=== PATIENT | female | born 1950 | race Caucasian/White ===

== ENCOUNTER 2017-12-22 10:56 | Outpatient (CLI) | payer BC, MEDICARE ==
[~2017-12-22] VITALS: Ht 157.5 cm; Wt 95.3 kg
[2017-12-22 11:20] VITALS: BP 141/70
[2017-12-22] MEDS ORDERED: vitamin a PO (12:04)
[2017-12-22] MEDS ORDERED: DULO60CA58 PO (12:04)
[2017-12-22] MEDS ORDERED: OMEP20TA7 PO (12:04)
[2017-12-22] MEDS ORDERED: VITA1TAB17 PO (12:04)
[2017-12-22] MEDS ORDERED: LORA10TA76 PO (12:04)
[2017-12-22] MEDS ORDERED: ASCO10006 PO (12:04)
[2017-12-22] MEDS ORDERED: CALC-697 PO (12:04)
[2017-12-22] MEDS ORDERED: ASPI-586 PO (12:04)
[2017-12-22] MEDS ORDERED: ANAS1TAB7 PO (12:04)
[2017-12-22] MEDS ORDERED: VITA400C58 PO (12:04)
[2018-01-19] MEDS ORDERED: ACHD5005 PO (09:42)
[2018-01-19] MEDS ORDERED: CEPH500C PO (09:42)
== END 2017-12-22 11:30 | disposition home or self-care (01) ==
LOC: PREOP 10:56
PROVIDERS: ATTEND Podiatrist Foot & Ankle Surgery
DX: Z01.818 Encounter for other preprocedural examination (principal); Z11.2 Encounter for screening for other bacterial diseases; M20.21 Hallux rigidus, right foot
CPT/HCPCS: 87081

== ENCOUNTER 2018-01-19 06:25 | Day surgery (SDC) | payer BC, MEDICARE ==
[~2018-01-19] VITALS: Ht 157.5 cm; Wt 95.3 kg
[~2018-01-19 06:25] MED LIST: ANAS1TAB7 PO; ASCO10006 PO; ASPI-586 PO; CALC-697 PO; DULO60CA58 PO; LORA10TA76 PO; OMEP20TA7 PO; VITA1TAB17 PO; VITA400C58 PO; vitamin a PO
[2018-01-19 06:30] VITALS: BP 144/78
[2018-01-19] MEDS ORDERED: ceFAZolin INJECTION 1,000 MG in NS (IVPB) 50 ML IV ONE (06:30)
--- OUTSIDE RECORDS SUMMARY | 2018-01-19 06:38 | XMS REPORT ---
Author Author [email or web address] Medical Staff Organization [facility] Address [address], [place] [address] Phone [phone] Summary purpose TRANSITION OF CARE AUTO GENERATION Chief Complaint and Reason for Visit No authorized Reason for Visit (Admitting Diagnosis) is available for this visit. Problem list No authorized problems tracked for continuity of care are available for this visit. Encounters No authorized problems tracked for encounter diagnoses are available for this visit. 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 CT ABDOMEN AND PELVIS WITH [id number] HOURS Axial scans were reconstructed at 5 mm intervals following administration of oral and intravenous contrast. 100 mL Isovue-300 was utilized for intravenous enhancement. Comparison is made with the prior study of 10/10/2015. The liver, spleen, pancreas, and adrenal glands are normal. The gallbladder and bile ducts are unremarkable. There are small benign cortical and parapelvic renal cysts bilaterally. There are no solid renal masses. There is no mass or adenopathy in the abdomen or pelvis. The abdominal aorta shows minimal atherosclerosis. There is no free air or ascites. There are changes of prior hysterectomy. The bladder is normal. IMPRESSION: Benign renal cysts. No evidence of metastatic disease in the abdomen or pelvis. MD KARIME Mcintosh/nh01/02/2016 10:05:00 / 01/02/2016 10:12:31 cc:Dr. 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 CT ABDOMEN AND PELVIS WITH [id number] HOURS Axial scans were reconstructed at 5 mm intervals following administration of oral and intravenous contrast. 100 mL Isovue-300 was utilized for intravenous enhancement. Comparison is made with the prior study of 10/10/2015. The liver, spleen, pancreas, and adrenal glands are normal. The gallbladder and bile ducts are unremarkable. There are small benign cortical and parapelvic renal cysts bilaterally. There are no solid renal masses. There is no mass or adenopathy in the abdomen or pelvis. The abdominal aorta shows minimal atherosclerosis. There is no free air or ascites. There are changes of prior hysterectomy. The bladder is normal. IMPRESSION: Benign renal cysts. No evidence of metastatic disease in the abdomen or pelvis. Aaron Ryan MD MWRuben/vt01/02/2016 10:05:00 / 01/02/2016 10:12:31 cc:Dr. Aaron Lopez at [facility] HEATHER Taver[place] This document has been electronically Signed by: AARON RYAN MD On: Jan 02 2016 11:39A Result Amended on 2016-01-02 at 11:39:11. Previous status was [place]. History of procedures No procedures recorded for this patient visit. Functional status No functional or cognitive status observations are available for this visit. Vital signs No authorized vital signs are available for this visit. Social history No Social History or smoking status observations were recorded for this visit. ( Unknown if ever smoked.) Treatment Plan No treatment plan text is available for this visit. Hospital discharge instructions No discharge instruction text is available for this visit.
--- OUTSIDE RECORDS SUMMARY | 2018-01-19 06:38 | XMS REPORT ---
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 CT ABDOMEN AND PELVIS WITH [id number] HOURS Axial scans were reconstructed at 5 [...] / 01/02/2016 10:12:31 cc:Dr. 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 CT ABDOMEN AND PELVIS WITH [id number] HOURS Axial scans were reconstructed at 5 [...] / 01/02/2016 10:12:31 cc:Dr. Aaron Lopez at [facility] [place] This document has been electronically Signed by: AARON RYAN MD On: Jan 02 2016 11:39A Result Amended on 2016-01-02 at 11:39:11. Previous status was [place]. History of procedures No procedures recorded for [...]
--- OUTSIDE RECORDS SUMMARY | 2018-01-19 06:38 | XMS REPORT ---
Author Author [facility] [employer] [facility] Medical Staff Organization [facility] Address [address], [place] [address] Phone [phone] Care Team Providers Care Photograph Enlarger Name Role Phone FERMÍN THOMSON MD PP [phone] Summary purpose TRANSITION OF CARE AUTO GENERATION [...] visit Relevant diagnostic tests and/or laboratory data No authorized results are available for this patient visit History of procedures No procedures recorded for this patient visit. Functional status Functional Status Finding Observation Time Hearing Prob Loc none : Vision Problems yes :00 Vision Correct Dev glasses :00 Ambulation Asst Dev none :00 Bathing Assistance none :00 Eating Assistance none :00 Dressing Assistance none :00 Toileting Assistance minimal :00 Transfer Assistance minimal :00 Decline Slf Care/Mob no :00 Phys Cond Stable yes :00 Oxygen no :05 Nursing Note Pt amb off unit in good condition, denies any needs. 04-23-2015 13:10 Cognitive Status Finding Observation Time Oriented To Date 5 Yes :[address] 5 Yes :00 Name 3 Objects 3 Yes :00 Name Object in Rm 2 Yes :00 Recall 3 Objects 3 Yes : Repeats a Phrase 1 Yes : Follows Verbal Direc 3 Yes : Follows Written Dire 1 Yes : Write a Sentance 1 Yes : Draw an Object 1 Yes : Mini Mental Total 25 points : Learning Ability comprehends well : Neurological no :10 Psychological no :10 Physical no :10 Hearing no : Home Theatre Technician Needed no : Sign Language no : Emotional no :10 Vision yes :10 Laguage no :10 Financial no :10 Vital signs Type Value Date Respiration Rate 20breaths per minute : Pulse 90beats per minute : Oxygen Saturation 97% :05 BP Systolic 152mmHg :05 BP Diastolic 70mmHg :05 Temperature 99.5F :05 Height 62inches :18 Weight 196LB :18 Social history No Social History or smoking status observations were recorded for this visit. ( Unknown if ever smoked.) Treatment Plan No treatment plan text is available for this visit. Hospital discharge instructions Valuables yes Valuable Type billfold/purse PNE Vac March 2015 Flu Vac March 2015 Tetanus Vac 2013
--- OUTSIDE RECORDS SUMMARY | 2018-01-19 06:38 | XMS REPORT ---
Author Author [facility] Medical Staff Organization [facility] Address [address], [place] [address] Phone [phone] Summary purpose TRANSITION OF CARE AUTO GENERATION [...] Relevant diagnostic tests and/or laboratory data RESULTS Chemistry [id number]:24:00 Result Normal Range Units Sodium 138 134-145 mEq/l Potassium 4.3 3.5-5.1 mEq/l Chloride 104 98-107 mEq/l CO2 26.7 22-28 mEq/l Glucose 94 70-105 mg/dl BUN H 23 7-18 mg/dl Creatinine 0.78 0.6-1.0 mg/dl Calcium 9.0 8.4-10.2 mg/dl Osmolality L 279.1 280-300 mOsm/L Anion GAP L 7.3 8-16 BUN/Creatinine Ratio H 29.5 10-20 Estimated GFR 74 >=60 mL/min/1.7 Reference Lab ([facility]) [id number]:00 Result Normal Range Units CA 125 8 <35 U/mL This test was performed using the [place] Chemiluminescent method. Values obtained from different assay methods cannot be used interchangeably. CA 125 levels, regardless of value, should not be interpreted as absolute evidence of the presence or absence of disease. TEST PERFORMED AT: [facility] [address] [place] [address] RANGEL RIVERA DO,MPH Radiology Results [id number]:53:00 CT ABD/PEL W CONTRAST PACs Image DATE OF EXAM: 2015 [id number] ABD/PELV W CONTRAST : RADIOLOGY REPORT DATE OF SERVICE: 10/10/15 HISTORY: Followup breast carcinoma and fallopian tube carcinoma CT ABDOMEN AND PELVIS WITH [id number] HOURS Axial scans were obtained at 5 mm intervals following administration of oral and intravenous contrast. 100 mL Isovue-300 was utilized for intravenous enhancement. The liver and spleen are normal. The pancreas and adrenal glands are normal. There are benign cortical renal cysts bilaterally and benign parapelvic cysts in the left kidney. There are no solid renal masses. The abdominal and pelvic bowel loops are normal. There is no abdominal or pelvic mass or lymphadenopathy. There has been prior hysterectomy. The bladder is normal. IMPRESSION: Benign renal cysts. No evidence of metastatic disease or other significant abdominal or pelvic abnormality. MD KARIME Mcintosh/nv10/10/2015 14:54:00 / 10/10/2015 15:01:42 cc:Dr. Aaron Toledo This document has been electronically Signed by: On: DATE OF EXAM: 2015 [id number] ABD/PELV W CONTRAST : RADIOLOGY REPORT DATE OF SERVICE: 10/10/15 HISTORY: Followup breast carcinoma and fallopian tube carcinoma CT ABDOMEN AND PELVIS WITH [id number] HOURS Axial scans were obtained at 5 mm intervals following administration of oral and intravenous contrast. 100 mL Isovue-300 was utilized for intravenous enhancement. The liver and spleen are normal. The pancreas and adrenal glands are normal. There are benign cortical renal cysts bilaterally and benign parapelvic cysts in the left kidney. There are no solid renal masses. The abdominal and pelvic bowel loops are normal. There is no abdominal or pelvic mass or lymphadenopathy. There has been prior hysterectomy. The bladder is normal. IMPRESSION: Benign renal cysts. No evidence of metastatic disease or other significant abdominal or pelvic abnormality. MD KARIME Mcintosh/khris10/10/2015 14:54:00 / 10/10/2015 15:01:42 cc:Dr. Aaron Toledo This document has been electronically Signed by: AARON BRADLEY MD On: :53P Result Amended on 2015-10-10 at 15:53:38. Previous status was [place]. History of procedures Procedure Code Code Type Description Date Performed Performing Physician 21847 CPT-4 IMMUNOASSAY, TUMOR, CA 125 10-10-2015 AARON TOLEDO 69504 CPT-4 METABOLIC PANEL TOTAL CA 10-10-2015 AARON TOLEDO 72669 CPT-4 CT ABDOMEN&PELVIS W/CONTRAST 10-10-2015 AARON TOLEDO 60083 CPT-4 ROUTINE VENIPUNCTURE 10-10-2015 AARON TOLEDO Functional status No functional or cognitive status [...]
--- OUTSIDE RECORDS SUMMARY | 2018-01-19 06:38 | XMS REPORT ---
Author Author [facility] [employer] [facility] Medical Staff Organization [facility] Address [address], [place] [address] Phone [phone] Care Team Providers Care Tester Electronic Scale Name Role Phone FERMÍN THOMSON MD PP [phone] Summary purpose TRANSITION OF CARE AUTO GENERATION [...] :10 Physical no :10 Hearing no : Strand Galvanizer Needed no : Sign Language no : [...]
--- OUTSIDE RECORDS SUMMARY | 2018-01-19 06:38 | XMS REPORT ---
Author Author [facility] Medical Staff Organization [facility] Address [address], [place] [address] Phone [phone] Summary purpose TRANSITION OF CARE AUTO GENERATION [...] tests and/or laboratory data RESULTS Radiology Results [id number]:55:00 CT ABD/PEL W CONTRAST PACs Image DATE OF EXAM: 2015 [id number] ABD/PELV W CONTRAST : RADIOLOGY REPORT DATE OF SERVICE: 07/14/15 HISTORY: Patient is followup breast cancer of the right breast and cancer of the right fallopian tube with diagnosis in 2014. Patient received chemotherapy and radiation. CT ABDOMEN AND PELVIS WITH [id number] HOURS Images were obtained from diaphragms to below symphysis pubis. The liver shows moderate fatty infiltration diffusely. No focal lesion is seen in the liver. The gallbladder fails to show any calcified stones or wall thickening. There is no biliary ductal dilatation. The spleen is normal. The lung bases are clear. The stomach and pancreas are normal. Adrenal glands are normal. No aneurysm of aorta is seen. Both kidneys fail to show any calculi or hydronephrosis. There are several small cysts in each kidney as well as fairly prominent parapelvic cyst on the left and minimal parapelvic cyst on the right. The ureters are normal. Bowel is normal. The appendix has been removed. There has been hysterectomy and oophorectomy. No mesenteric mass or ascites are seen. No adenopathy is identified in the abdomen or pelvis. IMPRESSION: Negative study with no evidence of metastatic disease. There is fatty infiltration of the liver diffusely, but without focal lesion and parapelvic cysts involving kidneys. DO CARLOS Beltran/nm 07/14/2015 09:17: / 07/14/2015 09:27:34 cc:Dr. Aaron Gomez This document has been electronically Signed by: On: DATE OF EXAM: 2015 [id number] ABD/PELV W CONTRAST : RADIOLOGY REPORT DATE OF SERVICE: 07/14/15 HISTORY: Patient is followup breast cancer of the right breast and cancer of the right fallopian tube with diagnosis in 2014. Patient received chemotherapy and radiation. CT ABDOMEN AND PELVIS WITH [id number] HOURS Images were obtained from diaphragms to below symphysis pubis. The liver shows moderate fatty infiltration diffusely. No focal lesion is seen in the liver. The gallbladder fails to show any calcified stones or wall thickening. There is no biliary ductal dilatation. The spleen is normal. The lung bases are clear. The stomach and pancreas are normal. Adrenal glands are normal. No aneurysm of aorta is seen. Both kidneys fail to show any calculi or hydronephrosis. There are several small cysts in each kidney as well as fairly prominent parapelvic cyst on the left and minimal parapelvic cyst on the right. The ureters are normal. Bowel is normal. The appendix has been removed. There has been hysterectomy and oophorectomy. No mesenteric mass or ascites are seen. No adenopathy is identified in the abdomen or pelvis. IMPRESSION: Negative study with no evidence of metastatic disease. There is fatty infiltration of the liver diffusely, but without focal lesion and parapelvic cysts involving kidneys. DO CARLOS Beltran/khris 07/14/2015 09:17: / 07/14/2015 09:27:34 cc:Dr. Aaron Gomez This document has been electronically Signed by: BONNY COOLEY DO On: 20152:55P Result Amended on 2015-07-14 at 14:55:13. Previous status was [place]. History of procedures No procedures recorded for [...]
--- OUTSIDE RECORDS SUMMARY | 2018-01-19 06:38 | XMS REPORT ---
Author Author [facility] Medical Staff Organization [facility] Address [address], [place] [address] Phone [phone] Summary purpose TRANSITION OF CARE AUTO GENERATION [...] diagnostic tests and/or laboratory data RESULTS Chemistry [id number]:24:00 Result Normal Range Units Sodium 138 134-145 mEq/l Potassium 4.3 3.5-5.1 mEq/l Chloride 104 98-107 mEq/l CO2 26.7 22-28 mEq/l Glucose 94 70-105 mg/dl BUN H 23 7-18 mg/dl Creatinine 0.78 0.6-1.0 mg/dl Calcium 9.0 8.4-10.2 mg/dl Osmolality L 279.1 280-300 mOsm/L Anion GAP L 7.3 8-16 BUN/Creatinine Ratio H 29.5 10-20 Estimated GFR 74 >=60 mL/min/1.7 Radiology Results [id number]:00 CT ABD/PEL W CONTRAST PACs Image DATE OF EXAM: 2015 [id number] ABD/PELV W CONTRAST : RADIOLOGY REPORT DATE OF SERVICE: 10/10/15 HISTORY: Followup breast carcinoma and fallopian tube carcinoma CT ABDOMEN AND PELVIS WITH [id number] HOURS Axial scans were obtained at 5 [...] significant abdominal or pelvic abnormality. MD KARIME Mcintosh/va10/10/2015 14:54:00 10/10/2015 15:01:42 cc:Dr. Aaron Gomez This document has been electronically Signed by: On: DATE OF EXAM: 2015 [id number] ABD/PELV W CONTRAST : RADIOLOGY REPORT DATE OF SERVICE: 10/10/15 HISTORY: Followup breast carcinoma and fallopian tube carcinoma CT ABDOMEN AND PELVIS WITH [id number] HOURS Axial scans were obtained at 5 [...] significant abdominal or pelvic abnormality. MD KARIME Mcintosh/va10/10/2015 14:54:00 / 10/10/2015 15:01:42 cc:Dr. Aaron Gomez This document has been electronically Signed by: AARON BRADLEY MD On: 20153:53P Result Amended on 2015-10-10 at 15:53:38. Previous status was [place]. History of procedures No procedures recorded for [...]
--- OUTSIDE RECORDS SUMMARY | 2018-01-19 06:38 | XMS REPORT ---
Author Author [facility] Medical Staff Organization [facility] Address [address], [place] [address] Phone [phone] Summary purpose TRANSITION OF CARE AUTO GENERATION [...] tests and/or laboratory data RESULTS Radiology Results [id number]:55:00 CT ABD/PEL W CONTRAST PACs Image DATE OF EXAM: 2015 [id number] ABD/PELV W CONTRAST : RADIOLOGY REPORT DATE OF SERVICE: 07/14/15 HISTORY: Patient is followup breast cancer of the right breast and cancer of the right fallopian tube with diagnosis in 2014. Patient received chemotherapy and radiation. CT ABDOMEN AND PELVIS WITH [id number] HOURS Images were obtained from diaphragms to [...] focal lesion and parapelvic cysts involving kidneys. Bonny Cooley DO /ak 07/14/2015 09:17: / 07/14/2015 09:27:34 cc:Dr. Aaron Toledo This document has been electronically Signed by: On: DATE OF EXAM: 2015 [id number] ABD/PELV W CONTRAST : RADIOLOGY REPORT DATE OF SERVICE: 07/14/15 HISTORY: Patient is followup breast cancer of the right breast and cancer of the right fallopian tube with diagnosis in 2014. Patient received chemotherapy and radiation. CT ABDOMEN AND PELVIS WITH [id number] HOURS Images were obtained from diaphragms to [...] focal lesion and parapelvic cysts involving kidneys. Bonny Cooley DO /ak 07/14/2015 09:17: / 07/14/2015 09:27:34 cc:Dr. Aaron Toledo This document has been electronically Signed by: BONNY COOLEY DO On: 20152:55P Result Amended on 2015-07-14 at 14:55:13. Previous status was [place]. History of procedures Procedure Code Code Type Description Date Performed Performing Physician 78709 CPT-4 CT ABDOMEN&PELVIS W/CONTRAST 07-14-2015 AARON TOLEDO Q9967 CPT-4 LOCM 300-399MG/ML IODINE,1ML 07-14-2015 AARON TOLEDO Functional status No functional or [...]
--- OUTSIDE RECORDS SUMMARY | 2018-01-19 06:39 | XMS REPORT | Clinical Summary ---
Author Author Admin, Ez Organization [facility] Address Unknown Phone Unavailable Allergies, Adverse Reactions, Alerts Allergy Name Reaction Description Start Date Severity Status Provider SULFA facial swelling Critical Active Jocelyne Naff CAUSTIC PREPARER Conditions or Problems Problem Name Problem Code Onset Date Status Entry Date Provider Comment Standard Description Annotate G E R D 530.81 Active Jocelyne Naff CAUSTIC PREPARER Esophageal reflux FH COLON CANCER V16.0 Active Jocelyne Naff CAUSTIC PREPARER Family history of malignant neoplasm of gastrointestinal tract ESOPHAGEAL STRICTURE 530.3 Resolved Marta Viramontes APRN Stricture and stenosis of esophagus CAROTID ARTERY STENOSIS, RIGHT 433.10 Active Rikki Stearns PA Occlusion and stenosis of carotid artery, without mention of cerebral infarction HEALTH SCREENING V70.0 Active Rose Darnell LPN Routine general medical examination at a health care facility Benign positional vertigo 386.11 Resolved Marta Viramontes APRN Benign paroxysmal positional vertigo Breast microcalcification 793.81 Ruled out Jennifer Chun MD PhD Mammographic microcalcification Abnormal Mammogram 793.80 Resolved Jennifer Chun MD PhD Abnormal mammogram, unspecified Routine gynecological examination V72.31 Resolved Marta Viramontes APRN Routine gynecological examination Postmenopausal status V49.81 Active Chante REYES Asymptomatic postmenopausal status (age-related) (natural) Breast cancer 174.9 Resolved Marta Viramontes APRN Malignant neoplasm of breast (female), unspecified Vitamin D deficiency 268.9 Active Jennifer Chun MD PhD Unspecified vitamin D deficiency Soft tissue infection 528.9 Resolved Rikki Harms PA Other and unspecified diseases of the oral soft tissues Abscess, skin 682.9 Resolved Rikki Harms PA Cellulitis and abscess of unspecified sites Cellulitis, 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.9 Resolved Rikki Harms PA Cellulitis and abscess of unspecified sites Rash 782.1 Resolved Rikki Harms PA Rash and other nonspecific skin eruption Adenocarcinoma, fallopian tube, 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 Kailee Rachel RMA Malignant neoplasm of fallopian tube Adenocarcinoma, right breast 174.9 Active Alfreda Anthony SHEARING MACHINE TENDER Malignant neoplasm of breast (female), unspecified Female breast cancer, right upper-outer quadrant 174.4 Resolved Marta Yokum SUGARCANE RESEARCH TECHNICIAN Malignant neoplasm of upper-outer quadrant of female breast Upper respiratory infection, acute 465.9 Resolved Rikki Harms PA Acute upper respiratory infections of unspecified site Chemotherapy V58.11 Resolved Rikki Harms PA Encounter for antineoplastic chemotherapy Cough, chronic 786.2 Resolved Rikki Harms PA Cough Ingrown toenail, left 703.0 Resolved Marta Yokum SUGARCANE RESEARCH TECHNICIAN Ingrowing nail cellulitis, finger, right 681.00 Resolved Marta Yokum SUGARCANE RESEARCH TECHNICIAN Cellulitis and abscess of finger, unspecified Cough 786.2 Resolved Marta Yokum SUGARCANE RESEARCH TECHNICIAN Cough Bronchitis, acute 466.0 Resolved Marta Yokum SUGARCANE RESEARCH TECHNICIAN Acute bronchitis Preoperative examination V72.84 Active Marta Yokum SUGARCANE RESEARCH TECHNICIAN Preoperative examination, unspecified Body Mass Index 39.0-39.9 Adult Active Marta Yokum SUGARCANE RESEARCH TECHNICIAN Body Mass Index 39.0-39.9, adult Encounter for general adult medical examination without abnormal findings V70.0 Active Marta Viramontes APRN Routine general medical examination at a health care facility Obesity, BMI 35-39.9, adult 278.00 Active Marta Viramontes APRN Obesity, unspecified Asthma, intermittent, mild 493.90 Active Marta Viramontes SUGARCANE RESEARCH TECHNICIAN Asthma, unspecified ESOPHAGEAL STRICTURE ICD-530.3 Inactive Marta Viramontes SUGARCANE RESEARCH TECHNICIAN Benign positional vertigo ICD-386.11 Inactive Marta Viramontes SUGARCANE RESEARCH TECHNICIAN Abnormal Mammogram ICD-793.80 Inactive Jennifer Chun MD PhD Routine gynecological examination ICD-V72.31 Inactive Marta Viramontes SUGARCANE RESEARCH TECHNICIAN Breast cancer ICD-174.9 Inactive Marta Viramontes SUGARCANE RESEARCH TECHNICIAN Breast microcalcification ICD-793.81 Inactive Jennifer Chun MD PhD Cellulitis, 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 Rikki Harms PA Rash ICD-782.1 Inactive Rikki Harms PA Female breast cancer, right upper-outer quadrant ICD-174.4 01/05 Inactive Marta Maganaum SUGARCANE RESEARCH TECHNICIAN Upper respiratory infection, acute ICD-465.9 Inactive Rikki Harms PA Chemotherapy ICD-V58.11 Inactive Rikki Harms PA Cough, chronic ICD-786.2 Inactive Rikki Harms PA Soft tissue infection ICD-528.9 Inactive Rikki Harms PA cellulitis, finger, right ICD-681.00 Inactive Marta Viramontes CORONA Cough ICD-786.2 Inactive Marta Viramontes CORONA Bronchitis, acute ICD-466.0 Inactive Marta Viramontes CORONA Abscess, skin ICD-682.9 Inactive Rikki GRANADOS Ingrown toenail, left ICD-703.0 Inactive Marta Viramontes CORONA Medication List Medication Instructions Start Date Stop Date Generic Name NDC Status Provider Patient Instruction DULOXETINE HCL 60 MG ORAL CAPSULE DELAYED RELEASE PARTICLES 1 pill daily, for depression DULOXETINE HCL 91573185370 Active Marta Viramontes APRN Active VITAMIN E 400 UNIT ORAL CAPSULE 2 twice a day VITAMIN E 68589338373 Active Marta Viramontes APRN Active NIACIN ER 500 MG ORAL TABLET EXTENDED RELEASE Take one daily NIACIN 56838302258 Active Marta Viramontes APRN Active BIOTIN 1000 MCG ORAL TABLET Take one daily BIOTIN 89732189533 No Longer Active Marta Viramontes APRN Active B COMPLEX 50 ORAL TABLET EXTENDED RELEASE Take one by mouth daily B COMPLEX VITAMINS 55819147739 Active Marta Viramontes APRN Active TUSSIONEX PENNKINETIC ER 10-8 MG/5ML ORAL SUSPENSION EXTENDED RELEASE 5ml po q12hr PRN Cough HYDROCOD POLST-CHLORPHEN POLST 46567774194 No Longer Active Marta Viramontes APRN Active PROAIR HFA 108 (90 BASE) MCG/ACT INHALATION AEROSOL SOLUTION 2 puffs four times a day as needed ALBUTEROL SULFATE 79142892921 No Longer Active Marta Viramontes APRN Active DOXYCYCLINE HYCLATE 100 MG ORAL CAPSULE 1 cap by mouth twice daily DOXYCYCLINE HYCLATE 24370426762 No Longer Active Marta Yokum SUGARCANE RESEARCH TECHNICIAN Active PROAIR HFA 108 (90 BASE) MCG/ACT INHALATION AEROSOL SOLUTION 2 puffs four times a day as needed ALBUTEROL SULFATE 84438191727 Active Marta Yokum SUGARCANE RESEARCH TECHNICIAN Active AUGMENTIN 875-125 MG ORAL TABLET Take one tablet twice a day with food 04/25 AMOXICILLIN-POT CLAVULANATE 24956608801 No Longer Active Marta Yokum SUGARCANE RESEARCH TECHNICIAN Active TESSALON PERLES 100 MG ORAL CAPSULE 1 to 2 tablets by mouth 3 times daily as needed for cough BENZONATATE 28651127275 No Longer Active Marta Yokum SUGARCANE RESEARCH TECHNICIAN Active AUGMENTIN 875-125 MG ORAL TABLET 1 po BID x 10 days AMOXICILLIN-POT CLAVULANATE 18007172928 No Longer Active Marta Yokum SUGARCANE RESEARCH TECHNICIAN Active MEDROL 4 MG ORAL TABLET THERAPY PACK 6 tabs on day 1, 5 tabs on day 2, 4 tabs on day 3, 3 tabs on day 4, 2 tabs on day 5, 1 tab on day 6 METHYLPREDNISOLONE 37359020784 No Longer Active Marta Yokum SUGARCANE RESEARCH TECHNICIAN Active KEFLEX 500 MG ORAL CAPSULE 1 po qid CEPHALEXIN 92364801989 No Longer Active Marta Yokum SUGARCANE RESEARCH TECHNICIAN Active TUSSIONEX PENNKINETIC ER 10-8 MG/5ML ORAL SUSPENSION EXTENDED RELEASE 5ml po q12hr PRN Cough HYDROCOD POLST-CHLORPHEN POLST 47635999009 No Longer Active Marta Yokum SUGARCANE RESEARCH TECHNICIAN Active VITAMIN D3 67036 UNIT ORAL CAPSULE 1 qWeek x 4 months for vitamin D deficiency CHOLECALCIFEROL 25480250522 Active Marta Yokum SUGARCANE RESEARCH TECHNICIAN Active CEPHALEXIN 500 MG ORAL CAPSULE Take one four times a day CEPHALEXIN 19060136422 No Longer Active Marta Yokum SUGARCANE RESEARCH TECHNICIAN Active VITAMIN C 500 MG ORAL CAPSULE Take one daily ASCORBIC ACID 89903265141 Active Rikki Harms PA Active BENZONATATE 200 MG ORAL CAPSULE One capsule tid. BENZONATATE 44788044119 No Longer Active Rikki Harms PA Active FLONASE ALLERGY RELIEF 50 MCG/ACT NASAL SUSPENSION spray twice in each nostril one time daily FLUTICASONE PROPIONATE 35884662107 No Longer Active Rikki Harms PA Active TUSSIONEX PENNKINETIC ER 10-8 MG/5ML ORAL SUSPENSION EXTENDED RELEASE 5ml po q12hr PRN Cough HYDROCOD POLST-CHLORPHEN POLST 25772351402 No Longer Active Rikki Harms PA Active ALBUTEROL SULFATE (2.5 MG/3ML) 0.083% INHALATION NEBULIZATION SOLUTION one vial per nebulizer every 4-6 hours as needed ALBUTEROL SULFATE 73636733132 No Longer Active Rikki Harms PA Active MEDROL 4 MG ORAL TABLET THERAPY PACK 6 tabs on day 1, 5 tabs on day 2, 4 tabs on day 3, 3 tabs on day 4, 2 tabs on day 5, 1 tab on day 6 METHYLPREDNISOLONE 92268816587 No Longer Active Rikki Harms PA Active LEVAQUIN 750 MG ORAL TABLET 1 po qd x 7 days LEVOFLOXACIN 87811302099 No Longer Active Rikki Harms PA Active LEVAQUIN 500 MG ORAL TABLET Take one tablet daily LEVOFLOXACIN 25804920133 No Longer Active Rikki Harms PA Active LEVAQUIN 500 MG ORAL TABLET 1 tablet by mouth daily LEVOFLOXACIN 02084492240 No Longer Active Marta Viramontes SUGARCANE RESEARCH TECHNICIAN Active CHERATUSSIN AC 100-10 MG/5ML ORAL SYRUP 1 tsp by mouth every 4 hours as needed for cough GUAIFENESIN-CODEINE 19766056040 No Longer Active Rikki Harms PA Active MUPIROCIN 2 % EXTERNAL OINTMENT Use in each nostril in am and pm MUPIROCIN 15498921865 No Longer Active Rikki Harms PA Active DOXYCYCLINE HYCLATE 100 MG ORAL CAPSULE Take one bid DOXYCYCLINE HYCLATE 04260513046 No Longer Active Rikki Harms PA Active CLARITIN 10 MG ORAL TABLET 1prn LORATADINE 87072927861 No Longer Active Jocelyne Naff CAUSTIC PREPARER Active ASPIRIN 81 MG ORAL TABLET 1qd ASPIRIN 89953564759 No Longer Active Jocelyne Naff CAUSTIC PREPARER Active DOXYCYCLINE HYCLATE 100 MG ORAL CAPSULE 1 cap by mouth twice daily DOXYCYCLINE HYCLATE 57983419835 No Longer Active Rikki Harms PA Active VITAMIN D3 91853 UNIT ORAL CAPSULE 1 pill by mouth weekly, for vitamin D deficiency CHOLECALCIFEROL 00611151151 No Longer Active Jennifer Chun MD PhD Active ANASTROZOLE 1 MG ORAL TABLET Take one by mouth daily ANASTROZOLE 80776814522 Active Jennifer Chun MD PhD Active ZITHROMAX 250 MG ORAL TABLET 2 po today, then 1 po q days 2-5 AZITHROMYCIN 13246755156 No Longer Active Rikki Harms PA Active MECLIZINE HCL 25 MG ORAL TABLET 1 prn MECLIZINE HCL 64921186382 No Longer Active Solomon Alamo MD Active CHERATUSSIN AC SYRUP prn as directed GUAIFENESIN- CODEINE SYRP 13725846957 No Longer Active Rikki Harms PA Active MULTIVITAMINS TABS 1qd MULTIPLE VITAMIN 64740191235 No Longer Active Rikki Harms PA Active OMEPRAZOLE 20 MG ORAL CAPSULE DELAYED RELEASE 1 PO Q D OMEPRAZOLE 74213296272 Active AMY Snow Active ZITHROMAX Z-CAROLYN 250 MG ORAL TABLET 2x1day,7y0spks AZITHROMYCIN 53549448813 No Longer Active Jocelyne Naff CAUSTIC PREPARER Active CHERATUSSIN AC SYRUP prn as directed CHERATUSSIN AC SYRUP GUAIFENESIN-CODEINE SYRP Inactive ALBUTEROL SULFATE (2.5 MG/3ML) 0.083% INHALATION NEBULIZATION SOLUTION one vial per nebulizer every 4-6 hours as needed ALBUTEROL SULFATE (2.5 MG/3ML) 0.083% INHALATION NEBULIZATION SOLUTION 118211 ALBUTEROL SULFATE Inactive CHERATUSSIN AC 100-10 MG/5ML ORAL SYRUP 1 tsp by mouth every 4 hours as needed for cough CHERATUSSIN AC 100-10 MG/5ML ORAL SYRUP 828451 GUAIFENESIN-CODEINE Inactive CLARITIN 10 MG ORAL TABLET 1prn CLARITIN 10 MG ORAL TABLET 105902 LORATADINE Inactive DOXYCYCLINE HYCLATE 100 MG ORAL CAPSULE Take one bid DOXYCYCLINE HYCLATE 100 MG ORAL CAPSULE 5727582 DOXYCYCLINE HYCLATE Inactive DOXYCYCLINE HYCLATE 100 MG ORAL CAPSULE 1 cap by mouth twice daily DOXYCYCLINE HYCLATE 100 MG ORAL CAPSULE 8171541 DOXYCYCLINE HYCLATE Inactive DOXYCYCLINE HYCLATE 100 MG ORAL CAPSULE 1 cap by mouth twice daily DOXYCYCLINE HYCLATE 100 MG ORAL CAPSULE 6748958 DOXYCYCLINE HYCLATE Inactive KEFLEX 500 MG ORAL CAPSULE 1 po qid KEFLEX 500 MG ORAL CAPSULE 629292 CEPHALEXIN Inactive MULTIVITAMINS TABS 1qd MULTIVITAMINS TABS MULTIPLE VITAMIN Inactive ASPIRIN 81 MG ORAL TABLET 1qd ASPIRIN 81 MG ORAL TABLET ASPIRIN Inactive CEPHALEXIN 500 MG ORAL CAPSULE Take one four times a day CEPHALEXIN 500 MG ORAL CAPSULE 368306 CEPHALEXIN Inactive MUPIROCIN 2 % EXTERNAL OINTMENT Use in each nostril in am and pm MUPIROCIN 2 % EXTERNAL OINTMENT 555560 MUPIROCIN Inactive TESSALON PERLES 100 MG ORAL CAPSULE 1 to 2 tablets by mouth 3 times daily as needed for cough TESSALON PERLES 100 MG ORAL CAPSULE 535704 BENZONATATE Inactive MECLIZINE HCL 25 MG ORAL TABLET 1 prn MECLIZINE HCL 25 MG ORAL TABLET 839555 MECLIZINE HCL Inactive AUGMENTIN 875-125 MG ORAL TABLET 1 po BID x 10 days AUGMENTIN 875-125 MG ORAL TABLET 723848 AMOXICILLIN-POT CLAVULANATE Inactive AUGMENTIN 875-125 MG ORAL TABLET Take one tablet twice a day with food 04/25 AUGMENTIN 875-125 MG ORAL TABLET 423279 AMOXICILLIN-POT CLAVULANATE Inactive LEVAQUIN 500 MG ORAL TABLET 1 tablet by mouth daily LEVAQUIN 500 MG ORAL TABLET 478390 LEVOFLOXACIN Inactive LEVAQUIN 500 MG ORAL TABLET Take one tablet daily LEVAQUIN 500 MG ORAL TABLET 264745 LEVOFLOXACIN Inactive ZITHROMAX 250 MG ORAL TABLET 2 po today, then 1 po q days 2-5 ZITHROMAX 250 MG ORAL TABLET 652472 AZITHROMYCIN Inactive BENZONATATE 200 MG ORAL CAPSULE One capsule tid. BENZONATATE 200 MG ORAL CAPSULE 554576 BENZONATATE Inactive LEVAQUIN 750 MG ORAL TABLET 1 po qd x 7 days LEVAQUIN 750 MG ORAL TABLET 938547 LEVOFLOXACIN Inactive ZITHROMAX Z-CAROLYN 250 MG ORAL TABLET 2x1day,6h3syln ZITHROMAX Z-CAROLYN 250 MG ORAL TABLET 073189 AZITHROMYCIN Inactive BIOTIN 1000 MCG ORAL TABLET Take one daily BIOTIN 1000 MCG ORAL TABLET 945587 BIOTIN Inactive PROAIR HFA 108 (90 BASE) MCG/ACT INHALATION AEROSOL SOLUTION 2 puffs four times a day as needed PROAIR HFA 108 (90 BASE) MCG/ACT INHALATION AEROSOL SOLUTION ALBUTEROL SULFATE Inactive VITAMIN D3 43355 UNIT ORAL CAPSULE 1 pill by mouth weekly, for vitamin D deficiency VITAMIN D3 47664 UNIT ORAL CAPSULE CHOLECALCIFEROL Inactive FLONASE ALLERGY RELIEF 50 MCG/ACT NASAL SUSPENSION spray twice in each nostril one time daily FLONASE ALLERGY RELIEF 50 MCG/ ACT NASAL SUSPENSION 0986016 FLUTICASONE PROPIONATE Inactive MEDROL 4 MG ORAL TABLET THERAPY PACK 6 tabs on day 1, 5 tabs on day 2, 4 tabs on day 3, 3 tabs on day 4, 2 tabs on day 5, 1 tab on day 6 MEDROL 4 MG ORAL TABLET THERAPY PACK 056016 METHYLPREDNISOLONE Inactive MEDROL 4 MG ORAL TABLET THERAPY PACK 6 tabs on day 1, 5 tabs on day 2, 4 tabs on day 3, 3 tabs on day 4, 2 tabs on day 5, 1 tab on day 6 MEDROL 4 MG ORAL TABLET THERAPY PACK 406666 METHYLPREDNISOLONE Inactive TUSSIONEX PENNKINETIC ER 10-8 MG/5ML ORAL SUSPENSION EXTENDED RELEASE 5ml po q12hr PRN Cough TUSSIONEX PENNKINETIC ER 10-8 MG/5ML ORAL SUSPENSION EXTENDED RELEASE HYDROCOD POLST-CHLORPHEN POLST Inactive TUSSIONEX PENNKINETIC ER 10-8 MG/5ML ORAL SUSPENSION EXTENDED RELEASE 5ml po q12hr PRN Cough TUSSIONEX PENNKINETIC ER 10-8 MG/5ML ORAL SUSPENSION EXTENDED RELEASE HYDROCOD POLST-CHLORPHEN POLST Inactive TUSSIONEX PENNKINETIC ER 10-8 MG/5ML ORAL SUSPENSION EXTENDED RELEASE 5ml po q12hr PRN Cough TUSSIONEX PENNKINETIC ER 10-8 MG/5ML ORAL SUSPENSION EXTENDED RELEASE HYDROCOD POLST-CHLORPHEN POLST Inactive Vital Signs Date Name Value Unit Range Description blood pressure, diastolic, repeated by physician 65 BP rivera blood pressure, diastolic 65 mm[Hg] BP rivera blood pressure, systolic, repeated by physician 140 BP sys blood pressure, systolic 140 mm[Hg] BP sys height E&M 61.5 [in_us] Bdy height pulse rate E&M 86 /min Heart rate temperature E&M 98.9 [degF] Body temperature weight E&M 211 [lb_av] Weight Measured blood pressure, diastolic 61 mm[Hg] BP rivera blood pressure, systolic 122 mm[Hg] BP sys height E&M 62 [in_us] Bdy height pulse rate E&M 83 /min Heart rate temperature E&M 99.0 [degF] Body temperature weight E&M 202 [lb_av] Weight Measured Diagnostic Results Date Name Value Unit Range Description Lab Report: CBC - Hematology leukocyte count, blood 6.5 10^3/MM^3 10*3/mm3 4.6-10.2 erythrocyte (RBC) count 4.17 10^6/MM^3 10*6/mm3 3.80-5.80 hemoglobin, blood 12.7 g/dL 12.0-16.0 hematocrit, blood 39.0 % 37.0-47.0 mean corpuscular volume, RBC 93 fL 80-97 mean corpuscular hemoglobin, RBC 30.3 pg 27.0-31.2 mean corpuscular hemoglobin concentration, RBC 32.5 G/DL % 31.8- 35.4 red blood cell distribution width 13.8 % 11.6-14.8 platelet count 277 10^3/MM^3 10*3/mm3 142-424 Lab Report: Comp. Metabolic Panel, Lipid Panel, Thyroid Stimulating Horm ... - Chemistry sodium, serum 145 mmol/L 468-446 0096/07/23 carbon dioxide, venous blood 31.2 mmol/L 21.0-32.0 potassium, serum 4.2 mmol/L 3.5-5.2 chloride, serum 108 mmol/L 98-107 blood glucose 105 mg/dL 65-95 urea nitrogen, blood 16 mg/dL 7-18 creatinine, serum 0.77 mg/dL 0.60-1.30 alanine aminotransferase (SGPT), serum 30 U/L 12-78 aspartate aminotransferase (SGOT), serum 21 U/L 15-37 calcium, serum 8.9 mg/dL 8.5-10.1 bilirubin, serum, total 0.30 mg/dL 0.00-1.00 cholesterol, serum 181 mg/dL 187-216 7649/07/23 triglyceride, serum, fasting 108 mg/dL 30-200 HDL cholesterol, serum 63 mg/dL 32-60 LDL cholesterol, serum 96 mg/dL 0-130 TSH 2.23 m[iU]/mL 0.36-3.74 Encounters Code Encounter Date Provider Facility CPT-61832 Level 3 Est. Patient 22:53:06 TRANSPORTATION PLANNER Marta Ana M [facility] CPT-46028 Level 3 Est. Patient 16:07:34 CDT [facility] CPT-71184 Level 3 Est. Patient 15:39:01 [facility] CPT-47816 Level 4 Est. Patient 17:31:07 CDT Marta Ana M [facility] CPT-28502 Level 3 Est. Patient 05:11:40 CDT Rikki GRANADOS [facility] CPT-63007 Level 2 Est. Patient 14:30:43 TRANSPORTATION PLANNER Marta Viramontes [facility] CPT-61682 Level 4 Est. Patient 09:14:36 TRANSPORTATION PLANNER Rikki GRANADOS [facility] CPT-51363 Level 2 Est. Patient 09:07:32 CDT Marta Viramontes [facility] CPT-78330 Level 4 Est. Patient 11:55:00 CDT Rikki GRANADOS [facility] CPT-45900 Level 3 Est. Patient 13:25:16 CDT Jennifer Chun MD PhD [facility] CPT-26331 Level 3 Est. Patient 17:31:22 CDT Solomon Alamo MD [facility] CPT-58142 Level 3 Est. Patient 08:02:14 CDT Solomon Alamo MD [facility] CPT-21473 Level 3 Est. Patient 17:23:53 CDT Rikki Stearns [facility] CPT-25926 Level 3 Est. Patient 11:22:41 CDT Darryn Hearn [facility] Procedures Code Procedure Name Date Entry Date Standard Description CPT-PV Prev. Care Visit 17:50:16 CDT CPT-00566 TSH - LAB USE ONLY 12:16:46 CDT CPT-09774 Lipid - LAB USE ONLY 12:16:46 CDT CPT-14994 CMP - LAB USE ONLY 12:16:46 CDT CPT-89078 CBC - LAB USE ONLY 12:16:46 CDT CPT-55370 Venipuncture Draw Fee 12:16:46 CDT CPT-83460 Venipuncture Draw Fee 16:09:39 CDT CPT-41795 Venipuncture Draw Fee 12:43:48 TRANSPORTATION PLANNER CPT-18938 BMP - LAB USE ONLY 10:32:33 TRANSPORTATION PLANNER CPT-02303 Venipuncture Draw Fee 10:32:33 TRANSPORTATION PLANNER CPT-52245 Magnesium - LAB USE ONLY 09:54:30 CDT CPT-18147 TSH - LAB USE ONLY 09:54:30 CDT CPT-49212 Lipid - LAB USE ONLY 09:54:30 CDT CPT-35414 Venipuncture Draw Fee 09:54:29 CDT CPT-64319 Venipuncture Draw Fee 18:27:04 CDT CPT-62521 Chest 2V Frontal and Lat 10:57:00 TRANSPORTATION PLANNER CPT-87584 Venipuncture Draw Fee 10:56:59 TRANSPORTATION PLANNER CPT-11251 Venipuncture Draw Fee 09:22:28 TRANSPORTATION PLANNER CPT-76908 Chest 2V Frontal and Lat 09:22:27 TRANSPORTATION PLANNER CPT-I/D I/D Abscess 09:43:13 CDT CPT-22319 Venipuncture Draw Fee 08:16:46 TRANSPORTATION PLANNER CPT-36534 Venipuncture Draw Fee 08:18:55 TRANSPORTATION PLANNER CPT-16265 Venipuncture Draw Fee 08:31:18 TRANSPORTATION PLANNER CPT-49765 Venipuncture Draw Fee 11:42:52 TRANSPORTATION PLANNER CPT-15027 Venipuncture Draw Fee 13:26:37 TRANSPORTATION PLANNER CPT-32796 Venipuncture Draw Fee 09:23:38 TRANSPORTATION PLANNER CPT-000 Give Appropriate Tetanus Booster 10:23:50 CDT CPT-84823 Bone Density 08:28:45 CDT CPT-21438 Bone Density 11:35:15 CDT CPT-PV Prev. Care Visit 12:19:00 CDT CPT-79023 Venipuncture Draw Fee 15:02:58 CDT
--- OUTSIDE RECORDS SUMMARY | 2018-01-19 06:40 | XMS REPORT | Clinical Summary ---
Author Author Admin, [facility] Organization [facility] [place] Address Unknown Phone Unavailable Allergies, Adverse Reactions, Alerts Allergy Name Reaction Description Start Date Severity Status Provider SULFA facial swelling Critical Active Jocelyne Naff GARMENT STEAMER Conditions or Problems Problem Name Problem Code Onset Date Status Entry Date Provider Comment Standard Description Annotate G E R D 530.81 Active Jocelyne Naff GARMENT STEAMER Esophageal reflux FH COLON CANCER V16.0 Active Jocelyne Naff GARMENT STEAMER Family history of malignant neoplasm of gastrointestinal [...] Adenocarcinoma, right breast 174.9 Active Alfreda Anthony DIGITIZER OPERATOR Malignant neoplasm of breast (female), unspecified Female breast cancer, right upper-outer quadrant 174.4 Resolved Marta Yokum APPLICATION SYSTEMS ENGINEER Malignant neoplasm of upper-outer quadrant of female breast Upper respiratory infection, acute 465.9 Resolved Rikki Harms PA Acute upper respiratory infections of unspecified site Chemotherapy V58.11 Resolved Rikki Harms PA Encounter for antineoplastic chemotherapy Cough, chronic 786.2 Resolved Rikki Harms PA Cough Ingrown toenail, left 703.0 Resolved Marta Yokum APPLICATION SYSTEMS ENGINEER Ingrowing nail cellulitis, finger, right 681.00 Resolved Marta Yokum APPLICATION SYSTEMS ENGINEER Cellulitis and abscess of finger, unspecified Cough 786.2 Resolved Marta Yokum APPLICATION SYSTEMS ENGINEER Cough Bronchitis, acute 466.0 Resolved Marta Yokum APPLICATION SYSTEMS ENGINEER Acute bronchitis Preoperative examination V72.84 Active Marta Yokum APPLICATION SYSTEMS ENGINEER Preoperative examination, unspecified Body Mass Index 39.0-39.9 Adult Active Marta Yokum APPLICATION SYSTEMS ENGINEER Body Mass Index 39.0-39.9, adult Encounter for general adult medical examination without abnormal findings V70.0 Active aMrta Viramontes APRN Routine general medical examination at a health care facility Obesity, BMI 35-39.9, adult 278.00 Active Marta Viramontes APRN Obesity, unspecified Asthma, intermittent, mild 493.90 Active Marta Viramontes APRN Asthma, unspecified ESOPHAGEAL STRICTURE ICD-530.3 Inactive Marta Viramontes APPLICATION SYSTEMS ENGINEER Benign positional vertigo ICD-386.11 Inactive Marta Viramontes APPLICATION SYSTEMS ENGINEER Breast microcalcification ICD-793.81 Inactive Jennifer Chun MD PhD Abnormal Mammogram ICD-793.80 Inactive Jennifer Chun MD PhD Routine gynecological examination ICD-V72.31 Inactive Marta Viramontes APPLICATION SYSTEMS ENGINEER Breast cancer ICD-174.9 Inactive Marta Viramontes APPLICATION SYSTEMS ENGINEER Soft tissue infection ICD-528.9 Inactive Rikki Stearns PA Abscess, skin ICD-682.9 Inactive Rikki Stearns PA Cellulitis, 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 Rikki Stearns PA Rash ICD-782.1 Inactive Rikki Stearns PA Female breast cancer, right upper-outer quadrant ICD-174.4 01/05 Inactive Marta Viramontes APPLICATION SYSTEMS ENGINEER Upper respiratory infection, acute ICD-465.9 Inactive Rikki Stearns PA Chemotherapy ICD-V58.11 Inactive Rikki GRANADOS Cough, chronic ICD-786.2 Inactive Rikki GRANADOS Ingrown toenail, left ICD-703.0 Inactive Marta Viramontes CORONA cellulitis, finger, right ICD-681.00 Inactive Marta Viramontes CORONA Cough ICD-786.2 Inactive Marta Viramontes CORONA Bronchitis, acute ICD-466.0 Inactive Marta Viramontes CORONA Medication List Medication Instructions Start Date Stop Date Generic Name NDC Status Provider Patient Instruction DULOXETINE HCL 60 MG ORAL CAPSULE DELAYED RELEASE PARTICLES 1 pill daily, for depression DULOXETINE HCL 36885552371 Active Marta Viramontes APRN Active VITAMIN E 400 UNIT ORAL CAPSULE 2 twice a day VITAMIN E 46935427173 Active Marta Viramontes APRN Active NIACIN ER 500 MG ORAL TABLET EXTENDED RELEASE Take one daily NIACIN 11442256241 Active Marta Viramontes APRN Active BIOTIN 1000 MCG ORAL TABLET Take one daily BIOTIN 26459271438 No Longer Active Marta Viramontes APRN Active B COMPLEX 50 ORAL TABLET EXTENDED RELEASE Take one by mouth daily B COMPLEX VITAMINS 26274694890 Active Marta Viramontes APRN Active TUSSIONEX PENNKINETIC ER 10-8 MG/5ML ORAL SUSPENSION EXTENDED RELEASE 5ml po q12hr PRN Cough HYDROCOD POLST-CHLORPHEN POLST 32642052392 No Longer Active Marta Viramontes APRN Active PROAIR HFA 108 (90 BASE) MCG/ACT INHALATION AEROSOL SOLUTION 2 puffs four times a day as needed ALBUTEROL SULFATE 02510861836 No Longer Active Marta Viramontes APRN Active DOXYCYCLINE HYCLATE 100 MG ORAL CAPSULE 1 cap by mouth twice daily DOXYCYCLINE HYCLATE 59339309887 No Longer Active Marta Yokum APPLICATION SYSTEMS ENGINEER Active PROAIR HFA 108 (90 BASE) MCG/ACT INHALATION AEROSOL SOLUTION 2 puffs four times a day as needed ALBUTEROL SULFATE 82385247096 Active Marta Yokum APPLICATION SYSTEMS ENGINEER Active AUGMENTIN 875-125 MG ORAL TABLET Take one tablet twice a day with food 04/25 AMOXICILLIN-POT CLAVULANATE 66815693387 No Longer Active Marta Yokum APPLICATION SYSTEMS ENGINEER Active TESSALON PERLES 100 MG ORAL CAPSULE 1 to 2 tablets by mouth 3 times daily as needed for cough BENZONATATE 20510611068 No Longer Active Marta Yokum APPLICATION SYSTEMS ENGINEER Active AUGMENTIN 875-125 MG ORAL TABLET 1 po BID x 10 days AMOXICILLIN-POT CLAVULANATE 65712789053 No Longer Active Marta Yokum APPLICATION SYSTEMS ENGINEER Active MEDROL 4 MG ORAL TABLET THERAPY PACK 6 tabs on day 1, 5 tabs on day 2, 4 tabs on day 3, 3 tabs on day 4, 2 tabs on day 5, 1 tab on day 6 METHYLPREDNISOLONE 35509583957 No Longer Active Marta Yokum APPLICATION SYSTEMS ENGINEER Active KEFLEX 500 MG ORAL CAPSULE 1 po qid CEPHALEXIN 38037420088 No Longer Active Marta Yokum APPLICATION SYSTEMS ENGINEER Active TUSSIONEX PENNKINETIC ER 10-8 MG/5ML ORAL SUSPENSION EXTENDED RELEASE 5ml po q12hr PRN Cough HYDROCOD POLST-CHLORPHEN POLST 18112618969 No Longer Active Marta Yokum APPLICATION SYSTEMS ENGINEER Active VITAMIN D3 30185 UNIT ORAL CAPSULE 1 qWeek x 4 months for vitamin D deficiency CHOLECALCIFEROL 61599888370 Active Marta Yokum APPLICATION SYSTEMS ENGINEER Active CEPHALEXIN 500 MG ORAL CAPSULE Take one four times a day CEPHALEXIN 92680620580 No Longer Active Marta Yokum APPLICATION SYSTEMS ENGINEER Active VITAMIN C 500 MG ORAL CAPSULE Take one daily ASCORBIC ACID 49382161044 Active Rikki Harms PA Active BENZONATATE 200 MG ORAL CAPSULE One capsule tid. BENZONATATE 71270402476 No Longer Active Rikki Harms PA Active FLONASE ALLERGY RELIEF 50 MCG/ACT NASAL SUSPENSION spray twice in each nostril one time daily FLUTICASONE PROPIONATE 78305317009 No Longer Active Rikki Harms PA Active TUSSIONEX PENNKINETIC ER 10-8 MG/5ML ORAL SUSPENSION EXTENDED RELEASE 5ml po q12hr PRN Cough HYDROCOD POLST-CHLORPHEN POLST 24637915575 No Longer Active Rikki Harms PA Active ALBUTEROL SULFATE (2.5 MG/3ML) 0.083% INHALATION NEBULIZATION SOLUTION one vial per nebulizer every 4-6 hours as needed ALBUTEROL SULFATE 69555329009 No Longer Active Rikki Harms PA Active MEDROL 4 MG ORAL TABLET THERAPY PACK 6 tabs on day 1, 5 tabs on day 2, 4 tabs on day 3, 3 tabs on day 4, 2 tabs on day 5, 1 tab on day 6 METHYLPREDNISOLONE 75546492374 No Longer Active Rikki Harms PA Active LEVAQUIN 750 MG ORAL TABLET 1 po qd x 7 days LEVOFLOXACIN 64551004054 No Longer Active Rikki Harms PA Active LEVAQUIN 500 MG ORAL TABLET Take one tablet daily LEVOFLOXACIN 46925566223 No Longer Active Rikki Harms PA Active LEVAQUIN 500 MG ORAL TABLET 1 tablet by mouth daily LEVOFLOXACIN 69478119214 No Longer Active Marta Ana M APPLICATION SYSTEMS ENGINEER Active CHERATUSSIN AC 100-10 MG/5ML ORAL SYRUP 1 tsp by mouth every 4 hours as needed for cough GUAIFENESIN-CODEINE 51832750077 No Longer Active Rikki Harms PA Active MUPIROCIN 2 % EXTERNAL OINTMENT Use in each nostril in am and pm MUPIROCIN 65356911275 No Longer Active Rikki Harms PA Active DOXYCYCLINE HYCLATE 100 MG ORAL CAPSULE Take one bid DOXYCYCLINE HYCLATE 93817735299 No Longer Active Rikki Harms PA Active CLARITIN 10 MG ORAL TABLET 1prn LORATADINE 48547105384 No Longer Active Jocelyne Naff GARMENT STEAMER Active ASPIRIN 81 MG ORAL TABLET 1qd ASPIRIN 60706520787 No Longer Active Jocelyne Naff GARMENT STEAMER Active DOXYCYCLINE HYCLATE 100 MG ORAL CAPSULE 1 cap by mouth twice daily DOXYCYCLINE HYCLATE 30915325274 No Longer Active Rikki Harms PA Active VITAMIN D3 81818 UNIT ORAL CAPSULE 1 pill by mouth weekly, for vitamin D deficiency CHOLECALCIFEROL 27719148443 No Longer Active Jennifer Chun MD PhD Active ANASTROZOLE 1 MG ORAL TABLET Take one by mouth daily ANASTROZOLE 93556612259 Active Jennifer Chun MD PhD Active ZITHROMAX 250 MG ORAL TABLET 2 po today, then 1 po q days 2-5 AZITHROMYCIN 33505922826 No Longer Active Rikki Harms PA Active MECLIZINE HCL 25 MG ORAL TABLET 1 prn MECLIZINE HCL 66820161258 No Longer Active Solomon Alamo MD Active CHERATUSSIN AC SYRUP prn as directed GUAIFENESIN- CODEINE SYRP 17301868429 No Longer Active Rikki Harms PA Active MULTIVITAMINS TABS 1qd MULTIPLE VITAMIN 76922374595 No Longer Active Rikki Harms PA Active OMEPRAZOLE 20 MG ORAL CAPSULE DELAYED RELEASE 1 PO Q D OMEPRAZOLE 11410166292 Active AMY Snow Active ZITHROMAX Z-CAROLYN 250 MG ORAL TABLET 2x1day,1b8pdmn AZITHROMYCIN 03485469976 No Longer Active Jocelyne Naff GARMENT STEAMER Active MULTIVITAMINS TABS 1qd MULTIVITAMINS TABS MULTIPLE VITAMIN Inactive CHERATUSSIN AC SYRUP prn as directed CHERATUSSIN AC SYRUP GUAIFENESIN-CODEINE SYRP Inactive MECLIZINE HCL 25 MG ORAL TABLET 1 prn MECLIZINE HCL 25 MG ORAL TABLET 935438 MECLIZINE HCL Inactive ASPIRIN 81 MG ORAL TABLET 1qd ASPIRIN 81 MG ORAL TABLET ASPIRIN Inactive CLARITIN 10 MG ORAL TABLET 1prn CLARITIN 10 MG ORAL TABLET 821096 LORATADINE Inactive DOXYCYCLINE HYCLATE 100 MG ORAL CAPSULE Take one bid DOXYCYCLINE HYCLATE 100 MG ORAL CAPSULE 8028497 DOXYCYCLINE HYCLATE Inactive MUPIROCIN 2 % EXTERNAL OINTMENT Use in each nostril in am and pm MUPIROCIN 2 % EXTERNAL OINTMENT 655153 MUPIROCIN Inactive CHERATUSSIN AC 100-10 MG/5ML ORAL SYRUP 1 tsp by mouth every 4 hours as needed for cough CHERATUSSIN AC 100-10 MG/5ML ORAL SYRUP 668345 GUAIFENESIN-CODEINE Inactive LEVAQUIN 500 MG ORAL TABLET 1 tablet by mouth daily LEVAQUIN 500 MG ORAL TABLET 437816 LEVOFLOXACIN Inactive LEVAQUIN 500 MG ORAL TABLET Take one tablet daily LEVAQUIN 500 MG ORAL TABLET 409082 LEVOFLOXACIN Inactive LEVAQUIN 750 MG ORAL TABLET 1 po qd x 7 days LEVAQUIN 750 MG ORAL TABLET 993928 LEVOFLOXACIN Inactive ALBUTEROL SULFATE (2.5 MG/3ML) 0.083% INHALATION NEBULIZATION SOLUTION one vial per nebulizer every 4-6 hours as needed ALBUTEROL SULFATE (2.5 MG/3ML) 0.083% INHALATION NEBULIZATION SOLUTION 004881 ALBUTEROL SULFATE Inactive TUSSIONEX PENNKINETIC ER 10-8 MG/5ML ORAL SUSPENSION EXTENDED RELEASE 5ml po q12hr PRN Cough TUSSIONEX PENNKINETIC ER 10-8 MG/5ML ORAL SUSPENSION EXTENDED RELEASE HYDROCOD POLST-CHLORPHEN POLST Inactive FLONASE ALLERGY RELIEF 50 MCG/ACT NASAL SUSPENSION spray twice in each nostril one time daily FLONASE ALLERGY RELIEF 50 MCG/ ACT NASAL SUSPENSION 8495574 FLUTICASONE PROPIONATE Inactive BENZONATATE 200 MG ORAL CAPSULE One capsule tid. BENZONATATE 200 MG ORAL CAPSULE 880978 BENZONATATE Inactive CEPHALEXIN 500 MG ORAL CAPSULE Take one four times a day CEPHALEXIN 500 MG ORAL CAPSULE 087845 CEPHALEXIN Inactive TUSSIONEX PENNKINETIC ER 10-8 MG/5ML ORAL SUSPENSION EXTENDED RELEASE 5ml po q12hr PRN Cough TUSSIONEX PENNKINETIC ER 10-8 MG/5ML ORAL SUSPENSION EXTENDED RELEASE HYDROCOD POLST-CHLORPHEN POLST Inactive TESSALON PERLES 100 MG ORAL CAPSULE 1 to 2 tablets by mouth 3 times daily as needed for cough TESSALON PERLES 100 MG ORAL CAPSULE 040330 BENZONATATE Inactive PROAIR HFA 108 (90 BASE) MCG/ACT INHALATION AEROSOL SOLUTION 2 puffs four times a day as needed PROAIR HFA 108 (90 BASE) MCG/ACT INHALATION AEROSOL SOLUTION ALBUTEROL SULFATE Inactive TUSSIONEX PENNKINETIC ER 10-8 MG/5ML ORAL SUSPENSION EXTENDED RELEASE 5ml po q12hr PRN Cough TUSSIONEX PENNKINETIC ER 10-8 MG/5ML ORAL SUSPENSION EXTENDED RELEASE HYDROCOD POLST-CHLORPHEN POLST Inactive BIOTIN 1000 MCG ORAL TABLET Take one daily BIOTIN 1000 MCG ORAL TABLET 787746 BIOTIN Inactive ZITHROMAX Z-CAROLYN 250 MG ORAL TABLET 2x1day,[id number] ZITHROMAX Z-CAROLYN 250 MG ORAL TABLET 391218 AZITHROMYCIN Inactive ZITHROMAX 250 MG ORAL TABLET 2 po today, then 1 po q days 2-5 ZITHROMAX 250 MG ORAL TABLET 887879 AZITHROMYCIN Inactive VITAMIN D3 37194 UNIT ORAL CAPSULE 1 pill by mouth weekly, for vitamin D deficiency VITAMIN D3 40462 UNIT ORAL CAPSULE CHOLECALCIFEROL Inactive DOXYCYCLINE HYCLATE 100 MG ORAL CAPSULE 1 cap by mouth twice daily DOXYCYCLINE HYCLATE 100 MG ORAL CAPSULE 1094054 DOXYCYCLINE HYCLATE Inactive MEDROL 4 MG ORAL TABLET THERAPY PACK 6 tabs on day 1, 5 tabs on day 2, 4 tabs on day 3, 3 tabs on day 4, 2 tabs on day 5, 1 tab on day 6 MEDROL 4 MG ORAL TABLET THERAPY PACK 127946 METHYLPREDNISOLONE Inactive KEFLEX 500 MG ORAL CAPSULE 1 po qid KEFLEX 500 MG ORAL CAPSULE 159345 CEPHALEXIN Inactive MEDROL 4 MG ORAL TABLET THERAPY PACK 6 tabs on day 1, 5 tabs on day 2, 4 tabs on day 3, 3 tabs on day 4, 2 tabs on day 5, 1 tab on day 6 MEDROL 4 MG ORAL TABLET THERAPY PACK 231886 METHYLPREDNISOLONE Inactive AUGMENTIN 875-125 MG ORAL TABLET 1 po BID x 10 days AUGMENTIN 875-125 MG ORAL TABLET 153208 AMOXICILLIN-POT CLAVULANATE Inactive AUGMENTIN 875-125 MG ORAL TABLET Take one tablet twice a day with food 04/25 AUGMENTIN 875-125 MG ORAL TABLET 714320 AMOXICILLIN-POT CLAVULANATE Inactive DOXYCYCLINE HYCLATE 100 MG ORAL CAPSULE 1 cap by mouth twice daily DOXYCYCLINE HYCLATE 100 MG ORAL CAPSULE 8803756 DOXYCYCLINE HYCLATE Inactive Vital Signs Date Name Value Unit [...] ... - Chemistry sodium, serum 145 mmol/L 360-393 7239/07/23 carbon dioxide, venous blood 31.2 mmol/L 21.0-32.0 potassium, serum 4.2 mmol/L 3.5-5.2 chloride, serum 108 mmol/L 98-107 blood glucose 105 mg/dL 65-95 urea nitrogen, blood 16 mg/dL 7-18 creatinine, serum 0.77 mg/dL 0.60-1.30 alanine aminotransferase (SGPT), serum 30 U/L 12-78 aspartate aminotransferase (SGOT), serum 21 U/L 15-37 calcium, serum 8.9 mg/dL 8.5-10.1 bilirubin, serum, total 0.30 mg/dL 0.00-1.00 cholesterol, serum 181 mg/dL 997-495 6761/07/23 triglyceride, serum, fasting 108 mg/dL 30-200 HDL cholesterol, serum 63 mg/dL 32-60 LDL cholesterol, serum 96 mg/dL 0-130 TSH 2.23 m[iU]/mL 0.36-3.74 Encounters Code Encounter Date Provider Facility CPT-21947 Level 3 Est. Patient 22:53:06 ENERGY CONSULTANT Marta Yoelizabeth [facility] CPT-63321 Level 3 Est. Patient 16:07:[address] [facility] [place] CPT-86064 Level 3 Est. Patient 15:39:01 [facility] [place] 4 Est. Patient 17:31:07 CDT Marta Viramontes [facility] CPT-95328 Level 3 Est. Patient 05:11:40 CDT Rikki Stearns [facility] CPT-80065 Level 2 Est. Patient 14:30:43 ENERGY CONSULTANT Marta Viramontes [facility] CPT-62887 Level 4 Est. Patient 09:14:36 ENERGY CONSULTANT Rikki GRANADOS [facility] CPT-65677 Level 2 Est. Patient 09:07:32 CDT Marta Viramontes [facility] CPT-57835 Level 4 Est. Patient 11:55:00 CDT Rikki GRANADOS [facility] CPT-87754 Level 3 Est. Patient 13:25:16 CDT Jennifer Chun MD [facility] CPT-19892 Level 3 Est. Patient 17:31:22 CDT Solomon Alamo MD [facility] CPT-93368 Level 3 Est. Patient 08:02:14 CDT Solomon Alamo MD [facility] CPT-67762 Level 3 Est. Patient 17:23:53 CDT Rikki Stearns [facility] CPT-73503 Level 3 Est. Patient 11:22:41 CDT Darryn Hearn [facility] Procedures Code Procedure Name Date Entry Date Standard Description CPT-PV Prev. Care Visit 17:50:16 CDT CPT-01192 TSH - LAB USE ONLY 12:16:46 CDT CPT-59478 Lipid - LAB USE ONLY 12:16:46 CDT CPT-79231 CMP - LAB USE ONLY 12:16:46 CDT CPT-86829 CBC - LAB USE ONLY 12:16:46 CDT CPT-86097 Venipuncture Draw Fee 12:16:46 CDT CPT-27240 Venipuncture Draw Fee 16:09:39 CDT CPT-93334 Venipuncture Draw Fee 12:43:48 ENERGY CONSULTANT CPT-92619 BMP - LAB USE ONLY 10:32:33 ENERGY CONSULTANT CPT-01059 Venipuncture Draw Fee 10:32:33 ENERGY CONSULTANT CPT-74763 Magnesium - LAB USE ONLY 09:54:30 CDT CPT-66340 TSH - LAB USE ONLY 09:54:30 CDT CPT-03948 Lipid - LAB USE ONLY 09:54:30 CDT CPT-46863 Venipuncture Draw Fee 09:54:29 CDT CPT-11067 Venipuncture Draw Fee 18:27:04 CDT CPT-83818 Chest 2V Frontal and Lat 10:57:00 ENERGY CONSULTANT CPT-45233 Venipuncture Draw Fee 10:56:59 ENERGY CONSULTANT CPT-62442 Venipuncture Draw Fee 09:22:28 ENERGY CONSULTANT CPT-02400 Chest 2V Frontal and Lat 09:22:27 ENERGY CONSULTANT CPT-I/D I/D Abscess 09:43:13 CDT CPT-24576 Venipuncture Draw Fee 08:16:46 ENERGY CONSULTANT CPT-35512 Venipuncture Draw Fee 08:18:55 ENERGY CONSULTANT CPT-50385 Venipuncture Draw Fee 08:31:18 ENERGY CONSULTANT CPT-55397 Venipuncture Draw Fee 11:42:52 ENERGY CONSULTANT CPT-74834 Venipuncture Draw Fee 13:26:37 ENERGY CONSULTANT CPT-19483 Venipuncture Draw Fee 09:23:38 ENERGY CONSULTANT CPT-000 Give Appropriate Tetanus Booster 10:23:50 CDT CPT-03105 Bone Density 08:28:45 CDT CPT-20013 Bone Density 11:35:15 CDT CPT-PV Prev. Care Visit 12:19:00 CDT CPT-35115 Venipuncture Draw Fee 15:02:58 CDT
--- OUTSIDE RECORDS SUMMARY | 2018-01-19 06:40 | XMS REPORT | Clinical Summary ---
Author Author Admin, [facility] Organization [facility] Address Unknown Phone Unavailable Allergies, Adverse Reactions, Alerts Allergy Name Reaction Description Start Date Severity Status Provider SULFA facial swelling Critical Active Jocelyne Naff PER DIEM Conditions or Problems Problem Name Problem Code Onset Date Status Entry Date Provider Comment Standard Description Annotate G E R D 530.81 Active Jocelyne Naff PER DIEM Esophageal reflux FH COLON CANCER V16.0 Active Jocelyne Naff PER DIEM Family history of malignant neoplasm of gastrointestinal [...] Adenocarcinoma, right breast 174.9 Active Alfreda Anthony TABLET COATER Malignant neoplasm of breast (female), unspecified Female breast cancer, right upper-outer quadrant 174.4 Resolved Marta Yokum REGISTERED NURSE [employer] Malignant neoplasm of upper-outer quadrant of female breast Upper respiratory infection, acute 465.9 Resolved Rikki Harms PA Acute upper respiratory infections of unspecified site Chemotherapy V58.11 Resolved Rikki Harms PA Encounter for antineoplastic chemotherapy Cough, chronic 786.2 Resolved Rikki Harms PA Cough Ingrown toenail, left 703.0 Resolved Marta Yokum REGISTERED NURSE [employer] Ingrowing nail cellulitis, finger, right 681.00 Resolved Marta Yokum REGISTERED NURSE [employer] Cellulitis and abscess of finger, unspecified Cough 786.2 Resolved Marta Yokum REGISTERED NURSE [employer] Cough Bronchitis, acute 466.0 Resolved Marta Yokum REGISTERED NURSE [employer] Acute bronchitis Preoperative examination V72.84 Active Marta Yokum REGISTERED NURSE [employer] Preoperative examination, unspecified Body Mass Index 39.0-39.9 Adult Active Marta Yokum REGISTERED NURSE [employer] Body Mass Index 39.0-39.9, adult Encounter for general adult medical examination without abnormal findings V70.0 Active Marta Viramontes APRN Routine general medical examination at a health care facility Obesity, BMI 35-39.9, adult 278.00 Active Marta Viramontes APRN Obesity, unspecified Asthma, intermittent, mild 493.90 Active Marta Viramontes APRN Asthma, unspecified ESOPHAGEAL STRICTURE ICD-530.3 Inactive Marta Viramontes REGISTERED NURSE [employer] Benign positional vertigo ICD-386.11 Inactive Marta Viramontes REGISTERED NURSE [employer] Breast microcalcification ICD-793.81 Inactive Jennifer Chun MD PhD Abnormal Mammogram ICD-793.80 Inactive Jennifer Chun MD PhD Routine gynecological examination ICD-V72.31 Inactive Marta Viramontes REGISTERED NURSE [employer] Breast cancer ICD-174.9 Inactive Marta Viramontes REGISTERED NURSE [employer] Soft tissue infection ICD-528.9 Inactive Rikki Stearns PA Abscess, skin ICD-682.9 Inactive Rikki Stearns PA Cellulitis, 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 Rikki Stearns PA Rash ICD-782.1 Inactive Rikki Stearns PA Female breast cancer, right upper-outer quadrant ICD-174.4 01/05 Inactive Marta Viramontes REGISTERED NURSE [employer] Upper respiratory infection, acute ICD-465.9 Inactive Rikki [...] 1 pill daily, for depression DULOXETINE HCL 00586983337 Active Marta Viramontes APRN Active VITAMIN E 400 UNIT ORAL CAPSULE 2 twice a day VITAMIN E 73380709180 Active Marta Viramontes APRN Active NIACIN ER 500 MG ORAL TABLET EXTENDED RELEASE Take one daily NIACIN 41720648672 Active Marta Viramontes APRN Active BIOTIN 1000 MCG ORAL TABLET Take one daily BIOTIN 79150819775 No Longer Active Marta Viramontes APRN Active B COMPLEX 50 ORAL TABLET EXTENDED RELEASE Take one by mouth daily B COMPLEX VITAMINS 86078326526 Active Marta Viramontes APRN Active TUSSIONEX PENNKINETIC ER 10-8 MG/5ML ORAL SUSPENSION EXTENDED RELEASE 5ml po q12hr PRN Cough HYDROCOD POLST-CHLORPHEN POLST 96274476222 No Longer Active Marta Vriamontes APRN Active PROAIR HFA 108 (90 BASE) MCG/ACT INHALATION AEROSOL SOLUTION 2 puffs four times a day as needed ALBUTEROL SULFATE 67920455015 No Longer Active Marta Viramontes APRN Active DOXYCYCLINE HYCLATE 100 MG ORAL CAPSULE 1 cap by mouth twice daily DOXYCYCLINE HYCLATE 44211886191 No Longer Active Marta Yokum REGISTERED NURSE [employer] Active PROAIR HFA 108 (90 BASE) MCG/ACT INHALATION AEROSOL SOLUTION 2 puffs four times a day as needed ALBUTEROL SULFATE 51723965179 Active Marta Yokum REGISTERED NURSE [employer] Active AUGMENTIN 875-125 MG ORAL TABLET Take one tablet twice a day with food 04/25 AMOXICILLIN-POT CLAVULANATE 59749185341 No Longer Active Marta Yokum REGISTERED NURSE [employer] Active TESSALON PERLES 100 MG ORAL CAPSULE 1 to 2 tablets by mouth 3 times daily as needed for cough BENZONATATE 57877932302 No Longer Active Marta Yokum REGISTERED NURSE [employer] Active AUGMENTIN 875-125 MG ORAL TABLET 1 po BID x 10 days AMOXICILLIN-POT CLAVULANATE 05649911981 No Longer Active Marta Yokum REGISTERED NURSE [employer] Active MEDROL 4 MG ORAL TABLET THERAPY PACK 6 tabs on day 1, 5 tabs on day 2, 4 tabs on day 3, 3 tabs on day 4, 2 tabs on day 5, 1 tab on day 6 METHYLPREDNISOLONE 38582584699 No Longer Active Marta Yokum REGISTERED NURSE [employer] Active KEFLEX 500 MG ORAL CAPSULE 1 po qid CEPHALEXIN 96075243200 No Longer Active Marta Yokum REGISTERED NURSE [employer] Active TUSSIONEX PENNKINETIC ER 10-8 MG/5ML ORAL SUSPENSION EXTENDED RELEASE 5ml po q12hr PRN Cough HYDROCOD POLST-CHLORPHEN POLST 35251077159 No Longer Active Marta Yokum REGISTERED NURSE [employer] Active VITAMIN D3 14620 UNIT ORAL CAPSULE 1 qWeek x 4 months for vitamin D deficiency CHOLECALCIFEROL 58656043652 Active Marta Yokum REGISTERED NURSE [employer] Active CEPHALEXIN 500 MG ORAL CAPSULE Take one four times a day CEPHALEXIN 21671304493 No Longer Active Marta Yokum REGISTERED NURSE [employer] Active VITAMIN C 500 MG ORAL CAPSULE Take one daily ASCORBIC ACID 13268102601 Active Rikki Harms PA Active BENZONATATE 200 MG ORAL CAPSULE One capsule tid. BENZONATATE 37573197549 No Longer Active Rikki Harms PA Active FLONASE ALLERGY RELIEF 50 MCG/ACT NASAL SUSPENSION spray twice in each nostril one time daily FLUTICASONE PROPIONATE 86672518523 No Longer Active Rikki Harms PA Active TUSSIONEX PENNKINETIC ER 10-8 MG/5ML ORAL SUSPENSION EXTENDED RELEASE 5ml po q12hr PRN Cough HYDROCOD POLST-CHLORPHEN POLST 80485337127 No Longer Active Rikki Harms PA Active ALBUTEROL SULFATE (2.5 MG/3ML) 0.083% INHALATION NEBULIZATION SOLUTION one vial per nebulizer every 4-6 hours as needed ALBUTEROL SULFATE 06263728192 No Longer Active Rikki Harms PA Active MEDROL 4 MG ORAL TABLET THERAPY PACK 6 tabs on day 1, 5 tabs on day 2, 4 tabs on day 3, 3 tabs on day 4, 2 tabs on day 5, 1 tab on day 6 METHYLPREDNISOLONE 72257356976 No Longer Active Rikki Harms PA Active LEVAQUIN 750 MG ORAL TABLET 1 po qd x 7 days LEVOFLOXACIN 37613775422 No Longer Active Rikki Harms PA Active LEVAQUIN 500 MG ORAL TABLET Take one tablet daily LEVOFLOXACIN 23311542236 No Longer Active Rikki Harms PA Active LEVAQUIN 500 MG ORAL TABLET 1 tablet by mouth daily LEVOFLOXACIN 49999095697 No Longer Active Marta Ana M REGISTERED NURSE [employer] Active CHERATUSSIN AC 100-10 MG/5ML ORAL SYRUP 1 tsp by mouth every 4 hours as needed for cough GUAIFENESIN-CODEINE 72768560833 No Longer Active Rikki Harms PA Active MUPIROCIN 2 % EXTERNAL OINTMENT Use in each nostril in am and pm MUPIROCIN 19478661188 No Longer Active Rikki Harms PA Active DOXYCYCLINE HYCLATE 100 MG ORAL CAPSULE Take one bid DOXYCYCLINE HYCLATE 09536777609 No Longer Active Rikki Harms PA Active CLARITIN 10 MG ORAL TABLET 1prn LORATADINE 26808848002 No Longer Active Jocelyne Naff PER DIEM Active ASPIRIN 81 MG ORAL TABLET 1qd ASPIRIN 79763761187 No Longer Active Jocelyne Naff PER DIEM Active DOXYCYCLINE HYCLATE 100 MG ORAL CAPSULE 1 cap by mouth twice daily DOXYCYCLINE HYCLATE 55013235726 No Longer Active Rikki Harms PA Active VITAMIN D3 82327 UNIT ORAL CAPSULE 1 pill by mouth weekly, for vitamin D deficiency CHOLECALCIFEROL 84052007399 No Longer Active Jennifer Chun MD PhD Active ANASTROZOLE 1 MG ORAL TABLET Take one by mouth daily ANASTROZOLE 58148637545 Active Jennifer Chun MD PhD Active ZITHROMAX 250 MG ORAL TABLET 2 po today, then 1 po q days 2-5 AZITHROMYCIN 37744553974 No Longer Active Rikki Harms PA Active MECLIZINE HCL 25 MG ORAL TABLET 1 prn MECLIZINE HCL 39242886099 No Longer Active Solomon Alamo MD Active CHERATUSSIN AC SYRUP prn as directed GUAIFENESIN- CODEINE SYRP 47941558101 No Longer Active Rikki Harms PA Active MULTIVITAMINS TABS 1qd MULTIPLE VITAMIN 18943221055 No Longer Active Rikki Harms PA Active OMEPRAZOLE 20 MG ORAL CAPSULE DELAYED RELEASE 1 PO Q D OMEPRAZOLE 19446321201 Active AMY Snow Active ZITHROMAX Z-CAROLYN 250 MG ORAL TABLET 2x1day,[id number] AZITHROMYCIN 73121604779 No Longer Active Jocelyne Naff PER DIEM Active MULTIVITAMINS TABS 1qd MULTIVITAMINS TABS MULTIPLE VITAMIN Inactive CHERATUSSIN AC SYRUP prn as directed CHERATUSSIN AC SYRUP GUAIFENESIN-CODEINE SYRP Inactive MECLIZINE HCL 25 MG ORAL TABLET 1 prn MECLIZINE HCL 25 MG ORAL TABLET 976523 MECLIZINE HCL Inactive ASPIRIN 81 MG ORAL TABLET 1qd ASPIRIN 81 MG ORAL TABLET ASPIRIN Inactive CLARITIN 10 MG ORAL TABLET 1prn CLARITIN 10 MG ORAL TABLET 144156 LORATADINE Inactive DOXYCYCLINE HYCLATE 100 MG ORAL CAPSULE Take one bid DOXYCYCLINE HYCLATE 100 MG ORAL CAPSULE 8957901 DOXYCYCLINE HYCLATE Inactive MUPIROCIN 2 % EXTERNAL OINTMENT Use in each nostril in am and pm MUPIROCIN 2 % EXTERNAL OINTMENT 920075 MUPIROCIN Inactive CHERATUSSIN AC 100-10 MG/5ML ORAL SYRUP 1 tsp by mouth every 4 hours as needed for cough CHERATUSSIN AC 100-10 MG/5ML ORAL SYRUP 470394 GUAIFENESIN-CODEINE Inactive LEVAQUIN 500 MG ORAL TABLET 1 tablet by mouth daily LEVAQUIN 500 MG ORAL TABLET 745919 LEVOFLOXACIN Inactive LEVAQUIN 500 MG ORAL TABLET Take one tablet daily LEVAQUIN 500 MG ORAL TABLET 501331 LEVOFLOXACIN Inactive LEVAQUIN 750 MG ORAL TABLET 1 po qd x 7 days LEVAQUIN 750 MG ORAL TABLET 081315 LEVOFLOXACIN Inactive ALBUTEROL SULFATE (2.5 MG/3ML) 0.083% INHALATION NEBULIZATION SOLUTION one vial per nebulizer every 4-6 hours as needed ALBUTEROL SULFATE (2.5 MG/3ML) 0.083% INHALATION NEBULIZATION SOLUTION 076727 ALBUTEROL SULFATE Inactive TUSSIONEX PENNKINETIC ER 10-8 MG/5ML ORAL SUSPENSION EXTENDED RELEASE 5ml po q12hr PRN Cough TUSSIONEX PENNKINETIC ER 10-8 MG/5ML ORAL SUSPENSION EXTENDED RELEASE HYDROCOD POLST-CHLORPHEN POLST Inactive FLONASE ALLERGY RELIEF 50 MCG/ACT NASAL SUSPENSION spray twice in each nostril one time daily FLONASE ALLERGY RELIEF 50 MCG/ ACT NASAL SUSPENSION 7788304 FLUTICASONE PROPIONATE Inactive BENZONATATE 200 MG ORAL CAPSULE One capsule tid. BENZONATATE 200 MG ORAL CAPSULE 010097 BENZONATATE Inactive CEPHALEXIN 500 MG ORAL CAPSULE Take one four times a day CEPHALEXIN 500 MG ORAL CAPSULE 115259 CEPHALEXIN Inactive TUSSIONEX PENNKINETIC ER 10-8 MG/5ML ORAL SUSPENSION EXTENDED RELEASE 5ml po q12hr PRN Cough TUSSIONEX PENNKINETIC ER 10-8 MG/5ML ORAL SUSPENSION EXTENDED RELEASE HYDROCOD POLST-CHLORPHEN POLST Inactive TESSALON PERLES 100 MG ORAL CAPSULE 1 to 2 tablets by mouth 3 times daily as needed for cough TESSALON PERLES 100 MG ORAL CAPSULE 082654 BENZONATATE Inactive PROAIR HFA 108 (90 BASE) [...] one daily BIOTIN 1000 MCG ORAL TABLET 685116 BIOTIN Inactive ZITHROMAX Z-CAROLYN 250 MG ORAL TABLET 2x1day,[id number] ZITHROMAX Z-CAROLYN 250 MG ORAL TABLET 023534 AZITHROMYCIN Inactive ZITHROMAX 250 MG ORAL TABLET 2 po today, then 1 po q days 2-5 ZITHROMAX 250 MG ORAL TABLET 193961 AZITHROMYCIN Inactive VITAMIN D3 21297 UNIT ORAL CAPSULE 1 pill by mouth weekly, for vitamin D deficiency VITAMIN D3 54129 UNIT ORAL CAPSULE CHOLECALCIFEROL Inactive DOXYCYCLINE HYCLATE 100 MG ORAL CAPSULE 1 cap by mouth twice daily DOXYCYCLINE HYCLATE 100 MG ORAL CAPSULE 1678328 DOXYCYCLINE HYCLATE Inactive MEDROL 4 MG ORAL TABLET THERAPY PACK 6 tabs on day 1, 5 tabs on day 2, 4 tabs on day 3, 3 tabs on day 4, 2 tabs on day 5, 1 tab on day 6 MEDROL 4 MG ORAL TABLET THERAPY PACK 393529 METHYLPREDNISOLONE Inactive KEFLEX 500 MG ORAL CAPSULE 1 po qid KEFLEX 500 MG ORAL CAPSULE 708381 CEPHALEXIN Inactive MEDROL 4 MG ORAL TABLET THERAPY PACK 6 tabs on day 1, 5 tabs on day 2, 4 tabs on day 3, 3 tabs on day 4, 2 tabs on day 5, 1 tab on day 6 MEDROL 4 MG ORAL TABLET THERAPY PACK 443751 METHYLPREDNISOLONE Inactive AUGMENTIN 875-125 MG ORAL TABLET 1 po BID x 10 days AUGMENTIN 875-125 MG ORAL TABLET 723257 AMOXICILLIN-POT CLAVULANATE Inactive AUGMENTIN 875-125 MG ORAL TABLET Take one tablet twice a day with food 04/25 AUGMENTIN 875-125 MG ORAL TABLET 769017 AMOXICILLIN-POT CLAVULANATE Inactive DOXYCYCLINE HYCLATE 100 MG ORAL CAPSULE 1 cap by mouth twice daily DOXYCYCLINE HYCLATE 100 MG ORAL CAPSULE 3111525 DOXYCYCLINE HYCLATE Inactive Vital Signs Date Name [...] ... - Chemistry sodium, serum 145 mmol/L 299-201 3050/07/23 carbon dioxide, venous blood 31.2 mmol/L 21.0-32.0 potassium, serum 4.2 mmol/L 3.5-5.2 chloride, serum 108 mmol/L 98-107 blood glucose 105 mg/dL 65-95 urea nitrogen, blood 16 mg/dL 7-18 creatinine, serum 0.77 mg/dL 0.60-1.30 alanine aminotransferase (SGPT), serum 30 U/L 12-78 aspartate aminotransferase (SGOT), serum 21 U/L 15-37 calcium, serum 8.9 mg/dL 8.5-10.1 bilirubin, serum, total 0.30 mg/dL 0.00-1.00 cholesterol, serum 181 mg/dL 427-174 2286/07/23 triglyceride, serum, fasting 108 mg/dL 30-200 HDL cholesterol, serum 63 mg/dL 32-60 LDL cholesterol, serum 96 mg/dL 0-130 TSH 2.23 m[iU]/mL 0.36-3.74 Encounters Code Encounter Date Provider Facility CPT-84877 Level 3 Est. Patient 22:53:06 PURCHASING/RECEIVING Marta Yoelizabeth [facility] CPT-39197 Level 3 Est. Patient 16:07:34 CDT [facility] CPT-15840 Level 3 Est. Patient 15:39:01 [facility] Patient 17:31:07 CDT Marta Viramontes [facility] CPT-49027 Level 3 Est. Patient 05:11:40 CDT Rikki Stearns [facility] CPT-05635 Level 2 Est. Patient 14:30:43 PURCHASING/RECEIVING Marta Viramontes [facility] CPT-40871 Level 4 Est. Patient 09:14:36 PURCHASING/RECEIVING Rikki GRANADOS [facility] CPT-70459 Level 2 Est. Patient 09:07:32 CDT Marta Viramontes [facility] CPT-95147 Level 4 Est. Patient 11:55:00 CDT Rikki GRANADOS [facility] CPT-55903 Level 3 Est. Patient 13:25:16 CDT Jennifer Chun MD [facility] CPT-22301 Level 3 Est. Patient 17:31:22 CDT Solomon Alamo MD [facility] CPT-00405 Level 3 Est. Patient 08:02:14 CDT Solomon Alamo MD [facility] CPT-61411 Level 3 Est. Patient 17:23:[address] [facility] CPT-00479 Level 3 Est. Patient 11:22:[address] [facility] Procedures Code Procedure Name Date Entry Date Standard Description CPT-PV Prev. Care Visit 17:50:16 CDT CPT-63556 TSH - LAB USE ONLY 12:16:46 CDT CPT-02568 Lipid - LAB USE ONLY 12:16:46 CDT CPT-61497 CMP - LAB USE ONLY 12:16:46 CDT CPT-90919 CBC - LAB USE ONLY 12:16:46 CDT CPT-51548 Venipuncture Draw Fee 12:16:46 CDT CPT-31318 Venipuncture Draw Fee 16:09:39 CDT CPT-56021 Venipuncture Draw Fee 12:43:48 PURCHASING/RECEIVING CPT-92040 BMP - LAB USE ONLY 10:32:33 PURCHASING/RECEIVING CPT-68758 Venipuncture Draw Fee 10:32:33 PURCHASING/RECEIVING CPT-97758 Magnesium - LAB USE ONLY 09:54:30 CDT CPT-29254 TSH - LAB USE ONLY 09:54:30 CDT CPT-64094 Lipid - LAB USE ONLY 09:54:30 CDT CPT-76573 Venipuncture Draw Fee 09:54:29 CDT CPT-53325 Venipuncture Draw Fee 18:27:04 CDT CPT-74344 Chest 2V Frontal and Lat 10:57:00 PURCHASING/RECEIVING CPT-93289 Venipuncture Draw Fee 10:56:59 PURCHASING/RECEIVING CPT-61053 Venipuncture Draw Fee 09:22:28 PURCHASING/RECEIVING CPT-18030 Chest 2V Frontal and Lat 09:22:27 PURCHASING/RECEIVING CPT-I/D I/D Abscess 09:43:13 CDT CPT-28064 Venipuncture Draw Fee 08:16:46 PURCHASING/RECEIVING CPT-17332 Venipuncture Draw Fee 08:18:55 PURCHASING/RECEIVING CPT-84389 Venipuncture Draw Fee 08:31:18 PURCHASING/RECEIVING CPT-36657 Venipuncture Draw Fee 11:42:52 PURCHASING/RECEIVING CPT-90825 Venipuncture Draw Fee 13:26:37 PURCHASING/RECEIVING CPT-22247 Venipuncture Draw Fee 09:23:38 PURCHASING/RECEIVING CPT-000 Give Appropriate Tetanus Booster 10:23:50 CDT CPT-12421 Bone Density 08:28:45 CDT CPT-99023 Bone Density 11:35:15 CDT CPT-PV Prev. Care Visit 12:19:00 CDT CPT-04246 Venipuncture Draw Fee 15:02:58 CDT
--- OUTSIDE RECORDS SUMMARY | 2018-01-19 06:41 | XMS REPORT | Clinical Summary ---
Author Author Admin, E Organization [facility] Address Unknown Phone Unavailable Allergies, Adverse Reactions, Alerts Allergy Name Reaction Description Start Date Severity Status Provider SULFA facial swelling Critical Active Jocelyne Naff PHYSICAL THERAPIST TECHNICIAN Conditions or Problems Problem Name Problem Code Onset Date Status Entry Date Provider Comment Standard Description Annotate G E R D 530.81 Active Jocelyne Naff PHYSICAL THERAPIST TECHNICIAN Esophageal reflux FH COLON CANCER V16.0 Active Jocelyne Naff PHYSICAL THERAPIST TECHNICIAN Family history of malignant neoplasm of gastrointestinal [...] Adenocarcinoma, right breast 174.9 Active Alfreda Anthony SHIRT PRESSER Malignant neoplasm of breast (female), unspecified Female breast cancer, right upper-outer quadrant 174.4 Resolved Marta Yokum [employer]OCK AND WATCH HANDS DIPPER Malignant neoplasm of upper-outer quadrant of female breast Upper respiratory infection, acute 465.9 Resolved Rikki Harms PA Acute upper respiratory infections of unspecified site Chemotherapy V58.11 Resolved Rikki Harms PA Encounter for antineoplastic chemotherapy Cough, chronic 786.2 Resolved Rikki Harms PA Cough Ingrown toenail, left 703.0 Resolved Marta Yokum [employer] AND WATCH HANDS DIPPER Ingrowing nail cellulitis, finger, right 681.00 Resolved Marta Yokum [employer] AND WATCH HANDS DIPPER Cellulitis and abscess of finger, unspecified Cough 786.2 Resolved Marta Yokum [employer] AND WATCH HANDS DIPPER Cough Bronchitis, acute 466.0 Resolved Marta Yokum [employer] AND WATCH HANDS DIPPER Acute bronchitis Preoperative examination V72.84 Active Marta Yokum [employer] AND WATCH HANDS DIPPER Preoperative examination, unspecified Body Mass Index 39.0-39.9 Adult Active Marta Yokum [employer] W[employer] HANDS DIPPER Body Mass Index 39.0-39.9, adult Encounter for general adult medical examination without abnormal findings V70.0 Active Marta Viramontes APRN Routine general medical examination at a health care facility Obesity, BMI 35-39.9, adult 278.00 Active Marta Viramontes APRN Obesity, unspecified Asthma, intermittent, mild 493.90 Active Marta Viramontes APRN Asthma, unspecified ESOPHAGEAL STRICTURE ICD-530.3 Inactive Marta Viramontes [employer] WATCH HANDS DIPPER Benign positional vertigo ICD-386.11 Inactive Marta Viramontes [employer] WATCH HANDS DIPPER Breast microcalcification ICD-793.81 Inactive Jennifer Chun MD PhD Abnormal Mammogram ICD-793.80 Inactive Jennifer Chun MD PhD Routine gynecological examination ICD-V72.31 Inactive Marta Viramontes [employer] WATCH HANDS DIPPER Breast cancer ICD-174.9 Inactive Marta Viramontes [employer] WATCH HANDS DIPPER Soft tissue infection ICD-528.9 Inactive Rikki Stearns PA Abscess, skin ICD-682.9 Inactive Rikki Stearns PA Cellulitis, 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 Rikki Stearns PA Rash ICD-782.1 Inactive Rikki Stearns PA Female breast cancer, right upper-outer quadrant ICD-174.4 01/05 Inactive Marta Viramontes [employer] AND WATCH HANDS DIPPER Upper respiratory infection, acute ICD-465.9 Inactive Rikki [...] 1 pill daily, for depression DULOXETINE HCL 89298591208 Active Marta Viramontes APRN Active VITAMIN E 400 UNIT ORAL CAPSULE 2 twice a day VITAMIN E 38886157109 Active Marta Viramontes APRN Active NIACIN ER 500 MG ORAL TABLET EXTENDED RELEASE Take one daily NIACIN 68033102286 Active Marta Viramontes APRN Active BIOTIN 1000 MCG ORAL TABLET Take one daily BIOTIN 65830388887 No Longer Active Marta Viramontes APRN Active B COMPLEX 50 ORAL TABLET EXTENDED RELEASE Take one by mouth daily B COMPLEX VITAMINS 16607422797 Active Marta Viramontes APRN Active TUSSIONEX PENNKINETIC ER 10-8 MG/5ML ORAL SUSPENSION EXTENDED RELEASE 5ml po q12hr PRN Cough HYDROCOD POLST-CHLORPHEN POLST 63559273082 No Longer Active Marta Viramontes APRN Active PROAIR HFA 108 (90 BASE) MCG/ACT INHALATION AEROSOL SOLUTION 2 puffs four times a day as needed ALBUTEROL SULFATE 80547138222 No Longer Active Marta Viramontes APRN Active DOXYCYCLINE HYCLATE 100 MG ORAL CAPSULE 1 cap by mouth twice daily DOXYCYCLINE HYCLATE 18013308882 No Longer Active Marta Yokum [employer] WATCH HANDS DIPPER Active PROAIR HFA 108 (90 BASE) MCG/ACT INHALATION AEROSOL SOLUTION 2 puffs four times a day as needed ALBUTEROL SULFATE 84145865435 Active Marta Yokum [employer] AND WATCH HANDS DIPPER Active AUGMENTIN 875-125 MG ORAL TABLET Take one tablet twice a day with food 04/25 AMOXICILLIN-POT CLAVULANATE 49106534384 No Longer Active Marta Yokum [employer] WATCH HANDS DIPPER Active TESSALON PERLES 100 MG ORAL CAPSULE 1 to 2 tablets by mouth 3 times daily as needed for cough BENZONATATE 51714190009 No Longer Active Marta Yokum [employer] AND WATCH HANDS DIPPER Active AUGMENTIN 875-125 MG ORAL TABLET 1 po BID x 10 days AMOXICILLIN-POT CLAVULANATE 70826354576 No Longer Active Marta Yokum [employer] WATCH HANDS DIPPER Active MEDROL 4 MG ORAL TABLET THERAPY PACK 6 tabs on day 1, 5 tabs on day 2, 4 tabs on day 3, 3 tabs on day 4, 2 tabs on day 5, 1 tab on day 6 METHYLPREDNISOLONE 25520473515 No Longer Active Marta Yokum [employer] AND WATCH HANDS DIPPER Active KEFLEX 500 MG ORAL CAPSULE 1 po qid CEPHALEXIN 61370824682 No Longer Active Marta Yokum [employer] AND WATCH HANDS DIPPER Active TUSSIONEX PENNKINETIC ER 10-8 MG/5ML ORAL SUSPENSION EXTENDED RELEASE 5ml po q12hr PRN Cough HYDROCOD POLST-CHLORPHEN POLST 11789370014 No Longer Active Marta Yokum [employer] AND WATCH HANDS DIPPER Active VITAMIN D3 49967 UNIT ORAL CAPSULE 1 qWeek x 4 months for vitamin D deficiency CHOLECALCIFEROL 24253113780 Active Marta Yokum [employer] AND WATCH HANDS DIPPER Active CEPHALEXIN 500 MG ORAL CAPSULE Take one four times a day CEPHALEXIN 55303818915 No Longer Active Marta Yokum CL[employer] AND WATCH HANDS DIPPER Active VITAMIN C 500 MG ORAL CAPSULE Take one daily ASCORBIC ACID 71036656539 Active Rikki Harms PA Active BENZONATATE 200 MG ORAL CAPSULE One capsule tid. BENZONATATE 24140318162 No Longer Active Rikki Harms PA Active FLONASE ALLERGY RELIEF 50 MCG/ACT NASAL SUSPENSION spray twice in each nostril one time daily FLUTICASONE PROPIONATE 88223283501 No Longer Active Rikki Harms PA Active TUSSIONEX PENNKINETIC ER 10-8 MG/5ML ORAL SUSPENSION EXTENDED RELEASE 5ml po q12hr PRN Cough HYDROCOD POLST-CHLORPHEN POLST 40895961457 No Longer Active Rikki Harms PA Active ALBUTEROL SULFATE (2.5 MG/3ML) 0.083% INHALATION NEBULIZATION SOLUTION one vial per nebulizer every 4-6 hours as needed ALBUTEROL SULFATE 01099310152 No Longer Active Rikki Harms PA Active MEDROL 4 MG ORAL TABLET THERAPY PACK 6 tabs on day 1, 5 tabs on day 2, 4 tabs on day 3, 3 tabs on day 4, 2 tabs on day 5, 1 tab on day 6 METHYLPREDNISOLONE 46147265831 No Longer Active Rikki Harms PA Active LEVAQUIN 750 MG ORAL TABLET 1 po qd x 7 days LEVOFLOXACIN 20302031523 No Longer Active Rikki Harms PA Active LEVAQUIN 500 MG ORAL TABLET Take one tablet daily LEVOFLOXACIN 80017599321 No Longer Active Rikki Harms PA Active LEVAQUIN 500 MG ORAL TABLET 1 tablet by mouth daily LEVOFLOXACIN 63164534447 No Longer Active Marta Ana M [employer] AND WATCH HANDS DIPPER Active CHERATUSSIN AC 100-10 MG/5ML ORAL SYRUP 1 tsp by mouth every 4 hours as needed for cough GUAIFENESIN-CODEINE 53497463461 No Longer Active Rikki Harms PA Active MUPIROCIN 2 % EXTERNAL OINTMENT Use in each nostril in am and pm MUPIROCIN 10688607568 No Longer Active Rikki Harms PA Active DOXYCYCLINE HYCLATE 100 MG ORAL CAPSULE Take one bid DOXYCYCLINE HYCLATE 09017195113 No Longer Active Rikki Harms PA Active CLARITIN 10 MG ORAL TABLET 1prn LORATADINE 12347950360 No Longer Active Jocelyne Naff PHYSICAL THERAPIST TECHNICIAN Active ASPIRIN 81 MG ORAL TABLET 1qd ASPIRIN 28023618752 No Longer Active Jocelyne Naff PHYSICAL THERAPIST TECHNICIAN Active DOXYCYCLINE HYCLATE 100 MG ORAL CAPSULE 1 cap by mouth twice daily DOXYCYCLINE HYCLATE 84106200243 No Longer Active Rkiki Harms PA Active VITAMIN D3 01560 UNIT ORAL CAPSULE 1 pill by mouth weekly, for vitamin D deficiency CHOLECALCIFEROL 51328703196 No Longer Active Jennifer Chun MD PhD Active ANASTROZOLE 1 MG ORAL TABLET Take one by mouth daily ANASTROZOLE 07656404952 Active Jennifer Chun MD PhD Active ZITHROMAX 250 MG ORAL TABLET 2 po today, then 1 po q days 2-5 AZITHROMYCIN 47614815914 No Longer Active Rikki Harms PA Active MECLIZINE HCL 25 MG ORAL TABLET 1 prn MECLIZINE HCL 86951638333 No Longer Active Solomon Alamo MD Active CHERATUSSIN AC SYRUP prn as directed GUAIFENESIN- CODEINE SYRP 96789071060 No Longer Active Rikki Harms PA Active MULTIVITAMINS TABS 1qd MULTIPLE VITAMIN 41699179424 No Longer Active Rikki Harms PA Active OMEPRAZOLE 20 MG ORAL CAPSULE DELAYED RELEASE 1 PO Q D OMEPRAZOLE 89181086418 Active AMY Snow Active ZITHROMAX Z-CAROLYN 250 MG ORAL TABLET 2x1day,[id number] AZITHROMYCIN 91624576871 No Longer Active Jocelyne Naff PHYSICAL THERAPIST TECHNICIAN Active MULTIVITAMINS TABS 1qd MULTIVITAMINS TABS MULTIPLE VITAMIN Inactive CHERATUSSIN AC SYRUP prn as directed CHERATUSSIN AC SYRUP GUAIFENESIN-CODEINE SYRP Inactive MECLIZINE HCL 25 MG ORAL TABLET 1 prn MECLIZINE HCL 25 MG ORAL TABLET 159163 MECLIZINE HCL Inactive ASPIRIN 81 MG ORAL TABLET 1qd ASPIRIN 81 MG ORAL TABLET ASPIRIN Inactive CLARITIN 10 MG ORAL TABLET 1prn CLARITIN 10 MG ORAL TABLET 311157 LORATADINE Inactive DOXYCYCLINE HYCLATE 100 MG ORAL CAPSULE Take one bid DOXYCYCLINE HYCLATE 100 MG ORAL CAPSULE 5147729 DOXYCYCLINE HYCLATE Inactive MUPIROCIN 2 % EXTERNAL OINTMENT Use in each nostril in am and pm MUPIROCIN 2 % EXTERNAL OINTMENT 201465 MUPIROCIN Inactive CHERATUSSIN AC 100-10 MG/5ML ORAL SYRUP 1 tsp by mouth every 4 hours as needed for cough CHERATUSSIN AC 100-10 MG/5ML ORAL SYRUP 126871 GUAIFENESIN-CODEINE Inactive LEVAQUIN 500 MG ORAL TABLET 1 tablet by mouth daily LEVAQUIN 500 MG ORAL TABLET 329409 LEVOFLOXACIN Inactive LEVAQUIN 500 MG ORAL TABLET Take one tablet daily LEVAQUIN 500 MG ORAL TABLET 498311 LEVOFLOXACIN Inactive LEVAQUIN 750 MG ORAL TABLET 1 po qd x 7 days LEVAQUIN 750 MG ORAL TABLET 047496 LEVOFLOXACIN Inactive ALBUTEROL SULFATE (2.5 MG/3ML) 0.083% INHALATION NEBULIZATION SOLUTION one vial per nebulizer every 4-6 hours as needed ALBUTEROL SULFATE (2.5 MG/3ML) 0.083% INHALATION NEBULIZATION SOLUTION 858289 ALBUTEROL SULFATE Inactive TUSSIONEX PENNKINETIC ER 10-8 MG/5ML ORAL SUSPENSION EXTENDED RELEASE 5ml po q12hr PRN Cough TUSSIONEX PENNKINETIC ER 10-8 MG/5ML ORAL SUSPENSION EXTENDED RELEASE HYDROCOD POLST-CHLORPHEN POLST Inactive FLONASE ALLERGY RELIEF 50 MCG/ACT NASAL SUSPENSION spray twice in each nostril one time daily FLONASE ALLERGY RELIEF 50 MCG/ ACT NASAL SUSPENSION 8550158 FLUTICASONE PROPIONATE Inactive BENZONATATE 200 MG ORAL CAPSULE One capsule tid. BENZONATATE 200 MG ORAL CAPSULE 390798 BENZONATATE Inactive CEPHALEXIN 500 MG ORAL CAPSULE Take one four times a day CEPHALEXIN 500 MG ORAL CAPSULE 813467 CEPHALEXIN Inactive TUSSIONEX PENNKINETIC ER 10-8 MG/5ML ORAL SUSPENSION EXTENDED RELEASE 5ml po q12hr PRN Cough TUSSIONEX PENNKINETIC ER 10-8 MG/5ML ORAL SUSPENSION EXTENDED RELEASE HYDROCOD POLST-CHLORPHEN POLST Inactive TESSALON PERLES 100 MG ORAL CAPSULE 1 to 2 tablets by mouth 3 times daily as needed for cough TESSALON PERLES 100 MG ORAL CAPSULE 118885 BENZONATATE Inactive PROAIR HFA 108 (90 BASE) [...] one daily BIOTIN 1000 MCG ORAL TABLET 698126 BIOTIN Inactive ZITHROMAX Z-CAROLYN 250 MG ORAL TABLET 2x1day,[id number] ZITHROMAX Z-CAROLYN 250 MG ORAL TABLET 979792 AZITHROMYCIN Inactive ZITHROMAX 250 MG ORAL TABLET 2 po today, then 1 po q days 2-5 ZITHROMAX 250 MG ORAL TABLET 636063 AZITHROMYCIN Inactive VITAMIN D3 61659 UNIT ORAL CAPSULE 1 pill by mouth weekly, for vitamin D deficiency VITAMIN D3 24066 UNIT ORAL CAPSULE CHOLECALCIFEROL Inactive DOXYCYCLINE HYCLATE 100 MG ORAL CAPSULE 1 cap by mouth twice daily DOXYCYCLINE HYCLATE 100 MG ORAL CAPSULE 2600361 DOXYCYCLINE HYCLATE Inactive MEDROL 4 MG ORAL TABLET THERAPY PACK 6 tabs on day 1, 5 tabs on day 2, 4 tabs on day 3, 3 tabs on day 4, 2 tabs on day 5, 1 tab on day 6 MEDROL 4 MG ORAL TABLET THERAPY PACK 620452 METHYLPREDNISOLONE Inactive KEFLEX 500 MG ORAL CAPSULE 1 po qid KEFLEX 500 MG ORAL CAPSULE 093833 CEPHALEXIN Inactive MEDROL 4 MG ORAL TABLET THERAPY PACK 6 tabs on day 1, 5 tabs on day 2, 4 tabs on day 3, 3 tabs on day 4, 2 tabs on day 5, 1 tab on day 6 MEDROL 4 MG ORAL TABLET THERAPY PACK 595744 METHYLPREDNISOLONE Inactive AUGMENTIN 875-125 MG ORAL TABLET 1 po BID x 10 days AUGMENTIN 875-125 MG ORAL TABLET 899868 AMOXICILLIN-POT CLAVULANATE Inactive AUGMENTIN 875-125 MG ORAL TABLET Take one tablet twice a day with food 04/25 AUGMENTIN 875-125 MG ORAL TABLET 194910 AMOXICILLIN-POT CLAVULANATE Inactive DOXYCYCLINE HYCLATE 100 MG ORAL CAPSULE 1 cap by mouth twice daily DOXYCYCLINE HYCLATE 100 MG ORAL CAPSULE 0797621 DOXYCYCLINE HYCLATE Inactive Vital Signs Date Name [...] ... - Chemistry sodium, serum 145 mmol/L 477-362 5718/07/23 carbon dioxide, venous blood 31.2 mmol/L 21.0-32.0 potassium, serum 4.2 mmol/L 3.5-5.2 chloride, serum 108 mmol/L 98-107 blood glucose 105 mg/dL 65-95 urea nitrogen, blood 16 mg/dL 7-18 creatinine, serum 0.77 mg/dL 0.60-1.30 alanine aminotransferase (SGPT), serum 30 U/L 12-78 aspartate aminotransferase (SGOT), serum 21 U/L 15-37 calcium, serum 8.9 mg/dL 8.5-10.1 bilirubin, serum, total 0.30 mg/dL 0.00-1.00 cholesterol, serum 181 mg/dL 982-197 5806/07/23 triglyceride, serum, fasting 108 mg/dL 30-200 HDL cholesterol, serum 63 mg/dL 32-60 LDL cholesterol, serum 96 mg/dL 0-130 TSH 2.23 m[iU]/mL 0.36-3.74 Encounters Code Encounter Date Provider Facility CPT-15765 Level 3 Est. Patient 22:53:06 COLDFUSION Marta Yoelizabeth [facility] CPT-98086 Level 3 Est. Patient 16:07:[address] [facility] CPT-94050 Level 3 Est. Patient 15:39:01 [facility] Patient 17:31:07 CDT Marta Viramontes [facility] CPT-49396 Level 3 Est. Patient 05:11:[address] [facility] CPT-43642 Level 2 Est. Patient 14:30:43 COLDFUSION Marta Viramontes [facility] CPT-33215 Level 4 Est. Patient 09:14:[address] [facility] CPT-65599 Level 2 Est. Patient 09:07:32 CDT Marta Viramontes [facility] CPT-43368 Level 4 Est. Patient 11:55:[address] [facility] CPT-17036 Level 3 Est. Patient 13:25:16 CDT Jennifer Chun MD [facility] CPT-19836 Level 3 Est. Patient 17:31:22 CDT Soolmon Alamo MD [facility] CPT-26041 Level 3 Est. Patient 08:02:14 CDT Solomon Alamo MD [facility] CPT-00390 Level 3 Est. Patient 17:23:53 CDT Rikki Stearns [facility] CPT-26268 Level 3 Est. Patient 11:22:41 CDT Darryn Hearn [facility] Procedures Code Procedure Name Date Entry Date Standard Description CPT-PV Prev. Care Visit 17:50:16 CDT CPT-58451 TSH - LAB USE ONLY 12:16:46 CDT CPT-03750 Lipid - LAB USE ONLY 12:16:46 CDT CPT-53744 CMP - LAB USE ONLY 12:16:46 CDT CPT-91971 CBC - LAB USE ONLY 12:16:46 CDT CPT-38796 Venipuncture Draw Fee 12:16:46 CDT CPT-27143 Venipuncture Draw Fee 16:09:39 CDT CPT-43634 Venipuncture Draw Fee 12:43:48 COLDFUSION CPT-81458 BMP - LAB USE ONLY 10:32:33 COLDFUSION CPT-23109 Venipuncture Draw Fee 10:32:33 COLDFUSION CPT-28151 Magnesium - LAB USE ONLY 09:54:30 CDT CPT-76299 TSH - LAB USE ONLY 09:54:30 CDT CPT-64003 Lipid - LAB USE ONLY 09:54:30 CDT CPT-62907 Venipuncture Draw Fee 09:54:29 CDT CPT-86960 Venipuncture Draw Fee 18:27:04 CDT CPT-90678 Chest 2V Frontal and Lat 10:57:00 COLDFUSION CPT-84566 Venipuncture Draw Fee 10:56:59 COLDFUSION CPT-82182 Venipuncture Draw Fee 09:22:28 COLDFUSION CPT-55224 Chest 2V Frontal and Lat 09:22:27 COLDFUSION CPT-I/D I/D Abscess 09:43:13 CDT CPT-92045 Venipuncture Draw Fee 08:16:46 COLDFUSION CPT-66929 Venipuncture Draw Fee 08:18:55 COLDFUSION CPT-41720 Venipuncture Draw Fee 08:31:18 COLDFUSION CPT-73525 Venipuncture Draw Fee 11:42:52 COLDFUSION CPT-73292 Venipuncture Draw Fee 13:26:37 COLDFUSION CPT-59715 Venipuncture Draw Fee 09:23:38 COLDFUSION CPT-000 Give Appropriate Tetanus Booster 10:23:50 CDT CPT-40119 Bone Density 08:28:45 CDT CPT-68352 Bone Density 11:35:15 CDT CPT-PV Prev. Care Visit 12:19:00 CDT CPT-82755 Venipuncture Draw Fee 15:02:58 CDT
--- OUTSIDE RECORDS SUMMARY | 2018-01-19 06:42 | XMS REPORT | Clinical Summary ---
Author Author Admin, QUITA Organization [facility] Address Unknown Phone Unavailable Allergies, Adverse Reactions, Alerts Allergy Name Reaction Description Start Date Severity Status Provider SULFA facial swelling Critical Active Jocelyne Naff DERMATOLOGIST AND DERMATOPATHOLOGIST Conditions or Problems Problem Name Problem Code Onset Date Status Entry Date Provider Comment Standard Description Annotate G E R D 530.81 Active Jocelyne Naff DERMATOLOGIST AND DERMATOPATHOLOGIST Esophageal reflux FH COLON CANCER V16.0 Active Jocelyne Naff DERMATOLOGIST AND DERMATOPATHOLOGIST Family history of malignant neoplasm of gastrointestinal tract ESOPHAGEAL STRICTURE 530.3 Active Darryn Hearn PA Stricture and stenosis of esophagus CAROTID ARTERY STENOSIS, RIGHT 433.10 Active Rikki Stearns PA Occlusion and stenosis of carotid artery, without mention of cerebral infarction HEALTH SCREENING V70.0 Active Rose Darnell LPN Routine general medical examination at a health care facility Benign positional vertigo 386.11 Active Rikki GRANADOS Benign paroxysmal positional vertigo Breast microcalcification 793.81 Ruled out Jennifer Chun MD PhD Mammographic microcalcification Abnormal Mammogram 793.80 Resolved Jennifer Chun MD PhD Abnormal mammogram, unspecified Routine gynecological examination V72.31 Active Jennifer Chun MD PhD Routine gynecological examination Postmenopausal status V49.81 Active Chante REYES Asymptomatic postmenopausal status (age-related) (natural) Breast cancer 174.9 Resolved Marta Viramontes [employer]LECT[employer]ICAL DESIGNER Malignant neoplasm of breast (female), unspecified Vitamin [...] Adenocarcinoma, right breast 174.9 Active Alfreda Anthony DRY STARCH SUPERVISOR Malignant neoplasm of breast (female), unspecified Female breast cancer, right upper-outer quadrant 174.4 Active Kailee Rachel RMA Malignant neoplasm of upper-outer quadrant of female breast Upper respiratory infection, acute 465.9 Resolved Rikki Harms PA Acute upper respiratory infections of unspecified site Chemotherapy V58.11 Resolved Rikki Harms PA Encounter for antineoplastic chemotherapy Cough, chronic 786.2 Resolved Rikki Harms PA Cough Ingrown toenail, left 703.0 Resolved Marta Yokum [employer] ELECT[employer]ICAL DESIGNER Ingrowing nail cellulitis, finger, right 681.00 Resolved Marta Yokum [employer] ELECTRICAL DESIGNER Cellulitis and abscess of finger, unspecified Cough 786.2 Resolved Marta Yokum [employer] ELECTRICAL DESIGNER Cough Bronchitis, acute 466.0 Active Marta Yokum [employer] ELECTRICAL DESIGNER Acute bronchitis Breast microcalcification ICD-793.81 Inactive Jennifer Chun MD PhD Abnormal Mammogram ICD-793.80 Inactive Jennifer Chun MD PhD Breast cancer ICD-174.9 Inactive Marta Viramontes [employer] E[employer]ICAL DESIGNER Soft tissue infection ICD-528.9 Inactive Rikki Stearns PA Abscess, skin ICD-682.9 Inactive Rikki Harms PA Cellulitis, 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 Rikki Harms PA Rash ICD-782.1 Inactive Rikki Harms PA Upper respiratory infection, acute ICD-465.9 Inactive Rikki Harms PA Chemotherapy ICD-V58.11 Inactive Rikki Stearns PA Cough, chronic ICD-786.2 Inactive Rikki Stearns PA Ingrown toenail, left ICD-703.0 Inactive Marta Viramontes [employer] E[employer]ICAL DESIGNER cellulitis, finger, right ICD-681.00 Inactive Marta Maganaum [employer] ELECTRICAL DESIGNER Cough ICD-786.2 Inactive Marta Maganaum [employer] ELECTRICAL DESIGNER Medication List Medication Instructions Start Date Stop Date Generic Name NDC Status Provider Patient Instruction DULOXETINE HCL 60 MG ORAL CAPSULE DELAYED RELEASE PARTICLES 1 pill daily, for depression DULOXETINE HCL 87741179873 Active Marta Viramontes APRN Active VITAMIN E 400 UNIT ORAL CAPSULE 2 twice a day VITAMIN E 76365818025 Active Marta Viramontes APRN Active NIACIN ER 500 MG ORAL TABLET EXTENDED RELEASE Take one daily NIACIN 50855455840 Active Marta Viramontes [employer] ELECTRICAL DESIGNER Active BIOTIN 1000 MCG ORAL TABLET Take one daily BIOTIN 12177113455 No Longer Active Marta Viramontes APRN Active B COMPLEX 50 ORAL TABLET EXTENDED RELEASE Take one by mouth daily B COMPLEX VITAMINS 83821893978 Active Marta Yokum [employer] ELECTRICAL DESIGNER Active TUSSIONEX PENNKINETIC ER 10-8 MG/5ML ORAL SUSPENSION EXTENDED RELEASE 5ml po q12hr PRN Cough HYDROCOD POLST-CHLORPHEN POLST 51436646196 No Longer Active Marta Yokum [employer] E[employer]ICAL DESIGNER Active PROAIR HFA 108 (90 BASE) MCG/ACT INHALATION AEROSOL SOLUTION 2 puffs four times a day as needed ALBUTEROL SULFATE 30629317747 No Longer Active Amrta Yokum [employer] ELECTRICAL DESIGNER Active DOXYCYCLINE HYCLATE 100 MG ORAL CAPSULE 1 cap by mouth twice daily DOXYCYCLINE HYCLATE 61425690884 No Longer Active Marta Yokum [employer] ELECTRICAL DESIGNER Active PROAIR HFA 108 (90 BASE) MCG/ACT INHALATION AEROSOL SOLUTION 2 puffs four times a day as needed ALBUTEROL SULFATE 47121424550 Active Marta Yokum [employer] ELECTRICAL DESIGNER Active AUGMENTIN 875-125 MG ORAL TABLET Take one tablet twice a day with food 04/25 AMOXICILLIN-POT CLAVULANATE 91367612409 No Longer Active Marta Yokum [employer] ELECTRICAL DESIGNER Active TESSALON PERLES 100 MG ORAL CAPSULE 1 to 2 tablets by mouth 3 times daily as needed for cough BENZONATATE 46144235939 No Longer Active Marta Yokum [employer] ELECTRICAL DESIGNER Active AUGMENTIN 875-125 MG ORAL TABLET 1 po BID x 10 days AMOXICILLIN-POT CLAVULANATE 65185225915 No Longer Active Marta Yokum [employer] ELECTRICAL DESIGNER Active MEDROL 4 MG ORAL TABLET THERAPY PACK 6 tabs on day 1, 5 tabs on day 2, 4 tabs on day 3, 3 tabs on day 4, 2 tabs on day 5, 1 tab on day 6 METHYLPREDNISOLONE 08670231032 No Longer Active Marta Yokum [employer] ELECTRICAL DESIGNER Active KEFLEX 500 MG ORAL CAPSULE 1 po qid CEPHALEXIN 77662943574 No Longer Active Marta Yokum [employer] ELECTRICAL DESIGNER Active TUSSIONEX PENNKINETIC ER 10-8 MG/5ML ORAL SUSPENSION EXTENDED RELEASE 5ml po q12hr PRN Cough HYDROCOD POLST-CHLORPHEN POLST 90382485495 No Longer Active Marta Viramontes APRN Active VITAMIN D3 75192 UNIT ORAL CAPSULE 1 qWeek x 4 months for vitamin D deficiency CHOLECALCIFEROL 31701501557 Active Marta Viramontes APRN Active CEPHALEXIN 500 MG ORAL CAPSULE Take one four times a day CEPHALEXIN 08263819937 No Longer Active Marta Viramontes APRN Active VITAMIN C 500 MG ORAL CAPSULE Take one daily ASCORBIC ACID 19296493444 Active Rikki Harms PA Active BENZONATATE 200 MG ORAL CAPSULE One capsule tid. BENZONATATE 49550776655 No Longer Active Rikki Harms PA Active FLONASE ALLERGY RELIEF 50 MCG/ACT NASAL SUSPENSION spray twice in each nostril one time daily FLUTICASONE PROPIONATE 02140306995 No Longer Active Rikki Harms PA Active TUSSIONEX PENNKINETIC ER 10-8 MG/5ML ORAL SUSPENSION EXTENDED RELEASE 5ml po q12hr PRN Cough HYDROCOD POLST-CHLORPHEN POLST 79808824561 No Longer Active Rikki Harms PA Active ALBUTEROL SULFATE (2.5 MG/3ML) 0.083% INHALATION NEBULIZATION SOLUTION one vial per nebulizer every 4-6 hours as needed ALBUTEROL SULFATE 95218987559 No Longer Active Rikki Harms PA Active MEDROL 4 MG ORAL TABLET THERAPY PACK 6 tabs on day 1, 5 tabs on day 2, 4 tabs on day 3, 3 tabs on day 4, 2 tabs on day 5, 1 tab on day 6 METHYLPREDNISOLONE 11972170297 No Longer Active Rikki Harms PA Active LEVAQUIN 750 MG ORAL TABLET 1 po qd x 7 days LEVOFLOXACIN 71768568101 No Longer Active Rikki Harms PA Active LEVAQUIN 500 MG ORAL TABLET Take one tablet daily LEVOFLOXACIN 64952840801 No Longer Active Rikki Harms PA Active LEVAQUIN 500 MG ORAL TABLET 1 tablet by mouth daily LEVOFLOXACIN 99341401908 No Longer Active Marta Viramontes [employer] ELECTRICAL DESIGNER Active CHERATUSSIN AC 100-10 MG/5ML ORAL SYRUP 1 tsp by mouth every 4 hours as needed for cough GUAIFENESIN-CODEINE 75882283042 No Longer Active Rikki Harms PA Active MUPIROCIN 2 % EXTERNAL OINTMENT Use in each nostril in am and pm MUPIROCIN 36398448081 No Longer Active Rikki Harms PA Active DOXYCYCLINE HYCLATE 100 MG ORAL CAPSULE Take one bid DOXYCYCLINE HYCLATE 66438387334 No Longer Active Rikki Harms PA Active CLARITIN 10 MG ORAL TABLET 1prn LORATADINE 18585825328 No Longer Active Jocelyne Naff DERMATOLOGIST AND DERMATOPATHOLOGIST Active ASPIRIN 81 MG ORAL TABLET 1qd ASPIRIN 21876011151 No Longer Active Jocelyne Naff DERMATOLOGIST AND DERMATOPATHOLOGIST Active DOXYCYCLINE HYCLATE 100 MG ORAL CAPSULE 1 cap by mouth twice daily DOXYCYCLINE HYCLATE 79724722628 No Longer Active Rikki Harms PA Active VITAMIN D3 35321 UNIT ORAL CAPSULE 1 pill by mouth weekly, for vitamin D deficiency CHOLECALCIFEROL 39705251480 No Longer Active Jennifer Chun MD PhD Active ANASTROZOLE 1 MG ORAL TABLET Take one by mouth daily ANASTROZOLE 95688816538 Active Jennifer Chun MD PhD Active ZITHROMAX 250 MG ORAL TABLET 2 po today, then 1 po q days 2-5 AZITHROMYCIN 07353230931 No Longer Active Rikki Harms PA Active MECLIZINE HCL 25 MG ORAL TABLET 1 prn MECLIZINE HCL 85613388195 No Longer Active Solomon Alamo MD Active CHERATUSSIN AC SYRUP prn as directed GUAIFENESIN- CODEINE SYRP 17997323695 No Longer Active Rikki Harms PA Active MULTIVITAMINS TABS 1qd MULTIPLE VITAMIN 88743039979 No Longer Active Rikki Harms PA Active OMEPRAZOLE 20 MG ORAL CAPSULE DELAYED RELEASE 1 PO Q D OMEPRAZOLE 11080509266 Active Odette AMY Amezquita Active ZITHROMAX Z-CAROLYN 250 MG ORAL TABLET 2x1day,0d4gntn AZITHROMYCIN 30063662596 No Longer Active Jocelyne Lovell DERMATOLOGIST AND DERMATOPATHOLOGIST Active MULTIVITAMINS TABS 1qd MULTIVITAMINS TABS MULTIPLE VITAMIN Inactive CHERATUSSIN AC SYRUP prn as directed CHERATUSSIN AC SYRUP GUAIFENESIN-CODEINE SYRP Inactive MECLIZINE HCL 25 MG ORAL TABLET 1 prn MECLIZINE HCL 25 MG ORAL TABLET 104434 MECLIZINE HCL Inactive ASPIRIN 81 MG ORAL TABLET 1qd ASPIRIN 81 MG ORAL TABLET ASPIRIN Inactive CLARITIN 10 MG ORAL TABLET 1prn CLARITIN 10 MG ORAL TABLET 248990 LORATADINE Inactive DOXYCYCLINE HYCLATE 100 MG ORAL CAPSULE Take one bid DOXYCYCLINE HYCLATE 100 MG ORAL CAPSULE 9537969 DOXYCYCLINE HYCLATE Inactive MUPIROCIN 2 % EXTERNAL OINTMENT Use in each nostril in am and pm MUPIROCIN 2 % EXTERNAL OINTMENT 824999 MUPIROCIN Inactive CHERATUSSIN AC 100-10 MG/5ML ORAL SYRUP 1 tsp by mouth every 4 hours as needed for cough CHERATUSSIN AC 100-10 MG/5ML ORAL SYRUP 166875 GUAIFENESIN-CODEINE Inactive LEVAQUIN 500 MG ORAL TABLET 1 tablet by mouth daily LEVAQUIN 500 MG ORAL TABLET 550266 LEVOFLOXACIN Inactive LEVAQUIN 500 MG ORAL TABLET Take one tablet daily LEVAQUIN 500 MG ORAL TABLET 176112 LEVOFLOXACIN Inactive LEVAQUIN 750 MG ORAL TABLET 1 po qd x 7 days LEVAQUIN 750 MG ORAL TABLET 817233 LEVOFLOXACIN Inactive ALBUTEROL SULFATE (2.5 MG/3ML) 0.083% INHALATION NEBULIZATION SOLUTION one vial per nebulizer every 4-6 hours as needed ALBUTEROL SULFATE (2.5 MG/3ML) 0.083% INHALATION NEBULIZATION SOLUTION 532403 ALBUTEROL SULFATE Inactive TUSSIONEX PENNKINETIC ER 10-8 MG/5ML ORAL SUSPENSION EXTENDED RELEASE 5ml po q12hr PRN Cough TUSSIONEX PENNKINETIC ER 10-8 MG/5ML ORAL SUSPENSION EXTENDED RELEASE HYDROCOD POLST-CHLORPHEN POLST Inactive FLONASE ALLERGY RELIEF 50 MCG/ACT NASAL SUSPENSION spray twice in each nostril one time daily FLONASE ALLERGY RELIEF 50 MCG/ ACT NASAL SUSPENSION 9342238 FLUTICASONE PROPIONATE Inactive BENZONATATE 200 MG ORAL CAPSULE One capsule tid. BENZONATATE 200 MG ORAL CAPSULE 847968 BENZONATATE Inactive CEPHALEXIN 500 MG ORAL CAPSULE Take one four times a day CEPHALEXIN 500 MG ORAL CAPSULE 976211 CEPHALEXIN Inactive TUSSIONEX PENNKINETIC ER 10-8 MG/5ML ORAL SUSPENSION EXTENDED RELEASE 5ml po q12hr PRN Cough TUSSIONEX PENNKINETIC ER 10-8 MG/5ML ORAL SUSPENSION EXTENDED RELEASE HYDROCOD POLST-CHLORPHEN POLST Inactive TESSALON PERLES 100 MG ORAL CAPSULE 1 to 2 tablets by mouth 3 times daily as needed for cough TESSALON PERLES 100 MG ORAL CAPSULE 720214 BENZONATATE Inactive PROAIR HFA 108 (90 BASE) [...] one daily BIOTIN 1000 MCG ORAL TABLET 933485 BIOTIN Inactive ZITHROMAX Z-CAROLYN 250 MG ORAL TABLET 2x1day,1f5vffq ZITHROMAX Z-CAROLYN 250 MG ORAL TABLET 884777 AZITHROMYCIN Inactive ZITHROMAX 250 MG ORAL TABLET 2 po today, then 1 po q days 2-5 ZITHROMAX 250 MG ORAL TABLET 129619 AZITHROMYCIN Inactive VITAMIN D3 96472 UNIT ORAL CAPSULE 1 pill by mouth weekly, for vitamin D deficiency VITAMIN D3 26002 UNIT ORAL CAPSULE CHOLECALCIFEROL Inactive DOXYCYCLINE HYCLATE 100 MG ORAL CAPSULE 1 cap by mouth twice daily DOXYCYCLINE HYCLATE 100 MG ORAL CAPSULE 9354414 DOXYCYCLINE HYCLATE Inactive MEDROL 4 MG ORAL TABLET THERAPY PACK 6 tabs on day 1, 5 tabs on day 2, 4 tabs on day 3, 3 tabs on day 4, 2 tabs on day 5, 1 tab on day 6 MEDROL 4 MG ORAL TABLET THERAPY PACK 801527 METHYLPREDNISOLONE Inactive KEFLEX 500 MG ORAL CAPSULE 1 po qid KEFLEX 500 MG ORAL CAPSULE 164600 CEPHALEXIN Inactive MEDROL 4 MG ORAL TABLET THERAPY PACK 6 tabs on day 1, 5 tabs on day 2, 4 tabs on day 3, 3 tabs on day 4, 2 tabs on day 5, 1 tab on day 6 MEDROL 4 MG ORAL TABLET THERAPY PACK 871183 METHYLPREDNISOLONE Inactive AUGMENTIN 875-125 MG ORAL TABLET 1 po BID x 10 days AUGMENTIN 875-125 MG ORAL TABLET 558070 AMOXICILLIN-POT CLAVULANATE Inactive AUGMENTIN 875-125 MG ORAL TABLET Take one tablet twice a day with food 04/25 AUGMENTIN 875-125 MG ORAL TABLET 023177 AMOXICILLIN-POT CLAVULANATE Inactive DOXYCYCLINE HYCLATE 100 MG ORAL CAPSULE 1 cap by mouth twice daily DOXYCYCLINE HYCLATE 100 MG ORAL CAPSULE 6738282 DOXYCYCLINE HYCLATE Inactive Vital Signs Date Name Value Unit Range Description blood pressure, diastolic 61 mm[Hg] BP rivera blood pressure, systolic 122 mm[Hg] BP sys height E&M 62 [in_us] Bdy height pulse rate E&M 83 /min Heart rate temperature E&M 99.0 [degF] Body temperature weight E&M 202 [lb_av] Weight Measured Diagnostic Results Date Name Value Unit Range Description Lab Report: Comp. Metabolic Panel, Lipid Panel, Thyroid Stimulating Horm ... - Chemistry sodium, serum 145 mmol/L 214-413 9554/07/23 carbon dioxide, venous blood 31.2 mmol/L 21.0-32.0 potassium, serum 4.2 mmol/L 3.5-5.2 chloride, serum 108 mmol/L 98-107 blood glucose 105 mg/dL 65-95 urea nitrogen, blood 16 mg/dL 7-18 creatinine, serum 0.77 mg/dL 0.60-1.30 alanine aminotransferase (SGPT), serum 30 U/L 12-78 aspartate aminotransferase (SGOT), serum 21 U/L 15-37 calcium, serum 8.9 mg/dL 8.5-10.1 bilirubin, serum, total 0.30 mg/dL 0.00-1.00 cholesterol, serum 181 mg/dL 017-585 3506/07/23 triglyceride, serum, fasting 108 mg/dL 30-200 HDL cholesterol, serum 63 mg/dL 32-60 LDL cholesterol, serum 96 mg/dL 0-130 TSH 2.23 m[iU]/mL 0.36-3.74 Encounters Code Encounter Date Provider Facility CPT-75321 Level 3 Est. 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 Patient 16:07:34 CDT [facility] CPT-59630 Level 3 Est. Patient 15:39:01 CDT [facility] CPT-54972 Level 4 Est. Patient 17:31:07 CDT Marta Chinoblas [facility] CPT-54067 Level 3 Est. Patient 05:11:40 CDT Rikki Stearns [facility] CPT-77709 Level 2 Est. Patient 14:30:43 SUPERVISOR [employer] Marta Caalluisblas [facility] CPT-38374 Level 4 Est. Patient 09:14:36 SUPERVISOR [employer] Rikki Daryn GRANADOS [facility] CPT-32770 Level 2 Est. Patient 09:07:32 CDT Marta Viramontes [facility] CPT-28660 Level 4 Est. Patient 11:55:00 CDT Rikki Stearns [facility] CPT-72391 Level 3 Est. Patient 13:25:16 CDT Jennifer Chun MD PhD [facility] CPT-50778 Level 3 Est. Patient 17:31:22 CDT Solomon Alamo MD [facility] CPT-83779 Level 3 Est. Patient 08:02:14 CDT Solomon Alamo MD [facility] CPT-88287 Level 3 Est. Patient 17:23:53 CDT Rikki Stearns [facility] CPT-09912 Level 3 Est. Patient 11:22:41 CDT Darryn Hearn [facility] Procedures Code Procedure Name Date Entry Date Standard Description CPT-51395 TSH - LAB USE ONLY 12:16:46 CDT CPT-72451 Lipid - LAB USE ONLY 12:16:46 CDT CPT-08734 CMP - LAB USE ONLY 12:16:46 CDT CPT-17228 CBC - LAB USE ONLY 12:16:46 CDT CPT-51021 Venipuncture Draw Fee 12:16:46 CDT CPT-96827 Venipuncture Draw Fee 16:09:39 CDT CPT-39204 Venipuncture Draw Fee 12:43:48 [employer] CPT-69650 BMP - LAB USE ONLY 10:32:33 [employer] CPT-22178 Venipuncture Draw Fee 10:32:33 [employer] CPT-56298 Magnesium - LAB USE ONLY 09:54:30 CDT CPT-34507 TSH - LAB USE ONLY 09:54:30 CDT CPT-17689 Lipid - LAB USE ONLY 09:54:30 CDT CPT-31989 Venipuncture Draw Fee 09:54:29 CDT CPT-35755 Venipuncture Draw Fee 18:27:04 CDT CPT-91725 Chest 2V Frontal and Lat 10:57:00 [employer] CPT-36092 Venipuncture Draw Fee 10:56:59 [employer] CPT-19027 Venipuncture Draw Fee 09:22:28 [employer] CPT-72364 Chest 2V Frontal and Lat 09:22:27 [employer] CPT-I/D I/D Abscess 09:43:13 CDT CPT-76306 Venipuncture Draw Fee 08:16:46 [employer] CPT-00636 Venipuncture Draw Fee 08:18:55 [employer] CPT-95379 Venipuncture Draw Fee 08:31:18 [employer] CPT-64976 Venipuncture Draw Fee 11:42:52 [employer] CPT-77520 Venipuncture Draw Fee 13:26:37 [employer] CPT-72834 Venipuncture Draw Fee 09:23:38 [employer] CPT-000 Give Appropriate Tetanus Booster 10:23:50 CDT CPT-62480 Bone Density 08:28:45 CDT CPT-35807 Bone Density 11:35:15 CDT CPT-PV Prev. Care Visit 12:19:00 CDT CPT-03134 Venipuncture Draw Fee 15:02:58 CDT
--- OUTSIDE RECORDS SUMMARY | 2018-01-19 06:42 | XMS REPORT | Clinical Summary ---
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 Family history of malignant neoplasm of gastrointestinal [...] (natural) Breast cancer 174.9 Resolved Marta Viramontes SALES AGENT PROTECTIVE SERVICE Malignant neoplasm of breast (female), unspecified Vitamin [...] Adenocarcinoma, right breast 174.9 Active Alfreda Anthony ARMORED SERVICE TECHNICIAN Malignant neoplasm of breast (female), unspecified Female [...] Ingrown toenail, left 703.0 Resolved Marta Yokum SALES AGENT PROTECTIVE SERVICE Ingrowing nail cellulitis, finger, right 681.00 Resolved Marta Yokum SALES AGENT PROTECTIVE SERVICE Cellulitis and abscess of finger, unspecified Cough 786.2 Resolved Marta Yokum SALES AGENT PROTECTIVE SERVICE Cough Bronchitis, acute 466.0 Active Marta Yokum SALES AGENT PROTECTIVE SERVICE Acute bronchitis Breast microcalcification ICD-793.81 Inactive Jennifer Chun MD PhD Abnormal Mammogram ICD-793.80 Inactive Jennifer Chun MD PhD Breast cancer ICD-174.9 Inactive Marta Viramontes SALES AGENT PROTECTIVE SERVICE Soft tissue infection ICD-528.9 Inactive Rikki Stearns PA Abscess, skin ICD-682.9 Inactive Rikki Stearns PA Cellulitis, 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 Rikki Harms PA Rash ICD-782.1 Inactive Rikki Stearns PA Upper respiratory infection, acute ICD-465.9 Inactive Rikki Stearns PA Chemotherapy ICD-V58.11 Inactive Rikki Stearns PA Cough, chronic ICD-786.2 Inactive Rikki Stearns PA Ingrown toenail, left ICD-703.0 Inactive Marta Viramontes SALES AGENT PROTECTIVE SERVICE cellulitis, finger, right ICD-681.00 Inactive Marta Maganaum SALES AGENT PROTECTIVE SERVICE Cough ICD-786.2 Inactive Marta Viramontes SALES AGENT PROTECTIVE SERVICE Medication List Medication Instructions Start Date Stop Date Generic Name NDC Status Provider Patient Instruction DULOXETINE HCL 60 MG ORAL CAPSULE DELAYED RELEASE PARTICLES 1 pill daily, for depression DULOXETINE HCL 49918187065 Active Marta Viramontes APRN Active VITAMIN E 400 UNIT ORAL CAPSULE 2 twice a day VITAMIN E 04897989386 Active Marta Viramontes APRN Active NIACIN ER 500 MG ORAL TABLET EXTENDED RELEASE Take one daily NIACIN 64586377747 Active Marta Viramontes SALES AGENT PROTECTIVE SERVICE Active BIOTIN 1000 MCG ORAL TABLET Take one daily BIOTIN 72322571419 No Longer Active Marta Viramontes APRN Active B COMPLEX 50 ORAL TABLET EXTENDED RELEASE Take one by mouth daily B COMPLEX VITAMINS 87502159827 Active Marta Yokum SALES AGENT PROTECTIVE SERVICE Active TUSSIONEX PENNKINETIC ER 10-8 MG/5ML ORAL SUSPENSION EXTENDED RELEASE 5ml po q12hr PRN Cough HYDROCOD POLST-CHLORPHEN POLST 69247094193 No Longer Active Marta Yokum SALES AGENT PROTECTIVE SERVICE Active PROAIR HFA 108 (90 BASE) MCG/ACT INHALATION AEROSOL SOLUTION 2 puffs four times a day as needed ALBUTEROL SULFATE 16970332813 No Longer Active Marta Yokum SALES AGENT PROTECTIVE SERVICE Active DOXYCYCLINE HYCLATE 100 MG ORAL CAPSULE 1 cap by mouth twice daily DOXYCYCLINE HYCLATE 98823066167 No Longer Active Marta Yokum SALES AGENT PROTECTIVE SERVICE Active PROAIR HFA 108 (90 BASE) MCG/ACT INHALATION AEROSOL SOLUTION 2 puffs four times a day as needed ALBUTEROL SULFATE 30846413822 Active Marta Yokum SALES AGENT PROTECTIVE SERVICE Active AUGMENTIN 875-125 MG ORAL TABLET Take one tablet twice a day with food 04/25 AMOXICILLIN-POT CLAVULANATE 28590247566 No Longer Active Marta Yokum SALES AGENT PROTECTIVE SERVICE Active TESSALON PERLES 100 MG ORAL CAPSULE 1 to 2 tablets by mouth 3 times daily as needed for cough BENZONATATE 05606476595 No Longer Active Marta Yokum SALES AGENT PROTECTIVE SERVICE Active AUGMENTIN 875-125 MG ORAL TABLET 1 po BID x 10 days AMOXICILLIN-POT CLAVULANATE 03869216624 No Longer Active Marta Yokum SALES AGENT PROTECTIVE SERVICE Active MEDROL 4 MG ORAL TABLET THERAPY PACK 6 tabs on day 1, 5 tabs on day 2, 4 tabs on day 3, 3 tabs on day 4, 2 tabs on day 5, 1 tab on day 6 METHYLPREDNISOLONE 27739781825 No Longer Active Marta Yokum SALES AGENT PROTECTIVE SERVICE Active KEFLEX 500 MG ORAL CAPSULE 1 po qid CEPHALEXIN 93705678740 No Longer Active Marta Yokum SALES AGENT PROTECTIVE SERVICE Active TUSSIONEX PENNKINETIC ER 10-8 MG/5ML ORAL SUSPENSION EXTENDED RELEASE 5ml po q12hr PRN Cough HYDROCOD POLST-CHLORPHEN POLST 15377646357 No Longer Active Marta Viramontes APRN Active VITAMIN D3 36815 UNIT ORAL CAPSULE 1 qWeek x 4 months for vitamin D deficiency CHOLECALCIFEROL 27945361325 Active Marta Viramontes APRN Active CEPHALEXIN 500 MG ORAL CAPSULE Take one four times a day CEPHALEXIN 77683747565 No Longer Active Marta Viramontes APRN Active VITAMIN C 500 MG ORAL CAPSULE Take one daily ASCORBIC ACID 15569916617 Active Rikki Harms PA Active BENZONATATE 200 MG ORAL CAPSULE One capsule tid. BENZONATATE 80286672648 No Longer Active Rikki Harms PA Active FLONASE ALLERGY RELIEF 50 MCG/ACT NASAL SUSPENSION spray twice in each nostril one time daily FLUTICASONE PROPIONATE 57890199965 No Longer Active Rikki Harms PA Active TUSSIONEX PENNKINETIC ER 10-8 MG/5ML ORAL SUSPENSION EXTENDED RELEASE 5ml po q12hr PRN Cough HYDROCOD POLST-CHLORPHEN POLST 01825129667 No Longer Active Rikki Harms PA Active ALBUTEROL SULFATE (2.5 MG/3ML) 0.083% INHALATION NEBULIZATION SOLUTION one vial per nebulizer every 4-6 hours as needed ALBUTEROL SULFATE 58139175372 No Longer Active Rikki Harms PA Active MEDROL 4 MG ORAL TABLET THERAPY PACK 6 tabs on day 1, 5 tabs on day 2, 4 tabs on day 3, 3 tabs on day 4, 2 tabs on day 5, 1 tab on day 6 METHYLPREDNISOLONE 46510947721 No Longer Active Rikki Harms PA Active LEVAQUIN 750 MG ORAL TABLET 1 po qd x 7 days LEVOFLOXACIN 28252564876 No Longer Active Rikki Harms PA Active LEVAQUIN 500 MG ORAL TABLET Take one tablet daily LEVOFLOXACIN 45715347963 No Longer Active Rikki Harms PA Active LEVAQUIN 500 MG ORAL TABLET 1 tablet by mouth daily LEVOFLOXACIN 59575904905 No Longer Active Marta Viramontes SALES AGENT PROTECTIVE SERVICE Active CHERATUSSIN AC 100-10 MG/5ML ORAL SYRUP 1 tsp by mouth every 4 hours as needed for cough GUAIFENESIN-CODEINE 87777872730 No Longer Active Rikki Harms PA Active MUPIROCIN 2 % EXTERNAL OINTMENT Use in each nostril in am and pm MUPIROCIN 50112416764 No Longer Active Rikki Harms PA Active DOXYCYCLINE HYCLATE 100 MG ORAL CAPSULE Take one bid DOXYCYCLINE HYCLATE 07123948226 No Longer Active Rikki Harms PA Active CLARITIN 10 MG ORAL TABLET 1prn LORATADINE 91966639638 No Longer Active Jocelyne Naff LIVESTOCK BRANDS INSPECTOR Active ASPIRIN 81 MG ORAL TABLET 1qd ASPIRIN 77269686530 No Longer Active Jocelyne Naff LIVESTOCK BRANDS INSPECTOR Active DOXYCYCLINE HYCLATE 100 MG ORAL CAPSULE 1 cap by mouth twice daily DOXYCYCLINE HYCLATE 18148879644 No Longer Active Rikki Harms PA Active VITAMIN D3 10652 UNIT ORAL CAPSULE 1 pill by mouth weekly, for vitamin D deficiency CHOLECALCIFEROL 73252797334 No Longer Active Jennifer Chun MD PhD Active ANASTROZOLE 1 MG ORAL TABLET Take one by mouth daily ANASTROZOLE 58545685185 Active Jennifer Chun MD PhD Active ZITHROMAX 250 MG ORAL TABLET 2 po today, then 1 po q days 2-5 AZITHROMYCIN 48969074438 No Longer Active Rikki Harms PA Active MECLIZINE HCL 25 MG ORAL TABLET 1 prn MECLIZINE HCL 31261263323 No Longer Active Solomon Alamo MD Active CHERATUSSIN AC SYRUP prn as directed GUAIFENESIN- CODEINE SYRP 29266189086 No Longer Active Rikki Harms PA Active MULTIVITAMINS TABS 1qd MULTIPLE VITAMIN 49521877475 No Longer Active Rikki Harms PA Active OMEPRAZOLE 20 MG ORAL CAPSULE DELAYED RELEASE 1 PO Q D OMEPRAZOLE 58664503438 Active Odette AMY Amezquita Active ZITHROMAX Z-CAROLYN 250 MG ORAL TABLET 2x1day,7b3ygse AZITHROMYCIN 94833015027 No Longer Active Jocelyne Lovell LIVESTOCK BRANDS INSPECTOR Active MULTIVITAMINS TABS 1qd MULTIVITAMINS TABS MULTIPLE VITAMIN Inactive CHERATUSSIN AC SYRUP prn as directed CHERATUSSIN AC SYRUP GUAIFENESIN-CODEINE SYRP Inactive MECLIZINE HCL 25 MG ORAL TABLET 1 prn MECLIZINE HCL 25 MG ORAL TABLET 605733 MECLIZINE HCL Inactive ASPIRIN 81 MG ORAL TABLET 1qd ASPIRIN 81 MG ORAL TABLET ASPIRIN Inactive CLARITIN 10 MG ORAL TABLET 1prn CLARITIN 10 MG ORAL TABLET 144874 LORATADINE Inactive DOXYCYCLINE HYCLATE 100 MG ORAL CAPSULE Take one bid DOXYCYCLINE HYCLATE 100 MG ORAL CAPSULE 6704434 DOXYCYCLINE HYCLATE Inactive MUPIROCIN 2 % EXTERNAL OINTMENT Use in each nostril in am and pm MUPIROCIN 2 % EXTERNAL OINTMENT 981065 MUPIROCIN Inactive CHERATUSSIN AC 100-10 MG/5ML ORAL SYRUP 1 tsp by mouth every 4 hours as needed for cough CHERATUSSIN AC 100-10 MG/5ML ORAL SYRUP 578504 GUAIFENESIN-CODEINE Inactive LEVAQUIN 500 MG ORAL TABLET 1 tablet by mouth daily LEVAQUIN 500 MG ORAL TABLET 769712 LEVOFLOXACIN Inactive LEVAQUIN 500 MG ORAL TABLET Take one tablet daily LEVAQUIN 500 MG ORAL TABLET 821344 LEVOFLOXACIN Inactive LEVAQUIN 750 MG ORAL TABLET 1 po qd x 7 days LEVAQUIN 750 MG ORAL TABLET 512152 LEVOFLOXACIN Inactive ALBUTEROL SULFATE (2.5 MG/3ML) 0.083% INHALATION NEBULIZATION SOLUTION one vial per nebulizer every 4-6 hours as needed ALBUTEROL SULFATE (2.5 MG/3ML) 0.083% INHALATION NEBULIZATION SOLUTION 571258 ALBUTEROL SULFATE Inactive TUSSIONEX PENNKINETIC ER 10-8 MG/5ML ORAL SUSPENSION EXTENDED RELEASE 5ml po q12hr PRN Cough TUSSIONEX PENNKINETIC ER 10-8 MG/5ML ORAL SUSPENSION EXTENDED RELEASE HYDROCOD POLST-CHLORPHEN POLST Inactive FLONASE ALLERGY RELIEF 50 MCG/ACT NASAL SUSPENSION spray twice in each nostril one time daily FLONASE ALLERGY RELIEF 50 MCG/ ACT NASAL SUSPENSION 8015596 FLUTICASONE PROPIONATE Inactive BENZONATATE 200 MG ORAL CAPSULE One capsule tid. BENZONATATE 200 MG ORAL CAPSULE 940870 BENZONATATE Inactive CEPHALEXIN 500 MG ORAL CAPSULE Take one four times a day CEPHALEXIN 500 MG ORAL CAPSULE 339284 CEPHALEXIN Inactive TUSSIONEX PENNKINETIC ER 10-8 MG/5ML ORAL SUSPENSION EXTENDED RELEASE 5ml po q12hr PRN Cough TUSSIONEX PENNKINETIC ER 10-8 MG/5ML ORAL SUSPENSION EXTENDED RELEASE HYDROCOD POLST-CHLORPHEN POLST Inactive TESSALON PERLES 100 MG ORAL CAPSULE 1 to 2 tablets by mouth 3 times daily as needed for cough TESSALON PERLES 100 MG ORAL CAPSULE 099875 BENZONATATE Inactive PROAIR HFA 108 (90 BASE) [...] one daily BIOTIN 1000 MCG ORAL TABLET 888215 BIOTIN Inactive ZITHROMAX Z-CAROLYN 250 MG ORAL TABLET 2x1day,0w8egoz ZITHROMAX Z-CAROLYN 250 MG ORAL TABLET 611175 AZITHROMYCIN Inactive ZITHROMAX 250 MG ORAL TABLET 2 po today, then 1 po q days 2-5 ZITHROMAX 250 MG ORAL TABLET 482655 AZITHROMYCIN Inactive VITAMIN D3 89333 UNIT ORAL CAPSULE 1 pill by mouth weekly, for vitamin D deficiency VITAMIN D3 85866 UNIT ORAL CAPSULE CHOLECALCIFEROL Inactive DOXYCYCLINE HYCLATE 100 MG ORAL CAPSULE 1 cap by mouth twice daily DOXYCYCLINE HYCLATE 100 MG ORAL CAPSULE 8806506 DOXYCYCLINE HYCLATE Inactive MEDROL 4 MG ORAL TABLET THERAPY PACK 6 tabs on day 1, 5 tabs on day 2, 4 tabs on day 3, 3 tabs on day 4, 2 tabs on day 5, 1 tab on day 6 MEDROL 4 MG ORAL TABLET THERAPY PACK 845797 METHYLPREDNISOLONE Inactive KEFLEX 500 MG ORAL CAPSULE 1 po qid KEFLEX 500 MG ORAL CAPSULE 711344 CEPHALEXIN Inactive MEDROL 4 MG ORAL TABLET THERAPY PACK 6 tabs on day 1, 5 tabs on day 2, 4 tabs on day 3, 3 tabs on day 4, 2 tabs on day 5, 1 tab on day 6 MEDROL 4 MG ORAL TABLET THERAPY PACK 359771 METHYLPREDNISOLONE Inactive AUGMENTIN 875-125 MG ORAL TABLET 1 po BID x 10 days AUGMENTIN 875-125 MG ORAL TABLET 592240 AMOXICILLIN-POT CLAVULANATE Inactive AUGMENTIN 875-125 MG ORAL TABLET Take one tablet twice a day with food 04/25 AUGMENTIN 875-125 MG ORAL TABLET 069141 AMOXICILLIN-POT CLAVULANATE Inactive DOXYCYCLINE HYCLATE 100 MG ORAL CAPSULE 1 cap by mouth twice daily DOXYCYCLINE HYCLATE 100 MG ORAL CAPSULE 8374616 DOXYCYCLINE HYCLATE Inactive Vital Signs Date Name [...] ... - Chemistry sodium, serum 145 mmol/L 498-969 3283/07/23 carbon dioxide, venous blood 31.2 mmol/L 21.0-32.0 potassium, serum 4.2 mmol/L 3.5-5.2 chloride, serum 108 mmol/L 98-107 blood glucose 105 mg/dL 65-95 urea nitrogen, blood 16 mg/dL 7-18 creatinine, serum 0.77 mg/dL 0.60-1.30 alanine aminotransferase (SGPT), serum 30 U/L 12-78 aspartate aminotransferase (SGOT), serum 21 U/L 15-37 calcium, serum 8.9 mg/dL 8.5-10.1 bilirubin, serum, total 0.30 mg/dL 0.00-1.00 cholesterol, serum 181 mg/dL 582-794 0496/07/23 triglyceride, serum, fasting 108 mg/dL 30-200 HDL cholesterol, serum 63 mg/dL 32-60 LDL cholesterol, serum 96 mg/dL 0-130 TSH 2.23 m[iU]/mL 0.36-3.74 Encounters Code Encounter Date Provider Facility CPT-27079 Level 3 Est. Patient 22:53:06 OCCUPATIONAL THERAPIST HOME BASED [facility] Level 3 Est. Patient 16:07:34 CDT [facility] CPT-35560 Level 3 Est. Patient 15:39:01 CDT [facility] CPT-71979 Level 4 Est. Patient 17:31:07 CDT Marta Viramontes [facility] [place] CPT-49085 Level 3 Est. Patient 05:11:40 CDT Rikki GRANADOS [facility] CPT-70169 Level 2 Est. Patient 14:30:43 OCCUPATIONAL THERAPIST HOME BASED [facility] Level 4 Est. Patient 09:14:36 OCCUPATIONAL THERAPIST HOME BASED Rikki GRANADOS [facility] CPT-28384 Level 2 Est. Patient 09:07:[address] [facility] Level 4 Est. Patient 11:55:00 CDT Rikki GRANADOS [facility] CPT-47464 Level 3 Est. Patient 13:25:16 CDT Jennifer Chun MD PhD [facility] CPT-42828 Level 3 Est. Patient 17:31:22 CDT Solomon Alamo MD [facility] CPT-10190 Level 3 Est. Patient 08:02:14 CDT Solomon Alamo MD [facility] CPT-79443 Level 3 Est. Patient 17:23:53 CDT Rikki Stearns [facility] CPT-94927 Level 3 Est. Patient 11:22:41 CDT Darryn Hearn [facility] Procedures Code Procedure Name Date Entry Date Standard Description CPT-83079 TSH - LAB USE ONLY 12:16:46 CDT CPT-39564 Lipid - LAB USE ONLY 12:16:46 CDT CPT-05479 CMP - LAB USE ONLY 12:16:46 CDT CPT-39046 CBC - LAB USE ONLY 12:16:46 CDT CPT-27355 Venipuncture Draw Fee 12:16:46 CDT CPT-41534 Venipuncture Draw Fee 16:09:39 CDT CPT-91183 Venipuncture Draw Fee 12:43:48 OCCUPATIONAL THERAPIST HOME BASED CPT-80971 BMP - LAB USE ONLY 10:32:33 OCCUPATIONAL THERAPIST HOME BASED CPT-55814 Venipuncture Draw Fee 10:32:33 OCCUPATIONAL THERAPIST HOME BASED CPT-61831 Magnesium - LAB USE ONLY 09:54:30 CDT CPT-37997 TSH - LAB USE ONLY 09:54:30 CDT CPT-20361 Lipid - LAB USE ONLY 09:54:30 CDT CPT-69419 Venipuncture Draw Fee 09:54:29 CDT CPT-40882 Venipuncture Draw Fee 18:27:04 CDT CPT-74742 Chest 2V Frontal and Lat 10:57:00 OCCUPATIONAL THERAPIST HOME BASED CPT-82537 Venipuncture Draw Fee 10:56:59 OCCUPATIONAL THERAPIST HOME BASED CPT-09463 Venipuncture Draw Fee 09:22:28 OCCUPATIONAL THERAPIST HOME BASED CPT-55815 Chest 2V Frontal and Lat 09:22:27 OCCUPATIONAL THERAPIST HOME BASED CPT-I/D I/D Abscess 09:43:13 CDT CPT-33663 Venipuncture Draw Fee 08:16:46 OCCUPATIONAL THERAPIST HOME BASED CPT-80724 Venipuncture Draw Fee 08:18:55 OCCUPATIONAL THERAPIST HOME BASED CPT-86015 Venipuncture Draw Fee 08:31:18 OCCUPATIONAL THERAPIST HOME BASED CPT-56150 Venipuncture Draw Fee 11:42:52 OCCUPATIONAL THERAPIST HOME BASED CPT-56829 Venipuncture Draw Fee 13:26:37 OCCUPATIONAL THERAPIST HOME BASED CPT-24844 Venipuncture Draw Fee 09:23:38 OCCUPATIONAL THERAPIST HOME BASED CPT-000 Give Appropriate Tetanus Booster 10:23:50 CDT CPT-96749 Bone Density 08:28:45 CDT CPT-65254 Bone Density 11:35:15 CDT CPT-PV Prev. Care Visit 12:19:00 CDT CPT-63537 Venipuncture Draw Fee 15:02:58 CDT
--- OUTSIDE RECORDS SUMMARY | 2018-01-19 06:43 | XMS REPORT | Clinical Summary ---
Author Author Admin, QUITA Organization [facility] MD [place] Address Unknown Phone Unavailable Allergies, Adverse Reactions, Alerts Allergy Name Reaction Description Start Date Severity Status Provider SULFA facial swelling Critical Active Jocelyne Naff STATISTICAL MACHINE MECHANIC Conditions or Problems Problem Name Problem Code Onset Date Status Entry Date Provider Comment Standard Description Annotate G E R D 530.81 Active Jocelyne Naff STATISTICAL MACHINE MECHANIC Esophageal reflux FH COLON CANCER V16.0 Active Jocelyne Naff STATISTICAL MACHINE MECHANIC Family history of malignant neoplasm of gastrointestinal [...] (natural) Breast cancer 174.9 Resolved Marta Viramontes LUMBER PILER Malignant neoplasm of breast (female), unspecified Vitamin [...] Adenocarcinoma, right breast 174.9 Active Alfreda Anthony COAT FITTER Malignant neoplasm of breast (female), unspecified Female [...] Ingrown toenail, left 703.0 Resolved Marta Yokum LUMBER PILER Ingrowing nail cellulitis, finger, right 681.00 Resolved Marta Yokum LUMBER PILER Cellulitis and abscess of finger, unspecified Cough 786.2 Resolved Marta Yokum LUMBER PILER Cough Bronchitis, acute 466.0 Active Marta Yokum LUMBER PILER Acute bronchitis Breast microcalcification ICD-793.81 Inactive Jennifer Chun MD PhD Abnormal Mammogram ICD-793.80 Inactive Jennifer Chun MD PhD Breast cancer ICD-174.9 Inactive Marta Viramontes LUMBER PILER Soft tissue infection ICD-528.9 Inactive Rikki Stearns PA Abscess, skin ICD-682.9 Inactive Rikki Harms PA Cellulitis, 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 Rikki Harms PA Rash ICD-782.1 Inactive Rikki Harms PA Upper respiratory infection, acute ICD-465.9 Inactive Rikki Harms PA Chemotherapy ICD-V58.11 Inactive Rikki Stearns PA Cough, chronic ICD-786.2 Inactive Rikki Stearns PA Ingrown toenail, left ICD-703.0 Inactive Marta Viramontes LUMBER PILER cellulitis, finger, right ICD-681.00 Inactive Marta Maganaum LUMBER PILER Cough ICD-786.2 Inactive Marta Maganaum LUMBER PILER Medication List Medication Instructions Start Date Stop Date Generic Name NDC Status Provider Patient Instruction DULOXETINE HCL 60 MG ORAL CAPSULE DELAYED RELEASE PARTICLES 1 pill daily, for depression DULOXETINE HCL 57431071765 Active Marta Viramonets APRN Active VITAMIN E 400 UNIT ORAL CAPSULE 2 twice a day VITAMIN E 09237682597 Active Marta Viramontes APRN Active NIACIN ER 500 MG ORAL TABLET EXTENDED RELEASE Take one daily NIACIN 37837542208 Active Marta Viramontes LUMBER PILER Active BIOTIN 1000 MCG ORAL TABLET Take one daily BIOTIN 71379270245 No Longer Active Marta Viramontes APRN Active B COMPLEX 50 ORAL TABLET EXTENDED RELEASE Take one by mouth daily B COMPLEX VITAMINS 52236799774 Active Marta Yokum LUMBER PILER Active TUSSIONEX PENNKINETIC ER 10-8 MG/5ML ORAL SUSPENSION EXTENDED RELEASE 5ml po q12hr PRN Cough HYDROCOD POLST-CHLORPHEN POLST 69189562186 No Longer Active Marta Yokum LUMBER PILER Active PROAIR HFA 108 (90 BASE) MCG/ACT INHALATION AEROSOL SOLUTION 2 puffs four times a day as needed ALBUTEROL SULFATE 47485814945 No Longer Active Marta Yokum LUMBER PILER Active DOXYCYCLINE HYCLATE 100 MG ORAL CAPSULE 1 cap by mouth twice daily DOXYCYCLINE HYCLATE 14799678586 No Longer Active Marta Yokum LUMBER PILER Active PROAIR HFA 108 (90 BASE) MCG/ACT INHALATION AEROSOL SOLUTION 2 puffs four times a day as needed ALBUTEROL SULFATE 59922370648 Active Marta Yokum LUMBER PILER Active AUGMENTIN 875-125 MG ORAL TABLET Take one tablet twice a day with food 04/25 AMOXICILLIN-POT CLAVULANATE 34763188439 No Longer Active Marta Yokum LUMBER PILER Active TESSALON PERLES 100 MG ORAL CAPSULE 1 to 2 tablets by mouth 3 times daily as needed for cough BENZONATATE 25503850559 No Longer Active Marta Yokum LUMBER PILER Active AUGMENTIN 875-125 MG ORAL TABLET 1 po BID x 10 days AMOXICILLIN-POT CLAVULANATE 62160281727 No Longer Active Marta Yokum LUMBER PILER Active MEDROL 4 MG ORAL TABLET THERAPY PACK 6 tabs on day 1, 5 tabs on day 2, 4 tabs on day 3, 3 tabs on day 4, 2 tabs on day 5, 1 tab on day 6 METHYLPREDNISOLONE 97027117095 No Longer Active Marta Yokum LUMBER PILER Active KEFLEX 500 MG ORAL CAPSULE 1 po qid CEPHALEXIN 89787724559 No Longer Active Marta Yokum LUMBER PILER Active TUSSIONEX PENNKINETIC ER 10-8 MG/5ML ORAL SUSPENSION EXTENDED RELEASE 5ml po q12hr PRN Cough HYDROCOD POLST-CHLORPHEN POLST 07620076876 No Longer Active Marta Viramontes APRN Active VITAMIN D3 13176 UNIT ORAL CAPSULE 1 qWeek x 4 months for vitamin D deficiency CHOLECALCIFEROL 28922106251 Active Marta Viramontes APRN Active CEPHALEXIN 500 MG ORAL CAPSULE Take one four times a day CEPHALEXIN 81355320568 No Longer Active Marta Viramontes APRN Active VITAMIN C 500 MG ORAL CAPSULE Take one daily ASCORBIC ACID 83806257459 Active Rikki Harms PA Active BENZONATATE 200 MG ORAL CAPSULE One capsule tid. BENZONATATE 72219234820 No Longer Active Rikki Harms PA Active FLONASE ALLERGY RELIEF 50 MCG/ACT NASAL SUSPENSION spray twice in each nostril one time daily FLUTICASONE PROPIONATE 99595040213 No Longer Active Rikki Harms PA Active TUSSIONEX PENNKINETIC ER 10-8 MG/5ML ORAL SUSPENSION EXTENDED RELEASE 5ml po q12hr PRN Cough HYDROCOD POLST-CHLORPHEN POLST 83705688247 No Longer Active Rikki Harms PA Active ALBUTEROL SULFATE (2.5 MG/3ML) 0.083% INHALATION NEBULIZATION SOLUTION one vial per nebulizer every 4-6 hours as needed ALBUTEROL SULFATE 04107356579 No Longer Active Rikki Harms PA Active MEDROL 4 MG ORAL TABLET THERAPY PACK 6 tabs on day 1, 5 tabs on day 2, 4 tabs on day 3, 3 tabs on day 4, 2 tabs on day 5, 1 tab on day 6 METHYLPREDNISOLONE 60550711089 No Longer Active Rikki Harms PA Active LEVAQUIN 750 MG ORAL TABLET 1 po qd x 7 days LEVOFLOXACIN 76817811842 No Longer Active Rikki Harms PA Active LEVAQUIN 500 MG ORAL TABLET Take one tablet daily LEVOFLOXACIN 55885410038 No Longer Active Rikki Harms PA Active LEVAQUIN 500 MG ORAL TABLET 1 tablet by mouth daily LEVOFLOXACIN 63051682523 No Longer Active Marta Viramontes LUMBER PILER Active CHERATUSSIN AC 100-10 MG/5ML ORAL SYRUP 1 tsp by mouth every 4 hours as needed for cough GUAIFENESIN-CODEINE 32222177760 No Longer Active Rikki Harms PA Active MUPIROCIN 2 % EXTERNAL OINTMENT Use in each nostril in am and pm MUPIROCIN 95102605290 No Longer Active Rikki Harms PA Active DOXYCYCLINE HYCLATE 100 MG ORAL CAPSULE Take one bid DOXYCYCLINE HYCLATE 26804459429 No Longer Active Rikki Harms PA Active CLARITIN 10 MG ORAL TABLET 1prn LORATADINE 40136456038 No Longer Active Jocelyne Naff STATISTICAL MACHINE MECHANIC Active ASPIRIN 81 MG ORAL TABLET 1qd ASPIRIN 36388233180 No Longer Active Jocelyne Naff STATISTICAL MACHINE MECHANIC Active DOXYCYCLINE HYCLATE 100 MG ORAL CAPSULE 1 cap by mouth twice daily DOXYCYCLINE HYCLATE 30275040038 No Longer Active Rikki Harms PA Active VITAMIN D3 74607 UNIT ORAL CAPSULE 1 pill by mouth weekly, for vitamin D deficiency CHOLECALCIFEROL 87476986429 No Longer Active Jennifer Chun MD PhD Active ANASTROZOLE 1 MG ORAL TABLET Take one by mouth daily ANASTROZOLE 36359412397 Active Jennifer Chun MD PhD Active ZITHROMAX 250 MG ORAL TABLET 2 po today, then 1 po q days 2-5 AZITHROMYCIN 08874398318 No Longer Active Rikki Harms PA Active MECLIZINE HCL 25 MG ORAL TABLET 1 prn MECLIZINE HCL 37807642604 No Longer Active Solomon Alamo MD Active CHERATUSSIN AC SYRUP prn as directed GUAIFENESIN- CODEINE SYRP 47441028054 No Longer Active Rikki Harms PA Active MULTIVITAMINS TABS 1qd MULTIPLE VITAMIN 54192467501 No Longer Active Rikki Harms PA Active OMEPRAZOLE 20 MG ORAL CAPSULE DELAYED RELEASE 1 PO Q D OMEPRAZOLE 67551914844 Active Odette AMY Amezquita Active ZITHROMAX Z-CAROLYN 250 MG ORAL TABLET 2x1day,8h0mzpe AZITHROMYCIN 28004401126 No Longer Active Jocelyne Lovell STATISTICAL MACHINE MECHANIC Active MULTIVITAMINS TABS 1qd MULTIVITAMINS TABS MULTIPLE VITAMIN Inactive CHERATUSSIN AC SYRUP prn as directed CHERATUSSIN AC SYRUP GUAIFENESIN-CODEINE SYRP Inactive MECLIZINE HCL 25 MG ORAL TABLET 1 prn MECLIZINE HCL 25 MG ORAL TABLET 614091 MECLIZINE HCL Inactive ASPIRIN 81 MG ORAL TABLET 1qd ASPIRIN 81 MG ORAL TABLET ASPIRIN Inactive CLARITIN 10 MG ORAL TABLET 1prn CLARITIN 10 MG ORAL TABLET 029536 LORATADINE Inactive DOXYCYCLINE HYCLATE 100 MG ORAL CAPSULE Take one bid DOXYCYCLINE HYCLATE 100 MG ORAL CAPSULE 0523596 DOXYCYCLINE HYCLATE Inactive MUPIROCIN 2 % EXTERNAL OINTMENT Use in each nostril in am and pm MUPIROCIN 2 % EXTERNAL OINTMENT 765671 MUPIROCIN Inactive CHERATUSSIN AC 100-10 MG/5ML ORAL SYRUP 1 tsp by mouth every 4 hours as needed for cough CHERATUSSIN AC 100-10 MG/5ML ORAL SYRUP 161917 GUAIFENESIN-CODEINE Inactive LEVAQUIN 500 MG ORAL TABLET 1 tablet by mouth daily LEVAQUIN 500 MG ORAL TABLET 972284 LEVOFLOXACIN Inactive LEVAQUIN 500 MG ORAL TABLET Take one tablet daily LEVAQUIN 500 MG ORAL TABLET 112820 LEVOFLOXACIN Inactive LEVAQUIN 750 MG ORAL TABLET 1 po qd x 7 days LEVAQUIN 750 MG ORAL TABLET 675088 LEVOFLOXACIN Inactive ALBUTEROL SULFATE (2.5 MG/3ML) 0.083% INHALATION NEBULIZATION SOLUTION one vial per nebulizer every 4-6 hours as needed ALBUTEROL SULFATE (2.5 MG/3ML) 0.083% INHALATION NEBULIZATION SOLUTION 998957 ALBUTEROL SULFATE Inactive TUSSIONEX PENNKINETIC ER 10-8 MG/5ML ORAL SUSPENSION EXTENDED RELEASE 5ml po q12hr PRN Cough TUSSIONEX PENNKINETIC ER 10-8 MG/5ML ORAL SUSPENSION EXTENDED RELEASE HYDROCOD POLST-CHLORPHEN POLST Inactive FLONASE ALLERGY RELIEF 50 MCG/ACT NASAL SUSPENSION spray twice in each nostril one time daily FLONASE ALLERGY RELIEF 50 MCG/ ACT NASAL SUSPENSION 4885683 FLUTICASONE PROPIONATE Inactive BENZONATATE 200 MG ORAL CAPSULE One capsule tid. BENZONATATE 200 MG ORAL CAPSULE 445800 BENZONATATE Inactive CEPHALEXIN 500 MG ORAL CAPSULE Take one four times a day CEPHALEXIN 500 MG ORAL CAPSULE 472306 CEPHALEXIN Inactive TUSSIONEX PENNKINETIC ER 10-8 MG/5ML ORAL SUSPENSION EXTENDED RELEASE 5ml po q12hr PRN Cough TUSSIONEX PENNKINETIC ER 10-8 MG/5ML ORAL SUSPENSION EXTENDED RELEASE HYDROCOD POLST-CHLORPHEN POLST Inactive TESSALON PERLES 100 MG ORAL CAPSULE 1 to 2 tablets by mouth 3 times daily as needed for cough TESSALON PERLES 100 MG ORAL CAPSULE 865705 BENZONATATE Inactive PROAIR HFA 108 (90 BASE) [...] one daily BIOTIN 1000 MCG ORAL TABLET 297450 BIOTIN Inactive ZITHROMAX Z-CAROLYN 250 MG ORAL TABLET 2x1day,[id number] ZITHROMAX Z-CAROLYN 250 MG ORAL TABLET 982135 AZITHROMYCIN Inactive ZITHROMAX 250 MG ORAL TABLET 2 po today, then 1 po q days 2-5 ZITHROMAX 250 MG ORAL TABLET 300120 AZITHROMYCIN Inactive VITAMIN D3 98444 UNIT ORAL CAPSULE 1 pill by mouth weekly, for vitamin D deficiency VITAMIN D3 08889 UNIT ORAL CAPSULE CHOLECALCIFEROL Inactive DOXYCYCLINE HYCLATE 100 MG ORAL CAPSULE 1 cap by mouth twice daily DOXYCYCLINE HYCLATE 100 MG ORAL CAPSULE 6656179 DOXYCYCLINE HYCLATE Inactive MEDROL 4 MG ORAL TABLET THERAPY PACK 6 tabs on day 1, 5 tabs on day 2, 4 tabs on day 3, 3 tabs on day 4, 2 tabs on day 5, 1 tab on day 6 MEDROL 4 MG ORAL TABLET THERAPY PACK 504151 METHYLPREDNISOLONE Inactive KEFLEX 500 MG ORAL CAPSULE 1 po qid KEFLEX 500 MG ORAL CAPSULE 438174 CEPHALEXIN Inactive MEDROL 4 MG ORAL TABLET THERAPY PACK 6 tabs on day 1, 5 tabs on day 2, 4 tabs on day 3, 3 tabs on day 4, 2 tabs on day 5, 1 tab on day 6 MEDROL 4 MG ORAL TABLET THERAPY PACK 026622 METHYLPREDNISOLONE Inactive AUGMENTIN 875-125 MG ORAL TABLET 1 po BID x 10 days AUGMENTIN 875-125 MG ORAL TABLET 438377 AMOXICILLIN-POT CLAVULANATE Inactive AUGMENTIN 875-125 MG ORAL TABLET Take one tablet twice a day with food 04/25 AUGMENTIN 875-125 MG ORAL TABLET 152034 AMOXICILLIN-POT CLAVULANATE Inactive DOXYCYCLINE HYCLATE 100 MG ORAL CAPSULE 1 cap by mouth twice daily DOXYCYCLINE HYCLATE 100 MG ORAL CAPSULE 7755337 DOXYCYCLINE HYCLATE Inactive Vital Signs Date Name [...] ... - Chemistry sodium, serum 145 mmol/L 468-624 8063/07/23 carbon dioxide, venous blood 31.2 mmol/L 21.0-32.0 potassium, serum 4.2 mmol/L 3.5-5.2 chloride, serum 108 mmol/L 98-107 blood glucose 105 mg/dL 65-95 urea nitrogen, blood 16 mg/dL 7-18 creatinine, serum 0.77 mg/dL 0.60-1.30 alanine aminotransferase (SGPT), serum 30 U/L 12-78 aspartate aminotransferase (SGOT), serum 21 U/L 15-37 calcium, serum 8.9 mg/dL 8.5-10.1 bilirubin, serum, total 0.30 mg/dL 0.00-1.00 cholesterol, serum 181 mg/dL 615-912 9189/07/23 triglyceride, serum, fasting 108 mg/dL 30-200 HDL cholesterol, serum 63 mg/dL 32-60 LDL cholesterol, serum 96 mg/dL 0-130 TSH 2.23 m[iU]/mL 0.36-3.74 Encounters Code Encounter Date Provider Facility CPT-65727 Level 3 Est. Patient 22:53:06 DIRECTOR OF CORPORATE RESPONSIBILITY [facility] [place] CPT-56062 Level 3 Est. Patient 16:07:[address] [facility] [place] CPT-47623 Level 3 Est. Patient 15:39:[address] [facility] [place] CPT-34143 Level 4 Est. Patient 17:31:07 CDT Marta Chinoblas [facility] CPT-56943 Level 3 Est. Patient 05:11:40 CDT Rikki Stearns [facility] CPT-59309 Level 2 Est. Patient 14:30:43 DIRECTOR OF CORPORATE RESPONSIBILITY Marta Caalluisblas [facility] CPT-51273 Level 4 Est. Patient 09:14:36 DIRECTOR OF CORPORATE RESPONSIBILITY Rikki Daryn GRANADOS [facility] CPT-48216 Level 2 Est. Patient 09:07:32 CDT Marta Viramontes [facility] CPT-15772 Level 4 Est. Patient 11:55:00 CDT Rikki Stearns [facility] [place] CPT-28126 Level 3 Est. Patient 13:25:16 CDT Jennifer Chun MD PhD [facility] CPT-56197 Level 3 Est. Patient 17:31:22 CDT Solomon Alamo MD [facility] CPT-79781 Level 3 Est. Patient 08:02:14 CDT Solomon Alamo MD [facility] CPT-29101 Level 3 Est. Patient 17:23:53 CDT Rikki Stearns [facility] [place] CPT-38239 Level 3 Est. Patient 11:22:41 CDT Darryn Hearn [facility] [place] Procedures Code Procedure Name Date Entry Date Standard Description CPT-24653 TSH - LAB USE ONLY 12:16:46 CDT CPT-00883 Lipid - LAB USE ONLY 12:16:46 CDT CPT-08588 CMP - LAB USE ONLY 12:16:46 CDT CPT-06836 CBC - LAB USE ONLY 12:16:46 CDT CPT-22174 Venipuncture Draw Fee 12:16:46 CDT CPT-63119 Venipuncture Draw Fee 16:09:39 CDT CPT-98206 Venipuncture Draw Fee 12:43:48 DIRECTOR OF CORPORATE RESPONSIBILITY CPT-80677 BMP - LAB USE ONLY 10:32:33 DIRECTOR OF CORPORATE RESPONSIBILITY CPT-15550 Venipuncture Draw Fee 10:32:33 DIRECTOR OF CORPORATE RESPONSIBILITY CPT-44910 Magnesium - LAB USE ONLY 09:54:30 CDT CPT-38746 TSH - LAB USE ONLY 09:54:30 CDT CPT-65809 Lipid - LAB USE ONLY 09:54:30 CDT CPT-46830 Venipuncture Draw Fee 09:54:29 CDT CPT-55691 Venipuncture Draw Fee 18:27:04 CDT CPT-35715 Chest 2V Frontal and Lat 10:57:00 DIRECTOR OF CORPORATE RESPONSIBILITY CPT-42973 Venipuncture Draw Fee 10:56:59 DIRECTOR OF CORPORATE RESPONSIBILITY CPT-43044 Venipuncture Draw Fee 09:22:28 DIRECTOR OF CORPORATE RESPONSIBILITY CPT-05389 Chest 2V Frontal and Lat 09:22:27 DIRECTOR OF CORPORATE RESPONSIBILITY CPT-I/D I/D Abscess 09:43:13 CDT CPT-85992 Venipuncture Draw Fee 08:16:46 DIRECTOR OF CORPORATE RESPONSIBILITY CPT-21746 Venipuncture Draw Fee 08:18:55 DIRECTOR OF CORPORATE RESPONSIBILITY CPT-57809 Venipuncture Draw Fee 08:31:18 DIRECTOR OF CORPORATE RESPONSIBILITY CPT-44577 Venipuncture Draw Fee 11:42:52 DIRECTOR OF CORPORATE RESPONSIBILITY CPT-49756 Venipuncture Draw Fee 13:26:37 DIRECTOR OF CORPORATE RESPONSIBILITY CPT-66435 Venipuncture Draw Fee 09:23:38 DIRECTOR OF CORPORATE RESPONSIBILITY CPT-000 Give Appropriate Tetanus Booster 10:23:50 CDT CPT-89083 Bone Density 08:28:45 CDT CPT-82201 Bone Density 11:35:15 CDT CPT-PV Prev. Care Visit 12:19:00 CDT CPT-51467 Venipuncture Draw Fee 15:02:58 CDT
--- OUTSIDE RECORDS SUMMARY | 2018-01-19 06:44 | XMS REPORT | Clinical Summary ---
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 Family history of malignant neoplasm of [...] (natural) Breast cancer 174.9 Resolved Marta Viramontes UPPER TIER Malignant neoplasm of breast (female), unspecified Vitamin [...] Adenocarcinoma, right breast 174.9 Active Alfreda Anthony SECRETARY Malignant neoplasm of breast (female), unspecified Female [...] Ingrown toenail, left 703.0 Resolved Marta Yokum UPPER TIER Ingrowing nail cellulitis, finger, right 681.00 Resolved Marta Yokum UPPER TIER Cellulitis and abscess of finger, unspecified Cough 786.2 Resolved Marta Yokum UPPER TIER Cough Bronchitis, acute 466.0 Active Marta Yokum UPPER TIER Acute bronchitis Breast microcalcification ICD-793.81 Inactive Jennifer Chun MD PhD Abnormal Mammogram ICD-793.80 Inactive Jennifer Chun MD PhD Breast cancer ICD-174.9 Inactive Marta Viramontes UPPER TIER Soft tissue infection ICD-528.9 Inactive Rikki Stearns PA Abscess, skin ICD-682.9 Inactive Rikki Harms PA Cellulitis, 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 Rikki Harms PA Rash ICD-782.1 Inactive Rikki Harms PA Upper respiratory infection, acute ICD-465.9 Inactive Rikki Harms PA Chemotherapy ICD-V58.11 Inactive Rikki Stearns PA Cough, chronic ICD-786.2 Inactive Rikki Stearns PA Ingrown toenail, left ICD-703.0 Inactive Marta Viramontes UPPER TIER cellulitis, finger, right ICD-681.00 Inactive Marta Maganaum UPPER TIER Cough ICD-786.2 Inactive Marta Maganaum UPPER TIER Medication List Medication Instructions Start Date Stop Date Generic Name NDC Status Provider Patient Instruction DULOXETINE HCL 60 MG ORAL CAPSULE DELAYED RELEASE PARTICLES 1 pill daily, for depression DULOXETINE HCL 97468164402 Active Marta Viramontes APRN Active VITAMIN E 400 UNIT ORAL CAPSULE 2 twice a day VITAMIN E 62128219730 Active Marta Viramontes APRN Active NIACIN ER 500 MG ORAL TABLET EXTENDED RELEASE Take one daily NIACIN 98160423346 Active Marta Viramontes UPPER TIER Active BIOTIN 1000 MCG ORAL TABLET Take one daily BIOTIN 98794759983 No Longer Active Marta Viramontes APRN Active B COMPLEX 50 ORAL TABLET EXTENDED RELEASE Take one by mouth daily B COMPLEX VITAMINS 55905869549 Active Marta Yokum UPPER TIER Active TUSSIONEX PENNKINETIC ER 10-8 MG/5ML ORAL SUSPENSION EXTENDED RELEASE 5ml po q12hr PRN Cough HYDROCOD POLST-CHLORPHEN POLST 05594641109 No Longer Active Marta Yokum UPPER TIER Active PROAIR HFA 108 (90 BASE) MCG/ACT INHALATION AEROSOL SOLUTION 2 puffs four times a day as needed ALBUTEROL SULFATE 98904345933 No Longer Active Marta Yokum UPPER TIER Active DOXYCYCLINE HYCLATE 100 MG ORAL CAPSULE 1 cap by mouth twice daily DOXYCYCLINE HYCLATE 05697346286 No Longer Active Marta Yokum UPPER TIER Active PROAIR HFA 108 (90 BASE) MCG/ACT INHALATION AEROSOL SOLUTION 2 puffs four times a day as needed ALBUTEROL SULFATE 71733306668 Active Marta Yokum UPPER TIER Active AUGMENTIN 875-125 MG ORAL TABLET Take one tablet twice a day with food 04/25 AMOXICILLIN-POT CLAVULANATE 43698640524 No Longer Active Marta Yokum UPPER TIER Active TESSALON PERLES 100 MG ORAL CAPSULE 1 to 2 tablets by mouth 3 times daily as needed for cough BENZONATATE 76712430149 No Longer Active Marta Yokum UPPER TIER Active AUGMENTIN 875-125 MG ORAL TABLET 1 po BID x 10 days AMOXICILLIN-POT CLAVULANATE 28933842545 No Longer Active Marta Yokum UPPER TIER Active MEDROL 4 MG ORAL TABLET THERAPY PACK 6 tabs on day 1, 5 tabs on day 2, 4 tabs on day 3, 3 tabs on day 4, 2 tabs on day 5, 1 tab on day 6 METHYLPREDNISOLONE 84869504595 No Longer Active Marta Yokum UPPER TIER Active KEFLEX 500 MG ORAL CAPSULE 1 po qid CEPHALEXIN 10502220148 No Longer Active Marta Yokum UPPER TIER Active TUSSIONEX PENNKINETIC ER 10-8 MG/5ML ORAL SUSPENSION EXTENDED RELEASE 5ml po q12hr PRN Cough HYDROCOD POLST-CHLORPHEN POLST 01784452091 No Longer Active Marta Viramontes APRN Active VITAMIN D3 35159 UNIT ORAL CAPSULE 1 qWeek x 4 months for vitamin D deficiency CHOLECALCIFEROL 72003455813 Active Marta Viramontes APRN Active CEPHALEXIN 500 MG ORAL CAPSULE Take one four times a day CEPHALEXIN 85985991120 No Longer Active Marta Viramontes APRN Active VITAMIN C 500 MG ORAL CAPSULE Take one daily ASCORBIC ACID 23251761260 Active Rikki Harms PA Active BENZONATATE 200 MG ORAL CAPSULE One capsule tid. BENZONATATE 82262351729 No Longer Active Rikki Harms PA Active FLONASE ALLERGY RELIEF 50 MCG/ACT NASAL SUSPENSION spray twice in each nostril one time daily FLUTICASONE PROPIONATE 87082161373 No Longer Active Rikki Harms PA Active TUSSIONEX PENNKINETIC ER 10-8 MG/5ML ORAL SUSPENSION EXTENDED RELEASE 5ml po q12hr PRN Cough HYDROCOD POLST-CHLORPHEN POLST 75442367466 No Longer Active Rikki Harms PA Active ALBUTEROL SULFATE (2.5 MG/3ML) 0.083% INHALATION NEBULIZATION SOLUTION one vial per nebulizer every 4-6 hours as needed ALBUTEROL SULFATE 94642040430 No Longer Active Rikki Harms PA Active MEDROL 4 MG ORAL TABLET THERAPY PACK 6 tabs on day 1, 5 tabs on day 2, 4 tabs on day 3, 3 tabs on day 4, 2 tabs on day 5, 1 tab on day 6 METHYLPREDNISOLONE 06253774231 No Longer Active Rikki Harms PA Active LEVAQUIN 750 MG ORAL TABLET 1 po qd x 7 days LEVOFLOXACIN 42514847550 No Longer Active Rikki Harms PA Active LEVAQUIN 500 MG ORAL TABLET Take one tablet daily LEVOFLOXACIN 08913944298 No Longer Active Rikki Harms PA Active LEVAQUIN 500 MG ORAL TABLET 1 tablet by mouth daily LEVOFLOXACIN 55009933706 No Longer Active Marta Viramontes UPPER TIER Active CHERATUSSIN AC 100-10 MG/5ML ORAL SYRUP 1 tsp by mouth every 4 hours as needed for cough GUAIFENESIN-CODEINE 74755617943 No Longer Active Rikki Harms PA Active MUPIROCIN 2 % EXTERNAL OINTMENT Use in each nostril in am and pm MUPIROCIN 08260742963 No Longer Active Rikki Harms PA Active DOXYCYCLINE HYCLATE 100 MG ORAL CAPSULE Take one bid DOXYCYCLINE HYCLATE 95193746679 No Longer Active Rikki Harms PA Active CLARITIN 10 MG ORAL TABLET 1prn LORATADINE 91986540995 No Longer Active 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 Active ASPIRIN 81 MG ORAL TABLET 1qd ASPIRIN 71169361378 No Longer Active 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 Active DOXYCYCLINE HYCLATE 100 MG ORAL CAPSULE 1 cap by mouth twice daily DOXYCYCLINE HYCLATE 05053341884 No Longer Active Rikki Harms PA Active VITAMIN D3 90986 UNIT ORAL CAPSULE 1 pill by mouth weekly, for vitamin D deficiency CHOLECALCIFEROL 88810639601 No Longer Active Jennifer Chun MD PhD Active ANASTROZOLE 1 MG ORAL TABLET Take one by mouth daily ANASTROZOLE 20921445992 Active Jennifer Chun MD PhD Active ZITHROMAX 250 MG ORAL TABLET 2 po today, then 1 po q days 2-5 AZITHROMYCIN 43915031306 No Longer Active Rikki Harms PA Active MECLIZINE HCL 25 MG ORAL TABLET 1 prn MECLIZINE HCL 31191252611 No Longer Active Solomon Alamo MD Active CHERATUSSIN AC SYRUP prn as directed GUAIFENESIN- CODEINE SYRP 18463302616 No Longer Active Rikki Harms PA Active MULTIVITAMINS TABS 1qd MULTIPLE VITAMIN 92188416027 No Longer Active Rikki Harms PA Active OMEPRAZOLE 20 MG ORAL CAPSULE DELAYED RELEASE 1 PO Q D OMEPRAZOLE 58273904016 Active Odette AMY Amezquita Active ZITHROMAX Z-CAROLYN 250 MG ORAL TABLET 2x1day,1v3urwl AZITHROMYCIN 81292262134 No Longer Active Jocelyne Lovell SNUFF CONTAINER INSPECTOR Active MULTIVITAMINS TABS 1qd MULTIVITAMINS TABS MULTIPLE VITAMIN Inactive CHERATUSSIN AC SYRUP prn as directed CHERATUSSIN AC SYRUP GUAIFENESIN-CODEINE SYRP Inactive MECLIZINE HCL 25 MG ORAL TABLET 1 prn MECLIZINE HCL 25 MG ORAL TABLET 151018 MECLIZINE HCL Inactive ASPIRIN 81 MG ORAL TABLET 1qd ASPIRIN 81 MG ORAL TABLET ASPIRIN Inactive CLARITIN 10 MG ORAL TABLET 1prn CLARITIN 10 MG ORAL TABLET 815496 LORATADINE Inactive DOXYCYCLINE HYCLATE 100 MG ORAL CAPSULE Take one bid DOXYCYCLINE HYCLATE 100 MG ORAL CAPSULE 5618902 DOXYCYCLINE HYCLATE Inactive MUPIROCIN 2 % EXTERNAL OINTMENT Use in each nostril in am and pm MUPIROCIN 2 % EXTERNAL OINTMENT 350469 MUPIROCIN Inactive CHERATUSSIN AC 100-10 MG/5ML ORAL SYRUP 1 tsp by mouth every 4 hours as needed for cough CHERATUSSIN AC 100-10 MG/5ML ORAL SYRUP 620933 GUAIFENESIN-CODEINE Inactive LEVAQUIN 500 MG ORAL TABLET 1 tablet by mouth daily LEVAQUIN 500 MG ORAL TABLET 670194 LEVOFLOXACIN Inactive LEVAQUIN 500 MG ORAL TABLET Take one tablet daily LEVAQUIN 500 MG ORAL TABLET 237476 LEVOFLOXACIN Inactive LEVAQUIN 750 MG ORAL TABLET 1 po qd x 7 days LEVAQUIN 750 MG ORAL TABLET 281546 LEVOFLOXACIN Inactive ALBUTEROL SULFATE (2.5 MG/3ML) 0.083% INHALATION NEBULIZATION SOLUTION one vial per nebulizer every 4-6 hours as needed ALBUTEROL SULFATE (2.5 MG/3ML) 0.083% INHALATION NEBULIZATION SOLUTION 727079 ALBUTEROL SULFATE Inactive TUSSIONEX PENNKINETIC ER 10-8 MG/5ML ORAL SUSPENSION EXTENDED RELEASE 5ml po q12hr PRN Cough TUSSIONEX PENNKINETIC ER 10-8 MG/5ML ORAL SUSPENSION EXTENDED RELEASE HYDROCOD POLST-CHLORPHEN POLST Inactive FLONASE ALLERGY RELIEF 50 MCG/ACT NASAL SUSPENSION spray twice in each nostril one time daily FLONASE ALLERGY RELIEF 50 MCG/ ACT NASAL SUSPENSION 7754949 FLUTICASONE PROPIONATE Inactive BENZONATATE 200 MG ORAL CAPSULE One capsule tid. BENZONATATE 200 MG ORAL CAPSULE 460900 BENZONATATE Inactive CEPHALEXIN 500 MG ORAL CAPSULE Take one four times a day CEPHALEXIN 500 MG ORAL CAPSULE 721548 CEPHALEXIN Inactive TUSSIONEX PENNKINETIC ER 10-8 MG/5ML ORAL SUSPENSION EXTENDED RELEASE 5ml po q12hr PRN Cough TUSSIONEX PENNKINETIC ER 10-8 MG/5ML ORAL SUSPENSION EXTENDED RELEASE HYDROCOD POLST-CHLORPHEN POLST Inactive TESSALON PERLES 100 MG ORAL CAPSULE 1 to 2 tablets by mouth 3 times daily as needed for cough TESSALON PERLES 100 MG ORAL CAPSULE 780996 BENZONATATE Inactive PROAIR HFA 108 (90 BASE) [...] one daily BIOTIN 1000 MCG ORAL TABLET 014481 BIOTIN Inactive ZITHROMAX Z-CAROLYN 250 MG ORAL TABLET 2x1day,1z4ghwp ZITHROMAX Z-CAROLYN 250 MG ORAL TABLET 548353 AZITHROMYCIN Inactive ZITHROMAX 250 MG ORAL TABLET 2 po today, then 1 po q days 2-5 ZITHROMAX 250 MG ORAL TABLET 873222 AZITHROMYCIN Inactive VITAMIN D3 33127 UNIT ORAL CAPSULE 1 pill by mouth weekly, for vitamin D deficiency VITAMIN D3 09858 UNIT ORAL CAPSULE CHOLECALCIFEROL Inactive DOXYCYCLINE HYCLATE 100 MG ORAL CAPSULE 1 cap by mouth twice daily DOXYCYCLINE HYCLATE 100 MG ORAL CAPSULE 4925205 DOXYCYCLINE HYCLATE Inactive MEDROL 4 MG ORAL TABLET THERAPY PACK 6 tabs on day 1, 5 tabs on day 2, 4 tabs on day 3, 3 tabs on day 4, 2 tabs on day 5, 1 tab on day 6 MEDROL 4 MG ORAL TABLET THERAPY PACK 966298 METHYLPREDNISOLONE Inactive KEFLEX 500 MG ORAL CAPSULE 1 po qid KEFLEX 500 MG ORAL CAPSULE 306959 CEPHALEXIN Inactive MEDROL 4 MG ORAL TABLET THERAPY PACK 6 tabs on day 1, 5 tabs on day 2, 4 tabs on day 3, 3 tabs on day 4, 2 tabs on day 5, 1 tab on day 6 MEDROL 4 MG ORAL TABLET THERAPY PACK 706288 METHYLPREDNISOLONE Inactive AUGMENTIN 875-125 MG ORAL TABLET 1 po BID x 10 days AUGMENTIN 875-125 MG ORAL TABLET 189479 AMOXICILLIN-POT CLAVULANATE Inactive AUGMENTIN 875-125 MG ORAL TABLET Take one tablet twice a day with food 04/25 AUGMENTIN 875-125 MG ORAL TABLET 393231 AMOXICILLIN-POT CLAVULANATE Inactive DOXYCYCLINE HYCLATE 100 MG ORAL CAPSULE 1 cap by mouth twice daily DOXYCYCLINE HYCLATE 100 MG ORAL CAPSULE 0876060 DOXYCYCLINE HYCLATE Inactive Vital Signs Date Name Value Unit Range Description blood pressure, diastolic 61 mm[Hg] BP rivera blood pressure, systolic 122 mm[Hg] BP sys height E&M 62 [in_us] Bdy height pulse rate E&M 83 /min Heart rate temperature E&M 99.0 [degF] Body temperature weight E&M 202 [lb_av] Weight Measured Encounters Code Encounter Date Provider Facility CPT-97348 Level 3 Est. Patient 22:53:06 HULL DRAFTER Marta Viramontes [facility]-96187 Level 3 Est. Patient 16:07:34 CDT Marta Viramontes [facility] CPT-94057 Level 3 Est. Patient 15:39:01 [facility] Est[facility] Patient 17:31:07 CD[facility] Patient 05:11:40 CDT Rikki GRANADOS [facility]-93460 Level 2 Est. Patient 14:30:43 HULL DRAFTER Marta Tenluisblas Formerly named [facility] CPT-48362 Level 4 Est. Patient 09:14:36 HULL DRAFTER Rikki GRANADOS [facility] CPT-70138 Level 2 Est. Patient 09:07:32 CDT Marta Yoluisblas Formerly named [facility] CPT-00064 Level 4 Est. Patient 11:55:00 CDT Rikki GRANADOS [facility] CPT-17638 Level 3 Est. Patient 13:25:16 CDT Jennifer Chun MD PhD [facility] CPT-40208 Level 3 Est. Patient 17:31:22 CDT Solomon Alamo MD [facility] CPT-11145 Level 3 Est. Patient 08:02:14 CDT Solomon Alamo MD [facility]-28708 Level 3 Est. Patient 17:23:53 CDT Rikki Stearns [facility] CPT-31981 Level 3 Est. Patient 11:22:41 CDT Darryn Owusu Dhiraj [facility] Procedures Code Procedure Name Date Entry Date Standard Description CPT-17808 TSH - LAB USE ONLY 12:16:46 CDT CPT-71791 Lipid - LAB USE ONLY 12:16:46 CDT CPT-83323 CMP - LAB USE ONLY 12:16:46 CDT CPT-77104 CBC - LAB USE ONLY 12:16:46 CDT CPT-93031 Venipuncture Draw Fee 12:16:46 CDT CPT-03250 Venipuncture Draw Fee 16:09:39 CDT CPT-62749 Venipuncture Draw Fee 12:43:48 HULL DRAFTER CPT-56026 BMP - LAB USE ONLY 10:32:33 HULL DRAFTER CPT-97635 Venipuncture Draw Fee 10:32:33 HULL DRAFTER CPT-79316 Magnesium - LAB USE ONLY 09:54:30 CDT CPT-79018 TSH - LAB USE ONLY 09:54:30 CDT CPT-76043 Lipid - LAB USE ONLY 09:54:30 CDT CPT-58130 Venipuncture Draw Fee 09:54:29 CDT CPT-88058 Venipuncture Draw Fee 18:27:04 CDT CPT-33944 Chest 2V Frontal and Lat 10:57:00 HULL DRAFTER CPT-61424 Venipuncture Draw Fee 10:56:59 HULL DRAFTER CPT-17967 Venipuncture Draw Fee 09:22:28 HULL DRAFTER CPT-45962 Chest 2V Frontal and Lat 09:22:27 HULL DRAFTER CPT-I/D I/D Abscess 09:43:13 CDT CPT-65126 Venipuncture Draw Fee 08:16:46 HULL DRAFTER CPT-70705 Venipuncture Draw Fee 08:18:55 HULL DRAFTER CPT-03999 Venipuncture Draw Fee 08:31:18 HULL DRAFTER CPT-03985 Venipuncture Draw Fee 11:42:52 HULL DRAFTER CPT-23198 Venipuncture Draw Fee 13:26:37 HULL DRAFTER CPT-35779 Venipuncture Draw Fee 09:23:38 HULL DRAFTER CPT-000 Give Appropriate Tetanus Booster 10:23:50 CDT CPT-44121 Bone Density 08:28:45 CDT CPT-24116 Bone Density 11:35:15 CDT CPT-PV Prev. Care Visit 12:19:00 CDT CPT-39614 Venipuncture Draw Fee 15:02:58 CDT
--- OUTSIDE RECORDS SUMMARY | 2018-01-19 06:44 | XMS REPORT | Clinical Summary ---
Author Author Admin, QUITA Organization [facility] [employer] Address Unknown Phone Unavailable Allergies, Adverse Reactions, Alerts Allergy Name Reaction Description Start Date Severity Status Provider SULFA facial swelling Critical Active Jocelyne Naff TICK INSPECTOR Conditions or Problems Problem Name Problem Code Onset Date Status Entry Date Provider Comment Standard Description Annotate G E R D 530.81 Active Jocelyne Naff TICK INSPECTOR Esophageal reflux FH COLON CANCER V16.0 Active Jocelyne Naff TICK INSPECTOR Family history of malignant neoplasm of [...] (natural) Breast cancer 174.9 Resolved Marta Viramontes E LEARNING DEVELOPER Malignant neoplasm of breast (female), unspecified Vitamin [...] Adenocarcinoma, right breast 174.9 Active Alfreda Anthony POLLUTION CONTROL CHEMIST Malignant neoplasm of breast (female), unspecified Female [...] Ingrown toenail, left 703.0 Resolved Marta Yokum E LEARNING DEVELOPER Ingrowing nail cellulitis, finger, right 681.00 Resolved Marta Yokum E LEARNING DEVELOPER Cellulitis and abscess of finger, unspecified Cough 786.2 Resolved Marta Yokum E LEARNING DEVELOPER Cough Bronchitis, acute 466.0 Active Marta Yokum E LEARNING DEVELOPER Acute bronchitis Breast microcalcification ICD-793.81 Inactive Jennifer Chun MD PhD Abnormal Mammogram ICD-793.80 Inactive Jennifer Chun MD PhD Breast cancer ICD-174.9 Inactive Marta Viramontes E LEARNING DEVELOPER Soft tissue infection ICD-528.9 Inactive Rikki Stearns PA Abscess, skin ICD-682.9 Inactive Rikki Harms PA Cellulitis, 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 Rikki Harms PA Rash ICD-782.1 Inactive Rikki Harms PA Upper respiratory infection, acute ICD-465.9 Inactive Rikki Harms PA Chemotherapy ICD-V58.11 Inactive Rikki Stearns PA Cough, chronic ICD-786.2 Inactive Rikki Stearns PA Ingrown toenail, left ICD-703.0 Inactive Marta Viramontes E LEARNING DEVELOPER cellulitis, finger, right ICD-681.00 Inactive Marta Maganaum E LEARNING DEVELOPER Cough ICD-786.2 Inactive Marta Maganaum E LEARNING DEVELOPER Medication List Medication Instructions Start Date Stop Date Generic Name NDC Status Provider Patient Instruction DULOXETINE HCL 60 MG ORAL CAPSULE DELAYED RELEASE PARTICLES 1 pill daily, for depression DULOXETINE HCL 14507438717 Active Marta Viramontes APRN Active VITAMIN E 400 UNIT ORAL CAPSULE 2 twice a day VITAMIN E 65883190237 Active Marta Viramontes APRN Active NIACIN ER 500 MG ORAL TABLET EXTENDED RELEASE Take one daily NIACIN 27598742817 Active Marta Viramontes E LEARNING DEVELOPER Active BIOTIN 1000 MCG ORAL TABLET Take one daily BIOTIN 37546305562 No Longer Active Marta Viramontes APRN Active B COMPLEX 50 ORAL TABLET EXTENDED RELEASE Take one by mouth daily B COMPLEX VITAMINS 25429285484 Active Marta Yokum E LEARNING DEVELOPER Active TUSSIONEX PENNKINETIC ER 10-8 MG/5ML ORAL SUSPENSION EXTENDED RELEASE 5ml po q12hr PRN Cough HYDROCOD POLST-CHLORPHEN POLST 99842079746 No Longer Active Marta Yokum E LEARNING DEVELOPER Active PROAIR HFA 108 (90 BASE) MCG/ACT INHALATION AEROSOL SOLUTION 2 puffs four times a day as needed ALBUTEROL SULFATE 86029075970 No Longer Active Marta Yokum E LEARNING DEVELOPER Active DOXYCYCLINE HYCLATE 100 MG ORAL CAPSULE 1 cap by mouth twice daily DOXYCYCLINE HYCLATE 26420937599 No Longer Active Marta Yokum E LEARNING DEVELOPER Active PROAIR HFA 108 (90 BASE) MCG/ACT INHALATION AEROSOL SOLUTION 2 puffs four times a day as needed ALBUTEROL SULFATE 30458061277 Active Marta Yokum E LEARNING DEVELOPER Active AUGMENTIN 875-125 MG ORAL TABLET Take one tablet twice a day with food 04/25 AMOXICILLIN-POT CLAVULANATE 36394565936 No Longer Active Marta Yokum E LEARNING DEVELOPER Active TESSALON PERLES 100 MG ORAL CAPSULE 1 to 2 tablets by mouth 3 times daily as needed for cough BENZONATATE 31785074865 No Longer Active Marta Yokum E LEARNING DEVELOPER Active AUGMENTIN 875-125 MG ORAL TABLET 1 po BID x 10 days AMOXICILLIN-POT CLAVULANATE 51817075141 No Longer Active Marta Yokum E LEARNING DEVELOPER Active MEDROL 4 MG ORAL TABLET THERAPY PACK 6 tabs on day 1, 5 tabs on day 2, 4 tabs on day 3, 3 tabs on day 4, 2 tabs on day 5, 1 tab on day 6 METHYLPREDNISOLONE 84210252374 No Longer Active Marta Yokum E LEARNING DEVELOPER Active KEFLEX 500 MG ORAL CAPSULE 1 po qid CEPHALEXIN 59007807576 No Longer Active Marta Yokum E LEARNING DEVELOPER Active TUSSIONEX PENNKINETIC ER 10-8 MG/5ML ORAL SUSPENSION EXTENDED RELEASE 5ml po q12hr PRN Cough HYDROCOD POLST-CHLORPHEN POLST 85038112299 No Longer Active Marta Viramontes APRN Active VITAMIN D3 00979 UNIT ORAL CAPSULE 1 qWeek x 4 months for vitamin D deficiency CHOLECALCIFEROL 77962382877 Active Marta Viramontes APRN Active CEPHALEXIN 500 MG ORAL CAPSULE Take one four times a day CEPHALEXIN 75856707171 No Longer Active Marta Viramontes APRN Active VITAMIN C 500 MG ORAL CAPSULE Take one daily ASCORBIC ACID 52321166199 Active Rikki Harms PA Active BENZONATATE 200 MG ORAL CAPSULE One capsule tid. BENZONATATE 95440374347 No Longer Active Rikki Harms PA Active FLONASE ALLERGY RELIEF 50 MCG/ACT NASAL SUSPENSION spray twice in each nostril one time daily FLUTICASONE PROPIONATE 83134392613 No Longer Active Rikki Harms PA Active TUSSIONEX PENNKINETIC ER 10-8 MG/5ML ORAL SUSPENSION EXTENDED RELEASE 5ml po q12hr PRN Cough HYDROCOD POLST-CHLORPHEN POLST 05288092569 No Longer Active Rikki Harms PA Active ALBUTEROL SULFATE (2.5 MG/3ML) 0.083% INHALATION NEBULIZATION SOLUTION one vial per nebulizer every 4-6 hours as needed ALBUTEROL SULFATE 46212963869 No Longer Active Rikki Harms PA Active MEDROL 4 MG ORAL TABLET THERAPY PACK 6 tabs on day 1, 5 tabs on day 2, 4 tabs on day 3, 3 tabs on day 4, 2 tabs on day 5, 1 tab on day 6 METHYLPREDNISOLONE 44258436974 No Longer Active Rikki Harms PA Active LEVAQUIN 750 MG ORAL TABLET 1 po qd x 7 days LEVOFLOXACIN 47932467263 No Longer Active Rikki Harms PA Active LEVAQUIN 500 MG ORAL TABLET Take one tablet daily LEVOFLOXACIN 55323289428 No Longer Active Rikki Harms PA Active LEVAQUIN 500 MG ORAL TABLET 1 tablet by mouth daily LEVOFLOXACIN 30541009336 No Longer Active Marta Viramontes E LEARNING DEVELOPER Active CHERATUSSIN AC 100-10 MG/5ML ORAL SYRUP 1 tsp by mouth every 4 hours as needed for cough GUAIFENESIN-CODEINE 41902805683 No Longer Active Rikki Harms PA Active MUPIROCIN 2 % EXTERNAL OINTMENT Use in each nostril in am and pm MUPIROCIN 15901675814 No Longer Active Rikki Harms PA Active DOXYCYCLINE HYCLATE 100 MG ORAL CAPSULE Take one bid DOXYCYCLINE HYCLATE 65609314438 No Longer Active Rikki Harms PA Active CLARITIN 10 MG ORAL TABLET 1prn LORATADINE 20281312561 No Longer Active Jocelyne Naff TICK INSPECTOR Active ASPIRIN 81 MG ORAL TABLET 1qd ASPIRIN 12498658044 No Longer Active Jocelyne Naff TICK INSPECTOR Active DOXYCYCLINE HYCLATE 100 MG ORAL CAPSULE 1 cap by mouth twice daily DOXYCYCLINE HYCLATE 72195381580 No Longer Active Rikki Harms PA Active VITAMIN D3 09451 UNIT ORAL CAPSULE 1 pill by mouth weekly, for vitamin D deficiency CHOLECALCIFEROL 09887710452 No Longer Active Jennifer Chun MD PhD Active ANASTROZOLE 1 MG ORAL TABLET Take one by mouth daily ANASTROZOLE 16056996117 Active Jennifer Chun MD PhD Active ZITHROMAX 250 MG ORAL TABLET 2 po today, then 1 po q days 2-5 AZITHROMYCIN 03262762435 No Longer Active Rikki Harms PA Active MECLIZINE HCL 25 MG ORAL TABLET 1 prn MECLIZINE HCL 84119189202 No Longer Active Solomon Alamo MD Active CHERATUSSIN AC SYRUP prn as directed GUAIFENESIN- CODEINE SYRP 63616792751 No Longer Active Rikki Harms PA Active MULTIVITAMINS TABS 1qd MULTIPLE VITAMIN 99135838383 No Longer Active Rikki Harms PA Active OMEPRAZOLE 20 MG ORAL CAPSULE DELAYED RELEASE 1 PO Q D OMEPRAZOLE 69926835441 Active Odette AMY Amezquita Active ZITHROMAX Z-CAROLYN 250 MG ORAL TABLET 2x1day,[id number] AZITHROMYCIN 09889229989 No Longer Active Jocelyne Lovell TICK INSPECTOR Active MULTIVITAMINS TABS 1qd MULTIVITAMINS TABS MULTIPLE VITAMIN Inactive CHERATUSSIN AC SYRUP prn as directed CHERATUSSIN AC SYRUP GUAIFENESIN-CODEINE SYRP Inactive MECLIZINE HCL 25 MG ORAL TABLET 1 prn MECLIZINE HCL 25 MG ORAL TABLET 195045 MECLIZINE HCL Inactive ASPIRIN 81 MG ORAL TABLET 1qd ASPIRIN 81 MG ORAL TABLET ASPIRIN Inactive CLARITIN 10 MG ORAL TABLET 1prn CLARITIN 10 MG ORAL TABLET 939203 LORATADINE Inactive DOXYCYCLINE HYCLATE 100 MG ORAL CAPSULE Take one bid DOXYCYCLINE HYCLATE 100 MG ORAL CAPSULE 4246695 DOXYCYCLINE HYCLATE Inactive MUPIROCIN 2 % EXTERNAL OINTMENT Use in each nostril in am and pm MUPIROCIN 2 % EXTERNAL OINTMENT 339177 MUPIROCIN Inactive CHERATUSSIN AC 100-10 MG/5ML ORAL SYRUP 1 tsp by mouth every 4 hours as needed for cough CHERATUSSIN AC 100-10 MG/5ML ORAL SYRUP 937834 GUAIFENESIN-CODEINE Inactive LEVAQUIN 500 MG ORAL TABLET 1 tablet by mouth daily LEVAQUIN 500 MG ORAL TABLET 715735 LEVOFLOXACIN Inactive LEVAQUIN 500 MG ORAL TABLET Take one tablet daily LEVAQUIN 500 MG ORAL TABLET 648360 LEVOFLOXACIN Inactive LEVAQUIN 750 MG ORAL TABLET 1 po qd x 7 days LEVAQUIN 750 MG ORAL TABLET 130614 LEVOFLOXACIN Inactive ALBUTEROL SULFATE (2.5 MG/3ML) 0.083% INHALATION NEBULIZATION SOLUTION one vial per nebulizer every 4-6 hours as needed ALBUTEROL SULFATE (2.5 MG/3ML) 0.083% INHALATION NEBULIZATION SOLUTION 492069 ALBUTEROL SULFATE Inactive TUSSIONEX PENNKINETIC ER 10-8 MG/5ML ORAL SUSPENSION EXTENDED RELEASE 5ml po q12hr PRN Cough TUSSIONEX PENNKINETIC ER 10-8 MG/5ML ORAL SUSPENSION EXTENDED RELEASE HYDROCOD POLST-CHLORPHEN POLST Inactive FLONASE ALLERGY RELIEF 50 MCG/ACT NASAL SUSPENSION spray twice in each nostril one time daily FLONASE ALLERGY RELIEF 50 MCG/ ACT NASAL SUSPENSION 9502446 FLUTICASONE PROPIONATE Inactive BENZONATATE 200 MG ORAL CAPSULE One capsule tid. BENZONATATE 200 MG ORAL CAPSULE 420706 BENZONATATE Inactive CEPHALEXIN 500 MG ORAL CAPSULE Take one four times a day CEPHALEXIN 500 MG ORAL CAPSULE 277946 CEPHALEXIN Inactive TUSSIONEX PENNKINETIC ER 10-8 MG/5ML ORAL SUSPENSION EXTENDED RELEASE 5ml po q12hr PRN Cough TUSSIONEX PENNKINETIC ER 10-8 MG/5ML ORAL SUSPENSION EXTENDED RELEASE HYDROCOD POLST-CHLORPHEN POLST Inactive TESSALON PERLES 100 MG ORAL CAPSULE 1 to 2 tablets by mouth 3 times daily as needed for cough TESSALON PERLES 100 MG ORAL CAPSULE 884389 BENZONATATE Inactive PROAIR HFA 108 (90 BASE) [...] one daily BIOTIN 1000 MCG ORAL TABLET 465408 BIOTIN Inactive ZITHROMAX Z-CAROLYN 250 MG ORAL TABLET 2x1day,[id number] ZITHROMAX Z-CAROLYN 250 MG ORAL TABLET 435400 AZITHROMYCIN Inactive ZITHROMAX 250 MG ORAL TABLET 2 po today, then 1 po q days 2-5 ZITHROMAX 250 MG ORAL TABLET 748255 AZITHROMYCIN Inactive VITAMIN D3 26976 UNIT ORAL CAPSULE 1 pill by mouth weekly, for vitamin D deficiency VITAMIN D3 43033 UNIT ORAL CAPSULE CHOLECALCIFEROL Inactive DOXYCYCLINE HYCLATE 100 MG ORAL CAPSULE 1 cap by mouth twice daily DOXYCYCLINE HYCLATE 100 MG ORAL CAPSULE 5037582 DOXYCYCLINE HYCLATE Inactive MEDROL 4 MG ORAL TABLET THERAPY PACK 6 tabs on day 1, 5 tabs on day 2, 4 tabs on day 3, 3 tabs on day 4, 2 tabs on day 5, 1 tab on day 6 MEDROL 4 MG ORAL TABLET THERAPY PACK 296493 METHYLPREDNISOLONE Inactive KEFLEX 500 MG ORAL CAPSULE 1 po qid KEFLEX 500 MG ORAL CAPSULE 186095 CEPHALEXIN Inactive MEDROL 4 MG ORAL TABLET THERAPY PACK 6 tabs on day 1, 5 tabs on day 2, 4 tabs on day 3, 3 tabs on day 4, 2 tabs on day 5, 1 tab on day 6 MEDROL 4 MG ORAL TABLET THERAPY PACK 035217 METHYLPREDNISOLONE Inactive AUGMENTIN 875-125 MG ORAL TABLET 1 po BID x 10 days AUGMENTIN 875-125 MG ORAL TABLET 160688 AMOXICILLIN-POT CLAVULANATE Inactive AUGMENTIN 875-125 MG ORAL TABLET Take one tablet twice a day with food 04/25 AUGMENTIN 875-125 MG ORAL TABLET 914228 AMOXICILLIN-POT CLAVULANATE Inactive DOXYCYCLINE HYCLATE 100 MG ORAL CAPSULE 1 cap by mouth twice daily DOXYCYCLINE HYCLATE 100 MG ORAL CAPSULE 4667712 DOXYCYCLINE HYCLATE Inactive Vital Signs Date Name Value Unit Range Description blood pressure, diastolic 61 mm[Hg] BP rivera blood pressure, systolic 122 mm[Hg] BP sys height E&M 62 [in_us] Bdy height pulse rate E&M 83 /min Heart rate temperature E&M 99.0 [degF] Body temperature weight E&M 202 [lb_av] Weight Measured Encounters Code Encounter Date Provider Facility CPT-54594 Level 3 Est. Patient 22:53:06 INFORMATION SPECIALIST Marta Viramontes [facility]-10092 Level 3 Est. Patient 16:07:34 CDT Marta Viramontes [facility] CPT-53200 Level 3 Est. Patient 15:39:01 [facility] [place] Level 4 Est. Patient 17:31:07 CD[facility] Est. Patient 05:11:40 CDT Rikki GRANADOS [facility]-29396 Level 2 Est. Patient 14:30:43 INFORMATION SPECIALIST Marta Tenluisblas [facility] CPT-56761 Level 4 Est. Patient 09:14:36 INFORMATION SPECIALIST Rikki GRANADOS [facility] CPT-78559 Level 2 Est. Patient 09:07:32 CDT Marta Yoluisblas [facility] CPT-96623 Level 4 Est. Patient 11:55:00 CDT Rikki GRANADOS [facility] CPT-60716 Level 3 Est. Patient 13:25:16 CDT Jennifer Chun MD PhD [facility] CPT-54333 Level 3 Est. Patient 17:31:22 CDT Solomon Alamo MD [facility] CPT-74260 Level 3 Est. Patient 08:02:14 CDT Solomon Alamo MD [facility]-20573 Level 3 Est. Patient 17:23:53 CDT Rikki Stearns [facility] CPT-74056 Level 3 Est. Patient 11:22:41 CDT Darryn Owusu Dhiraj [facility] Procedures Code Procedure Name Date Entry Date Standard Description CPT-06572 TSH - LAB USE ONLY 12:16:46 CDT CPT-82234 Lipid - LAB USE ONLY 12:16:46 CDT CPT-84578 CMP - LAB USE ONLY 12:16:46 CDT CPT-42946 CBC - LAB USE ONLY 12:16:46 CDT CPT-31489 Venipuncture Draw Fee 12:16:46 CDT CPT-64284 Venipuncture Draw Fee 16:09:39 CDT CPT-32414 Venipuncture Draw Fee 12:43:48 INFORMATION SPECIALIST CPT-75085 BMP - LAB USE ONLY 10:32:33 INFORMATION SPECIALIST CPT-70020 Venipuncture Draw Fee 10:32:33 INFORMATION SPECIALIST CPT-97631 Magnesium - LAB USE ONLY 09:54:30 CDT CPT-08191 TSH - LAB USE ONLY 09:54:30 CDT CPT-22485 Lipid - LAB USE ONLY 09:54:30 CDT CPT-01733 Venipuncture Draw Fee 09:54:29 CDT CPT-22585 Venipuncture Draw Fee 18:27:04 CDT CPT-35300 Chest 2V Frontal and Lat 10:57:00 INFORMATION SPECIALIST CPT-14093 Venipuncture Draw Fee 10:56:59 INFORMATION SPECIALIST CPT-64537 Venipuncture Draw Fee 09:22:28 INFORMATION SPECIALIST CPT-56010 Chest 2V Frontal and Lat 09:22:27 INFORMATION SPECIALIST CPT-I/D I/D Abscess 09:43:13 CDT CPT-55642 Venipuncture Draw Fee 08:16:46 INFORMATION SPECIALIST CPT-35623 Venipuncture Draw Fee 08:18:55 INFORMATION SPECIALIST CPT-60472 Venipuncture Draw Fee 08:31:18 INFORMATION SPECIALIST CPT-66226 Venipuncture Draw Fee 11:42:52 INFORMATION SPECIALIST CPT-07693 Venipuncture Draw Fee 13:26:37 INFORMATION SPECIALIST CPT-07088 Venipuncture Draw Fee 09:23:38 INFORMATION SPECIALIST CPT-000 Give Appropriate Tetanus Booster 10:23:50 CDT CPT-77396 Bone Density 08:28:45 CDT CPT-21480 Bone Density 11:35:15 CDT CPT-PV Prev. Care Visit 12:19:00 CDT CPT-23786 Venipuncture Draw Fee 15:02:58 CDT
--- OUTSIDE RECORDS SUMMARY | 2018-01-19 06:45 | XMS REPORT | Clinical Summary ---
Author Author Admin, QUITA Organization [facility] [employer] Address Unknown Phone Unavailable Allergies, Adverse Reactions, Alerts Allergy Name Reaction Description Start Date Severity Status Provider SULFA facial swelling Critical Active Jocelyne Naff WINDER TENDER Conditions or Problems Problem Name Problem Code Onset Date Status Entry Date Provider Comment Standard Description Annotate G E R D 530.81 Active Jocelyne Naff WINDER TENDER Esophageal reflux FH COLON CANCER V16.0 Active Jocelyne Naff WINDER TENDER Family history of malignant neoplasm of gastrointestinal [...] (natural) Breast cancer 174.9 Resolved Marta Viramontes TOOL LATHE OPERATOR Malignant neoplasm of breast (female), unspecified Vitamin [...] Adenocarcinoma, right breast 174.9 Active Alfreda Anthony RMA Malignant neoplasm of breast (female), unspecified Female [...] Ingrown toenail, left 703.0 Resolved Marta Yokum TOOL LATHE OPERATOR Ingrowing nail cellulitis, finger, right 681.00 Resolved Marta Yokum TOOL LATHE OPERATOR Cellulitis and abscess of finger, unspecified Cough 786.2 Resolved Marta Yokum TOOL LATHE OPERATOR Cough Bronchitis, acute 466.0 Active Marta Yokum TOOL LATHE OPERATOR Acute bronchitis Breast microcalcification ICD-793.81 Inactive Jennifer Chun MD PhD Abnormal Mammogram ICD-793.80 Inactive Jennifer Chun MD PhD Breast cancer ICD-174.9 Inactive Marta Yokum TOOL LATHE OPERATOR Soft tissue infection ICD-528.9 Inactive Rikki Harms PA Abscess, skin ICD-682.9 Inactive Rikki Harms PA Cellulitis, 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 Rikki Harms PA Rash ICD-782.1 Inactive Rikki Harms PA Upper respiratory infection, acute ICD-465.9 Inactive Rikki Harms PA Chemotherapy ICD-V58.11 Inactive Rikki Harms PA Cough, chronic ICD-786.2 Inactive Rikki Harms PA Ingrown toenail, left ICD-703.0 Inactive Marta Yokum TOOL LATHE OPERATOR cellulitis, finger, right ICD-681.00 Inactive Marta Yokum TOOL LATHE OPERATOR Cough ICD-786.2 Inactive Marta Yokum TOOL LATHE OPERATOR Medication List Medication Instructions Start Date Stop Date Generic Name NDC Status Provider Patient Instruction PROAIR HFA 108 (90 BASE) MCG/ACT INHALATION AEROSOL SOLUTION 2 puffs four times a day as needed ALBUTEROL SULFATE 87513265805 No Longer Active Marta Yokum TOOL LATHE OPERATOR Active DOXYCYCLINE HYCLATE 100 MG ORAL CAPSULE 1 cap by mouth twice daily DOXYCYCLINE HYCLATE 52688353454 No Longer Active Marta Yokum TOOL LATHE OPERATOR Active PROAIR HFA 108 (90 BASE) MCG/ACT INHALATION AEROSOL SOLUTION 2 puffs four times a day as needed ALBUTEROL SULFATE 05433953102 Active Marta Yokum TOOL LATHE OPERATOR Active AUGMENTIN 875-125 MG ORAL TABLET Take one tablet twice a day with food 04/25 AMOXICILLIN-POT CLAVULANATE 11120356266 No Longer Active Marta Yokum TOOL LATHE OPERATOR Active TESSALON PERLES 100 MG ORAL CAPSULE 1 to 2 tablets by mouth 3 times daily as needed for cough BENZONATATE 93753760022 No Longer Active Marta Yokum TOOL LATHE OPERATOR Active AUGMENTIN 875-125 MG ORAL TABLET 1 po BID x 10 days AMOXICILLIN-POT CLAVULANATE 53069319831 No Longer Active Marta Yokum TOOL LATHE OPERATOR Active MEDROL 4 MG ORAL TABLET THERAPY PACK 6 tabs on day 1, 5 tabs on day 2, 4 tabs on day 3, 3 tabs on day 4, 2 tabs on day 5, 1 tab on day 6 METHYLPREDNISOLONE 45582218273 No Longer Active Marta Yokum TOOL LATHE OPERATOR Active TUSSIONEX PENNKINETIC ER 10-8 MG/5ML ORAL SUSPENSION EXTENDED RELEASE 5ml po q12hr PRN Cough HYDROCOD POLST-CHLORPHEN POLST 48973860998 Active Marta Yokum TOOL LATHE OPERATOR Active KEFLEX 500 MG ORAL CAPSULE 1 po qid CEPHALEXIN 97157867356 No Longer Active Marta Yokum TOOL LATHE OPERATOR Active B COMPLEX 50 ORAL TABLET EXTENDED RELEASE B COMPLEX VITAMINS 66717094438 Active Marta Yokum TOOL LATHE OPERATOR Active TUSSIONEX PENNKINETIC ER 10-8 MG/5ML ORAL SUSPENSION EXTENDED RELEASE 5ml po q12hr PRN Cough HYDROCOD POLST-CHLORPHEN POLST 21921217068 No Longer Active Marta Yokum TOOL LATHE OPERATOR Active VITAMIN D3 57081 UNIT ORAL CAPSULE 1 qWeek x 4 months for vitamin D deficiency CHOLECALCIFEROL 84999839730 Active Marta Yokum TOOL LATHE OPERATOR Active CEPHALEXIN 500 MG ORAL CAPSULE Take one four times a day CEPHALEXIN 47483615341 No Longer Active Marta Yokum TOOL LATHE OPERATOR Active BIOTIN 1000 MCG ORAL TABLET Take one daily BIOTIN 50737133615 Active Rikki Harms PA Active VITAMIN C 500 MG ORAL CAPSULE Take one daily ASCORBIC ACID 15453676166 Active Rikki Harms PA Active BENZONATATE 200 MG ORAL CAPSULE One capsule tid. BENZONATATE 93481882183 No Longer Active Rikki Harms PA Active FLONASE ALLERGY RELIEF 50 MCG/ACT NASAL SUSPENSION spray twice in each nostril one time daily FLUTICASONE PROPIONATE 64981520701 No Longer Active Rikki Harms PA Active TUSSIONEX PENNKINETIC ER 10-8 MG/5ML ORAL SUSPENSION EXTENDED RELEASE 5ml po q12hr PRN Cough HYDROCOD POLST-CHLORPHEN POLST 31499885447 No Longer Active Rikki Harms PA Active NIACIN ER 500 MG ORAL TABLET EXTENDED RELEASE Take one twice daily NIACIN 59592729022 Active Rikki Harms PA Active ALBUTEROL SULFATE (2.5 MG/3ML) 0.083% INHALATION NEBULIZATION SOLUTION one vial per nebulizer every 4-6 hours as needed ALBUTEROL SULFATE 77631811865 No Longer Active Rikki Harms PA Active MEDROL 4 MG ORAL TABLET THERAPY PACK 6 tabs on day 1, 5 tabs on day 2, 4 tabs on day 3, 3 tabs on day 4, 2 tabs on day 5, 1 tab on day 6 METHYLPREDNISOLONE 17639747653 No Longer Active Rikki Harms PA Active LEVAQUIN 750 MG ORAL TABLET 1 po qd x 7 days LEVOFLOXACIN 23784227552 No Longer Active Rikki Harms PA Active LEVAQUIN 500 MG ORAL TABLET Take one tablet daily LEVOFLOXACIN 32573446169 No Longer Active Rikki Harms PA Active LEVAQUIN 500 MG ORAL TABLET 1 tablet by mouth daily LEVOFLOXACIN 61025776159 No Longer Active Marta Viramontes APRN Active CHERATUSSIN AC 100-10 MG/5ML ORAL SYRUP 1 tsp by mouth every 4 hours as needed for cough GUAIFENESIN-CODEINE 09311152846 No Longer Active Rikki Harms PA Active MUPIROCIN 2 % EXTERNAL OINTMENT Use in each nostril in am and pm MUPIROCIN 74968411666 No Longer Active Rikki Harms PA Active DOXYCYCLINE HYCLATE 100 MG ORAL CAPSULE Take one bid DOXYCYCLINE HYCLATE 44937145029 No Longer Active Rikki Harms PA Active CLARITIN 10 MG ORAL TABLET 1prn LORATADINE 42339836586 No Longer Active Jocelyne Naff WINDER TENDER Active ASPIRIN 81 MG ORAL TABLET 1qd ASPIRIN 47991092346 No Longer Active Jocelyne Naff WINDER TENDER Active DOXYCYCLINE HYCLATE 100 MG ORAL CAPSULE 1 cap by mouth twice daily DOXYCYCLINE HYCLATE 52592294616 No Longer Active Rikki Harms PA Active VITAMIN D3 82893 UNIT ORAL CAPSULE 1 pill by mouth weekly, for vitamin D deficiency CHOLECALCIFEROL 85607907632 No Longer Active Jennifer Chun MD PhD Active ANASTROZOLE 1 MG ORAL TABLET Take one by mouth daily ANASTROZOLE 72174540154 Active Jennifer Chun MD PhD Active ZITHROMAX 250 MG ORAL TABLET 2 po today, then 1 po q days 2-5 AZITHROMYCIN 54317303775 No Longer Active Rikki Harms PA Active MECLIZINE HCL 25 MG ORAL TABLET 1 prn MECLIZINE HCL 12956572798 No Longer Active Solomon Alamo MD Active CHERATUSSIN AC SYRUP prn as directed GUAIFENESIN- CODEINE SYRP 53921931738 No Longer Active Rikki Harms PA Active MULTIVITAMINS TABS 1qd MULTIPLE VITAMIN 33445021258 No Longer Active Rikki Harms PA Active OMEPRAZOLE 20 MG ORAL CAPSULE DELAYED RELEASE 1 PO Q D OMEPRAZOLE 45342996310 Active AMY Snow Active ZITHROMAX Z-CAROLYN 250 MG ORAL TABLET 2x1day,0e0oqza AZITHROMYCIN 47072661226 No Longer Active Jocelyne Naff WINDER TENDER Active MULTIVITAMINS TABS 1qd MULTIVITAMINS TABS MULTIPLE VITAMIN Inactive CHERATUSSIN AC SYRUP prn as directed CHERATUSSIN AC SYRUP GUAIFENESIN-CODEINE SYRP Inactive MECLIZINE HCL 25 MG ORAL TABLET 1 prn MECLIZINE HCL 25 MG ORAL TABLET 444906 MECLIZINE HCL Inactive ASPIRIN 81 MG ORAL TABLET 1qd ASPIRIN 81 MG ORAL TABLET 100660 ASPIRIN Inactive CLARITIN 10 MG ORAL TABLET 1prn CLARITIN 10 MG ORAL TABLET 939731 LORATADINE Inactive DOXYCYCLINE HYCLATE 100 MG ORAL CAPSULE Take one bid DOXYCYCLINE HYCLATE 100 MG ORAL CAPSULE 3253746 DOXYCYCLINE HYCLATE Inactive MUPIROCIN 2 % EXTERNAL OINTMENT Use in each nostril in am and pm MUPIROCIN 2 % EXTERNAL OINTMENT 920167 MUPIROCIN Inactive CHERATUSSIN AC 100-10 MG/5ML ORAL SYRUP 1 tsp by mouth every 4 hours as needed for cough CHERATUSSIN AC 100-10 MG/5ML ORAL SYRUP 766922 GUAIFENESIN-CODEINE Inactive LEVAQUIN 500 MG ORAL TABLET 1 tablet by mouth daily LEVAQUIN 500 MG ORAL TABLET 444342 LEVOFLOXACIN Inactive LEVAQUIN 500 MG ORAL TABLET Take one tablet daily LEVAQUIN 500 MG ORAL TABLET 145319 LEVOFLOXACIN Inactive LEVAQUIN 750 MG ORAL TABLET 1 po qd x 7 days LEVAQUIN 750 MG ORAL TABLET 284477 LEVOFLOXACIN Inactive ALBUTEROL SULFATE (2.5 MG/3ML) 0.083% INHALATION NEBULIZATION SOLUTION one vial per nebulizer every 4-6 hours as needed ALBUTEROL SULFATE (2.5 MG/3ML) 0.083% INHALATION NEBULIZATION SOLUTION 500365 ALBUTEROL SULFATE Inactive TUSSIONEX PENNKINETIC ER 10-8 MG/5ML ORAL SUSPENSION EXTENDED RELEASE 5ml po q12hr PRN Cough TUSSIONEX PENNKINETIC ER 10-8 MG/5ML ORAL SUSPENSION EXTENDED RELEASE HYDROCOD POLST-CHLORPHEN POLST Inactive FLONASE ALLERGY RELIEF 50 MCG/ACT NASAL SUSPENSION spray twice in each nostril one time daily FLONASE ALLERGY RELIEF 50 MCG/ ACT NASAL SUSPENSION 6957822 FLUTICASONE PROPIONATE Inactive BENZONATATE 200 MG ORAL CAPSULE One capsule tid. BENZONATATE 200 MG ORAL CAPSULE 474098 BENZONATATE Inactive CEPHALEXIN 500 MG ORAL CAPSULE Take one four times a day CEPHALEXIN 500 MG ORAL CAPSULE 613237 CEPHALEXIN Inactive TUSSIONEX PENNKINETIC ER 10-8 MG/5ML ORAL SUSPENSION EXTENDED RELEASE 5ml po q12hr PRN Cough TUSSIONEX PENNKINETIC ER 10-8 MG/5ML ORAL SUSPENSION EXTENDED RELEASE HYDROCOD POLST-CHLORPHEN POLST Inactive TESSALON PERLES 100 MG ORAL CAPSULE 1 to 2 tablets by mouth 3 times daily as needed for cough TESSALON PERLES 100 MG ORAL CAPSULE 884728 BENZONATATE Inactive PROAIR HFA 108 (90 BASE) MCG/ACT INHALATION AEROSOL SOLUTION 2 puffs four times a day as needed PROAIR HFA 108 (90 BASE) MCG/ACT INHALATION AEROSOL SOLUTION ALBUTEROL SULFATE Inactive ZITHROMAX Z-CAROLYN 250 MG ORAL TABLET 2x1day,[id number] ZITHROMAX Z-CAROLYN 250 MG ORAL TABLET 006081 AZITHROMYCIN Inactive ZITHROMAX 250 MG ORAL TABLET 2 po today, then 1 po q days 2-5 ZITHROMAX 250 MG ORAL TABLET 313246 AZITHROMYCIN Inactive VITAMIN D3 36672 UNIT ORAL CAPSULE 1 pill by mouth weekly, for vitamin D deficiency VITAMIN D3 12520 UNIT ORAL CAPSULE CHOLECALCIFEROL Inactive DOXYCYCLINE HYCLATE 100 MG ORAL CAPSULE 1 cap by mouth twice daily DOXYCYCLINE HYCLATE 100 MG ORAL CAPSULE 3315795 DOXYCYCLINE HYCLATE Inactive MEDROL 4 MG ORAL TABLET THERAPY PACK 6 tabs on day 1, 5 tabs on day 2, 4 tabs on day 3, 3 tabs on day 4, 2 tabs on day 5, 1 tab on day 6 MEDROL 4 MG ORAL TABLET THERAPY PACK 081683 METHYLPREDNISOLONE Inactive KEFLEX 500 MG ORAL CAPSULE 1 po qid KEFLEX 500 MG ORAL CAPSULE 984645 CEPHALEXIN Inactive MEDROL 4 MG ORAL TABLET THERAPY PACK 6 tabs on day 1, 5 tabs on day 2, 4 tabs on day 3, 3 tabs on day 4, 2 tabs on day 5, 1 tab on day 6 MEDROL 4 MG ORAL TABLET THERAPY PACK 475081 METHYLPREDNISOLONE Inactive AUGMENTIN 875-125 MG ORAL TABLET 1 po BID x 10 days AUGMENTIN 875-125 MG ORAL TABLET 811723 AMOXICILLIN-POT CLAVULANATE Inactive AUGMENTIN 875-125 MG ORAL TABLET Take one tablet twice a day with food 04/25 AUGMENTIN 875-125 MG ORAL TABLET 081866 AMOXICILLIN-POT CLAVULANATE Inactive DOXYCYCLINE HYCLATE 100 MG ORAL CAPSULE 1 cap by mouth twice daily DOXYCYCLINE HYCLATE 100 MG ORAL CAPSULE 1035497 DOXYCYCLINE HYCLATE Inactive Vital Signs Date Name Value Unit Range Description blood pressure, diastolic 61 mm[Hg] BP rivera blood pressure, systolic 122 mm[Hg] BP sys height E&M 62 [in_us] Bdy height pulse rate E&M 83 /min Heart rate temperature E&M 99.0 [degF] Body temperature weight E&M 202 [lb_av] Weight Measured blood pressure, diastolic 58 mm[Hg] BP rivera blood pressure, systolic 147 mm[Hg] BP sys height E&M 62 [in_us] Bdy height pulse rate E&M 85 /min Heart rate temperature E&M 99.5 [degF] Body temperature weight E&M 205.5 [lb_av] Weight Measured blood pressure, diastolic 60 mm[Hg] BP rivera blood pressure, systolic 140 mm[Hg] BP sys pulse rate E&M 77 /min Heart rate temperature E&M 98.3 [degF] Body temperature weight E&M 203.5 [lb_av] Weight Measured Encounters Code Encounter Date Provider Facility CPT-49560 Level 3 Est. Patient 22:53:06 COMPOSITION MOLDER Marta Viramontes [facility]-94451 Level 3 Est. Patient 16:07:34 CDT Marta Ana M [facility] CPT-12526 Level 3 Est. Patient 15:39:01 [facility] Patient 17:31:07 CDT [facility] Level 3 Est. Patient 05:11:40 CDT Rikki GRANADOS [facility]-39125 Level 2 Est. Patient 14:30:43 COMPOSITION MOLDER Martacarlos Viramontes [facility] CPT-33466 Level 4 Est. Patient 09:14:36 COMPOSITION MOLDER Rikki GRANADOS [facility] CPT-38404 Level 2 Est. Patient 09:07:32 CDT Marta Caalluisblas [facility] CPT-12715 Level 4 Est. Patient 11:55:00 CDT Rikki GRANADOS [facility] CPT-01974 Level 3 Est. Patient 13:25:16 CDT Jennifer Chun MD PhD [facility] CPT-96409 Level 3 Est. Patient 17:31:22 CDT Solomon Alamo MD [facility] CPT-72007 Level 3 Est. Patient 08:02:14 CDT Solomon Alamo MD [facility]-93180 Level 3 Est. Patient 17:23:53 CDT Rikki Stearns [facility] CPT-67582 Level 3 Est. Patient 11:22:41 CDT Darryn Hearn [facility] Procedures Code Procedure Name Date Entry Date Standard Description CPT-41685 Venipuncture Draw Fee 16:09:39 CDT CPT-37935 Venipuncture Draw Fee 12:43:48 COMPOSITION MOLDER CPT-34899 BMP - LAB USE ONLY 10:32:33 COMPOSITION MOLDER CPT-99813 Venipuncture Draw Fee 10:32:33 COMPOSITION MOLDER CPT-93059 Magnesium - LAB USE ONLY 09:54:30 CDT CPT-07212 TSH - LAB USE ONLY 09:54:30 CDT CPT-73452 Lipid - LAB USE ONLY 09:54:30 CDT CPT-76776 Venipuncture Draw Fee 09:54:29 CDT CPT-29313 Venipuncture Draw Fee 18:27:04 CDT CPT-66817 Chest 2V Frontal and Lat 10:57:00 COMPOSITION MOLDER CPT-61520 Venipuncture Draw Fee 10:56:59 COMPOSITION MOLDER CPT-64706 Venipuncture Draw Fee 09:22:28 COMPOSITION MOLDER CPT-53340 Chest 2V Frontal and Lat 09:22:27 COMPOSITION MOLDER CPT-I/D I/D Abscess 09:43:13 CDT CPT-19093 Venipuncture Draw Fee 08:16:46 COMPOSITION MOLDER CPT-13695 Venipuncture Draw Fee 08:18:55 COMPOSITION MOLDER CPT-51551 Venipuncture Draw Fee 08:31:18 COMPOSITION MOLDER CPT-79064 Venipuncture Draw Fee 11:42:52 COMPOSITION MOLDER CPT-60937 Venipuncture Draw Fee 13:26:37 COMPOSITION MOLDER CPT-56474 Venipuncture Draw Fee 09:23:38 COMPOSITION MOLDER CPT-000 Give Appropriate Tetanus Booster 10:23:50 CDT CPT-38814 Bone Density 08:28:45 CDT CPT-58568 Bone Density 11:35:15 CDT CPT-PV Prev. Care Visit 12:19:00 CDT CPT-08705 Venipuncture Draw Fee 15:02:58 CDT
--- OUTSIDE RECORDS SUMMARY | 2018-01-19 06:46 | XMS REPORT | Clinical Summary ---
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 Family history of malignant neoplasm of gastrointestinal [...] gynecological examination Postmenopausal status V49.81 Active Chante SUTHERLANDA Asymptomatic postmenopausal status (age-related) (natural) Breast cancer 174.9 Active Kailee Rachel RMA Malignant neoplasm of breast (female), unspecified Vitamin [...] antineoplastic chemotherapy Cough, chronic 786.2 Resolved Rikki Stearns PA Cough Ingrown toenail, left 703.0 Resolved Marta Viramontes APRN Ingrowing nail Breast microcalcification ICD-793.81 Inactive Jennifer Chun MD PhD Abnormal Mammogram ICD-793.80 Inactive Jennifer Chun MD PhD Soft tissue infection ICD-528.9 Inactive Rikki Harms PA Abscess, skin ICD-682.9 Inactive Rikki Harms PA Cellulitis, 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 Rikki Harms PA Rash ICD-782.1 Inactive Rikki GRANADOS Upper respiratory infection, acute ICD-465.9 Inactive Rikki GRANADOS Chemotherapy ICD-V58.11 Inactive Rikki GRANADOS Cough, chronic ICD-786.2 Inactive Rikki GRANADOS Ingrown toenail, left ICD-703.0 Inactive Marta Viramontes APRN Medication List Medication Instructions Start Date Stop Date Generic Name NDC Status Provider Patient Instruction VITAMIN D3 93155 UNIT CAPS 1 qWeek x 4 months for vitamin D deficiency 04/09 CHOLECALCIFEROL 28258742765 Active Marta Viramontes APRN Active CEPHALEXIN 500 MG ORAL CAPS Take one four times a day CEPHALEXIN 56163612809 No Longer Active Marta Viramontes APRN Active BIOTIN 1000 MCG ORAL TABS Take one daily BIOTIN 42757456618 Active Rikki GRANADOS Active VITAMIN C 500 MG ORAL CAPS Take one daily ASCORBIC ACID 05737736683 Active Rikki Daryn PA Active BENZONATATE 200 MG ORAL CAPS One capsule tid. BENZONATATE 35496695809 No Longer Active Rikki Harms PA Active FLONASE ALLERGY RELIEF 50 MCG/ACT NASAL SUSP spray twice in each nostril one time daily FLUTICASONE PROPIONATE 97881390986 No Longer Active Rikki Harms PA Active TUSSIONEX PENNKINETIC ER 10-8 MG/5ML LQCR 5ml po q12hr PRN Cough HYDROCOD POLST-CHLORPHEN POLST 91938618088 No Longer Active Rikki Harms PA Active NIACIN ER 500 MG ORAL CR-TABS Take one twice daily NIACIN 36092413850 Active Rikki Daryn PA Active ALBUTEROL SULFATE 0.083 % NEBU SOLN one vial per nebulizer every 4-6 hours as needed ALBUTEROL SULFATE 61945168556 No Longer Active Rikki Harms PA Active MEDROL (CAROLYN) 4 MG TABS 6 tabs on day 1, 5 tabs on day 2, 4 tabs on day 3, 3 tabs on day 4, 2 tabs on day 5, 1 tab on day 6 METHYLPREDNISOLONE 34486612341 No Longer Active Rikki Harms PA Active LEVAQUIN 750 MG TABS 1 po qd x 7 days LEVOFLOXACIN 69950319393 No Longer Active Rikki Harms PA Active LEVAQUIN 500 MG ORAL TABS Take one tablet daily LEVOFLOXACIN 17573496675 No Longer Active Rikki Harms PA Active PROAIR HFA 108 (90 BASE) MCG/ACT AERS 2 puffs four times a day as needed 2014 ALBUTEROL SULFATE 44485769969 Active Marta Yokum [employer]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 LEVAQUIN 500 MG TAB 1 tablet by mouth daily LEVOFLOXACIN 81753146998 No Longer Active Marta Yokum [employer]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 CHERATUSSIN AC 100-10 MG/5ML SYRP 1 tsp by mouth every 4 hours as needed for cough GUAIFENESIN-CODEINE 19684547708 No Longer Active Rikki Harms PA Active MUPIROCIN 2 % EXT OINT Use in each nostril in am and pm MUPIROCIN 73786156971 No Longer Active Rikki Harms PA Active DOXYCYCLINE HYCLATE 100 MG ORAL CAPS Take one bid DOXYCYCLINE HYCLATE 63227753898 No Longer Active Rikki Harms PA Active CLARITIN 10 MG TABS 1prn LORATADINE 50404332272 No Longer Active 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 ASPIRIN 81 MG TABS 1qd ASPIRIN 77945663415 No Longer Active 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 DOXYCYCLINE HYCLATE 100 MG CAP 1 cap by mouth twice daily DOXYCYCLINE HYCLATE 37968221188 No Longer Active Rikki Harms PA Active VITAMIN D3 19716 UNIT CAPS 1 pill by mouth weekly, for vitamin D deficiency CHOLECALCIFEROL 49906655549 No Longer Active Jennifer Chun MD PhD Active ANASTROZOLE 1 MG ORAL TABS Take one by mouth daily ANASTROZOLE 10923163236 Active Jennifer Chun MD PhD Active ZITHROMAX 250 MG TAB 2 po today, then 1 po q days 2-5 AZITHROMYCIN 19956725511 No Longer Active Rikki Harms PA Active MECLIZINE HCL 25 MG TABS 1 prn MECLIZINE HCL 67669273262 No Longer Active Solomon Alamo MD Active CHERATUSSIN AC SYRP prn as directed GUAIFENESIN- CODEINE SYRP 05426556674 No Longer Active Rikki Harms PA Active MULTIVITAMINS TABS 1qd MULTIPLE VITAMIN 15024428036 No Longer Active Rikki Harms PA Active OMEPRAZOLE 20 MG CPDR 1 PO Q D OMEPRAZOLE 53117229828 Active Rikki Harms PA Active ZITHROMAX Z-CAROLYN 250 MG TABS 2x1day,4w2kgyl AZITHROMYCIN 50330286765 No Longer Active 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 MULTIVITAMINS TABS 1qd MULTIVITAMINS TABS MULTIPLE VITAMIN Inactive CHERATUSSIN AC SYRP prn as directed CHERATUSSIN AC SYRP GUAIFENESIN-CODEINE SYRP Inactive MECLIZINE HCL 25 MG TABS 1 prn MECLIZINE HCL 25 MG TABS 884008 MECLIZINE HCL Inactive ASPIRIN 81 MG TABS 1qd ASPIRIN 81 MG TABS ASPIRIN Inactive CLARITIN 10 MG TABS 1prn CLARITIN 10 MG TABS 976339 LORATADINE Inactive DOXYCYCLINE HYCLATE 100 MG ORAL CAPS Take one bid DOXYCYCLINE HYCLATE 100 MG ORAL CAPS 3914467 DOXYCYCLINE HYCLATE Inactive MUPIROCIN 2 % EXT OINT Use in each nostril in am and pm MUPIROCIN 2 % EXT OINT 982666 MUPIROCIN Inactive CHERATUSSIN AC 100-10 MG/5ML SYRP 1 tsp by mouth every 4 hours as needed for cough CHERATUSSIN AC 100-10 MG/5ML SYRP 082055 GUAIFENESIN-CODEINE Inactive LEVAQUIN 500 MG TAB 1 tablet by mouth daily LEVAQUIN 500 MG TAB 789964 LEVOFLOXACIN Inactive LEVAQUIN 500 MG ORAL TABS Take one tablet daily LEVAQUIN 500 MG ORAL TABS 175631 LEVOFLOXACIN Inactive LEVAQUIN 750 MG TABS 1 po qd x 7 days LEVAQUIN 750 MG TABS 306058 LEVOFLOXACIN Inactive ALBUTEROL SULFATE 0.083 % NEBU SOLN one vial per nebulizer every 4-6 hours as needed ALBUTEROL SULFATE 0.083 % NEBU SOLN 878309 ALBUTEROL SULFATE Inactive TUSSIONEX PENNKINETIC ER 10-8 MG/5ML LQCR 5ml po q12hr PRN Cough TUSSIONEX PENNKINETIC ER 10-8 MG/5ML LQCR HYDROCOD POLST- CHLORPHEN POLST Inactive FLONASE ALLERGY RELIEF 50 MCG/ACT NASAL SUSP spray twice in each nostril one time daily FLONASE ALLERGY RELIEF 50 MCG/ACT NASAL SUSP 1869895 FLUTICASONE PROPIONATE Inactive BENZONATATE 200 MG ORAL CAPS One capsule tid. BENZONATATE 200 MG ORAL CAPS 108994 BENZONATATE Inactive CEPHALEXIN 500 MG ORAL CAPS Take one four times a day CEPHALEXIN 500 MG ORAL CAPS 702907 CEPHALEXIN Inactive ZITHROMAX Z-CAROLYN 250 MG TABS 2x1day,0v6qodm ZITHROMAX Z-CAROLYN 250 MG TABS 3889457 AZITHROMYCIN Inactive ZITHROMAX 250 MG TAB 2 po today, then 1 po q days 2-5 ZITHROMAX 250 MG TAB 2989990 AZITHROMYCIN Inactive VITAMIN D3 72760 UNIT CAPS 1 pill by mouth weekly, for vitamin D deficiency VITAMIN D3 61012 UNIT CAPS CHOLECALCIFEROL Inactive DOXYCYCLINE HYCLATE 100 MG CAP 1 cap by mouth twice daily DOXYCYCLINE HYCLATE 100 MG CAP 9610118 DOXYCYCLINE HYCLATE Inactive MEDROL (CAROLYN) 4 MG TABS 6 tabs on day 1, 5 tabs on day 2, 4 tabs on day 3, 3 tabs on day 4, 2 tabs on day 5, 1 tab on day 6 MEDROL ( CAROLYN) 4 MG TABS 602826 METHYLPREDNISOLONE Inactive Vital Signs Date Name Value Unit Range Description blood pressure, diastolic - 8462-4 55 mm[Hg] BP rivera blood pressure, systolic - 8480-6 121 mm[Hg] BP sys pulse rate E&M - 8867-4 76 /min Heart rate temperature E&M 98.6 [degF] Body temperature weight E&M - 3141-9 202.5 [lb_av] Weight Measured blood pressure, diastolic - 8462-4 80 mm[Hg] BP rivera blood pressure, systolic - 8480-6 144 mm[Hg] BP sys pulse rate E&M - 8867-4 88 /min Heart rate temperature E&M 98.1 [degF] Body temperature weight E&M - 3141-9 199.5 [lb_av] Weight Measured blood pressure, diastolic - 8462-4 68 mm[Hg] BP rivera blood pressure, systolic - 8480-6 118 mm[Hg] BP sys height E&M - 8302-2 62 [in_us] Bdy height pulse rate E&M - 8867-4 76 /min Heart rate temperature E&M 99.4 [degF] Body temperature weight E&M - 3141-9 196 [lb_av] Weight Measured blood pressure, diastolic - 8462-4 70 mm[Hg] BP rivera blood pressure, systolic - 8480-6 118 mm[Hg] BP sys pulse rate E&M - 8867-4 80 /min Heart rate temperature E&M 98.6 [degF] Body temperature weight E&M - 3141-9 195 [lb_av] Weight Measured blood pressure, diastolic - 8462-4 70 mm[Hg] BP rivera blood pressure, systolic - 8480-6 120 mm[Hg] BP sys pulse rate E&M - 8867-4 80 /min Heart rate temperature E&M 99 [degF] Body temperature weight E&M - 3141-9 193 [lb_av] Weight Measured Diagnostic Results Date Name Value Unit Range Description Lab Report: Basic Metabolic Panel - Chemistry sodium, serum 142 mmol/L 734-765 6506/07/25 potassium, serum 4.0 mmol/L 3.5-5.2 chloride, serum 107 mmol/L 98-107 carbon dioxide, venous blood 31.6 mmol/L 21.0-32.0 blood glucose 108 mg/dL 65-110 calcium, serum 9.2 mg/dL 8.5-10.1 urea nitrogen, blood 20 mg/dL 7-18 creatinine, serum 0.92 mg/dL 0.55-1.30 sodium, serum 141 mmol/L 934-263 1501/11/11 potassium, serum 4.2 mmol/L 3.5-5.2 chloride, serum 106 mmol/L 98-107 carbon dioxide, venous blood 29.1 mmol/L 21.0-32.0 blood glucose 95 mg/dL 65-110 calcium, serum 8.6 mg/dL 8.5-10.1 urea nitrogen, blood 23 mg/dL 7-18 creatinine, serum 0.83 mg/dL 0.55-1.30 Lab Report: CBC W/DIFF - Hematology leukocyte count, blood 5.1 10^3/MM^3 10*3/mm3 4.6-10.2 neutrophils as percent of blood leukocytes 54.8 % 42.2-75.2 monocytes as percent of blood leukocytes 5.4 % 1.7-9.3 lymphocytes as percent of blood leukocytes 32.8 % 20.5-51.1 erythrocyte (RBC) count 3.76 10^6/MM^3 10*6/mm3 4.04-5.48 hemoglobin, blood 12.4 g/dL 12.0-16.0 hematocrit, blood 36.4 % 36.0-46.0 mean corpuscular volume, RBC 97 fL 80-97 mean corpuscular hemoglobin, RBC 32.9 pg 27.0-31.2 mean corpuscular hemoglobin concentration, RBC 33.9 G/DL % 31.8- 35.4 red blood cell distribution width 12.5 % 11.6-14.8 platelet count 269 10^3/MM^3 10*3/mm3 564-719 2581/11/25 leukocyte count, blood 2.1 10^3/MM^3 10*3/mm3 4.6-10.2 neutrophils as percent of blood leukocytes 20.0 % 42.2-75.2 monocytes as percent of blood leukocytes 20.9 % 1.7-9.3 lymphocytes as percent of blood leukocytes 42.9 % 20.5-51.1 erythrocyte (RBC) count 4.11 10^6/MM^3 10*6/mm3 4.04-5.48 hemoglobin, blood 12.6 g/dL 12.0-16.0 hematocrit, blood 37.1 % 36.0-46.0 mean corpuscular volume, RBC 90 fL 80-97 mean corpuscular hemoglobin, RBC 30.8 pg 27.0-31.2 mean corpuscular hemoglobin concentration, RBC 34.1 G/DL % 31.8- 35.4 red blood cell distribution width 14.6 % 11.6-14.8 platelet count 139 10^3/MM^3 10*3/mm3 994-420 6895/12/02 leukocyte count, blood 6.7 10^3/MM^3 10*3/mm3 4.6-10.2 neutrophils as percent of blood leukocytes 52.8 % 42.2-75.2 monocytes as percent of blood leukocytes 11.8 % 1.7-9.3 lymphocytes as percent of blood leukocytes 31.0 % 20.5-51.1 erythrocyte (RBC) count 3.84 10^6/MM^3 10*6/mm3 4.04-5.48 hemoglobin, blood 11.7 g/dL 12.0-16.0 hematocrit, blood 35.1 % 36.0-46.0 mean corpuscular volume, RBC 92 fL 80-97 mean corpuscular hemoglobin, RBC 30.5 pg 27.0-31.2 mean corpuscular hemoglobin concentration, RBC 33.2 G/DL % 31.8- 35.4 red blood cell distribution width 15.4 % 11.6-14.8 platelet count 258 10^3/MM^3 10*3/mm3 753-116 7727/12/09 leukocyte count, blood 5.3 10^3/MM^3 10*3/mm3 4.6-10.2 neutrophils as percent of blood leukocytes 67.9 % 42.2-75.2 monocytes as percent of blood leukocytes 10.2 % 1.7-9.3 lymphocytes as percent of blood leukocytes 19.4 % 20.5-51.1 erythrocyte (RBC) count 3.79 10^6/MM^3 10*6/mm3 4.04-5.48 hemoglobin, blood 11.9 g/dL 12.0-16.0 hematocrit, blood 35.3 % 36.0-46.0 mean corpuscular volume, RBC 93 fL 80-97 mean corpuscular hemoglobin, RBC 31.3 pg 27.0-31.2 mean corpuscular hemoglobin concentration, RBC 33.7 G/DL % 31.8- 35.4 red blood cell distribution width 15.6 % 11.6-14.8 platelet count 240 10^3/MM^3 10*3/mm3 063-452 6090/12/16 leukocyte count, blood 3.2 10^3/MM^3 10*3/mm3 4.6-10.2 neutrophils as percent of blood leukocytes 34.6 % 42.2-75.2 monocytes as percent of blood leukocytes 33.5 % 1.7-9.3 lymphocytes as percent of blood leukocytes 25.6 % 20.5-51.1 erythrocyte (RBC) count 3.65 10^6/MM^3 10*6/mm3 4.04-5.48 hemoglobin, blood 11.4 g/dL 12.0-16.0 hematocrit, blood 33.8 % 36.0-46.0 mean corpuscular volume, RBC 93 fL 80-97 mean corpuscular hemoglobin, RBC 31.2 pg 27.0-31.2 mean corpuscular hemoglobin concentration, RBC 33.7 G/DL % 31.8- 35.4 red blood cell distribution width 15.3 % 11.6-14.8 platelet count 158 10^3/MM^3 10*3/mm3 271-284 4592/12/18 leukocyte count, blood 8.8 10^3/MM^3 10*3/mm3 4.6-10.2 neutrophils as percent of blood leukocytes 37.0 % 42.2-75.2 monocytes as percent of blood leukocytes 32.3 % 1.7-9.3 lymphocytes as percent of blood leukocytes 21.3 % 20.5-51.1 erythrocyte (RBC) count 3.76 10^6/MM^3 10*6/mm3 4.04-5.48 hemoglobin, blood 11.6 g/dL 12.0-16.0 hematocrit, blood 35.0 % 36.0-46.0 mean corpuscular volume, RBC 93 fL 80-97 mean corpuscular hemoglobin, RBC 30.9 pg 27.0-31.2 mean corpuscular hemoglobin concentration, RBC 33.3 G/DL % 31.8- 35.4 red blood cell distribution width 15.9 % 11.6-14.8 platelet count 207 10^3/MM^3 10*3/mm3 251-091 0587/12/23 leukocyte count, blood 6.2 10^3/MM^3 10*3/mm3 4.6-10.2 neutrophils as percent of blood leukocytes 61.4 % 42.2-75.2 monocytes as percent of blood leukocytes 12.0 % 1.7-9.3 lymphocytes as percent of blood leukocytes 22.8 % 20.5-51.1 erythrocyte (RBC) count 3.37 10^6/MM^3 10*6/mm3 4.04-5.48 hemoglobin, blood 10.7 g/dL 12.0-16.0 hematocrit, blood 31.3 % 36.0-46.0 mean corpuscular volume, RBC 93 fL 80-97 mean corpuscular hemoglobin, RBC 31.7 pg 27.0-31.2 mean corpuscular hemoglobin concentration, RBC 34.1 G/DL % 31.8- 35.4 red blood cell distribution width 16.0 % 11.6-14.8 platelet count 183 10^3/MM^3 10*3/mm3 171-400 8157/12/30 leukocyte count, blood 5.2 10^3/MM^3 10*3/mm3 4.6-10.2 neutrophils as percent of blood leukocytes 70.2 % 42.2-75.2 monocytes as percent of blood leukocytes 9.2 % 1.7-9.3 lymphocytes as percent of blood leukocytes 15.8 % 20.5-51.1 erythrocyte (RBC) count 3.57 10^6/MM^3 10*6/mm3 4.04-5.48 hemoglobin, blood 11.4 g/dL 12.0-16.0 hematocrit, blood 33.6 % 36.0-46.0 mean corpuscular volume, RBC 94 fL 80-97 mean corpuscular hemoglobin, RBC 31.8 pg 27.0-31.2 mean corpuscular hemoglobin concentration, RBC 33.8 G/DL % 31.8- 35.4 red blood cell distribution width 16.8 % 11.6-14.8 platelet count 200 10^3/MM^3 10*3/mm3 142-424 Lab Report: CBC W/DIFF, Comp. Metabolic Panel - Chemistry sodium, serum 142 mmol/L 952-689 3653/02/04 carbon dioxide, venous blood 24.9 mmol/L 21.0-32.0 potassium, serum 4.1 mmol/L 3.5-5.2 chloride, serum 106 mmol/L 98-107 blood glucose 103 mg/dL 65-110 urea nitrogen, blood 25 mg/dL 7-18 creatinine, serum 0.83 mg/dL 0.55-1.30 alanine aminotransferase (SGPT), serum 38 U/L 12-78 aspartate aminotransferase (SGOT), serum 26 U/L 15-37 calcium, serum 8.7 mg/dL 8.5-10.1 bilirubin, serum, total 0.30 mg/dL 0.00-1.00 sodium, serum 140 mmol/L 681-829 6120/01/06 carbon dioxide, venous blood 27.2 mmol/L 21.0-32.0 potassium, serum 4.1 mmol/L 3.5-5.2 chloride, serum 105 mmol/L 98-107 blood glucose 70 mg/dL 65-110 urea nitrogen, blood 25 mg/dL 7-18 creatinine, serum 0.90 mg/dL 0.55-1.30 alanine aminotransferase (SGPT), serum 28 U/L 12-78 aspartate aminotransferase (SGOT), serum 20 U/L 15-37 calcium, serum 8.9 mg/dL 8.5-10.1 bilirubin, serum, total 0.40 mg/dL 0.00-1.00 sodium, serum 140 mmol/L 076-498 9409/01/13 carbon dioxide, venous blood 26.4 mmol/L 21.0-32.0 potassium, serum 4.2 mmol/L 3.5-5.2 chloride, serum 104 mmol/L 98-107 blood glucose 101 mg/dL 65-110 urea nitrogen, blood 18 mg/dL 7-18 creatinine, serum 0.80 mg/dL 0.55-1.30 alanine aminotransferase (SGPT), serum 28 U/L -78 aspartate aminotransferase (SGOT), serum 24 U/L 15-37 calcium, serum 8.7 mg/dL 8.5-10.1 bilirubin, serum, total 0.50 mg/dL 0.00-1.00 Lab Report: CBC W/DIFF, Comp. Metabolic Panel - Hematology leukocyte count, blood 4.2 10^3/MM^3 10*3/mm3 4.6-10.2 neutrophils as percent of blood leukocytes 58.7 % 42.2-75.2 monocytes as percent of blood leukocytes 6.8 % 1.7-9.3 lymphocytes as percent of blood leukocytes 28.5 % 20.5-51.1 erythrocyte (RBC) count 3.86 10^6/MM^3 10*6/mm3 4.04-5.48 hemoglobin, blood 12.7 g/dL 12.0-16.0 hematocrit, blood 37.4 % 36.0-46.0 mean corpuscular volume, RBC 97 fL 80-97 mean corpuscular hemoglobin, RBC 32.8 pg 27.0-31.2 mean corpuscular hemoglobin concentration, RBC 33.9 G/DL % 31.8- 35.4 red blood cell distribution width 15.9 % 11.6-14.8 platelet count 271 10^3/MM^3 10*3/mm3 412-082 6073/01/13 leukocyte count, blood 5.2 10^3/MM^3 10*3/mm3 4.6-10.2 neutrophils as percent of blood leukocytes 61.2 % 42.2-75.2 monocytes as percent of blood leukocytes 7.1 % 1.7-9.3 lymphocytes as percent of blood leukocytes 22.9 % 20.5-51.1 erythrocyte (RBC) count 3.79 10^6/MM^3 10*6/mm3 4.04-5.48 hemoglobin, blood 12.3 g/dL 12.0-16.0 hematocrit, blood 36.2 % 36.0-46.0 mean corpuscular volume, RBC 96 fL 80-97 mean corpuscular hemoglobin, RBC 32.4 pg 27.0-31.2 mean corpuscular hemoglobin concentration, RBC 33.9 G/DL % 31.8- 35.4 red blood cell distribution width 20.5 % 11.6-14.8 platelet count 289 10^3/MM^3 10*3/mm3 085-100 1347/01/06 leukocyte count, blood 4.1 10^3/MM^3 10*3/mm3 4.6-10.2 neutrophils as percent of blood leukocytes 55.0 % 42.2-75.2 monocytes as percent of blood leukocytes 9.3 % 1.7-9.3 lymphocytes as percent of blood leukocytes 28.4 % 20.5-51.1 erythrocyte (RBC) count 3.59 10^6/MM^3 10*6/mm3 4.04-5.48 hemoglobin, blood 11.7 g/dL 12.0-16.0 hematocrit, blood 34.3 % 36.0-46.0 mean corpuscular volume, RBC 96 fL 80-97 mean corpuscular hemoglobin, RBC 32.6 pg 27.0-31.2 mean corpuscular hemoglobin concentration, RBC 34.1 G/DL % 31.8- 35.4 red blood cell distribution width 17.9 % 11.6-14.8 platelet count 297 10^3/MM^3 10*3/mm3 142-424 Lab Report: Comp. Metabolic Panel - Chemistry sodium, serum 139 mmol/L 645-361 0999/11/25 carbon dioxide, venous blood 27.9 mmol/L 21.0-32.0 potassium, serum 4.7 mmol/L 3.5-5.2 chloride, serum 105 mmol/L 98-107 blood glucose 94 mg/dL 65-110 urea nitrogen, blood 21 mg/dL 7-18 creatinine, serum 0.79 mg/dL 0.55-1.30 alanine aminotransferase (SGPT), serum 40 U/L 12-78 aspartate aminotransferase (SGOT), serum 22 U/L 15-37 calcium, serum 8.5 mg/dL 8.5-10.1 bilirubin, serum, total 0.80 mg/dL 0.00-1.00 sodium, serum 139 mmol/L 978-921 4957/12/30 carbon dioxide, venous blood 28.2 mmol/L 21.0-32.0 potassium, serum 3.9 mmol/L 3.5-5.2 chloride, serum 105 mmol/L 98-107 blood glucose 91 mg/dL 65-110 urea nitrogen, blood 17 mg/dL 7-18 creatinine, serum 0.81 mg/dL 0.55-1.30 alanine aminotransferase (SGPT), serum 29 U/L aspartate aminotransferase (SGOT), serum 22 U/L 15-37 calcium, serum 8.8 mg/dL 8.5-10.1 bilirubin, serum, total 0.50 mg/dL 0.00-1.00 sodium, serum 143 mmol/L 381-210 0150/12/23 carbon dioxide, venous blood 24.6 mmol/L 21.0-32.0 potassium, serum 4.1 mmol/L 3.5-5.2 chloride, serum 107 mmol/L 98-107 blood glucose 98 mg/dL 65-110 urea nitrogen, blood 22 mg/dL 7-18 creatinine, serum 0.77 mg/dL 0.55-1.30 alanine aminotransferase (SGPT), serum 28 U/L aspartate aminotransferase (SGOT), serum 20 U/L 15-37 calcium, serum 8.6 mg/dL 8.5-10.1 bilirubin, serum, total 0.30 mg/dL 0.00-1.00 sodium, serum 142 mmol/L 201-367 5833/12/09 carbon dioxide, venous blood 28.5 mmol/L 21.0-32.0 potassium, serum 5.0 mmol/L 3.5-5.2 chloride, serum 109 mmol/L 98-107 blood glucose 91 mg/dL 65-110 urea nitrogen, blood 27 mg/dL 7-18 creatinine, serum 0.88 mg/dL 0.55-1.30 alanine aminotransferase (SGPT), serum 31 U/L aspartate aminotransferase (SGOT), serum 18 U/L 15-37 calcium, serum 8.9 mg/dL 8.5-10.1 bilirubin, serum, total 0.40 mg/dL 0.00-1.00 sodium, serum 140 mmol/L 294-279 0018/12/16 carbon dioxide, venous blood 25.4 mmol/L 21.0-32.0 potassium, serum 4.1 mmol/L 3.5-5.2 chloride, serum 104 mmol/L 98-107 blood glucose 110 mg/dL 65-110 urea nitrogen, blood 24 mg/dL 7-18 creatinine, serum 0.87 mg/dL 0.55-1.30 alanine aminotransferase (SGPT), serum 35 U/L aspartate aminotransferase (SGOT), serum 21 U/L 15-37 calcium, serum 8.4 mg/dL 8.5-10.1 bilirubin, serum, total 0.50 mg/dL 0.00-1.00 sodium, serum 141 mmol/L 788-674 6698/12/02 carbon dioxide, venous blood 25.9 mmol/L 21.0-32.0 potassium, serum 4.7 mmol/L 3.5-5.2 chloride, serum 106 mmol/L 98-107 blood glucose 78 mg/dL 65-110 urea nitrogen, blood 24 mg/dL 7-18 creatinine, serum 0.75 mg/dL 0.55-1.30 alanine aminotransferase (SGPT), serum 31 U/L aspartate aminotransferase (SGOT), serum 20 U/L 15-37 calcium, serum 8.7 mg/dL 8.5-10.1 bilirubin, serum, total 0.30 mg/dL 0.00-1.00 Lab Report: Lipid Panel, Thyroid Stimulating Hormone (L) - Chemistry cholesterol, serum 177 mg/dL 196-293 2879/10/31 triglyceride, serum, fasting 64 mg/dL 30-200 HDL cholesterol, serum 77 mg/dL 32-96 LDL cholesterol, serum 87 mg/dL 0-130 TSH 2.13 m[iU]/mL 0.36-3.74 Lab Report: VITAMIN D, 25-HYDROXY/17524 - Chemistry vitamin D 25-hydroxy, serum 25 ng/mL 30-100 Encounters Code Encounter Date Provider Facility CPT-85083 Level 4 Est. Patient 17:31:07 CDT Marta Viramontes [facility] CPT-79789 Level 3 Est. Patient 05:11:40 CDT Rikki GRANADOS [facility] CPT-00140 Level 2 Est. Patient 14:30:43 QI SPECIALIST Marta Viramontes [facility] CPT-92337 Level 4 Est. Patient 09:14:36 QI SPECIALIST Rikki GRANADOS [facility] CPT-29515 Level 2 Est. Patient 09:07:32 CDT Marta Viramontes [facility] CPT-38156 Level 4 Est. Patient 11:55:00 CDT Rikki GRANADOS [facility] CPT-03786 Level 3 Est. Patient 13:25:16 CDT Jennifer Chun MD PhD [facility] CPT-50986 Level 3 Est. Patient 17:31:22 CDT Solomon Alamo MD [facility] CPT-94269 Level 3 Est. Patient 08:02:14 CDT Solomon Alamo MD [facility] CPT-41453 Level 3 Est. Patient 17:23:53 CDT Rikki Harms [facility] CPT-44218 Level 3 Est. Patient 11:22:41 CDT Darryn Hearn [facility] Procedures Code Procedure Name Date Entry Date Standard Description CPT-45963 BMP - LAB USE ONLY 10:32:33 QI SPECIALIST CPT-71850 Venipuncture Draw Fee 10:32:33 QI SPECIALIST CPT-28873 Magnesium - LAB USE ONLY 09:54:30 CDT CPT-61325 TSH - LAB USE ONLY 09:54:30 CDT CPT-04796 Lipid - LAB USE ONLY 09:54:30 CDT CPT-49280 Venipuncture Draw Fee 09:54:29 CDT CPT-26817 Venipuncture Draw Fee 18:27:04 CDT CPT-68986 Chest 2V Frontal and Lat 10:57:00 QI SPECIALIST CPT-09723 Venipuncture Draw Fee 10:56:59 QI SPECIALIST CPT-37525 Venipuncture Draw Fee 09:22:28 QI SPECIALIST CPT-64974 Chest 2V Frontal and Lat 09:22:27 QI SPECIALIST CPT-I/D I/D Abscess 09:43:13 CDT CPT-10097 Venipuncture Draw Fee 08:16:46 QI SPECIALIST CPT-87149 Venipuncture Draw Fee 08:18:55 QI SPECIALIST CPT-66948 Venipuncture Draw Fee 08:31:18 QI SPECIALIST CPT-84443 Venipuncture Draw Fee 11:42:52 QI SPECIALIST CPT-33152 Venipuncture Draw Fee 13:26:37 QI SPECIALIST CPT-08591 Venipuncture Draw Fee 09:23:38 QI SPECIALIST CPT-000 Give Appropriate Tetanus Booster 10:23:50 CDT CPT-02377 Bone Density 08:28:45 CDT CPT-41408 Bone Density 11:35:15 CDT CPT-PV Prev. Care Visit 12:19:00 CDT CPT-05915 Venipuncture Draw Fee 15:02:58 CDT
--- OUTSIDE RECORDS SUMMARY | 2018-01-19 06:46 | XMS REPORT | Clinical Summary ---
Author Author Admin, E Organization [facility] Address Unknown Phone Unavailable Allergies, Adverse Reactions, Alerts Allergy Name Reaction Description Start Date Severity Status Provider SULFA facial swelling Critical Active Jocelyne Naff [employer] Conditions or Problems Problem Name Problem Code Onset Date Status Entry Date Provider Comment Standard Description Annotate G E R D 530.81 Active Jocelyne Naff [employer]CH[employer]IC [employer]IATOR Esophageal reflux FH COLON CANCER V16.0 Active Jocelyne Naff [employer]BI[employer] MECH[employer]IC RADIATOR Family history of malignant neoplasm of gastrointestinal [...] gynecological examination Postmenopausal status V49.81 Active Chante Black RMA Asymptomatic postmenopausal status (age-related) (natural) Breast cancer 174.9 Active Kailee Rachel RMA Malignant neoplasm of breast (female), unspecified Vitamin D deficiency 268.9 Active Jennifer Chun MD PhD Unspecified vitamin D deficiency Soft tissue infection 528.9 Resolved Rikki Stearns PA Other and unspecified diseases of the [...] Upper respiratory infection, acute 465.9 Resolved Rikki Stearns PA Acute upper respiratory infections of unspecified site Chemotherapy V58.11 Resolved Rikki Stearns PA Encounter for antineoplastic chemotherapy Cough, chronic 786.2 Resolved Rikki Stearns PA Cough Ingrown toenail, left 703.0 Resolved Marta Yokum [employer] Ingrowing nail cellulitis, finger, right 681.00 Active Marta Yokum [employer] Cellulitis and abscess of finger, unspecified Cough 786.2 Active Marta Yokum [employer] Cough Breast microcalcification ICD-793.81 Inactive Jennifer Chun MD PhD Abnormal Mammogram ICD-793.80 Inactive Jennifer Chun MD PhD Soft tissue infection ICD-528.9 Inactive Rikki Stearns PA Abscess, skin ICD-682.9 Inactive Rikki Stearns DARWIN Cellulitis, 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 Rikki Stearns PA Rash ICD-782.1 Inactive Rikki Daryn GRANADOS Upper respiratory infection, acute ICD-465.9 Inactive Rikki Daryn GRANADOS Chemotherapy ICD-V58.11 Inactive Rikik Daryn GRANADOS Cough, chronic ICD-786.2 Inactive Rikki Daryn GRANADOS Ingrown toenail, left ICD-703.0 Inactive Martacarlos Maganaum [employer] Medication List Medication Instructions Start Date Stop Date Generic Name NDC Status Provider Patient Instruction AUGMENTIN 875-125 MG ORAL TABLET 1 po BID x 10 days AMOXICILLIN-POT CLAVULANATE 64332108241 No Longer Active Marta Yokum [employer] Active MEDROL 4 MG ORAL TABLET THERAPY PACK 6 tabs on day 1, 5 tabs on day 2, 4 tabs on day 3, 3 tabs on day 4, 2 tabs on day 5, 1 tab on day 6 METHYLPREDNISOLONE 12704495775 No Longer Active Marta Yokum [employer] Active TESSALON PERLES 100 MG ORAL CAPSULE 1 to 2 tablets by mouth 3 times daily as needed for cough BENZONATATE 82877575424 Active Marta Yokum [employer] Active TUSSIONEX PENNKINETIC ER 10-8 MG/5ML ORAL SUSPENSION EXTENDED RELEASE 5ml po q12hr PRN Cough HYDROCOD POLST-CHLORPHEN POLST 48502956895 Active Marta Yokum [employer] Active KEFLEX 500 MG ORAL CAPSULE 1 po qid CEPHALEXIN 94976718734 No Longer Active Marta Yokum [employer]PER[employer] Active B COMPLEX 50 ORAL TABLET EXTENDED RELEASE B COMPLEX VITAMINS 36885152699 Active Marta Viramontes APRN Active TUSSIONEX PENNKINETIC ER 10-8 MG/5ML ORAL SUSPENSION EXTENDED RELEASE 5ml po q12hr PRN Cough HYDROCOD POLST-CHLORPHEN POLST 21941488620 No Longer Active Marta Viramontes APRN Active VITAMIN D3 31995 UNIT ORAL CAPSULE 1 qWeek x 4 months for vitamin D deficiency CHOLECALCIFEROL 19004629720 Active Marta Viramontes [employer] Active CEPHALEXIN 500 MG ORAL CAPSULE Take one four times a day CEPHALEXIN 23099995717 No Longer Active Marta Viramontes APRN Active BIOTIN 1000 MCG ORAL TABLET Take one daily BIOTIN 22449952788 Active Rikki Harms PA Active VITAMIN C 500 MG ORAL CAPSULE Take one daily ASCORBIC ACID 93209787594 Active Rikki Harms PA Active BENZONATATE 200 MG ORAL CAPSULE One capsule tid. BENZONATATE 17213313009 No Longer Active Rikki Harms PA Active FLONASE ALLERGY RELIEF 50 MCG/ACT NASAL SUSPENSION spray twice in each nostril one time daily FLUTICASONE PROPIONATE 90721056279 No Longer Active Rikki Harms PA Active TUSSIONEX PENNKINETIC ER 10-8 MG/5ML ORAL SUSPENSION EXTENDED RELEASE 5ml po q12hr PRN Cough HYDROCOD POLST-CHLORPHEN POLST 88363787840 No Longer Active Rikki Harms PA Active NIACIN ER 500 MG ORAL TABLET EXTENDED RELEASE Take one twice daily NIACIN 13597724513 Active Rikki Harms PA Active ALBUTEROL SULFATE (2.5 MG/3ML) 0.083% INHALATION NEBULIZATION SOLUTION one vial per nebulizer every 4-6 hours as needed ALBUTEROL SULFATE 94286128405 No Longer Active Rikki Harms PA Active MEDROL 4 MG ORAL TABLET THERAPY PACK 6 tabs on day 1, 5 tabs on day 2, 4 tabs on day 3, 3 tabs on day 4, 2 tabs on day 5, 1 tab on day 6 METHYLPREDNISOLONE 06645991236 No Longer Active Rikki Harms PA Active LEVAQUIN 750 MG ORAL TABLET 1 po qd x 7 days LEVOFLOXACIN 86802890009 No Longer Active Rikki Harms PA Active LEVAQUIN 500 MG ORAL TABLET Take one tablet daily LEVOFLOXACIN 70335562836 No Longer Active Rikki Harms PA Active PROAIR HFA 108 (90 Base) MCG/ACT INHALATION AEROSOL SOLUTION 2 puffs four times a day as needed ALBUTEROL SULFATE 23728998241 Active Marta Yokum [employer] Active LEVAQUIN 500 MG ORAL TABLET 1 tablet by mouth daily LEVOFLOXACIN 09967403681 No Longer Active Marta Yokum [employer] Active CHERATUSSIN AC 100-10 MG/5ML ORAL SYRUP 1 tsp by mouth every 4 hours as needed for cough GUAIFENESIN-CODEINE 08318201646 No Longer Active Rikki Harms PA Active MUPIROCIN 2 % EXTERNAL OINTMENT Use in each nostril in am and pm MUPIROCIN 81922913031 No Longer Active Rikki Harms PA Active DOXYCYCLINE HYCLATE 100 MG ORAL CAPSULE Take one bid DOXYCYCLINE HYCLATE 73481276082 No Longer Active Rikki Harms PA Active CLARITIN 10 MG ORAL TABLET 1prn LORATADINE 71916806115 No Longer Active Jocelyne Naff [employer]OMOBILE MECHANIC RADIATOR Active ASPIRIN 81 MG ORAL TABLET 1qd ASPIRIN 97549402491 No Longer Active Jocelyne Naff AUTOMOBILE MECHANIC RADIATOR Active DOXYCYCLINE HYCLATE 100 MG ORAL CAPSULE 1 cap by mouth twice daily DOXYCYCLINE HYCLATE 63771127184 No Longer Active Rikki Harms PA Active VITAMIN D3 62388 UNIT ORAL CAPSULE 1 pill by mouth weekly, for vitamin D deficiency CHOLECALCIFEROL 24953224561 No Longer Active Jennifer Chun MD PhD Active ANASTROZOLE 1 MG ORAL TABLET Take one by mouth daily ANASTROZOLE 67004467440 Active Jennifer Chun MD PhD Active ZITHROMAX 250 MG ORAL TABLET 2 po today, then 1 po q days 2-5 AZITHROMYCIN 60318851077 No Longer Active Rikki Harms PA Active MECLIZINE HCL 25 MG ORAL TABLET 1 prn MECLIZINE HCL 58672179295 No Longer Active Solomon Alamo MD Active CHERATUSSIN AC SYRUP prn as directed GUAIFENESIN- CODEINE SYRP 63204658610 No Longer Active Rikki Harms PA Active MULTIVITAMINS TABS 1qd MULTIPLE VITAMIN 68804778889 No Longer Active Rikki Harms PA Active OMEPRAZOLE 20 MG ORAL CAPSULE DELAYED RELEASE 1 PO Q D OMEPRAZOLE 47890828984 Active Jocelyne Naff [employer]BI[employer] MECH[employer]IC RADIATOR Active ZITHROMAX Z-CAROLYN 250 MG ORAL TABLET 2x1day,8q2acpa AZITHROMYCIN 00799192739 No Longer Active Jocelyne Naff AUTOMOBILE MECHANIC RADIATOR Active MULTIVITAMINS TABS 1qd MULTIVITAMINS TABS MULTIPLE VITAMIN Inactive CHERATUSSIN AC SYRUP prn as directed CHERATUSSIN AC SYRUP GUAIFENESIN-CODEINE SYRP Inactive MECLIZINE HCL 25 MG ORAL TABLET 1 prn MECLIZINE HCL 25 MG ORAL TABLET 730028 MECLIZINE HCL Inactive ASPIRIN 81 MG ORAL TABLET 1qd ASPIRIN 81 MG ORAL TABLET 840391 ASPIRIN Inactive CLARITIN 10 MG ORAL TABLET 1prn CLARITIN 10 MG ORAL TABLET 912441 LORATADINE Inactive DOXYCYCLINE HYCLATE 100 MG ORAL CAPSULE Take one bid DOXYCYCLINE HYCLATE 100 MG ORAL CAPSULE 3775603 DOXYCYCLINE HYCLATE Inactive MUPIROCIN 2 % EXTERNAL OINTMENT Use in each nostril in am and pm MUPIROCIN 2 % EXTERNAL OINTMENT 274244 MUPIROCIN Inactive CHERATUSSIN AC 100-10 MG/5ML ORAL SYRUP 1 tsp by mouth every 4 hours as needed for cough CHERATUSSIN AC 100-10 MG/5ML ORAL SYRUP 066046 GUAIFENESIN-CODEINE Inactive LEVAQUIN 500 MG ORAL TABLET 1 tablet by mouth daily LEVAQUIN 500 MG ORAL TABLET 321312 LEVOFLOXACIN Inactive LEVAQUIN 500 MG ORAL TABLET Take one tablet daily LEVAQUIN 500 MG ORAL TABLET 624785 LEVOFLOXACIN Inactive LEVAQUIN 750 MG ORAL TABLET 1 po qd x 7 days LEVAQUIN 750 MG ORAL TABLET 359759 LEVOFLOXACIN Inactive ALBUTEROL SULFATE (2.5 MG/3ML) 0.083% INHALATION NEBULIZATION SOLUTION one vial per nebulizer every 4-6 hours as needed ALBUTEROL SULFATE (2.5 MG/3ML) 0.083% INHALATION NEBULIZATION SOLUTION 381853 ALBUTEROL SULFATE Inactive TUSSIONEX PENNKINETIC ER 10-8 MG/5ML ORAL SUSPENSION EXTENDED RELEASE 5ml po q12hr PRN Cough TUSSIONEX PENNKINETIC ER 10-8 MG/5ML ORAL SUSPENSION EXTENDED RELEASE HYDROCOD POLST-CHLORPHEN POLST Inactive FLONASE ALLERGY RELIEF 50 MCG/ACT NASAL SUSPENSION spray twice in each nostril one time daily FLONASE ALLERGY RELIEF 50 MCG/ ACT NASAL SUSPENSION 0956093 FLUTICASONE PROPIONATE Inactive BENZONATATE 200 MG ORAL CAPSULE One capsule tid. BENZONATATE 200 MG ORAL CAPSULE 900537 BENZONATATE Inactive CEPHALEXIN 500 MG ORAL CAPSULE Take one four times a day CEPHALEXIN 500 MG ORAL CAPSULE 547638 CEPHALEXIN Inactive TUSSIONEX PENNKINETIC ER 10-8 MG/5ML ORAL SUSPENSION EXTENDED RELEASE 5ml po q12hr PRN Cough TUSSIONEX PENNKINETIC ER 10-8 MG/5ML ORAL SUSPENSION EXTENDED RELEASE HYDROCOD POLST-CHLORPHEN POLST Inactive ZITHROMAX Z-CAROLYN 250 MG ORAL TABLET 2x1day,1a0knny ZITHROMAX Z-CAROLYN 250 MG ORAL TABLET 389545 AZITHROMYCIN Inactive ZITHROMAX 250 MG ORAL TABLET 2 po today, then 1 po q days 2-5 ZITHROMAX 250 MG ORAL TABLET 453818 AZITHROMYCIN Inactive VITAMIN D3 23885 UNIT ORAL CAPSULE 1 pill by mouth weekly, for vitamin D deficiency VITAMIN D3 67728 UNIT ORAL CAPSULE CHOLECALCIFEROL Inactive DOXYCYCLINE HYCLATE 100 MG ORAL CAPSULE 1 cap by mouth twice daily DOXYCYCLINE HYCLATE 100 MG ORAL CAPSULE 1801674 DOXYCYCLINE HYCLATE Inactive MEDROL 4 MG ORAL TABLET THERAPY PACK 6 tabs on day 1, 5 tabs on day 2, 4 tabs on day 3, 3 tabs on day 4, 2 tabs on day 5, 1 tab on day 6 MEDROL 4 MG ORAL TABLET THERAPY PACK 414393 METHYLPREDNISOLONE Inactive KEFLEX 500 MG ORAL CAPSULE 1 po qid KEFLEX 500 MG ORAL CAPSULE 353666 CEPHALEXIN Inactive MEDROL 4 MG ORAL TABLET THERAPY PACK 6 tabs on day 1, 5 tabs on day 2, 4 tabs on day 3, 3 tabs on day 4, 2 tabs on day 5, 1 tab on day 6 MEDROL 4 MG ORAL TABLET THERAPY PACK 452479 METHYLPREDNISOLONE Inactive AUGMENTIN 875-125 MG ORAL TABLET 1 po BID x 10 days AUGMENTIN 875-125 MG ORAL TABLET 113891 AMOXICILLIN-POT CLAVULANATE Inactive Vital Signs Date Name Value Unit Range Description blood pressure, diastolic 58 mm[Hg] BP rivera [...] Measured Encounters Code Encounter Date Provider Facility CPT-19661 Level 3 Est. Patient 16:07:34 CDT Marta Viramontes [facility] CPT-55928 Level 3 Est. Patient 15:39:01 CDT Marta Viramontes [facility] [place] CPT-28103 Level 4 Est. Patient 17:31:07 CDT Marta Viramontes [facility] CPT-02197 Level 3 Est. Patient 05:11:40 CDT Rikki GRANADOS [facility] CPT-46076 Level 2 Est. Patient 14:30:43 [employer] Marta Ana M [facility] CPT-67421 Level 4 Est. Patient 09:14:36 [employer] Rikki GRANADOS [facility] CPT-99202 Level 2 Est. Patient 09:07:32 CDT Marta Viramontes [facility] CPT-07504 Level 4 Est. Patient 11:55:00 CDT Rikki GRANADOS [facility] CPT-97871 Level 3 Est. Patient 13:25:16 CDT Jennifer Chun MD PhD [facility] CPT-18022 Level 3 Est. Patient 17:31:22 CDT Solomon Alamo MD [facility] CPT-12996 Level 3 Est. Patient 08:02:14 CDT Solomon Alamo MD [facility] CPT-87217 Level 3 Est. Patient 17:23:53 CDT Rikki GRANADOS [facility] CPT-06013 Level 3 Est. Patient 11:22:41 CDT Darryn Hearn [facility] Procedures Code Procedure Name Date Entry Date Standard Description CPT-12013 Venipuncture Draw Fee 16:09:39 CDT CPT-80680 Venipuncture Draw Fee 12:43:48 [employer] CPT-08262 BMP - LAB USE ONLY 10:32:33 [employer]CH[employer] CPT-47960 Venipuncture Draw Fee 10:32:33 [employer] CPT-67556 Magnesium - LAB USE ONLY 09:54:30 CDT CPT-07127 TSH - LAB USE ONLY 09:54:30 CDT CPT-45728 Lipid - LAB USE ONLY 09:54:30 CDT CPT-37378 Venipuncture Draw Fee 09:54:29 CDT CPT-46262 Venipuncture Draw Fee 18:27:04 CDT CPT-46052 Chest 2V Frontal and Lat 10:57:00 [employer] CPT-34998 Venipuncture Draw Fee 10:56:59 [employer]CH[employer] CPT-40308 Venipuncture Draw Fee 09:22:28 [employer]CH[employer] CPT-21892 Chest 2V Frontal and Lat 09:22:27 [employer] CPT-I/D I/D Abscess 09:43:13 CDT CPT-64521 Venipuncture Draw Fee 08:16:46 [employer] CPT-51989 Venipuncture Draw Fee 08:18:55 [employer] CPT-34601 Venipuncture Draw Fee 08:31:18 [employer] CPT-96399 Venipuncture Draw Fee 11:42:52 [employer] CPT-07514 Venipuncture Draw Fee 13:26:37 [employer]CH[employer] CPT-86843 Venipuncture Draw Fee 09:23:38 [employer] CPT-000 Give Appropriate Tetanus Booster 10:23:50 CDT CPT-49741 Bone Density 08:28:45 CDT CPT-25864 Bone Density 11:35:15 CDT CPT-PV Prev. Care Visit 12:19:00 CDT CPT-89054 Venipuncture Draw Fee 15:02:58 CDT
--- OUTSIDE RECORDS SUMMARY | 2018-01-19 06:47 | XMS REPORT | Clinical Summary ---
Author Author Admin, [facility] Organization [facility] Address Unknown Phone Unavailable Allergies, Adverse Reactions, Alerts Allergy Name Reaction Description Start Date Severity Status Provider SULFA facial swelling Critical Active Jocelyne Naff SENIOR QA ANALYST Conditions or Problems Problem Name Problem Code Onset Date Status Entry Date Provider Comment Standard Description Annotate G E R D 530.81 Active Jocelyne Naff SENIOR QA ANALYST Esophageal reflux FH COLON CANCER V16.0 Active Jocelyne Naff SENIOR QA ANALYST Family history of malignant neoplasm of gastrointestinal [...] Generic Name NDC Status Provider Patient Instruction CEPHALEXIN 500 MG ORAL CAPS Take one four times a day CEPHALEXIN 23307250722 No Longer Active Marta Viramontes APRN Active BIOTIN 1000 MCG ORAL TABS Take one daily BIOTIN 24886014694 Active Rikki Daryn PA Active VITAMIN C 500 MG ORAL CAPS Take one daily ASCORBIC ACID 39122689147 Active Rikki Daryn PA Active BENZONATATE 200 MG ORAL CAPS One capsule tid. BENZONATATE 26614005838 No Longer Active Rikki Harms PA Active FLONASE ALLERGY RELIEF 50 MCG/ACT NASAL SUSP spray twice in each nostril one time daily FLUTICASONE PROPIONATE 47618254302 No Longer Active Rikki Harms PA Active TUSSIONEX PENNKINETIC ER 10-8 MG/5ML LQCR 5ml po q12hr PRN Cough HYDROCOD POLST-CHLORPHEN POLST 68370685635 No Longer Active Rikki Harms PA Active NIACIN ER 500 MG ORAL CR-TABS Take one twice daily NIACIN 22710299891 Active Rikki Harms PA Active ALBUTEROL SULFATE 0.083 % NEBU SOLN one vial per nebulizer every 4-6 hours as needed ALBUTEROL SULFATE 99761385900 No Longer Active Rikki Harms DARWIN Active MEDROL (CAROLYN) 4 MG TABS 6 tabs on day 1, 5 tabs on day 2, 4 tabs on day 3, 3 tabs on day 4, 2 tabs on day 5, 1 tab on day 6 METHYLPREDNISOLONE 87393200266 No Longer Active Rikki Harms PA Active LEVAQUIN 750 MG TABS 1 po qd x 7 days LEVOFLOXACIN 79039358830 No Longer Active Rikki Harms PA Active LEVAQUIN 500 MG ORAL TABS Take one tablet daily LEVOFLOXACIN 79521945059 No Longer Active Rikki Harms PA Active PROAIR HFA 108 (90 BASE) MCG/ACT AERS 2 puffs four times a day as needed 2014 ALBUTEROL SULFATE 19364753901 Active Marta Yokum TERMINAL CARMAN Active LEVAQUIN 500 MG TAB 1 tablet by mouth daily LEVOFLOXACIN 25569457628 No Longer Active Marta Yokum TERMINAL CARMAN Active CHERATUSSIN AC 100-10 MG/5ML SYRP 1 tsp by mouth every 4 hours as needed for cough GUAIFENESIN-CODEINE 60562544613 No Longer Active Rikki Harms PA Active MUPIROCIN 2 % EXT OINT Use in each nostril in am and pm MUPIROCIN 27821725877 No Longer Active Rikki Harms PA Active DOXYCYCLINE HYCLATE 100 MG ORAL CAPS Take one bid DOXYCYCLINE HYCLATE 25965024878 No Longer Active Rikki Harms PA Active CLARITIN 10 MG TABS 1prn LORATADINE 36963416833 No Longer Active Jocelyne Naff SENIOR QA ANALYST Active ASPIRIN 81 MG TABS 1qd ASPIRIN 53872487412 No Longer Active Jocelyne Naff SENIOR QA ANALYST Active DOXYCYCLINE HYCLATE 100 MG CAP 1 cap by mouth twice daily DOXYCYCLINE HYCLATE 76334939173 No Longer Active Rikki Harms PA Active VITAMIN D3 94824 UNIT CAPS 1 pill by mouth weekly, for vitamin D deficiency CHOLECALCIFEROL 12382858338 No Longer Active Jennifer Chun MD PhD Active ANASTROZOLE 1 MG ORAL TABS Take one by mouth daily ANASTROZOLE 89922564249 Active Jennifer Chun MD PhD Active ZITHROMAX 250 MG TAB 2 po today, then 1 po q days 2-5 AZITHROMYCIN 88840683996 No Longer Active Rikki Harms PA Active MECLIZINE HCL 25 MG TABS 1 prn MECLIZINE HCL 03989433483 No Longer Active Solomon Alamo MD Active CHERATUSSIN AC SYRP prn as directed GUAIFENESIN- CODEINE SYRP 92703987852 No Longer Active Rikki Harms PA Active MULTIVITAMINS TABS 1qd MULTIPLE VITAMIN 93859808325 No Longer Active Rikki Harms PA Active OMEPRAZOLE 20 MG CPDR 1 PO Q D OMEPRAZOLE 03350254061 Active Rikki Harms PA Active ZITHROMAX Z-CAROLYN 250 MG TABS 2x1day,9d0hmdx AZITHROMYCIN 56376124784 No Longer Active Jocelyne Lovell SENIOR QA ANALYST Active MULTIVITAMINS TABS 1qd MULTIVITAMINS TABS MULTIPLE VITAMIN Inactive CHERATUSSIN AC SYRP prn as directed CHERATUSSIN AC SYRP GUAIFENESIN-CODEINE SYRP Inactive MECLIZINE HCL 25 MG TABS 1 prn MECLIZINE HCL 25 MG TABS 335364 MECLIZINE HCL Inactive ASPIRIN 81 MG TABS 1qd ASPIRIN 81 MG TABS ASPIRIN Inactive CLARITIN 10 MG TABS 1prn CLARITIN 10 MG TABS 157504 LORATADINE Inactive DOXYCYCLINE HYCLATE 100 MG ORAL CAPS Take one bid DOXYCYCLINE HYCLATE 100 MG ORAL CAPS 3215741 DOXYCYCLINE HYCLATE Inactive MUPIROCIN 2 % EXT OINT Use in each nostril in am and pm MUPIROCIN 2 % EXT OINT 475301 MUPIROCIN Inactive CHERATUSSIN AC 100-10 MG/5ML SYRP 1 tsp by mouth every 4 hours as needed for cough CHERATUSSIN AC 100-10 MG/5ML SYRP 169623 GUAIFENESIN-CODEINE Inactive LEVAQUIN 500 MG TAB 1 tablet by mouth daily LEVAQUIN 500 MG TAB 586236 LEVOFLOXACIN Inactive LEVAQUIN 500 MG ORAL TABS Take one tablet daily LEVAQUIN 500 MG ORAL TABS 513330 LEVOFLOXACIN Inactive LEVAQUIN 750 MG TABS 1 po qd x 7 days LEVAQUIN 750 MG TABS 696255 LEVOFLOXACIN Inactive ALBUTEROL SULFATE 0.083 % NEBU SOLN one vial per nebulizer every 4-6 hours as needed ALBUTEROL SULFATE 0.083 % NEBU SOLN 050791 ALBUTEROL SULFATE Inactive TUSSIONEX PENNKINETIC ER 10-8 MG/5ML LQCR 5ml po q12hr PRN Cough TUSSIONEX PENNKINETIC ER 10-8 MG/5ML LQCR HYDROCOD POLST- CHLORPHEN POLST Inactive FLONASE ALLERGY RELIEF 50 MCG/ACT NASAL SUSP spray twice in each nostril one time daily FLONASE ALLERGY RELIEF 50 MCG/ACT NASAL SUSP 9728325 FLUTICASONE PROPIONATE Inactive BENZONATATE 200 MG ORAL CAPS One capsule tid. BENZONATATE 200 MG ORAL CAPS 605426 BENZONATATE Inactive CEPHALEXIN 500 MG ORAL CAPS Take one four times a day CEPHALEXIN 500 MG ORAL CAPS 964956 CEPHALEXIN Inactive ZITHROMAX Z-CAROLYN 250 MG TABS 2x1day,2u2ijyc ZITHROMAX Z-CAROLYN 250 MG TABS 9470652 AZITHROMYCIN Inactive ZITHROMAX 250 MG TAB 2 po today, then 1 po q days 2-5 ZITHROMAX 250 MG TAB 9772638 AZITHROMYCIN Inactive VITAMIN D3 46059 UNIT CAPS 1 pill by mouth weekly, for vitamin D deficiency VITAMIN D3 93432 UNIT CAPS CHOLECALCIFEROL Inactive DOXYCYCLINE HYCLATE 100 MG CAP 1 cap by mouth twice daily DOXYCYCLINE HYCLATE 100 MG CAP 3271768 DOXYCYCLINE HYCLATE Inactive MEDROL (CAROLYN) 4 MG TABS 6 tabs on day 1, 5 tabs on day 2, 4 tabs on day 3, 3 tabs on day 4, 2 tabs on day 5, 1 tab on day 6 MEDROL ( CAROLYN) 4 MG TABS 752375 METHYLPREDNISOLONE Inactive Vital Signs Date Name Value Unit Range Description blood pressure, diastolic - 8462-4 80 mm[Hg] [...] Panel - Chemistry sodium, serum 142 mmol/L 794-332 0000/07/25 potassium, serum 4.0 mmol/L 3.5-5.2 chloride, serum 107 mmol/L 98-107 carbon dioxide, venous blood 31.6 mmol/L 21.0-32.0 blood glucose 108 mg/dL 65-110 calcium, serum 9.2 mg/dL 8.5-10.1 urea nitrogen, blood 20 mg/dL 7-18 creatinine, serum 0.92 mg/dL 0.55-1.30 Lab Report: CBC W/DIFF - [...] % 11.6-14.8 platelet count 269 10^3/MM^3 10*3/mm3 918-262 0628/12/16 leukocyte count, blood 3.2 10^3/MM^3 10*3/mm3 4.6-10.2 [...] % 11.6-14.8 platelet count 158 10^3/MM^3 10*3/mm3 694-805 4323/12/18 leukocyte count, blood 8.8 10^3/MM^3 10*3/mm3 4.6-10.2 [...] % 11.6-14.8 platelet count 207 10^3/MM^3 10*3/mm3 281-960 1955/12/23 leukocyte count, blood 6.2 10^3/MM^3 10*3/mm3 4.6-10.2 [...] % 11.6-14.8 platelet count 183 10^3/MM^3 10*3/mm3 698-552 3042/12/30 leukocyte count, blood 5.2 10^3/MM^3 10*3/mm3 4.6-10.2 [...] % 11.6-14.8 platelet count 200 10^3/MM^3 10*3/mm3 664-922 4276/11/11 leukocyte count, blood 2.0 10^3/MM^3 10*3/mm3 4.6-10.2 neutrophils as percent of blood leukocytes 21.1 % 42.2-75.2 monocytes as percent of blood leukocytes 14.8 % 1.7-9.3 lymphocytes as percent of blood leukocytes 50.0 % 20.5-51.1 erythrocyte (RBC) count 3.87 10^6/MM^3 10*6/mm3 4.04-5.48 hemoglobin, blood 11.7 g/dL 12.0-16.0 hematocrit, blood 34.9 % 36.0-46.0 mean corpuscular volume, RBC 90 fL 80-97 mean corpuscular hemoglobin, RBC 30.4 pg 27.0-31.2 mean corpuscular hemoglobin concentration, RBC 33.6 G/DL % 31.8- 35.4 red blood cell distribution width 13.9 % 11.6-14.8 platelet count 203 10^3/MM^3 10*3/mm3 827-330 6073/11/18 leukocyte count, blood 8.5 10^3/MM^3 10*3/mm3 4.6-10.2 neutrophils as percent of blood leukocytes 62.1 % 42.2-75.2 monocytes as percent of blood leukocytes 10.4 % 1.7-9.3 lymphocytes as percent of blood leukocytes 20.8 % 20.5-51.1 erythrocyte (RBC) count 4.41 10^6/MM^3 10*6/mm3 4.04-5.48 hemoglobin, blood 13.4 g/dL 12.0-16.0 hematocrit, blood 40.0 % 36.0-46.0 mean corpuscular volume, RBC 91 fL 80-97 mean corpuscular hemoglobin, RBC 30.4 pg 27.0-31.2 mean corpuscular hemoglobin concentration, RBC 33.5 G/DL % 31.8- 35.4 red blood cell distribution width 14.9 % 11.6-14.8 platelet count 143 10^3/MM^3 10*3/mm3 716-230 2394/11/25 leukocyte count, blood 2.1 10^3/MM^3 10*3/mm3 4.6-10.2 [...] % 11.6-14.8 platelet count 139 10^3/MM^3 10*3/mm3 568-800 1482/12/02 leukocyte count, blood 6.7 10^3/MM^3 10*3/mm3 4.6-10.2 [...] % 11.6-14.8 platelet count 258 10^3/MM^3 10*3/mm3 711-354 6745/12/09 leukocyte count, blood 5.3 10^3/MM^3 10*3/mm3 4.6-10.2 [...] % 11.6-14.8 platelet count 240 10^3/MM^3 10*3/mm3 142-424 Lab Report: CBC W/DIFF, Comp. Metabolic Panel - Chemistry sodium, serum 138 mmol/L 500-928 5365/11/04 carbon dioxide, venous blood 27.7 mmol/L 21.0-32.0 potassium, serum 4.9 mmol/L 3.5-5.2 chloride, serum 104 mmol/L 98-107 blood glucose 92 mg/dL 65-110 urea nitrogen, blood 24 mg/dL 7-18 creatinine, serum 0.95 mg/dL 0.55-1.30 alanine aminotransferase (SGPT), serum 34 U/L -78 aspartate aminotransferase (SGOT), serum 23 U/L 15-37 calcium, serum 8.9 mg/dL 8.5-10.1 bilirubin, serum, total 0.70 mg/dL 0.00-1.00 sodium, serum 140 mmol/L 623-347 7671/01/06 carbon dioxide, venous blood 27.2 mmol/L 21.0-32.0 potassium, serum 4.1 mmol/L 3.5-5.2 chloride, serum 105 mmol/L 98-107 blood glucose 70 mg/dL 65-110 urea nitrogen, blood 25 mg/dL 7-18 creatinine, serum 0.90 mg/dL 0.55-1.30 alanine aminotransferase (SGPT), serum 28 U/L -78 aspartate aminotransferase (SGOT), serum 20 U/L 15-37 calcium, serum 8.9 mg/dL 8.5-10.1 bilirubin, serum, total 0.40 mg/dL 0.00-1.00 sodium, serum 140 mmol/L 254-014 0636/01/13 carbon dioxide, venous blood 26.4 mmol/L 21.0-32.0 potassium, serum 4.2 mmol/L 3.5-5.2 chloride, serum 104 mmol/L 98-107 blood glucose 101 mg/dL 65-110 urea nitrogen, blood 18 mg/dL 7-18 creatinine, serum 0.80 mg/dL 0.55-1.30 alanine aminotransferase (SGPT), serum 28 U/L -78 aspartate aminotransferase (SGOT), serum 24 U/L 15-37 calcium, serum 8.7 mg/dL 8.5-10.1 bilirubin, serum, total 0.50 mg/dL 0.00-1.00 sodium, serum 142 mmol/L 405-490 3638/02/04 carbon dioxide, venous blood 24.9 mmol/L 21.0-32.0 potassium, serum 4.1 mmol/L 3.5-5.2 chloride, serum 106 mmol/L 98-107 blood glucose 103 mg/dL 65-110 urea nitrogen, blood 25 mg/dL 7-18 creatinine, serum 0.83 mg/dL 0.55-1.30 alanine aminotransferase (SGPT), serum 38 U/L -78 aspartate aminotransferase (SGOT), serum 26 U/L 15-37 calcium, serum 8.7 mg/dL 8.5-10.1 bilirubin, serum, total 0.30 mg/dL 0.00-1.00 Lab Report: CBC W/DIFF, Comp. Metabolic Panel - Hematology leukocyte count, blood 4.1 10^3/MM^3 10*3/mm3 4.6-10.2 [...] % 11.6-14.8 platelet count 297 10^3/MM^3 10*3/mm3 887-663 9663/02/04 leukocyte count, blood 4.2 10^3/MM^3 10*3/mm3 4.6-10.2 [...] % 11.6-14.8 platelet count 271 10^3/MM^3 10*3/mm3 129-604 9492/01/13 leukocyte count, blood 5.2 10^3/MM^3 10*3/mm3 4.6-10.2 [...] % 11.6-14.8 platelet count 289 10^3/MM^3 10*3/mm3 455-806 7243/11/04 leukocyte count, blood 3.8 10^3/MM^3 10*3/mm3 4.6-10.2 neutrophils as percent of blood leukocytes 71.6 % 42.2-75.2 monocytes as percent of blood leukocytes 0.8 % 1.7-9.3 lymphocytes as percent of blood leukocytes 21.3 % 20.5-51.1 erythrocyte (RBC) count 4.61 10^6/MM^3 10*6/mm3 4.04-5.48 hemoglobin, blood 13.8 g/dL 12.0-16.0 hematocrit, blood 41.4 % 36.0-46.0 mean corpuscular volume, RBC 90 fL 80-97 mean corpuscular hemoglobin, RBC 30.0 pg 27.0-31.2 mean corpuscular hemoglobin concentration, RBC 33.4 G/DL % 31.8- 35.4 red blood cell distribution width 14.4 % 11.6-14.8 platelet count 216 10^3/MM^3 10*3/mm3 142-424 Lab Report: Comp. Metabolic Panel - Chemistry sodium, serum 141 mmol/L 783-367 3691/11/11 carbon dioxide, venous blood 26.8 mmol/L 21.0-32.0 potassium, serum 4.2 mmol/L 3.5-5.2 chloride, serum 106 mmol/L 98-107 blood glucose 95 mg/dL 65-110 urea nitrogen, blood 18 mg/dL 7-18 creatinine, serum 0.70 mg/dL 0.55-1.30 alanine aminotransferase (SGPT), serum 33 U/L -78 aspartate aminotransferase (SGOT), serum 22 U/L 15-37 calcium, serum 8.5 mg/dL 8.5-10.1 bilirubin, serum, total 0.30 mg/dL 0.00-1.00 sodium, serum 141 mmol/L 426-962 2928/11/18 carbon dioxide, venous blood 26.2 mmol/L 21.0-32.0 potassium, serum 4.4 mmol/L 3.5-5.2 chloride, serum 106 mmol/L 98-107 blood glucose 102 mg/dL 65-110 urea nitrogen, blood 24 mg/dL 7-18 creatinine, serum 0.77 mg/dL 0.55-1.30 alanine aminotransferase (SGPT), serum 30 U/L -78 aspartate aminotransferase (SGOT), serum 15 U/L 15-37 calcium, serum 8.3 mg/dL 8.5-10.1 bilirubin, serum, total 0.30 mg/dL 0.00-1.00 sodium, serum 139 mmol/L 239-348 6648/11/25 carbon dioxide, venous blood 27.9 mmol/L 21.0-32.0 potassium, serum 4.7 mmol/L 3.5-5.2 chloride, serum 105 mmol/L 98-107 blood glucose 94 mg/dL 65-110 urea nitrogen, blood 21 mg/dL 7-18 creatinine, serum 0.79 mg/dL 0.55-1.30 alanine aminotransferase (SGPT), serum 40 U/L -78 aspartate aminotransferase (SGOT), serum 22 U/L 15-37 calcium, serum 8.5 mg/dL 8.5-10.1 bilirubin, serum, total 0.80 mg/dL 0.00-1.00 sodium, serum 142 mmol/L 210-759 3758/12/09 carbon dioxide, venous blood 28.5 mmol/L 21.0-32.0 potassium, serum 5.0 mmol/L 3.5-5.2 chloride, serum 109 mmol/L 98-107 blood glucose 91 mg/dL 65-110 urea nitrogen, blood 27 mg/dL 7-18 creatinine, serum 0.88 mg/dL 0.55-1.30 alanine aminotransferase (SGPT), serum 31 U/L 78 aspartate aminotransferase (SGOT), serum 18 U/L 15-37 calcium, serum 8.9 mg/dL 8.5-10.1 bilirubin, serum, total 0.40 mg/dL 0.00-1.00 sodium, serum 140 mmol/L 324-640 8029/12/16 carbon dioxide, venous blood 25.4 mmol/L 21.0-32.0 potassium, serum 4.1 mmol/L 3.5-5.2 chloride, serum 104 mmol/L 98-107 blood glucose 110 mg/dL 65-110 urea nitrogen, blood 24 mg/dL 7-18 creatinine, serum 0.87 mg/dL 0.55-1.30 alanine aminotransferase (SGPT), serum 35 U/L aspartate aminotransferase (SGOT), serum 21 U/L 15-37 calcium, serum 8.4 mg/dL 8.5-10.1 bilirubin, serum, total 0.50 mg/dL 0.00-1.00 sodium, serum 141 mmol/L 973-843 6497/12/02 carbon dioxide, venous blood 25.9 mmol/L 21.0-32.0 potassium, serum 4.7 mmol/L 3.5-5.2 chloride, serum 106 mmol/L 98-107 blood glucose 78 mg/dL 65-110 urea nitrogen, blood 24 mg/dL 7-18 creatinine, serum 0.75 mg/dL 0.55-1.30 alanine aminotransferase (SGPT), serum 31 U/L aspartate aminotransferase (SGOT), serum 20 U/L - calcium, serum 8.7 mg/dL 8.5-10.1 bilirubin, serum, total 0.30 mg/dL 0.00-1.00 sodium, serum 139 mmol/L 689-268 0836/12/30 carbon dioxide, venous blood 28.2 mmol/L 21.0-32.0 potassium, serum 3.9 mmol/L 3.5-5.2 chloride, serum 105 mmol/L 98-107 blood glucose 91 mg/dL 65-110 urea nitrogen, blood 17 mg/dL 7-18 creatinine, serum 0.81 mg/dL 0.55-1.30 alanine aminotransferase (SGPT), serum 29 U/L aspartate aminotransferase (SGOT), serum 22 U/L - calcium, serum 8.8 mg/dL 8.5-10.1 bilirubin, serum, total 0.50 mg/dL 0.00-1.00 sodium, serum 143 mmol/L 740-009 8988/12/23 carbon dioxide, venous blood 24.6 mmol/L 21.0-32.0 [...] (L) - Chemistry cholesterol, serum 177 mg/dL 741-215 4671/10/31 triglyceride, serum, fasting 64 mg/dL 30-200 HDL cholesterol, serum 77 mg/dL 32-96 LDL cholesterol, serum 87 mg/dL 0-130 TSH 2.13 m[iU]/mL 0.36-3.74 Encounters Code Encounter Date Provider Facility CPT-84728 Level 4 Est. Patient 17:31:07 CDT Marta Viramontes [facility] CPT-36138 Level 3 Est. Patient 05:11:40 CDT Rikki GRANADOS [facility] [place][note 2] CPT-74732 Level 2 Est. Patient 14:30:43 DIRECT CARE SUPERVISOR Marta Viramontes [facility] CPT-70334 Level 4 Est. Patient 09:14:36 DIRECT CARE SUPERVISOR Rikki GRANADOS [facility] CPT-00069 Level 2 Est. Patient 09:07:32 CDT Marta Viramontes [facility] CPT-83857 Level 4 Est. Patient 11:55:00 CDT Rikki GRANADOS [facility] CPT-38483 Level 3 Est. Patient 13:25:16 CDT Jennifer Chun MD PhD [facility] CPT-38954 Level 3 Est. Patient 17:31:22 CDT Solomon Alamo MD [facility] CPT-47731 Level 3 Est. Patient 08:02:14 CDT Solomon Alamo MD [facility] CPT-31761 Level 3 Est. Patient 17:23:53 CDT Rikki Stearns PA [facility] CPT-65945 Level 3 Est. Patient 11:22:41 CDT Darryn Hearn Formerly named [facility] Procedures Code Procedure Name Date Entry Date Standard Description CPT-38694 Magnesium - LAB USE ONLY 09:54:30 CDT CPT-50792 TSH - LAB USE ONLY 09:54:30 CDT CPT-70459 Lipid - LAB USE ONLY 09:54:30 CDT CPT-49532 Venipuncture Draw Fee 09:54:29 CDT CPT-80273 Venipuncture Draw Fee 18:27:04 CDT CPT-89800 Chest 2V Frontal and Lat 10:57:00 DIRECT CARE SUPERVISOR CPT-33037 Venipuncture Draw Fee 10:56:59 DIRECT CARE SUPERVISOR CPT-79505 Venipuncture Draw Fee 09:22:28 DIRECT CARE SUPERVISOR CPT-92516 Chest 2V Frontal and Lat 09:22:27 DIRECT CARE SUPERVISOR CPT-I/D I/D Abscess 09:43:13 CDT CPT-66919 Venipuncture Draw Fee 08:16:46 DIRECT CARE SUPERVISOR CPT-99483 Venipuncture Draw Fee 08:18:55 DIRECT CARE SUPERVISOR CPT-43657 Venipuncture Draw Fee 08:31:18 DIRECT CARE SUPERVISOR CPT-77183 Venipuncture Draw Fee 11:42:52 DIRECT CARE SUPERVISOR CPT-36641 Venipuncture Draw Fee 13:26:37 DIRECT CARE SUPERVISOR CPT-95167 Venipuncture Draw Fee 09:23:38 DIRECT CARE SUPERVISOR CPT-000 Give Appropriate Tetanus Booster 10:23:50 CDT CPT-03693 Bone Density 08:28:45 CDT CPT-74511 Bone Density 11:35:15 CDT CPT-PV Prev. Care Visit 12:19:00 CDT CPT-89151 Venipuncture Draw Fee 15:02:58 CDT
--- OUTSIDE RECORDS SUMMARY | 2018-01-19 06:48 | XMS REPORT | Clinical Summary ---
Author Author Admin, E Organization [facility] [place] Address Unknown Phone Unavailable Allergies, Adverse Reactions, Alerts Allergy Name Reaction Description Start Date Severity Status Provider SULFA facial swelling Critical Active Jocelyne Naff CONFERENCE SPECIALIST Conditions or Problems Problem Name Problem Code Onset Date Status Entry Date Provider Comment Standard Description Annotate G E R D 530.81 Active Jocelyne Naff CONFERENCE SPECIALIST Esophageal reflux FH COLON CANCER V16.0 Active Jocelyne Naff CONFERENCE SPECIALIST Family history of malignant neoplasm of gastrointestinal [...] for antineoplastic chemotherapy Cough, chronic 786.2 Resolved Rikik Stearns PA Cough Ingrown toenail, left 703.0 Resolved Marta Yokum BOTTLE AND GLASS INSPECTOR Ingrowing nail cellulitis, finger, right 681.00 Active Marta Yokum BOTTLE AND GLASS INSPECTOR Cellulitis and abscess of finger, unspecified Cough 786.2 Active Marta Yokum BOTTLE AND GLASS INSPECTOR Cough Breast microcalcification ICD-793.81 Inactive Jennifer Chun MD PhD Abnormal Mammogram ICD-793.80 Inactive Jennifer Chun MD PhD Soft tissue infection ICD-528.9 Inactive Rikki Stearns PA Abscess, skin ICD-682.9 Inactive Rikki Stearns PA Cellulitis, 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 Rikki Stearns PA Rash ICD-782.1 Inactive Rikki Stearns DARWIN Upper respiratory infection, acute ICD-465.9 Inactive Rikki Stearns PA Chemotherapy ICD-V58.11 Inactive Rikki Stearns DARWIN Cough, chronic ICD-786.2 Inactive Rikki Stearns DARWIN Ingrown toenail, left ICD-703.0 Inactive Matra Yokum BOTTLE AND GLASS INSPECTOR Medication List Medication Instructions Start Date Stop Date Generic Name NDC Status Provider Patient Instruction MEDROL (CAROLYN) 4 MG TABS 6 tabs on day 1, 5 tabs on day 2, 4 tabs on day 3, 3 tabs on day 4, 2 tabs on day 5, 1 tab on day 6 METHYLPREDNISOLONE 02735697667 Active Marta Yokum BOTTLE AND GLASS INSPECTOR Active TESSALON PERLES 100 MG CAP 1 to 2 tablets by mouth 3 times daily as needed for cough BENZONATATE 63690310610 Active Marta Yokum BOTTLE AND GLASS INSPECTOR Active TUSSIONEX PENNKINETIC ER 10-8 MG/5ML LQCR 5ml po q12hr PRN Cough HYDROCOD POLST-CHLORPHEN POLST 71482195141 Active Marta Yokum BOTTLE AND GLASS INSPECTOR Active KEFLEX 500 MG CAP 1 po qid CEPHALEXIN 25580020530 No Longer Active Marta Yokum BOTTLE AND GLASS INSPECTOR Active B COMPLEX 50 ORAL CR-TABS B COMPLEX VITAMINS 67885628301 Active Marta Yokum BOTTLE AND GLASS INSPECTOR Active TUSSIONEX PENNKINETIC ER 10-8 MG/5ML LQCR 5ml po q12hr PRN Cough HYDROCOD POLST-CHLORPHEN POLST 32933397581 No Longer Active Marta Viramontes APRN Active VITAMIN D3 90673 UNIT CAPS 1 qWeek x 4 months for vitamin D deficiency 04/09 CHOLECALCIFEROL 53212461067 Active Marta Viramontes APRN Active CEPHALEXIN 500 MG ORAL CAPS Take one four times a day CEPHALEXIN 08305605314 No Longer Active Marta Viramontes APRN Active BIOTIN 1000 MCG ORAL TABS Take one daily BIOTIN 32415670278 Active Rikki Harms PA Active VITAMIN C 500 MG ORAL CAPS Take one daily ASCORBIC ACID 30659238684 Active Rikki Harms PA Active BENZONATATE 200 MG ORAL CAPS One capsule tid. BENZONATATE 73756295898 No Longer Active Rikki Harms PA Active FLONASE ALLERGY RELIEF 50 MCG/ACT NASAL SUSP spray twice in each nostril one time daily FLUTICASONE PROPIONATE 75772353136 No Longer Active Rikki Harms PA Active TUSSIONEX PENNKINETIC ER 10-8 MG/5ML LQCR 5ml po q12hr PRN Cough HYDROCOD POLST-CHLORPHEN POLST 06623018828 No Longer Active Rikki Harms PA Active NIACIN ER 500 MG ORAL CR-TABS Take one twice daily NIACIN 45047465297 Active Rikki Harms PA Active ALBUTEROL SULFATE 0.083 % NEBU SOLN one vial per nebulizer every 4-6 hours as needed ALBUTEROL SULFATE 88947513296 No Longer Active Rikki Harms PA Active MEDROL (CAROLYN) 4 MG TABS 6 tabs on day 1, 5 tabs on day 2, 4 tabs on day 3, 3 tabs on day 4, 2 tabs on day 5, 1 tab on day 6 METHYLPREDNISOLONE 60163816826 No Longer Active Rikki Harms PA Active LEVAQUIN 750 MG TABS 1 po qd x 7 days LEVOFLOXACIN 59424014628 No Longer Active Rikki Harms PA Active LEVAQUIN 500 MG ORAL TABS Take one tablet daily LEVOFLOXACIN 63850913506 No Longer Active Rikki Harms PA Active PROAIR HFA 108 (90 BASE) MCG/ACT AERS 2 puffs four times a day as needed 2014 ALBUTEROL SULFATE 50687041053 Active Marta Yokum BOTTLE AND GLASS INSPECTOR Active LEVAQUIN 500 MG TAB 1 tablet by mouth daily LEVOFLOXACIN 48157515858 No Longer Active Marta Yokum BOTTLE AND GLASS INSPECTOR Active CHERATUSSIN AC 100-10 MG/5ML SYRP 1 tsp by mouth every 4 hours as needed for cough GUAIFENESIN-CODEINE 45105551497 No Longer Active Rikki Harms PA Active MUPIROCIN 2 % EXT OINT Use in each nostril in am and pm MUPIROCIN 80542493709 No Longer Active Rikki Harms PA Active DOXYCYCLINE HYCLATE 100 MG ORAL CAPS Take one bid DOXYCYCLINE HYCLATE 69948347177 No Longer Active Rikki Harms PA Active CLARITIN 10 MG TABS 1prn LORATADINE 97093976730 No Longer Active Jocelyne Naff CONFERENCE SPECIALIST Active ASPIRIN 81 MG TABS 1qd ASPIRIN 16096305737 No Longer Active Jocelyne Naff CONFERENCE SPECIALIST Active DOXYCYCLINE HYCLATE 100 MG CAP 1 cap by mouth twice daily DOXYCYCLINE HYCLATE 73978276245 No Longer Active Rikki Harms PA Active VITAMIN D3 16354 UNIT CAPS 1 pill by mouth weekly, for vitamin D deficiency CHOLECALCIFEROL 46351238384 No Longer Active Jennifer Chun MD PhD Active ANASTROZOLE 1 MG ORAL TABS Take one by mouth daily ANASTROZOLE 11983829257 Active Jennifer Chun MD PhD Active ZITHROMAX 250 MG TAB 2 po today, then 1 po q days 2-5 AZITHROMYCIN 00391574357 No Longer Active Rikki Harms PA Active MECLIZINE HCL 25 MG TABS 1 prn MECLIZINE HCL 49318972816 No Longer Active Solomon Alamo MD Active CHERATUSSIN AC SYRP prn as directed GUAIFENESIN- CODEINE SYRP 46373320030 No Longer Active Rikki Harms PA Active MULTIVITAMINS TABS 1qd MULTIPLE VITAMIN 97366582943 No Longer Active Rikki Harms PA Active OMEPRAZOLE 20 MG CPDR 1 PO Q D OMEPRAZOLE 72613676030 Active Jocelyne Naff CONFERENCE SPECIALIST Active ZITHROMAX Z-CAROLYN 250 MG TABS 2x1day,3a6hyye AZITHROMYCIN 67836581744 No Longer Active Jocelyne Naff CONFERENCE SPECIALIST Active MULTIVITAMINS TABS 1qd MULTIVITAMINS TABS MULTIPLE VITAMIN Inactive CHERATUSSIN AC SYRP prn as directed CHERATUSSIN AC SYRP GUAIFENESIN-CODEINE SYRP Inactive MECLIZINE HCL 25 MG TABS 1 prn MECLIZINE HCL 25 MG TABS 183960 MECLIZINE HCL Inactive ASPIRIN 81 MG TABS 1qd ASPIRIN 81 MG TABS ASPIRIN Inactive CLARITIN 10 MG TABS 1prn CLARITIN 10 MG TABS 248563 LORATADINE Inactive DOXYCYCLINE HYCLATE 100 MG ORAL CAPS Take one bid DOXYCYCLINE HYCLATE 100 MG ORAL CAPS 8012524 DOXYCYCLINE HYCLATE Inactive MUPIROCIN 2 % EXT OINT Use in each nostril in am and pm MUPIROCIN 2 % EXT OINT 942339 MUPIROCIN Inactive CHERATUSSIN AC 100-10 MG/5ML SYRP 1 tsp by mouth every 4 hours as needed for cough CHERATUSSIN AC 100-10 MG/5ML SYRP 367690 GUAIFENESIN-CODEINE Inactive LEVAQUIN 500 MG TAB 1 tablet by mouth daily LEVAQUIN 500 MG TAB 529808 LEVOFLOXACIN Inactive LEVAQUIN 500 MG ORAL TABS Take one tablet daily LEVAQUIN 500 MG ORAL TABS 19980111 LEVOFLOXACIN Inactive LEVAQUIN 750 MG TABS 1 po qd x 7 days LEVAQUIN 750 MG TABS 571340 LEVOFLOXACIN Inactive ALBUTEROL SULFATE 0.083 % NEBU SOLN one vial per nebulizer every 4-6 hours as needed ALBUTEROL SULFATE 0.083 % NEBU SOLN 921523 ALBUTEROL SULFATE Inactive TUSSIONEX PENNKINETIC ER 10-8 MG/5ML LQCR 5ml po q12hr PRN Cough TUSSIONEX PENNKINETIC ER 10-8 MG/5ML LQCR HYDROCOD POLST- CHLORPHEN POLST Inactive FLONASE ALLERGY RELIEF 50 MCG/ACT NASAL SUSP spray twice in each nostril one time daily FLONASE ALLERGY RELIEF 50 MCG/ACT NASAL SUSP 5289794 FLUTICASONE PROPIONATE Inactive BENZONATATE 200 MG ORAL CAPS One capsule tid. BENZONATATE 200 MG ORAL CAPS 445556 BENZONATATE Inactive CEPHALEXIN 500 MG ORAL CAPS Take one four times a day CEPHALEXIN 500 MG ORAL CAPS 961177 CEPHALEXIN Inactive TUSSIONEX PENNKINETIC ER 10-8 MG/5ML LQCR 5ml po q12hr PRN Cough TUSSIONEX PENNKINETIC ER 10-8 MG/5ML LQCR HYDROCOD POLST- CHLORPHEN POLST Inactive ZITHROMAX Z-CAROLYN 250 MG TABS 2x1day,9j6rhie ZITHROMAX Z-CAROLYN 250 MG TABS 1686347 AZITHROMYCIN Inactive ZITHROMAX 250 MG TAB 2 po today, then 1 po q days 2-5 ZITHROMAX 250 MG TAB 0978946 AZITHROMYCIN Inactive VITAMIN D3 52069 UNIT CAPS 1 pill by mouth weekly, for vitamin D deficiency VITAMIN D3 92389 UNIT CAPS CHOLECALCIFEROL Inactive DOXYCYCLINE HYCLATE 100 MG CAP 1 cap by mouth twice daily DOXYCYCLINE HYCLATE 100 MG CAP 3103574 DOXYCYCLINE HYCLATE Inactive MEDROL (CAROLYN) 4 MG TABS 6 tabs on day 1, 5 tabs on day 2, 4 tabs on day 3, 3 tabs on day 4, 2 tabs on day 5, 1 tab on day 6 MEDROL ( CAROLYN) 4 MG TABS 121357 METHYLPREDNISOLONE Inactive KEFLEX 500 MG CAP 1 po qid KEFLEX 500 MG CAP 936984 CEPHALEXIN Inactive Vital Signs Date Name Value Unit Range Description blood pressure, diastolic - 8462-4 58 mm[Hg] BP rivera blood pressure, systolic - 8480-6 147 mm[Hg] BP sys height E&M - 8302-2 62 [in_us] Bdy height pulse rate E&M - 8867-4 85 /min Heart rate temperature E&M 99.5 [degF] Body temperature weight E&M - 3141-9 205.5 [lb_av] Weight Measured blood pressure, diastolic - 8462-4 60 mm[Hg] BP rivera blood pressure, systolic - 8480-6 140 mm[Hg] BP sys pulse rate E&M - 8867-4 77 /min Heart rate temperature E&M 98.3 [degF] Body temperature weight E&M - 3141-9 203.5 [lb_av] Weight Measured blood pressure, diastolic - 8462-4 55 mm[Hg] [...] E&M - 3141-9 199.5 [lb_av] Weight Measured Diagnostic Results Date Name Value Unit Range Description Lab Report: Basic Metabolic Panel - Chemistry sodium, serum 142 mmol/L 887-650 0295/07/25 potassium, serum 4.0 mmol/L 3.5-5.2 chloride, serum 107 mmol/L 98-107 carbon dioxide, venous blood 31.6 mmol/L 21.0-32.0 blood glucose 108 mg/dL 65-110 calcium, serum 9.2 mg/dL 8.5-10.1 urea nitrogen, blood 20 mg/dL 7-18 creatinine, serum 0.92 mg/dL 0.55-1.30 sodium, serum 141 mmol/L 925-109 9747/11/11 potassium, serum 4.2 mmol/L 3.5-5.2 chloride, serum 106 mmol/L 98-107 carbon dioxide, venous blood 29.1 mmol/L 21.0-32.0 blood glucose 95 mg/dL 65-110 calcium, serum 8.6 mg/dL 8.5-10.1 urea nitrogen, blood 23 mg/dL 7-18 creatinine, serum 0.83 mg/dL 0.55-1.30 Lab Report: Lipid Panel, Thyroid Stimulating Hormone (L) - Chemistry cholesterol, serum 177 mg/dL 207-069 8975/10/31 triglyceride, serum, fasting 64 mg/dL 30-200 HDL cholesterol, serum 77 mg/dL 32-96 LDL cholesterol, serum 87 mg/dL 0-130 TSH 2.13 m[iU]/mL 0.36-3.74 Lab Report: VITAMIN D, 25-HYDROXY/41116 - Chemistry vitamin D 25-hydroxy, serum 25 ng/mL 30-100 Encounters Code Encounter Date Provider Facility CPT-78769 Level 3 Est. Patient 16:07:34 CDT Marta Viramontes [facility] CPT-37891 Level 3 Est. Patient 15:39:01 CDT Marta Viramontes [facility] CPT-45255 Level 4 Est. Patient 17:31:07 CDT Marta Viramontes [facility] CPT-71090 Level 3 Est. Patient 05:11:40 CDT Rikki GRANADOS [facility] CPT-35127 Level 2 Est. Patient 14:30:43 ADJUNCT TEACHER Marta Viramontes [facility] CPT-90038 Level 4 Est. Patient 09:14:36 ADJUNCT TEACHER Rikki GRANADOS [facility] CPT-64573 Level 2 Est. Patient 09:07:32 CDT Marta Viramontes [facility] CPT-42381 Level 4 Est. Patient 11:55:00 CDT Rikki GRANADOS [facility] CPT-77879 Level 3 Est. Patient 13:25:16 CDT Jennifer Chun MD [facility] CPT-06262 Level 3 Est. Patient 17:31:22 CDT Solomon Alamo MD [facility] CPT-05605 Level 3 Est. Patient 08:02:14 CDT Solomon Alamo MD [facility] CPT-58888 Level 3 Est. Patient 17:23:53 CDT Rikki GRANADOS [facility] CPT-80571 Level 3 Est. Patient 11:22:41 CDT Darryn Hearn [facility] Procedures Code Procedure Name Date Entry Date Standard Description CPT-34706 Venipuncture Draw Fee 12:43:48 ADJUNCT TEACHER CPT-61219 BMP - LAB USE ONLY 10:32:33 ADJUNCT TEACHER CPT-28634 Venipuncture Draw Fee 10:32:33 ADJUNCT TEACHER CPT-97162 Magnesium - LAB USE ONLY 09:54:30 CDT CPT-68895 TSH - LAB USE ONLY 09:54:30 CDT CPT-92189 Lipid - LAB USE ONLY 09:54:30 CDT CPT-58677 Venipuncture Draw Fee 09:54:29 CDT CPT-41183 Venipuncture Draw Fee 18:27:04 CDT CPT-89378 Chest 2V Frontal and Lat 10:57:00 ADJUNCT TEACHER CPT-81448 Venipuncture Draw Fee 10:56:59 ADJUNCT TEACHER CPT-04220 Venipuncture Draw Fee 09:22:28 ADJUNCT TEACHER CPT-57669 Chest 2V Frontal and Lat 09:22:27 ADJUNCT TEACHER CPT-I/D I/D Abscess 09:43:13 CDT CPT-49278 Venipuncture Draw Fee 08:16:46 ADJUNCT TEACHER CPT-93787 Venipuncture Draw Fee 08:18:55 ADJUNCT TEACHER CPT-63038 Venipuncture Draw Fee 08:31:18 ADJUNCT TEACHER CPT-93317 Venipuncture Draw Fee 11:42:52 ADJUNCT TEACHER CPT-40944 Venipuncture Draw Fee 13:26:37 ADJUNCT TEACHER CPT-16596 Venipuncture Draw Fee 09:23:38 ADJUNCT TEACHER CPT-000 Give Appropriate Tetanus Booster 10:23:50 CDT CPT-07684 Bone Density 08:28:45 CDT CPT-00447 Bone Density 11:35:15 CDT CPT-PV Prev. Care Visit 12:19:00 CDT CPT-49919 Venipuncture Draw Fee 15:02:58 CDT
--- OUTSIDE RECORDS SUMMARY | 2018-01-19 06:48 | XMS REPORT | Clinical Summary ---
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] vitamin D deficiency Soft tissue infection 528.9 Active Rikki Stearns PA Other and unspecified diseases of the oral soft tissues Abscess, skin 682.9 Active Darryn GRANADOS Cellulitis and abscess of unspecified sites Cellulitis, 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 Rikki Stearns PA Cellulitis and abscess of unspecified sites Rash 782.1 Active Marta Ana M JETER Rash and other nonspecific skin eruption Breast microcalcification ICD-793.81 Inactive Jennifer Chun MD PhD Abnormal Mammogram ICD-793.80 Inactive Jennifer Chun MD PhD Medication List Medication Instructions Start Date Stop Date Generic Name NDC Status Provider Patient Instruction MUPIROCIN 2 % EXT OINT Use in each nostril in am and pm MUPIROCIN 23110566114 Active Jocelyne Naff COMPUTER METHODS ANALYST Active CLARITIN 10 MG TABS 1prn LORATADINE 05667996193 No Longer Active Jocelyne Naff COMPUTER METHODS ANALYST Active ASPIRIN 81 MG TABS 1qd ASPIRIN 93006474694 No Longer Active Jocelyne Naff COMPUTER METHODS ANALYST Active DOXYCYCLINE HYCLATE 100 MG ORAL CAPS Take one bid DOXYCYCLINE HYCLATE 75863214484 Active Jocelyne Naff COMPUTER METHODS ANALYST Active DOXYCYCLINE HYCLATE 100 MG CAP 1 cap by mouth twice daily DOXYCYCLINE HYCLATE 06796716618 No Longer Active Rikki GRANADOS Active VITAMIN D3 41733 UNIT CAPS 1 pill by mouth weekly, for vitamin D deficiency CHOLECALCIFEROL 68643268732 Active Jennifer Chun MD PhD Active ANASTROZOLE 1 MG ORAL TABS Take one by mouth daily ANASTROZOLE 83442779750 Active Jennifer Chun MD PhD Active ZITHROMAX 250 MG TAB 2 po today, then 1 po q days 2-5 AZITHROMYCIN 64369661298 No Longer Active Rikki Harms PA Active MECLIZINE HCL 25 MG TABS 1 prn MECLIZINE HCL 23803114811 No Longer Active Solomon Alamo MD Active CHERATUSSIN AC SYRP prn as directed GUAIFENESIN- CODEINE SYRP 44808923239 No Longer Active Rikki Harms PA Active MULTIVITAMINS TABS 1qd MULTIPLE VITAMIN 85397346485 No Longer Active Rikki Harms PA Active OMEPRAZOLE 20 MG CPDR 1 PO Q D OMEPRAZOLE 76251609752 Active Rikki Harms PA Active ZITHROMAX Z-CAROLYN 250 MG TABS 2x1day,2t5fiun AZITHROMYCIN 84008016621 No Longer Active Jocelyne Lovell COMPUTER METHODS ANALYST Active MULTIVITAMINS TABS 1qd MULTIVITAMINS TABS MULTIPLE VITAMIN Inactive CHERATUSSIN AC SYRP prn as directed CHERATUSSIN AC SYRP GUAIFENESIN-CODEINE SYRP Inactive MECLIZINE HCL 25 MG TABS 1 prn MECLIZINE HCL 25 MG TABS 330381 MECLIZINE HCL Inactive ASPIRIN 81 MG TABS 1qd ASPIRIN 81 MG TABS 148113 ASPIRIN Inactive CLARITIN 10 MG TABS 1prn CLARITIN 10 MG TABS 449545 LORATADINE Inactive ZITHROMAX Z-CAROLYN 250 MG TABS 2x1day,8a3olik ZITHROMAX Z-CAROLYN 250 MG TABS 3999728 AZITHROMYCIN Inactive ZITHROMAX 250 MG TAB 2 po today, then 1 po q days 2-5 ZITHROMAX 250 MG TAB 4588534 AZITHROMYCIN Inactive DOXYCYCLINE HYCLATE 100 MG CAP 1 cap by mouth twice daily DOXYCYCLINE HYCLATE 100 MG CAP 9069987 DOXYCYCLINE HYCLATE Inactive Vital Signs Date Name Value Unit Range Description blood pressure, diastolic - 8462-4 80 mm[Hg] BP rivera blood pressure, systolic - 8480-6 134 mm[Hg] BP sys pulse rate E&M - 8867-4 76 /min Heart rate temperature E&M 98.9 [degF] Body temperature weight E&M - 3141-9 196 [lb_av] Weight Measured blood pressure, diastolic - 8462-4 74 mm[Hg] BP rivera blood pressure, systolic - 8480-6 134 mm[Hg] BP sys pulse rate E&M - 8867-4 84 /min Heart rate temperature E&M 98.7 [degF] Body temperature weight E&M - 3141-9 198 [lb_av] Weight Measured blood pressure, diastolic - 8462-4 72 mm[Hg] BP rivera blood pressure, systolic - 8480-6 137 mm[Hg] BP sys pulse rate E&M - 8867-4 84 /min Heart rate temperature E&M 99.8 [degF] Body temperature weight E&M - 3141-9 199 [lb_av] Weight Measured blood pressure, diastolic - 8462-4 82 mm[Hg] BP rivera blood pressure, systolic - 8480-6 132 mm[Hg] BP sys pulse rate E&M - 8867-4 100 /min Heart rate temperature E&M 98.4 [degF] Body temperature weight E&M - 3141-9 198 [lb_av] Weight Measured blood pressure, diastolic - 8462-4 70 mm[Hg] BP rivera blood pressure, systolic - 8480-6 134 mm[Hg] BP sys pulse rate E&M - 8867-4 80 /min Heart rate temperature E&M 99.6 [degF] Body temperature weight E&M - 3141-9 203.3 [lb_av] Weight Measured blood pressure, diastolic - 8462-4 78 mm[Hg] BP rivera blood pressure, systolic - 8480-6 143 mm[Hg] BP sys pulse rate E&M - 8867-4 84 /min Heart rate temperature E&M 98.1 [degF] Body temperature weight E&M - 3141-9 200.6 [lb_av] Weight Measured blood pressure, diastolic - 8462-4 74 mm[Hg] BP rivera blood pressure, systolic - 8480-6 147 mm[Hg] BP sys pulse rate E&M - 8867-4 73 /min Heart rate temperature E&M 98.6 [degF] Body temperature weight E&M - 3141-9 200 [lb_av] Weight Measured blood pressure, diastolic - 8462-4 82 mm[Hg] BP rivera blood pressure, systolic - 8480-6 134 mm[Hg] BP sys height E&M - 8302-2 61.5 [in_us] Bdy height pulse rate E&M - 8867-4 75 /min Heart rate temperature E&M 99.5 [degF] Body temperature weight E&M - 3141-9 202.50 [lb_av] Weight Measured Diagnostic Results Date Name Value Unit Range Description Lab Report: CBC W/DIFF - Hematology leukocyte count, blood 1.3 10^3/MM^3 10*3/mm3 4.6-10.2 neutrophils as percent of blood leukocytes 1.4 % 42.2-75.2 monocytes as percent of blood leukocytes 25.7 % 1.7-9.3 lymphocytes as percent of blood leukocytes 65.9 % 20.5-51.1 erythrocyte (RBC) count 4.93 10^6/MM^3 10*6/mm3 4.04-5.48 hemoglobin, blood 14.8 g/dL 12.0-16.0 hematocrit, blood 44.3 % 36.0-46.0 mean corpuscular volume, RBC 90 fL 80-97 mean corpuscular hemoglobin, RBC 30.1 pg 27.0-31.2 mean corpuscular hemoglobin concentration, RBC 33.5 G/DL % 31.8- 35.4 red blood cell distribution width 14.5 % 11.6-14.8 platelet count 131 10^3/MM^3 10*3/mm3 730-692 7270/12/12 leukocyte count, blood 28.6 10^3/MM^3 10*3/mm3 4.6-10.2 neutrophils as percent of blood leukocytes 19.0 % 42.2-75.2 monocytes as percent of blood leukocytes 54.1 % 1.7-9.3 lymphocytes as percent of blood leukocytes 20.4 % 20.5-51.1 erythrocyte (RBC) count 5.08 10^6/MM^3 10*6/mm3 4.04-5.48 hemoglobin, blood 15.2 g/dL 12.0-16.0 hematocrit, blood 45.9 % 36.0-46.0 mean corpuscular volume, RBC 90 fL 80-97 mean corpuscular hemoglobin, RBC 29.9 pg 27.0-31.2 mean corpuscular hemoglobin concentration, RBC 33.2 G/DL % 31.8- 35.4 red blood cell distribution width 14.2 % 11.6-14.8 platelet count 237 10^3/MM^3 10*3/mm3 290-714 1647/12/23 hemoglobin, blood 13.2 g/dL 12.0-16.0 hematocrit, blood 39.0 % 36.0-46.0 mean corpuscular volume, RBC 90 fL 80-97 mean corpuscular hemoglobin, RBC 30.5 pg 27.0-31.2 mean corpuscular hemoglobin concentration, RBC 33.9 G/DL % 31.8- 35.4 red blood cell distribution width 14.4 % 11.6-14.8 platelet count 360 10^3/MM^3 10*3/mm3 813-272 1972/12/31 leukocyte count, blood 5.3 10^3/MM^3 10*3/mm3 4.6-10.2 neutrophils as percent of blood leukocytes 8.8 % 42.2-75.2 monocytes as percent of blood leukocytes 43.6 % 1.7-9.3 lymphocytes as percent of blood leukocytes 37.1 % 20.5-51.1 erythrocyte (RBC) count 4.37 10^6/MM^3 10*6/mm3 4.04-5.48 hemoglobin, blood 13.0 g/dL 12.0-16.0 hematocrit, blood 39.4 % 36.0-46.0 mean corpuscular volume, RBC 90 fL 80-97 mean corpuscular hemoglobin, RBC 29.8 pg 27.0-31.2 mean corpuscular hemoglobin concentration, RBC 33.0 G/DL % 31.8- 35.4 red blood cell distribution width 14.9 % 11.6-14.8 platelet count 222 10^3/MM^3 10*3/mm3 953-155 3970/01/07 leukocyte count, blood 11.7 10^3/MM^3 10*3/mm3 4.6-10.2 neutrophils as percent of blood leukocytes 67.9 % 42.2-75.2 monocytes as percent of blood leukocytes 8.8 % 1.7-9.3 lymphocytes as percent of blood leukocytes 21.3 % 20.5-51.1 erythrocyte (RBC) count 4.56 10^6/MM^3 10*6/mm3 4.04-5.48 hemoglobin, blood 13.6 g/dL 12.0-16.0 hematocrit, blood 41.2 % 36.0-46.0 mean corpuscular volume, RBC 90 fL 80-97 mean corpuscular hemoglobin, RBC 29.7 pg 27.0-31.2 mean corpuscular hemoglobin concentration, RBC 32.9 G/DL % 31.8- 35.4 red blood cell distribution width 15.5 % 11.6-14.8 platelet count 191 10^3/MM^3 10*3/mm3 063-293 0519/01/20 leukocyte count, blood 9.8 10^3/MM^3 10*3/mm3 4.6-10.2 neutrophils as percent of blood leukocytes 78.4 % 42.2-75.2 monocytes as percent of blood leukocytes 7.4 % 1.7-9.3 lymphocytes as percent of blood leukocytes 10.0 % 20.5-51.1 erythrocyte (RBC) count 4.32 10^6/MM^3 10*6/mm3 4.04-5.48 hemoglobin, blood 13.0 g/dL 12.0-16.0 hematocrit, blood 39.0 % 36.0-46.0 mean corpuscular volume, RBC 90 fL 80-97 mean corpuscular hemoglobin, RBC 30.0 pg 27.0-31.2 mean corpuscular hemoglobin concentration, RBC 33.3 G/DL % 31.8- 35.4 red blood cell distribution width 15.9 % 11.6-14.8 platelet count 195 10^3/MM^3 10*3/mm3 932-108 6537/01/28 leukocyte count, blood 11.9 10^3/MM^3 10*3/mm3 4.6-10.2 neutrophils as percent of blood leukocytes 53.5 % 42.2-75.2 monocytes as percent of blood leukocytes 22.4 % 1.7-9.3 lymphocytes as percent of blood leukocytes 21.9 % 20.5-51.1 erythrocyte (RBC) count 3.99 10^6/MM^3 10*6/mm3 4.04-5.48 hemoglobin, blood 12.4 g/dL 12.0-16.0 hematocrit, blood 37.0 % 36.0-46.0 mean corpuscular volume, RBC 93 fL 80-97 mean corpuscular hemoglobin, RBC 31.1 pg 27.0-31.2 mean corpuscular hemoglobin concentration, RBC 33.5 G/DL % 31.8- 35.4 red blood cell distribution width 16.4 % 11.6-14.8 platelet count 278 10^3/MM^3 10*3/mm3 963-699 7570/02/04 leukocyte count, blood 8.5 10^3/MM^3 10*3/mm3 4.6-10.2 neutrophils as percent of blood leukocytes 66.7 % 42.2-75.2 monocytes as percent of blood leukocytes 8.2 % 1.7-9.3 lymphocytes as percent of blood leukocytes 23.3 % 20.5-51.1 erythrocyte (RBC) count 3.97 10^6/MM^3 10*6/mm3 4.04-5.48 hemoglobin, blood 12.2 g/dL 12.0-16.0 hematocrit, blood 36.8 % 36.0-46.0 mean corpuscular volume, RBC 93 fL 80-97 mean corpuscular hemoglobin, RBC 30.8 pg 27.0-31.2 mean corpuscular hemoglobin concentration, RBC 33.3 G/DL % 31.8- 35.4 red blood cell distribution width 17.3 % 11.6-14.8 platelet count 326 10^3/MM^3 10*3/mm3 592-701 0148/02/10 leukocyte count, blood 2.3 10^3/MM^3 10*3/mm3 4.6-10.2 neutrophils as percent of blood leukocytes 63.7 % 42.2-75.2 monocytes as percent of blood leukocytes 1.8 % 1.7-9.3 lymphocytes as percent of blood leukocytes 31.7 % 20.5-51.1 erythrocyte (RBC) count 3.83 10^6/MM^3 10*6/mm3 4.04-5.48 hemoglobin, blood 11.9 g/dL 12.0-16.0 hematocrit, blood 35.3 % 36.0-46.0 mean corpuscular volume, RBC 92 fL 80-97 mean corpuscular hemoglobin, RBC 31.1 pg 27.0-31.2 mean corpuscular hemoglobin concentration, RBC 33.8 G/DL % 31.8- 35.4 red blood cell distribution width 18.0 % 11.6-14.8 platelet count 240 10^3/MM^3 10*3/mm3 366-829 0784/02/17 leukocyte count, blood 3.4 10^3/MM^3 10*3/mm3 4.6-10.2 neutrophils as percent of blood leukocytes 20.2 % 42.2-75.2 monocytes as percent of blood leukocytes 31.9 % 1.7-9.3 lymphocytes as percent of blood leukocytes 46.9 % 20.5-51.1 erythrocyte (RBC) count 3.86 10^6/MM^3 10*6/mm3 4.04-5.48 hemoglobin, blood 11.6 g/dL 12.0-16.0 hematocrit, blood 35.2 % 36.0-46.0 mean corpuscular volume, RBC 91 fL 80-97 mean corpuscular hemoglobin, RBC 30.0 pg 27.0-31.2 mean corpuscular hemoglobin concentration, RBC 32.9 G/DL % 31.8- 35.4 red blood cell distribution width 18.8 % 11.6-14.8 platelet count 308 10^3/MM^3 10*3/mm3 396-671 1903/02/25 leukocyte count, blood 6.6 10^3/MM^3 10*3/mm3 4.6-10.2 neutrophils as percent of blood leukocytes 61.9 % 42.2-75.2 monocytes as percent of blood leukocytes 8.9 % 1.7-9.3 lymphocytes as percent of blood leukocytes 27.4 % 20.5-51.1 erythrocyte (RBC) count 4.02 10^6/MM^3 10*6/mm3 4.04-5.48 hemoglobin, blood 12.2 g/dL 12.0-16.0 hematocrit, blood 36.9 % 36.0-46.0 mean corpuscular volume, RBC 92 fL 80-97 mean corpuscular hemoglobin, RBC 30.5 pg 27.0-31.2 mean corpuscular hemoglobin concentration, RBC 33.2 G/DL % 31.8- 35.4 red blood cell distribution width 19.2 % 11.6-14.8 platelet count 433 10^3/MM^3 10*3/mm3 766-449 5096/12/23 erythrocyte (RBC) count 4.35 10^6/MM^3 10*6/mm3 4.04-5.48 lymphocytes as percent of blood leukocytes 30.4 % 20.5-51.1 monocytes as percent of blood leukocytes 8.6 % 1.7-9.3 neutrophils as percent of blood leukocytes 57.3 % 42.2-75.2 leukocyte count, blood 6.9 10^3/MM^3 10*3/mm3 4.6-10.2 Lab Report: CBC W/DIFF, Comp. Metabolic Panel - Chemistry sodium, serum 144 mmol/L 147-024 5950/12/16 potassium, serum 4.5 mmol/L 3.5-5.2 chloride, serum 107 mmol/L 98-107 carbon dioxide, venous blood 31.4 mmol/L 21.0-32.0 blood glucose 104 mg/dL 65-110 urea nitrogen, blood 17 mg/dL 7-18 creatinine, serum 1.10 mg/dL 0.60-1.30 alanine aminotransferase (SGPT), serum 25 U/L 12-78 aspartate aminotransferase (SGOT), serum 24 U/L 15-37 calcium, serum 8.4 mg/dL 8.5-10.1 bilirubin, serum, total 0.20 mg/dL 0.00-1.00 sodium, serum 141 mmol/L 463-286 8591/01/14 potassium, serum 4.9 mmol/L 3.5-5.2 chloride, serum 107 mmol/L 98-107 carbon dioxide, venous blood 28.9 mmol/L 21.0-32.0 blood glucose 100 mg/dL 65-110 urea nitrogen, blood 19 mg/dL 7-18 creatinine, serum 0.90 mg/dL 0.60-1.30 alanine aminotransferase (SGPT), serum 28 U/L 12-78 aspartate aminotransferase (SGOT), serum 24 U/L 15-37 calcium, serum 8.2 mg/dL 8.5-10.1 bilirubin, serum, total 0.40 mg/dL 0.00-1.00 Lab Report: CBC W/DIFF, Comp. Metabolic Panel - Hematology monocytes as percent of blood leukocytes 6.3 % 1.7-9.3 lymphocytes as percent of blood leukocytes 25.5 % 20.5-51.1 erythrocyte (RBC) count 4.29 10^6/MM^3 10*6/mm3 4.04-5.48 hemoglobin, blood 12.7 g/dL 12.0-16.0 hematocrit, blood 38.9 % 36.0-46.0 mean corpuscular volume, RBC 91 fL 80-97 mean corpuscular hemoglobin, RBC 29.6 pg 27.0-31.2 mean corpuscular hemoglobin concentration, RBC 32.7 G/DL % 31.8- 35.4 red blood cell distribution width 15.6 % 11.6-14.8 platelet count 376 10^3/MM^3 10*3/mm3 546-297 4060/01/14 leukocyte count, blood 6.7 10^3/MM^3 10*3/mm3 4.6-10.2 neutrophils as percent of blood leukocytes 66.4 % 42.2-75.2 leukocyte count, blood 19.5 10^3/MM^3 10*3/mm3 4.6-10.2 neutrophils as percent of blood leukocytes 56.5 % 42.2-75.2 monocytes as percent of blood leukocytes 17.0 % 1.7-9.3 lymphocytes as percent of blood leukocytes 23.8 % 20.5-51.1 erythrocyte (RBC) count 4.74 10^6/MM^3 10*6/mm3 4.04-5.48 hemoglobin, blood 14.0 g/dL 12.0-16.0 hematocrit, blood 42.8 % 36.0-46.0 mean corpuscular volume, RBC 90 fL 80-97 mean corpuscular hemoglobin, RBC 29.6 pg 27.0-31.2 mean corpuscular hemoglobin concentration, RBC 32.8 G/DL % 31.8- 35.4 red blood cell distribution width 14.4 % 11.6-14.8 platelet count 239 10^3/MM^3 10*3/mm3 142-424 Lab Report: CBC, Comp. Metabolic Panel, Lipid Panel - Chemistry sodium, serum 140 mmol/L 998-586 6132/07/13 potassium, serum 4.5 mmol/L 3.5-5.2 chloride, serum 106 mmol/L 98-107 carbon dioxide, venous blood 27.7 mmol/L 21.0-32.0 blood glucose 105 mg/dL 65-110 urea nitrogen, blood 14 mg/dL 7-18 creatinine, serum 0.90 mg/dL 0.60-1.30 alanine aminotransferase (SGPT), serum 29 U/L 12-78 aspartate aminotransferase (SGOT), serum 22 U/L 15-37 calcium, serum 9.4 mg/dL 8.5-10.1 bilirubin, serum, total 0.70 mg/dL 0.00-1.00 cholesterol, serum 160 mg/dL 905-187 9306/07/13 triglyceride, serum, fasting 63 mg/dL 30-200 HDL cholesterol, serum 68 mg/dL 32-96 LDL cholesterol, serum 79 mg/dL 0-130 Lab Report: CBC, Comp. Metabolic Panel, Lipid Panel - Hematology leukocyte count, blood 5.0 10^3/MM^3 10*3/mm3 4.6-10.2 erythrocyte (RBC) count 4.79 10^6/MM^3 10*6/mm3 4.04-5.48 hemoglobin, blood 13.9 g/dL 12.0-16.0 hematocrit, blood 42.2 % 36.0-46.0 mean corpuscular volume, RBC 88 fL 80-97 mean corpuscular hemoglobin, RBC 29.1 pg 27.0-31.2 mean corpuscular hemoglobin concentration, RBC 33.0 G/DL % 31.8- 35.4 red blood cell distribution width 15.7 % 11.6-14.8 platelet count 263 10^3/MM^3 10*3/mm3 142-424 Lab Report: Comp. Metabolic Panel - Chemistry sodium, serum 141 mmol/L 911-730 6606/02/10 potassium, serum 5.2 mmol/L 3.5-5.2 chloride, serum 106 mmol/L 98-107 carbon dioxide, venous blood 27.8 mmol/L 21.0-32.0 blood glucose 111 mg/dL 65-110 urea nitrogen, blood 18 mg/dL 7-18 creatinine, serum 0.90 mg/dL 0.60-1.30 alanine aminotransferase (SGPT), serum 29 U/L 12-78 aspartate aminotransferase (SGOT), serum 21 U/L 15-37 calcium, serum 8.3 mg/dL 8.5-10.1 bilirubin, serum, total 0.40 mg/dL 0.00-1.00 Lab Report: VITAMIN D, 25-HYDROXY/67214 - Chemistry vitamin D 25-hydroxy, serum 24 ng/mL 30-100 Encounters Code Encounter Date Provider Facility CPT-01990 Level 2 Est. Patient 09:07:32 CDT Marta Viramontes APRN Formerly named [facility] CPT-20593 Level 4 Est. Patient 11:55:00 CDT Rikki GRANADOS Formerly named [facility] CPT-69400 Level 3 Est. Patient 13:25:16 CDT Jennifer Chun MD PhD [facility] CPT-28294 Level 3 Est. Patient 17:31:22 CDT Solomon Alamo MD [facility] CPT-00519 Level 3 Est. Patient 08:02:14 CDT Solomon Alamo MD [facility] CPT-40080 Level 3 Est. Patient 17:23:53 CDT Rikki GRANADOS Formerly named [facility] CPT-83113 Level 3 Est. Patient 11:22:41 CDT Darryn GRANADOS Formerly named [facility] Procedures Code Procedure Name Date Entry Date Standard Description CPT-I/D I/D Abscess 09:43:13 CDT CPT-82919 Venipuncture Draw Fee 08:16:46 [employer] CPT-88212 Venipuncture Draw Fee 08:18:55 [employer] CPT-18091 Venipuncture Draw Fee 08:31:18 [employer] CPT-50729 Venipuncture Draw Fee 11:42:52 [employer] CPT-20606 Venipuncture Draw Fee 13:26:37 [employer] CPT-12315 Venipuncture Draw Fee 09:23:38 [employer] CPT-000 Give Appropriate Tetanus Booster 10:23:50 CDT CPT-73453 Bone Density 08:28:45 CDT CPT-56155 Bone Density 11:35:15 CDT CPT-PV Prev. Care Visit 12:19:00 CDT CPT-24160 Venipuncture Draw Fee 15:02:58 CDT
--- OUTSIDE RECORDS SUMMARY | 2018-01-19 06:49 | XMS REPORT | Clinical Summary ---
Author Author Admin, E Organization [facility] [employer] Address Unknown Phone Unavailable Allergies, Adverse Reactions, Alerts Allergy Name Reaction Description Start Date Severity Status Provider SULFA facial swelling Critical Active Jocelyne Naff FISH EGG PACKER Conditions or Problems Problem Name Problem Code Onset Date Status Entry Date Provider Comment Standard Description Annotate G E R D 530.81 Active Jocelyne Naff FISH EGG PACKER Esophageal reflux FH COLON CANCER V16.0 Active Jocelyne Naff FISH EGG PACKER Family history of malignant neoplasm of gastrointestinal [...] Ingrown toenail, left 703.0 Resolved Marta Yokum COMPUTATIONAL PHYSICIST Ingrowing nail cellulitis, finger, right 681.00 Active Marta Yokum COMPUTATIONAL PHYSICIST Cellulitis and abscess of finger, unspecified Cough 786.2 Active Marta Yokum COMPUTATIONAL PHYSICIST Cough Breast microcalcification ICD-793.81 Inactive Jennifer Chun MD PhD Abnormal Mammogram ICD-793.80 Inactive Jennifer Chun MD PhD Soft tissue infection ICD-528.9 Inactive Rikki Stearns PA Abscess, skin ICD-682.9 Inactive Rikki Stearns DARWIN Cellulitis, 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 Rikki Stearns DARWIN Rash ICD-782.1 Inactive Rikki Stearns DARWIN Upper respiratory infection, acute ICD-465.9 Inactive Rikki Stearns DARWIN Chemotherapy ICD-V58.11 Inactive Rikki Stearns DARWIN Cough, chronic ICD-786.2 Inactive Rikki tSearns DARWIN Ingrown toenail, left ICD-703.0 Inactive Martacarlos Maganaum COMPUTATIONAL PHYSICIST Medication List Medication Instructions Start Date Stop Date Generic Name NDC Status Provider Patient Instruction AUGMENTIN 875-125 MG TAB 1 po BID x 10 days AMOXICILLIN-POT CLAVULANATE 61765102165 No Longer Active Marta Yokum COMPUTATIONAL PHYSICIST Active MEDROL (CAROLYN) 4 MG TABS 6 tabs on day 1, 5 tabs on day 2, 4 tabs on day 3, 3 tabs on day 4, 2 tabs on day 5, 1 tab on day 6 METHYLPREDNISOLONE 97859016195 No Longer Active Marta Yokum COMPUTATIONAL PHYSICIST Active TESSALON PERLES 100 MG CAP 1 to 2 tablets by mouth 3 times daily as needed for cough BENZONATATE 23181790613 Active Marta Yokum COMPUTATIONAL PHYSICIST Active TUSSIONEX PENNKINETIC ER 10-8 MG/5ML LQCR 5ml po q12hr PRN Cough HYDROCOD POLST-CHLORPHEN POLST 05616055570 Active Marta Yokum COMPUTATIONAL PHYSICIST Active KEFLEX 500 MG CAP 1 po qid CEPHALEXIN 02686301364 No Longer Active Marta Yokum COMPUTATIONAL PHYSICIST Active B COMPLEX 50 ORAL CR-TABS B COMPLEX VITAMINS 34630483422 Active Marta Viramontes COMPUTATIONAL PHYSICIST Active TUSSIONEX PENNKINETIC ER 10-8 MG/5ML LQCR 5ml po q12hr PRN Cough HYDROCOD POLST-CHLORPHEN POLST 06883094850 No Longer Active Marta Viramontes APRN Active VITAMIN D3 35148 UNIT CAPS 1 qWeek x 4 months for vitamin D deficiency 04/09 CHOLECALCIFEROL 35631088631 Active Marta Maganaum COMPUTATIONAL PHYSICIST Active CEPHALEXIN 500 MG ORAL CAPS Take one four times a day CEPHALEXIN 94379474966 No Longer Active Marta Viramontes COMPUTATIONAL PHYSICIST Active BIOTIN 1000 MCG ORAL TABS Take one daily BIOTIN 85669842950 Active Rikki Harms PA Active VITAMIN C 500 MG ORAL CAPS Take one daily ASCORBIC ACID 09640512072 Active Rikki Harms PA Active BENZONATATE 200 MG ORAL CAPS One capsule tid. BENZONATATE 67113904180 No Longer Active Rikki Harms PA Active FLONASE ALLERGY RELIEF 50 MCG/ACT NASAL SUSP spray twice in each nostril one time daily FLUTICASONE PROPIONATE 81629608167 No Longer Active Rikki Harms PA Active TUSSIONEX PENNKINETIC ER 10-8 MG/5ML LQCR 5ml po q12hr PRN Cough HYDROCOD POLST-CHLORPHEN POLST 12625187541 No Longer Active Rikki Harms PA Active NIACIN ER 500 MG ORAL CR-TABS Take one twice daily NIACIN 55212908019 Active Rikki Harms PA Active ALBUTEROL SULFATE 0.083 % NEBU SOLN one vial per nebulizer every 4-6 hours as needed ALBUTEROL SULFATE 42310614841 No Longer Active Rikki Harms PA Active MEDROL (CAROLYN) 4 MG TABS 6 tabs on day 1, 5 tabs on day 2, 4 tabs on day 3, 3 tabs on day 4, 2 tabs on day 5, 1 tab on day 6 METHYLPREDNISOLONE 12063746406 No Longer Active Rikki Harms PA Active LEVAQUIN 750 MG TABS 1 po qd x 7 days LEVOFLOXACIN 98842853815 No Longer Active Rikki Harms PA Active LEVAQUIN 500 MG ORAL TABS Take one tablet daily LEVOFLOXACIN 29115853917 No Longer Active Rikki Harms PA Active PROAIR HFA 108 (90 BASE) MCG/ACT AERS 2 puffs four times a day as needed 2014 ALBUTEROL SULFATE 25128356418 Active Marta Yokum COMPUTATIONAL PHYSICIST Active LEVAQUIN 500 MG TAB 1 tablet by mouth daily LEVOFLOXACIN 22694770854 No Longer Active Marta Yokum COMPUTATIONAL PHYSICIST Active CHERATUSSIN AC 100-10 MG/5ML SYRP 1 tsp by mouth every 4 hours as needed for cough GUAIFENESIN-CODEINE 88671437993 No Longer Active Rikki Harms PA Active MUPIROCIN 2 % EXT OINT Use in each nostril in am and pm MUPIROCIN 79354336260 No Longer Active Rikki Harms PA Active DOXYCYCLINE HYCLATE 100 MG ORAL CAPS Take one bid DOXYCYCLINE HYCLATE 73406117859 No Longer Active Rikki Harms PA Active CLARITIN 10 MG TABS 1prn LORATADINE 11806749790 No Longer Active Jocelyne Naff FISH EGG PACKER Active ASPIRIN 81 MG TABS 1qd ASPIRIN 80327974038 No Longer Active Jocelyne Naff FISH EGG PACKER Active DOXYCYCLINE HYCLATE 100 MG CAP 1 cap by mouth twice daily DOXYCYCLINE HYCLATE 67357269530 No Longer Active Rikki Harms PA Active VITAMIN D3 83151 UNIT CAPS 1 pill by mouth weekly, for vitamin D deficiency CHOLECALCIFEROL 59096972782 No Longer Active Jennifer Chun MD PhD Active ANASTROZOLE 1 MG ORAL TABS Take one by mouth daily ANASTROZOLE 81734439068 Active Jennifer Chun MD PhD Active ZITHROMAX 250 MG TAB 2 po today, then 1 po q days 2-5 AZITHROMYCIN 65795263520 No Longer Active Rikki Harms PA Active MECLIZINE HCL 25 MG TABS 1 prn MECLIZINE HCL 05884852009 No Longer Active Solomon Alamo MD Active CHERATUSSIN AC SYRP prn as directed GUAIFENESIN- CODEINE SYRP 02292487039 No Longer Active Rikki Harms PA Active MULTIVITAMINS TABS 1qd MULTIPLE VITAMIN 33801585267 No Longer Active Rikki Harms PA Active OMEPRAZOLE 20 MG CPDR 1 PO Q D OMEPRAZOLE 67576009471 Active Jocelyne Naff FISH EGG PACKER Active ZITHROMAX Z-CAROLYN 250 MG TABS 2x1day,1x6lxcg AZITHROMYCIN 08886729693 No Longer Active Jocelyne Naff FISH EGG PACKER Active MULTIVITAMINS TABS 1qd MULTIVITAMINS TABS MULTIPLE VITAMIN Inactive CHERATUSSIN AC SYRP prn as directed CHERATUSSIN AC SYRP GUAIFENESIN-CODEINE SYRP Inactive MECLIZINE HCL 25 MG TABS 1 prn MECLIZINE HCL 25 MG TABS 415709 MECLIZINE HCL Inactive ASPIRIN 81 MG TABS 1qd ASPIRIN 81 MG TABS ASPIRIN Inactive CLARITIN 10 MG TABS 1prn CLARITIN 10 MG TABS 974624 LORATADINE Inactive DOXYCYCLINE HYCLATE 100 MG ORAL CAPS Take one bid DOXYCYCLINE HYCLATE 100 MG ORAL CAPS 2483065 DOXYCYCLINE HYCLATE Inactive MUPIROCIN 2 % EXT OINT Use in each nostril in am and pm MUPIROCIN 2 % EXT OINT 974833 MUPIROCIN Inactive CHERATUSSIN AC 100-10 MG/5ML SYRP 1 tsp by mouth every 4 hours as needed for cough CHERATUSSIN AC 100-10 MG/5ML SYRP 843339 GUAIFENESIN-CODEINE Inactive LEVAQUIN 500 MG TAB 1 tablet by mouth daily LEVAQUIN 500 MG TAB 974234 LEVOFLOXACIN Inactive LEVAQUIN 500 MG ORAL TABS Take one tablet daily LEVAQUIN 500 MG ORAL TABS 372806 LEVOFLOXACIN Inactive LEVAQUIN 750 MG TABS 1 po qd x 7 days LEVAQUIN 750 MG TABS 111228 LEVOFLOXACIN Inactive ALBUTEROL SULFATE 0.083 % NEBU SOLN one vial per nebulizer every 4-6 hours as needed ALBUTEROL SULFATE 0.083 % NEBU SOLN 930224 ALBUTEROL SULFATE Inactive TUSSIONEX PENNKINETIC ER 10-8 MG/5ML LQCR 5ml po q12hr PRN Cough TUSSIONEX PENNKINETIC ER 10-8 MG/5ML LQCR HYDROCOD POLST- CHLORPHEN POLST Inactive FLONASE ALLERGY RELIEF 50 MCG/ACT NASAL SUSP spray twice in each nostril one time daily FLONASE ALLERGY RELIEF 50 MCG/ACT NASAL SUSP 8406852 FLUTICASONE PROPIONATE Inactive BENZONATATE 200 MG ORAL CAPS One capsule tid. BENZONATATE 200 MG ORAL CAPS 029453 BENZONATATE Inactive CEPHALEXIN 500 MG ORAL CAPS Take one four times a day CEPHALEXIN 500 MG ORAL CAPS 112539 CEPHALEXIN Inactive TUSSIONEX PENNKINETIC ER 10-8 MG/5ML LQCR 5ml po q12hr PRN Cough TUSSIONEX PENNKINETIC ER 10-8 MG/5ML LQCR HYDROCOD POLST- CHLORPHEN POLST Inactive ZITHROMAX Z-CAROLYN 250 MG TABS 2x1day,4r4rhkp ZITHROMAX Z-CAROLYN 250 MG TABS 3282365 AZITHROMYCIN Inactive ZITHROMAX 250 MG TAB 2 po today, then 1 po q days 2-5 ZITHROMAX 250 MG TAB 5857504 AZITHROMYCIN Inactive VITAMIN D3 95669 UNIT CAPS 1 pill by mouth weekly, for vitamin D deficiency VITAMIN D3 77654 UNIT CAPS CHOLECALCIFEROL Inactive DOXYCYCLINE HYCLATE 100 MG CAP 1 cap by mouth twice daily DOXYCYCLINE HYCLATE 100 MG CAP 3051741 DOXYCYCLINE HYCLATE Inactive MEDROL (CAROLYN) 4 MG TABS 6 tabs on day 1, 5 tabs on day 2, 4 tabs on day 3, 3 tabs on day 4, 2 tabs on day 5, 1 tab on day 6 MEDROL ( CAROLYN) 4 MG TABS 282939 METHYLPREDNISOLONE Inactive KEFLEX 500 MG CAP 1 po qid KEFLEX 500 MG CAP 612310 CEPHALEXIN Inactive MEDROL (CAROLYN) 4 MG TABS 6 tabs on day 1, 5 tabs on day 2, 4 tabs on day 3, 3 tabs on day 4, 2 tabs on day 5, 1 tab on day 6 MEDROL ( CAROLYN) 4 MG TABS 595963 METHYLPREDNISOLONE Inactive AUGMENTIN 875-125 MG TAB 1 po BID x 10 days AUGMENTIN 875-125 MG TAB 974542 AMOXICILLIN-POT CLAVULANATE Inactive Vital Signs Date Name [...] E&M - 3141-9 202.5 [lb_av] Weight Measured Diagnostic Results Date Name Value Unit Range Description Lab Report: Basic Metabolic Panel - Chemistry sodium, serum 142 mmol/L 633-728 2843/07/25 potassium, serum 4.0 mmol/L 3.5-5.2 chloride, serum 107 mmol/L 98-107 carbon dioxide, venous blood 31.6 mmol/L 21.0-32.0 blood glucose 108 mg/dL 65-110 calcium, serum 9.2 mg/dL 8.5-10.1 urea nitrogen, blood 20 mg/dL 7-18 creatinine, serum 0.92 mg/dL 0.55-1.30 sodium, serum 141 mmol/L 163-659 8452/11/11 potassium, serum 4.2 mmol/L 3.5-5.2 chloride, serum 106 mmol/L 98-107 carbon dioxide, venous blood 29.1 mmol/L 21.0-32.0 blood glucose 95 mg/dL 65-110 calcium, serum 8.6 mg/dL 8.5-10.1 urea nitrogen, blood 23 mg/dL 7-18 creatinine, serum 0.83 mg/dL 0.55-1.30 Lab Report: Lipid Panel, Thyroid Stimulating Hormone (L) - Chemistry cholesterol, serum 177 mg/dL 101-334 2892/10/31 triglyceride, serum, fasting 64 mg/dL 30-200 HDL cholesterol, serum 77 mg/dL 32-96 LDL cholesterol, serum 87 mg/dL 0-130 TSH 2.13 m[iU]/mL 0.36-3.74 Lab Report: VITAMIN D, 25-HYDROXY/37901 - Chemistry vitamin D 25-hydroxy, serum 25 ng/mL 30-100 Encounters Code Encounter Date Provider Facility CPT-82090 Level 3 Est. Patient 16:07:34 CDT Marta Viramontes [facility] CPT-22185 Level 3 Est. Patient 15:39:01 CDT Marta Viramontes [facility] CPT-20465 Level 4 Est. Patient 17:31:07 CDT Marta Viramontes [facility] CPT-76867 Level 3 Est. Patient 05:11:40 CDT Rikki GRANADOS [facility]-13631 Level 2 Est. Patient 14:30:43 BEE RANCHER Marta Viramontes [facility] CPT-55427 Level 4 Est. Patient 09:14:36 BEE RANCHER Rikki GRANADOS [facility] CPT-93855 Level 2 Est. Patient 09:07:32 CDT Marta Viramontes [facility] CPT-27744 Level 4 Est. Patient 11:55:00 CDT Rikki Stearns [facility] CPT-45064 Level 3 Est. Patient 13:25:16 CDT Jennifer Chun MD PhD [facility] CPT-24876 Level 3 Est. Patient 17:31:22 CDT Solomon Alamo MD [facility] CPT-02008 Level 3 Est. Patient 08:02:14 CDT Solomon Alamo MD [facility] CPT-63678 Level 3 Est. Patient 17:23:53 CDT Rikki GRANADOS [facility] CPT-99666 Level 3 Est. Patient 11:22:41 CDT Darryn Hearn PA [facility] Procedures Code Procedure Name Date Entry Date Standard Description CPT-36675 Venipuncture Draw Fee 12:43:48 BEE RANCHER CPT-51729 BMP - LAB USE ONLY 10:32:33 BEE RANCHER CPT-67014 Venipuncture Draw Fee 10:32:33 BEE RANCHER CPT-64479 Magnesium - LAB USE ONLY 09:54:30 CDT CPT-37257 TSH - LAB USE ONLY 09:54:30 CDT CPT-14420 Lipid - LAB USE ONLY 09:54:30 CDT CPT-59115 Venipuncture Draw Fee 09:54:29 CDT CPT-68489 Venipuncture Draw Fee 18:27:04 CDT CPT-68741 Chest 2V Frontal and Lat 10:57:00 BEE RANCHER CPT-93866 Venipuncture Draw Fee 10:56:59 BEE RANCHER CPT-64008 Venipuncture Draw Fee 09:22:28 BEE RANCHER CPT-49409 Chest 2V Frontal and Lat 09:22:27 BEE RANCHER CPT-I/D I/D Abscess 09:43:13 CDT CPT-13707 Venipuncture Draw Fee 08:16:46 BEE RANCHER CPT-89901 Venipuncture Draw Fee 08:18:55 BEE RANCHER CPT-78789 Venipuncture Draw Fee 08:31:18 BEE RANCHER CPT-03225 Venipuncture Draw Fee 11:42:52 BEE RANCHER CPT-04568 Venipuncture Draw Fee 13:26:37 BEE RANCHER CPT-23064 Venipuncture Draw Fee 09:23:38 BEE RANCHER CPT-000 Give Appropriate Tetanus Booster 10:23:50 CDT CPT-75735 Bone Density 08:28:45 CDT CPT-15562 Bone Density 11:35:15 CDT CPT-PV Prev. Care Visit 12:19:00 CDT CPT-23659 Venipuncture Draw Fee 15:02:58 CDT
--- OUTSIDE RECORDS SUMMARY | 2018-01-19 06:50 | XMS REPORT | Clinical Summary ---
Author Author Admin, E Organization [facility] Address Unknown Phone Unavailable Allergies, Adverse Reactions, Alerts Allergy Name Reaction Description Start Date Severity Status Provider SULFA facial swelling Critical Active Jocelyne Naff CLOSING MANAGER Conditions or Problems Problem Name Problem Code Onset Date Status Entry Date Provider Comment Standard Description Annotate G E R D 530.81 Active Jocelyne Naff CLOSING MANAGER Esophageal reflux FH COLON CANCER V16.0 Active Jocelyne Naff CLOSING MANAGER Family history of malignant neoplasm of gastrointestinal [...] deficiency Soft tissue infection 528.9 Active Rikki GRANADOS Other and unspecified diseases of the oral soft tissues Abscess, skin 682.9 Active Darryn GRANADOS Cellulitis and abscess of unspecified sites Cellulitis, 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 Rikki GRANADOS Cellulitis and abscess of unspecified sites Rash 782.1 Active Marta Viramontes APRN Rash and other nonspecific skin eruption Adenocarcinoma, fallopian tube, 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 Kailee Rachel RMA Malignant neoplasm of fallopian tube Adenocarcinoma, right breast 174.9 Active Alfreda Anthony RMA Malignant neoplasm of breast (female), unspecified Female breast cancer, right upper-outer quadrant 174.4 Active Kailee Rachel RMA Malignant neoplasm of upper-outer quadrant of female breast Upper respiratory infection, acute 465.9 Active Rikki GRANADOS Acute upper respiratory infections of unspecified site Chemotherapy V58.11 Active Rikki GRANADOS Encounter for antineoplastic chemotherapy Abnormal Mammogram ICD-793.80 Inactive Jennifer Chun MD PhD Breast microcalcification ICD-793.81 Inactive Jennifer Chun MD PhD Medication List Medication Instructions Start Date Stop Date Generic Name NDC Status Provider Patient Instruction PROAIR HFA 108 (90 BASE) MCG/ACT AERS 2 puffs four times a day as needed 2014 ALBUTEROL SULFATE 90001522275 Active Marta Yokum TECHNICAL SALES CONSULTANT Active TUSSIONEX PENNKINETIC ER 10-8 MG/5ML LQCR 5ml po q12hr PRN Cough HYDROCOD POLST-CHLORPHEN POLST 47227917277 Active Marta Yokum TECHNICAL SALES CONSULTANT Active LEVAQUIN 750 MG TABS 1 po qd x 7 days LEVOFLOXACIN 94242348213 Active Marta Viramontes TECHNICAL SALES CONSULTANT Active FLONASE ALLERGY RELIEF 50 MCG/ACT NASAL SUSP spray twice in each nostril one time daily FLUTICASONE PROPIONATE 28686896027 Active Marta Chinoum TECHNICAL SALES CONSULTANT Active LEVAQUIN 500 MG TAB 1 tablet by mouth daily LEVOFLOXACIN 10610383160 No Longer Active Marta Tenkum TECHNICAL SALES CONSULTANT Active BENZONATATE 200 MG ORAL CAPS One capsule tid. BENZONATATE 17690453470 Active Marta Tenkum TECHNICAL SALES CONSULTANT Active CHERATUSSIN AC 100-10 MG/5ML SYRP 1 tsp by mouth every 4 hours as needed for cough GUAIFENESIN-CODEINE 16036395543 No Longer Active Rikki Harms PA Active MUPIROCIN 2 % EXT OINT Use in each nostril in am and pm MUPIROCIN 74820730327 No Longer Active Rikki Harms PA Active DOXYCYCLINE HYCLATE 100 MG ORAL CAPS Take one bid DOXYCYCLINE HYCLATE 66396292748 No Longer Active Rikki Harms PA Active CLARITIN 10 MG TABS 1prn LORATADINE 70646956239 No Longer Active Jocelyne Naff CLOSING MANAGER Active ASPIRIN 81 MG TABS 1qd ASPIRIN 26167150876 No Longer Active Jocelyne Naff CLOSING MANAGER Active DOXYCYCLINE HYCLATE 100 MG CAP 1 cap by mouth twice daily DOXYCYCLINE HYCLATE 30436605249 No Longer Active Rikki Harms PA Active VITAMIN D3 36572 UNIT CAPS 1 pill by mouth weekly, for vitamin D deficiency CHOLECALCIFEROL 11581466135 No Longer Active Jennifer Chun MD PhD Active ANASTROZOLE 1 MG ORAL TABS Take one by mouth daily ANASTROZOLE 25583790880 Active Jennifer Chun MD PhD Active ZITHROMAX 250 MG TAB 2 po today, then 1 po q days 2-5 AZITHROMYCIN 37858135278 No Longer Active Rikki Harms PA Active MECLIZINE HCL 25 MG TABS 1 prn MECLIZINE HCL 47568641175 No Longer Active Solomon Alamo MD Active CHERATUSSIN AC SYRP prn as directed GUAIFENESIN- CODEINE SYRP 23401574203 No Longer Active Rikki Harms PA Active MULTIVITAMINS TABS 1qd MULTIPLE VITAMIN 68461254737 No Longer Active Rikki Harms PA Active OMEPRAZOLE 20 MG CPDR 1 PO Q D OMEPRAZOLE 29287013830 Active Marta Yokum TECHNICAL SALES CONSULTANT Active ZITHROMAX Z-CAROLYN 250 MG TABS 2x1day,2u0khsv AZITHROMYCIN 41991570621 No Longer Active Jocelyne Lovell CLOSING MANAGER Active MULTIVITAMINS TABS 1qd MULTIVITAMINS TABS MULTIPLE VITAMIN Inactive CHERATUSSIN AC SYRP prn as directed CHERATUSSIN AC SYRP GUAIFENESIN-CODEINE SYRP Inactive MECLIZINE HCL 25 MG TABS 1 prn MECLIZINE HCL 25 MG TABS 178915 MECLIZINE HCL Inactive ASPIRIN 81 MG TABS 1qd ASPIRIN 81 MG TABS 309307 ASPIRIN Inactive CLARITIN 10 MG TABS 1prn CLARITIN 10 MG TABS 500874 LORATADINE Inactive DOXYCYCLINE HYCLATE 100 MG ORAL CAPS Take one bid DOXYCYCLINE HYCLATE 100 MG ORAL CAPS 7571063 DOXYCYCLINE HYCLATE Inactive MUPIROCIN 2 % EXT OINT Use in each nostril in am and pm MUPIROCIN 2 % EXT OINT 286877 MUPIROCIN Inactive CHERATUSSIN AC 100-10 MG/5ML SYRP 1 tsp by mouth every 4 hours as needed for cough CHERATUSSIN AC 100-10 MG/5ML SYRP 200986 GUAIFENESIN-CODEINE Inactive LEVAQUIN 500 MG TAB 1 tablet by mouth daily LEVAQUIN 500 MG TAB 562120 LEVOFLOXACIN Inactive ZITHROMAX Z-CAROLYN 250 MG TABS 2x1day,3h9bjvw ZITHROMAX Z-CAROLYN 250 MG TABS 5955380 AZITHROMYCIN Inactive ZITHROMAX 250 MG TAB 2 po today, then 1 po q days 2-5 ZITHROMAX 250 MG TAB 1192373 AZITHROMYCIN Inactive VITAMIN D3 35189 UNIT CAPS 1 pill by mouth weekly, for vitamin D deficiency VITAMIN D3 56594 UNIT CAPS CHOLECALCIFEROL Inactive DOXYCYCLINE HYCLATE 100 MG CAP 1 cap by mouth twice daily DOXYCYCLINE HYCLATE 100 MG CAP 4211889 DOXYCYCLINE HYCLATE Inactive Vital Signs Date Name Value Unit Range Description blood pressure, diastolic - 8462-4 70 mm[Hg] BP rivera blood pressure, systolic - 8480-6 120 mm[Hg] BP sys pulse rate E&M - 8867-4 80 /min Heart rate temperature E&M 99 [degF] Body temperature weight E&M - 3141-9 193 [lb_av] Weight Measured blood pressure, diastolic - [...] E&M - 3141-9 203.3 [lb_av] Weight Measured Diagnostic Results Date Name Value Unit Range Description Lab Report: CBC W/DIFF - Hematology leukocyte count, blood 5.3 10^3/MM^3 10*3/mm3 4.6-10.2 [...] % 11.6-14.8 platelet count 222 10^3/MM^3 10*3/mm3 500-170 4471/01/07 leukocyte count, blood 11.7 10^3/MM^3 10*3/mm3 4.6-10.2 [...] % 11.6-14.8 platelet count 191 10^3/MM^3 10*3/mm3 787-748 2662/01/20 leukocyte count, blood 9.8 10^3/MM^3 10*3/mm3 4.6-10.2 [...] % 11.6-14.8 platelet count 195 10^3/MM^3 10*3/mm3 464-488 4276/01/28 leukocyte count, blood 11.9 10^3/MM^3 10*3/mm3 4.6-10.2 [...] % 11.6-14.8 platelet count 278 10^3/MM^3 10*3/mm3 810-355 3535/02/04 leukocyte count, blood 8.5 10^3/MM^3 10*3/mm3 4.6-10.2 [...] % 11.6-14.8 platelet count 326 10^3/MM^3 10*3/mm3 248-779 1027/02/10 leukocyte count, blood 2.3 10^3/MM^3 10*3/mm3 4.6-10.2 [...] % 11.6-14.8 platelet count 240 10^3/MM^3 10*3/mm3 236-597 7839/02/17 leukocyte count, blood 3.4 10^3/MM^3 10*3/mm3 4.6-10.2 [...] % 11.6-14.8 platelet count 308 10^3/MM^3 10*3/mm3 984-029 0469/02/25 leukocyte count, blood 6.6 10^3/MM^3 10*3/mm3 4.6-10.2 [...] % 11.6-14.8 platelet count 433 10^3/MM^3 10*3/mm3 285-974 9175/11/18 leukocyte count, blood 8.5 10^3/MM^3 10*3/mm3 4.6-10.2 [...] % 11.6-14.8 platelet count 143 10^3/MM^3 10*3/mm3 115-848 4580/11/25 leukocyte count, blood 2.1 10^3/MM^3 10*3/mm3 4.6-10.2 [...] % 11.6-14.8 platelet count 139 10^3/MM^3 10*3/mm3 223-727 7001/12/02 leukocyte count, blood 6.7 10^3/MM^3 10*3/mm3 4.6-10.2 [...] % 11.6-14.8 platelet count 258 10^3/MM^3 10*3/mm3 235-600 5729/12/09 leukocyte count, blood 5.3 10^3/MM^3 10*3/mm3 4.6-10.2 [...] % 11.6-14.8 platelet count 240 10^3/MM^3 10*3/mm3 335-092 1443/12/16 leukocyte count, blood 3.2 10^3/MM^3 10*3/mm3 4.6-10.2 [...] % 11.6-14.8 platelet count 158 10^3/MM^3 10*3/mm3 124-119 2352/12/18 leukocyte count, blood 8.8 10^3/MM^3 10*3/mm3 4.6-10.2 [...] % 11.6-14.8 platelet count 207 10^3/MM^3 10*3/mm3 523-355 7251/12/23 leukocyte count, blood 6.2 10^3/MM^3 10*3/mm3 4.6-10.2 [...] % 11.6-14.8 platelet count 183 10^3/MM^3 10*3/mm3 374-317 6442/11/11 leukocyte count, blood 2.0 10^3/MM^3 10*3/mm3 4.6-10.2 [...] % 11.6-14.8 platelet count 203 10^3/MM^3 10*3/mm3 665-302 1069/12/30 leukocyte count, blood 5.2 10^3/MM^3 10*3/mm3 4.6-10.2 [...] Panel - Chemistry sodium, serum 138 mmol/L 995-903 8445/11/04 carbon dioxide, venous blood 27.7 mmol/L 21.0-32.0 potassium, serum 4.9 mmol/L 3.5-5.2 chloride, serum 104 mmol/L 98-107 blood glucose 92 mg/dL 65-110 urea nitrogen, blood 24 mg/dL 7-18 creatinine, serum 0.95 mg/dL 0.55-1.30 alanine aminotransferase (SGPT), serum 34 U/L -78 aspartate aminotransferase (SGOT), serum 23 U/L 15-37 calcium, serum 8.9 mg/dL 8.5-10.1 bilirubin, serum, total 0.70 mg/dL 0.00-1.00 sodium, serum 141 mmol/L 749-045 8529/01/14 potassium, serum 4.9 mmol/L 3.5-5.2 chloride, serum 107 mmol/L 98-107 carbon dioxide, venous blood 28.9 mmol/L 21.0-32.0 blood glucose 100 mg/dL 65-110 urea nitrogen, blood 19 mg/dL 7-18 creatinine, serum 0.90 mg/dL 0.60-1.30 alanine aminotransferase (SGPT), serum 28 U/L -78 aspartate aminotransferase (SGOT), serum 24 U/L 15-37 calcium, serum 8.2 mg/dL 8.5-10.1 bilirubin, serum, total 0.40 mg/dL 0.00-1.00 Lab Report: CBC W/DIFF, Comp. Metabolic Panel - Hematology leukocyte count, blood 3.8 10^3/MM^3 10*3/mm3 4.6-10.2 [...] % 11.6-14.8 platelet count 216 10^3/MM^3 10*3/mm3 569-738 3431/01/14 leukocyte count, blood 6.7 10^3/MM^3 10*3/mm3 4.6-10.2 neutrophils as percent of blood leukocytes 66.4 % 42.2-75.2 monocytes as percent of blood leukocytes 6.3 [...] % 11.6-14.8 platelet count 376 10^3/MM^3 10*3/mm3 142-424 Lab Report: CBC, Comp. Metabolic Panel, Lipid Panel - Chemistry sodium, serum 140 mmol/L 209-914 7453/07/13 potassium, serum 4.5 mmol/L 3.5-5.2 chloride, serum 106 mmol/L 98-107 carbon dioxide, venous blood 27.7 mmol/L 21.0-32.0 blood glucose 105 mg/dL 65-110 urea nitrogen, blood 14 mg/dL 7-18 creatinine, serum 0.90 mg/dL 0.60-1.30 alanine aminotransferase (SGPT), serum 29 U/L 12-78 aspartate aminotransferase (SGOT), serum 22 U/L 15-37 calcium, serum 9.4 mg/dL 8.5-10.1 bilirubin, serum, total 0.70 mg/dL 0.00-1.00 cholesterol, serum 160 mg/dL 105-179 1405/07/13 triglyceride, serum, fasting 63 mg/dL 30-200 HDL [...] Panel - Chemistry sodium, serum 141 mmol/L 874-059 3859/02/10 potassium, serum 5.2 mmol/L 3.5-5.2 chloride, serum 106 mmol/L 98-107 carbon dioxide, venous blood 27.8 mmol/L 21.0-32.0 blood glucose 111 mg/dL 65-110 urea nitrogen, blood 18 mg/dL 7-18 creatinine, serum 0.90 mg/dL 0.60-1.30 alanine aminotransferase (SGPT), serum 29 U/L -78 aspartate aminotransferase (SGOT), serum 21 U/L 15-37 calcium, serum 8.3 mg/dL 8.5-10.1 bilirubin, serum, total 0.40 mg/dL 0.00-1.00 sodium, serum 143 mmol/L 971-406 4199/12/23 carbon dioxide, venous blood 24.6 mmol/L 21.0-32.0 potassium, serum 4.1 mmol/L 3.5-5.2 chloride, serum 107 mmol/L 98-107 blood glucose 98 mg/dL 65-110 urea nitrogen, blood 22 mg/dL 7-18 creatinine, serum 0.77 mg/dL 0.55-1.30 alanine aminotransferase (SGPT), serum 28 U/L aspartate aminotransferase (SGOT), serum 20 U/L 15-37 calcium, serum 8.6 mg/dL 8.5-10.1 bilirubin, serum, total 0.30 mg/dL 0.00-1.00 sodium, serum 142 mmol/L 291-311 2390/12/09 carbon dioxide, venous blood 28.5 mmol/L 21.0-32.0 potassium, serum 5.0 mmol/L 3.5-5.2 chloride, serum 109 mmol/L 98-107 blood glucose 91 mg/dL 65-110 urea nitrogen, blood 27 mg/dL 7-18 creatinine, serum 0.88 mg/dL 0.55-1.30 alanine aminotransferase (SGPT), serum 31 U/L aspartate aminotransferase (SGOT), serum 18 U/L - calcium, serum 8.9 mg/dL 8.5-10.1 bilirubin, serum, total 0.40 mg/dL 0.00-1.00 sodium, serum 140 mmol/L 682-639 5920/12/16 carbon dioxide, venous blood 25.4 mmol/L 21.0-32.0 potassium, serum 4.1 mmol/L 3.5-5.2 chloride, serum 104 mmol/L 98-107 blood glucose 110 mg/dL 65-110 urea nitrogen, blood 24 mg/dL 7-18 creatinine, serum 0.87 mg/dL 0.55-1.30 alanine aminotransferase (SGPT), serum 35 U/L aspartate aminotransferase (SGOT), serum 21 U/L -37 calcium, serum 8.4 mg/dL 8.5-10.1 bilirubin, serum, total 0.50 mg/dL 0.00-1.00 sodium, serum 141 mmol/L 251-495 5694/12/02 carbon dioxide, venous blood 25.9 mmol/L 21.0-32.0 potassium, serum 4.7 mmol/L 3.5-5.2 chloride, serum 106 mmol/L 98-107 blood glucose 78 mg/dL 65-110 urea nitrogen, blood 24 mg/dL 7-18 creatinine, serum 0.75 mg/dL 0.55-1.30 alanine aminotransferase (SGPT), serum 31 U/L -78 aspartate aminotransferase (SGOT), serum 20 U/L 15-37 calcium, serum 8.7 mg/dL 8.5-10.1 bilirubin, serum, total 0.30 mg/dL 0.00-1.00 sodium, serum 141 mmol/L 497-074 7797/11/18 carbon dioxide, venous blood 26.2 mmol/L 21.0-32.0 potassium, serum 4.4 mmol/L 3.5-5.2 chloride, serum 106 mmol/L 98-107 blood glucose 102 mg/dL 65-110 urea nitrogen, blood 24 mg/dL 7-18 creatinine, serum 0.77 mg/dL 0.55-1.30 alanine aminotransferase (SGPT), serum 30 U/L aspartate aminotransferase (SGOT), serum 15 U/L 15-37 calcium, serum 8.3 mg/dL 8.5-10.1 bilirubin, serum, total 0.30 mg/dL 0.00-1.00 sodium, serum 139 mmol/L 923-146 0724/11/25 carbon dioxide, venous blood 27.9 mmol/L 21.0-32.0 potassium, serum 4.7 mmol/L 3.5-5.2 chloride, serum 105 mmol/L 98-107 blood glucose 94 mg/dL 65-110 urea nitrogen, blood 21 mg/dL 7-18 creatinine, serum 0.79 mg/dL 0.55-1.30 alanine aminotransferase (SGPT), serum 40 U/L aspartate aminotransferase (SGOT), serum 22 U/L 15-37 calcium, serum 8.5 mg/dL 8.5-10.1 bilirubin, serum, total 0.80 mg/dL 0.00-1.00 sodium, serum 139 mmol/L 545-355 0043/12/30 carbon dioxide, venous blood 28.2 mmol/L 21.0-32.0 potassium, serum 3.9 mmol/L 3.5-5.2 chloride, serum 105 mmol/L 98-107 blood glucose 91 mg/dL 65-110 urea nitrogen, blood 17 mg/dL - creatinine, serum 0.81 mg/dL 0.55-1.30 alanine aminotransferase (SGPT), serum 29 U/L aspartate aminotransferase (SGOT), serum 22 U/L 15-37 calcium, serum 8.8 mg/dL 8.5-10.1 bilirubin, serum, total 0.50 mg/dL 0.00-1.00 sodium, serum 141 mmol/L 137-210 6412/11/11 carbon dioxide, venous blood 26.8 mmol/L 21.0-32.0 potassium, serum 4.2 mmol/L 3.5-5.2 chloride, serum 106 mmol/L 98-107 blood glucose 95 mg/dL 65-110 urea nitrogen, blood 18 mg/dL - creatinine, serum 0.70 mg/dL 0.55-1.30 alanine aminotransferase (SGPT), serum 33 U/L aspartate aminotransferase (SGOT), serum 22 U/L 15-37 calcium, serum 8.5 mg/dL 8.5-10.1 bilirubin, serum, total 0.30 mg/dL 0.00-1.00 Lab Report: VITAMIN D, 25-HYDROXY/63263 - Chemistry vitamin D 25-hydroxy, serum 24 ng/mL 30-100 Encounters Code Encounter Date Provider Facility CPT-04309 Level 2 Est. Patient 14:30:43 RECREATIONAL SPORTS DIRECTOR Marta Viramontes [facility] CPT-48383 Level 4 Est. Patient 09:14:36 RECREATIONAL SPORTS DIRECTOR Rikki GRANADOS [facility] CPT-72089 Level 2 Est. Patient 09:07:32 CDT Marta Viramontes [facility] CPT-29029 Level 4 Est. Patient 11:55:00 CDT Rikki GRANADOS [facility] CPT-37392 Level 3 Est. Patient 13:25:16 CDT Jennifer Chun MD PhD [facility] CPT-58703 Level 3 Est. Patient 17:31:22 CDT Solomon Alamo MD [facility] CPT-84081 Level 3 Est. Patient 08:02:14 CDT Solomon Alamo MD [facility] CPT-19710 Level 3 Est. Patient 17:23:53 CDT Rikki Steanrs [facility] CPT-02939 Level 3 Est. Patient 11:22:41 CDT Darryn Hearn [facility] Procedures Code Procedure Name Date Entry Date Standard Description CPT-66662 Venipuncture Draw Fee 09:22:28 RECREATIONAL SPORTS DIRECTOR CPT-12941 Chest 2V Frontal and Lat 09:22:27 RECREATIONAL SPORTS DIRECTOR CPT-I/D I/D Abscess 09:43:13 CDT CPT-62174 Venipuncture Draw Fee 08:16:46 RECREATIONAL SPORTS DIRECTOR CPT-62731 Venipuncture Draw Fee 08:18:55 RECREATIONAL SPORTS DIRECTOR CPT-15545 Venipuncture Draw Fee 08:31:18 RECREATIONAL SPORTS DIRECTOR CPT-19147 Venipuncture Draw Fee 11:42:52 RECREATIONAL SPORTS DIRECTOR CPT-33658 Venipuncture Draw Fee 13:26:37 RECREATIONAL SPORTS DIRECTOR CPT-73524 Venipuncture Draw Fee 09:23:38 RECREATIONAL SPORTS DIRECTOR CPT-000 Give Appropriate Tetanus Booster 10:23:50 CDT CPT-04305 Bone Density 08:28:45 CDT CPT-39501 Bone Density 11:35:15 CDT CPT-PV Prev. Care Visit 12:19:00 CDT CPT-53240 Venipuncture Draw Fee 15:02:58 CDT
--- OUTSIDE RECORDS SUMMARY | 2018-01-19 06:50 | XMS REPORT | Clinical Summary ---
Author Author Admin, E Organization [facility] Address Unknown Phone Unavailable Allergies, Adverse Reactions, Alerts Allergy Name Reaction Description Start Date Severity Status Provider SULFA facial swelling Critical Active Jocelyne Naff [employer] Conditions or Problems Problem Name Problem Code Onset Date Status Entry Date Provider Comment Standard Description Annotate G E R D 530.81 Active Jocelyne Naff [employer] Esophageal reflux FH COLON CANCER V16.0 Active Jocelyne Naff [employer]CH Family history of malignant neoplasm of gastrointestinal tract ESOPHAGEAL STRICTURE 530.3 Active Darryn Hearn PA Stricture and stenosis of esophagus CAROTID ARTERY STENOSIS, RIGHT 433.10 Active Rikki Stearns PA Occlusion and stenosis of carotid artery, without mention of cerebral infarction HEALTH SCREENING V70.0 Active Rose Darnell [employer] Routine general medical examination at a health [...] each nostril in am and pm MUPIROCIN 70321615466 Active Jocelyne Naff [employer]CH Active CLARITIN 10 MG TABS 1prn LORATADINE 86718920543 No Longer Active Jocelyne Naff [employer]CH Active ASPIRIN 81 MG TABS 1qd ASPIRIN 70107051593 No Longer Active Jocelyne Naff [employer]OL[employer]CH Active DOXYCYCLINE HYCLATE 100 MG ORAL CAPS Take one bid DOXYCYCLINE HYCLATE 52792535240 Active Jocelyne Naff [employer]UNCH Active DOXYCYCLINE HYCLATE 100 MG CAP 1 cap by mouth twice daily DOXYCYCLINE HYCLATE 30312252561 No Longer Active Rikki GRANADOS Active VITAMIN D3 33524 UNIT CAPS 1 pill by mouth weekly, for vitamin D deficiency CHOLECALCIFEROL 43203403432 Active Jennifer Chun MD PhD Active ANASTROZOLE 1 MG ORAL TABS Take one by mouth daily ANASTROZOLE 06103381692 Active Jennifer Chun MD PhD Active ZITHROMAX 250 MG TAB 2 po today, then 1 po q days 2-5 AZITHROMYCIN 42441843278 No Longer Active Rikki Harms PA Active MECLIZINE HCL 25 MG TABS 1 prn MECLIZINE HCL 54826114709 No Longer Active Solomon Alamo MD Active CHERATUSSIN AC SYRP prn as directed GUAIFENESIN- CODEINE SYRP 02727067512 No Longer Active Rikki Harms PA Active MULTIVITAMINS TABS 1qd MULTIPLE VITAMIN 56881091297 No Longer Active Rikki Harms PA Active OMEPRAZOLE 20 MG CPDR 1 PO Q D OMEPRAZOLE 84171780570 Active Rikki Harms PA Active ZITHROMAX Z-CAROLYN 250 MG TABS 2x1day,8q2dtut AZITHROMYCIN 31122957423 No Longer Active Jocelyne Lovell [employer]CH Active MULTIVITAMINS TABS 1qd MULTIVITAMINS TABS MULTIPLE VITAMIN Inactive CHERATUSSIN AC SYRP prn as directed CHERATUSSIN AC SYRP GUAIFENESIN-CODEINE SYRP Inactive MECLIZINE HCL 25 MG TABS 1 prn MECLIZINE HCL 25 MG TABS 680534 MECLIZINE HCL Inactive ASPIRIN 81 MG TABS 1qd ASPIRIN 81 MG TABS 794639 ASPIRIN Inactive CLARITIN 10 MG TABS 1prn CLARITIN 10 MG TABS 865845 LORATADINE Inactive ZITHROMAX Z-CAROLYN 250 MG TABS 2x1day,2k3ftgf ZITHROMAX Z-CAROLYN 250 MG TABS 9929436 AZITHROMYCIN Inactive ZITHROMAX 250 MG TAB 2 po today, then 1 po q days 2-5 ZITHROMAX 250 MG TAB 1894186 AZITHROMYCIN Inactive DOXYCYCLINE HYCLATE 100 MG CAP 1 cap by mouth twice daily DOXYCYCLINE HYCLATE 100 MG CAP 5388067 DOXYCYCLINE HYCLATE Inactive Vital Signs Date Name [...] % 11.6-14.8 platelet count 131 10^3/MM^3 10*3/mm3 148-212 1250/12/12 leukocyte count, blood 28.6 10^3/MM^3 10*3/mm3 4.6-10.2 [...] % 11.6-14.8 platelet count 237 10^3/MM^3 10*3/mm3 205-194 8592/12/23 leukocyte count, blood 6.9 10^3/MM^3 10*3/mm3 4.6-10.2 neutrophils as percent of blood leukocytes 57.3 % 42.2-75.2 monocytes as percent of blood leukocytes 8.6 % 1.7-9.3 lymphocytes as percent of blood leukocytes 30.4 % 20.5-51.1 erythrocyte (RBC) count 4.35 10^6/MM^3 10*6/mm3 4.04-5.48 hemoglobin, blood 13.2 g/dL 12.0-16.0 hematocrit, blood 39.0 % 36.0-46.0 mean corpuscular volume, RBC 90 fL 80-97 mean corpuscular hemoglobin, RBC 30.5 pg 27.0-31.2 mean corpuscular hemoglobin concentration, RBC 33.9 G/DL % 31.8- 35.4 red blood cell distribution width 14.4 % 11.6-14.8 platelet count 360 10^3/MM^3 10*3/mm3 537-419 4320/12/31 leukocyte count, blood 5.3 10^3/MM^3 10*3/mm3 4.6-10.2 [...] % 11.6-14.8 platelet count 222 10^3/MM^3 10*3/mm3 113-731 5454/01/07 leukocyte count, blood 11.7 10^3/MM^3 10*3/mm3 4.6-10.2 [...] % 11.6-14.8 platelet count 191 10^3/MM^3 10*3/mm3 748-944 0718/01/20 leukocyte count, blood 9.8 10^3/MM^3 10*3/mm3 4.6-10.2 [...] % 11.6-14.8 platelet count 195 10^3/MM^3 10*3/mm3 048-628 6704/01/28 leukocyte count, blood 11.9 10^3/MM^3 10*3/mm3 4.6-10.2 [...] % 11.6-14.8 platelet count 278 10^3/MM^3 10*3/mm3 689-178 4085/02/04 leukocyte count, blood 8.5 10^3/MM^3 10*3/mm3 4.6-10.2 [...] % 11.6-14.8 platelet count 326 10^3/MM^3 10*3/mm3 447-176 8152/02/10 leukocyte count, blood 2.3 10^3/MM^3 10*3/mm3 4.6-10.2 [...] % 11.6-14.8 platelet count 240 10^3/MM^3 10*3/mm3 299-136 2287/02/17 leukocyte count, blood 3.4 10^3/MM^3 10*3/mm3 4.6-10.2 [...] % 11.6-14.8 platelet count 308 10^3/MM^3 10*3/mm3 424-310 2523/02/25 leukocyte count, blood 6.6 10^3/MM^3 10*3/mm3 4.6-10.2 [...] % 11.6-14.8 platelet count 433 10^3/MM^3 10*3/mm3 142-424 Lab Report: CBC W/DIFF, Comp. Metabolic Panel - Chemistry sodium, serum 144 mmol/L 023-482 8094/12/16 potassium, serum 4.5 mmol/L 3.5-5.2 chloride, serum 107 mmol/L 98-107 carbon dioxide, venous blood 31.4 mmol/L 21.0-32.0 blood glucose 104 mg/dL 65-110 urea nitrogen, blood 17 mg/dL 7-18 creatinine, serum 1.10 mg/dL 0.60-1.30 alanine aminotransferase (SGPT), serum 25 U/L 12-78 aspartate aminotransferase (SGOT), serum 24 U/L 15-37 calcium, serum 8.4 mg/dL 8.5-10.1 bilirubin, serum, total 0.20 mg/dL 0.00-1.00 sodium, serum 141 mmol/L 388-916 6791/01/14 potassium, serum 4.9 mmol/L 3.5-5.2 chloride, serum [...] Metabolic Panel - Hematology leukocyte count, blood 6.7 10^3/MM^3 10*3/mm3 4.6-10.2 [...] % 11.6-14.8 platelet count 376 10^3/MM^3 10*3/mm3 517-663 1098/12/16 leukocyte count, blood 19.5 10^3/MM^3 10*3/mm3 4.6-10.2 [...] Panel - Chemistry sodium, serum 140 mmol/L 197-472 8985/07/13 potassium, serum 4.5 mmol/L 3.5-5.2 chloride, serum 106 mmol/L 98-107 carbon dioxide, venous blood 27.7 mmol/L 21.0-32.0 blood glucose 105 mg/dL 65-110 urea nitrogen, blood 14 mg/dL 7-18 creatinine, serum 0.90 mg/dL 0.60-1.30 alanine aminotransferase (SGPT), serum 29 U/L 12-78 aspartate aminotransferase (SGOT), serum 22 U/L 15-37 calcium, serum 9.4 mg/dL 8.5-10.1 bilirubin, serum, total 0.70 mg/dL 0.00-1.00 cholesterol, serum 160 mg/dL 191-923 6197/07/13 triglyceride, serum, fasting 63 mg/dL 30-200 HDL [...] Panel - Chemistry sodium, serum 141 mmol/L 182-737 8165/02/10 potassium, serum 5.2 mmol/L 3.5-5.2 chloride, serum 106 mmol/L 98-107 carbon dioxide, venous blood 27.8 mmol/L 21.0-32.0 blood glucose 111 mg/dL 65-110 urea nitrogen, blood 18 mg/dL 7-18 creatinine, serum 0.90 mg/dL 0.60-1.30 alanine aminotransferase (SGPT), serum 29 U/L 12-78 aspartate aminotransferase (SGOT), serum 21 U/L 15-37 calcium, serum 8.3 mg/dL 8.5-10.1 bilirubin, serum, total 0.40 mg/dL 0.00-1.00 Lab Report: VITAMIN D, 25-HYDROXY/68757 - Chemistry vitamin D 25-hydroxy, serum 24 ng/mL 30-100 Encounters Code Encounter Date Provider Facility CPT-46511 Level 2 Est. Patient 09:07:32 CDT Marta Viramontes APRN [facility] CPT-24631 Level 4 Est. Patient 11:55:00 CDT Rikki GRANADOS [facility] CPT-25273 Level 3 Est. Patient 13:25:16 CDT Jennifer Chun MD PhD [facility] CPT-51169 Level 3 Est. Patient 17:31:22 CDT Solomon Alamo MD [facility] CPT-16427 Level 3 Est. Patient 08:02:14 CDT Solomon Alamo MD [facility] CPT-23330 Level 3 Est. Patient 17:23:53 CDT Rikki GRANADOS [facility] CPT-84759 Level 3 Est. 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 Care Visit 12:19:00 CDT CPT-68301 Venipuncture Draw Fee 15:02:58 CDT
--- OUTSIDE RECORDS SUMMARY | 2018-01-19 06:51 | XMS REPORT | Clinical Summary ---
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 Family history of malignant neoplasm of gastrointestinal [...] Ingrown toenail, left 703.0 Resolved Marta Yokum [employer] STATION AGENT Ingrowing nail cellulitis, finger, right 681.00 Active Marta Yokum [employer] STATION AGENT Cellulitis and abscess of finger, unspecified Cough 786.2 Active Marta Yokum [employer]LINE STATION AGENT Cough Breast microcalcification ICD-793.81 Inactive Jennifer Chun [...] Stearns DARWIN Ingrown toenail, left ICD-703.0 Inactive Martacarlos Maganaum [employer]LINE STATION AGENT Medication List Medication Instructions Start Date Stop Date Generic Name NDC Status Provider Patient Instruction AUGMENTIN 875-125 MG TAB 1 po BID x 10 days AMOXICILLIN-POT CLAVULANATE 98037413131 Active Marta Yokum [employer]LINE STATION AGENT Active MEDROL (CAROLYN) 4 MG TABS 6 tabs on day 1, 5 tabs on day 2, 4 tabs on day 3, 3 tabs on day 4, 2 tabs on day 5, 1 tab on day 6 METHYLPREDNISOLONE 22427034644 No Longer Active Marta Yokum [employer]LINE STATION AGENT Active TESSALON PERLES 100 MG CAP 1 to 2 tablets by mouth 3 times daily as needed for cough BENZONATATE 31235726338 Active Marta Yokum AIRLINE STATION AGENT Active TUSSIONEX PENNKINETIC ER 10-8 MG/5ML LQCR 5ml po q12hr PRN Cough HYDROCOD POLST-CHLORPHEN POLST 72512311576 Active Marta Yokum AIRLINE STATION AGENT Active KEFLEX 500 MG CAP 1 po qid CEPHALEXIN 98491846503 No Longer Active Marta Yokum AIRLINE STATION AGENT Active B COMPLEX 50 ORAL CR-TABS B COMPLEX VITAMINS 80497560012 Active aMrta Viramontes APRN Active TUSSIONEX PENNKINETIC ER 10-8 MG/5ML LQCR 5ml po q12hr PRN Cough HYDROCOD POLST-CHLORPHEN POLST 49388434052 No Longer Active Marta Viramontes APRN Active VITAMIN D3 97366 UNIT CAPS 1 qWeek x 4 months for vitamin D deficiency 04/09 CHOLECALCIFEROL 70867198330 Active Marta Viramontes [employer]ATION AGENT Active CEPHALEXIN 500 MG ORAL CAPS Take one four times a day CEPHALEXIN 90562340651 No Longer Active Marta Viramontes [employer]LINE STATION AGENT Active BIOTIN 1000 MCG ORAL TABS Take one daily BIOTIN 60839737072 Active Rikki Harms PA Active VITAMIN C 500 MG ORAL CAPS Take one daily ASCORBIC ACID 08647591128 Active Rikki Harms PA Active BENZONATATE 200 MG ORAL CAPS One capsule tid. BENZONATATE 86579600290 No Longer Active Rikki Harms PA Active FLONASE ALLERGY RELIEF 50 MCG/ACT NASAL SUSP spray twice in each nostril one time daily FLUTICASONE PROPIONATE 09023307734 No Longer Active Rikki Harms PA Active TUSSIONEX PENNKINETIC ER 10-8 MG/5ML LQCR 5ml po q12hr PRN Cough HYDROCOD POLST-CHLORPHEN POLST 08781532213 No Longer Active Rikki Harms PA Active NIACIN ER 500 MG ORAL CR-TABS Take one twice daily NIACIN 54076881566 Active Rikki Harms PA Active ALBUTEROL SULFATE 0.083 % NEBU SOLN one vial per nebulizer every 4-6 hours as needed ALBUTEROL SULFATE 09169760171 No Longer Active Rikki Harms PA Active MEDROL (CAROLYN) 4 MG TABS 6 tabs on day 1, 5 tabs on day 2, 4 tabs on day 3, 3 tabs on day 4, 2 tabs on day 5, 1 tab on day 6 METHYLPREDNISOLONE 03972627452 No Longer Active Rikki Harms PA Active LEVAQUIN 750 MG TABS 1 po qd x 7 days LEVOFLOXACIN 31349830168 No Longer Active Rikki Harms PA Active LEVAQUIN 500 MG ORAL TABS Take one tablet daily LEVOFLOXACIN 66240665815 No Longer Active Rikki Harms PA Active PROAIR HFA 108 (90 BASE) MCG/ACT AERS 2 puffs four times a day as needed 2014 ALBUTEROL SULFATE 11949522919 Active Marta Yokum [employer]ATION AGENT Active LEVAQUIN 500 MG TAB 1 tablet by mouth daily LEVOFLOXACIN 47092147154 No Longer Active Marta Yokum [employer]LINE STATION AGENT Active CHERATUSSIN AC 100-10 MG/5ML SYRP 1 tsp by mouth every 4 hours as needed for cough GUAIFENESIN-CODEINE 51457935843 No Longer Active Rikki Harms PA Active MUPIROCIN 2 % EXT OINT Use in each nostril in am and pm MUPIROCIN 21251117363 No Longer Active Rikki Harms PA Active DOXYCYCLINE HYCLATE 100 MG ORAL CAPS Take one bid DOXYCYCLINE HYCLATE 00470313304 No Longer Active Rikki Harms PA Active CLARITIN 10 MG TABS 1prn LORATADINE 24682151560 No Longer Active 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 Naff [employer]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 ASPIRIN 81 MG TABS 1qd ASPIRIN 99129853342 No Longer Active Jocelyne Naff [employer]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 DOXYCYCLINE HYCLATE 100 MG CAP 1 cap by mouth twice daily DOXYCYCLINE HYCLATE 02750118951 No Longer Active Rikki Harms PA Active VITAMIN D3 73942 UNIT CAPS 1 pill by mouth weekly, for vitamin D deficiency CHOLECALCIFEROL 54767171128 No Longer Active Jennifer Chun MD PhD Active ANASTROZOLE 1 MG ORAL TABS Take one by mouth daily ANASTROZOLE 55236934991 Active Jennifer Chun MD PhD Active ZITHROMAX 250 MG TAB 2 po today, then 1 po q days 2-5 AZITHROMYCIN 23953440702 No Longer Active Rikki Harms PA Active MECLIZINE HCL 25 MG TABS 1 prn MECLIZINE HCL 26073775980 No Longer Active Solomon Alamo MD Active CHERATUSSIN AC SYRP prn as directed GUAIFENESIN- CODEINE SYRP 12143128708 No Longer Active Rikki Harms PA Active MULTIVITAMINS TABS 1qd MULTIPLE VITAMIN 11660252529 No Longer Active Rikki Harms PA Active OMEPRAZOLE 20 MG CPDR 1 PO Q D OMEPRAZOLE 06498069948 Active Jocelyne Naff [employer]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 ZITHROMAX Z-CAROLYN 250 MG TABS 2x1day,3c3hpuy AZITHROMYCIN 62570806949 No Longer Active Jocelyne Naff [employer]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 MULTIVITAMINS TABS 1qd MULTIVITAMINS TABS MULTIPLE VITAMIN Inactive CHERATUSSIN AC SYRP prn as directed CHERATUSSIN AC SYRP GUAIFENESIN-CODEINE SYRP Inactive MECLIZINE HCL 25 MG TABS 1 prn MECLIZINE HCL 25 MG TABS 723221 MECLIZINE HCL Inactive ASPIRIN 81 MG TABS 1qd ASPIRIN 81 MG TABS ASPIRIN Inactive CLARITIN 10 MG TABS 1prn CLARITIN 10 MG TABS 187327 LORATADINE Inactive DOXYCYCLINE HYCLATE 100 MG ORAL CAPS Take one bid DOXYCYCLINE HYCLATE 100 MG ORAL CAPS 5592461 DOXYCYCLINE HYCLATE Inactive MUPIROCIN 2 % EXT OINT Use in each nostril in am and pm MUPIROCIN 2 % EXT OINT 964038 MUPIROCIN Inactive CHERATUSSIN AC 100-10 MG/5ML SYRP 1 tsp by mouth every 4 hours as needed for cough CHERATUSSIN AC 100-10 MG/5ML SYRP 283162 GUAIFENESIN-CODEINE Inactive LEVAQUIN 500 MG TAB 1 tablet by mouth daily LEVAQUIN 500 MG TAB 477094 LEVOFLOXACIN Inactive LEVAQUIN 500 MG ORAL TABS Take one tablet daily LEVAQUIN 500 MG ORAL TABS 210235 LEVOFLOXACIN Inactive LEVAQUIN 750 MG TABS 1 po qd x 7 days LEVAQUIN 750 MG TABS 027137 LEVOFLOXACIN Inactive ALBUTEROL SULFATE 0.083 % NEBU SOLN one vial per nebulizer every 4-6 hours as needed ALBUTEROL SULFATE 0.083 % NEBU SOLN 439433 ALBUTEROL SULFATE Inactive TUSSIONEX PENNKINETIC ER 10-8 MG/5ML LQCR 5ml po q12hr PRN Cough TUSSIONEX PENNKINETIC ER 10-8 MG/5ML LQCR HYDROCOD POLST- CHLORPHEN POLST Inactive FLONASE ALLERGY RELIEF 50 MCG/ACT NASAL SUSP spray twice in each nostril one time daily FLONASE ALLERGY RELIEF 50 MCG/ACT NASAL SUSP 2177823 FLUTICASONE PROPIONATE Inactive BENZONATATE 200 MG ORAL CAPS One capsule tid. BENZONATATE 200 MG ORAL CAPS 330603 BENZONATATE Inactive CEPHALEXIN 500 MG ORAL CAPS Take one four times a day CEPHALEXIN 500 MG ORAL CAPS 930239 CEPHALEXIN Inactive TUSSIONEX PENNKINETIC ER 10-8 MG/5ML LQCR 5ml po q12hr PRN Cough TUSSIONEX PENNKINETIC ER 10-8 MG/5ML LQCR HYDROCOD POLST- CHLORPHEN POLST Inactive ZITHROMAX Z-CAROLYN 250 MG TABS 2x1day,7v2ldll ZITHROMAX Z-CAROLYN 250 MG TABS 7993375 AZITHROMYCIN Inactive ZITHROMAX 250 MG TAB 2 po today, then 1 po q days 2-5 ZITHROMAX 250 MG TAB 9714934 AZITHROMYCIN Inactive VITAMIN D3 81010 UNIT CAPS 1 pill by mouth weekly, for vitamin D deficiency VITAMIN D3 35525 UNIT CAPS CHOLECALCIFEROL Inactive DOXYCYCLINE HYCLATE 100 MG CAP 1 cap by mouth twice daily DOXYCYCLINE HYCLATE 100 MG CAP 9198692 DOXYCYCLINE HYCLATE Inactive MEDROL (CAROLYN) 4 MG TABS 6 tabs on day 1, 5 tabs on day 2, 4 tabs on day 3, 3 tabs on day 4, 2 tabs on day 5, 1 tab on day 6 MEDROL ( CAROLYN) 4 MG TABS 613845 METHYLPREDNISOLONE Inactive KEFLEX 500 MG CAP 1 po qid KEFLEX 500 MG CAP 769395 CEPHALEXIN Inactive MEDROL (CAROLYN) 4 MG TABS 6 tabs on day 1, 5 tabs on day 2, 4 tabs on day 3, 3 tabs on day 4, 2 tabs on day 5, 1 tab on day 6 MEDROL ( CAROLYN) 4 MG TABS 096825 METHYLPREDNISOLONE Inactive Vital Signs Date Name Value [...] Panel - Chemistry sodium, serum 142 mmol/L 186-730 4388/07/25 potassium, serum 4.0 mmol/L 3.5-5.2 chloride, serum 107 mmol/L 98-107 carbon dioxide, venous blood 31.6 mmol/L 21.0-32.0 blood glucose 108 mg/dL 65-110 calcium, serum 9.2 mg/dL 8.5-10.1 urea nitrogen, blood 20 mg/dL 7-18 creatinine, serum 0.92 mg/dL 0.55-1.30 sodium, serum 141 mmol/L 194-098 3201/11/11 potassium, serum 4.2 mmol/L 3.5-5.2 chloride, serum 106 mmol/L 98-107 carbon dioxide, venous blood 29.1 mmol/L 21.0-32.0 blood glucose 95 mg/dL 65-110 calcium, serum 8.6 mg/dL 8.5-10.1 urea nitrogen, blood 23 mg/dL 7-18 creatinine, serum 0.83 mg/dL 0.55-1.30 Lab Report: Lipid Panel, Thyroid Stimulating Hormone (L) - Chemistry cholesterol, serum 177 mg/dL 001-683 2482/10/31 triglyceride, serum, fasting 64 mg/dL 30-200 HDL cholesterol, serum 77 mg/dL 32-96 LDL cholesterol, serum 87 mg/dL 0-130 TSH 2.13 m[iU]/mL 0.36-3.74 Lab Report: VITAMIN D, 25-HYDROXY/63211 - Chemistry vitamin D 25-hydroxy, serum 25 ng/mL 30-100 Encounters Code Encounter Date Provider Facility CPT-18608 Level 3 Est. Patient 16:07:34 CDT Marta Viramontes [facility] CPT-39588 Level 3 Est. Patient 15:39:01 CDT Marta Viramontes [facility] CPT-60666 Level 4 Est. Patient 17:31:07 CDT Marta Viramontes [facility] CPT-00231 Level 3 Est. Patient 05:11:40 CDT Rikki GRANADOS [facility] CPT-39728 Level 2 Est. 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 Patient 09:07:32 CDT Marta Viramontes [facility] CPT-94832 Level 4 Est. Patient 11:55:00 CDT Rikki GRANADOS [facility] CPT-96175 Level 3 Est. Patient 13:25:16 CDT Jennifer Chun MD [facility] CPT-12709 Level 3 Est. Patient 17:31:22 CDT Solomon Alamo MD [facility] CPT-92797 Level 3 Est. Patient 08:02:14 CDT Solomon Alamo MD [facility] CPT-08482 Level 3 Est. Patient 17:23:53 CDT Rikki GRANADOS [facility] CPT-30977 Level 3 Est. 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 CPT-61550 BMP - LAB USE ONLY 10:32:33 METAL SHEET ROLLER OPERATOR CPT-62298 Venipuncture Draw Fee 10:32:33 METAL SHEET ROLLER OPERATOR CPT-72281 Magnesium - LAB USE ONLY 09:54:30 CDT CPT-42326 TSH - LAB USE ONLY 09:54:30 CDT CPT-17964 Lipid - LAB USE ONLY 09:54:30 CDT CPT-84393 Venipuncture Draw Fee 09:54:29 CDT CPT-88499 Venipuncture Draw Fee 18:27:04 CDT CPT-07395 Chest 2V Frontal and Lat 10:57:00 [employer]AL SHEET ROLLER OPERATOR CPT-01989 Venipuncture Draw Fee 10:56:59 METAL SHEET ROLLER OPERATOR CPT-20464 Venipuncture Draw Fee 09:22:28 METAL SHEET ROLLER OPERATOR CPT-88971 Chest 2V Frontal and Lat 09:22:27 METAL SHEET ROLLER OPERATOR CPT-I/D I/D Abscess 09:43:13 CDT CPT-00930 Venipuncture Draw Fee 08:16:46 METAL SHEET ROLLER OPERATOR CPT-29605 Venipuncture Draw Fee 08:18:55 METAL SHEET ROLLER OPERATOR CPT-23462 Venipuncture Draw Fee 08:31:18 METAL SHEET ROLLER OPERATOR CPT-60135 Venipuncture Draw Fee 11:42:52 METAL SHEET ROLLER OPERATOR CPT-49478 Venipuncture Draw Fee 13:26:37 METAL SHEET ROLLER OPERATOR CPT-09430 Venipuncture Draw Fee 09:23:38 METAL SHEET ROLLER OPERATOR CPT-000 Give Appropriate Tetanus Booster 10:23:50 CDT CPT-08891 Bone Density 08:28:45 CDT CPT-82091 Bone Density 11:35:15 CDT CPT-PV Prev. Care Visit 12:19:00 CDT CPT-06570 Venipuncture Draw Fee 15:02:58 CDT
--- OUTSIDE RECORDS SUMMARY | 2018-01-19 06:51 | XMS REPORT | Clinical Summary ---
Author Author Admin, E Organization [facility] Address Unknown Phone Unavailable Allergies, Adverse Reactions, Alerts Allergy Name Reaction Description Start Date Severity Status Provider SULFA facial swelling Critical Active Jocelyne Naff ENHANCED ENVIRONMENTAL OPERATOR Conditions or Problems Problem Name Problem Code Onset Date Status Entry Date Provider Comment Standard Description Annotate G E R D 530.81 Active Jocelyne Naff ENHANCED ENVIRONMENTAL OPERATOR Esophageal reflux FH COLON CANCER V16.0 Active Jocelyne Naff ENHANCED ENVIRONMENTAL OPERATOR Family history of malignant neoplasm of [...] Active Rikki GRANADOS Encounter for antineoplastic chemotherapy Breast microcalcification ICD-793.81 Inactive Jennifer Chun MD PhD Abnormal Mammogram ICD-793.80 Inactive Jennifer Chun MD PhD Medication List Medication Instructions Start Date Stop Date Generic Name NDC Status Provider Patient Instruction PROAIR HFA 108 (90 BASE) MCG/ACT AERS 2 puffs four times a day as needed 2014 ALBUTEROL SULFATE 36051472988 Active Marta Viramontes APRN Active TUSSIONEX PENNKINETIC ER 10-8 MG/5ML LQCR 5ml po q12hr PRN Cough HYDROCOD POLST-CHLORPHEN POLST 89644211485 Active Rikki GRANADOS Active LEVAQUIN 750 MG TABS 1 po qd x 7 days LEVOFLOXACIN 06559472289 Active Marta Viramontes TIN ROOFER Active FLONASE ALLERGY RELIEF 50 MCG/ACT NASAL SUSP spray twice in each nostril one time daily FLUTICASONE PROPIONATE 09122268651 Active Marta Maganaum TIN ROOFER Active LEVAQUIN 500 MG TAB 1 tablet by mouth daily LEVOFLOXACIN 77490793645 No Longer Active Marta Caalkum TIN ROOFER Active BENZONATATE 200 MG ORAL CAPS One capsule tid. BENZONATATE 98919262924 Active Martacarlos Maganaum TIN ROOFER Active CHERATUSSIN AC 100-10 MG/5ML SYRP 1 tsp by mouth every 4 hours as needed for cough GUAIFENESIN-CODEINE 22366780739 No Longer Active Rikki Harms PA Active MUPIROCIN 2 % EXT OINT Use in each nostril in am and pm MUPIROCIN 41122893807 No Longer Active Rikki Harms PA Active DOXYCYCLINE HYCLATE 100 MG ORAL CAPS Take one bid DOXYCYCLINE HYCLATE 24005719158 No Longer Active Rikki Harms PA Active CLARITIN 10 MG TABS 1prn LORATADINE 56920585882 No Longer Active Jocelyne Naff ENHANCED ENVIRONMENTAL OPERATOR Active ASPIRIN 81 MG TABS 1qd ASPIRIN 03850751820 No Longer Active Jocelyne Naff ENHANCED ENVIRONMENTAL OPERATOR Active DOXYCYCLINE HYCLATE 100 MG CAP 1 cap by mouth twice daily DOXYCYCLINE HYCLATE 48175905245 No Longer Active Rikki Harms PA Active VITAMIN D3 20105 UNIT CAPS 1 pill by mouth weekly, for vitamin D deficiency CHOLECALCIFEROL 35716916019 No Longer Active Jennifer Chun MD PhD Active ANASTROZOLE 1 MG ORAL TABS Take one by mouth daily ANASTROZOLE 79091907869 Active Jennifer Chun MD PhD Active ZITHROMAX 250 MG TAB 2 po today, then 1 po q days 2-5 AZITHROMYCIN 25219786875 No Longer Active Rikki Harms PA Active MECLIZINE HCL 25 MG TABS 1 prn MECLIZINE HCL 17386857988 No Longer Active Solomon Alamo MD Active CHERATUSSIN AC SYRP prn as directed GUAIFENESIN- CODEINE SYRP 14060454933 No Longer Active Rikki Harms PA Active MULTIVITAMINS TABS 1qd MULTIPLE VITAMIN 37624158503 No Longer Active Rikki Harms PA Active OMEPRAZOLE 20 MG CPDR 1 PO Q D OMEPRAZOLE 71155961390 Active Rikki Harms PA Active ZITHROMAX Z-CAROLYN 250 MG TABS 2x1day,5w5whqo AZITHROMYCIN 50425564450 No Longer Active Jocelynederic Lovell ENHANCED ENVIRONMENTAL OPERATOR Active MULTIVITAMINS TABS 1qd MULTIVITAMINS TABS MULTIPLE VITAMIN Inactive CHERATUSSIN AC SYRP prn as directed CHERATUSSIN AC SYRP GUAIFENESIN-CODEINE SYRP Inactive MECLIZINE HCL 25 MG TABS 1 prn MECLIZINE HCL 25 MG TABS 040747 MECLIZINE HCL Inactive ASPIRIN 81 MG TABS 1qd ASPIRIN 81 MG TABS 708110 ASPIRIN Inactive CLARITIN 10 MG TABS 1prn CLARITIN 10 MG TABS 569049 LORATADINE Inactive DOXYCYCLINE HYCLATE 100 MG ORAL CAPS Take one bid DOXYCYCLINE HYCLATE 100 MG ORAL CAPS 2777316 DOXYCYCLINE HYCLATE Inactive MUPIROCIN 2 % EXT OINT Use in each nostril in am and pm MUPIROCIN 2 % EXT OINT 680279 MUPIROCIN Inactive CHERATUSSIN AC 100-10 MG/5ML SYRP 1 tsp by mouth every 4 hours as needed for cough CHERATUSSIN AC 100-10 MG/5ML SYRP 024935 GUAIFENESIN-CODEINE Inactive LEVAQUIN 500 MG TAB 1 tablet by mouth daily LEVAQUIN 500 MG TAB 225753 LEVOFLOXACIN Inactive ZITHROMAX Z-CAROLYN 250 MG TABS 2x1day,4n7dqll ZITHROMAX Z-CAROLYN 250 MG TABS 9541299 AZITHROMYCIN Inactive ZITHROMAX 250 MG TAB 2 po today, then 1 po q days 2-5 ZITHROMAX 250 MG TAB 9916481 AZITHROMYCIN Inactive VITAMIN D3 86578 UNIT CAPS 1 pill by mouth weekly, for vitamin D deficiency VITAMIN D3 70736 UNIT CAPS CHOLECALCIFEROL Inactive DOXYCYCLINE HYCLATE 100 MG CAP 1 cap by mouth twice daily DOXYCYCLINE HYCLATE 100 MG CAP 3751995 DOXYCYCLINE HYCLATE Inactive Vital Signs Date Name [...] CBC W/DIFF - Hematology leukocyte count, blood 8.5 10^3/MM^3 10*3/mm3 4.6-10.2 [...] % 11.6-14.8 platelet count 326 10^3/MM^3 10*3/mm3 430-107 6288/02/10 leukocyte count, blood 2.3 10^3/MM^3 10*3/mm3 4.6-10.2 [...] % 11.6-14.8 platelet count 240 10^3/MM^3 10*3/mm3 659-636 0071/02/17 leukocyte count, blood 3.4 10^3/MM^3 10*3/mm3 4.6-10.2 [...] % 11.6-14.8 platelet count 308 10^3/MM^3 10*3/mm3 421-100 6898/02/25 leukocyte count, blood 6.6 10^3/MM^3 10*3/mm3 4.6-10.2 [...] % 11.6-14.8 platelet count 433 10^3/MM^3 10*3/mm3 133-048 5500/11/18 leukocyte count, blood 8.5 10^3/MM^3 10*3/mm3 4.6-10.2 [...] % 11.6-14.8 platelet count 143 10^3/MM^3 10*3/mm3 695-785 2958/11/25 leukocyte count, blood 2.1 10^3/MM^3 10*3/mm3 4.6-10.2 [...] % 11.6-14.8 platelet count 139 10^3/MM^3 10*3/mm3 787-252 3770/12/02 leukocyte count, blood 6.7 10^3/MM^3 10*3/mm3 4.6-10.2 [...] % 11.6-14.8 platelet count 258 10^3/MM^3 10*3/mm3 888-432 4676/12/09 leukocyte count, blood 5.3 10^3/MM^3 10*3/mm3 4.6-10.2 [...] % 11.6-14.8 platelet count 240 10^3/MM^3 10*3/mm3 537-327 7876/12/16 leukocyte count, blood 3.2 10^3/MM^3 10*3/mm3 4.6-10.2 [...] % 11.6-14.8 platelet count 158 10^3/MM^3 10*3/mm3 860-887 2250/12/18 leukocyte count, blood 8.8 10^3/MM^3 10*3/mm3 4.6-10.2 [...] % 11.6-14.8 platelet count 207 10^3/MM^3 10*3/mm3 839-596 6951/12/23 leukocyte count, blood 6.2 10^3/MM^3 10*3/mm3 4.6-10.2 [...] % 11.6-14.8 platelet count 183 10^3/MM^3 10*3/mm3 745-743 3032/11/11 leukocyte count, blood 2.0 10^3/MM^3 10*3/mm3 4.6-10.2 [...] % 11.6-14.8 platelet count 203 10^3/MM^3 10*3/mm3 302-080 9586/12/30 leukocyte count, blood 5.2 10^3/MM^3 10*3/mm3 4.6-10.2 [...] Panel - Chemistry sodium, serum 138 mmol/L 562-020 2793/11/04 carbon dioxide, venous blood 27.7 mmol/L 21.0-32.0 potassium, serum 4.9 mmol/L 3.5-5.2 chloride, serum 104 mmol/L 98-107 blood glucose 92 mg/dL 65-110 urea nitrogen, blood 24 mg/dL 7-18 creatinine, serum 0.95 mg/dL 0.55-1.30 alanine aminotransferase (SGPT), serum 34 U/L - aspartate aminotransferase (SGOT), serum 23 U/L 15-37 calcium, serum 8.9 mg/dL 8.5-10.1 bilirubin, serum, total 0.70 mg/dL 0.00-1.00 sodium, serum 140 mmol/L 640-563 8295/01/06 carbon dioxide, venous blood 27.2 mmol/L 21.0-32.0 potassium, serum 4.1 mmol/L 3.5-5.2 chloride, serum 105 mmol/L 98-107 blood glucose 70 mg/dL 65-110 urea nitrogen, blood 25 mg/dL 7-18 creatinine, serum 0.90 mg/dL 0.55-1.30 alanine aminotransferase (SGPT), serum 28 U/L -78 aspartate aminotransferase (SGOT), serum 20 U/L 15-37 calcium, serum 8.9 mg/dL 8.5-10.1 bilirubin, serum, total 0.40 mg/dL 0.00-1.00 sodium, serum 140 mmol/L 731-314 2465/01/13 carbon dioxide, venous blood 26.4 mmol/L 21.0-32.0 [...] % 11.6-14.8 platelet count 297 10^3/MM^3 10*3/mm3 179-839 1609/01/13 leukocyte count, blood 5.2 10^3/MM^3 10*3/mm3 4.6-10.2 [...] % 11.6-14.8 platelet count 289 10^3/MM^3 10*3/mm3 933-329 4499/11/04 leukocyte count, blood 3.8 10^3/MM^3 10*3/mm3 4.6-10.2 [...] count 216 10^3/MM^3 10*3/mm3 142-424 Lab Report: CBC, Comp. Metabolic Panel, Lipid Panel - Chemistry sodium, serum 140 mmol/L 379-610 9163/07/13 potassium, serum 4.5 mmol/L 3.5-5.2 chloride, serum 106 mmol/L 98-107 carbon dioxide, venous blood 27.7 mmol/L 21.0-32.0 blood glucose 105 mg/dL 65-110 urea nitrogen, blood 14 mg/dL 7-18 creatinine, serum 0.90 mg/dL 0.60-1.30 alanine aminotransferase (SGPT), serum 29 U/L 12-78 aspartate aminotransferase (SGOT), serum 22 U/L 15-37 calcium, serum 9.4 mg/dL 8.5-10.1 bilirubin, serum, total 0.70 mg/dL 0.00-1.00 cholesterol, serum 160 mg/dL 564-117 9079/07/13 triglyceride, serum, fasting 63 mg/dL 30-200 HDL [...] Panel - Chemistry sodium, serum 141 mmol/L 440-731 1890/02/10 potassium, serum 5.2 mmol/L 3.5-5.2 chloride, serum 106 mmol/L 98-107 carbon dioxide, venous blood 27.8 mmol/L 21.0-32.0 blood glucose 111 mg/dL 65-110 urea nitrogen, blood 18 mg/dL 7-18 creatinine, serum 0.90 mg/dL 0.60-1.30 alanine aminotransferase (SGPT), serum 29 U/L - aspartate aminotransferase (SGOT), serum 21 U/L 15-37 calcium, serum 8.3 mg/dL 8.5-10.1 bilirubin, serum, total 0.40 mg/dL 0.00-1.00 sodium, serum 141 mmol/L 611-341 6003/11/18 carbon dioxide, venous blood 26.2 mmol/L 21.0-32.0 potassium, serum 4.4 mmol/L 3.5-5.2 chloride, serum 106 mmol/L 98-107 blood glucose 102 mg/dL 65-110 urea nitrogen, blood 24 mg/dL 7-18 creatinine, serum 0.77 mg/dL 0.55-1.30 alanine aminotransferase (SGPT), serum 30 U/L -78 aspartate aminotransferase (SGOT), serum 15 U/L 15-37 calcium, serum 8.3 mg/dL 8.5-10.1 bilirubin, serum, total 0.30 mg/dL 0.00-1.00 sodium, serum 139 mmol/L 766-966 3026/11/25 carbon dioxide, venous blood 27.9 mmol/L 21.0-32.0 potassium, serum 4.7 mmol/L 3.5-5.2 chloride, serum 105 mmol/L 98-107 blood glucose 94 mg/dL 65-110 urea nitrogen, blood 21 mg/dL 7-18 creatinine, serum 0.79 mg/dL 0.55-1.30 alanine aminotransferase (SGPT), serum 40 U/L - aspartate aminotransferase (SGOT), serum 22 U/L 15-37 calcium, serum 8.5 mg/dL 8.5-10.1 bilirubin, serum, total 0.80 mg/dL 0.00-1.00 sodium, serum 139 mmol/L 132-166 9779/12/30 carbon dioxide, venous blood 28.2 mmol/L 21.0-32.0 potassium, serum 3.9 mmol/L 3.5-5.2 chloride, serum 105 mmol/L 98-107 blood glucose 91 mg/dL 65-110 urea nitrogen, blood 17 mg/dL 7-18 creatinine, serum 0.81 mg/dL 0.55-1.30 alanine aminotransferase (SGPT), serum 29 U/L aspartate aminotransferase (SGOT), serum 22 U/L 15-37 calcium, serum 8.8 mg/dL 8.5-10.1 bilirubin, serum, total 0.50 mg/dL 0.00-1.00 sodium, serum 141 mmol/L 300-588 7320/11/11 carbon dioxide, venous blood 26.8 mmol/L 21.0-32.0 potassium, serum 4.2 mmol/L 3.5-5.2 chloride, serum 106 mmol/L 98-107 blood glucose 95 mg/dL 65-110 urea nitrogen, blood 18 mg/dL 7-18 creatinine, serum 0.70 mg/dL 0.55-1.30 alanine aminotransferase (SGPT), serum 33 U/L aspartate aminotransferase (SGOT), serum 22 U/L 15-37 calcium, serum 8.5 mg/dL 8.5-10.1 bilirubin, serum, total 0.30 mg/dL 0.00-1.00 sodium, serum 143 mmol/L 369-758 5828/12/23 carbon dioxide, venous blood 24.6 mmol/L 21.0-32.0 potassium, serum 4.1 mmol/L 3.5-5.2 chloride, serum 107 mmol/L 98-107 blood glucose 98 mg/dL 65-110 urea nitrogen, blood 22 mg/dL 7-18 creatinine, serum 0.77 mg/dL 0.55-1.30 alanine aminotransferase (SGPT), serum 28 U/L aspartate aminotransferase (SGOT), serum 20 U/L 15-37 calcium, serum 8.6 mg/dL 8.5-10.1 bilirubin, serum, total 0.30 mg/dL 0.00-1.00 sodium, serum 142 mmol/L 020-423 9310/12/09 carbon dioxide, venous blood 28.5 mmol/L 21.0-32.0 potassium, serum 5.0 mmol/L 3.5-5.2 chloride, serum 109 mmol/L 98-107 blood glucose 91 mg/dL 65-110 urea nitrogen, blood 27 mg/dL 7-18 creatinine, serum 0.88 mg/dL 0.55-1.30 alanine aminotransferase (SGPT), serum 31 U/L aspartate aminotransferase (SGOT), serum 18 U/L 15-37 calcium, serum 8.9 mg/dL 8.5-10.1 bilirubin, serum, total 0.40 mg/dL 0.00-1.00 sodium, serum 140 mmol/L 415-946 6540/12/16 carbon dioxide, venous blood 25.4 mmol/L 21.0-32.0 potassium, serum 4.1 mmol/L 3.5-5.2 chloride, serum 104 mmol/L 98-107 blood glucose 110 mg/dL 65-110 urea nitrogen, blood 24 mg/dL 7-18 creatinine, serum 0.87 mg/dL 0.55-1.30 alanine aminotransferase (SGPT), serum 35 U/L aspartate aminotransferase (SGOT), serum 21 U/L - calcium, serum 8.4 mg/dL 8.5-10.1 bilirubin, serum, total 0.50 mg/dL 0.00-1.00 sodium, serum 141 mmol/L 364-655 6111/12/02 carbon dioxide, venous blood 25.9 mmol/L 21.0-32.0 potassium, serum 4.7 mmol/L 3.5-5.2 chloride, serum 106 mmol/L 98-107 blood glucose 78 mg/dL 65-110 urea nitrogen, blood 24 mg/dL 7-18 creatinine, serum 0.75 mg/dL 0.55-1.30 alanine aminotransferase (SGPT), serum 31 U/L aspartate aminotransferase (SGOT), serum 20 U/L - calcium, serum 8.7 mg/dL 8.5-10.1 bilirubin, serum, total 0.30 mg/dL 0.00-1.00 Lab Report: VITAMIN D, 25-HYDROXY/06884 - Chemistry vitamin D 25-hydroxy, serum 24 ng/mL 30-100 Encounters Code Encounter Date Provider Facility CPT-65460 Level 2 Est. Patient 14:30:43 NURSING ADMINISTRATOR Marta Viramontes [facility] CPT-34651 Level 4 Est. Patient 09:14:36 NURSING ADMINISTRATOR Rikki GRANADOS [facility] CPT-66647 Level 2 Est. Patient 09:07:32 CDT Marta Viramontes [facility] CPT-48682 Level 4 Est. Patient 11:55:00 CDT Rikki GRANADOS [facility] CPT-03922 Level 3 Est. Patient 13:25:16 CDT Jennifer Chun MD [facility] CPT-39914 Level 3 Est. Patient 17:31:22 CDT Solomon Alamo MD [facility] CPT-39953 Level 3 Est. Patient 08:02:14 CDT Solomon Alamo MD [facility] CPT-65491 Level 3 Est. Patient 17:23:53 CDT Rikki GRANADOS [facility] CPT-84774 Level 3 Est. Patient 11:22:41 CDT Darryn Hearn [facility] Procedures Code Procedure Name Date Entry Date Standard Description CPT-31716 Venipuncture Draw Fee 09:22:28 NURSING ADMINISTRATOR CPT-52343 Chest 2V Frontal and Lat 09:22:27 NURSING ADMINISTRATOR CPT-I/D I/D Abscess 09:43:13 CDT CPT-55412 Venipuncture Draw Fee 08:16:46 NURSING ADMINISTRATOR CPT-84491 Venipuncture Draw Fee 08:18:55 NURSING ADMINISTRATOR CPT-73165 Venipuncture Draw Fee 08:31:18 NURSING ADMINISTRATOR CPT-70307 Venipuncture Draw Fee 11:42:52 NURSING ADMINISTRATOR CPT-27547 Venipuncture Draw Fee 13:26:37 NURSING ADMINISTRATOR CPT-22909 Venipuncture Draw Fee 09:23:38 NURSING ADMINISTRATOR CPT-000 Give Appropriate Tetanus Booster 10:23:50 CDT CPT-97780 Bone Density 08:28:45 CDT CPT-38143 Bone Density 11:35:15 CDT CPT-PV Prev. Care Visit 12:19:00 CDT CPT-32839 Venipuncture Draw Fee 15:02:58 CDT
--- OUTSIDE RECORDS SUMMARY | 2018-01-19 06:52 | XMS REPORT | Clinical Summary ---
Author Author Admin, E Organization [facility] [place] Address Unknown Phone Unavailable Allergies, Adverse Reactions, Alerts Allergy Name Reaction Description Start Date Severity Status Provider SULFA facial swelling Critical Active Jocelyne Naff SEWAGE DISPOSAL WORKER Conditions or Problems Problem Name Problem Code Onset Date Status Entry Date Provider Comment Standard Description Annotate G E R D 530.81 Active Jocelyne Naff SEWAGE DISPOSAL WORKER Esophageal reflux FH COLON CANCER V16.0 Active Jocelyne Naff SEWAGE DISPOSAL WORKER Family history of malignant neoplasm of gastrointestinal [...] positional vertigo Breast microcalcification 793.81 Ruled out Jennfier Chun MD PhD Mammographic microcalcification Abnormal Mammogram [...] for antineoplastic chemotherapy Breast microcalcification ICD-793.81 Inactive Jnenifer Chun MD PhD Abnormal Mammogram ICD-793.80 Inactive Jennifer Chun MD PhD Medication List Medication Instructions Start Date Stop Date Generic Name NDC Status Provider Patient Instruction PROAIR HFA 108 (90 BASE) MCG/ACT AERS 2 puffs four times a day as needed 2014 ALBUTEROL SULFATE 17064298572 Active Marta Yokum MID LEVEL PROJECT MANAGER Active TUSSIONEX PENNKINETIC ER 10-8 MG/5ML LQCR 5ml po q12hr PRN Cough HYDROCOD POLST-CHLORPHEN POLST 69644600598 Active Marta Yokum MID LEVEL PROJECT MANAGER Active LEVAQUIN 750 MG TABS 1 po qd x 7 days LEVOFLOXACIN 18346293864 Active Marta Viramontes MID LEVEL PROJECT MANAGER Active FLONASE ALLERGY RELIEF 50 MCG/ACT NASAL SUSP spray twice in each nostril one time daily FLUTICASONE PROPIONATE 48218123902 Active Marta Chinoum MID LEVEL PROJECT MANAGER Active LEVAQUIN 500 MG TAB 1 tablet by mouth daily LEVOFLOXACIN 55569932123 No Longer Active Marta Tenkum MID LEVEL PROJECT MANAGER Active BENZONATATE 200 MG ORAL CAPS One capsule tid. BENZONATATE 62808488028 Active Marta Tenkum MID LEVEL PROJECT MANAGER Active CHERATUSSIN AC 100-10 MG/5ML SYRP 1 tsp by mouth every 4 hours as needed for cough GUAIFENESIN-CODEINE 18291736422 No Longer Active Irkki Harms PA Active MUPIROCIN 2 % EXT OINT Use in each nostril in am and pm MUPIROCIN 25243295511 No Longer Active Rikki Harms PA Active DOXYCYCLINE HYCLATE 100 MG ORAL CAPS Take one bid DOXYCYCLINE HYCLATE 62001569247 No Longer Active Rikki Harms PA Active CLARITIN 10 MG TABS 1prn LORATADINE 78112428753 No Longer Active Jocelyne Naff SEWAGE DISPOSAL WORKER Active ASPIRIN 81 MG TABS 1qd ASPIRIN 71924014728 No Longer Active Jocelyne Naff SEWAGE DISPOSAL WORKER Active DOXYCYCLINE HYCLATE 100 MG CAP 1 cap by mouth twice daily DOXYCYCLINE HYCLATE 08549533844 No Longer Active Rikki Harms PA Active VITAMIN D3 00321 UNIT CAPS 1 pill by mouth weekly, for vitamin D deficiency CHOLECALCIFEROL 38702013006 No Longer Active Jennifer Chun MD PhD Active ANASTROZOLE 1 MG ORAL TABS Take one by mouth daily ANASTROZOLE 49078948724 Active Jennifer Chun MD PhD Active ZITHROMAX 250 MG TAB 2 po today, then 1 po q days 2-5 AZITHROMYCIN 72502666546 No Longer Active Rikki Harms PA Active MECLIZINE HCL 25 MG TABS 1 prn MECLIZINE HCL 46637445092 No Longer Active Solomon Alamo MD Active CHERATUSSIN AC SYRP prn as directed GUAIFENESIN- CODEINE SYRP 09383962994 No Longer Active Rikki Harms PA Active MULTIVITAMINS TABS 1qd MULTIPLE VITAMIN 41069884034 No Longer Active Rikki Harms PA Active OMEPRAZOLE 20 MG CPDR 1 PO Q D OMEPRAZOLE 54203789706 Active Marta Yokum MID LEVEL PROJECT MANAGER Active ZITHROMAX Z-CAROLYN 250 MG TABS 2x1day,8z4svsb AZITHROMYCIN 90899997371 No Longer Active Jocelyne Lovell SEWAGE DISPOSAL WORKER Active MULTIVITAMINS TABS 1qd MULTIVITAMINS TABS MULTIPLE VITAMIN Inactive CHERATUSSIN AC SYRP prn as directed CHERATUSSIN AC SYRP GUAIFENESIN-CODEINE SYRP Inactive MECLIZINE HCL 25 MG TABS 1 prn MECLIZINE HCL 25 MG TABS 968558 MECLIZINE HCL Inactive ASPIRIN 81 MG TABS 1qd ASPIRIN 81 MG TABS 655130 ASPIRIN Inactive CLARITIN 10 MG TABS 1prn CLARITIN 10 MG TABS 937798 LORATADINE Inactive DOXYCYCLINE HYCLATE 100 MG ORAL CAPS Take one bid DOXYCYCLINE HYCLATE 100 MG ORAL CAPS 1380418 DOXYCYCLINE HYCLATE Inactive MUPIROCIN 2 % EXT OINT Use in each nostril in am and pm MUPIROCIN 2 % EXT OINT 855651 MUPIROCIN Inactive CHERATUSSIN AC 100-10 MG/5ML SYRP 1 tsp by mouth every 4 hours as needed for cough CHERATUSSIN AC 100-10 MG/5ML SYRP 813906 GUAIFENESIN-CODEINE Inactive LEVAQUIN 500 MG TAB 1 tablet by mouth daily LEVAQUIN 500 MG TAB 889399 LEVOFLOXACIN Inactive ZITHROMAX Z-CAROLYN 250 MG TABS 2x1day,2j2nksp ZITHROMAX Z-CAROLYN 250 MG TABS 4826437 AZITHROMYCIN Inactive ZITHROMAX 250 MG TAB 2 po today, then 1 po q days 2-5 ZITHROMAX 250 MG TAB 4668000 AZITHROMYCIN Inactive VITAMIN D3 95678 UNIT CAPS 1 pill by mouth weekly, for vitamin D deficiency VITAMIN D3 44951 UNIT CAPS CHOLECALCIFEROL Inactive DOXYCYCLINE HYCLATE 100 MG CAP 1 cap by mouth twice daily DOXYCYCLINE HYCLATE 100 MG CAP 5747855 DOXYCYCLINE HYCLATE Inactive Vital Signs Date Name [...] % 11.6-14.8 platelet count 222 10^3/MM^3 10*3/mm3 386-544 6714/01/07 leukocyte count, blood 11.7 10^3/MM^3 10*3/mm3 4.6-10.2 [...] % 11.6-14.8 platelet count 191 10^3/MM^3 10*3/mm3 493-647 8340/01/20 leukocyte count, blood 9.8 10^3/MM^3 10*3/mm3 4.6-10.2 [...] % 11.6-14.8 platelet count 195 10^3/MM^3 10*3/mm3 426-376 3514/01/28 leukocyte count, blood 11.9 10^3/MM^3 10*3/mm3 4.6-10.2 [...] % 11.6-14.8 platelet count 278 10^3/MM^3 10*3/mm3 674-595 2091/02/04 leukocyte count, blood 8.5 10^3/MM^3 10*3/mm3 4.6-10.2 [...] % 11.6-14.8 platelet count 326 10^3/MM^3 10*3/mm3 533-637 2855/02/10 leukocyte count, blood 2.3 10^3/MM^3 10*3/mm3 4.6-10.2 [...] % 11.6-14.8 platelet count 240 10^3/MM^3 10*3/mm3 544-097 2790/02/17 leukocyte count, blood 3.4 10^3/MM^3 10*3/mm3 4.6-10.2 [...] % 11.6-14.8 platelet count 308 10^3/MM^3 10*3/mm3 523-072 7458/02/25 leukocyte count, blood 6.6 10^3/MM^3 10*3/mm3 4.6-10.2 [...] % 11.6-14.8 platelet count 433 10^3/MM^3 10*3/mm3 331-561 8908/11/18 leukocyte count, blood 8.5 10^3/MM^3 10*3/mm3 4.6-10.2 [...] % 11.6-14.8 platelet count 143 10^3/MM^3 10*3/mm3 425-099 9205/11/25 leukocyte count, blood 2.1 10^3/MM^3 10*3/mm3 4.6-10.2 [...] % 11.6-14.8 platelet count 139 10^3/MM^3 10*3/mm3 173-846 7927/12/02 leukocyte count, blood 6.7 10^3/MM^3 10*3/mm3 4.6-10.2 [...] % 11.6-14.8 platelet count 258 10^3/MM^3 10*3/mm3 050-027 7941/12/09 leukocyte count, blood 5.3 10^3/MM^3 10*3/mm3 4.6-10.2 [...] % 11.6-14.8 platelet count 240 10^3/MM^3 10*3/mm3 661-933 8141/12/16 leukocyte count, blood 3.2 10^3/MM^3 10*3/mm3 4.6-10.2 [...] % 11.6-14.8 platelet count 158 10^3/MM^3 10*3/mm3 616-533 6159/12/18 leukocyte count, blood 8.8 10^3/MM^3 10*3/mm3 4.6-10.2 [...] % 11.6-14.8 platelet count 207 10^3/MM^3 10*3/mm3 877-558 9566/12/23 leukocyte count, blood 6.2 10^3/MM^3 10*3/mm3 4.6-10.2 [...] % 11.6-14.8 platelet count 183 10^3/MM^3 10*3/mm3 000-090 3163/11/11 leukocyte count, blood 2.0 10^3/MM^3 10*3/mm3 4.6-10.2 [...] % 11.6-14.8 platelet count 203 10^3/MM^3 10*3/mm3 383-581 0539/12/30 leukocyte count, blood 5.2 10^3/MM^3 10*3/mm3 4.6-10.2 [...] Panel - Chemistry sodium, serum 138 mmol/L 507-739 1575/11/04 carbon dioxide, venous blood 27.7 mmol/L 21.0-32.0 potassium, serum 4.9 mmol/L 3.5-5.2 chloride, serum 104 mmol/L 98-107 blood glucose 92 mg/dL 65-110 urea nitrogen, blood 24 mg/dL 7-18 creatinine, serum 0.95 mg/dL 0.55-1.30 alanine aminotransferase (SGPT), serum 34 U/L 12-78 aspartate aminotransferase (SGOT), serum 23 U/L 15-37 calcium, serum 8.9 mg/dL 8.5-10.1 bilirubin, serum, total 0.70 mg/dL 0.00-1.00 sodium, serum 141 mmol/L 315-176 7254/01/14 potassium, serum 4.9 mmol/L 3.5-5.2 chloride, serum [...] % 11.6-14.8 platelet count 216 10^3/MM^3 10*3/mm3 697-204 3967/01/14 leukocyte count, blood 6.7 10^3/MM^3 10*3/mm3 4.6-10.2 [...] Panel - Chemistry sodium, serum 140 mmol/L 379-973 3041/07/13 potassium, serum 4.5 mmol/L 3.5-5.2 chloride, serum 106 mmol/L 98-107 carbon dioxide, venous blood 27.7 mmol/L 21.0-32.0 blood glucose 105 mg/dL 65-110 urea nitrogen, blood 14 mg/dL 7-18 creatinine, serum 0.90 mg/dL 0.60-1.30 alanine aminotransferase (SGPT), serum 29 U/L 12-78 aspartate aminotransferase (SGOT), serum 22 U/L 15-37 calcium, serum 9.4 mg/dL 8.5-10.1 bilirubin, serum, total 0.70 mg/dL 0.00-1.00 cholesterol, serum 160 mg/dL 561-599 2170/07/13 triglyceride, serum, fasting 63 mg/dL 30-200 HDL [...] Panel - Chemistry sodium, serum 141 mmol/L 524-938 0989/02/10 potassium, serum 5.2 mmol/L 3.5-5.2 chloride, serum 106 mmol/L 98-107 carbon dioxide, venous blood 27.8 mmol/L 21.0-32.0 blood glucose 111 mg/dL 65-110 urea nitrogen, blood 18 mg/dL 7-18 creatinine, serum 0.90 mg/dL 0.60-1.30 alanine aminotransferase (SGPT), serum 29 U/L 12-78 aspartate aminotransferase (SGOT), serum 21 U/L 15-37 calcium, serum 8.3 mg/dL 8.5-10.1 bilirubin, serum, total 0.40 mg/dL 0.00-1.00 sodium, serum 143 mmol/L 791-249 9925/12/23 carbon dioxide, venous blood 24.6 mmol/L 21.0-32.0 potassium, serum 4.1 mmol/L 3.5-5.2 chloride, serum 107 mmol/L 98-107 blood glucose 98 mg/dL 65-110 urea nitrogen, blood 22 mg/dL 7-18 creatinine, serum 0.77 mg/dL 0.55-1.30 alanine aminotransferase (SGPT), serum 28 U/L aspartate aminotransferase (SGOT), serum 20 U/L 15-37 calcium, serum 8.6 mg/dL 8.5-10.1 bilirubin, serum, total 0.30 mg/dL 0.00-1.00 sodium, serum 142 mmol/L 672-928 8043/12/09 carbon dioxide, venous blood 28.5 mmol/L 21.0-32.0 potassium, serum 5.0 mmol/L 3.5-5.2 chloride, serum 109 mmol/L 98-107 blood glucose 91 mg/dL 65-110 urea nitrogen, blood 27 mg/dL 7-18 creatinine, serum 0.88 mg/dL 0.55-1.30 alanine aminotransferase (SGPT), serum 31 U/L aspartate aminotransferase (SGOT), serum 18 U/L 15-37 calcium, serum 8.9 mg/dL 8.5-10.1 bilirubin, serum, total 0.40 mg/dL 0.00-1.00 sodium, serum 140 mmol/L 727-058 0400/12/16 carbon dioxide, venous blood 25.4 mmol/L 21.0-32.0 potassium, serum 4.1 mmol/L 3.5-5.2 chloride, serum 104 mmol/L 98-107 blood glucose 110 mg/dL 65-110 urea nitrogen, blood 24 mg/dL 7-18 creatinine, serum 0.87 mg/dL 0.55-1.30 alanine aminotransferase (SGPT), serum 35 U/L aspartate aminotransferase (SGOT), serum 21 U/L 15-37 calcium, serum 8.4 mg/dL 8.5-10.1 bilirubin, serum, total 0.50 mg/dL 0.00-1.00 sodium, serum 141 mmol/L 664-321 7020/12/02 carbon dioxide, venous blood 25.9 mmol/L 21.0-32.0 potassium, serum 4.7 mmol/L 3.5-5.2 chloride, serum 106 mmol/L 98-107 blood glucose 78 mg/dL 65-110 urea nitrogen, blood 24 mg/dL 7-18 creatinine, serum 0.75 mg/dL 0.55-1.30 alanine aminotransferase (SGPT), serum 31 U/L aspartate aminotransferase (SGOT), serum 20 U/L -37 calcium, serum 8.7 mg/dL 8.5-10.1 bilirubin, serum, total 0.30 mg/dL 0.00-1.00 sodium, serum 141 mmol/L 377-257 7263/11/18 carbon dioxide, venous blood 26.2 mmol/L 21.0-32.0 potassium, serum 4.4 mmol/L 3.5-5.2 chloride, serum 106 mmol/L 98-107 blood glucose 102 mg/dL 65-110 urea nitrogen, blood 24 mg/dL 7-18 creatinine, serum 0.77 mg/dL 0.55-1.30 alanine aminotransferase (SGPT), serum 30 U/L aspartate aminotransferase (SGOT), serum 15 U/L - calcium, serum 8.3 mg/dL 8.5-10.1 bilirubin, serum, total 0.30 mg/dL 0.00-1.00 sodium, serum 139 mmol/L 656-740 9211/11/25 carbon dioxide, venous blood 27.9 mmol/L 21.0-32.0 potassium, serum 4.7 mmol/L 3.5-5.2 chloride, serum 105 mmol/L 98-107 blood glucose 94 mg/dL 65-110 urea nitrogen, blood 21 mg/dL 7-18 creatinine, serum 0.79 mg/dL 0.55-1.30 alanine aminotransferase (SGPT), serum 40 U/L -78 aspartate aminotransferase (SGOT), serum 22 U/L 15-37 calcium, serum 8.5 mg/dL 8.5-10.1 bilirubin, serum, total 0.80 mg/dL 0.00-1.00 sodium, serum 139 mmol/L 153-663 6402/12/30 carbon dioxide, venous blood 28.2 mmol/L 21.0-32.0 potassium, serum 3.9 mmol/L 3.5-5.2 chloride, serum 105 mmol/L 98-107 blood glucose 91 mg/dL 65-110 urea nitrogen, blood 17 mg/dL 7-18 creatinine, serum 0.81 mg/dL 0.55-1.30 alanine aminotransferase (SGPT), serum 29 U/L 78 aspartate aminotransferase (SGOT), serum 22 U/L 15-37 calcium, serum 8.8 mg/dL 8.5-10.1 bilirubin, serum, total 0.50 mg/dL 0.00-1.00 sodium, serum 141 mmol/L 809-999 5846/11/11 carbon dioxide, venous blood 26.8 mmol/L 21.0-32.0 potassium, serum 4.2 mmol/L 3.5-5.2 chloride, serum 106 mmol/L 98-107 blood glucose 95 mg/dL 65-110 urea nitrogen, blood 18 mg/dL 7-18 creatinine, serum 0.70 mg/dL 0.55-1.30 alanine aminotransferase (SGPT), serum 33 U/L 12-78 aspartate aminotransferase (SGOT), serum 22 U/L 15-37 calcium, serum 8.5 mg/dL 8.5-10.1 bilirubin, serum, total 0.30 mg/dL 0.00-1.00 Lab Report: VITAMIN D, 25-HYDROXY/39312 - Chemistry vitamin D 25-hydroxy, serum 24 ng/mL 30-100 Encounters Code Encounter Date Provider Facility CPT-39328 Level 2 Est. Patient 14:30:43 SENIOR MEDICAL WRITER Marta Viramontes [facility] CPT-03656 Level 4 Est. Patient 09:14:36 SENIOR MEDICAL WRITER Rikki GRANADOS [facility] [place] CPT-87833 Level 2 Est. Patient 09:07:32 CDT Marta Viramontes [facility] CPT-98345 Level 4 Est. Patient 11:55:00 CDT Rikki GRANADOS [facility] [place] CPT-59447 Level 3 Est. Patient 13:25:16 CDT Jennifer Chun MD PhD [facility] CPT-10487 Level 3 Est. Patient 17:31:22 CDT Solomon Alamo MD [facility] CPT-22653 Level 3 Est. Patient 08:02:14 CDT Solomon Alamo MD [facility] CPT-32291 Level 3 Est. Patient 17:23:53 CDT Rikki GRANADOS [facility] [place] CPT-87341 Level 3 Est. Patient 11:22:41 CDT Darryn Hearn [facility] Procedures Code Procedure Name Date Entry Date Standard Description CPT-21147 Venipuncture Draw Fee 09:22:28 SENIOR MEDICAL WRITER CPT-96601 Chest 2V Frontal and Lat 09:22:27 SENIOR MEDICAL WRITER CPT-I/D I/D Abscess 09:43:13 CDT CPT-40507 Venipuncture Draw Fee 08:16:46 SENIOR MEDICAL WRITER CPT-75423 Venipuncture Draw Fee 08:18:55 SENIOR MEDICAL WRITER CPT-12664 Venipuncture Draw Fee 08:31:18 SENIOR MEDICAL WRITER CPT-00298 Venipuncture Draw Fee 11:42:52 SENIOR MEDICAL WRITER CPT-13140 Venipuncture Draw Fee 13:26:37 SENIOR MEDICAL WRITER CPT-76708 Venipuncture Draw Fee 09:23:38 SENIOR MEDICAL WRITER CPT-000 Give Appropriate Tetanus Booster 10:23:50 CDT CPT-78633 Bone Density 08:28:45 CDT CPT-54226 Bone Density 11:35:15 CDT CPT-PV Prev. Care Visit 12:19:00 CDT CPT-59609 Venipuncture Draw Fee 15:02:58 CDT
[2018-01-19] MEDS ORDERED: LACTATED RINGERS 1,000 ML IV PRN (06:53)
--- OUTSIDE RECORDS SUMMARY | 2018-01-19 06:53 | XMS REPORT | Clinical Summary ---
Author Author Admin, E Organization [facility] Address Unknown Phone Unavailable Allergies, Adverse Reactions, Alerts Allergy Name Reaction Description Start Date Severity Status Provider SULFA facial swelling Critical Active Jocelyne Naff BOOK MENDER Conditions or Problems Problem Name Problem Code Onset Date Status Entry Date Provider Comment Standard Description Annotate G E R D 530.81 Active Jocelyne Naff BOOK MENDER Esophageal reflux FH COLON CANCER V16.0 Active Jocelyne Naff BOOK MENDER Family history of malignant neoplasm of gastrointestinal [...] GRANADOS Cellulitis and abscess of unspecified sites Breast microcalcification ICD-793.81 Inactive Jennifer Chun MD PhD Abnormal Mammogram ICD-793.80 Inactive Jennifre Chun MD PhD Medication List Medication Instructions Start Date Stop Date Generic Name NDC Status Provider Patient Instruction DOXYCYCLINE HYCLATE 100 MG CAP 1 cap by mouth twice daily DOXYCYCLINE HYCLATE 08042042625 Active Rikki GRANADOS Active VITAMIN D3 09086 UNIT CAPS 1 pill by mouth weekly, for vitamin D deficiency CHOLECALCIFEROL 74683156745 Active Jennifer Chun MD PhD Active ANASTROZOLE 1 MG ORAL TABS Take one by mouth daily ANASTROZOLE 89673278688 Active Jennifer Chun MD PhD Active ZITHROMAX 250 MG TAB 2 po today, then 1 po q days 2-5 AZITHROMYCIN 75839244994 No Longer Active Rikki Daryn GRANADOS Active MECLIZINE HCL 25 MG TABS 1 prn MECLIZINE HCL 71412412579 No Longer Active Solomon Alamo MD Active CHERATUSSIN AC SYRP prn as directed GUAIFENESIN- CODEINE SYRP 94210791655 No Longer Active Rikki Daryn PA Active MULTIVITAMINS TABS 1qd MULTIPLE VITAMIN 99150511314 No Longer Active Rikki Daryn PA Active CLARITIN 10 MG TABS 1prn LORATADINE 70346978228 Active Jocelyne Naff BOOK MENDER Active ASPIRIN 81 MG TABS 1qd ASPIRIN 30504211755 Active Jocelyne Naff BOOK MENDER Active OMEPRAZOLE 20 MG CPDR 1 PO Q D OMEPRAZOLE 26312037763 Active Rikki Daryn PA Active ZITHROMAX Z-CAROLYN 250 MG TABS 2x1day,7v1bizi AZITHROMYCIN 25435903609 No Longer Active Jocelyne Lovell BOOK MENDER Active MULTIVITAMINS TABS 1qd MULTIVITAMINS TABS MULTIPLE VITAMIN Inactive CHERATUSSIN AC SYRP prn as directed CHERATUSSIN AC SYRP GUAIFENESIN-CODEINE SYRP Inactive MECLIZINE HCL 25 MG TABS 1 prn MECLIZINE HCL 25 MG TABS 762322 MECLIZINE HCL Inactive ZITHROMAX Z-CAROLYN 250 MG TABS 2x1day,3g1sojr ZITHROMAX Z-CAROLYN 250 MG TABS 4417574 AZITHROMYCIN Inactive ZITHROMAX 250 MG TAB 2 po today, then 1 po q days 2-5 ZITHROMAX 250 MG TAB 6148358 AZITHROMYCIN Inactive Vital Signs Date Name Value Unit Range Description blood pressure, diastolic - 8462-4 82 mm[Hg] [...] % 11.6-14.8 platelet count 131 10^3/MM^3 10*3/mm3 567-746 1871/12/12 leukocyte count, blood 28.6 10^3/MM^3 10*3/mm3 4.6-10.2 [...] % 11.6-14.8 platelet count 237 10^3/MM^3 10*3/mm3 757-073 8923/12/23 leukocyte count, blood 6.9 10^3/MM^3 10*3/mm3 4.6-10.2 [...] % 11.6-14.8 platelet count 360 10^3/MM^3 10*3/mm3 385-799 7341/12/31 leukocyte count, blood 5.3 10^3/MM^3 10*3/mm3 4.6-10.2 [...] % 11.6-14.8 platelet count 222 10^3/MM^3 10*3/mm3 446-666 8711/01/07 leukocyte count, blood 11.7 10^3/MM^3 10*3/mm3 4.6-10.2 [...] % 11.6-14.8 platelet count 191 10^3/MM^3 10*3/mm3 835-313 5483/01/20 leukocyte count, blood 9.8 10^3/MM^3 10*3/mm3 4.6-10.2 [...] % 11.6-14.8 platelet count 195 10^3/MM^3 10*3/mm3 168-481 5570/01/28 leukocyte count, blood 11.9 10^3/MM^3 10*3/mm3 4.6-10.2 [...] % 11.6-14.8 platelet count 278 10^3/MM^3 10*3/mm3 462-330 7806/02/04 leukocyte count, blood 8.5 10^3/MM^3 10*3/mm3 4.6-10.2 [...] % 11.6-14.8 platelet count 326 10^3/MM^3 10*3/mm3 096-371 6236/02/10 leukocyte count, blood 2.3 10^3/MM^3 10*3/mm3 4.6-10.2 [...] % 11.6-14.8 platelet count 240 10^3/MM^3 10*3/mm3 580-941 0205/02/17 leukocyte count, blood 3.4 10^3/MM^3 10*3/mm3 4.6-10.2 [...] % 11.6-14.8 platelet count 308 10^3/MM^3 10*3/mm3 599-942 9648/02/25 leukocyte count, blood 6.6 10^3/MM^3 10*3/mm3 4.6-10.2 [...] Panel - Chemistry sodium, serum 144 mmol/L 811-592 3303/12/16 potassium, serum 4.5 mmol/L 3.5-5.2 chloride, serum 107 mmol/L 98-107 carbon dioxide, venous blood 31.4 mmol/L 21.0-32.0 blood glucose 104 mg/dL 65-110 urea nitrogen, blood 17 mg/dL 7-18 creatinine, serum 1.10 mg/dL 0.60-1.30 alanine aminotransferase (SGPT), serum 25 U/L 12-78 aspartate aminotransferase (SGOT), serum 24 U/L 15-37 calcium, serum 8.4 mg/dL 8.5-10.1 bilirubin, serum, total 0.20 mg/dL 0.00-1.00 sodium, serum 141 mmol/L 272-309 2296/01/14 potassium, serum 4.9 mmol/L 3.5-5.2 chloride, serum [...] % 11.6-14.8 platelet count 376 10^3/MM^3 10*3/mm3 555-430 9235/12/16 leukocyte count, blood 19.5 10^3/MM^3 10*3/mm3 4.6-10.2 [...] Panel - Chemistry sodium, serum 140 mmol/L 448-562 9877/07/13 potassium, serum 4.5 mmol/L 3.5-5.2 chloride, serum 106 mmol/L 98-107 carbon dioxide, venous blood 27.7 mmol/L 21.0-32.0 blood glucose 105 mg/dL 65-110 urea nitrogen, blood 14 mg/dL 7-18 creatinine, serum 0.90 mg/dL 0.60-1.30 alanine aminotransferase (SGPT), serum 29 U/L 12-78 aspartate aminotransferase (SGOT), serum 22 U/L 15-37 calcium, serum 9.4 mg/dL 8.5-10.1 bilirubin, serum, total 0.70 mg/dL 0.00-1.00 cholesterol, serum 160 mg/dL 036-807 6251/07/13 triglyceride, serum, fasting 63 mg/dL 30-200 HDL [...] Panel - Chemistry sodium, serum 141 mmol/L 653-711 7758/02/10 potassium, serum 5.2 mmol/L 3.5-5.2 chloride, serum 106 mmol/L 98-107 carbon dioxide, venous blood 27.8 mmol/L 21.0-32.0 blood glucose 111 mg/dL 65-110 urea nitrogen, blood 18 mg/dL 7-18 creatinine, serum 0.90 mg/dL 0.60-1.30 alanine aminotransferase (SGPT), serum 29 U/L 12-78 aspartate aminotransferase (SGOT), serum 21 U/L 15-37 calcium, serum 8.3 mg/dL 8.5-10.1 bilirubin, serum, total 0.40 mg/dL 0.00-1.00 Lab Report: VITAMIN D, 25-HYDROXY/31919 - Chemistry vitamin D 25-hydroxy, serum 24 ng/mL 30-100 Encounters Code Encounter Date Provider Facility CPT-56694 Level 3 Est. Patient 13:25:16 CDT Jennifer Chun MD PhD [facility] CPT-37819 Level 3 Est. Patient 17:31:22 CDT Solomon Alamo MD [facility] CPT-21031 Level 3 Est. Patient 08:02:14 CDT Solomon Alamo MD [facility] CPT-82442 Level 3 Est. Patient 17:23:53 CDT Rikki Stearns [facility] CPT-93205 Level 3 Est. Patient 11:22:41 CDT Darryn Hearn [facility] Procedures Code Procedure Name Date Entry Date Standard Description CPT-I/D I/D Abscess 09:43:13 CDT CPT-40366 Venipuncture Draw Fee 08:16:46 EMR TRAINER CPT-14701 Venipuncture Draw Fee 08:18:55 EMR TRAINER CPT-44771 Venipuncture Draw Fee 08:31:18 EMR TRAINER CPT-99717 Venipuncture Draw Fee 11:42:52 EMR TRAINER CPT-48183 Venipuncture Draw Fee 13:26:37 EMR TRAINER CPT-75700 Venipuncture Draw Fee 09:23:38 EMR TRAINER CPT-000 Give Appropriate Tetanus Booster 10:23:50 CDT CPT-15921 Bone Density 08:28:45 CDT CPT-66082 Bone Density 11:35:15 CDT CPT-PV Prev. Care Visit 12:19:00 CDT CPT-37600 Venipuncture Draw Fee 15:02:58 CDT
--- OUTSIDE RECORDS SUMMARY | 2018-01-19 06:53 | XMS REPORT | Clinical Summary ---
Author Author Admin, E Organization [facility] [email or web address] Address Unknown Phone Unavailable Allergies, Adverse Reactions, Alerts Allergy Name Reaction Description Start Date Severity Status Provider SULFA facial swelling Critical Active Jocelyne Naff TAPE RECORDER MECHANIC Conditions or Problems Problem Name Problem Code Onset Date Status Entry Date Provider Comment Standard Description Annotate G E R D 530.81 Active Jocelyne Naff TAPE RECORDER MECHANIC Esophageal reflux FH COLON CANCER V16.0 Active Jocelyne Naff TAPE RECORDER MECHANIC Family history of malignant neoplasm of [...] Ingrown toenail, left 703.0 Resolved Marta Yokum DIRECTOR TELEHEALTH Ingrowing nail cellulitis, finger, right 681.00 Active Marta Yokum DIRECTOR TELEHEALTH Cellulitis and abscess of finger, unspecified Cough 786.2 Active Marta Yokum DIRECTOR TELEHEALTH Cough Breast microcalcification ICD-793.81 Inactive Jennifer Chun [...] DARWIN Ingrown toenail, left ICD-703.0 Inactive Martacarlos Viramontes [place] Medication List Medication Instructions Start Date Stop Date Generic Name NDC Status Provider Patient Instruction AUGMENTIN 875-125 MG TAB 1 po BID x 10 days AMOXICILLIN-POT CLAVULANATE 28265181918 Active Marta Yokum DIRECTOR TELEHEALTH Active MEDROL (CAROLYN) 4 MG TABS 6 tabs on day 1, 5 tabs on day 2, 4 tabs on day 3, 3 tabs on day 4, 2 tabs on day 5, 1 tab on day 6 METHYLPREDNISOLONE 44389493513 No Longer Active Marta Yokum DIRECTOR TELEHEALTH Active TESSALON PERLES 100 MG CAP 1 to 2 tablets by mouth 3 times daily as needed for cough BENZONATATE 45544264724 Active Marta Yokum DIRECTOR TELEHEALTH Active TUSSIONEX PENNKINETIC ER 10-8 MG/5ML LQCR 5ml po q12hr PRN Cough HYDROCOD POLST-CHLORPHEN POLST 53728951831 Active Marta Yokum DIRECTOR TELEHEALTH Active KEFLEX 500 MG CAP 1 po qid CEPHALEXIN 27531120058 No Longer Active Marta Yokum DIRECTOR TELEHEALTH Active B COMPLEX 50 ORAL CR-TABS B COMPLEX VITAMINS 51917118796 Active Marta Viramontes APRN Active TUSSIONEX PENNKINETIC ER 10-8 MG/5ML LQCR 5ml po q12hr PRN Cough HYDROCOD POLST-CHLORPHEN POLST 45042684301 No Longer Active Marta Viramontes APRN Active VITAMIN D3 24513 UNIT CAPS 1 qWeek x 4 months for vitamin D deficiency 04/09 CHOLECALCIFEROL 34836167523 Active Marta Viramontes DIRECTOR TELEHEALTH Active CEPHALEXIN 500 MG ORAL CAPS Take one four times a day CEPHALEXIN 98897912405 No Longer Active Marta Viramontes DIRECTOR TELEHEALTH Active BIOTIN 1000 MCG ORAL TABS Take one daily BIOTIN 17617266154 Active Rikki Harms PA Active VITAMIN C 500 MG ORAL CAPS Take one daily ASCORBIC ACID 03427665129 Active Rikki Harms PA Active BENZONATATE 200 MG ORAL CAPS One capsule tid. BENZONATATE 89777512147 No Longer Active Irkki Harms PA Active FLONASE ALLERGY RELIEF 50 MCG/ACT NASAL SUSP spray twice in each nostril one time daily FLUTICASONE PROPIONATE 49189999960 No Longer Active Rikki Harms PA Active TUSSIONEX PENNKINETIC ER 10-8 MG/5ML LQCR 5ml po q12hr PRN Cough HYDROCOD POLST-CHLORPHEN POLST 50396141579 No Longer Active Rikki Harms PA Active NIACIN ER 500 MG ORAL CR-TABS Take one twice daily NIACIN 27968926226 Active Rikki Harms PA Active ALBUTEROL SULFATE 0.083 % NEBU SOLBarbra one vial per nebulizer every 4-6 hours as needed ALBUTEROL SULFATE 05614880645 No Longer Active Rikki Harms PA Active MEDROL (CAROLYN) 4 MG TABS 6 tabs on day 1, 5 tabs on day 2, 4 tabs on day 3, 3 tabs on day 4, 2 tabs on day 5, 1 tab on day 6 METHYLPREDNISOLONE 77336660875 No Longer Active Rikki Harms PA Active LEVAQUIN 750 MG TABS 1 po qd x 7 days LEVOFLOXACIN 60299949139 No Longer Active Rikki Harms PA Active LEVAQUIN 500 MG ORAL TABS Take one tablet daily LEVOFLOXACIN 51140028565 No Longer Active Rikki Harms PA Active PROAIR HFA 108 (90 BASE) MCG/ACT AERS 2 puffs four times a day as needed 2014 ALBUTEROL SULFATE 18280825306 Active Marta Yokum DIRECTOR TELEHEALTH Active LEVAQUIN 500 MG TAB 1 tablet by mouth daily LEVOFLOXACIN 43390860043 No Longer Active Marta Yokum DIRECTOR TELEHEALTH Active CHERATUSSIN AC 100-10 MG/5ML SYRP 1 tsp by mouth every 4 hours as needed for cough GUAIFENESIN-CODEINE 17455844007 No Longer Active Rikki Harms PA Active MUPIROCIN 2 % EXT OINT Use in each nostril in am and pm MUPIROCIN 26074789784 No Longer Active Rikki Harms PA Active DOXYCYCLINE HYCLATE 100 MG ORAL CAPS Take one bid DOXYCYCLINE HYCLATE 96600895816 No Longer Active Rikki Harms PA Active CLARITIN 10 MG TABS 1prn LORATADINE 80881793886 No Longer Active Jocelyne Naff TAPE RECORDER MECHANIC Active ASPIRIN 81 MG TABS 1qd ASPIRIN 97339317603 No Longer Active Jocelyne Naff TAPE RECORDER MECHANIC Active DOXYCYCLINE HYCLATE 100 MG CAP 1 cap by mouth twice daily DOXYCYCLINE HYCLATE 04500777015 No Longer Active Rikki Harms PA Active VITAMIN D3 38474 UNIT CAPS 1 pill by mouth weekly, for vitamin D deficiency CHOLECALCIFEROL 10697763138 No Longer Active Jennifer Chun MD PhD Active ANASTROZOLE 1 MG ORAL TABS Take one by mouth daily ANASTROZOLE 72553327266 Active Jennifer Chun MD PhD Active ZITHROMAX 250 MG TAB 2 po today, then 1 po q days 2-5 AZITHROMYCIN 09262568677 No Longer Active Rikki Harms PA Active MECLIZINE HCL 25 MG TABS 1 prn MECLIZINE HCL 62479984478 No Longer Active Solomon Alamo MD Active CHERATUSSIN AC SYRP prn as directed GUAIFENESIN- CODEINE SYRP 62122295687 No Longer Active Rikki Harms PA Active MULTIVITAMINS TABS 1qd MULTIPLE VITAMIN 84350289489 No Longer Active Rikki Harms PA Active OMEPRAZOLE 20 MG CPDR 1 PO Q D OMEPRAZOLE 92309326634 Active Jocelyne Naff TAPE RECORDER MECHANIC Active ZITHROMAX Z-CAROLYN 250 MG TABS 2x1day,4h4nnnh AZITHROMYCIN 19338311956 No Longer Active Jocelyne Naff TAPE RECORDER MECHANIC Active MULTIVITAMINS TABS 1qd MULTIVITAMINS TABS MULTIPLE VITAMIN Inactive CHERATUSSIN AC SYRP prn as directed CHERATUSSIN AC SYRP GUAIFENESIN-CODEINE SYRP Inactive MECLIZINE HCL 25 MG TABS 1 prn MECLIZINE HCL 25 MG TABS 184763 MECLIZINE HCL Inactive ASPIRIN 81 MG TABS 1qd ASPIRIN 81 MG TABS ASPIRIN Inactive CLARITIN 10 MG TABS 1prn CLARITIN 10 MG TABS 320263 LORATADINE Inactive DOXYCYCLINE HYCLATE 100 MG ORAL CAPS Take one bid DOXYCYCLINE HYCLATE 100 MG ORAL CAPS 4868062 DOXYCYCLINE HYCLATE Inactive MUPIROCIN 2 % EXT OINT Use in each nostril in am and pm MUPIROCIN 2 % EXT OINT 127653 MUPIROCIN Inactive CHERATUSSIN AC 100-10 MG/5ML SYRP 1 tsp by mouth every 4 hours as needed for cough CHERATUSSIN AC 100-10 MG/5ML SYRP 875502 GUAIFENESIN-CODEINE Inactive LEVAQUIN 500 MG TAB 1 tablet by mouth daily LEVAQUIN 500 MG TAB 248550 LEVOFLOXACIN Inactive LEVAQUIN 500 MG ORAL TABS Take one tablet daily LEVAQUIN 500 MG ORAL TABS 036017 LEVOFLOXACIN Inactive LEVAQUIN 750 MG TABS 1 po qd x 7 days LEVAQUIN 750 MG TABS 713050 LEVOFLOXACIN Inactive ALBUTEROL SULFATE 0.083 % NEBU SOLN one vial per nebulizer every 4-6 hours as needed ALBUTEROL SULFATE 0.083 % NEBU SOLN 468842 ALBUTEROL SULFATE Inactive TUSSIONEX PENNKINETIC ER 10-8 MG/5ML LQCR 5ml po q12hr PRN Cough TUSSIONEX PENNKINETIC ER 10-8 MG/5ML LQCR HYDROCOD POLST- CHLORPHEN POLST Inactive FLONASE ALLERGY RELIEF 50 MCG/ACT NASAL SUSP spray twice in each nostril one time daily FLONASE ALLERGY RELIEF 50 MCG/ACT NASAL SUSP 8223985 FLUTICASONE PROPIONATE Inactive BENZONATATE 200 MG ORAL CAPS One capsule tid. BENZONATATE 200 MG ORAL CAPS 352589 BENZONATATE Inactive CEPHALEXIN 500 MG ORAL CAPS Take one four times a day CEPHALEXIN 500 MG ORAL CAPS 940352 CEPHALEXIN Inactive TUSSIONEX PENNKINETIC ER 10-8 MG/5ML LQCR 5ml po q12hr PRN Cough TUSSIONEX PENNKINETIC ER 10-8 MG/5ML LQCR HYDROCOD POLST- CHLORPHEN POLST Inactive ZITHROMAX Z-CAROLYN 250 MG TABS 2x1day,0s9fnap ZITHROMAX Z-CAROLYN 250 MG TABS 5738120 AZITHROMYCIN Inactive ZITHROMAX 250 MG TAB 2 po today, then 1 po q days 2-5 ZITHROMAX 250 MG TAB 7141893 AZITHROMYCIN Inactive VITAMIN D3 82571 UNIT CAPS 1 pill by mouth weekly, for vitamin D deficiency VITAMIN D3 41788 UNIT CAPS CHOLECALCIFEROL Inactive DOXYCYCLINE HYCLATE 100 MG CAP 1 cap by mouth twice daily DOXYCYCLINE HYCLATE 100 MG CAP 9246921 DOXYCYCLINE HYCLATE Inactive MEDROL (CAROLYN) 4 MG TABS 6 tabs on day 1, 5 tabs on day 2, 4 tabs on day 3, 3 tabs on day 4, 2 tabs on day 5, 1 tab on day 6 MEDROL ( CAROLYN) 4 MG TABS 629156 METHYLPREDNISOLONE Inactive KEFLEX 500 MG CAP 1 po qid KEFLEX 500 MG CAP 742936 CEPHALEXIN Inactive MEDROL (CAROLYN) 4 MG TABS 6 tabs on day 1, 5 tabs on day 2, 4 tabs on day 3, 3 tabs on day 4, 2 tabs on day 5, 1 tab on day 6 MEDROL ( CAROLYN) 4 MG TABS 181778 METHYLPREDNISOLONE Inactive Vital Signs Date Name Value [...] Panel - Chemistry sodium, serum 142 mmol/L 474-560 1883/07/25 potassium, serum 4.0 mmol/L 3.5-5.2 chloride, serum 107 mmol/L 98-107 carbon dioxide, venous blood 31.6 mmol/L 21.0-32.0 blood glucose 108 mg/dL 65-110 calcium, serum 9.2 mg/dL 8.5-10.1 urea nitrogen, blood 20 mg/dL 7-18 creatinine, serum 0.92 mg/dL 0.55-1.30 sodium, serum 141 mmol/L 916-687 5112/11/11 potassium, serum 4.2 mmol/L 3.5-5.2 chloride, serum 106 mmol/L 98-107 carbon dioxide, venous blood 29.1 mmol/L 21.0-32.0 blood glucose 95 mg/dL 65-110 calcium, serum 8.6 mg/dL 8.5-10.1 urea nitrogen, blood 23 mg/dL 7-18 creatinine, serum 0.83 mg/dL 0.55-1.30 Lab Report: Lipid Panel, Thyroid Stimulating Hormone (L) - Chemistry cholesterol, serum 177 mg/dL 105-807 2712/10/31 triglyceride, serum, fasting 64 mg/dL 30-200 HDL cholesterol, serum 77 mg/dL 32-96 LDL cholesterol, serum 87 mg/dL 0-130 TSH 2.13 m[iU]/mL 0.36-3.74 Lab Report: VITAMIN D, 25-HYDROXY/62691 - Chemistry vitamin D 25-hydroxy, serum 25 ng/mL 30-100 Encounters Code Encounter Date Provider Facility CPT-44103 Level 3 Est. Patient 16:07:34 CDT Marta Viramontes [facility] CPT-51112 Level 3 Est. Patient 15:39:01 CDT Marta Viramontes [facility] CPT-29068 Level 4 Est. Patient 17:31:07 CDT Marta Viramontes [facility] CPT-88321 Level 3 Est. Patient 05:11:40 CDT Rikki GRANADOS [facility] CPT-85237 Level 2 Est. Patient 14:30:43 ENROLLMENT SERVICES VICE PRESIDENT Marta Ana M [facility] CPT-75866 Level 4 Est. Patient 09:14:36 ENROLLMENT SERVICES VICE PRESIDENT Rikki GRANADOS [facility] CPT-02227 Level 2 Est. Patient 09:07:32 CDT Marta Viramontes [facility] CPT-96715 Level 4 Est. Patient 11:55:00 CDT Rikki GRANADOS [facility] CPT-50941 Level 3 Est. Patient 13:25:16 CDT Jennifer Chun MD [facility] CPT-26597 Level 3 Est. Patient 17:31:22 CDT Solomon Alamo MD [facility] CPT-91795 Level 3 Est. Patient 08:02:14 CDT Solomon Alamo MD [facility] CPT-30256 Level 3 Est. Patient 17:23:53 CDT Rikki GRANADOS [facility] CPT-89401 Level 3 Est. Patient 11:22:41 CDT Darryn Hearn [facility] Procedures Code Procedure Name Date Entry Date Standard Description CPT-00242 Venipuncture Draw Fee 12:43:48 ENROLLMENT SERVICES VICE PRESIDENT CPT-90994 BMP - LAB USE ONLY 10:32:33 ENROLLMENT SERVICES VICE PRESIDENT CPT-89932 Venipuncture Draw Fee 10:32:33 ENROLLMENT SERVICES VICE PRESIDENT CPT-90033 Magnesium - LAB USE ONLY 09:54:30 CDT CPT-54069 TSH - LAB USE ONLY 09:54:30 CDT CPT-52974 Lipid - LAB USE ONLY 09:54:30 CDT CPT-15252 Venipuncture Draw Fee 09:54:29 CDT CPT-06604 Venipuncture Draw Fee 18:27:04 CDT CPT-40261 Chest 2V Frontal and Lat 10:57:00 ENROLLMENT SERVICES VICE PRESIDENT CPT-50789 Venipuncture Draw Fee 10:56:59 ENROLLMENT SERVICES VICE PRESIDENT CPT-01201 Venipuncture Draw Fee 09:22:28 ENROLLMENT SERVICES VICE PRESIDENT CPT-85090 Chest 2V Frontal and Lat 09:22:27 ENROLLMENT SERVICES VICE PRESIDENT CPT-I/D I/D Abscess 09:43:13 CDT CPT-91441 Venipuncture Draw Fee 08:16:46 ENROLLMENT SERVICES VICE PRESIDENT CPT-00280 Venipuncture Draw Fee 08:18:55 ENROLLMENT SERVICES VICE PRESIDENT CPT-37000 Venipuncture Draw Fee 08:31:18 ENROLLMENT SERVICES VICE PRESIDENT CPT-76054 Venipuncture Draw Fee 11:42:52 ENROLLMENT SERVICES VICE PRESIDENT CPT-71269 Venipuncture Draw Fee 13:26:37 ENROLLMENT SERVICES VICE PRESIDENT CPT-50828 Venipuncture Draw Fee 09:23:38 ENROLLMENT SERVICES VICE PRESIDENT CPT-000 Give Appropriate Tetanus Booster 10:23:50 CDT CPT-27378 Bone Density 08:28:45 CDT CPT-56783 Bone Density 11:35:15 CDT CPT-PV Prev. Care Visit 12:19:00 CDT CPT-13742 Venipuncture Draw Fee 15:02:58 CDT
--- OUTSIDE RECORDS SUMMARY | 2018-01-19 06:54 | XMS REPORT | Clinical Summary ---
Author Author Admin, E Organization [facility] Address Unknown Phone Unavailable Allergies, Adverse Reactions, Alerts Allergy Name Reaction Description Start Date Severity Status Provider SULFA facial swelling Critical Active Jocelyne Naff SEARCH ENGINEER Conditions or Problems Problem Name Problem Code Onset Date Status Entry Date Provider Comment Standard Description Annotate G E R D 530.81 Active Jocelyne Naff SEARCH ENGINEER Esophageal reflux FH COLON CANCER V16.0 Active Jocelyne Naff SEARCH ENGINEER Family history of malignant neoplasm of gastrointestinal tract ESOPHAGEAL STRICTURE 530.3 Active Darryn Hearn PA Stricture and stenosis of esophagus CAROTID ARTERY STENOSIS, RIGHT 433.10 Active Rikki Stearns PA Occlusion and stenosis of carotid artery, without mention of cerebral infarction HEALTH SCREENING V70.0 Active Rose Darnell SEARCH ENGINEER Routine general medical examination at a health [...] each nostril in am and pm MUPIROCIN 21283899273 Active Jocelyne Naff SEARCH ENGINEER Active CLARITIN 10 MG TABS 1prn LORATADINE 22633822197 No Longer Active Jocelyne Naff SEARCH ENGINEER Active ASPIRIN 81 MG TABS 1qd ASPIRIN 63742144288 No Longer Active Jocelyne Naff SEARCH ENGINEER Active DOXYCYCLINE HYCLATE 100 MG ORAL CAPS Take one bid DOXYCYCLINE HYCLATE 12328653756 Active Jocelyne Naff SEARCH ENGINEER Active DOXYCYCLINE HYCLATE 100 MG CAP 1 cap by mouth twice daily DOXYCYCLINE HYCLATE 04133533164 No Longer Active Rikki GRANADOS Active VITAMIN D3 14931 UNIT CAPS 1 pill by mouth weekly, for vitamin D deficiency CHOLECALCIFEROL 75336250924 Active Jennifer Chun MD PhD Active ANASTROZOLE 1 MG ORAL TABS Take one by mouth daily ANASTROZOLE 21533624796 Active Jennifer Chun MD PhD Active ZITHROMAX 250 MG TAB 2 po today, then 1 po q days 2-5 AZITHROMYCIN 16501759732 No Longer Active Rikki Harms PA Active MECLIZINE HCL 25 MG TABS 1 prn MECLIZINE HCL 69944412899 No Longer Active Solomon Alamo MD Active CHERATUSSIN AC SYRP prn as directed GUAIFENESIN- CODEINE SYRP 40642962036 No Longer Active Rikki Harms PA Active MULTIVITAMINS TABS 1qd MULTIPLE VITAMIN 22022335610 No Longer Active Rikki Harms PA Active OMEPRAZOLE 20 MG CPDR 1 PO Q D OMEPRAZOLE 75536802063 Active Rikki Harms PA Active ZITHROMAX Z-CAROLYN 250 MG TABS 2x1day,4l3bons AZITHROMYCIN 33695804377 No Longer Active Jocelyne Lovell SEARCH ENGINEER Active MULTIVITAMINS TABS 1qd MULTIVITAMINS TABS MULTIPLE VITAMIN Inactive CHERATUSSIN AC SYRP prn as directed CHERATUSSIN AC SYRP GUAIFENESIN-CODEINE SYRP Inactive MECLIZINE HCL 25 MG TABS 1 prn MECLIZINE HCL 25 MG TABS 479599 MECLIZINE HCL Inactive ASPIRIN 81 MG TABS 1qd ASPIRIN 81 MG TABS 907187 ASPIRIN Inactive CLARITIN 10 MG TABS 1prn CLARITIN 10 MG TABS 698467 LORATADINE Inactive ZITHROMAX Z-CAROLYN 250 MG TABS 2x1day,1w1kuql ZITHROMAX Z-CAROLYN 250 MG TABS 1605887 AZITHROMYCIN Inactive ZITHROMAX 250 MG TAB 2 po today, then 1 po q days 2-5 ZITHROMAX 250 MG TAB 7824352 AZITHROMYCIN Inactive DOXYCYCLINE HYCLATE 100 MG CAP 1 cap by mouth twice daily DOXYCYCLINE HYCLATE 100 MG CAP 7643378 DOXYCYCLINE HYCLATE Inactive Vital Signs Date Name [...] % 11.6-14.8 platelet count 131 10^3/MM^3 10*3/mm3 986-223 7473/12/12 leukocyte count, blood 28.6 10^3/MM^3 10*3/mm3 4.6-10.2 [...] % 11.6-14.8 platelet count 237 10^3/MM^3 10*3/mm3 667-809 5585/12/23 leukocyte count, blood 6.9 10^3/MM^3 10*3/mm3 4.6-10.2 [...] % 11.6-14.8 platelet count 360 10^3/MM^3 10*3/mm3 656-107 3806/12/31 leukocyte count, blood 5.3 10^3/MM^3 10*3/mm3 4.6-10.2 [...] % 11.6-14.8 platelet count 222 10^3/MM^3 10*3/mm3 220-030 7865/01/07 leukocyte count, blood 11.7 10^3/MM^3 10*3/mm3 4.6-10.2 [...] % 11.6-14.8 platelet count 191 10^3/MM^3 10*3/mm3 502-229 6964/01/20 leukocyte count, blood 9.8 10^3/MM^3 10*3/mm3 4.6-10.2 [...] % 11.6-14.8 platelet count 195 10^3/MM^3 10*3/mm3 888-020 2284/01/28 leukocyte count, blood 11.9 10^3/MM^3 10*3/mm3 4.6-10.2 [...] % 11.6-14.8 platelet count 278 10^3/MM^3 10*3/mm3 968-871 0491/02/04 leukocyte count, blood 8.5 10^3/MM^3 10*3/mm3 4.6-10.2 [...] % 11.6-14.8 platelet count 326 10^3/MM^3 10*3/mm3 274-126 7397/02/10 leukocyte count, blood 2.3 10^3/MM^3 10*3/mm3 4.6-10.2 [...] % 11.6-14.8 platelet count 240 10^3/MM^3 10*3/mm3 049-772 4269/02/17 leukocyte count, blood 3.4 10^3/MM^3 10*3/mm3 4.6-10.2 [...] % 11.6-14.8 platelet count 308 10^3/MM^3 10*3/mm3 499-407 7060/02/25 leukocyte count, blood 6.6 10^3/MM^3 10*3/mm3 4.6-10.2 [...] Panel - Chemistry sodium, serum 144 mmol/L 673-971 8594/12/16 potassium, serum 4.5 mmol/L 3.5-5.2 chloride, serum 107 mmol/L 98-107 carbon dioxide, venous blood 31.4 mmol/L 21.0-32.0 blood glucose 104 mg/dL 65-110 urea nitrogen, blood 17 mg/dL 7-18 creatinine, serum 1.10 mg/dL 0.60-1.30 alanine aminotransferase (SGPT), serum 25 U/L 12-78 aspartate aminotransferase (SGOT), serum 24 U/L 15-37 calcium, serum 8.4 mg/dL 8.5-10.1 bilirubin, serum, total 0.20 mg/dL 0.00-1.00 sodium, serum 141 mmol/L 954-604 7738/01/14 potassium, serum 4.9 mmol/L 3.5-5.2 chloride, serum [...] % 11.6-14.8 platelet count 376 10^3/MM^3 10*3/mm3 740-648 1660/12/16 leukocyte count, blood 19.5 10^3/MM^3 10*3/mm3 4.6-10.2 [...] Panel - Chemistry sodium, serum 140 mmol/L 672-839 6179/07/13 potassium, serum 4.5 mmol/L 3.5-5.2 chloride, serum 106 mmol/L 98-107 carbon dioxide, venous blood 27.7 mmol/L 21.0-32.0 blood glucose 105 mg/dL 65-110 urea nitrogen, blood 14 mg/dL 7-18 creatinine, serum 0.90 mg/dL 0.60-1.30 alanine aminotransferase (SGPT), serum 29 U/L 12-78 aspartate aminotransferase (SGOT), serum 22 U/L 15-37 calcium, serum 9.4 mg/dL 8.5-10.1 bilirubin, serum, total 0.70 mg/dL 0.00-1.00 cholesterol, serum 160 mg/dL 457-308 4723/07/13 triglyceride, serum, fasting 63 mg/dL 30-200 HDL [...] Panel - Chemistry sodium, serum 141 mmol/L 595-526 6014/02/10 potassium, serum 5.2 mmol/L 3.5-5.2 chloride, serum 106 mmol/L 98-107 carbon dioxide, venous blood 27.8 mmol/L 21.0-32.0 blood glucose 111 mg/dL 65-110 urea nitrogen, blood 18 mg/dL 7-18 creatinine, serum 0.90 mg/dL 0.60-1.30 alanine aminotransferase (SGPT), serum 29 U/L 12-78 aspartate aminotransferase (SGOT), serum 21 U/L 15-37 calcium, serum 8.3 mg/dL 8.5-10.1 bilirubin, serum, total 0.40 mg/dL 0.00-1.00 Lab Report: VITAMIN D, 25-HYDROXY/15614 - Chemistry vitamin D 25-hydroxy, serum 24 ng/mL 30-100 Encounters Code Encounter Date Provider Facility CPT-14539 Level 2 Est. Patient 09:07:32 CDT Marta Viramontes APRN [facility] CPT-87138 Level 4 Est. Patient 11:55:00 CDT Rikki GRANADOS [facility] CPT-05025 Level 3 Est. Patient 13:25:16 CDT Jennifer Chun MD PhD [facility] CPT-78207 Level 3 Est. Patient 17:31:22 CDT Solomon Alamo MD [facility] CPT-79286 Level 3 Est. Patient 08:02:14 CDT Solomon Alamo MD [facility] CPT-62264 Level 3 Est. Patient 17:23:53 CDT Rikki GRANADOS [facility] CPT-06743 Level 3 Est. Patient 11:22:41 CDT Darryn GRANADOS [facility] Procedures Code Procedure Name Date Entry Date Standard Description CPT-I/D I/D Abscess 09:43:13 CDT CPT-10758 Venipuncture Draw Fee 08:16:46 DIRECT SALES CONSULTANT CPT-34475 Venipuncture Draw Fee 08:18:55 DIRECT SALES CONSULTANT CPT-13796 Venipuncture Draw Fee 08:31:18 DIRECT SALES CONSULTANT CPT-52550 Venipuncture Draw Fee 11:42:52 DIRECT SALES CONSULTANT CPT-92872 Venipuncture Draw Fee 13:26:37 DIRECT SALES CONSULTANT CPT-20822 Venipuncture Draw Fee 09:23:38 DIRECT SALES CONSULTANT CPT-000 Give Appropriate Tetanus Booster 10:23:50 CDT CPT-15654 Bone Density 08:28:45 CDT CPT-42546 Bone Density 11:35:15 CDT CPT-PV Prev. Care Visit 12:19:00 CDT CPT-87176 Venipuncture Draw Fee 15:02:58 CDT
--- OUTSIDE RECORDS SUMMARY | 2018-01-19 06:55 | XMS REPORT | Clinical Summary ---
Author Author Admin, E Organization [facility] Address Unknown Phone Unavailable Allergies, Adverse Reactions, Alerts Allergy Name Reaction Description Start Date Severity Status Provider SULFA facial swelling Critical Active Jocelyne Naff SALES INTERN Conditions or Problems Problem Name Problem Code Onset Date Status Entry Date Provider Comment Standard Description Annotate G E R D 530.81 Active Jocelyne Naff SALES INTERN Esophageal reflux FH COLON CANCER V16.0 Active Jocelyne Naff SALES INTERN Family history of malignant neoplasm of gastrointestinal [...] Generic Name NDC Status Provider Patient Instruction TUSSIONEX PENNKINETIC ER 10-8 MG/5ML LQCR 5ml po q12hr PRN Cough HYDROCOD POLST-CHLORPHEN POLST 03546965477 Active Marta Viramontes APRN Active VITAMIN D3 15268 UNIT CAPS 1 qWeek x 4 months for vitamin D deficiency 04/09 CHOLECALCIFEROL 25573806735 Active Marta Viramontes APRN Active CEPHALEXIN 500 MG ORAL CAPS Take one four times a day CEPHALEXIN 82009395544 No Longer Active Marta Viramontes APRN Active BIOTIN 1000 MCG ORAL TABS Take one daily BIOTIN 44388084509 Active Rikki Harms PA Active VITAMIN C 500 MG ORAL CAPS Take one daily ASCORBIC ACID 07900688933 Active Rikki Harms PA Active BENZONATATE 200 MG ORAL CAPS One capsule tid. BENZONATATE 00087348053 No Longer Active Rikki Harms PA Active FLONASE ALLERGY RELIEF 50 MCG/ACT NASAL SUSP spray twice in each nostril one time daily FLUTICASONE PROPIONATE 03414779322 No Longer Active Rikki Harms PA Active TUSSIONEX PENNKINETIC ER 10-8 MG/5ML LQCR 5ml po q12hr PRN Cough HYDROCOD POLST-CHLORPHEN POLST 90810666905 No Longer Active Rikki Harms PA Active NIACIN ER 500 MG ORAL CR-TABS Take one twice daily NIACIN 47532463910 Active Rikki Harms PA Active ALBUTEROL SULFATE 0.083 % NEBU SOLN one vial per nebulizer every 4-6 hours as needed ALBUTEROL SULFATE 49691376899 No Longer Active Rikki Harms PA Active MEDROL (CAROLYN) 4 MG TABS 6 tabs on day 1, 5 tabs on day 2, 4 tabs on day 3, 3 tabs on day 4, 2 tabs on day 5, 1 tab on day 6 METHYLPREDNISOLONE 38293806798 No Longer Active Rikki Harms PA Active LEVAQUIN 750 MG TABS 1 po qd x 7 days LEVOFLOXACIN 12532450955 No Longer Active Rikki Harms PA Active LEVAQUIN 500 MG ORAL TABS Take one tablet daily LEVOFLOXACIN 54908967921 No Longer Active Rikki Harms PA Active PROAIR HFA 108 (90 BASE) MCG/ACT AERS 2 puffs four times a day as needed 2014 ALBUTEROL SULFATE 39026155435 Active Marta Yokum COMPUGRAPH OPERATOR Active LEVAQUIN 500 MG TAB 1 tablet by mouth daily LEVOFLOXACIN 84393538073 No Longer Active Marta Yokum COMPUGRAPH OPERATOR Active CHERATUSSIN AC 100-10 MG/5ML SYRP 1 tsp by mouth every 4 hours as needed for cough GUAIFENESIN-CODEINE 88494107925 No Longer Active Rikki Harms PA Active MUPIROCIN 2 % EXT OINT Use in each nostril in am and pm MUPIROCIN 09845852127 No Longer Active Rikki Harms PA Active DOXYCYCLINE HYCLATE 100 MG ORAL CAPS Take one bid DOXYCYCLINE HYCLATE 38341812919 No Longer Active Rikki Harms PA Active CLARITIN 10 MG TABS 1prn LORATADINE 44160595449 No Longer Active Jocelyne Naff SALES INTERN Active ASPIRIN 81 MG TABS 1qd ASPIRIN 60583854697 No Longer Active Jocelyne Naff SALES INTERN Active DOXYCYCLINE HYCLATE 100 MG CAP 1 cap by mouth twice daily DOXYCYCLINE HYCLATE 59231077425 No Longer Active Rikki Harms PA Active VITAMIN D3 77634 UNIT CAPS 1 pill by mouth weekly, for vitamin D deficiency CHOLECALCIFEROL 56936733791 No Longer Active Jennifer Chun MD PhD Active ANASTROZOLE 1 MG ORAL TABS Take one by mouth daily ANASTROZOLE 07062706258 Active Jennifer Chun MD PhD Active ZITHROMAX 250 MG TAB 2 po today, then 1 po q days 2-5 AZITHROMYCIN 88372080215 No Longer Active Rikki Harms PA Active MECLIZINE HCL 25 MG TABS 1 prn MECLIZINE HCL 61668133750 No Longer Active Solomon Alamo MD Active CHERATUSSIN AC SYRP prn as directed GUAIFENESIN- CODEINE SYRP 61024126969 No Longer Active Rikki Harms PA Active MULTIVITAMINS TABS 1qd MULTIPLE VITAMIN 96252822486 No Longer Active Rikki Harms PA Active OMEPRAZOLE 20 MG CPDR 1 PO Q D OMEPRAZOLE 32993895496 Active Marta Viramontes COMPUGRAPH OPERATOR Active ZITHROMAX Z-CAROLYN 250 MG TABS 2x1day,4m9kxnh AZITHROMYCIN 37380695210 No Longer Active Jocelyne Lovell SALES INTERN Active MULTIVITAMINS TABS 1qd MULTIVITAMINS TABS MULTIPLE VITAMIN Inactive CHERATUSSIN AC SYRP prn as directed CHERATUSSIN AC SYRP GUAIFENESIN-CODEINE SYRP Inactive MECLIZINE HCL 25 MG TABS 1 prn MECLIZINE HCL 25 MG TABS 295927 MECLIZINE HCL Inactive ASPIRIN 81 MG TABS 1qd ASPIRIN 81 MG TABS ASPIRIN Inactive CLARITIN 10 MG TABS 1prn CLARITIN 10 MG TABS 695243 LORATADINE Inactive DOXYCYCLINE HYCLATE 100 MG ORAL CAPS Take one bid DOXYCYCLINE HYCLATE 100 MG ORAL CAPS 4105967 DOXYCYCLINE HYCLATE Inactive MUPIROCIN 2 % EXT OINT Use in each nostril in am and pm MUPIROCIN 2 % EXT OINT 555359 MUPIROCIN Inactive CHERATUSSIN AC 100-10 MG/5ML SYRP 1 tsp by mouth every 4 hours as needed for cough CHERATUSSIN AC 100-10 MG/5ML SYRP 541452 GUAIFENESIN-CODEINE Inactive LEVAQUIN 500 MG TAB 1 tablet by mouth daily LEVAQUIN 500 MG TAB 528958 LEVOFLOXACIN Inactive LEVAQUIN 500 MG ORAL TABS Take one tablet daily LEVAQUIN 500 MG ORAL TABS 19980111 LEVOFLOXACIN Inactive LEVAQUIN 750 MG TABS 1 po qd x 7 days LEVAQUIN 750 MG TABS 124282 LEVOFLOXACIN Inactive ALBUTEROL SULFATE 0.083 % NEBU SOLN one vial per nebulizer every 4-6 hours as needed ALBUTEROL SULFATE 0.083 % NEBU SOLN 234493 ALBUTEROL SULFATE Inactive TUSSIONEX PENNKINETIC ER 10-8 MG/5ML LQCR 5ml po q12hr PRN Cough TUSSIONEX PENNKINETIC ER 10-8 MG/5ML LQCR HYDROCOD POLST- CHLORPHEN POLST Inactive FLONASE ALLERGY RELIEF 50 MCG/ACT NASAL SUSP spray twice in each nostril one time daily FLONASE ALLERGY RELIEF 50 MCG/ACT NASAL SUSP 6865762 FLUTICASONE PROPIONATE Inactive BENZONATATE 200 MG ORAL CAPS One capsule tid. BENZONATATE 200 MG ORAL CAPS 428428 BENZONATATE Inactive CEPHALEXIN 500 MG ORAL CAPS Take one four times a day CEPHALEXIN 500 MG ORAL CAPS 305473 CEPHALEXIN Inactive ZITHROMAX Z-CAROLYN 250 MG TABS 2x1day,4h9ulsc ZITHROMAX Z-CAROLYN 250 MG TABS 9176060 AZITHROMYCIN Inactive ZITHROMAX 250 MG TAB 2 po today, then 1 po q days 2-5 ZITHROMAX 250 MG TAB 1954932 AZITHROMYCIN Inactive VITAMIN D3 26019 UNIT CAPS 1 pill by mouth weekly, for vitamin D deficiency VITAMIN D3 42021 UNIT CAPS CHOLECALCIFEROL Inactive DOXYCYCLINE HYCLATE 100 MG CAP 1 cap by mouth twice daily DOXYCYCLINE HYCLATE 100 MG CAP 3514836 DOXYCYCLINE HYCLATE Inactive MEDROL (CAROLYN) 4 MG TABS 6 tabs on day 1, 5 tabs on day 2, 4 tabs on day 3, 3 tabs on day 4, 2 tabs on day 5, 1 tab on day 6 MEDROL ( CAROLYN) 4 MG TABS 429447 METHYLPREDNISOLONE Inactive Vital Signs Date Name Value [...] E&M - 3141-9 196 [lb_av] Weight Measured Diagnostic Results Date Name Value Unit Range Description Lab Report: Basic Metabolic Panel - Chemistry sodium, serum 142 mmol/L 771-547 4069/07/25 potassium, serum 4.0 mmol/L 3.5-5.2 chloride, serum 107 mmol/L 98-107 carbon dioxide, venous blood 31.6 mmol/L 21.0-32.0 blood glucose 108 mg/dL 65-110 calcium, serum 9.2 mg/dL 8.5-10.1 urea nitrogen, blood 20 mg/dL 7-18 creatinine, serum 0.92 mg/dL 0.55-1.30 sodium, serum 141 mmol/L 554-814 5197/11/11 urea nitrogen, blood 23 mg/dL 7-18 creatinine, serum 0.83 mg/dL 0.55-1.30 potassium, serum 4.2 mmol/L 3.5-5.2 chloride, serum 106 mmol/L 98-107 carbon dioxide, venous blood 29.1 mmol/L 21.0-32.0 blood glucose 95 mg/dL 65-110 calcium, serum 8.6 mg/dL 8.5-10.1 Lab Report: CBC W/DIFF - Hematology hemoglobin, blood 12.4 g/dL 12.0-16.0 hematocrit, blood 36.4 % 36.0-46.0 mean corpuscular volume, RBC 97 fL 80-97 mean corpuscular hemoglobin, RBC 32.9 pg 27.0-31.2 mean corpuscular hemoglobin concentration, RBC 33.9 G/DL % 31.8- 35.4 red blood cell distribution width 12.5 % 11.6-14.8 platelet count 269 10^3/MM^3 10*3/mm3 317-695 1747/03/02 erythrocyte (RBC) count 3.76 10^6/MM^3 10*6/mm3 4.04-5.48 lymphocytes as percent of blood leukocytes 32.8 % 20.5-51.1 monocytes as percent of blood leukocytes 5.4 % 1.7-9.3 neutrophils as percent of blood leukocytes 54.8 % 42.2-75.2 leukocyte count, blood 5.1 10^3/MM^3 10*3/mm3 4.6-10.2 Lab Report: Lipid Panel, Thyroid Stimulating Hormone (L) - Chemistry cholesterol, serum 177 mg/dL 886-702 0395/10/31 triglyceride, serum, fasting 64 mg/dL 30-200 HDL cholesterol, serum 77 mg/dL 32-96 LDL cholesterol, serum 87 mg/dL 0-130 TSH 2.13 m[iU]/mL 0.36-3.74 Lab Report: VITAMIN D, 25-HYDROXY/37845 - Chemistry vitamin D 25-hydroxy, serum 25 ng/mL 30-100 Encounters Code Encounter Date Provider Facility CPT-54910 Level 4 Est. Patient 17:31:07 CDT [address] [facility] CPT-70749 Level 3 Est. Patient 05:11:40 CDT Rikki GRANADOS [facility] CPT-97676 Level 2 Est. Patient 14:30:43 DETECTIVE BUREAU CHIEF [facility] Level 4 Est. Patient 09:14:36 DETECTIVE BUREAU CHIEF Rikki GRANADOS [facility] CPT-58980 Level 2 Est. Patient 09:07:32 CDT Marta Viramontes [facility] CPT-15427 Level 4 Est. Patient 11:55:00 CDT Rikki GRANADOS [facility] CPT-33929 Level 3 Est. Patient 13:25:16 CDT Jennifer Chun MD PhD [facility] CPT-14731 Level 3 Est. Patient 17:31:22 CDT Solomon Alamo MD [facility] CPT-92135 Level 3 Est. Patient 08:02:14 CDT Solomon Alamo MD [facility] CPT-89277 Level 3 Est. Patient 17:23:53 CDT Rikki Stearns [facility] CPT-68307 Level 3 Est. Patient 11:22:41 CDT Darryn Hearn [facility] Procedures Code Procedure Name Date Entry Date Standard Description CPT-18819 Venipuncture Draw Fee 12:43:48 DETECTIVE BUREAU CHIEF CPT-07596 BMP - LAB USE ONLY 10:32:33 DETECTIVE BUREAU CHIEF CPT-02147 Venipuncture Draw Fee 10:32:33 DETECTIVE BUREAU CHIEF CPT-76214 Magnesium - LAB USE ONLY 09:54:30 CDT CPT-02299 TSH - LAB USE ONLY 09:54:30 CDT CPT-76291 Lipid - LAB USE ONLY 09:54:30 CDT CPT-03939 Venipuncture Draw Fee 09:54:29 CDT CPT-64468 Venipuncture Draw Fee 18:27:04 CDT CPT-54425 Chest 2V Frontal and Lat 10:57:00 DETECTIVE BUREAU CHIEF CPT-55705 Venipuncture Draw Fee 10:56:59 DETECTIVE BUREAU CHIEF CPT-65697 Venipuncture Draw Fee 09:22:28 DETECTIVE BUREAU CHIEF CPT-50495 Chest 2V Frontal and Lat 09:22:27 DETECTIVE BUREAU CHIEF CPT-I/D I/D Abscess 09:43:13 CDT CPT-96647 Venipuncture Draw Fee 08:16:46 DETECTIVE BUREAU CHIEF CPT-74024 Venipuncture Draw Fee 08:18:55 DETECTIVE BUREAU CHIEF CPT-80707 Venipuncture Draw Fee 08:31:18 DETECTIVE BUREAU CHIEF CPT-57533 Venipuncture Draw Fee 11:42:52 DETECTIVE BUREAU CHIEF CPT-41658 Venipuncture Draw Fee 13:26:37 DETECTIVE BUREAU CHIEF CPT-31459 Venipuncture Draw Fee 09:23:38 DETECTIVE BUREAU CHIEF CPT-000 Give Appropriate Tetanus Booster 10:23:50 CDT CPT-43962 Bone Density 08:28:45 CDT CPT-99775 Bone Density 11:35:15 CDT CPT-PV Prev. Care Visit 12:19:00 CDT CPT-06584 Venipuncture Draw Fee 15:02:58 CDT
--- OUTSIDE RECORDS SUMMARY | 2018-01-19 06:55 | XMS REPORT | Clinical Summary ---
Author Author Admin, E Organization [facility] Address Unknown Phone Unavailable Allergies, Adverse Reactions, Alerts Allergy Name Reaction Description Start Date Severity Status Provider SULFA facial swelling Critical Active Jocelyne Naff [employer]AR[employer] MECHANIC Conditions or Problems Problem Name Problem Code Onset Date Status Entry Date Provider Comment Standard Description Annotate G E R D 530.81 Active Jocelyne Naff [employer]IGARETTE MACHINES MECHANIC Esophageal reflux FH COLON CANCER V16.0 Active Jocelyne Naff CIGARETTE MACHINES MECHANIC Family history of malignant neoplasm of [...] Ingrown toenail, left 703.0 Resolved Marta Yokum COMMISSIONS SPECIALIST Ingrowing nail cellulitis, finger, right 681.00 Active Marta Yokum COMMISSIONS SPECIALIST Cellulitis and abscess of finger, unspecified Cough 786.2 Active Marta Yokum COMMISSIONS SPECIALIST Cough Breast microcalcification ICD-793.81 Inactive Jennifer Chun [...] po BID x 10 days AMOXICILLIN-POT CLAVULANATE 66164366625 Active Marta Yokum COMMISSIONS SPECIALIST Active MEDROL (CAROLYN) 4 MG TABS 6 tabs on day 1, 5 tabs on day 2, 4 tabs on day 3, 3 tabs on day 4, 2 tabs on day 5, 1 tab on day 6 METHYLPREDNISOLONE 03834754584 No Longer Active Marta Yokum COMMISSIONS SPECIALIST Active TESSALON PERLES 100 MG CAP 1 to 2 tablets by mouth 3 times daily as needed for cough BENZONATATE 31456102167 Active Marta Yokum COMMISSIONS SPECIALIST Active TUSSIONEX PENNKINETIC ER 10-8 MG/5ML LQCR 5ml po q12hr PRN Cough HYDROCOD POLST-CHLORPHEN POLST 61168746445 Active Marta Yokum COMMISSIONS SPECIALIST Active KEFLEX 500 MG CAP 1 po qid CEPHALEXIN 91318561477 No Longer Active Marta Yokum COMMISSIONS SPECIALIST Active B COMPLEX 50 ORAL CR-TABS B COMPLEX VITAMINS 84561530743 Active Marta Viramontes APRN Active TUSSIONEX PENNKINETIC ER 10-8 MG/5ML LQCR 5ml po q12hr PRN Cough HYDROCOD POLST-CHLORPHEN POLST 26959014332 No Longer Active Marta Viramontes APRN Active VITAMIN D3 93964 UNIT CAPS 1 qWeek x 4 months for vitamin D deficiency 04/09 CHOLECALCIFEROL 67430858144 Active Marta Viramontes COMMISSIONS SPECIALIST Active CEPHALEXIN 500 MG ORAL CAPS Take one four times a day CEPHALEXIN 42320314616 No Longer Active Marta Viramontes COMMISSIONS SPECIALIST Active BIOTIN 1000 MCG ORAL TABS Take one daily BIOTIN 93515811531 Active Rikki Harms PA Active VITAMIN C 500 MG ORAL CAPS Take one daily ASCORBIC ACID 61222954275 Active Rikki Harms PA Active BENZONATATE 200 MG ORAL CAPS One capsule tid. BENZONATATE 51998834767 No Longer Active Rikki Harms PA Active FLONASE ALLERGY RELIEF 50 MCG/ACT NASAL SUSP spray twice in each nostril one time daily FLUTICASONE PROPIONATE 13074708814 No Longer Active Rikki Harms PA Active TUSSIONEX PENNKINETIC ER 10-8 MG/5ML LQCR 5ml po q12hr PRN Cough HYDROCOD POLST-CHLORPHEN POLST 66643771919 No Longer Active Rikki Harms PA Active NIACIN ER 500 MG ORAL CR-TABS Take one twice daily NIACIN 17698109219 Active Rikki Harms PA Active ALBUTEROL SULFATE 0.083 % NEBU SOLBarbra one vial per nebulizer every 4-6 hours as needed ALBUTEROL SULFATE 67509841082 No Longer Active Rikki Harms PA Active MEDROL (CAROLYN) 4 MG TABS 6 tabs on day 1, 5 tabs on day 2, 4 tabs on day 3, 3 tabs on day 4, 2 tabs on day 5, 1 tab on day 6 METHYLPREDNISOLONE 95137833635 No Longer Active Rikki Harms PA Active LEVAQUIN 750 MG TABS 1 po qd x 7 days LEVOFLOXACIN 35257888203 No Longer Active Rikki Harms PA Active LEVAQUIN 500 MG ORAL TABS Take one tablet daily LEVOFLOXACIN 12230190268 No Longer Active Rikki Harms PA Active PROAIR HFA 108 (90 BASE) MCG/ACT AERS 2 puffs four times a day as needed 2014 ALBUTEROL SULFATE 42356769916 Active Marta Yokum COMMISSIONS SPECIALIST Active LEVAQUIN 500 MG TAB 1 tablet by mouth daily LEVOFLOXACIN 07312266311 No Longer Active Marta Yokum COMMISSIONS SPECIALIST Active CHERATUSSIN AC 100-10 MG/5ML SYRP 1 tsp by mouth every 4 hours as needed for cough GUAIFENESIN-CODEINE 12019143725 No Longer Active Rikki Harms PA Active MUPIROCIN 2 % EXT OINT Use in each nostril in am and pm MUPIROCIN 92696405690 No Longer Active Rikki Harms PA Active DOXYCYCLINE HYCLATE 100 MG ORAL CAPS Take one bid DOXYCYCLINE HYCLATE 19426552590 No Longer Active Rikki Harms PA Active CLARITIN 10 MG TABS 1prn LORATADINE 41593583500 No Longer Active Jocelyne Naff CIGARETTE MACHINES MECHANIC Active ASPIRIN 81 MG TABS 1qd ASPIRIN 64079313989 No Longer Active Jocelyne Naff CIGARETTE MACHINES MECHANIC Active DOXYCYCLINE HYCLATE 100 MG CAP 1 cap by mouth twice daily DOXYCYCLINE HYCLATE 06022171419 No Longer Active Rikki Harms PA Active VITAMIN D3 32669 UNIT CAPS 1 pill by mouth weekly, for vitamin D deficiency CHOLECALCIFEROL 78727280906 No Longer Active Jennifer Chun MD PhD Active ANASTROZOLE 1 MG ORAL TABS Take one by mouth daily ANASTROZOLE 35635088094 Active Jennifer Chun MD PhD Active ZITHROMAX 250 MG TAB 2 po today, then 1 po q days 2-5 AZITHROMYCIN 15166897375 No Longer Active Rikki Harms PA Active MECLIZINE HCL 25 MG TABS 1 prn MECLIZINE HCL 24532800160 No Longer Active Solomon Alamo MD Active CHERATUSSIN AC SYRP prn as directed GUAIFENESIN- CODEINE SYRP 38982116962 No Longer Active Rikki Harms PA Active MULTIVITAMINS TABS 1qd MULTIPLE VITAMIN 91893860694 No Longer Active Rikki Harms PA Active OMEPRAZOLE 20 MG CPDR 1 PO Q D OMEPRAZOLE 28523850465 Active Jocelyne Naff CIGARETTE MACHINES MECHANIC Active ZITHROMAX Z-CAROLYN 250 MG TABS 2x1day,2i8ctmq AZITHROMYCIN 22611061519 No Longer Active Jocelyne Naff CIGARETTE MACHINES MECHANIC Active MULTIVITAMINS TABS 1qd MULTIVITAMINS TABS MULTIPLE VITAMIN Inactive CHERATUSSIN AC SYRP prn as directed CHERATUSSIN AC SYRP GUAIFENESIN-CODEINE SYRP Inactive MECLIZINE HCL 25 MG TABS 1 prn MECLIZINE HCL 25 MG TABS 858038 MECLIZINE HCL Inactive ASPIRIN 81 MG TABS 1qd ASPIRIN 81 MG TABS ASPIRIN Inactive CLARITIN 10 MG TABS 1prn CLARITIN 10 MG TABS 651119 LORATADINE Inactive DOXYCYCLINE HYCLATE 100 MG ORAL CAPS Take one bid DOXYCYCLINE HYCLATE 100 MG ORAL CAPS 7851685 DOXYCYCLINE HYCLATE Inactive MUPIROCIN 2 % EXT OINT Use in each nostril in am and pm MUPIROCIN 2 % EXT OINT 304554 MUPIROCIN Inactive CHERATUSSIN AC 100-10 MG/5ML SYRP 1 tsp by mouth every 4 hours as needed for cough CHERATUSSIN AC 100-10 MG/5ML SYRP 742650 GUAIFENESIN-CODEINE Inactive LEVAQUIN 500 MG TAB 1 tablet by mouth daily LEVAQUIN 500 MG TAB 564102 LEVOFLOXACIN Inactive LEVAQUIN 500 MG ORAL TABS Take one tablet daily LEVAQUIN 500 MG ORAL TABS 897098 LEVOFLOXACIN Inactive LEVAQUIN 750 MG TABS 1 po qd x 7 days LEVAQUIN 750 MG TABS 501704 LEVOFLOXACIN Inactive ALBUTEROL SULFATE 0.083 % NEBU SOLN one vial per nebulizer every 4-6 hours as needed ALBUTEROL SULFATE 0.083 % NEBU SOLN 389178 ALBUTEROL SULFATE Inactive TUSSIONEX PENNKINETIC ER 10-8 MG/5ML LQCR 5ml po q12hr PRN Cough TUSSIONEX PENNKINETIC ER 10-8 MG/5ML LQCR HYDROCOD POLST- CHLORPHEN POLST Inactive FLONASE ALLERGY RELIEF 50 MCG/ACT NASAL SUSP spray twice in each nostril one time daily FLONASE ALLERGY RELIEF 50 MCG/ACT NASAL SUSP 2370861 FLUTICASONE PROPIONATE Inactive BENZONATATE 200 MG ORAL CAPS One capsule tid. BENZONATATE 200 MG ORAL CAPS 809233 BENZONATATE Inactive CEPHALEXIN 500 MG ORAL CAPS Take one four times a day CEPHALEXIN 500 MG ORAL CAPS 243852 CEPHALEXIN Inactive TUSSIONEX PENNKINETIC ER 10-8 MG/5ML LQCR 5ml po q12hr PRN Cough TUSSIONEX PENNKINETIC ER 10-8 MG/5ML LQCR HYDROCOD POLST- CHLORPHEN POLST Inactive ZITHROMAX Z-CAROLYN 250 MG TABS 2x1day,0x2adqq ZITHROMAX Z-CAROLYN 250 MG TABS 7686123 AZITHROMYCIN Inactive ZITHROMAX 250 MG TAB 2 po today, then 1 po q days 2-5 ZITHROMAX 250 MG TAB 1449537 AZITHROMYCIN Inactive VITAMIN D3 06801 UNIT CAPS 1 pill by mouth weekly, for vitamin D deficiency VITAMIN D3 16817 UNIT CAPS CHOLECALCIFEROL Inactive DOXYCYCLINE HYCLATE 100 MG CAP 1 cap by mouth twice daily DOXYCYCLINE HYCLATE 100 MG CAP 5974077 DOXYCYCLINE HYCLATE Inactive MEDROL (CAROLYN) 4 MG TABS 6 tabs on day 1, 5 tabs on day 2, 4 tabs on day 3, 3 tabs on day 4, 2 tabs on day 5, 1 tab on day 6 MEDROL ( CAROLYN) 4 MG TABS 418230 METHYLPREDNISOLONE Inactive KEFLEX 500 MG CAP 1 po qid KEFLEX 500 MG CAP 518213 CEPHALEXIN Inactive MEDROL (CAROLYN) 4 MG TABS 6 tabs on day 1, 5 tabs on day 2, 4 tabs on day 3, 3 tabs on day 4, 2 tabs on day 5, 1 tab on day 6 MEDROL ( CAROLYN) 4 MG TABS 955655 METHYLPREDNISOLONE Inactive Vital Signs Date Name Value [...] Panel - Chemistry sodium, serum 142 mmol/L 673-694 6910/07/25 potassium, serum 4.0 mmol/L 3.5-5.2 chloride, serum 107 mmol/L 98-107 carbon dioxide, venous blood 31.6 mmol/L 21.0-32.0 blood glucose 108 mg/dL 65-110 calcium, serum 9.2 mg/dL 8.5-10.1 urea nitrogen, blood 20 mg/dL 7-18 creatinine, serum 0.92 mg/dL 0.55-1.30 sodium, serum 141 mmol/L 993-804 0047/11/11 potassium, serum 4.2 mmol/L 3.5-5.2 chloride, serum 106 mmol/L 98-107 carbon dioxide, venous blood 29.1 mmol/L 21.0-32.0 blood glucose 95 mg/dL 65-110 calcium, serum 8.6 mg/dL 8.5-10.1 urea nitrogen, blood 23 mg/dL 7-18 creatinine, serum 0.83 mg/dL 0.55-1.30 Lab Report: Lipid Panel, Thyroid Stimulating Hormone (L) - Chemistry cholesterol, serum 177 mg/dL 130-605 6669/10/31 triglyceride, serum, fasting 64 mg/dL 30-200 HDL cholesterol, serum 77 mg/dL 32-96 LDL cholesterol, serum 87 mg/dL 0-130 TSH 2.13 m[iU]/mL 0.36-3.74 Lab Report: VITAMIN D, 25-HYDROXY/34434 - Chemistry vitamin D 25-hydroxy, serum 25 ng/mL 30-100 Encounters Code Encounter Date Provider Facility CPT-39458 Level 3 Est. Patient 16:07:34 CDT Marta Viramontes [facility] CPT-47323 Level 3 Est. Patient 15:39:01 CDT Marta Viramontes [facility] CPT-09003 Level 4 Est. Patient 17:31:07 CDT Marta Viramontes [facility] CPT-51930 Level 3 Est. Patient 05:11:40 CDT Rikki GRANADOS [facility] CPT-56791 Level 2 Est. Patient 14:30:43 [employer] 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 Marta Ana M [facility] CPT-83221 Level 4 Est. Patient 09:14:36 [employer] 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 Rikki GRANADOS [facility] CPT-79704 Level 2 Est. Patient 09:07:32 CDT Marta Viramontes [facility] CPT-07251 Level 4 Est. Patient 11:55:00 CDT Rikki GRANADOS [facility] CPT-46762 Level 3 Est. Patient 13:25:16 CDT Jennifer Chun MD [facility] CPT-70682 Level 3 Est. Patient 17:31:22 CDT Solomon Alamo MD [facility] CPT-75973 Level 3 Est. Patient 08:02:14 CDT Solomon Alamo MD [facility] CPT-87769 Level 3 Est. Patient 17:23:53 CDT Rikki GRANADOS [facility] CPT-17799 Level 3 Est. Patient 11:22:41 CDT Darryn Hearn [facility] Procedures Code Procedure Name Date Entry Date Standard Description CPT-98266 Venipuncture Draw Fee 12:43:48 [employer] 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 CPT-16920 BMP - LAB USE ONLY 10:32:33 [employer] 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 CPT-74088 Venipuncture Draw Fee 10:32:33 [employer] 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 CPT-32854 Magnesium - LAB USE ONLY 09:54:30 CDT CPT-49410 TSH - LAB USE ONLY 09:54:30 CDT CPT-93720 Lipid - LAB USE ONLY 09:54:30 CDT CPT-66737 Venipuncture Draw Fee 09:54:29 CDT CPT-60606 Venipuncture Draw Fee 18:27:04 CDT CPT-97112 Chest 2V Frontal and Lat 10:57:00 [employer] 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 CPT-93643 Venipuncture Draw Fee 10:56:59 [employer] 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 CPT-99229 Venipuncture Draw Fee 09:22:28 [employer] 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 CPT-71505 Chest 2V Frontal and Lat 09:22:27 [employer] 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 CPT-I/D I/D Abscess 09:43:13 CDT CPT-16610 Venipuncture Draw Fee 08:16:46 [employer] 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 CPT-99761 Venipuncture Draw Fee 08:18:55 [employer] 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 CPT-68005 Venipuncture Draw Fee 08:31:18 [employer] 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 CPT-86352 Venipuncture Draw Fee 11:42:52 [employer] 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 CPT-40462 Venipuncture Draw Fee 13:26:37 [employer] 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 CPT-51630 Venipuncture Draw Fee 09:23:38 [employer] 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 CPT-000 Give Appropriate Tetanus Booster 10:23:50 CDT CPT-91178 Bone Density 08:28:45 CDT CPT-43538 Bone Density 11:35:15 CDT CPT-PV Prev. Care Visit 12:19:00 CDT CPT-36534 Venipuncture Draw Fee 15:02:58 CDT
--- OUTSIDE RECORDS SUMMARY | 2018-01-19 06:55 | XMS REPORT | Clinical Summary ---
Author Author Admin, E Organization [facility] Address Unknown Phone Unavailable Allergies, Adverse Reactions, Alerts Allergy Name Reaction Description Start Date Severity Status Provider SULFA facial swelling Critical Active Jocelyne Quindomenica TELECINE OPERATOR Conditions or Problems Problem Name Problem Code Onset Date Status Entry Date Provider Comment Standard Description Annotate G E R D 530.81 Active Jocelyne Naff TELECINE OPERATOR Esophageal reflux FH COLON CANCER V16.0 Active Jocelyne Naff TELECINE OPERATOR Family history of malignant neoplasm of [...] Benign paroxysmal positional vertigo Breast microcalcification 793.81 Active Jennifer Chun MD PhD Mammographic microcalcification Abnormal Mammogram 793.80 Active Solomon Alamo MD Abnormal mammogram, unspecified Routine gynecological examination V72.31 Active Jennifer Chun MD PhD Routine gynecological examination Postmenopausal status V49.81 Active Chante Black RMA Asymptomatic postmenopausal status (age-related) (natural) Breast cancer 174.9 Active Kailee Rachel RMA Malignant neoplasm of breast (female), unspecified Medication List Medication Instructions Start Date Stop Date Generic Name NDC Status Provider Patient Instruction ZITHROMAX 250 MG TAB 2 po today, then 1 po q days 2-5 AZITHROMYCIN 30093364905 No Longer Active Rikki Harms PA Active MECLIZINE HCL 25 MG TABS 1 prn MECLIZINE HCL 49299988509 No Longer Active Solomon Alamo MD Active CHERATUSSIN AC SYRP prn as directed GUAIFENESIN- CODEINE SYRP 20879405946 No Longer Active Rikki Harms PA Active MULTIVITAMINS TABS 1qd MULTIPLE VITAMIN 22444173533 No Longer Active Rikki Harms PA Active CLARITIN 10 MG TABS 1prn LORATADINE 58331358343 Active Jocelyne Naff TELECINE OPERATOR Active ASPIRIN 81 MG TABS 1qd ASPIRIN 55291718247 Active Jocelyne Naff TELECINE OPERATOR Active OMEPRAZOLE 20 MG CPDR 1 PO Q D OMEPRAZOLE 59366842430 Active Rikki Harms PA Active ZITHROMAX Z-CAROLYN 250 MG TABS 2x1day,3o9zmct AZITHROMYCIN 91260359567 No Longer Active Jocelyne Naff TELECINE OPERATOR Active MULTIVITAMINS TABS 1qd MULTIVITAMINS TABS MULTIPLE VITAMIN Inactive CHERATUSSIN AC SYRP prn as directed CHERATUSSIN AC SYRP GUAIFENESIN-CODEINE SYRP Inactive MECLIZINE HCL 25 MG TABS 1 prn MECLIZINE HCL 25 MG TABS 840299 MECLIZINE HCL Inactive ZITHROMAX Z-CAROLYN 250 MG TABS 2x1day,5p6meix ZITHROMAX Z-CAROLYN 250 MG TABS 4027271 AZITHROMYCIN Inactive ZITHROMAX 250 MG TAB 2 po today, then 1 po q days 2-5 ZITHROMAX 250 MG TAB 3873118 AZITHROMYCIN Inactive Vital Signs Date Name Value Unit Range Description blood pressure, diastolic - 8462-4 78 mm[Hg] [...] E&M - 3141-9 202.50 [lb_av] Weight Measured blood pressure, diastolic - 8462-4 72 mm[Hg] BP rivera blood pressure, systolic - 8480-6 122 mm[Hg] BP sys pulse rate E&M - 8867-4 80 /min Heart rate temperature E&M 99.1 [degF] Body temperature weight E&M - 3141-9 200 [lb_av] Weight Measured Diagnostic Results Date Name Value Unit Range Description Lab Report: CBC W/DIFF - Hematology leukocyte count, blood 6.9 10^3/MM^3 10*3/mm3 4.6-10.2 [...] % 11.6-14.8 platelet count 360 10^3/MM^3 10*3/mm3 192-936 4998/12/31 leukocyte count, blood 5.3 10^3/MM^3 10*3/mm3 4.6-10.2 [...] % 11.6-14.8 platelet count 222 10^3/MM^3 10*3/mm3 633-887 9584/01/07 leukocyte count, blood 11.7 10^3/MM^3 10*3/mm3 4.6-10.2 [...] % 11.6-14.8 platelet count 191 10^3/MM^3 10*3/mm3 838-286 6788/12/10 hemoglobin, blood 14.8 g/dL 12.0-16.0 hematocrit, blood 44.3 % 36.0-46.0 mean corpuscular volume, RBC 90 fL 80-97 mean corpuscular hemoglobin, RBC 30.1 pg 27.0-31.2 mean corpuscular hemoglobin concentration, RBC 33.5 G/DL % 31.8- 35.4 red blood cell distribution width 14.5 % 11.6-14.8 platelet count 131 10^3/MM^3 10*3/mm3 493-388 6878/12/12 leukocyte count, blood 28.6 10^3/MM^3 10*3/mm3 4.6-10.2 [...] % 11.6-14.8 platelet count 237 10^3/MM^3 10*3/mm3 785-369 1679/12/10 erythrocyte (RBC) count 4.93 10^6/MM^3 10*6/mm3 4.04-5.48 lymphocytes as percent of blood leukocytes 65.9 % 20.5-51.1 monocytes as percent of blood leukocytes 25.7 % 1.7-9.3 neutrophils as percent of blood leukocytes 1.4 % 42.2-75.2 leukocyte count, blood 1.3 10^3/MM^3 10*3/mm3 4.6-10.2 leukocyte count, blood 9.8 10^3/MM^3 10*3/mm3 4.6-10.2 [...] % 11.6-14.8 platelet count 195 10^3/MM^3 10*3/mm3 752-803 3446/01/28 leukocyte count, blood 11.9 10^3/MM^3 10*3/mm3 4.6-10.2 [...] % 11.6-14.8 platelet count 278 10^3/MM^3 10*3/mm3 498-395 8010/02/04 leukocyte count, blood 8.5 10^3/MM^3 10*3/mm3 4.6-10.2 [...] % 11.6-14.8 platelet count 326 10^3/MM^3 10*3/mm3 093-833 4249/02/10 leukocyte count, blood 2.3 10^3/MM^3 10*3/mm3 4.6-10.2 [...] % 11.6-14.8 platelet count 240 10^3/MM^3 10*3/mm3 406-041 3594/02/17 hemoglobin, blood 11.6 g/dL 12.0-16.0 hematocrit, blood 35.2 % 36.0-46.0 mean corpuscular volume, RBC 91 fL 80-97 mean corpuscular hemoglobin, RBC 30.0 pg 27.0-31.2 mean corpuscular hemoglobin concentration, RBC 32.9 G/DL % 31.8- 35.4 red blood cell distribution width 18.8 % 11.6-14.8 platelet count 308 10^3/MM^3 10*3/mm3 809-776 0558/02/25 leukocyte count, blood 6.6 10^3/MM^3 10*3/mm3 4.6-10.2 erythrocyte (RBC) count 3.86 10^6/MM^3 10*6/mm3 4.04-5.48 lymphocytes as percent of blood leukocytes 46.9 % 20.5-51.1 monocytes as percent of blood leukocytes 31.9 % 1.7-9.3 neutrophils as percent of blood leukocytes 20.2 % 42.2-75.2 leukocyte count, blood 3.4 10^3/MM^3 10*3/mm3 4.6-10.2 [...] Panel - Chemistry sodium, serum 144 mmol/L 561-487 0098/12/16 potassium, serum 4.5 mmol/L 3.5-5.2 chloride, serum 107 mmol/L 98-107 carbon dioxide, venous blood 31.4 mmol/L 21.0-32.0 blood glucose 104 mg/dL 65-110 urea nitrogen, blood 17 mg/dL 7-18 creatinine, serum 1.10 mg/dL 0.60-1.30 alanine aminotransferase (SGPT), serum 25 U/L 78 aspartate aminotransferase (SGOT), serum 24 U/L 15-37 calcium, serum 8.4 mg/dL 8.5-10.1 bilirubin, serum, total 0.20 mg/dL 0.00-1.00 sodium, serum 141 mmol/L 561-606 7041/01/14 potassium, serum 4.9 mmol/L 3.5-5.2 chloride, serum 107 mmol/L 98-107 carbon dioxide, venous blood 28.9 mmol/L 21.0-32.0 blood glucose 100 mg/dL 65-110 urea nitrogen, blood 19 mg/dL 7-18 creatinine, serum 0.90 mg/dL 0.60-1.30 alanine aminotransferase (SGPT), serum 28 U/L 78 aspartate aminotransferase (SGOT), serum 24 U/L 15-37 calcium, serum 8.2 mg/dL 8.5-10.1 bilirubin, serum, total 0.40 mg/dL 0.00-1.00 Lab Report: CBC W/DIFF, Comp. Metabolic Panel - Hematology leukocyte count, blood 19.5 10^3/MM^3 10*3/mm3 4.6-10.2 [...] % 11.6-14.8 platelet count 239 10^3/MM^3 10*3/mm3 280-596 2232/01/14 leukocyte count, blood 6.7 10^3/MM^3 10*3/mm3 4.6-10.2 [...] count 376 10^3/MM^3 10*3/mm3 142-424 Lab Report: Comp. Metabolic Panel - Chemistry sodium, serum 141 mmol/L 147-260 2284/02/10 potassium, serum 5.2 mmol/L 3.5-5.2 chloride, serum 106 mmol/L 98-107 carbon dioxide, venous blood 27.8 mmol/L 21.0-32.0 blood glucose 111 mg/dL 65-110 urea nitrogen, blood 18 mg/dL 7-18 creatinine, serum 0.90 mg/dL 0.60-1.30 alanine aminotransferase (SGPT), serum 29 U/L 12-78 aspartate aminotransferase (SGOT), serum 21 U/L 15-37 calcium, serum 8.3 mg/dL 8.5-10.1 bilirubin, serum, total 0.40 mg/dL 0.00-1.00 Encounters Code Encounter Date Provider Facility CPT-57957 Level 3 Est. Patient 17:31:22 CDT Solomon Alamo MD [facility] CPT-30836 Level 3 Est. Patient 08:02:14 CDT Solomon Alamo MD [facility] CPT-19351 Level 3 Est. Patient 17:23:53 CDT Rikki Stearns [facility] CPT-60092 Level 3 Est. Patient 11:22:41 CDT Darryn Hearn [facility] Procedures Code Procedure Name Date Entry Date Standard Description CPT-36745 Venipuncture Draw Fee 08:16:46 ASSOCIATE TEAM PHYSICIAN CPT-77568 Venipuncture Draw Fee 08:18:55 ASSOCIATE TEAM PHYSICIAN CPT-27335 Venipuncture Draw Fee 08:31:18 ASSOCIATE TEAM PHYSICIAN CPT-44160 Venipuncture Draw Fee 11:42:52 ASSOCIATE TEAM PHYSICIAN CPT-51633 Venipuncture Draw Fee 13:26:37 ASSOCIATE TEAM PHYSICIAN CPT-75355 Venipuncture Draw Fee 09:23:38 ASSOCIATE TEAM PHYSICIAN CPT-000 Give Appropriate Tetanus Booster 10:23:50 CDT CPT-86864 Bone Density 08:28:45 CDT CPT-09522 Bone Density 11:35:15 CDT CPT-PV Prev. Care Visit 12:19:00 CDT CPT-88959 Venipuncture Draw Fee 15:02:58 CDT
--- OUTSIDE RECORDS SUMMARY | 2018-01-19 06:56 | XMS REPORT | Clinical Summary ---
Author Author Admin, E Organization [facility] Address Unknown Phone Unavailable Allergies, Adverse Reactions, Alerts Allergy Name Reaction Description Start Date Severity Status Provider SULFA facial swelling Critical Active Jocelyne Naff TILTROTOR CREW CHIEF Conditions or Problems Problem Name Problem Code Onset Date Status Entry Date Provider Comment Standard Description Annotate G E R D 530.81 Active Jocelyne Naff TILTROTOR CREW CHIEF Esophageal reflux FH COLON CANCER V16.0 Active Jocelyne Naff TILTROTOR CREW CHIEF Family history of malignant neoplasm of gastrointestinal [...] Adenocarcinoma, fallopian tube, 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 Kailee SUTHERLANDA Malignant neoplasm of fallopian tube Adenocarcinoma, right [...] Generic Name NDC Status Provider Patient Instruction LEVAQUIN 500 MG ORAL TABS Take one tablet daily LEVOFLOXACIN 98443098207 Active Rikki GRANADOS Active PROAIR HFA 108 (90 BASE) MCG/ACT AERS 2 puffs four times a day as needed 2014 ALBUTEROL SULFATE 72379279872 Active Marta Viramontes PEDIATRIC MEDICAL ASSISTANT Active TUSSIONEX PENNKINETIC ER 10-8 MG/5ML LQCR 5ml po q12hr PRN Cough HYDROCOD POLST-CHLORPHEN POLST 61905690608 Active Rikki Harms PA Active LEVAQUIN 750 MG TABS 1 po qd x 7 days LEVOFLOXACIN 45175012988 Active Marta Viramontes PEDIATRIC MEDICAL ASSISTANT Active FLONASE ALLERGY RELIEF 50 MCG/ACT NASAL SUSP spray twice in each nostril one time daily FLUTICASONE PROPIONATE 52636285801 Active Marta Maganaum PEDIATRIC MEDICAL ASSISTANT Active LEVAQUIN 500 MG TAB 1 tablet by mouth daily LEVOFLOXACIN 86195503832 No Longer Active Marta Viramontes PEDIATRIC MEDICAL ASSISTANT Active BENZONATATE 200 MG ORAL CAPS One capsule tid. BENZONATATE 57000775735 Active Marta Viramontes PEDIATRIC MEDICAL ASSISTANT Active CHERATUSSIN AC 100-10 MG/5ML SYRP 1 tsp by mouth every 4 hours as needed for cough GUAIFENESIN-CODEINE 99589906722 No Longer Active Rikki Harms PA Active MUPIROCIN 2 % EXT OINT Use in each nostril in am and pm MUPIROCIN 76045275024 No Longer Active Rikki Harms PA Active DOXYCYCLINE HYCLATE 100 MG ORAL CAPS Take one bid DOXYCYCLINE HYCLATE 23044503479 No Longer Active Rikki Harms PA Active CLARITIN 10 MG TABS 1prn LORATADINE 84403548426 No Longer Active Jocelyne Naff TILTROTOR CREW CHIEF Active ASPIRIN 81 MG TABS 1qd ASPIRIN 28687714749 No Longer Active Jocelyne Naff TILTROTOR CREW CHIEF Active DOXYCYCLINE HYCLATE 100 MG CAP 1 cap by mouth twice daily DOXYCYCLINE HYCLATE 16145575955 No Longer Active Rikki Harms PA Active VITAMIN D3 58829 UNIT CAPS 1 pill by mouth weekly, for vitamin D deficiency CHOLECALCIFEROL 59030708834 No Longer Active Jennifer Chun MD PhD Active ANASTROZOLE 1 MG ORAL TABS Take one by mouth daily ANASTROZOLE 86018418607 Active Jennifer Chun MD PhD Active ZITHROMAX 250 MG TAB 2 po today, then 1 po q days 2-5 AZITHROMYCIN 54220738037 No Longer Active Rikki Harms PA Active MECLIZINE HCL 25 MG TABS 1 prn MECLIZINE HCL 40387035397 No Longer Active Solomon Alamo MD Active CHERATUSSIN AC SYRP prn as directed GUAIFENESIN- CODEINE SYRP 12338961528 No Longer Active Rikki Harms PA Active MULTIVITAMINS TABS 1qd MULTIPLE VITAMIN 66039628683 No Longer Active Rikki Harms PA Active OMEPRAZOLE 20 MG CPDR 1 PO Q D OMEPRAZOLE 29490217334 Active Rikki Harms PA Active ZITHROMAX Z-CAROLYN 250 MG TABS 2x1day,5v7tizw AZITHROMYCIN 68471232915 No Longer Active Jocelynederic Tsaif TILTROTOR CREW CHIEF Active MULTIVITAMINS TABS 1qd MULTIVITAMINS TABS MULTIPLE VITAMIN Inactive CHERATUSSIN AC SYRP prn as directed CHERATUSSIN AC SYRP GUAIFENESIN-CODEINE SYRP Inactive MECLIZINE HCL 25 MG TABS 1 prn MECLIZINE HCL 25 MG TABS 591868 MECLIZINE HCL Inactive ASPIRIN 81 MG TABS 1qd ASPIRIN 81 MG TABS 374671 ASPIRIN Inactive CLARITIN 10 MG TABS 1prn CLARITIN 10 MG TABS 500904 LORATADINE Inactive DOXYCYCLINE HYCLATE 100 MG ORAL CAPS Take one bid DOXYCYCLINE HYCLATE 100 MG ORAL CAPS 2423687 DOXYCYCLINE HYCLATE Inactive MUPIROCIN 2 % EXT OINT Use in each nostril in am and pm MUPIROCIN 2 % EXT OINT 750225 MUPIROCIN Inactive CHERATUSSIN AC 100-10 MG/5ML SYRP 1 tsp by mouth every 4 hours as needed for cough CHERATUSSIN AC 100-10 MG/5ML SYRP 691842 GUAIFENESIN-CODEINE Inactive LEVAQUIN 500 MG TAB 1 tablet by mouth daily LEVAQUIN 500 MG TAB 437053 LEVOFLOXACIN Inactive ZITHROMAX Z-CAROLYN 250 MG TABS 2x1day,4l3ditl ZITHROMAX Z-CAROLYN 250 MG TABS 0887172 AZITHROMYCIN Inactive ZITHROMAX 250 MG TAB 2 po today, then 1 po q days 2-5 ZITHROMAX 250 MG TAB 9236477 AZITHROMYCIN Inactive VITAMIN D3 66810 UNIT CAPS 1 pill by mouth weekly, for vitamin D deficiency VITAMIN D3 59283 UNIT CAPS CHOLECALCIFEROL Inactive DOXYCYCLINE HYCLATE 100 MG CAP 1 cap by mouth twice daily DOXYCYCLINE HYCLATE 100 MG CAP 6437771 DOXYCYCLINE HYCLATE Inactive Vital Signs Date Name [...] % 11.6-14.8 platelet count 326 10^3/MM^3 10*3/mm3 035-158 6248/02/10 leukocyte count, blood 2.3 10^3/MM^3 10*3/mm3 4.6-10.2 [...] % 11.6-14.8 platelet count 240 10^3/MM^3 10*3/mm3 421-104 0228/02/17 leukocyte count, blood 3.4 10^3/MM^3 10*3/mm3 4.6-10.2 [...] % 11.6-14.8 platelet count 308 10^3/MM^3 10*3/mm3 996-560 6133/02/25 leukocyte count, blood 6.6 10^3/MM^3 10*3/mm3 4.6-10.2 [...] % 11.6-14.8 platelet count 433 10^3/MM^3 10*3/mm3 543-174 7850/11/18 leukocyte count, blood 8.5 10^3/MM^3 10*3/mm3 4.6-10.2 [...] % 11.6-14.8 platelet count 143 10^3/MM^3 10*3/mm3 975-237 4481/11/25 leukocyte count, blood 2.1 10^3/MM^3 10*3/mm3 4.6-10.2 [...] % 11.6-14.8 platelet count 139 10^3/MM^3 10*3/mm3 542-326 9175/12/02 leukocyte count, blood 6.7 10^3/MM^3 10*3/mm3 4.6-10.2 [...] % 11.6-14.8 platelet count 258 10^3/MM^3 10*3/mm3 924-963 1577/12/09 leukocyte count, blood 5.3 10^3/MM^3 10*3/mm3 4.6-10.2 [...] % 11.6-14.8 platelet count 240 10^3/MM^3 10*3/mm3 353-201 4137/12/16 leukocyte count, blood 3.2 10^3/MM^3 10*3/mm3 4.6-10.2 [...] % 11.6-14.8 platelet count 158 10^3/MM^3 10*3/mm3 756-821 6292/12/18 leukocyte count, blood 8.8 10^3/MM^3 10*3/mm3 4.6-10.2 [...] % 11.6-14.8 platelet count 207 10^3/MM^3 10*3/mm3 885-520 0111/12/23 leukocyte count, blood 6.2 10^3/MM^3 10*3/mm3 4.6-10.2 [...] % 11.6-14.8 platelet count 183 10^3/MM^3 10*3/mm3 387-712 1739/11/11 leukocyte count, blood 2.0 10^3/MM^3 10*3/mm3 4.6-10.2 [...] % 11.6-14.8 platelet count 203 10^3/MM^3 10*3/mm3 566-954 5579/12/30 leukocyte count, blood 5.2 10^3/MM^3 10*3/mm3 4.6-10.2 [...] Panel - Chemistry sodium, serum 138 mmol/L 355-971 9500/11/04 carbon dioxide, venous blood 27.7 mmol/L 21.0-32.0 potassium, serum 4.9 mmol/L 3.5-5.2 chloride, serum 104 mmol/L 98-107 blood glucose 92 mg/dL 65-110 urea nitrogen, blood 24 mg/dL 7-18 creatinine, serum 0.95 mg/dL 0.55-1.30 alanine aminotransferase (SGPT), serum 34 U/L aspartate aminotransferase (SGOT), serum 23 U/L 15-37 calcium, serum 8.9 mg/dL 8.5-10.1 bilirubin, serum, total 0.70 mg/dL 0.00-1.00 sodium, serum 140 mmol/L 853-990 5986/01/06 carbon dioxide, venous blood 27.2 mmol/L 21.0-32.0 potassium, serum 4.1 mmol/L 3.5-5.2 chloride, serum 105 mmol/L 98-107 blood glucose 70 mg/dL 65-110 urea nitrogen, blood 25 mg/dL 7-18 creatinine, serum 0.90 mg/dL 0.55-1.30 alanine aminotransferase (SGPT), serum 28 U/L -78 aspartate aminotransferase (SGOT), serum 20 U/L 15-37 calcium, serum 8.9 mg/dL 8.5-10.1 bilirubin, serum, total 0.40 mg/dL 0.00-1.00 sodium, serum 140 mmol/L 705-632 3533/01/13 carbon dioxide, venous blood 26.4 mmol/L 21.0-32.0 [...] % 11.6-14.8 platelet count 297 10^3/MM^3 10*3/mm3 726-776 1258/01/13 leukocyte count, blood 5.2 10^3/MM^3 10*3/mm3 4.6-10.2 [...] % 11.6-14.8 platelet count 289 10^3/MM^3 10*3/mm3 298-526 2939/11/04 leukocyte count, blood 3.8 10^3/MM^3 10*3/mm3 4.6-10.2 [...] Panel - Chemistry sodium, serum 140 mmol/L 584-896 9829/07/13 potassium, serum 4.5 mmol/L 3.5-5.2 chloride, serum 106 mmol/L 98-107 carbon dioxide, venous blood 27.7 mmol/L 21.0-32.0 blood glucose 105 mg/dL 65-110 urea nitrogen, blood 14 mg/dL 7-18 creatinine, serum 0.90 mg/dL 0.60-1.30 alanine aminotransferase (SGPT), serum 29 U/L 12-78 aspartate aminotransferase (SGOT), serum 22 U/L 15-37 calcium, serum 9.4 mg/dL 8.5-10.1 bilirubin, serum, total 0.70 mg/dL 0.00-1.00 cholesterol, serum 160 mg/dL 002-547 2009/07/13 triglyceride, serum, fasting 63 mg/dL 30-200 HDL [...] Panel - Chemistry sodium, serum 141 mmol/L 077-233 7019/02/10 potassium, serum 5.2 mmol/L 3.5-5.2 chloride, serum 106 mmol/L 98-107 carbon dioxide, venous blood 27.8 mmol/L 21.0-32.0 blood glucose 111 mg/dL 65-110 urea nitrogen, blood 18 mg/dL 7-18 creatinine, serum 0.90 mg/dL 0.60-1.30 alanine aminotransferase (SGPT), serum 29 U/L 12-78 aspartate aminotransferase (SGOT), serum 21 U/L 15-37 calcium, serum 8.3 mg/dL 8.5-10.1 bilirubin, serum, total 0.40 mg/dL 0.00-1.00 sodium, serum 141 mmol/L 617-336 7309/11/18 carbon dioxide, venous blood 26.2 mmol/L 21.0-32.0 potassium, serum 4.4 mmol/L 3.5-5.2 chloride, serum 106 mmol/L 98-107 blood glucose 102 mg/dL 65-110 urea nitrogen, blood 24 mg/dL 7-18 creatinine, serum 0.77 mg/dL 0.55-1.30 alanine aminotransferase (SGPT), serum 30 U/L 12-78 aspartate aminotransferase (SGOT), serum 15 U/L 15-37 calcium, serum 8.3 mg/dL 8.5-10.1 bilirubin, serum, total 0.30 mg/dL 0.00-1.00 sodium, serum 139 mmol/L 326-826 7917/11/25 carbon dioxide, venous blood 27.9 mmol/L 21.0-32.0 potassium, serum 4.7 mmol/L 3.5-5.2 chloride, serum 105 mmol/L 98-107 blood glucose 94 mg/dL 65-110 urea nitrogen, blood 21 mg/dL 7-18 creatinine, serum 0.79 mg/dL 0.55-1.30 alanine aminotransferase (SGPT), serum 40 U/L aspartate aminotransferase (SGOT), serum 22 U/L - calcium, serum 8.5 mg/dL 8.5-10.1 bilirubin, serum, total 0.80 mg/dL 0.00-1.00 sodium, serum 139 mmol/L 066-484 1268/12/30 carbon dioxide, venous blood 28.2 mmol/L 21.0-32.0 potassium, serum 3.9 mmol/L 3.5-5.2 chloride, serum 105 mmol/L 98-107 blood glucose 91 mg/dL 65-110 urea nitrogen, blood 17 mg/dL 7- creatinine, serum 0.81 mg/dL 0.55-1.30 alanine aminotransferase (SGPT), serum 29 U/L aspartate aminotransferase (SGOT), serum 22 U/L - calcium, serum 8.8 mg/dL 8.5-10.1 bilirubin, serum, total 0.50 mg/dL 0.00-1.00 sodium, serum 141 mmol/L 959-562 8644/11/11 carbon dioxide, venous blood 26.8 mmol/L 21.0-32.0 potassium, serum 4.2 mmol/L 3.5-5.2 chloride, serum 106 mmol/L 98-107 blood glucose 95 mg/dL 65-110 urea nitrogen, blood 18 mg/dL 7-18 creatinine, serum 0.70 mg/dL 0.55-1.30 alanine aminotransferase (SGPT), serum 33 U/L -78 aspartate aminotransferase (SGOT), serum 22 U/L 15-37 calcium, serum 8.5 mg/dL 8.5-10.1 bilirubin, serum, total 0.30 mg/dL 0.00-1.00 sodium, serum 143 mmol/L 458-665 6980/12/23 carbon dioxide, venous blood 24.6 mmol/L 21.0-32.0 potassium, serum 4.1 mmol/L 3.5-5.2 chloride, serum 107 mmol/L 98-107 blood glucose 98 mg/dL 65-110 urea nitrogen, blood 22 mg/dL 7-18 creatinine, serum 0.77 mg/dL 0.55-1.30 alanine aminotransferase (SGPT), serum 28 U/L aspartate aminotransferase (SGOT), serum 20 U/L 15-37 calcium, serum 8.6 mg/dL 8.5-10.1 bilirubin, serum, total 0.30 mg/dL 0.00-1.00 sodium, serum 142 mmol/L 587-803 9247/12/09 carbon dioxide, venous blood 28.5 mmol/L 21.0-32.0 potassium, serum 5.0 mmol/L 3.5-5.2 chloride, serum 109 mmol/L 98-107 blood glucose 91 mg/dL 65-110 urea nitrogen, blood 27 mg/dL 7-18 creatinine, serum 0.88 mg/dL 0.55-1.30 alanine aminotransferase (SGPT), serum 31 U/L aspartate aminotransferase (SGOT), serum 18 U/L 15-37 calcium, serum 8.9 mg/dL 8.5-10.1 bilirubin, serum, total 0.40 mg/dL 0.00-1.00 sodium, serum 140 mmol/L 267-365 4306/12/16 carbon dioxide, venous blood 25.4 mmol/L 21.0-32.0 potassium, serum 4.1 mmol/L 3.5-5.2 chloride, serum 104 mmol/L 98-107 blood glucose 110 mg/dL 65-110 urea nitrogen, blood 24 mg/dL 7-18 creatinine, serum 0.87 mg/dL 0.55-1.30 alanine aminotransferase (SGPT), serum 35 U/L aspartate aminotransferase (SGOT), serum 21 U/L - calcium, serum 8.4 mg/dL 8.5-10.1 bilirubin, serum, total 0.50 mg/dL 0.00-1.00 sodium, serum 141 mmol/L 085-180 6746/12/02 carbon dioxide, venous blood 25.9 mmol/L 21.0-32.0 potassium, serum 4.7 mmol/L 3.5-5.2 chloride, serum 106 mmol/L 98-107 blood glucose 78 mg/dL 65-110 urea nitrogen, blood 24 mg/dL 7-18 creatinine, serum 0.75 mg/dL 0.55-1.30 alanine aminotransferase (SGPT), serum 31 U/L aspartate aminotransferase (SGOT), serum 20 U/L 15-37 calcium, serum 8.7 mg/dL 8.5-10.1 bilirubin, serum, total 0.30 mg/dL 0.00-1.00 Lab Report: VITAMIN D, 25-HYDROXY/71119 - Chemistry vitamin D 25-hydroxy, serum 24 ng/mL 30-100 Encounters Code Encounter Date Provider Facility CPT-57669 Level 2 Est. Patient 14:30:43 PARAMEDIC Marta Viramontes [facility] CPT-28128 Level 4 Est. Patient 09:14:36 PARAMEDIC Rikki GRANADOS [facility] CPT-58796 Level 2 Est. Patient 09:07:32 CDT Marta Viramontes [facility] CPT-12633 Level 4 Est. Patient 11:55:00 CDT Rikki GRANADOS [facility] CPT-79100 Level 3 Est. Patient 13:25:16 CDT Jennifer Chun MD PhD [facility] CPT-53579 Level 3 Est. Patient 17:31:22 CDT Solomon Alamo MD [facility] CPT-02339 Level 3 Est. Patient 08:02:14 CDT Solomon Alamo MD [facility] CPT-09632 Level 3 Est. Patient 17:23:53 CDT Rikki GRANADOS [facility] CPT-04690 Level 3 Est. Patient 11:22:41 CDT Darryn Hearn [facility] Procedures Code Procedure Name Date Entry Date Standard Description CPT-19867 Venipuncture Draw Fee 09:22:28 PARAMEDIC CPT-76699 Chest 2V Frontal and Lat 09:22:27 PARAMEDIC CPT-I/D I/D Abscess 09:43:13 CDT CPT-76317 Venipuncture Draw Fee 08:16:46 PARAMEDIC CPT-23979 Venipuncture Draw Fee 08:18:55 PARAMEDIC CPT-31473 Venipuncture Draw Fee 08:31:18 PARAMEDIC CPT-28989 Venipuncture Draw Fee 11:42:52 PARAMEDIC CPT-26036 Venipuncture Draw Fee 13:26:37 PARAMEDIC CPT-11963 Venipuncture Draw Fee 09:23:38 PARAMEDIC CPT-000 Give Appropriate Tetanus Booster 10:23:50 CDT CPT-09962 Bone Density 08:28:45 CDT CPT-70836 Bone Density 11:35:15 CDT CPT-PV Prev. Care Visit 12:19:00 CDT CPT-05181 Venipuncture Draw Fee 15:02:58 CDT
--- OUTSIDE RECORDS SUMMARY | 2018-01-19 06:57 | XMS REPORT | Clinical Summary ---
Author Author Admin, E Organization [facility] Address Unknown Phone Unavailable Allergies, Adverse Reactions, Alerts Allergy Name Reaction Description Start Date Severity Status Provider SULFA facial swelling Critical Active Jocelyne Naff FAMILY HEALTH NURSE PRACTITIONER Conditions or Problems Problem Name Problem Code Onset Date Status Entry Date Provider Comment Standard Description Annotate G E R D 530.81 Active Jocelyne Naff FAMILY HEALTH NURSE PRACTITIONER Esophageal reflux FH COLON CANCER V16.0 Active Jocelyne Naff FAMILY HEALTH NURSE PRACTITIONER Family history of malignant neoplasm of gastrointestinal [...] Routine gynecological examination Postmenopausal status V49.81 Active Cahnte Black RMA Asymptomatic postmenopausal status (age-related) (natural) Breast cancer 174.9 Active Kailee Rachel RMA Malignant neoplasm of breast (female), unspecified Vitamin D deficiency 268.9 Active Jennifer Chun MD PhD Unspecified vitamin D deficiency Soft tissue infection 528.9 Active Rikki GRANADOS Other and unspecified diseases of the oral soft tissues Abscess, skin 682.9 Active Darryn Hearn PA Cellulitis and abscess of unspecified sites Cellulitis, 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 Rikki Stearns PA Cellulitis and abscess of unspecified sites Breast microcalcification ICD-793.81 Inactive Jennifer Chun MD PhD Abnormal Mammogram ICD-793.80 Inactive Jennifer Chun MD PhD Medication List Medication Instructions Start Date Stop Date Generic Name NDC Status Provider Patient Instruction CLARITIN 10 MG TABS 1prn LORATADINE 37613225575 No Longer Active Jocelyne Naff FAMILY HEALTH NURSE PRACTITIONER Active ASPIRIN 81 MG TABS 1qd ASPIRIN 53652963663 No Longer Active Jocelyne Naff FAMILY HEALTH NURSE PRACTITIONER Active DOXYCYCLINE HYCLATE 100 MG ORAL CAPS Take one bid DOXYCYCLINE HYCLATE 36177913066 Active Jocelyne Naff FAMILY HEALTH NURSE PRACTITIONER Active DOXYCYCLINE HYCLATE 100 MG CAP 1 cap by mouth twice daily DOXYCYCLINE HYCLATE 74406167342 No Longer Active Rikki GRANADOS Active VITAMIN D3 15668 UNIT CAPS 1 pill by mouth weekly, for vitamin D deficiency CHOLECALCIFEROL 43579811873 Active Jennifer Chun MD PhD Active ANASTROZOLE 1 MG ORAL TABS Take one by mouth daily ANASTROZOLE 18158329884 Active Jennifer Chun MD PhD Active ZITHROMAX 250 MG TAB 2 po today, then 1 po q days 2-5 AZITHROMYCIN 66760497521 No Longer Active Rikki GRANADOS Active MECLIZINE HCL 25 MG TABS 1 prn MECLIZINE HCL 83795593645 No Longer Active Solomon Alamo MD Active CHERATUSSIN AC SYRP prn as directed GUAIFENESIN- CODEINE SYRP 02531103718 No Longer Active Rikki Harms PA Active MULTIVITAMINS TABS 1qd MULTIPLE VITAMIN 17377398669 No Longer Active Rikki Harms PA Active OMEPRAZOLE 20 MG CPDR 1 PO Q D OMEPRAZOLE 59243232006 Active Rikki Harms PA Active ZITHROMAX Z-CAROLYN 250 MG TABS 2x1day,5z4nypb AZITHROMYCIN 64401624472 No Longer Active Jocelyne Liliya FAMILY HEALTH NURSE PRACTITIONER Active MULTIVITAMINS TABS 1qd MULTIVITAMINS TABS MULTIPLE VITAMIN Inactive CHERATUSSIN AC SYRP prn as directed CHERATUSSIN AC SYRP GUAIFENESIN-CODEINE SYRP Inactive MECLIZINE HCL 25 MG TABS 1 prn MECLIZINE HCL 25 MG TABS 808213 MECLIZINE HCL Inactive ASPIRIN 81 MG TABS 1qd ASPIRIN 81 MG TABS 358673 ASPIRIN Inactive CLARITIN 10 MG TABS 1prn CLARITIN 10 MG TABS 439154 LORATADINE Inactive ZITHROMAX Z-CAROLYN 250 MG TABS 2x1day,3o9fvsc ZITHROMAX Z-CAROLYN 250 MG TABS 4742339 AZITHROMYCIN Inactive ZITHROMAX 250 MG TAB 2 po today, then 1 po q days 2-5 ZITHROMAX 250 MG TAB 4434405 AZITHROMYCIN Inactive DOXYCYCLINE HYCLATE 100 MG CAP 1 cap by mouth twice daily DOXYCYCLINE HYCLATE 100 MG CAP 9421200 DOXYCYCLINE HYCLATE Inactive Vital Signs Date Name Value Unit Range Description blood pressure, diastolic - 8462-4 74 mm[Hg] [...] % 11.6-14.8 platelet count 131 10^3/MM^3 10*3/mm3 976-695 8692/12/12 leukocyte count, blood 28.6 10^3/MM^3 10*3/mm3 4.6-10.2 [...] % 11.6-14.8 platelet count 237 10^3/MM^3 10*3/mm3 539-743 9711/12/23 leukocyte count, blood 6.9 10^3/MM^3 10*3/mm3 4.6-10.2 [...] % 11.6-14.8 platelet count 360 10^3/MM^3 10*3/mm3 787-990 2569/12/31 leukocyte count, blood 5.3 10^3/MM^3 10*3/mm3 4.6-10.2 [...] % 11.6-14.8 platelet count 222 10^3/MM^3 10*3/mm3 908-798 9840/01/07 leukocyte count, blood 11.7 10^3/MM^3 10*3/mm3 4.6-10.2 [...] % 11.6-14.8 platelet count 191 10^3/MM^3 10*3/mm3 661-157 1882/01/20 leukocyte count, blood 9.8 10^3/MM^3 10*3/mm3 4.6-10.2 [...] % 11.6-14.8 platelet count 195 10^3/MM^3 10*3/mm3 152-482 3225/01/28 leukocyte count, blood 11.9 10^3/MM^3 10*3/mm3 4.6-10.2 [...] % 11.6-14.8 platelet count 278 10^3/MM^3 10*3/mm3 949-780 6663/02/04 leukocyte count, blood 8.5 10^3/MM^3 10*3/mm3 4.6-10.2 [...] % 11.6-14.8 platelet count 326 10^3/MM^3 10*3/mm3 672-250 5588/02/10 leukocyte count, blood 2.3 10^3/MM^3 10*3/mm3 4.6-10.2 [...] % 11.6-14.8 platelet count 240 10^3/MM^3 10*3/mm3 657-778 1648/02/17 leukocyte count, blood 3.4 10^3/MM^3 10*3/mm3 4.6-10.2 [...] % 11.6-14.8 platelet count 308 10^3/MM^3 10*3/mm3 912-601 9262/02/25 leukocyte count, blood 6.6 10^3/MM^3 10*3/mm3 4.6-10.2 [...] Panel - Chemistry sodium, serum 144 mmol/L 794-929 3559/12/16 potassium, serum 4.5 mmol/L 3.5-5.2 chloride, serum 107 mmol/L 98-107 carbon dioxide, venous blood 31.4 mmol/L 21.0-32.0 blood glucose 104 mg/dL 65-110 urea nitrogen, blood 17 mg/dL 7-18 creatinine, serum 1.10 mg/dL 0.60-1.30 alanine aminotransferase (SGPT), serum 25 U/L 12-78 aspartate aminotransferase (SGOT), serum 24 U/L 15-37 calcium, serum 8.4 mg/dL 8.5-10.1 bilirubin, serum, total 0.20 mg/dL 0.00-1.00 sodium, serum 141 mmol/L 901-085 1656/01/14 potassium, serum 4.9 mmol/L 3.5-5.2 chloride, serum [...] % 11.6-14.8 platelet count 376 10^3/MM^3 10*3/mm3 318-363 4834/12/16 leukocyte count, blood 19.5 10^3/MM^3 10*3/mm3 4.6-10.2 [...] Panel - Chemistry sodium, serum 140 mmol/L 072-903 1499/07/13 potassium, serum 4.5 mmol/L 3.5-5.2 chloride, serum 106 mmol/L 98-107 carbon dioxide, venous blood 27.7 mmol/L 21.0-32.0 blood glucose 105 mg/dL 65-110 urea nitrogen, blood 14 mg/dL 7-18 creatinine, serum 0.90 mg/dL 0.60-1.30 alanine aminotransferase (SGPT), serum 29 U/L 12-78 aspartate aminotransferase (SGOT), serum 22 U/L 15-37 calcium, serum 9.4 mg/dL 8.5-10.1 bilirubin, serum, total 0.70 mg/dL 0.00-1.00 cholesterol, serum 160 mg/dL 732-972 1996/07/13 triglyceride, serum, fasting 63 mg/dL 30-200 HDL [...] Panel - Chemistry sodium, serum 141 mmol/L 583-341 8268/02/10 potassium, serum 5.2 mmol/L 3.5-5.2 chloride, serum 106 mmol/L 98-107 carbon dioxide, venous blood 27.8 mmol/L 21.0-32.0 blood glucose 111 mg/dL 65-110 urea nitrogen, blood 18 mg/dL 7-18 creatinine, serum 0.90 mg/dL 0.60-1.30 alanine aminotransferase (SGPT), serum 29 U/L 12-78 aspartate aminotransferase (SGOT), serum 21 U/L 15-37 calcium, serum 8.3 mg/dL 8.5-10.1 bilirubin, serum, total 0.40 mg/dL 0.00-1.00 Lab Report: VITAMIN D, 25-HYDROXY/21453 - Chemistry vitamin D 25-hydroxy, serum 24 ng/mL 30-100 Encounters Code Encounter Date Provider Facility CPT-94992 Level 4 Est. Patient 11:55:00 CDT Rikki Stearns [facility] [place] CPT-03063 Level 3 Est. Patient 13:25:16 CDT Jennifer Chun MD [facility] CPT-91389 Level 3 Est. Patient 17:31:22 CDT Solomon Alamo MD [facility] CPT-16444 Level 3 Est. Patient 08:02:14 CDT Solomon Alamo MD [facility] CPT-50995 Level 3 Est. Patient 17:23:53 CDT Rikki Stearns [facility] [place] CPT-61166 Level 3 Est. Patient 11:22:41 CDT Darryn Hearn [facility] [place] Procedures Code Procedure Name Date Entry Date Standard Description CPT-I/D I/D Abscess 09:43:13 CDT CPT-28743 Venipuncture Draw Fee 08:16:46 HEAD CASHIER CPT-98147 Venipuncture Draw Fee 08:18:55 HEAD CASHIER CPT-80448 Venipuncture Draw Fee 08:31:18 HEAD CASHIER CPT-11887 Venipuncture Draw Fee 11:42:52 HEAD CASHIER CPT-79882 Venipuncture Draw Fee 13:26:37 HEAD CASHIER CPT-93539 Venipuncture Draw Fee 09:23:38 HEAD CASHIER CPT-000 Give Appropriate Tetanus Booster 10:23:50 CDT CPT-90613 Bone Density 08:28:45 CDT CPT-51613 Bone Density 11:35:15 CDT CPT-PV Prev. Care Visit 12:19:00 CDT CPT-82627 Venipuncture Draw Fee 15:02:58 CDT
--- OUTSIDE RECORDS SUMMARY | 2018-01-19 06:58 | XMS REPORT | Clinical Summary ---
Author Author Admin, E Organization [facility] Address Unknown Phone Unavailable Allergies, Adverse Reactions, Alerts Allergy Name Reaction Description Start Date Severity Status Provider SULFA facial swelling Critical Active Jocelyne Naff REGULATORY ANALYST Conditions or Problems Problem Name Problem Code Onset Date Status Entry Date Provider Comment Standard Description Annotate G E R D 530.81 Active Jocelyne Naff REGULATORY ANALYST Esophageal reflux FH COLON CANCER V16.0 Active Jocelyne Naff REGULATORY ANALYST Family history of malignant neoplasm of [...] (age-related) (natural) Breast cancer 174.9 Active Kailee aRchel RMA Malignant neoplasm of breast (female), unspecified [...] unspecified sites Rash 782.1 Active Marta Viramontes DIRECTOR OF HOUSING AND ENERGY SERVICES Rash and other nonspecific skin eruption Adenocarcinoma, [...] Active Rikki GRANADOS Encounter for antineoplastic chemotherapy Cough, chronic 786.2 Active Rikki GRANADOS Cough Breast microcalcification ICD-793.81 Inactive Jennifer Chun [...] 5, 1 tab on day 6 METHYLPREDNISOLONE 75342543276 No Longer Active Rikki GRAANDOS Active ALBUTEROL SULFATE 0.083 % NEBU SOLN one vial per nebulizer every 4-6 hours as needed ALBUTEROL SULFATE 57361329691 Active Rikki Harms PA Active LEVAQUIN 750 MG TABS 1 po qd x 7 days LEVOFLOXACIN 98382961854 No Longer Active Rikki Harms PA Active LEVAQUIN 500 MG ORAL TABS Take one tablet daily LEVOFLOXACIN 63685161841 No Longer Active Rikki Harms PA Active PROAIR HFA 108 (90 BASE) MCG/ACT AERS 2 puffs four times a day as needed 2014 ALBUTEROL SULFATE 34837504162 Active Marta Yokum DIRECTOR OF HOUSING AND ENERGY SERVICES Active TUSSIONEX PENNKINETIC ER 10-8 MG/5ML LQCR 5ml po q12hr PRN Cough HYDROCOD POLST-CHLORPHEN POLST 43697532778 Active Rikki Harms PA Active FLONASE ALLERGY RELIEF 50 MCG/ACT NASAL SUSP spray twice in each nostril one time daily FLUTICASONE PROPIONATE 44414342160 Active Marta Yokum DIRECTOR OF HOUSING AND ENERGY SERVICES Active LEVAQUIN 500 MG TAB 1 tablet by mouth daily LEVOFLOXACIN 53865369128 No Longer Active Marta Yokum DIRECTOR OF HOUSING AND ENERGY SERVICES Active BENZONATATE 200 MG ORAL CAPS One capsule tid. BENZONATATE 98045184632 Active Marta Yokum DIRECTOR OF HOUSING AND ENERGY SERVICES Active CHERATUSSIN AC 100-10 MG/5ML SYRP 1 tsp by mouth every 4 hours as needed for cough GUAIFENESIN-CODEINE 04361604185 No Longer Active Rikki Harms PA Active MUPIROCIN 2 % EXT OINT Use in each nostril in am and pm MUPIROCIN 11368312650 No Longer Active Rikki Harms PA Active DOXYCYCLINE HYCLATE 100 MG ORAL CAPS Take one bid DOXYCYCLINE HYCLATE 34568863272 No Longer Active Rikki Harms PA Active CLARITIN 10 MG TABS 1prn LORATADINE 72368158412 No Longer Active Jocelyne Naff REGULATORY ANALYST Active ASPIRIN 81 MG TABS 1qd ASPIRIN 12411784340 No Longer Active Jocelyne Naff REGULATORY ANALYST Active DOXYCYCLINE HYCLATE 100 MG CAP 1 cap by mouth twice daily DOXYCYCLINE HYCLATE 04071851385 No Longer Active Rikki Harms PA Active VITAMIN D3 69444 UNIT CAPS 1 pill by mouth weekly, for vitamin D deficiency CHOLECALCIFEROL 40126156819 No Longer Active Jennifer Chun MD PhD Active ANASTROZOLE 1 MG ORAL TABS Take one by mouth daily ANASTROZOLE 18109318673 Active Jennifer Chun MD PhD Active ZITHROMAX 250 MG TAB 2 po today, then 1 po q days 2-5 AZITHROMYCIN 02944602777 No Longer Active Rikki Harms PA Active MECLIZINE HCL 25 MG TABS 1 prn MECLIZINE HCL 22563170538 No Longer Active Solomon Alamo MD Active CHERATUSSIN AC SYRP prn as directed GUAIFENESIN- CODEINE SYRP 92531537795 No Longer Active Rikki Harms PA Active MULTIVITAMINS TABS 1qd MULTIPLE VITAMIN 81573846790 No Longer Active Rikki Harms PA Active OMEPRAZOLE 20 MG CPDR 1 PO Q D OMEPRAZOLE 58897317038 Active Rikki Harms PA Active ZITHROMAX Z-CAROLYN 250 MG TABS 2x1day,6w2jckm AZITHROMYCIN 66623107658 No Longer Active Jocelyne Naff REGULATORY ANALYST Active MULTIVITAMINS TABS 1qd MULTIVITAMINS TABS MULTIPLE VITAMIN Inactive CHERATUSSIN AC SYRP prn as directed CHERATUSSIN AC SYRP GUAIFENESIN-CODEINE SYRP Inactive MECLIZINE HCL 25 MG TABS 1 prn MECLIZINE HCL 25 MG TABS 473138 MECLIZINE HCL Inactive ASPIRIN 81 MG TABS 1qd ASPIRIN 81 MG TABS 975001 ASPIRIN Inactive CLARITIN 10 MG TABS 1prn CLARITIN 10 MG TABS 320382 LORATADINE Inactive DOXYCYCLINE HYCLATE 100 MG ORAL CAPS Take one bid DOXYCYCLINE HYCLATE 100 MG ORAL CAPS 7403989 DOXYCYCLINE HYCLATE Inactive MUPIROCIN 2 % EXT OINT Use in each nostril in am and pm MUPIROCIN 2 % EXT OINT 393843 MUPIROCIN Inactive CHERATUSSIN AC 100-10 MG/5ML SYRP 1 tsp by mouth every 4 hours as needed for cough CHERATUSSIN AC 100-10 MG/5ML SYRP 397640 GUAIFENESIN-CODEINE Inactive LEVAQUIN 500 MG TAB 1 tablet by mouth daily LEVAQUIN 500 MG TAB 680660 LEVOFLOXACIN Inactive LEVAQUIN 500 MG ORAL TABS Take one tablet daily LEVAQUIN 500 MG ORAL TABS 987794 LEVOFLOXACIN Inactive LEVAQUIN 750 MG TABS 1 po qd x 7 days LEVAQUIN 750 MG TABS 913094 LEVOFLOXACIN Inactive ZITHROMAX Z-CAROLYN 250 MG TABS 2x1day,9x7lovz ZITHROMAX Z-CAORLYN 250 MG TABS 9784200 AZITHROMYCIN Inactive ZITHROMAX 250 MG TAB 2 po today, then 1 po q days 2-5 ZITHROMAX 250 MG TAB 9182526 AZITHROMYCIN Inactive VITAMIN D3 84055 UNIT CAPS 1 pill by mouth weekly, for vitamin D deficiency VITAMIN D3 83344 UNIT CAPS CHOLECALCIFEROL Inactive DOXYCYCLINE HYCLATE 100 MG CAP 1 cap by mouth twice daily DOXYCYCLINE HYCLATE 100 MG CAP 5006077 DOXYCYCLINE HYCLATE Inactive MEDROL (CAROLYN) 4 MG TABS 6 tabs on day 1, 5 tabs on day 2, 4 tabs on day 3, 3 tabs on day 4, 2 tabs on day 5, 1 tab on day 6 MEDROL ( CAROLYN) 4 MG TABS METHYLPREDNISOLONE Inactive Vital Signs Date Name Value Unit Range Description blood pressure, diastolic - 8462-4 68 mm[Hg] [...] % 11.6-14.8 platelet count 143 10^3/MM^3 10*3/mm3 252-185 1368/11/25 leukocyte count, blood 2.1 10^3/MM^3 10*3/mm3 4.6-10.2 [...] % 11.6-14.8 platelet count 139 10^3/MM^3 10*3/mm3 650-263 3680/12/02 leukocyte count, blood 6.7 10^3/MM^3 10*3/mm3 4.6-10.2 [...] % 11.6-14.8 platelet count 258 10^3/MM^3 10*3/mm3 995-274 8131/12/09 leukocyte count, blood 5.3 10^3/MM^3 10*3/mm3 4.6-10.2 [...] % 11.6-14.8 platelet count 240 10^3/MM^3 10*3/mm3 475-861 1157/12/16 leukocyte count, blood 3.2 10^3/MM^3 10*3/mm3 4.6-10.2 [...] % 11.6-14.8 platelet count 158 10^3/MM^3 10*3/mm3 768-524 2476/12/18 leukocyte count, blood 8.8 10^3/MM^3 10*3/mm3 4.6-10.2 [...] % 11.6-14.8 platelet count 207 10^3/MM^3 10*3/mm3 401-667 0723/12/23 leukocyte count, blood 6.2 10^3/MM^3 10*3/mm3 4.6-10.2 [...] % 11.6-14.8 platelet count 183 10^3/MM^3 10*3/mm3 865-092 4078/11/11 leukocyte count, blood 2.0 10^3/MM^3 10*3/mm3 4.6-10.2 [...] % 11.6-14.8 platelet count 203 10^3/MM^3 10*3/mm3 848-436 9105/12/30 leukocyte count, blood 5.2 10^3/MM^3 10*3/mm3 4.6-10.2 [...] % 11.6-14.8 platelet count 200 10^3/MM^3 10*3/mm3 864-235 7060/03/02 leukocyte count, blood 5.1 10^3/MM^3 10*3/mm3 4.6-10.2 [...] % 11.6-14.8 platelet count 269 10^3/MM^3 10*3/mm3 142-424 Lab Report: CBC W/DIFF, Comp. Metabolic Panel - Chemistry sodium, serum 142 mmol/L 982-944 2734/02/04 carbon dioxide, venous blood 24.9 mmol/L 21.0-32.0 potassium, serum 4.1 mmol/L 3.5-5.2 chloride, serum 106 mmol/L 98-107 blood glucose 103 mg/dL 65-110 urea nitrogen, blood 25 mg/dL 7-18 creatinine, serum 0.83 mg/dL 0.55-1.30 alanine aminotransferase (SGPT), serum 38 U/L 12-78 aspartate aminotransferase (SGOT), serum 26 U/L 15-37 calcium, serum 8.7 mg/dL 8.5-10.1 bilirubin, serum, total 0.30 mg/dL 0.00-1.00 sodium, serum 140 mmol/L 668-495 5142/01/13 carbon dioxide, venous blood 26.4 mmol/L 21.0-32.0 potassium, serum 4.2 mmol/L 3.5-5.2 chloride, serum 104 mmol/L 98-107 blood glucose 101 mg/dL 65-110 urea nitrogen, blood 18 mg/dL 7-18 creatinine, serum 0.80 mg/dL 0.55-1.30 alanine aminotransferase (SGPT), serum 28 U/L aspartate aminotransferase (SGOT), serum 24 U/L 15-37 calcium, serum 8.7 mg/dL 8.5-10.1 bilirubin, serum, total 0.50 mg/dL 0.00-1.00 sodium, serum 138 mmol/L 166-328 6566/11/04 carbon dioxide, venous blood 27.7 mmol/L 21.0-32.0 potassium, serum 4.9 mmol/L 3.5-5.2 chloride, serum 104 mmol/L 98-107 blood glucose 92 mg/dL 65-110 urea nitrogen, blood 24 mg/dL 7-18 creatinine, serum 0.95 mg/dL 0.55-1.30 alanine aminotransferase (SGPT), serum 34 U/L aspartate aminotransferase (SGOT), serum 23 U/L - calcium, serum 8.9 mg/dL 8.5-10.1 bilirubin, serum, total 0.70 mg/dL 0.00-1.00 sodium, serum 140 mmol/L 396-446 8512/01/06 carbon dioxide, venous blood 27.2 mmol/L 21.0-32.0 [...] Metabolic Panel - Hematology leukocyte count, blood 5.2 10^3/MM^3 10*3/mm3 4.6-10.2 [...] % 11.6-14.8 platelet count 289 10^3/MM^3 10*3/mm3 493-594 4218/01/06 leukocyte count, blood 4.1 10^3/MM^3 10*3/mm3 4.6-10.2 [...] % 11.6-14.8 platelet count 297 10^3/MM^3 10*3/mm3 436-165 6494/02/04 leukocyte count, blood 4.2 10^3/MM^3 10*3/mm3 4.6-10.2 [...] % 11.6-14.8 platelet count 271 10^3/MM^3 10*3/mm3 789-304 9542/11/04 leukocyte count, blood 3.8 10^3/MM^3 10*3/mm3 4.6-10.2 [...] Panel - Chemistry sodium, serum 140 mmol/L 401-532 1730/07/13 potassium, serum 4.5 mmol/L 3.5-5.2 chloride, serum 106 mmol/L 98-107 carbon dioxide, venous blood 27.7 mmol/L 21.0-32.0 blood glucose 105 mg/dL 65-110 urea nitrogen, blood 14 mg/dL 7-18 creatinine, serum 0.90 mg/dL 0.60-1.30 alanine aminotransferase (SGPT), serum 29 U/L 12-78 aspartate aminotransferase (SGOT), serum 22 U/L 15-37 calcium, serum 9.4 mg/dL 8.5-10.1 bilirubin, serum, total 0.70 mg/dL 0.00-1.00 cholesterol, serum 160 mg/dL 957-000 0597/07/13 triglyceride, serum, fasting 63 mg/dL 30-200 HDL [...] Panel - Chemistry sodium, serum 141 mmol/L 934-904 8943/11/18 carbon dioxide, venous blood 26.2 mmol/L 21.0-32.0 potassium, serum 4.4 mmol/L 3.5-5.2 chloride, serum 106 mmol/L 98-107 blood glucose 102 mg/dL 65-110 urea nitrogen, blood 24 mg/dL 7-18 creatinine, serum 0.77 mg/dL 0.55-1.30 alanine aminotransferase (SGPT), serum 30 U/L 12-78 aspartate aminotransferase (SGOT), serum 15 U/L 15-37 calcium, serum 8.3 mg/dL 8.5-10.1 bilirubin, serum, total 0.30 mg/dL 0.00-1.00 sodium, serum 139 mmol/L 386-336 8679/11/25 carbon dioxide, venous blood 27.9 mmol/L 21.0-32.0 potassium, serum 4.7 mmol/L 3.5-5.2 chloride, serum 105 mmol/L 98-107 blood glucose 94 mg/dL 65-110 urea nitrogen, blood 21 mg/dL 7-18 creatinine, serum 0.79 mg/dL 0.55-1.30 alanine aminotransferase (SGPT), serum 40 U/L aspartate aminotransferase (SGOT), serum 22 U/L 15-37 calcium, serum 8.5 mg/dL 8.5-10.1 bilirubin, serum, total 0.80 mg/dL 0.00-1.00 sodium, serum 142 mmol/L 487-085 4665/12/09 carbon dioxide, venous blood 28.5 mmol/L 21.0-32.0 potassium, serum 5.0 mmol/L 3.5-5.2 chloride, serum 109 mmol/L 98-107 blood glucose 91 mg/dL 65-110 urea nitrogen, blood 27 mg/dL - creatinine, serum 0.88 mg/dL 0.55-1.30 alanine aminotransferase (SGPT), serum 31 U/L aspartate aminotransferase (SGOT), serum 18 U/L 15-37 calcium, serum 8.9 mg/dL 8.5-10.1 bilirubin, serum, total 0.40 mg/dL 0.00-1.00 sodium, serum 140 mmol/L 327-865 4214/12/16 carbon dioxide, venous blood 25.4 mmol/L 21.0-32.0 potassium, serum 4.1 mmol/L 3.5-5.2 chloride, serum 104 mmol/L 98-107 blood glucose 110 mg/dL 65-110 urea nitrogen, blood 24 mg/dL 7- creatinine, serum 0.87 mg/dL 0.55-1.30 alanine aminotransferase (SGPT), serum 35 U/L aspartate aminotransferase (SGOT), serum 21 U/L 15-37 calcium, serum 8.4 mg/dL 8.5-10.1 bilirubin, serum, total 0.50 mg/dL 0.00-1.00 sodium, serum 141 mmol/L 029-458 6082/12/02 carbon dioxide, venous blood 25.9 mmol/L 21.0-32.0 potassium, serum 4.7 mmol/L 3.5-5.2 chloride, serum 106 mmol/L 98-107 blood glucose 78 mg/dL 65-110 urea nitrogen, blood 24 mg/dL 7-18 creatinine, serum 0.75 mg/dL 0.55-1.30 alanine aminotransferase (SGPT), serum 31 U/L aspartate aminotransferase (SGOT), serum 20 U/L -37 calcium, serum 8.7 mg/dL 8.5-10.1 bilirubin, serum, total 0.30 mg/dL 0.00-1.00 sodium, serum 139 mmol/L 318-012 1237/12/30 carbon dioxide, venous blood 28.2 mmol/L 21.0-32.0 potassium, serum 3.9 mmol/L 3.5-5.2 chloride, serum 105 mmol/L 98-107 blood glucose 91 mg/dL 65-110 urea nitrogen, blood 17 mg/dL 7-18 creatinine, serum 0.81 mg/dL 0.55-1.30 alanine aminotransferase (SGPT), serum 29 U/L aspartate aminotransferase (SGOT), serum 22 U/L 15-37 calcium, serum 8.8 mg/dL 8.5-10.1 bilirubin, serum, total 0.50 mg/dL 0.00-1.00 sodium, serum 141 mmol/L 419-135 1396/11/11 carbon dioxide, venous blood 26.8 mmol/L 21.0-32.0 potassium, serum 4.2 mmol/L 3.5-5.2 chloride, serum 106 mmol/L 98-107 blood glucose 95 mg/dL 65-110 urea nitrogen, blood 18 mg/dL 7-18 creatinine, serum 0.70 mg/dL 0.55-1.30 alanine aminotransferase (SGPT), serum 33 U/L 12-78 aspartate aminotransferase (SGOT), serum 22 U/L 15-37 calcium, serum 8.5 mg/dL 8.5-10.1 bilirubin, serum, total 0.30 mg/dL 0.00-1.00 sodium, serum 143 mmol/L 692-470 0191/12/23 carbon dioxide, venous blood 24.6 mmol/L 21.0-32.0 potassium, serum 4.1 mmol/L 3.5-5.2 chloride, serum 107 mmol/L 98-107 blood glucose 98 mg/dL 65-110 urea nitrogen, blood 22 mg/dL 7-18 creatinine, serum 0.77 mg/dL 0.55-1.30 alanine aminotransferase (SGPT), serum 28 U/L -78 aspartate aminotransferase (SGOT), serum 20 U/L 15-37 calcium, serum 8.6 mg/dL 8.5-10.1 bilirubin, serum, total 0.30 mg/dL 0.00-1.00 Lab Report: VITAMIN D, 25-HYDROXY/85123 - Chemistry vitamin D 25-hydroxy, serum 24 ng/mL 30-100 Encounters Code Encounter Date Provider Facility CPT-46004 Level 2 Est. Patient 14:30:43 PATCH WORKER Marta Viramontes [facility] CPT-29871 Level 4 Est. Patient 09:14:36 PATCH WORKER Rikki GRANADOS [facility] CPT-48965 Level 2 Est. Patient 09:07:32 CDT Marta Viramontes DIRECTOR OF HOUSING AND ENERGY SERVICES [facility] CPT-25498 Level 4 Est. Patient 11:55:00 CDT Rikki GRANADOS [facility] CPT-15256 Level 3 Est. Patient 13:25:16 CDT Jennifer Chun MD PhD [facility] CPT-39434 Level 3 Est. Patient 17:31:22 CDT Solomon Alamo MD [facility] CPT-36494 Level 3 Est. Patient 08:02:14 CDT Solomon Alamo MD [facility] CPT-66334 Level 3 Est. Patient 17:23:53 CDT Rikki GRANADOS [facility] CPT-64129 Level 3 Est. Patient 11:22:[address] [facility] [place] Procedures Code Procedure Name Date Entry Date Standard Description CPT-26969 Chest 2V Frontal and Lat 10:57:00 PATCH WORKER CPT-61413 Venipuncture Draw Fee 10:56:59 PATCH WORKER CPT-47807 Venipuncture Draw Fee 09:22:28 PATCH WORKER CPT-53555 Chest 2V Frontal and Lat 09:22:27 PATCH WORKER CPT-I/D I/D Abscess 09:43:13 CDT CPT-34076 Venipuncture Draw Fee 08:16:46 PATCH WORKER CPT-33376 Venipuncture Draw Fee 08:18:55 PATCH WORKER CPT-34034 Venipuncture Draw Fee 08:31:18 PATCH WORKER CPT-30486 Venipuncture Draw Fee 11:42:52 PATCH WORKER CPT-15886 Venipuncture Draw Fee 13:26:37 PATCH WORKER CPT-48779 Venipuncture Draw Fee 09:23:38 PATCH WORKER CPT-000 Give Appropriate Tetanus Booster 10:23:50 CDT CPT-80654 Bone Density 08:28:45 CDT CPT-85648 Bone Density 11:35:15 CDT CPT-PV Prev. Care Visit 12:19:00 CDT CPT-81689 Venipuncture Draw Fee 15:02:58 CDT
--- OUTSIDE RECORDS SUMMARY | 2018-01-19 06:58 | XMS REPORT | Clinical Summary ---
Author Author Admin, E Organization [facility] Address Unknown Phone Unavailable Allergies, Adverse Reactions, Alerts Allergy Name Reaction Description Start Date Severity Status Provider SULFA facial swelling Critical Active Jocelyne Liliya INTERNATIONAL TRAVEL CONSULTANT Conditions or Problems Problem Name Problem Code Onset Date Status Entry Date Provider Comment Standard Description Annotate G E R D 530.81 Active Jocelyne Naff INTERNATIONAL TRAVEL CONSULTANT Esophageal reflux FH COLON CANCER V16.0 Active Jocelyne Naff INTERNATIONAL TRAVEL CONSULTANT Family history of malignant neoplasm of gastrointestinal [...] RMA Malignant neoplasm of breast (female), unspecified Breast microcalcification ICD-793.81 Inactive Jennifer Chun MD PhD Abnormal Mammogram ICD-793.80 Inactive Jennifer Chun MD PhD Medication List Medication Instructions Start Date Stop Date Generic Name NDC Status Provider Patient Instruction ANASTROZOLE 1 MG ORAL TABS Take one by mouth daily ANASTROZOLE 16891890679 Active Jennifer Chun MD PhD Active ZITHROMAX 250 MG TAB 2 po today, then 1 po q days 2-5 AZITHROMYCIN 98431058721 No Longer Active Rikki Harms PA Active MECLIZINE HCL 25 MG TABS 1 prn MECLIZINE HCL 33865230382 No Longer Active Solomon Alamo MD Active CHERATUSSIN AC SYRP prn as directed GUAIFENESIN- CODEINE SYRP 98739082728 No Longer Active Rikki Harms PA Active MULTIVITAMINS TABS 1qd MULTIPLE VITAMIN 00753270804 No Longer Active Rikki Harms PA Active CLARITIN 10 MG TABS 1prn LORATADINE 72583844312 Active Jocelyne Naff INTERNATIONAL TRAVEL CONSULTANT Active ASPIRIN 81 MG TABS 1qd ASPIRIN 17449328667 Active Jocelyne Naff INTERNATIONAL TRAVEL CONSULTANT Active OMEPRAZOLE 20 MG CPDR 1 PO Q D OMEPRAZOLE 44589415533 Active Rikki Harms PA Active ZITHROMAX Z-CAROLYN 250 MG TABS 2x1day,0m1exlg AZITHROMYCIN 15979178865 No Longer Active Jocelyne Naff INTERNATIONAL TRAVEL CONSULTANT Active MULTIVITAMINS TABS 1qd MULTIVITAMINS TABS MULTIPLE VITAMIN Inactive CHERATUSSIN AC SYRP prn as directed CHERATUSSIN AC SYRP GUAIFENESIN-CODEINE SYRP Inactive MECLIZINE HCL 25 MG TABS 1 prn MECLIZINE HCL 25 MG TABS 685940 MECLIZINE HCL Inactive ZITHROMAX Z-CAROLYN 250 MG TABS 2x1day,5f4jyno ZITHROMAX Z-CAROLYN 250 MG TABS 7875280 AZITHROMYCIN Inactive ZITHROMAX 250 MG TAB 2 po today, then 1 po q days 2-5 ZITHROMAX 250 MG TAB 2311168 AZITHROMYCIN Inactive Vital Signs Date Name Value [...] % 11.6-14.8 platelet count 131 10^3/MM^3 10*3/mm3 730-374 0943/12/12 leukocyte count, blood 28.6 10^3/MM^3 10*3/mm3 4.6-10.2 [...] % 11.6-14.8 platelet count 237 10^3/MM^3 10*3/mm3 588-618 1899/12/23 leukocyte count, blood 6.9 10^3/MM^3 10*3/mm3 4.6-10.2 [...] % 11.6-14.8 platelet count 360 10^3/MM^3 10*3/mm3 328-707 0502/12/31 leukocyte count, blood 5.3 10^3/MM^3 10*3/mm3 4.6-10.2 [...] % 11.6-14.8 platelet count 222 10^3/MM^3 10*3/mm3 193-347 9922/01/07 leukocyte count, blood 11.7 10^3/MM^3 10*3/mm3 4.6-10.2 [...] % 11.6-14.8 platelet count 191 10^3/MM^3 10*3/mm3 652-517 0248/01/20 leukocyte count, blood 9.8 10^3/MM^3 10*3/mm3 4.6-10.2 [...] % 11.6-14.8 platelet count 195 10^3/MM^3 10*3/mm3 073-548 6431/01/28 leukocyte count, blood 11.9 10^3/MM^3 10*3/mm3 4.6-10.2 [...] % 11.6-14.8 platelet count 278 10^3/MM^3 10*3/mm3 552-116 8233/02/04 leukocyte count, blood 8.5 10^3/MM^3 10*3/mm3 4.6-10.2 [...] % 11.6-14.8 platelet count 326 10^3/MM^3 10*3/mm3 069-874 9036/02/10 leukocyte count, blood 2.3 10^3/MM^3 10*3/mm3 4.6-10.2 [...] % 11.6-14.8 platelet count 240 10^3/MM^3 10*3/mm3 247-530 5979/02/17 leukocyte count, blood 3.4 10^3/MM^3 10*3/mm3 4.6-10.2 [...] % 11.6-14.8 platelet count 308 10^3/MM^3 10*3/mm3 079-305 2119/02/25 leukocyte count, blood 6.6 10^3/MM^3 10*3/mm3 4.6-10.2 [...] Panel - Chemistry sodium, serum 144 mmol/L 278-080 8868/12/16 potassium, serum 4.5 mmol/L 3.5-5.2 chloride, serum 107 mmol/L 98-107 carbon dioxide, venous blood 31.4 mmol/L 21.0-32.0 blood glucose 104 mg/dL 65-110 urea nitrogen, blood 17 mg/dL 7-18 creatinine, serum 1.10 mg/dL 0.60-1.30 alanine aminotransferase (SGPT), serum 25 U/L -78 aspartate aminotransferase (SGOT), serum 24 U/L 15-37 calcium, serum 8.4 mg/dL 8.5-10.1 bilirubin, serum, total 0.20 mg/dL 0.00-1.00 sodium, serum 141 mmol/L 405-352 9082/01/14 potassium, serum 4.9 mmol/L 3.5-5.2 chloride, serum [...] % 11.6-14.8 platelet count 376 10^3/MM^3 10*3/mm3 610-222 1882/12/16 leukocyte count, blood 19.5 10^3/MM^3 10*3/mm3 4.6-10.2 [...] Panel - Chemistry sodium, serum 140 mmol/L 013-043 7147/07/13 potassium, serum 4.5 mmol/L 3.5-5.2 chloride, serum 106 mmol/L 98-107 carbon dioxide, venous blood 27.7 mmol/L 21.0-32.0 blood glucose 105 mg/dL 65-110 urea nitrogen, blood 14 mg/dL 7-18 creatinine, serum 0.90 mg/dL 0.60-1.30 alanine aminotransferase (SGPT), serum 29 U/L 12-78 aspartate aminotransferase (SGOT), serum 22 U/L 15-37 calcium, serum 9.4 mg/dL 8.5-10.1 bilirubin, serum, total 0.70 mg/dL 0.00-1.00 cholesterol, serum 160 mg/dL 212-392 4295/07/13 triglyceride, serum, fasting 63 mg/dL 30-200 HDL [...] Panel - Chemistry sodium, serum 141 mmol/L 789-495 7541/02/10 potassium, serum 5.2 mmol/L 3.5-5.2 chloride, serum [...] 0.00-1.00 Encounters Code Encounter Date Provider Facility CPT-50947 Level 3 Est. Patient 13:25:16 CDT Jennifer Chun MD PhD [facility] CPT-66044 Level 3 Est. Patient 17:31:22 CDT Solomon Alamo MD [facility] CPT-85960 Level 3 Est. Patient 08:02:14 CDT Solomon Alamo MD [facility] CPT-31976 Level 3 Est. Patient 17:23:53 CDT Rikki GRANADOS [facility] CPT-90922 Level 3 Est. Patient 11:22:41 CDT Darryn GRANADOS [facility] Procedures Code Procedure Name Date Entry Date Standard Description CPT-80085 Venipuncture Draw Fee 08:16:46 BAR SUPERVISOR CPT-43320 Venipuncture Draw Fee 08:18:55 BAR SUPERVISOR CPT-76186 Venipuncture Draw Fee 08:31:18 BAR SUPERVISOR CPT-22555 Venipuncture Draw Fee 11:42:52 BAR SUPERVISOR CPT-39417 Venipuncture Draw Fee 13:26:37 BAR SUPERVISOR CPT-87604 Venipuncture Draw Fee 09:23:38 BAR SUPERVISOR CPT-000 Give Appropriate Tetanus Booster 10:23:50 CDT CPT-39320 Bone Density 08:28:45 CDT CPT-87347 Bone Density 11:35:15 CDT CPT-PV Prev. Care Visit 12:19:00 CDT CPT-56350 Venipuncture Draw Fee 15:02:58 CDT
--- OUTSIDE RECORDS SUMMARY | 2018-01-19 06:59 | XMS REPORT | Clinical Summary ---
Author Author Admin, E Organization [facility] Address Unknown Phone Unavailable Allergies, Adverse Reactions, Alerts Allergy Name Reaction Description Start Date Severity Status Provider SULFA facial swelling Critical Active Jocelyne Naff HISTOTECHNOLOGIST Conditions or Problems Problem Name Problem Code Onset Date Status Entry Date Provider Comment Standard Description Annotate G E R D 530.81 Active Jocelyne Naff HISTOTECHNOLOGIST Esophageal reflux FH COLON CANCER V16.0 Active Jocelyne Naff HISTOTECHNOLOGIST Family history of malignant neoplasm of gastrointestinal [...] Harms PA Cough Ingrown toenail, left 703.0 Active Rikki Harms PA Ingrowing nail Breast microcalcification ICD-793.81 Inactive Jennifer [...] Cough, chronic ICD-786.2 Inactive Rikki Harms PA Medication List Medication Instructions Start Date Stop Date Generic Name NDC Status Provider Patient Instruction BIOTIN 1000 MCG ORAL TABS Take one daily BIOTIN 32152284952 Active Rikki Harms PA Active VITAMIN C 500 MG ORAL CAPS Take one daily ASCORBIC ACID 13017732081 Active Rikki Harms PA Active BENZONATATE 200 MG ORAL CAPS One capsule tid. BENZONATATE 55484027089 No Longer Active Rikki Harms PA Active FLONASE ALLERGY RELIEF 50 MCG/ACT NASAL SUSP spray twice in each nostril one time daily FLUTICASONE PROPIONATE 55802814455 No Longer Active Rikki Harms PA Active TUSSIONEX PENNKINETIC ER 10-8 MG/5ML LQCR 5ml po q12hr PRN Cough HYDROCOD POLST-CHLORPHEN POLST 51516853048 No Longer Active Rikki Harms PA Active NIACIN ER 500 MG ORAL CR-TABS Take one twice daily NIACIN 16562143705 Active Rikki Harms PA Active ALBUTEROL SULFATE 0.083 % JOSEE SOLBarbra one vial per nebulizer every 4-6 hours as needed ALBUTEROL SULFATE 94317626770 No Longer Active Rikki Harms PA Active CEPHALEXIN 500 MG ORAL CAPS Take one four times a day CEPHALEXIN 20945942641 Active Rikki Harms PA Active MEDROL (CAROLYN) 4 MG TABS 6 tabs on day 1, 5 tabs on day 2, 4 tabs on day 3, 3 tabs on day 4, 2 tabs on day 5, 1 tab on day 6 METHYLPREDNISOLONE 70304555185 No Longer Active Rikki Harms PA Active LEVAQUIN 750 MG TABS 1 po qd x 7 days LEVOFLOXACIN 84292629981 No Longer Active Rikki Harms PA Active LEVAQUIN 500 MG ORAL TABS Take one tablet daily LEVOFLOXACIN 37112864196 No Longer Active Rikki Harms PA Active PROAIR HFA 108 (90 BASE) MCG/ACT AERS 2 puffs four times a day as needed 2014 ALBUTEROL SULFATE 88323153317 Active Marta Yokum TRAVEL SALES CONSULTANT Active LEVAQUIN 500 MG TAB 1 tablet by mouth daily LEVOFLOXACIN 00471144331 No Longer Active Marta Yokum TRAVEL SALES CONSULTANT Active CHERATUSSIN AC 100-10 MG/5ML SYRP 1 tsp by mouth every 4 hours as needed for cough GUAIFENESIN-CODEINE 52819065393 No Longer Active Rikki Harms PA Active MUPIROCIN 2 % EXT OINT Use in each nostril in am and pm MUPIROCIN 63138308406 No Longer Active Rikki Harms PA Active DOXYCYCLINE HYCLATE 100 MG ORAL CAPS Take one bid DOXYCYCLINE HYCLATE 97452526097 No Longer Active Rikki Harms PA Active CLARITIN 10 MG TABS 1prn LORATADINE 71094299095 No Longer Active Jocelyne Naff HISTOTECHNOLOGIST Active ASPIRIN 81 MG TABS 1qd ASPIRIN 03041571053 No Longer Active Jocelyne Naff HISTOTECHNOLOGIST Active DOXYCYCLINE HYCLATE 100 MG CAP 1 cap by mouth twice daily DOXYCYCLINE HYCLATE 57074054612 No Longer Active Rikki Harms PA Active VITAMIN D3 13658 UNIT CAPS 1 pill by mouth weekly, for vitamin D deficiency CHOLECALCIFEROL 21822033541 No Longer Active Jennifer Chun MD PhD Active ANASTROZOLE 1 MG ORAL TABS Take one by mouth daily ANASTROZOLE 99551805063 Active Jennifer Chun MD PhD Active ZITHROMAX 250 MG TAB 2 po today, then 1 po q days 2-5 AZITHROMYCIN 30054466220 No Longer Active Rikki Harms PA Active MECLIZINE HCL 25 MG TABS 1 prn MECLIZINE HCL 93394332881 No Longer Active Solomon Alamo MD Active CHERATUSSIN AC SYRP prn as directed GUAIFENESIN- CODEINE SYRP 25685113305 No Longer Active Rikki Harms PA Active MULTIVITAMINS TABS 1qd MULTIPLE VITAMIN 95565869195 No Longer Active Rikki Harms PA Active OMEPRAZOLE 20 MG CPDR 1 PO Q D OMEPRAZOLE 86930587502 Active Rikki Harms PA Active ZITHROMAX Z-CAROLYN 250 MG TABS 2x1day,9u3zeym AZITHROMYCIN 14939886084 No Longer Active Jocelyne Lovell HISTOTECHNOLOGIST Active MULTIVITAMINS TABS 1qd MULTIVITAMINS TABS MULTIPLE VITAMIN Inactive CHERATUSSIN AC SYRP prn as directed CHERATUSSIN AC SYRP GUAIFENESIN-CODEINE SYRP Inactive MECLIZINE HCL 25 MG TABS 1 prn MECLIZINE HCL 25 MG TABS 091800 MECLIZINE HCL Inactive ASPIRIN 81 MG TABS 1qd ASPIRIN 81 MG TABS 841828 ASPIRIN Inactive CLARITIN 10 MG TABS 1prn CLARITIN 10 MG TABS 439350 LORATADINE Inactive DOXYCYCLINE HYCLATE 100 MG ORAL CAPS Take one bid DOXYCYCLINE HYCLATE 100 MG ORAL CAPS 3822070 DOXYCYCLINE HYCLATE Inactive MUPIROCIN 2 % EXT OINT Use in each nostril in am and pm MUPIROCIN 2 % EXT OINT 296505 MUPIROCIN Inactive CHERATUSSIN AC 100-10 MG/5ML SYRP 1 tsp by mouth every 4 hours as needed for cough CHERATUSSIN AC 100-10 MG/5ML SYRP 702890 GUAIFENESIN-CODEINE Inactive LEVAQUIN 500 MG TAB 1 tablet by mouth daily LEVAQUIN 500 MG TAB 933953 LEVOFLOXACIN Inactive LEVAQUIN 500 MG ORAL TABS Take one tablet daily LEVAQUIN 500 MG ORAL TABS 615933 LEVOFLOXACIN Inactive LEVAQUIN 750 MG TABS 1 po qd x 7 days LEVAQUIN 750 MG TABS 256507 LEVOFLOXACIN Inactive ALBUTEROL SULFATE 0.083 % NEBU SOLN one vial per nebulizer every 4-6 hours as needed ALBUTEROL SULFATE 0.083 % NEBU SOLN 236837 ALBUTEROL SULFATE Inactive TUSSIONEX PENNKINETIC ER 10-8 MG/5ML LQCR 5ml po q12hr PRN Cough TUSSIONEX PENNKINETIC ER 10-8 MG/5ML LQCR HYDROCOD POLST- CHLORPHEN POLST Inactive FLONASE ALLERGY RELIEF 50 MCG/ACT NASAL SUSP spray twice in each nostril one time daily FLONASE ALLERGY RELIEF 50 MCG/ACT NASAL SUSP 437197 FLUTICASONE PROPIONATE Inactive BENZONATATE 200 MG ORAL CAPS One capsule tid. BENZONATATE 200 MG ORAL CAPS 174010 BENZONATATE Inactive ZITHROMAX Z-CAROLYN 250 MG TABS 2x1day,8w0mefn ZITHROMAX Z-CAROLYN 250 MG TABS 6695912 AZITHROMYCIN Inactive ZITHROMAX 250 MG TAB 2 po today, then 1 po q days 2-5 ZITHROMAX 250 MG TAB 8165864 AZITHROMYCIN Inactive VITAMIN D3 16420 UNIT CAPS 1 pill by mouth weekly, for vitamin D deficiency VITAMIN D3 05301 UNIT CAPS CHOLECALCIFEROL Inactive DOXYCYCLINE HYCLATE 100 MG CAP 1 cap by mouth twice daily DOXYCYCLINE HYCLATE 100 MG CAP 9843486 DOXYCYCLINE HYCLATE Inactive MEDROL (CAROLYN) 4 MG TABS 6 tabs on day 1, 5 tabs on day 2, 4 tabs on day 3, 3 tabs on day 4, 2 tabs on day 5, 1 tab on day 6 MEDROL ( CAROLYN) 4 MG TABS 096707 METHYLPREDNISOLONE Inactive Vital Signs Date Name Value [...] % 11.6-14.8 platelet count 143 10^3/MM^3 10*3/mm3 706-183 8700/11/25 leukocyte count, blood 2.1 10^3/MM^3 10*3/mm3 4.6-10.2 [...] % 11.6-14.8 platelet count 139 10^3/MM^3 10*3/mm3 198-899 3742/12/02 leukocyte count, blood 6.7 10^3/MM^3 10*3/mm3 4.6-10.2 [...] % 11.6-14.8 platelet count 258 10^3/MM^3 10*3/mm3 729-358 3278/12/09 leukocyte count, blood 5.3 10^3/MM^3 10*3/mm3 4.6-10.2 [...] % 11.6-14.8 platelet count 240 10^3/MM^3 10*3/mm3 614-444 9297/12/16 leukocyte count, blood 3.2 10^3/MM^3 10*3/mm3 4.6-10.2 [...] % 11.6-14.8 platelet count 158 10^3/MM^3 10*3/mm3 087-147 4598/12/18 leukocyte count, blood 8.8 10^3/MM^3 10*3/mm3 4.6-10.2 [...] % 11.6-14.8 platelet count 207 10^3/MM^3 10*3/mm3 725-131 5361/12/23 leukocyte count, blood 6.2 10^3/MM^3 10*3/mm3 4.6-10.2 [...] % 11.6-14.8 platelet count 183 10^3/MM^3 10*3/mm3 671-899 3844/11/11 leukocyte count, blood 2.0 10^3/MM^3 10*3/mm3 4.6-10.2 [...] % 11.6-14.8 platelet count 203 10^3/MM^3 10*3/mm3 385-137 6512/12/30 leukocyte count, blood 5.2 10^3/MM^3 10*3/mm3 4.6-10.2 [...] % 11.6-14.8 platelet count 200 10^3/MM^3 10*3/mm3 572-422 3738/03/02 leukocyte count, blood 5.1 10^3/MM^3 10*3/mm3 4.6-10.2 [...] Panel - Chemistry sodium, serum 142 mmol/L 759-554 2711/02/04 carbon dioxide, venous blood 24.9 mmol/L 21.0-32.0 potassium, serum 4.1 mmol/L 3.5-5.2 chloride, serum 106 mmol/L 98-107 blood glucose 103 mg/dL 65-110 urea nitrogen, blood 25 mg/dL 7-18 creatinine, serum 0.83 mg/dL 0.55-1.30 alanine aminotransferase (SGPT), serum 38 U/L 12-78 aspartate aminotransferase (SGOT), serum 26 U/L 15-37 calcium, serum 8.7 mg/dL 8.5-10.1 bilirubin, serum, total 0.30 mg/dL 0.00-1.00 sodium, serum 140 mmol/L 492-569 2159/01/13 carbon dioxide, venous blood 26.4 mmol/L 21.0-32.0 potassium, serum 4.2 mmol/L 3.5-5.2 chloride, serum 104 mmol/L 98-107 blood glucose 101 mg/dL 65-110 urea nitrogen, blood 18 mg/dL 7-18 creatinine, serum 0.80 mg/dL 0.55-1.30 alanine aminotransferase (SGPT), serum 28 U/L -78 aspartate aminotransferase (SGOT), serum 24 U/L 15-37 calcium, serum 8.7 mg/dL 8.5-10.1 bilirubin, serum, total 0.50 mg/dL 0.00-1.00 sodium, serum 138 mmol/L 775-772 7518/11/04 carbon dioxide, venous blood 27.7 mmol/L 21.0-32.0 potassium, serum 4.9 mmol/L 3.5-5.2 chloride, serum 104 mmol/L 98-107 blood glucose 92 mg/dL 65-110 urea nitrogen, blood 24 mg/dL 7-18 creatinine, serum 0.95 mg/dL 0.55-1.30 alanine aminotransferase (SGPT), serum 34 U/L -78 aspartate aminotransferase (SGOT), serum 23 U/L 15-37 calcium, serum 8.9 mg/dL 8.5-10.1 bilirubin, serum, total 0.70 mg/dL 0.00-1.00 sodium, serum 140 mmol/L 488-642 4343/01/06 carbon dioxide, venous blood 27.2 mmol/L 21.0-32.0 [...] % 11.6-14.8 platelet count 289 10^3/MM^3 10*3/mm3 536-206 0947/01/06 leukocyte count, blood 4.1 10^3/MM^3 10*3/mm3 4.6-10.2 [...] % 11.6-14.8 platelet count 297 10^3/MM^3 10*3/mm3 920-078 9786/02/04 leukocyte count, blood 4.2 10^3/MM^3 10*3/mm3 4.6-10.2 [...] % 11.6-14.8 platelet count 271 10^3/MM^3 10*3/mm3 700-920 7044/11/04 leukocyte count, blood 3.8 10^3/MM^3 10*3/mm3 4.6-10.2 [...] Panel - Chemistry sodium, serum 140 mmol/L 104-350 2898/07/13 potassium, serum 4.5 mmol/L 3.5-5.2 chloride, serum 106 mmol/L 98-107 carbon dioxide, venous blood 27.7 mmol/L 21.0-32.0 blood glucose 105 mg/dL 65-110 urea nitrogen, blood 14 mg/dL 7-18 creatinine, serum 0.90 mg/dL 0.60-1.30 alanine aminotransferase (SGPT), serum 29 U/L 12-78 aspartate aminotransferase (SGOT), serum 22 U/L 15-37 calcium, serum 9.4 mg/dL 8.5-10.1 bilirubin, serum, total 0.70 mg/dL 0.00-1.00 cholesterol, serum 160 mg/dL 968-165 6610/07/13 triglyceride, serum, fasting 63 mg/dL 30-200 HDL [...] Panel - Chemistry sodium, serum 141 mmol/L 003-188 5570/11/18 carbon dioxide, venous blood 26.2 mmol/L 21.0-32.0 potassium, serum 4.4 mmol/L 3.5-5.2 chloride, serum 106 mmol/L 98-107 blood glucose 102 mg/dL 65-110 urea nitrogen, blood 24 mg/dL 7-18 creatinine, serum 0.77 mg/dL 0.55-1.30 alanine aminotransferase (SGPT), serum 30 U/L 12-78 aspartate aminotransferase (SGOT), serum 15 U/L 15-37 calcium, serum 8.3 mg/dL 8.5-10.1 bilirubin, serum, total 0.30 mg/dL 0.00-1.00 sodium, serum 139 mmol/L 601-737 5086/11/25 carbon dioxide, venous blood 27.9 mmol/L 21.0-32.0 potassium, serum 4.7 mmol/L 3.5-5.2 chloride, serum 105 mmol/L 98-107 blood glucose 94 mg/dL 65-110 urea nitrogen, blood 21 mg/dL 7-18 creatinine, serum 0.79 mg/dL 0.55-1.30 alanine aminotransferase (SGPT), serum 40 U/L aspartate aminotransferase (SGOT), serum 22 U/L - calcium, serum 8.5 mg/dL 8.5-10.1 bilirubin, serum, total 0.80 mg/dL 0.00-1.00 sodium, serum 142 mmol/L 098-624 2342/12/09 carbon dioxide, venous blood 28.5 mmol/L 21.0-32.0 potassium, serum 5.0 mmol/L 3.5-5.2 chloride, serum 109 mmol/L 98-107 blood glucose 91 mg/dL 65-110 urea nitrogen, blood 27 mg/dL 7- creatinine, serum 0.88 mg/dL 0.55-1.30 alanine aminotransferase (SGPT), serum 31 U/L aspartate aminotransferase (SGOT), serum 18 U/L - calcium, serum 8.9 mg/dL 8.5-10.1 bilirubin, serum, total 0.40 mg/dL 0.00-1.00 sodium, serum 140 mmol/L 828-894 3358/12/16 carbon dioxide, venous blood 25.4 mmol/L 21.0-32.0 potassium, serum 4.1 mmol/L 3.5-5.2 chloride, serum 104 mmol/L 98-107 blood glucose 110 mg/dL 65-110 urea nitrogen, blood 24 mg/dL 7-18 creatinine, serum 0.87 mg/dL 0.55-1.30 alanine aminotransferase (SGPT), serum 35 U/L -78 aspartate aminotransferase (SGOT), serum 21 U/L 15-37 calcium, serum 8.4 mg/dL 8.5-10.1 bilirubin, serum, total 0.50 mg/dL 0.00-1.00 sodium, serum 141 mmol/L 601-000 1926/12/02 carbon dioxide, venous blood 25.9 mmol/L 21.0-32.0 potassium, serum 4.7 mmol/L 3.5-5.2 chloride, serum 106 mmol/L 98-107 blood glucose 78 mg/dL 65-110 urea nitrogen, blood 24 mg/dL 7-18 creatinine, serum 0.75 mg/dL 0.55-1.30 alanine aminotransferase (SGPT), serum 31 U/L 78 aspartate aminotransferase (SGOT), serum 20 U/L 15-37 calcium, serum 8.7 mg/dL 8.5-10.1 bilirubin, serum, total 0.30 mg/dL 0.00-1.00 sodium, serum 139 mmol/L 592-435 5170/12/30 carbon dioxide, venous blood 28.2 mmol/L 21.0-32.0 potassium, serum 3.9 mmol/L 3.5-5.2 chloride, serum 105 mmol/L 98-107 blood glucose 91 mg/dL 65-110 urea nitrogen, blood 17 mg/dL 7-18 creatinine, serum 0.81 mg/dL 0.55-1.30 alanine aminotransferase (SGPT), serum 29 U/L aspartate aminotransferase (SGOT), serum 22 U/L 15-37 calcium, serum 8.8 mg/dL 8.5-10.1 bilirubin, serum, total 0.50 mg/dL 0.00-1.00 sodium, serum 141 mmol/L 294-740 4261/11/11 carbon dioxide, venous blood 26.8 mmol/L 21.0-32.0 potassium, serum 4.2 mmol/L 3.5-5.2 chloride, serum 106 mmol/L 98-107 blood glucose 95 mg/dL 65-110 urea nitrogen, blood 18 mg/dL 7-18 creatinine, serum 0.70 mg/dL 0.55-1.30 alanine aminotransferase (SGPT), serum 33 U/L aspartate aminotransferase (SGOT), serum 22 U/L - calcium, serum 8.5 mg/dL 8.5-10.1 bilirubin, serum, total 0.30 mg/dL 0.00-1.00 sodium, serum 143 mmol/L 817-682 0070/12/23 carbon dioxide, venous blood 24.6 mmol/L 21.0-32.0 potassium, serum 4.1 mmol/L 3.5-5.2 chloride, serum 107 mmol/L 98-107 blood glucose 98 mg/dL 65-110 urea nitrogen, blood 22 mg/dL 7-18 creatinine, serum 0.77 mg/dL 0.55-1.30 alanine aminotransferase (SGPT), serum 28 U/L aspartate aminotransferase (SGOT), serum 20 U/L 15- calcium, serum 8.6 mg/dL 8.5-10.1 bilirubin, serum, total 0.30 mg/dL 0.00-1.00 Lab Report: VITAMIN D, 25-HYDROXY/27895 - Chemistry vitamin D 25-hydroxy, serum 24 ng/mL 30-100 Encounters Code Encounter Date Provider Facility CPT-11162 Level 3 Est. Patient 05:11:40 CDT Rikki GRANADOS [facility] CPT-02395 Level 2 Est. Patient 14:30:43 WHITE KID BUFFER Marta Viramontes [facility] CPT-71835 Level 4 Est. Patient 09:14:36 WHITE KID BUFFER Rikki GRANADOS [facility] CPT-65168 Level 2 Est. Patient 09:07:32 CDT Marta Viramontes [facility] CPT-72172 Level 4 Est. Patient 11:55:00 CDT Rikki Stearns [facility] CPT-48948 Level 3 Est. Patient 13:25:16 CDT Jennifer Chun MD PhD [facility] CPT-96294 Level 3 Est. Patient 17:31:22 CDT Solomon Alamo MD [facility] CPT-33296 Level 3 Est. Patient 08:02:14 CDT Solomon Alamo MD [facility] CPT-48811 Level 3 Est. Patient 17:23:53 CDT Rikki Stearns [facility] CPT-61145 Level 3 Est. Patient 11:22:41 CDT Darryn Hearn [facility] Procedures Code Procedure Name Date Entry Date Standard Description CPT-41406 Chest 2V Frontal and Lat 10:57:00 WHITE KID BUFFER CPT-50182 Venipuncture Draw Fee 10:56:59 WHITE KID BUFFER CPT-35751 Venipuncture Draw Fee 09:22:28 WHITE KID BUFFER CPT-76018 Chest 2V Frontal and Lat 09:22:27 WHITE KID BUFFER CPT-I/D I/D Abscess 09:43:13 CDT CPT-25735 Venipuncture Draw Fee 08:16:46 WHITE KID BUFFER CPT-03849 Venipuncture Draw Fee 08:18:55 WHITE KID BUFFER CPT-61193 Venipuncture Draw Fee 08:31:18 WHITE KID BUFFER CPT-91293 Venipuncture Draw Fee 11:42:52 WHITE KID BUFFER CPT-13427 Venipuncture Draw Fee 13:26:37 WHITE KID BUFFER CPT-01538 Venipuncture Draw Fee 09:23:38 WHITE KID BUFFER CPT-000 Give Appropriate Tetanus Booster 10:23:50 CDT CPT-64977 Bone Density 08:28:45 CDT CPT-15576 Bone Density 11:35:15 CDT CPT-PV Prev. Care Visit 12:19:00 CDT CPT-93796 Venipuncture Draw Fee 15:02:58 CDT
[2018-01-19] MEDS ORDERED: FAMOTIDINE 20MG/2ML IV (PEPCID) IVP ONE (07:00)
--- OUTSIDE RECORDS SUMMARY | 2018-01-19 07:00 | XMS REPORT | Clinical Summary ---
Author Author Admin, E Organization [facility] Address Unknown Phone Unavailable Allergies, Adverse Reactions, Alerts Allergy Name Reaction Description Start Date Severity Status Provider SULFA facial swelling Critical Active Jocelyne Naff SKEIN MERCERIZING 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 Conditions or Problems Problem Name Problem Code Onset Date Status Entry Date Provider Comment Standard Description Annotate G E R D 530.81 Active Jocelyne Naff SKEIN MERCERIZING 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 Esophageal reflux FH COLON CANCER V16.0 Active Jocelyne Naff SKEIN MERCERIZING 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 Family history of malignant neoplasm of gastrointestinal tract ESOPHAGEAL STRICTURE 530.3 Active Darryn Hearn PA Stricture and stenosis of esophagus CAROTID ARTERY STENOSIS, RIGHT 433.10 Active Rikki Stearns PA Occlusion and stenosis of carotid artery, without mention of cerebral infarction HEALTH SCREENING V70.0 Active Rose Darnell SKEIN MERCERIZING 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 Routine general medical examination at a health [...] each nostril in am and pm MUPIROCIN 13778642896 Active Jocelyne Naff SKEIN MERCERIZING 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 Active CLARITIN 10 MG TABS 1prn LORATADINE 53594021009 No Longer Active Jocelyne Naff SKEIN MERCERIZING 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 Active ASPIRIN 81 MG TABS 1qd ASPIRIN 33591543906 No Longer Active Jocelyne Naff SKEIN MERCERIZING 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 Active DOXYCYCLINE HYCLATE 100 MG ORAL CAPS Take one bid DOXYCYCLINE HYCLATE 13976764763 Active Jocelyne Naff SKEIN MERCERIZING 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 Active DOXYCYCLINE HYCLATE 100 MG CAP 1 cap by mouth twice daily DOXYCYCLINE HYCLATE 26119753234 No Longer Active Rikki GRANADOS Active VITAMIN D3 18003 UNIT CAPS 1 pill by mouth weekly, for vitamin D deficiency CHOLECALCIFEROL 95493882180 Active Jennifer Chun MD PhD Active ANASTROZOLE 1 MG ORAL TABS Take one by mouth daily ANASTROZOLE 26851743112 Active Jennifer Chun MD PhD Active ZITHROMAX 250 MG TAB 2 po today, then 1 po q days 2-5 AZITHROMYCIN 02154815958 No Longer Active Rikki Harms PA Active MECLIZINE HCL 25 MG TABS 1 prn MECLIZINE HCL 84609303858 No Longer Active Solomon Alamo MD Active CHERATUSSIN AC SYRP prn as directed GUAIFENESIN- CODEINE SYRP 02925920870 No Longer Active Rikki Harms PA Active MULTIVITAMINS TABS 1qd MULTIPLE VITAMIN 09784912941 No Longer Active Rikki Harms PA Active OMEPRAZOLE 20 MG CPDR 1 PO Q D OMEPRAZOLE 84647006040 Active Rikki Harms PA Active ZITHROMAX Z-CAROLYN 250 MG TABS 2x1day,8m5pzej AZITHROMYCIN 95327160965 No Longer Active Jocelyne Lovell SKEIN MERCERIZING 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 Active MULTIVITAMINS TABS 1qd MULTIVITAMINS TABS MULTIPLE VITAMIN Inactive CHERATUSSIN AC SYRP prn as directed CHERATUSSIN AC SYRP GUAIFENESIN-CODEINE SYRP Inactive MECLIZINE HCL 25 MG TABS 1 prn MECLIZINE HCL 25 MG TABS 018850 MECLIZINE HCL Inactive ASPIRIN 81 MG TABS 1qd ASPIRIN 81 MG TABS 617337 ASPIRIN Inactive CLARITIN 10 MG TABS 1prn CLARITIN 10 MG TABS 585100 LORATADINE Inactive ZITHROMAX Z-CAROLYN 250 MG TABS 2x1day,1y7swze ZITHROMAX Z-CAROLYN 250 MG TABS 9535601 AZITHROMYCIN Inactive ZITHROMAX 250 MG TAB 2 po today, then 1 po q days 2-5 ZITHROMAX 250 MG TAB 4980521 AZITHROMYCIN Inactive DOXYCYCLINE HYCLATE 100 MG CAP 1 cap by mouth twice daily DOXYCYCLINE HYCLATE 100 MG CAP 0151033 DOXYCYCLINE HYCLATE Inactive Vital Signs Date Name [...] % 11.6-14.8 platelet count 131 10^3/MM^3 10*3/mm3 101-742 1971/12/12 leukocyte count, blood 28.6 10^3/MM^3 10*3/mm3 4.6-10.2 [...] % 11.6-14.8 platelet count 237 10^3/MM^3 10*3/mm3 242-890 3003/12/23 leukocyte count, blood 6.9 10^3/MM^3 10*3/mm3 4.6-10.2 [...] % 11.6-14.8 platelet count 360 10^3/MM^3 10*3/mm3 097-608 2485/12/31 leukocyte count, blood 5.3 10^3/MM^3 10*3/mm3 4.6-10.2 [...] % 11.6-14.8 platelet count 222 10^3/MM^3 10*3/mm3 593-215 4864/01/07 leukocyte count, blood 11.7 10^3/MM^3 10*3/mm3 4.6-10.2 [...] % 11.6-14.8 platelet count 191 10^3/MM^3 10*3/mm3 695-528 1969/01/20 leukocyte count, blood 9.8 10^3/MM^3 10*3/mm3 4.6-10.2 [...] % 11.6-14.8 platelet count 195 10^3/MM^3 10*3/mm3 687-058 6037/01/28 leukocyte count, blood 11.9 10^3/MM^3 10*3/mm3 4.6-10.2 [...] % 11.6-14.8 platelet count 278 10^3/MM^3 10*3/mm3 781-496 9706/02/04 leukocyte count, blood 8.5 10^3/MM^3 10*3/mm3 4.6-10.2 [...] % 11.6-14.8 platelet count 326 10^3/MM^3 10*3/mm3 765-342 8113/02/10 leukocyte count, blood 2.3 10^3/MM^3 10*3/mm3 4.6-10.2 [...] % 11.6-14.8 platelet count 240 10^3/MM^3 10*3/mm3 745-145 9972/02/17 leukocyte count, blood 3.4 10^3/MM^3 10*3/mm3 4.6-10.2 [...] % 11.6-14.8 platelet count 308 10^3/MM^3 10*3/mm3 281-850 9811/02/25 leukocyte count, blood 6.6 10^3/MM^3 10*3/mm3 4.6-10.2 [...] Panel - Chemistry sodium, serum 144 mmol/L 389-318 3140/12/16 potassium, serum 4.5 mmol/L 3.5-5.2 chloride, serum 107 mmol/L 98-107 carbon dioxide, venous blood 31.4 mmol/L 21.0-32.0 blood glucose 104 mg/dL 65-110 urea nitrogen, blood 17 mg/dL 7-18 creatinine, serum 1.10 mg/dL 0.60-1.30 alanine aminotransferase (SGPT), serum 25 U/L 12-78 aspartate aminotransferase (SGOT), serum 24 U/L 15-37 calcium, serum 8.4 mg/dL 8.5-10.1 bilirubin, serum, total 0.20 mg/dL 0.00-1.00 sodium, serum 141 mmol/L 246-444 2250/01/14 potassium, serum 4.9 mmol/L 3.5-5.2 chloride, serum [...] % 11.6-14.8 platelet count 376 10^3/MM^3 10*3/mm3 253-405 8712/12/16 leukocyte count, blood 19.5 10^3/MM^3 10*3/mm3 4.6-10.2 [...] Panel - Chemistry sodium, serum 140 mmol/L 018-442 5037/07/13 potassium, serum 4.5 mmol/L 3.5-5.2 chloride, serum 106 mmol/L 98-107 carbon dioxide, venous blood 27.7 mmol/L 21.0-32.0 blood glucose 105 mg/dL 65-110 urea nitrogen, blood 14 mg/dL 7-18 creatinine, serum 0.90 mg/dL 0.60-1.30 alanine aminotransferase (SGPT), serum 29 U/L 12-78 aspartate aminotransferase (SGOT), serum 22 U/L 15-37 calcium, serum 9.4 mg/dL 8.5-10.1 bilirubin, serum, total 0.70 mg/dL 0.00-1.00 cholesterol, serum 160 mg/dL 394-300 3758/07/13 triglyceride, serum, fasting 63 mg/dL 30-200 HDL [...] Panel - Chemistry sodium, serum 141 mmol/L 143-308 1572/02/10 potassium, serum 5.2 mmol/L 3.5-5.2 chloride, serum 106 mmol/L 98-107 carbon dioxide, venous blood 27.8 mmol/L 21.0-32.0 blood glucose 111 mg/dL 65-110 urea nitrogen, blood 18 mg/dL 7-18 creatinine, serum 0.90 mg/dL 0.60-1.30 alanine aminotransferase (SGPT), serum 29 U/L 12-78 aspartate aminotransferase (SGOT), serum 21 U/L 15-37 calcium, serum 8.3 mg/dL 8.5-10.1 bilirubin, serum, total 0.40 mg/dL 0.00-1.00 Lab Report: VITAMIN D, 25-HYDROXY/12811 - Chemistry vitamin D 25-hydroxy, serum 24 ng/mL 30-100 Encounters Code Encounter Date Provider Facility CPT-78107 Level 2 Est. Patient 09:07:32 CDT Marta Ana M JETER [facility] CPT-42986 Level 4 Est. Patient 11:55:00 CDT Rikki GRANADOS [facility] CPT-66779 Level 3 Est. Patient 13:25:16 CDT Jennifer Chun MD PhD [facility] CPT-35916 Level 3 Est. Patient 17:31:22 CDT Solomon Alamo MD [facility] CPT-21401 Level 3 Est. Patient 08:02:14 CDT Solomon Alamo MD [facility] CPT-01427 Level 3 Est. Patient 17:23:53 CDT Rikki GRANADOS [facility] CPT-18540 Level 3 Est. Patient 11:22:41 CDT Darryn Hearn [facility] Procedures Code Procedure Name Date Entry Date Standard Description CPT-I/D I/D Abscess 09:43:13 CDT CPT-34538 Venipuncture Draw Fee 08:16:46 MANAGER BUSINESS CONTINUITY CPT-52261 Venipuncture Draw Fee 08:18:55 MANAGER BUSINESS CONTINUITY CPT-71831 Venipuncture Draw Fee 08:31:18 MANAGER BUSINESS CONTINUITY CPT-56401 Venipuncture Draw Fee 11:42:52 MANAGER BUSINESS CONTINUITY CPT-89636 Venipuncture Draw Fee 13:26:37 MANAGER BUSINESS CONTINUITY CPT-11422 Venipuncture Draw Fee 09:23:38 MANAGER BUSINESS CONTINUITY CPT-000 Give Appropriate Tetanus Booster 10:23:50 CDT CPT-87431 Bone Density 08:28:45 CDT CPT-05144 Bone Density 11:35:15 CDT CPT-PV Prev. Care Visit 12:19:00 CDT CPT-31678 Venipuncture Draw Fee 15:02:58 CDT
--- OUTSIDE RECORDS SUMMARY | 2018-01-19 07:00 | XMS REPORT | Clinical Summary ---
Author Author Admin, E Organization [facility] Address Unknown Phone Unavailable Allergies, Adverse Reactions, Alerts Allergy Name Reaction Description Start Date Severity Status Provider SULFA facial swelling Critical Active Jocelyne Naff JUNIOR COPYWRITER Conditions or Problems Problem Name Problem Code Onset Date Status Entry Date Provider Comment Standard Description Annotate G E R D 530.81 Active Jocelyne Naff JUNIOR COPYWRITER Esophageal reflux FH COLON CANCER V16.0 Active Jocelyne Naff JUNIOR COPYWRITER Family history of malignant neoplasm of gastrointestinal [...] cap by mouth twice daily DOXYCYCLINE HYCLATE 58623474334 Active Rikki GRANADOS Active VITAMIN D3 25641 UNIT CAPS 1 pill by mouth weekly, for vitamin D deficiency CHOLECALCIFEROL 33978201659 Active Jennifer Chun MD PhD Active ANASTROZOLE 1 MG ORAL TABS Take one by mouth daily ANASTROZOLE 52366078312 Active Jennifer Chun MD PhD Active ZITHROMAX 250 MG TAB 2 po today, then 1 po q days 2-5 AZITHROMYCIN 47466330880 No Longer Active Rikki Daryn GRANADOS Active MECLIZINE HCL 25 MG TABS 1 prn MECLIZINE HCL 13439643670 No Longer Active Solomon Alamo MD Active CHERATUSSIN AC SYRP prn as directed GUAIFENESIN- CODEINE SYRP 21297876949 No Longer Active Rikki Daryn PA Active MULTIVITAMINS TABS 1qd MULTIPLE VITAMIN 93593693896 No Longer Active Rikki Daryn PA Active CLARITIN 10 MG TABS 1prn LORATADINE 54889328548 Active Jocelyne Naff JUNIOR COPYWRITER Active ASPIRIN 81 MG TABS 1qd ASPIRIN 18095955651 Active Jocelyne Naff JUNIOR COPYWRITER Active OMEPRAZOLE 20 MG CPDR 1 PO Q D OMEPRAZOLE 60894777738 Active Rikki Daryn PA Active ZITHROMAX Z-CAROLYN 250 MG TABS 2x1day,3a7nzoo AZITHROMYCIN 64166252925 No Longer Active Jocelyne Lovell JUNIOR COPYWRITER Active MULTIVITAMINS TABS 1qd MULTIVITAMINS TABS MULTIPLE VITAMIN Inactive CHERATUSSIN AC SYRP prn as directed CHERATUSSIN AC SYRP GUAIFENESIN-CODEINE SYRP Inactive MECLIZINE HCL 25 MG TABS 1 prn MECLIZINE HCL 25 MG TABS 710114 MECLIZINE HCL Inactive ZITHROMAX Z-CAROLYN 250 MG TABS 2x1day,8t8xvzj ZITHROMAX Z-CAROLYN 250 MG TABS 2435792 AZITHROMYCIN Inactive ZITHROMAX 250 MG TAB 2 po today, then 1 po q days 2-5 ZITHROMAX 250 MG TAB 3307948 AZITHROMYCIN Inactive Vital Signs Date Name Value [...] % 11.6-14.8 platelet count 131 10^3/MM^3 10*3/mm3 975-961 4728/12/12 leukocyte count, blood 28.6 10^3/MM^3 10*3/mm3 4.6-10.2 [...] % 11.6-14.8 platelet count 237 10^3/MM^3 10*3/mm3 412-042 2459/12/23 leukocyte count, blood 6.9 10^3/MM^3 10*3/mm3 4.6-10.2 [...] % 11.6-14.8 platelet count 360 10^3/MM^3 10*3/mm3 999-137 5892/12/31 leukocyte count, blood 5.3 10^3/MM^3 10*3/mm3 4.6-10.2 [...] % 11.6-14.8 platelet count 222 10^3/MM^3 10*3/mm3 755-250 8995/01/07 leukocyte count, blood 11.7 10^3/MM^3 10*3/mm3 4.6-10.2 [...] % 11.6-14.8 platelet count 191 10^3/MM^3 10*3/mm3 258-726 5330/01/20 leukocyte count, blood 9.8 10^3/MM^3 10*3/mm3 4.6-10.2 [...] % 11.6-14.8 platelet count 195 10^3/MM^3 10*3/mm3 590-547 2182/01/28 leukocyte count, blood 11.9 10^3/MM^3 10*3/mm3 4.6-10.2 [...] % 11.6-14.8 platelet count 278 10^3/MM^3 10*3/mm3 337-753 9459/02/04 leukocyte count, blood 8.5 10^3/MM^3 10*3/mm3 4.6-10.2 [...] % 11.6-14.8 platelet count 326 10^3/MM^3 10*3/mm3 469-998 9880/02/10 leukocyte count, blood 2.3 10^3/MM^3 10*3/mm3 4.6-10.2 [...] % 11.6-14.8 platelet count 240 10^3/MM^3 10*3/mm3 094-545 1477/02/17 leukocyte count, blood 3.4 10^3/MM^3 10*3/mm3 4.6-10.2 [...] % 11.6-14.8 platelet count 308 10^3/MM^3 10*3/mm3 023-957 0841/02/25 leukocyte count, blood 6.6 10^3/MM^3 10*3/mm3 4.6-10.2 [...] Panel - Chemistry sodium, serum 144 mmol/L 213-671 2715/12/16 potassium, serum 4.5 mmol/L 3.5-5.2 chloride, serum 107 mmol/L 98-107 carbon dioxide, venous blood 31.4 mmol/L 21.0-32.0 blood glucose 104 mg/dL 65-110 urea nitrogen, blood 17 mg/dL 7-18 creatinine, serum 1.10 mg/dL 0.60-1.30 alanine aminotransferase (SGPT), serum 25 U/L 12-78 aspartate aminotransferase (SGOT), serum 24 U/L 15-37 calcium, serum 8.4 mg/dL 8.5-10.1 bilirubin, serum, total 0.20 mg/dL 0.00-1.00 sodium, serum 141 mmol/L 990-712 4328/01/14 potassium, serum 4.9 mmol/L 3.5-5.2 chloride, serum [...] % 11.6-14.8 platelet count 376 10^3/MM^3 10*3/mm3 835-722 9929/12/16 leukocyte count, blood 19.5 10^3/MM^3 10*3/mm3 4.6-10.2 [...] Panel - Chemistry sodium, serum 140 mmol/L 202-234 9239/07/13 potassium, serum 4.5 mmol/L 3.5-5.2 chloride, serum 106 mmol/L 98-107 carbon dioxide, venous blood 27.7 mmol/L 21.0-32.0 blood glucose 105 mg/dL 65-110 urea nitrogen, blood 14 mg/dL 7-18 creatinine, serum 0.90 mg/dL 0.60-1.30 alanine aminotransferase (SGPT), serum 29 U/L 12-78 aspartate aminotransferase (SGOT), serum 22 U/L 15-37 calcium, serum 9.4 mg/dL 8.5-10.1 bilirubin, serum, total 0.70 mg/dL 0.00-1.00 cholesterol, serum 160 mg/dL 936-412 3815/07/13 triglyceride, serum, fasting 63 mg/dL 30-200 HDL [...] Panel - Chemistry sodium, serum 141 mmol/L 661-271 4756/02/10 potassium, serum 5.2 mmol/L 3.5-5.2 chloride, serum 106 mmol/L 98-107 carbon dioxide, venous blood 27.8 mmol/L 21.0-32.0 blood glucose 111 mg/dL 65-110 urea nitrogen, blood 18 mg/dL 7-18 creatinine, serum 0.90 mg/dL 0.60-1.30 alanine aminotransferase (SGPT), serum 29 U/L 12-78 aspartate aminotransferase (SGOT), serum 21 U/L 15-37 calcium, serum 8.3 mg/dL 8.5-10.1 bilirubin, serum, total 0.40 mg/dL 0.00-1.00 Lab Report: VITAMIN D, 25-HYDROXY/47255 - Chemistry vitamin D 25-hydroxy, serum 24 ng/mL 30-100 Encounters Code Encounter Date Provider Facility CPT-48038 Level 3 Est. Patient 13:25:16 CDT Jennifer Chun MD PhD [facility] CPT-74750 Level 3 Est. Patient 17:31:22 CDT Solomon Alamo MD [facility] CPT-12091 Level 3 Est. Patient 08:02:14 CDT Solomon lAamo MD [facility] CPT-09173 Level 3 Est. Patient 17:23:53 CDT Rikki Stearns [facility] CPT-66565 Level 3 Est. Patient 11:22:41 CDT Darryn Hearn [facility] Procedures Code Procedure Name Date Entry Date Standard Description CPT-I/D I/D Abscess 09:43:13 CDT CPT-93166 Venipuncture Draw Fee 08:16:46 WAREHOUSE RECEIVING CLERK CPT-24848 Venipuncture Draw Fee 08:18:55 WAREHOUSE RECEIVING CLERK CPT-74669 Venipuncture Draw Fee 08:31:18 WAREHOUSE RECEIVING CLERK CPT-65336 Venipuncture Draw Fee 11:42:52 WAREHOUSE RECEIVING CLERK CPT-86484 Venipuncture Draw Fee 13:26:37 WAREHOUSE RECEIVING CLERK CPT-41478 Venipuncture Draw Fee 09:23:38 WAREHOUSE RECEIVING CLERK CPT-000 Give Appropriate Tetanus Booster 10:23:50 CDT CPT-86404 Bone Density 08:28:45 CDT CPT-30920 Bone Density 11:35:15 CDT CPT-PV Prev. Care Visit 12:19:00 CDT CPT-48127 Venipuncture Draw Fee 15:02:58 CDT
--- OUTSIDE RECORDS SUMMARY | 2018-01-19 07:01 | XMS REPORT | Clinical Summary ---
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 Family history of malignant neoplasm [...] (natural) Breast cancer 174.9 Resolved Marta Viramontes DIRECTOR OF MARKETING ANALYTICS Malignant neoplasm of breast (female), unspecified Vitamin [...] toenail, left 703.0 Resolved Marta Yokum DIRECTOR OF MARKETING ANALYTICS Ingrowing nail cellulitis, finger, right 681.00 Resolved Marta Yokum DIRECTOR OF MARKETING ANALYTICS Cellulitis and abscess of finger, unspecified Cough 786.2 Resolved Marta Yokum DIRECTOR OF MARKETING ANALYTICS Cough Bronchitis, acute 466.0 Active Marta Yokum DIRECTOR OF MARKETING ANALYTICS Acute bronchitis Breast microcalcification ICD-793.81 Inactive Jennifer Chun MD PhD Abnormal Mammogram ICD-793.80 Inactive Jennifer Chun MD PhD Breast cancer ICD-174.9 Inactive Marta Yokum DIRECTOR OF MARKETING ANALYTICS Abscess, skin ICD-682.9 Inactive Rikki Daryn PA Cellulitis, 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 Rikki Stearns PA Rash ICD-782.1 Inactive Rikki Stearns PA Upper respiratory infection, acute ICD-465.9 Inactive Rikki Stearns PA Chemotherapy ICD-V58.11 Inactive Rikki Daryn PA Cough, chronic ICD-786.2 Inactive Rikki Daryn PA Ingrown toenail, left ICD-703.0 Inactive Marta Yokum DIRECTOR OF MARKETING ANALYTICS cellulitis, finger, right ICD-681.00 Inactive Marta Yokum DIRECTOR OF MARKETING ANALYTICS Cough ICD-786.2 Inactive Marta Yokum DIRECTOR OF MARKETING ANALYTICS Soft tissue infection ICD-528.9 Inactive Rikki Daryn PA Medication List Medication Instructions Start Date Stop Date Generic Name NDC Status Provider Patient Instruction PROAIR HFA 108 (90 BASE) MCG/ACT INHALATION AEROSOL SOLUTION 2 puffs four times a day as needed ALBUTEROL SULFATE 10212764548 No Longer Active Marta Yokum DIRECTOR OF MARKETING ANALYTICS Active DOXYCYCLINE HYCLATE 100 MG ORAL CAPSULE 1 cap by mouth twice daily DOXYCYCLINE HYCLATE 40722189266 No Longer Active Marta Yokum DIRECTOR OF MARKETING ANALYTICS Active PROAIR HFA 108 (90 BASE) MCG/ACT INHALATION AEROSOL SOLUTION 2 puffs four times a day as needed ALBUTEROL SULFATE 89703951762 Active Marta Yokum DIRECTOR OF MARKETING ANALYTICS Active AUGMENTIN 875-125 MG ORAL TABLET Take one tablet twice a day with food 04/25 AMOXICILLIN-POT CLAVULANATE 38944514328 No Longer Active Marta Yokum DIRECTOR OF MARKETING ANALYTICS Active TESSALON PERLES 100 MG ORAL CAPSULE 1 to 2 tablets by mouth 3 times daily as needed for cough BENZONATATE 11225699412 No Longer Active Marta Yokum DIRECTOR OF MARKETING ANALYTICS Active AUGMENTIN 875-125 MG ORAL TABLET 1 po BID x 10 days AMOXICILLIN-POT CLAVULANATE 10956981420 No Longer Active Marta Yokum DIRECTOR OF MARKETING ANALYTICS Active MEDROL 4 MG ORAL TABLET THERAPY PACK 6 tabs on day 1, 5 tabs on day 2, 4 tabs on day 3, 3 tabs on day 4, 2 tabs on day 5, 1 tab on day 6 METHYLPREDNISOLONE 04820075604 No Longer Active Marta Yokum DIRECTOR OF MARKETING ANALYTICS Active TUSSIONEX PENNKINETIC ER 10-8 MG/5ML ORAL SUSPENSION EXTENDED RELEASE 5ml po q12hr PRN Cough HYDROCOD POLST-CHLORPHEN POLST 58777256926 Active Marta Yokum DIRECTOR OF MARKETING ANALYTICS Active KEFLEX 500 MG ORAL CAPSULE 1 po qid CEPHALEXIN 69491679559 No Longer Active Marta Yokum DIRECTOR OF MARKETING ANALYTICS Active B COMPLEX 50 ORAL TABLET EXTENDED RELEASE B COMPLEX VITAMINS 68970390592 Active Marta Yokum DIRECTOR OF MARKETING ANALYTICS Active TUSSIONEX PENNKINETIC ER 10-8 MG/5ML ORAL SUSPENSION EXTENDED RELEASE 5ml po q12hr PRN Cough HYDROCOD POLST-CHLORPHEN POLST 42011693909 No Longer Active Marta Yokum DIRECTOR OF MARKETING ANALYTICS Active VITAMIN D3 46119 UNIT ORAL CAPSULE 1 qWeek x 4 months for vitamin D deficiency CHOLECALCIFEROL 64479269244 Active Marta Yokum DIRECTOR OF MARKETING ANALYTICS Active CEPHALEXIN 500 MG ORAL CAPSULE Take one four times a day CEPHALEXIN 00669950205 No Longer Active Marta Yokum DIRECTOR OF MARKETING ANALYTICS Active BIOTIN 1000 MCG ORAL TABLET Take one daily BIOTIN 93410933603 Active Rikki Harms PA Active VITAMIN C 500 MG ORAL CAPSULE Take one daily ASCORBIC ACID 78289043913 Active Rikki Harms PA Active BENZONATATE 200 MG ORAL CAPSULE One capsule tid. BENZONATATE 95342767165 No Longer Active Rikki Harms PA Active FLONASE ALLERGY RELIEF 50 MCG/ACT NASAL SUSPENSION spray twice in each nostril one time daily FLUTICASONE PROPIONATE 36212857198 No Longer Active Rikki Harms PA Active TUSSIONEX PENNKINETIC ER 10-8 MG/5ML ORAL SUSPENSION EXTENDED RELEASE 5ml po q12hr PRN Cough HYDROCOD POLST-CHLORPHEN POLST 31127897955 No Longer Active Rikki Harms PA Active NIACIN ER 500 MG ORAL TABLET EXTENDED RELEASE Take one twice daily NIACIN 38515452656 Active Rikki Harms PA Active ALBUTEROL SULFATE (2.5 MG/3ML) 0.083% INHALATION NEBULIZATION SOLUTION one vial per nebulizer every 4-6 hours as needed ALBUTEROL SULFATE 09028715849 No Longer Active Rikki Harms PA Active MEDROL 4 MG ORAL TABLET THERAPY PACK 6 tabs on day 1, 5 tabs on day 2, 4 tabs on day 3, 3 tabs on day 4, 2 tabs on day 5, 1 tab on day 6 METHYLPREDNISOLONE 22360875757 No Longer Active Rikki Harms PA Active LEVAQUIN 750 MG ORAL TABLET 1 po qd x 7 days LEVOFLOXACIN 74583679805 No Longer Active Rikki Harms PA Active LEVAQUIN 500 MG ORAL TABLET Take one tablet daily LEVOFLOXACIN 90377626426 No Longer Active Rikki Harms PA Active LEVAQUIN 500 MG ORAL TABLET 1 tablet by mouth daily LEVOFLOXACIN 94019882804 No Longer Active Marta Viramontes APRN Active CHERATUSSIN AC 100-10 MG/5ML ORAL SYRUP 1 tsp by mouth every 4 hours as needed for cough GUAIFENESIN-CODEINE 55236186848 No Longer Active Rikki Harms PA Active MUPIROCIN 2 % EXTERNAL OINTMENT Use in each nostril in am and pm MUPIROCIN 07416487238 No Longer Active Rikki Harms PA Active DOXYCYCLINE HYCLATE 100 MG ORAL CAPSULE Take one bid DOXYCYCLINE HYCLATE 10649632508 No Longer Active Rikki Harms PA Active CLARITIN 10 MG ORAL TABLET 1prn LORATADINE 75212509243 No Longer Active 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 Active ASPIRIN 81 MG ORAL TABLET 1qd ASPIRIN 64902379607 No Longer Active 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 Active DOXYCYCLINE HYCLATE 100 MG ORAL CAPSULE 1 cap by mouth twice daily DOXYCYCLINE HYCLATE 76068041423 No Longer Active Rikki Harms PA Active VITAMIN D3 30294 UNIT ORAL CAPSULE 1 pill by mouth weekly, for vitamin D deficiency CHOLECALCIFEROL 12462214508 No Longer Active Jennifer Chun MD PhD Active ANASTROZOLE 1 MG ORAL TABLET Take one by mouth daily ANASTROZOLE 74190265614 Active Jennifer Chun MD PhD Active ZITHROMAX 250 MG ORAL TABLET 2 po today, then 1 po q days 2-5 AZITHROMYCIN 27876683708 No Longer Active Rikki Harms PA Active MECLIZINE HCL 25 MG ORAL TABLET 1 prn MECLIZINE HCL 54772406302 No Longer Active Solomon Alamo MD Active CHERATUSSIN AC SYRUP prn as directed GUAIFENESIN- CODEINE SYRP 92199950305 No Longer Active Rikki Harms PA Active MULTIVITAMINS TABS 1qd MULTIPLE VITAMIN 16302083269 No Longer Active Rikki Harms PA Active OMEPRAZOLE 20 MG ORAL CAPSULE DELAYED RELEASE 1 PO Q D OMEPRAZOLE 01005772381 Active 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 Active ZITHROMAX Z-CAROLYN 250 MG ORAL TABLET 2x1day,[id number] AZITHROMYCIN 39805325707 No Longer Active 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 Active MULTIVITAMINS TABS 1qd MULTIVITAMINS TABS MULTIPLE VITAMIN Inactive CHERATUSSIN AC SYRUP prn as directed CHERATUSSIN AC SYRUP GUAIFENESIN-CODEINE SYRP Inactive MECLIZINE HCL 25 MG ORAL TABLET 1 prn MECLIZINE HCL 25 MG ORAL TABLET 682855 MECLIZINE HCL Inactive ASPIRIN 81 MG ORAL TABLET 1qd ASPIRIN 81 MG ORAL TABLET 114138 ASPIRIN Inactive CLARITIN 10 MG ORAL TABLET 1prn CLARITIN 10 MG ORAL TABLET 573663 LORATADINE Inactive DOXYCYCLINE HYCLATE 100 MG ORAL CAPSULE Take one bid DOXYCYCLINE HYCLATE 100 MG ORAL CAPSULE 6069373 DOXYCYCLINE HYCLATE Inactive MUPIROCIN 2 % EXTERNAL OINTMENT Use in each nostril in am and pm MUPIROCIN 2 % EXTERNAL OINTMENT 686996 MUPIROCIN Inactive CHERATUSSIN AC 100-10 MG/5ML ORAL SYRUP 1 tsp by mouth every 4 hours as needed for cough CHERATUSSIN AC 100-10 MG/5ML ORAL SYRUP 867781 GUAIFENESIN-CODEINE Inactive LEVAQUIN 500 MG ORAL TABLET 1 tablet by mouth daily LEVAQUIN 500 MG ORAL TABLET 300878 LEVOFLOXACIN Inactive LEVAQUIN 500 MG ORAL TABLET Take one tablet daily LEVAQUIN 500 MG ORAL TABLET 478128 LEVOFLOXACIN Inactive LEVAQUIN 750 MG ORAL TABLET 1 po qd x 7 days LEVAQUIN 750 MG ORAL TABLET 938929 LEVOFLOXACIN Inactive ALBUTEROL SULFATE (2.5 MG/3ML) 0.083% INHALATION NEBULIZATION SOLUTION one vial per nebulizer every 4-6 hours as needed ALBUTEROL SULFATE (2.5 MG/3ML) 0.083% INHALATION NEBULIZATION SOLUTION 202892 ALBUTEROL SULFATE Inactive TUSSIONEX PENNKINETIC ER 10-8 MG/5ML ORAL SUSPENSION EXTENDED RELEASE 5ml po q12hr PRN Cough TUSSIONEX PENNKINETIC ER 10-8 MG/5ML ORAL SUSPENSION EXTENDED RELEASE HYDROCOD POLST-CHLORPHEN POLST Inactive FLONASE ALLERGY RELIEF 50 MCG/ACT NASAL SUSPENSION spray twice in each nostril one time daily FLONASE ALLERGY RELIEF 50 MCG/ ACT NASAL SUSPENSION 0741030 FLUTICASONE PROPIONATE Inactive BENZONATATE 200 MG ORAL CAPSULE One capsule tid. BENZONATATE 200 MG ORAL CAPSULE 247538 BENZONATATE Inactive CEPHALEXIN 500 MG ORAL CAPSULE Take one four times a day CEPHALEXIN 500 MG ORAL CAPSULE 084593 CEPHALEXIN Inactive TUSSIONEX PENNKINETIC ER 10-8 MG/5ML ORAL SUSPENSION EXTENDED RELEASE 5ml po q12hr PRN Cough TUSSIONEX PENNKINETIC ER 10-8 MG/5ML ORAL SUSPENSION EXTENDED RELEASE HYDROCOD POLST-CHLORPHEN POLST Inactive TESSALON PERLES 100 MG ORAL CAPSULE 1 to 2 tablets by mouth 3 times daily as needed for cough TESSALON PERLES 100 MG ORAL CAPSULE 581961 BENZONATATE Inactive PROAIR HFA 108 (90 BASE) MCG/ACT INHALATION AEROSOL SOLUTION 2 puffs four times a day as needed PROAIR HFA 108 (90 BASE) MCG/ACT INHALATION AEROSOL SOLUTION ALBUTEROL SULFATE Inactive ZITHROMAX Z-CAROLYN 250 MG ORAL TABLET 2x1day,[id number] ZITHROMAX Z-CAROLYN 250 MG ORAL TABLET 443419 AZITHROMYCIN Inactive ZITHROMAX 250 MG ORAL TABLET 2 po today, then 1 po q days 2-5 ZITHROMAX 250 MG ORAL TABLET 215325 AZITHROMYCIN Inactive VITAMIN D3 08909 UNIT ORAL CAPSULE 1 pill by mouth weekly, for vitamin D deficiency VITAMIN D3 66688 UNIT ORAL CAPSULE CHOLECALCIFEROL Inactive DOXYCYCLINE HYCLATE 100 MG ORAL CAPSULE 1 cap by mouth twice daily DOXYCYCLINE HYCLATE 100 MG ORAL CAPSULE 6020642 DOXYCYCLINE HYCLATE Inactive MEDROL 4 MG ORAL TABLET THERAPY PACK 6 tabs on day 1, 5 tabs on day 2, 4 tabs on day 3, 3 tabs on day 4, 2 tabs on day 5, 1 tab on day 6 MEDROL 4 MG ORAL TABLET THERAPY PACK 045266 METHYLPREDNISOLONE Inactive KEFLEX 500 MG ORAL CAPSULE 1 po qid KEFLEX 500 MG ORAL CAPSULE 200277 CEPHALEXIN Inactive MEDROL 4 MG ORAL TABLET THERAPY PACK 6 tabs on day 1, 5 tabs on day 2, 4 tabs on day 3, 3 tabs on day 4, 2 tabs on day 5, 1 tab on day 6 MEDROL 4 MG ORAL TABLET THERAPY PACK 065091 METHYLPREDNISOLONE Inactive AUGMENTIN 875-125 MG ORAL TABLET 1 po BID x 10 days AUGMENTIN 875-125 MG ORAL TABLET 907077 AMOXICILLIN-POT CLAVULANATE Inactive AUGMENTIN 875-125 MG ORAL TABLET Take one tablet twice a day with food 04/25 AUGMENTIN 875-125 MG ORAL TABLET 059226 AMOXICILLIN-POT CLAVULANATE Inactive DOXYCYCLINE HYCLATE 100 MG ORAL CAPSULE 1 cap by mouth twice daily DOXYCYCLINE HYCLATE 100 MG ORAL CAPSULE 5476247 DOXYCYCLINE HYCLATE Inactive Vital Signs Date Name [...] Measured Encounters Code Encounter Date Provider Facility CPT-17605 Level 3 Est. Patient 22:53:06 DREDGE MASTER Marta Viramontes [facility]-28659 Level 3 Est. Patient 16:07:34 CDT Marta [address] [facility] CPT-09042 Level 3 Est. Patient 15:39:01 [facility] Patient 17:31:07 CDT [facility] Patient 05:11:40 CDT Rikki GRANADOS [facility]-56277 Level 2 Est. Patient 14:30:43 DREDGE MASTER Martacarlos Viramontes [facility] CPT-03796 Level 4 Est. Patient 09:14:36 DREDGE MASTER Rikki GRANADOS [facility] CPT-51580 Level 2 Est. Patient 09:07:32 CDT Marta Caalluisblas [facility] CPT-97788 Level 4 Est. Patient 11:55:00 CDT Rikki GRANADOS [facility] CPT-33481 Level 3 Est. Patient 13:25:16 CDT Jennifer Chun MD PhD [facility] CPT-59261 Level 3 Est. Patient 17:31:22 CDT Solomon Alamo MD [facility] CPT-97883 Level 3 Est. Patient 08:02:14 CDT Solomon Alamo MD [facility]-12917 Level 3 Est. Patient 17:23:53 CDT Rikki Stearns [facility] CPT-24547 Level 3 Est. Patient 11:22:41 CDT Darryn Hearn [facility] Procedures Code Procedure Name Date Entry Date Standard Description CPT-21499 Venipuncture Draw Fee 16:09:39 CDT CPT-58944 Venipuncture Draw Fee 12:43:48 DREDGE MASTER CPT-52085 BMP - LAB USE ONLY 10:32:33 DREDGE MASTER CPT-86135 Venipuncture Draw Fee 10:32:33 DREDGE MASTER CPT-75615 Magnesium - LAB USE ONLY 09:54:30 CDT CPT-51359 TSH - LAB USE ONLY 09:54:30 CDT CPT-96326 Lipid - LAB USE ONLY 09:54:30 CDT CPT-71135 Venipuncture Draw Fee 09:54:29 CDT CPT-39401 Venipuncture Draw Fee 18:27:04 CDT CPT-53556 Chest 2V Frontal and Lat 10:57:00 DREDGE MASTER CPT-21967 Venipuncture Draw Fee 10:56:59 DREDGE MASTER CPT-51105 Venipuncture Draw Fee 09:22:28 DREDGE MASTER CPT-35796 Chest 2V Frontal and Lat 09:22:27 DREDGE MASTER CPT-I/D I/D Abscess 09:43:13 CDT CPT-47602 Venipuncture Draw Fee 08:16:46 DREDGE MASTER CPT-99066 Venipuncture Draw Fee 08:18:55 DREDGE MASTER CPT-79312 Venipuncture Draw Fee 08:31:18 DREDGE MASTER CPT-88905 Venipuncture Draw Fee 11:42:52 DREDGE MASTER CPT-29461 Venipuncture Draw Fee 13:26:37 DREDGE MASTER CPT-90852 Venipuncture Draw Fee 09:23:38 DREDGE MASTER CPT-000 Give Appropriate Tetanus Booster 10:23:50 CDT CPT-03345 Bone Density 08:28:45 CDT CPT-64278 Bone Density 11:35:15 CDT CPT-PV Prev. Care Visit 12:19:00 CDT CPT-19312 Venipuncture Draw Fee 15:02:58 CDT
--- OUTSIDE RECORDS SUMMARY | 2018-01-19 07:02 | XMS REPORT | Clinical Summary ---
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 Active Jocelyne Naff SENIOR HARDWARE ENGINEER Family history of malignant neoplasm of gastrointestinal tract ESOPHAGEAL STRICTURE 530.3 Active Darryn Hearn PA Stricture and stenosis of esophagus CAROTID ARTERY STENOSIS, RIGHT 433.10 Active Rikki Stearns PA Occlusion and stenosis of carotid artery, without mention of cerebral infarction HEALTH SCREENING V70.0 Active Rose Darnell SENIOR HARDWARE ENGINEER Routine general medical examination at a [...] unspecified sites Rash 782.1 Active Marta Viramontes PRODUCT SAFETY COORDINATOR Rash and other nonspecific skin eruption Adenocarcinoma, [...] 5, 1 tab on day 6 METHYLPREDNISOLONE 98247163395 No Longer Active Rikki GRANADOS Active ALBUTEROL SULFATE 0.083 % NEBU SOLN one vial per nebulizer every 4-6 hours as needed ALBUTEROL SULFATE 97354712509 Active Rikki Harms PA Active LEVAQUIN 750 MG TABS 1 po qd x 7 days LEVOFLOXACIN 83393486276 No Longer Active Rikki Harms PA Active LEVAQUIN 500 MG ORAL TABS Take one tablet daily LEVOFLOXACIN 26511708165 No Longer Active Rikki Harms PA Active PROAIR HFA 108 (90 BASE) MCG/ACT AERS 2 puffs four times a day as needed 2014 ALBUTEROL SULFATE 54819522037 Active Marta Yokum PRODUCT SAFETY COORDINATOR Active TUSSIONEX PENNKINETIC ER 10-8 MG/5ML LQCR 5ml po q12hr PRN Cough HYDROCOD POLST-CHLORPHEN POLST 93802498902 Active Rikki Harms PA Active FLONASE ALLERGY RELIEF 50 MCG/ACT NASAL SUSP spray twice in each nostril one time daily FLUTICASONE PROPIONATE 63063360799 Active Marta Yokum PRODUCT SAFETY COORDINATOR Active LEVAQUIN 500 MG TAB 1 tablet by mouth daily LEVOFLOXACIN 11549684207 No Longer Active Marta Yokum PRODUCT SAFETY COORDINATOR Active BENZONATATE 200 MG ORAL CAPS One capsule tid. BENZONATATE 16036798108 Active Marta Yokum PRODUCT SAFETY COORDINATOR Active CHERATUSSIN AC 100-10 MG/5ML SYRP 1 tsp by mouth every 4 hours as needed for cough GUAIFENESIN-CODEINE 73417473566 No Longer Active Rikki Harms PA Active MUPIROCIN 2 % EXT OINT Use in each nostril in am and pm MUPIROCIN 88265437165 No Longer Active Rikki Harms PA Active DOXYCYCLINE HYCLATE 100 MG ORAL CAPS Take one bid DOXYCYCLINE HYCLATE 91754303193 No Longer Active Rikki Harms PA Active CLARITIN 10 MG TABS 1prn LORATADINE 36276946880 No Longer Active Jocelyne Naff SENIOR HARDWARE ENGINEER Active ASPIRIN 81 MG TABS 1qd ASPIRIN 79974839502 No Longer Active Jocelyne Naff SENIOR HARDWARE ENGINEER Active DOXYCYCLINE HYCLATE 100 MG CAP 1 cap by mouth twice daily DOXYCYCLINE HYCLATE 67475325260 No Longer Active Rikki Harms PA Active VITAMIN D3 73802 UNIT CAPS 1 pill by mouth weekly, for vitamin D deficiency CHOLECALCIFEROL 00122496352 No Longer Active Jennifer Chun MD PhD Active ANASTROZOLE 1 MG ORAL TABS Take one by mouth daily ANASTROZOLE 93367051438 Active Jennifer Chun MD PhD Active ZITHROMAX 250 MG TAB 2 po today, then 1 po q days 2-5 AZITHROMYCIN 38272000981 No Longer Active Rikki Harms PA Active MECLIZINE HCL 25 MG TABS 1 prn MECLIZINE HCL 91955290200 No Longer Active Solomon Alamo MD Active CHERATUSSIN AC SYRP prn as directed GUAIFENESIN- CODEINE SYRP 25135182300 No Longer Active Rikki Harms PA Active MULTIVITAMINS TABS 1qd MULTIPLE VITAMIN 73983169727 No Longer Active Rikki Harms PA Active OMEPRAZOLE 20 MG CPDR 1 PO Q D OMEPRAZOLE 17608263799 Active Rikki Harms PA Active ZITHROMAX Z-CAROLYN 250 MG TABS 2x1day,8b2cchp AZITHROMYCIN 99282567289 No Longer Active Jocelyne Naff SENIOR HARDWARE ENGINEER Active MULTIVITAMINS TABS 1qd MULTIVITAMINS TABS MULTIPLE VITAMIN Inactive CHERATUSSIN AC SYRP prn as directed CHERATUSSIN AC SYRP GUAIFENESIN-CODEINE SYRP Inactive MECLIZINE HCL 25 MG TABS 1 prn MECLIZINE HCL 25 MG TABS 135561 MECLIZINE HCL Inactive ASPIRIN 81 MG TABS 1qd ASPIRIN 81 MG TABS 312916 ASPIRIN Inactive CLARITIN 10 MG TABS 1prn CLARITIN 10 MG TABS 980759 LORATADINE Inactive DOXYCYCLINE HYCLATE 100 MG ORAL CAPS Take one bid DOXYCYCLINE HYCLATE 100 MG ORAL CAPS 5621845 DOXYCYCLINE HYCLATE Inactive MUPIROCIN 2 % EXT OINT Use in each nostril in am and pm MUPIROCIN 2 % EXT OINT 718510 MUPIROCIN Inactive CHERATUSSIN AC 100-10 MG/5ML SYRP 1 tsp by mouth every 4 hours as needed for cough CHERATUSSIN AC 100-10 MG/5ML SYRP 191585 GUAIFENESIN-CODEINE Inactive LEVAQUIN 500 MG TAB 1 tablet by mouth daily LEVAQUIN 500 MG TAB 656040 LEVOFLOXACIN Inactive LEVAQUIN 500 MG ORAL TABS Take one tablet daily LEVAQUIN 500 MG ORAL TABS 272408 LEVOFLOXACIN Inactive LEVAQUIN 750 MG TABS 1 po qd x 7 days LEVAQUIN 750 MG TABS 830313 LEVOFLOXACIN Inactive ZITHROMAX Z-CAROLYN 250 MG TABS 2x1day,3b1anrr ZITHROMAX Z-CAROLYN 250 MG TABS 2510034 AZITHROMYCIN Inactive ZITHROMAX 250 MG TAB 2 po today, then 1 po q days 2-5 ZITHROMAX 250 MG TAB 1695506 AZITHROMYCIN Inactive VITAMIN D3 06898 UNIT CAPS 1 pill by mouth weekly, for vitamin D deficiency VITAMIN D3 17602 UNIT CAPS CHOLECALCIFEROL Inactive DOXYCYCLINE HYCLATE 100 MG CAP 1 cap by mouth twice daily DOXYCYCLINE HYCLATE 100 MG CAP 4699681 DOXYCYCLINE HYCLATE Inactive MEDROL (CAROLYN) 4 MG [...] % 11.6-14.8 platelet count 143 10^3/MM^3 10*3/mm3 171-018 9552/11/25 leukocyte count, blood 2.1 10^3/MM^3 10*3/mm3 4.6-10.2 [...] % 11.6-14.8 platelet count 139 10^3/MM^3 10*3/mm3 277-962 4968/12/02 leukocyte count, blood 6.7 10^3/MM^3 10*3/mm3 4.6-10.2 [...] % 11.6-14.8 platelet count 258 10^3/MM^3 10*3/mm3 472-633 9018/12/09 leukocyte count, blood 5.3 10^3/MM^3 10*3/mm3 4.6-10.2 [...] % 11.6-14.8 platelet count 240 10^3/MM^3 10*3/mm3 339-496 0248/12/16 leukocyte count, blood 3.2 10^3/MM^3 10*3/mm3 4.6-10.2 [...] % 11.6-14.8 platelet count 158 10^3/MM^3 10*3/mm3 438-284 9905/12/18 leukocyte count, blood 8.8 10^3/MM^3 10*3/mm3 4.6-10.2 [...] % 11.6-14.8 platelet count 207 10^3/MM^3 10*3/mm3 209-737 1988/12/23 leukocyte count, blood 6.2 10^3/MM^3 10*3/mm3 4.6-10.2 [...] % 11.6-14.8 platelet count 183 10^3/MM^3 10*3/mm3 073-648 0096/11/11 leukocyte count, blood 2.0 10^3/MM^3 10*3/mm3 4.6-10.2 [...] % 11.6-14.8 platelet count 203 10^3/MM^3 10*3/mm3 413-796 4206/12/30 leukocyte count, blood 5.2 10^3/MM^3 10*3/mm3 4.6-10.2 [...] % 11.6-14.8 platelet count 200 10^3/MM^3 10*3/mm3 625-563 5708/03/02 leukocyte count, blood 5.1 10^3/MM^3 10*3/mm3 4.6-10.2 [...] Panel - Chemistry sodium, serum 142 mmol/L 364-332 0924/02/04 carbon dioxide, venous blood 24.9 mmol/L 21.0-32.0 potassium, serum 4.1 mmol/L 3.5-5.2 chloride, serum 106 mmol/L 98-107 blood glucose 103 mg/dL 65-110 urea nitrogen, blood 25 mg/dL 7-18 creatinine, serum 0.83 mg/dL 0.55-1.30 alanine aminotransferase (SGPT), serum 38 U/L 12-78 aspartate aminotransferase (SGOT), serum 26 U/L 15-37 calcium, serum 8.7 mg/dL 8.5-10.1 bilirubin, serum, total 0.30 mg/dL 0.00-1.00 sodium, serum 140 mmol/L 675-617 6426/01/13 carbon dioxide, venous blood 26.4 mmol/L 21.0-32.0 potassium, serum 4.2 mmol/L 3.5-5.2 chloride, serum 104 mmol/L 98-107 blood glucose 101 mg/dL 65-110 urea nitrogen, blood 18 mg/dL 7-18 creatinine, serum 0.80 mg/dL 0.55-1.30 alanine aminotransferase (SGPT), serum 28 U/L aspartate aminotransferase (SGOT), serum 24 U/L 15-37 calcium, serum 8.7 mg/dL 8.5-10.1 bilirubin, serum, total 0.50 mg/dL 0.00-1.00 sodium, serum 138 mmol/L 766-411 7996/11/04 carbon dioxide, venous blood 27.7 mmol/L 21.0-32.0 potassium, serum 4.9 mmol/L 3.5-5.2 chloride, serum 104 mmol/L 98-107 blood glucose 92 mg/dL 65-110 urea nitrogen, blood 24 mg/dL 7-18 creatinine, serum 0.95 mg/dL 0.55-1.30 alanine aminotransferase (SGPT), serum 34 U/L aspartate aminotransferase (SGOT), serum 23 U/L - calcium, serum 8.9 mg/dL 8.5-10.1 bilirubin, serum, total 0.70 mg/dL 0.00-1.00 sodium, serum 140 mmol/L 967-151 3495/01/06 carbon dioxide, venous blood 27.2 mmol/L 21.0-32.0 [...] % 11.6-14.8 platelet count 289 10^3/MM^3 10*3/mm3 996-518 6226/01/06 leukocyte count, blood 4.1 10^3/MM^3 10*3/mm3 4.6-10.2 [...] % 11.6-14.8 platelet count 297 10^3/MM^3 10*3/mm3 350-312 9375/02/04 leukocyte count, blood 4.2 10^3/MM^3 10*3/mm3 4.6-10.2 [...] % 11.6-14.8 platelet count 271 10^3/MM^3 10*3/mm3 856-292 9455/11/04 leukocyte count, blood 3.8 10^3/MM^3 10*3/mm3 4.6-10.2 [...] Panel - Chemistry sodium, serum 140 mmol/L 819-177 3470/07/13 potassium, serum 4.5 mmol/L 3.5-5.2 chloride, serum 106 mmol/L 98-107 carbon dioxide, venous blood 27.7 mmol/L 21.0-32.0 blood glucose 105 mg/dL 65-110 urea nitrogen, blood 14 mg/dL 7-18 creatinine, serum 0.90 mg/dL 0.60-1.30 alanine aminotransferase (SGPT), serum 29 U/L 12-78 aspartate aminotransferase (SGOT), serum 22 U/L 15-37 calcium, serum 9.4 mg/dL 8.5-10.1 bilirubin, serum, total 0.70 mg/dL 0.00-1.00 cholesterol, serum 160 mg/dL 296-364 1585/07/13 triglyceride, serum, fasting 63 mg/dL 30-200 HDL [...] Panel - Chemistry sodium, serum 141 mmol/L 341-549 3011/11/18 carbon dioxide, venous blood 26.2 mmol/L 21.0-32.0 potassium, serum 4.4 mmol/L 3.5-5.2 chloride, serum 106 mmol/L 98-107 blood glucose 102 mg/dL 65-110 urea nitrogen, blood 24 mg/dL 7-18 creatinine, serum 0.77 mg/dL 0.55-1.30 alanine aminotransferase (SGPT), serum 30 U/L 12-78 aspartate aminotransferase (SGOT), serum 15 U/L 15-37 calcium, serum 8.3 mg/dL 8.5-10.1 bilirubin, serum, total 0.30 mg/dL 0.00-1.00 sodium, serum 139 mmol/L 534-711 9091/11/25 carbon dioxide, venous blood 27.9 mmol/L 21.0-32.0 potassium, serum 4.7 mmol/L 3.5-5.2 chloride, serum 105 mmol/L 98-107 blood glucose 94 mg/dL 65-110 urea nitrogen, blood 21 mg/dL 7-18 creatinine, serum 0.79 mg/dL 0.55-1.30 alanine aminotransferase (SGPT), serum 40 U/L aspartate aminotransferase (SGOT), serum 22 U/L 15-37 calcium, serum 8.5 mg/dL 8.5-10.1 bilirubin, serum, total 0.80 mg/dL 0.00-1.00 sodium, serum 142 mmol/L 177-694 9894/12/09 carbon dioxide, venous blood 28.5 mmol/L 21.0-32.0 potassium, serum 5.0 mmol/L 3.5-5.2 chloride, serum 109 mmol/L 98-107 blood glucose 91 mg/dL 65-110 urea nitrogen, blood 27 mg/dL - creatinine, serum 0.88 mg/dL 0.55-1.30 alanine aminotransferase (SGPT), serum 31 U/L aspartate aminotransferase (SGOT), serum 18 U/L 15-37 calcium, serum 8.9 mg/dL 8.5-10.1 bilirubin, serum, total 0.40 mg/dL 0.00-1.00 sodium, serum 140 mmol/L 848-069 8026/12/16 carbon dioxide, venous blood 25.4 mmol/L 21.0-32.0 potassium, serum 4.1 mmol/L 3.5-5.2 chloride, serum 104 mmol/L 98-107 blood glucose 110 mg/dL 65-110 urea nitrogen, blood 24 mg/dL - creatinine, serum 0.87 mg/dL 0.55-1.30 alanine aminotransferase (SGPT), serum 35 U/L aspartate aminotransferase (SGOT), serum 21 U/L 15-37 calcium, serum 8.4 mg/dL 8.5-10.1 bilirubin, serum, total 0.50 mg/dL 0.00-1.00 sodium, serum 141 mmol/L 948-176 6065/12/02 carbon dioxide, venous blood 25.9 mmol/L 21.0-32.0 potassium, serum 4.7 mmol/L 3.5-5.2 chloride, serum 106 mmol/L 98-107 blood glucose 78 mg/dL 65-110 urea nitrogen, blood 24 mg/dL 7-18 creatinine, serum 0.75 mg/dL 0.55-1.30 alanine aminotransferase (SGPT), serum 31 U/L aspartate aminotransferase (SGOT), serum 20 U/L - calcium, serum 8.7 mg/dL 8.5-10.1 bilirubin, serum, total 0.30 mg/dL 0.00-1.00 sodium, serum 139 mmol/L 845-216 9965/12/30 carbon dioxide, venous blood 28.2 mmol/L 21.0-32.0 potassium, serum 3.9 mmol/L 3.5-5.2 chloride, serum 105 mmol/L 98-107 blood glucose 91 mg/dL 65-110 urea nitrogen, blood 17 mg/dL 7-18 creatinine, serum 0.81 mg/dL 0.55-1.30 alanine aminotransferase (SGPT), serum 29 U/L aspartate aminotransferase (SGOT), serum 22 U/L 15-37 calcium, serum 8.8 mg/dL 8.5-10.1 bilirubin, serum, total 0.50 mg/dL 0.00-1.00 sodium, serum 141 mmol/L 044-828 4732/11/11 carbon dioxide, venous blood 26.8 mmol/L 21.0-32.0 potassium, serum 4.2 mmol/L 3.5-5.2 chloride, serum 106 mmol/L 98-107 blood glucose 95 mg/dL 65-110 urea nitrogen, blood 18 mg/dL 7-18 creatinine, serum 0.70 mg/dL 0.55-1.30 alanine aminotransferase (SGPT), serum 33 U/L -78 aspartate aminotransferase (SGOT), serum 22 U/L 15-37 calcium, serum 8.5 mg/dL 8.5-10.1 bilirubin, serum, total 0.30 mg/dL 0.00-1.00 sodium, serum 143 mmol/L 732-145 3445/12/23 carbon dioxide, venous blood 24.6 mmol/L 21.0-32.0 potassium, serum 4.1 mmol/L 3.5-5.2 chloride, serum 107 mmol/L 98-107 blood glucose 98 mg/dL 65-110 urea nitrogen, blood 22 mg/dL 7-18 creatinine, serum 0.77 mg/dL 0.55-1.30 alanine aminotransferase (SGPT), serum 28 U/L -78 aspartate aminotransferase (SGOT), serum 20 U/L 15-37 calcium, serum 8.6 mg/dL 8.5-10.1 bilirubin, serum, total 0.30 mg/dL 0.00-1.00 Lab Report: VITAMIN D, 25-HYDROXY/44915 - Chemistry vitamin D 25-hydroxy, serum 24 ng/mL 30-100 Encounters Code Encounter Date Provider Facility CPT-79676 Level 2 Est. Patient 14:30:43 TRANSIT VEHICLE INSPECTOR Marta Viramontes [facility] CPT-18084 Level 4 Est. Patient 09:14:36 TRANSIT VEHICLE INSPECTOR Rikki GRANADOS [facility] CPT-48168 Level 2 Est. Patient 09:07:32 CDT Marta Viramontes PRODUCT SAFETY COORDINATOR [facility] CPT-94356 Level 4 Est. Patient 11:55:00 CDT Rikki GRANADOS [facility] CPT-86004 Level 3 Est. Patient 13:25:16 CDT Jennifer Chun MD PhD [facility] CPT-75892 Level 3 Est. Patient 17:31:22 CDT Solomon Alamo MD [facility] CPT-26152 Level 3 Est. Patient 08:02:14 CDT Solomon Alamo MD [facility] CPT-08200 Level 3 Est. Patient 17:23:53 CDT Rikki GRANADOS [facility] CPT-36139 Level 3 Est. Patient 11:22:41 CDT Darryn Hearn [facility] Procedures Code Procedure Name Date Entry Date Standard Description CPT-52159 Chest 2V Frontal and Lat 10:57:00 TRANSIT VEHICLE INSPECTOR CPT-50395 Venipuncture Draw Fee 10:56:59 TRANSIT VEHICLE INSPECTOR CPT-77211 Venipuncture Draw Fee 09:22:28 TRANSIT VEHICLE INSPECTOR CPT-96421 Chest 2V Frontal and Lat 09:22:27 TRANSIT VEHICLE INSPECTOR CPT-I/D I/D Abscess 09:43:13 CDT CPT-12394 Venipuncture Draw Fee 08:16:46 TRANSIT VEHICLE INSPECTOR CPT-00191 Venipuncture Draw Fee 08:18:55 TRANSIT VEHICLE INSPECTOR CPT-49520 Venipuncture Draw Fee 08:31:18 TRANSIT VEHICLE INSPECTOR CPT-04603 Venipuncture Draw Fee 11:42:52 TRANSIT VEHICLE INSPECTOR CPT-45772 Venipuncture Draw Fee 13:26:37 TRANSIT VEHICLE INSPECTOR CPT-63938 Venipuncture Draw Fee 09:23:38 TRANSIT VEHICLE INSPECTOR CPT-000 Give Appropriate Tetanus Booster 10:23:50 CDT CPT-71591 Bone Density 08:28:45 CDT CPT-92699 Bone Density 11:35:15 CDT CPT-PV Prev. Care Visit 12:19:00 CDT CPT-78416 Venipuncture Draw Fee 15:02:58 CDT
--- OUTSIDE RECORDS SUMMARY | 2018-01-19 07:03 | XMS REPORT | Clinical Summary ---
Author Author Admin, E Organization [facility] Address Unknown Phone Unavailable Allergies, Adverse Reactions, Alerts Allergy Name Reaction Description Start Date Severity Status Provider SULFA facial swelling Critical Active Jocelyne Naff [employer] Conditions or Problems Problem Name Problem Code Onset Date Status Entry Date Provider Comment Standard Description Annotate G E R D 530.81 Active Jocelyne Naff [employer] Esophageal reflux FH COLON CANCER V16.0 Active Jocelyne Naff [employer]ER Family history of malignant neoplasm of gastrointestinal [...] fallopian tube Adenocarcinoma, right breast 174.9 Active Aflreda Anthony RMA Malignant neoplasm of breast (female), [...] a day as needed 2014 ALBUTEROL SULFATE 62893315358 Active Marta Viramontes APRN Active TUSSIONEX PENNKINETIC ER 10-8 MG/5ML LQCR 5ml po q12hr PRN Cough HYDROCOD POLST-CHLORPHEN POLST 86759954315 Active Rikki GRANADOS Active LEVAQUIN 750 MG TABS 1 po qd x 7 days LEVOFLOXACIN 16332247742 Active Marta Viramontes [employer] Active FLONASE ALLERGY RELIEF 50 MCG/ACT NASAL SUSP spray twice in each nostril one time daily FLUTICASONE PROPIONATE 47804678030 Active Marta Maganaum [employer] Active LEVAQUIN 500 MG TAB 1 tablet by mouth daily LEVOFLOXACIN 67029433303 No Longer Active Marta Caalkum [employer] SE[employer]ER Active BENZONATATE 200 MG ORAL CAPS One capsule tid. BENZONATATE 93965198820 Active Martacarlos Maganaum [employer] Active CHERATUSSIN AC 100-10 MG/5ML SYRP 1 tsp by mouth every 4 hours as needed for cough GUAIFENESIN-CODEINE 91480362544 No Longer Active Rikki Harms PA Active MUPIROCIN 2 % EXT OINT Use in each nostril in am and pm MUPIROCIN 77886431365 No Longer Active Rikki Harms PA Active DOXYCYCLINE HYCLATE 100 MG ORAL CAPS Take one bid DOXYCYCLINE HYCLATE 48304666626 No Longer Active Rikki Harms PA Active CLARITIN 10 MG TABS 1prn LORATADINE 79424058835 No Longer Active Jocelyne Naff [employer]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 ASPIRIN 81 MG TABS 1qd ASPIRIN 64878377361 No Longer Active Jocelyne Naff [employer]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 DOXYCYCLINE HYCLATE 100 MG CAP 1 cap by mouth twice daily DOXYCYCLINE HYCLATE 01016685259 No Longer Active Rikki Harms PA Active VITAMIN D3 77018 UNIT CAPS 1 pill by mouth weekly, for vitamin D deficiency CHOLECALCIFEROL 21633480138 No Longer Active Jennifer Chun MD PhD Active ANASTROZOLE 1 MG ORAL TABS Take one by mouth daily ANASTROZOLE 69191930711 Active Jennifer Chun MD PhD Active ZITHROMAX 250 MG TAB 2 po today, then 1 po q days 2-5 AZITHROMYCIN 14729765420 No Longer Active Rikki Harms PA Active MECLIZINE HCL 25 MG TABS 1 prn MECLIZINE HCL 35436328523 No Longer Active Solomon Alamo MD Active CHERATUSSIN AC SYRP prn as directed GUAIFENESIN- CODEINE SYRP 16696914695 No Longer Active Rikki Harms PA Active MULTIVITAMINS TABS 1qd MULTIPLE VITAMIN 08090900584 No Longer Active Rikki Harms PA Active OMEPRAZOLE 20 MG CPDR 1 PO Q D OMEPRAZOLE 50543179484 Active Marta Yokum [employer]ER Active ZITHROMAX Z-CAROLYN 250 MG TABS 2x1day,8f9wrmb AZITHROMYCIN 97719007956 No Longer Active Jocelyne Liliya [employer]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 MULTIVITAMINS TABS 1qd MULTIVITAMINS TABS MULTIPLE VITAMIN Inactive CHERATUSSIN AC SYRP prn as directed CHERATUSSIN AC SYRP GUAIFENESIN-CODEINE SYRP Inactive MECLIZINE HCL 25 MG TABS 1 prn MECLIZINE HCL 25 MG TABS 723257 MECLIZINE HCL Inactive ASPIRIN 81 MG TABS 1qd ASPIRIN 81 MG TABS 608520 ASPIRIN Inactive CLARITIN 10 MG TABS 1prn CLARITIN 10 MG TABS 395051 LORATADINE Inactive DOXYCYCLINE HYCLATE 100 MG ORAL CAPS Take one bid DOXYCYCLINE HYCLATE 100 MG ORAL CAPS 1802729 DOXYCYCLINE HYCLATE Inactive MUPIROCIN 2 % EXT OINT Use in each nostril in am and pm MUPIROCIN 2 % EXT OINT 032612 MUPIROCIN Inactive CHERATUSSIN AC 100-10 MG/5ML SYRP 1 tsp by mouth every 4 hours as needed for cough CHERATUSSIN AC 100-10 MG/5ML SYRP 073156 GUAIFENESIN-CODEINE Inactive LEVAQUIN 500 MG TAB 1 tablet by mouth daily LEVAQUIN 500 MG TAB 231892 LEVOFLOXACIN Inactive ZITHROMAX Z-CAROLYN 250 MG TABS 2x1day,9q6aybw ZITHROMAX Z-CAROLYN 250 MG TABS 7904769 AZITHROMYCIN Inactive ZITHROMAX 250 MG TAB 2 po today, then 1 po q days 2-5 ZITHROMAX 250 MG TAB 4391333 AZITHROMYCIN Inactive VITAMIN D3 65848 UNIT CAPS 1 pill by mouth weekly, for vitamin D deficiency VITAMIN D3 37706 UNIT CAPS CHOLECALCIFEROL Inactive DOXYCYCLINE HYCLATE 100 MG CAP 1 cap by mouth twice daily DOXYCYCLINE HYCLATE 100 MG CAP 8836109 DOXYCYCLINE HYCLATE Inactive Vital Signs Date Name [...] CBC W/DIFF - Hematology leukocyte count, blood 9.8 10^3/MM^3 10*3/mm3 4.6-10.2 [...] % 11.6-14.8 platelet count 195 10^3/MM^3 10*3/mm3 025-407 9605/01/28 leukocyte count, blood 11.9 10^3/MM^3 10*3/mm3 4.6-10.2 [...] % 11.6-14.8 platelet count 278 10^3/MM^3 10*3/mm3 491-273 6070/02/04 leukocyte count, blood 8.5 10^3/MM^3 10*3/mm3 4.6-10.2 [...] % 11.6-14.8 platelet count 326 10^3/MM^3 10*3/mm3 099-051 2461/02/10 leukocyte count, blood 2.3 10^3/MM^3 10*3/mm3 4.6-10.2 [...] % 11.6-14.8 platelet count 240 10^3/MM^3 10*3/mm3 533-585 9160/02/17 leukocyte count, blood 3.4 10^3/MM^3 10*3/mm3 4.6-10.2 [...] % 11.6-14.8 platelet count 308 10^3/MM^3 10*3/mm3 703-041 9323/02/25 leukocyte count, blood 6.6 10^3/MM^3 10*3/mm3 4.6-10.2 [...] % 11.6-14.8 platelet count 433 10^3/MM^3 10*3/mm3 663-740 8539/11/11 leukocyte count, blood 2.0 10^3/MM^3 10*3/mm3 4.6-10.2 [...] % 11.6-14.8 platelet count 203 10^3/MM^3 10*3/mm3 177-919 3108/11/18 leukocyte count, blood 8.5 10^3/MM^3 10*3/mm3 4.6-10.2 [...] % 11.6-14.8 platelet count 143 10^3/MM^3 10*3/mm3 717-700 3476/11/25 leukocyte count, blood 2.1 10^3/MM^3 10*3/mm3 4.6-10.2 [...] % 11.6-14.8 platelet count 139 10^3/MM^3 10*3/mm3 385-861 9925/12/02 leukocyte count, blood 6.7 10^3/MM^3 10*3/mm3 4.6-10.2 [...] % 11.6-14.8 platelet count 258 10^3/MM^3 10*3/mm3 919-645 8236/12/09 leukocyte count, blood 5.3 10^3/MM^3 10*3/mm3 4.6-10.2 [...] % 11.6-14.8 platelet count 240 10^3/MM^3 10*3/mm3 788-949 8608/12/16 leukocyte count, blood 3.2 10^3/MM^3 10*3/mm3 4.6-10.2 [...] % 11.6-14.8 platelet count 158 10^3/MM^3 10*3/mm3 272-102 8174/12/18 leukocyte count, blood 8.8 10^3/MM^3 10*3/mm3 4.6-10.2 [...] % 11.6-14.8 platelet count 207 10^3/MM^3 10*3/mm3 061-888 3741/12/23 leukocyte count, blood 6.2 10^3/MM^3 10*3/mm3 4.6-10.2 [...] % 11.6-14.8 platelet count 183 10^3/MM^3 10*3/mm3 819-142 0802/12/30 leukocyte count, blood 5.2 10^3/MM^3 10*3/mm3 4.6-10.2 [...] Comp. Metabolic Panel - Chemistry sodium, serum 140 mmol/L 346-164 7775/01/06 carbon dioxide, venous blood 27.2 mmol/L 21.0-32.0 potassium, serum 4.1 mmol/L 3.5-5.2 chloride, serum 105 mmol/L 98-107 blood glucose 70 mg/dL 65-110 urea nitrogen, blood 25 mg/dL 7-18 creatinine, serum 0.90 mg/dL 0.55-1.30 alanine aminotransferase (SGPT), serum 28 U/L -78 aspartate aminotransferase (SGOT), serum 20 U/L 15-37 calcium, serum 8.9 mg/dL 8.5-10.1 bilirubin, serum, total 0.40 mg/dL 0.00-1.00 sodium, serum 140 mmol/L 843-640 3830/01/13 carbon dioxide, venous blood 26.4 mmol/L 21.0-32.0 potassium, serum 4.2 mmol/L 3.5-5.2 chloride, serum 104 mmol/L 98-107 blood glucose 101 mg/dL 65-110 urea nitrogen, blood 18 mg/dL 7-18 creatinine, serum 0.80 mg/dL 0.55-1.30 alanine aminotransferase (SGPT), serum 28 U/L - aspartate aminotransferase (SGOT), serum 24 U/L 15-37 calcium, serum 8.7 mg/dL 8.5-10.1 bilirubin, serum, total 0.50 mg/dL 0.00-1.00 sodium, serum 138 mmol/L 090-488 3478/11/04 carbon dioxide, venous blood 27.7 mmol/L 21.0-32.0 potassium, serum 4.9 mmol/L 3.5-5.2 chloride, serum 104 mmol/L 98-107 blood glucose 92 mg/dL 65-110 urea nitrogen, blood 24 mg/dL 7-18 creatinine, serum 0.95 mg/dL 0.55-1.30 alanine aminotransferase (SGPT), serum 34 U/L aspartate aminotransferase (SGOT), serum 23 U/L - calcium, serum 8.9 mg/dL 8.5-10.1 bilirubin, serum, total 0.70 mg/dL 0.00-1.00 sodium, serum 141 mmol/L 382-181 6881/01/14 potassium, serum 4.9 mmol/L 3.5-5.2 chloride, serum 107 mmol/L 98-107 carbon dioxide, venous blood 28.9 mmol/L 21.0-32.0 blood glucose 100 mg/dL 65-110 urea nitrogen, blood 19 mg/dL 7-18 creatinine, serum 0.90 mg/dL 0.60-1.30 alanine aminotransferase (SGPT), serum 28 U/L aspartate aminotransferase (SGOT), serum 24 U/L - calcium, serum 8.2 mg/dL 8.5-10.1 bilirubin, serum, [...] % 11.6-14.8 platelet count 376 10^3/MM^3 10*3/mm3 225-961 3677/11/04 leukocyte count, blood 3.8 10^3/MM^3 10*3/mm3 4.6-10.2 [...] % 11.6-14.8 platelet count 216 10^3/MM^3 10*3/mm3 824-588 2435/01/06 leukocyte count, blood 4.1 10^3/MM^3 10*3/mm3 4.6-10.2 [...] % 11.6-14.8 platelet count 297 10^3/MM^3 10*3/mm3 368-178 1733/01/13 leukocyte count, blood 5.2 10^3/MM^3 10*3/mm3 4.6-10.2 [...] % 11.6-14.8 platelet count 289 10^3/MM^3 10*3/mm3 142-424 Lab Report: CBC, Comp. Metabolic Panel, Lipid Panel - Chemistry sodium, serum 140 mmol/L 265-837 9654/07/13 potassium, serum 4.5 mmol/L 3.5-5.2 chloride, serum 106 mmol/L 98-107 carbon dioxide, venous blood 27.7 mmol/L 21.0-32.0 blood glucose 105 mg/dL 65-110 urea nitrogen, blood 14 mg/dL 7-18 creatinine, serum 0.90 mg/dL 0.60-1.30 alanine aminotransferase (SGPT), serum 29 U/L 12-78 aspartate aminotransferase (SGOT), serum 22 U/L 15-37 calcium, serum 9.4 mg/dL 8.5-10.1 bilirubin, serum, total 0.70 mg/dL 0.00-1.00 cholesterol, serum 160 mg/dL 713-104 1571/07/13 triglyceride, serum, fasting 63 mg/dL 30-200 HDL [...] Panel - Chemistry sodium, serum 141 mmol/L 732-101 0856/02/10 potassium, serum 5.2 mmol/L 3.5-5.2 chloride, serum 106 mmol/L 98-107 carbon dioxide, venous blood 27.8 mmol/L 21.0-32.0 blood glucose 111 mg/dL 65-110 urea nitrogen, blood 18 mg/dL 7-18 creatinine, serum 0.90 mg/dL 0.60-1.30 alanine aminotransferase (SGPT), serum 29 U/L 12-78 aspartate aminotransferase (SGOT), serum 21 U/L 15-37 calcium, serum 8.3 mg/dL 8.5-10.1 bilirubin, serum, total 0.40 mg/dL 0.00-1.00 sodium, serum 141 mmol/L 834-989 5774/11/11 carbon dioxide, venous blood 26.8 mmol/L 21.0-32.0 potassium, serum 4.2 mmol/L 3.5-5.2 chloride, serum 106 mmol/L 98-107 blood glucose 95 mg/dL 65-110 urea nitrogen, blood 18 mg/dL 7-18 creatinine, serum 0.70 mg/dL 0.55-1.30 alanine aminotransferase (SGPT), serum 33 U/L aspartate aminotransferase (SGOT), serum 22 U/L 15-37 calcium, serum 8.5 mg/dL 8.5-10.1 bilirubin, serum, total 0.30 mg/dL 0.00-1.00 sodium, serum 143 mmol/L 048-894 4438/12/23 carbon dioxide, venous blood 24.6 mmol/L 21.0-32.0 potassium, serum 4.1 mmol/L 3.5-5.2 chloride, serum 107 mmol/L 98-107 blood glucose 98 mg/dL 65-110 urea nitrogen, blood 22 mg/dL 7-18 creatinine, serum 0.77 mg/dL 0.55-1.30 alanine aminotransferase (SGPT), serum 28 U/L aspartate aminotransferase (SGOT), serum 20 U/L - calcium, serum 8.6 mg/dL 8.5-10.1 bilirubin, serum, total 0.30 mg/dL 0.00-1.00 sodium, serum 142 mmol/L 025-773 3888/12/09 carbon dioxide, venous blood 28.5 mmol/L 21.0-32.0 potassium, serum 5.0 mmol/L 3.5-5.2 chloride, serum 109 mmol/L 98-107 blood glucose 91 mg/dL 65-110 urea nitrogen, blood 27 mg/dL 7-18 creatinine, serum 0.88 mg/dL 0.55-1.30 alanine aminotransferase (SGPT), serum 31 U/L aspartate aminotransferase (SGOT), serum 18 U/L -37 calcium, serum 8.9 mg/dL 8.5-10.1 bilirubin, serum, total 0.40 mg/dL 0.00-1.00 sodium, serum 140 mmol/L 649-525 0896/12/16 carbon dioxide, venous blood 25.4 mmol/L 21.0-32.0 potassium, serum 4.1 mmol/L 3.5-5.2 chloride, serum 104 mmol/L 98-107 blood glucose 110 mg/dL 65-110 urea nitrogen, blood 24 mg/dL 7-18 creatinine, serum 0.87 mg/dL 0.55-1.30 alanine aminotransferase (SGPT), serum 35 U/L aspartate aminotransferase (SGOT), serum 21 U/L 15-37 calcium, serum 8.4 mg/dL 8.5-10.1 bilirubin, serum, total 0.50 mg/dL 0.00-1.00 sodium, serum 141 mmol/L 525-729 2230/12/02 carbon dioxide, venous blood 25.9 mmol/L 21.0-32.0 potassium, serum 4.7 mmol/L 3.5-5.2 chloride, serum 106 mmol/L 98-107 blood glucose 78 mg/dL 65-110 urea nitrogen, blood 24 mg/dL 7-18 creatinine, serum 0.75 mg/dL 0.55-1.30 alanine aminotransferase (SGPT), serum 31 U/L aspartate aminotransferase (SGOT), serum 20 U/L 15-37 calcium, serum 8.7 mg/dL 8.5-10.1 bilirubin, serum, total 0.30 mg/dL 0.00-1.00 sodium, serum 141 mmol/L 035-009 0669/11/18 carbon dioxide, venous blood 26.2 mmol/L 21.0-32.0 potassium, serum 4.4 mmol/L 3.5-5.2 chloride, serum 106 mmol/L 98-107 blood glucose 102 mg/dL 65-110 urea nitrogen, blood 24 mg/dL 7-18 creatinine, serum 0.77 mg/dL 0.55-1.30 alanine aminotransferase (SGPT), serum 30 U/L - aspartate aminotransferase (SGOT), serum 15 U/L 15-37 calcium, serum 8.3 mg/dL 8.5-10.1 bilirubin, serum, total 0.30 mg/dL 0.00-1.00 sodium, serum 139 mmol/L 826-050 9316/11/25 carbon dioxide, venous blood 27.9 mmol/L 21.0-32.0 potassium, serum 4.7 mmol/L 3.5-5.2 chloride, serum 105 mmol/L 98-107 blood glucose 94 mg/dL 65-110 urea nitrogen, blood 21 mg/dL 7-18 creatinine, serum 0.79 mg/dL 0.55-1.30 alanine aminotransferase (SGPT), serum 40 U/L aspartate aminotransferase (SGOT), serum 22 U/L 15-37 calcium, serum 8.5 mg/dL 8.5-10.1 bilirubin, serum, total 0.80 mg/dL 0.00-1.00 sodium, serum 139 mmol/L 650-371 2391/12/30 carbon dioxide, venous blood 28.2 mmol/L 21.0-32.0 potassium, serum 3.9 mmol/L 3.5-5.2 chloride, serum 105 mmol/L 98-107 blood glucose 91 mg/dL 65-110 urea nitrogen, blood 17 mg/dL 7-18 creatinine, serum 0.81 mg/dL 0.55-1.30 alanine aminotransferase (SGPT), serum 29 U/L - aspartate aminotransferase (SGOT), serum 22 U/L 15-37 calcium, serum 8.8 mg/dL 8.5-10.1 bilirubin, serum, total 0.50 mg/dL 0.00-1.00 Lab Report: VITAMIN D, 25-HYDROXY/91076 - Chemistry vitamin D 25-hydroxy, serum 24 ng/mL 30-100 Encounters Code Encounter Date Provider Facility CPT-15342 Level 2 Est. Patient 14:30:43 SILK BLOCKER Marta Viramontes [facility] CPT-47044 Level 4 Est. Patient 09:14:36 SILK BLOCKER Rikki GRANADOS [facility] CPT-41878 Level 2 Est. Patient 09:07:32 CDT Marta Viramontes [facility] CPT-46740 Level 4 Est. Patient 11:55:00 CDT Rikki GRANADOS [facility] CPT-84890 Level 3 Est. Patient 13:25:16 CDT Jennifer Chun MD PhD [facility] CPT-94100 Level 3 Est. Patient 17:31:22 CDT Solomon Alamo MD [facility] CPT-85503 Level 3 Est. Patient 08:02:14 CDT Solomon Alamo MD [facility] CPT-57663 Level 3 Est. Patient 17:23:53 CDT Rikki GRANADOS [facility] CPT-61305 Level 3 Est. Patient 11:22:41 CDT Darryn Hearn [facility] Procedures Code Procedure Name Date Entry Date Standard Description CPT-70520 Venipuncture Draw Fee 09:22:28 SILK BLOCKER CPT-37155 Chest 2V Frontal and Lat 09:22:27 SILK BLOCKER CPT-I/D I/D Abscess 09:43:13 CDT CPT-30627 Venipuncture Draw Fee 08:16:46 SILK BLOCKER CPT-99355 Venipuncture Draw Fee 08:18:55 SILK BLOCKER CPT-21187 Venipuncture Draw Fee 08:31:18 SILK BLOCKER CPT-09707 Venipuncture Draw Fee 11:42:52 SILK BLOCKER CPT-03108 Venipuncture Draw Fee 13:26:37 SILK BLOCKER CPT-33391 Venipuncture Draw Fee 09:23:38 SILK BLOCKER CPT-000 Give Appropriate Tetanus Booster 10:23:50 CDT CPT-36011 Bone Density 08:28:45 CDT CPT-32043 Bone Density 11:35:15 CDT CPT-PV Prev. Care Visit 12:19:00 CDT CPT-35141 Venipuncture Draw Fee 15:02:58 CDT
--- OUTSIDE RECORDS SUMMARY | 2018-01-19 07:03 | XMS REPORT | Clinical Summary ---
Author Author Admin, E Organization [facility] Address Unknown Phone Unavailable Allergies, Adverse Reactions, Alerts Allergy Name Reaction Description Start Date Severity Status Provider SULFA facial swelling Critical Active Jocelyne Naff NANNY BABYSITTER Conditions or Problems Problem Name Problem Code Onset Date Status Entry Date Provider Comment Standard Description Annotate G E R D 530.81 Active Jocelyne Naff NANNY BABYSITTER Esophageal reflux FH COLON CANCER V16.0 Active Jocelyne Naff NANNY BABYSITTER Family history of malignant neoplasm of gastrointestinal [...] (natural) Breast cancer 174.9 Resolved Marta Viramontes [employer]ACHINE Malignant neoplasm of breast (female), unspecified Vitamin [...] Ingrown toenail, left 703.0 Resolved Marta Yokum [employer]AY[employer]ACHINE Ingrowing nail cellulitis, finger, right 681.00 Resolved Marta Yokum [employer]INE Cellulitis and abscess of finger, unspecified Cough 786.2 Resolved Marta Yokum [employer]AY[employer] MACHINE Cough Bronchitis, acute 466.0 Active Marta Yokum [employer]ACHINE Acute bronchitis Breast microcalcification ICD-793.81 Inactive Jennifer Chun MD PhD Abnormal Mammogram ICD-793.80 Inactive Jennifer Chun MD PhD Breast cancer ICD-174.9 Inactive Marta Yokum [employer]INE Soft tissue infection ICD-528.9 Inactive Rikki Daryn PA Abscess, skin ICD-682.9 Inactive Rikki Harms PA Cellulitis, 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 Rikki Harms PA Rash ICD-782.1 Inactive Rikki Harms PA Upper respiratory infection, acute ICD-465.9 Inactive Rikki Harms PA Chemotherapy ICD-V58.11 Inactive Rikki Daryn PA Cough, chronic ICD-786.2 Inactive Rikki Daryn PA Ingrown toenail, left ICD-703.0 Inactive Marta Yokum [employer]INE cellulitis, finger, right ICD-681.00 Inactive Marta Yokum [employer]AYER MACHINE Cough ICD-786.2 Inactive Marta Yokum [employer]ACHINE Medication List Medication Instructions Start Date Stop Date Generic Name NDC Status Provider Patient Instruction PROAIR HFA 108 (90 BASE) MCG/ACT INHALATION AEROSOL SOLUTION 2 puffs four times a day as needed ALBUTEROL SULFATE 84652122972 No Longer Active Marta Yokum [employer]AYER MACHINE Active DOXYCYCLINE HYCLATE 100 MG ORAL CAPSULE 1 cap by mouth twice daily DOXYCYCLINE HYCLATE 21863521795 No Longer Active Marta Yokum [employer]AYER MACHINE Active PROAIR HFA 108 (90 BASE) MCG/ACT INHALATION AEROSOL SOLUTION 2 puffs four times a day as needed ALBUTEROL SULFATE 07366879728 Active Marta Yokum SPRAYER MACHINE Active AUGMENTIN 875-125 MG ORAL TABLET Take one tablet twice a day with food 04/25 AMOXICILLIN-POT CLAVULANATE 99558143552 No Longer Active Marta Yokum [employer]AYER MACHINE Active TESSALON PERLES 100 MG ORAL CAPSULE 1 to 2 tablets by mouth 3 times daily as needed for cough BENZONATATE 85291080680 No Longer Active Marta Yokum SPRAYER MACHINE Active AUGMENTIN 875-125 MG ORAL TABLET 1 po BID x 10 days AMOXICILLIN-POT CLAVULANATE 96349710170 No Longer Active Marta Yokum SPRAYER MACHINE Active MEDROL 4 MG ORAL TABLET THERAPY PACK 6 tabs on day 1, 5 tabs on day 2, 4 tabs on day 3, 3 tabs on day 4, 2 tabs on day 5, 1 tab on day 6 METHYLPREDNISOLONE 81512916199 No Longer Active Marta Yokum SPRAYER MACHINE Active TUSSIONEX PENNKINETIC ER 10-8 MG/5ML ORAL SUSPENSION EXTENDED RELEASE 5ml po q12hr PRN Cough HYDROCOD POLST-CHLORPHEN POLST 21583312917 Active Marta Yokum SPRAYER MACHINE Active KEFLEX 500 MG ORAL CAPSULE 1 po qid CEPHALEXIN 85060603106 No Longer Active Marta Yokum SPRAYER MACHINE Active B COMPLEX 50 ORAL TABLET EXTENDED RELEASE B COMPLEX VITAMINS 29189224313 Active Marta Yokum SPRAYER MACHINE Active TUSSIONEX PENNKINETIC ER 10-8 MG/5ML ORAL SUSPENSION EXTENDED RELEASE 5ml po q12hr PRN Cough HYDROCOD POLST-CHLORPHEN POLST 32842813776 No Longer Active Marta Yokum SPRAYER MACHINE Active VITAMIN D3 49874 UNIT ORAL CAPSULE 1 qWeek x 4 months for vitamin D deficiency CHOLECALCIFEROL 78274136052 Active Marta Yokum SPRAYER MACHINE Active CEPHALEXIN 500 MG ORAL CAPSULE Take one four times a day CEPHALEXIN 46769952216 No Longer Active Marta Yokum SPRAYER MACHINE Active BIOTIN 1000 MCG ORAL TABLET Take one daily BIOTIN 69856578582 Active Rikki Harms PA Active VITAMIN C 500 MG ORAL CAPSULE Take one daily ASCORBIC ACID 15436709781 Active Rikki Harms PA Active BENZONATATE 200 MG ORAL CAPSULE One capsule tid. BENZONATATE 13233141611 No Longer Active Rikki Harms PA Active FLONASE ALLERGY RELIEF 50 MCG/ACT NASAL SUSPENSION spray twice in each nostril one time daily FLUTICASONE PROPIONATE 28153504705 No Longer Active Rikki Harms PA Active TUSSIONEX PENNKINETIC ER 10-8 MG/5ML ORAL SUSPENSION EXTENDED RELEASE 5ml po q12hr PRN Cough HYDROCOD POLST-CHLORPHEN POLST 42827275040 No Longer Active Rikki Harms PA Active NIACIN ER 500 MG ORAL TABLET EXTENDED RELEASE Take one twice daily NIACIN 64074748998 Active Rikki Harms PA Active ALBUTEROL SULFATE (2.5 MG/3ML) 0.083% INHALATION NEBULIZATION SOLUTION one vial per nebulizer every 4-6 hours as needed ALBUTEROL SULFATE 72376245372 No Longer Active Rikki Harms PA Active MEDROL 4 MG ORAL TABLET THERAPY PACK 6 tabs on day 1, 5 tabs on day 2, 4 tabs on day 3, 3 tabs on day 4, 2 tabs on day 5, 1 tab on day 6 METHYLPREDNISOLONE 15533650801 No Longer Active Rikki Harms PA Active LEVAQUIN 750 MG ORAL TABLET 1 po qd x 7 days LEVOFLOXACIN 53359366327 No Longer Active Rikki Harms PA Active LEVAQUIN 500 MG ORAL TABLET Take one tablet daily LEVOFLOXACIN 72125043408 No Longer Active Rikki Harms PA Active LEVAQUIN 500 MG ORAL TABLET 1 tablet by mouth daily LEVOFLOXACIN 93641567325 No Longer Active Marta Viramontes APRN Active CHERATUSSIN AC 100-10 MG/5ML ORAL SYRUP 1 tsp by mouth every 4 hours as needed for cough GUAIFENESIN-CODEINE 87134601652 No Longer Active Rikki Harms PA Active MUPIROCIN 2 % EXTERNAL OINTMENT Use in each nostril in am and pm MUPIROCIN 68765353836 No Longer Active Rikki Harms PA Active DOXYCYCLINE HYCLATE 100 MG ORAL CAPSULE Take one bid DOXYCYCLINE HYCLATE 33155031333 No Longer Active Rikki Harms PA Active CLARITIN 10 MG ORAL TABLET 1prn LORATADINE 55341280600 No Longer Active Jocelyne Naff NANNY BABYSITTER Active ASPIRIN 81 MG ORAL TABLET 1qd ASPIRIN 98695899720 No Longer Active Jocelyne Naff NANNY BABYSITTER Active DOXYCYCLINE HYCLATE 100 MG ORAL CAPSULE 1 cap by mouth twice daily DOXYCYCLINE HYCLATE 13466645812 No Longer Active Rikki Harms PA Active VITAMIN D3 25167 UNIT ORAL CAPSULE 1 pill by mouth weekly, for vitamin D deficiency CHOLECALCIFEROL 40966747683 No Longer Active Jennifer Chun MD PhD Active ANASTROZOLE 1 MG ORAL TABLET Take one by mouth daily ANASTROZOLE 25856483187 Active Jennifer Chun MD PhD Active ZITHROMAX 250 MG ORAL TABLET 2 po today, then 1 po q days 2-5 AZITHROMYCIN 15228633801 No Longer Active Rikki Harms PA Active MECLIZINE HCL 25 MG ORAL TABLET 1 prn MECLIZINE HCL 40527906209 No Longer Active Solomon Alamo MD Active CHERATUSSIN AC SYRUP prn as directed GUAIFENESIN- CODEINE SYRP 55486158662 No Longer Active Rikki Harms PA Active MULTIVITAMINS TABS 1qd MULTIPLE VITAMIN 22393490867 No Longer Active Rikki Harms PA Active OMEPRAZOLE 20 MG ORAL CAPSULE DELAYED RELEASE 1 PO Q D OMEPRAZOLE 05541559080 Active AMY Snow Active ZITHROMAX Z-CAROLYN 250 MG ORAL TABLET 2x1day,[id number] AZITHROMYCIN 40372995859 No Longer Active Jocelyne Naff NANNY BABYSITTER Active MULTIVITAMINS TABS 1qd MULTIVITAMINS TABS MULTIPLE VITAMIN Inactive CHERATUSSIN AC SYRUP prn as directed CHERATUSSIN AC SYRUP GUAIFENESIN-CODEINE SYRP Inactive MECLIZINE HCL 25 MG ORAL TABLET 1 prn MECLIZINE HCL 25 MG ORAL TABLET 629012 MECLIZINE HCL Inactive ASPIRIN 81 MG ORAL TABLET 1qd ASPIRIN 81 MG ORAL TABLET 932673 ASPIRIN Inactive CLARITIN 10 MG ORAL TABLET 1prn CLARITIN 10 MG ORAL TABLET 361626 LORATADINE Inactive DOXYCYCLINE HYCLATE 100 MG ORAL CAPSULE Take one bid DOXYCYCLINE HYCLATE 100 MG ORAL CAPSULE 8069254 DOXYCYCLINE HYCLATE Inactive MUPIROCIN 2 % EXTERNAL OINTMENT Use in each nostril in am and pm MUPIROCIN 2 % EXTERNAL OINTMENT 870621 MUPIROCIN Inactive CHERATUSSIN AC 100-10 MG/5ML ORAL SYRUP 1 tsp by mouth every 4 hours as needed for cough CHERATUSSIN AC 100-10 MG/5ML ORAL SYRUP 886308 GUAIFENESIN-CODEINE Inactive LEVAQUIN 500 MG ORAL TABLET 1 tablet by mouth daily LEVAQUIN 500 MG ORAL TABLET 986619 LEVOFLOXACIN Inactive LEVAQUIN 500 MG ORAL TABLET Take one tablet daily LEVAQUIN 500 MG ORAL TABLET 995881 LEVOFLOXACIN Inactive LEVAQUIN 750 MG ORAL TABLET 1 po qd x 7 days LEVAQUIN 750 MG ORAL TABLET 372281 LEVOFLOXACIN Inactive ALBUTEROL SULFATE (2.5 MG/3ML) 0.083% INHALATION NEBULIZATION SOLUTION one vial per nebulizer every 4-6 hours as needed ALBUTEROL SULFATE (2.5 MG/3ML) 0.083% INHALATION NEBULIZATION SOLUTION 239596 ALBUTEROL SULFATE Inactive TUSSIONEX PENNKINETIC ER 10-8 MG/5ML ORAL SUSPENSION EXTENDED RELEASE 5ml po q12hr PRN Cough TUSSIONEX PENNKINETIC ER 10-8 MG/5ML ORAL SUSPENSION EXTENDED RELEASE HYDROCOD POLST-CHLORPHEN POLST Inactive FLONASE ALLERGY RELIEF 50 MCG/ACT NASAL SUSPENSION spray twice in each nostril one time daily FLONASE ALLERGY RELIEF 50 MCG/ ACT NASAL SUSPENSION 1633838 FLUTICASONE PROPIONATE Inactive BENZONATATE 200 MG ORAL CAPSULE One capsule tid. BENZONATATE 200 MG ORAL CAPSULE 850412 BENZONATATE Inactive CEPHALEXIN 500 MG ORAL CAPSULE Take one four times a day CEPHALEXIN 500 MG ORAL CAPSULE 470099 CEPHALEXIN Inactive TUSSIONEX PENNKINETIC ER 10-8 MG/5ML ORAL SUSPENSION EXTENDED RELEASE 5ml po q12hr PRN Cough TUSSIONEX PENNKINETIC ER 10-8 MG/5ML ORAL SUSPENSION EXTENDED RELEASE HYDROCOD POLST-CHLORPHEN POLST Inactive TESSALON PERLES 100 MG ORAL CAPSULE 1 to 2 tablets by mouth 3 times daily as needed for cough TESSALON PERLES 100 MG ORAL CAPSULE 485209 BENZONATATE Inactive PROAIR HFA 108 (90 BASE) MCG/ACT INHALATION AEROSOL SOLUTION 2 puffs four times a day as needed PROAIR HFA 108 (90 BASE) MCG/ACT INHALATION AEROSOL SOLUTION ALBUTEROL SULFATE Inactive ZITHROMAX Z-CAROLYN 250 MG ORAL TABLET 2x1day,7x0jdzn ZITHROMAX Z-CAROLYN 250 MG ORAL TABLET 641163 AZITHROMYCIN Inactive ZITHROMAX 250 MG ORAL TABLET 2 po today, then 1 po q days 2-5 ZITHROMAX 250 MG ORAL TABLET 507797 AZITHROMYCIN Inactive VITAMIN D3 27437 UNIT ORAL CAPSULE 1 pill by mouth weekly, for vitamin D deficiency VITAMIN D3 62492 UNIT ORAL CAPSULE CHOLECALCIFEROL Inactive DOXYCYCLINE HYCLATE 100 MG ORAL CAPSULE 1 cap by mouth twice daily DOXYCYCLINE HYCLATE 100 MG ORAL CAPSULE 7586363 DOXYCYCLINE HYCLATE Inactive MEDROL 4 MG ORAL TABLET THERAPY PACK 6 tabs on day 1, 5 tabs on day 2, 4 tabs on day 3, 3 tabs on day 4, 2 tabs on day 5, 1 tab on day 6 MEDROL 4 MG ORAL TABLET THERAPY PACK 896073 METHYLPREDNISOLONE Inactive KEFLEX 500 MG ORAL CAPSULE 1 po qid KEFLEX 500 MG ORAL CAPSULE 288487 CEPHALEXIN Inactive MEDROL 4 MG ORAL TABLET THERAPY PACK 6 tabs on day 1, 5 tabs on day 2, 4 tabs on day 3, 3 tabs on day 4, 2 tabs on day 5, 1 tab on day 6 MEDROL 4 MG ORAL TABLET THERAPY PACK 900708 METHYLPREDNISOLONE Inactive AUGMENTIN 875-125 MG ORAL TABLET 1 po BID x 10 days AUGMENTIN 875-125 MG ORAL TABLET 998401 AMOXICILLIN-POT CLAVULANATE Inactive AUGMENTIN 875-125 MG ORAL TABLET Take one tablet twice a day with food 04/25 AUGMENTIN 875-125 MG ORAL TABLET 639759 AMOXICILLIN-POT CLAVULANATE Inactive DOXYCYCLINE HYCLATE 100 MG ORAL CAPSULE 1 cap by mouth twice daily DOXYCYCLINE HYCLATE 100 MG ORAL CAPSULE 8672789 DOXYCYCLINE HYCLATE Inactive Vital Signs Date Name [...] Measured Encounters Code Encounter Date Provider Facility CPT-05524 Level 3 Est. Patient 22:53:06 SUPERVISOR GRAPHITE Marta Viramontes [facility]-36640 Level 3 Est. Patient 16:07:34 CDT Marta [facility] CPT-75145 Level 3 Est. Patient 15:39:01 CD[facility] Level 4 Est. Patient 17:31:07 CDT Marta Viramontes [facility]-26814 Level 3 Est. Patient 05:11:40 CDT Rikki GRANADOS [facility]-39287 Level 2 Est. Patient 14:30:43 SUPERVISOR GRAPHITE Marta Viramontes [facility] CPT-37326 Level 4 Est. Patient 09:14:36 SUPERVISOR GRAPHITE Rikki GRANADOS [facility] CPT-89601 Level 2 Est. Patient 09:07:32 CDT Marta Caalluisblas [facility] CPT-11096 Level 4 Est. Patient 11:55:00 CDT Rikki GRANADOS [facility] CPT-96693 Level 3 Est. Patient 13:25:16 CDT Jennifer Chun MD PhD [facility]-24193 Level 3 Est. Patient 17:31:22 CDT Solomon Alamo MD [facility]-42350 Level 3 Est. Patient 08:02:14 CDT Solomon Alamo MD [facility]-15565 Level 3 Est. Patient 17:23:53 CDT Rikki Stearns [facility] CPT-88487 Level 3 Est. Patient 11:22:41 CDT Darryn Hearn [facility] Procedures Code Procedure Name Date Entry Date Standard Description CPT-11962 Venipuncture Draw Fee 16:09:39 CDT CPT-87207 Venipuncture Draw Fee 12:43:48 SUPERVISOR GRAPHITE CPT-28427 BMP - LAB USE ONLY 10:32:33 SUPERVISOR GRAPHITE CPT-17643 Venipuncture Draw Fee 10:32:33 SUPERVISOR GRAPHITE CPT-12866 Magnesium - LAB USE ONLY 09:54:30 CDT CPT-81649 TSH - LAB USE ONLY 09:54:30 CDT CPT-64437 Lipid - LAB USE ONLY 09:54:30 CDT CPT-98589 Venipuncture Draw Fee 09:54:29 CDT CPT-02986 Venipuncture Draw Fee 18:27:04 CDT CPT-18376 Chest 2V Frontal and Lat 10:57:00 SUPERVISOR GRAPHITE CPT-81520 Venipuncture Draw Fee 10:56:59 SUPERVISOR GRAPHITE CPT-00759 Venipuncture Draw Fee 09:22:28 SUPERVISOR GRAPHITE CPT-80106 Chest 2V Frontal and Lat 09:22:27 SUPERVISOR GRAPHITE CPT-I/D I/D Abscess 09:43:13 CDT CPT-78155 Venipuncture Draw Fee 08:16:46 SUPERVISOR GRAPHITE CPT-94751 Venipuncture Draw Fee 08:18:55 SUPERVISOR GRAPHITE CPT-28631 Venipuncture Draw Fee 08:31:18 SUPERVISOR GRAPHITE CPT-95815 Venipuncture Draw Fee 11:42:52 SUPERVISOR GRAPHITE CPT-62665 Venipuncture Draw Fee 13:26:37 SUPERVISOR GRAPHITE CPT-38827 Venipuncture Draw Fee 09:23:38 SUPERVISOR GRAPHITE CPT-000 Give Appropriate Tetanus Booster 10:23:50 CDT CPT-27295 Bone Density 08:28:45 CDT CPT-98724 Bone Density 11:35:15 CDT CPT-PV Prev. Care Visit 12:19:00 CDT CPT-75055 Venipuncture Draw Fee 15:02:58 CDT
--- OUTSIDE RECORDS SUMMARY | 2018-01-19 07:04 | XMS REPORT | Clinical Summary ---
Author Author Admin, E Organization [facility] Address Unknown Phone Unavailable Allergies, Adverse Reactions, Alerts Allergy Name Reaction Description Start Date Severity Status Provider SULFA facial swelling Critical Active Jocelyne Naff EXTENSION SERVICE SPECIALIST Conditions or Problems Problem Name Problem Code Onset Date Status Entry Date Provider Comment Standard Description Annotate G E R D 530.81 Active Jocelyne Naff EXTENSION SERVICE SPECIALIST Esophageal reflux FH COLON CANCER V16.0 Active Jocelyne Naff EXTENSION SERVICE SPECIALIST Family history of malignant neoplasm of [...] Ingrown toenail, left 703.0 Resolved Marta Yokum [employer] Ingrowing nail cellulitis, finger, right 681.00 Active Marta Yokum [employer] COUNSEL[employer] Cellulitis and abscess of finger, unspecified Cough 786.2 Active Marta Yokum [employer] COUNSEL[employer] Cough Breast microcalcification ICD-793.81 Inactive Jennifer Chun [...] Stearns DARWIN Ingrown toenail, left ICD-703.0 Inactive Marta Yokum [employer]SEL[employer] Medication List Medication Instructions Start Date Stop Date Generic Name NDC Status Provider Patient Instruction AUGMENTIN 875-125 MG TAB 1 po BID x 10 days AMOXICILLIN-POT CLAVULANATE 82070062091 No Longer Active Marta Yokum [employer] Active MEDROL (CAROLYN) 4 MG TABS 6 tabs on day 1, 5 tabs on day 2, 4 tabs on day 3, 3 tabs on day 4, 2 tabs on day 5, 1 tab on day 6 METHYLPREDNISOLONE 69925876032 No Longer Active Marta Yokum [employer] COUNSELOR Active TESSALON PERLES 100 MG CAP 1 to 2 tablets by mouth 3 times daily as needed for cough BENZONATATE 48503004968 Active Marta Yokum [employer] TRAV[employer] COUNSELOR Active TUSSIONEX PENNKINETIC ER 10-8 MG/5ML LQCR 5ml po q12hr PRN Cough HYDROCOD POLST-CHLORPHEN POLST 43282267174 Active Marta Yokum [employer] TRAV[employer] COUNSELOR Active KEFLEX 500 MG CAP 1 po qid CEPHALEXIN 02101215208 No Longer Active Marta Yokum [employer] TRAVEL COUNSELOR Active B COMPLEX 50 ORAL CR-TABS B COMPLEX VITAMINS 86976855852 Active Marta Viramontes [employer] TRAVEL COUNSELOR Active TUSSIONEX PENNKINETIC ER 10-8 MG/5ML LQCR 5ml po q12hr PRN Cough HYDROCOD POLST-CHLORPHEN POLST 47768500253 No Longer Active Marta Viramontes [employer] TRAV[employer] COUNSELOR Active VITAMIN D3 14284 UNIT CAPS 1 qWeek x 4 months for vitamin D deficiency 04/09 CHOLECALCIFEROL 62390494483 Active Marta Yoluisum [employer] TRAV[employer] COUNSELOR Active CEPHALEXIN 500 MG ORAL CAPS Take one four times a day CEPHALEXIN 93435019831 No Longer Active Marta Yoluisum [employer] TRAVEL COUNSELOR Active BIOTIN 1000 MCG ORAL TABS Take one daily BIOTIN 99340114477 Active Rikki Harms PA Active VITAMIN C 500 MG ORAL CAPS Take one daily ASCORBIC ACID 57967404593 Active Rikki Harms PA Active BENZONATATE 200 MG ORAL CAPS One capsule tid. BENZONATATE 05520559966 No Longer Active Rikki Harms PA Active FLONASE ALLERGY RELIEF 50 MCG/ACT NASAL SUSP spray twice in each nostril one time daily FLUTICASONE PROPIONATE 88189597327 No Longer Active Rikki Harms PA Active TUSSIONEX PENNKINETIC ER 10-8 MG/5ML LQCR 5ml po q12hr PRN Cough HYDROCOD POLST-CHLORPHEN POLST 28656300024 No Longer Active Rikki Harms PA Active NIACIN ER 500 MG ORAL CR-TABS Take one twice daily NIACIN 74486984921 Active Rikki Harms PA Active ALBUTEROL SULFATE 0.083 % NEBU SOLN one vial per nebulizer every 4-6 hours as needed ALBUTEROL SULFATE 87638768282 No Longer Active Rikki Harms PA Active MEDROL (CAROLYN) 4 MG TABS 6 tabs on day 1, 5 tabs on day 2, 4 tabs on day 3, 3 tabs on day 4, 2 tabs on day 5, 1 tab on day 6 METHYLPREDNISOLONE 33895892366 No Longer Active Rikki Harms PA Active LEVAQUIN 750 MG TABS 1 po qd x 7 days LEVOFLOXACIN 17567487916 No Longer Active Rikki Harms PA Active LEVAQUIN 500 MG ORAL TABS Take one tablet daily LEVOFLOXACIN 11830133839 No Longer Active Rikki Harms PA Active PROAIR HFA 108 (90 BASE) MCG/ACT AERS 2 puffs four times a day as needed 2014 ALBUTEROL SULFATE 90332494395 Active Marta Yokum [employer] COUNSELOR Active LEVAQUIN 500 MG TAB 1 tablet by mouth daily LEVOFLOXACIN 30698095128 No Longer Active Marta Yokum [employer] COUNSELOR Active CHERATUSSIN AC 100-10 MG/5ML SYRP 1 tsp by mouth every 4 hours as needed for cough GUAIFENESIN-CODEINE 28941654449 No Longer Active Rikki Harms PA Active MUPIROCIN 2 % EXT OINT Use in each nostril in am and pm MUPIROCIN 78050139561 No Longer Active Rikki Harms PA Active DOXYCYCLINE HYCLATE 100 MG ORAL CAPS Take one bid DOXYCYCLINE HYCLATE 36665573427 No Longer Active Rikki Harms PA Active CLARITIN 10 MG TABS 1prn LORATADINE 47923532737 No Longer Active Jocelyne Naff EXTENSION SERVICE SPECIALIST Active ASPIRIN 81 MG TABS 1qd ASPIRIN 85419413859 No Longer Active Jocelyne Naff EXTENSION SERVICE SPECIALIST Active DOXYCYCLINE HYCLATE 100 MG CAP 1 cap by mouth twice daily DOXYCYCLINE HYCLATE 73810906278 No Longer Active Rikki Harms PA Active VITAMIN D3 22693 UNIT CAPS 1 pill by mouth weekly, for vitamin D deficiency CHOLECALCIFEROL 08331675415 No Longer Active Jennifer Chun MD PhD Active ANASTROZOLE 1 MG ORAL TABS Take one by mouth daily ANASTROZOLE 87361307335 Active Jennifer Chun MD PhD Active ZITHROMAX 250 MG TAB 2 po today, then 1 po q days 2-5 AZITHROMYCIN 44842751590 No Longer Active Rikki Harms PA Active MECLIZINE HCL 25 MG TABS 1 prn MECLIZINE HCL 19591209634 No Longer Active Solomon Alamo MD Active CHERATUSSIN AC SYRP prn as directed GUAIFENESIN- CODEINE SYRP 49320059351 No Longer Active Rikki Harms PA Active MULTIVITAMINS TABS 1qd MULTIPLE VITAMIN 48895046999 No Longer Active Rikki Harms PA Active OMEPRAZOLE 20 MG CPDR 1 PO Q D OMEPRAZOLE 84727004120 Active Jocelyne Naff EXTENSION SERVICE SPECIALIST Active ZITHROMAX Z-CAROLYN 250 MG TABS 2x1day,1a8zemt AZITHROMYCIN 38400823217 No Longer Active Jocelyne Naff EXTENSION SERVICE SPECIALIST Active MULTIVITAMINS TABS 1qd MULTIVITAMINS TABS MULTIPLE VITAMIN Inactive CHERATUSSIN AC SYRP prn as directed CHERATUSSIN AC SYRP GUAIFENESIN-CODEINE SYRP Inactive MECLIZINE HCL 25 MG TABS 1 prn MECLIZINE HCL 25 MG TABS 867754 MECLIZINE HCL Inactive ASPIRIN 81 MG TABS 1qd ASPIRIN 81 MG TABS ASPIRIN Inactive CLARITIN 10 MG TABS 1prn CLARITIN 10 MG TABS 859881 LORATADINE Inactive DOXYCYCLINE HYCLATE 100 MG ORAL CAPS Take one bid DOXYCYCLINE HYCLATE 100 MG ORAL CAPS 4943819 DOXYCYCLINE HYCLATE Inactive MUPIROCIN 2 % EXT OINT Use in each nostril in am and pm MUPIROCIN 2 % EXT OINT 506850 MUPIROCIN Inactive CHERATUSSIN AC 100-10 MG/5ML SYRP 1 tsp by mouth every 4 hours as needed for cough CHERATUSSIN AC 100-10 MG/5ML SYRP 739010 GUAIFENESIN-CODEINE Inactive LEVAQUIN 500 MG TAB 1 tablet by mouth daily LEVAQUIN 500 MG TAB 333507 LEVOFLOXACIN Inactive LEVAQUIN 500 MG ORAL TABS Take one tablet daily LEVAQUIN 500 MG ORAL TABS 665606 LEVOFLOXACIN Inactive LEVAQUIN 750 MG TABS 1 po qd x 7 days LEVAQUIN 750 MG TABS 484236 LEVOFLOXACIN Inactive ALBUTEROL SULFATE 0.083 % NEBU SOLN one vial per nebulizer every 4-6 hours as needed ALBUTEROL SULFATE 0.083 % NEBU SOLN 790642 ALBUTEROL SULFATE Inactive TUSSIONEX PENNKINETIC ER 10-8 MG/5ML LQCR 5ml po q12hr PRN Cough TUSSIONEX PENNKINETIC ER 10-8 MG/5ML LQCR HYDROCOD POLST- CHLORPHEN POLST Inactive FLONASE ALLERGY RELIEF 50 MCG/ACT NASAL SUSP spray twice in each nostril one time daily FLONASE ALLERGY RELIEF 50 MCG/ACT NASAL SUSP 7784186 FLUTICASONE PROPIONATE Inactive BENZONATATE 200 MG ORAL CAPS One capsule tid. BENZONATATE 200 MG ORAL CAPS 260734 BENZONATATE Inactive CEPHALEXIN 500 MG ORAL CAPS Take one four times a day CEPHALEXIN 500 MG ORAL CAPS 236266 CEPHALEXIN Inactive TUSSIONEX PENNKINETIC ER 10-8 MG/5ML LQCR 5ml po q12hr PRN Cough TUSSIONEX PENNKINETIC ER 10-8 MG/5ML LQCR HYDROCOD POLST- CHLORPHEN POLST Inactive ZITHROMAX Z-CAROLYN 250 MG TABS 2x1day,3n2leli ZITHROMAX Z-CAROLYN 250 MG TABS 4022860 AZITHROMYCIN Inactive ZITHROMAX 250 MG TAB 2 po today, then 1 po q days 2-5 ZITHROMAX 250 MG TAB 4920175 AZITHROMYCIN Inactive VITAMIN D3 52661 UNIT CAPS 1 pill by mouth weekly, for vitamin D deficiency VITAMIN D3 27488 UNIT CAPS CHOLECALCIFEROL Inactive DOXYCYCLINE HYCLATE 100 MG CAP 1 cap by mouth twice daily DOXYCYCLINE HYCLATE 100 MG CAP 9096767 DOXYCYCLINE HYCLATE Inactive MEDROL (CAROLYN) 4 MG TABS 6 tabs on day 1, 5 tabs on day 2, 4 tabs on day 3, 3 tabs on day 4, 2 tabs on day 5, 1 tab on day 6 MEDROL ( CAROLYN) 4 MG TABS 911336 METHYLPREDNISOLONE Inactive KEFLEX 500 MG CAP 1 po qid KEFLEX 500 MG CAP 974452 CEPHALEXIN Inactive MEDROL (CAROLYN) 4 MG TABS 6 tabs on day 1, 5 tabs on day 2, 4 tabs on day 3, 3 tabs on day 4, 2 tabs on day 5, 1 tab on day 6 MEDROL ( CAROLYN) 4 MG TABS 528325 METHYLPREDNISOLONE Inactive AUGMENTIN 875-125 MG TAB 1 po BID x 10 days AUGMENTIN 875-125 MG TAB 882235 AMOXICILLIN-POT CLAVULANATE Inactive Vital Signs Date Name [...] temperature weight E&M 203.5 [lb_av] Weight Measured blood pressure, diastolic 55 mm[Hg] BP rivera blood pressure, systolic 121 mm[Hg] BP sys pulse rate E&M 76 /min Heart rate temperature E&M 98.6 [degF] Body temperature weight E&M 202.5 [lb_av] Weight Measured Diagnostic Results Date Name Value Unit Range Description Lab Report: Basic Metabolic Panel - Chemistry sodium, serum 142 mmol/L 460-168 7243/07/25 potassium, serum 4.0 mmol/L 3.5-5.2 chloride, serum 107 mmol/L 98-107 carbon dioxide, venous blood 31.6 mmol/L 21.0-32.0 blood glucose 108 mg/dL 65-110 calcium, serum 9.2 mg/dL 8.5-10.1 urea nitrogen, blood 20 mg/dL 7-18 creatinine, serum 0.92 mg/dL 0.55-1.30 sodium, serum 141 mmol/L 078-285 5438/11/11 potassium, serum 4.2 mmol/L 3.5-5.2 chloride, serum 106 mmol/L 98-107 carbon dioxide, venous blood 29.1 mmol/L 21.0-32.0 blood glucose 95 mg/dL 65-110 calcium, serum 8.6 mg/dL 8.5-10.1 urea nitrogen, blood 23 mg/dL 7-18 creatinine, serum 0.83 mg/dL 0.55-1.30 Lab Report: Lipid Panel, Thyroid Stimulating Hormone (L) - Chemistry cholesterol, serum 177 mg/dL 047-605 0507/10/31 triglyceride, serum, fasting 64 mg/dL 30-200 HDL cholesterol, serum 77 mg/dL 32-96 LDL cholesterol, serum 87 mg/dL 0-130 TSH 2.13 m[iU]/mL 0.36-3.74 Lab Report: VITAMIN D, 25-HYDROXY/49600 - Chemistry vitamin D 25-hydroxy, serum 25 ng/mL 30-100 Encounters Code Encounter Date Provider Facility CPT-72601 Level 3 Est. Patient 16:07:34 CDT Marta Viramontes [facility] CPT-76087 Level 3 Est. Patient 15:39:01 CDT Marta Viramontes [facility] CPT-48732 Level 4 Est. Patient 17:31:07 CDT Marta Viramontes [facility] CPT-23359 Level 3 Est. Patient 05:11:40 CDT Rikki GRANADOS [facility] CPT-83012 Level 2 Est. Patient 14:30:43 OVEN LABORER Marta Viramontes [facility] CPT-60691 Level 4 Est. Patient 09:14:36 OVEN LABORER Rikki GRANADOS [facility] [place] CPT-54731 Level 2 Est. Patient 09:07:32 CDT Marta Viramontes [facility] CPT-21459 Level 4 Est. Patient 11:55:00 CDT Rikki GRANADOS [facility] [place] CPT-73135 Level 3 Est. Patient 13:25:16 CDT Jennifer Chun MD [facility] CPT-78383 Level 3 Est. Patient 17:31:22 CDT Solomon Alamo MD [facility] CPT-56262 Level 3 Est. Patient 08:02:14 CDT Solomon Alamo MD [facility] CPT-20785 Level 3 Est. Patient 17:23:53 CDT Rikki GRANADOS [facility] [place] CPT-41247 Level 3 Est. Patient 11:22:41 CDT Darryn Hearn [facility] Procedures Code Procedure Name Date Entry Date Standard Description CPT-86881 Venipuncture Draw Fee 16:09:39 CDT CPT-99029 Venipuncture Draw Fee 12:43:48 OVEN LABORER CPT-31910 BMP - LAB USE ONLY 10:32:33 OVEN LABORER CPT-36939 Venipuncture Draw Fee 10:32:33 OVEN LABORER CPT-84224 Magnesium - LAB USE ONLY 09:54:30 CDT CPT-06502 TSH - LAB USE ONLY 09:54:30 CDT CPT-93958 Lipid - LAB USE ONLY 09:54:30 CDT CPT-97667 Venipuncture Draw Fee 09:54:29 CDT CPT-70135 Venipuncture Draw Fee 18:27:04 CDT CPT-44550 Chest 2V Frontal and Lat 10:57:00 OVEN LABORER CPT-48982 Venipuncture Draw Fee 10:56:59 OVEN LABORER CPT-77835 Venipuncture Draw Fee 09:22:28 OVEN LABORER CPT-09322 Chest 2V Frontal and Lat 09:22:27 OVEN LABORER CPT-I/D I/D Abscess 09:43:13 CDT CPT-17771 Venipuncture Draw Fee 08:16:46 OVEN LABORER CPT-45983 Venipuncture Draw Fee 08:18:55 OVEN LABORER CPT-23214 Venipuncture Draw Fee 08:31:18 OVEN LABORER CPT-88541 Venipuncture Draw Fee 11:42:52 OVEN LABORER CPT-09964 Venipuncture Draw Fee 13:26:37 OVEN LABORER CPT-06839 Venipuncture Draw Fee 09:23:38 OVEN LABORER CPT-000 Give Appropriate Tetanus Booster 10:23:50 CDT CPT-56860 Bone Density 08:28:45 CDT CPT-87433 Bone Density 11:35:15 CDT CPT-PV Prev. Care Visit 12:19:00 CDT CPT-99006 Venipuncture Draw Fee 15:02:58 CDT
--- OUTSIDE RECORDS SUMMARY | 2018-01-19 07:05 | XMS REPORT | Clinical Summary ---
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 BENZONATATE 12548475022 No Longer Active Rikki Harms PA Active FLONASE ALLERGY RELIEF 50 MCG/ACT NASAL SUSP spray twice in each nostril one time daily FLUTICASONE PROPIONATE 63096832559 No Longer Active Rikki Harms PA Active TUSSIONEX PENNKINETIC ER 10-8 MG/5ML LQCR 5ml po q12hr PRN Cough HYDROCOD POLST-CHLORPHEN POLST 79623322074 No Longer Active Rikki Harms PA Active NIACIN ER 500 MG ORAL CR-TABS Take one twice daily NIACIN 20213875919 Active Rikki Harms PA Active ALBUTEROL SULFATE 0.083 % JOSEE SOLBarbra one vial per nebulizer every 4-6 hours as needed ALBUTEROL SULFATE 03820697470 No Longer Active Rikki Harms PA Active CEPHALEXIN 500 MG ORAL CAPS Take one four times a day CEPHALEXIN 59754510872 Active Rikki Harms PA Active MEDROL (CAROLYN) 4 MG TABS 6 tabs on day 1, 5 tabs on day 2, 4 tabs on day 3, 3 tabs on day 4, 2 tabs on day 5, 1 tab on day 6 METHYLPREDNISOLONE 84265260133 No Longer Active Rikki Harms PA Active LEVAQUIN 750 MG TABS 1 po qd x 7 days LEVOFLOXACIN 72665541767 No Longer Active Rikki Harms PA Active LEVAQUIN 500 MG ORAL TABS Take one tablet daily LEVOFLOXACIN 84439097205 No Longer Active Rikki Harms PA Active PROAIR HFA 108 (90 BASE) MCG/ACT AERS 2 puffs four times a day as needed 2014 ALBUTEROL SULFATE 17876157005 Active Marta Yokum BEREAVEMENT COORDINATOR Active LEVAQUIN 500 MG TAB 1 tablet by mouth daily LEVOFLOXACIN 72097095707 No Longer Active Marta Yokum BEREAVEMENT COORDINATOR Active CHERATUSSIN AC 100-10 MG/5ML SYRP 1 tsp by mouth every 4 hours as needed for cough GUAIFENESIN-CODEINE 25003283106 No Longer Active Rikki Harms PA Active MUPIROCIN 2 % EXT OINT Use in each nostril in am and pm MUPIROCIN 38530365508 No Longer Active Rikki Harms PA Active DOXYCYCLINE HYCLATE 100 MG ORAL CAPS Take one bid DOXYCYCLINE HYCLATE 46270671363 No Longer Active Rikki Harms PA Active CLARITIN 10 MG TABS 1prn LORATADINE 79956218624 No Longer Active Jocelyne Naff ASPHALT PAVER OPERATOR Active ASPIRIN 81 MG TABS 1qd ASPIRIN 00230495977 No Longer Active Jocelyne Naff ASPHALT PAVER OPERATOR Active DOXYCYCLINE HYCLATE 100 MG CAP 1 cap by mouth twice daily DOXYCYCLINE HYCLATE 46931265206 No Longer Active Rikki Harms PA Active VITAMIN D3 47607 UNIT CAPS 1 pill by mouth weekly, for vitamin D deficiency CHOLECALCIFEROL 21025779047 No Longer Active Jennifer Chun MD PhD Active ANASTROZOLE 1 MG ORAL TABS Take one by mouth daily ANASTROZOLE 61995360299 Active Jennifer Chun MD PhD Active ZITHROMAX 250 MG TAB 2 po today, then 1 po q days 2-5 AZITHROMYCIN 19302728929 No Longer Active Rikki Harms PA Active MECLIZINE HCL 25 MG TABS 1 prn MECLIZINE HCL 15630772303 No Longer Active Solomon Alamo MD Active CHERATUSSIN AC SYRP prn as directed GUAIFENESIN- CODEINE SYRP 79865889500 No Longer Active Rikki Harms PA Active MULTIVITAMINS TABS 1qd MULTIPLE VITAMIN 17377453427 No Longer Active Rikki Harms PA Active OMEPRAZOLE 20 MG CPDR 1 PO Q D OMEPRAZOLE 99335643870 Active Rikki Harms PA Active ZITHROMAX Z-CAROLYN 250 MG TABS 2x1day,7w3ahmf AZITHROMYCIN 61649569535 No Longer Active Jocelyne Lovell ASPHALT PAVER OPERATOR Active MULTIVITAMINS TABS 1qd MULTIVITAMINS TABS MULTIPLE VITAMIN Inactive CHERATUSSIN AC SYRP prn as directed CHERATUSSIN AC SYRP GUAIFENESIN-CODEINE SYRP Inactive MECLIZINE HCL 25 MG TABS 1 prn MECLIZINE HCL 25 MG TABS 876111 MECLIZINE HCL Inactive ASPIRIN 81 MG TABS 1qd ASPIRIN 81 MG TABS ASPIRIN Inactive CLARITIN 10 MG TABS 1prn CLARITIN 10 MG TABS 115006 LORATADINE Inactive DOXYCYCLINE HYCLATE 100 MG ORAL CAPS Take one bid DOXYCYCLINE HYCLATE 100 MG ORAL CAPS 3633325 DOXYCYCLINE HYCLATE Inactive MUPIROCIN 2 % EXT OINT Use in each nostril in am and pm MUPIROCIN 2 % EXT OINT 731157 MUPIROCIN Inactive CHERATUSSIN AC 100-10 MG/5ML SYRP 1 tsp by mouth every 4 hours as needed for cough CHERATUSSIN AC 100-10 MG/5ML SYRP 842260 GUAIFENESIN-CODEINE Inactive LEVAQUIN 500 MG TAB 1 tablet by mouth daily LEVAQUIN 500 MG TAB 812739 LEVOFLOXACIN Inactive LEVAQUIN 500 MG ORAL TABS Take one tablet daily LEVAQUIN 500 MG ORAL TABS 727234 LEVOFLOXACIN Inactive LEVAQUIN 750 MG TABS 1 po qd x 7 days LEVAQUIN 750 MG TABS 575784 LEVOFLOXACIN Inactive ALBUTEROL SULFATE 0.083 % NEBU SOLN one vial per nebulizer every 4-6 hours as needed ALBUTEROL SULFATE 0.083 % NEBU SOLN 310659 ALBUTEROL SULFATE Inactive TUSSIONEX PENNKINETIC ER 10-8 MG/5ML LQCR 5ml po q12hr PRN Cough TUSSIONEX PENNKINETIC ER 10-8 MG/5ML LQCR HYDROCOD POLST- CHLORPHEN POLST Inactive FLONASE ALLERGY RELIEF 50 MCG/ACT NASAL SUSP spray twice in each nostril one time daily FLONASE ALLERGY RELIEF 50 MCG/ACT NASAL SUSP 003157 FLUTICASONE PROPIONATE Inactive BENZONATATE 200 MG ORAL CAPS One capsule tid. BENZONATATE 200 MG ORAL CAPS 552360 BENZONATATE Inactive ZITHROMAX Z-CAROLYN 250 MG TABS 2x1day,9l9btuz ZITHROMAX Z-CAROLYN 250 MG TABS 0881606 AZITHROMYCIN Inactive ZITHROMAX 250 MG TAB 2 po today, then 1 po q days 2-5 ZITHROMAX 250 MG TAB 5801228 AZITHROMYCIN Inactive VITAMIN D3 51131 UNIT CAPS 1 pill by mouth weekly, for vitamin D deficiency VITAMIN D3 29342 UNIT CAPS CHOLECALCIFEROL Inactive DOXYCYCLINE HYCLATE 100 MG CAP 1 cap by mouth twice daily DOXYCYCLINE HYCLATE 100 MG CAP 3809037 DOXYCYCLINE HYCLATE Inactive MEDROL (CAROLYN) 4 MG TABS 6 tabs on day 1, 5 tabs on day 2, 4 tabs on day 3, 3 tabs on day 4, 2 tabs on day 5, 1 tab on day 6 MEDROL ( CAROLYN) 4 MG TABS 146449 METHYLPREDNISOLONE Inactive Vital Signs Date Name Value [...] Panel - Chemistry sodium, serum 142 mmol/L 171-911 4249/07/25 potassium, serum 4.0 mmol/L 3.5-5.2 chloride, serum [...] % 11.6-14.8 platelet count 269 10^3/MM^3 10*3/mm3 617-924 8505/12/16 leukocyte count, blood 3.2 10^3/MM^3 10*3/mm3 4.6-10.2 [...] % 11.6-14.8 platelet count 158 10^3/MM^3 10*3/mm3 331-087 0809/12/18 leukocyte count, blood 8.8 10^3/MM^3 10*3/mm3 4.6-10.2 [...] % 11.6-14.8 platelet count 207 10^3/MM^3 10*3/mm3 443-466 5970/12/23 leukocyte count, blood 6.2 10^3/MM^3 10*3/mm3 4.6-10.2 [...] % 11.6-14.8 platelet count 183 10^3/MM^3 10*3/mm3 811-572 6589/12/30 leukocyte count, blood 5.2 10^3/MM^3 10*3/mm3 4.6-10.2 [...] % 11.6-14.8 platelet count 200 10^3/MM^3 10*3/mm3 348-032 7275/11/11 leukocyte count, blood 2.0 10^3/MM^3 10*3/mm3 4.6-10.2 [...] % 11.6-14.8 platelet count 203 10^3/MM^3 10*3/mm3 937-559 4499/11/18 leukocyte count, blood 8.5 10^3/MM^3 10*3/mm3 4.6-10.2 [...] % 11.6-14.8 platelet count 143 10^3/MM^3 10*3/mm3 078-922 4690/11/25 leukocyte count, blood 2.1 10^3/MM^3 10*3/mm3 4.6-10.2 [...] % 11.6-14.8 platelet count 139 10^3/MM^3 10*3/mm3 676-025 5249/12/02 leukocyte count, blood 6.7 10^3/MM^3 10*3/mm3 4.6-10.2 [...] % 11.6-14.8 platelet count 258 10^3/MM^3 10*3/mm3 395-838 5162/12/09 leukocyte count, blood 5.3 10^3/MM^3 10*3/mm3 4.6-10.2 [...] Panel - Chemistry sodium, serum 138 mmol/L 928-594 3242/11/04 carbon dioxide, venous blood 27.7 mmol/L 21.0-32.0 potassium, serum 4.9 mmol/L 3.5-5.2 chloride, serum 104 mmol/L 98-107 blood glucose 92 mg/dL 65-110 urea nitrogen, blood 24 mg/dL 7-18 creatinine, serum 0.95 mg/dL 0.55-1.30 alanine aminotransferase (SGPT), serum 34 U/L 12-78 aspartate aminotransferase (SGOT), serum 23 U/L 15-37 calcium, serum 8.9 mg/dL 8.5-10.1 bilirubin, serum, total 0.70 mg/dL 0.00-1.00 sodium, serum 140 mmol/L 419-171 5603/01/06 carbon dioxide, venous blood 27.2 mmol/L 21.0-32.0 potassium, serum 4.1 mmol/L 3.5-5.2 chloride, serum 105 mmol/L 98-107 blood glucose 70 mg/dL 65-110 urea nitrogen, blood 25 mg/dL 7-18 creatinine, serum 0.90 mg/dL 0.55-1.30 alanine aminotransferase (SGPT), serum 28 U/L -78 aspartate aminotransferase (SGOT), serum 20 U/L 15-37 calcium, serum 8.9 mg/dL 8.5-10.1 bilirubin, serum, total 0.40 mg/dL 0.00-1.00 sodium, serum 140 mmol/L 228-747 8068/01/13 carbon dioxide, venous blood 26.4 mmol/L 21.0-32.0 potassium, serum 4.2 mmol/L 3.5-5.2 chloride, serum 104 mmol/L 98-107 blood glucose 101 mg/dL 65-110 urea nitrogen, blood 18 mg/dL 7-18 creatinine, serum 0.80 mg/dL 0.55-1.30 alanine aminotransferase (SGPT), serum 28 U/L 12-78 aspartate aminotransferase (SGOT), serum 24 U/L 15-37 calcium, serum 8.7 mg/dL 8.5-10.1 bilirubin, serum, total 0.50 mg/dL 0.00-1.00 sodium, serum 142 mmol/L 073-446 3912/02/04 carbon dioxide, venous blood 24.9 mmol/L 21.0-32.0 [...] % 11.6-14.8 platelet count 297 10^3/MM^3 10*3/mm3 807-500 5575/02/04 leukocyte count, blood 4.2 10^3/MM^3 10*3/mm3 4.6-10.2 [...] % 11.6-14.8 platelet count 271 10^3/MM^3 10*3/mm3 598-098 6733/01/13 leukocyte count, blood 5.2 10^3/MM^3 10*3/mm3 4.6-10.2 [...] % 11.6-14.8 platelet count 289 10^3/MM^3 10*3/mm3 252-370 5947/11/04 leukocyte count, blood 3.8 10^3/MM^3 10*3/mm3 4.6-10.2 [...] Panel - Chemistry sodium, serum 141 mmol/L 853-110 3012/11/11 carbon dioxide, venous blood 26.8 mmol/L 21.0-32.0 potassium, serum 4.2 mmol/L 3.5-5.2 chloride, serum 106 mmol/L 98-107 blood glucose 95 mg/dL 65-110 urea nitrogen, blood 18 mg/dL 7-18 creatinine, serum 0.70 mg/dL 0.55-1.30 alanine aminotransferase (SGPT), serum 33 U/L 12-78 aspartate aminotransferase (SGOT), serum 22 U/L 15-37 calcium, serum 8.5 mg/dL 8.5-10.1 bilirubin, serum, total 0.30 mg/dL 0.00-1.00 sodium, serum 141 mmol/L 531-312 9039/11/18 carbon dioxide, venous blood 26.2 mmol/L 21.0-32.0 potassium, serum 4.4 mmol/L 3.5-5.2 chloride, serum 106 mmol/L 98-107 blood glucose 102 mg/dL 65-110 urea nitrogen, blood 24 mg/dL 7-18 creatinine, serum 0.77 mg/dL 0.55-1.30 alanine aminotransferase (SGPT), serum 30 U/L 12-78 aspartate aminotransferase (SGOT), serum 15 U/L 15-37 calcium, serum 8.3 mg/dL 8.5-10.1 bilirubin, serum, total 0.30 mg/dL 0.00-1.00 sodium, serum 139 mmol/L 545-089 4233/11/25 carbon dioxide, venous blood 27.9 mmol/L 21.0-32.0 potassium, serum 4.7 mmol/L 3.5-5.2 chloride, serum 105 mmol/L 98-107 blood glucose 94 mg/dL 65-110 urea nitrogen, blood 21 mg/dL 7-18 creatinine, serum 0.79 mg/dL 0.55-1.30 alanine aminotransferase (SGPT), serum 40 U/L 12-78 aspartate aminotransferase (SGOT), serum 22 U/L 15-37 calcium, serum 8.5 mg/dL 8.5-10.1 bilirubin, serum, total 0.80 mg/dL 0.00-1.00 sodium, serum 142 mmol/L 702-280 6675/12/09 carbon dioxide, venous blood 28.5 mmol/L 21.0-32.0 potassium, serum 5.0 mmol/L 3.5-5.2 chloride, serum 109 mmol/L 98-107 blood glucose 91 mg/dL 65-110 urea nitrogen, blood 27 mg/dL 7-18 creatinine, serum 0.88 mg/dL 0.55-1.30 alanine aminotransferase (SGPT), serum 31 U/L aspartate aminotransferase (SGOT), serum 18 U/L - calcium, serum 8.9 mg/dL 8.5-10.1 bilirubin, serum, total 0.40 mg/dL 0.00-1.00 sodium, serum 140 mmol/L 103-059 9845/12/16 carbon dioxide, venous blood 25.4 mmol/L 21.0-32.0 potassium, serum 4.1 mmol/L 3.5-5.2 chloride, serum 104 mmol/L 98-107 blood glucose 110 mg/dL 65-110 urea nitrogen, blood 24 mg/dL 7-18 creatinine, serum 0.87 mg/dL 0.55-1.30 alanine aminotransferase (SGPT), serum 35 U/L aspartate aminotransferase (SGOT), serum 21 U/L 15-37 calcium, serum 8.4 mg/dL 8.5-10.1 bilirubin, serum, total 0.50 mg/dL 0.00-1.00 sodium, serum 141 mmol/L 423-368 9408/12/02 carbon dioxide, venous blood 25.9 mmol/L 21.0-32.0 potassium, serum 4.7 mmol/L 3.5-5.2 chloride, serum 106 mmol/L 98-107 blood glucose 78 mg/dL 65-110 urea nitrogen, blood 24 mg/dL 7-18 creatinine, serum 0.75 mg/dL 0.55-1.30 alanine aminotransferase (SGPT), serum 31 U/L aspartate aminotransferase (SGOT), serum 20 U/L 15-37 calcium, serum 8.7 mg/dL 8.5-10.1 bilirubin, serum, total 0.30 mg/dL 0.00-1.00 sodium, serum 139 mmol/L 067-540 3025/12/30 carbon dioxide, venous blood 28.2 mmol/L 21.0-32.0 potassium, serum 3.9 mmol/L 3.5-5.2 chloride, serum 105 mmol/L 98-107 blood glucose 91 mg/dL 65-110 urea nitrogen, blood 17 mg/dL 7-18 creatinine, serum 0.81 mg/dL 0.55-1.30 alanine aminotransferase (SGPT), serum 29 U/L aspartate aminotransferase (SGOT), serum 22 U/L 15-37 calcium, serum 8.8 mg/dL 8.5-10.1 bilirubin, serum, total 0.50 mg/dL 0.00-1.00 sodium, serum 143 mmol/L 289-207 6084/12/23 carbon dioxide, venous blood 24.6 mmol/L 21.0-32.0 potassium, serum 4.1 mmol/L 3.5-5.2 chloride, serum 107 mmol/L 98-107 blood glucose 98 mg/dL 65-110 urea nitrogen, blood 22 mg/dL 7-18 creatinine, serum 0.77 mg/dL 0.55-1.30 alanine aminotransferase (SGPT), serum 28 U/L 12-78 aspartate aminotransferase (SGOT), serum 20 U/L 15-37 calcium, serum 8.6 mg/dL 8.5-10.1 bilirubin, serum, total 0.30 mg/dL 0.00-1.00 Encounters Code Encounter Date Provider Facility CPT-00642 Level 3 Est. Patient 05:11:40 CDT iRkki GRANADOS [facility] CPT-44468 Level 2 Est. Patient 14:30:43 LOOM OVERHAULER Marta Viramontes [facility] CPT-49538 Level 4 Est. Patient 09:14:36 LOOM OVERHAULER Rikki GRANADOS [facility] CPT-93638 Level 2 Est. Patient 09:07:32 CDT Marta Viramontes [facility] CPT-36476 Level 4 Est. Patient 11:55:00 CDT Rikki GRANADOS [facility] CPT-07336 Level 3 Est. Patient 13:25:16 CDT Jennifer Chun MD, PhD [facility] CPT-47266 Level 3 Est. Patient 17:31:22 CDT Solomon Alamo MD [facility] CPT-19218 Level 3 Est. Patient 08:02:14 CDT Solomon Alamo MD [facility] CPT-58369 Level 3 Est. Patient 17:23:53 CDT Rikki GRANADOS [facility] CPT-46868 Level 3 Est. Patient 11:22:41 CDT Darryn Hearn [facility] Procedures Code Procedure Name Date Entry Date Standard Description CPT-85237 Venipuncture Draw Fee 18:27:04 CDT CPT-17684 Chest 2V Frontal and Lat 10:57:00 LOOM OVERHAULER CPT-76433 Venipuncture Draw Fee 10:56:59 LOOM OVERHAULER CPT-98117 Venipuncture Draw Fee 09:22:28 LOOM OVERHAULER CPT-63401 Chest 2V Frontal and Lat 09:22:27 LOOM OVERHAULER CPT-I/D I/D Abscess 09:43:13 CDT CPT-95012 Venipuncture Draw Fee 08:16:46 LOOM OVERHAULER CPT-29129 Venipuncture Draw Fee 08:18:55 LOOM OVERHAULER CPT-40366 Venipuncture Draw Fee 08:31:18 LOOM OVERHAULER CPT-51057 Venipuncture Draw Fee 11:42:52 LOOM OVERHAULER CPT-73611 Venipuncture Draw Fee 13:26:37 LOOM OVERHAULER CPT-60563 Venipuncture Draw Fee 09:23:38 LOOM OVERHAULER CPT-000 Give Appropriate Tetanus Booster 10:23:50 CDT CPT-43311 Bone Density 08:28:45 CDT CPT-25820 Bone Density 11:35:15 CDT CPT-PV Prev. Care Visit 12:19:00 CDT CPT-12023 Venipuncture Draw Fee 15:02:58 CDT
--- OUTSIDE RECORDS SUMMARY | 2018-01-19 07:05 | XMS REPORT | Clinical Summary ---
Author Author Admin, E Organization [facility] Address Unknown Phone Unavailable Allergies, Adverse Reactions, Alerts Allergy Name Reaction Description Start Date Severity Status Provider SULFA facial swelling Critical Active Jocelyne Naff FRAME BUILDER Conditions or Problems Problem Name Problem Code Onset Date Status Entry Date Provider Comment Standard Description Annotate G E R D 530.81 Active Jocelyne Naff FRAME BUILDER Esophageal reflux FH COLON CANCER V16.0 Active Jocelyne Naff FRAME BUILDER Family history of malignant neoplasm of gastrointestinal [...] unspecified sites Rash 782.1 Active Marta Viramontes MACHINE WHITENER Rash and other nonspecific skin eruption Adenocarcinoma, [...] 5, 1 tab on day 6 METHYLPREDNISOLONE 93826584526 No Longer Active Rikki GRANADOS Active ALBUTEROL SULFATE 0.083 % NEBU SOLN one vial per nebulizer every 4-6 hours as needed ALBUTEROL SULFATE 97609010404 Active Rikki Harms PA Active LEVAQUIN 750 MG TABS 1 po qd x 7 days LEVOFLOXACIN 98141063458 No Longer Active Rikki Harms PA Active LEVAQUIN 500 MG ORAL TABS Take one tablet daily LEVOFLOXACIN 32693174177 No Longer Active Rikki Harms PA Active PROAIR HFA 108 (90 BASE) MCG/ACT AERS 2 puffs four times a day as needed 2014 ALBUTEROL SULFATE 05503315832 Active Marta Yokum MACHINE WHITENER Active TUSSIONEX PENNKINETIC ER 10-8 MG/5ML LQCR 5ml po q12hr PRN Cough HYDROCOD POLST-CHLORPHEN POLST 38066941373 Active Rikki Harms PA Active FLONASE ALLERGY RELIEF 50 MCG/ACT NASAL SUSP spray twice in each nostril one time daily FLUTICASONE PROPIONATE 98282906182 Active Marta Yokum MACHINE WHITENER Active LEVAQUIN 500 MG TAB 1 tablet by mouth daily LEVOFLOXACIN 27896914633 No Longer Active Marta Yokum MACHINE WHITENER Active BENZONATATE 200 MG ORAL CAPS One capsule tid. BENZONATATE 10233313489 Active Marta Yokum MACHINE WHITENER Active CHERATUSSIN AC 100-10 MG/5ML SYRP 1 tsp by mouth every 4 hours as needed for cough GUAIFENESIN-CODEINE 68793185461 No Longer Active Rikki Harms PA Active MUPIROCIN 2 % EXT OINT Use in each nostril in am and pm MUPIROCIN 55770858996 No Longer Active Rikki Harms PA Active DOXYCYCLINE HYCLATE 100 MG ORAL CAPS Take one bid DOXYCYCLINE HYCLATE 53285020872 No Longer Active Rikki Harms PA Active CLARITIN 10 MG TABS 1prn LORATADINE 83508000121 No Longer Active Jocelyne Naff FRAME BUILDER Active ASPIRIN 81 MG TABS 1qd ASPIRIN 90765881487 No Longer Active Jocelyne Naff FRAME BUILDER Active DOXYCYCLINE HYCLATE 100 MG CAP 1 cap by mouth twice daily DOXYCYCLINE HYCLATE 82880160346 No Longer Active Rikki Harms PA Active VITAMIN D3 89556 UNIT CAPS 1 pill by mouth weekly, for vitamin D deficiency CHOLECALCIFEROL 77326926000 No Longer Active Jennifer Chun MD PhD Active ANASTROZOLE 1 MG ORAL TABS Take one by mouth daily ANASTROZOLE 46484549056 Active Jennifer Chun MD PhD Active ZITHROMAX 250 MG TAB 2 po today, then 1 po q days 2-5 AZITHROMYCIN 16695095793 No Longer Active Rikki Harms PA Active MECLIZINE HCL 25 MG TABS 1 prn MECLIZINE HCL 30644342795 No Longer Active Solomon Alamo MD Active CHERATUSSIN AC SYRP prn as directed GUAIFENESIN- CODEINE SYRP 81970901267 No Longer Active Rikki Harms PA Active MULTIVITAMINS TABS 1qd MULTIPLE VITAMIN 96352657508 No Longer Active Rikki Harms PA Active OMEPRAZOLE 20 MG CPDR 1 PO Q D OMEPRAZOLE 59008257111 Active Rikki Harms PA Active ZITHROMAX Z-CAROLYN 250 MG TABS 2x1day,6h9okev AZITHROMYCIN 07503240029 No Longer Active Jocelyne Naff FRAME BUILDER Active MULTIVITAMINS TABS 1qd MULTIVITAMINS TABS MULTIPLE VITAMIN Inactive CHERATUSSIN AC SYRP prn as directed CHERATUSSIN AC SYRP GUAIFENESIN-CODEINE SYRP Inactive MECLIZINE HCL 25 MG TABS 1 prn MECLIZINE HCL 25 MG TABS 406141 MECLIZINE HCL Inactive ASPIRIN 81 MG TABS 1qd ASPIRIN 81 MG TABS 736358 ASPIRIN Inactive CLARITIN 10 MG TABS 1prn CLARITIN 10 MG TABS 213610 LORATADINE Inactive DOXYCYCLINE HYCLATE 100 MG ORAL CAPS Take one bid DOXYCYCLINE HYCLATE 100 MG ORAL CAPS 5894047 DOXYCYCLINE HYCLATE Inactive MUPIROCIN 2 % EXT OINT Use in each nostril in am and pm MUPIROCIN 2 % EXT OINT 967079 MUPIROCIN Inactive CHERATUSSIN AC 100-10 MG/5ML SYRP 1 tsp by mouth every 4 hours as needed for cough CHERATUSSIN AC 100-10 MG/5ML SYRP 196366 GUAIFENESIN-CODEINE Inactive LEVAQUIN 500 MG TAB 1 tablet by mouth daily LEVAQUIN 500 MG TAB 073763 LEVOFLOXACIN Inactive LEVAQUIN 500 MG ORAL TABS Take one tablet daily LEVAQUIN 500 MG ORAL TABS 271773 LEVOFLOXACIN Inactive LEVAQUIN 750 MG TABS 1 po qd x 7 days LEVAQUIN 750 MG TABS 950830 LEVOFLOXACIN Inactive ZITHROMAX Z-CAROLYN 250 MG TABS 2x1day,7c1ljsf ZITHROMAX Z-CAROLYN 250 MG TABS 5515559 AZITHROMYCIN Inactive ZITHROMAX 250 MG TAB 2 po today, then 1 po q days 2-5 ZITHROMAX 250 MG TAB 8311568 AZITHROMYCIN Inactive VITAMIN D3 22898 UNIT CAPS 1 pill by mouth weekly, for vitamin D deficiency VITAMIN D3 01165 UNIT CAPS CHOLECALCIFEROL Inactive DOXYCYCLINE HYCLATE 100 MG CAP 1 cap by mouth twice daily DOXYCYCLINE HYCLATE 100 MG CAP 1696087 DOXYCYCLINE HYCLATE Inactive MEDROL (CAROLYN) 4 MG [...] % 11.6-14.8 platelet count 143 10^3/MM^3 10*3/mm3 636-341 1211/11/25 leukocyte count, blood 2.1 10^3/MM^3 10*3/mm3 4.6-10.2 [...] % 11.6-14.8 platelet count 139 10^3/MM^3 10*3/mm3 085-594 4629/12/02 leukocyte count, blood 6.7 10^3/MM^3 10*3/mm3 4.6-10.2 [...] % 11.6-14.8 platelet count 258 10^3/MM^3 10*3/mm3 426-948 0825/12/09 leukocyte count, blood 5.3 10^3/MM^3 10*3/mm3 4.6-10.2 [...] % 11.6-14.8 platelet count 240 10^3/MM^3 10*3/mm3 375-348 3793/12/16 leukocyte count, blood 3.2 10^3/MM^3 10*3/mm3 4.6-10.2 [...] % 11.6-14.8 platelet count 158 10^3/MM^3 10*3/mm3 236-352 1196/12/18 leukocyte count, blood 8.8 10^3/MM^3 10*3/mm3 4.6-10.2 [...] % 11.6-14.8 platelet count 207 10^3/MM^3 10*3/mm3 069-781 1243/12/23 leukocyte count, blood 6.2 10^3/MM^3 10*3/mm3 4.6-10.2 [...] % 11.6-14.8 platelet count 183 10^3/MM^3 10*3/mm3 822-371 6698/11/11 leukocyte count, blood 2.0 10^3/MM^3 10*3/mm3 4.6-10.2 [...] % 11.6-14.8 platelet count 203 10^3/MM^3 10*3/mm3 860-688 4196/12/30 leukocyte count, blood 5.2 10^3/MM^3 10*3/mm3 4.6-10.2 [...] % 11.6-14.8 platelet count 200 10^3/MM^3 10*3/mm3 582-979 4660/03/02 leukocyte count, blood 5.1 10^3/MM^3 10*3/mm3 4.6-10.2 [...] Panel - Chemistry sodium, serum 142 mmol/L 798-521 3494/02/04 carbon dioxide, venous blood 24.9 mmol/L 21.0-32.0 potassium, serum 4.1 mmol/L 3.5-5.2 chloride, serum 106 mmol/L 98-107 blood glucose 103 mg/dL 65-110 urea nitrogen, blood 25 mg/dL 7-18 creatinine, serum 0.83 mg/dL 0.55-1.30 alanine aminotransferase (SGPT), serum 38 U/L 12-78 aspartate aminotransferase (SGOT), serum 26 U/L 15-37 calcium, serum 8.7 mg/dL 8.5-10.1 bilirubin, serum, total 0.30 mg/dL 0.00-1.00 sodium, serum 140 mmol/L 374-946 4850/01/13 carbon dioxide, venous blood 26.4 mmol/L 21.0-32.0 potassium, serum 4.2 mmol/L 3.5-5.2 chloride, serum 104 mmol/L 98-107 blood glucose 101 mg/dL 65-110 urea nitrogen, blood 18 mg/dL 7-18 creatinine, serum 0.80 mg/dL 0.55-1.30 alanine aminotransferase (SGPT), serum 28 U/L aspartate aminotransferase (SGOT), serum 24 U/L 15-37 calcium, serum 8.7 mg/dL 8.5-10.1 bilirubin, serum, total 0.50 mg/dL 0.00-1.00 sodium, serum 138 mmol/L 680-095 9037/11/04 carbon dioxide, venous blood 27.7 mmol/L 21.0-32.0 potassium, serum 4.9 mmol/L 3.5-5.2 chloride, serum 104 mmol/L 98-107 blood glucose 92 mg/dL 65-110 urea nitrogen, blood 24 mg/dL 7-18 creatinine, serum 0.95 mg/dL 0.55-1.30 alanine aminotransferase (SGPT), serum 34 U/L aspartate aminotransferase (SGOT), serum 23 U/L - calcium, serum 8.9 mg/dL 8.5-10.1 bilirubin, serum, total 0.70 mg/dL 0.00-1.00 sodium, serum 140 mmol/L 563-976 6900/01/06 carbon dioxide, venous blood 27.2 mmol/L 21.0-32.0 [...] % 11.6-14.8 platelet count 289 10^3/MM^3 10*3/mm3 232-938 1525/01/06 leukocyte count, blood 4.1 10^3/MM^3 10*3/mm3 4.6-10.2 [...] % 11.6-14.8 platelet count 297 10^3/MM^3 10*3/mm3 224-815 6029/02/04 leukocyte count, blood 4.2 10^3/MM^3 10*3/mm3 4.6-10.2 [...] % 11.6-14.8 platelet count 271 10^3/MM^3 10*3/mm3 919-579 1313/11/04 leukocyte count, blood 3.8 10^3/MM^3 10*3/mm3 4.6-10.2 [...] Panel - Chemistry sodium, serum 140 mmol/L 972-887 9261/07/13 potassium, serum 4.5 mmol/L 3.5-5.2 chloride, serum 106 mmol/L 98-107 carbon dioxide, venous blood 27.7 mmol/L 21.0-32.0 blood glucose 105 mg/dL 65-110 urea nitrogen, blood 14 mg/dL 7-18 creatinine, serum 0.90 mg/dL 0.60-1.30 alanine aminotransferase (SGPT), serum 29 U/L 12-78 aspartate aminotransferase (SGOT), serum 22 U/L 15-37 calcium, serum 9.4 mg/dL 8.5-10.1 bilirubin, serum, total 0.70 mg/dL 0.00-1.00 cholesterol, serum 160 mg/dL 408-230 6223/07/13 triglyceride, serum, fasting 63 mg/dL 30-200 HDL [...] Panel - Chemistry sodium, serum 141 mmol/L 943-908 0785/11/18 carbon dioxide, venous blood 26.2 mmol/L 21.0-32.0 potassium, serum 4.4 mmol/L 3.5-5.2 chloride, serum 106 mmol/L 98-107 blood glucose 102 mg/dL 65-110 urea nitrogen, blood 24 mg/dL 7-18 creatinine, serum 0.77 mg/dL 0.55-1.30 alanine aminotransferase (SGPT), serum 30 U/L 12-78 aspartate aminotransferase (SGOT), serum 15 U/L 15-37 calcium, serum 8.3 mg/dL 8.5-10.1 bilirubin, serum, total 0.30 mg/dL 0.00-1.00 sodium, serum 139 mmol/L 838-473 6122/11/25 carbon dioxide, venous blood 27.9 mmol/L 21.0-32.0 potassium, serum 4.7 mmol/L 3.5-5.2 chloride, serum 105 mmol/L 98-107 blood glucose 94 mg/dL 65-110 urea nitrogen, blood 21 mg/dL 7-18 creatinine, serum 0.79 mg/dL 0.55-1.30 alanine aminotransferase (SGPT), serum 40 U/L aspartate aminotransferase (SGOT), serum 22 U/L 15-37 calcium, serum 8.5 mg/dL 8.5-10.1 bilirubin, serum, total 0.80 mg/dL 0.00-1.00 sodium, serum 142 mmol/L 812-685 9353/12/09 carbon dioxide, venous blood 28.5 mmol/L 21.0-32.0 potassium, serum 5.0 mmol/L 3.5-5.2 chloride, serum 109 mmol/L 98-107 blood glucose 91 mg/dL 65-110 urea nitrogen, blood 27 mg/dL - creatinine, serum 0.88 mg/dL 0.55-1.30 alanine aminotransferase (SGPT), serum 31 U/L aspartate aminotransferase (SGOT), serum 18 U/L 15-37 calcium, serum 8.9 mg/dL 8.5-10.1 bilirubin, serum, total 0.40 mg/dL 0.00-1.00 sodium, serum 140 mmol/L 966-189 5121/12/16 carbon dioxide, venous blood 25.4 mmol/L 21.0-32.0 potassium, serum 4.1 mmol/L 3.5-5.2 chloride, serum 104 mmol/L 98-107 blood glucose 110 mg/dL 65-110 urea nitrogen, blood 24 mg/dL 7- creatinine, serum 0.87 mg/dL 0.55-1.30 alanine aminotransferase (SGPT), serum 35 U/L aspartate aminotransferase (SGOT), serum 21 U/L 15-37 calcium, serum 8.4 mg/dL 8.5-10.1 bilirubin, serum, total 0.50 mg/dL 0.00-1.00 sodium, serum 141 mmol/L 124-379 0874/12/02 carbon dioxide, venous blood 25.9 mmol/L 21.0-32.0 potassium, serum 4.7 mmol/L 3.5-5.2 chloride, serum 106 mmol/L 98-107 blood glucose 78 mg/dL 65-110 urea nitrogen, blood 24 mg/dL 7-18 creatinine, serum 0.75 mg/dL 0.55-1.30 alanine aminotransferase (SGPT), serum 31 U/L aspartate aminotransferase (SGOT), serum 20 U/L -37 calcium, serum 8.7 mg/dL 8.5-10.1 bilirubin, serum, total 0.30 mg/dL 0.00-1.00 sodium, serum 139 mmol/L 639-061 3930/12/30 carbon dioxide, venous blood 28.2 mmol/L 21.0-32.0 potassium, serum 3.9 mmol/L 3.5-5.2 chloride, serum 105 mmol/L 98-107 blood glucose 91 mg/dL 65-110 urea nitrogen, blood 17 mg/dL 7-18 creatinine, serum 0.81 mg/dL 0.55-1.30 alanine aminotransferase (SGPT), serum 29 U/L aspartate aminotransferase (SGOT), serum 22 U/L 15-37 calcium, serum 8.8 mg/dL 8.5-10.1 bilirubin, serum, total 0.50 mg/dL 0.00-1.00 sodium, serum 141 mmol/L 900-054 4303/11/11 carbon dioxide, venous blood 26.8 mmol/L 21.0-32.0 potassium, serum 4.2 mmol/L 3.5-5.2 chloride, serum 106 mmol/L 98-107 blood glucose 95 mg/dL 65-110 urea nitrogen, blood 18 mg/dL 7-18 creatinine, serum 0.70 mg/dL 0.55-1.30 alanine aminotransferase (SGPT), serum 33 U/L 12-78 aspartate aminotransferase (SGOT), serum 22 U/L 15-37 calcium, serum 8.5 mg/dL 8.5-10.1 bilirubin, serum, total 0.30 mg/dL 0.00-1.00 sodium, serum 143 mmol/L 444-709 7197/12/23 carbon dioxide, venous blood 24.6 mmol/L 21.0-32.0 potassium, serum 4.1 mmol/L 3.5-5.2 chloride, serum 107 mmol/L 98-107 blood glucose 98 mg/dL 65-110 urea nitrogen, blood 22 mg/dL 7-18 creatinine, serum 0.77 mg/dL 0.55-1.30 alanine aminotransferase (SGPT), serum 28 U/L -78 aspartate aminotransferase (SGOT), serum 20 U/L 15-37 calcium, serum 8.6 mg/dL 8.5-10.1 bilirubin, serum, total 0.30 mg/dL 0.00-1.00 Lab Report: VITAMIN D, 25-HYDROXY/98464 - Chemistry vitamin D 25-hydroxy, serum 24 ng/mL 30-100 Encounters Code Encounter Date Provider Facility CPT-97965 Level 2 Est. Patient 14:30:43 FLOOR LAYER HELPER Marta Viramontes [facility] CPT-06103 Level 4 Est. Patient 09:14:36 FLOOR LAYER HELPER Rikki GRANADOS [facility] CPT-47064 Level 2 Est. Patient 09:07:32 CDT Marta Viramontes MACHINE WHITENER [facility] CPT-33452 Level 4 Est. Patient 11:55:00 CDT Rikki GRANADOS [facility] CPT-09907 Level 3 Est. Patient 13:25:16 CDT Jennifer Chun MD PhD [facility] CPT-38369 Level 3 Est. Patient 17:31:22 CDT Solomon Alamo MD [facility] CPT-62215 Level 3 Est. Patient 08:02:14 CDT Solomon Alamo MD [facility] CPT-83448 Level 3 Est. Patient 17:23:53 CDT Rikki GRANADOS [facility] CPT-23127 Level 3 Est. Patient 11:22:41 CDT Darryn Hearn [facility] [place][note 2] Procedures Code Procedure Name Date Entry Date Standard Description CPT-25033 Chest 2V Frontal and Lat 10:57:00 FLOOR LAYER HELPER CPT-24632 Venipuncture Draw Fee 10:56:59 FLOOR LAYER HELPER CPT-49561 Venipuncture Draw Fee 09:22:28 FLOOR LAYER HELPER CPT-12194 Chest 2V Frontal and Lat 09:22:27 FLOOR LAYER HELPER CPT-I/D I/D Abscess 09:43:13 CDT CPT-34964 Venipuncture Draw Fee 08:16:46 FLOOR LAYER HELPER CPT-58535 Venipuncture Draw Fee 08:18:55 FLOOR LAYER HELPER CPT-26642 Venipuncture Draw Fee 08:31:18 FLOOR LAYER HELPER CPT-87770 Venipuncture Draw Fee 11:42:52 FLOOR LAYER HELPER CPT-21685 Venipuncture Draw Fee 13:26:37 FLOOR LAYER HELPER CPT-22837 Venipuncture Draw Fee 09:23:38 FLOOR LAYER HELPER CPT-000 Give Appropriate Tetanus Booster 10:23:50 CDT CPT-86748 Bone Density 08:28:45 CDT CPT-70096 Bone Density 11:35:15 CDT CPT-PV Prev. Care Visit 12:19:00 CDT CPT-42031 Venipuncture Draw Fee 15:02:58 CDT
[2018-01-19] MEDS ORDERED: proPOfol 200 MG/20 ML (DIPRIVAN) VIAL IV ONE (07:06)
[2018-01-19] MEDS ORDERED: LIDOCAINE PF 2% 5 ML (XYLOCAINE) VIAL ONE (07:06)
[2018-01-19] MEDS ORDERED: ONDANSETRON 4 MG/2 ML (SDV) Z0FRAN ONE (07:06)
[2018-01-19] MEDS ORDERED: SEVOFLURANE (ULTANE) 15 ML INHAL SOLN ONE ×5 (07:06→09:27)
[2018-01-19] MEDS ORDERED: DEXAMETHASONE 10 MG/ML (DECADRON) 1 ML VIAL ONE ×2 (07:06→09:25)
--- OUTSIDE RECORDS SUMMARY | 2018-01-19 07:06 | XMS REPORT | Clinical Summary ---
Author Author Admin, E Organization [facility] Address Unknown Phone Unavailable Allergies, Adverse Reactions, Alerts Allergy Name Reaction Description Start Date Severity Status Provider SULFA facial swelling Critical Active Jocelyne Naff LAMBSKIN TRIMMER Conditions or Problems Problem Name Problem Code Onset Date Status Entry Date Provider Comment Standard Description Annotate G E R D 530.81 Active Jocelyne Naff LAMBSKIN TRIMMER Esophageal reflux FH COLON CANCER V16.0 Active Jocelyne Naff LAMBSKIN TRIMMER Family history of malignant neoplasm of gastrointestinal [...] unspecified sites Rash 782.1 Active Marta Viramontes ANIMAL NUTRITIONIST Rash and other nonspecific skin eruption Adenocarcinoma, [...] 5, 1 tab on day 6 METHYLPREDNISOLONE 16561251383 No Longer Active Rikki GRANADOS Active ALBUTEROL SULFATE 0.083 % NEBU SOLN one vial per nebulizer every 4-6 hours as needed ALBUTEROL SULFATE 03586582193 Active Rikki Harms PA Active LEVAQUIN 750 MG TABS 1 po qd x 7 days LEVOFLOXACIN 43337377092 No Longer Active Rikki Harms PA Active LEVAQUIN 500 MG ORAL TABS Take one tablet daily LEVOFLOXACIN 86871485568 No Longer Active Rikki Harms PA Active PROAIR HFA 108 (90 BASE) MCG/ACT AERS 2 puffs four times a day as needed 2014 ALBUTEROL SULFATE 09106462863 Active Marta Yokum ANIMAL NUTRITIONIST Active TUSSIONEX PENNKINETIC ER 10-8 MG/5ML LQCR 5ml po q12hr PRN Cough HYDROCOD POLST-CHLORPHEN POLST 18735680427 Active Rikki Harms PA Active FLONASE ALLERGY RELIEF 50 MCG/ACT NASAL SUSP spray twice in each nostril one time daily FLUTICASONE PROPIONATE 28198412438 Active Marta Yokum ANIMAL NUTRITIONIST Active LEVAQUIN 500 MG TAB 1 tablet by mouth daily LEVOFLOXACIN 55131417010 No Longer Active Marta Yokum ANIMAL NUTRITIONIST Active BENZONATATE 200 MG ORAL CAPS One capsule tid. BENZONATATE 02678451797 Active Marta Yokum ANIMAL NUTRITIONIST Active CHERATUSSIN AC 100-10 MG/5ML SYRP 1 tsp by mouth every 4 hours as needed for cough GUAIFENESIN-CODEINE 87119142582 No Longer Active Rikki Harms PA Active MUPIROCIN 2 % EXT OINT Use in each nostril in am and pm MUPIROCIN 51332168877 No Longer Active Rikki Harms PA Active DOXYCYCLINE HYCLATE 100 MG ORAL CAPS Take one bid DOXYCYCLINE HYCLATE 22581298901 No Longer Active Rikki Harms PA Active CLARITIN 10 MG TABS 1prn LORATADINE 56243879649 No Longer Active Jocelyne Naff LAMBSKIN TRIMMER Active ASPIRIN 81 MG TABS 1qd ASPIRIN 43845379306 No Longer Active Jocelyne Naff LAMBSKIN TRIMMER Active DOXYCYCLINE HYCLATE 100 MG CAP 1 cap by mouth twice daily DOXYCYCLINE HYCLATE 56369625616 No Longer Active Rikki Harms PA Active VITAMIN D3 88423 UNIT CAPS 1 pill by mouth weekly, for vitamin D deficiency CHOLECALCIFEROL 40375572422 No Longer Active Jennifer Chun MD PhD Active ANASTROZOLE 1 MG ORAL TABS Take one by mouth daily ANASTROZOLE 38278557368 Active Jennifer Chun MD PhD Active ZITHROMAX 250 MG TAB 2 po today, then 1 po q days 2-5 AZITHROMYCIN 99255700133 No Longer Active Rikki Harms PA Active MECLIZINE HCL 25 MG TABS 1 prn MECLIZINE HCL 89166100474 No Longer Active Solomon Alamo MD Active CHERATUSSIN AC SYRP prn as directed GUAIFENESIN- CODEINE SYRP 09823342898 No Longer Active Rikki Harms PA Active MULTIVITAMINS TABS 1qd MULTIPLE VITAMIN 46996037090 No Longer Active Rikki Harms PA Active OMEPRAZOLE 20 MG CPDR 1 PO Q D OMEPRAZOLE 00673482153 Active Rikki Harms PA Active ZITHROMAX Z-CAROLYN 250 MG TABS 2x1day,9n1jlpy AZITHROMYCIN 39284049407 No Longer Active Jocelyne Naff LAMBSKIN TRIMMER Active MULTIVITAMINS TABS 1qd MULTIVITAMINS TABS MULTIPLE VITAMIN Inactive CHERATUSSIN AC SYRP prn as directed CHERATUSSIN AC SYRP GUAIFENESIN-CODEINE SYRP Inactive MECLIZINE HCL 25 MG TABS 1 prn MECLIZINE HCL 25 MG TABS 010954 MECLIZINE HCL Inactive ASPIRIN 81 MG TABS 1qd ASPIRIN 81 MG TABS 207613 ASPIRIN Inactive CLARITIN 10 MG TABS 1prn CLARITIN 10 MG TABS 243714 LORATADINE Inactive DOXYCYCLINE HYCLATE 100 MG ORAL CAPS Take one bid DOXYCYCLINE HYCLATE 100 MG ORAL CAPS 1069235 DOXYCYCLINE HYCLATE Inactive MUPIROCIN 2 % EXT OINT Use in each nostril in am and pm MUPIROCIN 2 % EXT OINT 278696 MUPIROCIN Inactive CHERATUSSIN AC 100-10 MG/5ML SYRP 1 tsp by mouth every 4 hours as needed for cough CHERATUSSIN AC 100-10 MG/5ML SYRP 397806 GUAIFENESIN-CODEINE Inactive LEVAQUIN 500 MG TAB 1 tablet by mouth daily LEVAQUIN 500 MG TAB 133593 LEVOFLOXACIN Inactive LEVAQUIN 500 MG ORAL TABS Take one tablet daily LEVAQUIN 500 MG ORAL TABS 182783 LEVOFLOXACIN Inactive LEVAQUIN 750 MG TABS 1 po qd x 7 days LEVAQUIN 750 MG TABS 142337 LEVOFLOXACIN Inactive ZITHROMAX Z-CAROLYN 250 MG TABS 2x1day,2f6qjbh ZITHROMAX Z-CAROLYN 250 MG TABS 2851025 AZITHROMYCIN Inactive ZITHROMAX 250 MG TAB 2 po today, then 1 po q days 2-5 ZITHROMAX 250 MG TAB 4012921 AZITHROMYCIN Inactive VITAMIN D3 22275 UNIT CAPS 1 pill by mouth weekly, for vitamin D deficiency VITAMIN D3 91473 UNIT CAPS CHOLECALCIFEROL Inactive DOXYCYCLINE HYCLATE 100 MG CAP 1 cap by mouth twice daily DOXYCYCLINE HYCLATE 100 MG CAP 4865409 DOXYCYCLINE HYCLATE Inactive MEDROL (CAROLYN) 4 MG [...] % 11.6-14.8 platelet count 143 10^3/MM^3 10*3/mm3 460-374 5573/11/25 leukocyte count, blood 2.1 10^3/MM^3 10*3/mm3 4.6-10.2 [...] % 11.6-14.8 platelet count 139 10^3/MM^3 10*3/mm3 795-750 9557/12/02 leukocyte count, blood 6.7 10^3/MM^3 10*3/mm3 4.6-10.2 [...] % 11.6-14.8 platelet count 258 10^3/MM^3 10*3/mm3 842-203 3694/12/09 leukocyte count, blood 5.3 10^3/MM^3 10*3/mm3 4.6-10.2 [...] % 11.6-14.8 platelet count 240 10^3/MM^3 10*3/mm3 602-411 0296/12/16 leukocyte count, blood 3.2 10^3/MM^3 10*3/mm3 4.6-10.2 [...] % 11.6-14.8 platelet count 158 10^3/MM^3 10*3/mm3 438-643 1606/12/18 leukocyte count, blood 8.8 10^3/MM^3 10*3/mm3 4.6-10.2 [...] % 11.6-14.8 platelet count 207 10^3/MM^3 10*3/mm3 100-090 6777/12/23 leukocyte count, blood 6.2 10^3/MM^3 10*3/mm3 4.6-10.2 [...] % 11.6-14.8 platelet count 183 10^3/MM^3 10*3/mm3 642-721 8084/11/11 leukocyte count, blood 2.0 10^3/MM^3 10*3/mm3 4.6-10.2 [...] % 11.6-14.8 platelet count 203 10^3/MM^3 10*3/mm3 342-104 6208/12/30 leukocyte count, blood 5.2 10^3/MM^3 10*3/mm3 4.6-10.2 [...] % 11.6-14.8 platelet count 200 10^3/MM^3 10*3/mm3 700-012 3226/03/02 leukocyte count, blood 5.1 10^3/MM^3 10*3/mm3 4.6-10.2 [...] Panel - Chemistry sodium, serum 142 mmol/L 932-660 0257/02/04 carbon dioxide, venous blood 24.9 mmol/L 21.0-32.0 potassium, serum 4.1 mmol/L 3.5-5.2 chloride, serum 106 mmol/L 98-107 blood glucose 103 mg/dL 65-110 urea nitrogen, blood 25 mg/dL 7-18 creatinine, serum 0.83 mg/dL 0.55-1.30 alanine aminotransferase (SGPT), serum 38 U/L 12-78 aspartate aminotransferase (SGOT), serum 26 U/L 15-37 calcium, serum 8.7 mg/dL 8.5-10.1 bilirubin, serum, total 0.30 mg/dL 0.00-1.00 sodium, serum 140 mmol/L 115-931 8060/01/13 carbon dioxide, venous blood 26.4 mmol/L 21.0-32.0 potassium, serum 4.2 mmol/L 3.5-5.2 chloride, serum 104 mmol/L 98-107 blood glucose 101 mg/dL 65-110 urea nitrogen, blood 18 mg/dL 7-18 creatinine, serum 0.80 mg/dL 0.55-1.30 alanine aminotransferase (SGPT), serum 28 U/L aspartate aminotransferase (SGOT), serum 24 U/L 15-37 calcium, serum 8.7 mg/dL 8.5-10.1 bilirubin, serum, total 0.50 mg/dL 0.00-1.00 sodium, serum 138 mmol/L 856-383 4391/11/04 carbon dioxide, venous blood 27.7 mmol/L 21.0-32.0 potassium, serum 4.9 mmol/L 3.5-5.2 chloride, serum 104 mmol/L 98-107 blood glucose 92 mg/dL 65-110 urea nitrogen, blood 24 mg/dL 7-18 creatinine, serum 0.95 mg/dL 0.55-1.30 alanine aminotransferase (SGPT), serum 34 U/L aspartate aminotransferase (SGOT), serum 23 U/L - calcium, serum 8.9 mg/dL 8.5-10.1 bilirubin, serum, total 0.70 mg/dL 0.00-1.00 sodium, serum 140 mmol/L 083-165 7409/01/06 carbon dioxide, venous blood 27.2 mmol/L 21.0-32.0 [...] % 11.6-14.8 platelet count 289 10^3/MM^3 10*3/mm3 876-978 6010/01/06 leukocyte count, blood 4.1 10^3/MM^3 10*3/mm3 4.6-10.2 [...] % 11.6-14.8 platelet count 297 10^3/MM^3 10*3/mm3 444-961 6769/02/04 leukocyte count, blood 4.2 10^3/MM^3 10*3/mm3 4.6-10.2 [...] % 11.6-14.8 platelet count 271 10^3/MM^3 10*3/mm3 560-385 5209/11/04 leukocyte count, blood 3.8 10^3/MM^3 10*3/mm3 4.6-10.2 [...] Panel - Chemistry sodium, serum 140 mmol/L 516-690 3802/07/13 potassium, serum 4.5 mmol/L 3.5-5.2 chloride, serum 106 mmol/L 98-107 carbon dioxide, venous blood 27.7 mmol/L 21.0-32.0 blood glucose 105 mg/dL 65-110 urea nitrogen, blood 14 mg/dL 7-18 creatinine, serum 0.90 mg/dL 0.60-1.30 alanine aminotransferase (SGPT), serum 29 U/L 12-78 aspartate aminotransferase (SGOT), serum 22 U/L 15-37 calcium, serum 9.4 mg/dL 8.5-10.1 bilirubin, serum, total 0.70 mg/dL 0.00-1.00 cholesterol, serum 160 mg/dL 222-268 4563/07/13 triglyceride, serum, fasting 63 mg/dL 30-200 HDL [...] Panel - Chemistry sodium, serum 141 mmol/L 177-412 0116/11/18 carbon dioxide, venous blood 26.2 mmol/L 21.0-32.0 potassium, serum 4.4 mmol/L 3.5-5.2 chloride, serum 106 mmol/L 98-107 blood glucose 102 mg/dL 65-110 urea nitrogen, blood 24 mg/dL 7-18 creatinine, serum 0.77 mg/dL 0.55-1.30 alanine aminotransferase (SGPT), serum 30 U/L 12-78 aspartate aminotransferase (SGOT), serum 15 U/L 15-37 calcium, serum 8.3 mg/dL 8.5-10.1 bilirubin, serum, total 0.30 mg/dL 0.00-1.00 sodium, serum 139 mmol/L 934-184 5406/11/25 carbon dioxide, venous blood 27.9 mmol/L 21.0-32.0 potassium, serum 4.7 mmol/L 3.5-5.2 chloride, serum 105 mmol/L 98-107 blood glucose 94 mg/dL 65-110 urea nitrogen, blood 21 mg/dL 7-18 creatinine, serum 0.79 mg/dL 0.55-1.30 alanine aminotransferase (SGPT), serum 40 U/L aspartate aminotransferase (SGOT), serum 22 U/L 15-37 calcium, serum 8.5 mg/dL 8.5-10.1 bilirubin, serum, total 0.80 mg/dL 0.00-1.00 sodium, serum 142 mmol/L 997-142 5925/12/09 carbon dioxide, venous blood 28.5 mmol/L 21.0-32.0 potassium, serum 5.0 mmol/L 3.5-5.2 chloride, serum 109 mmol/L 98-107 blood glucose 91 mg/dL 65-110 urea nitrogen, blood 27 mg/dL - creatinine, serum 0.88 mg/dL 0.55-1.30 alanine aminotransferase (SGPT), serum 31 U/L aspartate aminotransferase (SGOT), serum 18 U/L 15-37 calcium, serum 8.9 mg/dL 8.5-10.1 bilirubin, serum, total 0.40 mg/dL 0.00-1.00 sodium, serum 140 mmol/L 390-235 4094/12/16 carbon dioxide, venous blood 25.4 mmol/L 21.0-32.0 potassium, serum 4.1 mmol/L 3.5-5.2 chloride, serum 104 mmol/L 98-107 blood glucose 110 mg/dL 65-110 urea nitrogen, blood 24 mg/dL 7- creatinine, serum 0.87 mg/dL 0.55-1.30 alanine aminotransferase (SGPT), serum 35 U/L aspartate aminotransferase (SGOT), serum 21 U/L 15-37 calcium, serum 8.4 mg/dL 8.5-10.1 bilirubin, serum, total 0.50 mg/dL 0.00-1.00 sodium, serum 141 mmol/L 731-949 9532/12/02 carbon dioxide, venous blood 25.9 mmol/L 21.0-32.0 potassium, serum 4.7 mmol/L 3.5-5.2 chloride, serum 106 mmol/L 98-107 blood glucose 78 mg/dL 65-110 urea nitrogen, blood 24 mg/dL 7-18 creatinine, serum 0.75 mg/dL 0.55-1.30 alanine aminotransferase (SGPT), serum 31 U/L aspartate aminotransferase (SGOT), serum 20 U/L -37 calcium, serum 8.7 mg/dL 8.5-10.1 bilirubin, serum, total 0.30 mg/dL 0.00-1.00 sodium, serum 139 mmol/L 995-717 3166/12/30 carbon dioxide, venous blood 28.2 mmol/L 21.0-32.0 potassium, serum 3.9 mmol/L 3.5-5.2 chloride, serum 105 mmol/L 98-107 blood glucose 91 mg/dL 65-110 urea nitrogen, blood 17 mg/dL 7-18 creatinine, serum 0.81 mg/dL 0.55-1.30 alanine aminotransferase (SGPT), serum 29 U/L aspartate aminotransferase (SGOT), serum 22 U/L 15-37 calcium, serum 8.8 mg/dL 8.5-10.1 bilirubin, serum, total 0.50 mg/dL 0.00-1.00 sodium, serum 141 mmol/L 668-935 7449/11/11 carbon dioxide, venous blood 26.8 mmol/L 21.0-32.0 potassium, serum 4.2 mmol/L 3.5-5.2 chloride, serum 106 mmol/L 98-107 blood glucose 95 mg/dL 65-110 urea nitrogen, blood 18 mg/dL 7-18 creatinine, serum 0.70 mg/dL 0.55-1.30 alanine aminotransferase (SGPT), serum 33 U/L 12-78 aspartate aminotransferase (SGOT), serum 22 U/L 15-37 calcium, serum 8.5 mg/dL 8.5-10.1 bilirubin, serum, total 0.30 mg/dL 0.00-1.00 sodium, serum 143 mmol/L 618-206 1871/12/23 carbon dioxide, venous blood 24.6 mmol/L 21.0-32.0 potassium, serum 4.1 mmol/L 3.5-5.2 chloride, serum 107 mmol/L 98-107 blood glucose 98 mg/dL 65-110 urea nitrogen, blood 22 mg/dL 7-18 creatinine, serum 0.77 mg/dL 0.55-1.30 alanine aminotransferase (SGPT), serum 28 U/L -78 aspartate aminotransferase (SGOT), serum 20 U/L 15-37 calcium, serum 8.6 mg/dL 8.5-10.1 bilirubin, serum, total 0.30 mg/dL 0.00-1.00 Lab Report: VITAMIN D, 25-HYDROXY/96809 - Chemistry vitamin D 25-hydroxy, serum 24 ng/mL 30-100 Encounters Code Encounter Date Provider Facility CPT-13235 Level 2 Est. Patient 14:30:43 SKIVER OPERATOR Marta Viramontes [facility] CPT-38870 Level 4 Est. Patient 09:14:36 SKIVER OPERATOR Rikki GRANADOS [facility] CPT-10865 Level 2 Est. Patient 09:07:32 CDT Marta Viramontes ANIMAL NUTRITIONIST [facility] CPT-53107 Level 4 Est. Patient 11:55:00 CDT Rikki GRANADOS [facility] CPT-82771 Level 3 Est. Patient 13:25:16 CDT Jennifer Chun MD PhD [facility] CPT-40057 Level 3 Est. Patient 17:31:22 CDT Solomon Alamo MD [facility] CPT-88573 Level 3 Est. Patient 08:02:14 CDT Solomon Alamo MD [facility] CPT-78973 Level 3 Est. Patient 17:23:53 CDT Rikki GRANADOS [facility] CPT-56670 Level 3 Est. Patient 11:22:41 CDT Darryn Hearn [facility] Procedures Code Procedure Name Date Entry Date Standard Description CPT-83080 Chest 2V Frontal and Lat 10:57:00 SKIVER OPERATOR CPT-96017 Venipuncture Draw Fee 10:56:59 SKIVER OPERATOR CPT-04087 Venipuncture Draw Fee 09:22:28 SKIVER OPERATOR CPT-07655 Chest 2V Frontal and Lat 09:22:27 SKIVER OPERATOR CPT-I/D I/D Abscess 09:43:13 CDT CPT-38023 Venipuncture Draw Fee 08:16:46 SKIVER OPERATOR CPT-21293 Venipuncture Draw Fee 08:18:55 SKIVER OPERATOR CPT-80761 Venipuncture Draw Fee 08:31:18 SKIVER OPERATOR CPT-12322 Venipuncture Draw Fee 11:42:52 SKIVER OPERATOR CPT-97929 Venipuncture Draw Fee 13:26:37 SKIVER OPERATOR CPT-51223 Venipuncture Draw Fee 09:23:38 SKIVER OPERATOR CPT-000 Give Appropriate Tetanus Booster 10:23:50 CDT CPT-25947 Bone Density 08:28:45 CDT CPT-94604 Bone Density 11:35:15 CDT CPT-PV Prev. Care Visit 12:19:00 CDT CPT-65174 Venipuncture Draw Fee 15:02:58 CDT
[2018-01-19] MEDS ORDERED: fentaNYL INJECTION 100 MCG/2 ML AMP ONE (07:07)
--- OUTSIDE RECORDS SUMMARY | 2018-01-19 07:07 | XMS REPORT | Clinical Summary ---
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0 Active Rose Darnell [employer] Routine general medical examination at a health [...] a day as needed 2014 ALBUTEROL SULFATE 80150625217 Active Marta Yokum TRIM SETTER HELPER Active TUSSIONEX PENNKINETIC ER 10-8 MG/5ML LQCR 5ml po q12hr PRN Cough HYDROCOD POLST-CHLORPHEN POLST 04301993077 Active Marta Yokum TRIM SETTER HELPER Active LEVAQUIN 750 MG TABS 1 po qd x 7 days LEVOFLOXACIN 26239589226 Active Marta Viramontes TRIM SETTER HELPER Active FLONASE ALLERGY RELIEF 50 MCG/ACT NASAL SUSP spray twice in each nostril one time daily FLUTICASONE PROPIONATE 02523037517 Active Marta Maganaum TRIM SETTER HELPER Active LEVAQUIN 500 MG TAB 1 tablet by mouth daily LEVOFLOXACIN 15956761011 No Longer Active Marta Maganaum TRIM SETTER HELPER Active BENZONATATE 200 MG ORAL CAPS One capsule tid. BENZONATATE 98968883620 Active Marta Maganaum TRIM SETTER HELPER Active CHERATUSSIN AC 100-10 MG/5ML SYRP 1 tsp by mouth every 4 hours as needed for cough GUAIFENESIN-CODEINE 79177404548 No Longer Active Rikki Harms PA Active MUPIROCIN 2 % EXT OINT Use in each nostril in am and pm MUPIROCIN 65063185084 No Longer Active Rikki Harms PA Active DOXYCYCLINE HYCLATE 100 MG ORAL CAPS Take one bid DOXYCYCLINE HYCLATE 97210586879 No Longer Active Rikki Harms PA Active CLARITIN 10 MG TABS 1prn LORATADINE 32759784917 No Longer Active Jocelyne Naff [employer]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 ASPIRIN 81 MG TABS 1qd ASPIRIN 62396883929 No Longer Active Jocelyne Naff [employer]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 DOXYCYCLINE HYCLATE 100 MG CAP 1 cap by mouth twice daily DOXYCYCLINE HYCLATE 91080099711 No Longer Active Rikki Harms PA Active VITAMIN D3 63704 UNIT CAPS 1 pill by mouth weekly, for vitamin D deficiency CHOLECALCIFEROL 41883529806 No Longer Active Jennifer Chun MD PhD Active ANASTROZOLE 1 MG ORAL TABS Take one by mouth daily ANASTROZOLE 38834317329 Active Jennifer Chun MD PhD Active ZITHROMAX 250 MG TAB 2 po today, then 1 po q days 2-5 AZITHROMYCIN 86532164751 No Longer Active Rikki Harms PA Active MECLIZINE HCL 25 MG TABS 1 prn MECLIZINE HCL 35167851595 No Longer Active Solomon Alamo MD Active CHERATUSSIN AC SYRP prn as directed GUAIFENESIN- CODEINE SYRP 05252332194 No Longer Active Rikki Harms PA Active MULTIVITAMINS TABS 1qd MULTIPLE VITAMIN 18746207458 No Longer Active Rikki Harms PA Active OMEPRAZOLE 20 MG CPDR 1 PO Q D OMEPRAZOLE 49654565631 Active Rikki Harms PA Active ZITHROMAX Z-CAROLYN 250 MG TABS 2x1day,5h0mzdt AZITHROMYCIN 02608725110 No Longer Active Jocelyne Lovell [employer]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 MULTIVITAMINS TABS 1qd MULTIVITAMINS TABS MULTIPLE VITAMIN Inactive CHERATUSSIN AC SYRP prn as directed CHERATUSSIN AC SYRP GUAIFENESIN-CODEINE SYRP Inactive MECLIZINE HCL 25 MG TABS 1 prn MECLIZINE HCL 25 MG TABS 736442 MECLIZINE HCL Inactive ASPIRIN 81 MG TABS 1qd ASPIRIN 81 MG TABS 459795 ASPIRIN Inactive CLARITIN 10 MG TABS 1prn CLARITIN 10 MG TABS 485560 LORATADINE Inactive DOXYCYCLINE HYCLATE 100 MG ORAL CAPS Take one bid DOXYCYCLINE HYCLATE 100 MG ORAL CAPS 7726697 DOXYCYCLINE HYCLATE Inactive MUPIROCIN 2 % EXT OINT Use in each nostril in am and pm MUPIROCIN 2 % EXT OINT 679556 MUPIROCIN Inactive CHERATUSSIN AC 100-10 MG/5ML SYRP 1 tsp by mouth every 4 hours as needed for cough CHERATUSSIN AC 100-10 MG/5ML SYRP 915113 GUAIFENESIN-CODEINE Inactive LEVAQUIN 500 MG TAB 1 tablet by mouth daily LEVAQUIN 500 MG TAB 806608 LEVOFLOXACIN Inactive ZITHROMAX Z-CAROLYN 250 MG TABS 2x1day,9i6yggm ZITHROMAX Z-CAROLYN 250 MG TABS 2410551 AZITHROMYCIN Inactive ZITHROMAX 250 MG TAB 2 po today, then 1 po q days 2-5 ZITHROMAX 250 MG TAB 0530321 AZITHROMYCIN Inactive VITAMIN D3 90299 UNIT CAPS 1 pill by mouth weekly, for vitamin D deficiency VITAMIN D3 02302 UNIT CAPS CHOLECALCIFEROL Inactive DOXYCYCLINE HYCLATE 100 MG CAP 1 cap by mouth twice daily DOXYCYCLINE HYCLATE 100 MG CAP 5821780 DOXYCYCLINE HYCLATE Inactive Vital Signs Date Name [...] Description Lab Report: CBC W/DIFF - Hematology hemoglobin, blood 13.0 g/dL 12.0-16.0 hematocrit, blood 39.4 % 36.0-46.0 mean corpuscular volume, RBC 90 fL 80-97 mean corpuscular hemoglobin, RBC 29.8 pg 27.0-31.2 mean corpuscular hemoglobin concentration, RBC 33.0 G/DL % 31.8- 35.4 red blood cell distribution width 14.9 % 11.6-14.8 platelet count 222 10^3/MM^3 10*3/mm3 740-718 1172/12/31 erythrocyte (RBC) count 4.37 10^6/MM^3 10*6/mm3 4.04-5.48 lymphocytes as percent of blood leukocytes 37.1 % 20.5-51.1 monocytes as percent of blood leukocytes 43.6 % 1.7-9.3 neutrophils as percent of blood leukocytes 8.8 % 42.2-75.2 leukocyte count, blood 5.3 10^3/MM^3 10*3/mm3 4.6-10.2 leukocyte count, blood 11.7 10^3/MM^3 10*3/mm3 4.6-10.2 hematocrit, blood 41.2 % 36.0-46.0 mean corpuscular volume, RBC 90 fL 80-97 mean corpuscular hemoglobin, RBC 29.7 pg 27.0-31.2 mean corpuscular hemoglobin concentration, RBC 32.9 G/DL % 31.8- 35.4 red blood cell distribution width 15.5 % 11.6-14.8 platelet count 191 10^3/MM^3 10*3/mm3 034-580 9670/01/07 neutrophils as percent of blood leukocytes 67.9 % 42.2-75.2 monocytes as percent of blood leukocytes 8.8 % 1.7-9.3 lymphocytes as percent of blood leukocytes 21.3 % 20.5-51.1 erythrocyte (RBC) count 4.56 10^6/MM^3 10*6/mm3 4.04-5.48 hemoglobin, blood 13.6 g/dL 12.0-16.0 leukocyte count, blood 9.8 10^3/MM^3 10*3/mm3 4.6-10.2 hematocrit, blood 39.0 % 36.0-46.0 mean corpuscular volume, RBC 90 fL 80-97 mean corpuscular hemoglobin, RBC 30.0 pg 27.0-31.2 mean corpuscular hemoglobin concentration, RBC 33.3 G/DL % 31.8- 35.4 red blood cell distribution width 15.9 % 11.6-14.8 platelet count 195 10^3/MM^3 10*3/mm3 653-531 0311/01/20 neutrophils as percent of blood leukocytes 78.4 % 42.2-75.2 monocytes as percent of blood leukocytes 7.4 % 1.7-9.3 lymphocytes as percent of blood leukocytes 10.0 % 20.5-51.1 erythrocyte (RBC) count 4.32 10^6/MM^3 10*6/mm3 4.04-5.48 hemoglobin, blood 13.0 g/dL 12.0-16.0 leukocyte count, blood 11.9 10^3/MM^3 10*3/mm3 4.6-10.2 hematocrit, blood 37.0 % 36.0-46.0 mean corpuscular volume, RBC 93 fL 80-97 mean corpuscular hemoglobin, RBC 31.1 pg 27.0-31.2 mean corpuscular hemoglobin concentration, RBC 33.5 G/DL % 31.8- 35.4 red blood cell distribution width 16.4 % 11.6-14.8 platelet count 278 10^3/MM^3 10*3/mm3 882-409 1542/02/04 leukocyte count, blood 8.5 10^3/MM^3 10*3/mm3 4.6-10.2 [...] % 11.6-14.8 platelet count 326 10^3/MM^3 10*3/mm3 072-245 6317/01/28 neutrophils as percent of blood leukocytes 53.5 % 42.2-75.2 monocytes as percent of blood leukocytes 22.4 % 1.7-9.3 lymphocytes as percent of blood leukocytes 21.9 % 20.5-51.1 erythrocyte (RBC) count 3.99 10^6/MM^3 10*6/mm3 4.04-5.48 hemoglobin, blood 12.4 g/dL 12.0-16.0 leukocyte count, blood 2.3 10^3/MM^3 10*3/mm3 4.6-10.2 hematocrit, blood 35.3 % 36.0-46.0 mean corpuscular volume, RBC 92 fL 80-97 mean corpuscular hemoglobin, RBC 31.1 pg 27.0-31.2 mean corpuscular hemoglobin concentration, RBC 33.8 G/DL % 31.8- 35.4 red blood cell distribution width 18.0 % 11.6-14.8 platelet count 240 10^3/MM^3 10*3/mm3 633-100 5898/02/10 neutrophils as percent of blood leukocytes 63.7 % 42.2-75.2 monocytes as percent of blood leukocytes 1.8 % 1.7-9.3 lymphocytes as percent of blood leukocytes 31.7 % 20.5-51.1 erythrocyte (RBC) count 3.83 10^6/MM^3 10*6/mm3 4.04-5.48 hemoglobin, blood 11.9 g/dL 12.0-16.0 leukocyte count, blood 3.4 10^3/MM^3 10*3/mm3 4.6-10.2 [...] % 11.6-14.8 platelet count 308 10^3/MM^3 10*3/mm3 009-979 0878/02/25 leukocyte count, blood 6.6 10^3/MM^3 10*3/mm3 4.6-10.2 [...] % 11.6-14.8 platelet count 433 10^3/MM^3 10*3/mm3 268-021 5442/11/18 leukocyte count, blood 8.5 10^3/MM^3 10*3/mm3 4.6-10.2 [...] % 11.6-14.8 platelet count 143 10^3/MM^3 10*3/mm3 066-747 2883/11/25 leukocyte count, blood 2.1 10^3/MM^3 10*3/mm3 4.6-10.2 [...] % 11.6-14.8 platelet count 139 10^3/MM^3 10*3/mm3 232-399 0807/12/02 leukocyte count, blood 6.7 10^3/MM^3 10*3/mm3 4.6-10.2 [...] % 11.6-14.8 platelet count 258 10^3/MM^3 10*3/mm3 630-403 3987/12/09 leukocyte count, blood 5.3 10^3/MM^3 10*3/mm3 4.6-10.2 [...] % 11.6-14.8 platelet count 240 10^3/MM^3 10*3/mm3 238-933 6097/12/16 leukocyte count, blood 3.2 10^3/MM^3 10*3/mm3 4.6-10.2 [...] % 11.6-14.8 platelet count 158 10^3/MM^3 10*3/mm3 841-103 7876/12/18 leukocyte count, blood 8.8 10^3/MM^3 10*3/mm3 4.6-10.2 [...] % 11.6-14.8 platelet count 207 10^3/MM^3 10*3/mm3 375-741 9702/12/23 leukocyte count, blood 6.2 10^3/MM^3 10*3/mm3 4.6-10.2 [...] % 11.6-14.8 platelet count 183 10^3/MM^3 10*3/mm3 374-420 9065/11/11 leukocyte count, blood 2.0 10^3/MM^3 10*3/mm3 4.6-10.2 [...] % 11.6-14.8 platelet count 203 10^3/MM^3 10*3/mm3 142-424 Lab Report: CBC W/DIFF, Comp. Metabolic Panel - Chemistry sodium, serum 138 mmol/L 144-850 9227/11/04 carbon dioxide, venous blood 27.7 mmol/L 21.0-32.0 potassium, serum 4.9 mmol/L 3.5-5.2 chloride, serum 104 mmol/L 98-107 blood glucose 92 mg/dL 65-110 urea nitrogen, blood 24 mg/dL 7-18 creatinine, serum 0.95 mg/dL 0.55-1.30 alanine aminotransferase (SGPT), serum 34 U/L 12-78 aspartate aminotransferase (SGOT), serum 23 U/L 15-37 calcium, serum 8.9 mg/dL 8.5-10.1 bilirubin, serum, total 0.70 mg/dL 0.00-1.00 sodium, serum 141 mmol/L 174-998 1771/01/14 potassium, serum 4.9 mmol/L 3.5-5.2 chloride, serum [...] CBC W/DIFF, Comp. Metabolic Panel - Hematology neutrophils as percent of blood leukocytes 66.4 % 42.2-75.2 monocytes as percent of blood leukocytes 6.3 % 1.7-9.3 lymphocytes as percent of blood leukocytes 25.5 % 20.5-51.1 erythrocyte (RBC) count 4.29 10^6/MM^3 10*6/mm3 4.04-5.48 hemoglobin, blood 12.7 g/dL 12.0-16.0 leukocyte count, blood 6.7 10^3/MM^3 10*3/mm3 4.6-10.2 hematocrit, blood 38.9 % 36.0-46.0 mean corpuscular volume, RBC 91 fL 80-97 mean corpuscular hemoglobin, RBC 29.6 pg 27.0-31.2 mean corpuscular hemoglobin concentration, RBC 32.7 G/DL % 31.8- 35.4 red blood cell distribution width 15.6 % 11.6-14.8 platelet count 376 10^3/MM^3 10*3/mm3 854-015 9881/11/04 leukocyte count, blood 3.8 10^3/MM^3 10*3/mm3 4.6-10.2 [...] Panel - Chemistry sodium, serum 140 mmol/L 938-215 1135/07/13 potassium, serum 4.5 mmol/L 3.5-5.2 chloride, serum 106 mmol/L 98-107 carbon dioxide, venous blood 27.7 mmol/L 21.0-32.0 blood glucose 105 mg/dL 65-110 urea nitrogen, blood 14 mg/dL 7-18 creatinine, serum 0.90 mg/dL 0.60-1.30 alanine aminotransferase (SGPT), serum 29 U/L 12-78 aspartate aminotransferase (SGOT), serum 22 U/L 15-37 calcium, serum 9.4 mg/dL 8.5-10.1 bilirubin, serum, total 0.70 mg/dL 0.00-1.00 cholesterol, serum 160 mg/dL 499-749 6431/07/13 triglyceride, serum, fasting 63 mg/dL 30-200 HDL [...] Panel - Chemistry sodium, serum 141 mmol/L 673-932 7962/11/11 carbon dioxide, venous blood 26.8 mmol/L 21.0-32.0 potassium, serum 4.2 mmol/L 3.5-5.2 chloride, serum 106 mmol/L 98-107 blood glucose 95 mg/dL 65-110 urea nitrogen, blood 18 mg/dL 7-18 creatinine, serum 0.70 mg/dL 0.55-1.30 alanine aminotransferase (SGPT), serum 33 U/L 12-78 aspartate aminotransferase (SGOT), serum 22 U/L 15-37 calcium, serum 8.5 mg/dL 8.5-10.1 bilirubin, serum, total 0.30 mg/dL 0.00-1.00 potassium, serum 5.2 mmol/L 3.5-5.2 chloride, serum 106 mmol/L 98-107 carbon dioxide, venous blood 27.8 mmol/L 21.0-32.0 blood glucose 111 mg/dL 65-110 urea nitrogen, blood 18 mg/dL 7-18 sodium, serum 141 mmol/L 668-498 6052/02/10 creatinine, serum 0.90 mg/dL 0.60-1.30 alanine aminotransferase (SGPT), serum 29 U/L aspartate aminotransferase (SGOT), serum 21 U/L - calcium, serum 8.3 mg/dL 8.5-10.1 bilirubin, serum, total 0.40 mg/dL 0.00-1.00 sodium, serum 143 mmol/L 161-913 9514/12/23 carbon dioxide, venous blood 24.6 mmol/L 21.0-32.0 potassium, serum 4.1 mmol/L 3.5-5.2 chloride, serum 107 mmol/L 98-107 blood glucose 98 mg/dL 65-110 urea nitrogen, blood 22 mg/dL 7-18 creatinine, serum 0.77 mg/dL 0.55-1.30 alanine aminotransferase (SGPT), serum 28 U/L aspartate aminotransferase (SGOT), serum 20 U/L - calcium, serum 8.6 mg/dL 8.5-10.1 bilirubin, serum, total 0.30 mg/dL 0.00-1.00 sodium, serum 142 mmol/L 885-708 3780/12/09 carbon dioxide, venous blood 28.5 mmol/L 21.0-32.0 potassium, serum 5.0 mmol/L 3.5-5.2 chloride, serum 109 mmol/L 98-107 blood glucose 91 mg/dL 65-110 urea nitrogen, blood 27 mg/dL 7-18 creatinine, serum 0.88 mg/dL 0.55-1.30 alanine aminotransferase (SGPT), serum 31 U/L -78 aspartate aminotransferase (SGOT), serum 18 U/L 15-37 calcium, serum 8.9 mg/dL 8.5-10.1 bilirubin, serum, total 0.40 mg/dL 0.00-1.00 sodium, serum 140 mmol/L 485-522 0426/12/16 carbon dioxide, venous blood 25.4 mmol/L 21.0-32.0 potassium, serum 4.1 mmol/L 3.5-5.2 chloride, serum 104 mmol/L 98-107 blood glucose 110 mg/dL 65-110 urea nitrogen, blood 24 mg/dL 7-18 creatinine, serum 0.87 mg/dL 0.55-1.30 alanine aminotransferase (SGPT), serum 35 U/L 78 aspartate aminotransferase (SGOT), serum 21 U/L 15-37 calcium, serum 8.4 mg/dL 8.5-10.1 bilirubin, serum, total 0.50 mg/dL 0.00-1.00 sodium, serum 141 mmol/L 714-854 8209/12/02 carbon dioxide, venous blood 25.9 mmol/L 21.0-32.0 potassium, serum 4.7 mmol/L 3.5-5.2 chloride, serum 106 mmol/L 98-107 blood glucose 78 mg/dL 65-110 urea nitrogen, blood 24 mg/dL 7-18 creatinine, serum 0.75 mg/dL 0.55-1.30 alanine aminotransferase (SGPT), serum 31 U/L aspartate aminotransferase (SGOT), serum 20 U/L 15-37 calcium, serum 8.7 mg/dL 8.5-10.1 bilirubin, serum, total 0.30 mg/dL 0.00-1.00 sodium, serum 141 mmol/L 372-952 9656/11/18 carbon dioxide, venous blood 26.2 mmol/L 21.0-32.0 potassium, serum 4.4 mmol/L 3.5-5.2 chloride, serum 106 mmol/L 98-107 blood glucose 102 mg/dL 65-110 urea nitrogen, blood 24 mg/dL - creatinine, serum 0.77 mg/dL 0.55-1.30 alanine aminotransferase (SGPT), serum 30 U/L aspartate aminotransferase (SGOT), serum 15 U/L 15- calcium, serum 8.3 mg/dL 8.5-10.1 bilirubin, serum, total 0.30 mg/dL 0.00-1.00 sodium, serum 139 mmol/L 847-488 7915/11/25 carbon dioxide, venous blood 27.9 mmol/L 21.0-32.0 potassium, serum 4.7 mmol/L 3.5-5.2 chloride, serum 105 mmol/L 98-107 blood glucose 94 mg/dL 65-110 urea nitrogen, blood 21 mg/dL - creatinine, serum 0.79 mg/dL 0.55-1.30 alanine aminotransferase (SGPT), serum 40 U/L aspartate aminotransferase (SGOT), serum 22 U/L 15- calcium, serum 8.5 mg/dL 8.5-10.1 bilirubin, serum, total 0.80 mg/dL 0.00-1.00 Lab Report: VITAMIN D, 25-HYDROXY/75841 - Chemistry vitamin D 25-hydroxy, serum 24 ng/mL 30-100 Encounters Code Encounter Date Provider Facility CPT-65871 Level 2 Est. 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 Patient 09:14:36 DANCING MASTER Rikki GRANADOS [facility] CPT-52929 Level 2 Est. Patient 09:07:32 CDT Marta Viramontes [facility] CPT-43421 Level 4 Est. Patient 11:55:00 CDT Rikki Stearns [facility] CPT-32511 Level 3 Est. Patient 13:25:16 CDT Jennifer Chun MD PhD [facility] CPT-11266 Level 3 Est. Patient 17:31:22 CDT Solomon Alamo MD [facility] CPT-29891 Level 3 Est. Patient 08:02:14 CDT Solomon Alamo MD [facility] CPT-68919 Level 3 Est. Patient 17:23:53 CDT Rikki Stearns [facility] CPT-11158 Level 3 Est. Patient 11:22:41 CDT Darryn Hearn [facility] Procedures Code Procedure Name Date Entry Date Standard Description CPT-75563 Venipuncture Draw Fee 09:22:28 DANCING MASTER CPT-81735 Chest 2V Frontal and Lat 09:22:27 DANCING MASTER CPT-I/D I/D Abscess 09:43:13 CDT CPT-92638 Venipuncture Draw Fee 08:16:46 DANCING MASTER CPT-21964 Venipuncture Draw Fee 08:18:55 DANCING MASTER CPT-49946 Venipuncture Draw Fee 08:31:18 DANCING MASTER CPT-32559 Venipuncture Draw Fee 11:42:52 DANCING MASTER CPT-31686 Venipuncture Draw Fee 13:26:37 DANCING MASTER CPT-23447 Venipuncture Draw Fee 09:23:38 DANCING MASTER CPT-000 Give Appropriate Tetanus Booster 10:23:50 CDT CPT-78847 Bone Density 08:28:45 CDT CPT-19583 Bone Density 11:35:15 CDT CPT-PV Prev. Care Visit 12:19:00 CDT CPT-53967 Venipuncture Draw Fee 15:02:58 CDT
[2018-01-19] MEDS ORDERED: MIDAZOLAM 2 MG/2 ML (VERSED) VIAL ONE (07:08)
--- OUTSIDE RECORDS SUMMARY | 2018-01-19 07:08 | XMS REPORT | Clinical Summary ---
Author Author Admin, E Organization [facility] Address Unknown Phone Unavailable Allergies, Adverse Reactions, Alerts Allergy Name Reaction Description Start Date Severity Status Provider SULFA facial swelling Critical Active Jocelyne Naff PRICING MANAGER Conditions or Problems Problem Name Problem Code Onset Date Status Entry Date Provider Comment Standard Description Annotate G E R D 530.81 Active Jocelyne Naff PRICING MANAGER Esophageal reflux FH COLON CANCER V16.0 Active Jocelyne Naff PRICING MANAGER Family history of malignant neoplasm of gastrointestinal tract ESOPHAGEAL STRICTURE 530.3 Active Darryn Hearn PA Stricture and stenosis of esophagus CAROTID ARTERY STENOSIS, RIGHT 433.10 Active Rikki Stearns PA Occlusion and stenosis of carotid artery, without mention of cerebral infarction HEALTH SCREENING V70.0 Active Rose Darnell PRICING MANAGER Routine general medical examination at a health [...] a day as needed 2014 ALBUTEROL SULFATE 32892665917 Active Marta Yokum CUSTOMER CARE MANAGER Active TUSSIONEX PENNKINETIC ER 10-8 MG/5ML LQCR 5ml po q12hr PRN Cough HYDROCOD POLST-CHLORPHEN POLST 61783849788 Active Marta Yokum CUSTOMER CARE MANAGER Active LEVAQUIN 750 MG TABS 1 po qd x 7 days LEVOFLOXACIN 99622808988 Active Marta Viramontes CUSTOMER CARE MANAGER Active FLONASE ALLERGY RELIEF 50 MCG/ACT NASAL SUSP spray twice in each nostril one time daily FLUTICASONE PROPIONATE 40921368785 Active Marta Maganaum CUSTOMER CARE MANAGER Active LEVAQUIN 500 MG TAB 1 tablet by mouth daily LEVOFLOXACIN 72085602116 No Longer Active Marta Maganaum CUSTOMER CARE MANAGER Active BENZONATATE 200 MG ORAL CAPS One capsule tid. BENZONATATE 27061909892 Active Marta Maganaum CUSTOMER CARE MANAGER Active CHERATUSSIN AC 100-10 MG/5ML SYRP 1 tsp by mouth every 4 hours as needed for cough GUAIFENESIN-CODEINE 59246840214 No Longer Active Rikki Harms PA Active MUPIROCIN 2 % EXT OINT Use in each nostril in am and pm MUPIROCIN 47746272849 No Longer Active Rikki Harms PA Active DOXYCYCLINE HYCLATE 100 MG ORAL CAPS Take one bid DOXYCYCLINE HYCLATE 52390433104 No Longer Active Rikki Harms PA Active CLARITIN 10 MG TABS 1prn LORATADINE 93024790939 No Longer Active Jocelyne Naff PRICING MANAGER Active ASPIRIN 81 MG TABS 1qd ASPIRIN 75329765162 No Longer Active Jocelyne Naff PRICING MANAGER Active DOXYCYCLINE HYCLATE 100 MG CAP 1 cap by mouth twice daily DOXYCYCLINE HYCLATE 52354386745 No Longer Active Rikki Harms PA Active VITAMIN D3 90965 UNIT CAPS 1 pill by mouth weekly, for vitamin D deficiency CHOLECALCIFEROL 09911827578 No Longer Active Jennifer Chun MD PhD Active ANASTROZOLE 1 MG ORAL TABS Take one by mouth daily ANASTROZOLE 04218183471 Active Jennifer Chun MD PhD Active ZITHROMAX 250 MG TAB 2 po today, then 1 po q days 2-5 AZITHROMYCIN 86428770319 No Longer Active Rikki Harms PA Active MECLIZINE HCL 25 MG TABS 1 prn MECLIZINE HCL 75384691357 No Longer Active Solomon Alamo MD Active CHERATUSSIN AC SYRP prn as directed GUAIFENESIN- CODEINE SYRP 70341103536 No Longer Active Rikki Harms PA Active MULTIVITAMINS TABS 1qd MULTIPLE VITAMIN 49943523045 No Longer Active Rikki Harms PA Active OMEPRAZOLE 20 MG CPDR 1 PO Q D OMEPRAZOLE 84513302108 Active Marta Yokum CUSTOMER CARE MANAGER Active ZITHROMAX Z-CAROLYN 250 MG TABS 2x1day,5m2ndiv AZITHROMYCIN 39313491743 No Longer Active Jocelyne Lovell PRICING MANAGER Active MULTIVITAMINS TABS 1qd MULTIVITAMINS TABS MULTIPLE VITAMIN Inactive CHERATUSSIN AC SYRP prn as directed CHERATUSSIN AC SYRP GUAIFENESIN-CODEINE SYRP Inactive MECLIZINE HCL 25 MG TABS 1 prn MECLIZINE HCL 25 MG TABS 553420 MECLIZINE HCL Inactive ASPIRIN 81 MG TABS 1qd ASPIRIN 81 MG TABS 110472 ASPIRIN Inactive CLARITIN 10 MG TABS 1prn CLARITIN 10 MG TABS 160939 LORATADINE Inactive DOXYCYCLINE HYCLATE 100 MG ORAL CAPS Take one bid DOXYCYCLINE HYCLATE 100 MG ORAL CAPS 9086676 DOXYCYCLINE HYCLATE Inactive MUPIROCIN 2 % EXT OINT Use in each nostril in am and pm MUPIROCIN 2 % EXT OINT 346173 MUPIROCIN Inactive CHERATUSSIN AC 100-10 MG/5ML SYRP 1 tsp by mouth every 4 hours as needed for cough CHERATUSSIN AC 100-10 MG/5ML SYRP 836535 GUAIFENESIN-CODEINE Inactive LEVAQUIN 500 MG TAB 1 tablet by mouth daily LEVAQUIN 500 MG TAB 157425 LEVOFLOXACIN Inactive ZITHROMAX Z-CAROLYN 250 MG TABS 2x1day,3i1jzzh ZITHROMAX Z-CAROLYN 250 MG TABS 3487421 AZITHROMYCIN Inactive ZITHROMAX 250 MG TAB 2 po today, then 1 po q days 2-5 ZITHROMAX 250 MG TAB 1113899 AZITHROMYCIN Inactive VITAMIN D3 23624 UNIT CAPS 1 pill by mouth weekly, for vitamin D deficiency VITAMIN D3 51162 UNIT CAPS CHOLECALCIFEROL Inactive DOXYCYCLINE HYCLATE 100 MG CAP 1 cap by mouth twice daily DOXYCYCLINE HYCLATE 100 MG CAP 0824672 DOXYCYCLINE HYCLATE Inactive Vital Signs Date Name [...] % 11.6-14.8 platelet count 222 10^3/MM^3 10*3/mm3 368-708 7199/01/07 leukocyte count, blood 11.7 10^3/MM^3 10*3/mm3 4.6-10.2 [...] % 11.6-14.8 platelet count 191 10^3/MM^3 10*3/mm3 639-436 3695/01/20 leukocyte count, blood 9.8 10^3/MM^3 10*3/mm3 4.6-10.2 [...] % 11.6-14.8 platelet count 195 10^3/MM^3 10*3/mm3 770-866 7691/01/28 leukocyte count, blood 11.9 10^3/MM^3 10*3/mm3 4.6-10.2 [...] % 11.6-14.8 platelet count 278 10^3/MM^3 10*3/mm3 905-800 5452/02/04 leukocyte count, blood 8.5 10^3/MM^3 10*3/mm3 4.6-10.2 [...] % 11.6-14.8 platelet count 326 10^3/MM^3 10*3/mm3 828-808 3553/02/10 leukocyte count, blood 2.3 10^3/MM^3 10*3/mm3 4.6-10.2 [...] % 11.6-14.8 platelet count 240 10^3/MM^3 10*3/mm3 780-079 9256/02/17 leukocyte count, blood 3.4 10^3/MM^3 10*3/mm3 4.6-10.2 [...] % 11.6-14.8 platelet count 308 10^3/MM^3 10*3/mm3 613-781 8992/02/25 leukocyte count, blood 6.6 10^3/MM^3 10*3/mm3 4.6-10.2 [...] % 11.6-14.8 platelet count 433 10^3/MM^3 10*3/mm3 582-702 3130/11/18 leukocyte count, blood 8.5 10^3/MM^3 10*3/mm3 4.6-10.2 [...] % 11.6-14.8 platelet count 143 10^3/MM^3 10*3/mm3 186-635 6846/11/25 leukocyte count, blood 2.1 10^3/MM^3 10*3/mm3 4.6-10.2 [...] % 11.6-14.8 platelet count 139 10^3/MM^3 10*3/mm3 314-482 9416/12/02 leukocyte count, blood 6.7 10^3/MM^3 10*3/mm3 4.6-10.2 [...] % 11.6-14.8 platelet count 258 10^3/MM^3 10*3/mm3 731-896 2166/12/09 leukocyte count, blood 5.3 10^3/MM^3 10*3/mm3 4.6-10.2 [...] % 11.6-14.8 platelet count 240 10^3/MM^3 10*3/mm3 552-836 9014/12/16 leukocyte count, blood 3.2 10^3/MM^3 10*3/mm3 4.6-10.2 [...] % 11.6-14.8 platelet count 158 10^3/MM^3 10*3/mm3 121-163 9058/12/18 leukocyte count, blood 8.8 10^3/MM^3 10*3/mm3 4.6-10.2 [...] % 11.6-14.8 platelet count 207 10^3/MM^3 10*3/mm3 774-001 8398/12/23 leukocyte count, blood 6.2 10^3/MM^3 10*3/mm3 4.6-10.2 [...] % 11.6-14.8 platelet count 183 10^3/MM^3 10*3/mm3 839-674 9089/11/11 leukocyte count, blood 2.0 10^3/MM^3 10*3/mm3 4.6-10.2 [...] % 11.6-14.8 platelet count 203 10^3/MM^3 10*3/mm3 005-795 4613/12/30 leukocyte count, blood 5.2 10^3/MM^3 10*3/mm3 4.6-10.2 [...] Panel - Chemistry sodium, serum 138 mmol/L 633-433 0532/11/04 carbon dioxide, venous blood 27.7 mmol/L 21.0-32.0 potassium, serum 4.9 mmol/L 3.5-5.2 chloride, serum 104 mmol/L 98-107 blood glucose 92 mg/dL 65-110 urea nitrogen, blood 24 mg/dL 7-18 creatinine, serum 0.95 mg/dL 0.55-1.30 alanine aminotransferase (SGPT), serum 34 U/L 12-78 aspartate aminotransferase (SGOT), serum 23 U/L 15-37 calcium, serum 8.9 mg/dL 8.5-10.1 bilirubin, serum, total 0.70 mg/dL 0.00-1.00 sodium, serum 141 mmol/L 223-161 8577/01/14 potassium, serum 4.9 mmol/L 3.5-5.2 chloride, serum [...] % 11.6-14.8 platelet count 216 10^3/MM^3 10*3/mm3 398-523 9316/01/14 leukocyte count, blood 6.7 10^3/MM^3 10*3/mm3 4.6-10.2 [...] Panel - Chemistry sodium, serum 140 mmol/L 881-302 4943/07/13 potassium, serum 4.5 mmol/L 3.5-5.2 chloride, serum 106 mmol/L 98-107 carbon dioxide, venous blood 27.7 mmol/L 21.0-32.0 blood glucose 105 mg/dL 65-110 urea nitrogen, blood 14 mg/dL 7-18 creatinine, serum 0.90 mg/dL 0.60-1.30 alanine aminotransferase (SGPT), serum 29 U/L 12-78 aspartate aminotransferase (SGOT), serum 22 U/L 15-37 calcium, serum 9.4 mg/dL 8.5-10.1 bilirubin, serum, total 0.70 mg/dL 0.00-1.00 cholesterol, serum 160 mg/dL 449-123 3408/07/13 triglyceride, serum, fasting 63 mg/dL 30-200 HDL [...] Panel - Chemistry sodium, serum 141 mmol/L 625-980 1310/02/10 potassium, serum 5.2 mmol/L 3.5-5.2 chloride, serum 106 mmol/L 98-107 carbon dioxide, venous blood 27.8 mmol/L 21.0-32.0 blood glucose 111 mg/dL 65-110 urea nitrogen, blood 18 mg/dL 7-18 creatinine, serum 0.90 mg/dL 0.60-1.30 alanine aminotransferase (SGPT), serum 29 U/L 12-78 aspartate aminotransferase (SGOT), serum 21 U/L 15-37 calcium, serum 8.3 mg/dL 8.5-10.1 bilirubin, serum, total 0.40 mg/dL 0.00-1.00 sodium, serum 143 mmol/L 000-217 6161/12/23 carbon dioxide, venous blood 24.6 mmol/L 21.0-32.0 potassium, serum 4.1 mmol/L 3.5-5.2 chloride, serum 107 mmol/L 98-107 blood glucose 98 mg/dL 65-110 urea nitrogen, blood 22 mg/dL 7-18 creatinine, serum 0.77 mg/dL 0.55-1.30 alanine aminotransferase (SGPT), serum 28 U/L 78 aspartate aminotransferase (SGOT), serum 20 U/L 15-37 calcium, serum 8.6 mg/dL 8.5-10.1 bilirubin, serum, total 0.30 mg/dL 0.00-1.00 sodium, serum 142 mmol/L 520-310 6848/12/09 carbon dioxide, venous blood 28.5 mmol/L 21.0-32.0 potassium, serum 5.0 mmol/L 3.5-5.2 chloride, serum 109 mmol/L 98-107 blood glucose 91 mg/dL 65-110 urea nitrogen, blood 27 mg/dL 7-18 creatinine, serum 0.88 mg/dL 0.55-1.30 alanine aminotransferase (SGPT), serum 31 U/L 78 aspartate aminotransferase (SGOT), serum 18 U/L 15-37 calcium, serum 8.9 mg/dL 8.5-10.1 bilirubin, serum, total 0.40 mg/dL 0.00-1.00 sodium, serum 140 mmol/L 409-489 0169/12/16 carbon dioxide, venous blood 25.4 mmol/L 21.0-32.0 potassium, serum 4.1 mmol/L 3.5-5.2 chloride, serum 104 mmol/L 98-107 blood glucose 110 mg/dL 65-110 urea nitrogen, blood 24 mg/dL 7-18 creatinine, serum 0.87 mg/dL 0.55-1.30 alanine aminotransferase (SGPT), serum 35 U/L aspartate aminotransferase (SGOT), serum 21 U/L 15-37 calcium, serum 8.4 mg/dL 8.5-10.1 bilirubin, serum, total 0.50 mg/dL 0.00-1.00 sodium, serum 141 mmol/L 002-450 8719/12/02 carbon dioxide, venous blood 25.9 mmol/L 21.0-32.0 potassium, serum 4.7 mmol/L 3.5-5.2 chloride, serum 106 mmol/L 98-107 blood glucose 78 mg/dL 65-110 urea nitrogen, blood 24 mg/dL 7- creatinine, serum 0.75 mg/dL 0.55-1.30 alanine aminotransferase (SGPT), serum 31 U/L aspartate aminotransferase (SGOT), serum 20 U/L 15-37 calcium, serum 8.7 mg/dL 8.5-10.1 bilirubin, serum, total 0.30 mg/dL 0.00-1.00 sodium, serum 141 mmol/L 545-855 0365/11/18 carbon dioxide, venous blood 26.2 mmol/L 21.0-32.0 potassium, serum 4.4 mmol/L 3.5-5.2 chloride, serum 106 mmol/L 98-107 blood glucose 102 mg/dL 65-110 urea nitrogen, blood 24 mg/dL 7-18 creatinine, serum 0.77 mg/dL 0.55-1.30 alanine aminotransferase (SGPT), serum 30 U/L aspartate aminotransferase (SGOT), serum 15 U/L - calcium, serum 8.3 mg/dL 8.5-10.1 bilirubin, serum, total 0.30 mg/dL 0.00-1.00 sodium, serum 139 mmol/L 350-469 7414/11/25 carbon dioxide, venous blood 27.9 mmol/L 21.0-32.0 potassium, serum 4.7 mmol/L 3.5-5.2 chloride, serum 105 mmol/L 98-107 blood glucose 94 mg/dL 65-110 urea nitrogen, blood 21 mg/dL 7-18 creatinine, serum 0.79 mg/dL 0.55-1.30 alanine aminotransferase (SGPT), serum 40 U/L -78 aspartate aminotransferase (SGOT), serum 22 U/L 15-37 calcium, serum 8.5 mg/dL 8.5-10.1 bilirubin, serum, total 0.80 mg/dL 0.00-1.00 sodium, serum 139 mmol/L 183-479 4092/12/30 carbon dioxide, venous blood 28.2 mmol/L 21.0-32.0 potassium, serum 3.9 mmol/L 3.5-5.2 chloride, serum 105 mmol/L 98-107 blood glucose 91 mg/dL 65-110 urea nitrogen, blood 17 mg/dL 7-18 creatinine, serum 0.81 mg/dL 0.55-1.30 alanine aminotransferase (SGPT), serum 29 U/L 78 aspartate aminotransferase (SGOT), serum 22 U/L 15-37 calcium, serum 8.8 mg/dL 8.5-10.1 bilirubin, serum, total 0.50 mg/dL 0.00-1.00 sodium, serum 141 mmol/L 159-728 2544/11/11 carbon dioxide, venous blood 26.8 mmol/L 21.0-32.0 potassium, serum 4.2 mmol/L 3.5-5.2 chloride, serum 106 mmol/L 98-107 blood glucose 95 mg/dL 65-110 urea nitrogen, blood 18 mg/dL 7-18 creatinine, serum 0.70 mg/dL 0.55-1.30 alanine aminotransferase (SGPT), serum 33 U/L 12-78 aspartate aminotransferase (SGOT), serum 22 U/L 15-37 calcium, serum 8.5 mg/dL 8.5-10.1 bilirubin, serum, total 0.30 mg/dL 0.00-1.00 Lab Report: VITAMIN D, 25-HYDROXY/31008 - Chemistry vitamin D 25-hydroxy, serum 24 ng/mL 30-100 Encounters Code Encounter Date Provider Facility CPT-12751 Level 2 Est. Patient 14:30:43 CORPORATE REAL ESTATE MANAGER [facility] Level 4 Est. Patient 09:14:36 CORPORATE REAL ESTATE MANAGER Rikki GRANADOS [facility] CPT-55107 Level 2 Est. Patient 09:07:32 CDT Marta Viramontes [facility] CPT-82935 Level 4 Est. Patient 11:55:00 CDT Rikki GRANADOS [facility] CPT-30466 Level 3 Est. Patient 13:25:16 CDT Jennifer Chun MD PhD [facility] CPT-72371 Level 3 Est. Patient 17:31:22 CDT Solomon Alamo MD [facility] CPT-33510 Level 3 Est. Patient 08:02:14 CDT Solomon Alamo MD [facility] CPT-58788 Level 3 Est. Patient 17:23:53 CDT Rikki GRANADOS [facility] CPT-31316 Level 3 Est. Patient 11:22:41 CDT Darryn Hearn [facility] Procedures Code Procedure Name Date Entry Date Standard Description CPT-75671 Venipuncture Draw Fee 09:22:28 CORPORATE REAL ESTATE MANAGER CPT-95512 Chest 2V Frontal and Lat 09:22:27 CORPORATE REAL ESTATE MANAGER CPT-I/D I/D Abscess 09:43:13 CDT CPT-02131 Venipuncture Draw Fee 08:16:46 CORPORATE REAL ESTATE MANAGER CPT-09633 Venipuncture Draw Fee 08:18:55 CORPORATE REAL ESTATE MANAGER CPT-68696 Venipuncture Draw Fee 08:31:18 CORPORATE REAL ESTATE MANAGER CPT-53562 Venipuncture Draw Fee 11:42:52 CORPORATE REAL ESTATE MANAGER CPT-57957 Venipuncture Draw Fee 13:26:37 CORPORATE REAL ESTATE MANAGER CPT-59525 Venipuncture Draw Fee 09:23:38 CORPORATE REAL ESTATE MANAGER CPT-000 Give Appropriate Tetanus Booster 10:23:50 CDT CPT-06012 Bone Density 08:28:45 CDT CPT-89105 Bone Density 11:35:15 CDT CPT-PV Prev. Care Visit 12:19:00 CDT CPT-22095 Venipuncture Draw Fee 15:02:58 CDT
--- OUTSIDE RECORDS SUMMARY | 2018-01-19 07:09 | XMS REPORT | Clinical Summary ---
Author Author Admin, E Organization [facility] Address Unknown Phone Unavailable Allergies, Adverse Reactions, Alerts Allergy Name Reaction Description Start Date Severity Status Provider SULFA facial swelling Critical Active Jocelyne Naff [employer]ISTANT Conditions or Problems Problem Name Problem Code Onset Date Status Entry Date Provider Comment Standard Description Annotate G E R D 530.81 Active Jocelyne Naff [employer]GAL ASSISTANT Esophageal reflux FH COLON CANCER V16.0 Active Jocelyne Naff [employer] LEGAL ASSISTANT Family history of malignant neoplasm of gastrointestinal [...] Ingrown toenail, left 703.0 Resolved Marta Yokum [employer] LPN Ingrowing nail cellulitis, finger, right 681.00 Active Marta Yokum [employer] LPN Cellulitis and abscess of finger, unspecified Cough 786.2 Active Marta Yokum [employer] LPN Cough Breast microcalcification ICD-793.81 Inactive Jennifer Chun [...] Ingrown toenail, left ICD-703.0 Inactive Marta Yokum [employer] LPN Medication List Medication Instructions Start Date Stop Date Generic Name NDC Status Provider Patient Instruction MEDROL (CAROLYN) 4 MG TABS 6 tabs on day 1, 5 tabs on day 2, 4 tabs on day 3, 3 tabs on day 4, 2 tabs on day 5, 1 tab on day 6 METHYLPREDNISOLONE 48721166212 Active Marta Yokum [employer] LPN Active TESSALON PERLES 100 MG CAP 1 to 2 tablets by mouth 3 times daily as needed for cough BENZONATATE 67600090041 Active Marta Yokum [employer] LPN Active TUSSIONEX PENNKINETIC ER 10-8 MG/5ML LQCR 5ml po q12hr PRN Cough HYDROCOD POLST-CHLORPHEN POLST 67679411376 Active Marta Yokum [employer] CONNE[employer] LPN Active KEFLEX 500 MG CAP 1 po qid CEPHALEXIN 78461525383 No Longer Active Marta Yokum [employer] CONNE[employer] LPN Active B COMPLEX 50 ORAL CR-TABS B COMPLEX VITAMINS 91346646571 Active Marta Yokum [employer] CONNE[employer] LPN Active TUSSIONEX PENNKINETIC ER 10-8 MG/5ML LQCR 5ml po q12hr PRN Cough HYDROCOD POLST-CHLORPHEN POLST 45258582919 No Longer Active Marta Viramontes APRN Active VITAMIN D3 63605 UNIT CAPS 1 qWeek x 4 months for vitamin D deficiency 04/09 CHOLECALCIFEROL 83572753018 Active Marta Viramontes APRN Active CEPHALEXIN 500 MG ORAL CAPS Take one four times a day CEPHALEXIN 85556708832 No Longer Active Marta Viramontes APRN Active BIOTIN 1000 MCG ORAL TABS Take one daily BIOTIN 89003136766 Active Rikki Harms PA Active VITAMIN C 500 MG ORAL CAPS Take one daily ASCORBIC ACID 63583785170 Active Rikki Harms PA Active BENZONATATE 200 MG ORAL CAPS One capsule tid. BENZONATATE 24410778079 No Longer Active Rikki Harms PA Active FLONASE ALLERGY RELIEF 50 MCG/ACT NASAL SUSP spray twice in each nostril one time daily FLUTICASONE PROPIONATE 68917620472 No Longer Active Rikki Harms PA Active TUSSIONEX PENNKINETIC ER 10-8 MG/5ML LQCR 5ml po q12hr PRN Cough HYDROCOD POLST-CHLORPHEN POLST 75167922336 No Longer Active Rikki Harms PA Active NIACIN ER 500 MG ORAL CR-TABS Take one twice daily NIACIN 45174127416 Active Rikki Harms PA Active ALBUTEROL SULFATE 0.083 % NEBU SOLN one vial per nebulizer every 4-6 hours as needed ALBUTEROL SULFATE 87953947027 No Longer Active Rikki Harms PA Active MEDROL (CAROLYN) 4 MG TABS 6 tabs on day 1, 5 tabs on day 2, 4 tabs on day 3, 3 tabs on day 4, 2 tabs on day 5, 1 tab on day 6 METHYLPREDNISOLONE 59183392979 No Longer Active Rikki Harms PA Active LEVAQUIN 750 MG TABS 1 po qd x 7 days LEVOFLOXACIN 00890559529 No Longer Active Rikki Harms PA Active LEVAQUIN 500 MG ORAL TABS Take one tablet daily LEVOFLOXACIN 28482969529 No Longer Active Rikki Harms PA Active PROAIR HFA 108 (90 BASE) MCG/ACT AERS 2 puffs four times a day as needed 2014 ALBUTEROL SULFATE 20615308724 Active Marta Yokum [employer] LPN Active LEVAQUIN 500 MG TAB 1 tablet by mouth daily LEVOFLOXACIN 33427766233 No Longer Active Marta Yokum [employer] LPN Active CHERATUSSIN AC 100-10 MG/5ML SYRP 1 tsp by mouth every 4 hours as needed for cough GUAIFENESIN-CODEINE 35861234784 No Longer Active Rikki Harms PA Active MUPIROCIN 2 % EXT OINT Use in each nostril in am and pm MUPIROCIN 28977392136 No Longer Active Rikki Harms PA Active DOXYCYCLINE HYCLATE 100 MG ORAL CAPS Take one bid DOXYCYCLINE HYCLATE 92896358595 No Longer Active Rikki Harms PA Active CLARITIN 10 MG TABS 1prn LORATADINE 18332207529 No Longer Active Jocelyne Naff [employer]ANKRUPTCY LEGAL ASSISTANT Active ASPIRIN 81 MG TABS 1qd ASPIRIN 16780744851 No Longer Active Jocelyne Naff [employer]ANK[employer] LEGAL ASSISTANT Active DOXYCYCLINE HYCLATE 100 MG CAP 1 cap by mouth twice daily DOXYCYCLINE HYCLATE 65578826377 No Longer Active Rikki Harms PA Active VITAMIN D3 90387 UNIT CAPS 1 pill by mouth weekly, for vitamin D deficiency CHOLECALCIFEROL 16861915664 No Longer Active Jennifer Chun MD PhD Active ANASTROZOLE 1 MG ORAL TABS Take one by mouth daily ANASTROZOLE 06863084126 Active Jennifer Chun MD PhD Active ZITHROMAX 250 MG TAB 2 po today, then 1 po q days 2-5 AZITHROMYCIN 59571337107 No Longer Active Rikki Harms PA Active MECLIZINE HCL 25 MG TABS 1 prn MECLIZINE HCL 46580560161 No Longer Active Solomon Alamo MD Active CHERATUSSIN AC SYRP prn as directed GUAIFENESIN- CODEINE SYRP 36057281533 No Longer Active Rikki Harms PA Active MULTIVITAMINS TABS 1qd MULTIPLE VITAMIN 25191326982 No Longer Active Rikki Harms PA Active OMEPRAZOLE 20 MG CPDR 1 PO Q D OMEPRAZOLE 61019894118 Active Jocelyne Naff [employer] LEGAL ASSISTANT Active ZITHROMAX Z-CAROLYN 250 MG TABS 2x1day,6a6cait AZITHROMYCIN 33938254295 No Longer Active Jocelyne Naff BANK[employer]CY LEGAL ASSISTANT Active MULTIVITAMINS TABS 1qd MULTIVITAMINS TABS MULTIPLE VITAMIN Inactive CHERATUSSIN AC SYRP prn as directed CHERATUSSIN AC SYRP GUAIFENESIN-CODEINE SYRP Inactive MECLIZINE HCL 25 MG TABS 1 prn MECLIZINE HCL 25 MG TABS 384974 MECLIZINE HCL Inactive ASPIRIN 81 MG TABS 1qd ASPIRIN 81 MG TABS ASPIRIN Inactive CLARITIN 10 MG TABS 1prn CLARITIN 10 MG TABS 657589 LORATADINE Inactive DOXYCYCLINE HYCLATE 100 MG ORAL CAPS Take one bid DOXYCYCLINE HYCLATE 100 MG ORAL CAPS 9458542 DOXYCYCLINE HYCLATE Inactive MUPIROCIN 2 % EXT OINT Use in each nostril in am and pm MUPIROCIN 2 % EXT OINT 158142 MUPIROCIN Inactive CHERATUSSIN AC 100-10 MG/5ML SYRP 1 tsp by mouth every 4 hours as needed for cough CHERATUSSIN AC 100-10 MG/5ML SYRP 692972 GUAIFENESIN-CODEINE Inactive LEVAQUIN 500 MG TAB 1 tablet by mouth daily LEVAQUIN 500 MG TAB 620838 LEVOFLOXACIN Inactive LEVAQUIN 500 MG ORAL TABS Take one tablet daily LEVAQUIN 500 MG ORAL TABS 19980111 LEVOFLOXACIN Inactive LEVAQUIN 750 MG TABS 1 po qd x 7 days LEVAQUIN 750 MG TABS 759730 LEVOFLOXACIN Inactive ALBUTEROL SULFATE 0.083 % NEBU SOLN one vial per nebulizer every 4-6 hours as needed ALBUTEROL SULFATE 0.083 % NEBU SOLN 636082 ALBUTEROL SULFATE Inactive TUSSIONEX PENNKINETIC ER 10-8 MG/5ML LQCR 5ml po q12hr PRN Cough TUSSIONEX PENNKINETIC ER 10-8 MG/5ML LQCR HYDROCOD POLST- CHLORPHEN POLST Inactive FLONASE ALLERGY RELIEF 50 MCG/ACT NASAL SUSP spray twice in each nostril one time daily FLONASE ALLERGY RELIEF 50 MCG/ACT NASAL SUSP 1425332 FLUTICASONE PROPIONATE Inactive BENZONATATE 200 MG ORAL CAPS One capsule tid. BENZONATATE 200 MG ORAL CAPS 625098 BENZONATATE Inactive CEPHALEXIN 500 MG ORAL CAPS Take one four times a day CEPHALEXIN 500 MG ORAL CAPS 245836 CEPHALEXIN Inactive TUSSIONEX PENNKINETIC ER 10-8 MG/5ML LQCR 5ml po q12hr PRN Cough TUSSIONEX PENNKINETIC ER 10-8 MG/5ML LQCR HYDROCOD POLST- CHLORPHEN POLST Inactive ZITHROMAX Z-CAROLYN 250 MG TABS 2x1day,[id number] ZITHROMAX Z-CAROLYN 250 MG TABS 2513194 AZITHROMYCIN Inactive ZITHROMAX 250 MG TAB 2 po today, then 1 po q days 2-5 ZITHROMAX 250 MG TAB 5268719 AZITHROMYCIN Inactive VITAMIN D3 52628 UNIT CAPS 1 pill by mouth weekly, for vitamin D deficiency VITAMIN D3 85090 UNIT CAPS CHOLECALCIFEROL Inactive DOXYCYCLINE HYCLATE 100 MG CAP 1 cap by mouth twice daily DOXYCYCLINE HYCLATE 100 MG CAP 9627974 DOXYCYCLINE HYCLATE Inactive MEDROL (CAROLYN) 4 MG TABS 6 tabs on day 1, 5 tabs on day 2, 4 tabs on day 3, 3 tabs on day 4, 2 tabs on day 5, 1 tab on day 6 MEDROL ( CAROLYN) 4 MG TABS 098275 METHYLPREDNISOLONE Inactive KEFLEX 500 MG CAP 1 po qid KEFLEX 500 MG CAP 389471 CEPHALEXIN Inactive Vital Signs Date Name Value [...] Panel - Chemistry sodium, serum 142 mmol/L 931-481 5785/07/25 potassium, serum 4.0 mmol/L 3.5-5.2 chloride, serum 107 mmol/L 98-107 carbon dioxide, venous blood 31.6 mmol/L 21.0-32.0 blood glucose 108 mg/dL 65-110 calcium, serum 9.2 mg/dL 8.5-10.1 urea nitrogen, blood 20 mg/dL 7-18 creatinine, serum 0.92 mg/dL 0.55-1.30 sodium, serum 141 mmol/L 263-649 2385/11/11 potassium, serum 4.2 mmol/L 3.5-5.2 chloride, serum 106 mmol/L 98-107 carbon dioxide, venous blood 29.1 mmol/L 21.0-32.0 blood glucose 95 mg/dL 65-110 calcium, serum 8.6 mg/dL 8.5-10.1 urea nitrogen, blood 23 mg/dL 7-18 creatinine, serum 0.83 mg/dL 0.55-1.30 Lab Report: Lipid Panel, Thyroid Stimulating Hormone (L) - Chemistry cholesterol, serum 177 mg/dL 289-012 6450/10/31 triglyceride, serum, fasting 64 mg/dL 30-200 HDL cholesterol, serum 77 mg/dL 32-96 LDL cholesterol, serum 87 mg/dL 0-130 TSH 2.13 m[iU]/mL 0.36-3.74 Lab Report: VITAMIN D, 25-HYDROXY/59977 - Chemistry vitamin D 25-hydroxy, serum 25 ng/mL 30-100 Encounters Code Encounter Date Provider Facility CPT-85763 Level 3 Est. Patient 16:07:34 CDT Marta Viramontes [facility] CPT-46092 Level 3 Est. Patient 15:39:01 CDT Marta Viramontes [facility] CPT-24591 Level 4 Est. Patient 17:31:07 CDT Marta Viramontes [facility] CPT-67254 Level 3 Est. Patient 05:11:40 CDT Rikki GRANADOS [facility] CPT-15276 Level 2 Est. Patient 14:30:43 [employer] Marta Viramontes [facility] CPT-84212 Level 4 Est. Patient 09:14:36 [employer] Rikki GRANADOS [facility] CPT-99277 Level 2 Est. Patient 09:07:32 CDT Marta Viramontes [facility] CPT-64700 Level 4 Est. Patient 11:55:00 CDT Rikki GRANADOS [facility] CPT-69636 Level 3 Est. Patient 13:25:16 CDT Jennifer Chun MD [facility] CPT-48995 Level 3 Est. Patient 17:31:22 CDT Solomon Alamo MD [facility] CPT-10239 Level 3 Est. Patient 08:02:14 CDT Solomon Alamo MD [facility] CPT-91164 Level 3 Est. Patient 17:23:53 CDT Rikki GRANADOS [facility] CPT-47143 Level 3 Est. Patient 11:22:41 CDT Darryn Hearn [facility] Procedures Code Procedure Name Date Entry Date Standard Description CPT-38288 Venipuncture Draw Fee 12:43:48 [employer] CPT-90025 BMP - LAB USE ONLY 10:32:33 [employer] CPT-25028 Venipuncture Draw Fee 10:32:33 [employer] CPT-54135 Magnesium - LAB USE ONLY 09:54:30 CDT CPT-91464 TSH - LAB USE ONLY 09:54:30 CDT CPT-47599 Lipid - LAB USE ONLY 09:54:30 CDT CPT-26806 Venipuncture Draw Fee 09:54:29 CDT CPT-42543 Venipuncture Draw Fee 18:27:04 CDT CPT-66305 Chest 2V Frontal and Lat 10:57:00 [employer] CPT-35153 Venipuncture Draw Fee 10:56:59 [employer] CPT-77311 Venipuncture Draw Fee 09:22:28 [employer] CPT-97174 Chest 2V Frontal and Lat 09:22:27 [employer] CPT-I/D I/D Abscess 09:43:13 CDT CPT-12477 Venipuncture Draw Fee 08:16:46 [employer] CPT-20199 Venipuncture Draw Fee 08:18:55 [employer] CPT-65902 Venipuncture Draw Fee 08:31:18 [employer] CPT-47529 Venipuncture Draw Fee 11:42:52 [employer] CPT-66670 Venipuncture Draw Fee 13:26:37 [employer] CPT-95972 Venipuncture Draw Fee 09:23:38 [employer] CPT-000 Give Appropriate Tetanus Booster 10:23:50 CDT CPT-16900 Bone Density 08:28:45 CDT CPT-84137 Bone Density 11:35:15 CDT CPT-PV Prev. Care Visit 12:19:00 CDT CPT-03509 Venipuncture Draw Fee 15:02:58 CDT
--- OUTSIDE RECORDS SUMMARY | 2018-01-19 07:09 | XMS REPORT | Clinical Summary ---
Author Author Admin, E Organization [facility] Address Unknown Phone Unavailable Allergies, Adverse Reactions, Alerts Allergy Name Reaction Description Start Date Severity Status Provider SULFA facial swelling Critical Active Jocelyne Naff [employer]ASS [employer]ANDER [employer]T Conditions or Problems Problem Name Problem Code Onset Date Status Entry Date Provider Comment Standard Description Annotate G E R D 530.81 Active Jocelyne Naff [employer] Esophageal reflux FH COLON CANCER V16.0 Active Jocelyne Naff [employer] Family history of malignant neoplasm of gastrointestinal [...] (natural) Breast cancer 174.9 Resolved Marta Viramontes TRANSIT CLERK Malignant neoplasm of breast (female), unspecified Vitamin [...] Ingrown toenail, left 703.0 Resolved Marta Yokum TRANSIT CLERK Ingrowing nail cellulitis, finger, right 681.00 Resolved Marta Yokum TRANSIT CLERK Cellulitis and abscess of finger, unspecified Cough 786.2 Resolved Marta Yokum TRANSIT CLERK Cough Bronchitis, acute 466.0 Active Marta Yokum TRANSIT CLERK Acute bronchitis Breast microcalcification ICD-793.81 Inactive Jennifer Chun MD PhD Abnormal Mammogram ICD-793.80 Inactive Jennifer Chun MD PhD Breast cancer ICD-174.9 Inactive Marta Yokum TRANSIT CLERK Soft tissue infection ICD-528.9 Inactive Rikki Daryn PA Abscess, skin ICD-682.9 Inactive Rikki Harms PA Cellulitis, 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 Rikki Harms PA Rash ICD-782.1 Inactive Rikki Harms PA Upper respiratory infection, acute ICD-465.9 Inactive Rikki Harms PA Chemotherapy ICD-V58.11 Inactive Rikki Daryn PA Cough, chronic ICD-786.2 Inactive Rikki Daryn PA Ingrown toenail, left ICD-703.0 Inactive Marta Yokum TRANSIT CLERK cellulitis, finger, right ICD-681.00 Inactive Marta Yokum TRANSIT CLERK Cough ICD-786.2 Inactive Marta Yokum TRANSIT CLERK Medication List Medication Instructions Start Date Stop Date Generic Name NDC Status Provider Patient Instruction PROAIR HFA 108 (90 BASE) MCG/ACT INHALATION AEROSOL SOLUTION 2 puffs four times a day as needed ALBUTEROL SULFATE 47179689917 No Longer Active Marta Yokum TRANSIT CLERK Active DOXYCYCLINE HYCLATE 100 MG ORAL CAPSULE 1 cap by mouth twice daily DOXYCYCLINE HYCLATE 88847559898 No Longer Active Marta Yokum TRANSIT CLERK Active PROAIR HFA 108 (90 BASE) MCG/ACT INHALATION AEROSOL SOLUTION 2 puffs four times a day as needed ALBUTEROL SULFATE 87610154265 Active Marta Yokum TRANSIT CLERK Active AUGMENTIN 875-125 MG ORAL TABLET Take one tablet twice a day with food 04/25 AMOXICILLIN-POT CLAVULANATE 57417820009 No Longer Active Marta Yokum TRANSIT CLERK Active TESSALON PERLES 100 MG ORAL CAPSULE 1 to 2 tablets by mouth 3 times daily as needed for cough BENZONATATE 81895227832 No Longer Active Marta Yokum TRANSIT CLERK Active AUGMENTIN 875-125 MG ORAL TABLET 1 po BID x 10 days AMOXICILLIN-POT CLAVULANATE 69707477268 No Longer Active Marta Yokum TRANSIT CLERK Active MEDROL 4 MG ORAL TABLET THERAPY PACK 6 tabs on day 1, 5 tabs on day 2, 4 tabs on day 3, 3 tabs on day 4, 2 tabs on day 5, 1 tab on day 6 METHYLPREDNISOLONE 55021205577 No Longer Active Marta Yokum TRANSIT CLERK Active TUSSIONEX PENNKINETIC ER 10-8 MG/5ML ORAL SUSPENSION EXTENDED RELEASE 5ml po q12hr PRN Cough HYDROCOD POLST-CHLORPHEN POLST 20373033704 Active Marta Yokum TRANSIT CLERK Active KEFLEX 500 MG ORAL CAPSULE 1 po qid CEPHALEXIN 21604572685 No Longer Active Marta Yokum TRANSIT CLERK Active B COMPLEX 50 ORAL TABLET EXTENDED RELEASE B COMPLEX VITAMINS 14093537967 Active Marta Yokum TRANSIT CLERK Active TUSSIONEX PENNKINETIC ER 10-8 MG/5ML ORAL SUSPENSION EXTENDED RELEASE 5ml po q12hr PRN Cough HYDROCOD POLST-CHLORPHEN POLST 37258076765 No Longer Active Marta Yokum TRANSIT CLERK Active VITAMIN D3 86452 UNIT ORAL CAPSULE 1 qWeek x 4 months for vitamin D deficiency CHOLECALCIFEROL 40271962622 Active Marta Yokum TRANSIT CLERK Active CEPHALEXIN 500 MG ORAL CAPSULE Take one four times a day CEPHALEXIN 98588203835 No Longer Active Marta Yokum TRANSIT CLERK Active BIOTIN 1000 MCG ORAL TABLET Take one daily BIOTIN 11286369168 Active Rikki Harms PA Active VITAMIN C 500 MG ORAL CAPSULE Take one daily ASCORBIC ACID 79720528106 Active Rikki Harms PA Active BENZONATATE 200 MG ORAL CAPSULE One capsule tid. BENZONATATE 31443963325 No Longer Active Rikki Harms PA Active FLONASE ALLERGY RELIEF 50 MCG/ACT NASAL SUSPENSION spray twice in each nostril one time daily FLUTICASONE PROPIONATE 93881076216 No Longer Active Rikki Harms PA Active TUSSIONEX PENNKINETIC ER 10-8 MG/5ML ORAL SUSPENSION EXTENDED RELEASE 5ml po q12hr PRN Cough HYDROCOD POLST-CHLORPHEN POLST 88693025002 No Longer Active Rikki Harms PA Active NIACIN ER 500 MG ORAL TABLET EXTENDED RELEASE Take one twice daily NIACIN 59216350734 Active Rikki Harms PA Active ALBUTEROL SULFATE (2.5 MG/3ML) 0.083% INHALATION NEBULIZATION SOLUTION one vial per nebulizer every 4-6 hours as needed ALBUTEROL SULFATE 94028542996 No Longer Active Rikki Harms PA Active MEDROL 4 MG ORAL TABLET THERAPY PACK 6 tabs on day 1, 5 tabs on day 2, 4 tabs on day 3, 3 tabs on day 4, 2 tabs on day 5, 1 tab on day 6 METHYLPREDNISOLONE 55176134231 No Longer Active Rikki Harms PA Active LEVAQUIN 750 MG ORAL TABLET 1 po qd x 7 days LEVOFLOXACIN 06502044452 No Longer Active Rikki Harms PA Active LEVAQUIN 500 MG ORAL TABLET Take one tablet daily LEVOFLOXACIN 00380105132 No Longer Active Rikki Harms PA Active LEVAQUIN 500 MG ORAL TABLET 1 tablet by mouth daily LEVOFLOXACIN 56128796719 No Longer Active Marta Viramontes APRN Active CHERATUSSIN AC 100-10 MG/5ML ORAL SYRUP 1 tsp by mouth every 4 hours as needed for cough GUAIFENESIN-CODEINE 86100873902 No Longer Active Rikki Harms PA Active MUPIROCIN 2 % EXTERNAL OINTMENT Use in each nostril in am and pm MUPIROCIN 00259901863 No Longer Active Rikki Harms PA Active DOXYCYCLINE HYCLATE 100 MG ORAL CAPSULE Take one bid DOXYCYCLINE HYCLATE 46582118476 No Longer Active Rikki Harms PA Active CLARITIN 10 MG ORAL TABLET 1prn LORATADINE 02636166276 No Longer Active Jocelyne Naff GLASS SANDER BELT Active ASPIRIN 81 MG ORAL TABLET 1qd ASPIRIN 58586996625 No Longer Active Jocelyne Naff GLASS SANDER BELT Active DOXYCYCLINE HYCLATE 100 MG ORAL CAPSULE 1 cap by mouth twice daily DOXYCYCLINE HYCLATE 94714294650 No Longer Active Rikki Harms PA Active VITAMIN D3 08977 UNIT ORAL CAPSULE 1 pill by mouth weekly, for vitamin D deficiency CHOLECALCIFEROL 25563176336 No Longer Active Jennifer Chun MD PhD Active ANASTROZOLE 1 MG ORAL TABLET Take one by mouth daily ANASTROZOLE 48292422173 Active Jennifer Chun MD PhD Active ZITHROMAX 250 MG ORAL TABLET 2 po today, then 1 po q days 2-5 AZITHROMYCIN 69967867349 No Longer Active Rikki Harms PA Active MECLIZINE HCL 25 MG ORAL TABLET 1 prn MECLIZINE HCL 34831125256 No Longer Active Solomon Alamo MD Active CHERATUSSIN AC SYRUP prn as directed GUAIFENESIN- CODEINE SYRP 17771372076 No Longer Active Rikki Harms PA Active MULTIVITAMINS TABS 1qd MULTIPLE VITAMIN 51542860748 No Longer Active Rikki Harms PA Active OMEPRAZOLE 20 MG ORAL CAPSULE DELAYED RELEASE 1 PO Q D OMEPRAZOLE 13439531036 Active Jocelyne Naff GLASS SANDER BELT Active ZITHROMAX Z-CAROLYN 250 MG ORAL TABLET 2x1day,[id number] AZITHROMYCIN 41693176342 No Longer Active Jocelyne Naff GLASS SANDER BELT Active MULTIVITAMINS TABS 1qd MULTIVITAMINS TABS MULTIPLE VITAMIN Inactive CHERATUSSIN AC SYRUP prn as directed CHERATUSSIN AC SYRUP GUAIFENESIN-CODEINE SYRP Inactive MECLIZINE HCL 25 MG ORAL TABLET 1 prn MECLIZINE HCL 25 MG ORAL TABLET 939558 MECLIZINE HCL Inactive ASPIRIN 81 MG ORAL TABLET 1qd ASPIRIN 81 MG ORAL TABLET 380179 ASPIRIN Inactive CLARITIN 10 MG ORAL TABLET 1prn CLARITIN 10 MG ORAL TABLET 458574 LORATADINE Inactive DOXYCYCLINE HYCLATE 100 MG ORAL CAPSULE Take one bid DOXYCYCLINE HYCLATE 100 MG ORAL CAPSULE 3726713 DOXYCYCLINE HYCLATE Inactive MUPIROCIN 2 % EXTERNAL OINTMENT Use in each nostril in am and pm MUPIROCIN 2 % EXTERNAL OINTMENT 182588 MUPIROCIN Inactive CHERATUSSIN AC 100-10 MG/5ML ORAL SYRUP 1 tsp by mouth every 4 hours as needed for cough CHERATUSSIN AC 100-10 MG/5ML ORAL SYRUP 396632 GUAIFENESIN-CODEINE Inactive LEVAQUIN 500 MG ORAL TABLET 1 tablet by mouth daily LEVAQUIN 500 MG ORAL TABLET 942370 LEVOFLOXACIN Inactive LEVAQUIN 500 MG ORAL TABLET Take one tablet daily LEVAQUIN 500 MG ORAL TABLET 617830 LEVOFLOXACIN Inactive LEVAQUIN 750 MG ORAL TABLET 1 po qd x 7 days LEVAQUIN 750 MG ORAL TABLET 172367 LEVOFLOXACIN Inactive ALBUTEROL SULFATE (2.5 MG/3ML) 0.083% INHALATION NEBULIZATION SOLUTION one vial per nebulizer every 4-6 hours as needed ALBUTEROL SULFATE (2.5 MG/3ML) 0.083% INHALATION NEBULIZATION SOLUTION 483672 ALBUTEROL SULFATE Inactive TUSSIONEX PENNKINETIC ER 10-8 MG/5ML ORAL SUSPENSION EXTENDED RELEASE 5ml po q12hr PRN Cough TUSSIONEX PENNKINETIC ER 10-8 MG/5ML ORAL SUSPENSION EXTENDED RELEASE HYDROCOD POLST-CHLORPHEN POLST Inactive FLONASE ALLERGY RELIEF 50 MCG/ACT NASAL SUSPENSION spray twice in each nostril one time daily FLONASE ALLERGY RELIEF 50 MCG/ ACT NASAL SUSPENSION 3269633 FLUTICASONE PROPIONATE Inactive BENZONATATE 200 MG ORAL CAPSULE One capsule tid. BENZONATATE 200 MG ORAL CAPSULE 864195 BENZONATATE Inactive CEPHALEXIN 500 MG ORAL CAPSULE Take one four times a day CEPHALEXIN 500 MG ORAL CAPSULE 289073 CEPHALEXIN Inactive TUSSIONEX PENNKINETIC ER 10-8 MG/5ML ORAL SUSPENSION EXTENDED RELEASE 5ml po q12hr PRN Cough TUSSIONEX PENNKINETIC ER 10-8 MG/5ML ORAL SUSPENSION EXTENDED RELEASE HYDROCOD POLST-CHLORPHEN POLST Inactive TESSALON PERLES 100 MG ORAL CAPSULE 1 to 2 tablets by mouth 3 times daily as needed for cough TESSALON PERLES 100 MG ORAL CAPSULE 799295 BENZONATATE Inactive PROAIR HFA 108 (90 BASE) MCG/ACT INHALATION AEROSOL SOLUTION 2 puffs four times a day as needed PROAIR HFA 108 (90 BASE) MCG/ACT INHALATION AEROSOL SOLUTION ALBUTEROL SULFATE Inactive ZITHROMAX Z-CAROLYN 250 MG ORAL TABLET 2x1day,3c8tbaf ZITHROMAX Z-CAROLYN 250 MG ORAL TABLET 827859 AZITHROMYCIN Inactive ZITHROMAX 250 MG ORAL TABLET 2 po today, then 1 po q days 2-5 ZITHROMAX 250 MG ORAL TABLET 158782 AZITHROMYCIN Inactive VITAMIN D3 72062 UNIT ORAL CAPSULE 1 pill by mouth weekly, for vitamin D deficiency VITAMIN D3 77812 UNIT ORAL CAPSULE CHOLECALCIFEROL Inactive DOXYCYCLINE HYCLATE 100 MG ORAL CAPSULE 1 cap by mouth twice daily DOXYCYCLINE HYCLATE 100 MG ORAL CAPSULE 2954537 DOXYCYCLINE HYCLATE Inactive MEDROL 4 MG ORAL TABLET THERAPY PACK 6 tabs on day 1, 5 tabs on day 2, 4 tabs on day 3, 3 tabs on day 4, 2 tabs on day 5, 1 tab on day 6 MEDROL 4 MG ORAL TABLET THERAPY PACK 587969 METHYLPREDNISOLONE Inactive KEFLEX 500 MG ORAL CAPSULE 1 po qid KEFLEX 500 MG ORAL CAPSULE 892777 CEPHALEXIN Inactive MEDROL 4 MG ORAL TABLET THERAPY PACK 6 tabs on day 1, 5 tabs on day 2, 4 tabs on day 3, 3 tabs on day 4, 2 tabs on day 5, 1 tab on day 6 MEDROL 4 MG ORAL TABLET THERAPY PACK 847396 METHYLPREDNISOLONE Inactive AUGMENTIN 875-125 MG ORAL TABLET 1 po BID x 10 days AUGMENTIN 875-125 MG ORAL TABLET 724216 AMOXICILLIN-POT CLAVULANATE Inactive AUGMENTIN 875-125 MG ORAL TABLET Take one tablet twice a day with food 04/25 AUGMENTIN 875-125 MG ORAL TABLET 672780 AMOXICILLIN-POT CLAVULANATE Inactive DOXYCYCLINE HYCLATE 100 MG ORAL CAPSULE 1 cap by mouth twice daily DOXYCYCLINE HYCLATE 100 MG ORAL CAPSULE 9858892 DOXYCYCLINE HYCLATE Inactive Vital Signs Date Name [...] Measured Encounters Code Encounter Date Provider Facility CPT-66214 Level 3 Est. Patient 22:53:06 INFORMATION TECHNOLOGY SECURITY ANALYST Marta Viramontes [facility]-66812 Level 3 Est. Patient 16:07:34 CDT Marta Ana M [facility] CPT-75064 Level 3 Est. Patient 15:39:01 [facility] Est[facility] Patient 17:31:07 CDT Marta Viramontes [facility]-99719 Level 3 Est. Patient 05:11:40 CDT Rikki GRANADOS [facility]-07342 Level 2 Est. Patient 14:30:43 INFORMATION TECHNOLOGY SECURITY ANALYST Marta Viramontes [facility] CPT-60829 Level 4 Est. Patient 09:14:36 INFORMATION TECHNOLOGY SECURITY ANALYST Rikki GRANADOS [facility] CPT-36253 Level 2 Est. Patient 09:07:32 CDT Marta Caalluisblas [facility] CPT-75436 Level 4 Est. Patient 11:55:00 CDT Rikki GRANADOS [facility] CPT-38332 Level 3 Est. Patient 13:25:16 CDT Jennifer Chun MD PhD [facility]-11415 Level 3 Est. Patient 17:31:22 CDT Solomon Alamo MD [facility]-48858 Level 3 Est. Patient 08:02:14 CDT Solomon Alamo MD [facility]-54765 Level 3 Est. Patient 17:23:53 CDT Rikki Stearns [facility] CPT-08363 Level 3 Est. Patient 11:22:41 CDT Darryn Hearn [facility] Procedures Code Procedure Name Date Entry Date Standard Description CPT-12662 Venipuncture Draw Fee 16:09:39 CDT CPT-38933 Venipuncture Draw Fee 12:43:48 INFORMATION TECHNOLOGY SECURITY ANALYST CPT-82010 BMP - LAB USE ONLY 10:32:33 INFORMATION TECHNOLOGY SECURITY ANALYST CPT-18520 Venipuncture Draw Fee 10:32:33 INFORMATION TECHNOLOGY SECURITY ANALYST CPT-59575 Magnesium - LAB USE ONLY 09:54:30 CDT CPT-45356 TSH - LAB USE ONLY 09:54:30 CDT CPT-37716 Lipid - LAB USE ONLY 09:54:30 CDT CPT-26698 Venipuncture Draw Fee 09:54:29 CDT CPT-88701 Venipuncture Draw Fee 18:27:04 CDT CPT-42556 Chest 2V Frontal and Lat 10:57:00 INFORMATION TECHNOLOGY SECURITY ANALYST CPT-71211 Venipuncture Draw Fee 10:56:59 INFORMATION TECHNOLOGY SECURITY ANALYST CPT-30572 Venipuncture Draw Fee 09:22:28 INFORMATION TECHNOLOGY SECURITY ANALYST CPT-44696 Chest 2V Frontal and Lat 09:22:27 INFORMATION TECHNOLOGY SECURITY ANALYST CPT-I/D I/D Abscess 09:43:13 CDT CPT-42556 Venipuncture Draw Fee 08:16:46 INFORMATION TECHNOLOGY SECURITY ANALYST CPT-75072 Venipuncture Draw Fee 08:18:55 INFORMATION TECHNOLOGY SECURITY ANALYST CPT-99862 Venipuncture Draw Fee 08:31:18 INFORMATION TECHNOLOGY SECURITY ANALYST CPT-47235 Venipuncture Draw Fee 11:42:52 INFORMATION TECHNOLOGY SECURITY ANALYST CPT-86026 Venipuncture Draw Fee 13:26:37 INFORMATION TECHNOLOGY SECURITY ANALYST CPT-39791 Venipuncture Draw Fee 09:23:38 INFORMATION TECHNOLOGY SECURITY ANALYST CPT-000 Give Appropriate Tetanus Booster 10:23:50 CDT CPT-01378 Bone Density 08:28:45 CDT CPT-17627 Bone Density 11:35:15 CDT CPT-PV Prev. Care Visit 12:19:00 CDT CPT-68914 Venipuncture Draw Fee 15:02:58 CDT
--- OUTSIDE RECORDS SUMMARY | 2018-01-19 07:10 | XMS REPORT | Clinical Summary ---
Author Author Admin, QUITA Organization [facility] [employer] Address Unknown Phone Unavailable Allergies, Adverse Reactions, Alerts Allergy Name Reaction Description Start Date Severity Status Provider SULFA facial swelling Critical Active Jocelyne Naff AUXILIARY EQUIPMENT TENDER Conditions or Problems Problem Name Problem Code Onset Date Status Entry Date Provider Comment Standard Description Annotate G E R D 530.81 Active Jocelyne Naff AUXILIARY EQUIPMENT TENDER Esophageal reflux FH COLON CANCER V16.0 Active Jocelyne Naff AUXILIARY EQUIPMENT TENDER Family history of malignant neoplasm of [...] (natural) Breast cancer 174.9 Resolved Marta Viramontes LOG CHAIN WORKER Malignant neoplasm of breast (female), unspecified Vitamin [...] Ingrown toenail, left 703.0 Resolved Marta Yokum LOG CHAIN WORKER Ingrowing nail cellulitis, finger, right 681.00 Resolved Marta Yokum LOG CHAIN WORKER Cellulitis and abscess of finger, unspecified Cough 786.2 Resolved Marta Yokum LOG CHAIN WORKER Cough Bronchitis, acute 466.0 Active Marta Yokum LOG CHAIN WORKER Acute bronchitis Breast microcalcification ICD-793.81 Inactive Jennifer Chun MD PhD Abnormal Mammogram ICD-793.80 Inactive Jennifer Chun MD PhD Breast cancer ICD-174.9 Inactive Marta Yokum LOG CH[employer] WORKER Soft tissue infection ICD-528.9 Inactive Rikki Harms PA Abscess, skin ICD-682.9 Inactive Rikki Harms PA Cellulitis, 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 Rikki Harms PA Rash ICD-782.1 Inactive Rikki Harms PA Upper respiratory infection, acute ICD-465.9 Inactive Rikki Harms PA Chemotherapy ICD-V58.11 Inactive Rikki Harms PA Cough, chronic ICD-786.2 Inactive Rikki Harms PA Ingrown toenail, left ICD-703.0 Inactive Marta Yokum LOG CHAIN WORKER cellulitis, finger, right ICD-681.00 Inactive Marta Yokum LOG CHAIN WORKER Cough ICD-786.2 Inactive Marta Yokum LOG CHAIN WORKER Medication List Medication Instructions Start Date Stop Date Generic Name NDC Status Provider Patient Instruction PROAIR HFA 108 (90 BASE) MCG/ACT INHALATION AEROSOL SOLUTION 2 puffs four times a day as needed ALBUTEROL SULFATE 17719584500 No Longer Active Marta Yokum LOG CHAIN WORKER Active DOXYCYCLINE HYCLATE 100 MG ORAL CAPSULE 1 cap by mouth twice daily DOXYCYCLINE HYCLATE 63764830984 No Longer Active Marta Yokum LOG CHAIN WORKER Active PROAIR HFA 108 (90 BASE) MCG/ACT INHALATION AEROSOL SOLUTION 2 puffs four times a day as needed ALBUTEROL SULFATE 00056442718 Active Marta Yokum LOG CHAIN WORKER Active AUGMENTIN 875-125 MG ORAL TABLET Take one tablet twice a day with food 04/25 AMOXICILLIN-POT CLAVULANATE 03646942027 No Longer Active Marta Yokum LOG CHAIN WORKER Active TESSALON PERLES 100 MG ORAL CAPSULE 1 to 2 tablets by mouth 3 times daily as needed for cough BENZONATATE 81714892480 No Longer Active Marta Yokum LOG CHAIN WORKER Active AUGMENTIN 875-125 MG ORAL TABLET 1 po BID x 10 days AMOXICILLIN-POT CLAVULANATE 07314191062 No Longer Active Marta Yokum LOG CHAIN WORKER Active MEDROL 4 MG ORAL TABLET THERAPY PACK 6 tabs on day 1, 5 tabs on day 2, 4 tabs on day 3, 3 tabs on day 4, 2 tabs on day 5, 1 tab on day 6 METHYLPREDNISOLONE 39681554907 No Longer Active Marta Yokum LOG CHAIN WORKER Active TUSSIONEX PENNKINETIC ER 10-8 MG/5ML ORAL SUSPENSION EXTENDED RELEASE 5ml po q12hr PRN Cough HYDROCOD POLST-CHLORPHEN POLST 80396598191 Active Marta Yokum LOG CHAIN WORKER Active KEFLEX 500 MG ORAL CAPSULE 1 po qid CEPHALEXIN 97531498223 No Longer Active Marta Yokum LOG CHAIN WORKER Active B COMPLEX 50 ORAL TABLET EXTENDED RELEASE B COMPLEX VITAMINS 77144534841 Active Marta Yokum LOG CHAIN WORKER Active TUSSIONEX PENNKINETIC ER 10-8 MG/5ML ORAL SUSPENSION EXTENDED RELEASE 5ml po q12hr PRN Cough HYDROCOD POLST-CHLORPHEN POLST 30815625941 No Longer Active Marta Yokum LOG CHAIN WORKER Active VITAMIN D3 00793 UNIT ORAL CAPSULE 1 qWeek x 4 months for vitamin D deficiency CHOLECALCIFEROL 27265158319 Active Marta Yokum LOG CHAIN WORKER Active CEPHALEXIN 500 MG ORAL CAPSULE Take one four times a day CEPHALEXIN 48288415182 No Longer Active Marta Yokum LOG CHAIN WORKER Active BIOTIN 1000 MCG ORAL TABLET Take one daily BIOTIN 35361923305 Active Rikki Harms PA Active VITAMIN C 500 MG ORAL CAPSULE Take one daily ASCORBIC ACID 54441315875 Active Rikki Harms PA Active BENZONATATE 200 MG ORAL CAPSULE One capsule tid. BENZONATATE 56145752482 No Longer Active Rikki Harms PA Active FLONASE ALLERGY RELIEF 50 MCG/ACT NASAL SUSPENSION spray twice in each nostril one time daily FLUTICASONE PROPIONATE 68145288186 No Longer Active Rikki Harms PA Active TUSSIONEX PENNKINETIC ER 10-8 MG/5ML ORAL SUSPENSION EXTENDED RELEASE 5ml po q12hr PRN Cough HYDROCOD POLST-CHLORPHEN POLST 79774060351 No Longer Active Rikki Harms PA Active NIACIN ER 500 MG ORAL TABLET EXTENDED RELEASE Take one twice daily NIACIN 25001405171 Active Rikki Harms PA Active ALBUTEROL SULFATE (2.5 MG/3ML) 0.083% INHALATION NEBULIZATION SOLUTION one vial per nebulizer every 4-6 hours as needed ALBUTEROL SULFATE 83715114712 No Longer Active Rikki Harms PA Active MEDROL 4 MG ORAL TABLET THERAPY PACK 6 tabs on day 1, 5 tabs on day 2, 4 tabs on day 3, 3 tabs on day 4, 2 tabs on day 5, 1 tab on day 6 METHYLPREDNISOLONE 84999743247 No Longer Active Rikki Harms PA Active LEVAQUIN 750 MG ORAL TABLET 1 po qd x 7 days LEVOFLOXACIN 02411183118 No Longer Active Rikki Harms PA Active LEVAQUIN 500 MG ORAL TABLET Take one tablet daily LEVOFLOXACIN 38794666613 No Longer Active Rikki Harms PA Active LEVAQUIN 500 MG ORAL TABLET 1 tablet by mouth daily LEVOFLOXACIN 23588912027 No Longer Active Marta Viramontes APRN Active CHERATUSSIN AC 100-10 MG/5ML ORAL SYRUP 1 tsp by mouth every 4 hours as needed for cough GUAIFENESIN-CODEINE 56863468265 No Longer Active Rikki Harms PA Active MUPIROCIN 2 % EXTERNAL OINTMENT Use in each nostril in am and pm MUPIROCIN 87226536874 No Longer Active Rikki Harms PA Active DOXYCYCLINE HYCLATE 100 MG ORAL CAPSULE Take one bid DOXYCYCLINE HYCLATE 84104108343 No Longer Active Rikki Harms PA Active CLARITIN 10 MG ORAL TABLET 1prn LORATADINE 59508492293 No Longer Active Jocelyne Naff AUXILIARY EQUIPMENT TENDER Active ASPIRIN 81 MG ORAL TABLET 1qd ASPIRIN 14081964700 No Longer Active Jocelyne Naff AUXILIARY EQUIPMENT TENDER Active DOXYCYCLINE HYCLATE 100 MG ORAL CAPSULE 1 cap by mouth twice daily DOXYCYCLINE HYCLATE 78526311130 No Longer Active Rikki Harms PA Active VITAMIN D3 47675 UNIT ORAL CAPSULE 1 pill by mouth weekly, for vitamin D deficiency CHOLECALCIFEROL 49552389717 No Longer Active Jennifer Chun MD PhD Active ANASTROZOLE 1 MG ORAL TABLET Take one by mouth daily ANASTROZOLE 46975065452 Active Jennifer Chun MD PhD Active ZITHROMAX 250 MG ORAL TABLET 2 po today, then 1 po q days 2-5 AZITHROMYCIN 52647179637 No Longer Active Rikki Harms PA Active MECLIZINE HCL 25 MG ORAL TABLET 1 prn MECLIZINE HCL 20483470089 No Longer Active Solomon Aalmo MD Active CHERATUSSIN AC SYRUP prn as directed GUAIFENESIN- CODEINE SYRP 89236070839 No Longer Active Rikki Harms PA Active MULTIVITAMINS TABS 1qd MULTIPLE VITAMIN 45839924245 No Longer Active Rikki Harms PA Active OMEPRAZOLE 20 MG ORAL CAPSULE DELAYED RELEASE 1 PO Q D OMEPRAZOLE 56147247588 Active Jocelyne Naff AUXILIARY EQUIPMENT TENDER Active ZITHROMAX Z-CAROLYN 250 MG ORAL TABLET 2x1day,5w2razs AZITHROMYCIN 73851998604 No Longer Active Jocelyne Naff AUXILIARY EQUIPMENT TENDER Active MULTIVITAMINS TABS 1qd MULTIVITAMINS TABS MULTIPLE VITAMIN Inactive CHERATUSSIN AC SYRUP prn as directed CHERATUSSIN AC SYRUP GUAIFENESIN-CODEINE SYRP Inactive MECLIZINE HCL 25 MG ORAL TABLET 1 prn MECLIZINE HCL 25 MG ORAL TABLET 406709 MECLIZINE HCL Inactive ASPIRIN 81 MG ORAL TABLET 1qd ASPIRIN 81 MG ORAL TABLET 201398 ASPIRIN Inactive CLARITIN 10 MG ORAL TABLET 1prn CLARITIN 10 MG ORAL TABLET 895648 LORATADINE Inactive DOXYCYCLINE HYCLATE 100 MG ORAL CAPSULE Take one bid DOXYCYCLINE HYCLATE 100 MG ORAL CAPSULE 1101132 DOXYCYCLINE HYCLATE Inactive MUPIROCIN 2 % EXTERNAL OINTMENT Use in each nostril in am and pm MUPIROCIN 2 % EXTERNAL OINTMENT 628081 MUPIROCIN Inactive CHERATUSSIN AC 100-10 MG/5ML ORAL SYRUP 1 tsp by mouth every 4 hours as needed for cough CHERATUSSIN AC 100-10 MG/5ML ORAL SYRUP 286118 GUAIFENESIN-CODEINE Inactive LEVAQUIN 500 MG ORAL TABLET 1 tablet by mouth daily LEVAQUIN 500 MG ORAL TABLET 640063 LEVOFLOXACIN Inactive LEVAQUIN 500 MG ORAL TABLET Take one tablet daily LEVAQUIN 500 MG ORAL TABLET 529890 LEVOFLOXACIN Inactive LEVAQUIN 750 MG ORAL TABLET 1 po qd x 7 days LEVAQUIN 750 MG ORAL TABLET 478446 LEVOFLOXACIN Inactive ALBUTEROL SULFATE (2.5 MG/3ML) 0.083% INHALATION NEBULIZATION SOLUTION one vial per nebulizer every 4-6 hours as needed ALBUTEROL SULFATE (2.5 MG/3ML) 0.083% INHALATION NEBULIZATION SOLUTION 748160 ALBUTEROL SULFATE Inactive TUSSIONEX PENNKINETIC ER 10-8 MG/5ML ORAL SUSPENSION EXTENDED RELEASE 5ml po q12hr PRN Cough TUSSIONEX PENNKINETIC ER 10-8 MG/5ML ORAL SUSPENSION EXTENDED RELEASE HYDROCOD POLST-CHLORPHEN POLST Inactive FLONASE ALLERGY RELIEF 50 MCG/ACT NASAL SUSPENSION spray twice in each nostril one time daily FLONASE ALLERGY RELIEF 50 MCG/ ACT NASAL SUSPENSION 4830953 FLUTICASONE PROPIONATE Inactive BENZONATATE 200 MG ORAL CAPSULE One capsule tid. BENZONATATE 200 MG ORAL CAPSULE 132064 BENZONATATE Inactive CEPHALEXIN 500 MG ORAL CAPSULE Take one four times a day CEPHALEXIN 500 MG ORAL CAPSULE 029087 CEPHALEXIN Inactive TUSSIONEX PENNKINETIC ER 10-8 MG/5ML ORAL SUSPENSION EXTENDED RELEASE 5ml po q12hr PRN Cough TUSSIONEX PENNKINETIC ER 10-8 MG/5ML ORAL SUSPENSION EXTENDED RELEASE HYDROCOD POLST-CHLORPHEN POLST Inactive TESSALON PERLES 100 MG ORAL CAPSULE 1 to 2 tablets by mouth 3 times daily as needed for cough TESSALON PERLES 100 MG ORAL CAPSULE 587431 BENZONATATE Inactive PROAIR HFA 108 (90 BASE) MCG/ACT INHALATION AEROSOL SOLUTION 2 puffs four times a day as needed PROAIR HFA 108 (90 BASE) MCG/ACT INHALATION AEROSOL SOLUTION ALBUTEROL SULFATE Inactive ZITHROMAX Z-CAROLYN 250 MG ORAL TABLET 2x1day,1i3fvbo ZITHROMAX Z-CAROLYN 250 MG ORAL TABLET 616189 AZITHROMYCIN Inactive ZITHROMAX 250 MG ORAL TABLET 2 po today, then 1 po q days 2-5 ZITHROMAX 250 MG ORAL TABLET 814195 AZITHROMYCIN Inactive VITAMIN D3 76118 UNIT ORAL CAPSULE 1 pill by mouth weekly, for vitamin D deficiency VITAMIN D3 31828 UNIT ORAL CAPSULE CHOLECALCIFEROL Inactive DOXYCYCLINE HYCLATE 100 MG ORAL CAPSULE 1 cap by mouth twice daily DOXYCYCLINE HYCLATE 100 MG ORAL CAPSULE 2381592 DOXYCYCLINE HYCLATE Inactive MEDROL 4 MG ORAL TABLET THERAPY PACK 6 tabs on day 1, 5 tabs on day 2, 4 tabs on day 3, 3 tabs on day 4, 2 tabs on day 5, 1 tab on day 6 MEDROL 4 MG ORAL TABLET THERAPY PACK 846907 METHYLPREDNISOLONE Inactive KEFLEX 500 MG ORAL CAPSULE 1 po qid KEFLEX 500 MG ORAL CAPSULE 175878 CEPHALEXIN Inactive MEDROL 4 MG ORAL TABLET THERAPY PACK 6 tabs on day 1, 5 tabs on day 2, 4 tabs on day 3, 3 tabs on day 4, 2 tabs on day 5, 1 tab on day 6 MEDROL 4 MG ORAL TABLET THERAPY PACK 562661 METHYLPREDNISOLONE Inactive AUGMENTIN 875-125 MG ORAL TABLET 1 po BID x 10 days AUGMENTIN 875-125 MG ORAL TABLET 862304 AMOXICILLIN-POT CLAVULANATE Inactive AUGMENTIN 875-125 MG ORAL TABLET Take one tablet twice a day with food 04/25 AUGMENTIN 875-125 MG ORAL TABLET 779259 AMOXICILLIN-POT CLAVULANATE Inactive DOXYCYCLINE HYCLATE 100 MG ORAL CAPSULE 1 cap by mouth twice daily DOXYCYCLINE HYCLATE 100 MG ORAL CAPSULE 6981542 DOXYCYCLINE HYCLATE Inactive Vital Signs Date Name [...] Measured Encounters Code Encounter Date Provider Facility CPT-78715 Level 3 Est. Patient 22:53:06 AMUSEMENT PARK ENTERTAINER Matra Viramontes [facility]-35161 Level 3 Est. Patient 16:07:34 CDT Marta Ana M [facility] CPT-10647 Level 3 Est. Patient 15:39:01 [facility] Est[facility] Patient 17:31:[address] [facility] Patient 05:11:40 CDT Rikki GRANADOS [facility]-03546 Level 2 Est. Patient 14:30:43 AMUSEMENT PARK ENTERTAINER Martacarlos Viramontes [facility] CPT-07979 Level 4 Est. Patient 09:14:36 AMUSEMENT PARK ENTERTAINER Rikki GRANADOS [facility] CPT-01412 Level 2 Est. Patient 09:07:32 CDT Marta Caalluisblas [facility] CPT-84500 Level 4 Est. Patient 11:55:00 CDT Rikki GRANADOS [facility] CPT-99803 Level 3 Est. Patient 13:25:16 CDT Jennifer Chun MD PhD [facility] CPT-18811 Level 3 Est. Patient 17:31:22 CDT Solomon Alamo MD [facility] CPT-92764 Level 3 Est. Patient 08:02:14 CDT Solomon Alamo MD [facility]-61552 Level 3 Est. Patient 17:23:53 CDT Rikki Stearns [facility] CPT-73122 Level 3 Est. Patient 11:22:41 CDT Darryn Hearn [facility] Procedures Code Procedure Name Date Entry Date Standard Description CPT-34376 Venipuncture Draw Fee 16:09:39 CDT CPT-03101 Venipuncture Draw Fee 12:43:48 [employer]MENT [employer]ARK ENTERTAIN[employer] CPT-15808 BMP - LAB USE ONLY 10:32:33 [employer]USEMENT PARK ENTERTAINER CPT-49465 Venipuncture Draw Fee 10:32:33 AMUSEMENT PARK ENTERTAINER CPT-67211 Magnesium - LAB USE ONLY 09:54:30 CDT CPT-77324 TSH - LAB USE ONLY 09:54:30 CDT CPT-06536 Lipid - LAB USE ONLY 09:54:30 CDT CPT-20166 Venipuncture Draw Fee 09:54:29 CDT CPT-04289 Venipuncture Draw Fee 18:27:04 CDT CPT-24467 Chest 2V Frontal and Lat 10:57:00 [employer]USEMENT PARK ENTERTAINER CPT-89008 Venipuncture Draw Fee 10:56:59 AMUSEMENT PARK ENTERTAINER CPT-06062 Venipuncture Draw Fee 09:22:28 AMUSEMENT PARK ENTERTAINER CPT-15634 Chest 2V Frontal and Lat 09:22:27 AMUSEMENT PARK ENTERTAINER CPT-I/D I/D Abscess 09:43:13 CDT CPT-95055 Venipuncture Draw Fee 08:16:46 AMUSEMENT PARK ENTERTAINER CPT-58924 Venipuncture Draw Fee 08:18:55 AMUSEMENT PARK ENTERTAINER CPT-01742 Venipuncture Draw Fee 08:31:18 AMUSEMENT PARK ENTERTAINER CPT-87049 Venipuncture Draw Fee 11:42:52 [employer]USEMENT PARK ENTERTAINER CPT-57907 Venipuncture Draw Fee 13:26:37 AMUSEMENT PARK ENTERTAINER CPT-85579 Venipuncture Draw Fee 09:23:38 AMUSEMENT PARK ENTERTAINER CPT-000 Give Appropriate Tetanus Booster 10:23:50 CDT CPT-77893 Bone Density 08:28:45 CDT CPT-68492 Bone Density 11:35:15 CDT CPT-PV Prev. Care Visit 12:19:00 CDT CPT-26520 Venipuncture Draw Fee 15:02:58 CDT
--- OUTSIDE RECORDS SUMMARY | 2018-01-19 07:10 | XMS REPORT | Clinical Summary ---
Author Author Admin, E Organization [facility] Address Unknown Phone Unavailable Allergies, Adverse Reactions, Alerts Allergy Name Reaction Description Start Date Severity Status Provider SULFA facial swelling Critical Active Jocelyne Naff [employer] Conditions or Problems Problem Name Problem Code Onset Date Status Entry Date Provider Comment Standard Description Annotate G E R D 530.81 Active Jocelyne Naff [employer] Esophageal reflux FH COLON CANCER V16.0 Active Jocelyne Naff [employer] Family history of malignant neoplasm of gastrointestinal [...] GRANADOS Cellulitis and abscess of unspecified sites Abnormal Mammogram ICD-793.80 Inactive Jennifer Chun MD PhD Breast microcalcification ICD-793.81 Inactive Jennifer Chnu MD PhD Medication List Medication Instructions Start Date Stop Date Generic Name NDC Status Provider Patient Instruction DOXYCYCLINE HYCLATE 100 MG CAP 1 cap by mouth twice daily DOXYCYCLINE HYCLATE 64224271475 Active Rikki GRANADOS Active VITAMIN D3 25733 UNIT CAPS 1 pill by mouth weekly, for vitamin D deficiency CHOLECALCIFEROL 29625626434 Active Jennifer Chun MD PhD Active ANASTROZOLE 1 MG ORAL TABS Take one by mouth daily ANASTROZOLE 24283701500 Active Jennifer Chun MD PhD Active ZITHROMAX 250 MG TAB 2 po today, then 1 po q days 2-5 AZITHROMYCIN 42294332540 No Longer Active Rikki Daryn GRANADOS Active MECLIZINE HCL 25 MG TABS 1 prn MECLIZINE HCL 53190504207 No Longer Active Solomon Alamo MD Active CHERATUSSIN AC SYRP prn as directed GUAIFENESIN- CODEINE SYRP 56953312031 No Longer Active Rikki Daryn PA Active MULTIVITAMINS TABS 1qd MULTIPLE VITAMIN 39994072273 No Longer Active Rikki Daryn PA Active CLARITIN 10 MG TABS 1prn LORATADINE 57159176319 Active Jocelyne Naff [employer]OMOBILE LOCATOR Active ASPIRIN 81 MG TABS 1qd ASPIRIN 91346566774 Active Jocelyne Naff [employer]OMOBILE LOCATOR Active OMEPRAZOLE 20 MG CPDR 1 PO Q D OMEPRAZOLE 85177221702 Active Rikki Daryn PA Active ZITHROMAX Z-CAROLYN 250 MG TABS 2x1day,[id number] AZITHROMYCIN 91720566483 No Longer Active Jocelyne Lovell [employer]OMOBILE LOCATOR Active MULTIVITAMINS TABS 1qd MULTIVITAMINS TABS MULTIPLE VITAMIN Inactive CHERATUSSIN AC SYRP prn as directed CHERATUSSIN AC SYRP GUAIFENESIN-CODEINE SYRP Inactive MECLIZINE HCL 25 MG TABS 1 prn MECLIZINE HCL 25 MG TABS 323593 MECLIZINE HCL Inactive ZITHROMAX Z-CAROLYN 250 MG TABS 2x1day,[id number] ZITHROMAX Z-CAROLYN 250 MG TABS 3586436 AZITHROMYCIN Inactive ZITHROMAX 250 MG TAB 2 po today, then 1 po q days 2-5 ZITHROMAX 250 MG TAB [id number] AZITHROMYCIN Inactive Vital Signs Date Name Value [...] Description Lab Report: CBC W/DIFF - Hematology red blood cell distribution width 14.5 % 11.6-14.8 platelet count 131 10^3/MM^3 10*3/mm3 157-506 0612/12/10 erythrocyte (RBC) count 4.93 10^6/MM^3 10*6/mm3 4.04-5.48 lymphocytes as percent of blood leukocytes 65.9 % 20.5-51.1 monocytes as percent of blood leukocytes 25.7 % 1.7-9.3 neutrophils as percent of blood leukocytes 1.4 % 42.2-75.2 leukocyte count, blood 1.3 10^3/MM^3 10*3/mm3 4.6-10.2 mean corpuscular hemoglobin concentration, RBC 33.5 G/DL % 31.8- 35.4 mean corpuscular hemoglobin, RBC 30.1 pg 27.0-31.2 mean corpuscular volume, RBC 90 fL 80-97 hematocrit, blood 44.3 % 36.0-46.0 hemoglobin, blood 14.8 g/dL 12.0-16.0 leukocyte count, blood 28.6 10^3/MM^3 10*3/mm3 4.6-10.2 platelet count 237 10^3/MM^3 10*3/mm3 362-301 2668/12/12 neutrophils as percent of blood leukocytes 19.0 [...] blood cell distribution width 14.2 % 11.6-14.8 leukocyte count, blood 6.9 10^3/MM^3 10*3/mm3 4.6-10.2 platelet count 360 10^3/MM^3 10*3/mm3 303-185 2961/12/23 neutrophils as percent of blood leukocytes 57.3 [...] blood cell distribution width 14.4 % 11.6-14.8 leukocyte count, blood 5.3 10^3/MM^3 10*3/mm3 4.6-10.2 platelet count 222 10^3/MM^3 10*3/mm3 278-865 4537/12/31 neutrophils as percent of blood leukocytes 8.8 [...] blood cell distribution width 14.9 % 11.6-14.8 leukocyte count, blood 11.7 10^3/MM^3 10*3/mm3 4.6-10.2 platelet count 191 10^3/MM^3 10*3/mm3 672-433 3808/01/07 neutrophils as percent of blood leukocytes 67.9 [...] blood cell distribution width 15.5 % 11.6-14.8 leukocyte count, blood 9.8 10^3/MM^3 10*3/mm3 4.6-10.2 hematocrit, blood 39.0 % 36.0-46.0 mean corpuscular volume, RBC 90 fL 80-97 mean corpuscular hemoglobin, RBC 30.0 pg 27.0-31.2 mean corpuscular hemoglobin concentration, RBC 33.3 G/DL % 31.8- 35.4 red blood cell distribution width 15.9 % 11.6-14.8 platelet count 195 10^3/MM^3 10*3/mm3 996-038 7545/01/20 neutrophils as percent of blood leukocytes 78.4 % 42.2-75.2 monocytes as percent of blood leukocytes 7.4 % 1.7-9.3 lymphocytes as percent of blood leukocytes 10.0 % 20.5-51.1 erythrocyte (RBC) count 4.32 10^6/MM^3 10*6/mm3 4.04-5.48 hemoglobin, blood 13.0 g/dL 12.0-16.0 leukocyte count, blood 11.9 10^3/MM^3 10*3/mm3 4.6-10.2 platelet count 278 10^3/MM^3 10*3/mm3 413-192 0484/01/28 neutrophils as percent of blood leukocytes 53.5 [...] blood cell distribution width 16.4 % 11.6-14.8 leukocyte count, blood 8.5 10^3/MM^3 10*3/mm3 4.6-10.2 platelet count 326 10^3/MM^3 10*3/mm3 962-719 5304/02/04 neutrophils as percent of blood leukocytes 66.7 [...] blood cell distribution width 17.3 % 11.6-14.8 leukocyte count, blood 2.3 10^3/MM^3 10*3/mm3 4.6-10.2 platelet count 240 10^3/MM^3 10*3/mm3 885-916 5893/02/10 neutrophils as percent of blood leukocytes 63.7 [...] blood cell distribution width 18.0 % 11.6-14.8 leukocyte count, blood 3.4 10^3/MM^3 10*3/mm3 4.6-10.2 platelet count 308 10^3/MM^3 10*3/mm3 080-067 3965/02/17 neutrophils as percent of blood leukocytes 20.2 [...] blood cell distribution width 18.8 % 11.6-14.8 leukocyte count, blood 6.6 10^3/MM^3 10*3/mm3 4.6-10.2 platelet count 433 10^3/MM^3 10*3/mm3 532-436 1801/02/25 hematocrit, blood 36.9 % 36.0-46.0 mean corpuscular volume, RBC 92 fL 80-97 mean corpuscular hemoglobin, RBC 30.5 pg 27.0-31.2 mean corpuscular hemoglobin concentration, RBC 33.2 G/DL % 31.8- 35.4 red blood cell distribution width 19.2 % 11.6-14.8 neutrophils as percent of blood leukocytes 61.9 % 42.2-75.2 monocytes as percent of blood leukocytes 8.9 % 1.7-9.3 lymphocytes as percent of blood leukocytes 27.4 % 20.5-51.1 erythrocyte (RBC) count 4.02 10^6/MM^3 10*6/mm3 4.04-5.48 hemoglobin, blood 12.2 g/dL 12.0-16.0 Lab Report: CBC W/DIFF, Comp. Metabolic Panel - Chemistry sodium, serum 141 mmol/L 904-074 9841/01/14 potassium, serum 4.9 mmol/L 3.5-5.2 chloride, serum 107 mmol/L 98-107 carbon dioxide, venous blood 28.9 mmol/L 21.0-32.0 blood glucose 100 mg/dL 65-110 urea nitrogen, blood 19 mg/dL 7-18 creatinine, serum 0.90 mg/dL 0.60-1.30 alanine aminotransferase (SGPT), serum 28 U/L 12-78 aspartate aminotransferase (SGOT), serum 24 U/L 15-37 calcium, serum 8.2 mg/dL 8.5-10.1 bilirubin, serum, total 0.40 mg/dL 0.00-1.00 sodium, serum 144 mmol/L 663-401 3206/12/16 potassium, serum 4.5 mmol/L 3.5-5.2 chloride, serum 107 mmol/L 98-107 carbon dioxide, venous blood 31.4 mmol/L 21.0-32.0 blood glucose 104 mg/dL 65-110 urea nitrogen, blood 17 mg/dL 7-18 creatinine, serum 1.10 mg/dL 0.60-1.30 alanine aminotransferase (SGPT), serum 25 U/L 12-78 aspartate aminotransferase (SGOT), serum 24 U/L 15-37 calcium, serum 8.4 mg/dL 8.5-10.1 bilirubin, serum, total 0.20 mg/dL 0.00-1.00 Lab Report: CBC W/DIFF, Comp. Metabolic Panel - Hematology neutrophils as percent of blood leukocytes 56.5 [...] blood cell distribution width 14.4 % 11.6-14.8 leukocyte count, blood 19.5 10^3/MM^3 10*3/mm3 4.6-10.2 platelet count 239 10^3/MM^3 10*3/mm3 180-955 5575/01/14 leukocyte count, blood 6.7 10^3/MM^3 10*3/mm3 4.6-10.2 platelet count 376 10^3/MM^3 10*3/mm3 460-526 0675/01/14 neutrophils as percent of blood leukocytes 66.4 [...] blood cell distribution width 15.6 % 11.6-14.8 Lab Report: CBC, Comp. Metabolic Panel, Lipid Panel - Chemistry sodium, serum 140 mmol/L 703-993 5476/07/13 potassium, serum 4.5 mmol/L 3.5-5.2 chloride, serum 106 mmol/L 98-107 carbon dioxide, venous blood 27.7 mmol/L 21.0-32.0 blood glucose 105 mg/dL 65-110 urea nitrogen, blood 14 mg/dL 7-18 creatinine, serum 0.90 mg/dL 0.60-1.30 alanine aminotransferase (SGPT), serum 29 U/L 12-78 aspartate aminotransferase (SGOT), serum 22 U/L 15-37 calcium, serum 9.4 mg/dL 8.5-10.1 bilirubin, serum, total 0.70 mg/dL 0.00-1.00 cholesterol, serum 160 mg/dL 921-384 4669/07/13 triglyceride, serum, fasting 63 mg/dL 30-200 HDL cholesterol, serum 68 mg/dL 32-96 LDL cholesterol, serum 79 mg/dL 0-130 Lab Report: CBC, Comp. Metabolic Panel, Lipid Panel - Hematology erythrocyte (RBC) count 4.79 10^6/MM^3 10*6/mm3 4.04-5.48 leukocyte count, blood 5.0 10^3/MM^3 10*3/mm3 4.6-10.2 mean corpuscular hemoglobin concentration, RBC 33.0 G/DL % 31.8- 35.4 red blood cell distribution width 15.7 % 11.6-14.8 platelet count 263 10^3/MM^3 10*3/mm3 937-751 3888/07/13 hemoglobin, blood 13.9 g/dL 12.0-16.0 hematocrit, blood 42.2 % 36.0-46.0 mean corpuscular volume, RBC 88 fL 80-97 mean corpuscular hemoglobin, RBC 29.1 pg 27.0-31.2 Lab Report: Comp. Metabolic Panel - Chemistry sodium, serum 141 mmol/L 470-014 2079/02/10 potassium, serum 5.2 mmol/L 3.5-5.2 chloride, serum 106 mmol/L 98-107 carbon dioxide, venous blood 27.8 mmol/L 21.0-32.0 blood glucose 111 mg/dL 65-110 urea nitrogen, blood 18 mg/dL 7-18 creatinine, serum 0.90 mg/dL 0.60-1.30 alanine aminotransferase (SGPT), serum 29 U/L 12-78 aspartate aminotransferase (SGOT), serum 21 U/L 15-37 calcium, serum 8.3 mg/dL 8.5-10.1 bilirubin, serum, total 0.40 mg/dL 0.00-1.00 Lab Report: VITAMIN D, 25-HYDROXY/85526 - Chemistry vitamin D 25-hydroxy, serum 24 ng/mL 30-100 Encounters Code Encounter Date Provider Facility CPT-39912 Level 3 Est. Patient 13:25:16 CDT Jennifer Chun MD PhD [facility] CPT-35234 Level 3 Est. Patient 17:31:22 CDT Solomon Alamo MD [facility] CPT-60764 Level 3 Est. Patient 08:02:14 CDT Solomon Alamo MD [facility] CPT-86889 Level 3 Est. Patient 17:23:53 CDT Rikki Stearns [facility] CPT-66089 Level 3 Est. Patient 11:22:41 CDT aDrryn Hearn [facility] Procedures Code Procedure Name Date Entry Date Standard Description CPT-I/D I/D Abscess 09:43:13 CDT CPT-08691 Venipuncture Draw Fee 08:16:46 [employer] CPT-11812 Venipuncture Draw Fee 08:18:55 [employer]CR[employer]E ENGINE[employer] CPT-20499 Venipuncture Draw Fee 08:31:18 [employer]CR[employer]E ENGINE[employer] CPT-93669 Venipuncture Draw Fee 11:42:52 [employer]CR[employer]E ENGINE[employer] CPT-91855 Venipuncture Draw Fee 13:26:37 [employer]CRETE ENGINEER CPT-94766 Venipuncture Draw Fee 09:23:38 [employer]CRETE ENGINE[employer] CPT-000 Give Appropriate Tetanus Booster 10:23:50 CDT CPT-54632 Bone Density 08:28:45 CDT CPT-78377 Bone Density 11:35:15 CDT CPT-PV Prev. Care Visit 12:19:00 CDT CPT-57148 Venipuncture Draw Fee 15:02:58 CDT
--- OUTSIDE RECORDS SUMMARY | 2018-01-19 07:11 | XMS REPORT | Clinical Summary ---
Author Author Admin, E Organization [facility] Address Unknown Phone Unavailable Allergies, Adverse Reactions, Alerts Allergy Name Reaction Description Start Date Severity Status Provider SULFA facial swelling Critical Active Jocelyne Naff BLOOD SPLATTER ANALYST Conditions or Problems Problem Name Problem Code Onset Date Status Entry Date Provider Comment Standard Description Annotate G E R D 530.81 Active Jocelyne Naff BLOOD SPLATTER ANALYST Esophageal reflux FH COLON CANCER V16.0 Active Jocelyne Naff BLOOD SPLATTER ANALYST Family history of malignant neoplasm of gastrointestinal tract ESOPHAGEAL STRICTURE 530.3 Active Darryn Hearn PA Stricture and stenosis of esophagus CAROTID ARTERY STENOSIS, RIGHT 433.10 Active Rikki Stearns PA Occlusion and stenosis of carotid artery, without mention of cerebral infarction HEALTH SCREENING V70.0 Active Rose Darnell BLOOD SPLATTER ANALYST Routine general medical examination at a [...] unspecified sites Rash 782.1 Active Marta Viramontes [employer]ESALES SUPERVISOR Rash and other nonspecific skin eruption Adenocarcinoma, [...] 5, 1 tab on day 6 METHYLPREDNISOLONE 98889605303 No Longer Active Rikki GRANADOS Active ALBUTEROL SULFATE 0.083 % NEBU SOLN one vial per nebulizer every 4-6 hours as needed ALBUTEROL SULFATE 36839496175 Active Rikki Harms PA Active LEVAQUIN 750 MG TABS 1 po qd x 7 days LEVOFLOXACIN 43032891481 No Longer Active Rikki Harms PA Active LEVAQUIN 500 MG ORAL TABS Take one tablet daily LEVOFLOXACIN 83419635916 No Longer Active Rikki Harms PA Active PROAIR HFA 108 (90 BASE) MCG/ACT AERS 2 puffs four times a day as needed 2014 ALBUTEROL SULFATE 36358871160 Active Marta Yokum TELESALES SUPERVISOR Active TUSSIONEX PENNKINETIC ER 10-8 MG/5ML LQCR 5ml po q12hr PRN Cough HYDROCOD POLST-CHLORPHEN POLST 74150093163 Active Rikki Harms PA Active FLONASE ALLERGY RELIEF 50 MCG/ACT NASAL SUSP spray twice in each nostril one time daily FLUTICASONE PROPIONATE 19648875180 Active Marta Yokum TELESALES SUPERVISOR Active LEVAQUIN 500 MG TAB 1 tablet by mouth daily LEVOFLOXACIN 16318875897 No Longer Active Marta Yokum TELESALES SUPERVISOR Active BENZONATATE 200 MG ORAL CAPS One capsule tid. BENZONATATE 78635480463 Active Marta Yokum TELESALES SUPERVISOR Active CHERATUSSIN AC 100-10 MG/5ML SYRP 1 tsp by mouth every 4 hours as needed for cough GUAIFENESIN-CODEINE 58581375819 No Longer Active Rikki Harms PA Active MUPIROCIN 2 % EXT OINT Use in each nostril in am and pm MUPIROCIN 54042869197 No Longer Active Rikki Harms PA Active DOXYCYCLINE HYCLATE 100 MG ORAL CAPS Take one bid DOXYCYCLINE HYCLATE 37363672907 No Longer Active Rikki Harms PA Active CLARITIN 10 MG TABS 1prn LORATADINE 76591629187 No Longer Active Jocelyne Naff BLOOD SPLATTER ANALYST Active ASPIRIN 81 MG TABS 1qd ASPIRIN 75176962017 No Longer Active Jocelyne Naff BLOOD SPLATTER ANALYST Active DOXYCYCLINE HYCLATE 100 MG CAP 1 cap by mouth twice daily DOXYCYCLINE HYCLATE 74543091725 No Longer Active Rikki Harms PA Active VITAMIN D3 94853 UNIT CAPS 1 pill by mouth weekly, for vitamin D deficiency CHOLECALCIFEROL 33828412246 No Longer Active Jennifer Chun MD PhD Active ANASTROZOLE 1 MG ORAL TABS Take one by mouth daily ANASTROZOLE 71367040012 Active Jennifer Chun MD PhD Active ZITHROMAX 250 MG TAB 2 po today, then 1 po q days 2-5 AZITHROMYCIN 46996825179 No Longer Active Rikki Harms PA Active MECLIZINE HCL 25 MG TABS 1 prn MECLIZINE HCL 89037529171 No Longer Active Solomon Alamo MD Active CHERATUSSIN AC SYRP prn as directed GUAIFENESIN- CODEINE SYRP 04721943624 No Longer Active Rikki Harms PA Active MULTIVITAMINS TABS 1qd MULTIPLE VITAMIN 71444032932 No Longer Active Rikki Harms PA Active OMEPRAZOLE 20 MG CPDR 1 PO Q D OMEPRAZOLE 39077761453 Active Rikki Harms PA Active ZITHROMAX Z-CAROLYN 250 MG TABS 2x1day,[id number] AZITHROMYCIN 87273635153 No Longer Active Jocelyne Naff BLOOD SPLATTER ANALYST Active MULTIVITAMINS TABS 1qd MULTIVITAMINS TABS MULTIPLE VITAMIN Inactive CHERATUSSIN AC SYRP prn as directed CHERATUSSIN AC SYRP GUAIFENESIN-CODEINE SYRP Inactive MECLIZINE HCL 25 MG TABS 1 prn MECLIZINE HCL 25 MG TABS 522774 MECLIZINE HCL Inactive ASPIRIN 81 MG TABS 1qd ASPIRIN 81 MG TABS 068135 ASPIRIN Inactive CLARITIN 10 MG TABS 1prn CLARITIN 10 MG TABS 930044 LORATADINE Inactive DOXYCYCLINE HYCLATE 100 MG ORAL CAPS Take one bid DOXYCYCLINE HYCLATE 100 MG ORAL CAPS 6616659 DOXYCYCLINE HYCLATE Inactive MUPIROCIN 2 % EXT OINT Use in each nostril in am and pm MUPIROCIN 2 % EXT OINT 210259 MUPIROCIN Inactive CHERATUSSIN AC 100-10 MG/5ML SYRP 1 tsp by mouth every 4 hours as needed for cough CHERATUSSIN AC 100-10 MG/5ML SYRP 581569 GUAIFENESIN-CODEINE Inactive LEVAQUIN 500 MG TAB 1 tablet by mouth daily LEVAQUIN 500 MG TAB 562680 LEVOFLOXACIN Inactive LEVAQUIN 500 MG ORAL TABS Take one tablet daily LEVAQUIN 500 MG ORAL TABS 444439 LEVOFLOXACIN Inactive LEVAQUIN 750 MG TABS 1 po qd x 7 days LEVAQUIN 750 MG TABS 039961 LEVOFLOXACIN Inactive ZITHROMAX Z-CAROLYN 250 MG TABS 2x1day,8k1ffoc ZITHROMAX Z-CAROLYN 250 MG TABS 0658211 AZITHROMYCIN Inactive ZITHROMAX 250 MG TAB 2 po today, then 1 po q days 2-5 ZITHROMAX 250 MG TAB 5648575 AZITHROMYCIN Inactive VITAMIN D3 90940 UNIT CAPS 1 pill by mouth weekly, for vitamin D deficiency VITAMIN D3 16141 UNIT CAPS CHOLECALCIFEROL Inactive DOXYCYCLINE HYCLATE 100 MG CAP 1 cap by mouth twice daily DOXYCYCLINE HYCLATE 100 MG CAP 8336920 DOXYCYCLINE HYCLATE Inactive MEDROL (CAROLYN) 4 MG [...] % 11.6-14.8 platelet count 143 10^3/MM^3 10*3/mm3 990-254 8396/11/25 leukocyte count, blood 2.1 10^3/MM^3 10*3/mm3 4.6-10.2 [...] % 11.6-14.8 platelet count 139 10^3/MM^3 10*3/mm3 084-469 5606/12/02 leukocyte count, blood 6.7 10^3/MM^3 10*3/mm3 4.6-10.2 [...] % 11.6-14.8 platelet count 258 10^3/MM^3 10*3/mm3 132-723 2236/12/09 leukocyte count, blood 5.3 10^3/MM^3 10*3/mm3 4.6-10.2 [...] % 11.6-14.8 platelet count 240 10^3/MM^3 10*3/mm3 905-720 3999/12/16 leukocyte count, blood 3.2 10^3/MM^3 10*3/mm3 4.6-10.2 [...] % 11.6-14.8 platelet count 158 10^3/MM^3 10*3/mm3 073-782 6892/12/18 leukocyte count, blood 8.8 10^3/MM^3 10*3/mm3 4.6-10.2 [...] % 11.6-14.8 platelet count 207 10^3/MM^3 10*3/mm3 149-619 4971/12/23 leukocyte count, blood 6.2 10^3/MM^3 10*3/mm3 4.6-10.2 [...] % 11.6-14.8 platelet count 183 10^3/MM^3 10*3/mm3 254-657 8535/11/11 leukocyte count, blood 2.0 10^3/MM^3 10*3/mm3 4.6-10.2 [...] % 11.6-14.8 platelet count 203 10^3/MM^3 10*3/mm3 224-527 1757/12/30 leukocyte count, blood 5.2 10^3/MM^3 10*3/mm3 4.6-10.2 [...] % 11.6-14.8 platelet count 200 10^3/MM^3 10*3/mm3 438-533 0372/03/02 leukocyte count, blood 5.1 10^3/MM^3 10*3/mm3 4.6-10.2 [...] Panel - Chemistry sodium, serum 142 mmol/L 377-082 1052/02/04 carbon dioxide, venous blood 24.9 mmol/L 21.0-32.0 potassium, serum 4.1 mmol/L 3.5-5.2 chloride, serum 106 mmol/L 98-107 blood glucose 103 mg/dL 65-110 urea nitrogen, blood 25 mg/dL 7-18 creatinine, serum 0.83 mg/dL 0.55-1.30 alanine aminotransferase (SGPT), serum 38 U/L 12-78 aspartate aminotransferase (SGOT), serum 26 U/L 15-37 calcium, serum 8.7 mg/dL 8.5-10.1 bilirubin, serum, total 0.30 mg/dL 0.00-1.00 sodium, serum 140 mmol/L 199-431 3471/01/13 carbon dioxide, venous blood 26.4 mmol/L 21.0-32.0 potassium, serum 4.2 mmol/L 3.5-5.2 chloride, serum 104 mmol/L 98-107 blood glucose 101 mg/dL 65-110 urea nitrogen, blood 18 mg/dL 7-18 creatinine, serum 0.80 mg/dL 0.55-1.30 alanine aminotransferase (SGPT), serum 28 U/L aspartate aminotransferase (SGOT), serum 24 U/L 15-37 calcium, serum 8.7 mg/dL 8.5-10.1 bilirubin, serum, total 0.50 mg/dL 0.00-1.00 sodium, serum 138 mmol/L 774-834 3141/11/04 carbon dioxide, venous blood 27.7 mmol/L 21.0-32.0 potassium, serum 4.9 mmol/L 3.5-5.2 chloride, serum 104 mmol/L 98-107 blood glucose 92 mg/dL 65-110 urea nitrogen, blood 24 mg/dL 7-18 creatinine, serum 0.95 mg/dL 0.55-1.30 alanine aminotransferase (SGPT), serum 34 U/L aspartate aminotransferase (SGOT), serum 23 U/L - calcium, serum 8.9 mg/dL 8.5-10.1 bilirubin, serum, total 0.70 mg/dL 0.00-1.00 sodium, serum 140 mmol/L 555-740 4066/01/06 carbon dioxide, venous blood 27.2 mmol/L 21.0-32.0 [...] % 11.6-14.8 platelet count 289 10^3/MM^3 10*3/mm3 892-633 9181/01/06 leukocyte count, blood 4.1 10^3/MM^3 10*3/mm3 4.6-10.2 [...] % 11.6-14.8 platelet count 297 10^3/MM^3 10*3/mm3 558-689 0012/02/04 leukocyte count, blood 4.2 10^3/MM^3 10*3/mm3 4.6-10.2 [...] % 11.6-14.8 platelet count 271 10^3/MM^3 10*3/mm3 223-358 1468/11/04 leukocyte count, blood 3.8 10^3/MM^3 10*3/mm3 4.6-10.2 [...] Panel - Chemistry sodium, serum 140 mmol/L 383-840 7871/07/13 potassium, serum 4.5 mmol/L 3.5-5.2 chloride, serum 106 mmol/L 98-107 carbon dioxide, venous blood 27.7 mmol/L 21.0-32.0 blood glucose 105 mg/dL 65-110 urea nitrogen, blood 14 mg/dL 7-18 creatinine, serum 0.90 mg/dL 0.60-1.30 alanine aminotransferase (SGPT), serum 29 U/L 12-78 aspartate aminotransferase (SGOT), serum 22 U/L 15-37 calcium, serum 9.4 mg/dL 8.5-10.1 bilirubin, serum, total 0.70 mg/dL 0.00-1.00 cholesterol, serum 160 mg/dL 815-060 7059/07/13 triglyceride, serum, fasting 63 mg/dL 30-200 HDL [...] Panel - Chemistry sodium, serum 141 mmol/L 826-237 5541/11/18 carbon dioxide, venous blood 26.2 mmol/L 21.0-32.0 potassium, serum 4.4 mmol/L 3.5-5.2 chloride, serum 106 mmol/L 98-107 blood glucose 102 mg/dL 65-110 urea nitrogen, blood 24 mg/dL 7-18 creatinine, serum 0.77 mg/dL 0.55-1.30 alanine aminotransferase (SGPT), serum 30 U/L 12-78 aspartate aminotransferase (SGOT), serum 15 U/L 15-37 calcium, serum 8.3 mg/dL 8.5-10.1 bilirubin, serum, total 0.30 mg/dL 0.00-1.00 sodium, serum 139 mmol/L 612-471 1523/11/25 carbon dioxide, venous blood 27.9 mmol/L 21.0-32.0 potassium, serum 4.7 mmol/L 3.5-5.2 chloride, serum 105 mmol/L 98-107 blood glucose 94 mg/dL 65-110 urea nitrogen, blood 21 mg/dL 7-18 creatinine, serum 0.79 mg/dL 0.55-1.30 alanine aminotransferase (SGPT), serum 40 U/L aspartate aminotransferase (SGOT), serum 22 U/L 15-37 calcium, serum 8.5 mg/dL 8.5-10.1 bilirubin, serum, total 0.80 mg/dL 0.00-1.00 sodium, serum 142 mmol/L 631-941 1830/12/09 carbon dioxide, venous blood 28.5 mmol/L 21.0-32.0 potassium, serum 5.0 mmol/L 3.5-5.2 chloride, serum 109 mmol/L 98-107 blood glucose 91 mg/dL 65-110 urea nitrogen, blood 27 mg/dL - creatinine, serum 0.88 mg/dL 0.55-1.30 alanine aminotransferase (SGPT), serum 31 U/L aspartate aminotransferase (SGOT), serum 18 U/L 15-37 calcium, serum 8.9 mg/dL 8.5-10.1 bilirubin, serum, total 0.40 mg/dL 0.00-1.00 sodium, serum 140 mmol/L 295-288 7722/12/16 carbon dioxide, venous blood 25.4 mmol/L 21.0-32.0 potassium, serum 4.1 mmol/L 3.5-5.2 chloride, serum 104 mmol/L 98-107 blood glucose 110 mg/dL 65-110 urea nitrogen, blood 24 mg/dL - creatinine, serum 0.87 mg/dL 0.55-1.30 alanine aminotransferase (SGPT), serum 35 U/L aspartate aminotransferase (SGOT), serum 21 U/L 15-37 calcium, serum 8.4 mg/dL 8.5-10.1 bilirubin, serum, total 0.50 mg/dL 0.00-1.00 sodium, serum 141 mmol/L 810-205 6829/12/02 carbon dioxide, venous blood 25.9 mmol/L 21.0-32.0 potassium, serum 4.7 mmol/L 3.5-5.2 chloride, serum 106 mmol/L 98-107 blood glucose 78 mg/dL 65-110 urea nitrogen, blood 24 mg/dL 7-18 creatinine, serum 0.75 mg/dL 0.55-1.30 alanine aminotransferase (SGPT), serum 31 U/L aspartate aminotransferase (SGOT), serum 20 U/L - calcium, serum 8.7 mg/dL 8.5-10.1 bilirubin, serum, total 0.30 mg/dL 0.00-1.00 sodium, serum 139 mmol/L 513-959 9117/12/30 carbon dioxide, venous blood 28.2 mmol/L 21.0-32.0 potassium, serum 3.9 mmol/L 3.5-5.2 chloride, serum 105 mmol/L 98-107 blood glucose 91 mg/dL 65-110 urea nitrogen, blood 17 mg/dL 7-18 creatinine, serum 0.81 mg/dL 0.55-1.30 alanine aminotransferase (SGPT), serum 29 U/L aspartate aminotransferase (SGOT), serum 22 U/L 15-37 calcium, serum 8.8 mg/dL 8.5-10.1 bilirubin, serum, total 0.50 mg/dL 0.00-1.00 sodium, serum 141 mmol/L 764-063 7496/11/11 carbon dioxide, venous blood 26.8 mmol/L 21.0-32.0 potassium, serum 4.2 mmol/L 3.5-5.2 chloride, serum 106 mmol/L 98-107 blood glucose 95 mg/dL 65-110 urea nitrogen, blood 18 mg/dL 7-18 creatinine, serum 0.70 mg/dL 0.55-1.30 alanine aminotransferase (SGPT), serum 33 U/L -78 aspartate aminotransferase (SGOT), serum 22 U/L 15-37 calcium, serum 8.5 mg/dL 8.5-10.1 bilirubin, serum, total 0.30 mg/dL 0.00-1.00 sodium, serum 143 mmol/L 809-188 9873/12/23 carbon dioxide, venous blood 24.6 mmol/L 21.0-32.0 potassium, serum 4.1 mmol/L 3.5-5.2 chloride, serum 107 mmol/L 98-107 blood glucose 98 mg/dL 65-110 urea nitrogen, blood 22 mg/dL 7-18 creatinine, serum 0.77 mg/dL 0.55-1.30 alanine aminotransferase (SGPT), serum 28 U/L -78 aspartate aminotransferase (SGOT), serum 20 U/L 15-37 calcium, serum 8.6 mg/dL 8.5-10.1 bilirubin, serum, total 0.30 mg/dL 0.00-1.00 Lab Report: VITAMIN D, 25-HYDROXY/54978 - Chemistry vitamin D 25-hydroxy, serum 24 ng/mL 30-100 Encounters Code Encounter Date Provider Facility CPT-83505 Level 2 Est. Patient 14:30:43 [employer] Marta Viramontes [facility] CPT-07881 Level 4 Est. Patient 09:14:36 [employer] Rikki GRANADOS [facility] CPT-29986 Level 2 Est. Patient 09:07:32 CDT Marta Viramontes TELESALES SUPERVISOR [facility] CPT-47122 Level 4 Est. Patient 11:55:00 CDT Rikki GRANADOS [facility] CPT-77085 Level 3 Est. Patient 13:25:16 CDT Jennifer Chun MD PhD [facility] CPT-53284 Level 3 Est. Patient 17:31:22 CDT Solomon Alamo MD [facility] CPT-11725 Level 3 Est. Patient 08:02:14 CDT Solomon Alamo MD [facility] CPT-07326 Level 3 Est. Patient 17:23:53 CDT Rikki GRANADOS [facility] CPT-70448 Level 3 Est. Patient 11:22:41 CDT Darryn Hearn [facility] Procedures Code Procedure Name Date Entry Date Standard Description CPT-53606 Chest 2V Frontal and Lat 10:57:00 [employer] CPT-41071 Venipuncture Draw Fee 10:56:59 [employer] CPT-93548 Venipuncture Draw Fee 09:22:28 [employer] CPT-73801 Chest 2V Frontal and Lat 09:22:27 [employer] CPT-I/D I/D Abscess 09:43:13 CDT CPT-41090 Venipuncture Draw Fee 08:16:46 [employer] CPT-75743 Venipuncture Draw Fee 08:18:55 [employer] CPT-48280 Venipuncture Draw Fee 08:31:18 [employer] CPT-73775 Venipuncture Draw Fee 11:42:52 [employer] CPT-19716 Venipuncture Draw Fee 13:26:37 [employer] CPT-08720 Venipuncture Draw Fee 09:23:38 [employer] CPT-000 Give Appropriate Tetanus Booster 10:23:50 CDT CPT-16964 Bone Density 08:28:45 CDT CPT-18505 Bone Density 11:35:15 CDT CPT-PV Prev. Care Visit 12:19:00 CDT CPT-12505 Venipuncture Draw Fee 15:02:58 CDT
--- OUTSIDE RECORDS SUMMARY | 2018-01-19 07:12 | XMS REPORT | Clinical Summary ---
Author Author Admin, E Organization [facility] Address Unknown Phone Unavailable Allergies, Adverse Reactions, Alerts Allergy Name Reaction Description Start Date Severity Status Provider SULFA facial swelling Critical Active Jocelyne Naff TANK SETTER HELPER Conditions or Problems Problem Name Problem Code Onset Date Status Entry Date Provider Comment Standard Description Annotate G E R D 530.81 Active Jocelyne Naff TANK SETTER HELPER Esophageal reflux FH COLON CANCER V16.0 Active Jocelyne Naff TANK SETTER HELPER Family history of malignant neoplasm of gastrointestinal [...] Ingrown toenail, left 703.0 Resolved Marta Yokum DENTAL SCHEDULING COORDINATOR Ingrowing nail cellulitis, finger, right 681.00 Active Marta Yokum DENTAL SCHEDULING COORDINATOR Cellulitis and abscess of finger, unspecified Breast microcalcification ICD-793.81 Inactive Jennifer Chun MD PhD Abnormal Mammogram ICD-793.80 Inactive Jennifer Chun MD PhD Soft tissue infection ICD-528.9 Inactive Rikki Stearns PA Abscess, skin ICD-682.9 Inactive Rikki Stearns PA Cellulitis, 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 Rikki Daryn PA Rash ICD-782.1 Inactive Rikki Daryn PA Upper respiratory infection, acute ICD-465.9 Inactive Rikki Daryn GRANADOS Chemotherapy ICD-V58.11 Inactive Rikki Daryn GRANADOS Cough, chronic ICD-786.2 Inactive Rikki Daryn GRANADOS Ingrown toenail, left ICD-703.0 Inactive Marta Viramontes [place] Medication List Medication Instructions Start Date Stop Date Generic Name NDC Status Provider Patient Instruction KEFLEX 500 MG CAP 1 po qid CEPHALEXIN 52399690894 No Longer Active Marta Viramontes APRN Active B COMPLEX 50 ORAL CR-TABS B COMPLEX VITAMINS 89132107294 Active Marta Viramontes APRN Active TUSSIONEX PENNKINETIC ER 10-8 MG/5ML LQCR 5ml po q12hr PRN Cough HYDROCOD POLST-CHLORPHEN POLST 26113451860 No Longer Active Marta Viramontes APRN Active VITAMIN D3 48371 UNIT CAPS 1 qWeek x 4 months for vitamin D deficiency 04/09 CHOLECALCIFEROL 59289267482 Active Marta Viramontes DENTAL SCHEDULING COORDINATOR Active CEPHALEXIN 500 MG ORAL CAPS Take one four times a day CEPHALEXIN 91697715154 No Longer Active Martacarlos Viramontes DENTAL SCHEDULING COORDINATOR Active BIOTIN 1000 MCG ORAL TABS Take one daily BIOTIN 88540498859 Active Rikki GRANADOS Active VITAMIN C 500 MG ORAL CAPS Take one daily ASCORBIC ACID 80473624972 Active Rikki GRANADOS Active BENZONATATE 200 MG ORAL CAPS One capsule tid. BENZONATATE 20104655987 No Longer Active Rikki GRANADOS Active FLONASE ALLERGY RELIEF 50 MCG/ACT NASAL SUSP spray twice in each nostril one time daily FLUTICASONE PROPIONATE 77821698993 No Longer Active Rikki Harms PA Active TUSSIONEX PENNKINETIC ER 10-8 MG/5ML LQCR 5ml po q12hr PRN Cough HYDROCOD POLST-CHLORPHEN POLST 92273401060 No Longer Active Rikki Harms PA Active NIACIN ER 500 MG ORAL CR-TABS Take one twice daily NIACIN 90254848055 Active Rikki Harms PA Active ALBUTEROL SULFATE 0.083 % NEBU SOLN one vial per nebulizer every 4-6 hours as needed ALBUTEROL SULFATE 52994029694 No Longer Active Rikki Harms PA Active MEDROL (CAROLYN) 4 MG TABS 6 tabs on day 1, 5 tabs on day 2, 4 tabs on day 3, 3 tabs on day 4, 2 tabs on day 5, 1 tab on day 6 METHYLPREDNISOLONE 98903794514 No Longer Active Rikki Harms PA Active LEVAQUIN 750 MG TABS 1 po qd x 7 days LEVOFLOXACIN 30438728393 No Longer Active Rikki Harms PA Active LEVAQUIN 500 MG ORAL TABS Take one tablet daily LEVOFLOXACIN 14818653335 No Longer Active Rikki Harms PA Active PROAIR HFA 108 (90 BASE) MCG/ACT AERS 2 puffs four times a day as needed 2014 ALBUTEROL SULFATE 49474022690 Active Marta Yokum DENTAL SCHEDULING COORDINATOR Active LEVAQUIN 500 MG TAB 1 tablet by mouth daily LEVOFLOXACIN 04096395025 No Longer Active Marta Yokum DENTAL SCHEDULING COORDINATOR Active CHERATUSSIN AC 100-10 MG/5ML SYRP 1 tsp by mouth every 4 hours as needed for cough GUAIFENESIN-CODEINE 23185953579 No Longer Active Rikki Harms PA Active MUPIROCIN 2 % EXT OINT Use in each nostril in am and pm MUPIROCIN 75503584398 No Longer Active Rikki Harms PA Active DOXYCYCLINE HYCLATE 100 MG ORAL CAPS Take one bid DOXYCYCLINE HYCLATE 02202949093 No Longer Active Rikki Harms PA Active CLARITIN 10 MG TABS 1prn LORATADINE 58228340306 No Longer Active Jocelyne Naff TANK SETTER HELPER Active ASPIRIN 81 MG TABS 1qd ASPIRIN 20370199256 No Longer Active Jocelyne Naff TANK SETTER HELPER Active DOXYCYCLINE HYCLATE 100 MG CAP 1 cap by mouth twice daily DOXYCYCLINE HYCLATE 94193476682 No Longer Active Rikki Harms PA Active VITAMIN D3 18149 UNIT CAPS 1 pill by mouth weekly, for vitamin D deficiency CHOLECALCIFEROL 53485667623 No Longer Active Jennifer Chun MD PhD Active ANASTROZOLE 1 MG ORAL TABS Take one by mouth daily ANASTROZOLE 47161407603 Active Jennifer Chun MD PhD Active ZITHROMAX 250 MG TAB 2 po today, then 1 po q days 2-5 AZITHROMYCIN 73073303774 No Longer Active Rikki Harms PA Active MECLIZINE HCL 25 MG TABS 1 prn MECLIZINE HCL 06058205332 No Longer Active Solomon Alamo MD Active CHERATUSSIN AC SYRP prn as directed GUAIFENESIN- CODEINE SYRP 40193813144 No Longer Active Rikki Harms PA Active MULTIVITAMINS TABS 1qd MULTIPLE VITAMIN 52769731804 No Longer Active Rikki Harms PA Active OMEPRAZOLE 20 MG CPDR 1 PO Q D OMEPRAZOLE 03197222747 Active Jocelyne Naff TANK SETTER HELPER Active ZITHROMAX Z-CAROLYN 250 MG TABS 2x1day,7a5lzve AZITHROMYCIN 26501584402 No Longer Active Jocelyne Naff TANK SETTER HELPER Active MULTIVITAMINS TABS 1qd MULTIVITAMINS TABS MULTIPLE VITAMIN Inactive CHERATUSSIN AC SYRP prn as directed CHERATUSSIN AC SYRP GUAIFENESIN-CODEINE SYRP Inactive MECLIZINE HCL 25 MG TABS 1 prn MECLIZINE HCL 25 MG TABS 163189 MECLIZINE HCL Inactive ASPIRIN 81 MG TABS 1qd ASPIRIN 81 MG TABS ASPIRIN Inactive CLARITIN 10 MG TABS 1prn CLARITIN 10 MG TABS 817569 LORATADINE Inactive DOXYCYCLINE HYCLATE 100 MG ORAL CAPS Take one bid DOXYCYCLINE HYCLATE 100 MG ORAL CAPS 2924157 DOXYCYCLINE HYCLATE Inactive MUPIROCIN 2 % EXT OINT Use in each nostril in am and pm MUPIROCIN 2 % EXT OINT 338876 MUPIROCIN Inactive CHERATUSSIN AC 100-10 MG/5ML SYRP 1 tsp by mouth every 4 hours as needed for cough CHERATUSSIN AC 100-10 MG/5ML SYRP 673583 GUAIFENESIN-CODEINE Inactive LEVAQUIN 500 MG TAB 1 tablet by mouth daily LEVAQUIN 500 MG TAB 674866 LEVOFLOXACIN Inactive LEVAQUIN 500 MG ORAL TABS Take one tablet daily LEVAQUIN 500 MG ORAL TABS 912578 LEVOFLOXACIN Inactive LEVAQUIN 750 MG TABS 1 po qd x 7 days LEVAQUIN 750 MG TABS 227430 LEVOFLOXACIN Inactive ALBUTEROL SULFATE 0.083 % NEBU SOLN one vial per nebulizer every 4-6 hours as needed ALBUTEROL SULFATE 0.083 % NEBU SOLN 698323 ALBUTEROL SULFATE Inactive TUSSIONEX PENNKINETIC ER 10-8 MG/5ML LQCR 5ml po q12hr PRN Cough TUSSIONEX PENNKINETIC ER 10-8 MG/5ML LQCR HYDROCOD POLST- CHLORPHEN POLST Inactive FLONASE ALLERGY RELIEF 50 MCG/ACT NASAL SUSP spray twice in each nostril one time daily FLONASE ALLERGY RELIEF 50 MCG/ACT NASAL SUSP 9640083 FLUTICASONE PROPIONATE Inactive BENZONATATE 200 MG ORAL CAPS One capsule tid. BENZONATATE 200 MG ORAL CAPS 773012 BENZONATATE Inactive CEPHALEXIN 500 MG ORAL CAPS Take one four times a day CEPHALEXIN 500 MG ORAL CAPS 569311 CEPHALEXIN Inactive TUSSIONEX PENNKINETIC ER 10-8 MG/5ML LQCR 5ml po q12hr PRN Cough TUSSIONEX PENNKINETIC ER 10-8 MG/5ML LQCR HYDROCOD POLST- CHLORPHEN POLST Inactive ZITHROMAX Z-CAROLYN 250 MG TABS 2x1day,2z1prym ZITHROMAX Z-CAROLYN 250 MG TABS 7351862 AZITHROMYCIN Inactive ZITHROMAX 250 MG TAB 2 po today, then 1 po q days 2-5 ZITHROMAX 250 MG TAB 3256407 AZITHROMYCIN Inactive VITAMIN D3 89001 UNIT CAPS 1 pill by mouth weekly, for vitamin D deficiency VITAMIN D3 38322 UNIT CAPS CHOLECALCIFEROL Inactive DOXYCYCLINE HYCLATE 100 MG CAP 1 cap by mouth twice daily DOXYCYCLINE HYCLATE 100 MG CAP 5129255 DOXYCYCLINE HYCLATE Inactive MEDROL (CAROLYN) 4 MG TABS 6 tabs on day 1, 5 tabs on day 2, 4 tabs on day 3, 3 tabs on day 4, 2 tabs on day 5, 1 tab on day 6 MEDROL ( CAROLYN) 4 MG TABS 365536 METHYLPREDNISOLONE Inactive KEFLEX 500 MG CAP 1 po qid KEFLEX 500 MG CAP 182930 CEPHALEXIN Inactive Vital Signs Date Name Value Unit Range Description blood pressure, diastolic - 8462-4 60 mm[Hg] [...] Panel - Chemistry sodium, serum 142 mmol/L 420-789 1620/07/25 potassium, serum 4.0 mmol/L 3.5-5.2 chloride, serum 107 mmol/L 98-107 carbon dioxide, venous blood 31.6 mmol/L 21.0-32.0 blood glucose 108 mg/dL 65-110 calcium, serum 9.2 mg/dL 8.5-10.1 urea nitrogen, blood 20 mg/dL 7-18 creatinine, serum 0.92 mg/dL 0.55-1.30 sodium, serum 141 mmol/L 992-751 6648/11/11 potassium, serum 4.2 mmol/L 3.5-5.2 chloride, serum 106 mmol/L 98-107 carbon dioxide, venous blood 29.1 mmol/L 21.0-32.0 blood glucose 95 mg/dL 65-110 calcium, serum 8.6 mg/dL 8.5-10.1 urea nitrogen, blood 23 mg/dL 7-18 creatinine, serum 0.83 mg/dL 0.55-1.30 Lab Report: Lipid Panel, Thyroid Stimulating Hormone (L) - Chemistry cholesterol, serum 177 mg/dL 554-243 5446/10/31 triglyceride, serum, fasting 64 mg/dL 30-200 HDL cholesterol, serum 77 mg/dL 32-96 LDL cholesterol, serum 87 mg/dL 0-130 TSH 2.13 m[iU]/mL 0.36-3.74 Lab Report: VITAMIN D, 25-HYDROXY/49384 - Chemistry vitamin D 25-hydroxy, serum 25 ng/mL 30-100 Encounters Code Encounter Date Provider Facility CPT-34138 Level 3 Est. Patient 15:39:01 CDT Marta Viramontes [facility] CPT-66810 Level 4 Est. Patient 17:31:07 CDT Marta Viramontes [facility] CPT-05761 Level 3 Est. Patient 05:11:40 CDT Rikki GRANADOS [facility] CPT-01981 Level 2 Est. Patient 14:30:43 DIRECTOR FIELD SERVICES Marta Viramontes [facility] CPT-78707 Level 4 Est. Patient 09:14:36 DIRECTOR FIELD SERVICES Rikki GRANADOS [facility] CPT-20480 Level 2 Est. Patient 09:07:32 CDT Marta Viramontes [facility] CPT-44434 Level 4 Est. Patient 11:55:00 CDT Rikki GRANADOS [facility] CPT-15027 Level 3 Est. Patient 13:25:16 CDT Jennifer Chun MD PhD [facility] CPT-08142 Level 3 Est. Patient 17:31:22 CDT Solomon Alamo MD [facility] CPT-59117 Level 3 Est. Patient 08:02:14 CDT Solomon Alamo MD [facility] CPT-53344 Level 3 Est. Patient 17:23:53 CDT Rikki Stearns [facility] CPT-43544 Level 3 Est. Patient 11:22:41 CDT Darryn Hearn [facility] Procedures Code Procedure Name Date Entry Date Standard Description CPT-22473 Venipuncture Draw Fee 12:43:48 DIRECTOR FIELD SERVICES CPT-40519 BMP - LAB USE ONLY 10:32:33 DIRECTOR FIELD SERVICES CPT-40520 Venipuncture Draw Fee 10:32:33 DIRECTOR FIELD SERVICES CPT-89516 Magnesium - LAB USE ONLY 09:54:30 CDT CPT-81673 TSH - LAB USE ONLY 09:54:30 CDT CPT-66100 Lipid - LAB USE ONLY 09:54:30 CDT CPT-65113 Venipuncture Draw Fee 09:54:29 CDT CPT-03431 Venipuncture Draw Fee 18:27:04 CDT CPT-42041 Chest 2V Frontal and Lat 10:57:00 DIRECTOR FIELD SERVICES CPT-73067 Venipuncture Draw Fee 10:56:59 DIRECTOR FIELD SERVICES CPT-00761 Venipuncture Draw Fee 09:22:28 DIRECTOR FIELD SERVICES CPT-22005 Chest 2V Frontal and Lat 09:22:27 DIRECTOR FIELD SERVICES CPT-I/D I/D Abscess 09:43:13 CDT CPT-96373 Venipuncture Draw Fee 08:16:46 DIRECTOR FIELD SERVICES CPT-55113 Venipuncture Draw Fee 08:18:55 DIRECTOR FIELD SERVICES CPT-27304 Venipuncture Draw Fee 08:31:18 DIRECTOR FIELD SERVICES CPT-99133 Venipuncture Draw Fee 11:42:52 DIRECTOR FIELD SERVICES CPT-87826 Venipuncture Draw Fee 13:26:37 DIRECTOR FIELD SERVICES CPT-67389 Venipuncture Draw Fee 09:23:38 DIRECTOR FIELD SERVICES CPT-000 Give Appropriate Tetanus Booster 10:23:50 CDT CPT-45111 Bone Density 08:28:45 CDT CPT-31120 Bone Density 11:35:15 CDT CPT-PV Prev. Care Visit 12:19:00 CDT CPT-78007 Venipuncture Draw Fee 15:02:58 CDT
--- OUTSIDE RECORDS SUMMARY | 2018-01-19 07:12 | XMS REPORT | Clinical Summary ---
Author Author Admin, E Organization [facility] Address Unknown Phone Unavailable Allergies, Adverse Reactions, Alerts Allergy Name Reaction Description Start Date Severity Status Provider SULFA facial swelling Critical Active Jocelyne Naff GENERAL EDUCATION INSTRUCTOR Conditions or Problems Problem Name Problem Code Onset Date Status Entry Date Provider Comment Standard Description Annotate G E R D 530.81 Active Jocelyne Naff GENERAL EDUCATION INSTRUCTOR Esophageal reflux FH COLON CANCER V16.0 Active Jocelyne Naff GENERAL EDUCATION INSTRUCTOR Family history of malignant neoplasm of gastrointestinal [...] po q12hr PRN Cough HYDROCOD POLST-CHLORPHEN POLST 90196029278 Active Marta Viramontes APRN Active VITAMIN D3 55501 UNIT CAPS 1 qWeek x 4 months for vitamin D deficiency 04/09 CHOLECALCIFEROL 47980761559 Active Marta Viramontes APRN Active CEPHALEXIN 500 MG ORAL CAPS Take one four times a day CEPHALEXIN 81751931057 No Longer Active Marta Viramontes APRN Active BIOTIN 1000 MCG ORAL TABS Take one daily BIOTIN 39281234650 Active Rikki Harms PA Active VITAMIN C 500 MG ORAL CAPS Take one daily ASCORBIC ACID 83624530171 Active Rikki Harms PA Active BENZONATATE 200 MG ORAL CAPS One capsule tid. BENZONATATE 32043252164 No Longer Active Rikki Harms PA Active FLONASE ALLERGY RELIEF 50 MCG/ACT NASAL SUSP spray twice in each nostril one time daily FLUTICASONE PROPIONATE 77056131303 No Longer Active Rikki Harms PA Active TUSSIONEX PENNKINETIC ER 10-8 MG/5ML LQCR 5ml po q12hr PRN Cough HYDROCOD POLST-CHLORPHEN POLST 52504372264 No Longer Active Rikki Harms PA Active NIACIN ER 500 MG ORAL CR-TABS Take one twice daily NIACIN 49914836230 Active Rikki Harms PA Active ALBUTEROL SULFATE 0.083 % NEBU SOLN one vial per nebulizer every 4-6 hours as needed ALBUTEROL SULFATE 25391707772 No Longer Active Rikki Harms PA Active MEDROL (CAROLYN) 4 MG TABS 6 tabs on day 1, 5 tabs on day 2, 4 tabs on day 3, 3 tabs on day 4, 2 tabs on day 5, 1 tab on day 6 METHYLPREDNISOLONE 73905976607 No Longer Active Rikki Harms PA Active LEVAQUIN 750 MG TABS 1 po qd x 7 days LEVOFLOXACIN 93659352189 No Longer Active Rikki Harms PA Active LEVAQUIN 500 MG ORAL TABS Take one tablet daily LEVOFLOXACIN 63414071081 No Longer Active Rikki Harms PA Active PROAIR HFA 108 (90 BASE) MCG/ACT AERS 2 puffs four times a day as needed 2014 ALBUTEROL SULFATE 33648153428 Active Marta Yokum BAIL BONDING AGENT Active LEVAQUIN 500 MG TAB 1 tablet by mouth daily LEVOFLOXACIN 62883350312 No Longer Active Marta Yokum BAIL BONDING AGENT Active CHERATUSSIN AC 100-10 MG/5ML SYRP 1 tsp by mouth every 4 hours as needed for cough GUAIFENESIN-CODEINE 32062512366 No Longer Active Rikki Harms PA Active MUPIROCIN 2 % EXT OINT Use in each nostril in am and pm MUPIROCIN 20691376702 No Longer Active Rikki Harms PA Active DOXYCYCLINE HYCLATE 100 MG ORAL CAPS Take one bid DOXYCYCLINE HYCLATE 41083513565 No Longer Active Rikki Harms PA Active CLARITIN 10 MG TABS 1prn LORATADINE 68761951844 No Longer Active Jocelyne Naff GENERAL EDUCATION INSTRUCTOR Active ASPIRIN 81 MG TABS 1qd ASPIRIN 42414995610 No Longer Active Jocelyne Naff GENERAL EDUCATION INSTRUCTOR Active DOXYCYCLINE HYCLATE 100 MG CAP 1 cap by mouth twice daily DOXYCYCLINE HYCLATE 15684964853 No Longer Active Rikki Harms PA Active VITAMIN D3 20606 UNIT CAPS 1 pill by mouth weekly, for vitamin D deficiency CHOLECALCIFEROL 71331584206 No Longer Active Jennifer Chun MD PhD Active ANASTROZOLE 1 MG ORAL TABS Take one by mouth daily ANASTROZOLE 45358195887 Active Jennifer Chun MD PhD Active ZITHROMAX 250 MG TAB 2 po today, then 1 po q days 2-5 AZITHROMYCIN 82248698520 No Longer Active Rikki Harms PA Active MECLIZINE HCL 25 MG TABS 1 prn MECLIZINE HCL 47299210999 No Longer Active Solomon Alamo MD Active CHERATUSSIN AC SYRP prn as directed GUAIFENESIN- CODEINE SYRP 65968598831 No Longer Active Rikki Harms PA Active MULTIVITAMINS TABS 1qd MULTIPLE VITAMIN 08989089370 No Longer Active Rikki Harms PA Active OMEPRAZOLE 20 MG CPDR 1 PO Q D OMEPRAZOLE 32505790600 Active Marta Maganaum BAIL BONDING AGENT Active ZITHROMAX Z-CAROLYN 250 MG TABS 2x1day,4j8uhej AZITHROMYCIN 69900315019 No Longer Active Jocelyne Lovell GENERAL EDUCATION INSTRUCTOR Active MULTIVITAMINS TABS 1qd MULTIVITAMINS TABS MULTIPLE VITAMIN Inactive CHERATUSSIN AC SYRP prn as directed CHERATUSSIN AC SYRP GUAIFENESIN-CODEINE SYRP Inactive MECLIZINE HCL 25 MG TABS 1 prn MECLIZINE HCL 25 MG TABS 267132 MECLIZINE HCL Inactive ASPIRIN 81 MG TABS 1qd ASPIRIN 81 MG TABS ASPIRIN Inactive CLARITIN 10 MG TABS 1prn CLARITIN 10 MG TABS 330567 LORATADINE Inactive DOXYCYCLINE HYCLATE 100 MG ORAL CAPS Take one bid DOXYCYCLINE HYCLATE 100 MG ORAL CAPS 0451710 DOXYCYCLINE HYCLATE Inactive MUPIROCIN 2 % EXT OINT Use in each nostril in am and pm MUPIROCIN 2 % EXT OINT 207834 MUPIROCIN Inactive CHERATUSSIN AC 100-10 MG/5ML SYRP 1 tsp by mouth every 4 hours as needed for cough CHERATUSSIN AC 100-10 MG/5ML SYRP 425561 GUAIFENESIN-CODEINE Inactive LEVAQUIN 500 MG TAB 1 tablet by mouth daily LEVAQUIN 500 MG TAB 071821 LEVOFLOXACIN Inactive LEVAQUIN 500 MG ORAL TABS Take one tablet daily LEVAQUIN 500 MG ORAL TABS 345316 LEVOFLOXACIN Inactive LEVAQUIN 750 MG TABS 1 po qd x 7 days LEVAQUIN 750 MG TABS 923933 LEVOFLOXACIN Inactive ALBUTEROL SULFATE 0.083 % NEBU SOLN one vial per nebulizer every 4-6 hours as needed ALBUTEROL SULFATE 0.083 % NEBU SOLN 104951 ALBUTEROL SULFATE Inactive TUSSIONEX PENNKINETIC ER 10-8 MG/5ML LQCR 5ml po q12hr PRN Cough TUSSIONEX PENNKINETIC ER 10-8 MG/5ML LQCR HYDROCOD POLST- CHLORPHEN POLST Inactive FLONASE ALLERGY RELIEF 50 MCG/ACT NASAL SUSP spray twice in each nostril one time daily FLONASE ALLERGY RELIEF 50 MCG/ACT NASAL SUSP 4028489 FLUTICASONE PROPIONATE Inactive BENZONATATE 200 MG ORAL CAPS One capsule tid. BENZONATATE 200 MG ORAL CAPS 975003 BENZONATATE Inactive CEPHALEXIN 500 MG ORAL CAPS Take one four times a day CEPHALEXIN 500 MG ORAL CAPS 458076 CEPHALEXIN Inactive ZITHROMAX Z-CAROLYN 250 MG TABS 2x1day,3f7wmcz ZITHROMAX Z-CAROLYN 250 MG TABS 0027299 AZITHROMYCIN Inactive ZITHROMAX 250 MG TAB 2 po today, then 1 po q days 2-5 ZITHROMAX 250 MG TAB 8333715 AZITHROMYCIN Inactive VITAMIN D3 20977 UNIT CAPS 1 pill by mouth weekly, for vitamin D deficiency VITAMIN D3 62673 UNIT CAPS CHOLECALCIFEROL Inactive DOXYCYCLINE HYCLATE 100 MG CAP 1 cap by mouth twice daily DOXYCYCLINE HYCLATE 100 MG CAP 5870486 DOXYCYCLINE HYCLATE Inactive MEDROL (CAROLYN) 4 MG TABS 6 tabs on day 1, 5 tabs on day 2, 4 tabs on day 3, 3 tabs on day 4, 2 tabs on day 5, 1 tab on day 6 MEDROL ( CAROLYN) 4 MG TABS 216040 METHYLPREDNISOLONE Inactive Vital Signs Date Name Value [...] Lab Report: Basic Metabolic Panel - Chemistry calcium, serum 9.2 mg/dL 8.5-10.1 urea nitrogen, blood 20 mg/dL 7-18 creatinine, serum 0.92 mg/dL 0.55-1.30 blood glucose 108 mg/dL 65-110 carbon dioxide, venous blood 31.6 mmol/L 21.0-32.0 chloride, serum 107 mmol/L 98-107 potassium, serum 4.0 mmol/L 3.5-5.2 sodium, serum 142 mmol/L 788-079 6643/11/11 sodium, serum 141 mmol/L 760-639 0762/11/11 urea nitrogen, blood 23 mg/dL 7-18 creatinine, serum 0.83 mg/dL 0.55-1.30 potassium, serum 4.2 mmol/L 3.5-5.2 chloride, serum 106 mmol/L 98-107 carbon dioxide, venous blood 29.1 mmol/L 21.0-32.0 blood glucose 95 mg/dL 65-110 calcium, serum 8.6 mg/dL 8.5-10.1 Lab Report: Lipid Panel, Thyroid Stimulating Hormone (L) - Chemistry cholesterol, serum 177 mg/dL 476-249 7820/10/31 triglyceride, serum, fasting 64 mg/dL 30-200 HDL cholesterol, serum 77 mg/dL 32-96 LDL cholesterol, serum 87 mg/dL 0-130 TSH 2.13 m[iU]/mL 0.36-3.74 Lab Report: VITAMIN D, 25-HYDROXY/00347 - Chemistry vitamin D 25-hydroxy, serum 25 ng/mL 30-100 Encounters Code Encounter Date Provider Facility CPT-35247 Level 4 Est. Patient 17:31:07 CDT Marta Viramontes [facility] CPT-02437 Level 3 Est. Patient 05:11:40 CDT Rikki GRANADOS [facility] CPT-31276 Level 2 Est. Patient 14:30:43 LEAN SIX SIGMA BLACK BELT Marta Viramontes [facility] CPT-76361 Level 4 Est. Patient 09:14:36 LEAN SIX SIGMA BLACK BELT Rikki GRANADOS [facility] CPT-78304 Level 2 Est. Patient 09:07:32 CDT Marta Viramontes [place] [facility] [place] CPT-95158 Level 4 Est. Patient 11:55:00 CDT Rikki GRANADOS [facility] [place] CPT-26303 Level 3 Est. Patient 13:25:16 CDT Jennifer Chun MD PhD [facility] CPT-96528 Level 3 Est. Patient 17:31:22 CDT Solomon Alamo MD [facility] CPT-38271 Level 3 Est. Patient 08:02:14 CDT Solomon Alamo MD [facility] CPT-91866 Level 3 Est. Patient 17:23:53 CDT Rikki GRANADOS [facility] [place] CPT-64930 Level 3 Est. Patient 11:22:41 CDT Darryn Hearn [facility] Procedures Code Procedure Name Date Entry Date Standard Description CPT-00487 Venipuncture Draw Fee 12:43:48 LEAN SIX SIGMA BLACK BELT CPT-58270 BMP - LAB USE ONLY 10:32:33 LEAN SIX SIGMA BLACK BELT CPT-95823 Venipuncture Draw Fee 10:32:33 LEAN SIX SIGMA BLACK BELT CPT-47593 Magnesium - LAB USE ONLY 09:54:30 CDT CPT-70638 TSH - LAB USE ONLY 09:54:30 CDT CPT-52842 Lipid - LAB USE ONLY 09:54:30 CDT CPT-71566 Venipuncture Draw Fee 09:54:29 CDT CPT-42239 Venipuncture Draw Fee 18:27:04 CDT CPT-40236 Chest 2V Frontal and Lat 10:57:00 LEAN SIX SIGMA BLACK BELT CPT-85432 Venipuncture Draw Fee 10:56:59 LEAN SIX SIGMA BLACK BELT CPT-24686 Venipuncture Draw Fee 09:22:28 LEAN SIX SIGMA BLACK BELT CPT-47483 Chest 2V Frontal and Lat 09:22:27 LEAN SIX SIGMA BLACK BELT CPT-I/D I/D Abscess 09:43:13 CDT CPT-21356 Venipuncture Draw Fee 08:16:46 LEAN SIX SIGMA BLACK BELT CPT-64184 Venipuncture Draw Fee 08:18:55 LEAN SIX SIGMA BLACK BELT CPT-59574 Venipuncture Draw Fee 08:31:18 LEAN SIX SIGMA BLACK BELT CPT-03719 Venipuncture Draw Fee 11:42:52 LEAN SIX SIGMA BLACK BELT CPT-97457 Venipuncture Draw Fee 13:26:37 LEAN SIX SIGMA BLACK BELT CPT-72144 Venipuncture Draw Fee 09:23:38 LEAN SIX SIGMA BLACK BELT CPT-000 Give Appropriate Tetanus Booster 10:23:50 CDT CPT-18770 Bone Density 08:28:45 CDT CPT-74448 Bone Density 11:35:15 CDT CPT-PV Prev. Care Visit 12:19:00 CDT CPT-62668 Venipuncture Draw Fee 15:02:58 CDT
--- OUTSIDE RECORDS SUMMARY | 2018-01-19 07:13 | XMS REPORT | Clinical Summary ---
Author Author Admin, E Organization [facility] Address Unknown Phone Unavailable Allergies, Adverse Reactions, Alerts Allergy Name Reaction Description Start Date Severity Status Provider SULFA facial swelling Critical Active Jocelyne Naff PARADICHLOROBENZENE 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 Conditions or Problems Problem Name Problem Code Onset Date Status Entry Date Provider Comment Standard Description Annotate G E R D 530.81 Active Jocelyne Naff PARADICHLOROBENZENE 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 Esophageal reflux FH COLON CANCER V16.0 Active Jocelyne Naff PARADICHLOROBENZENE 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 Family history of malignant neoplasm of gastrointestinal tract ESOPHAGEAL STRICTURE 530.3 Active Darryn Hearn PA Stricture and stenosis of esophagus CAROTID ARTERY STENOSIS, RIGHT 433.10 Active Rikki Stearns PA Occlusion and stenosis of carotid artery, without mention of cerebral infarction HEALTH SCREENING V70.0 Active Rose Darnell PARADICHLOROBENZENE 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 Routine general medical examination at [...] Chun MD PhD Abnormal Mammogram ICD-793.80 Inactive Jenniefr Chun MD PhD Medication List Medication Instructions Start Date Stop Date Generic Name NDC Status Provider Patient Instruction MUPIROCIN 2 % EXT OINT Use in each nostril in am and pm MUPIROCIN 84817029913 Active Jocelyne Naff PARADICHLOROBENZENE 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 Active CLARITIN 10 MG TABS 1prn LORATADINE 82482142146 No Longer Active Jocelyne Naff PARADICHLOROBENZENE 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 Active ASPIRIN 81 MG TABS 1qd ASPIRIN 72424845383 No Longer Active Jocelyne Naff PARADICHLOROBENZENE 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 Active DOXYCYCLINE HYCLATE 100 MG ORAL CAPS Take one bid DOXYCYCLINE HYCLATE 56811459592 Active Jocelyne Naff PARADICHLOROBENZENE 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 Active DOXYCYCLINE HYCLATE 100 MG CAP 1 cap by mouth twice daily DOXYCYCLINE HYCLATE 92121007383 No Longer Active Rikki GRANADOS Active VITAMIN D3 69112 UNIT CAPS 1 pill by mouth weekly, for vitamin D deficiency CHOLECALCIFEROL 88453064424 Active Jennifer Chun MD PhD Active ANASTROZOLE 1 MG ORAL TABS Take one by mouth daily ANASTROZOLE 24300943397 Active Jennifer Chun MD PhD Active ZITHROMAX 250 MG TAB 2 po today, then 1 po q days 2-5 AZITHROMYCIN 62801762261 No Longer Active Rikki Harms PA Active MECLIZINE HCL 25 MG TABS 1 prn MECLIZINE HCL 34142445255 No Longer Active Solomon Alamo MD Active CHERATUSSIN AC SYRP prn as directed GUAIFENESIN- CODEINE SYRP 14904666605 No Longer Active Rikki Harms PA Active MULTIVITAMINS TABS 1qd MULTIPLE VITAMIN 96016861548 No Longer Active Rikki Harms PA Active OMEPRAZOLE 20 MG CPDR 1 PO Q D OMEPRAZOLE 81011914213 Active Rikki Harms PA Active ZITHROMAX Z-CAROLYN 250 MG TABS 2x1day,2t3lnzb AZITHROMYCIN 47678372607 No Longer Active Jocelyne Lovell PARADICHLOROBENZENE 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 Active MULTIVITAMINS TABS 1qd MULTIVITAMINS TABS MULTIPLE VITAMIN Inactive CHERATUSSIN AC SYRP prn as directed CHERATUSSIN AC SYRP GUAIFENESIN-CODEINE SYRP Inactive MECLIZINE HCL 25 MG TABS 1 prn MECLIZINE HCL 25 MG TABS 912934 MECLIZINE HCL Inactive ASPIRIN 81 MG TABS 1qd ASPIRIN 81 MG TABS 554506 ASPIRIN Inactive CLARITIN 10 MG TABS 1prn CLARITIN 10 MG TABS 624229 LORATADINE Inactive ZITHROMAX Z-CAROLYN 250 MG TABS 2x1day,3d1rkpn ZITHROMAX Z-CAROLYN 250 MG TABS 0422062 AZITHROMYCIN Inactive ZITHROMAX 250 MG TAB 2 po today, then 1 po q days 2-5 ZITHROMAX 250 MG TAB 5434163 AZITHROMYCIN Inactive DOXYCYCLINE HYCLATE 100 MG CAP 1 cap by mouth twice daily DOXYCYCLINE HYCLATE 100 MG CAP 8764753 DOXYCYCLINE HYCLATE Inactive Vital Signs Date Name [...] % 11.6-14.8 platelet count 131 10^3/MM^3 10*3/mm3 683-236 9698/12/12 leukocyte count, blood 28.6 10^3/MM^3 10*3/mm3 4.6-10.2 [...] % 11.6-14.8 platelet count 237 10^3/MM^3 10*3/mm3 418-758 9336/12/23 leukocyte count, blood 6.9 10^3/MM^3 10*3/mm3 4.6-10.2 [...] % 11.6-14.8 platelet count 360 10^3/MM^3 10*3/mm3 401-628 6804/12/31 leukocyte count, blood 5.3 10^3/MM^3 10*3/mm3 4.6-10.2 [...] % 11.6-14.8 platelet count 222 10^3/MM^3 10*3/mm3 021-462 2743/01/07 leukocyte count, blood 11.7 10^3/MM^3 10*3/mm3 4.6-10.2 [...] % 11.6-14.8 platelet count 191 10^3/MM^3 10*3/mm3 722-858 0793/01/20 leukocyte count, blood 9.8 10^3/MM^3 10*3/mm3 4.6-10.2 [...] % 11.6-14.8 platelet count 195 10^3/MM^3 10*3/mm3 363-076 0275/01/28 leukocyte count, blood 11.9 10^3/MM^3 10*3/mm3 4.6-10.2 [...] % 11.6-14.8 platelet count 278 10^3/MM^3 10*3/mm3 308-686 6248/02/04 leukocyte count, blood 8.5 10^3/MM^3 10*3/mm3 4.6-10.2 [...] % 11.6-14.8 platelet count 326 10^3/MM^3 10*3/mm3 547-545 7498/02/10 leukocyte count, blood 2.3 10^3/MM^3 10*3/mm3 4.6-10.2 [...] % 11.6-14.8 platelet count 240 10^3/MM^3 10*3/mm3 565-052 2544/02/17 leukocyte count, blood 3.4 10^3/MM^3 10*3/mm3 4.6-10.2 [...] % 11.6-14.8 platelet count 308 10^3/MM^3 10*3/mm3 570-470 9384/02/25 leukocyte count, blood 6.6 10^3/MM^3 10*3/mm3 4.6-10.2 [...] Panel - Chemistry sodium, serum 144 mmol/L 990-356 2567/12/16 potassium, serum 4.5 mmol/L 3.5-5.2 chloride, serum 107 mmol/L 98-107 carbon dioxide, venous blood 31.4 mmol/L 21.0-32.0 blood glucose 104 mg/dL 65-110 urea nitrogen, blood 17 mg/dL 7-18 creatinine, serum 1.10 mg/dL 0.60-1.30 alanine aminotransferase (SGPT), serum 25 U/L 12-78 aspartate aminotransferase (SGOT), serum 24 U/L 15-37 calcium, serum 8.4 mg/dL 8.5-10.1 bilirubin, serum, total 0.20 mg/dL 0.00-1.00 sodium, serum 141 mmol/L 437-982 8287/01/14 potassium, serum 4.9 mmol/L 3.5-5.2 chloride, serum [...] % 11.6-14.8 platelet count 376 10^3/MM^3 10*3/mm3 376-645 7811/12/16 leukocyte count, blood 19.5 10^3/MM^3 10*3/mm3 4.6-10.2 [...] Panel - Chemistry sodium, serum 140 mmol/L 611-684 0923/07/13 potassium, serum 4.5 mmol/L 3.5-5.2 chloride, serum 106 mmol/L 98-107 carbon dioxide, venous blood 27.7 mmol/L 21.0-32.0 blood glucose 105 mg/dL 65-110 urea nitrogen, blood 14 mg/dL 7-18 creatinine, serum 0.90 mg/dL 0.60-1.30 alanine aminotransferase (SGPT), serum 29 U/L 12-78 aspartate aminotransferase (SGOT), serum 22 U/L 15-37 calcium, serum 9.4 mg/dL 8.5-10.1 bilirubin, serum, total 0.70 mg/dL 0.00-1.00 cholesterol, serum 160 mg/dL 219-845 6001/07/13 triglyceride, serum, fasting 63 mg/dL 30-200 HDL [...] Panel - Chemistry sodium, serum 141 mmol/L 165-250 7265/02/10 potassium, serum 5.2 mmol/L 3.5-5.2 chloride, serum 106 mmol/L 98-107 carbon dioxide, venous blood 27.8 mmol/L 21.0-32.0 blood glucose 111 mg/dL 65-110 urea nitrogen, blood 18 mg/dL 7-18 creatinine, serum 0.90 mg/dL 0.60-1.30 alanine aminotransferase (SGPT), serum 29 U/L 12-78 aspartate aminotransferase (SGOT), serum 21 U/L 15-37 calcium, serum 8.3 mg/dL 8.5-10.1 bilirubin, serum, total 0.40 mg/dL 0.00-1.00 Lab Report: VITAMIN D, 25-HYDROXY/[id number] - Chemistry vitamin D 25-hydroxy, serum 24 ng/mL 30-100 Encounters Code Encounter Date Provider Facility CPT-22665 Level 2 Est. Patient 09:07:32 CDT Marta Viramontes APRN [facility] CPT-25969 Level 4 Est. Patient 11:55:00 CDT Rikki GRANADOS [facility] CPT-04439 Level 3 Est. Patient 13:25:16 CDT Jennifer Chun MD PhD [facility] CPT-42568 Level 3 Est. Patient 17:31:22 CDT [facility] CPT-52870 Level 3 Est. Patient 08:02:14 CDT [facility] CPT-14272 Level 3 Est. Patient 17:23:53 CDT Rikki GRANADOS [facility] CPT-52272 Level 3 Est. Patient 11:22:41 CDT Darryn GRANADOS [facility] Procedures Code Procedure Name Date Entry Date Standard Description CPT-I/D I/D Abscess 09:43:13 CDT CPT-37396 Venipuncture Draw Fee 08:16:46 NEEDLEWORKER CPT-90529 Venipuncture Draw Fee 08:18:55 NEEDLEWORKER CPT-92518 Venipuncture Draw Fee 08:31:18 NEEDLEWORKER CPT-50683 Venipuncture Draw Fee 11:42:52 NEEDLEWORKER CPT-92624 Venipuncture Draw Fee 13:26:37 NEEDLEWORKER CPT-12635 Venipuncture Draw Fee 09:23:38 NEEDLEWORKER CPT-000 Give Appropriate Tetanus Booster 10:23:50 CDT CPT-90663 Bone Density 08:28:45 CDT CPT-68659 Bone Density 11:35:15 CDT CPT-PV Prev. Care Visit 12:19:00 CDT CPT-46459 Venipuncture Draw Fee 15:02:58 CDT
--- OUTSIDE RECORDS SUMMARY | 2018-01-19 07:13 | XMS REPORT | Clinical Summary ---
Author Author Admin, QUITA Organization [facility] Address Unknown Phone Unavailable Allergies, Adverse Reactions, Alerts Allergy Name Reaction Description Start Date Severity Status Provider SULFA facial swelling Critical Active Jocelyne Naff MARKETING OPERATIONS ASSISTANT Conditions or Problems Problem Name Problem Code Onset Date Status Entry Date Provider Comment Standard Description Annotate G E R D 530.81 Active Jocelyne Naff MARKETING OPERATIONS ASSISTANT Esophageal reflux FH COLON CANCER V16.0 Active Jocelyne Naff MARKETING OPERATIONS ASSISTANT Family history of malignant neoplasm of [...] (natural) Breast cancer 174.9 Resolved Marta Viramontes HEALTHCARE SALES REPRESENTATIVE Malignant neoplasm of breast (female), unspecified Vitamin [...] Ingrown toenail, left 703.0 Resolved Marta Yokum HEALTHCARE SALES REPRESENTATIVE Ingrowing nail cellulitis, finger, right 681.00 Resolved Marta Yokum HEALTHCARE SALES REPRESENTATIVE Cellulitis and abscess of finger, unspecified Cough 786.2 Resolved Marta Yokum HEALTHCARE SALES REPRESENTATIVE Cough Bronchitis, acute 466.0 Active Marta Yokum HEALTHCARE SALES REPRESENTATIVE Acute bronchitis Breast microcalcification ICD-793.81 Inactive Jennifer Chun MD PhD Abnormal Mammogram ICD-793.80 Inactive Jennifer Chun MD PhD Breast cancer ICD-174.9 Inactive Marta Yokum HEALTHCARE SALES REPRESENTATIVE Soft tissue infection ICD-528.9 Inactive Rikki Harms PA Abscess, skin ICD-682.9 Inactive Rikki Harms PA Cellulitis, 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 Rikki Harms PA Rash ICD-782.1 Inactive Rikki Harms PA Upper respiratory infection, acute ICD-465.9 Inactive Rikki Harms PA Chemotherapy ICD-V58.11 Inactive Rikki Harms PA Cough, chronic ICD-786.2 Inactive Rikki Harms PA Ingrown toenail, left ICD-703.0 Inactive Marta Yokum HEALTHCARE SALES REPRESENTATIVE cellulitis, finger, right ICD-681.00 Inactive Marta Yokum HEALTHCARE SALES REPRESENTATIVE Cough ICD-786.2 Inactive Marta Yokum HEALTHCARE SALES REPRESENTATIVE Medication List Medication Instructions Start Date Stop Date Generic Name NDC Status Provider Patient Instruction PROAIR HFA 108 (90 BASE) MCG/ACT INHALATION AEROSOL SOLUTION 2 puffs four times a day as needed ALBUTEROL SULFATE 02870050886 No Longer Active Marta Yokum HEALTHCARE SALES REPRESENTATIVE Active DOXYCYCLINE HYCLATE 100 MG ORAL CAPSULE 1 cap by mouth twice daily DOXYCYCLINE HYCLATE 26540439476 No Longer Active Marta Yokum HEALTHCARE SALES REPRESENTATIVE Active PROAIR HFA 108 (90 BASE) MCG/ACT INHALATION AEROSOL SOLUTION 2 puffs four times a day as needed ALBUTEROL SULFATE 38447833181 Active Marta Yokum HEALTHCARE SALES REPRESENTATIVE Active AUGMENTIN 875-125 MG ORAL TABLET Take one tablet twice a day with food 04/25 AMOXICILLIN-POT CLAVULANATE 57801346413 No Longer Active Marta Yokum HEALTHCARE SALES REPRESENTATIVE Active TESSALON PERLES 100 MG ORAL CAPSULE 1 to 2 tablets by mouth 3 times daily as needed for cough BENZONATATE 34445628007 No Longer Active Marta Yokum HEALTHCARE SALES REPRESENTATIVE Active AUGMENTIN 875-125 MG ORAL TABLET 1 po BID x 10 days AMOXICILLIN-POT CLAVULANATE 92451515597 No Longer Active Marta Yokum HEALTHCARE SALES REPRESENTATIVE Active MEDROL 4 MG ORAL TABLET THERAPY PACK 6 tabs on day 1, 5 tabs on day 2, 4 tabs on day 3, 3 tabs on day 4, 2 tabs on day 5, 1 tab on day 6 METHYLPREDNISOLONE 30791003854 No Longer Active Marta Yokum HEALTHCARE SALES REPRESENTATIVE Active TUSSIONEX PENNKINETIC ER 10-8 MG/5ML ORAL SUSPENSION EXTENDED RELEASE 5ml po q12hr PRN Cough HYDROCOD POLST-CHLORPHEN POLST 96067061371 Active Marta Yokum HEALTHCARE SALES REPRESENTATIVE Active KEFLEX 500 MG ORAL CAPSULE 1 po qid CEPHALEXIN 07736733178 No Longer Active Marta Yokum HEALTHCARE SALES REPRESENTATIVE Active B COMPLEX 50 ORAL TABLET EXTENDED RELEASE B COMPLEX VITAMINS 84803257837 Active Marta Yokum HEALTHCARE SALES REPRESENTATIVE Active TUSSIONEX PENNKINETIC ER 10-8 MG/5ML ORAL SUSPENSION EXTENDED RELEASE 5ml po q12hr PRN Cough HYDROCOD POLST-CHLORPHEN POLST 01243887574 No Longer Active Marta Yokum HEALTHCARE SALES REPRESENTATIVE Active VITAMIN D3 95576 UNIT ORAL CAPSULE 1 qWeek x 4 months for vitamin D deficiency CHOLECALCIFEROL 27183572778 Active Marta Yokum HEALTHCARE SALES REPRESENTATIVE Active CEPHALEXIN 500 MG ORAL CAPSULE Take one four times a day CEPHALEXIN 39509410612 No Longer Active Marta Yokum HEALTHCARE SALES REPRESENTATIVE Active BIOTIN 1000 MCG ORAL TABLET Take one daily BIOTIN 90047086651 Active Rikki Harms PA Active VITAMIN C 500 MG ORAL CAPSULE Take one daily ASCORBIC ACID 94782191137 Active Rikki Harms PA Active BENZONATATE 200 MG ORAL CAPSULE One capsule tid. BENZONATATE 97326961348 No Longer Active Rikki Harms PA Active FLONASE ALLERGY RELIEF 50 MCG/ACT NASAL SUSPENSION spray twice in each nostril one time daily FLUTICASONE PROPIONATE 82037641609 No Longer Active Rikki Harms PA Active TUSSIONEX PENNKINETIC ER 10-8 MG/5ML ORAL SUSPENSION EXTENDED RELEASE 5ml po q12hr PRN Cough HYDROCOD POLST-CHLORPHEN POLST 13028850767 No Longer Active Rikki Harms PA Active NIACIN ER 500 MG ORAL TABLET EXTENDED RELEASE Take one twice daily NIACIN 53895676660 Active Rikki Harms PA Active ALBUTEROL SULFATE (2.5 MG/3ML) 0.083% INHALATION NEBULIZATION SOLUTION one vial per nebulizer every 4-6 hours as needed ALBUTEROL SULFATE 91004199458 No Longer Active Rikki Harms PA Active MEDROL 4 MG ORAL TABLET THERAPY PACK 6 tabs on day 1, 5 tabs on day 2, 4 tabs on day 3, 3 tabs on day 4, 2 tabs on day 5, 1 tab on day 6 METHYLPREDNISOLONE 63667593890 No Longer Active Rikki Harms PA Active LEVAQUIN 750 MG ORAL TABLET 1 po qd x 7 days LEVOFLOXACIN 00994548380 No Longer Active Rikki Harms PA Active LEVAQUIN 500 MG ORAL TABLET Take one tablet daily LEVOFLOXACIN 81228917584 No Longer Active Rikki Harms PA Active LEVAQUIN 500 MG ORAL TABLET 1 tablet by mouth daily LEVOFLOXACIN 48453933018 No Longer Active Marta Viramontes APRN Active CHERATUSSIN AC 100-10 MG/5ML ORAL SYRUP 1 tsp by mouth every 4 hours as needed for cough GUAIFENESIN-CODEINE 32400513093 No Longer Active Rikki Harms PA Active MUPIROCIN 2 % EXTERNAL OINTMENT Use in each nostril in am and pm MUPIROCIN 49972588204 No Longer Active Rikki Harms PA Active DOXYCYCLINE HYCLATE 100 MG ORAL CAPSULE Take one bid DOXYCYCLINE HYCLATE 76463447485 No Longer Active Rikki Harms PA Active CLARITIN 10 MG ORAL TABLET 1prn LORATADINE 23880352804 No Longer Active Jocelyne Naff MARKETING OPERATIONS ASSISTANT Active ASPIRIN 81 MG ORAL TABLET 1qd ASPIRIN 40280392381 No Longer Active Jocelyne Naff MARKETING OPERATIONS ASSISTANT Active DOXYCYCLINE HYCLATE 100 MG ORAL CAPSULE 1 cap by mouth twice daily DOXYCYCLINE HYCLATE 57573307153 No Longer Active Rikki Harms PA Active VITAMIN D3 76226 UNIT ORAL CAPSULE 1 pill by mouth weekly, for vitamin D deficiency CHOLECALCIFEROL 25435049124 No Longer Active Jennifer Chun MD PhD Active ANASTROZOLE 1 MG ORAL TABLET Take one by mouth daily ANASTROZOLE 49175720460 Active Jennifer Chun MD PhD Active ZITHROMAX 250 MG ORAL TABLET 2 po today, then 1 po q days 2-5 AZITHROMYCIN 31444117193 No Longer Active Rikki Harms PA Active MECLIZINE HCL 25 MG ORAL TABLET 1 prn MECLIZINE HCL 87550478386 No Longer Active Solomon Alamo MD Active CHERATUSSIN AC SYRUP prn as directed GUAIFENESIN- CODEINE SYRP 73610279632 No Longer Active Rikki Harms PA Active MULTIVITAMINS TABS 1qd MULTIPLE VITAMIN 04709339890 No Longer Active Rikki Harms PA Active OMEPRAZOLE 20 MG ORAL CAPSULE DELAYED RELEASE 1 PO Q D OMEPRAZOLE 37557818595 Active Jocelyne Naff MARKETING OPERATIONS ASSISTANT Active ZITHROMAX Z-CAROLYN 250 MG ORAL TABLET 2x1day,2r2vugb AZITHROMYCIN 54372103757 No Longer Active Jocelyne Naff MARKETING OPERATIONS ASSISTANT Active MULTIVITAMINS TABS 1qd MULTIVITAMINS TABS MULTIPLE VITAMIN Inactive CHERATUSSIN AC SYRUP prn as directed CHERATUSSIN AC SYRUP GUAIFENESIN-CODEINE SYRP Inactive MECLIZINE HCL 25 MG ORAL TABLET 1 prn MECLIZINE HCL 25 MG ORAL TABLET 839043 MECLIZINE HCL Inactive ASPIRIN 81 MG ORAL TABLET 1qd ASPIRIN 81 MG ORAL TABLET 667348 ASPIRIN Inactive CLARITIN 10 MG ORAL TABLET 1prn CLARITIN 10 MG ORAL TABLET 267702 LORATADINE Inactive DOXYCYCLINE HYCLATE 100 MG ORAL CAPSULE Take one bid DOXYCYCLINE HYCLATE 100 MG ORAL CAPSULE 9844532 DOXYCYCLINE HYCLATE Inactive MUPIROCIN 2 % EXTERNAL OINTMENT Use in each nostril in am and pm MUPIROCIN 2 % EXTERNAL OINTMENT 902965 MUPIROCIN Inactive CHERATUSSIN AC 100-10 MG/5ML ORAL SYRUP 1 tsp by mouth every 4 hours as needed for cough CHERATUSSIN AC 100-10 MG/5ML ORAL SYRUP 877691 GUAIFENESIN-CODEINE Inactive LEVAQUIN 500 MG ORAL TABLET 1 tablet by mouth daily LEVAQUIN 500 MG ORAL TABLET 628219 LEVOFLOXACIN Inactive LEVAQUIN 500 MG ORAL TABLET Take one tablet daily LEVAQUIN 500 MG ORAL TABLET 005263 LEVOFLOXACIN Inactive LEVAQUIN 750 MG ORAL TABLET 1 po qd x 7 days LEVAQUIN 750 MG ORAL TABLET 994013 LEVOFLOXACIN Inactive ALBUTEROL SULFATE (2.5 MG/3ML) 0.083% INHALATION NEBULIZATION SOLUTION one vial per nebulizer every 4-6 hours as needed ALBUTEROL SULFATE (2.5 MG/3ML) 0.083% INHALATION NEBULIZATION SOLUTION 073255 ALBUTEROL SULFATE Inactive TUSSIONEX PENNKINETIC ER 10-8 MG/5ML ORAL SUSPENSION EXTENDED RELEASE 5ml po q12hr PRN Cough TUSSIONEX PENNKINETIC ER 10-8 MG/5ML ORAL SUSPENSION EXTENDED RELEASE HYDROCOD POLST-CHLORPHEN POLST Inactive FLONASE ALLERGY RELIEF 50 MCG/ACT NASAL SUSPENSION spray twice in each nostril one time daily FLONASE ALLERGY RELIEF 50 MCG/ ACT NASAL SUSPENSION 6532708 FLUTICASONE PROPIONATE Inactive BENZONATATE 200 MG ORAL CAPSULE One capsule tid. BENZONATATE 200 MG ORAL CAPSULE 662158 BENZONATATE Inactive CEPHALEXIN 500 MG ORAL CAPSULE Take one four times a day CEPHALEXIN 500 MG ORAL CAPSULE 815483 CEPHALEXIN Inactive TUSSIONEX PENNKINETIC ER 10-8 MG/5ML ORAL SUSPENSION EXTENDED RELEASE 5ml po q12hr PRN Cough TUSSIONEX PENNKINETIC ER 10-8 MG/5ML ORAL SUSPENSION EXTENDED RELEASE HYDROCOD POLST-CHLORPHEN POLST Inactive TESSALON PERLES 100 MG ORAL CAPSULE 1 to 2 tablets by mouth 3 times daily as needed for cough TESSALON PERLES 100 MG ORAL CAPSULE 612583 BENZONATATE Inactive PROAIR HFA 108 (90 BASE) MCG/ACT INHALATION AEROSOL SOLUTION 2 puffs four times a day as needed PROAIR HFA 108 (90 BASE) MCG/ACT INHALATION AEROSOL SOLUTION ALBUTEROL SULFATE Inactive ZITHROMAX Z-CAROLYN 250 MG ORAL TABLET 2x1day,2c8sfjd ZITHROMAX Z-CAROLYN 250 MG ORAL TABLET 691356 AZITHROMYCIN Inactive ZITHROMAX 250 MG ORAL TABLET 2 po today, then 1 po q days 2-5 ZITHROMAX 250 MG ORAL TABLET 636861 AZITHROMYCIN Inactive VITAMIN D3 33093 UNIT ORAL CAPSULE 1 pill by mouth weekly, for vitamin D deficiency VITAMIN D3 50200 UNIT ORAL CAPSULE CHOLECALCIFEROL Inactive DOXYCYCLINE HYCLATE 100 MG ORAL CAPSULE 1 cap by mouth twice daily DOXYCYCLINE HYCLATE 100 MG ORAL CAPSULE 1612351 DOXYCYCLINE HYCLATE Inactive MEDROL 4 MG ORAL TABLET THERAPY PACK 6 tabs on day 1, 5 tabs on day 2, 4 tabs on day 3, 3 tabs on day 4, 2 tabs on day 5, 1 tab on day 6 MEDROL 4 MG ORAL TABLET THERAPY PACK 688300 METHYLPREDNISOLONE Inactive KEFLEX 500 MG ORAL CAPSULE 1 po qid KEFLEX 500 MG ORAL CAPSULE 457598 CEPHALEXIN Inactive MEDROL 4 MG ORAL TABLET THERAPY PACK 6 tabs on day 1, 5 tabs on day 2, 4 tabs on day 3, 3 tabs on day 4, 2 tabs on day 5, 1 tab on day 6 MEDROL 4 MG ORAL TABLET THERAPY PACK 125314 METHYLPREDNISOLONE Inactive AUGMENTIN 875-125 MG ORAL TABLET 1 po BID x 10 days AUGMENTIN 875-125 MG ORAL TABLET 926821 AMOXICILLIN-POT CLAVULANATE Inactive AUGMENTIN 875-125 MG ORAL TABLET Take one tablet twice a day with food 04/25 AUGMENTIN 875-125 MG ORAL TABLET 171773 AMOXICILLIN-POT CLAVULANATE Inactive DOXYCYCLINE HYCLATE 100 MG ORAL CAPSULE 1 cap by mouth twice daily DOXYCYCLINE HYCLATE 100 MG ORAL CAPSULE 2364582 DOXYCYCLINE HYCLATE Inactive Vital Signs Date Name [...] Measured Encounters Code Encounter Date Provider Facility CPT-44972 Level 3 Est. Patient 22:53:06 COGNOS DEVELOPER Marta Viramnotes [facility]-17123 Level 3 Est. Patient 16:07:34 CDT Marta Ana M [facility] CPT-98246 Level 3 Est. Patient 15:39:01 [facility] Patient 17:31:07 CDT [facility] Patient 05:11:40 CDT Rikki GRANADOS [facility]-22071 Level 2 Est. Patient 14:30:43 COGNOS DEVELOPER Martacarlos Viramontes [facility] CPT-18290 Level 4 Est. Patient 09:14:36 COGNOS DEVELOPER Rikki GRANADOS [facility] CPT-54052 Level 2 Est. Patient 09:07:32 CDT Marta Caalluisblas [facility] CPT-55828 Level 4 Est. Patient 11:55:00 CDT Rikki GRANADOS [facility] CPT-41150 Level 3 Est. Patient 13:25:16 CDT Jennifer Chun MD PhD [facility] CPT-96750 Level 3 Est. Patient 17:31:22 CDT Solomon Alamo MD [facility] CPT-59524 Level 3 Est. Patient 08:02:14 CDT Solomon Alamo MD [facility]-41790 Level 3 Est. Patient 17:23:53 CDT Rikki Stearns [facility] CPT-48422 Level 3 Est. Patient 11:22:41 CDT Darryn Hearn [facility] Procedures Code Procedure Name Date Entry Date Standard Description CPT-24966 Venipuncture Draw Fee 16:09:39 CDT CPT-02908 Venipuncture Draw Fee 12:43:48 COG[employer] DEVELOPER CPT-73558 BMP - LAB USE ONLY 10:32:33 [employer]GNOS DEVELOPER CPT-77571 Venipuncture Draw Fee 10:32:33 COGNOS DEVELOPER CPT-22190 Magnesium - LAB USE ONLY 09:54:30 CDT CPT-15107 TSH - LAB USE ONLY 09:54:30 CDT CPT-36884 Lipid - LAB USE ONLY 09:54:30 CDT CPT-41800 Venipuncture Draw Fee 09:54:29 CDT CPT-77431 Venipuncture Draw Fee 18:27:04 CDT CPT-80600 Chest 2V Frontal and Lat 10:57:00 COGNOS DEVELOPER CPT-44606 Venipuncture Draw Fee 10:56:59 COGNOS DEVELOPER CPT-25929 Venipuncture Draw Fee 09:22:28 COGNOS DEVELOPER CPT-57862 Chest 2V Frontal and Lat 09:22:27 COGNOS DEVELOPER CPT-I/D I/D Abscess 09:43:13 CDT CPT-54432 Venipuncture Draw Fee 08:16:46 COGNOS DEVELOPER CPT-50951 Venipuncture Draw Fee 08:18:55 COGNOS DEVELOPER CPT-45929 Venipuncture Draw Fee 08:31:18 COGNOS DEVELOPER CPT-94535 Venipuncture Draw Fee 11:42:52 COGNOS DEVELOPER CPT-91789 Venipuncture Draw Fee 13:26:37 COGNOS DEVELOPER CPT-22522 Venipuncture Draw Fee 09:23:38 COGNOS DEVELOPER CPT-000 Give Appropriate Tetanus Booster 10:23:50 CDT CPT-48457 Bone Density 08:28:45 CDT CPT-00168 Bone Density 11:35:15 CDT CPT-PV Prev. Care Visit 12:19:00 CDT CPT-13642 Venipuncture Draw Fee 15:02:58 CDT
--- OUTSIDE RECORDS SUMMARY | 2018-01-19 07:14 | XMS REPORT | Clinical Summary ---
Author Author Admin, E Organization [facility] [place] Address Unknown Phone Unavailable Allergies, Adverse Reactions, Alerts Allergy Name Reaction Description Start Date Severity Status Provider SULFA facial swelling Critical Active Jocelyne Naff RETURN TO VENDOR Conditions or Problems Problem Name Problem Code Onset Date Status Entry Date Provider Comment Standard Description Annotate G E R D 530.81 Active Jocelyne Naff RETURN TO VENDOR Esophageal reflux FH COLON CANCER V16.0 Active Jocelyne Naff RETURN TO VENDOR Family history of malignant neoplasm of gastrointestinal [...] Ingrown toenail, left 703.0 Resolved Marta Yokum [employer] Ingrowing nail cellulitis, finger, right 681.00 Active Marta Yokum [employer] MANAGER Cellulitis and abscess of finger, unspecified Cough 786.2 Active Marta Yokum [employer] K[employer] MANAGER Cough Breast microcalcification ICD-793.81 Inactive Jennifer Chun [...] Ingrown toenail, left ICD-703.0 Inactive Marta Yokum [employer] K[employer] MANAGER Medication List Medication Instructions Start Date Stop Date Generic Name NDC Status Provider Patient Instruction AUGMENTIN 875-125 MG TAB 1 po BID x 10 days AMOXICILLIN-POT CLAVULANATE 31618176893 No Longer Active Marta Yokum [employer] MANAGER Active MEDROL (CAROLYN) 4 MG TABS 6 tabs on day 1, 5 tabs on day 2, 4 tabs on day 3, 3 tabs on day 4, 2 tabs on day 5, 1 tab on day 6 METHYLPREDNISOLONE 35735658965 No Longer Active Marta Yokum [employer] KITCHEN MANAGER Active TESSALON PERLES 100 MG CAP 1 to 2 tablets by mouth 3 times daily as needed for cough BENZONATATE 64689855746 Active Marta Yokum [employer] KITCHEN MANAGER Active TUSSIONEX PENNKINETIC ER 10-8 MG/5ML LQCR 5ml po q12hr PRN Cough HYDROCOD POLST-CHLORPHEN POLST 46478175731 Active Marta Yokum FLIGHT KITCHEN MANAGER Active KEFLEX 500 MG CAP 1 po qid CEPHALEXIN 96754604944 No Longer Active Marta Yokum FLIGHT KITCHEN MANAGER Active B COMPLEX 50 ORAL CR-TABS B COMPLEX VITAMINS 52790492221 Active Mrata Viramontes FLIGHT KITCHEN MANAGER Active TUSSIONEX PENNKINETIC ER 10-8 MG/5ML LQCR 5ml po q12hr PRN Cough HYDROCOD POLST-CHLORPHEN POLST 69833699764 No Longer Active Marta Viramontes FL[employer] KITCHEN MANAGER Active VITAMIN D3 03251 UNIT CAPS 1 qWeek x 4 months for vitamin D deficiency 04/09 CHOLECALCIFEROL 65709974181 Active Marta Yoluisum [employer] KITCHEN MANAGER Active CEPHALEXIN 500 MG ORAL CAPS Take one four times a day CEPHALEXIN 37493643467 No Longer Active Marta Yoluisum FLIGHT KITCHEN MANAGER Active BIOTIN 1000 MCG ORAL TABS Take one daily BIOTIN 85153743366 Active Rikki Harms PA Active VITAMIN C 500 MG ORAL CAPS Take one daily ASCORBIC ACID 25482818474 Active Rikki Harms PA Active BENZONATATE 200 MG ORAL CAPS One capsule tid. BENZONATATE 69314818869 No Longer Active Rikki Harms PA Active FLONASE ALLERGY RELIEF 50 MCG/ACT NASAL SUSP spray twice in each nostril one time daily FLUTICASONE PROPIONATE 56078915896 No Longer Active Rikki Harms PA Active TUSSIONEX PENNKINETIC ER 10-8 MG/5ML LQCR 5ml po q12hr PRN Cough HYDROCOD POLST-CHLORPHEN POLST 65506157324 No Longer Active Rikki Harms PA Active NIACIN ER 500 MG ORAL CR-TABS Take one twice daily NIACIN 05137329256 Active Rikki Harms PA Active ALBUTEROL SULFATE 0.083 % NEBU SOLN one vial per nebulizer every 4-6 hours as needed ALBUTEROL SULFATE 76777341665 No Longer Active Rikki Harms PA Active MEDROL (CAROLYN) 4 MG TABS 6 tabs on day 1, 5 tabs on day 2, 4 tabs on day 3, 3 tabs on day 4, 2 tabs on day 5, 1 tab on day 6 METHYLPREDNISOLONE 47193058082 No Longer Active Rikki Harms PA Active LEVAQUIN 750 MG TABS 1 po qd x 7 days LEVOFLOXACIN 70429829989 No Longer Active Rikki Harms PA Active LEVAQUIN 500 MG ORAL TABS Take one tablet daily LEVOFLOXACIN 17302464294 No Longer Active Rikki Harms PA Active PROAIR HFA 108 (90 BASE) MCG/ACT AERS 2 puffs four times a day as needed 2014 ALBUTEROL SULFATE 31226932832 Active Marta Yokum [employer] KITCHEN MANAGER Active LEVAQUIN 500 MG TAB 1 tablet by mouth daily LEVOFLOXACIN 10593497338 No Longer Active Marta Yokum [employer] KITCHEN MANAGER Active CHERATUSSIN AC 100-10 MG/5ML SYRP 1 tsp by mouth every 4 hours as needed for cough GUAIFENESIN-CODEINE 29121232798 No Longer Active Rikki Harms PA Active MUPIROCIN 2 % EXT OINT Use in each nostril in am and pm MUPIROCIN 61458074118 No Longer Active Rikki Harms PA Active DOXYCYCLINE HYCLATE 100 MG ORAL CAPS Take one bid DOXYCYCLINE HYCLATE 80987700679 No Longer Active Rikki Harms PA Active CLARITIN 10 MG TABS 1prn LORATADINE 57296559189 No Longer Active Jocelyne Naff RETURN TO VENDOR Active ASPIRIN 81 MG TABS 1qd ASPIRIN 34464794354 No Longer Active Jocelyne Naff RETURN TO VENDOR Active DOXYCYCLINE HYCLATE 100 MG CAP 1 cap by mouth twice daily DOXYCYCLINE HYCLATE 23439346529 No Longer Active Rikki Harms PA Active VITAMIN D3 29722 UNIT CAPS 1 pill by mouth weekly, for vitamin D deficiency CHOLECALCIFEROL 47308507939 No Longer Active Jennifer Chun MD PhD Active ANASTROZOLE 1 MG ORAL TABS Take one by mouth daily ANASTROZOLE 71955624464 Active Jennifer Chun MD PhD Active ZITHROMAX 250 MG TAB 2 po today, then 1 po q days 2-5 AZITHROMYCIN 67875405285 No Longer Active Rikki Harms PA Active MECLIZINE HCL 25 MG TABS 1 prn MECLIZINE HCL 98395696634 No Longer Active Solomon Alamo MD Active CHERATUSSIN AC SYRP prn as directed GUAIFENESIN- CODEINE SYRP 15161373109 No Longer Active Rikki Harms PA Active MULTIVITAMINS TABS 1qd MULTIPLE VITAMIN 07879599633 No Longer Active Rikki Harms PA Active OMEPRAZOLE 20 MG CPDR 1 PO Q D OMEPRAZOLE 35012905788 Active Jocelyne Naff RETURN TO VENDOR Active ZITHROMAX Z-CAROLYN 250 MG TABS 2x1day,1v4squt AZITHROMYCIN 04656711640 No Longer Active Jocelyne Naff RETURN TO VENDOR Active MULTIVITAMINS TABS 1qd MULTIVITAMINS TABS MULTIPLE VITAMIN Inactive CHERATUSSIN AC SYRP prn as directed CHERATUSSIN AC SYRP GUAIFENESIN-CODEINE SYRP Inactive MECLIZINE HCL 25 MG TABS 1 prn MECLIZINE HCL 25 MG TABS 541469 MECLIZINE HCL Inactive ASPIRIN 81 MG TABS 1qd ASPIRIN 81 MG TABS ASPIRIN Inactive CLARITIN 10 MG TABS 1prn CLARITIN 10 MG TABS 025491 LORATADINE Inactive DOXYCYCLINE HYCLATE 100 MG ORAL CAPS Take one bid DOXYCYCLINE HYCLATE 100 MG ORAL CAPS 5384663 DOXYCYCLINE HYCLATE Inactive MUPIROCIN 2 % EXT OINT Use in each nostril in am and pm MUPIROCIN 2 % EXT OINT 008340 MUPIROCIN Inactive CHERATUSSIN AC 100-10 MG/5ML SYRP 1 tsp by mouth every 4 hours as needed for cough CHERATUSSIN AC 100-10 MG/5ML SYRP 520785 GUAIFENESIN-CODEINE Inactive LEVAQUIN 500 MG TAB 1 tablet by mouth daily LEVAQUIN 500 MG TAB 817073 LEVOFLOXACIN Inactive LEVAQUIN 500 MG ORAL TABS Take one tablet daily LEVAQUIN 500 MG ORAL TABS 599703 LEVOFLOXACIN Inactive LEVAQUIN 750 MG TABS 1 po qd x 7 days LEVAQUIN 750 MG TABS 011963 LEVOFLOXACIN Inactive ALBUTEROL SULFATE 0.083 % NEBU SOLN one vial per nebulizer every 4-6 hours as needed ALBUTEROL SULFATE 0.083 % NEBU SOLN 293535 ALBUTEROL SULFATE Inactive TUSSIONEX PENNKINETIC ER 10-8 MG/5ML LQCR 5ml po q12hr PRN Cough TUSSIONEX PENNKINETIC ER 10-8 MG/5ML LQCR HYDROCOD POLST- CHLORPHEN POLST Inactive FLONASE ALLERGY RELIEF 50 MCG/ACT NASAL SUSP spray twice in each nostril one time daily FLONASE ALLERGY RELIEF 50 MCG/ACT NASAL SUSP 8385398 FLUTICASONE PROPIONATE Inactive BENZONATATE 200 MG ORAL CAPS One capsule tid. BENZONATATE 200 MG ORAL CAPS 808830 BENZONATATE Inactive CEPHALEXIN 500 MG ORAL CAPS Take one four times a day CEPHALEXIN 500 MG ORAL CAPS 665851 CEPHALEXIN Inactive TUSSIONEX PENNKINETIC ER 10-8 MG/5ML LQCR 5ml po q12hr PRN Cough TUSSIONEX PENNKINETIC ER 10-8 MG/5ML LQCR HYDROCOD POLST- CHLORPHEN POLST Inactive ZITHROMAX Z-CAROLYN 250 MG TABS 2x1day,6d5gvbz ZITHROMAX Z-CAROLYN 250 MG TABS 2707267 AZITHROMYCIN Inactive ZITHROMAX 250 MG TAB 2 po today, then 1 po q days 2-5 ZITHROMAX 250 MG TAB 0288421 AZITHROMYCIN Inactive VITAMIN D3 00978 UNIT CAPS 1 pill by mouth weekly, for vitamin D deficiency VITAMIN D3 70081 UNIT CAPS CHOLECALCIFEROL Inactive DOXYCYCLINE HYCLATE 100 MG CAP 1 cap by mouth twice daily DOXYCYCLINE HYCLATE 100 MG CAP 7333530 DOXYCYCLINE HYCLATE Inactive MEDROL (CAROLYN) 4 MG TABS 6 tabs on day 1, 5 tabs on day 2, 4 tabs on day 3, 3 tabs on day 4, 2 tabs on day 5, 1 tab on day 6 MEDROL ( CAROLYN) 4 MG TABS 464323 METHYLPREDNISOLONE Inactive KEFLEX 500 MG CAP 1 po qid KEFLEX 500 MG CAP 355090 CEPHALEXIN Inactive MEDROL (CAROLYN) 4 MG TABS 6 tabs on day 1, 5 tabs on day 2, 4 tabs on day 3, 3 tabs on day 4, 2 tabs on day 5, 1 tab on day 6 MEDROL ( CAROLYN) 4 MG TABS 610753 METHYLPREDNISOLONE Inactive AUGMENTIN 875-125 MG TAB 1 po BID x 10 days AUGMENTIN 875-125 MG TAB 612988 AMOXICILLIN-POT CLAVULANATE Inactive Vital Signs Date Name [...] Panel - Chemistry sodium, serum 142 mmol/L 379-950 7625/07/25 potassium, serum 4.0 mmol/L 3.5-5.2 chloride, serum 107 mmol/L 98-107 carbon dioxide, venous blood 31.6 mmol/L 21.0-32.0 blood glucose 108 mg/dL 65-110 calcium, serum 9.2 mg/dL 8.5-10.1 urea nitrogen, blood 20 mg/dL 7-18 creatinine, serum 0.92 mg/dL 0.55-1.30 sodium, serum 141 mmol/L 588-055 9846/11/11 potassium, serum 4.2 mmol/L 3.5-5.2 chloride, serum 106 mmol/L 98-107 carbon dioxide, venous blood 29.1 mmol/L 21.0-32.0 blood glucose 95 mg/dL 65-110 calcium, serum 8.6 mg/dL 8.5-10.1 urea nitrogen, blood 23 mg/dL 7-18 creatinine, serum 0.83 mg/dL 0.55-1.30 Lab Report: Lipid Panel, Thyroid Stimulating Hormone (L) - Chemistry cholesterol, serum 177 mg/dL 928-855 2479/10/31 triglyceride, serum, fasting 64 mg/dL 30-200 HDL cholesterol, serum 77 mg/dL 32-96 LDL cholesterol, serum 87 mg/dL 0-130 TSH 2.13 m[iU]/mL 0.36-3.74 Lab Report: VITAMIN D, 25-HYDROXY/45591 - Chemistry vitamin D 25-hydroxy, serum 25 ng/mL 30-100 Encounters Code Encounter Date Provider Facility CPT-16456 Level 3 Est. Patient 16:07:34 CDT Marta Viramontes [facility] CPT-03161 Level 3 Est. Patient 15:39:01 CDT Marta Viramontes [facility] CPT-25921 Level 4 Est. Patient 17:31:07 CDT Marta Caalelizabeth [facility] CPT-53350 Level 3 Est. Patient 05:11:40 CDT Rikki GRANADOS [facility]-24189 Level 2 Est. Patient 14:30:43 GARDEN CONSULTANT Marta Viramontes [facility] CPT-71260 Level 4 Est. Patient 09:14:36 GARDEN CONSULTANT Rikki GRANADOS [facility] CPT-01375 Level 2 Est. Patient 09:07:32 CDT Marta Viramontes [facility] CPT-53493 Level 4 Est. Patient 11:55:00 CDT Rikki Stearns [facility] CPT-21658 Level 3 Est. Patient 13:25:16 CDT Jennifer Chun MD PhD [facility] CPT-06093 Level 3 Est. Patient 17:31:22 CDT Solomon Alamo MD [facility] CPT-57620 Level 3 Est. Patient 08:02:14 CDT Solomon Alamo MD [facility] CPT-10009 Level 3 Est. Patient 17:23:53 CDT Rikki GRANADOS [facility] CPT-51435 Level 3 Est. Patient 11:22:41 CDT Darryn Hearn PA [facility] Procedures Code Procedure Name Date Entry Date Standard Description CPT-92488 Venipuncture Draw Fee 16:09:39 CDT CPT-69322 Venipuncture Draw Fee 12:43:48 GARDEN CONSULTANT CPT-94294 BMP - LAB USE ONLY 10:32:33 GARDEN CONSULTANT CPT-06453 Venipuncture Draw Fee 10:32:33 GARDEN CONSULTANT CPT-14012 Magnesium - LAB USE ONLY 09:54:30 CDT CPT-27813 TSH - LAB USE ONLY 09:54:30 CDT CPT-04645 Lipid - LAB USE ONLY 09:54:30 CDT CPT-03434 Venipuncture Draw Fee 09:54:29 CDT CPT-88628 Venipuncture Draw Fee 18:27:04 CDT CPT-10910 Chest 2V Frontal and Lat 10:57:00 GARDEN CONSULTANT CPT-32845 Venipuncture Draw Fee 10:56:59 GARDEN CONSULTANT CPT-37718 Venipuncture Draw Fee 09:22:28 GARDEN CONSULTANT CPT-80143 Chest 2V Frontal and Lat 09:22:27 GARDEN CONSULTANT CPT-I/D I/D Abscess 09:43:13 CDT CPT-47246 Venipuncture Draw Fee 08:16:46 GARDEN CONSULTANT CPT-34820 Venipuncture Draw Fee 08:18:55 GARDEN CONSULTANT CPT-44968 Venipuncture Draw Fee 08:31:18 GARDEN CONSULTANT CPT-35585 Venipuncture Draw Fee 11:42:52 GARDEN CONSULTANT CPT-73059 Venipuncture Draw Fee 13:26:37 GARDEN CONSULTANT CPT-53129 Venipuncture Draw Fee 09:23:38 GARDEN CONSULTANT CPT-000 Give Appropriate Tetanus Booster 10:23:50 CDT CPT-60511 Bone Density 08:28:45 CDT CPT-25039 Bone Density 11:35:15 CDT CPT-PV Prev. Care Visit 12:19:00 CDT CPT-66571 Venipuncture Draw Fee 15:02:58 CDT
--- OUTSIDE RECORDS SUMMARY | 2018-01-19 07:15 | XMS REPORT | Clinical Summary ---
Author Author Admin, E Organization [facility] Address Unknown Phone Unavailable Allergies, Adverse Reactions, Alerts Allergy Name Reaction Description Start Date Severity Status Provider SULFA facial swelling Critical Active Jocelyne Naff ASSOCIATE FACULTY Conditions or Problems Problem Name Problem Code Onset Date Status Entry Date Provider Comment Standard Description Annotate G E R D 530.81 Active Jocelyne Naff ASSOCIATE FACULTY Esophageal reflux FH COLON CANCER V16.0 Active Jocelyne Naff ASSOCIATE FACULTY Family history of malignant neoplasm of gastrointestinal [...] soft tissues Abscess, skin 682.9 Active Darryn RGANADOS Cellulitis and abscess of unspecified sites Cellulitis, [...] a day as needed 2014 ALBUTEROL SULFATE 53340311799 Active Marta Yokum TODDLER GUIDE Active TUSSIONEX PENNKINETIC ER 10-8 MG/5ML LQCR 5ml po q12hr PRN Cough HYDROCOD POLST-CHLORPHEN POLST 48284026882 Active Marta Yokum TODDLER GUIDE Active LEVAQUIN 750 MG TABS 1 po qd x 7 days LEVOFLOXACIN 72355365687 Active Marta Viramontes TODDLER GUIDE Active FLONASE ALLERGY RELIEF 50 MCG/ACT NASAL SUSP spray twice in each nostril one time daily FLUTICASONE PROPIONATE 75679436606 Active Marta Chinoum TODDLER GUIDE Active LEVAQUIN 500 MG TAB 1 tablet by mouth daily LEVOFLOXACIN 72652862999 No Longer Active Marta Tenkum TODDLER GUIDE Active BENZONATATE 200 MG ORAL CAPS One capsule tid. BENZONATATE 41988362676 Active Marta Tenkum TODDLER GUIDE Active CHERATUSSIN AC 100-10 MG/5ML SYRP 1 tsp by mouth every 4 hours as needed for cough GUAIFENESIN-CODEINE 73793965508 No Longer Active Rikki Harms PA Active MUPIROCIN 2 % EXT OINT Use in each nostril in am and pm MUPIROCIN 01244377756 No Longer Active Rikki Harms PA Active DOXYCYCLINE HYCLATE 100 MG ORAL CAPS Take one bid DOXYCYCLINE HYCLATE 19739635488 No Longer Active Rikki Harms PA Active CLARITIN 10 MG TABS 1prn LORATADINE 72980379545 No Longer Active Jocelyne Naff ASSOCIATE FACULTY Active ASPIRIN 81 MG TABS 1qd ASPIRIN 94228919819 No Longer Active Jocelyne Naff ASSOCIATE FACULTY Active DOXYCYCLINE HYCLATE 100 MG CAP 1 cap by mouth twice daily DOXYCYCLINE HYCLATE 06070457601 No Longer Active Rikki Harms PA Active VITAMIN D3 29260 UNIT CAPS 1 pill by mouth weekly, for vitamin D deficiency CHOLECALCIFEROL 71818038257 No Longer Active Jennifer Chun MD PhD Active ANASTROZOLE 1 MG ORAL TABS Take one by mouth daily ANASTROZOLE 93557732804 Active Jennifer Chun MD PhD Active ZITHROMAX 250 MG TAB 2 po today, then 1 po q days 2-5 AZITHROMYCIN 04829453962 No Longer Active Rikki Harms PA Active MECLIZINE HCL 25 MG TABS 1 prn MECLIZINE HCL 47802907021 No Longer Active Solomon Alamo MD Active CHERATUSSIN AC SYRP prn as directed GUAIFENESIN- CODEINE SYRP 13521604450 No Longer Active Rikki Harms PA Active MULTIVITAMINS TABS 1qd MULTIPLE VITAMIN 86491766743 No Longer Active Rikki Harms PA Active OMEPRAZOLE 20 MG CPDR 1 PO Q D OMEPRAZOLE 77123528355 Active Marta Yokum TODDLER GUIDE Active ZITHROMAX Z-CAROLYN 250 MG TABS 2x1day,9d4dcgs AZITHROMYCIN 81384047191 No Longer Active Jocelyne Lovell ASSOCIATE FACULTY Active MULTIVITAMINS TABS 1qd MULTIVITAMINS TABS MULTIPLE VITAMIN Inactive CHERATUSSIN AC SYRP prn as directed CHERATUSSIN AC SYRP GUAIFENESIN-CODEINE SYRP Inactive MECLIZINE HCL 25 MG TABS 1 prn MECLIZINE HCL 25 MG TABS 029331 MECLIZINE HCL Inactive ASPIRIN 81 MG TABS 1qd ASPIRIN 81 MG TABS 183258 ASPIRIN Inactive CLARITIN 10 MG TABS 1prn CLARITIN 10 MG TABS 059484 LORATADINE Inactive DOXYCYCLINE HYCLATE 100 MG ORAL CAPS Take one bid DOXYCYCLINE HYCLATE 100 MG ORAL CAPS 7477879 DOXYCYCLINE HYCLATE Inactive MUPIROCIN 2 % EXT OINT Use in each nostril in am and pm MUPIROCIN 2 % EXT OINT 351757 MUPIROCIN Inactive CHERATUSSIN AC 100-10 MG/5ML SYRP 1 tsp by mouth every 4 hours as needed for cough CHERATUSSIN AC 100-10 MG/5ML SYRP 839439 GUAIFENESIN-CODEINE Inactive LEVAQUIN 500 MG TAB 1 tablet by mouth daily LEVAQUIN 500 MG TAB 814260 LEVOFLOXACIN Inactive ZITHROMAX Z-CAROLYN 250 MG TABS 2x1day,5p6nlyu ZITHROMAX Z-CAROLYN 250 MG TABS 3286434 AZITHROMYCIN Inactive ZITHROMAX 250 MG TAB 2 po today, then 1 po q days 2-5 ZITHROMAX 250 MG TAB 8243940 AZITHROMYCIN Inactive VITAMIN D3 32072 UNIT CAPS 1 pill by mouth weekly, for vitamin D deficiency VITAMIN D3 28959 UNIT CAPS CHOLECALCIFEROL Inactive DOXYCYCLINE HYCLATE 100 MG CAP 1 cap by mouth twice daily DOXYCYCLINE HYCLATE 100 MG CAP 7468522 DOXYCYCLINE HYCLATE Inactive Vital Signs Date Name [...] Report: CBC W/DIFF - Hematology hemoglobin, blood 13.6 g/dL 12.0-16.0 hematocrit, blood 41.2 % 36.0-46.0 mean corpuscular volume, RBC 90 fL 80-97 mean corpuscular hemoglobin, RBC 29.7 pg 27.0-31.2 mean corpuscular hemoglobin concentration, RBC 32.9 G/DL % 31.8- 35.4 red blood cell distribution width 15.5 % 11.6-14.8 platelet count 191 10^3/MM^3 10*3/mm3 900-298 2582/01/07 erythrocyte (RBC) count 4.56 10^6/MM^3 10*6/mm3 4.04-5.48 lymphocytes as percent of blood leukocytes 21.3 % 20.5-51.1 monocytes as percent of blood leukocytes 8.8 % 1.7-9.3 neutrophils as percent of blood leukocytes 67.9 % 42.2-75.2 leukocyte count, blood 11.7 10^3/MM^3 10*3/mm3 4.6-10.2 leukocyte count, blood 9.8 [...] % 11.6-14.8 platelet count 195 10^3/MM^3 10*3/mm3 693-879 6572/01/28 leukocyte count, blood 11.9 10^3/MM^3 10*3/mm3 4.6-10.2 hematocrit, blood 37.0 % 36.0-46.0 mean corpuscular volume, RBC 93 fL 80-97 mean corpuscular hemoglobin, RBC 31.1 pg 27.0-31.2 mean corpuscular hemoglobin concentration, RBC 33.5 G/DL % 31.8- 35.4 red blood cell distribution width 16.4 % 11.6-14.8 platelet count 278 10^3/MM^3 10*3/mm3 954-426 1249/02/04 leukocyte count, blood 8.5 10^3/MM^3 10*3/mm3 4.6-10.2 [...] % 11.6-14.8 platelet count 326 10^3/MM^3 10*3/mm3 561-251 9804/01/28 neutrophils as percent of blood leukocytes 53.5 [...] % 11.6-14.8 platelet count 240 10^3/MM^3 10*3/mm3 080-047 6654/02/10 neutrophils as percent of blood leukocytes 63.7 % 42.2-75.2 monocytes as percent of blood leukocytes 1.8 % 1.7-9.3 lymphocytes as percent of blood leukocytes 31.7 % 20.5-51.1 erythrocyte (RBC) count 3.83 10^6/MM^3 10*6/mm3 4.04-5.48 hemoglobin, blood 11.9 g/dL 12.0-16.0 leukocyte count, blood 3.4 10^3/MM^3 10*3/mm3 4.6-10.2 hematocrit, blood 35.2 % 36.0-46.0 mean corpuscular volume, RBC 91 fL 80-97 mean corpuscular hemoglobin, RBC 30.0 pg 27.0-31.2 mean corpuscular hemoglobin concentration, RBC 32.9 G/DL % 31.8- 35.4 red blood cell distribution width 18.8 % 11.6-14.8 platelet count 308 10^3/MM^3 10*3/mm3 614-538 9170/02/17 neutrophils as percent of blood leukocytes 20.2 % 42.2-75.2 monocytes as percent of blood leukocytes 31.9 % 1.7-9.3 lymphocytes as percent of blood leukocytes 46.9 % 20.5-51.1 erythrocyte (RBC) count 3.86 10^6/MM^3 10*6/mm3 4.04-5.48 hemoglobin, blood 11.6 g/dL 12.0-16.0 leukocyte count, blood 6.6 10^3/MM^3 10*3/mm3 4.6-10.2 hematocrit, blood 36.9 % 36.0-46.0 mean corpuscular volume, RBC 92 fL 80-97 mean corpuscular hemoglobin, RBC 30.5 pg 27.0-31.2 mean corpuscular hemoglobin concentration, RBC 33.2 G/DL % 31.8- 35.4 red blood cell distribution width 19.2 % 11.6-14.8 platelet count 433 10^3/MM^3 10*3/mm3 053-156 3404/02/25 neutrophils as percent of blood leukocytes 61.9 % 42.2-75.2 monocytes as percent of blood leukocytes 8.9 % 1.7-9.3 lymphocytes as percent of blood leukocytes 27.4 % 20.5-51.1 erythrocyte (RBC) count 4.02 10^6/MM^3 10*6/mm3 4.04-5.48 hemoglobin, blood 12.2 g/dL 12.0-16.0 leukocyte count, blood 2.0 10^3/MM^3 10*3/mm3 4.6-10.2 hematocrit, blood 34.9 % 36.0-46.0 mean corpuscular volume, RBC 90 fL 80-97 mean corpuscular hemoglobin, RBC 30.4 pg 27.0-31.2 mean corpuscular hemoglobin concentration, RBC 33.6 G/DL % 31.8- 35.4 red blood cell distribution width 13.9 % 11.6-14.8 platelet count 203 10^3/MM^3 10*3/mm3 010-416 1324/11/11 neutrophils as percent of blood leukocytes 21.1 % 42.2-75.2 monocytes as percent of blood leukocytes 14.8 % 1.7-9.3 lymphocytes as percent of blood leukocytes 50.0 % 20.5-51.1 erythrocyte (RBC) count 3.87 10^6/MM^3 10*6/mm3 4.04-5.48 hemoglobin, blood 11.7 g/dL 12.0-16.0 leukocyte count, blood 8.5 10^3/MM^3 10*3/mm3 4.6-10.2 hematocrit, blood 40.0 % 36.0-46.0 mean corpuscular volume, RBC 91 fL 80-97 mean corpuscular hemoglobin, RBC 30.4 pg 27.0-31.2 mean corpuscular hemoglobin concentration, RBC 33.5 G/DL % 31.8- 35.4 red blood cell distribution width 14.9 % 11.6-14.8 platelet count 143 10^3/MM^3 10*3/mm3 354-156 6626/11/18 neutrophils as percent of blood leukocytes 62.1 % 42.2-75.2 monocytes as percent of blood leukocytes 10.4 % 1.7-9.3 lymphocytes as percent of blood leukocytes 20.8 % 20.5-51.1 erythrocyte (RBC) count 4.41 10^6/MM^3 10*6/mm3 4.04-5.48 hemoglobin, blood 13.4 g/dL 12.0-16.0 leukocyte count, blood 2.1 10^3/MM^3 10*3/mm3 4.6-10.2 [...] % 11.6-14.8 platelet count 139 10^3/MM^3 10*3/mm3 925-117 9075/12/02 leukocyte count, blood 6.7 10^3/MM^3 10*3/mm3 4.6-10.2 hematocrit, blood 35.1 % 36.0-46.0 mean corpuscular volume, RBC 92 fL 80-97 mean corpuscular hemoglobin, RBC 30.5 pg 27.0-31.2 mean corpuscular hemoglobin concentration, RBC 33.2 G/DL % 31.8- 35.4 red blood cell distribution width 15.4 % 11.6-14.8 platelet count 258 10^3/MM^3 10*3/mm3 128-104 3068/12/02 neutrophils as percent of blood leukocytes 52.8 % 42.2-75.2 monocytes as percent of blood leukocytes 11.8 % 1.7-9.3 lymphocytes as percent of blood leukocytes 31.0 % 20.5-51.1 erythrocyte (RBC) count 3.84 10^6/MM^3 10*6/mm3 4.04-5.48 hemoglobin, blood 11.7 g/dL 12.0-16.0 leukocyte count, blood 5.3 10^3/MM^3 10*3/mm3 4.6-10.2 hematocrit, blood 35.3 % 36.0-46.0 mean corpuscular volume, RBC 93 fL 80-97 mean corpuscular hemoglobin, RBC 31.3 pg 27.0-31.2 mean corpuscular hemoglobin concentration, RBC 33.7 G/DL % 31.8- 35.4 red blood cell distribution width 15.6 % 11.6-14.8 platelet count 240 10^3/MM^3 10*3/mm3 274-426 7240/12/09 neutrophils as percent of blood leukocytes 67.9 % 42.2-75.2 monocytes as percent of blood leukocytes 10.2 % 1.7-9.3 lymphocytes as percent of blood leukocytes 19.4 % 20.5-51.1 erythrocyte (RBC) count 3.79 10^6/MM^3 10*6/mm3 4.04-5.48 hemoglobin, blood 11.9 g/dL 12.0-16.0 leukocyte count, blood 3.2 10^3/MM^3 10*3/mm3 4.6-10.2 [...] % 11.6-14.8 platelet count 158 10^3/MM^3 10*3/mm3 028-272 5602/12/18 leukocyte count, blood 8.8 10^3/MM^3 10*3/mm3 4.6-10.2 [...] % 11.6-14.8 platelet count 207 10^3/MM^3 10*3/mm3 561-850 5436/12/23 leukocyte count, blood 6.2 10^3/MM^3 10*3/mm3 4.6-10.2 [...] % 11.6-14.8 platelet count 183 10^3/MM^3 10*3/mm3 872-346 5767/12/30 leukocyte count, blood 5.2 10^3/MM^3 10*3/mm3 4.6-10.2 [...] Panel - Chemistry sodium, serum 141 mmol/L 475-440 5113/01/14 potassium, serum 4.9 mmol/L 3.5-5.2 chloride, serum 107 mmol/L 98-107 carbon dioxide, venous blood 28.9 mmol/L 21.0-32.0 blood glucose 100 mg/dL 65-110 urea nitrogen, blood 19 mg/dL 7-18 creatinine, serum 0.90 mg/dL 0.60-1.30 alanine aminotransferase (SGPT), serum 28 U/L 12-78 aspartate aminotransferase (SGOT), serum 24 U/L 15-37 calcium, serum 8.2 mg/dL 8.5-10.1 bilirubin, serum, total 0.40 mg/dL 0.00-1.00 sodium, serum 138 mmol/L 201-117 8113/11/04 carbon dioxide, venous blood 27.7 mmol/L 21.0-32.0 potassium, serum 4.9 mmol/L 3.5-5.2 chloride, serum 104 mmol/L 98-107 blood glucose 92 mg/dL 65-110 urea nitrogen, blood 24 mg/dL 7-18 creatinine, serum 0.95 mg/dL 0.55-1.30 alanine aminotransferase (SGPT), serum 34 U/L 12-78 aspartate aminotransferase (SGOT), serum 23 U/L 15-37 calcium, serum 8.9 mg/dL 8.5-10.1 bilirubin, serum, total 0.70 mg/dL 0.00-1.00 Lab Report: CBC W/DIFF, Comp. Metabolic Panel - Hematology leukocyte count, blood 3.8 10^3/MM^3 10*3/mm3 4.6-10.2 neutrophils as percent of blood leukocytes 71.6 % 42.2-75.2 monocytes as percent of blood leukocytes 0.8 % 1.7-9.3 lymphocytes as percent of blood leukocytes 21.3 % 20.5-51.1 erythrocyte (RBC) count 4.61 10^6/MM^3 10*6/mm3 4.04-5.48 neutrophils as percent of blood leukocytes 66.4 [...] % 11.6-14.8 platelet count 376 10^3/MM^3 10*3/mm3 044-851 2213/11/04 hemoglobin, blood 13.8 g/dL 12.0-16.0 hematocrit, blood 41.4 % 36.0-46.0 mean corpuscular volume, RBC 90 fL 80-97 mean corpuscular hemoglobin, RBC 30.0 pg 27.0-31.2 mean corpuscular hemoglobin concentration, RBC 33.4 G/DL % 31.8- 35.4 red blood cell distribution width 14.4 % 11.6-14.8 platelet count 216 10^3/MM^3 10*3/mm3 142-424 Lab Report: CBC, Comp. Metabolic Panel, Lipid Panel - Chemistry sodium, serum 140 mmol/L 567-882 2082/07/13 potassium, serum 4.5 mmol/L 3.5-5.2 chloride, serum 106 mmol/L 98-107 carbon dioxide, venous blood 27.7 mmol/L 21.0-32.0 blood glucose 105 mg/dL 65-110 urea nitrogen, blood 14 mg/dL 7-18 creatinine, serum 0.90 mg/dL 0.60-1.30 alanine aminotransferase (SGPT), serum 29 U/L 12-78 aspartate aminotransferase (SGOT), serum 22 U/L 15-37 calcium, serum 9.4 mg/dL 8.5-10.1 bilirubin, serum, total 0.70 mg/dL 0.00-1.00 cholesterol, serum 160 mg/dL 520-140 8126/07/13 triglyceride, serum, fasting 63 mg/dL 30-200 HDL cholesterol, serum 68 mg/dL 32-96 LDL cholesterol, serum 79 mg/dL 0-130 Lab Report: CBC, Comp. Metabolic Panel, Lipid Panel - Hematology erythrocyte (RBC) count 4.79 10^6/MM^3 10*6/mm3 4.04-5.48 hemoglobin, blood 13.9 g/dL 12.0-16.0 hematocrit, blood 42.2 % 36.0-46.0 mean corpuscular volume, RBC 88 fL 80-97 mean corpuscular hemoglobin, RBC 29.1 pg 27.0-31.2 leukocyte count, blood 5.0 10^3/MM^3 10*3/mm3 4.6-10.2 mean corpuscular hemoglobin concentration, RBC 33.0 G/DL % 31.8- 35.4 red blood cell distribution width 15.7 % 11.6-14.8 platelet count 263 10^3/MM^3 10*3/mm3 142-424 Lab Report: Comp. Metabolic Panel - Chemistry sodium, serum 141 mmol/L 008-896 1257/11/11 carbon dioxide, venous blood 26.8 mmol/L 21.0-32.0 potassium, serum 4.2 mmol/L 3.5-5.2 chloride, serum 106 mmol/L 98-107 blood glucose 95 mg/dL 65-110 urea nitrogen, blood 18 mg/dL 7-18 creatinine, serum 0.70 mg/dL 0.55-1.30 alanine aminotransferase (SGPT), serum 33 U/L 12-78 aspartate aminotransferase (SGOT), serum 22 U/L 15-37 calcium, serum 8.5 mg/dL 8.5-10.1 bilirubin, serum, total 0.30 mg/dL 0.00-1.00 sodium, serum 141 mmol/L 684-871 6260/02/10 creatinine, serum 0.90 mg/dL 0.60-1.30 alanine aminotransferase (SGPT), serum 29 U/L 12-78 aspartate aminotransferase (SGOT), serum 21 U/L 15-37 calcium, serum 8.3 mg/dL 8.5-10.1 bilirubin, serum, total 0.40 mg/dL 0.00-1.00 potassium, serum 5.2 mmol/L 3.5-5.2 chloride, serum 106 mmol/L 98-107 carbon dioxide, venous blood 27.8 mmol/L 21.0-32.0 blood glucose 111 mg/dL 65-110 urea nitrogen, blood 18 mg/dL 7-18 sodium, serum 143 mmol/L 631-695 8651/12/23 carbon dioxide, venous blood 24.6 mmol/L 21.0-32.0 potassium, serum 4.1 mmol/L 3.5-5.2 chloride, serum 107 mmol/L 98-107 blood glucose 98 mg/dL 65-110 urea nitrogen, blood 22 mg/dL 7-18 creatinine, serum 0.77 mg/dL 0.55-1.30 alanine aminotransferase (SGPT), serum 28 U/L aspartate aminotransferase (SGOT), serum 20 U/L 15-37 calcium, serum 8.6 mg/dL 8.5-10.1 bilirubin, serum, total 0.30 mg/dL 0.00-1.00 sodium, serum 142 mmol/L 684-343 2127/12/09 carbon dioxide, venous blood 28.5 mmol/L 21.0-32.0 potassium, serum 5.0 mmol/L 3.5-5.2 chloride, serum 109 mmol/L 98-107 blood glucose 91 mg/dL 65-110 urea nitrogen, blood 27 mg/dL 7-18 creatinine, serum 0.88 mg/dL 0.55-1.30 alanine aminotransferase (SGPT), serum 31 U/L aspartate aminotransferase (SGOT), serum 18 U/L -37 calcium, serum 8.9 mg/dL 8.5-10.1 bilirubin, serum, total 0.40 mg/dL 0.00-1.00 sodium, serum 140 mmol/L 968-321 1961/12/16 carbon dioxide, venous blood 25.4 mmol/L 21.0-32.0 potassium, serum 4.1 mmol/L 3.5-5.2 chloride, serum 104 mmol/L 98-107 blood glucose 110 mg/dL 65-110 urea nitrogen, blood 24 mg/dL 7-18 creatinine, serum 0.87 mg/dL 0.55-1.30 alanine aminotransferase (SGPT), serum 35 U/L aspartate aminotransferase (SGOT), serum 21 U/L 15-37 calcium, serum 8.4 mg/dL 8.5-10.1 bilirubin, serum, total 0.50 mg/dL 0.00-1.00 sodium, serum 141 mmol/L 031-124 5419/12/02 creatinine, serum 0.75 mg/dL 0.55-1.30 alanine aminotransferase (SGPT), serum 31 U/L aspartate aminotransferase (SGOT), serum 20 U/L - calcium, serum 8.7 mg/dL 8.5-10.1 bilirubin, serum, total 0.30 mg/dL 0.00-1.00 carbon dioxide, venous blood 25.9 mmol/L 21.0-32.0 potassium, serum 4.7 mmol/L 3.5-5.2 chloride, serum 106 mmol/L 98-107 blood glucose 78 mg/dL 65-110 urea nitrogen, blood 24 mg/dL - sodium, serum 141 mmol/L 827-050 8433/11/18 creatinine, serum 0.77 mg/dL 0.55-1.30 alanine aminotransferase (SGPT), serum 30 U/L aspartate aminotransferase (SGOT), serum 15 U/L calcium, serum 8.3 mg/dL 8.5-10.1 bilirubin, serum, total 0.30 mg/dL 0.00-1.00 carbon dioxide, venous blood 26.2 mmol/L 21.0-32.0 potassium, serum 4.4 mmol/L 3.5-5.2 chloride, serum 106 mmol/L 98-107 blood glucose 102 mg/dL 65-110 urea nitrogen, blood 24 mg/dL - sodium, serum 139 mmol/L 076-324 8093/11/25 creatinine, serum 0.79 mg/dL 0.55-1.30 alanine aminotransferase (SGPT), serum 40 U/L aspartate aminotransferase (SGOT), serum 22 U/L calcium, serum 8.5 mg/dL 8.5-10.1 bilirubin, serum, total 0.80 mg/dL 0.00-1.00 carbon dioxide, venous blood 27.9 mmol/L 21.0-32.0 potassium, serum 4.7 mmol/L 3.5-5.2 chloride, serum 105 mmol/L 98-107 blood glucose 94 mg/dL 65-110 urea nitrogen, blood 21 mg/dL 7-18 sodium, serum 139 mmol/L 490-475 1902/12/30 carbon dioxide, venous blood 28.2 mmol/L 21.0-32.0 potassium, serum 3.9 mmol/L 3.5-5.2 chloride, serum 105 mmol/L 98-107 blood glucose 91 mg/dL 65-110 urea nitrogen, blood 17 mg/dL 7-18 creatinine, serum 0.81 mg/dL 0.55-1.30 alanine aminotransferase (SGPT), serum 29 U/L 12-78 aspartate aminotransferase (SGOT), serum 22 U/L 15-37 calcium, serum 8.8 mg/dL 8.5-10.1 bilirubin, serum, total 0.50 mg/dL 0.00-1.00 Lab Report: VITAMIN D, 25-HYDROXY/47526 - Chemistry vitamin D 25-hydroxy, serum 24 ng/mL 30-100 Encounters Code Encounter Date Provider Facility CPT-58455 Level 2 Est. Patient 14:30:43 REAL ESTATE ADMINISTRATIVE ASSISTANT Marta Viramontes [facility] CPT-18433 Level 4 Est. Patient 09:14:36 REAL ESTATE ADMINISTRATIVE ASSISTANT Rikki GRANADOS [facility] CPT-13674 Level 2 Est. Patient 09:07:32 CDT Marta Viramontes [facility] CPT-83820 Level 4 Est. Patient 11:55:00 CDT Rikki GRANADOS [facility] CPT-14456 Level 3 Est. Patient 13:25:16 CDT Jennifer Chun MD PhD [facility] CPT-26570 Level 3 Est. Patient 17:31:22 CDT Solomon Alamo MD [facility] CPT-16803 Level 3 Est. Patient 08:02:14 CDT Solomon Alamo MD [facility] CPT-46497 Level 3 Est. Patient 17:23:53 CDT Rikki Stearns PA [facility] CPT-54902 Level 3 Est. Patient 11:22:41 CDT Darryn Hearn [facility] Procedures Code Procedure Name Date Entry Date Standard Description CPT-17291 Venipuncture Draw Fee 09:22:28 REAL ESTATE ADMINISTRATIVE ASSISTANT CPT-01538 Chest 2V Frontal and Lat 09:22:27 REAL ESTATE ADMINISTRATIVE ASSISTANT CPT-I/D I/D Abscess 09:43:13 CDT CPT-20766 Venipuncture Draw Fee 08:16:46 REAL ESTATE ADMINISTRATIVE ASSISTANT CPT-80663 Venipuncture Draw Fee 08:18:55 REAL ESTATE ADMINISTRATIVE ASSISTANT CPT-69590 Venipuncture Draw Fee 08:31:18 REAL ESTATE ADMINISTRATIVE ASSISTANT CPT-54436 Venipuncture Draw Fee 11:42:52 REAL ESTATE ADMINISTRATIVE ASSISTANT CPT-10016 Venipuncture Draw Fee 13:26:37 REAL ESTATE ADMINISTRATIVE ASSISTANT CPT-39917 Venipuncture Draw Fee 09:23:38 REAL ESTATE ADMINISTRATIVE ASSISTANT CPT-000 Give Appropriate Tetanus Booster 10:23:50 CDT CPT-67058 Bone Density 08:28:45 CDT CPT-91493 Bone Density 11:35:15 CDT CPT-PV Prev. Care Visit 12:19:00 CDT CPT-40832 Venipuncture Draw Fee 15:02:58 CDT
--- OUTSIDE RECORDS SUMMARY | 2018-01-19 07:16 | XMS REPORT | Clinical Summary ---
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 Jocelyne Naff INSPECTOR BICYCLE Esophageal reflux FH COLON CANCER V16.0 Active Jocelyne Naff INSPECTOR BICYCLE Family history of malignant neoplasm of gastrointestinal [...] Rikki Harms PA Rash ICD-782.1 Inactive Rikki Daryn GRANADOS Upper respiratory infection, acute ICD-465.9 Inactive Rikki Daryn PA Chemotherapy ICD-V58.11 Inactive Rikki Daryn GRANADOS Cough, chronic ICD-786.2 Inactive Rikki Daryn GRANADOS Ingrown toenail, left ICD-703.0 Inactive Marta Viramontes APRN Medication List Medication Instructions Start Date Stop Date Generic Name NDC Status Provider Patient Instruction VITAMIN D3 19156 UNIT CAPS 1 qWeek x 4 months for vitamin D deficiency 04/09 CHOLECALCIFEROL 19726484244 Active Marta Viramontes APRN Active CEPHALEXIN 500 MG ORAL CAPS Take one four times a day CEPHALEXIN 98279004392 No Longer Active Marta Viramontes APRN Active BIOTIN 1000 MCG ORAL TABS Take one daily BIOTIN 25750837163 Active Rikki Daryn GRANADOS Active VITAMIN C 500 MG ORAL CAPS Take one daily ASCORBIC ACID 10428793076 Active Rikki Harms PA Active BENZONATATE 200 MG ORAL CAPS One capsule tid. BENZONATATE 14005950299 No Longer Active Rikki Harms PA Active FLONASE ALLERGY RELIEF 50 MCG/ACT NASAL SUSP spray twice in each nostril one time daily FLUTICASONE PROPIONATE 30045552514 No Longer Active Rikki Harms PA Active TUSSIONEX PENNKINETIC ER 10-8 MG/5ML LQCR 5ml po q12hr PRN Cough HYDROCOD POLST-CHLORPHEN POLST 05273296535 No Longer Active Rikki Harms PA Active NIACIN ER 500 MG ORAL CR-TABS Take one twice daily NIACIN 95584264042 Active Rikki Harms PA Active ALBUTEROL SULFATE 0.083 % NEBU SOLN one vial per nebulizer every 4-6 hours as needed ALBUTEROL SULFATE 42201590171 No Longer Active Rikki Harms PA Active MEDROL (CAROLYN) 4 MG TABS 6 tabs on day 1, 5 tabs on day 2, 4 tabs on day 3, 3 tabs on day 4, 2 tabs on day 5, 1 tab on day 6 METHYLPREDNISOLONE 46904381762 No Longer Active Rikki Harms PA Active LEVAQUIN 750 MG TABS 1 po qd x 7 days LEVOFLOXACIN 50824899393 No Longer Active Rikki Harms PA Active LEVAQUIN 500 MG ORAL TABS Take one tablet daily LEVOFLOXACIN 51999436291 No Longer Active Rikki Harms PA Active PROAIR HFA 108 (90 BASE) MCG/ACT AERS 2 puffs four times a day as needed 2014 ALBUTEROL SULFATE 21570216759 Active Marta Yokum PACKAGING SALES CONSULTANT Active LEVAQUIN 500 MG TAB 1 tablet by mouth daily LEVOFLOXACIN 88398442498 No Longer Active Marta Yokum P[employer]AGING SALES CONSULTANT Active CHERATUSSIN AC 100-10 MG/5ML SYRP 1 tsp by mouth every 4 hours as needed for cough GUAIFENESIN-CODEINE 09507060095 No Longer Active Rikki Harms PA Active MUPIROCIN 2 % EXT OINT Use in each nostril in am and pm MUPIROCIN 94839195394 No Longer Active Rikki Harms PA Active DOXYCYCLINE HYCLATE 100 MG ORAL CAPS Take one bid DOXYCYCLINE HYCLATE 04519734503 No Longer Active Rikki Harms PA Active CLARITIN 10 MG TABS 1prn LORATADINE 54037160763 No Longer Active Jocelyne Naff INSPECTOR BICYCLE Active ASPIRIN 81 MG TABS 1qd ASPIRIN 02226746539 No Longer Active Jocelyne Naff INSPECTOR BICYCLE Active DOXYCYCLINE HYCLATE 100 MG CAP 1 cap by mouth twice daily DOXYCYCLINE HYCLATE 68759496350 No Longer Active Rikki Harms PA Active VITAMIN D3 99872 UNIT CAPS 1 pill by mouth weekly, for vitamin D deficiency CHOLECALCIFEROL 37529610109 No Longer Active Jennifer Chun MD PhD Active ANASTROZOLE 1 MG ORAL TABS Take one by mouth daily ANASTROZOLE 35605464368 Active Jennifer Chun MD PhD Active ZITHROMAX 250 MG TAB 2 po today, then 1 po q days 2-5 AZITHROMYCIN 64786477317 No Longer Active Rikki Harms PA Active MECLIZINE HCL 25 MG TABS 1 prn MECLIZINE HCL 08669831878 No Longer Active Solomon Alamo MD Active CHERATUSSIN AC SYRP prn as directed GUAIFENESIN- CODEINE SYRP 35608748164 No Longer Active Rikki Harms PA Active MULTIVITAMINS TABS 1qd MULTIPLE VITAMIN 99954350847 No Longer Active Rikki Harms PA Active OMEPRAZOLE 20 MG CPDR 1 PO Q D OMEPRAZOLE 06329376579 Active Rikki Harms PA Active ZITHROMAX Z-CAROLYN 250 MG TABS 2x1day,6n8wtca AZITHROMYCIN 38401309041 No Longer Active Jocelyne Lovell INSPECTOR BICYCLE Active MULTIVITAMINS TABS 1qd MULTIVITAMINS TABS MULTIPLE VITAMIN Inactive CHERATUSSIN AC SYRP prn as directed CHERATUSSIN AC SYRP GUAIFENESIN-CODEINE SYRP Inactive MECLIZINE HCL 25 MG TABS 1 prn MECLIZINE HCL 25 MG TABS 768468 MECLIZINE HCL Inactive ASPIRIN 81 MG TABS 1qd ASPIRIN 81 MG TABS ASPIRIN Inactive CLARITIN 10 MG TABS 1prn CLARITIN 10 MG TABS 376905 LORATADINE Inactive DOXYCYCLINE HYCLATE 100 MG ORAL CAPS Take one bid DOXYCYCLINE HYCLATE 100 MG ORAL CAPS 2655397 DOXYCYCLINE HYCLATE Inactive MUPIROCIN 2 % EXT OINT Use in each nostril in am and pm MUPIROCIN 2 % EXT OINT 701146 MUPIROCIN Inactive CHERATUSSIN AC 100-10 MG/5ML SYRP 1 tsp by mouth every 4 hours as needed for cough CHERATUSSIN AC 100-10 MG/5ML SYRP 566369 GUAIFENESIN-CODEINE Inactive LEVAQUIN 500 MG TAB 1 tablet by mouth daily LEVAQUIN 500 MG TAB 067939 LEVOFLOXACIN Inactive LEVAQUIN 500 MG ORAL TABS Take one tablet daily LEVAQUIN 500 MG ORAL TABS 772609 LEVOFLOXACIN Inactive LEVAQUIN 750 MG TABS 1 po qd x 7 days LEVAQUIN 750 MG TABS 453752 LEVOFLOXACIN Inactive ALBUTEROL SULFATE 0.083 % NEBU SOLN one vial per nebulizer every 4-6 hours as needed ALBUTEROL SULFATE 0.083 % NEBU SOLN 529625 ALBUTEROL SULFATE Inactive TUSSIONEX PENNKINETIC ER 10-8 MG/5ML LQCR 5ml po q12hr PRN Cough TUSSIONEX PENNKINETIC ER 10-8 MG/5ML LQCR HYDROCOD POLST- CHLORPHEN POLST Inactive FLONASE ALLERGY RELIEF 50 MCG/ACT NASAL SUSP spray twice in each nostril one time daily FLONASE ALLERGY RELIEF 50 MCG/ACT NASAL SUSP 7488280 FLUTICASONE PROPIONATE Inactive BENZONATATE 200 MG ORAL CAPS One capsule tid. BENZONATATE 200 MG ORAL CAPS 683573 BENZONATATE Inactive CEPHALEXIN 500 MG ORAL CAPS Take one four times a day CEPHALEXIN 500 MG ORAL CAPS 277576 CEPHALEXIN Inactive ZITHROMAX Z-CAROLYN 250 MG TABS 2x1day,3o2bllp ZITHROMAX Z-CAROLYN 250 MG TABS 7073396 AZITHROMYCIN Inactive ZITHROMAX 250 MG TAB 2 po today, then 1 po q days 2-5 ZITHROMAX 250 MG TAB 7432539 AZITHROMYCIN Inactive VITAMIN D3 71176 UNIT CAPS 1 pill by mouth weekly, for vitamin D deficiency VITAMIN D3 99896 UNIT CAPS CHOLECALCIFEROL Inactive DOXYCYCLINE HYCLATE 100 MG CAP 1 cap by mouth twice daily DOXYCYCLINE HYCLATE 100 MG CAP 2301491 DOXYCYCLINE HYCLATE Inactive MEDROL (CAROLYN) 4 MG TABS 6 tabs on day 1, 5 tabs on day 2, 4 tabs on day 3, 3 tabs on day 4, 2 tabs on day 5, 1 tab on day 6 MEDROL ( CAROLYN) 4 MG TABS 847237 METHYLPREDNISOLONE Inactive Vital Signs Date Name Value [...] Panel - Chemistry sodium, serum 142 mmol/L 000-978 7076/07/25 potassium, serum 4.0 mmol/L 3.5-5.2 chloride, serum [...] % 11.6-14.8 platelet count 269 10^3/MM^3 10*3/mm3 343-055 5438/11/25 leukocyte count, blood 2.1 10^3/MM^3 10*3/mm3 4.6-10.2 [...] % 11.6-14.8 platelet count 139 10^3/MM^3 10*3/mm3 268-222 6558/12/02 leukocyte count, blood 6.7 10^3/MM^3 10*3/mm3 4.6-10.2 [...] % 11.6-14.8 platelet count 258 10^3/MM^3 10*3/mm3 697-398 3719/12/09 leukocyte count, blood 5.3 10^3/MM^3 10*3/mm3 4.6-10.2 [...] % 11.6-14.8 platelet count 240 10^3/MM^3 10*3/mm3 357-711 8666/12/16 leukocyte count, blood 3.2 10^3/MM^3 10*3/mm3 4.6-10.2 [...] % 11.6-14.8 platelet count 158 10^3/MM^3 10*3/mm3 171-660 4977/12/18 leukocyte count, blood 8.8 10^3/MM^3 10*3/mm3 4.6-10.2 [...] % 11.6-14.8 platelet count 207 10^3/MM^3 10*3/mm3 440-744 7433/12/23 leukocyte count, blood 6.2 10^3/MM^3 10*3/mm3 4.6-10.2 [...] % 11.6-14.8 platelet count 183 10^3/MM^3 10*3/mm3 787-666 9626/11/18 leukocyte count, blood 8.5 10^3/MM^3 10*3/mm3 4.6-10.2 [...] % 11.6-14.8 platelet count 143 10^3/MM^3 10*3/mm3 811-954 2688/12/30 leukocyte count, blood 5.2 10^3/MM^3 10*3/mm3 4.6-10.2 [...] Panel - Chemistry sodium, serum 142 mmol/L 562-272 3320/02/04 carbon dioxide, venous blood 24.9 mmol/L 21.0-32.0 potassium, serum 4.1 mmol/L 3.5-5.2 chloride, serum 106 mmol/L 98-107 blood glucose 103 mg/dL 65-110 urea nitrogen, blood 25 mg/dL 7-18 creatinine, serum 0.83 mg/dL 0.55-1.30 alanine aminotransferase (SGPT), serum 38 U/L 12-78 aspartate aminotransferase (SGOT), serum 26 U/L 15-37 calcium, serum 8.7 mg/dL 8.5-10.1 bilirubin, serum, total 0.30 mg/dL 0.00-1.00 sodium, serum 140 mmol/L 407-660 1835/01/06 carbon dioxide, venous blood 27.2 mmol/L 21.0-32.0 potassium, serum 4.1 mmol/L 3.5-5.2 chloride, serum 105 mmol/L 98-107 blood glucose 70 mg/dL 65-110 urea nitrogen, blood 25 mg/dL 7-18 creatinine, serum 0.90 mg/dL 0.55-1.30 alanine aminotransferase (SGPT), serum 28 U/L 12-78 aspartate aminotransferase (SGOT), serum 20 U/L 15-37 calcium, serum 8.9 mg/dL 8.5-10.1 bilirubin, serum, total 0.40 mg/dL 0.00-1.00 sodium, serum 140 mmol/L 290-922 7743/01/13 carbon dioxide, venous blood 26.4 mmol/L 21.0-32.0 [...] % 11.6-14.8 platelet count 271 10^3/MM^3 10*3/mm3 756-626 5096/01/13 leukocyte count, blood 5.2 10^3/MM^3 10*3/mm3 4.6-10.2 [...] % 11.6-14.8 platelet count 289 10^3/MM^3 10*3/mm3 754-579 7966/01/06 leukocyte count, blood 4.1 10^3/MM^3 10*3/mm3 4.6-10.2 [...] Panel - Chemistry sodium, serum 139 mmol/L 159-964 7233/12/30 carbon dioxide, venous blood 28.2 mmol/L 21.0-32.0 potassium, serum 3.9 mmol/L 3.5-5.2 chloride, serum 105 mmol/L 98-107 blood glucose 91 mg/dL 65-110 urea nitrogen, blood 17 mg/dL 7-18 creatinine, serum 0.81 mg/dL 0.55-1.30 alanine aminotransferase (SGPT), serum 29 U/L 12-78 aspartate aminotransferase (SGOT), serum 22 U/L 15-37 calcium, serum 8.8 mg/dL 8.5-10.1 bilirubin, serum, total 0.50 mg/dL 0.00-1.00 sodium, serum 141 mmol/L 406-689 3477/11/18 carbon dioxide, venous blood 26.2 mmol/L 21.0-32.0 potassium, serum 4.4 mmol/L 3.5-5.2 chloride, serum 106 mmol/L 98-107 blood glucose 102 mg/dL 65-110 urea nitrogen, blood 24 mg/dL 7-18 creatinine, serum 0.77 mg/dL 0.55-1.30 alanine aminotransferase (SGPT), serum 30 U/L aspartate aminotransferase (SGOT), serum 15 U/L 15-37 calcium, serum 8.3 mg/dL 8.5-10.1 bilirubin, serum, total 0.30 mg/dL 0.00-1.00 urea nitrogen, blood 21 mg/dL 7- creatinine, serum 0.79 mg/dL 0.55-1.30 alanine aminotransferase (SGPT), serum 40 U/L aspartate aminotransferase (SGOT), serum 22 U/L 15-37 calcium, serum 8.5 mg/dL 8.5-10.1 bilirubin, serum, total 0.80 mg/dL 0.00-1.00 sodium, serum 143 mmol/L 015-571 4336/12/23 carbon dioxide, venous blood 24.6 mmol/L 21.0-32.0 potassium, serum 4.1 mmol/L 3.5-5.2 chloride, serum 107 mmol/L 98-107 blood glucose 98 mg/dL 65-110 urea nitrogen, blood 22 mg/dL 7-18 creatinine, serum 0.77 mg/dL 0.55-1.30 alanine aminotransferase (SGPT), serum 28 U/L aspartate aminotransferase (SGOT), serum 20 U/L 15-37 calcium, serum 8.6 mg/dL 8.5-10.1 bilirubin, serum, total 0.30 mg/dL 0.00-1.00 sodium, serum 142 mmol/L 094-960 8157/12/09 carbon dioxide, venous blood 28.5 mmol/L 21.0-32.0 potassium, serum 5.0 mmol/L 3.5-5.2 chloride, serum 109 mmol/L 98-107 blood glucose 91 mg/dL 65-110 urea nitrogen, blood 27 mg/dL 7-18 creatinine, serum 0.88 mg/dL 0.55-1.30 alanine aminotransferase (SGPT), serum 31 U/L aspartate aminotransferase (SGOT), serum 18 U/L - calcium, serum 8.9 mg/dL 8.5-10.1 bilirubin, serum, total 0.40 mg/dL 0.00-1.00 sodium, serum 140 mmol/L 247-160 6354/12/16 carbon dioxide, venous blood 25.4 mmol/L 21.0-32.0 potassium, serum 4.1 mmol/L 3.5-5.2 chloride, serum 104 mmol/L 98-107 blood glucose 110 mg/dL 65-110 urea nitrogen, blood 24 mg/dL 7-18 creatinine, serum 0.87 mg/dL 0.55-1.30 alanine aminotransferase (SGPT), serum 35 U/L aspartate aminotransferase (SGOT), serum 21 U/L - calcium, serum 8.4 mg/dL 8.5-10.1 bilirubin, serum, total 0.50 mg/dL 0.00-1.00 sodium, serum 141 mmol/L 207-266 0871/12/02 carbon dioxide, venous blood 25.9 mmol/L 21.0-32.0 potassium, serum 4.7 mmol/L 3.5-5.2 blood glucose 94 mg/dL 65-110 chloride, serum 105 mmol/L 98-107 potassium, serum 4.7 mmol/L 3.5-5.2 carbon dioxide, venous blood 27.9 mmol/L 21.0-32.0 sodium, serum 139 mmol/L 066-832 1886/12/02 chloride, serum 106 mmol/L 98-107 blood glucose 78 mg/dL 65-110 urea nitrogen, blood 24 mg/dL 7-18 creatinine, serum 0.75 mg/dL 0.55-1.30 alanine aminotransferase (SGPT), serum 31 U/L 12-78 aspartate aminotransferase (SGOT), serum 20 U/L 15-37 calcium, serum 8.7 mg/dL 8.5-10.1 bilirubin, serum, total 0.30 mg/dL 0.00-1.00 Lab Report: Lipid Panel, Thyroid Stimulating Hormone (L) - Chemistry cholesterol, serum 177 mg/dL 446-173 9732/10/31 triglyceride, serum, fasting 64 mg/dL 30-200 HDL cholesterol, serum 77 mg/dL 32-96 LDL cholesterol, serum 87 mg/dL 0-130 TSH 2.13 m[iU]/mL 0.36-3.74 Lab Report: VITAMIN D, 25-HYDROXY/36600 - Chemistry vitamin D 25-hydroxy, serum 25 ng/mL 30-100 Encounters Code Encounter Date Provider Facility CPT-59643 Level 4 Est. Patient 17:31:07 CDT [facility] Level 3 Est. Patient 05:11:40 CD[facility] Level 2 Est. Patient 14:30:43 [employer] DIRECT[employer] Marta Viramontes P[employer]ING SALES CONSULTANT [facility] CPT-37598 Level 4 Est. Patient 09:14:36 [employer] DIRECTOR Rikki GRANADOS [facility] CPT-06995 Level 2 Est. Patient 09:07:32 CDT Marta Viramontes APRN [facility] CPT-03827 Level 4 Est. Patient 11:55:00 CDT Rikki GRANADOS [facility] CPT-68766 Level 3 Est. Patient 13:25:16 CDT Jennifer Chun MD PhD [facility] CPT-18471 Level 3 Est. Patient 17:31:22 CDT Solomon Alamo MD [facility] CPT-04774 Level 3 Est. Patient 08:02:14 CDT Solomon Alamo MD [facility] CPT-21103 Level 3 Est. Patient 17:23:53 CDT Rikki GRANADOS [facility] CPT-33493 Level 3 Est. Patient 11:22:41 CDT Darryn Hearn [facility] Procedures Code Procedure Name Date Entry Date Standard Description CPT-74732 BMP - LAB USE ONLY 10:32:33 [employer] DIRECTOR CPT-97068 Venipuncture Draw Fee 10:32:33 [employer] DIRECT[employer] CPT-19216 Magnesium - LAB USE ONLY 09:54:30 CDT CPT-51977 TSH - LAB USE ONLY 09:54:30 CDT CPT-90462 Lipid - LAB USE ONLY 09:54:30 CDT CPT-29690 Venipuncture Draw Fee 09:54:29 CDT CPT-79096 Venipuncture Draw Fee 18:27:04 CDT CPT-61617 Chest 2V Frontal and Lat 10:57:00 [employer] DIRECTOR CPT-34151 Venipuncture Draw Fee 10:56:59 [employer] DIRECTOR CPT-38439 Venipuncture Draw Fee 09:22:28 [employer] DIRECTOR CPT-44064 Chest 2V Frontal and Lat 09:22:27 [employer] DIRECTOR CPT-I/D I/D Abscess 09:43:13 CDT CPT-02819 Venipuncture Draw Fee 08:16:46 [employer] DIRECTOR CPT-16893 Venipuncture Draw Fee 08:18:55 [employer] DIRECTOR CPT-29591 Venipuncture Draw Fee 08:31:18 [employer] DIRECTOR CPT-94939 Venipuncture Draw Fee 11:42:52 [employer] DIRECTOR CPT-08287 Venipuncture Draw Fee 13:26:37 [employer] DIRECTOR CPT-61413 Venipuncture Draw Fee 09:23:38 [employer] DIRECTOR CPT-000 Give Appropriate Tetanus Booster 10:23:50 CDT CPT-55446 Bone Density 08:28:45 CDT CPT-79909 Bone Density 11:35:15 CDT CPT-PV Prev. Care Visit 12:19:00 CDT CPT-32398 Venipuncture Draw Fee 15:02:58 CDT
--- OUTSIDE RECORDS SUMMARY | 2018-01-19 07:16 | XMS REPORT | Clinical Summary ---
Author Author Admin, E Organization [facility] Address Unknown Phone Unavailable Allergies, Adverse Reactions, Alerts Allergy Name Reaction Description Start Date Severity Status Provider SULFA facial swelling Critical Active Jocelyne Naff [employer] Conditions or Problems Problem Name Problem Code Onset Date Status Entry Date Provider Comment Standard Description Annotate G E R D 530.81 Active Jocelyne Naff [employer] Esophageal reflux FH COLON CANCER V16.0 Active Jocelyne Naff [employer] Family history of malignant neoplasm of gastrointestinal tract ESOPHAGEAL STRICTURE 530.3 Active Darryn Hearn PA Stricture and stenosis of esophagus CAROTID ARTERY STENOSIS, RIGHT 433.10 Active Rikki Stearns PA Occlusion and stenosis of carotid artery, without mention of cerebral infarction HEALTH SCREENING V70.0 Active Rose Darnell [employer] Routine general medical examination at a health [...] unspecified sites Rash 782.1 Active Marta Viramontes [employer]END[employer] Rash and other nonspecific skin eruption Adenocarcinoma, [...] Generic Name NDC Status Provider Patient Instruction BENZONATATE 200 MG ORAL CAPS One capsule tid. BENZONATATE 02473834821 Active Rikki GRANADOS Active CHERATUSSIN AC 100-10 MG/5ML SYRP 1 tsp by mouth every 4 hours as needed for cough GUAIFENESIN-CODEINE 88621018288 No Longer Active Rikki GRANADOS Active LEVAQUIN 500 MG TAB 1 tablet by mouth daily LEVOFLOXACIN 33891786690 Active Rikki Harms PA Active MUPIROCIN 2 % EXT OINT Use in each nostril in am and pm MUPIROCIN 08217591471 No Longer Active Rikki Harms PA Active DOXYCYCLINE HYCLATE 100 MG ORAL CAPS Take one bid DOXYCYCLINE HYCLATE 36659539964 No Longer Active Rikki Harms PA Active CLARITIN 10 MG TABS 1prn LORATADINE 54176746982 No Longer Active Jocelyne Naff [facility] [employer] [employer] Active ASPIRIN 81 MG TABS 1qd ASPIRIN 86066769526 No Longer Active Jocelyne Naff [employer] [employer] [employer] Active DOXYCYCLINE HYCLATE 100 MG CAP 1 cap by mouth twice daily DOXYCYCLINE HYCLATE 19096054230 No Longer Active Rikki Harms PA Active VITAMIN D3 50742 UNIT CAPS 1 pill by mouth weekly, for vitamin D deficiency CHOLECALCIFEROL 84862803924 No Longer Active Jennifer Chun MD PhD Active ANASTROZOLE 1 MG ORAL TABS Take one by mouth daily ANASTROZOLE 04271435603 Active Jennifer Chun MD PhD Active ZITHROMAX 250 MG TAB 2 po today, then 1 po q days 2-5 AZITHROMYCIN 14066449591 No Longer Active Rikki Harms PA Active MECLIZINE HCL 25 MG TABS 1 prn MECLIZINE HCL 87377677573 No Longer Active Solomon Alamo MD Active CHERATUSSIN AC SYRP prn as directed GUAIFENESIN- CODEINE SYRP 63326692012 No Longer Active Rikki Harms PA Active MULTIVITAMINS TABS 1qd MULTIPLE VITAMIN 62972912667 No Longer Active Rikki Harms PA Active OMEPRAZOLE 20 MG CPDR 1 PO Q D OMEPRAZOLE 74902243682 Active Rikki Harms PA Active ZITHROMAX Z-CAROLYN 250 MG TABS 2x1day,2b7xhee AZITHROMYCIN 52526966201 No Longer Active Jocelyne Naff [employer] [employer] [employer] Active MULTIVITAMINS TABS 1qd MULTIVITAMINS TABS MULTIPLE VITAMIN Inactive CHERATUSSIN AC SYRP prn as directed CHERATUSSIN AC SYRP GUAIFENESIN-CODEINE SYRP Inactive MECLIZINE HCL 25 MG TABS 1 prn MECLIZINE HCL 25 MG TABS 536884 MECLIZINE HCL Inactive ASPIRIN 81 MG TABS 1qd ASPIRIN 81 MG TABS 297069 ASPIRIN Inactive CLARITIN 10 MG TABS 1prn CLARITIN 10 MG TABS 165215 LORATADINE Inactive DOXYCYCLINE HYCLATE 100 MG ORAL CAPS Take one bid DOXYCYCLINE HYCLATE 100 MG ORAL CAPS 8301281 DOXYCYCLINE HYCLATE Inactive MUPIROCIN 2 % EXT OINT Use in each nostril in am and pm MUPIROCIN 2 % EXT OINT 077767 MUPIROCIN Inactive CHERATUSSIN AC 100-10 MG/5ML SYRP 1 tsp by mouth every 4 hours as needed for cough CHERATUSSIN AC 100-10 MG/5ML SYRP 194185 GUAIFENESIN-CODEINE Inactive ZITHROMAX Z-CAROLYN 250 MG TABS 2x1day,7a7ncbo ZITHROMAX Z-CAROLYN 250 MG TABS 2906611 AZITHROMYCIN Inactive ZITHROMAX 250 MG TAB 2 po today, then 1 po q days 2-5 ZITHROMAX 250 MG TAB 7996574 AZITHROMYCIN Inactive VITAMIN D3 70986 UNIT CAPS 1 pill by mouth weekly, for vitamin D deficiency VITAMIN D3 88769 UNIT CAPS CHOLECALCIFEROL Inactive DOXYCYCLINE HYCLATE 100 MG CAP 1 cap by mouth twice daily DOXYCYCLINE HYCLATE 100 MG CAP 9939302 DOXYCYCLINE HYCLATE Inactive Vital Signs Date Name [...] % 11.6-14.8 platelet count 360 10^3/MM^3 10*3/mm3 281-899 7338/12/31 leukocyte count, blood 5.3 10^3/MM^3 10*3/mm3 4.6-10.2 [...] % 11.6-14.8 platelet count 222 10^3/MM^3 10*3/mm3 975-195 1653/01/07 leukocyte count, blood 11.7 10^3/MM^3 10*3/mm3 4.6-10.2 [...] % 11.6-14.8 platelet count 191 10^3/MM^3 10*3/mm3 266-397 9701/01/20 leukocyte count, blood 9.8 10^3/MM^3 10*3/mm3 4.6-10.2 [...] % 11.6-14.8 platelet count 195 10^3/MM^3 10*3/mm3 417-190 8460/01/28 leukocyte count, blood 11.9 10^3/MM^3 10*3/mm3 4.6-10.2 [...] % 11.6-14.8 platelet count 278 10^3/MM^3 10*3/mm3 467-920 7396/02/04 leukocyte count, blood 8.5 10^3/MM^3 10*3/mm3 4.6-10.2 [...] % 11.6-14.8 platelet count 326 10^3/MM^3 10*3/mm3 334-601 0371/02/10 leukocyte count, blood 2.3 10^3/MM^3 10*3/mm3 4.6-10.2 [...] % 11.6-14.8 platelet count 240 10^3/MM^3 10*3/mm3 602-875 2881/02/17 leukocyte count, blood 3.4 10^3/MM^3 10*3/mm3 4.6-10.2 [...] % 11.6-14.8 platelet count 308 10^3/MM^3 10*3/mm3 510-202 7393/02/25 leukocyte count, blood 6.6 10^3/MM^3 10*3/mm3 4.6-10.2 [...] % 11.6-14.8 platelet count 433 10^3/MM^3 10*3/mm3 425-928 0094/11/18 leukocyte count, blood 8.5 10^3/MM^3 10*3/mm3 4.6-10.2 [...] % 11.6-14.8 platelet count 143 10^3/MM^3 10*3/mm3 876-076 2114/11/25 leukocyte count, blood 2.1 10^3/MM^3 10*3/mm3 4.6-10.2 [...] % 11.6-14.8 platelet count 139 10^3/MM^3 10*3/mm3 715-482 0877/12/02 leukocyte count, blood 6.7 10^3/MM^3 10*3/mm3 4.6-10.2 [...] % 11.6-14.8 platelet count 258 10^3/MM^3 10*3/mm3 694-861 1088/12/09 leukocyte count, blood 5.3 10^3/MM^3 10*3/mm3 4.6-10.2 [...] % 11.6-14.8 platelet count 240 10^3/MM^3 10*3/mm3 876-469 9340/11/11 leukocyte count, blood 2.0 10^3/MM^3 10*3/mm3 4.6-10.2 [...] % 11.6-14.8 platelet count 203 10^3/MM^3 10*3/mm3 447-627 4775/12/16 leukocyte count, blood 3.2 10^3/MM^3 10*3/mm3 4.6-10.2 [...] % 11.6-14.8 platelet count 158 10^3/MM^3 10*3/mm3 688-584 2142/12/18 leukocyte count, blood 8.8 10^3/MM^3 10*3/mm3 4.6-10.2 [...] % 11.6-14.8 platelet count 207 10^3/MM^3 10*3/mm3 142-424 Lab Report: CBC W/DIFF, Comp. Metabolic Panel - Chemistry sodium, serum 141 mmol/L 681-523 4657/01/14 potassium, serum 4.9 mmol/L 3.5-5.2 chloride, serum 107 mmol/L 98-107 carbon dioxide, venous blood 28.9 mmol/L 21.0-32.0 blood glucose 100 mg/dL 65-110 urea nitrogen, blood 19 mg/dL 7-18 creatinine, serum 0.90 mg/dL 0.60-1.30 alanine aminotransferase (SGPT), serum 28 U/L 12-78 aspartate aminotransferase (SGOT), serum 24 U/L 15-37 calcium, serum 8.2 mg/dL 8.5-10.1 bilirubin, serum, total 0.40 mg/dL 0.00-1.00 sodium, serum 138 mmol/L 815-061 8811/11/04 carbon dioxide, venous blood 27.7 mmol/L 21.0-32.0 [...] % 11.6-14.8 platelet count 216 10^3/MM^3 10*3/mm3 451-203 4779/01/14 leukocyte count, blood 6.7 10^3/MM^3 10*3/mm3 4.6-10.2 [...] Panel - Chemistry sodium, serum 140 mmol/L 392-167 8455/07/13 potassium, serum 4.5 mmol/L 3.5-5.2 chloride, serum 106 mmol/L 98-107 carbon dioxide, venous blood 27.7 mmol/L 21.0-32.0 blood glucose 105 mg/dL 65-110 urea nitrogen, blood 14 mg/dL 7-18 creatinine, serum 0.90 mg/dL 0.60-1.30 alanine aminotransferase (SGPT), serum 29 U/L 12-78 aspartate aminotransferase (SGOT), serum 22 U/L 15-37 calcium, serum 9.4 mg/dL 8.5-10.1 bilirubin, serum, total 0.70 mg/dL 0.00-1.00 cholesterol, serum 160 mg/dL 885-529 1396/07/13 triglyceride, serum, fasting 63 mg/dL 30-200 HDL [...] Panel - Chemistry sodium, serum 141 mmol/L 975-765 4883/02/10 potassium, serum 5.2 mmol/L 3.5-5.2 chloride, serum 106 mmol/L 98-107 carbon dioxide, venous blood 27.8 mmol/L 21.0-32.0 blood glucose 111 mg/dL 65-110 urea nitrogen, blood 18 mg/dL 7-18 creatinine, serum 0.90 mg/dL 0.60-1.30 alanine aminotransferase (SGPT), serum 29 U/L -78 aspartate aminotransferase (SGOT), serum 21 U/L 15-37 calcium, serum 8.3 mg/dL 8.5-10.1 bilirubin, serum, total 0.40 mg/dL 0.00-1.00 sodium, serum 141 mmol/L 038-790 1137/11/11 carbon dioxide, venous blood 26.8 mmol/L 21.0-32.0 potassium, serum 4.2 mmol/L 3.5-5.2 chloride, serum 106 mmol/L 98-107 blood glucose 95 mg/dL 65-110 urea nitrogen, blood 18 mg/dL 7-18 creatinine, serum 0.70 mg/dL 0.55-1.30 alanine aminotransferase (SGPT), serum 33 U/L 78 aspartate aminotransferase (SGOT), serum 22 U/L 15-37 calcium, serum 8.5 mg/dL 8.5-10.1 bilirubin, serum, total 0.30 mg/dL 0.00-1.00 sodium, serum 142 mmol/L 438-211 0406/12/09 carbon dioxide, venous blood 28.5 mmol/L 21.0-32.0 potassium, serum 5.0 mmol/L 3.5-5.2 chloride, serum 109 mmol/L 98-107 blood glucose 91 mg/dL 65-110 urea nitrogen, blood 27 mg/dL 7-18 creatinine, serum 0.88 mg/dL 0.55-1.30 alanine aminotransferase (SGPT), serum 31 U/L 78 aspartate aminotransferase (SGOT), serum 18 U/L 15-37 calcium, serum 8.9 mg/dL 8.5-10.1 bilirubin, serum, total 0.40 mg/dL 0.00-1.00 sodium, serum 140 mmol/L 935-561 5673/12/16 carbon dioxide, venous blood 25.4 mmol/L 21.0-32.0 potassium, serum 4.1 mmol/L 3.5-5.2 chloride, serum 104 mmol/L 98-107 blood glucose 110 mg/dL 65-110 urea nitrogen, blood 24 mg/dL 7-18 creatinine, serum 0.87 mg/dL 0.55-1.30 alanine aminotransferase (SGPT), serum 35 U/L aspartate aminotransferase (SGOT), serum 21 U/L 15-37 calcium, serum 8.4 mg/dL 8.5-10.1 bilirubin, serum, total 0.50 mg/dL 0.00-1.00 sodium, serum 141 mmol/L 836-720 0509/12/02 carbon dioxide, venous blood 25.9 mmol/L 21.0-32.0 potassium, serum 4.7 mmol/L 3.5-5.2 chloride, serum 106 mmol/L 98-107 blood glucose 78 mg/dL 65-110 urea nitrogen, blood 24 mg/dL 7-18 creatinine, serum 0.75 mg/dL 0.55-1.30 alanine aminotransferase (SGPT), serum 31 U/L 12- aspartate aminotransferase (SGOT), serum 20 U/L 15-37 calcium, serum 8.7 mg/dL 8.5-10.1 bilirubin, serum, total 0.30 mg/dL 0.00-1.00 sodium, serum 141 mmol/L 167-732 2648/11/18 carbon dioxide, venous blood 26.2 mmol/L 21.0-32.0 potassium, serum 4.4 mmol/L 3.5-5.2 chloride, serum 106 mmol/L 98-107 blood glucose 102 mg/dL 65-110 urea nitrogen, blood 24 mg/dL 7- creatinine, serum 0.77 mg/dL 0.55-1.30 alanine aminotransferase (SGPT), serum 30 U/L aspartate aminotransferase (SGOT), serum 15 U/L - calcium, serum 8.3 mg/dL 8.5-10.1 bilirubin, serum, total 0.30 mg/dL 0.00-1.00 sodium, serum 139 mmol/L 332-842 2890/11/25 carbon dioxide, venous blood 27.9 mmol/L 21.0-32.0 potassium, serum 4.7 mmol/L 3.5-5.2 chloride, serum 105 mmol/L 98-107 blood glucose 94 mg/dL 65-110 urea nitrogen, blood 21 mg/dL 7-18 creatinine, serum 0.79 mg/dL 0.55-1.30 alanine aminotransferase (SGPT), serum 40 U/L aspartate aminotransferase (SGOT), serum 22 U/L 15-37 calcium, serum 8.5 mg/dL 8.5-10.1 bilirubin, serum, total 0.80 mg/dL 0.00-1.00 Lab Report: VITAMIN D, 25-HYDROXY/07842 - Chemistry vitamin D 25-hydroxy, serum 24 ng/mL 30-100 Encounters Code Encounter Date Provider Facility CPT-12929 Level 4 Est. Patient 09:14:36 [employer]EE [employer]IST Rikki GRANADOS [facility] CPT-18445 Level 2 Est. Patient 09:07:32 CDT Marta Viramontes CORONA [facility] CPT-67346 Level 4 Est. Patient 11:55:00 CDT Rikki GRANADOS [facility] CPT-93878 Level 3 Est. Patient 13:25:16 CDT Jennifer Chun MD PhD [facility] CPT-93245 Level 3 Est. Patient 17:31:22 CDT Solomon Alamo MD [facility] CPT-58962 Level 3 Est. Patient 08:02:14 CDT Solomon Alamo MD [facility] CPT-44421 Level 3 Est. Patient 17:23:53 CDT Rikki GRANADOS [facility] CPT-79876 Level 3 Est. 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 CPT-01355 Chest 2V Frontal and Lat 09:22:27 [employer]OYEE DEVELOPMENT SPECIALIST CPT-I/D I/D Abscess 09:43:13 CDT CPT-28881 Venipuncture Draw Fee 08:16:46 [employer]OYEE DEVELOPMENT SPECIALIST CPT-67725 Venipuncture Draw Fee 08:18:55 EMPLOYEE DEVELOPMENT SPECIALIST CPT-72845 Venipuncture Draw Fee 08:31:18 EMPLOYEE DEVELOPMENT SPECIALIST CPT-46181 Venipuncture Draw Fee 11:42:52 [employer]OYEE DEVELOPMENT SPECIALIST CPT-33040 Venipuncture Draw Fee 13:26:37 EMPLOYEE DEVELOPMENT SPECIALIST CPT-71296 Venipuncture Draw Fee 09:23:38 EMPLOYEE DEVELOPMENT SPECIALIST CPT-000 Give Appropriate Tetanus Booster 10:23:50 CDT CPT-56542 Bone Density 08:28:45 CDT CPT-83051 Bone Density 11:35:15 CDT CPT-PV Prev. Care Visit 12:19:00 CDT CPT-86762 Venipuncture Draw Fee 15:02:58 CDT
--- OUTSIDE RECORDS SUMMARY | 2018-01-19 07:17 | XMS REPORT | Clinical Summary ---
Author Author Admin, E Organization [facility] [employer] Address Unknown Phone Unavailable Allergies, Adverse Reactions, Alerts Allergy Name Reaction Description Start Date Severity Status Provider SULFA facial swelling Critical Active Jocelyne Naff REGULATORY AFFAIRS COORDINATOR Conditions or Problems Problem Name Problem Code Onset Date Status Entry Date Provider Comment Standard Description Annotate G E R D 530.81 Active Jocelyne Naff REGULATORY AFFAIRS COORDINATOR Esophageal reflux FH COLON CANCER V16.0 Active Jocelyne Naff REGULATORY AFFAIRS COORDINATOR Family history of malignant neoplasm of gastrointestinal [...] MCG ORAL TABS Take one daily BIOTIN 30794037267 Active Rikki Harms PA Active VITAMIN C 500 MG ORAL CAPS Take one daily ASCORBIC ACID 76930166663 Active Rikki Harms PA Active BENZONATATE 200 MG ORAL CAPS One capsule tid. BENZONATATE 21653346608 No Longer Active Rikki Harms PA Active FLONASE ALLERGY RELIEF 50 MCG/ACT NASAL SUSP spray twice in each nostril one time daily FLUTICASONE PROPIONATE 15650112716 No Longer Active Rikki Harms PA Active TUSSIONEX PENNKINETIC ER 10-8 MG/5ML LQCR 5ml po q12hr PRN Cough HYDROCOD POLST-CHLORPHEN POLST 50984688497 No Longer Active Rikki Harms PA Active NIACIN ER 500 MG ORAL CR-TABS Take one twice daily NIACIN 03127553693 Active Rikki Harms PA Active ALBUTEROL SULFATE 0.083 % JOSEE SOLBarbra one vial per nebulizer every 4-6 hours as needed ALBUTEROL SULFATE 36082782730 No Longer Active Rikki Harms PA Active CEPHALEXIN 500 MG ORAL CAPS Take one four times a day CEPHALEXIN 95487502735 Active Rikki Harms PA Active MEDROL (CAROLYN) 4 MG TABS 6 tabs on day 1, 5 tabs on day 2, 4 tabs on day 3, 3 tabs on day 4, 2 tabs on day 5, 1 tab on day 6 METHYLPREDNISOLONE 93627471941 No Longer Active Rikki Harms PA Active LEVAQUIN 750 MG TABS 1 po qd x 7 days LEVOFLOXACIN 32335545888 No Longer Active Rikki Harms PA Active LEVAQUIN 500 MG ORAL TABS Take one tablet daily LEVOFLOXACIN 97009846974 No Longer Active Rikki Harms PA Active PROAIR HFA 108 (90 BASE) MCG/ACT AERS 2 puffs four times a day as needed 2014 ALBUTEROL SULFATE 41593213806 Active Marta Yokum YARD HAND Active LEVAQUIN 500 MG TAB 1 tablet by mouth daily LEVOFLOXACIN 90097210771 No Longer Active Marta Yokum YARD HAND Active CHERATUSSIN AC 100-10 MG/5ML SYRP 1 tsp by mouth every 4 hours as needed for cough GUAIFENESIN-CODEINE 00727280779 No Longer Active Rikki Harms PA Active MUPIROCIN 2 % EXT OINT Use in each nostril in am and pm MUPIROCIN 99599895951 No Longer Active Rikki Harms PA Active DOXYCYCLINE HYCLATE 100 MG ORAL CAPS Take one bid DOXYCYCLINE HYCLATE 08247796773 No Longer Active Rikki Harms PA Active CLARITIN 10 MG TABS 1prn LORATADINE 68179386985 No Longer Active Jocelyne Naff REGULATORY AFFAIRS COORDINATOR Active ASPIRIN 81 MG TABS 1qd ASPIRIN 60540591141 No Longer Active Jocelyne Naff REGULATORY AFFAIRS COORDINATOR Active DOXYCYCLINE HYCLATE 100 MG CAP 1 cap by mouth twice daily DOXYCYCLINE HYCLATE 05914409500 No Longer Active Rikki Harms PA Active VITAMIN D3 34436 UNIT CAPS 1 pill by mouth weekly, for vitamin D deficiency CHOLECALCIFEROL 04008452871 No Longer Active Jennifer Chun MD PhD Active ANASTROZOLE 1 MG ORAL TABS Take one by mouth daily ANASTROZOLE 63269661669 Active Jennifer Chun MD PhD Active ZITHROMAX 250 MG TAB 2 po today, then 1 po q days 2-5 AZITHROMYCIN 08797847602 No Longer Active Rikki Harms PA Active MECLIZINE HCL 25 MG TABS 1 prn MECLIZINE HCL 85894028713 No Longer Active Solomon Alamo MD Active CHERATUSSIN AC SYRP prn as directed GUAIFENESIN- CODEINE SYRP 74424924390 No Longer Active Rikki Harms PA Active MULTIVITAMINS TABS 1qd MULTIPLE VITAMIN 85860039669 No Longer Active Rikki Harms PA Active OMEPRAZOLE 20 MG CPDR 1 PO Q D OMEPRAZOLE 85085310218 Active Rikki Harms PA Active ZITHROMAX Z-CAROLYN 250 MG TABS 2x1day,[id number] AZITHROMYCIN 92620270759 No Longer Active Jocelyne Lovell REGULATORY AFFAIRS COORDINATOR Active MULTIVITAMINS TABS 1qd MULTIVITAMINS TABS MULTIPLE VITAMIN Inactive CHERATUSSIN AC SYRP prn as directed CHERATUSSIN AC SYRP GUAIFENESIN-CODEINE SYRP Inactive MECLIZINE HCL 25 MG TABS 1 prn MECLIZINE HCL 25 MG TABS 486481 MECLIZINE HCL Inactive ASPIRIN 81 MG TABS 1qd ASPIRIN 81 MG TABS ASPIRIN Inactive CLARITIN 10 MG TABS 1prn CLARITIN 10 MG TABS 478899 LORATADINE Inactive DOXYCYCLINE HYCLATE 100 MG ORAL CAPS Take one bid DOXYCYCLINE HYCLATE 100 MG ORAL CAPS 7016053 DOXYCYCLINE HYCLATE Inactive MUPIROCIN 2 % EXT OINT Use in each nostril in am and pm MUPIROCIN 2 % EXT OINT 451153 MUPIROCIN Inactive CHERATUSSIN AC 100-10 MG/5ML SYRP 1 tsp by mouth every 4 hours as needed for cough CHERATUSSIN AC 100-10 MG/5ML SYRP 733354 GUAIFENESIN-CODEINE Inactive LEVAQUIN 500 MG TAB 1 tablet by mouth daily LEVAQUIN 500 MG TAB 799428 LEVOFLOXACIN Inactive LEVAQUIN 500 MG ORAL TABS Take one tablet daily LEVAQUIN 500 MG ORAL TABS 336298 LEVOFLOXACIN Inactive LEVAQUIN 750 MG TABS 1 po qd x 7 days LEVAQUIN 750 MG TABS 983461 LEVOFLOXACIN Inactive ALBUTEROL SULFATE 0.083 % NEBU SOLN one vial per nebulizer every 4-6 hours as needed ALBUTEROL SULFATE 0.083 % NEBU SOLN 019230 ALBUTEROL SULFATE Inactive TUSSIONEX PENNKINETIC ER 10-8 MG/5ML LQCR 5ml po q12hr PRN Cough TUSSIONEX PENNKINETIC ER 10-8 MG/5ML LQCR HYDROCOD POLST- CHLORPHEN POLST Inactive FLONASE ALLERGY RELIEF 50 MCG/ACT NASAL SUSP spray twice in each nostril one time daily FLONASE ALLERGY RELIEF 50 MCG/ACT NASAL SUSP 922143 FLUTICASONE PROPIONATE Inactive BENZONATATE 200 MG ORAL CAPS One capsule tid. BENZONATATE 200 MG ORAL CAPS 983243 BENZONATATE Inactive ZITHROMAX Z-CAROLYN 250 MG TABS 2x1day,[id number] ZITHROMAX Z-CAROLYN 250 MG TABS 5366375 AZITHROMYCIN Inactive ZITHROMAX 250 MG TAB 2 po today, then 1 po q days 2-5 ZITHROMAX 250 MG TAB 9788902 AZITHROMYCIN Inactive VITAMIN D3 66953 UNIT CAPS 1 pill by mouth weekly, for vitamin D deficiency VITAMIN D3 54634 UNIT CAPS CHOLECALCIFEROL Inactive DOXYCYCLINE HYCLATE 100 MG CAP 1 cap by mouth twice daily DOXYCYCLINE HYCLATE 100 MG CAP 7050001 DOXYCYCLINE HYCLATE Inactive MEDROL (CAROLYN) 4 MG TABS 6 tabs on day 1, 5 tabs on day 2, 4 tabs on day 3, 3 tabs on day 4, 2 tabs on day 5, 1 tab on day 6 MEDROL ( CAROLYN) 4 MG TABS 983673 METHYLPREDNISOLONE Inactive Vital Signs Date Name Value [...] E&M - 3141-9 198 [lb_av] Weight Measured Diagnostic Results Date Name Value Unit Range Description Lab Report: Basic Metabolic Panel - Chemistry sodium, serum 142 mmol/L 356-766 3483/07/25 potassium, serum 4.0 mmol/L 3.5-5.2 chloride, serum [...] % 11.6-14.8 platelet count 269 10^3/MM^3 10*3/mm3 689-624 3883/12/16 leukocyte count, blood 3.2 10^3/MM^3 10*3/mm3 4.6-10.2 [...] % 11.6-14.8 platelet count 158 10^3/MM^3 10*3/mm3 921-464 1507/12/18 leukocyte count, blood 8.8 10^3/MM^3 10*3/mm3 4.6-10.2 [...] % 11.6-14.8 platelet count 207 10^3/MM^3 10*3/mm3 712-356 4984/12/23 leukocyte count, blood 6.2 10^3/MM^3 10*3/mm3 4.6-10.2 [...] % 11.6-14.8 platelet count 183 10^3/MM^3 10*3/mm3 744-622 6372/12/30 leukocyte count, blood 5.2 10^3/MM^3 10*3/mm3 4.6-10.2 [...] % 11.6-14.8 platelet count 200 10^3/MM^3 10*3/mm3 230-670 4644/11/11 leukocyte count, blood 2.0 10^3/MM^3 10*3/mm3 4.6-10.2 [...] % 11.6-14.8 platelet count 203 10^3/MM^3 10*3/mm3 404-115 8724/11/18 leukocyte count, blood 8.5 10^3/MM^3 10*3/mm3 4.6-10.2 [...] % 11.6-14.8 platelet count 143 10^3/MM^3 10*3/mm3 668-902 9429/11/25 leukocyte count, blood 2.1 10^3/MM^3 10*3/mm3 4.6-10.2 [...] % 11.6-14.8 platelet count 139 10^3/MM^3 10*3/mm3 567-397 4205/12/02 leukocyte count, blood 6.7 10^3/MM^3 10*3/mm3 4.6-10.2 [...] % 11.6-14.8 platelet count 258 10^3/MM^3 10*3/mm3 925-286 4655/12/09 leukocyte count, blood 5.3 10^3/MM^3 10*3/mm3 4.6-10.2 [...] Panel - Chemistry sodium, serum 138 mmol/L 547-464 8122/11/04 carbon dioxide, venous blood 27.7 mmol/L 21.0-32.0 potassium, serum 4.9 mmol/L 3.5-5.2 chloride, serum 104 mmol/L 98-107 blood glucose 92 mg/dL 65-110 urea nitrogen, blood 24 mg/dL 7-18 creatinine, serum 0.95 mg/dL 0.55-1.30 alanine aminotransferase (SGPT), serum 34 U/L 12-78 aspartate aminotransferase (SGOT), serum 23 U/L 15-37 calcium, serum 8.9 mg/dL 8.5-10.1 bilirubin, serum, total 0.70 mg/dL 0.00-1.00 sodium, serum 140 mmol/L 558-154 4239/01/06 carbon dioxide, venous blood 27.2 mmol/L 21.0-32.0 potassium, serum 4.1 mmol/L 3.5-5.2 chloride, serum 105 mmol/L 98-107 blood glucose 70 mg/dL 65-110 urea nitrogen, blood 25 mg/dL 7-18 creatinine, serum 0.90 mg/dL 0.55-1.30 alanine aminotransferase (SGPT), serum 28 U/L - aspartate aminotransferase (SGOT), serum 20 U/L - calcium, serum 8.9 mg/dL 8.5-10.1 bilirubin, serum, total 0.40 mg/dL 0.00-1.00 sodium, serum 140 mmol/L 595-845 5672/01/13 carbon dioxide, venous blood 26.4 mmol/L 21.0-32.0 potassium, serum 4.2 mmol/L 3.5-5.2 chloride, serum 104 mmol/L 98-107 blood glucose 101 mg/dL 65-110 urea nitrogen, blood 18 mg/dL 7-18 creatinine, serum 0.80 mg/dL 0.55-1.30 alanine aminotransferase (SGPT), serum 28 U/L aspartate aminotransferase (SGOT), serum 24 U/L calcium, serum 8.7 mg/dL 8.5-10.1 bilirubin, serum, total 0.50 mg/dL 0.00-1.00 sodium, serum 142 mmol/L 481-631 2982/02/04 carbon dioxide, venous blood 24.9 mmol/L 21.0-32.0 potassium, serum 4.1 mmol/L 3.5-5.2 chloride, serum 106 mmol/L 98-107 blood glucose 103 mg/dL 65-110 urea nitrogen, blood 25 mg/dL 7-18 creatinine, serum 0.83 mg/dL 0.55-1.30 alanine aminotransferase (SGPT), serum 38 U/L aspartate aminotransferase (SGOT), serum 26 U/L - calcium, serum 8.7 mg/dL 8.5-10.1 [...] % 11.6-14.8 platelet count 297 10^3/MM^3 10*3/mm3 835-218 5921/02/04 leukocyte count, blood 4.2 10^3/MM^3 10*3/mm3 4.6-10.2 [...] % 11.6-14.8 platelet count 271 10^3/MM^3 10*3/mm3 753-832 3169/01/13 leukocyte count, blood 5.2 10^3/MM^3 10*3/mm3 4.6-10.2 [...] % 11.6-14.8 platelet count 289 10^3/MM^3 10*3/mm3 371-135 3236/11/04 leukocyte count, blood 3.8 10^3/MM^3 10*3/mm3 4.6-10.2 [...] Panel - Chemistry sodium, serum 141 mmol/L 164-220 6762/11/11 carbon dioxide, venous blood 26.8 mmol/L 21.0-32.0 potassium, serum 4.2 mmol/L 3.5-5.2 chloride, serum 106 mmol/L 98-107 blood glucose 95 mg/dL 65-110 urea nitrogen, blood 18 mg/dL 7-18 creatinine, serum 0.70 mg/dL 0.55-1.30 alanine aminotransferase (SGPT), serum 33 U/L 12-78 aspartate aminotransferase (SGOT), serum 22 U/L 15-37 calcium, serum 8.5 mg/dL 8.5-10.1 bilirubin, serum, total 0.30 mg/dL 0.00-1.00 sodium, serum 141 mmol/L 066-598 6648/11/18 carbon dioxide, venous blood 26.2 mmol/L 21.0-32.0 potassium, serum 4.4 mmol/L 3.5-5.2 chloride, serum 106 mmol/L 98-107 blood glucose 102 mg/dL 65-110 urea nitrogen, blood 24 mg/dL 7-18 creatinine, serum 0.77 mg/dL 0.55-1.30 alanine aminotransferase (SGPT), serum 30 U/L 12-78 aspartate aminotransferase (SGOT), serum 15 U/L 15-37 calcium, serum 8.3 mg/dL 8.5-10.1 bilirubin, serum, total 0.30 mg/dL 0.00-1.00 sodium, serum 139 mmol/L 188-898 2916/11/25 carbon dioxide, venous blood 27.9 mmol/L 21.0-32.0 potassium, serum 4.7 mmol/L 3.5-5.2 chloride, serum 105 mmol/L 98-107 blood glucose 94 mg/dL 65-110 urea nitrogen, blood 21 mg/dL 7-18 creatinine, serum 0.79 mg/dL 0.55-1.30 alanine aminotransferase (SGPT), serum 40 U/L aspartate aminotransferase (SGOT), serum 22 U/L - calcium, serum 8.5 mg/dL 8.5-10.1 bilirubin, serum, total 0.80 mg/dL 0.00-1.00 sodium, serum 142 mmol/L 531-521 7667/12/09 carbon dioxide, venous blood 28.5 mmol/L 21.0-32.0 potassium, serum 5.0 mmol/L 3.5-5.2 chloride, serum 109 mmol/L 98-107 blood glucose 91 mg/dL 65-110 urea nitrogen, blood 27 mg/dL 7-18 creatinine, serum 0.88 mg/dL 0.55-1.30 alanine aminotransferase (SGPT), serum 31 U/L aspartate aminotransferase (SGOT), serum 18 U/L 15-37 calcium, serum 8.9 mg/dL 8.5-10.1 bilirubin, serum, total 0.40 mg/dL 0.00-1.00 sodium, serum 140 mmol/L 052-293 6473/12/16 carbon dioxide, venous blood 25.4 mmol/L 21.0-32.0 potassium, serum 4.1 mmol/L 3.5-5.2 chloride, serum 104 mmol/L 98-107 blood glucose 110 mg/dL 65-110 urea nitrogen, blood 24 mg/dL 7-18 creatinine, serum 0.87 mg/dL 0.55-1.30 alanine aminotransferase (SGPT), serum 35 U/L -78 aspartate aminotransferase (SGOT), serum 21 U/L 15-37 calcium, serum 8.4 mg/dL 8.5-10.1 bilirubin, serum, total 0.50 mg/dL 0.00-1.00 sodium, serum 141 mmol/L 073-033 7564/12/02 carbon dioxide, venous blood 25.9 mmol/L 21.0-32.0 potassium, serum 4.7 mmol/L 3.5-5.2 chloride, serum 106 mmol/L 98-107 blood glucose 78 mg/dL 65-110 urea nitrogen, blood 24 mg/dL 7-18 creatinine, serum 0.75 mg/dL 0.55-1.30 alanine aminotransferase (SGPT), serum 31 U/L 78 aspartate aminotransferase (SGOT), serum 20 U/L 15-37 calcium, serum 8.7 mg/dL 8.5-10.1 bilirubin, serum, total 0.30 mg/dL 0.00-1.00 sodium, serum 139 mmol/L 080-856 8245/12/30 carbon dioxide, venous blood 28.2 mmol/L 21.0-32.0 potassium, serum 3.9 mmol/L 3.5-5.2 chloride, serum 105 mmol/L 98-107 blood glucose 91 mg/dL 65-110 urea nitrogen, blood 17 mg/dL 7-18 creatinine, serum 0.81 mg/dL 0.55-1.30 alanine aminotransferase (SGPT), serum 29 U/L 78 aspartate aminotransferase (SGOT), serum 22 U/L 15-37 calcium, serum 8.8 mg/dL 8.5-10.1 bilirubin, serum, total 0.50 mg/dL 0.00-1.00 sodium, serum 143 mmol/L 876-692 7212/12/23 carbon dioxide, venous blood 24.6 mmol/L 21.0-32.0 potassium, serum 4.1 mmol/L 3.5-5.2 chloride, serum 107 mmol/L 98-107 blood glucose 98 mg/dL 65-110 urea nitrogen, blood 22 mg/dL 7- creatinine, serum 0.77 mg/dL 0.55-1.30 alanine aminotransferase (SGPT), serum 28 U/L aspartate aminotransferase (SGOT), serum 20 U/L 15-37 calcium, serum 8.6 mg/dL 8.5-10.1 bilirubin, serum, total 0.30 mg/dL 0.00-1.00 Encounters Code Encounter Date Provider Facility CPT-14852 Level 3 Est. Patient 05:11:40 CDT Rikki Stearns [facility] CPT-47756 Level 2 Est. Patient 14:30:43 ENERGY AND SUSTAINABILITY MANAGER Marta Viramontes [facility] CPT-51910 Level 4 Est. Patient 09:14:36 ENERGY AND SUSTAINABILITY MANAGER Rikki GRANADOS [facility] CPT-41350 Level 2 Est. Patient 09:07:32 CDT Marta Viramontes [facility] CPT-21822 Level 4 Est. Patient 11:55:00 CDT Rikki GRANADOS [facility] CPT-81057 Level 3 Est. Patient 13:25:16 CDT Jennifer Chun MD PhD [facility] CPT-39930 Level 3 Est. Patient 17:31:22 CDT Solomon Alamo MD [facility] CPT-06697 Level 3 Est. Patient 08:02:14 CDT Solomon Alamo MD [facility] CPT-04235 Level 3 Est. Patient 17:23:53 CDT Rikki GRANADOS [facility] CPT-34934 Level 3 Est. Patient 11:22:41 CDT Darryn Hearn [facility] [place] Procedures Code Procedure Name Date Entry Date Standard Description CPT-82667 Venipuncture Draw Fee 18:27:04 CDT CPT-10377 Chest 2V Frontal and Lat 10:57:00 ENERGY AND SUSTAINABILITY MANAGER CPT-71833 Venipuncture Draw Fee 10:56:59 ENERGY AND SUSTAINABILITY MANAGER CPT-22543 Venipuncture Draw Fee 09:22:28 ENERGY AND SUSTAINABILITY MANAGER CPT-04059 Chest 2V Frontal and Lat 09:22:27 ENERGY AND SUSTAINABILITY MANAGER CPT-I/D I/D Abscess 09:43:13 CDT CPT-83479 Venipuncture Draw Fee 08:16:46 ENERGY AND SUSTAINABILITY MANAGER CPT-55320 Venipuncture Draw Fee 08:18:55 ENERGY AND SUSTAINABILITY MANAGER CPT-96485 Venipuncture Draw Fee 08:31:18 ENERGY AND SUSTAINABILITY MANAGER CPT-57101 Venipuncture Draw Fee 11:42:52 ENERGY AND SUSTAINABILITY MANAGER CPT-53908 Venipuncture Draw Fee 13:26:37 ENERGY AND SUSTAINABILITY MANAGER CPT-81553 Venipuncture Draw Fee 09:23:38 ENERGY AND SUSTAINABILITY MANAGER CPT-000 Give Appropriate Tetanus Booster 10:23:50 CDT CPT-72410 Bone Density 08:28:45 CDT CPT-18129 Bone Density 11:35:15 CDT CPT-PV Prev. Care Visit 12:19:00 CDT CPT-90268 Venipuncture Draw Fee 15:02:58 CDT
--- OUTSIDE RECORDS SUMMARY | 2018-01-19 07:18 | XMS REPORT | Clinical Summary ---
Author Author Admin, E Organization [facility] Address Unknown Phone Unavailable Allergies, Adverse Reactions, Alerts Allergy Name Reaction Description Start Date Severity Status Provider SULFA facial swelling Critical Active Jocelyne Naff ACCESS SERVICES REPRESENTATIVE Conditions or Problems Problem Name Problem Code Onset Date Status Entry Date Provider Comment Standard Description Annotate G E R D 530.81 Active Jocelyne Naff ACCESS SERVICES REPRESENTATIVE Esophageal reflux FH COLON CANCER V16.0 Active Jocelyne Naff ACCESS SERVICES REPRESENTATIVE Family history of malignant neoplasm of gastrointestinal [...] (natural) Breast cancer 174.9 Resolved Marta Viramontes FARM DEMONSTRATOR Malignant neoplasm of breast (female), unspecified Vitamin [...] Ingrown toenail, left 703.0 Resolved Marta Yokum FARM DEMONSTRATOR Ingrowing nail cellulitis, finger, right 681.00 Resolved Marta Yokum FARM DEMONSTRATOR Cellulitis and abscess of finger, unspecified Cough 786.2 Resolved Marta Yokum FARM DEMONSTRATOR Cough Bronchitis, acute 466.0 Active Marta Yokum FARM DEMONSTRATOR Acute bronchitis Breast microcalcification ICD-793.81 Inactive Jennifer Chun MD PhD Abnormal Mammogram ICD-793.80 Inactive Jennifer Chun MD PhD Breast cancer ICD-174.9 Inactive Marta Yokum FARM DEMONSTRATOR Soft tissue infection ICD-528.9 Inactive Rikki Daryn PA Abscess, skin ICD-682.9 Inactive Rikki Harms PA Cellulitis, 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 Rikki Harms PA Rash ICD-782.1 Inactive Rikki Harms PA Upper respiratory infection, acute ICD-465.9 Inactive Rikki Harms PA Chemotherapy ICD-V58.11 Inactive Rikki Daryn PA Cough, chronic ICD-786.2 Inactive Rikki Daryn PA Ingrown toenail, left ICD-703.0 Inactive Marta Yokum FARM DEMONSTRATOR cellulitis, finger, right ICD-681.00 Inactive Marta Yokum FARM DEMONSTRATOR Cough ICD-786.2 Inactive Marta Yokum FARM DEMONSTRATOR Medication List Medication Instructions Start Date Stop Date Generic Name NDC Status Provider Patient Instruction PROAIR HFA 108 (90 BASE) MCG/ACT INHALATION AEROSOL SOLUTION 2 puffs four times a day as needed ALBUTEROL SULFATE 47191895613 No Longer Active Marta Yokum FARM DEMONSTRATOR Active DOXYCYCLINE HYCLATE 100 MG ORAL CAPSULE 1 cap by mouth twice daily DOXYCYCLINE HYCLATE 65033351876 No Longer Active Marta Yokum FARM DEMONSTRATOR Active PROAIR HFA 108 (90 BASE) MCG/ACT INHALATION AEROSOL SOLUTION 2 puffs four times a day as needed ALBUTEROL SULFATE 71760139570 Active Marta Yokum FARM DEMONSTRATOR Active AUGMENTIN 875-125 MG ORAL TABLET Take one tablet twice a day with food 04/25 AMOXICILLIN-POT CLAVULANATE 34100100851 No Longer Active Marta Yokum FARM DEMONSTRATOR Active TESSALON PERLES 100 MG ORAL CAPSULE 1 to 2 tablets by mouth 3 times daily as needed for cough BENZONATATE 35756558931 No Longer Active Marta Yokum FARM DEMONSTRATOR Active AUGMENTIN 875-125 MG ORAL TABLET 1 po BID x 10 days AMOXICILLIN-POT CLAVULANATE 10128395854 No Longer Active Marta Yokum FARM DEMONSTRATOR Active MEDROL 4 MG ORAL TABLET THERAPY PACK 6 tabs on day 1, 5 tabs on day 2, 4 tabs on day 3, 3 tabs on day 4, 2 tabs on day 5, 1 tab on day 6 METHYLPREDNISOLONE 21041180965 No Longer Active Marta Yokum FARM DEMONSTRATOR Active TUSSIONEX PENNKINETIC ER 10-8 MG/5ML ORAL SUSPENSION EXTENDED RELEASE 5ml po q12hr PRN Cough HYDROCOD POLST-CHLORPHEN POLST 95141359863 Active Marta Yokum FARM DEMONSTRATOR Active KEFLEX 500 MG ORAL CAPSULE 1 po qid CEPHALEXIN 87138192481 No Longer Active Marta Yokum FARM DEMONSTRATOR Active B COMPLEX 50 ORAL TABLET EXTENDED RELEASE B COMPLEX VITAMINS 15126385918 Active Marta Yokum FARM DEMONSTRATOR Active TUSSIONEX PENNKINETIC ER 10-8 MG/5ML ORAL SUSPENSION EXTENDED RELEASE 5ml po q12hr PRN Cough HYDROCOD POLST-CHLORPHEN POLST 83728915996 No Longer Active Marta Yokum FARM DEMONSTRATOR Active VITAMIN D3 93141 UNIT ORAL CAPSULE 1 qWeek x 4 months for vitamin D deficiency CHOLECALCIFEROL 55020328197 Active Marta Yokum FARM DEMONSTRATOR Active CEPHALEXIN 500 MG ORAL CAPSULE Take one four times a day CEPHALEXIN 99369235736 No Longer Active Marta Yokum FARM DEMONSTRATOR Active BIOTIN 1000 MCG ORAL TABLET Take one daily BIOTIN 02757045227 Active Rikki Harms PA Active VITAMIN C 500 MG ORAL CAPSULE Take one daily ASCORBIC ACID 65974219595 Active Rikki Harms PA Active BENZONATATE 200 MG ORAL CAPSULE One capsule tid. BENZONATATE 73742761725 No Longer Active Rikki Harms PA Active FLONASE ALLERGY RELIEF 50 MCG/ACT NASAL SUSPENSION spray twice in each nostril one time daily FLUTICASONE PROPIONATE 27896944573 No Longer Active Rikki Harms PA Active TUSSIONEX PENNKINETIC ER 10-8 MG/5ML ORAL SUSPENSION EXTENDED RELEASE 5ml po q12hr PRN Cough HYDROCOD POLST-CHLORPHEN POLST 64386901248 No Longer Active Rikki Harms PA Active NIACIN ER 500 MG ORAL TABLET EXTENDED RELEASE Take one twice daily NIACIN 31675098745 Active Rikki Harms PA Active ALBUTEROL SULFATE (2.5 MG/3ML) 0.083% INHALATION NEBULIZATION SOLUTION one vial per nebulizer every 4-6 hours as needed ALBUTEROL SULFATE 92390766268 No Longer Active Rikki Harms PA Active MEDROL 4 MG ORAL TABLET THERAPY PACK 6 tabs on day 1, 5 tabs on day 2, 4 tabs on day 3, 3 tabs on day 4, 2 tabs on day 5, 1 tab on day 6 METHYLPREDNISOLONE 88999215495 No Longer Active Rikki Harms PA Active LEVAQUIN 750 MG ORAL TABLET 1 po qd x 7 days LEVOFLOXACIN 44055460858 No Longer Active Rikki Harms PA Active LEVAQUIN 500 MG ORAL TABLET Take one tablet daily LEVOFLOXACIN 83942232647 No Longer Active Rikki Harms PA Active LEVAQUIN 500 MG ORAL TABLET 1 tablet by mouth daily LEVOFLOXACIN 48484270917 No Longer Active Marta Viramontes APRN Active CHERATUSSIN AC 100-10 MG/5ML ORAL SYRUP 1 tsp by mouth every 4 hours as needed for cough GUAIFENESIN-CODEINE 29220127359 No Longer Active Rikki Harms PA Active MUPIROCIN 2 % EXTERNAL OINTMENT Use in each nostril in am and pm MUPIROCIN 86667893110 No Longer Active Rikki Harms PA Active DOXYCYCLINE HYCLATE 100 MG ORAL CAPSULE Take one bid DOXYCYCLINE HYCLATE 22041427473 No Longer Active Rikki Harms PA Active CLARITIN 10 MG ORAL TABLET 1prn LORATADINE 97731762849 No Longer Active Jocelyne Naff ACCESS SERVICES REPRESENTATIVE Active ASPIRIN 81 MG ORAL TABLET 1qd ASPIRIN 44553733869 No Longer Active Jocelyne Naff ACCESS SERVICES REPRESENTATIVE Active DOXYCYCLINE HYCLATE 100 MG ORAL CAPSULE 1 cap by mouth twice daily DOXYCYCLINE HYCLATE 39199731111 No Longer Active Rikki Harms PA Active VITAMIN D3 25636 UNIT ORAL CAPSULE 1 pill by mouth weekly, for vitamin D deficiency CHOLECALCIFEROL 92853260907 No Longer Active Jennifer Chun MD PhD Active ANASTROZOLE 1 MG ORAL TABLET Take one by mouth daily ANASTROZOLE 47260938586 Active Jennifer Chun MD PhD Active ZITHROMAX 250 MG ORAL TABLET 2 po today, then 1 po q days 2-5 AZITHROMYCIN 07326950806 No Longer Active Rikki Harms PA Active MECLIZINE HCL 25 MG ORAL TABLET 1 prn MECLIZINE HCL 86776001216 No Longer Active Solomon Alamo MD Active CHERATUSSIN AC SYRUP prn as directed GUAIFENESIN- CODEINE SYRP 99840291410 No Longer Active Rikki Harms PA Active MULTIVITAMINS TABS 1qd MULTIPLE VITAMIN 89093497514 No Longer Active Rikki Harms PA Active OMEPRAZOLE 20 MG ORAL CAPSULE DELAYED RELEASE 1 PO Q D OMEPRAZOLE 02613655710 Active Jocelyne Naff ACCESS SERVICES REPRESENTATIVE Active ZITHROMAX Z-CAROLYN 250 MG ORAL TABLET 2x1day,7q0rqov AZITHROMYCIN 37055924633 No Longer Active Jocelyne Naff ACCESS SERVICES REPRESENTATIVE Active MULTIVITAMINS TABS 1qd MULTIVITAMINS TABS MULTIPLE VITAMIN Inactive CHERATUSSIN AC SYRUP prn as directed CHERATUSSIN AC SYRUP GUAIFENESIN-CODEINE SYRP Inactive MECLIZINE HCL 25 MG ORAL TABLET 1 prn MECLIZINE HCL 25 MG ORAL TABLET 152732 MECLIZINE HCL Inactive ASPIRIN 81 MG ORAL TABLET 1qd ASPIRIN 81 MG ORAL TABLET 808591 ASPIRIN Inactive CLARITIN 10 MG ORAL TABLET 1prn CLARITIN 10 MG ORAL TABLET 078452 LORATADINE Inactive DOXYCYCLINE HYCLATE 100 MG ORAL CAPSULE Take one bid DOXYCYCLINE HYCLATE 100 MG ORAL CAPSULE 1212889 DOXYCYCLINE HYCLATE Inactive MUPIROCIN 2 % EXTERNAL OINTMENT Use in each nostril in am and pm MUPIROCIN 2 % EXTERNAL OINTMENT 741381 MUPIROCIN Inactive CHERATUSSIN AC 100-10 MG/5ML ORAL SYRUP 1 tsp by mouth every 4 hours as needed for cough CHERATUSSIN AC 100-10 MG/5ML ORAL SYRUP 279034 GUAIFENESIN-CODEINE Inactive LEVAQUIN 500 MG ORAL TABLET 1 tablet by mouth daily LEVAQUIN 500 MG ORAL TABLET 655524 LEVOFLOXACIN Inactive LEVAQUIN 500 MG ORAL TABLET Take one tablet daily LEVAQUIN 500 MG ORAL TABLET 989068 LEVOFLOXACIN Inactive LEVAQUIN 750 MG ORAL TABLET 1 po qd x 7 days LEVAQUIN 750 MG ORAL TABLET 315552 LEVOFLOXACIN Inactive ALBUTEROL SULFATE (2.5 MG/3ML) 0.083% INHALATION NEBULIZATION SOLUTION one vial per nebulizer every 4-6 hours as needed ALBUTEROL SULFATE (2.5 MG/3ML) 0.083% INHALATION NEBULIZATION SOLUTION 637274 ALBUTEROL SULFATE Inactive TUSSIONEX PENNKINETIC ER 10-8 MG/5ML ORAL SUSPENSION EXTENDED RELEASE 5ml po q12hr PRN Cough TUSSIONEX PENNKINETIC ER 10-8 MG/5ML ORAL SUSPENSION EXTENDED RELEASE HYDROCOD POLST-CHLORPHEN POLST Inactive FLONASE ALLERGY RELIEF 50 MCG/ACT NASAL SUSPENSION spray twice in each nostril one time daily FLONASE ALLERGY RELIEF 50 MCG/ ACT NASAL SUSPENSION 8642975 FLUTICASONE PROPIONATE Inactive BENZONATATE 200 MG ORAL CAPSULE One capsule tid. BENZONATATE 200 MG ORAL CAPSULE 715008 BENZONATATE Inactive CEPHALEXIN 500 MG ORAL CAPSULE Take one four times a day CEPHALEXIN 500 MG ORAL CAPSULE 451820 CEPHALEXIN Inactive TUSSIONEX PENNKINETIC ER 10-8 MG/5ML ORAL SUSPENSION EXTENDED RELEASE 5ml po q12hr PRN Cough TUSSIONEX PENNKINETIC ER 10-8 MG/5ML ORAL SUSPENSION EXTENDED RELEASE HYDROCOD POLST-CHLORPHEN POLST Inactive TESSALON PERLES 100 MG ORAL CAPSULE 1 to 2 tablets by mouth 3 times daily as needed for cough TESSALON PERLES 100 MG ORAL CAPSULE 144180 BENZONATATE Inactive PROAIR HFA 108 (90 BASE) MCG/ACT INHALATION AEROSOL SOLUTION 2 puffs four times a day as needed PROAIR HFA 108 (90 BASE) MCG/ACT INHALATION AEROSOL SOLUTION ALBUTEROL SULFATE Inactive ZITHROMAX Z-CAROLYN 250 MG ORAL TABLET 2x1day,4w3hxof ZITHROMAX Z-CAROLYN 250 MG ORAL TABLET 578131 AZITHROMYCIN Inactive ZITHROMAX 250 MG ORAL TABLET 2 po today, then 1 po q days 2-5 ZITHROMAX 250 MG ORAL TABLET 366569 AZITHROMYCIN Inactive VITAMIN D3 43869 UNIT ORAL CAPSULE 1 pill by mouth weekly, for vitamin D deficiency VITAMIN D3 42197 UNIT ORAL CAPSULE CHOLECALCIFEROL Inactive DOXYCYCLINE HYCLATE 100 MG ORAL CAPSULE 1 cap by mouth twice daily DOXYCYCLINE HYCLATE 100 MG ORAL CAPSULE 5772851 DOXYCYCLINE HYCLATE Inactive MEDROL 4 MG ORAL TABLET THERAPY PACK 6 tabs on day 1, 5 tabs on day 2, 4 tabs on day 3, 3 tabs on day 4, 2 tabs on day 5, 1 tab on day 6 MEDROL 4 MG ORAL TABLET THERAPY PACK 663583 METHYLPREDNISOLONE Inactive KEFLEX 500 MG ORAL CAPSULE 1 po qid KEFLEX 500 MG ORAL CAPSULE 923896 CEPHALEXIN Inactive MEDROL 4 MG ORAL TABLET THERAPY PACK 6 tabs on day 1, 5 tabs on day 2, 4 tabs on day 3, 3 tabs on day 4, 2 tabs on day 5, 1 tab on day 6 MEDROL 4 MG ORAL TABLET THERAPY PACK 763352 METHYLPREDNISOLONE Inactive AUGMENTIN 875-125 MG ORAL TABLET 1 po BID x 10 days AUGMENTIN 875-125 MG ORAL TABLET 818551 AMOXICILLIN-POT CLAVULANATE Inactive AUGMENTIN 875-125 MG ORAL TABLET Take one tablet twice a day with food 04/25 AUGMENTIN 875-125 MG ORAL TABLET 831411 AMOXICILLIN-POT CLAVULANATE Inactive DOXYCYCLINE HYCLATE 100 MG ORAL CAPSULE 1 cap by mouth twice daily DOXYCYCLINE HYCLATE 100 MG ORAL CAPSULE 7671350 DOXYCYCLINE HYCLATE Inactive Vital Signs Date Name [...] Measured Encounters Code Encounter Date Provider Facility CPT-12400 Level 3 Est. Patient 22:53:06 RESPIRATORY THERAPY INSTRUCTOR Marta Viramontes [facility]-30009 Level 3 Est. Patient 16:07:34 CDT Marta Ana M [facility] [place] CPT-94584 Level 3 Est. Patient 15:39:01 [facility] Patient 17:31:07 CDT Marta Viramontes [facility]-80400 Level 3 Est. Patient 05:11:40 CDT Rikki GRANADOS [facility]-50113 Level 2 Est. Patient 14:30:43 RESPIRATORY THERAPY INSTRUCTOR Marta Viramontes [facility] CPT-74960 Level 4 Est. Patient 09:14:36 RESPIRATORY THERAPY INSTRUCTOR Rikki [facility] CPT-56764 Level 2 Est. Patient 09:07:[address] [facility] CPT-37185 Level 4 Est. Patient 11:55:00 CDT Rikki [facility] CPT-14529 Level 3 Est. Patient 13:25:16 CDT Jennifer Chun MD PhD [facility]-21505 Level 3 Est. Patient 17:31:22 CDT Solomon Alamo MD [facility]-61808 Level 3 Est. Patient 08:02:14 CDT Solomon Alamo MD [facility]-62790 Level 3 Est. Patient 17:23:[address] [facility] CPT-86248 Level 3 Est. Patient 11:22:[address] [facility] Procedures Code Procedure Name Date Entry Date Standard Description CPT-79146 Venipuncture Draw Fee 16:09:39 CDT CPT-97297 Venipuncture Draw Fee 12:43:48 RESPIRATORY THERAPY INSTRUCTOR CPT-37252 BMP - LAB USE ONLY 10:32:33 RESPIRATORY THERAPY INSTRUCTOR CPT-80017 Venipuncture Draw Fee 10:32:33 RESPIRATORY THERAPY INSTRUCTOR CPT-38634 Magnesium - LAB USE ONLY 09:54:30 CDT CPT-02735 TSH - LAB USE ONLY 09:54:30 CDT CPT-00108 Lipid - LAB USE ONLY 09:54:30 CDT CPT-62317 Venipuncture Draw Fee 09:54:29 CDT CPT-12079 Venipuncture Draw Fee 18:27:04 CDT CPT-22093 Chest 2V Frontal and Lat 10:57:00 RESPIRATORY THERAPY INSTRUCTOR CPT-21751 Venipuncture Draw Fee 10:56:59 RESPIRATORY THERAPY INSTRUCTOR CPT-52811 Venipuncture Draw Fee 09:22:28 RESPIRATORY THERAPY INSTRUCTOR CPT-84756 Chest 2V Frontal and Lat 09:22:27 RESPIRATORY THERAPY INSTRUCTOR CPT-I/D I/D Abscess 09:43:13 CDT CPT-10723 Venipuncture Draw Fee 08:16:46 RESPIRATORY THERAPY INSTRUCTOR CPT-99031 Venipuncture Draw Fee 08:18:55 RESPIRATORY THERAPY INSTRUCTOR CPT-63414 Venipuncture Draw Fee 08:31:18 RESPIRATORY THERAPY INSTRUCTOR CPT-96234 Venipuncture Draw Fee 11:42:52 RESPIRATORY THERAPY INSTRUCTOR CPT-66614 Venipuncture Draw Fee 13:26:37 RESPIRATORY THERAPY INSTRUCTOR CPT-17191 Venipuncture Draw Fee 09:23:38 RESPIRATORY THERAPY INSTRUCTOR CPT-000 Give Appropriate Tetanus Booster 10:23:50 CDT CPT-77285 Bone Density 08:28:45 CDT CPT-15177 Bone Density 11:35:15 CDT CPT-PV Prev. Care Visit 12:19:00 CDT CPT-10031 Venipuncture Draw Fee 15:02:58 CDT
--- OUTSIDE RECORDS SUMMARY | 2018-01-19 07:19 | XMS REPORT | Clinical Summary ---
Author Author Admin, E Organization [facility] Address Unknown Phone Unavailable Allergies, Adverse Reactions, Alerts Allergy Name Reaction Description Start Date Severity Status Provider SULFA facial swelling Critical Active Jocelyne Naff PRIVATE INQUIRY AGENT Conditions or Problems Problem Name Problem Code Onset Date Status Entry Date Provider Comment Standard Description Annotate G E R D 530.81 Active Jocelyne Naff PRIVATE INQUIRY AGENT Esophageal reflux FH COLON CANCER V16.0 Active Jocelyne Naff PRIVATE INQUIRY AGENT Family history of malignant neoplasm of gastrointestinal [...] sites Rash 782.1 Active Marta Viramontes MACHINE WORKER Rash and other nonspecific skin eruption Adenocarcinoma, [...] 5, 1 tab on day 6 METHYLPREDNISOLONE 64136090180 No Longer Active Rikki GRANADOS Active ALBUTEROL SULFATE 0.083 % NEBU SOLN one vial per nebulizer every 4-6 hours as needed ALBUTEROL SULFATE 27595810652 Active Rikki Harms PA Active LEVAQUIN 750 MG TABS 1 po qd x 7 days LEVOFLOXACIN 79930628288 No Longer Active Rikki Harms PA Active LEVAQUIN 500 MG ORAL TABS Take one tablet daily LEVOFLOXACIN 90371884196 No Longer Active Rikki Harms PA Active PROAIR HFA 108 (90 BASE) MCG/ACT AERS 2 puffs four times a day as needed 2014 ALBUTEROL SULFATE 85280084904 Active Marta Yokum MACHINE WORKER Active TUSSIONEX PENNKINETIC ER 10-8 MG/5ML LQCR 5ml po q12hr PRN Cough HYDROCOD POLST-CHLORPHEN POLST 73677341331 Active Rikki Harms PA Active FLONASE ALLERGY RELIEF 50 MCG/ACT NASAL SUSP spray twice in each nostril one time daily FLUTICASONE PROPIONATE 88783046522 Active Marta Yokum MACHINE WORKER Active LEVAQUIN 500 MG TAB 1 tablet by mouth daily LEVOFLOXACIN 01199254605 No Longer Active Marta Yokum MACHINE WORKER Active BENZONATATE 200 MG ORAL CAPS One capsule tid. BENZONATATE 22791880922 Active Marta Yokum MACHINE WORKER Active CHERATUSSIN AC 100-10 MG/5ML SYRP 1 tsp by mouth every 4 hours as needed for cough GUAIFENESIN-CODEINE 94025766720 No Longer Active Rikki Harms PA Active MUPIROCIN 2 % EXT OINT Use in each nostril in am and pm MUPIROCIN 39011741316 No Longer Active Rikki Harms PA Active DOXYCYCLINE HYCLATE 100 MG ORAL CAPS Take one bid DOXYCYCLINE HYCLATE 39530292453 No Longer Active Rikki Harms PA Active CLARITIN 10 MG TABS 1prn LORATADINE 24720830142 No Longer Active Jocelyne Naff PRIVATE INQUIRY AGENT Active ASPIRIN 81 MG TABS 1qd ASPIRIN 89523969949 No Longer Active Jocelyne Naff PRIVATE INQUIRY AGENT Active DOXYCYCLINE HYCLATE 100 MG CAP 1 cap by mouth twice daily DOXYCYCLINE HYCLATE 37679448823 No Longer Active Rikki Harms PA Active VITAMIN D3 60682 UNIT CAPS 1 pill by mouth weekly, for vitamin D deficiency CHOLECALCIFEROL 69543098231 No Longer Active Jennifer Chun MD PhD Active ANASTROZOLE 1 MG ORAL TABS Take one by mouth daily ANASTROZOLE 87064707060 Active Jennifer Chun MD PhD Active ZITHROMAX 250 MG TAB 2 po today, then 1 po q days 2-5 AZITHROMYCIN 41782162539 No Longer Active Rikki Harms PA Active MECLIZINE HCL 25 MG TABS 1 prn MECLIZINE HCL 59159717805 No Longer Active Solomon Alamo MD Active CHERATUSSIN AC SYRP prn as directed GUAIFENESIN- CODEINE SYRP 84313641387 No Longer Active Rikki Harms PA Active MULTIVITAMINS TABS 1qd MULTIPLE VITAMIN 04298288408 No Longer Active Rikki Harms PA Active OMEPRAZOLE 20 MG CPDR 1 PO Q D OMEPRAZOLE 38121270256 Active Rikki Harms PA Active ZITHROMAX Z-CAROLYN 250 MG TABS 2x1day,[id number] AZITHROMYCIN 80895368053 No Longer Active Jocelyne Naff PRIVATE INQUIRY AGENT Active MULTIVITAMINS TABS 1qd MULTIVITAMINS TABS MULTIPLE VITAMIN Inactive CHERATUSSIN AC SYRP prn as directed CHERATUSSIN AC SYRP GUAIFENESIN-CODEINE SYRP Inactive MECLIZINE HCL 25 MG TABS 1 prn MECLIZINE HCL 25 MG TABS 549265 MECLIZINE HCL Inactive ASPIRIN 81 MG TABS 1qd ASPIRIN 81 MG TABS 710006 ASPIRIN Inactive CLARITIN 10 MG TABS 1prn CLARITIN 10 MG TABS 307381 LORATADINE Inactive DOXYCYCLINE HYCLATE 100 MG ORAL CAPS Take one bid DOXYCYCLINE HYCLATE 100 MG ORAL CAPS 4878451 DOXYCYCLINE HYCLATE Inactive MUPIROCIN 2 % EXT OINT Use in each nostril in am and pm MUPIROCIN 2 % EXT OINT 886157 MUPIROCIN Inactive CHERATUSSIN AC 100-10 MG/5ML SYRP 1 tsp by mouth every 4 hours as needed for cough CHERATUSSIN AC 100-10 MG/5ML SYRP 789226 GUAIFENESIN-CODEINE Inactive LEVAQUIN 500 MG TAB 1 tablet by mouth daily LEVAQUIN 500 MG TAB 572394 LEVOFLOXACIN Inactive LEVAQUIN 500 MG ORAL TABS Take one tablet daily LEVAQUIN 500 MG ORAL TABS 434407 LEVOFLOXACIN Inactive LEVAQUIN 750 MG TABS 1 po qd x 7 days LEVAQUIN 750 MG TABS 939127 LEVOFLOXACIN Inactive ZITHROMAX Z-CAROLYN 250 MG TABS 2x1day,[id number] ZITHROMAX Z-CAROLYN 250 MG TABS 9864082 AZITHROMYCIN Inactive ZITHROMAX 250 MG TAB 2 po today, then 1 po q days 2-5 ZITHROMAX 250 MG TAB 9474311 AZITHROMYCIN Inactive VITAMIN D3 97135 UNIT CAPS 1 pill by mouth weekly, for vitamin D deficiency VITAMIN D3 76007 UNIT CAPS CHOLECALCIFEROL Inactive DOXYCYCLINE HYCLATE 100 MG CAP 1 cap by mouth twice daily DOXYCYCLINE HYCLATE 100 MG CAP 5669880 DOXYCYCLINE HYCLATE Inactive MEDROL (CAROLYN) 4 MG [...] % 11.6-14.8 platelet count 143 10^3/MM^3 10*3/mm3 801-565 1334/11/25 leukocyte count, blood 2.1 10^3/MM^3 10*3/mm3 4.6-10.2 [...] % 11.6-14.8 platelet count 139 10^3/MM^3 10*3/mm3 161-361 6727/12/02 leukocyte count, blood 6.7 10^3/MM^3 10*3/mm3 4.6-10.2 [...] % 11.6-14.8 platelet count 258 10^3/MM^3 10*3/mm3 065-335 8990/12/09 leukocyte count, blood 5.3 10^3/MM^3 10*3/mm3 4.6-10.2 [...] % 11.6-14.8 platelet count 240 10^3/MM^3 10*3/mm3 365-673 2195/12/16 leukocyte count, blood 3.2 10^3/MM^3 10*3/mm3 4.6-10.2 [...] % 11.6-14.8 platelet count 158 10^3/MM^3 10*3/mm3 165-872 6963/12/18 leukocyte count, blood 8.8 10^3/MM^3 10*3/mm3 4.6-10.2 [...] % 11.6-14.8 platelet count 207 10^3/MM^3 10*3/mm3 612-770 7836/12/23 leukocyte count, blood 6.2 10^3/MM^3 10*3/mm3 4.6-10.2 [...] % 11.6-14.8 platelet count 183 10^3/MM^3 10*3/mm3 516-957 9885/11/11 leukocyte count, blood 2.0 10^3/MM^3 10*3/mm3 4.6-10.2 [...] % 11.6-14.8 platelet count 203 10^3/MM^3 10*3/mm3 035-844 8894/12/30 leukocyte count, blood 5.2 10^3/MM^3 10*3/mm3 4.6-10.2 [...] % 11.6-14.8 platelet count 200 10^3/MM^3 10*3/mm3 369-282 1544/03/02 leukocyte count, blood 5.1 10^3/MM^3 10*3/mm3 4.6-10.2 [...] Panel - Chemistry sodium, serum 142 mmol/L 128-648 9638/02/04 carbon dioxide, venous blood 24.9 mmol/L 21.0-32.0 potassium, serum 4.1 mmol/L 3.5-5.2 chloride, serum 106 mmol/L 98-107 blood glucose 103 mg/dL 65-110 urea nitrogen, blood 25 mg/dL 7-18 creatinine, serum 0.83 mg/dL 0.55-1.30 alanine aminotransferase (SGPT), serum 38 U/L 12-78 aspartate aminotransferase (SGOT), serum 26 U/L 15-37 calcium, serum 8.7 mg/dL 8.5-10.1 bilirubin, serum, total 0.30 mg/dL 0.00-1.00 sodium, serum 140 mmol/L 952-198 1193/01/13 carbon dioxide, venous blood 26.4 mmol/L 21.0-32.0 potassium, serum 4.2 mmol/L 3.5-5.2 chloride, serum 104 mmol/L 98-107 blood glucose 101 mg/dL 65-110 urea nitrogen, blood 18 mg/dL 7-18 creatinine, serum 0.80 mg/dL 0.55-1.30 alanine aminotransferase (SGPT), serum 28 U/L aspartate aminotransferase (SGOT), serum 24 U/L 15-37 calcium, serum 8.7 mg/dL 8.5-10.1 bilirubin, serum, total 0.50 mg/dL 0.00-1.00 sodium, serum 138 mmol/L 507-859 6652/11/04 carbon dioxide, venous blood 27.7 mmol/L 21.0-32.0 potassium, serum 4.9 mmol/L 3.5-5.2 chloride, serum 104 mmol/L 98-107 blood glucose 92 mg/dL 65-110 urea nitrogen, blood 24 mg/dL 7-18 creatinine, serum 0.95 mg/dL 0.55-1.30 alanine aminotransferase (SGPT), serum 34 U/L aspartate aminotransferase (SGOT), serum 23 U/L - calcium, serum 8.9 mg/dL 8.5-10.1 bilirubin, serum, total 0.70 mg/dL 0.00-1.00 sodium, serum 140 mmol/L 611-746 0124/01/06 carbon dioxide, venous blood 27.2 mmol/L 21.0-32.0 [...] % 11.6-14.8 platelet count 289 10^3/MM^3 10*3/mm3 428-620 8635/01/06 leukocyte count, blood 4.1 10^3/MM^3 10*3/mm3 4.6-10.2 [...] % 11.6-14.8 platelet count 297 10^3/MM^3 10*3/mm3 181-819 8050/02/04 leukocyte count, blood 4.2 10^3/MM^3 10*3/mm3 4.6-10.2 [...] % 11.6-14.8 platelet count 271 10^3/MM^3 10*3/mm3 769-479 6959/11/04 leukocyte count, blood 3.8 10^3/MM^3 10*3/mm3 4.6-10.2 [...] Panel - Chemistry sodium, serum 140 mmol/L 083-205 4355/07/13 potassium, serum 4.5 mmol/L 3.5-5.2 chloride, serum 106 mmol/L 98-107 carbon dioxide, venous blood 27.7 mmol/L 21.0-32.0 blood glucose 105 mg/dL 65-110 urea nitrogen, blood 14 mg/dL 7-18 creatinine, serum 0.90 mg/dL 0.60-1.30 alanine aminotransferase (SGPT), serum 29 U/L 12-78 aspartate aminotransferase (SGOT), serum 22 U/L 15-37 calcium, serum 9.4 mg/dL 8.5-10.1 bilirubin, serum, total 0.70 mg/dL 0.00-1.00 cholesterol, serum 160 mg/dL 992-524 7594/07/13 triglyceride, serum, fasting 63 mg/dL 30-200 HDL [...] Panel - Chemistry sodium, serum 141 mmol/L 652-103 4547/11/18 carbon dioxide, venous blood 26.2 mmol/L 21.0-32.0 potassium, serum 4.4 mmol/L 3.5-5.2 chloride, serum 106 mmol/L 98-107 blood glucose 102 mg/dL 65-110 urea nitrogen, blood 24 mg/dL 7-18 creatinine, serum 0.77 mg/dL 0.55-1.30 alanine aminotransferase (SGPT), serum 30 U/L 12-78 aspartate aminotransferase (SGOT), serum 15 U/L 15-37 calcium, serum 8.3 mg/dL 8.5-10.1 bilirubin, serum, total 0.30 mg/dL 0.00-1.00 sodium, serum 139 mmol/L 736-261 5571/11/25 carbon dioxide, venous blood 27.9 mmol/L 21.0-32.0 potassium, serum 4.7 mmol/L 3.5-5.2 chloride, serum 105 mmol/L 98-107 blood glucose 94 mg/dL 65-110 urea nitrogen, blood 21 mg/dL 7-18 creatinine, serum 0.79 mg/dL 0.55-1.30 alanine aminotransferase (SGPT), serum 40 U/L aspartate aminotransferase (SGOT), serum 22 U/L 15-37 calcium, serum 8.5 mg/dL 8.5-10.1 bilirubin, serum, total 0.80 mg/dL 0.00-1.00 sodium, serum 142 mmol/L 964-324 6302/12/09 carbon dioxide, venous blood 28.5 mmol/L 21.0-32.0 potassium, serum 5.0 mmol/L 3.5-5.2 chloride, serum 109 mmol/L 98-107 blood glucose 91 mg/dL 65-110 urea nitrogen, blood 27 mg/dL - creatinine, serum 0.88 mg/dL 0.55-1.30 alanine aminotransferase (SGPT), serum 31 U/L aspartate aminotransferase (SGOT), serum 18 U/L 15-37 calcium, serum 8.9 mg/dL 8.5-10.1 bilirubin, serum, total 0.40 mg/dL 0.00-1.00 sodium, serum 140 mmol/L 821-640 1189/12/16 carbon dioxide, venous blood 25.4 mmol/L 21.0-32.0 potassium, serum 4.1 mmol/L 3.5-5.2 chloride, serum 104 mmol/L 98-107 blood glucose 110 mg/dL 65-110 urea nitrogen, blood 24 mg/dL 7- creatinine, serum 0.87 mg/dL 0.55-1.30 alanine aminotransferase (SGPT), serum 35 U/L aspartate aminotransferase (SGOT), serum 21 U/L 15-37 calcium, serum 8.4 mg/dL 8.5-10.1 bilirubin, serum, total 0.50 mg/dL 0.00-1.00 sodium, serum 141 mmol/L 632-492 2595/12/02 carbon dioxide, venous blood 25.9 mmol/L 21.0-32.0 potassium, serum 4.7 mmol/L 3.5-5.2 chloride, serum 106 mmol/L 98-107 blood glucose 78 mg/dL 65-110 urea nitrogen, blood 24 mg/dL 7-18 creatinine, serum 0.75 mg/dL 0.55-1.30 alanine aminotransferase (SGPT), serum 31 U/L aspartate aminotransferase (SGOT), serum 20 U/L -37 calcium, serum 8.7 mg/dL 8.5-10.1 bilirubin, serum, total 0.30 mg/dL 0.00-1.00 sodium, serum 139 mmol/L 173-643 1495/12/30 carbon dioxide, venous blood 28.2 mmol/L 21.0-32.0 potassium, serum 3.9 mmol/L 3.5-5.2 chloride, serum 105 mmol/L 98-107 blood glucose 91 mg/dL 65-110 urea nitrogen, blood 17 mg/dL 7-18 creatinine, serum 0.81 mg/dL 0.55-1.30 alanine aminotransferase (SGPT), serum 29 U/L aspartate aminotransferase (SGOT), serum 22 U/L 15-37 calcium, serum 8.8 mg/dL 8.5-10.1 bilirubin, serum, total 0.50 mg/dL 0.00-1.00 sodium, serum 141 mmol/L 627-083 6650/11/11 carbon dioxide, venous blood 26.8 mmol/L 21.0-32.0 potassium, serum 4.2 mmol/L 3.5-5.2 chloride, serum 106 mmol/L 98-107 blood glucose 95 mg/dL 65-110 urea nitrogen, blood 18 mg/dL 7-18 creatinine, serum 0.70 mg/dL 0.55-1.30 alanine aminotransferase (SGPT), serum 33 U/L 12-78 aspartate aminotransferase (SGOT), serum 22 U/L 15-37 calcium, serum 8.5 mg/dL 8.5-10.1 bilirubin, serum, total 0.30 mg/dL 0.00-1.00 sodium, serum 143 mmol/L 649-102 5736/12/23 carbon dioxide, venous blood 24.6 mmol/L 21.0-32.0 potassium, serum 4.1 mmol/L 3.5-5.2 chloride, serum 107 mmol/L 98-107 blood glucose 98 mg/dL 65-110 urea nitrogen, blood 22 mg/dL 7-18 creatinine, serum 0.77 mg/dL 0.55-1.30 alanine aminotransferase (SGPT), serum 28 U/L -78 aspartate aminotransferase (SGOT), serum 20 U/L 15-37 calcium, serum 8.6 mg/dL 8.5-10.1 bilirubin, serum, total 0.30 mg/dL 0.00-1.00 Lab Report: VITAMIN D, 25-HYDROXY/77850 - Chemistry vitamin D 25-hydroxy, serum 24 ng/mL 30-100 Encounters Code Encounter Date Provider Facility CPT-25688 Level 2 Est. Patient 14:30:43 OPTICAL SCIENTIST Marta Viramontes [facility] CPT-85423 Level 4 Est. Patient 09:14:36 OPTICAL SCIENTIST Rikki GRANADOS [facility] CPT-05394 Level 2 Est. Patient 09:07:32 CDT Marta Viramontes MACHINE WORKER [facility] CPT-58662 Level 4 Est. Patient 11:55:00 CDT Rikki GRANADOS [facility] CPT-50415 Level 3 Est. Patient 13:25:16 CDT Jennifer Chun MD PhD [facility] CPT-16531 Level 3 Est. Patient 17:31:22 CDT Solomon Alamo MD [facility] CPT-79745 Level 3 Est. Patient 08:02:14 CDT Solomon Alamo MD [facility] CPT-54046 Level 3 Est. Patient 17:23:53 CDT Rikki GRANADOS [facility] CPT-84058 Level 3 Est. Patient 11:22:41 CDT Darryn Hearn [facility] Procedures Code Procedure Name Date Entry Date Standard Description CPT-82133 Chest 2V Frontal and Lat 10:57:00 OPTICAL SCIENTIST CPT-94932 Venipuncture Draw Fee 10:56:59 OPTICAL SCIENTIST CPT-97463 Venipuncture Draw Fee 09:22:28 OPTICAL SCIENTIST CPT-10098 Chest 2V Frontal and Lat 09:22:27 OPTICAL SCIENTIST CPT-I/D I/D Abscess 09:43:13 CDT CPT-44366 Venipuncture Draw Fee 08:16:46 OPTICAL SCIENTIST CPT-03904 Venipuncture Draw Fee 08:18:55 OPTICAL SCIENTIST CPT-29655 Venipuncture Draw Fee 08:31:18 OPTICAL SCIENTIST CPT-03180 Venipuncture Draw Fee 11:42:52 OPTICAL SCIENTIST CPT-62321 Venipuncture Draw Fee 13:26:37 OPTICAL SCIENTIST CPT-94038 Venipuncture Draw Fee 09:23:38 OPTICAL SCIENTIST CPT-000 Give Appropriate Tetanus Booster 10:23:50 CDT CPT-76835 Bone Density 08:28:45 CDT CPT-11046 Bone Density 11:35:15 CDT CPT-PV Prev. Care Visit 12:19:00 CDT CPT-78770 Venipuncture Draw Fee 15:02:58 CDT
--- OUTSIDE RECORDS SUMMARY | 2018-01-19 07:20 | XMS REPORT | Clinical Summary ---
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 Esophageal reflux FH COLON CANCER V16.0 Active Jocelyne Naff MANAGER CONTRACTING Family history of malignant neoplasm of gastrointestinal [...] NDC Status Provider Patient Instruction VITAMIN D3 41154 UNIT CAPS 1 qWeek x 4 months for vitamin D deficiency 04/09 CHOLECALCIFEROL 38081580175 Active Marta Viramontes APRN Active CEPHALEXIN 500 MG ORAL CAPS Take one four times a day CEPHALEXIN 01962259488 No Longer Active Marta Viramontes APRN Active BIOTIN 1000 MCG ORAL TABS Take one daily BIOTIN 87677643234 Active Rikki GRANADOS Active VITAMIN C 500 MG ORAL CAPS Take one daily ASCORBIC ACID 84973573202 Active Rikki Daryn PA Active BENZONATATE 200 MG ORAL CAPS One capsule tid. BENZONATATE 94954356261 No Longer Active Rikki Harms PA Active FLONASE ALLERGY RELIEF 50 MCG/ACT NASAL SUSP spray twice in each nostril one time daily FLUTICASONE PROPIONATE 11229470318 No Longer Active Rikki Harms PA Active TUSSIONEX PENNKINETIC ER 10-8 MG/5ML LQCR 5ml po q12hr PRN Cough HYDROCOD POLST-CHLORPHEN POLST 08982057599 No Longer Active Rikki Harms PA Active NIACIN ER 500 MG ORAL CR-TABS Take one twice daily NIACIN 15225664842 Active Rikki Daryn PA Active ALBUTEROL SULFATE 0.083 % NEBU SOLN one vial per nebulizer every 4-6 hours as needed ALBUTEROL SULFATE 49626584036 No Longer Active Rikki Harms PA Active MEDROL (CAROLYN) 4 MG TABS 6 tabs on day 1, 5 tabs on day 2, 4 tabs on day 3, 3 tabs on day 4, 2 tabs on day 5, 1 tab on day 6 METHYLPREDNISOLONE 97544656835 No Longer Active Rikki Harms PA Active LEVAQUIN 750 MG TABS 1 po qd x 7 days LEVOFLOXACIN 95024995307 No Longer Active Rikki Harms PA Active LEVAQUIN 500 MG ORAL TABS Take one tablet daily LEVOFLOXACIN 15211572581 No Longer Active Rikki Harms PA Active PROAIR HFA 108 (90 BASE) MCG/ACT AERS 2 puffs four times a day as needed 2014 ALBUTEROL SULFATE 04429347168 Active Marta Yokum MANAGER [employer] Active LEVAQUIN 500 MG TAB 1 tablet by mouth daily LEVOFLOXACIN 02044651033 No Longer Active Marta Yokum MANAGER [employer] Active CHERATUSSIN AC 100-10 MG/5ML SYRP 1 tsp by mouth every 4 hours as needed for cough GUAIFENESIN-CODEINE 21684847747 No Longer Active Rikki Harms PA Active MUPIROCIN 2 % EXT OINT Use in each nostril in am and pm MUPIROCIN 44744354102 No Longer Active Rikki Harms PA Active DOXYCYCLINE HYCLATE 100 MG ORAL CAPS Take one bid DOXYCYCLINE HYCLATE 62802907226 No Longer Active Rikki Harms PA Active CLARITIN 10 MG TABS 1prn LORATADINE 12117853616 No Longer Active Jocelyne Naff MANAGER CONTRACTING Active ASPIRIN 81 MG TABS 1qd ASPIRIN 08645785602 No Longer Active Jocelyne Naff MANAGER CONTRACTING Active DOXYCYCLINE HYCLATE 100 MG CAP 1 cap by mouth twice daily DOXYCYCLINE HYCLATE 71541606396 No Longer Active Rikki Harms PA Active VITAMIN D3 46219 UNIT CAPS 1 pill by mouth weekly, for vitamin D deficiency CHOLECALCIFEROL 56927152957 No Longer Active Jennifer Chun MD PhD Active ANASTROZOLE 1 MG ORAL TABS Take one by mouth daily ANASTROZOLE 18371354053 Active Jennifer Chun MD PhD Active ZITHROMAX 250 MG TAB 2 po today, then 1 po q days 2-5 AZITHROMYCIN 96409626371 No Longer Active Rikki Harms PA Active MECLIZINE HCL 25 MG TABS 1 prn MECLIZINE HCL 15573028927 No Longer Active Solomon Alamo MD Active CHERATUSSIN AC SYRP prn as directed GUAIFENESIN- CODEINE SYRP 30036252985 No Longer Active Rikki Harms PA Active MULTIVITAMINS TABS 1qd MULTIPLE VITAMIN 72890548234 No Longer Active Rikki Harms PA Active OMEPRAZOLE 20 MG CPDR 1 PO Q D OMEPRAZOLE 45681289860 Active Rikki Harms PA Active ZITHROMAX Z-CAROLYN 250 MG TABS 2x1day,4i2ktmt AZITHROMYCIN 08583894085 No Longer Active Jocelyne Naff MANAGER CONTRACTING Active MULTIVITAMINS TABS 1qd MULTIVITAMINS TABS MULTIPLE VITAMIN Inactive CHERATUSSIN AC SYRP prn as directed CHERATUSSIN AC SYRP GUAIFENESIN-CODEINE SYRP Inactive MECLIZINE HCL 25 MG TABS 1 prn MECLIZINE HCL 25 MG TABS 221064 MECLIZINE HCL Inactive ASPIRIN 81 MG TABS 1qd ASPIRIN 81 MG TABS ASPIRIN Inactive CLARITIN 10 MG TABS 1prn CLARITIN 10 MG TABS 039485 LORATADINE Inactive DOXYCYCLINE HYCLATE 100 MG ORAL CAPS Take one bid DOXYCYCLINE HYCLATE 100 MG ORAL CAPS 3212617 DOXYCYCLINE HYCLATE Inactive MUPIROCIN 2 % EXT OINT Use in each nostril in am and pm MUPIROCIN 2 % EXT OINT 118582 MUPIROCIN Inactive CHERATUSSIN AC 100-10 MG/5ML SYRP 1 tsp by mouth every 4 hours as needed for cough CHERATUSSIN AC 100-10 MG/5ML SYRP 892309 GUAIFENESIN-CODEINE Inactive LEVAQUIN 500 MG TAB 1 tablet by mouth daily LEVAQUIN 500 MG TAB 989328 LEVOFLOXACIN Inactive LEVAQUIN 500 MG ORAL TABS Take one tablet daily LEVAQUIN 500 MG ORAL TABS 012471 LEVOFLOXACIN Inactive LEVAQUIN 750 MG TABS 1 po qd x 7 days LEVAQUIN 750 MG TABS 370572 LEVOFLOXACIN Inactive ALBUTEROL SULFATE 0.083 % NEBU SOLN one vial per nebulizer every 4-6 hours as needed ALBUTEROL SULFATE 0.083 % NEBU SOLN 274616 ALBUTEROL SULFATE Inactive TUSSIONEX PENNKINETIC ER 10-8 MG/5ML LQCR 5ml po q12hr PRN Cough TUSSIONEX PENNKINETIC ER 10-8 MG/5ML LQCR HYDROCOD POLST- CHLORPHEN POLST Inactive FLONASE ALLERGY RELIEF 50 MCG/ACT NASAL SUSP spray twice in each nostril one time daily FLONASE ALLERGY RELIEF 50 MCG/ACT NASAL SUSP 5161838 FLUTICASONE PROPIONATE Inactive BENZONATATE 200 MG ORAL CAPS One capsule tid. BENZONATATE 200 MG ORAL CAPS 321463 BENZONATATE Inactive CEPHALEXIN 500 MG ORAL CAPS Take one four times a day CEPHALEXIN 500 MG ORAL CAPS 950696 CEPHALEXIN Inactive ZITHROMAX Z-CAROLYN 250 MG TABS 2x1day,9p8eevl ZITHROMAX Z-CAROLYN 250 MG TABS 0728901 AZITHROMYCIN Inactive ZITHROMAX 250 MG TAB 2 po today, then 1 po q days 2-5 ZITHROMAX 250 MG TAB 6507290 AZITHROMYCIN Inactive VITAMIN D3 97465 UNIT CAPS 1 pill by mouth weekly, for vitamin D deficiency VITAMIN D3 75681 UNIT CAPS CHOLECALCIFEROL Inactive DOXYCYCLINE HYCLATE 100 MG CAP 1 cap by mouth twice daily DOXYCYCLINE HYCLATE 100 MG CAP 3651412 DOXYCYCLINE HYCLATE Inactive MEDROL (CAROLYN) 4 MG TABS 6 tabs on day 1, 5 tabs on day 2, 4 tabs on day 3, 3 tabs on day 4, 2 tabs on day 5, 1 tab on day 6 MEDROL ( CAROLYN) 4 MG TABS 342192 METHYLPREDNISOLONE Inactive Vital Signs Date Name Value [...] Panel - Chemistry sodium, serum 142 mmol/L 560-922 0226/07/25 potassium, serum 4.0 mmol/L 3.5-5.2 chloride, serum 107 mmol/L 98-107 carbon dioxide, venous blood 31.6 mmol/L 21.0-32.0 blood glucose 108 mg/dL 65-110 calcium, serum 9.2 mg/dL 8.5-10.1 urea nitrogen, blood 20 mg/dL 7-18 creatinine, serum 0.92 mg/dL 0.55-1.30 sodium, serum 141 mmol/L 313-438 1920/11/11 potassium, serum 4.2 mmol/L 3.5-5.2 chloride, serum 106 mmol/L 98-107 carbon dioxide, venous blood 29.1 mmol/L 21.0-32.0 blood glucose 95 mg/dL 65-110 calcium, serum 8.6 mg/dL 8.5-10.1 urea nitrogen, blood 23 mg/dL 7-18 creatinine, serum 0.83 mg/dL 0.55-1.30 Lab Report: CBC W/DIFF - Hematology leukocyte count, blood 5.3 10^3/MM^3 10*3/mm3 4.6-10.2 leukocyte count, blood 5.1 10^3/MM^3 10*3/mm3 4.6-10.2 [...] % 11.6-14.8 platelet count 269 10^3/MM^3 10*3/mm3 446-078 0542/11/18 leukocyte count, blood 8.5 10^3/MM^3 10*3/mm3 4.6-10.2 [...] % 11.6-14.8 platelet count 143 10^3/MM^3 10*3/mm3 031-652 4094/11/25 leukocyte count, blood 2.1 10^3/MM^3 10*3/mm3 4.6-10.2 hematocrit, blood 37.1 % 36.0-46.0 mean corpuscular volume, RBC 90 fL 80-97 mean corpuscular hemoglobin, RBC 30.8 pg 27.0-31.2 mean corpuscular hemoglobin concentration, RBC 34.1 G/DL % 31.8- 35.4 red blood cell distribution width 14.6 % 11.6-14.8 platelet count 139 10^3/MM^3 10*3/mm3 297-422 3995/12/02 leukocyte count, blood 6.7 10^3/MM^3 10*3/mm3 4.6-10.2 [...] % 11.6-14.8 platelet count 258 10^3/MM^3 10*3/mm3 784-610 9973/11/25 neutrophils as percent of blood leukocytes 20.0 % 42.2-75.2 monocytes as percent of blood leukocytes 20.9 % 1.7-9.3 lymphocytes as percent of blood leukocytes 42.9 % 20.5-51.1 erythrocyte (RBC) count 4.11 10^6/MM^3 10*6/mm3 4.04-5.48 hemoglobin, blood 12.6 g/dL 12.0-16.0 neutrophils as percent of blood leukocytes 67.9 [...] % 11.6-14.8 platelet count 240 10^3/MM^3 10*3/mm3 470-580 4258/12/16 leukocyte count, blood 3.2 10^3/MM^3 10*3/mm3 4.6-10.2 [...] % 11.6-14.8 platelet count 158 10^3/MM^3 10*3/mm3 974-504 1382/12/18 leukocyte count, blood 8.8 10^3/MM^3 10*3/mm3 4.6-10.2 [...] % 11.6-14.8 platelet count 207 10^3/MM^3 10*3/mm3 002-615 1845/12/23 leukocyte count, blood 6.2 10^3/MM^3 10*3/mm3 4.6-10.2 [...] % 11.6-14.8 platelet count 183 10^3/MM^3 10*3/mm3 042-173 1226/12/30 leukocyte count, blood 5.2 10^3/MM^3 10*3/mm3 4.6-10.2 [...] Panel - Chemistry sodium, serum 140 mmol/L 644-356 9868/01/06 carbon dioxide, venous blood 27.2 mmol/L 21.0-32.0 potassium, serum 4.1 mmol/L 3.5-5.2 chloride, serum 105 mmol/L 98-107 blood glucose 70 mg/dL 65-110 urea nitrogen, blood 25 mg/dL 7-18 creatinine, serum 0.90 mg/dL 0.55-1.30 alanine aminotransferase (SGPT), serum 28 U/L aspartate aminotransferase (SGOT), serum 20 U/L 15-37 calcium, serum 8.9 mg/dL 8.5-10.1 bilirubin, serum, total 0.40 mg/dL 0.00-1.00 sodium, serum 140 mmol/L 437-629 4719/01/13 carbon dioxide, venous blood 26.4 mmol/L 21.0-32.0 potassium, serum 4.2 mmol/L 3.5-5.2 chloride, serum 104 mmol/L 98-107 blood glucose 101 mg/dL 65-110 urea nitrogen, blood 18 mg/dL 7-18 creatinine, serum 0.80 mg/dL 0.55-1.30 alanine aminotransferase (SGPT), serum 28 U/L aspartate aminotransferase (SGOT), serum 24 U/L 15-37 calcium, serum 8.7 mg/dL 8.5-10.1 bilirubin, serum, total 0.50 mg/dL 0.00-1.00 sodium, serum 142 mmol/L 162-069 3027/02/04 carbon dioxide, venous blood 24.9 mmol/L 21.0-32.0 potassium, serum 4.1 mmol/L 3.5-5.2 chloride, serum 106 mmol/L 98-107 blood glucose 103 mg/dL 65-110 urea nitrogen, blood 25 mg/dL 7-18 creatinine, serum 0.83 mg/dL 0.55-1.30 alanine aminotransferase (SGPT), serum 38 U/L 02/04 aspartate aminotransferase (SGOT), serum 26 U/L 15-37 [...] % 11.6-14.8 platelet count 297 10^3/MM^3 10*3/mm3 737-350 5232/02/04 leukocyte count, blood 4.2 10^3/MM^3 10*3/mm3 4.6-10.2 [...] % 11.6-14.8 platelet count 271 10^3/MM^3 10*3/mm3 720-666 7426/01/13 leukocyte count, blood 5.2 10^3/MM^3 10*3/mm3 4.6-10.2 [...] count 289 10^3/MM^3 10*3/mm3 142-424 Lab Report: Comp. Metabolic Panel - Chemistry sodium, serum 139 mmol/L 014-052 9585/12/30 carbon dioxide, venous blood 28.2 mmol/L 21.0-32.0 potassium, serum 3.9 mmol/L 3.5-5.2 chloride, serum 105 mmol/L 98-107 blood glucose 91 mg/dL 65-110 urea nitrogen, blood 17 mg/dL 7-18 creatinine, serum 0.81 mg/dL 0.55-1.30 alanine aminotransferase (SGPT), serum 29 U/L aspartate aminotransferase (SGOT), serum 22 U/L 15-37 calcium, serum 8.8 mg/dL 8.5-10.1 bilirubin, serum, total 0.50 mg/dL 0.00-1.00 sodium, serum 143 mmol/L 353-312 7802/12/23 carbon dioxide, venous blood 24.6 mmol/L 21.0-32.0 potassium, serum 4.1 mmol/L 3.5-5.2 chloride, serum 107 mmol/L 98-107 blood glucose 98 mg/dL 65-110 urea nitrogen, blood 22 mg/dL 7-18 creatinine, serum 0.77 mg/dL 0.55-1.30 alanine aminotransferase (SGPT), serum 28 U/L aspartate aminotransferase (SGOT), serum 20 U/L 15-37 calcium, serum 8.6 mg/dL 8.5-10.1 bilirubin, serum, total 0.30 mg/dL 0.00-1.00 sodium, serum 142 mmol/L 260-116 7239/12/09 carbon dioxide, venous blood 28.5 mmol/L 21.0-32.0 potassium, serum 5.0 mmol/L 3.5-5.2 chloride, serum 109 mmol/L 98-107 blood glucose 91 mg/dL 65-110 urea nitrogen, blood 27 mg/dL 7-18 creatinine, serum 0.88 mg/dL 0.55-1.30 alanine aminotransferase (SGPT), serum 31 U/L /09 aspartate aminotransferase (SGOT), serum 18 U/L 15-37 calcium, serum 8.9 mg/dL 8.5-10.1 bilirubin, serum, total 0.40 mg/dL 0.00-1.00 sodium, serum 140 mmol/L 241-419 4324/12/16 carbon dioxide, venous blood 25.4 mmol/L 21.0-32.0 potassium, serum 4.1 mmol/L 3.5-5.2 chloride, serum 104 mmol/L 98-107 carbon dioxide, venous blood 25.9 mmol/L 21.0-32.0 potassium, serum 4.7 mmol/L 3.5-5.2 chloride, serum 106 mmol/L 98-107 blood glucose 78 mg/dL 65-110 urea nitrogen, blood 24 mg/dL 7- blood glucose 110 mg/dL 65-110 alanine aminotransferase (SGPT), serum 31 U/L aspartate aminotransferase (SGOT), serum 20 U/L - calcium, serum 8.7 mg/dL 8.5-10.1 bilirubin, serum, total 0.30 mg/dL 0.00-1.00 sodium, serum 141 mmol/L 158-457 0682/11/25 calcium, serum 8.5 mg/dL 8.5-10.1 aspartate aminotransferase (SGOT), serum 22 U/L - alanine aminotransferase (SGPT), serum 40 U/L creatinine, serum 0.79 mg/dL 0.55-1.30 urea nitrogen, blood 21 mg/dL 7- creatinine, serum 0.75 mg/dL 0.55-1.30 sodium, serum 141 mmol/L 757-941 1868/11/18 carbon dioxide, venous blood 26.2 mmol/L 21.0-32.0 potassium, serum 4.4 mmol/L 3.5-5.2 chloride, serum 106 mmol/L 98-107 blood glucose 102 mg/dL 65-110 urea nitrogen, blood 24 mg/dL 7-18 creatinine, serum 0.77 mg/dL 0.55-1.30 alanine aminotransferase (SGPT), serum 30 U/L 12-78 aspartate aminotransferase (SGOT), serum 15 U/L 15-37 calcium, serum 8.3 mg/dL 8.5-10.1 bilirubin, serum, total 0.30 mg/dL 0.00-1.00 bilirubin, serum, total 0.80 mg/dL 0.00-1.00 blood glucose 94 mg/dL 65-110 chloride, serum 105 mmol/L 98-107 potassium, serum 4.7 mmol/L 3.5-5.2 carbon dioxide, venous blood 27.9 mmol/L 21.0-32.0 sodium, serum 139 mmol/L 910-222 0283/12/16 urea nitrogen, blood 24 mg/dL 7-18 creatinine, serum 0.87 mg/dL 0.55-1.30 alanine aminotransferase (SGPT), serum 35 U/L -78 aspartate aminotransferase (SGOT), serum 21 U/L 15-37 calcium, serum 8.4 mg/dL 8.5-10.1 bilirubin, serum, total 0.50 mg/dL 0.00-1.00 Lab Report: Lipid Panel, Thyroid Stimulating Hormone (L) - Chemistry cholesterol, serum 177 mg/dL 758-673 5908/10/31 triglyceride, serum, fasting 64 mg/dL 30-200 HDL cholesterol, serum 77 mg/dL 32-96 LDL cholesterol, serum 87 mg/dL 0-130 TSH 2.13 m[iU]/mL 0.36-3.74 Lab Report: VITAMIN D, 25-HYDROXY/14956 - Chemistry vitamin D 25-hydroxy, serum 25 ng/mL 30-100 Encounters Code Encounter Date Provider Facility CPT-12724 Level 4 Est. Patient 17:31:07 CDT Marta Viramontes [facility] CPT-31293 Level 3 Est. Patient 05:11:40 CDT Rikki GRANADOS [facility] CPT-74413 Level 2 Est. Patient 14:30:43 RESERVATIONS SALES AGENT Marta Viramontes [facility] CPT-99922 Level 4 Est. Patient 09:14:36 RESERVATIONS SALES AGENT Rikki GRANADOS [facility] CPT-59036 Level 2 Est. Patient 09:07:32 CDT Marta Viramontes [facility] CPT-11010 Level 4 Est. Patient 11:55:00 CDT Rikki GRANADOS [facility] CPT-99333 Level 3 Est. Patient 13:25:16 CDT Jennifer Chun MD PhD [facility] CPT-87236 Level 3 Est. Patient 17:31:22 CDT Solomon Alamo MD [facility] CPT-31367 Level 3 Est. Patient 08:02:14 CDT Solomon Alamo MD [facility] CPT-10555 Level 3 Est. Patient 17:23:53 CDT Rikki GRANADOS [facility] CPT-33446 Level 3 Est. Patient 11:22:41 CDT Darryn Hearn [facility] Procedures Code Procedure Name Date Entry Date Standard Description CPT-81794 BMP - LAB USE ONLY 10:32:33 [employer]ATIONS SALES AGENT CPT-07384 Venipuncture Draw Fee 10:32:33 RES[employer]ATIONS SALES AGENT CPT-31411 Magnesium - LAB USE ONLY 09:54:30 CDT CPT-57956 TSH - LAB USE ONLY 09:54:30 CDT CPT-60218 Lipid - LAB USE ONLY 09:54:30 CDT CPT-57086 Venipuncture Draw Fee 09:54:29 CDT CPT-99680 Venipuncture Draw Fee 18:27:04 CDT CPT-39278 Chest 2V Frontal and Lat 10:57:00 [employer]ATIONS SALES AGENT CPT-90814 Venipuncture Draw Fee 10:56:59 RESERVATIONS SALES AGENT CPT-21962 Venipuncture Draw Fee 09:22:28 RESERVATIONS SALES AGENT CPT-19253 Chest 2V Frontal and Lat 09:22:27 RESERVATIONS SALES AGENT CPT-I/D I/D Abscess 09:43:13 CDT CPT-28469 Venipuncture Draw Fee 08:16:46 RESERVATIONS SALES AGENT CPT-72691 Venipuncture Draw Fee 08:18:55 RESERVATIONS SALES AGENT CPT-93107 Venipuncture Draw Fee 08:31:18 RESERVATIONS SALES AGENT CPT-35440 Venipuncture Draw Fee 11:42:52 RESERVATIONS SALES AGENT CPT-83040 Venipuncture Draw Fee 13:26:37 RESERVATIONS SALES AGENT CPT-74170 Venipuncture Draw Fee 09:23:38 RES[employer]ATIONS SALES AGENT CPT-000 Give Appropriate Tetanus Booster 10:23:50 CDT CPT-43920 Bone Density 08:28:45 CDT CPT-14200 Bone Density 11:35:15 CDT CPT-PV Prev. Care Visit 12:19:00 CDT CPT-32151 Venipuncture Draw Fee 15:02:58 CDT
--- OUTSIDE RECORDS SUMMARY | 2018-01-19 07:20 | XMS REPORT | Clinical Summary ---
Author Author Admin, E Organization [facility] Address Unknown Phone Unavailable Allergies, Adverse Reactions, Alerts Allergy Name Reaction Description Start Date Severity Status Provider SULFA facial swelling Critical Active Jocelyne Naff SURGICAL ASSISTANT Conditions or Problems Problem Name Problem Code Onset Date Status Entry Date Provider Comment Standard Description Annotate G E R D 530.81 Active Jocelyne Naff SURGICAL ASSISTANT Esophageal reflux FH COLON CANCER V16.0 Active Jocelyne Naff SURGICAL ASSISTANT Family history of malignant neoplasm of [...] Take one four times a day CEPHALEXIN 42351872242 No Longer Active Marta Viramontes APRN Active BIOTIN 1000 MCG ORAL TABS Take one daily BIOTIN 50132351085 Active Rikki Daryn PA Active VITAMIN C 500 MG ORAL CAPS Take one daily ASCORBIC ACID 87488865418 Active Rikki Daryn PA Active BENZONATATE 200 MG ORAL CAPS One capsule tid. BENZONATATE 80193620464 No Longer Active Rikki Harms PA Active FLONASE ALLERGY RELIEF 50 MCG/ACT NASAL SUSP spray twice in each nostril one time daily FLUTICASONE PROPIONATE 37975206275 No Longer Active Rikki Harms PA Active TUSSIONEX PENNKINETIC ER 10-8 MG/5ML LQCR 5ml po q12hr PRN Cough HYDROCOD POLST-CHLORPHEN POLST 66541862194 No Longer Active Rikki Harms PA Active NIACIN ER 500 MG ORAL CR-TABS Take one twice daily NIACIN 42976564105 Active Rikki Harms PA Active ALBUTEROL SULFATE 0.083 % NEBU SOLN one vial per nebulizer every 4-6 hours as needed ALBUTEROL SULFATE 37631180393 No Longer Active Rikki Harms DARWIN Active MEDROL (CAROLYN) 4 MG TABS 6 tabs on day 1, 5 tabs on day 2, 4 tabs on day 3, 3 tabs on day 4, 2 tabs on day 5, 1 tab on day 6 METHYLPREDNISOLONE 79287764202 No Longer Active Rikki Harms PA Active LEVAQUIN 750 MG TABS 1 po qd x 7 days LEVOFLOXACIN 67971282723 No Longer Active Rikki Harms PA Active LEVAQUIN 500 MG ORAL TABS Take one tablet daily LEVOFLOXACIN 30945203411 No Longer Active Rikki Harms PA Active PROAIR HFA 108 (90 BASE) MCG/ACT AERS 2 puffs four times a day as needed 2014 ALBUTEROL SULFATE 43993803153 Active Marta Yokum CHILD WELFARE ASSISTANT Active LEVAQUIN 500 MG TAB 1 tablet by mouth daily LEVOFLOXACIN 05736012857 No Longer Active Marta Yokum CHILD WELFARE ASSISTANT Active CHERATUSSIN AC 100-10 MG/5ML SYRP 1 tsp by mouth every 4 hours as needed for cough GUAIFENESIN-CODEINE 74035782519 No Longer Active Rikki Harms PA Active MUPIROCIN 2 % EXT OINT Use in each nostril in am and pm MUPIROCIN 09274930651 No Longer Active Rikki Harms PA Active DOXYCYCLINE HYCLATE 100 MG ORAL CAPS Take one bid DOXYCYCLINE HYCLATE 37842998409 No Longer Active Rikki Harms PA Active CLARITIN 10 MG TABS 1prn LORATADINE 97268147040 No Longer Active Jocelyne Naff SURGICAL ASSISTANT Active ASPIRIN 81 MG TABS 1qd ASPIRIN 21214965449 No Longer Active Jocelyne Naff SURGICAL ASSISTANT Active DOXYCYCLINE HYCLATE 100 MG CAP 1 cap by mouth twice daily DOXYCYCLINE HYCLATE 64093665067 No Longer Active Rikki Harms PA Active VITAMIN D3 67313 UNIT CAPS 1 pill by mouth weekly, for vitamin D deficiency CHOLECALCIFEROL 17406053592 No Longer Active Jennifer Chun MD PhD Active ANASTROZOLE 1 MG ORAL TABS Take one by mouth daily ANASTROZOLE 17773321564 Active Jennifer Chun MD PhD Active ZITHROMAX 250 MG TAB 2 po today, then 1 po q days 2-5 AZITHROMYCIN 58744580338 No Longer Active Rikki Harms PA Active MECLIZINE HCL 25 MG TABS 1 prn MECLIZINE HCL 06791485062 No Longer Active Solomon Alamo MD Active CHERATUSSIN AC SYRP prn as directed GUAIFENESIN- CODEINE SYRP 86868174896 No Longer Active Rikki Harms PA Active MULTIVITAMINS TABS 1qd MULTIPLE VITAMIN 03042003629 No Longer Active Rikki Harms PA Active OMEPRAZOLE 20 MG CPDR 1 PO Q D OMEPRAZOLE 51272460884 Active Rikki Harms PA Active ZITHROMAX Z-CAROLYN 250 MG TABS 2x1day,0l0cssx AZITHROMYCIN 14143323832 No Longer Active Jocelyne Lovell SURGICAL ASSISTANT Active MULTIVITAMINS TABS 1qd MULTIVITAMINS TABS MULTIPLE VITAMIN Inactive CHERATUSSIN AC SYRP prn as directed CHERATUSSIN AC SYRP GUAIFENESIN-CODEINE SYRP Inactive MECLIZINE HCL 25 MG TABS 1 prn MECLIZINE HCL 25 MG TABS 830430 MECLIZINE HCL Inactive ASPIRIN 81 MG TABS 1qd ASPIRIN 81 MG TABS ASPIRIN Inactive CLARITIN 10 MG TABS 1prn CLARITIN 10 MG TABS 071809 LORATADINE Inactive DOXYCYCLINE HYCLATE 100 MG ORAL CAPS Take one bid DOXYCYCLINE HYCLATE 100 MG ORAL CAPS 5989602 DOXYCYCLINE HYCLATE Inactive MUPIROCIN 2 % EXT OINT Use in each nostril in am and pm MUPIROCIN 2 % EXT OINT 266009 MUPIROCIN Inactive CHERATUSSIN AC 100-10 MG/5ML SYRP 1 tsp by mouth every 4 hours as needed for cough CHERATUSSIN AC 100-10 MG/5ML SYRP 681404 GUAIFENESIN-CODEINE Inactive LEVAQUIN 500 MG TAB 1 tablet by mouth daily LEVAQUIN 500 MG TAB 982575 LEVOFLOXACIN Inactive LEVAQUIN 500 MG ORAL TABS Take one tablet daily LEVAQUIN 500 MG ORAL TABS 816968 LEVOFLOXACIN Inactive LEVAQUIN 750 MG TABS 1 po qd x 7 days LEVAQUIN 750 MG TABS 545808 LEVOFLOXACIN Inactive ALBUTEROL SULFATE 0.083 % NEBU SOLN one vial per nebulizer every 4-6 hours as needed ALBUTEROL SULFATE 0.083 % NEBU SOLN 106329 ALBUTEROL SULFATE Inactive TUSSIONEX PENNKINETIC ER 10-8 MG/5ML LQCR 5ml po q12hr PRN Cough TUSSIONEX PENNKINETIC ER 10-8 MG/5ML LQCR HYDROCOD POLST- CHLORPHEN POLST Inactive FLONASE ALLERGY RELIEF 50 MCG/ACT NASAL SUSP spray twice in each nostril one time daily FLONASE ALLERGY RELIEF 50 MCG/ACT NASAL SUSP 0691245 FLUTICASONE PROPIONATE Inactive BENZONATATE 200 MG ORAL CAPS One capsule tid. BENZONATATE 200 MG ORAL CAPS 766783 BENZONATATE Inactive CEPHALEXIN 500 MG ORAL CAPS Take one four times a day CEPHALEXIN 500 MG ORAL CAPS 257213 CEPHALEXIN Inactive ZITHROMAX Z-CAROLYN 250 MG TABS 2x1day,9h1sqew ZITHROMAX Z-CAROLYN 250 MG TABS 6125066 AZITHROMYCIN Inactive ZITHROMAX 250 MG TAB 2 po today, then 1 po q days 2-5 ZITHROMAX 250 MG TAB 2382481 AZITHROMYCIN Inactive VITAMIN D3 11355 UNIT CAPS 1 pill by mouth weekly, for vitamin D deficiency VITAMIN D3 91429 UNIT CAPS CHOLECALCIFEROL Inactive DOXYCYCLINE HYCLATE 100 MG CAP 1 cap by mouth twice daily DOXYCYCLINE HYCLATE 100 MG CAP 0952162 DOXYCYCLINE HYCLATE Inactive MEDROL (CAROLYN) 4 MG TABS 6 tabs on day 1, 5 tabs on day 2, 4 tabs on day 3, 3 tabs on day 4, 2 tabs on day 5, 1 tab on day 6 MEDROL ( CAROLYN) 4 MG TABS 056645 METHYLPREDNISOLONE Inactive Vital Signs Date Name Value [...] Panel - Chemistry sodium, serum 142 mmol/L 215-682 8416/07/25 potassium, serum 4.0 mmol/L 3.5-5.2 chloride, serum [...] % 11.6-14.8 platelet count 269 10^3/MM^3 10*3/mm3 939-932 6582/12/16 leukocyte count, blood 3.2 10^3/MM^3 10*3/mm3 4.6-10.2 [...] % 11.6-14.8 platelet count 158 10^3/MM^3 10*3/mm3 254-411 3369/12/18 leukocyte count, blood 8.8 10^3/MM^3 10*3/mm3 4.6-10.2 [...] % 11.6-14.8 platelet count 207 10^3/MM^3 10*3/mm3 658-116 9034/12/23 leukocyte count, blood 6.2 10^3/MM^3 10*3/mm3 4.6-10.2 [...] % 11.6-14.8 platelet count 183 10^3/MM^3 10*3/mm3 781-269 4191/12/30 leukocyte count, blood 5.2 10^3/MM^3 10*3/mm3 4.6-10.2 [...] % 11.6-14.8 platelet count 200 10^3/MM^3 10*3/mm3 965-734 2193/11/11 leukocyte count, blood 2.0 10^3/MM^3 10*3/mm3 4.6-10.2 [...] % 11.6-14.8 platelet count 203 10^3/MM^3 10*3/mm3 455-872 1787/11/18 leukocyte count, blood 8.5 10^3/MM^3 10*3/mm3 4.6-10.2 [...] % 11.6-14.8 platelet count 143 10^3/MM^3 10*3/mm3 945-928 4900/11/25 leukocyte count, blood 2.1 10^3/MM^3 10*3/mm3 4.6-10.2 [...] % 11.6-14.8 platelet count 139 10^3/MM^3 10*3/mm3 318-535 6593/12/02 leukocyte count, blood 6.7 10^3/MM^3 10*3/mm3 4.6-10.2 [...] % 11.6-14.8 platelet count 258 10^3/MM^3 10*3/mm3 807-239 8463/12/09 leukocyte count, blood 5.3 10^3/MM^3 10*3/mm3 4.6-10.2 [...] Panel - Chemistry sodium, serum 138 mmol/L 843-667 2344/11/04 carbon dioxide, venous blood 27.7 mmol/L 21.0-32.0 potassium, serum 4.9 mmol/L 3.5-5.2 chloride, serum 104 mmol/L 98-107 blood glucose 92 mg/dL 65-110 urea nitrogen, blood 24 mg/dL 7-18 creatinine, serum 0.95 mg/dL 0.55-1.30 alanine aminotransferase (SGPT), serum 34 U/L -78 aspartate aminotransferase (SGOT), serum 23 U/L 15-37 calcium, serum 8.9 mg/dL 8.5-10.1 bilirubin, serum, total 0.70 mg/dL 0.00-1.00 sodium, serum 140 mmol/L 884-693 8643/01/06 carbon dioxide, venous blood 27.2 mmol/L 21.0-32.0 potassium, serum 4.1 mmol/L 3.5-5.2 chloride, serum 105 mmol/L 98-107 blood glucose 70 mg/dL 65-110 urea nitrogen, blood 25 mg/dL 7-18 creatinine, serum 0.90 mg/dL 0.55-1.30 alanine aminotransferase (SGPT), serum 28 U/L -78 aspartate aminotransferase (SGOT), serum 20 U/L 15-37 calcium, serum 8.9 mg/dL 8.5-10.1 bilirubin, serum, total 0.40 mg/dL 0.00-1.00 sodium, serum 140 mmol/L 896-244 6767/01/13 carbon dioxide, venous blood 26.4 mmol/L 21.0-32.0 potassium, serum 4.2 mmol/L 3.5-5.2 chloride, serum 104 mmol/L 98-107 blood glucose 101 mg/dL 65-110 urea nitrogen, blood 18 mg/dL 7-18 creatinine, serum 0.80 mg/dL 0.55-1.30 alanine aminotransferase (SGPT), serum 28 U/L -78 aspartate aminotransferase (SGOT), serum 24 U/L 15-37 calcium, serum 8.7 mg/dL 8.5-10.1 bilirubin, serum, total 0.50 mg/dL 0.00-1.00 sodium, serum 142 mmol/L 309-912 3591/02/04 carbon dioxide, venous blood 24.9 mmol/L 21.0-32.0 [...] % 11.6-14.8 platelet count 297 10^3/MM^3 10*3/mm3 875-875 2178/02/04 leukocyte count, blood 4.2 10^3/MM^3 10*3/mm3 4.6-10.2 [...] % 11.6-14.8 platelet count 271 10^3/MM^3 10*3/mm3 696-434 0810/01/13 leukocyte count, blood 5.2 10^3/MM^3 10*3/mm3 4.6-10.2 [...] % 11.6-14.8 platelet count 289 10^3/MM^3 10*3/mm3 721-121 1266/11/04 leukocyte count, blood 3.8 10^3/MM^3 10*3/mm3 4.6-10.2 [...] Panel - Chemistry sodium, serum 141 mmol/L 772-914 2997/11/11 carbon dioxide, venous blood 26.8 mmol/L 21.0-32.0 potassium, serum 4.2 mmol/L 3.5-5.2 chloride, serum 106 mmol/L 98-107 blood glucose 95 mg/dL 65-110 urea nitrogen, blood 18 mg/dL 7-18 creatinine, serum 0.70 mg/dL 0.55-1.30 alanine aminotransferase (SGPT), serum 33 U/L -78 aspartate aminotransferase (SGOT), serum 22 U/L 15-37 calcium, serum 8.5 mg/dL 8.5-10.1 bilirubin, serum, total 0.30 mg/dL 0.00-1.00 sodium, serum 141 mmol/L 904-208 2542/11/18 carbon dioxide, venous blood 26.2 mmol/L 21.0-32.0 potassium, serum 4.4 mmol/L 3.5-5.2 chloride, serum 106 mmol/L 98-107 blood glucose 102 mg/dL 65-110 urea nitrogen, blood 24 mg/dL 7-18 creatinine, serum 0.77 mg/dL 0.55-1.30 alanine aminotransferase (SGPT), serum 30 U/L -78 aspartate aminotransferase (SGOT), serum 15 U/L 15-37 calcium, serum 8.3 mg/dL 8.5-10.1 bilirubin, serum, total 0.30 mg/dL 0.00-1.00 sodium, serum 139 mmol/L 140-778 6602/11/25 carbon dioxide, venous blood 27.9 mmol/L 21.0-32.0 potassium, serum 4.7 mmol/L 3.5-5.2 chloride, serum 105 mmol/L 98-107 blood glucose 94 mg/dL 65-110 urea nitrogen, blood 21 mg/dL 7-18 creatinine, serum 0.79 mg/dL 0.55-1.30 alanine aminotransferase (SGPT), serum 40 U/L -78 aspartate aminotransferase (SGOT), serum 22 U/L 15-37 calcium, serum 8.5 mg/dL 8.5-10.1 bilirubin, serum, total 0.80 mg/dL 0.00-1.00 sodium, serum 142 mmol/L 616-709 1011/12/09 carbon dioxide, venous blood 28.5 mmol/L 21.0-32.0 potassium, serum 5.0 mmol/L 3.5-5.2 chloride, serum 109 mmol/L 98-107 blood glucose 91 mg/dL 65-110 urea nitrogen, blood 27 mg/dL 7-18 creatinine, serum 0.88 mg/dL 0.55-1.30 alanine aminotransferase (SGPT), serum 31 U/L 78 aspartate aminotransferase (SGOT), serum 18 U/L 15-37 calcium, serum 8.9 mg/dL 8.5-10.1 bilirubin, serum, total 0.40 mg/dL 0.00-1.00 sodium, serum 140 mmol/L 779-185 6890/12/16 carbon dioxide, venous blood 25.4 mmol/L 21.0-32.0 potassium, serum 4.1 mmol/L 3.5-5.2 chloride, serum 104 mmol/L 98-107 blood glucose 110 mg/dL 65-110 urea nitrogen, blood 24 mg/dL 7-18 creatinine, serum 0.87 mg/dL 0.55-1.30 alanine aminotransferase (SGPT), serum 35 U/L aspartate aminotransferase (SGOT), serum 21 U/L 15-37 calcium, serum 8.4 mg/dL 8.5-10.1 bilirubin, serum, total 0.50 mg/dL 0.00-1.00 sodium, serum 141 mmol/L 873-302 0511/12/02 carbon dioxide, venous blood 25.9 mmol/L 21.0-32.0 potassium, serum 4.7 mmol/L 3.5-5.2 chloride, serum 106 mmol/L 98-107 blood glucose 78 mg/dL 65-110 urea nitrogen, blood 24 mg/dL 7-18 creatinine, serum 0.75 mg/dL 0.55-1.30 alanine aminotransferase (SGPT), serum 31 U/L aspartate aminotransferase (SGOT), serum 20 U/L - calcium, serum 8.7 mg/dL 8.5-10.1 bilirubin, serum, total 0.30 mg/dL 0.00-1.00 sodium, serum 139 mmol/L 724-995 7648/12/30 carbon dioxide, venous blood 28.2 mmol/L 21.0-32.0 potassium, serum 3.9 mmol/L 3.5-5.2 chloride, serum 105 mmol/L 98-107 blood glucose 91 mg/dL 65-110 urea nitrogen, blood 17 mg/dL 7-18 creatinine, serum 0.81 mg/dL 0.55-1.30 alanine aminotransferase (SGPT), serum 29 U/L aspartate aminotransferase (SGOT), serum 22 U/L - calcium, serum 8.8 mg/dL 8.5-10.1 bilirubin, serum, total 0.50 mg/dL 0.00-1.00 sodium, serum 143 mmol/L 445-664 9439/12/23 carbon dioxide, venous blood 24.6 mmol/L 21.0-32.0 [...] 0.00-1.00 Encounters Code Encounter Date Provider Facility CPT-16632 Level 4 Est. Patient 17:31:07 CDT Matra Viramontes [facility]-72033 Level 3 Est. Patient 05:11:40 CDT Rikki GRANADOS [facility] CPT-14504 Level 2 Est. Patient 14:30:43 PRODUCTION TECHNOLOGIST Marta Viramontes [facility] CPT-49710 Level 4 Est. Patient 09:14:36 PRODUCTION TECHNOLOGIST Rikki GRANADOS [facility] CPT-20886 Level 2 Est. Patient 09:07:32 CDT Marta Viramontes [facility] CPT-45014 Level 4 Est. Patient 11:55:00 CDT Rikki GRANADOS [facility] CPT-21714 Level 3 Est. Patient 13:25:16 CDT Jennifer Chun MD PhD [facility] CPT-77688 Level 3 Est. Patient 17:31:22 CDT Solomon Alaom MD [facility]-83486 Level 3 Est. Patient 08:02:14 CDT Solomon Alamo MD [facility] CPT-32392 Level 3 Est. Patient 17:23:53 CDT Rikki Stearns [facility] CPT-93154 Level 3 Est. Patient 11:22:41 CDT Darryn Hearn [facility] Procedures Code Procedure Name Date Entry Date Standard Description CPT-07552 Magnesium - LAB USE ONLY 09:54:30 CDT CPT-89478 TSH - LAB USE ONLY 09:54:30 CDT CPT-43548 Lipid - LAB USE ONLY 09:54:30 CDT CPT-01094 Venipuncture Draw Fee 09:54:29 CDT CPT-01730 Venipuncture Draw Fee 18:27:04 CDT CPT-30285 Chest 2V Frontal and Lat 10:57:00 PRODUCTION TECHNOLOGIST CPT-13049 Venipuncture Draw Fee 10:56:59 PRODUCTION TECHNOLOGIST CPT-15304 Venipuncture Draw Fee 09:22:28 PRODUCTION TECHNOLOGIST CPT-94144 Chest 2V Frontal and Lat 09:22:27 PRODUCTION TECHNOLOGIST CPT-I/D I/D Abscess 09:43:13 CDT CPT-67122 Venipuncture Draw Fee 08:16:46 PRODUCTION TECHNOLOGIST CPT-75532 Venipuncture Draw Fee 08:18:55 PRODUCTION TECHNOLOGIST CPT-13358 Venipuncture Draw Fee 08:31:18 PRODUCTION TECHNOLOGIST CPT-53987 Venipuncture Draw Fee 11:42:52 PRODUCTION TECHNOLOGIST CPT-45405 Venipuncture Draw Fee 13:26:37 PRODUCTION TECHNOLOGIST CPT-10487 Venipuncture Draw Fee 09:23:38 PRODUCTION TECHNOLOGIST CPT-000 Give Appropriate Tetanus Booster 10:23:50 CDT CPT-81730 Bone Density 08:28:45 CDT CPT-68481 Bone Density 11:35:15 CDT CPT-PV Prev. Care Visit 12:19:00 CDT CPT-75864 Venipuncture Draw Fee 15:02:58 CDT
[2018-01-19] MEDS ORDERED: BUPIVACAINE 0.25% 30 ML (SENSORCAINE) VIAL ONE (07:21)
--- OUTSIDE RECORDS SUMMARY | 2018-01-19 07:21 | XMS REPORT | Clinical Summary ---
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 Family history of malignant neoplasm of gastrointestinal [...] unspecified Routine gynecological examination V72.31 Active Jennifer hCun MD PhD Routine gynecological examination Postmenopausal status [...] unspecified sites Rash 782.1 Active Marta Viramontes HOT SAW OPERATOR Rash and other nonspecific skin eruption Adenocarcinoma, [...] 5, 1 tab on day 6 METHYLPREDNISOLONE 68924117843 No Longer Active Rikki GRANADOS Active ALBUTEROL SULFATE 0.083 % NEBU SOLN one vial per nebulizer every 4-6 hours as needed ALBUTEROL SULFATE 95108096425 Active Rikki Harms PA Active LEVAQUIN 750 MG TABS 1 po qd x 7 days LEVOFLOXACIN 18440268319 No Longer Active Rikki Harms PA Active LEVAQUIN 500 MG ORAL TABS Take one tablet daily LEVOFLOXACIN 16322135515 No Longer Active Rikki Harms PA Active PROAIR HFA 108 (90 BASE) MCG/ACT AERS 2 puffs four times a day as needed 2014 ALBUTEROL SULFATE 97376189383 Active Marta Yokum HOT SAW OPERATOR Active TUSSIONEX PENNKINETIC ER 10-8 MG/5ML LQCR 5ml po q12hr PRN Cough HYDROCOD POLST-CHLORPHEN POLST 82082276086 Active Rikki Harms PA Active FLONASE ALLERGY RELIEF 50 MCG/ACT NASAL SUSP spray twice in each nostril one time daily FLUTICASONE PROPIONATE 88473774441 Active Marta Yokum HOT SAW OPERATOR Active LEVAQUIN 500 MG TAB 1 tablet by mouth daily LEVOFLOXACIN 58561284555 No Longer Active Marta Yokum HOT SAW OPERATOR Active BENZONATATE 200 MG ORAL CAPS One capsule tid. BENZONATATE 08288715407 Active Marta Yokum HOT SAW OPERATOR Active CHERATUSSIN AC 100-10 MG/5ML SYRP 1 tsp by mouth every 4 hours as needed for cough GUAIFENESIN-CODEINE 06070233008 No Longer Active Rikki Harms PA Active MUPIROCIN 2 % EXT OINT Use in each nostril in am and pm MUPIROCIN 11544461706 No Longer Active Rikki Harms PA Active DOXYCYCLINE HYCLATE 100 MG ORAL CAPS Take one bid DOXYCYCLINE HYCLATE 86544601540 No Longer Active Rikki Harms PA Active CLARITIN 10 MG TABS 1prn LORATADINE 25057418339 No Longer Active Jocelyne Naff TENNIS COACH Active ASPIRIN 81 MG TABS 1qd ASPIRIN 63922380746 No Longer Active Jocelyne Naff TENNIS COACH Active DOXYCYCLINE HYCLATE 100 MG CAP 1 cap by mouth twice daily DOXYCYCLINE HYCLATE 12685919493 No Longer Active Rikki Harms PA Active VITAMIN D3 57860 UNIT CAPS 1 pill by mouth weekly, for vitamin D deficiency CHOLECALCIFEROL 04284670024 No Longer Active Jennifer Chun MD PhD Active ANASTROZOLE 1 MG ORAL TABS Take one by mouth daily ANASTROZOLE 89788970646 Active Jennifer Chun MD PhD Active ZITHROMAX 250 MG TAB 2 po today, then 1 po q days 2-5 AZITHROMYCIN 65123439363 No Longer Active Rikki Harms PA Active MECLIZINE HCL 25 MG TABS 1 prn MECLIZINE HCL 49361011459 No Longer Active Solomon Alamo MD Active CHERATUSSIN AC SYRP prn as directed GUAIFENESIN- CODEINE SYRP 36767644413 No Longer Active Rikki Harms PA Active MULTIVITAMINS TABS 1qd MULTIPLE VITAMIN 28415523936 No Longer Active Rikki Harms PA Active OMEPRAZOLE 20 MG CPDR 1 PO Q D OMEPRAZOLE 32640041136 Active Rikki Harms PA Active ZITHROMAX Z-CAROLYN 250 MG TABS 2x1day,7k6iych AZITHROMYCIN 05185705369 No Longer Active Jocelyne Naff TENNIS COACH Active MULTIVITAMINS TABS 1qd MULTIVITAMINS TABS MULTIPLE VITAMIN Inactive CHERATUSSIN AC SYRP prn as directed CHERATUSSIN AC SYRP GUAIFENESIN-CODEINE SYRP Inactive MECLIZINE HCL 25 MG TABS 1 prn MECLIZINE HCL 25 MG TABS 959829 MECLIZINE HCL Inactive ASPIRIN 81 MG TABS 1qd ASPIRIN 81 MG TABS 378844 ASPIRIN Inactive CLARITIN 10 MG TABS 1prn CLARITIN 10 MG TABS 805240 LORATADINE Inactive DOXYCYCLINE HYCLATE 100 MG ORAL CAPS Take one bid DOXYCYCLINE HYCLATE 100 MG ORAL CAPS 9027965 DOXYCYCLINE HYCLATE Inactive MUPIROCIN 2 % EXT OINT Use in each nostril in am and pm MUPIROCIN 2 % EXT OINT 453900 MUPIROCIN Inactive CHERATUSSIN AC 100-10 MG/5ML SYRP 1 tsp by mouth every 4 hours as needed for cough CHERATUSSIN AC 100-10 MG/5ML SYRP 889279 GUAIFENESIN-CODEINE Inactive LEVAQUIN 500 MG TAB 1 tablet by mouth daily LEVAQUIN 500 MG TAB 470013 LEVOFLOXACIN Inactive LEVAQUIN 500 MG ORAL TABS Take one tablet daily LEVAQUIN 500 MG ORAL TABS 532635 LEVOFLOXACIN Inactive LEVAQUIN 750 MG TABS 1 po qd x 7 days LEVAQUIN 750 MG TABS 029682 LEVOFLOXACIN Inactive ZITHROMAX Z-CAROLYN 250 MG TABS 2x1day,4s2icsw ZITHROMAX Z-CAROLYN 250 MG TABS 9757363 AZITHROMYCIN Inactive ZITHROMAX 250 MG TAB 2 po today, then 1 po q days 2-5 ZITHROMAX 250 MG TAB 1085970 AZITHROMYCIN Inactive VITAMIN D3 88581 UNIT CAPS 1 pill by mouth weekly, for vitamin D deficiency VITAMIN D3 11165 UNIT CAPS CHOLECALCIFEROL Inactive DOXYCYCLINE HYCLATE 100 MG CAP 1 cap by mouth twice daily DOXYCYCLINE HYCLATE 100 MG CAP 5318778 DOXYCYCLINE HYCLATE Inactive MEDROL (CAROLYN) 4 MG [...] % 11.6-14.8 platelet count 143 10^3/MM^3 10*3/mm3 458-243 0464/11/25 leukocyte count, blood 2.1 10^3/MM^3 10*3/mm3 4.6-10.2 [...] % 11.6-14.8 platelet count 139 10^3/MM^3 10*3/mm3 768-780 9554/12/02 leukocyte count, blood 6.7 10^3/MM^3 10*3/mm3 4.6-10.2 [...] % 11.6-14.8 platelet count 258 10^3/MM^3 10*3/mm3 778-670 8720/12/09 leukocyte count, blood 5.3 10^3/MM^3 10*3/mm3 4.6-10.2 [...] % 11.6-14.8 platelet count 240 10^3/MM^3 10*3/mm3 855-443 4562/12/16 leukocyte count, blood 3.2 10^3/MM^3 10*3/mm3 4.6-10.2 [...] % 11.6-14.8 platelet count 158 10^3/MM^3 10*3/mm3 648-514 5415/12/18 leukocyte count, blood 8.8 10^3/MM^3 10*3/mm3 4.6-10.2 [...] % 11.6-14.8 platelet count 207 10^3/MM^3 10*3/mm3 829-036 9919/12/23 leukocyte count, blood 6.2 10^3/MM^3 10*3/mm3 4.6-10.2 [...] % 11.6-14.8 platelet count 183 10^3/MM^3 10*3/mm3 766-289 3752/11/11 leukocyte count, blood 2.0 10^3/MM^3 10*3/mm3 4.6-10.2 [...] % 11.6-14.8 platelet count 203 10^3/MM^3 10*3/mm3 915-307 8114/12/30 leukocyte count, blood 5.2 10^3/MM^3 10*3/mm3 4.6-10.2 [...] % 11.6-14.8 platelet count 200 10^3/MM^3 10*3/mm3 645-503 8278/03/02 leukocyte count, blood 5.1 10^3/MM^3 10*3/mm3 4.6-10.2 [...] Panel - Chemistry sodium, serum 142 mmol/L 386-910 8091/02/04 carbon dioxide, venous blood 24.9 mmol/L 21.0-32.0 potassium, serum 4.1 mmol/L 3.5-5.2 chloride, serum 106 mmol/L 98-107 blood glucose 103 mg/dL 65-110 urea nitrogen, blood 25 mg/dL 7-18 creatinine, serum 0.83 mg/dL 0.55-1.30 alanine aminotransferase (SGPT), serum 38 U/L 12-78 aspartate aminotransferase (SGOT), serum 26 U/L 15-37 calcium, serum 8.7 mg/dL 8.5-10.1 bilirubin, serum, total 0.30 mg/dL 0.00-1.00 sodium, serum 140 mmol/L 229-862 4470/01/13 carbon dioxide, venous blood 26.4 mmol/L 21.0-32.0 potassium, serum 4.2 mmol/L 3.5-5.2 chloride, serum 104 mmol/L 98-107 blood glucose 101 mg/dL 65-110 urea nitrogen, blood 18 mg/dL 7-18 creatinine, serum 0.80 mg/dL 0.55-1.30 alanine aminotransferase (SGPT), serum 28 U/L aspartate aminotransferase (SGOT), serum 24 U/L 15-37 calcium, serum 8.7 mg/dL 8.5-10.1 bilirubin, serum, total 0.50 mg/dL 0.00-1.00 sodium, serum 138 mmol/L 299-979 2714/11/04 carbon dioxide, venous blood 27.7 mmol/L 21.0-32.0 potassium, serum 4.9 mmol/L 3.5-5.2 chloride, serum 104 mmol/L 98-107 blood glucose 92 mg/dL 65-110 urea nitrogen, blood 24 mg/dL 7-18 creatinine, serum 0.95 mg/dL 0.55-1.30 alanine aminotransferase (SGPT), serum 34 U/L aspartate aminotransferase (SGOT), serum 23 U/L - calcium, serum 8.9 mg/dL 8.5-10.1 bilirubin, serum, total 0.70 mg/dL 0.00-1.00 sodium, serum 140 mmol/L 214-563 9757/01/06 carbon dioxide, venous blood 27.2 mmol/L 21.0-32.0 [...] % 11.6-14.8 platelet count 289 10^3/MM^3 10*3/mm3 012-066 9497/01/06 leukocyte count, blood 4.1 10^3/MM^3 10*3/mm3 4.6-10.2 [...] % 11.6-14.8 platelet count 297 10^3/MM^3 10*3/mm3 918-709 8344/02/04 leukocyte count, blood 4.2 10^3/MM^3 10*3/mm3 4.6-10.2 [...] % 11.6-14.8 platelet count 271 10^3/MM^3 10*3/mm3 044-327 0654/11/04 leukocyte count, blood 3.8 10^3/MM^3 10*3/mm3 4.6-10.2 [...] Panel - Chemistry sodium, serum 140 mmol/L 535-428 8280/07/13 potassium, serum 4.5 mmol/L 3.5-5.2 chloride, serum 106 mmol/L 98-107 carbon dioxide, venous blood 27.7 mmol/L 21.0-32.0 blood glucose 105 mg/dL 65-110 urea nitrogen, blood 14 mg/dL 7-18 creatinine, serum 0.90 mg/dL 0.60-1.30 alanine aminotransferase (SGPT), serum 29 U/L 12-78 aspartate aminotransferase (SGOT), serum 22 U/L 15-37 calcium, serum 9.4 mg/dL 8.5-10.1 bilirubin, serum, total 0.70 mg/dL 0.00-1.00 cholesterol, serum 160 mg/dL 765-021 1885/07/13 triglyceride, serum, fasting 63 mg/dL 30-200 HDL [...] Panel - Chemistry sodium, serum 141 mmol/L 258-694 2453/11/18 carbon dioxide, venous blood 26.2 mmol/L 21.0-32.0 potassium, serum 4.4 mmol/L 3.5-5.2 chloride, serum 106 mmol/L 98-107 blood glucose 102 mg/dL 65-110 urea nitrogen, blood 24 mg/dL 7-18 creatinine, serum 0.77 mg/dL 0.55-1.30 alanine aminotransferase (SGPT), serum 30 U/L 12-78 aspartate aminotransferase (SGOT), serum 15 U/L 15-37 calcium, serum 8.3 mg/dL 8.5-10.1 bilirubin, serum, total 0.30 mg/dL 0.00-1.00 sodium, serum 139 mmol/L 272-723 2868/11/25 carbon dioxide, venous blood 27.9 mmol/L 21.0-32.0 potassium, serum 4.7 mmol/L 3.5-5.2 chloride, serum 105 mmol/L 98-107 blood glucose 94 mg/dL 65-110 urea nitrogen, blood 21 mg/dL 7-18 creatinine, serum 0.79 mg/dL 0.55-1.30 alanine aminotransferase (SGPT), serum 40 U/L aspartate aminotransferase (SGOT), serum 22 U/L 15-37 calcium, serum 8.5 mg/dL 8.5-10.1 bilirubin, serum, total 0.80 mg/dL 0.00-1.00 sodium, serum 142 mmol/L 995-400 5748/12/09 carbon dioxide, venous blood 28.5 mmol/L 21.0-32.0 potassium, serum 5.0 mmol/L 3.5-5.2 chloride, serum 109 mmol/L 98-107 blood glucose 91 mg/dL 65-110 urea nitrogen, blood 27 mg/dL - creatinine, serum 0.88 mg/dL 0.55-1.30 alanine aminotransferase (SGPT), serum 31 U/L aspartate aminotransferase (SGOT), serum 18 U/L 15-37 calcium, serum 8.9 mg/dL 8.5-10.1 bilirubin, serum, total 0.40 mg/dL 0.00-1.00 sodium, serum 140 mmol/L 650-725 7584/12/16 carbon dioxide, venous blood 25.4 mmol/L 21.0-32.0 potassium, serum 4.1 mmol/L 3.5-5.2 chloride, serum 104 mmol/L 98-107 blood glucose 110 mg/dL 65-110 urea nitrogen, blood 24 mg/dL 7- creatinine, serum 0.87 mg/dL 0.55-1.30 alanine aminotransferase (SGPT), serum 35 U/L aspartate aminotransferase (SGOT), serum 21 U/L 15-37 calcium, serum 8.4 mg/dL 8.5-10.1 bilirubin, serum, total 0.50 mg/dL 0.00-1.00 sodium, serum 141 mmol/L 099-719 8334/12/02 carbon dioxide, venous blood 25.9 mmol/L 21.0-32.0 potassium, serum 4.7 mmol/L 3.5-5.2 chloride, serum 106 mmol/L 98-107 blood glucose 78 mg/dL 65-110 urea nitrogen, blood 24 mg/dL 7-18 creatinine, serum 0.75 mg/dL 0.55-1.30 alanine aminotransferase (SGPT), serum 31 U/L aspartate aminotransferase (SGOT), serum 20 U/L -37 calcium, serum 8.7 mg/dL 8.5-10.1 bilirubin, serum, total 0.30 mg/dL 0.00-1.00 sodium, serum 139 mmol/L 719-480 4789/12/30 carbon dioxide, venous blood 28.2 mmol/L 21.0-32.0 potassium, serum 3.9 mmol/L 3.5-5.2 chloride, serum 105 mmol/L 98-107 blood glucose 91 mg/dL 65-110 urea nitrogen, blood 17 mg/dL 7-18 creatinine, serum 0.81 mg/dL 0.55-1.30 alanine aminotransferase (SGPT), serum 29 U/L aspartate aminotransferase (SGOT), serum 22 U/L 15-37 calcium, serum 8.8 mg/dL 8.5-10.1 bilirubin, serum, total 0.50 mg/dL 0.00-1.00 sodium, serum 141 mmol/L 681-451 1681/11/11 carbon dioxide, venous blood 26.8 mmol/L 21.0-32.0 potassium, serum 4.2 mmol/L 3.5-5.2 chloride, serum 106 mmol/L 98-107 blood glucose 95 mg/dL 65-110 urea nitrogen, blood 18 mg/dL 7-18 creatinine, serum 0.70 mg/dL 0.55-1.30 alanine aminotransferase (SGPT), serum 33 U/L 12-78 aspartate aminotransferase (SGOT), serum 22 U/L 15-37 calcium, serum 8.5 mg/dL 8.5-10.1 bilirubin, serum, total 0.30 mg/dL 0.00-1.00 sodium, serum 143 mmol/L 554-333 1608/12/23 carbon dioxide, venous blood 24.6 mmol/L 21.0-32.0 potassium, serum 4.1 mmol/L 3.5-5.2 chloride, serum 107 mmol/L 98-107 blood glucose 98 mg/dL 65-110 urea nitrogen, blood 22 mg/dL 7-18 creatinine, serum 0.77 mg/dL 0.55-1.30 alanine aminotransferase (SGPT), serum 28 U/L -78 aspartate aminotransferase (SGOT), serum 20 U/L 15-37 calcium, serum 8.6 mg/dL 8.5-10.1 bilirubin, serum, total 0.30 mg/dL 0.00-1.00 Lab Report: VITAMIN D, 25-HYDROXY/82283 - Chemistry vitamin D 25-hydroxy, serum 24 ng/mL 30-100 Encounters Code Encounter Date Provider Facility CPT-00096 Level 2 Est. Patient 14:30:43 STEAM CLEANER Marta Viramontes [facility] CPT-82409 Level 4 Est. Patient 09:14:36 STEAM CLEANER Rikki GRANADOS [facility] CPT-73059 Level 2 Est. Patient 09:07:32 CDT Marta Viramontes HOT SAW OPERATOR [facility] CPT-08132 Level 4 Est. Patient 11:55:00 CDT Rikki GRANADOS [facility] CPT-03982 Level 3 Est. Patient 13:25:16 CDT Jennifer Chun MD PhD [facility] CPT-32698 Level 3 Est. Patient 17:31:22 CDT Solomon Alamo MD [facility] CPT-77519 Level 3 Est. Patient 08:02:14 CDT Solomon Alamo MD [facility] CPT-32973 Level 3 Est. Patient 17:23:53 CDT Rikki GRANADOS [facility] CPT-56332 Level 3 Est. Patient 11:22:41 CDT Darryn Hearn [facility] [place] Procedures Code Procedure Name Date Entry Date Standard Description CPT-82612 Chest 2V Frontal and Lat 10:57:00 STEAM CLEANER CPT-92210 Venipuncture Draw Fee 10:56:59 STEAM CLEANER CPT-81202 Venipuncture Draw Fee 09:22:28 STEAM CLEANER CPT-16110 Chest 2V Frontal and Lat 09:22:27 STEAM CLEANER CPT-I/D I/D Abscess 09:43:13 CDT CPT-34358 Venipuncture Draw Fee 08:16:46 STEAM CLEANER CPT-69721 Venipuncture Draw Fee 08:18:55 STEAM CLEANER CPT-64980 Venipuncture Draw Fee 08:31:18 STEAM CLEANER CPT-92843 Venipuncture Draw Fee 11:42:52 STEAM CLEANER CPT-88693 Venipuncture Draw Fee 13:26:37 STEAM CLEANER CPT-00358 Venipuncture Draw Fee 09:23:38 STEAM CLEANER CPT-000 Give Appropriate Tetanus Booster 10:23:50 CDT CPT-30788 Bone Density 08:28:45 CDT CPT-51471 Bone Density 11:35:15 CDT CPT-PV Prev. Care Visit 12:19:00 CDT CPT-54013 Venipuncture Draw Fee 15:02:58 CDT
[2018-01-19] MEDS ORDERED: BUPIVACAINE 0.5% 30 ML (SENSORCAINE) VIAL ONE (07:22)
--- OUTSIDE RECORDS SUMMARY | 2018-01-19 07:22 | XMS REPORT | Clinical Summary ---
Author Author Admin, E Organization [facility] [place] Address Unknown Phone Unavailable Allergies, Adverse Reactions, Alerts Allergy Name Reaction Description Start Date Severity Status Provider SULFA facial swelling Critical Active Jocelyne Naff MENTAL HEALTH SPECIALIST Conditions or Problems Problem Name Problem Code Onset Date Status Entry Date Provider Comment Standard Description Annotate G E R D 530.81 Active Jocelyne Naff MENTAL HEALTH SPECIALIST Esophageal reflux FH COLON CANCER V16.0 Active Jocelyne Naff MENTAL HEALTH SPECIALIST Family history of malignant neoplasm of [...] Ingrown toenail, left 703.0 Resolved Marta Yokum AGILE TEST LEAD Ingrowing nail cellulitis, finger, right 681.00 Active Marta Yokum AGILE TEST LEAD Cellulitis and abscess of finger, unspecified Cough 786.2 Active Marta Yokum AGILE TEST LEAD Cough Breast microcalcification ICD-793.81 Inactive Jennifer Chun [...] Ingrown toenail, left ICD-703.0 Inactive Marta Yokum [place] Medication List Medication Instructions Start Date Stop Date Generic Name NDC Status Provider Patient Instruction MEDROL (CAROLYN) 4 MG TABS 6 tabs on day 1, 5 tabs on day 2, 4 tabs on day 3, 3 tabs on day 4, 2 tabs on day 5, 1 tab on day 6 METHYLPREDNISOLONE [id number] No Longer Active Marta Yokum AGILE TEST LEAD Active TESSALON PERLES 100 MG CAP 1 to 2 tablets by mouth 3 times daily as needed for cough BENZONATATE 11308097254 Active Marta Yokum AGILE TEST LEAD Active TUSSIONEX PENNKINETIC ER 10-8 MG/5ML LQCR 5ml po q12hr PRN Cough HYDROCOD POLST-CHLORPHEN POLST 87702556592 Active Marta Yokum AGILE TEST LEAD Active KEFLEX 500 MG CAP 1 po qid CEPHALEXIN 87945009400 No Longer Active Marta Yokum AGILE TEST LEAD Active B COMPLEX 50 ORAL CR-TABS B COMPLEX VITAMINS 83238415897 Active Marta Yokum AGILE TEST LEAD Active TUSSIONEX PENNKINETIC ER 10-8 MG/5ML LQCR 5ml po q12hr PRN Cough HYDROCOD POLST-CHLORPHEN POLST 68128377462 No Longer Active Marta Viramontes APRN Active VITAMIN D3 86502 UNIT CAPS 1 qWeek x 4 months for vitamin D deficiency 04/09 CHOLECALCIFEROL 94604148547 Active Marta Viramontes AGILE TEST LEAD Active CEPHALEXIN 500 MG ORAL CAPS Take one four times a day CEPHALEXIN 27694830125 No Longer Active Marta Viramontes AGILE TEST LEAD Active BIOTIN 1000 MCG ORAL TABS Take one daily BIOTIN 47185521174 Active Rikki Harms PA Active VITAMIN C 500 MG ORAL CAPS Take one daily ASCORBIC ACID 33347202094 Active Rikki Harms PA Active BENZONATATE 200 MG ORAL CAPS One capsule tid. BENZONATATE 03899926548 No Longer Active Rikki Harms PA Active FLONASE ALLERGY RELIEF 50 MCG/ACT NASAL SUSP spray twice in each nostril one time daily FLUTICASONE PROPIONATE 86660203794 No Longer Active Rikki Harms PA Active TUSSIONEX PENNKINETIC ER 10-8 MG/5ML LQCR 5ml po q12hr PRN Cough HYDROCOD POLST-CHLORPHEN POLST 14423872107 No Longer Active Rikki Harms PA Active NIACIN ER 500 MG ORAL CR-TABS Take one twice daily NIACIN 09843322039 Active Rikki Harms PA Active ALBUTEROL SULFATE 0.083 % NEBU SOLN one vial per nebulizer every 4-6 hours as needed ALBUTEROL SULFATE 96201841834 No Longer Active Rikki Harms PA Active MEDROL (CAROLYN) 4 MG TABS 6 tabs on day 1, 5 tabs on day 2, 4 tabs on day 3, 3 tabs on day 4, 2 tabs on day 5, 1 tab on day 6 METHYLPREDNISOLONE 37861084292 No Longer Active Rikki Harms PA Active LEVAQUIN 750 MG TABS 1 po qd x 7 days LEVOFLOXACIN 68621986175 No Longer Active Rikki Harms PA Active LEVAQUIN 500 MG ORAL TABS Take one tablet daily LEVOFLOXACIN 97832986902 No Longer Active Rikki Harms PA Active PROAIR HFA 108 (90 BASE) MCG/ACT AERS 2 puffs four times a day as needed 2014 ALBUTEROL SULFATE 11635295113 Active Marta Yokum AGILE TEST LEAD Active LEVAQUIN 500 MG TAB 1 tablet by mouth daily LEVOFLOXACIN 57721895670 No Longer Active Marta Yokum AGILE TEST LEAD Active CHERATUSSIN AC 100-10 MG/5ML SYRP 1 tsp by mouth every 4 hours as needed for cough GUAIFENESIN-CODEINE 58127029513 No Longer Active Rikki Harms PA Active MUPIROCIN 2 % EXT OINT Use in each nostril in am and pm MUPIROCIN 64427447705 No Longer Active Rikki Harms PA Active DOXYCYCLINE HYCLATE 100 MG ORAL CAPS Take one bid DOXYCYCLINE HYCLATE 56935339644 No Longer Active Rikki Harms PA Active CLARITIN 10 MG TABS 1prn LORATADINE 43889748750 No Longer Active Jocelyne Naff MENTAL HEALTH SPECIALIST Active ASPIRIN 81 MG TABS 1qd ASPIRIN 21842094974 No Longer Active Jocelyne Naff MENTAL HEALTH SPECIALIST Active DOXYCYCLINE HYCLATE 100 MG CAP 1 cap by mouth twice daily DOXYCYCLINE HYCLATE 94009838501 No Longer Active Rikki Harms PA Active VITAMIN D3 20898 UNIT CAPS 1 pill by mouth weekly, for vitamin D deficiency CHOLECALCIFEROL 44944509693 No Longer Active Jennifer Chun MD PhD Active ANASTROZOLE 1 MG ORAL TABS Take one by mouth daily ANASTROZOLE 65745436543 Active Jennifer Chun MD PhD Active ZITHROMAX 250 MG TAB 2 po today, then 1 po q days 2-5 AZITHROMYCIN 83072151929 No Longer Active Rikki Harms PA Active MECLIZINE HCL 25 MG TABS 1 prn MECLIZINE HCL 16410967251 No Longer Active Solomon Alamo MD Active CHERATUSSIN AC SYRP prn as directed GUAIFENESIN- CODEINE SYRP 56471449515 No Longer Active Rikki Harms PA Active MULTIVITAMINS TABS 1qd MULTIPLE VITAMIN 90305390519 No Longer Active Rikki Harms PA Active OMEPRAZOLE 20 MG CPDR 1 PO Q D OMEPRAZOLE 24207898919 Active Jocelyne Naff MENTAL HEALTH SPECIALIST Active ZITHROMAX Z-CAROLYN 250 MG TABS 2x1day,2x9iexf AZITHROMYCIN 93741249379 No Longer Active Jocelyne Naff MENTAL HEALTH SPECIALIST Active MULTIVITAMINS TABS 1qd MULTIVITAMINS TABS MULTIPLE VITAMIN Inactive CHERATUSSIN AC SYRP prn as directed CHERATUSSIN AC SYRP GUAIFENESIN-CODEINE SYRP Inactive MECLIZINE HCL 25 MG TABS 1 prn MECLIZINE HCL 25 MG TABS 103720 MECLIZINE HCL Inactive ASPIRIN 81 MG TABS 1qd ASPIRIN 81 MG TABS ASPIRIN Inactive CLARITIN 10 MG TABS 1prn CLARITIN 10 MG TABS 334873 LORATADINE Inactive DOXYCYCLINE HYCLATE 100 MG ORAL CAPS Take one bid DOXYCYCLINE HYCLATE 100 MG ORAL CAPS 3317072 DOXYCYCLINE HYCLATE Inactive MUPIROCIN 2 % EXT OINT Use in each nostril in am and pm MUPIROCIN 2 % EXT OINT 098569 MUPIROCIN Inactive CHERATUSSIN AC 100-10 MG/5ML SYRP 1 tsp by mouth every 4 hours as needed for cough CHERATUSSIN AC 100-10 MG/5ML SYRP 356866 GUAIFENESIN-CODEINE Inactive LEVAQUIN 500 MG TAB 1 tablet by mouth daily LEVAQUIN 500 MG TAB 284696 LEVOFLOXACIN Inactive LEVAQUIN 500 MG ORAL TABS Take one tablet daily LEVAQUIN 500 MG ORAL TABS 318280 LEVOFLOXACIN Inactive LEVAQUIN 750 MG TABS 1 po qd x 7 days LEVAQUIN 750 MG TABS 298230 LEVOFLOXACIN Inactive ALBUTEROL SULFATE 0.083 % NEBU SOLN one vial per nebulizer every 4-6 hours as needed ALBUTEROL SULFATE 0.083 % NEBU SOLN 057430 ALBUTEROL SULFATE Inactive TUSSIONEX PENNKINETIC ER 10-8 MG/5ML LQCR 5ml po q12hr PRN Cough TUSSIONEX PENNKINETIC ER 10-8 MG/5ML LQCR HYDROCOD POLST- CHLORPHEN POLST Inactive FLONASE ALLERGY RELIEF 50 MCG/ACT NASAL SUSP spray twice in each nostril one time daily FLONASE ALLERGY RELIEF 50 MCG/ACT NASAL SUSP 5614516 FLUTICASONE PROPIONATE Inactive BENZONATATE 200 MG ORAL CAPS One capsule tid. BENZONATATE 200 MG ORAL CAPS 174649 BENZONATATE Inactive CEPHALEXIN 500 MG ORAL CAPS Take one four times a day CEPHALEXIN 500 MG ORAL CAPS 860756 CEPHALEXIN Inactive TUSSIONEX PENNKINETIC ER 10-8 MG/5ML LQCR 5ml po q12hr PRN Cough TUSSIONEX PENNKINETIC ER 10-8 MG/5ML LQCR HYDROCOD POLST- CHLORPHEN POLST Inactive ZITHROMAX Z-CAROLYN 250 MG TABS 2x1day,2c5opxh ZITHROMAX Z-CAROLYN 250 MG TABS 0551603 AZITHROMYCIN Inactive ZITHROMAX 250 MG TAB 2 po today, then 1 po q days 2-5 ZITHROMAX 250 MG TAB 8171244 AZITHROMYCIN Inactive VITAMIN D3 57120 UNIT CAPS 1 pill by mouth weekly, for vitamin D deficiency VITAMIN D3 78279 UNIT CAPS CHOLECALCIFEROL Inactive DOXYCYCLINE HYCLATE 100 MG CAP 1 cap by mouth twice daily DOXYCYCLINE HYCLATE 100 MG CAP 4086598 DOXYCYCLINE HYCLATE Inactive MEDROL (CAROLYN) 4 MG TABS 6 tabs on day 1, 5 tabs on day 2, 4 tabs on day 3, 3 tabs on day 4, 2 tabs on day 5, 1 tab on day 6 MEDROL ( CAROLYN) 4 MG TABS 639548 METHYLPREDNISOLONE Inactive KEFLEX 500 MG CAP 1 po qid KEFLEX 500 MG CAP 075235 CEPHALEXIN Inactive MEDROL (CAROLYN) 4 MG TABS 6 tabs on day 1, 5 tabs on day 2, 4 tabs on day 3, 3 tabs on day 4, 2 tabs on day 5, 1 tab on day 6 MEDROL ( CAROLYN) 4 MG TABS 412481 METHYLPREDNISOLONE Inactive Vital Signs Date Name Value [...] Panel - Chemistry sodium, serum 142 mmol/L 867-644 6823/07/25 potassium, serum 4.0 mmol/L 3.5-5.2 chloride, serum 107 mmol/L 98-107 carbon dioxide, venous blood 31.6 mmol/L 21.0-32.0 blood glucose 108 mg/dL 65-110 calcium, serum 9.2 mg/dL 8.5-10.1 urea nitrogen, blood 20 mg/dL 7-18 creatinine, serum 0.92 mg/dL 0.55-1.30 sodium, serum 141 mmol/L 021-573 1663/11/11 potassium, serum 4.2 mmol/L 3.5-5.2 chloride, serum 106 mmol/L 98-107 carbon dioxide, venous blood 29.1 mmol/L 21.0-32.0 blood glucose 95 mg/dL 65-110 calcium, serum 8.6 mg/dL 8.5-10.1 urea nitrogen, blood 23 mg/dL 7-18 creatinine, serum 0.83 mg/dL 0.55-1.30 Lab Report: Lipid Panel, Thyroid Stimulating Hormone (L) - Chemistry cholesterol, serum 177 mg/dL 732-324 9385/10/31 triglyceride, serum, fasting 64 mg/dL 30-200 HDL cholesterol, serum 77 mg/dL 32-96 LDL cholesterol, serum 87 mg/dL 0-130 TSH 2.13 m[iU]/mL 0.36-3.74 Lab Report: VITAMIN D, 25-HYDROXY/78791 - Chemistry vitamin D 25-hydroxy, serum 25 ng/mL 30-100 Encounters Code Encounter Date Provider Facility CPT-22499 Level 3 Est. Patient 16:07:34 CDT Marta Viramontes APRN [facility] CPT-67196 Level 3 Est. Patient 15:39:01 CDT Marta Viramontes [facility] [place] CPT-49606 Level 4 Est. Patient 17:31:07 CDT Matra Viramontes [facility] [place] CPT-90103 Level 3 Est. Patient 05:11:40 CDT Rikki GRANADOS [facility] CPT-05800 Level 2 Est. Patient 14:30:43 HELPER/DRIVER Marta Viramontes [facility] CPT-07205 Level 4 Est. Patient 09:14:36 HELPER/DRIVER Rikki GRANADOS [facility] CPT-11425 Level 2 Est. Patient 09:07:32 CDT Marta Yoluisblas [facility] CPT-22683 Level 4 Est. Patient 11:55:00 CDT Rikki GRANADOS [facility] CPT-12644 Level 3 Est. Patient 13:25:16 CDT Jennifer Chun MD PhD [facility] CPT-77071 Level 3 Est. Patient 17:31:22 CDT Solomon Alamo MD [facility] CPT-04152 Level 3 Est. Patient 08:02:14 CDT Solomon Alamo MD [facility] CPT-66470 Level 3 Est. Patient 17:23:53 CDT Rikki GRANADOS [facility] CPT-83009 Level 3 Est. Patient 11:22:41 CDT Darryn Hearn [facility] Procedures Code Procedure Name Date Entry Date Standard Description CPT-95022 Venipuncture Draw Fee 12:43:48 HELPER/DRIVER CPT-95407 BMP - LAB USE ONLY 10:32:33 HELPER/DRIVER CPT-99144 Venipuncture Draw Fee 10:32:33 HELPER/DRIVER CPT-09313 Magnesium - LAB USE ONLY 09:54:30 CDT CPT-80567 TSH - LAB USE ONLY 09:54:30 CDT CPT-23281 Lipid - LAB USE ONLY 09:54:30 CDT CPT-09314 Venipuncture Draw Fee 09:54:29 CDT CPT-44956 Venipuncture Draw Fee 18:27:04 CDT CPT-45498 Chest 2V Frontal and Lat 10:57:00 HELPER/DRIVER CPT-08462 Venipuncture Draw Fee 10:56:59 HELPER/DRIVER CPT-62086 Venipuncture Draw Fee 09:22:28 HELPER/DRIVER CPT-77415 Chest 2V Frontal and Lat 09:22:27 HELPER/DRIVER CPT-I/D I/D Abscess 09:43:13 CDT CPT-90810 Venipuncture Draw Fee 08:16:46 HELPER/DRIVER CPT-54906 Venipuncture Draw Fee 08:18:55 HELPER/DRIVER CPT-76474 Venipuncture Draw Fee 08:31:18 HELPER/DRIVER CPT-15584 Venipuncture Draw Fee 11:42:52 HELPER/DRIVER CPT-04673 Venipuncture Draw Fee 13:26:37 HELPER/DRIVER CPT-93983 Venipuncture Draw Fee 09:23:38 HELPER/DRIVER CPT-000 Give Appropriate Tetanus Booster 10:23:50 CDT CPT-89216 Bone Density 08:28:45 CDT CPT-50277 Bone Density 11:35:15 CDT CPT-PV Prev. Care Visit 12:19:00 CDT CPT-48232 Venipuncture Draw Fee 15:02:58 CDT
--- OUTSIDE RECORDS SUMMARY | 2018-01-19 07:23 | XMS REPORT | Clinical Summary ---
Author Author Admin, E Organization [facility] Address Unknown Phone Unavailable Allergies, Adverse Reactions, Alerts Allergy Name Reaction Description Start Date Severity Status Provider SULFA facial swelling Critical Active Jocelyne Naff UNIX DEVELOPER Conditions or Problems Problem Name Problem Code Onset Date Status Entry Date Provider Comment Standard Description Annotate G E R D 530.81 Active Jocelyne Naff UNIX DEVELOPER Esophageal reflux FH COLON CANCER V16.0 Active Jocelyne Naff UNIX DEVELOPER Family history of malignant neoplasm of gastrointestinal [...] unspecified sites Rash 782.1 Active Marta Viramontes BANDER OPERATOR Rash and other nonspecific skin eruption [...] 5, 1 tab on day 6 METHYLPREDNISOLONE 32338203198 No Longer Active Rikki GRANADOS Active ALBUTEROL SULFATE 0.083 % NEBU SOLN one vial per nebulizer every 4-6 hours as needed ALBUTEROL SULFATE 80328783921 Active Rikki Harms PA Active LEVAQUIN 750 MG TABS 1 po qd x 7 days LEVOFLOXACIN 45029773721 No Longer Active Rikki Harms PA Active LEVAQUIN 500 MG ORAL TABS Take one tablet daily LEVOFLOXACIN 51732211893 No Longer Active Rikki Harms PA Active PROAIR HFA 108 (90 BASE) MCG/ACT AERS 2 puffs four times a day as needed 2014 ALBUTEROL SULFATE 46588765394 Active Marta Yokum BANDER OPERATOR Active TUSSIONEX PENNKINETIC ER 10-8 MG/5ML LQCR 5ml po q12hr PRN Cough HYDROCOD POLST-CHLORPHEN POLST 42606062497 Active Rikki Harms PA Active FLONASE ALLERGY RELIEF 50 MCG/ACT NASAL SUSP spray twice in each nostril one time daily FLUTICASONE PROPIONATE 48919683943 Active Marta Yokum BANDER OPERATOR Active LEVAQUIN 500 MG TAB 1 tablet by mouth daily LEVOFLOXACIN 52589020384 No Longer Active Marta Yokum BANDER OPERATOR Active BENZONATATE 200 MG ORAL CAPS One capsule tid. BENZONATATE 50822327854 Active Marta Yokum BANDER OPERATOR Active CHERATUSSIN AC 100-10 MG/5ML SYRP 1 tsp by mouth every 4 hours as needed for cough GUAIFENESIN-CODEINE 78161970669 No Longer Active Rikki Harms PA Active MUPIROCIN 2 % EXT OINT Use in each nostril in am and pm MUPIROCIN 37380828064 No Longer Active Rikki Harms PA Active DOXYCYCLINE HYCLATE 100 MG ORAL CAPS Take one bid DOXYCYCLINE HYCLATE 39195406631 No Longer Active Rikki Harms PA Active CLARITIN 10 MG TABS 1prn LORATADINE 88329255288 No Longer Active Jocelyne Naff UNIX DEVELOPER Active ASPIRIN 81 MG TABS 1qd ASPIRIN 27625631238 No Longer Active Jocelyne Naff UNIX DEVELOPER Active DOXYCYCLINE HYCLATE 100 MG CAP 1 cap by mouth twice daily DOXYCYCLINE HYCLATE 93460167511 No Longer Active Rikki Harms PA Active VITAMIN D3 40888 UNIT CAPS 1 pill by mouth weekly, for vitamin D deficiency CHOLECALCIFEROL 79676535530 No Longer Active Jennifer Chun MD PhD Active ANASTROZOLE 1 MG ORAL TABS Take one by mouth daily ANASTROZOLE 98779111643 Active Jennifer Chun MD PhD Active ZITHROMAX 250 MG TAB 2 po today, then 1 po q days 2-5 AZITHROMYCIN 93756289624 No Longer Active Rikki Harms PA Active MECLIZINE HCL 25 MG TABS 1 prn MECLIZINE HCL 09884845763 No Longer Active Solomon Alamo MD Active CHERATUSSIN AC SYRP prn as directed GUAIFENESIN- CODEINE SYRP 53169500047 No Longer Active Rikki Harms PA Active MULTIVITAMINS TABS 1qd MULTIPLE VITAMIN 69868138287 No Longer Active Rikki Harms PA Active OMEPRAZOLE 20 MG CPDR 1 PO Q D OMEPRAZOLE 25254202369 Active Rikki Harms PA Active ZITHROMAX Z-CAROLYN 250 MG TABS 2x1day,0n8xnsm AZITHROMYCIN 25625661915 No Longer Active Jocelyne Naff UNIX DEVELOPER Active MULTIVITAMINS TABS 1qd MULTIVITAMINS TABS MULTIPLE VITAMIN Inactive CHERATUSSIN AC SYRP prn as directed CHERATUSSIN AC SYRP GUAIFENESIN-CODEINE SYRP Inactive MECLIZINE HCL 25 MG TABS 1 prn MECLIZINE HCL 25 MG TABS 733240 MECLIZINE HCL Inactive ASPIRIN 81 MG TABS 1qd ASPIRIN 81 MG TABS 061621 ASPIRIN Inactive CLARITIN 10 MG TABS 1prn CLARITIN 10 MG TABS 486106 LORATADINE Inactive DOXYCYCLINE HYCLATE 100 MG ORAL CAPS Take one bid DOXYCYCLINE HYCLATE 100 MG ORAL CAPS 0884594 DOXYCYCLINE HYCLATE Inactive MUPIROCIN 2 % EXT OINT Use in each nostril in am and pm MUPIROCIN 2 % EXT OINT 969087 MUPIROCIN Inactive CHERATUSSIN AC 100-10 MG/5ML SYRP 1 tsp by mouth every 4 hours as needed for cough CHERATUSSIN AC 100-10 MG/5ML SYRP 929168 GUAIFENESIN-CODEINE Inactive LEVAQUIN 500 MG TAB 1 tablet by mouth daily LEVAQUIN 500 MG TAB 554097 LEVOFLOXACIN Inactive LEVAQUIN 500 MG ORAL TABS Take one tablet daily LEVAQUIN 500 MG ORAL TABS 537665 LEVOFLOXACIN Inactive LEVAQUIN 750 MG TABS 1 po qd x 7 days LEVAQUIN 750 MG TABS 434513 LEVOFLOXACIN Inactive ZITHROMAX Z-CAROLYN 250 MG TABS 2x1day,7k1lbow ZITHROMAX Z-CAROLYN 250 MG TABS 5251556 AZITHROMYCIN Inactive ZITHROMAX 250 MG TAB 2 po today, then 1 po q days 2-5 ZITHROMAX 250 MG TAB 0394698 AZITHROMYCIN Inactive VITAMIN D3 69983 UNIT CAPS 1 pill by mouth weekly, for vitamin D deficiency VITAMIN D3 97489 UNIT CAPS CHOLECALCIFEROL Inactive DOXYCYCLINE HYCLATE 100 MG CAP 1 cap by mouth twice daily DOXYCYCLINE HYCLATE 100 MG CAP 8179952 DOXYCYCLINE HYCLATE Inactive MEDROL (CAROLYN) 4 MG [...] % 11.6-14.8 platelet count 143 10^3/MM^3 10*3/mm3 407-236 9352/11/25 leukocyte count, blood 2.1 10^3/MM^3 10*3/mm3 4.6-10.2 [...] % 11.6-14.8 platelet count 139 10^3/MM^3 10*3/mm3 620-305 0954/12/02 leukocyte count, blood 6.7 10^3/MM^3 10*3/mm3 4.6-10.2 [...] % 11.6-14.8 platelet count 258 10^3/MM^3 10*3/mm3 813-591 7567/12/09 leukocyte count, blood 5.3 10^3/MM^3 10*3/mm3 4.6-10.2 [...] % 11.6-14.8 platelet count 240 10^3/MM^3 10*3/mm3 711-622 7680/12/16 leukocyte count, blood 3.2 10^3/MM^3 10*3/mm3 4.6-10.2 [...] % 11.6-14.8 platelet count 158 10^3/MM^3 10*3/mm3 959-091 6013/12/18 leukocyte count, blood 8.8 10^3/MM^3 10*3/mm3 4.6-10.2 [...] % 11.6-14.8 platelet count 207 10^3/MM^3 10*3/mm3 502-728 9224/12/23 leukocyte count, blood 6.2 10^3/MM^3 10*3/mm3 4.6-10.2 [...] % 11.6-14.8 platelet count 183 10^3/MM^3 10*3/mm3 585-917 3458/11/11 leukocyte count, blood 2.0 10^3/MM^3 10*3/mm3 4.6-10.2 [...] % 11.6-14.8 platelet count 203 10^3/MM^3 10*3/mm3 414-155 1874/12/30 leukocyte count, blood 5.2 10^3/MM^3 10*3/mm3 4.6-10.2 [...] % 11.6-14.8 platelet count 200 10^3/MM^3 10*3/mm3 903-299 6493/03/02 leukocyte count, blood 5.1 10^3/MM^3 10*3/mm3 4.6-10.2 [...] Panel - Chemistry sodium, serum 142 mmol/L 343-663 2673/02/04 carbon dioxide, venous blood 24.9 mmol/L 21.0-32.0 potassium, serum 4.1 mmol/L 3.5-5.2 chloride, serum 106 mmol/L 98-107 blood glucose 103 mg/dL 65-110 urea nitrogen, blood 25 mg/dL 7-18 creatinine, serum 0.83 mg/dL 0.55-1.30 alanine aminotransferase (SGPT), serum 38 U/L 12-78 aspartate aminotransferase (SGOT), serum 26 U/L 15-37 calcium, serum 8.7 mg/dL 8.5-10.1 bilirubin, serum, total 0.30 mg/dL 0.00-1.00 sodium, serum 140 mmol/L 421-678 7779/01/13 carbon dioxide, venous blood 26.4 mmol/L 21.0-32.0 potassium, serum 4.2 mmol/L 3.5-5.2 chloride, serum 104 mmol/L 98-107 blood glucose 101 mg/dL 65-110 urea nitrogen, blood 18 mg/dL 7-18 creatinine, serum 0.80 mg/dL 0.55-1.30 alanine aminotransferase (SGPT), serum 28 U/L aspartate aminotransferase (SGOT), serum 24 U/L 15-37 calcium, serum 8.7 mg/dL 8.5-10.1 bilirubin, serum, total 0.50 mg/dL 0.00-1.00 sodium, serum 138 mmol/L 904-581 4751/11/04 carbon dioxide, venous blood 27.7 mmol/L 21.0-32.0 potassium, serum 4.9 mmol/L 3.5-5.2 chloride, serum 104 mmol/L 98-107 blood glucose 92 mg/dL 65-110 urea nitrogen, blood 24 mg/dL 7-18 creatinine, serum 0.95 mg/dL 0.55-1.30 alanine aminotransferase (SGPT), serum 34 U/L aspartate aminotransferase (SGOT), serum 23 U/L - calcium, serum 8.9 mg/dL 8.5-10.1 bilirubin, serum, total 0.70 mg/dL 0.00-1.00 sodium, serum 140 mmol/L 894-836 6847/01/06 carbon dioxide, venous blood 27.2 mmol/L 21.0-32.0 [...] % 11.6-14.8 platelet count 289 10^3/MM^3 10*3/mm3 280-949 3456/01/06 leukocyte count, blood 4.1 10^3/MM^3 10*3/mm3 4.6-10.2 [...] % 11.6-14.8 platelet count 297 10^3/MM^3 10*3/mm3 412-850 9846/02/04 leukocyte count, blood 4.2 10^3/MM^3 10*3/mm3 4.6-10.2 [...] % 11.6-14.8 platelet count 271 10^3/MM^3 10*3/mm3 408-445 3895/11/04 leukocyte count, blood 3.8 10^3/MM^3 10*3/mm3 4.6-10.2 [...] Panel - Chemistry sodium, serum 140 mmol/L 826-070 4493/07/13 potassium, serum 4.5 mmol/L 3.5-5.2 chloride, serum 106 mmol/L 98-107 carbon dioxide, venous blood 27.7 mmol/L 21.0-32.0 blood glucose 105 mg/dL 65-110 urea nitrogen, blood 14 mg/dL 7-18 creatinine, serum 0.90 mg/dL 0.60-1.30 alanine aminotransferase (SGPT), serum 29 U/L 12-78 aspartate aminotransferase (SGOT), serum 22 U/L 15-37 calcium, serum 9.4 mg/dL 8.5-10.1 bilirubin, serum, total 0.70 mg/dL 0.00-1.00 cholesterol, serum 160 mg/dL 663-294 5905/07/13 triglyceride, serum, fasting 63 mg/dL 30-200 HDL [...] Panel - Chemistry sodium, serum 141 mmol/L 738-897 0562/11/18 carbon dioxide, venous blood 26.2 mmol/L 21.0-32.0 potassium, serum 4.4 mmol/L 3.5-5.2 chloride, serum 106 mmol/L 98-107 blood glucose 102 mg/dL 65-110 urea nitrogen, blood 24 mg/dL 7-18 creatinine, serum 0.77 mg/dL 0.55-1.30 alanine aminotransferase (SGPT), serum 30 U/L 12-78 aspartate aminotransferase (SGOT), serum 15 U/L 15-37 calcium, serum 8.3 mg/dL 8.5-10.1 bilirubin, serum, total 0.30 mg/dL 0.00-1.00 sodium, serum 139 mmol/L 327-000 8870/11/25 carbon dioxide, venous blood 27.9 mmol/L 21.0-32.0 potassium, serum 4.7 mmol/L 3.5-5.2 chloride, serum 105 mmol/L 98-107 blood glucose 94 mg/dL 65-110 urea nitrogen, blood 21 mg/dL 7-18 creatinine, serum 0.79 mg/dL 0.55-1.30 alanine aminotransferase (SGPT), serum 40 U/L aspartate aminotransferase (SGOT), serum 22 U/L 15-37 calcium, serum 8.5 mg/dL 8.5-10.1 bilirubin, serum, total 0.80 mg/dL 0.00-1.00 sodium, serum 142 mmol/L 367-456 7449/12/09 carbon dioxide, venous blood 28.5 mmol/L 21.0-32.0 potassium, serum 5.0 mmol/L 3.5-5.2 chloride, serum 109 mmol/L 98-107 blood glucose 91 mg/dL 65-110 urea nitrogen, blood 27 mg/dL - creatinine, serum 0.88 mg/dL 0.55-1.30 alanine aminotransferase (SGPT), serum 31 U/L aspartate aminotransferase (SGOT), serum 18 U/L 15-37 calcium, serum 8.9 mg/dL 8.5-10.1 bilirubin, serum, total 0.40 mg/dL 0.00-1.00 sodium, serum 140 mmol/L 486-130 8112/12/16 carbon dioxide, venous blood 25.4 mmol/L 21.0-32.0 potassium, serum 4.1 mmol/L 3.5-5.2 chloride, serum 104 mmol/L 98-107 blood glucose 110 mg/dL 65-110 urea nitrogen, blood 24 mg/dL 7- creatinine, serum 0.87 mg/dL 0.55-1.30 alanine aminotransferase (SGPT), serum 35 U/L aspartate aminotransferase (SGOT), serum 21 U/L 15-37 calcium, serum 8.4 mg/dL 8.5-10.1 bilirubin, serum, total 0.50 mg/dL 0.00-1.00 sodium, serum 141 mmol/L 633-464 5004/12/02 carbon dioxide, venous blood 25.9 mmol/L 21.0-32.0 potassium, serum 4.7 mmol/L 3.5-5.2 chloride, serum 106 mmol/L 98-107 blood glucose 78 mg/dL 65-110 urea nitrogen, blood 24 mg/dL 7-18 creatinine, serum 0.75 mg/dL 0.55-1.30 alanine aminotransferase (SGPT), serum 31 U/L aspartate aminotransferase (SGOT), serum 20 U/L -37 calcium, serum 8.7 mg/dL 8.5-10.1 bilirubin, serum, total 0.30 mg/dL 0.00-1.00 sodium, serum 139 mmol/L 702-317 6597/12/30 carbon dioxide, venous blood 28.2 mmol/L 21.0-32.0 potassium, serum 3.9 mmol/L 3.5-5.2 chloride, serum 105 mmol/L 98-107 blood glucose 91 mg/dL 65-110 urea nitrogen, blood 17 mg/dL 7-18 creatinine, serum 0.81 mg/dL 0.55-1.30 alanine aminotransferase (SGPT), serum 29 U/L aspartate aminotransferase (SGOT), serum 22 U/L 15-37 calcium, serum 8.8 mg/dL 8.5-10.1 bilirubin, serum, total 0.50 mg/dL 0.00-1.00 sodium, serum 141 mmol/L 257-869 6192/11/11 carbon dioxide, venous blood 26.8 mmol/L 21.0-32.0 potassium, serum 4.2 mmol/L 3.5-5.2 chloride, serum 106 mmol/L 98-107 blood glucose 95 mg/dL 65-110 urea nitrogen, blood 18 mg/dL 7-18 creatinine, serum 0.70 mg/dL 0.55-1.30 alanine aminotransferase (SGPT), serum 33 U/L 12-78 aspartate aminotransferase (SGOT), serum 22 U/L 15-37 calcium, serum 8.5 mg/dL 8.5-10.1 bilirubin, serum, total 0.30 mg/dL 0.00-1.00 sodium, serum 143 mmol/L 994-732 7127/12/23 carbon dioxide, venous blood 24.6 mmol/L 21.0-32.0 potassium, serum 4.1 mmol/L 3.5-5.2 chloride, serum 107 mmol/L 98-107 blood glucose 98 mg/dL 65-110 urea nitrogen, blood 22 mg/dL 7-18 creatinine, serum 0.77 mg/dL 0.55-1.30 alanine aminotransferase (SGPT), serum 28 U/L -78 aspartate aminotransferase (SGOT), serum 20 U/L 15-37 calcium, serum 8.6 mg/dL 8.5-10.1 bilirubin, serum, total 0.30 mg/dL 0.00-1.00 Lab Report: VITAMIN D, 25-HYDROXY/76651 - Chemistry vitamin D 25-hydroxy, serum 24 ng/mL 30-100 Encounters Code Encounter Date Provider Facility CPT-04153 Level 2 Est. 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 CPT-10161 Level 4 Est. Patient 09:14:36 [employer] Rikki GRANADOS [facility] CPT-56975 Level 2 Est. Patient 09:07:32 CDT Marta Viramontes BANDER OPERATOR [facility] CPT-54864 Level 4 Est. Patient 11:55:00 CDT Rikki GRANADOS [facility] CPT-61206 Level 3 Est. Patient 13:25:16 CDT Jennifer Chun MD PhD [facility] CPT-64974 Level 3 Est. Patient 17:31:22 CDT Solomon Alamo MD [facility] CPT-86146 Level 3 Est. Patient 08:02:14 CDT Solomon Alamo MD [facility] CPT-89716 Level 3 Est. Patient 17:23:53 CDT Rikki GRANADOS [facility] CPT-73304 Level 3 Est. Patient 11:22:41 CDT Darryn Hearn [facility] Procedures Code Procedure Name Date Entry Date Standard Description CPT-68724 Chest 2V Frontal and Lat 10:57:00 [employer] CPT-85091 Venipuncture Draw Fee 10:56:59 [employer] CPT-80948 Venipuncture Draw Fee 09:22:28 [employer] CPT-84569 Chest 2V Frontal and Lat 09:22:27 [employer] CPT-I/D I/D Abscess 09:43:13 CDT CPT-57970 Venipuncture Draw Fee 08:16:46 [employer] CPT-13876 Venipuncture Draw Fee 08:18:55 [employer] CPT-18793 Venipuncture Draw Fee 08:31:18 [employer] CPT-80316 Venipuncture Draw Fee 11:42:52 [employer] CPT-77026 Venipuncture Draw Fee 13:26:37 [employer] CPT-57235 Venipuncture Draw Fee 09:23:38 [employer] CPT-000 Give Appropriate Tetanus Booster 10:23:50 CDT CPT-41607 Bone Density 08:28:45 CDT CPT-98147 Bone Density 11:35:15 CDT CPT-PV Prev. Care Visit 12:19:00 CDT CPT-14423 Venipuncture Draw Fee 15:02:58 CDT
--- OUTSIDE RECORDS SUMMARY | 2018-01-19 07:23 | XMS REPORT | Clinical Summary ---
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 Conditions or Problems Problem Name Problem Code Onset Date Status Entry Date Provider Comment Standard Description Annotate G E R D 530.81 Active Jocelyne Naff SHIRT IRONER SUPERVISOR Esophageal reflux FH COLON CANCER V16.0 Active Jocelyne Naff SHIRT IRONER SUPERVISOR Family history of malignant neoplasm of gastrointestinal [...] each nostril in am and pm MUPIROCIN 70305486351 Active Jocelyne Naff SHIRT IRONER SUPERVISOR Active CLARITIN 10 MG TABS 1prn LORATADINE 78657494541 No Longer Active Jocelyne Naff SHIRT IRONER SUPERVISOR Active ASPIRIN 81 MG TABS 1qd ASPIRIN 32609176564 No Longer Active Jocelyne Naff SHIRT IRONER SUPERVISOR Active DOXYCYCLINE HYCLATE 100 MG ORAL CAPS Take one bid DOXYCYCLINE HYCLATE 70168725086 Active Jocelyne Naff SHIRT IRONER SUPERVISOR Active DOXYCYCLINE HYCLATE 100 MG CAP 1 cap by mouth twice daily DOXYCYCLINE HYCLATE 09543323637 No Longer Active Rikki GRANADOS Active VITAMIN D3 66860 UNIT CAPS 1 pill by mouth weekly, for vitamin D deficiency CHOLECALCIFEROL 84129839372 Active Jennifer Chun MD PhD Active ANASTROZOLE 1 MG ORAL TABS Take one by mouth daily ANASTROZOLE 96894263318 Active Jennifer Chun MD PhD Active ZITHROMAX 250 MG TAB 2 po today, then 1 po q days 2-5 AZITHROMYCIN 53088886335 No Longer Active Rikki GRANADOS Active MECLIZINE HCL 25 MG TABS 1 prn MECLIZINE HCL 91740282306 No Longer Active Solomon Alamo MD Active CHERATUSSIN AC SYRP prn as directed GUAIFENESIN- CODEINE SYRP 46765232012 No Longer Active Rikki Harms PA Active MULTIVITAMINS TABS 1qd MULTIPLE VITAMIN 69572073499 No Longer Active Rikki Harms PA Active OMEPRAZOLE 20 MG CPDR 1 PO Q D OMEPRAZOLE 10894360157 Active Rikki Harms PA Active ZITHROMAX Z-CAROLYN 250 MG TABS 2x1day,0z6vpav AZITHROMYCIN 28342626964 No Longer Active Jocelyne Naff SHIRT IRONER SUPERVISOR Active MULTIVITAMINS TABS 1qd MULTIVITAMINS TABS MULTIPLE VITAMIN Inactive CHERATUSSIN AC SYRP prn as directed CHERATUSSIN AC SYRP GUAIFENESIN-CODEINE SYRP Inactive MECLIZINE HCL 25 MG TABS 1 prn MECLIZINE HCL 25 MG TABS 492680 MECLIZINE HCL Inactive ASPIRIN 81 MG TABS 1qd ASPIRIN 81 MG TABS 965375 ASPIRIN Inactive CLARITIN 10 MG TABS 1prn CLARITIN 10 MG TABS 435510 LORATADINE Inactive ZITHROMAX Z-CAROLYN 250 MG TABS 2x1day,9c1qewl ZITHROMAX Z-CAROLYN 250 MG TABS 7632186 AZITHROMYCIN Inactive ZITHROMAX 250 MG TAB 2 po today, then 1 po q days 2-5 ZITHROMAX 250 MG TAB 4657805 AZITHROMYCIN Inactive DOXYCYCLINE HYCLATE 100 MG CAP 1 cap by mouth twice daily DOXYCYCLINE HYCLATE 100 MG CAP 9249076 DOXYCYCLINE HYCLATE Inactive Vital Signs Date Name [...] % 11.6-14.8 platelet count 131 10^3/MM^3 10*3/mm3 268-060 9985/12/12 leukocyte count, blood 28.6 10^3/MM^3 10*3/mm3 4.6-10.2 [...] % 11.6-14.8 platelet count 237 10^3/MM^3 10*3/mm3 540-911 3840/12/23 leukocyte count, blood 6.9 10^3/MM^3 10*3/mm3 4.6-10.2 [...] % 11.6-14.8 platelet count 360 10^3/MM^3 10*3/mm3 600-331 9137/12/31 leukocyte count, blood 5.3 10^3/MM^3 10*3/mm3 4.6-10.2 [...] % 11.6-14.8 platelet count 222 10^3/MM^3 10*3/mm3 265-663 9644/01/07 leukocyte count, blood 11.7 10^3/MM^3 10*3/mm3 4.6-10.2 [...] % 11.6-14.8 platelet count 191 10^3/MM^3 10*3/mm3 039-740 2080/01/20 leukocyte count, blood 9.8 10^3/MM^3 10*3/mm3 4.6-10.2 [...] % 11.6-14.8 platelet count 195 10^3/MM^3 10*3/mm3 361-562 6881/01/28 leukocyte count, blood 11.9 10^3/MM^3 10*3/mm3 4.6-10.2 [...] % 11.6-14.8 platelet count 278 10^3/MM^3 10*3/mm3 577-263 7609/02/04 leukocyte count, blood 8.5 10^3/MM^3 10*3/mm3 4.6-10.2 [...] % 11.6-14.8 platelet count 326 10^3/MM^3 10*3/mm3 443-425 3926/02/10 leukocyte count, blood 2.3 10^3/MM^3 10*3/mm3 4.6-10.2 [...] % 11.6-14.8 platelet count 240 10^3/MM^3 10*3/mm3 559-565 5932/02/17 leukocyte count, blood 3.4 10^3/MM^3 10*3/mm3 4.6-10.2 [...] % 11.6-14.8 platelet count 308 10^3/MM^3 10*3/mm3 828-317 7410/02/25 leukocyte count, blood 6.6 10^3/MM^3 10*3/mm3 4.6-10.2 [...] Panel - Chemistry sodium, serum 144 mmol/L 233-107 2358/12/16 potassium, serum 4.5 mmol/L 3.5-5.2 chloride, serum 107 mmol/L 98-107 carbon dioxide, venous blood 31.4 mmol/L 21.0-32.0 blood glucose 104 mg/dL 65-110 urea nitrogen, blood 17 mg/dL 7-18 creatinine, serum 1.10 mg/dL 0.60-1.30 alanine aminotransferase (SGPT), serum 25 U/L 12-78 aspartate aminotransferase (SGOT), serum 24 U/L 15-37 calcium, serum 8.4 mg/dL 8.5-10.1 bilirubin, serum, total 0.20 mg/dL 0.00-1.00 sodium, serum 141 mmol/L 557-869 1550/01/14 potassium, serum 4.9 mmol/L 3.5-5.2 chloride, serum [...] % 11.6-14.8 platelet count 376 10^3/MM^3 10*3/mm3 016-166 3622/12/16 leukocyte count, blood 19.5 10^3/MM^3 10*3/mm3 4.6-10.2 [...] Panel - Chemistry sodium, serum 140 mmol/L 536-984 2602/07/13 potassium, serum 4.5 mmol/L 3.5-5.2 chloride, serum 106 mmol/L 98-107 carbon dioxide, venous blood 27.7 mmol/L 21.0-32.0 blood glucose 105 mg/dL 65-110 urea nitrogen, blood 14 mg/dL 7-18 creatinine, serum 0.90 mg/dL 0.60-1.30 alanine aminotransferase (SGPT), serum 29 U/L 12-78 aspartate aminotransferase (SGOT), serum 22 U/L 15-37 calcium, serum 9.4 mg/dL 8.5-10.1 bilirubin, serum, total 0.70 mg/dL 0.00-1.00 cholesterol, serum 160 mg/dL 815-012 8080/07/13 triglyceride, serum, fasting 63 mg/dL 30-200 HDL [...] Panel - Chemistry sodium, serum 141 mmol/L 354-092 9348/02/10 potassium, serum 5.2 mmol/L 3.5-5.2 chloride, serum 106 mmol/L 98-107 carbon dioxide, venous blood 27.8 mmol/L 21.0-32.0 blood glucose 111 mg/dL 65-110 urea nitrogen, blood 18 mg/dL 7-18 creatinine, serum 0.90 mg/dL 0.60-1.30 alanine aminotransferase (SGPT), serum 29 U/L 12-78 aspartate aminotransferase (SGOT), serum 21 U/L 15-37 calcium, serum 8.3 mg/dL 8.5-10.1 bilirubin, serum, total 0.40 mg/dL 0.00-1.00 Lab Report: VITAMIN D, 25-HYDROXY/28874 - Chemistry vitamin D 25-hydroxy, serum 24 ng/mL 30-100 Encounters Code Encounter Date Provider Facility CPT-63811 Level 4 Est. Patient 11:55:00 CDT Rikki GRANADOS [facility] CPT-99891 Level 3 Est. Patient 13:25:16 CDT Jennifer Chun MD [facility] CPT-09374 Level 3 Est. Patient 17:31:22 CDT Solomon Alamo MD [facility] CPT-85492 Level 3 Est. Patient 08:02:14 CDT Solomon Alamo MD [facility] CPT-81473 Level 3 Est. Patient 17:23:53 CDT Rikki GRANADOS [facility] CPT-15814 Level 3 Est. 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 Care Visit 12:19:00 CDT CPT-06305 Venipuncture Draw Fee 15:02:58 CDT
--- OUTSIDE RECORDS SUMMARY | 2018-01-19 07:24 | XMS REPORT | Clinical Summary ---
Author Author Admin, E Organization [facility] Address Unknown Phone Unavailable Allergies, Adverse Reactions, Alerts Allergy Name Reaction Description Start Date Severity Status Provider SULFA facial swelling Critical Active Jocelyne Naff ASSISTED LIVING COORDINATOR Conditions or Problems Problem Name Problem Code Onset Date Status Entry Date Provider Comment Standard Description Annotate G E R D 530.81 Active Jocelyne Naff ASSISTED LIVING COORDINATOR Esophageal reflux FH COLON CANCER V16.0 Active Jocelyne Naff ASSISTED LIVING COORDINATOR Family history of malignant neoplasm of [...] unspecified Routine gynecological examination V72.31 Active Jennifer Chnu MD PhD Routine gynecological examination Postmenopausal status [...] Provider Patient Instruction DOXYCYCLINE HYCLATE 100 MG ORAL CAPS Take one bid DOXYCYCLINE HYCLATE 31377527793 Active Jocelyne Naff ASSISTED LIVING COORDINATOR Active DOXYCYCLINE HYCLATE 100 MG CAP 1 cap by mouth twice daily DOXYCYCLINE HYCLATE 52169977224 No Longer Active Rikki Daryn GRANADOS Active VITAMIN D3 28765 UNIT CAPS 1 pill by mouth weekly, for vitamin D deficiency CHOLECALCIFEROL 71594823205 Active Jennifer Chun MD PhD Active ANASTROZOLE 1 MG ORAL TABS Take one by mouth daily ANASTROZOLE 05622240367 Active Jennifer Chun MD PhD Active ZITHROMAX 250 MG TAB 2 po today, then 1 po q days 2-5 AZITHROMYCIN 95496719156 No Longer Active Rikki GRANADOS Active MECLIZINE HCL 25 MG TABS 1 prn MECLIZINE HCL 51281946759 No Longer Active Solomon Alamo MD Active CHERATUSSIN AC SYRP prn as directed GUAIFENESIN- CODEINE SYRP 25220175193 No Longer Active Rikki Daryn GRANADOS Active MULTIVITAMINS TABS 1qd MULTIPLE VITAMIN 01990875449 No Longer Active Rikki Daryn PA Active CLARITIN 10 MG TABS 1prn LORATADINE 79436456899 Active Jocelyne Naff ASSISTED LIVING COORDINATOR Active ASPIRIN 81 MG TABS 1qd ASPIRIN 34464552495 Active Jocelyne Naff ASSISTED LIVING COORDINATOR Active OMEPRAZOLE 20 MG CPDR 1 PO Q D OMEPRAZOLE 00883567625 Active Rikki Stearns PA Active ZITHROMAX Z-CAROLYN 250 MG TABS 2x1day,1l6nayk AZITHROMYCIN 54776247030 No Longer Active Jocelyne Lovell ASSISTED LIVING COORDINATOR Active MULTIVITAMINS TABS 1qd MULTIVITAMINS TABS MULTIPLE VITAMIN Inactive CHERATUSSIN AC SYRP prn as directed CHERATUSSIN AC SYRP GUAIFENESIN-CODEINE SYRP Inactive MECLIZINE HCL 25 MG TABS 1 prn MECLIZINE HCL 25 MG TABS 391529 MECLIZINE HCL Inactive ZITHROMAX Z-CAROLYN 250 MG TABS 2x1day,0f8hwdr ZITHROMAX Z-CAROLYN 250 MG TABS 6885133 AZITHROMYCIN Inactive ZITHROMAX 250 MG TAB 2 po today, then 1 po q days 2-5 ZITHROMAX 250 MG TAB 7829408 AZITHROMYCIN Inactive DOXYCYCLINE HYCLATE 100 MG CAP 1 cap by mouth twice daily DOXYCYCLINE HYCLATE 100 MG CAP 2772622 DOXYCYCLINE HYCLATE Inactive Vital Signs Date Name Value Unit Range Description blood pressure, diastolic - 8462-4 72 mm[Hg] [...] 1.7-9.3 neutrophils as percent of blood leukocytes 19.0 % 42.2-75.2 monocytes as percent of blood leukocytes 54.1 % 1.7-9.3 lymphocytes as percent of blood leukocytes 20.4 % 20.5-51.1 erythrocyte (RBC) count 5.08 10^6/MM^3 10*6/mm3 4.04-5.48 hemoglobin, blood 15.2 g/dL 12.0-16.0 lymphocytes as percent of blood leukocytes 30.4 % 20.5-51.1 erythrocyte (RBC) count 4.35 10^6/MM^3 10*6/mm3 4.04-5.48 hemoglobin, blood 13.2 g/dL 12.0-16.0 hematocrit, blood 39.0 % 36.0-46.0 mean corpuscular volume, RBC 90 fL 80-97 mean corpuscular hemoglobin, RBC 30.5 pg 27.0-31.2 mean corpuscular hemoglobin concentration, RBC 33.9 G/DL % 31.8- 35.4 red blood cell distribution width 14.4 % 11.6-14.8 platelet count 360 10^3/MM^3 10*3/mm3 365-636 0633/12/31 leukocyte count, blood 5.3 10^3/MM^3 10*3/mm3 4.6-10.2 [...] % 11.6-14.8 platelet count 222 10^3/MM^3 10*3/mm3 393-599 3608/01/07 leukocyte count, blood 11.7 10^3/MM^3 10*3/mm3 4.6-10.2 [...] % 11.6-14.8 platelet count 191 10^3/MM^3 10*3/mm3 389-232 7052/12/10 hemoglobin, blood 14.8 g/dL 12.0-16.0 hematocrit, blood 44.3 % 36.0-46.0 mean corpuscular volume, RBC 90 fL 80-97 mean corpuscular hemoglobin, RBC 30.1 pg 27.0-31.2 mean corpuscular hemoglobin concentration, RBC 33.5 G/DL % 31.8- 35.4 red blood cell distribution width 14.5 % 11.6-14.8 platelet count 131 10^3/MM^3 10*3/mm3 493-987 5268/12/10 erythrocyte (RBC) count 4.93 10^6/MM^3 10*6/mm3 4.04-5.48 lymphocytes as percent of blood leukocytes 65.9 % 20.5-51.1 monocytes as percent of blood leukocytes 25.7 % 1.7-9.3 neutrophils as percent of blood leukocytes 1.4 % 42.2-75.2 leukocyte count, blood 1.3 10^3/MM^3 10*3/mm3 4.6-10.2 leukocyte count, blood 28.6 10^3/MM^3 10*3/mm3 4.6-10.2 hematocrit, blood 45.9 % 36.0-46.0 mean corpuscular volume, RBC 90 fL 80-97 mean corpuscular hemoglobin, RBC 29.9 pg 27.0-31.2 mean corpuscular hemoglobin concentration, RBC 33.2 G/DL % 31.8- 35.4 red blood cell distribution width 14.2 % 11.6-14.8 platelet count 237 10^3/MM^3 10*3/mm3 865-595 5376/01/20 leukocyte count, blood 9.8 10^3/MM^3 10*3/mm3 4.6-10.2 [...] % 11.6-14.8 platelet count 195 10^3/MM^3 10*3/mm3 308-415 4210/01/28 leukocyte count, blood 11.9 10^3/MM^3 10*3/mm3 4.6-10.2 [...] % 11.6-14.8 platelet count 278 10^3/MM^3 10*3/mm3 496-231 6666/02/04 leukocyte count, blood 8.5 10^3/MM^3 10*3/mm3 4.6-10.2 [...] % 11.6-14.8 platelet count 326 10^3/MM^3 10*3/mm3 529-308 8238/02/10 leukocyte count, blood 2.3 10^3/MM^3 10*3/mm3 4.6-10.2 [...] % 11.6-14.8 platelet count 240 10^3/MM^3 10*3/mm3 457-574 8592/02/17 leukocyte count, blood 3.4 10^3/MM^3 10*3/mm3 4.6-10.2 [...] % 11.6-14.8 platelet count 308 10^3/MM^3 10*3/mm3 899-504 3440/02/25 leukocyte count, blood 6.6 10^3/MM^3 10*3/mm3 4.6-10.2 [...] Panel - Chemistry sodium, serum 144 mmol/L 464-930 1949 potassium, serum 4.5 mmol/L 3.5-5.2 chloride, serum 107 mmol/L 98-107 carbon dioxide, venous blood 31.4 mmol/L 21.0-32.0 blood glucose 104 mg/dL 65-110 urea nitrogen, blood 17 mg/dL 7-18 creatinine, serum 1.10 mg/dL 0.60-1.30 alanine aminotransferase (SGPT), serum 25 U/L aspartate aminotransferase (SGOT), serum 24 U/L 15-37 calcium, serum 8.4 mg/dL 8.5-10.1 bilirubin, serum, total 0.20 mg/dL 0.00-1.00 sodium, serum 141 mmol/L 413-947 3502/01/14 potassium, serum 4.9 mmol/L 3.5-5.2 chloride, serum [...] % 11.6-14.8 platelet count 239 10^3/MM^3 10*3/mm3 173-484 8981/01/14 leukocyte count, blood 6.7 10^3/MM^3 10*3/mm3 4.6-10.2 [...] Panel - Chemistry sodium, serum 140 mmol/L 999-776 7377/07/13 potassium, serum 4.5 mmol/L 3.5-5.2 chloride, serum 106 mmol/L 98-107 carbon dioxide, venous blood 27.7 mmol/L 21.0-32.0 blood glucose 105 mg/dL 65-110 urea nitrogen, blood 14 mg/dL 7-18 creatinine, serum 0.90 mg/dL 0.60-1.30 alanine aminotransferase (SGPT), serum 29 U/L 12-78 aspartate aminotransferase (SGOT), serum 22 U/L 15-37 calcium, serum 9.4 mg/dL 8.5-10.1 bilirubin, serum, total 0.70 mg/dL 0.00-1.00 cholesterol, serum 160 mg/dL 654-284 5599/07/13 triglyceride, serum, fasting 63 mg/dL 30-200 HDL [...] Panel - Chemistry sodium, serum 141 mmol/L 904-411 1633/02/10 potassium, serum 5.2 mmol/L 3.5-5.2 chloride, serum 106 mmol/L 98-107 carbon dioxide, venous blood 27.8 mmol/L 21.0-32.0 blood glucose 111 mg/dL 65-110 urea nitrogen, blood 18 mg/dL 7-18 creatinine, serum 0.90 mg/dL 0.60-1.30 alanine aminotransferase (SGPT), serum 29 U/L 12-78 aspartate aminotransferase (SGOT), serum 21 U/L 15-37 calcium, serum 8.3 mg/dL 8.5-10.1 bilirubin, serum, total 0.40 mg/dL 0.00-1.00 Lab Report: VITAMIN D, 25-HYDROXY/56252 - Chemistry vitamin D 25-hydroxy, serum 24 ng/mL 30-100 Encounters Code Encounter Date Provider Facility CPT-03747 Level 3 Est. Patient 13:25:16 CDT Jennifer Chun MD PhD [facility] CPT-50815 Level 3 Est. Patient 17:31:22 CDT Solomon Alamo MD [facility] CPT-46925 Level 3 Est. Patient 08:02:14 CDT Solomon Alamo MD [facility] CPT-98380 Level 3 Est. Patient 17:23:53 CDT Rikki GRANADOS [facility] CPT-82612 Level 3 Est. Patient 11:22:41 CDT Darryn GRANADOS [facility] Procedures Code Procedure Name Date Entry Date Standard Description CPT-I/D I/D Abscess 09:43:13 CDT CPT-44835 Venipuncture Draw Fee 08:16:46 BRANDING SPECIALIST CPT-24131 Venipuncture Draw Fee 08:18:55 BRANDING SPECIALIST CPT-68608 Venipuncture Draw Fee 08:31:18 BRANDING SPECIALIST CPT-04569 Venipuncture Draw Fee 11:42:52 BRANDING SPECIALIST CPT-57629 Venipuncture Draw Fee 13:26:37 BRANDING SPECIALIST CPT-01872 Venipuncture Draw Fee 09:23:38 BRANDING SPECIALIST CPT-000 Give Appropriate Tetanus Booster 10:23:50 CDT CPT-48252 Bone Density 08:28:45 CDT CPT-68030 Bone Density 11:35:15 CDT CPT-PV Prev. Care Visit 12:19:00 CDT CPT-87699 Venipuncture Draw Fee 15:02:58 CDT
--- OUTSIDE RECORDS SUMMARY | 2018-01-19 07:25 | XMS REPORT | Clinical Summary ---
Author Author Admin, E Organization [facility] Address Unknown Phone Unavailable Allergies, Adverse Reactions, Alerts Allergy Name Reaction Description Start Date Severity Status Provider SULFA facial swelling Critical Active Jocelyne Naff PHOTO LAB SPECIALIST Conditions or Problems Problem Name Problem Code Onset Date Status Entry Date Provider Comment Standard Description Annotate G E R D 530.81 Active Jocelyne Naff PHOTO LAB SPECIALIST Esophageal reflux FH COLON CANCER V16.0 Active Jocelyne Naff PHOTO LAB SPECIALIST Family history of malignant neoplasm of [...] soft tissues Abscess, skin 682.9 Active Darryn GARNADOS Cellulitis and abscess of unspecified sites Cellulitis, 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 Rikki Stearns PA Cellulitis and abscess of unspecified sites Rash 782.1 Active Marta Viramontes APRN Rash and other nonspecific skin eruption Breast microcalcification ICD-793.81 Inactive Jennifer Chun MD PhD Abnormal Mammogram ICD-793.80 Inactive Jennifer Chun MD PhD Medication List Medication Instructions Start Date Stop Date Generic Name NDC Status Provider Patient Instruction MUPIROCIN 2 % EXT OINT Use in each nostril in am and pm MUPIROCIN 08078271309 Active Jocelyne Naff PHOTO LAB SPECIALIST Active CLARITIN 10 MG TABS 1prn LORATADINE 54635758065 No Longer Active Jocelyne Naff PHOTO LAB SPECIALIST Active ASPIRIN 81 MG TABS 1qd ASPIRIN 78075286969 No Longer Active Jocelyne Naff PHOTO LAB SPECIALIST Active DOXYCYCLINE HYCLATE 100 MG ORAL CAPS Take one bid DOXYCYCLINE HYCLATE 46758558264 Active Jocelyne Naff PHOTO LAB SPECIALIST Active DOXYCYCLINE HYCLATE 100 MG CAP 1 cap by mouth twice daily DOXYCYCLINE HYCLATE 63721200878 No Longer Active Rikki GRANADOS Active VITAMIN D3 89110 UNIT CAPS 1 pill by mouth weekly, for vitamin D deficiency CHOLECALCIFEROL 06497916311 Active Jennifer Chun MD PhD Active ANASTROZOLE 1 MG ORAL TABS Take one by mouth daily ANASTROZOLE 11539594831 Active Jennifer Chun MD PhD Active ZITHROMAX 250 MG TAB 2 po today, then 1 po q days 2-5 AZITHROMYCIN 03709280559 No Longer Active Rikki Harms PA Active MECLIZINE HCL 25 MG TABS 1 prn MECLIZINE HCL 67817780527 No Longer Active Solomon Alamo MD Active CHERATUSSIN AC SYRP prn as directed GUAIFENESIN- CODEINE SYRP 88924130456 No Longer Active Rikki Harms PA Active MULTIVITAMINS TABS 1qd MULTIPLE VITAMIN 31097034052 No Longer Active Rikki Harms PA Active OMEPRAZOLE 20 MG CPDR 1 PO Q D OMEPRAZOLE 01715740703 Active Rikki Harms PA Active ZITHROMAX Z-CAROLYN 250 MG TABS 2x1day,0c3xnqn AZITHROMYCIN 45687603775 No Longer Active Jocelyne Lovell PHOTO LAB SPECIALIST Active MULTIVITAMINS TABS 1qd MULTIVITAMINS TABS MULTIPLE VITAMIN Inactive CHERATUSSIN AC SYRP prn as directed CHERATUSSIN AC SYRP GUAIFENESIN-CODEINE SYRP Inactive MECLIZINE HCL 25 MG TABS 1 prn MECLIZINE HCL 25 MG TABS 541336 MECLIZINE HCL Inactive ASPIRIN 81 MG TABS 1qd ASPIRIN 81 MG TABS 341682 ASPIRIN Inactive CLARITIN 10 MG TABS 1prn CLARITIN 10 MG TABS 515509 LORATADINE Inactive ZITHROMAX Z-CAROLYN 250 MG TABS 2x1day,5i5uhdp ZITHROMAX Z-CAROLYN 250 MG TABS 4912935 AZITHROMYCIN Inactive ZITHROMAX 250 MG TAB 2 po today, then 1 po q days 2-5 ZITHROMAX 250 MG TAB 3673469 AZITHROMYCIN Inactive DOXYCYCLINE HYCLATE 100 MG CAP 1 cap by mouth twice daily DOXYCYCLINE HYCLATE 100 MG CAP 0423001 DOXYCYCLINE HYCLATE Inactive Vital Signs Date Name [...] % 11.6-14.8 platelet count 131 10^3/MM^3 10*3/mm3 963-994 0969/12/12 leukocyte count, blood 28.6 10^3/MM^3 10*3/mm3 4.6-10.2 [...] % 11.6-14.8 platelet count 237 10^3/MM^3 10*3/mm3 349-441 8989/12/23 leukocyte count, blood 6.9 10^3/MM^3 10*3/mm3 4.6-10.2 [...] % 11.6-14.8 platelet count 360 10^3/MM^3 10*3/mm3 647-256 6634/12/31 leukocyte count, blood 5.3 10^3/MM^3 10*3/mm3 4.6-10.2 [...] % 11.6-14.8 platelet count 222 10^3/MM^3 10*3/mm3 479-959 9316/01/07 leukocyte count, blood 11.7 10^3/MM^3 10*3/mm3 4.6-10.2 [...] % 11.6-14.8 platelet count 191 10^3/MM^3 10*3/mm3 024-937 5808/01/20 leukocyte count, blood 9.8 10^3/MM^3 10*3/mm3 4.6-10.2 [...] % 11.6-14.8 platelet count 195 10^3/MM^3 10*3/mm3 796-168 6250/01/28 leukocyte count, blood 11.9 10^3/MM^3 10*3/mm3 4.6-10.2 [...] % 11.6-14.8 platelet count 278 10^3/MM^3 10*3/mm3 913-915 8657/02/04 leukocyte count, blood 8.5 10^3/MM^3 10*3/mm3 4.6-10.2 [...] % 11.6-14.8 platelet count 326 10^3/MM^3 10*3/mm3 328-818 2571/02/10 leukocyte count, blood 2.3 10^3/MM^3 10*3/mm3 4.6-10.2 [...] % 11.6-14.8 platelet count 240 10^3/MM^3 10*3/mm3 662-495 6422/02/17 leukocyte count, blood 3.4 10^3/MM^3 10*3/mm3 4.6-10.2 [...] % 11.6-14.8 platelet count 308 10^3/MM^3 10*3/mm3 683-372 4958/02/25 leukocyte count, blood 6.6 10^3/MM^3 10*3/mm3 4.6-10.2 [...] Panel - Chemistry sodium, serum 144 mmol/L 667-384 9867/12/16 potassium, serum 4.5 mmol/L 3.5-5.2 chloride, serum 107 mmol/L 98-107 carbon dioxide, venous blood 31.4 mmol/L 21.0-32.0 blood glucose 104 mg/dL 65-110 urea nitrogen, blood 17 mg/dL 7-18 creatinine, serum 1.10 mg/dL 0.60-1.30 alanine aminotransferase (SGPT), serum 25 U/L 12-78 aspartate aminotransferase (SGOT), serum 24 U/L 15-37 calcium, serum 8.4 mg/dL 8.5-10.1 bilirubin, serum, total 0.20 mg/dL 0.00-1.00 sodium, serum 141 mmol/L 890-075 9494/01/14 potassium, serum 4.9 mmol/L 3.5-5.2 chloride, serum [...] % 11.6-14.8 platelet count 376 10^3/MM^3 10*3/mm3 331-118 0012/12/16 leukocyte count, blood 19.5 10^3/MM^3 10*3/mm3 4.6-10.2 [...] Panel - Chemistry sodium, serum 140 mmol/L 894-673 9908/07/13 potassium, serum 4.5 mmol/L 3.5-5.2 chloride, serum 106 mmol/L 98-107 carbon dioxide, venous blood 27.7 mmol/L 21.0-32.0 blood glucose 105 mg/dL 65-110 urea nitrogen, blood 14 mg/dL 7-18 creatinine, serum 0.90 mg/dL 0.60-1.30 alanine aminotransferase (SGPT), serum 29 U/L 12-78 aspartate aminotransferase (SGOT), serum 22 U/L 15-37 calcium, serum 9.4 mg/dL 8.5-10.1 bilirubin, serum, total 0.70 mg/dL 0.00-1.00 cholesterol, serum 160 mg/dL 899-974 1080/07/13 triglyceride, serum, fasting 63 mg/dL 30-200 HDL [...] Panel - Chemistry sodium, serum 141 mmol/L 802-788 9734/02/10 potassium, serum 5.2 mmol/L 3.5-5.2 chloride, serum 106 mmol/L 98-107 carbon dioxide, venous blood 27.8 mmol/L 21.0-32.0 blood glucose 111 mg/dL 65-110 urea nitrogen, blood 18 mg/dL 7-18 creatinine, serum 0.90 mg/dL 0.60-1.30 alanine aminotransferase (SGPT), serum 29 U/L 12-78 aspartate aminotransferase (SGOT), serum 21 U/L 15-37 calcium, serum 8.3 mg/dL 8.5-10.1 bilirubin, serum, total 0.40 mg/dL 0.00-1.00 Lab Report: VITAMIN D, 25-HYDROXY/02951 - Chemistry vitamin D 25-hydroxy, serum 24 ng/mL 30-100 Encounters Code Encounter Date Provider Facility CPT-08092 Level 2 Est. Patient 09:07:32 CDT Marta Ana M JETER [facility] CPT-56894 Level 4 Est. Patient 11:55:00 CDT Rikki GRANADOS [facility] CPT-58761 Level 3 Est. Patient 13:25:16 CDT Jennifer Chun MD PhD [facility] CPT-06144 Level 3 Est. Patient 17:31:22 CDT Solomon Alamo MD [facility] CPT-26532 Level 3 Est. Patient 08:02:14 CDT Solomon Alamo MD [facility] CPT-45461 Level 3 Est. Patient 17:23:53 CDT Rikki GRANADOS [facility] CPT-80890 Level 3 Est. Patient 11:22:41 CDT Darryn Hearn [facility] Procedures Code Procedure Name Date Entry Date Standard Description CPT-I/D I/D Abscess 09:43:13 CDT CPT-33030 Venipuncture Draw Fee 08:16:46 COURT OFFICER CPT-71709 Venipuncture Draw Fee 08:18:55 COURT OFFICER CPT-18489 Venipuncture Draw Fee 08:31:18 [address] OFFICER CPT-35976 Venipuncture Draw Fee 11:42:52 COURT OFFICER CPT-44921 Venipuncture Draw Fee 13:26:37 [address] OFFICER CPT-68824 Venipuncture Draw Fee 09:23:38 COURT OFFICER CPT-000 Give Appropriate Tetanus Booster 10:23:50 CDT CPT-22656 Bone Density 08:28:45 CDT CPT-54029 Bone Density 11:35:15 CDT CPT-PV Prev. Care Visit 12:19:00 CDT CPT-02979 Venipuncture Draw Fee 15:02:58 CDT
--- OUTSIDE RECORDS SUMMARY | 2018-01-19 07:25 | XMS REPORT | Clinical Summary ---
Author Author Admin, E Organization [facility] Address Unknown Phone Unavailable Allergies, Adverse Reactions, Alerts Allergy Name Reaction Description Start Date Severity Status Provider SULFA facial swelling Critical Active Jocelyne Naff DELIVERY RN Conditions or Problems Problem Name Problem Code Onset Date Status Entry Date Provider Comment Standard Description Annotate G E R D 530.81 Active Jocelyne Naff DELIVERY RN Esophageal reflux FH COLON CANCER V16.0 Active Jocelyne Naff DELIVERY RN Family history of malignant neoplasm of gastrointestinal [...] NDC Status Provider Patient Instruction VITAMIN D3 41004 UNIT CAPS 1 qWeek x 4 months for vitamin D deficiency 04/09 CHOLECALCIFEROL 47520338228 Active Marta Viramontes APRN Active CEPHALEXIN 500 MG ORAL CAPS Take one four times a day CEPHALEXIN 51394395083 No Longer Active Marta Viramontes APRN Active BIOTIN 1000 MCG ORAL TABS Take one daily BIOTIN 63525770517 Active Rikki Daryn GRANADOS Active VITAMIN C 500 MG ORAL CAPS Take one daily ASCORBIC ACID 21368186056 Active Rikki Harms PA Active BENZONATATE 200 MG ORAL CAPS One capsule tid. BENZONATATE 00442702361 No Longer Active Rikki Harms PA Active FLONASE ALLERGY RELIEF 50 MCG/ACT NASAL SUSP spray twice in each nostril one time daily FLUTICASONE PROPIONATE 44961775381 No Longer Active Rikki Harms PA Active TUSSIONEX PENNKINETIC ER 10-8 MG/5ML LQCR 5ml po q12hr PRN Cough HYDROCOD POLST-CHLORPHEN POLST 88576347567 No Longer Active Rikki Harms PA Active NIACIN ER 500 MG ORAL CR-TABS Take one twice daily NIACIN 93770528012 Active Rikki Harms PA Active ALBUTEROL SULFATE 0.083 % NEBU SOLN one vial per nebulizer every 4-6 hours as needed ALBUTEROL SULFATE 41660571663 No Longer Active Rikki Harms PA Active MEDROL (CAROLYN) 4 MG TABS 6 tabs on day 1, 5 tabs on day 2, 4 tabs on day 3, 3 tabs on day 4, 2 tabs on day 5, 1 tab on day 6 METHYLPREDNISOLONE 45416705787 No Longer Active Rikki Harms PA Active LEVAQUIN 750 MG TABS 1 po qd x 7 days LEVOFLOXACIN 56231917452 No Longer Active Rikki Harms PA Active LEVAQUIN 500 MG ORAL TABS Take one tablet daily LEVOFLOXACIN 08100235331 No Longer Active Rikki Harms PA Active PROAIR HFA 108 (90 BASE) MCG/ACT AERS 2 puffs four times a day as needed 2014 ALBUTEROL SULFATE 05041670566 Active Marta Yokum MUNICIPAL SERVICES MANAGER Active LEVAQUIN 500 MG TAB 1 tablet by mouth daily LEVOFLOXACIN 13382935547 No Longer Active Marta Yokum MUNICIPAL SERVICES MANAGER Active CHERATUSSIN AC 100-10 MG/5ML SYRP 1 tsp by mouth every 4 hours as needed for cough GUAIFENESIN-CODEINE 99036873542 No Longer Active Rikki Harms PA Active MUPIROCIN 2 % EXT OINT Use in each nostril in am and pm MUPIROCIN 77686854241 No Longer Active Rikki Harms PA Active DOXYCYCLINE HYCLATE 100 MG ORAL CAPS Take one bid DOXYCYCLINE HYCLATE 84075665887 No Longer Active Rikki Harms PA Active CLARITIN 10 MG TABS 1prn LORATADINE 12350524791 No Longer Active Jocelyne Naff DELIVERY RN Active ASPIRIN 81 MG TABS 1qd ASPIRIN 28565790998 No Longer Active Jocelyne Naff DELIVERY RN Active DOXYCYCLINE HYCLATE 100 MG CAP 1 cap by mouth twice daily DOXYCYCLINE HYCLATE 18410011500 No Longer Active Rikki Harms PA Active VITAMIN D3 91693 UNIT CAPS 1 pill by mouth weekly, for vitamin D deficiency CHOLECALCIFEROL 14876721109 No Longer Active Jennifer Chun MD PhD Active ANASTROZOLE 1 MG ORAL TABS Take one by mouth daily ANASTROZOLE 07670178538 Active Jennifer Chun MD PhD Active ZITHROMAX 250 MG TAB 2 po today, then 1 po q days 2-5 AZITHROMYCIN 00573539387 No Longer Active Rikki Harms PA Active MECLIZINE HCL 25 MG TABS 1 prn MECLIZINE HCL 33167504309 No Longer Active Solomon Alamo MD Active CHERATUSSIN AC SYRP prn as directed GUAIFENESIN- CODEINE SYRP 58233421052 No Longer Active Rikki Harms PA Active MULTIVITAMINS TABS 1qd MULTIPLE VITAMIN 04907045543 No Longer Active Rikki Harms PA Active OMEPRAZOLE 20 MG CPDR 1 PO Q D OMEPRAZOLE 92886591808 Active Rikki Harms PA Active ZITHROMAX Z-CAROLYN 250 MG TABS 2x1day,9z2axgl AZITHROMYCIN 17587464390 No Longer Active Jocelyne Lovell DELIVERY RN Active MULTIVITAMINS TABS 1qd MULTIVITAMINS TABS MULTIPLE VITAMIN Inactive CHERATUSSIN AC SYRP prn as directed CHERATUSSIN AC SYRP GUAIFENESIN-CODEINE SYRP Inactive MECLIZINE HCL 25 MG TABS 1 prn MECLIZINE HCL 25 MG TABS 337645 MECLIZINE HCL Inactive ASPIRIN 81 MG TABS 1qd ASPIRIN 81 MG TABS ASPIRIN Inactive CLARITIN 10 MG TABS 1prn CLARITIN 10 MG TABS 742214 LORATADINE Inactive DOXYCYCLINE HYCLATE 100 MG ORAL CAPS Take one bid DOXYCYCLINE HYCLATE 100 MG ORAL CAPS 5595629 DOXYCYCLINE HYCLATE Inactive MUPIROCIN 2 % EXT OINT Use in each nostril in am and pm MUPIROCIN 2 % EXT OINT 418418 MUPIROCIN Inactive CHERATUSSIN AC 100-10 MG/5ML SYRP 1 tsp by mouth every 4 hours as needed for cough CHERATUSSIN AC 100-10 MG/5ML SYRP 959193 GUAIFENESIN-CODEINE Inactive LEVAQUIN 500 MG TAB 1 tablet by mouth daily LEVAQUIN 500 MG TAB 938612 LEVOFLOXACIN Inactive LEVAQUIN 500 MG ORAL TABS Take one tablet daily LEVAQUIN 500 MG ORAL TABS 915226 LEVOFLOXACIN Inactive LEVAQUIN 750 MG TABS 1 po qd x 7 days LEVAQUIN 750 MG TABS 636233 LEVOFLOXACIN Inactive ALBUTEROL SULFATE 0.083 % NEBU SOLN one vial per nebulizer every 4-6 hours as needed ALBUTEROL SULFATE 0.083 % NEBU SOLN 406105 ALBUTEROL SULFATE Inactive TUSSIONEX PENNKINETIC ER 10-8 MG/5ML LQCR 5ml po q12hr PRN Cough TUSSIONEX PENNKINETIC ER 10-8 MG/5ML LQCR HYDROCOD POLST- CHLORPHEN POLST Inactive FLONASE ALLERGY RELIEF 50 MCG/ACT NASAL SUSP spray twice in each nostril one time daily FLONASE ALLERGY RELIEF 50 MCG/ACT NASAL SUSP 6203049 FLUTICASONE PROPIONATE Inactive BENZONATATE 200 MG ORAL CAPS One capsule tid. BENZONATATE 200 MG ORAL CAPS 662150 BENZONATATE Inactive CEPHALEXIN 500 MG ORAL CAPS Take one four times a day CEPHALEXIN 500 MG ORAL CAPS 587107 CEPHALEXIN Inactive ZITHROMAX Z-CAROLYN 250 MG TABS 2x1day,9p6fyvb ZITHROMAX Z-CAROLYN 250 MG TABS 4688843 AZITHROMYCIN Inactive ZITHROMAX 250 MG TAB 2 po today, then 1 po q days 2-5 ZITHROMAX 250 MG TAB 5974727 AZITHROMYCIN Inactive VITAMIN D3 14420 UNIT CAPS 1 pill by mouth weekly, for vitamin D deficiency VITAMIN D3 70666 UNIT CAPS CHOLECALCIFEROL Inactive DOXYCYCLINE HYCLATE 100 MG CAP 1 cap by mouth twice daily DOXYCYCLINE HYCLATE 100 MG CAP 5054989 DOXYCYCLINE HYCLATE Inactive MEDROL (CAROLYN) 4 MG TABS 6 tabs on day 1, 5 tabs on day 2, 4 tabs on day 3, 3 tabs on day 4, 2 tabs on day 5, 1 tab on day 6 MEDROL ( CAROLYN) 4 MG TABS 088611 METHYLPREDNISOLONE Inactive Vital Signs Date Name Value [...] Panel - Chemistry sodium, serum 142 mmol/L 569-169 1382/07/25 potassium, serum 4.0 mmol/L 3.5-5.2 chloride, serum 107 mmol/L 98-107 carbon dioxide, venous blood 31.6 mmol/L 21.0-32.0 blood glucose 108 mg/dL 65-110 calcium, serum 9.2 mg/dL 8.5-10.1 urea nitrogen, blood 20 mg/dL 7-18 creatinine, serum 0.92 mg/dL 0.55-1.30 sodium, serum 141 mmol/L 726-246 5303/11/11 potassium, serum 4.2 mmol/L 3.5-5.2 chloride, serum [...] % 11.6-14.8 platelet count 269 10^3/MM^3 10*3/mm3 025-736 0781/12/30 leukocyte count, blood 5.2 10^3/MM^3 10*3/mm3 4.6-10.2 [...] % 11.6-14.8 platelet count 200 10^3/MM^3 10*3/mm3 310-315 9791/11/18 leukocyte count, blood 8.5 10^3/MM^3 10*3/mm3 4.6-10.2 [...] % 11.6-14.8 platelet count 143 10^3/MM^3 10*3/mm3 126-598 2498/11/25 leukocyte count, blood 2.1 10^3/MM^3 10*3/mm3 4.6-10.2 [...] % 11.6-14.8 platelet count 139 10^3/MM^3 10*3/mm3 158-801 3560/12/02 leukocyte count, blood 6.7 10^3/MM^3 10*3/mm3 4.6-10.2 [...] % 11.6-14.8 platelet count 258 10^3/MM^3 10*3/mm3 431-768 7235/12/09 leukocyte count, blood 5.3 10^3/MM^3 10*3/mm3 4.6-10.2 [...] % 11.6-14.8 platelet count 240 10^3/MM^3 10*3/mm3 595-008 5883/12/16 leukocyte count, blood 3.2 10^3/MM^3 10*3/mm3 4.6-10.2 [...] % 11.6-14.8 platelet count 158 10^3/MM^3 10*3/mm3 579-058 6092/12/18 leukocyte count, blood 8.8 10^3/MM^3 10*3/mm3 4.6-10.2 [...] % 11.6-14.8 platelet count 207 10^3/MM^3 10*3/mm3 989-179 3627/12/23 leukocyte count, blood 6.2 10^3/MM^3 10*3/mm3 4.6-10.2 [...] % 11.6-14.8 platelet count 183 10^3/MM^3 10*3/mm3 142-424 Lab Report: CBC W/DIFF, Comp. Metabolic Panel - Chemistry sodium, serum 140 mmol/L 366-122 8922/01/06 carbon dioxide, venous blood 27.2 mmol/L 21.0-32.0 potassium, serum 4.1 mmol/L 3.5-5.2 chloride, serum 105 mmol/L 98-107 blood glucose 70 mg/dL 65-110 urea nitrogen, blood 25 mg/dL 7-18 creatinine, serum 0.90 mg/dL 0.55-1.30 alanine aminotransferase (SGPT), serum 28 U/L -78 aspartate aminotransferase (SGOT), serum 20 U/L 15-37 calcium, serum 8.9 mg/dL 8.5-10.1 bilirubin, serum, total 0.40 mg/dL 0.00-1.00 sodium, serum 140 mmol/L 775-249 4121/01/13 carbon dioxide, venous blood 26.4 mmol/L 21.0-32.0 potassium, serum 4.2 mmol/L 3.5-5.2 chloride, serum 104 mmol/L 98-107 blood glucose 101 mg/dL 65-110 urea nitrogen, blood 18 mg/dL 7-18 creatinine, serum 0.80 mg/dL 0.55-1.30 alanine aminotransferase (SGPT), serum 28 U/L -78 aspartate aminotransferase (SGOT), serum 24 U/L 15-37 calcium, serum 8.7 mg/dL 8.5-10.1 bilirubin, serum, total 0.50 mg/dL 0.00-1.00 sodium, serum 142 mmol/L 371-904 2815/02/04 carbon dioxide, venous blood 24.9 mmol/L 21.0-32.0 [...] % 11.6-14.8 platelet count 297 10^3/MM^3 10*3/mm3 082-911 3639/02/04 leukocyte count, blood 4.2 10^3/MM^3 10*3/mm3 4.6-10.2 [...] % 11.6-14.8 platelet count 271 10^3/MM^3 10*3/mm3 473-823 0516/01/13 leukocyte count, blood 5.2 10^3/MM^3 10*3/mm3 4.6-10.2 [...] Panel - Chemistry sodium, serum 139 mmol/L 115-190 5191/12/30 carbon dioxide, venous blood 28.2 mmol/L 21.0-32.0 potassium, serum 3.9 mmol/L 3.5-5.2 chloride, serum 105 mmol/L 98-107 blood glucose 91 mg/dL 65-110 urea nitrogen, blood 17 mg/dL 7-18 creatinine, serum 0.81 mg/dL 0.55-1.30 alanine aminotransferase (SGPT), serum 29 U/L aspartate aminotransferase (SGOT), serum 22 U/L 15-37 calcium, serum 8.8 mg/dL 8.5-10.1 bilirubin, serum, total 0.50 mg/dL 0.00-1.00 sodium, serum 143 mmol/L 352-138 2359/12/23 carbon dioxide, venous blood 24.6 mmol/L 21.0-32.0 potassium, serum 4.1 mmol/L 3.5-5.2 chloride, serum 107 mmol/L 98-107 blood glucose 98 mg/dL 65-110 urea nitrogen, blood 22 mg/dL 7-18 creatinine, serum 0.77 mg/dL 0.55-1.30 alanine aminotransferase (SGPT), serum 28 U/L aspartate aminotransferase (SGOT), serum 20 U/L 15-37 calcium, serum 8.6 mg/dL 8.5-10.1 bilirubin, serum, total 0.30 mg/dL 0.00-1.00 sodium, serum 142 mmol/L 392-374 3082/12/09 carbon dioxide, venous blood 28.5 mmol/L 21.0-32.0 potassium, serum 5.0 mmol/L 3.5-5.2 chloride, serum 109 mmol/L 98-107 blood glucose 91 mg/dL 65-110 urea nitrogen, blood 27 mg/dL 7-18 creatinine, serum 0.88 mg/dL 0.55-1.30 alanine aminotransferase (SGPT), serum 31 U/L 78 aspartate aminotransferase (SGOT), serum 18 U/L 15-37 calcium, serum 8.9 mg/dL 8.5-10.1 bilirubin, serum, total 0.40 mg/dL 0.00-1.00 sodium, serum 140 mmol/L 007-611 9174/12/16 carbon dioxide, venous blood 25.4 mmol/L 21.0-32.0 potassium, serum 4.1 mmol/L 3.5-5.2 chloride, serum 104 mmol/L 98-107 blood glucose 110 mg/dL 65-110 urea nitrogen, blood 24 mg/dL 7-18 creatinine, serum 0.87 mg/dL 0.55-1.30 alanine aminotransferase (SGPT), serum 35 U/L aspartate aminotransferase (SGOT), serum 21 U/L 15-37 calcium, serum 8.4 mg/dL 8.5-10.1 bilirubin, serum, total 0.50 mg/dL 0.00-1.00 sodium, serum 141 mmol/L 189-526 3932/12/02 carbon dioxide, venous blood 25.9 mmol/L 21.0-32.0 potassium, serum 4.7 mmol/L 3.5-5.2 chloride, serum 106 mmol/L 98-107 blood glucose 78 mg/dL 65-110 urea nitrogen, blood 24 mg/dL 7-18 creatinine, serum 0.75 mg/dL 0.55-1.30 alanine aminotransferase (SGPT), serum 31 U/L aspartate aminotransferase (SGOT), serum 20 U/L 15-37 calcium, serum 8.7 mg/dL 8.5-10.1 bilirubin, serum, total 0.30 mg/dL 0.00-1.00 sodium, serum 141 mmol/L 140-637 2317/11/18 carbon dioxide, venous blood 26.2 mmol/L 21.0-32.0 potassium, serum 4.4 mmol/L 3.5-5.2 chloride, serum 106 mmol/L 98-107 blood glucose 102 mg/dL 65-110 urea nitrogen, blood 24 mg/dL 7- creatinine, serum 0.77 mg/dL 0.55-1.30 alanine aminotransferase (SGPT), serum 30 U/L aspartate aminotransferase (SGOT), serum 15 U/L 15- calcium, serum 8.3 mg/dL 8.5-10.1 bilirubin, serum, total 0.30 mg/dL 0.00-1.00 sodium, serum 139 mmol/L 358-069 1916/11/25 carbon dioxide, venous blood 27.9 mmol/L 21.0-32.0 potassium, serum 4.7 mmol/L 3.5-5.2 chloride, serum 105 mmol/L 98-107 blood glucose 94 mg/dL 65-110 urea nitrogen, blood 21 mg/dL 7-18 creatinine, serum 0.79 mg/dL 0.55-1.30 alanine aminotransferase (SGPT), serum 40 U/L aspartate aminotransferase (SGOT), serum 22 U/L 15-37 calcium, serum 8.5 mg/dL 8.5-10.1 bilirubin, serum, total 0.80 mg/dL 0.00-1.00 Lab Report: Lipid Panel, Thyroid Stimulating Hormone (L) - Chemistry cholesterol, serum 177 mg/dL 132-446 8829/10/31 triglyceride, serum, fasting 64 mg/dL 30-200 HDL cholesterol, serum 77 mg/dL 32-96 LDL cholesterol, serum 87 mg/dL 0-130 TSH 2.13 m[iU]/mL 0.36-3.74 Lab Report: VITAMIN D, 25-HYDROXY/64246 - Chemistry vitamin D 25-hydroxy, serum 25 ng/mL 30-100 Encounters Code Encounter Date Provider Facility CPT-85944 Level 4 Est. Patient 17:31:07 CDT Marta Viramontes [facility] CPT-81854 Level 3 Est. Patient 05:11:40 CDT Rikki GRANADOS [facility] CPT-77937 Level 2 Est. Patient 14:30:43 ASSISTANT RESEARCH SCIENTIST Marta Viramontes [facility] CPT-76033 Level 4 Est. Patient 09:14:36 ASSISTANT RESEARCH SCIENTIST Rikki GRANADOS [facility] CPT-20843 Level 2 Est. Patient 09:07:32 CDT Marta Viramontes [facility] CPT-04108 Level 4 Est. Patient 11:55:00 CDT Rikki GRANADOS [facility] CPT-20802 Level 3 Est. Patient 13:25:16 CDT Jennifer Chun MD PhD [facility] CPT-10955 Level 3 Est. Patient 17:31:22 CDT Solomon Alamo MD [facility] CPT-25427 Level 3 Est. Patient 08:02:14 CDT Solomon Alamo MD [facility] CPT-79987 Level 3 Est. Patient 17:23:53 CDT Rikki GRANADOS [facility] CPT-50342 Level 3 Est. Patient 11:22:41 CDT Darryn GRANADOS [facility] Procedures Code Procedure Name Date Entry Date Standard Description CPT-81885 BMP - LAB USE ONLY 10:32:33 ASSISTANT RESEARCH SCIENTIST CPT-89679 Venipuncture Draw Fee 10:32:33 ASSISTANT RESEARCH SCIENTIST CPT-87927 Magnesium - LAB USE ONLY 09:54:30 CDT CPT-68251 TSH - LAB USE ONLY 09:54:30 CDT CPT-20578 Lipid - LAB USE ONLY 09:54:30 CDT CPT-17250 Venipuncture Draw Fee 09:54:29 CDT CPT-59706 Venipuncture Draw Fee 18:27:04 CDT CPT-18254 Chest 2V Frontal and Lat 10:57:00 ASSISTANT RESEARCH SCIENTIST CPT-69682 Venipuncture Draw Fee 10:56:59 ASSISTANT RESEARCH SCIENTIST CPT-38704 Venipuncture Draw Fee 09:22:28 ASSISTANT RESEARCH SCIENTIST CPT-19107 Chest 2V Frontal and Lat 09:22:27 ASSISTANT RESEARCH SCIENTIST CPT-I/D I/D Abscess 09:43:13 CDT CPT-93893 Venipuncture Draw Fee 08:16:46 ASSISTANT RESEARCH SCIENTIST CPT-07809 Venipuncture Draw Fee 08:18:55 ASSISTANT RESEARCH SCIENTIST CPT-15008 Venipuncture Draw Fee 08:31:18 ASSISTANT RESEARCH SCIENTIST CPT-68320 Venipuncture Draw Fee 11:42:52 ASSISTANT RESEARCH SCIENTIST CPT-20668 Venipuncture Draw Fee 13:26:37 ASSISTANT RESEARCH SCIENTIST CPT-05521 Venipuncture Draw Fee 09:23:38 ASSISTANT RESEARCH SCIENTIST CPT-000 Give Appropriate Tetanus Booster 10:23:50 CDT CPT-54606 Bone Density 08:28:45 CDT CPT-57828 Bone Density 11:35:15 CDT CPT-PV Prev. Care Visit 12:19:00 CDT CPT-17988 Venipuncture Draw Fee 15:02:58 CDT
--- OUTSIDE RECORDS SUMMARY | 2018-01-19 07:26 | XMS REPORT | Clinical Summary ---
Author Author Admin, E Organization [facility] Address Unknown Phone Unavailable Allergies, Adverse Reactions, Alerts Allergy Name Reaction Description Start Date Severity Status Provider SULFA facial swelling Critical Active Jocelyne Naff DIRECTOR PROCESS ENGINEERING Conditions or Problems Problem Name Problem Code Onset Date Status Entry Date Provider Comment Standard Description Annotate G E R D 530.81 Active Jocelyne Naff DIRECTOR PROCESS ENGINEERING Esophageal reflux FH COLON CANCER V16.0 Active Jocelyne Naff DIRECTOR PROCESS ENGINEERING Family history of malignant neoplasm of gastrointestinal [...] Ingrown toenail, left 703.0 Resolved Marta Yokum HOTEL FRONT DESK AGENT Ingrowing nail cellulitis, finger, right 681.00 Active Marta Yokum HOTEL FRONT DESK AGENT Cellulitis and abscess of finger, unspecified Cough 786.2 Active Marta Yokum HOTEL FRONT DESK AGENT Cough Breast microcalcification ICD-793.81 Inactive Jennifer [...] 5, 1 tab on day 6 METHYLPREDNISOLONE 26393507867 No Longer Active Marta Yokum HOTEL FRONT DESK AGENT Active TESSALON PERLES 100 MG CAP 1 to 2 tablets by mouth 3 times daily as needed for cough BENZONATATE 92512424683 Active Marta Yokum HOTEL FRONT DESK AGENT Active TUSSIONEX PENNKINETIC ER 10-8 MG/5ML LQCR 5ml po q12hr PRN Cough HYDROCOD POLST-CHLORPHEN POLST 36164125339 Active Marta Yokum HOTEL FRONT DESK AGENT Active KEFLEX 500 MG CAP 1 po qid CEPHALEXIN 20274406384 No Longer Active Marta Yokum HOTEL FRONT DESK AGENT Active B COMPLEX 50 ORAL CR-TABS B COMPLEX VITAMINS 46990601772 Active Marta Yokum HOTEL FRONT DESK AGENT Active TUSSIONEX PENNKINETIC ER 10-8 MG/5ML LQCR 5ml po q12hr PRN Cough HYDROCOD POLST-CHLORPHEN POLST 58274858856 No Longer Active Marta Viramontes APRN Active VITAMIN D3 32901 UNIT CAPS 1 qWeek x 4 months for vitamin D deficiency 04/09 CHOLECALCIFEROL 20516111828 Active Marta Viramontes HOTEL FRONT DESK AGENT Active CEPHALEXIN 500 MG ORAL CAPS Take one four times a day CEPHALEXIN 14991382243 No Longer Active Marta Viramontes HOTEL FRONT DESK AGENT Active BIOTIN 1000 MCG ORAL TABS Take one daily BIOTIN 93499936652 Active Rikki Harms PA Active VITAMIN C 500 MG ORAL CAPS Take one daily ASCORBIC ACID 47764799012 Active Rikki Harms PA Active BENZONATATE 200 MG ORAL CAPS One capsule tid. BENZONATATE 37844514830 No Longer Active Rikki Harms PA Active FLONASE ALLERGY RELIEF 50 MCG/ACT NASAL SUSP spray twice in each nostril one time daily FLUTICASONE PROPIONATE 56298804824 No Longer Active Rikki Harms PA Active TUSSIONEX PENNKINETIC ER 10-8 MG/5ML LQCR 5ml po q12hr PRN Cough HYDROCOD POLST-CHLORPHEN POLST 09466430710 No Longer Active Rikki Harms PA Active NIACIN ER 500 MG ORAL CR-TABS Take one twice daily NIACIN 85123373667 Active Rikki Harms PA Active ALBUTEROL SULFATE 0.083 % NEBU SOLN one vial per nebulizer every 4-6 hours as needed ALBUTEROL SULFATE 32081408527 No Longer Active Rikki Harms PA Active MEDROL (CAROLYN) 4 MG TABS 6 tabs on day 1, 5 tabs on day 2, 4 tabs on day 3, 3 tabs on day 4, 2 tabs on day 5, 1 tab on day 6 METHYLPREDNISOLONE 95808970601 No Longer Active Rikki Harms PA Active LEVAQUIN 750 MG TABS 1 po qd x 7 days LEVOFLOXACIN 24810349310 No Longer Active Rikki Harms PA Active LEVAQUIN 500 MG ORAL TABS Take one tablet daily LEVOFLOXACIN 74509323750 No Longer Active Rikki Harms PA Active PROAIR HFA 108 (90 BASE) MCG/ACT AERS 2 puffs four times a day as needed 2014 ALBUTEROL SULFATE 39790949752 Active Marta Yokum HOTEL FRONT DESK AGENT Active LEVAQUIN 500 MG TAB 1 tablet by mouth daily LEVOFLOXACIN 38876891314 No Longer Active Marta Yokum HOTEL FRONT DESK AGENT Active CHERATUSSIN AC 100-10 MG/5ML SYRP 1 tsp by mouth every 4 hours as needed for cough GUAIFENESIN-CODEINE 30266805167 No Longer Active Rikki Harms PA Active MUPIROCIN 2 % EXT OINT Use in each nostril in am and pm MUPIROCIN 89551101545 No Longer Active Rikki Harms PA Active DOXYCYCLINE HYCLATE 100 MG ORAL CAPS Take one bid DOXYCYCLINE HYCLATE 44876209549 No Longer Active Rikki Harms PA Active CLARITIN 10 MG TABS 1prn LORATADINE 88075628871 No Longer Active Jocelyne Naff DIRECTOR PROCESS ENGINEERING Active ASPIRIN 81 MG TABS 1qd ASPIRIN 01549112199 No Longer Active Jocelyne Naff DIRECTOR PROCESS ENGINEERING Active DOXYCYCLINE HYCLATE 100 MG CAP 1 cap by mouth twice daily DOXYCYCLINE HYCLATE 48769078716 No Longer Active Rikki Harms PA Active VITAMIN D3 88904 UNIT CAPS 1 pill by mouth weekly, for vitamin D deficiency CHOLECALCIFEROL 56492471960 No Longer Active Jennifer Chun MD PhD Active ANASTROZOLE 1 MG ORAL TABS Take one by mouth daily ANASTROZOLE 53223922209 Active Jennifer Chun MD PhD Active ZITHROMAX 250 MG TAB 2 po today, then 1 po q days 2-5 AZITHROMYCIN 04244014687 No Longer Active Rikki Harms PA Active MECLIZINE HCL 25 MG TABS 1 prn MECLIZINE HCL 20873478989 No Longer Active Solomon Alamo MD Active CHERATUSSIN AC SYRP prn as directed GUAIFENESIN- CODEINE SYRP 19803880840 No Longer Active Rikki Harms PA Active MULTIVITAMINS TABS 1qd MULTIPLE VITAMIN 52921091727 No Longer Active Rikki Harms PA Active OMEPRAZOLE 20 MG CPDR 1 PO Q D OMEPRAZOLE 64609690803 Active Jocelyne Naff DIRECTOR PROCESS ENGINEERING Active ZITHROMAX Z-CAROLYN 250 MG TABS 2x1day,2d9nefg AZITHROMYCIN 24171910031 No Longer Active Jocelyne Naff DIRECTOR PROCESS ENGINEERING Active MULTIVITAMINS TABS 1qd MULTIVITAMINS TABS MULTIPLE VITAMIN Inactive CHERATUSSIN AC SYRP prn as directed CHERATUSSIN AC SYRP GUAIFENESIN-CODEINE SYRP Inactive MECLIZINE HCL 25 MG TABS 1 prn MECLIZINE HCL 25 MG TABS 389542 MECLIZINE HCL Inactive ASPIRIN 81 MG TABS 1qd ASPIRIN 81 MG TABS ASPIRIN Inactive CLARITIN 10 MG TABS 1prn CLARITIN 10 MG TABS 930730 LORATADINE Inactive DOXYCYCLINE HYCLATE 100 MG ORAL CAPS Take one bid DOXYCYCLINE HYCLATE 100 MG ORAL CAPS 1007484 DOXYCYCLINE HYCLATE Inactive MUPIROCIN 2 % EXT OINT Use in each nostril in am and pm MUPIROCIN 2 % EXT OINT 325930 MUPIROCIN Inactive CHERATUSSIN AC 100-10 MG/5ML SYRP 1 tsp by mouth every 4 hours as needed for cough CHERATUSSIN AC 100-10 MG/5ML SYRP 299201 GUAIFENESIN-CODEINE Inactive LEVAQUIN 500 MG TAB 1 tablet by mouth daily LEVAQUIN 500 MG TAB 130473 LEVOFLOXACIN Inactive LEVAQUIN 500 MG ORAL TABS Take one tablet daily LEVAQUIN 500 MG ORAL TABS 173100 LEVOFLOXACIN Inactive LEVAQUIN 750 MG TABS 1 po qd x 7 days LEVAQUIN 750 MG TABS 930909 LEVOFLOXACIN Inactive ALBUTEROL SULFATE 0.083 % NEBU SOLN one vial per nebulizer every 4-6 hours as needed ALBUTEROL SULFATE 0.083 % NEBU SOLN 191542 ALBUTEROL SULFATE Inactive TUSSIONEX PENNKINETIC ER 10-8 MG/5ML LQCR 5ml po q12hr PRN Cough TUSSIONEX PENNKINETIC ER 10-8 MG/5ML LQCR HYDROCOD POLST- CHLORPHEN POLST Inactive FLONASE ALLERGY RELIEF 50 MCG/ACT NASAL SUSP spray twice in each nostril one time daily FLONASE ALLERGY RELIEF 50 MCG/ACT NASAL SUSP 3545034 FLUTICASONE PROPIONATE Inactive BENZONATATE 200 MG ORAL CAPS One capsule tid. BENZONATATE 200 MG ORAL CAPS 822836 BENZONATATE Inactive CEPHALEXIN 500 MG ORAL CAPS Take one four times a day CEPHALEXIN 500 MG ORAL CAPS 109627 CEPHALEXIN Inactive TUSSIONEX PENNKINETIC ER 10-8 MG/5ML LQCR 5ml po q12hr PRN Cough TUSSIONEX PENNKINETIC ER 10-8 MG/5ML LQCR HYDROCOD POLST- CHLORPHEN POLST Inactive ZITHROMAX Z-CAROLYN 250 MG TABS 2x1day,6x2mquo ZITHROMAX Z-CAROLYN 250 MG TABS 4832024 AZITHROMYCIN Inactive ZITHROMAX 250 MG TAB 2 po today, then 1 po q days 2-5 ZITHROMAX 250 MG TAB 7769617 AZITHROMYCIN Inactive VITAMIN D3 27437 UNIT CAPS 1 pill by mouth weekly, for vitamin D deficiency VITAMIN D3 90977 UNIT CAPS CHOLECALCIFEROL Inactive DOXYCYCLINE HYCLATE 100 MG CAP 1 cap by mouth twice daily DOXYCYCLINE HYCLATE 100 MG CAP 5020913 DOXYCYCLINE HYCLATE Inactive MEDROL (CAROLYN) 4 MG TABS 6 tabs on day 1, 5 tabs on day 2, 4 tabs on day 3, 3 tabs on day 4, 2 tabs on day 5, 1 tab on day 6 MEDROL ( CAROLYN) 4 MG TABS 542559 METHYLPREDNISOLONE Inactive KEFLEX 500 MG CAP 1 po qid KEFLEX 500 MG CAP 939177 CEPHALEXIN Inactive MEDROL (CAROLYN) 4 MG TABS 6 tabs on day 1, 5 tabs on day 2, 4 tabs on day 3, 3 tabs on day 4, 2 tabs on day 5, 1 tab on day 6 MEDROL ( CAROLYN) 4 MG TABS 974298 METHYLPREDNISOLONE Inactive Vital Signs Date Name Value [...] Panel - Chemistry sodium, serum 142 mmol/L 134-959 6476/07/25 potassium, serum 4.0 mmol/L 3.5-5.2 chloride, serum 107 mmol/L 98-107 carbon dioxide, venous blood 31.6 mmol/L 21.0-32.0 blood glucose 108 mg/dL 65-110 calcium, serum 9.2 mg/dL 8.5-10.1 urea nitrogen, blood 20 mg/dL 7-18 creatinine, serum 0.92 mg/dL 0.55-1.30 sodium, serum 141 mmol/L 346-424 6792/11/11 potassium, serum 4.2 mmol/L 3.5-5.2 chloride, serum 106 mmol/L 98-107 carbon dioxide, venous blood 29.1 mmol/L 21.0-32.0 blood glucose 95 mg/dL 65-110 calcium, serum 8.6 mg/dL 8.5-10.1 urea nitrogen, blood 23 mg/dL 7-18 creatinine, serum 0.83 mg/dL 0.55-1.30 Lab Report: Lipid Panel, Thyroid Stimulating Hormone (L) - Chemistry cholesterol, serum 177 mg/dL 288-238 8517/10/31 triglyceride, serum, fasting 64 mg/dL 30-200 HDL cholesterol, serum 77 mg/dL 32-96 LDL cholesterol, serum 87 mg/dL 0-130 TSH 2.13 m[iU]/mL 0.36-3.74 Lab Report: VITAMIN D, 25-HYDROXY/68859 - Chemistry vitamin D 25-hydroxy, serum 25 ng/mL 30-100 Encounters Code Encounter Date Provider Facility CPT-87113 Level 3 Est. Patient 16:07:34 CDT Marta Viramontes APRN [facility] CPT-11203 Level 3 Est. Patient 15:39:01 CDT Marta Viramontes [facility] CPT-13407 Level 4 Est. Patient 17:31:07 CDT Marta Viramontes [facility] CPT-01213 Level 3 Est. Patient 05:11:40 CDT Rikki GRANADOS [facility] CPT-14086 Level 2 Est. Patient 14:30:43 HAND STAPLER Marta Viramontes [facility] CPT-80139 Level 4 Est. Patient 09:14:36 HAND STAPLER Rikki GRANADOS [facility] CPT-22635 Level 2 Est. Patient 09:07:32 CDT Marta Yoluisblas [facility] CPT-47794 Level 4 Est. Patient 11:55:00 CDT Rikki GRANADOS [facility] CPT-20200 Level 3 Est. Patient 13:25:16 CDT Jennifer Chun MD PhD [facility] CPT-42203 Level 3 Est. Patient 17:31:22 CDT Solomon Alamo MD [facility] CPT-08488 Level 3 Est. Patient 08:02:14 CDT Solomon Alamo MD [facility] CPT-02331 Level 3 Est. Patient 17:23:53 CDT Rikki GRANADOS [facility] CPT-58731 Level 3 Est. Patient 11:22:41 CDT Darryn Hearn [facility] Procedures Code Procedure Name Date Entry Date Standard Description CPT-10014 Venipuncture Draw Fee 12:43:48 HAND STAPLER CPT-54926 BMP - LAB USE ONLY 10:32:33 HAND STAPLER CPT-47334 Venipuncture Draw Fee 10:32:33 HAND STAPLER CPT-81214 Magnesium - LAB USE ONLY 09:54:30 CDT CPT-15507 TSH - LAB USE ONLY 09:54:30 CDT CPT-36802 Lipid - LAB USE ONLY 09:54:30 CDT CPT-52735 Venipuncture Draw Fee 09:54:29 CDT CPT-34080 Venipuncture Draw Fee 18:27:04 CDT CPT-56486 Chest 2V Frontal and Lat 10:57:00 HAND STAPLER CPT-73914 Venipuncture Draw Fee 10:56:59 HAND STAPLER CPT-85315 Venipuncture Draw Fee 09:22:28 HAND STAPLER CPT-66088 Chest 2V Frontal and Lat 09:22:27 HAND STAPLER CPT-I/D I/D Abscess 09:43:13 CDT CPT-87919 Venipuncture Draw Fee 08:16:46 HAND STAPLER CPT-65587 Venipuncture Draw Fee 08:18:55 HAND STAPLER CPT-25570 Venipuncture Draw Fee 08:31:18 HAND STAPLER CPT-46235 Venipuncture Draw Fee 11:42:52 HAND STAPLER CPT-97083 Venipuncture Draw Fee 13:26:37 HAND STAPLER CPT-09242 Venipuncture Draw Fee 09:23:38 HAND STAPLER CPT-000 Give Appropriate Tetanus Booster 10:23:50 CDT CPT-33061 Bone Density 08:28:45 CDT CPT-01034 Bone Density 11:35:15 CDT CPT-PV Prev. Care Visit 12:19:00 CDT CPT-45960 Venipuncture Draw Fee 15:02:58 CDT
--- OUTSIDE RECORDS SUMMARY | 2018-01-19 07:27 | XMS REPORT | Clinical Summary ---
Author Author Admin, E Organization [facility] Address Unknown Phone Unavailable Allergies, Adverse Reactions, Alerts Allergy Name Reaction Description Start Date Severity Status Provider SULFA facial swelling Critical Active Jocelyne Naff TEAR DOWN MATCHER Conditions or Problems Problem Name Problem Code Onset Date Status Entry Date Provider Comment Standard Description Annotate G E R D 530.81 Active Jocelyne Naff TEAR DOWN MATCHER Esophageal reflux FH COLON CANCER V16.0 Active Jocelyne Naff TEAR DOWN MATCHER Family history of malignant neoplasm of gastrointestinal tract ESOPHAGEAL STRICTURE 530.3 Active Darryn Hearn PA Stricture and stenosis of esophagus CAROTID ARTERY STENOSIS, RIGHT 433.10 Active Rikki tSearns PA Occlusion and stenosis of carotid artery, [...] po q12hr PRN Cough HYDROCOD POLST-CHLORPHEN POLST 57608624087 Active Marta Viramontes APRN Active VITAMIN D3 71709 UNIT CAPS 1 qWeek x 4 months for vitamin D deficiency 04/09 CHOLECALCIFEROL 43099200082 Active Marta Viramontes APRN Active CEPHALEXIN 500 MG ORAL CAPS Take one four times a day CEPHALEXIN 12685815803 No Longer Active Marta Viramontes APRN Active BIOTIN 1000 MCG ORAL TABS Take one daily BIOTIN 96725858239 Active Rikki Harms PA Active VITAMIN C 500 MG ORAL CAPS Take one daily ASCORBIC ACID 40027593920 Active Rikki Harms PA Active BENZONATATE 200 MG ORAL CAPS One capsule tid. BENZONATATE 80632953754 No Longer Active Rikki Harms PA Active FLONASE ALLERGY RELIEF 50 MCG/ACT NASAL SUSP spray twice in each nostril one time daily FLUTICASONE PROPIONATE 78832793966 No Longer Active Rikki Harms PA Active TUSSIONEX PENNKINETIC ER 10-8 MG/5ML LQCR 5ml po q12hr PRN Cough HYDROCOD POLST-CHLORPHEN POLST 94276171108 No Longer Active Rikki Harms PA Active NIACIN ER 500 MG ORAL CR-TABS Take one twice daily NIACIN 13794831021 Active Rikki Harms PA Active ALBUTEROL SULFATE 0.083 % NEBU SOLN one vial per nebulizer every 4-6 hours as needed ALBUTEROL SULFATE 14443850609 No Longer Active Rikki Harms PA Active MEDROL (CAROLYN) 4 MG TABS 6 tabs on day 1, 5 tabs on day 2, 4 tabs on day 3, 3 tabs on day 4, 2 tabs on day 5, 1 tab on day 6 METHYLPREDNISOLONE 42679131679 No Longer Active Rikki Harms PA Active LEVAQUIN 750 MG TABS 1 po qd x 7 days LEVOFLOXACIN 28681284908 No Longer Active Rikki Harms PA Active LEVAQUIN 500 MG ORAL TABS Take one tablet daily LEVOFLOXACIN 26041879778 No Longer Active Rikki Harms PA Active PROAIR HFA 108 (90 BASE) MCG/ACT AERS 2 puffs four times a day as needed 2014 ALBUTEROL SULFATE 83735532779 Active Marta Yokum EYELET RIVETER Active LEVAQUIN 500 MG TAB 1 tablet by mouth daily LEVOFLOXACIN 73960332212 No Longer Active Marta Yokum EYELET RIVETER Active CHERATUSSIN AC 100-10 MG/5ML SYRP 1 tsp by mouth every 4 hours as needed for cough GUAIFENESIN-CODEINE 84691786441 No Longer Active Rikki Harms PA Active MUPIROCIN 2 % EXT OINT Use in each nostril in am and pm MUPIROCIN 45382386807 No Longer Active Rkiki Harms PA Active DOXYCYCLINE HYCLATE 100 MG ORAL CAPS Take one bid DOXYCYCLINE HYCLATE 12880211870 No Longer Active Rikki Harms PA Active CLARITIN 10 MG TABS 1prn LORATADINE 65338710021 No Longer Active Jocelyne Naff TEAR DOWN MATCHER Active ASPIRIN 81 MG TABS 1qd ASPIRIN 04678216365 No Longer Active Jocelyne Naff TEAR DOWN MATCHER Active DOXYCYCLINE HYCLATE 100 MG CAP 1 cap by mouth twice daily DOXYCYCLINE HYCLATE 34598713019 No Longer Active Rikki Harms PA Active VITAMIN D3 11361 UNIT CAPS 1 pill by mouth weekly, for vitamin D deficiency CHOLECALCIFEROL 60560823956 No Longer Active Jennifer Chun MD PhD Active ANASTROZOLE 1 MG ORAL TABS Take one by mouth daily ANASTROZOLE 70840366552 Active Jennifer Chun MD PhD Active ZITHROMAX 250 MG TAB 2 po today, then 1 po q days 2-5 AZITHROMYCIN 81866323771 No Longer Active Rikki Harms PA Active MECLIZINE HCL 25 MG TABS 1 prn MECLIZINE HCL 60066131341 No Longer Active Solomon Alamo MD Active CHERATUSSIN AC SYRP prn as directed GUAIFENESIN- CODEINE SYRP 66319811899 No Longer Active Rikki Harms PA Active MULTIVITAMINS TABS 1qd MULTIPLE VITAMIN 98602198707 No Longer Active Rikki Harms PA Active OMEPRAZOLE 20 MG CPDR 1 PO Q D OMEPRAZOLE 74459023001 Active Rikki Harms PA Active ZITHROMAX Z-CAROLYN 250 MG TABS 2x1day,0p6grvx AZITHROMYCIN 81941540824 No Longer Active Jocelyne Lovell TEAR DOWN MATCHER Active MULTIVITAMINS TABS 1qd MULTIVITAMINS TABS MULTIPLE VITAMIN Inactive CHERATUSSIN AC SYRP prn as directed CHERATUSSIN AC SYRP GUAIFENESIN-CODEINE SYRP Inactive MECLIZINE HCL 25 MG TABS 1 prn MECLIZINE HCL 25 MG TABS 478547 MECLIZINE HCL Inactive ASPIRIN 81 MG TABS 1qd ASPIRIN 81 MG TABS ASPIRIN Inactive CLARITIN 10 MG TABS 1prn CLARITIN 10 MG TABS 566250 LORATADINE Inactive DOXYCYCLINE HYCLATE 100 MG ORAL CAPS Take one bid DOXYCYCLINE HYCLATE 100 MG ORAL CAPS 3806930 DOXYCYCLINE HYCLATE Inactive MUPIROCIN 2 % EXT OINT Use in each nostril in am and pm MUPIROCIN 2 % EXT OINT 644794 MUPIROCIN Inactive CHERATUSSIN AC 100-10 MG/5ML SYRP 1 tsp by mouth every 4 hours as needed for cough CHERATUSSIN AC 100-10 MG/5ML SYRP 505219 GUAIFENESIN-CODEINE Inactive LEVAQUIN 500 MG TAB 1 tablet by mouth daily LEVAQUIN 500 MG TAB 989840 LEVOFLOXACIN Inactive LEVAQUIN 500 MG ORAL TABS Take one tablet daily LEVAQUIN 500 MG ORAL TABS 964831 LEVOFLOXACIN Inactive LEVAQUIN 750 MG TABS 1 po qd x 7 days LEVAQUIN 750 MG TABS 963791 LEVOFLOXACIN Inactive ALBUTEROL SULFATE 0.083 % NEBU SOLN one vial per nebulizer every 4-6 hours as needed ALBUTEROL SULFATE 0.083 % NEBU SOLN 478162 ALBUTEROL SULFATE Inactive TUSSIONEX PENNKINETIC ER 10-8 MG/5ML LQCR 5ml po q12hr PRN Cough TUSSIONEX PENNKINETIC ER 10-8 MG/5ML LQCR HYDROCOD POLST- CHLORPHEN POLST Inactive FLONASE ALLERGY RELIEF 50 MCG/ACT NASAL SUSP spray twice in each nostril one time daily FLONASE ALLERGY RELIEF 50 MCG/ACT NASAL SUSP 5871813 FLUTICASONE PROPIONATE Inactive BENZONATATE 200 MG ORAL CAPS One capsule tid. BENZONATATE 200 MG ORAL CAPS 898624 BENZONATATE Inactive CEPHALEXIN 500 MG ORAL CAPS Take one four times a day CEPHALEXIN 500 MG ORAL CAPS 131796 CEPHALEXIN Inactive ZITHROMAX Z-CAROLYN 250 MG TABS 2x1day,3w2sgxd ZITHROMAX Z-CAROLYN 250 MG TABS 1661115 AZITHROMYCIN Inactive ZITHROMAX 250 MG TAB 2 po today, then 1 po q days 2-5 ZITHROMAX 250 MG TAB 1186350 AZITHROMYCIN Inactive VITAMIN D3 86009 UNIT CAPS 1 pill by mouth weekly, for vitamin D deficiency VITAMIN D3 21687 UNIT CAPS CHOLECALCIFEROL Inactive DOXYCYCLINE HYCLATE 100 MG CAP 1 cap by mouth twice daily DOXYCYCLINE HYCLATE 100 MG CAP 9997160 DOXYCYCLINE HYCLATE Inactive MEDROL (CAROLYN) 4 MG TABS 6 tabs on day 1, 5 tabs on day 2, 4 tabs on day 3, 3 tabs on day 4, 2 tabs on day 5, 1 tab on day 6 MEDROL ( CAROLYN) 4 MG TABS 573457 METHYLPREDNISOLONE Inactive Vital Signs Date Name Value [...] Panel - Chemistry sodium, serum 142 mmol/L 930-636 2209/07/25 potassium, serum 4.0 mmol/L 3.5-5.2 chloride, serum 107 mmol/L 98-107 carbon dioxide, venous blood 31.6 mmol/L 21.0-32.0 blood glucose 108 mg/dL 65-110 calcium, serum 9.2 mg/dL 8.5-10.1 urea nitrogen, blood 20 mg/dL 7-18 creatinine, serum 0.92 mg/dL 0.55-1.30 sodium, serum 141 mmol/L 029-748 8313/11/11 potassium, serum 4.2 mmol/L 3.5-5.2 chloride, serum [...] Panel - Chemistry sodium, serum 142 mmol/L 633-268 1495/02/04 carbon dioxide, venous blood 24.9 mmol/L 21.0-32.0 [...] % 11.6-14.8 platelet count 271 10^3/MM^3 10*3/mm3 142-424 Lab Report: Lipid Panel, Thyroid Stimulating Hormone (L) - Chemistry cholesterol, serum 177 mg/dL 544-389 9495/10/31 triglyceride, serum, fasting 64 mg/dL 30-200 HDL cholesterol, serum 77 mg/dL 32-96 LDL cholesterol, serum 87 mg/dL 0-130 TSH 2.13 m[iU]/mL 0.36-3.74 Lab Report: VITAMIN D, 25-HYDROXY/25206 - Chemistry vitamin D 25-hydroxy, serum 25 ng/mL 30-100 Encounters Code Encounter Date Provider Facility CPT-85039 Level 4 Est. Patient 17:31:07 CDT Marta Viramontes [facility] [place] CPT-65831 Level 3 Est. Patient 05:11:40 CDT Rikki GRANADOS [facility] [place] CPT-09031 Level 2 Est. Patient 14:30:43 CIRCLE CUTTING SAW OPERATOR Marta Viramontes [facility] [place] [facility] CPT-81429 Level 4 Est. Patient 09:14:36 CIRCLE CUTTING SAW OPERATOR Rikki GRANADOS [facility] [place] [facility] CPT-42197 Level 2 Est. Patient 09:07:32 CDT Marta Viramontes [facility] [place] [facility] CPT-85211 Level 4 Est. Patient 11:55:00 CDT Rikki GRANADOS [facility] [place] [facility] CPT-64186 Level 3 Est. Patient 13:25:16 CDT Jennifer Chun MD PhD [facility] CPT-50834 Level 3 Est. Patient 17:31:22 CDT Solomon Alamo MD [facility] CPT-10197 Level 3 Est. Patient 08:02:14 CDT Solomon Alamo MD [facility] CPT-24853 Level 3 Est. Patient 17:23:53 CDT Rikki Stearns [facility] CPT-07213 Level 3 Est. Patient 11:22:41 CDT Darryn Hearn [facility] Procedures Code Procedure Name Date Entry Date Standard Description CPT-45301 BMP - LAB USE ONLY 10:32:33 CIRCLE CUTTING SAW OPERATOR CPT-32264 Venipuncture Draw Fee 10:32:33 CIRCLE CUTTING SAW OPERATOR CPT-45826 Magnesium - LAB USE ONLY 09:54:30 CDT CPT-83825 TSH - LAB USE ONLY 09:54:30 CDT CPT-75643 Lipid - LAB USE ONLY 09:54:30 CDT CPT-59164 Venipuncture Draw Fee 09:54:29 CDT CPT-49682 Venipuncture Draw Fee 18:27:04 CDT CPT-40909 Chest 2V Frontal and Lat 10:57:00 CIRCLE CUTTING SAW OPERATOR CPT-69748 Venipuncture Draw Fee 10:56:59 CIRCLE CUTTING SAW OPERATOR CPT-44465 Venipuncture Draw Fee 09:22:28 CIRCLE CUTTING SAW OPERATOR CPT-65032 Chest 2V Frontal and Lat 09:22:27 CIRCLE CUTTING SAW OPERATOR CPT-I/D I/D Abscess 09:43:13 CDT CPT-19287 Venipuncture Draw Fee 08:16:46 CIRCLE CUTTING SAW OPERATOR CPT-27518 Venipuncture Draw Fee 08:18:55 CIRCLE CUTTING SAW OPERATOR CPT-31374 Venipuncture Draw Fee 08:31:18 CIRCLE CUTTING SAW OPERATOR CPT-09532 Venipuncture Draw Fee 11:42:52 CIRCLE CUTTING SAW OPERATOR CPT-92646 Venipuncture Draw Fee 13:26:37 CIRCLE CUTTING SAW OPERATOR CPT-25022 Venipuncture Draw Fee 09:23:38 CIRCLE CUTTING SAW OPERATOR CPT-000 Give Appropriate Tetanus Booster 10:23:50 CDT CPT-31679 Bone Density 08:28:45 CDT CPT-93747 Bone Density 11:35:15 CDT CPT-PV Prev. Care Visit 12:19:00 CDT CPT-20378 Venipuncture Draw Fee 15:02:58 CDT
--- OUTSIDE RECORDS SUMMARY | 2018-01-19 07:27 | XMS REPORT | Clinical Summary ---
Author Author Admin, E Organization [facility] Address Unknown Phone Unavailable Allergies, Adverse Reactions, Alerts Allergy Name Reaction Description Start Date Severity Status Provider SULFA facial swelling Critical Active Jocelyne Naff MARKETING BUDGET ANALYST Conditions or Problems Problem Name Problem Code Onset Date Status Entry Date Provider Comment Standard Description Annotate G E R D 530.81 Active Jocelyne Naff MARKETING BUDGET ANALYST Esophageal reflux FH COLON CANCER V16.0 Active Jocelyne Naff MARKETING BUDGET ANALYST Family history of malignant neoplasm of [...] ORAL TABS Take one tablet daily LEVOFLOXACIN 15447207166 Active Rikki GRANADOS Active PROAIR HFA 108 (90 BASE) MCG/ACT AERS 2 puffs four times a day as needed 2014 ALBUTEROL SULFATE 15299339088 Active Marta Viramontes ORDERLY Active TUSSIONEX PENNKINETIC ER 10-8 MG/5ML LQCR 5ml po q12hr PRN Cough HYDROCOD POLST-CHLORPHEN POLST 48832412139 Active Rikki Harms PA Active LEVAQUIN 750 MG TABS 1 po qd x 7 days LEVOFLOXACIN 20160452888 Active Marta Viramontes ORDERLY Active FLONASE ALLERGY RELIEF 50 MCG/ACT NASAL SUSP spray twice in each nostril one time daily FLUTICASONE PROPIONATE 92927872251 Active Marta Maganaum ORDERLY Active LEVAQUIN 500 MG TAB 1 tablet by mouth daily LEVOFLOXACIN 49925995283 No Longer Active Marta Viramontes ORDERLY Active BENZONATATE 200 MG ORAL CAPS One capsule tid. BENZONATATE 67928737105 Active Marta Vriamontes ORDERLY Active CHERATUSSIN AC 100-10 MG/5ML SYRP 1 tsp by mouth every 4 hours as needed for cough GUAIFENESIN-CODEINE 51387515939 No Longer Active Rikki Harms PA Active MUPIROCIN 2 % EXT OINT Use in each nostril in am and pm MUPIROCIN 47554077687 No Longer Active Rikki Harms PA Active DOXYCYCLINE HYCLATE 100 MG ORAL CAPS Take one bid DOXYCYCLINE HYCLATE 71360166224 No Longer Active Rikki Harms PA Active CLARITIN 10 MG TABS 1prn LORATADINE 31670936648 No Longer Active Jocelyne Naff MARKETING BUDGET ANALYST Active ASPIRIN 81 MG TABS 1qd ASPIRIN 52682445213 No Longer Active Jocelyne Naff MARKETING BUDGET ANALYST Active DOXYCYCLINE HYCLATE 100 MG CAP 1 cap by mouth twice daily DOXYCYCLINE HYCLATE 79553340878 No Longer Active Rikki Harms PA Active VITAMIN D3 03363 UNIT CAPS 1 pill by mouth weekly, for vitamin D deficiency CHOLECALCIFEROL 84150449452 No Longer Active Jennifer Chun MD PhD Active ANASTROZOLE 1 MG ORAL TABS Take one by mouth daily ANASTROZOLE 85142535252 Active Jennifer Chun MD PhD Active ZITHROMAX 250 MG TAB 2 po today, then 1 po q days 2-5 AZITHROMYCIN 46916257638 No Longer Active Rikki Harms PA Active MECLIZINE HCL 25 MG TABS 1 prn MECLIZINE HCL 70605906700 No Longer Active Solomon Alamo MD Active CHERATUSSIN AC SYRP prn as directed GUAIFENESIN- CODEINE SYRP 95787958615 No Longer Active Rikki Harms PA Active MULTIVITAMINS TABS 1qd MULTIPLE VITAMIN 32758500664 No Longer Active Rikki Harms PA Active OMEPRAZOLE 20 MG CPDR 1 PO Q D OMEPRAZOLE 91576071158 Active Rikki Harms PA Active ZITHROMAX Z-CAROLYN 250 MG TABS 2x1day,7h1qqpn AZITHROMYCIN 81893562732 No Longer Active Jocelynederic Tsaif MARKETING BUDGET ANALYST Active MULTIVITAMINS TABS 1qd MULTIVITAMINS TABS MULTIPLE VITAMIN Inactive CHERATUSSIN AC SYRP prn as directed CHERATUSSIN AC SYRP GUAIFENESIN-CODEINE SYRP Inactive MECLIZINE HCL 25 MG TABS 1 prn MECLIZINE HCL 25 MG TABS 952155 MECLIZINE HCL Inactive ASPIRIN 81 MG TABS 1qd ASPIRIN 81 MG TABS 749750 ASPIRIN Inactive CLARITIN 10 MG TABS 1prn CLARITIN 10 MG TABS 245574 LORATADINE Inactive DOXYCYCLINE HYCLATE 100 MG ORAL CAPS Take one bid DOXYCYCLINE HYCLATE 100 MG ORAL CAPS 4367549 DOXYCYCLINE HYCLATE Inactive MUPIROCIN 2 % EXT OINT Use in each nostril in am and pm MUPIROCIN 2 % EXT OINT 048050 MUPIROCIN Inactive CHERATUSSIN AC 100-10 MG/5ML SYRP 1 tsp by mouth every 4 hours as needed for cough CHERATUSSIN AC 100-10 MG/5ML SYRP 386711 GUAIFENESIN-CODEINE Inactive LEVAQUIN 500 MG TAB 1 tablet by mouth daily LEVAQUIN 500 MG TAB 877990 LEVOFLOXACIN Inactive ZITHROMAX Z-CAROLYN 250 MG TABS 2x1day,8s0debf ZITHROMAX Z-CAROLYN 250 MG TABS 4593336 AZITHROMYCIN Inactive ZITHROMAX 250 MG TAB 2 po today, then 1 po q days 2-5 ZITHROMAX 250 MG TAB 5181274 AZITHROMYCIN Inactive VITAMIN D3 03460 UNIT CAPS 1 pill by mouth weekly, for vitamin D deficiency VITAMIN D3 95954 UNIT CAPS CHOLECALCIFEROL Inactive DOXYCYCLINE HYCLATE 100 MG CAP 1 cap by mouth twice daily DOXYCYCLINE HYCLATE 100 MG CAP 2367978 DOXYCYCLINE HYCLATE Inactive Vital Signs Date Name [...] CBC W/DIFF - Hematology leukocyte count, blood 3.4 10^3/MM^3 10*3/mm3 4.6-10.2 [...] % 11.6-14.8 platelet count 308 10^3/MM^3 10*3/mm3 091-482 7096/02/25 leukocyte count, blood 6.6 10^3/MM^3 10*3/mm3 4.6-10.2 [...] % 11.6-14.8 platelet count 433 10^3/MM^3 10*3/mm3 953-010 9015/02/10 leukocyte count, blood 2.3 10^3/MM^3 10*3/mm3 4.6-10.2 [...] % 11.6-14.8 platelet count 240 10^3/MM^3 10*3/mm3 083-492 2855/11/11 leukocyte count, blood 2.0 10^3/MM^3 10*3/mm3 4.6-10.2 [...] % 11.6-14.8 platelet count 203 10^3/MM^3 10*3/mm3 443-203 4346/11/18 leukocyte count, blood 8.5 10^3/MM^3 10*3/mm3 4.6-10.2 [...] % 11.6-14.8 platelet count 143 10^3/MM^3 10*3/mm3 874-684 8661/11/25 leukocyte count, blood 2.1 10^3/MM^3 10*3/mm3 4.6-10.2 [...] % 11.6-14.8 platelet count 139 10^3/MM^3 10*3/mm3 542-476 1845/12/02 leukocyte count, blood 6.7 10^3/MM^3 10*3/mm3 4.6-10.2 [...] % 11.6-14.8 platelet count 258 10^3/MM^3 10*3/mm3 544-652 6312/12/09 leukocyte count, blood 5.3 10^3/MM^3 10*3/mm3 4.6-10.2 [...] % 11.6-14.8 platelet count 240 10^3/MM^3 10*3/mm3 323-905 2803/12/16 leukocyte count, blood 3.2 10^3/MM^3 10*3/mm3 4.6-10.2 [...] % 11.6-14.8 platelet count 158 10^3/MM^3 10*3/mm3 542-402 5893/12/18 leukocyte count, blood 8.8 10^3/MM^3 10*3/mm3 4.6-10.2 [...] % 11.6-14.8 platelet count 207 10^3/MM^3 10*3/mm3 111-979 2742/12/23 leukocyte count, blood 6.2 10^3/MM^3 10*3/mm3 4.6-10.2 [...] % 11.6-14.8 platelet count 183 10^3/MM^3 10*3/mm3 632-166 0391/12/30 leukocyte count, blood 5.2 10^3/MM^3 10*3/mm3 4.6-10.2 [...] Panel - Chemistry sodium, serum 140 mmol/L 361-420 9389/01/06 carbon dioxide, venous blood 27.2 mmol/L 21.0-32.0 potassium, serum 4.1 mmol/L 3.5-5.2 chloride, serum 105 mmol/L 98-107 blood glucose 70 mg/dL 65-110 urea nitrogen, blood 25 mg/dL 7-18 creatinine, serum 0.90 mg/dL 0.55-1.30 alanine aminotransferase (SGPT), serum 28 U/L 12-78 aspartate aminotransferase (SGOT), serum 20 U/L 15-37 calcium, serum 8.9 mg/dL 8.5-10.1 bilirubin, serum, total 0.40 mg/dL 0.00-1.00 sodium, serum 138 mmol/L 409-014 9582/11/04 carbon dioxide, venous blood 27.7 mmol/L 21.0-32.0 potassium, serum 4.9 mmol/L 3.5-5.2 chloride, serum 104 mmol/L 98-107 blood glucose 92 mg/dL 65-110 urea nitrogen, blood 24 mg/dL 7-18 creatinine, serum 0.95 mg/dL 0.55-1.30 alanine aminotransferase (SGPT), serum 34 U/L -78 aspartate aminotransferase (SGOT), serum 23 U/L 15-37 calcium, serum 8.9 mg/dL 8.5-10.1 bilirubin, serum, total 0.70 mg/dL 0.00-1.00 sodium, serum 140 mmol/L 883-005 4668/01/13 carbon dioxide, venous blood 26.4 mmol/L 21.0-32.0 potassium, serum 4.2 mmol/L 3.5-5.2 chloride, serum 104 mmol/L 98-107 blood glucose 101 mg/dL 65-110 urea nitrogen, blood 18 mg/dL 7-18 creatinine, serum 0.80 mg/dL 0.55-1.30 alanine aminotransferase (SGPT), serum 28 U/L -78 aspartate aminotransferase (SGOT), serum 24 U/L 15-37 calcium, serum 8.7 mg/dL 8.5-10.1 bilirubin, serum, total 0.50 mg/dL 0.00-1.00 sodium, serum 142 mmol/L 730-356 5329/02/04 carbon dioxide, venous blood 24.9 mmol/L 21.0-32.0 [...] % 11.6-14.8 platelet count 297 10^3/MM^3 10*3/mm3 513-065 1386/02/04 leukocyte count, blood 4.2 10^3/MM^3 10*3/mm3 4.6-10.2 [...] % 11.6-14.8 platelet count 271 10^3/MM^3 10*3/mm3 398-489 1013/11/04 leukocyte count, blood 3.8 10^3/MM^3 10*3/mm3 4.6-10.2 [...] % 11.6-14.8 platelet count 216 10^3/MM^3 10*3/mm3 048-894 3916/01/13 leukocyte count, blood 5.2 10^3/MM^3 10*3/mm3 4.6-10.2 [...] Panel - Chemistry sodium, serum 140 mmol/L 222-571 7316/07/13 potassium, serum 4.5 mmol/L 3.5-5.2 chloride, serum 106 mmol/L 98-107 carbon dioxide, venous blood 27.7 mmol/L 21.0-32.0 blood glucose 105 mg/dL 65-110 urea nitrogen, blood 14 mg/dL 7-18 creatinine, serum 0.90 mg/dL 0.60-1.30 alanine aminotransferase (SGPT), serum 29 U/L 12-78 aspartate aminotransferase (SGOT), serum 22 U/L 15-37 calcium, serum 9.4 mg/dL 8.5-10.1 bilirubin, serum, total 0.70 mg/dL 0.00-1.00 cholesterol, serum 160 mg/dL 023-570 7022/07/13 triglyceride, serum, fasting 63 mg/dL 30-200 HDL [...] Panel - Chemistry sodium, serum 141 mmol/L 220-316 3448/02/10 potassium, serum 5.2 mmol/L 3.5-5.2 chloride, serum 106 mmol/L 98-107 carbon dioxide, venous blood 27.8 mmol/L 21.0-32.0 blood glucose 111 mg/dL 65-110 urea nitrogen, blood 18 mg/dL 7-18 creatinine, serum 0.90 mg/dL 0.60-1.30 alanine aminotransferase (SGPT), serum 29 U/L 12-78 aspartate aminotransferase (SGOT), serum 21 U/L 15-37 calcium, serum 8.3 mg/dL 8.5-10.1 bilirubin, serum, total 0.40 mg/dL 0.00-1.00 sodium, serum 141 mmol/L 841-463 8046/11/11 carbon dioxide, venous blood 26.8 mmol/L 21.0-32.0 potassium, serum 4.2 mmol/L 3.5-5.2 chloride, serum 106 mmol/L 98-107 blood glucose 95 mg/dL 65-110 urea nitrogen, blood 18 mg/dL 7-18 creatinine, serum 0.70 mg/dL 0.55-1.30 alanine aminotransferase (SGPT), serum 33 U/L 12-78 aspartate aminotransferase (SGOT), serum 22 U/L -37 calcium, serum 8.5 mg/dL 8.5-10.1 bilirubin, serum, total 0.30 mg/dL 0.00-1.00 sodium, serum 141 mmol/L 867-168 4594/11/18 carbon dioxide, venous blood 26.2 mmol/L 21.0-32.0 potassium, serum 4.4 mmol/L 3.5-5.2 chloride, serum 106 mmol/L 98-107 blood glucose 102 mg/dL 65-110 urea nitrogen, blood 24 mg/dL 7-18 creatinine, serum 0.77 mg/dL 0.55-1.30 alanine aminotransferase (SGPT), serum 30 U/L 12-78 aspartate aminotransferase (SGOT), serum 15 U/L 15-37 calcium, serum 8.3 mg/dL 8.5-10.1 bilirubin, serum, total 0.30 mg/dL 0.00-1.00 sodium, serum 139 mmol/L 042-940 9103/11/25 carbon dioxide, venous blood 27.9 mmol/L 21.0-32.0 potassium, serum 4.7 mmol/L 3.5-5.2 chloride, serum 105 mmol/L 98-107 blood glucose 94 mg/dL 65-110 urea nitrogen, blood 21 mg/dL 7-18 creatinine, serum 0.79 mg/dL 0.55-1.30 alanine aminotransferase (SGPT), serum 40 U/L -78 aspartate aminotransferase (SGOT), serum 22 U/L 15-37 calcium, serum 8.5 mg/dL 8.5-10.1 bilirubin, serum, total 0.80 mg/dL 0.00-1.00 sodium, serum 139 mmol/L 885-170 6343/12/30 carbon dioxide, venous blood 28.2 mmol/L 21.0-32.0 potassium, serum 3.9 mmol/L 3.5-5.2 chloride, serum 105 mmol/L 98-107 blood glucose 91 mg/dL 65-110 urea nitrogen, blood 17 mg/dL 7-18 creatinine, serum 0.81 mg/dL 0.55-1.30 alanine aminotransferase (SGPT), serum 29 U/L aspartate aminotransferase (SGOT), serum 22 U/L 15-37 calcium, serum 8.8 mg/dL 8.5-10.1 bilirubin, serum, total 0.50 mg/dL 0.00-1.00 sodium, serum 143 mmol/L 399-457 6089/12/23 carbon dioxide, venous blood 24.6 mmol/L 21.0-32.0 potassium, serum 4.1 mmol/L 3.5-5.2 chloride, serum 107 mmol/L 98-107 blood glucose 98 mg/dL 65-110 urea nitrogen, blood 22 mg/dL 7-18 creatinine, serum 0.77 mg/dL 0.55-1.30 alanine aminotransferase (SGPT), serum 28 U/L aspartate aminotransferase (SGOT), serum 20 U/L 15-37 calcium, serum 8.6 mg/dL 8.5-10.1 bilirubin, serum, total 0.30 mg/dL 0.00-1.00 sodium, serum 142 mmol/L 552-043 8197/12/09 carbon dioxide, venous blood 28.5 mmol/L 21.0-32.0 potassium, serum 5.0 mmol/L 3.5-5.2 chloride, serum 109 mmol/L 98-107 blood glucose 91 mg/dL 65-110 urea nitrogen, blood 27 mg/dL 7-18 creatinine, serum 0.88 mg/dL 0.55-1.30 alanine aminotransferase (SGPT), serum 31 U/L aspartate aminotransferase (SGOT), serum 18 U/L -37 calcium, serum 8.9 mg/dL 8.5-10.1 bilirubin, serum, total 0.40 mg/dL 0.00-1.00 sodium, serum 140 mmol/L 875-617 4052/12/16 carbon dioxide, venous blood 25.4 mmol/L 21.0-32.0 potassium, serum 4.1 mmol/L 3.5-5.2 chloride, serum 104 mmol/L 98-107 blood glucose 110 mg/dL 65-110 urea nitrogen, blood 24 mg/dL 7-18 creatinine, serum 0.87 mg/dL 0.55-1.30 alanine aminotransferase (SGPT), serum 35 U/L aspartate aminotransferase (SGOT), serum 21 U/L 15-37 calcium, serum 8.4 mg/dL 8.5-10.1 bilirubin, serum, total 0.50 mg/dL 0.00-1.00 sodium, serum 141 mmol/L 442-627 3667/12/02 carbon dioxide, venous blood 25.9 mmol/L 21.0-32.0 potassium, serum 4.7 mmol/L 3.5-5.2 chloride, serum 106 mmol/L 98-107 blood glucose 78 mg/dL 65-110 urea nitrogen, blood 24 mg/dL 7-18 creatinine, serum 0.75 mg/dL 0.55-1.30 alanine aminotransferase (SGPT), serum 31 U/L 12-78 aspartate aminotransferase (SGOT), serum 20 U/L 15-37 calcium, serum 8.7 mg/dL 8.5-10.1 bilirubin, serum, total 0.30 mg/dL 0.00-1.00 Lab Report: VITAMIN D, 25-HYDROXY/92830 - Chemistry vitamin D 25-hydroxy, serum 24 ng/mL 30-100 Encounters Code Encounter Date Provider Facility CPT-88179 Level 2 Est. Patient 14:30:43 RECORDS TECHNICIAN Marta Viramontes [facility] CPT-33736 Level 4 Est. Patient 09:14:36 RECORDS TECHNICIAN Rikki GRANADOS [facility] CPT-17341 Level 2 Est. Patient 09:07:32 CDT Marta Viramontes [facility] CPT-13299 Level 4 Est. Patient 11:55:00 CDT Rikki GRANADOS [facility] CPT-19976 Level 3 Est. Patient 13:25:16 CDT Jennifer Chun MD PhD [facility] CPT-94045 Level 3 Est. Patient 17:31:22 CDT Solomon Alamo MD [facility] CPT-01165 Level 3 Est. Patient 08:02:14 CDT Solomon Alamo MD [facility] CPT-00767 Level 3 Est. Patient 17:23:53 CDT Rikki Stearns [facility] CPT-75068 Level 3 Est. Patient 11:22:41 CDT Darryn Hearn [facility] Procedures Code Procedure Name Date Entry Date Standard Description CPT-83950 Venipuncture Draw Fee 09:22:28 RECORDS TECHNICIAN CPT-22772 Chest 2V Frontal and Lat 09:22:27 RECORDS TECHNICIAN CPT-I/D I/D Abscess 09:43:13 CDT CPT-97121 Venipuncture Draw Fee 08:16:46 RECORDS TECHNICIAN CPT-54222 Venipuncture Draw Fee 08:18:55 RECORDS TECHNICIAN CPT-62861 Venipuncture Draw Fee 08:31:18 RECORDS TECHNICIAN CPT-14660 Venipuncture Draw Fee 11:42:52 RECORDS TECHNICIAN CPT-17787 Venipuncture Draw Fee 13:26:37 RECORDS TECHNICIAN CPT-74913 Venipuncture Draw Fee 09:23:38 RECORDS TECHNICIAN CPT-000 Give Appropriate Tetanus Booster 10:23:50 CDT CPT-02920 Bone Density 08:28:45 CDT CPT-45522 Bone Density 11:35:15 CDT CPT-PV Prev. Care Visit 12:19:00 CDT CPT-37493 Venipuncture Draw Fee 15:02:58 CDT
--- OUTSIDE RECORDS SUMMARY | 2018-01-19 07:28 | XMS REPORT | Clinical Summary ---
Author Author Admin, [facility] Organization [facility] Address Unknown Phone Unavailable Allergies, Adverse Reactions, Alerts Allergy Name Reaction Description Start Date Severity Status Provider SULFA facial swelling Critical Active Jocelyne Naff FILLER SHAKER Conditions or Problems Problem Name Problem Code Onset Date Status Entry Date Provider Comment Standard Description Annotate G E R D 530.81 Active Jocelyne Naff FILLER SHAKER Esophageal reflux FH COLON CANCER V16.0 Active Jocelyne Naff FILLER SHAKER Family history of malignant neoplasm of gastrointestinal [...] MCG ORAL TABS Take one daily BIOTIN 84043703360 Active Rikki Harms PA Active VITAMIN C 500 MG ORAL CAPS Take one daily ASCORBIC ACID 41675810215 Active Rikki Harms PA Active BENZONATATE 200 MG ORAL CAPS One capsule tid. BENZONATATE 27400037980 No Longer Active Rikki Harms PA Active FLONASE ALLERGY RELIEF 50 MCG/ACT NASAL SUSP spray twice in each nostril one time daily FLUTICASONE PROPIONATE 35695983674 No Longer Active Rikki Harms PA Active TUSSIONEX PENNKINETIC ER 10-8 MG/5ML LQCR 5ml po q12hr PRN Cough HYDROCOD POLST-CHLORPHEN POLST 63018945548 No Longer Active Rikki Harms PA Active NIACIN ER 500 MG ORAL CR-TABS Take one twice daily NIACIN 60091378136 Active Rikki Harms PA Active ALBUTEROL SULFATE 0.083 % JOSEE REED one vial per nebulizer every 4-6 hours as needed ALBUTEROL SULFATE 38640339523 No Longer Active Rikki Harms PA Active CEPHALEXIN 500 MG ORAL CAPS Take one four times a day CEPHALEXIN 49774996356 Active Rikki Harms PA Active MEDROL (CAROLYN) 4 MG TABS 6 tabs on day 1, 5 tabs on day 2, 4 tabs on day 3, 3 tabs on day 4, 2 tabs on day 5, 1 tab on day 6 METHYLPREDNISOLONE 10321151714 No Longer Active Rikki Harms PA Active LEVAQUIN 750 MG TABS 1 po qd x 7 days LEVOFLOXACIN 64889925376 No Longer Active Rikki Harms PA Active LEVAQUIN 500 MG ORAL TABS Take one tablet daily LEVOFLOXACIN 59731098206 No Longer Active Rikki Harms PA Active PROAIR HFA 108 (90 BASE) MCG/ACT AERS 2 puffs four times a day as needed 2014 ALBUTEROL SULFATE 92226365658 Active Marta Yokum HOSPICE MANAGER Active LEVAQUIN 500 MG TAB 1 tablet by mouth daily LEVOFLOXACIN 14503753037 No Longer Active Marta Yokum HOSPICE MANAGER Active CHERATUSSIN AC 100-10 MG/5ML SYRP 1 tsp by mouth every 4 hours as needed for cough GUAIFENESIN-CODEINE 63778405749 No Longer Active Rikki Harms PA Active MUPIROCIN 2 % EXT OINT Use in each nostril in am and pm MUPIROCIN 77248964700 No Longer Active Rikki Harms PA Active DOXYCYCLINE HYCLATE 100 MG ORAL CAPS Take one bid DOXYCYCLINE HYCLATE 92551418359 No Longer Active Rikki Harms PA Active CLARITIN 10 MG TABS 1prn LORATADINE 05618188389 No Longer Active Jocelyne Naff FILLER SHAKER Active ASPIRIN 81 MG TABS 1qd ASPIRIN 22146917153 No Longer Active Jocelyne Naff FILLER SHAKER Active DOXYCYCLINE HYCLATE 100 MG CAP 1 cap by mouth twice daily DOXYCYCLINE HYCLATE 67395621715 No Longer Active Rikki Harms PA Active VITAMIN D3 34783 UNIT CAPS 1 pill by mouth weekly, for vitamin D deficiency CHOLECALCIFEROL 30200841437 No Longer Active Jennifer Chun MD PhD Active ANASTROZOLE 1 MG ORAL TABS Take one by mouth daily ANASTROZOLE 70877305098 Active Jennifer Chun MD PhD Active ZITHROMAX 250 MG TAB 2 po today, then 1 po q days 2-5 AZITHROMYCIN 58782099069 No Longer Active Rikki Harms PA Active MECLIZINE HCL 25 MG TABS 1 prn MECLIZINE HCL 47525393287 No Longer Active Solomon Alamo MD Active CHERATUSSIN AC SYRP prn as directed GUAIFENESIN- CODEINE SYRP 28685046926 No Longer Active Rikki Harms PA Active MULTIVITAMINS TABS 1qd MULTIPLE VITAMIN 81403054802 No Longer Active Rikki Harms PA Active OMEPRAZOLE 20 MG CPDR 1 PO Q D OMEPRAZOLE 05153973718 Active Rikki Harms PA Active ZITHROMAX Z-CAROLYN 250 MG TABS 2x1day,[id number] AZITHROMYCIN 80430932778 No Longer Active Jocelyneedric Lovell FILLER SHAKER Active MULTIVITAMINS TABS 1qd MULTIVITAMINS TABS MULTIPLE VITAMIN Inactive CHERATUSSIN AC SYRP prn as directed CHERATUSSIN AC SYRP GUAIFENESIN-CODEINE SYRP Inactive MECLIZINE HCL 25 MG TABS 1 prn MECLIZINE HCL 25 MG TABS 626778 MECLIZINE HCL Inactive ASPIRIN 81 MG TABS 1qd ASPIRIN 81 MG TABS ASPIRIN Inactive CLARITIN 10 MG TABS 1prn CLARITIN 10 MG TABS 097641 LORATADINE Inactive DOXYCYCLINE HYCLATE 100 MG ORAL CAPS Take one bid DOXYCYCLINE HYCLATE 100 MG ORAL CAPS 4409450 DOXYCYCLINE HYCLATE Inactive MUPIROCIN 2 % EXT OINT Use in each nostril in am and pm MUPIROCIN 2 % EXT OINT 676357 MUPIROCIN Inactive CHERATUSSIN AC 100-10 MG/5ML SYRP 1 tsp by mouth every 4 hours as needed for cough CHERATUSSIN AC 100-10 MG/5ML SYRP 399410 GUAIFENESIN-CODEINE Inactive LEVAQUIN 500 MG TAB 1 tablet by mouth daily LEVAQUIN 500 MG TAB 203030 LEVOFLOXACIN Inactive LEVAQUIN 500 MG ORAL TABS Take one tablet daily LEVAQUIN 500 MG ORAL TABS 781319 LEVOFLOXACIN Inactive LEVAQUIN 750 MG TABS 1 po qd x 7 days LEVAQUIN 750 MG TABS 141000 LEVOFLOXACIN Inactive ALBUTEROL SULFATE 0.083 % NEBU SOLN one vial per nebulizer every 4-6 hours as needed ALBUTEROL SULFATE 0.083 % NEBU SOLN 705322 ALBUTEROL SULFATE Inactive TUSSIONEX PENNKINETIC ER 10-8 MG/5ML LQCR 5ml po q12hr PRN Cough TUSSIONEX PENNKINETIC ER 10-8 MG/5ML LQCR HYDROCOD POLST- CHLORPHEN POLST Inactive FLONASE ALLERGY RELIEF 50 MCG/ACT NASAL SUSP spray twice in each nostril one time daily FLONASE ALLERGY RELIEF 50 MCG/ACT NASAL SUSP 422103 FLUTICASONE PROPIONATE Inactive BENZONATATE 200 MG ORAL CAPS One capsule tid. BENZONATATE 200 MG ORAL CAPS 942291 BENZONATATE Inactive ZITHROMAX Z-CAROLYN 250 MG TABS 2x1day,3c4yeyf ZITHROMAX Z-CAROLYN 250 MG TABS 3022050 AZITHROMYCIN Inactive ZITHROMAX 250 MG TAB 2 po today, then 1 po q days 2-5 ZITHROMAX 250 MG TAB 4588061 AZITHROMYCIN Inactive VITAMIN D3 77398 UNIT CAPS 1 pill by mouth weekly, for vitamin D deficiency VITAMIN D3 64330 UNIT CAPS CHOLECALCIFEROL Inactive DOXYCYCLINE HYCLATE 100 MG CAP 1 cap by mouth twice daily DOXYCYCLINE HYCLATE 100 MG CAP 7781087 DOXYCYCLINE HYCLATE Inactive MEDROL (CAROLYN) 4 MG TABS 6 tabs on day 1, 5 tabs on day 2, 4 tabs on day 3, 3 tabs on day 4, 2 tabs on day 5, 1 tab on day 6 MEDROL ( CAROLYN) 4 MG TABS 428834 METHYLPREDNISOLONE Inactive Vital Signs Date Name Value [...] CBC W/DIFF - Hematology leukocyte count, blood 2.0 10^3/MM^3 10*3/mm3 4.6-10.2 [...] % 11.6-14.8 platelet count 203 10^3/MM^3 10*3/mm3 815-027 1463/11/18 leukocyte count, blood 8.5 10^3/MM^3 10*3/mm3 4.6-10.2 [...] % 11.6-14.8 platelet count 143 10^3/MM^3 10*3/mm3 380-895 3107/11/25 leukocyte count, blood 2.1 10^3/MM^3 10*3/mm3 4.6-10.2 [...] % 11.6-14.8 platelet count 139 10^3/MM^3 10*3/mm3 845-273 4182/12/02 leukocyte count, blood 6.7 10^3/MM^3 10*3/mm3 4.6-10.2 [...] % 11.6-14.8 platelet count 258 10^3/MM^3 10*3/mm3 280-808 0103/12/09 leukocyte count, blood 5.3 10^3/MM^3 10*3/mm3 4.6-10.2 [...] % 11.6-14.8 platelet count 240 10^3/MM^3 10*3/mm3 650-341 9695/12/16 leukocyte count, blood 3.2 10^3/MM^3 10*3/mm3 4.6-10.2 [...] % 11.6-14.8 platelet count 158 10^3/MM^3 10*3/mm3 130-295 9626/12/18 leukocyte count, blood 8.8 10^3/MM^3 10*3/mm3 4.6-10.2 [...] % 11.6-14.8 platelet count 207 10^3/MM^3 10*3/mm3 484-192 5426/12/23 leukocyte count, blood 6.2 10^3/MM^3 10*3/mm3 4.6-10.2 [...] % 11.6-14.8 platelet count 183 10^3/MM^3 10*3/mm3 515-423 7232/12/30 leukocyte count, blood 5.2 10^3/MM^3 10*3/mm3 4.6-10.2 [...] % 11.6-14.8 platelet count 200 10^3/MM^3 10*3/mm3 232-883 2165/03/02 leukocyte count, blood 5.1 10^3/MM^3 10*3/mm3 4.6-10.2 [...] Panel - Chemistry sodium, serum 140 mmol/L 767-774 8749/01/13 carbon dioxide, venous blood 26.4 mmol/L 21.0-32.0 potassium, serum 4.2 mmol/L 3.5-5.2 chloride, serum 104 mmol/L 98-107 blood glucose 101 mg/dL 65-110 urea nitrogen, blood 18 mg/dL 7-18 creatinine, serum 0.80 mg/dL 0.55-1.30 alanine aminotransferase (SGPT), serum 28 U/L -78 aspartate aminotransferase (SGOT), serum 24 U/L 15-37 calcium, serum 8.7 mg/dL 8.5-10.1 bilirubin, serum, total 0.50 mg/dL 0.00-1.00 sodium, serum 142 mmol/L 227-703 7578/02/04 carbon dioxide, venous blood 24.9 mmol/L 21.0-32.0 potassium, serum 4.1 mmol/L 3.5-5.2 chloride, serum 106 mmol/L 98-107 blood glucose 103 mg/dL 65-110 urea nitrogen, blood 25 mg/dL 7-18 creatinine, serum 0.83 mg/dL 0.55-1.30 alanine aminotransferase (SGPT), serum 38 U/L -78 aspartate aminotransferase (SGOT), serum 26 U/L 15-37 calcium, serum 8.7 mg/dL 8.5-10.1 bilirubin, serum, total 0.30 mg/dL 0.00-1.00 sodium, serum 140 mmol/L 422-761 6901/01/06 carbon dioxide, venous blood 27.2 mmol/L 21.0-32.0 potassium, serum 4.1 mmol/L 3.5-5.2 chloride, serum 105 mmol/L 98-107 blood glucose 70 mg/dL 65-110 urea nitrogen, blood 25 mg/dL 7-18 creatinine, serum 0.90 mg/dL 0.55-1.30 alanine aminotransferase (SGPT), serum 28 U/L 12-78 aspartate aminotransferase (SGOT), serum 20 U/L 15-37 calcium, serum 8.9 mg/dL 8.5-10.1 bilirubin, serum, total 0.40 mg/dL 0.00-1.00 sodium, serum 138 mmol/L 604-283 3679/11/04 carbon dioxide, venous blood 27.7 mmol/L 21.0-32.0 [...] % 11.6-14.8 platelet count 216 10^3/MM^3 10*3/mm3 848-545 6600/01/13 leukocyte count, blood 5.2 10^3/MM^3 10*3/mm3 4.6-10.2 [...] % 11.6-14.8 platelet count 289 10^3/MM^3 10*3/mm3 748-788 4487/01/06 leukocyte count, blood 4.1 10^3/MM^3 10*3/mm3 4.6-10.2 [...] % 11.6-14.8 platelet count 297 10^3/MM^3 10*3/mm3 456-495 7690/02/04 leukocyte count, blood 4.2 10^3/MM^3 10*3/mm3 4.6-10.2 [...] count 271 10^3/MM^3 10*3/mm3 142-424 Lab Report: Comp. Metabolic Panel - Chemistry sodium, serum 139 mmol/L 511-511 9544/12/30 carbon dioxide, venous blood 28.2 mmol/L 21.0-32.0 potassium, serum 3.9 mmol/L 3.5-5.2 chloride, serum 105 mmol/L 98-107 blood glucose 91 mg/dL 65-110 urea nitrogen, blood 17 mg/dL 7-18 creatinine, serum 0.81 mg/dL 0.55-1.30 alanine aminotransferase (SGPT), serum 29 U/L - aspartate aminotransferase (SGOT), serum 22 U/L 15-37 calcium, serum 8.8 mg/dL 8.5-10.1 bilirubin, serum, total 0.50 mg/dL 0.00-1.00 sodium, serum 143 mmol/L 171-632 4527/12/23 carbon dioxide, venous blood 24.6 mmol/L 21.0-32.0 potassium, serum 4.1 mmol/L 3.5-5.2 chloride, serum 107 mmol/L 98-107 blood glucose 98 mg/dL 65-110 urea nitrogen, blood 22 mg/dL 7-18 creatinine, serum 0.77 mg/dL 0.55-1.30 alanine aminotransferase (SGPT), serum 28 U/L aspartate aminotransferase (SGOT), serum 20 U/L 15-37 calcium, serum 8.6 mg/dL 8.5-10.1 bilirubin, serum, total 0.30 mg/dL 0.00-1.00 sodium, serum 141 mmol/L 807-221 0310/11/11 carbon dioxide, venous blood 26.8 mmol/L 21.0-32.0 potassium, serum 4.2 mmol/L 3.5-5.2 chloride, serum 106 mmol/L 98-107 blood glucose 95 mg/dL 65-110 urea nitrogen, blood 18 mg/dL 7-18 creatinine, serum 0.70 mg/dL 0.55-1.30 alanine aminotransferase (SGPT), serum 33 U/L - aspartate aminotransferase (SGOT), serum 22 U/L 15- calcium, serum 8.5 mg/dL 8.5-10.1 bilirubin, serum, total 0.30 mg/dL 0.00-1.00 sodium, serum 141 mmol/L 166-443 4114/11/18 carbon dioxide, venous blood 26.2 mmol/L 21.0-32.0 potassium, serum 4.4 mmol/L 3.5-5.2 chloride, serum 106 mmol/L 98-107 blood glucose 102 mg/dL 65-110 urea nitrogen, blood 24 mg/dL 7- creatinine, serum 0.77 mg/dL 0.55-1.30 alanine aminotransferase (SGPT), serum 30 U/L aspartate aminotransferase (SGOT), serum 15 U/L - calcium, serum 8.3 mg/dL 8.5-10.1 bilirubin, serum, total 0.30 mg/dL 0.00-1.00 sodium, serum 139 mmol/L 880-048 1599/11/25 carbon dioxide, venous blood 27.9 mmol/L 21.0-32.0 potassium, serum 4.7 mmol/L 3.5-5.2 chloride, serum 105 mmol/L 98-107 blood glucose 94 mg/dL 65-110 urea nitrogen, blood 21 mg/dL 7-18 creatinine, serum 0.79 mg/dL 0.55-1.30 alanine aminotransferase (SGPT), serum 40 U/L aspartate aminotransferase (SGOT), serum 22 U/L - calcium, serum 8.5 mg/dL 8.5-10.1 bilirubin, serum, total 0.80 mg/dL 0.00-1.00 sodium, serum 142 mmol/L 245-420 3592/12/09 carbon dioxide, venous blood 28.5 mmol/L 21.0-32.0 potassium, serum 5.0 mmol/L 3.5-5.2 chloride, serum 109 mmol/L 98-107 blood glucose 91 mg/dL 65-110 urea nitrogen, blood 27 mg/dL 7-18 creatinine, serum 0.88 mg/dL 0.55-1.30 alanine aminotransferase (SGPT), serum 31 U/L aspartate aminotransferase (SGOT), serum 18 U/L - calcium, serum 8.9 mg/dL 8.5-10.1 bilirubin, serum, total 0.40 mg/dL 0.00-1.00 sodium, serum 140 mmol/L 850-205 0449/12/16 carbon dioxide, venous blood 25.4 mmol/L 21.0-32.0 potassium, serum 4.1 mmol/L 3.5-5.2 chloride, serum 104 mmol/L 98-107 blood glucose 110 mg/dL 65-110 urea nitrogen, blood 24 mg/dL 7-18 creatinine, serum 0.87 mg/dL 0.55-1.30 alanine aminotransferase (SGPT), serum 35 U/L aspartate aminotransferase (SGOT), serum 21 U/L - calcium, serum 8.4 mg/dL 8.5-10.1 bilirubin, serum, total 0.50 mg/dL 0.00-1.00 sodium, serum 141 mmol/L 995-790 6574/12/02 carbon dioxide, venous blood 25.9 mmol/L 21.0-32.0 [...] 0.00-1.00 Encounters Code Encounter Date Provider Facility CPT-60789 Level 3 Est. Patient 05:11:40 CDT Rikki GRANADOS [facility] CPT-67203 Level 2 Est. Patient 14:30:43 ACQUISITIONS ASSISTANT Marta Viramontes [facility] CPT-33129 Level 4 Est. Patient 09:14:36 ACQUISITIONS ASSISTANT Rikki GRANADOS [facility] CPT-80688 Level 2 Est. Patient 09:07:32 CDT Marta Viramontes [facility] CPT-08642 Level 4 Est. Patient 11:55:[address] [facility] CPT-63682 Level 3 Est. Patient 13:25:16 CDT Jennifer Chun MD PhD [facility] CPT-47606 Level 3 Est. Patient 17:31:22 CDT Solomon Alamo MD [facility]-74538 Level 3 Est. Patient 08:02:14 CDT Solomon Alamo MD [facility] CPT-45813 Level 3 Est. Patient 17:23:[address] [facility] CPT-60660 Level 3 Est. Patient 11:22:[address] [facility] Procedures Code Procedure Name Date Entry Date Standard Description CPT-29515 Venipuncture Draw Fee 18:27:04 CDT CPT-22678 Chest 2V Frontal and Lat 10:57:00 ACQUISITIONS ASSISTANT CPT-75277 Venipuncture Draw Fee 10:56:59 ACQUISITIONS ASSISTANT CPT-14608 Venipuncture Draw Fee 09:22:28 ACQUISITIONS ASSISTANT CPT-19489 Chest 2V Frontal and Lat 09:22:27 ACQUISITIONS ASSISTANT CPT-I/D I/D Abscess 09:43:13 CDT CPT-37728 Venipuncture Draw Fee 08:16:46 ACQUISITIONS ASSISTANT CPT-40442 Venipuncture Draw Fee 08:18:55 ACQUISITIONS ASSISTANT CPT-21720 Venipuncture Draw Fee 08:31:18 ACQUISITIONS ASSISTANT CPT-55045 Venipuncture Draw Fee 11:42:52 ACQUISITIONS ASSISTANT CPT-12112 Venipuncture Draw Fee 13:26:37 ACQUISITIONS ASSISTANT CPT-20589 Venipuncture Draw Fee 09:23:38 ACQUISITIONS ASSISTANT CPT-000 Give Appropriate Tetanus Booster 10:23:50 CDT CPT-76210 Bone Density 08:28:45 CDT CPT-49552 Bone Density 11:35:15 CDT CPT-PV Prev. Care Visit 12:19:00 CDT CPT-57383 Venipuncture Draw Fee 15:02:58 CDT
--- OUTSIDE RECORDS SUMMARY | 2018-01-19 07:29 | XMS REPORT | Clinical Summary ---
Author Author Admin, E Organization [facility] Address Unknown Phone Unavailable Allergies, Adverse Reactions, Alerts Allergy Name Reaction Description Start Date Severity Status Provider SULFA facial swelling Critical Active Jocelyne Naff AUTOMOTIVE TECHNOLOGY INSTRUCTOR Conditions or Problems Problem Name Problem Code Onset Date Status Entry Date Provider Comment Standard Description Annotate G E R D 530.81 Active Jocelyne Naff AUTOMOTIVE TECHNOLOGY INSTRUCTOR Esophageal reflux FH COLON CANCER V16.0 Active Jocelyne Naff AUTOMOTIVE TECHNOLOGY INSTRUCTOR Family history of malignant neoplasm of gastrointestinal tract ESOPHAGEAL STRICTURE 530.3 Active Darryn Hearn PA Stricture and stenosis of esophagus CAROTID ARTERY STENOSIS, RIGHT 433.10 Active Rikki Stearns PA Occlusion and stenosis of carotid artery, without mention of cerebral infarction HEALTH SCREENING V70.0 Active Rose Darnell AUTOMOTIVE TECHNOLOGY INSTRUCTOR Routine general medical examination at a health [...] a day as needed 2014 ALBUTEROL SULFATE 73101555317 Active Marta Yokum BIOLOGICAL PHOTOGRAPHER Active TUSSIONEX PENNKINETIC ER 10-8 MG/5ML LQCR 5ml po q12hr PRN Cough HYDROCOD POLST-CHLORPHEN POLST 45801228874 Active Marta Yokum BIOLOGICAL PHOTOGRAPHER Active LEVAQUIN 750 MG TABS 1 po qd x 7 days LEVOFLOXACIN 06889642589 Active Marta Viramontes BIOLOGICAL PHOTOGRAPHER Active FLONASE ALLERGY RELIEF 50 MCG/ACT NASAL SUSP spray twice in each nostril one time daily FLUTICASONE PROPIONATE 37293965406 Active Marta Maganaum BIOLOGICAL PHOTOGRAPHER Active LEVAQUIN 500 MG TAB 1 tablet by mouth daily LEVOFLOXACIN 88273667364 No Longer Active Marta Maganaum BIOLOGICAL PHOTOGRAPHER Active BENZONATATE 200 MG ORAL CAPS One capsule tid. BENZONATATE 45278296130 Active Marta Maganaum BIOLOGICAL PHOTOGRAPHER Active CHERATUSSIN AC 100-10 MG/5ML SYRP 1 tsp by mouth every 4 hours as needed for cough GUAIFENESIN-CODEINE 61385554241 No Longer Active Rikki Harms PA Active MUPIROCIN 2 % EXT OINT Use in each nostril in am and pm MUPIROCIN 17776559479 No Longer Active Rikki Harms PA Active DOXYCYCLINE HYCLATE 100 MG ORAL CAPS Take one bid DOXYCYCLINE HYCLATE 74870620622 No Longer Active Rikki Harms PA Active CLARITIN 10 MG TABS 1prn LORATADINE 64443328503 No Longer Active Jocelyne Naff AUTOMOTIVE TECHNOLOGY INSTRUCTOR Active ASPIRIN 81 MG TABS 1qd ASPIRIN 79711217500 No Longer Active Jocelyne Naff AUTOMOTIVE TECHNOLOGY INSTRUCTOR Active DOXYCYCLINE HYCLATE 100 MG CAP 1 cap by mouth twice daily DOXYCYCLINE HYCLATE 70802130286 No Longer Active Rikki Harms PA Active VITAMIN D3 44208 UNIT CAPS 1 pill by mouth weekly, for vitamin D deficiency CHOLECALCIFEROL 26600281439 No Longer Active Jennifer Chun MD PhD Active ANASTROZOLE 1 MG ORAL TABS Take one by mouth daily ANASTROZOLE 19431772442 Active Jennifer Chun MD PhD Active ZITHROMAX 250 MG TAB 2 po today, then 1 po q days 2-5 AZITHROMYCIN 49422467391 No Longer Active Rikki Harms PA Active MECLIZINE HCL 25 MG TABS 1 prn MECLIZINE HCL 49996928119 No Longer Active Solomon Alamo MD Active CHERATUSSIN AC SYRP prn as directed GUAIFENESIN- CODEINE SYRP 07087364824 No Longer Active Rikki Harms PA Active MULTIVITAMINS TABS 1qd MULTIPLE VITAMIN 41783020025 No Longer Active Rikki Harms PA Active OMEPRAZOLE 20 MG CPDR 1 PO Q D OMEPRAZOLE 88942116750 Active Marta Yokum BIOLOGICAL PHOTOGRAPHER Active ZITHROMAX Z-CAROLYN 250 MG TABS 2x1day,0b0lwok AZITHROMYCIN 50083496086 No Longer Active Jocelyne Lovell AUTOMOTIVE TECHNOLOGY INSTRUCTOR Active MULTIVITAMINS TABS 1qd MULTIVITAMINS TABS MULTIPLE VITAMIN Inactive CHERATUSSIN AC SYRP prn as directed CHERATUSSIN AC SYRP GUAIFENESIN-CODEINE SYRP Inactive MECLIZINE HCL 25 MG TABS 1 prn MECLIZINE HCL 25 MG TABS 683596 MECLIZINE HCL Inactive ASPIRIN 81 MG TABS 1qd ASPIRIN 81 MG TABS 722513 ASPIRIN Inactive CLARITIN 10 MG TABS 1prn CLARITIN 10 MG TABS 828661 LORATADINE Inactive DOXYCYCLINE HYCLATE 100 MG ORAL CAPS Take one bid DOXYCYCLINE HYCLATE 100 MG ORAL CAPS 6040826 DOXYCYCLINE HYCLATE Inactive MUPIROCIN 2 % EXT OINT Use in each nostril in am and pm MUPIROCIN 2 % EXT OINT 878807 MUPIROCIN Inactive CHERATUSSIN AC 100-10 MG/5ML SYRP 1 tsp by mouth every 4 hours as needed for cough CHERATUSSIN AC 100-10 MG/5ML SYRP 048017 GUAIFENESIN-CODEINE Inactive LEVAQUIN 500 MG TAB 1 tablet by mouth daily LEVAQUIN 500 MG TAB 732608 LEVOFLOXACIN Inactive ZITHROMAX Z-CAROLYN 250 MG TABS 2x1day,1e0bjak ZITHROMAX Z-CAROLYN 250 MG TABS 2760522 AZITHROMYCIN Inactive ZITHROMAX 250 MG TAB 2 po today, then 1 po q days 2-5 ZITHROMAX 250 MG TAB 7218353 AZITHROMYCIN Inactive VITAMIN D3 36874 UNIT CAPS 1 pill by mouth weekly, for vitamin D deficiency VITAMIN D3 84090 UNIT CAPS CHOLECALCIFEROL Inactive DOXYCYCLINE HYCLATE 100 MG CAP 1 cap by mouth twice daily DOXYCYCLINE HYCLATE 100 MG CAP 1116650 DOXYCYCLINE HYCLATE Inactive Vital Signs Date Name [...] % 11.6-14.8 platelet count 195 10^3/MM^3 10*3/mm3 193-282 5164/01/28 leukocyte count, blood 11.9 10^3/MM^3 10*3/mm3 4.6-10.2 [...] % 11.6-14.8 platelet count 278 10^3/MM^3 10*3/mm3 897-447 3200/02/04 leukocyte count, blood 8.5 10^3/MM^3 10*3/mm3 4.6-10.2 [...] % 11.6-14.8 platelet count 326 10^3/MM^3 10*3/mm3 538-636 2712/02/10 leukocyte count, blood 2.3 10^3/MM^3 10*3/mm3 4.6-10.2 [...] % 11.6-14.8 platelet count 240 10^3/MM^3 10*3/mm3 303-187 2201/02/17 leukocyte count, blood 3.4 10^3/MM^3 10*3/mm3 4.6-10.2 [...] % 11.6-14.8 platelet count 308 10^3/MM^3 10*3/mm3 556-652 3373/02/25 leukocyte count, blood 6.6 10^3/MM^3 10*3/mm3 4.6-10.2 [...] % 11.6-14.8 platelet count 433 10^3/MM^3 10*3/mm3 636-791 9671/01/07 leukocyte count, blood 11.7 10^3/MM^3 10*3/mm3 4.6-10.2 [...] % 11.6-14.8 platelet count 191 10^3/MM^3 10*3/mm3 676-944 6115/11/11 leukocyte count, blood 2.0 10^3/MM^3 10*3/mm3 4.6-10.2 [...] % 11.6-14.8 platelet count 203 10^3/MM^3 10*3/mm3 917-518 4435/11/18 leukocyte count, blood 8.5 10^3/MM^3 10*3/mm3 4.6-10.2 [...] % 11.6-14.8 platelet count 143 10^3/MM^3 10*3/mm3 985-674 5257/11/25 leukocyte count, blood 2.1 10^3/MM^3 10*3/mm3 4.6-10.2 [...] % 11.6-14.8 platelet count 139 10^3/MM^3 10*3/mm3 521-093 5470/12/02 leukocyte count, blood 6.7 10^3/MM^3 10*3/mm3 4.6-10.2 [...] % 11.6-14.8 platelet count 258 10^3/MM^3 10*3/mm3 441-886 5168/12/09 leukocyte count, blood 5.3 10^3/MM^3 10*3/mm3 4.6-10.2 [...] % 11.6-14.8 platelet count 240 10^3/MM^3 10*3/mm3 426-926 0297/12/16 leukocyte count, blood 3.2 10^3/MM^3 10*3/mm3 4.6-10.2 [...] % 11.6-14.8 platelet count 158 10^3/MM^3 10*3/mm3 683-076 7962/12/18 leukocyte count, blood 8.8 10^3/MM^3 10*3/mm3 4.6-10.2 [...] % 11.6-14.8 platelet count 207 10^3/MM^3 10*3/mm3 242-088 3351/12/23 leukocyte count, blood 6.2 10^3/MM^3 10*3/mm3 4.6-10.2 [...] % 11.6-14.8 platelet count 183 10^3/MM^3 10*3/mm3 379-393 1782/12/30 leukocyte count, blood 5.2 10^3/MM^3 10*3/mm3 4.6-10.2 [...] Panel - Chemistry sodium, serum 138 mmol/L 424-767 6906/11/04 carbon dioxide, venous blood 27.7 mmol/L 21.0-32.0 potassium, serum 4.9 mmol/L 3.5-5.2 chloride, serum 104 mmol/L 98-107 blood glucose 92 mg/dL 65-110 urea nitrogen, blood 24 mg/dL 7-18 creatinine, serum 0.95 mg/dL 0.55-1.30 alanine aminotransferase (SGPT), serum 34 U/L 12-78 aspartate aminotransferase (SGOT), serum 23 U/L 15-37 calcium, serum 8.9 mg/dL 8.5-10.1 bilirubin, serum, total 0.70 mg/dL 0.00-1.00 sodium, serum 141 mmol/L 826-088 5262/01/14 potassium, serum 4.9 mmol/L 3.5-5.2 chloride, serum [...] % 11.6-14.8 platelet count 216 10^3/MM^3 10*3/mm3 900-725 5528/01/14 leukocyte count, blood 6.7 10^3/MM^3 10*3/mm3 4.6-10.2 [...] Panel - Chemistry sodium, serum 140 mmol/L 605-997 7494/07/13 potassium, serum 4.5 mmol/L 3.5-5.2 chloride, serum 106 mmol/L 98-107 carbon dioxide, venous blood 27.7 mmol/L 21.0-32.0 blood glucose 105 mg/dL 65-110 urea nitrogen, blood 14 mg/dL 7-18 creatinine, serum 0.90 mg/dL 0.60-1.30 alanine aminotransferase (SGPT), serum 29 U/L 12-78 aspartate aminotransferase (SGOT), serum 22 U/L 15-37 calcium, serum 9.4 mg/dL 8.5-10.1 bilirubin, serum, total 0.70 mg/dL 0.00-1.00 cholesterol, serum 160 mg/dL 069-776 1866/07/13 triglyceride, serum, fasting 63 mg/dL 30-200 HDL [...] Panel - Chemistry sodium, serum 141 mmol/L 891-812 3230/02/10 potassium, serum 5.2 mmol/L 3.5-5.2 chloride, serum 106 mmol/L 98-107 carbon dioxide, venous blood 27.8 mmol/L 21.0-32.0 blood glucose 111 mg/dL 65-110 urea nitrogen, blood 18 mg/dL 7-18 creatinine, serum 0.90 mg/dL 0.60-1.30 alanine aminotransferase (SGPT), serum 29 U/L 12-78 aspartate aminotransferase (SGOT), serum 21 U/L 15-37 calcium, serum 8.3 mg/dL 8.5-10.1 bilirubin, serum, total 0.40 mg/dL 0.00-1.00 sodium, serum 141 mmol/L 178-872 8282/11/11 carbon dioxide, venous blood 26.8 mmol/L 21.0-32.0 potassium, serum 4.2 mmol/L 3.5-5.2 chloride, serum 106 mmol/L 98-107 blood glucose 95 mg/dL 65-110 urea nitrogen, blood 18 mg/dL 7-18 creatinine, serum 0.70 mg/dL 0.55-1.30 alanine aminotransferase (SGPT), serum 33 U/L 12-78 aspartate aminotransferase (SGOT), serum 22 U/L 15-37 calcium, serum 8.5 mg/dL 8.5-10.1 bilirubin, serum, total 0.30 mg/dL 0.00-1.00 sodium, serum 143 mmol/L 343-730 3330/12/23 carbon dioxide, venous blood 24.6 mmol/L 21.0-32.0 potassium, serum 4.1 mmol/L 3.5-5.2 chloride, serum 107 mmol/L 98-107 blood glucose 98 mg/dL 65-110 urea nitrogen, blood 22 mg/dL 7-18 creatinine, serum 0.77 mg/dL 0.55-1.30 alanine aminotransferase (SGPT), serum 28 U/L aspartate aminotransferase (SGOT), serum 20 U/L 15-37 calcium, serum 8.6 mg/dL 8.5-10.1 bilirubin, serum, total 0.30 mg/dL 0.00-1.00 sodium, serum 142 mmol/L 211-258 3960/12/09 carbon dioxide, venous blood 28.5 mmol/L 21.0-32.0 potassium, serum 5.0 mmol/L 3.5-5.2 chloride, serum 109 mmol/L 98-107 blood glucose 91 mg/dL 65-110 urea nitrogen, blood 27 mg/dL 7-18 creatinine, serum 0.88 mg/dL 0.55-1.30 alanine aminotransferase (SGPT), serum 31 U/L aspartate aminotransferase (SGOT), serum 18 U/L 15-37 calcium, serum 8.9 mg/dL 8.5-10.1 bilirubin, serum, total 0.40 mg/dL 0.00-1.00 sodium, serum 140 mmol/L 257-373 8596/12/16 carbon dioxide, venous blood 25.4 mmol/L 21.0-32.0 potassium, serum 4.1 mmol/L 3.5-5.2 chloride, serum 104 mmol/L 98-107 blood glucose 110 mg/dL 65-110 urea nitrogen, blood 24 mg/dL 7-18 creatinine, serum 0.87 mg/dL 0.55-1.30 alanine aminotransferase (SGPT), serum 35 U/L aspartate aminotransferase (SGOT), serum 21 U/L 15-37 calcium, serum 8.4 mg/dL 8.5-10.1 bilirubin, serum, total 0.50 mg/dL 0.00-1.00 sodium, serum 141 mmol/L 722-857 9238/12/02 carbon dioxide, venous blood 25.9 mmol/L 21.0-32.0 potassium, serum 4.7 mmol/L 3.5-5.2 chloride, serum 106 mmol/L 98-107 blood glucose 78 mg/dL 65-110 urea nitrogen, blood 24 mg/dL 7-18 creatinine, serum 0.75 mg/dL 0.55-1.30 alanine aminotransferase (SGPT), serum 31 U/L aspartate aminotransferase (SGOT), serum 20 U/L 15-37 calcium, serum 8.7 mg/dL 8.5-10.1 bilirubin, serum, total 0.30 mg/dL 0.00-1.00 sodium, serum 141 mmol/L 801-138 5389/11/18 carbon dioxide, venous blood 26.2 mmol/L 21.0-32.0 potassium, serum 4.4 mmol/L 3.5-5.2 chloride, serum 106 mmol/L 98-107 blood glucose 102 mg/dL 65-110 urea nitrogen, blood 24 mg/dL 7-18 creatinine, serum 0.77 mg/dL 0.55-1.30 alanine aminotransferase (SGPT), serum 30 U/L aspartate aminotransferase (SGOT), serum 15 U/L 15-37 calcium, serum 8.3 mg/dL 8.5-10.1 bilirubin, serum, total 0.30 mg/dL 0.00-1.00 sodium, serum 139 mmol/L 750-687 0741/11/25 carbon dioxide, venous blood 27.9 mmol/L 21.0-32.0 potassium, serum 4.7 mmol/L 3.5-5.2 chloride, serum 105 mmol/L 98-107 blood glucose 94 mg/dL 65-110 urea nitrogen, blood 21 mg/dL 7-18 creatinine, serum 0.79 mg/dL 0.55-1.30 alanine aminotransferase (SGPT), serum 40 U/L 12-78 aspartate aminotransferase (SGOT), serum 22 U/L 15-37 calcium, serum 8.5 mg/dL 8.5-10.1 bilirubin, serum, total 0.80 mg/dL 0.00-1.00 sodium, serum 139 mmol/L 936-888 7290/12/30 carbon dioxide, venous blood 28.2 mmol/L 21.0-32.0 potassium, serum 3.9 mmol/L 3.5-5.2 chloride, serum 105 mmol/L 98-107 blood glucose 91 mg/dL 65-110 urea nitrogen, blood 17 mg/dL 7-18 creatinine, serum 0.81 mg/dL 0.55-1.30 alanine aminotransferase (SGPT), serum 29 U/L -78 aspartate aminotransferase (SGOT), serum 22 U/L 15-37 calcium, serum 8.8 mg/dL 8.5-10.1 bilirubin, serum, total 0.50 mg/dL 0.00-1.00 Lab Report: VITAMIN D, 25-HYDROXY/27343 - Chemistry vitamin D 25-hydroxy, serum 24 ng/mL 30-100 Encounters Code Encounter Date Provider Facility CPT-56826 Level 2 Est. 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 CPT-22775 Level 4 Est. Patient 09:14:[address] L[employer] LAMP CLE[employer] Rikki GRANADOS [facility] CPT-86683 Level 2 Est. Patient 09:07:32 CDT Marta Viramontes [facility] CPT-37522 Level 4 Est. Patient 11:55:00 CDT Rikki GRANADOS [facility] CPT-68249 Level 3 Est. Patient 13:25:16 CDT Jennifer Chun MD PhD [facility] CPT-65332 Level 3 Est. Patient 17:31:22 CDT Solomon Alamo MD [facility] CPT-89719 Level 3 Est. Patient 08:02:14 CDT Solomon Alamo MD [facility] CPT-08191 Level 3 Est. Patient 17:23:53 CDT Rikki Stearns PA [facility] CPT-79312 Level 3 Est. Patient 11:22:41 CDT Darryn Hearn [facility] Procedures Code Procedure Name Date Entry Date Standard Description CPT-79468 Venipuncture Draw Fee 09:22:[address] L[employer] L[employer] CPT-46375 Chest 2V Frontal and Lat 09:22:[address] [employer] L[employer] CLE[employer]ER CPT-I/D I/D Abscess 09:43:13 CDT CPT-34802 Venipuncture Draw Fee 08:16:[address] L[employer] CPT-89574 Venipuncture Draw Fee 08:18:[address] [employer] CPT-63338 Venipuncture Draw Fee 08:31:[address] [employer] CPT-12196 Venipuncture Draw Fee 11:42:[address] L[employer] CPT-17628 Venipuncture Draw Fee 13:26:[address] L[employer] LAMP [employer]ER CPT-65735 Venipuncture Draw Fee 09:23:[address] [employer]ER CPT-000 Give Appropriate Tetanus Booster 10:23:50 CDT CPT-82847 Bone Density 08:28:45 CDT CPT-91998 Bone Density 11:35:15 CDT CPT-PV Prev. Care Visit 12:19:00 CDT CPT-42530 Venipuncture Draw Fee 15:02:58 CDT
--- OUTSIDE RECORDS SUMMARY | 2018-01-19 07:30 | XMS REPORT | Clinical Summary ---
Author Author Admin, [facility] Organization 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 BENZONATATE 10490158724 No Longer Active Rikki Harms PA Active FLONASE ALLERGY RELIEF 50 MCG/ACT NASAL SUSP spray twice in each nostril one time daily FLUTICASONE PROPIONATE 22955753759 No Longer Active Rikki Harms PA Active TUSSIONEX PENNKINETIC ER 10-8 MG/5ML LQCR 5ml po q12hr PRN Cough HYDROCOD POLST-CHLORPHEN POLST 36671785075 No Longer Active Rikki Harms PA Active NIACIN ER 500 MG ORAL CR-TABS Take one twice daily NIACIN 40227435710 Active Rikki Harms PA Active ALBUTEROL SULFATE 0.083 % NEBU SOLN one vial per nebulizer every 4-6 hours as needed ALBUTEROL SULFATE 57272806263 No Longer Active Rikki Harms DARWIN Active MEDROL (CAROLYN) 4 MG TABS 6 tabs on day 1, 5 tabs on day 2, 4 tabs on day 3, 3 tabs on day 4, 2 tabs on day 5, 1 tab on day 6 METHYLPREDNISOLONE 91991861641 No Longer Active Rikki Harms PA Active LEVAQUIN 750 MG TABS 1 po qd x 7 days LEVOFLOXACIN 63446623648 No Longer Active Rikki Harms PA Active LEVAQUIN 500 MG ORAL TABS Take one tablet daily LEVOFLOXACIN 36232447084 No Longer Active Rikki Harms PA Active PROAIR HFA 108 (90 BASE) MCG/ACT AERS 2 puffs four times a day as needed 2014 ALBUTEROL SULFATE 77179779650 Active Marta Yokum SR. DIRECTOR PRODUCT MANAGEMENT Active LEVAQUIN 500 MG TAB 1 tablet by mouth daily LEVOFLOXACIN 34272546833 No Longer Active Marta Yokum SR. DIRECTOR PRODUCT MANAGEMENT Active CHERATUSSIN AC 100-10 MG/5ML SYRP 1 tsp by mouth every 4 hours as needed for cough GUAIFENESIN-CODEINE 84522375869 No Longer Active Rikki Harms PA Active MUPIROCIN 2 % EXT OINT Use in each nostril in am and pm MUPIROCIN 64678148463 No Longer Active Rikki Harms PA Active DOXYCYCLINE HYCLATE 100 MG ORAL CAPS Take one bid DOXYCYCLINE HYCLATE 66784999662 No Longer Active Rikki Harms PA Active CLARITIN 10 MG TABS 1prn LORATADINE 91918412322 No Longer Active Jocelyne Naff WHEEL TRUING MACHINE TENDER Active ASPIRIN 81 MG TABS 1qd ASPIRIN 92234571960 No Longer Active Jocelyne Naff WHEEL TRUING MACHINE TENDER Active DOXYCYCLINE HYCLATE 100 MG CAP 1 cap by mouth twice daily DOXYCYCLINE HYCLATE 08382986527 No Longer Active Rikki Harms PA Active VITAMIN D3 63622 UNIT CAPS 1 pill by mouth weekly, for vitamin D deficiency CHOLECALCIFEROL 48825703444 No Longer Active Jennifer Chun MD PhD Active ANASTROZOLE 1 MG ORAL TABS Take one by mouth daily ANASTROZOLE 46780680121 Active Jennifer Chun MD PhD Active ZITHROMAX 250 MG TAB 2 po today, then 1 po q days 2-5 AZITHROMYCIN 60604486240 No Longer Active Rikki Harms PA Active MECLIZINE HCL 25 MG TABS 1 prn MECLIZINE HCL 84819756998 No Longer Active Solomon Alamo MD Active CHERATUSSIN AC SYRP prn as directed GUAIFENESIN- CODEINE SYRP 00388163065 No Longer Active Rikki Harms PA Active MULTIVITAMINS TABS 1qd MULTIPLE VITAMIN 83680259582 No Longer Active Rikki Harms PA Active OMEPRAZOLE 20 MG CPDR 1 PO Q D OMEPRAZOLE 43376493236 Active Rikki Harms PA Active ZITHROMAX Z-CAROLYN 250 MG TABS 2x1day,[id number] AZITHROMYCIN 31082045348 No Longer Active Jocelyne Lovell WHEEL TRUING MACHINE TENDER Active MULTIVITAMINS TABS 1qd MULTIVITAMINS TABS MULTIPLE VITAMIN Inactive CHERATUSSIN AC SYRP prn as directed CHERATUSSIN AC SYRP GUAIFENESIN-CODEINE SYRP Inactive MECLIZINE HCL 25 MG TABS 1 prn MECLIZINE HCL 25 MG TABS 838081 MECLIZINE HCL Inactive ASPIRIN 81 MG TABS 1qd ASPIRIN 81 MG TABS ASPIRIN Inactive CLARITIN 10 MG TABS 1prn CLARITIN 10 MG TABS 292764 LORATADINE Inactive DOXYCYCLINE HYCLATE 100 MG ORAL CAPS Take one bid DOXYCYCLINE HYCLATE 100 MG ORAL CAPS 1152040 DOXYCYCLINE HYCLATE Inactive MUPIROCIN 2 % EXT OINT Use in each nostril in am and pm MUPIROCIN 2 % EXT OINT 869136 MUPIROCIN Inactive CHERATUSSIN AC 100-10 MG/5ML SYRP 1 tsp by mouth every 4 hours as needed for cough CHERATUSSIN AC 100-10 MG/5ML SYRP 544315 GUAIFENESIN-CODEINE Inactive LEVAQUIN 500 MG TAB 1 tablet by mouth daily LEVAQUIN 500 MG TAB 830134 LEVOFLOXACIN Inactive LEVAQUIN 500 MG ORAL TABS Take one tablet daily LEVAQUIN 500 MG ORAL TABS 968175 LEVOFLOXACIN Inactive LEVAQUIN 750 MG TABS 1 po qd x 7 days LEVAQUIN 750 MG TABS 276267 LEVOFLOXACIN Inactive ALBUTEROL SULFATE 0.083 % NEBU SOLN one vial per nebulizer every 4-6 hours as needed ALBUTEROL SULFATE 0.083 % NEBU SOLN 992228 ALBUTEROL SULFATE Inactive TUSSIONEX PENNKINETIC ER 10-8 MG/5ML LQCR 5ml po q12hr PRN Cough TUSSIONEX PENNKINETIC ER 10-8 MG/5ML LQCR HYDROCOD POLST- CHLORPHEN POLST Inactive FLONASE ALLERGY RELIEF 50 MCG/ACT NASAL SUSP spray twice in each nostril one time daily FLONASE ALLERGY RELIEF 50 MCG/ACT NASAL SUSP 3759449 FLUTICASONE PROPIONATE Inactive BENZONATATE 200 MG ORAL CAPS One capsule tid. BENZONATATE 200 MG ORAL CAPS 549272 BENZONATATE Inactive CEPHALEXIN 500 MG ORAL CAPS Take one four times a day CEPHALEXIN 500 MG ORAL CAPS 520989 CEPHALEXIN Inactive ZITHROMAX Z-CAROLYN 250 MG TABS 2x1day,9v9kslm ZITHROMAX Z-CAROLYN 250 MG TABS 1679214 AZITHROMYCIN Inactive ZITHROMAX 250 MG TAB 2 po today, then 1 po q days 2-5 ZITHROMAX 250 MG TAB 7907523 AZITHROMYCIN Inactive VITAMIN D3 84884 UNIT CAPS 1 pill by mouth weekly, for vitamin D deficiency VITAMIN D3 09645 UNIT CAPS CHOLECALCIFEROL Inactive DOXYCYCLINE HYCLATE 100 MG CAP 1 cap by mouth twice daily DOXYCYCLINE HYCLATE 100 MG CAP 1268186 DOXYCYCLINE HYCLATE Inactive MEDROL (CAROLYN) 4 MG TABS 6 tabs on day 1, 5 tabs on day 2, 4 tabs on day 3, 3 tabs on day 4, 2 tabs on day 5, 1 tab on day 6 MEDROL ( CAROLYN) 4 MG TABS 738816 METHYLPREDNISOLONE Inactive Vital Signs Date Name Value [...] Panel - Chemistry sodium, serum 142 mmol/L 567-573 5831/07/25 potassium, serum 4.0 mmol/L 3.5-5.2 chloride, serum [...] % 11.6-14.8 platelet count 269 10^3/MM^3 10*3/mm3 919-475 6984/12/16 leukocyte count, blood 3.2 10^3/MM^3 10*3/mm3 4.6-10.2 [...] % 11.6-14.8 platelet count 158 10^3/MM^3 10*3/mm3 713-851 4641/12/18 leukocyte count, blood 8.8 10^3/MM^3 10*3/mm3 4.6-10.2 [...] % 11.6-14.8 platelet count 207 10^3/MM^3 10*3/mm3 609-700 9254/12/23 leukocyte count, blood 6.2 10^3/MM^3 10*3/mm3 4.6-10.2 [...] % 11.6-14.8 platelet count 183 10^3/MM^3 10*3/mm3 019-323 7460/12/30 leukocyte count, blood 5.2 10^3/MM^3 10*3/mm3 4.6-10.2 [...] % 11.6-14.8 platelet count 200 10^3/MM^3 10*3/mm3 301-006 2231/11/11 leukocyte count, blood 2.0 10^3/MM^3 10*3/mm3 4.6-10.2 [...] % 11.6-14.8 platelet count 203 10^3/MM^3 10*3/mm3 591-987 7444/11/18 leukocyte count, blood 8.5 10^3/MM^3 10*3/mm3 4.6-10.2 [...] % 11.6-14.8 platelet count 143 10^3/MM^3 10*3/mm3 307-861 5894/11/25 leukocyte count, blood 2.1 10^3/MM^3 10*3/mm3 4.6-10.2 [...] % 11.6-14.8 platelet count 139 10^3/MM^3 10*3/mm3 514-408 3447/12/02 leukocyte count, blood 6.7 10^3/MM^3 10*3/mm3 4.6-10.2 [...] % 11.6-14.8 platelet count 258 10^3/MM^3 10*3/mm3 428-800 4794/12/09 leukocyte count, blood 5.3 10^3/MM^3 10*3/mm3 4.6-10.2 [...] Panel - Chemistry sodium, serum 138 mmol/L 668-450 8180/11/04 carbon dioxide, venous blood 27.7 mmol/L 21.0-32.0 potassium, serum 4.9 mmol/L 3.5-5.2 chloride, serum 104 mmol/L 98-107 blood glucose 92 mg/dL 65-110 urea nitrogen, blood 24 mg/dL 7-18 creatinine, serum 0.95 mg/dL 0.55-1.30 alanine aminotransferase (SGPT), serum 34 U/L -78 aspartate aminotransferase (SGOT), serum 23 U/L 15-37 calcium, serum 8.9 mg/dL 8.5-10.1 bilirubin, serum, total 0.70 mg/dL 0.00-1.00 sodium, serum 140 mmol/L 702-301 1723/01/06 carbon dioxide, venous blood 27.2 mmol/L 21.0-32.0 potassium, serum 4.1 mmol/L 3.5-5.2 chloride, serum 105 mmol/L 98-107 blood glucose 70 mg/dL 65-110 urea nitrogen, blood 25 mg/dL 7-18 creatinine, serum 0.90 mg/dL 0.55-1.30 alanine aminotransferase (SGPT), serum 28 U/L -78 aspartate aminotransferase (SGOT), serum 20 U/L 15-37 calcium, serum 8.9 mg/dL 8.5-10.1 bilirubin, serum, total 0.40 mg/dL 0.00-1.00 sodium, serum 140 mmol/L 042-998 0436/01/13 carbon dioxide, venous blood 26.4 mmol/L 21.0-32.0 potassium, serum 4.2 mmol/L 3.5-5.2 chloride, serum 104 mmol/L 98-107 blood glucose 101 mg/dL 65-110 urea nitrogen, blood 18 mg/dL 7-18 creatinine, serum 0.80 mg/dL 0.55-1.30 alanine aminotransferase (SGPT), serum 28 U/L -78 aspartate aminotransferase (SGOT), serum 24 U/L 15-37 calcium, serum 8.7 mg/dL 8.5-10.1 bilirubin, serum, total 0.50 mg/dL 0.00-1.00 sodium, serum 142 mmol/L 926-577 3979/02/04 carbon dioxide, venous blood 24.9 mmol/L 21.0-32.0 [...] % 11.6-14.8 platelet count 297 10^3/MM^3 10*3/mm3 302-898 2484/02/04 leukocyte count, blood 4.2 10^3/MM^3 10*3/mm3 4.6-10.2 [...] % 11.6-14.8 platelet count 271 10^3/MM^3 10*3/mm3 681-013 9910/01/13 leukocyte count, blood 5.2 10^3/MM^3 10*3/mm3 4.6-10.2 [...] % 11.6-14.8 platelet count 289 10^3/MM^3 10*3/mm3 832-754 7331/11/04 leukocyte count, blood 3.8 10^3/MM^3 10*3/mm3 4.6-10.2 [...] Panel - Chemistry sodium, serum 141 mmol/L 826-130 2174/11/11 carbon dioxide, venous blood 26.8 mmol/L 21.0-32.0 potassium, serum 4.2 mmol/L 3.5-5.2 chloride, serum 106 mmol/L 98-107 blood glucose 95 mg/dL 65-110 urea nitrogen, blood 18 mg/dL 7-18 creatinine, serum 0.70 mg/dL 0.55-1.30 alanine aminotransferase (SGPT), serum 33 U/L -78 aspartate aminotransferase (SGOT), serum 22 U/L 15-37 calcium, serum 8.5 mg/dL 8.5-10.1 bilirubin, serum, total 0.30 mg/dL 0.00-1.00 sodium, serum 141 mmol/L 161-821 4588/11/18 carbon dioxide, venous blood 26.2 mmol/L 21.0-32.0 potassium, serum 4.4 mmol/L 3.5-5.2 chloride, serum 106 mmol/L 98-107 blood glucose 102 mg/dL 65-110 urea nitrogen, blood 24 mg/dL 7-18 creatinine, serum 0.77 mg/dL 0.55-1.30 alanine aminotransferase (SGPT), serum 30 U/L -78 aspartate aminotransferase (SGOT), serum 15 U/L 15-37 calcium, serum 8.3 mg/dL 8.5-10.1 bilirubin, serum, total 0.30 mg/dL 0.00-1.00 sodium, serum 139 mmol/L 080-145 4490/11/25 carbon dioxide, venous blood 27.9 mmol/L 21.0-32.0 potassium, serum 4.7 mmol/L 3.5-5.2 chloride, serum 105 mmol/L 98-107 blood glucose 94 mg/dL 65-110 urea nitrogen, blood 21 mg/dL 7-18 creatinine, serum 0.79 mg/dL 0.55-1.30 alanine aminotransferase (SGPT), serum 40 U/L -78 aspartate aminotransferase (SGOT), serum 22 U/L 15-37 calcium, serum 8.5 mg/dL 8.5-10.1 bilirubin, serum, total 0.80 mg/dL 0.00-1.00 sodium, serum 142 mmol/L 936-022 0038/12/09 carbon dioxide, venous blood 28.5 mmol/L 21.0-32.0 potassium, serum 5.0 mmol/L 3.5-5.2 chloride, serum 109 mmol/L 98-107 blood glucose 91 mg/dL 65-110 urea nitrogen, blood 27 mg/dL 7-18 creatinine, serum 0.88 mg/dL 0.55-1.30 alanine aminotransferase (SGPT), serum 31 U/L 78 aspartate aminotransferase (SGOT), serum 18 U/L 15-37 calcium, serum 8.9 mg/dL 8.5-10.1 bilirubin, serum, total 0.40 mg/dL 0.00-1.00 sodium, serum 140 mmol/L 692-593 0333/12/16 carbon dioxide, venous blood 25.4 mmol/L 21.0-32.0 potassium, serum 4.1 mmol/L 3.5-5.2 chloride, serum 104 mmol/L 98-107 blood glucose 110 mg/dL 65-110 urea nitrogen, blood 24 mg/dL 7-18 creatinine, serum 0.87 mg/dL 0.55-1.30 alanine aminotransferase (SGPT), serum 35 U/L aspartate aminotransferase (SGOT), serum 21 U/L 15-37 calcium, serum 8.4 mg/dL 8.5-10.1 bilirubin, serum, total 0.50 mg/dL 0.00-1.00 sodium, serum 141 mmol/L 955-829 2825/12/02 carbon dioxide, venous blood 25.9 mmol/L 21.0-32.0 potassium, serum 4.7 mmol/L 3.5-5.2 chloride, serum 106 mmol/L 98-107 blood glucose 78 mg/dL 65-110 urea nitrogen, blood 24 mg/dL 7-18 creatinine, serum 0.75 mg/dL 0.55-1.30 alanine aminotransferase (SGPT), serum 31 U/L aspartate aminotransferase (SGOT), serum 20 U/L - calcium, serum 8.7 mg/dL 8.5-10.1 bilirubin, serum, total 0.30 mg/dL 0.00-1.00 sodium, serum 139 mmol/L 216-093 9916/12/30 carbon dioxide, venous blood 28.2 mmol/L 21.0-32.0 potassium, serum 3.9 mmol/L 3.5-5.2 chloride, serum 105 mmol/L 98-107 blood glucose 91 mg/dL 65-110 urea nitrogen, blood 17 mg/dL 7-18 creatinine, serum 0.81 mg/dL 0.55-1.30 alanine aminotransferase (SGPT), serum 29 U/L aspartate aminotransferase (SGOT), serum 22 U/L - calcium, serum 8.8 mg/dL 8.5-10.1 bilirubin, serum, total 0.50 mg/dL 0.00-1.00 sodium, serum 143 mmol/L 860-228 3474/12/23 carbon dioxide, venous blood 24.6 mmol/L 21.0-32.0 potassium, serum 4.1 mmol/L 3.5-5.2 chloride, serum 107 mmol/L 98-107 blood glucose 98 mg/dL 65-110 urea nitrogen, blood 22 mg/dL 7-18 creatinine, serum 0.77 mg/dL 0.55-1.30 alanine aminotransferase (SGPT), serum 28 U/L 1278 aspartate aminotransferase (SGOT), serum 20 U/L 15-37 calcium, serum 8.6 mg/dL 8.5-10.1 bilirubin, serum, total 0.30 mg/dL 0.00-1.00 Encounters Code Encounter Date Provider Facility CPT-90336 Level 3 Est. Patient 05:11:40 CDT Rikki GRANADOS [facility] CPT-25398 Level 2 Est. Patient 14:30:43 CRACKLING PRESS OPERATOR Marta Viramontes [facility] CPT-24728 Level 4 Est. Patient 09:14:36 CRACKLING PRESS OPERATOR Rikki GRANADOS [facility] CPT-83685 Level 2 Est. Patient 09:07:32 CDT Marta Viramontes [facility] CPT-92729 Level 4 Est. Patient 11:55:00 CDT Rikki GRANADOS [facility] CPT-74328 Level 3 Est. Patient 13:25:16 CDT Jennifer Chun MD PhD [facility] CPT-91164 Level 3 Est. Patient 17:31:22 CDT Solomon Alamo MD [facility] CPT-93986 Level 3 Est. Patient 08:02:14 CDT Solomon Alamo MD [facility] CPT-85588 Level 3 Est. Patient 17:23:53 CDT Rikki Stearns [facility] CPT-64726 Level 3 Est. Patient 11:22:41 CDT Darryn Umer [facility] Procedures Code Procedure Name Date Entry Date Standard Description CPT-93569 Venipuncture Draw Fee 18:27:04 CDT CPT-26044 Chest 2V Frontal and Lat 10:57:00 CRACKLING PRESS OPERATOR CPT-65332 Venipuncture Draw Fee 10:56:59 CRACKLING PRESS OPERATOR CPT-31263 Venipuncture Draw Fee 09:22:28 CRACKLING PRESS OPERATOR CPT-11105 Chest 2V Frontal and Lat 09:22:27 CRACKLING PRESS OPERATOR CPT-I/D I/D Abscess 09:43:13 CDT CPT-72167 Venipuncture Draw Fee 08:16:46 CRACKLING PRESS OPERATOR CPT-89968 Venipuncture Draw Fee 08:18:55 CRACKLING PRESS OPERATOR CPT-60347 Venipuncture Draw Fee 08:31:18 CRACKLING PRESS OPERATOR CPT-53171 Venipuncture Draw Fee 11:42:52 CRACKLING PRESS OPERATOR CPT-88024 Venipuncture Draw Fee 13:26:37 CRACKLING PRESS OPERATOR CPT-00058 Venipuncture Draw Fee 09:23:38 CRACKLING PRESS OPERATOR CPT-000 Give Appropriate Tetanus Booster 10:23:50 CDT CPT-39368 Bone Density 08:28:45 CDT CPT-31913 Bone Density 11:35:15 CDT CPT-PV Prev. Care Visit 12:19:00 CDT CPT-32438 Venipuncture Draw Fee 15:02:58 CDT
--- OUTSIDE RECORDS SUMMARY | 2018-01-19 07:31 | XMS REPORT | Clinical Summary ---
Author Author Admin, E Organization [facility] Address Unknown Phone Unavailable Allergies, Adverse Reactions, Alerts Allergy Name Reaction Description Start Date Severity Status Provider SULFA facial swelling Critical Active Jocelyne Naff INDUCTION HEAT TREATER Conditions or Problems Problem Name Problem Code Onset Date Status Entry Date Provider Comment Standard Description Annotate G E R D 530.81 Active Jocelyne Naff INDUCTION HEAT TREATER Esophageal reflux FH COLON CANCER V16.0 Active Jocelyne Naff INDUCTION HEAT TREATER Family history of malignant neoplasm of gastrointestinal [...] Adenocarcinoma, fallopian tube, 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 Kailee STUHERLANDA Malignant neoplasm of fallopian tube Adenocarcinoma, right breast 174.9 Active Alfreda Anthony RMA Malignant neoplasm of breast (female), unspecified Female breast cancer, right upper-outer quadrant 174.4 Active Kailee SUTHERLANDA Malignant neoplasm of upper-outer quadrant of female [...] Name NDC Status Provider Patient Instruction LEVAQUIN 750 MG TABS 1 po qd x 7 days LEVOFLOXACIN 71282884930 Active Marta Yokum RAPIER INSERTION LOOM FIXER Active FLONASE ALLERGY RELIEF 50 MCG/ACT NASAL SUSP spray twice in each nostril one time daily FLUTICASONE PROPIONATE 07934378318 Active Marta Yokum RAPIER INSERTION LOOM FIXER Active LEVAQUIN 500 MG TAB 1 tablet by mouth daily LEVOFLOXACIN 95056123230 No Longer Active Marta Yokum RAPIER INSERTION LOOM FIXER Active BENZONATATE 200 MG ORAL CAPS One capsule tid. BENZONATATE 67712952253 Active Marta Yokum RAPIER INSERTION LOOM FIXER Active CHERATUSSIN AC 100-10 MG/5ML SYRP 1 tsp by mouth every 4 hours as needed for cough GUAIFENESIN-CODEINE 65801389062 No Longer Active Rikki Harms PA Active MUPIROCIN 2 % EXT OINT Use in each nostril in am and pm MUPIROCIN 40145001836 No Longer Active Rikki Harms PA Active DOXYCYCLINE HYCLATE 100 MG ORAL CAPS Take one bid DOXYCYCLINE HYCLATE 46899086346 No Longer Active Rikki Harms PA Active CLARITIN 10 MG TABS 1prn LORATADINE 29545179169 No Longer Active Jocelyne Naff INDUCTION HEAT TREATER Active ASPIRIN 81 MG TABS 1qd ASPIRIN 39834716618 No Longer Active Jocelyne Naff INDUCTION HEAT TREATER Active DOXYCYCLINE HYCLATE 100 MG CAP 1 cap by mouth twice daily DOXYCYCLINE HYCLATE 02316539001 No Longer Active Rikki Harms PA Active VITAMIN D3 96555 UNIT CAPS 1 pill by mouth weekly, for vitamin D deficiency CHOLECALCIFEROL 18673127224 No Longer Active Jennifer Chun MD PhD Active ANASTROZOLE 1 MG ORAL TABS Take one by mouth daily ANASTROZOLE 40550848647 Active Jennifer Chun MD PhD Active ZITHROMAX 250 MG TAB 2 po today, then 1 po q days 2-5 AZITHROMYCIN 31206997388 No Longer Active Rikki Harms PA Active MECLIZINE HCL 25 MG TABS 1 prn MECLIZINE HCL 38592549138 No Longer Active Solomon Alamo MD Active CHERATUSSIN AC SYRP prn as directed GUAIFENESIN- CODEINE SYRP 24507091487 No Longer Active Rikki Harms PA Active MULTIVITAMINS TABS 1qd MULTIPLE VITAMIN 00690496856 No Longer Active Rikki Harms PA Active OMEPRAZOLE 20 MG CPDR 1 PO Q D OMEPRAZOLE 65216211278 Active Rikki Stearns PA Active ZITHROMAX Z-CAROLYN 250 MG TABS 2x1day,8k0srty AZITHROMYCIN 87334139834 No Longer Active Jocelyne Lovell INDUCTION HEAT TREATER Active MULTIVITAMINS TABS 1qd MULTIVITAMINS TABS MULTIPLE VITAMIN Inactive CHERATUSSIN AC SYRP prn as directed CHERATUSSIN AC SYRP GUAIFENESIN-CODEINE SYRP Inactive MECLIZINE HCL 25 MG TABS 1 prn MECLIZINE HCL 25 MG TABS 050658 MECLIZINE HCL Inactive ASPIRIN 81 MG TABS 1qd ASPIRIN 81 MG TABS 804687 ASPIRIN Inactive CLARITIN 10 MG TABS 1prn CLARITIN 10 MG TABS 227980 LORATADINE Inactive DOXYCYCLINE HYCLATE 100 MG ORAL CAPS Take one bid DOXYCYCLINE HYCLATE 100 MG ORAL CAPS 0505220 DOXYCYCLINE HYCLATE Inactive MUPIROCIN 2 % EXT OINT Use in each nostril in am and pm MUPIROCIN 2 % EXT OINT 616140 MUPIROCIN Inactive CHERATUSSIN AC 100-10 MG/5ML SYRP 1 tsp by mouth every 4 hours as needed for cough CHERATUSSIN AC 100-10 MG/5ML SYRP 640546 GUAIFENESIN-CODEINE Inactive LEVAQUIN 500 MG TAB 1 tablet by mouth daily LEVAQUIN 500 MG TAB 044626 LEVOFLOXACIN Inactive ZITHROMAX Z-CAROLYN 250 MG TABS 2x1day,2u5pwcm ZITHROMAX Z-CAROLYN 250 MG TABS 5141641 AZITHROMYCIN Inactive ZITHROMAX 250 MG TAB 2 po today, then 1 po q days 2-5 ZITHROMAX 250 MG TAB 7315925 AZITHROMYCIN Inactive VITAMIN D3 07916 UNIT CAPS 1 pill by mouth weekly, for vitamin D deficiency VITAMIN D3 23827 UNIT CAPS CHOLECALCIFEROL Inactive DOXYCYCLINE HYCLATE 100 MG CAP 1 cap by mouth twice daily DOXYCYCLINE HYCLATE 100 MG CAP 5407999 DOXYCYCLINE HYCLATE Inactive Vital Signs Date Name [...] % 11.6-14.8 platelet count 222 10^3/MM^3 10*3/mm3 600-634 0019/01/07 leukocyte count, blood 11.7 10^3/MM^3 10*3/mm3 4.6-10.2 [...] % 11.6-14.8 platelet count 191 10^3/MM^3 10*3/mm3 923-667 0272/01/20 leukocyte count, blood 9.8 10^3/MM^3 10*3/mm3 4.6-10.2 [...] % 11.6-14.8 platelet count 195 10^3/MM^3 10*3/mm3 107-719 4536/01/28 leukocyte count, blood 11.9 10^3/MM^3 10*3/mm3 4.6-10.2 [...] % 11.6-14.8 platelet count 278 10^3/MM^3 10*3/mm3 635-292 5102/02/04 leukocyte count, blood 8.5 10^3/MM^3 10*3/mm3 4.6-10.2 [...] % 11.6-14.8 platelet count 326 10^3/MM^3 10*3/mm3 692-728 9014/02/10 leukocyte count, blood 2.3 10^3/MM^3 10*3/mm3 4.6-10.2 [...] % 11.6-14.8 platelet count 240 10^3/MM^3 10*3/mm3 300-018 6241/02/17 leukocyte count, blood 3.4 10^3/MM^3 10*3/mm3 4.6-10.2 [...] % 11.6-14.8 platelet count 308 10^3/MM^3 10*3/mm3 295-412 6788/02/25 leukocyte count, blood 6.6 10^3/MM^3 10*3/mm3 4.6-10.2 [...] % 11.6-14.8 platelet count 433 10^3/MM^3 10*3/mm3 658-259 5111/11/18 leukocyte count, blood 8.5 10^3/MM^3 10*3/mm3 4.6-10.2 [...] % 11.6-14.8 platelet count 143 10^3/MM^3 10*3/mm3 487-369 2041/11/25 leukocyte count, blood 2.1 10^3/MM^3 10*3/mm3 4.6-10.2 [...] % 11.6-14.8 platelet count 139 10^3/MM^3 10*3/mm3 960-516 1940/12/02 leukocyte count, blood 6.7 10^3/MM^3 10*3/mm3 4.6-10.2 [...] % 11.6-14.8 platelet count 258 10^3/MM^3 10*3/mm3 236-448 8372/12/09 leukocyte count, blood 5.3 10^3/MM^3 10*3/mm3 4.6-10.2 [...] % 11.6-14.8 platelet count 240 10^3/MM^3 10*3/mm3 831-450 5028/12/16 leukocyte count, blood 3.2 10^3/MM^3 10*3/mm3 4.6-10.2 [...] % 11.6-14.8 platelet count 158 10^3/MM^3 10*3/mm3 576-429 6444/12/18 leukocyte count, blood 8.8 10^3/MM^3 10*3/mm3 4.6-10.2 [...] % 11.6-14.8 platelet count 207 10^3/MM^3 10*3/mm3 822-487 7049/12/23 leukocyte count, blood 6.2 10^3/MM^3 10*3/mm3 4.6-10.2 [...] % 11.6-14.8 platelet count 183 10^3/MM^3 10*3/mm3 157-793 6605/11/11 leukocyte count, blood 2.0 10^3/MM^3 10*3/mm3 4.6-10.2 [...] Panel - Chemistry sodium, serum 138 mmol/L 635-203 5659/11/04 carbon dioxide, venous blood 27.7 mmol/L 21.0-32.0 potassium, serum 4.9 mmol/L 3.5-5.2 chloride, serum 104 mmol/L 98-107 blood glucose 92 mg/dL 65-110 urea nitrogen, blood 24 mg/dL 7-18 creatinine, serum 0.95 mg/dL 0.55-1.30 alanine aminotransferase (SGPT), serum 34 U/L 12-78 aspartate aminotransferase (SGOT), serum 23 U/L 15-37 calcium, serum 8.9 mg/dL 8.5-10.1 bilirubin, serum, total 0.70 mg/dL 0.00-1.00 sodium, serum 141 mmol/L 440-295 8339/01/14 potassium, serum 4.9 mmol/L 3.5-5.2 chloride, serum [...] % 11.6-14.8 platelet count 216 10^3/MM^3 10*3/mm3 838-830 8204/01/14 leukocyte count, blood 6.7 10^3/MM^3 10*3/mm3 4.6-10.2 [...] Panel - Chemistry sodium, serum 140 mmol/L 571-561 5763/07/13 potassium, serum 4.5 mmol/L 3.5-5.2 chloride, serum 106 mmol/L 98-107 carbon dioxide, venous blood 27.7 mmol/L 21.0-32.0 blood glucose 105 mg/dL 65-110 urea nitrogen, blood 14 mg/dL 7-18 creatinine, serum 0.90 mg/dL 0.60-1.30 alanine aminotransferase (SGPT), serum 29 U/L 12-78 aspartate aminotransferase (SGOT), serum 22 U/L 15-37 calcium, serum 9.4 mg/dL 8.5-10.1 bilirubin, serum, total 0.70 mg/dL 0.00-1.00 cholesterol, serum 160 mg/dL 438-034 2012/07/13 triglyceride, serum, fasting 63 mg/dL 30-200 HDL [...] Panel - Chemistry sodium, serum 141 mmol/L 970-281 3041/02/10 potassium, serum 5.2 mmol/L 3.5-5.2 chloride, serum 106 mmol/L 98-107 carbon dioxide, venous blood 27.8 mmol/L 21.0-32.0 blood glucose 111 mg/dL 65-110 urea nitrogen, blood 18 mg/dL 7-18 creatinine, serum 0.90 mg/dL 0.60-1.30 alanine aminotransferase (SGPT), serum 29 U/L 12-78 aspartate aminotransferase (SGOT), serum 21 U/L 15-37 calcium, serum 8.3 mg/dL 8.5-10.1 bilirubin, serum, total 0.40 mg/dL 0.00-1.00 sodium, serum 143 mmol/L 124-498 0568/12/23 carbon dioxide, venous blood 24.6 mmol/L 21.0-32.0 potassium, serum 4.1 mmol/L 3.5-5.2 chloride, serum 107 mmol/L 98-107 blood glucose 98 mg/dL 65-110 urea nitrogen, blood 22 mg/dL 7-18 creatinine, serum 0.77 mg/dL 0.55-1.30 alanine aminotransferase (SGPT), serum 28 U/L -78 aspartate aminotransferase (SGOT), serum 20 U/L 15-37 calcium, serum 8.6 mg/dL 8.5-10.1 bilirubin, serum, total 0.30 mg/dL 0.00-1.00 sodium, serum 142 mmol/L 851-510 3955/12/09 carbon dioxide, venous blood 28.5 mmol/L 21.0-32.0 potassium, serum 5.0 mmol/L 3.5-5.2 chloride, serum 109 mmol/L 98-107 blood glucose 91 mg/dL 65-110 urea nitrogen, blood 27 mg/dL 7-18 creatinine, serum 0.88 mg/dL 0.55-1.30 alanine aminotransferase (SGPT), serum 31 U/L aspartate aminotransferase (SGOT), serum 18 U/L 15-37 calcium, serum 8.9 mg/dL 8.5-10.1 bilirubin, serum, total 0.40 mg/dL 0.00-1.00 sodium, serum 140 mmol/L 849-788 3444/12/16 carbon dioxide, venous blood 25.4 mmol/L 21.0-32.0 potassium, serum 4.1 mmol/L 3.5-5.2 chloride, serum 104 mmol/L 98-107 blood glucose 110 mg/dL 65-110 urea nitrogen, blood 24 mg/dL 7-18 creatinine, serum 0.87 mg/dL 0.55-1.30 alanine aminotransferase (SGPT), serum 35 U/L aspartate aminotransferase (SGOT), serum 21 U/L 15-37 calcium, serum 8.4 mg/dL 8.5-10.1 bilirubin, serum, total 0.50 mg/dL 0.00-1.00 sodium, serum 141 mmol/L 770-367 2243/12/02 carbon dioxide, venous blood 25.9 mmol/L 21.0-32.0 potassium, serum 4.7 mmol/L 3.5-5.2 chloride, serum 106 mmol/L 98-107 blood glucose 78 mg/dL 65-110 urea nitrogen, blood 24 mg/dL 7-18 creatinine, serum 0.75 mg/dL 0.55-1.30 alanine aminotransferase (SGPT), serum 31 U/L aspartate aminotransferase (SGOT), serum 20 U/L -37 calcium, serum 8.7 mg/dL 8.5-10.1 bilirubin, serum, total 0.30 mg/dL 0.00-1.00 sodium, serum 141 mmol/L 176-594 3844/11/18 carbon dioxide, venous blood 26.2 mmol/L 21.0-32.0 potassium, serum 4.4 mmol/L 3.5-5.2 chloride, serum 106 mmol/L 98-107 blood glucose 102 mg/dL 65-110 urea nitrogen, blood 24 mg/dL 7-18 creatinine, serum 0.77 mg/dL 0.55-1.30 alanine aminotransferase (SGPT), serum 30 U/L aspartate aminotransferase (SGOT), serum 15 U/L 15-37 calcium, serum 8.3 mg/dL 8.5-10.1 bilirubin, serum, total 0.30 mg/dL 0.00-1.00 sodium, serum 139 mmol/L 587-826 8160/11/25 carbon dioxide, venous blood 27.9 mmol/L 21.0-32.0 potassium, serum 4.7 mmol/L 3.5-5.2 chloride, serum 105 mmol/L 98-107 blood glucose 94 mg/dL 65-110 urea nitrogen, blood 21 mg/dL 7-18 creatinine, serum 0.79 mg/dL 0.55-1.30 alanine aminotransferase (SGPT), serum 40 U/L 12-78 aspartate aminotransferase (SGOT), serum 22 U/L 15-37 calcium, serum 8.5 mg/dL 8.5-10.1 bilirubin, serum, total 0.80 mg/dL 0.00-1.00 sodium, serum 141 mmol/L 131-903 2443/11/11 carbon dioxide, venous blood 26.8 mmol/L 21.0-32.0 potassium, serum 4.2 mmol/L 3.5-5.2 chloride, serum 106 mmol/L 98-107 blood glucose 95 mg/dL 65-110 urea nitrogen, blood 18 mg/dL 7-18 creatinine, serum 0.70 mg/dL 0.55-1.30 alanine aminotransferase (SGPT), serum 33 U/L -78 aspartate aminotransferase (SGOT), serum 22 U/L 15-37 calcium, serum 8.5 mg/dL 8.5-10.1 bilirubin, serum, total 0.30 mg/dL 0.00-1.00 Lab Report: VITAMIN D, 25-HYDROXY/93505 - Chemistry vitamin D 25-hydroxy, serum 24 ng/mL 30-100 Encounters Code Encounter Date Provider Facility CPT-06586 Level 2 Est. Patient 14:30:43 ROD Viramontes APRN [facility] CPT-25622 Level 4 Est. Patient 09:14:36 ACTIVITIES LEADER Rikki GRANADOS [facility] CPT-49375 Level 2 Est. Patient 09:07:32 CDT Marta Viramontes APRN [facility] CPT-84577 Level 4 Est. Patient 11:55:00 CDT Rikki GRANADOS [facility] CPT-61599 Level 3 Est. Patient 13:25:16 CDT Jennifer Chun MD PhD [facility] CPT-43185 Level 3 Est. Patient 17:31:22 CDT Solomon Alamo MD [facility] CPT-33515 Level 3 Est. Patient 08:02:14 CDT Solomon Alamo MD [facility] CPT-42782 Level 3 Est. Patient 17:23:53 CDT Rikki GRANADOS [facility] CPT-21808 Level 3 Est. Patient 11:22:41 CDT Darryn Hearn [facility] Procedures Code Procedure Name Date Entry Date Standard Description CPT-76060 Venipuncture Draw Fee 09:22:28 ACTIVITIES LEADER CPT-36592 Chest 2V Frontal and Lat 09:22:27 ACTIVITIES LEADER CPT-I/D I/D Abscess 09:43:13 CDT CPT-11002 Venipuncture Draw Fee 08:16:46 ACTIVITIES LEADER CPT-41555 Venipuncture Draw Fee 08:18:55 ACTIVITIES LEADER CPT-90214 Venipuncture Draw Fee 08:31:18 ACTIVITIES LEADER CPT-13325 Venipuncture Draw Fee 11:42:52 ACTIVITIES LEADER CPT-59444 Venipuncture Draw Fee 13:26:37 ACTIVITIES LEADER CPT-32144 Venipuncture Draw Fee 09:23:38 ACTIVITIES LEADER CPT-000 Give Appropriate Tetanus Booster 10:23:50 CDT CPT-59716 Bone Density 08:28:45 CDT CPT-25083 Bone Density 11:35:15 CDT CPT-PV Prev. Care Visit 12:19:00 CDT CPT-96368 Venipuncture Draw Fee 15:02:58 CDT
--- OUTSIDE RECORDS SUMMARY | 2018-01-19 07:32 | XMS REPORT | Clinical Summary ---
Author Author Admin, E Organization [facility] Address Unknown Phone Unavailable Allergies, Adverse Reactions, Alerts Allergy Name Reaction Description Start Date Severity Status Provider SULFA facial swelling Critical Active Jocelyne Naff HAND LEATHER TRIMMER Conditions or Problems Problem Name Problem Code Onset Date Status Entry Date Provider Comment Standard Description Annotate G E R D 530.81 Active Jocelyne Naff HAND LEATHER TRIMMER Esophageal reflux FH COLON CANCER V16.0 Active Jocelyne Naff HAND LEATHER TRIMMER Family history of malignant neoplasm of [...] cap by mouth twice daily DOXYCYCLINE HYCLATE 77665024918 Active Rikki GRANADOS Active VITAMIN D3 89201 UNIT CAPS 1 pill by mouth weekly, for vitamin D deficiency CHOLECALCIFEROL 14695227908 Active Jennifer Chun MD PhD Active ANASTROZOLE 1 MG ORAL TABS Take one by mouth daily ANASTROZOLE 65033403345 Active Jennifer Chun MD PhD Active ZITHROMAX 250 MG TAB 2 po today, then 1 po q days 2-5 AZITHROMYCIN 18203982522 No Longer Active Rikki Daryn GRANADOS Active MECLIZINE HCL 25 MG TABS 1 prn MECLIZINE HCL 78689629036 No Longer Active Solomon Alamo MD Active CHERATUSSIN AC SYRP prn as directed GUAIFENESIN- CODEINE SYRP 24768546870 No Longer Active Rikki Daryn PA Active MULTIVITAMINS TABS 1qd MULTIPLE VITAMIN 90137116620 No Longer Active Rikki Daryn PA Active CLARITIN 10 MG TABS 1prn LORATADINE 91320807609 Active Jocelyne Naff HAND LEATHER TRIMMER Active ASPIRIN 81 MG TABS 1qd ASPIRIN 16710717585 Active Jocelyne Naff HAND LEATHER TRIMMER Active OMEPRAZOLE 20 MG CPDR 1 PO Q D OMEPRAZOLE 37461650218 Active Rikki Daryn PA Active ZITHROMAX Z-CAROLYN 250 MG TABS 2x1day,9p6gxsz AZITHROMYCIN 16167214095 No Longer Active Jocelyne Lovell HAND LEATHER TRIMMER Active MULTIVITAMINS TABS 1qd MULTIVITAMINS TABS MULTIPLE VITAMIN Inactive CHERATUSSIN AC SYRP prn as directed CHERATUSSIN AC SYRP GUAIFENESIN-CODEINE SYRP Inactive MECLIZINE HCL 25 MG TABS 1 prn MECLIZINE HCL 25 MG TABS 815730 MECLIZINE HCL Inactive ZITHROMAX Z-CAROLYN 250 MG TABS 2x1day,8q0zfuj ZITHROMAX Z-CAROLYN 250 MG TABS 3093904 AZITHROMYCIN Inactive ZITHROMAX 250 MG TAB 2 po today, then 1 po q days 2-5 ZITHROMAX 250 MG TAB 5649420 AZITHROMYCIN Inactive Vital Signs Date Name Value [...] % 11.6-14.8 platelet count 131 10^3/MM^3 10*3/mm3 439-736 7575/12/12 leukocyte count, blood 28.6 10^3/MM^3 10*3/mm3 4.6-10.2 [...] % 11.6-14.8 platelet count 237 10^3/MM^3 10*3/mm3 392-569 3495/12/23 leukocyte count, blood 6.9 10^3/MM^3 10*3/mm3 4.6-10.2 [...] % 11.6-14.8 platelet count 360 10^3/MM^3 10*3/mm3 083-421 4759/12/31 leukocyte count, blood 5.3 10^3/MM^3 10*3/mm3 4.6-10.2 [...] % 11.6-14.8 platelet count 222 10^3/MM^3 10*3/mm3 356-695 9034/01/07 leukocyte count, blood 11.7 10^3/MM^3 10*3/mm3 4.6-10.2 [...] % 11.6-14.8 platelet count 191 10^3/MM^3 10*3/mm3 754-115 5973/01/20 leukocyte count, blood 9.8 10^3/MM^3 10*3/mm3 4.6-10.2 [...] % 11.6-14.8 platelet count 195 10^3/MM^3 10*3/mm3 446-787 9935/01/28 leukocyte count, blood 11.9 10^3/MM^3 10*3/mm3 4.6-10.2 [...] % 11.6-14.8 platelet count 278 10^3/MM^3 10*3/mm3 534-694 0860/02/04 leukocyte count, blood 8.5 10^3/MM^3 10*3/mm3 4.6-10.2 [...] % 11.6-14.8 platelet count 326 10^3/MM^3 10*3/mm3 091-336 4492/02/10 leukocyte count, blood 2.3 10^3/MM^3 10*3/mm3 4.6-10.2 [...] % 11.6-14.8 platelet count 240 10^3/MM^3 10*3/mm3 030-728 9338/02/17 leukocyte count, blood 3.4 10^3/MM^3 10*3/mm3 4.6-10.2 [...] % 11.6-14.8 platelet count 308 10^3/MM^3 10*3/mm3 675-176 3615/02/25 leukocyte count, blood 6.6 10^3/MM^3 10*3/mm3 4.6-10.2 [...] Panel - Chemistry sodium, serum 144 mmol/L 234-342 7969/12/16 potassium, serum 4.5 mmol/L 3.5-5.2 chloride, serum 107 mmol/L 98-107 carbon dioxide, venous blood 31.4 mmol/L 21.0-32.0 blood glucose 104 mg/dL 65-110 urea nitrogen, blood 17 mg/dL 7-18 creatinine, serum 1.10 mg/dL 0.60-1.30 alanine aminotransferase (SGPT), serum 25 U/L 12-78 aspartate aminotransferase (SGOT), serum 24 U/L 15-37 calcium, serum 8.4 mg/dL 8.5-10.1 bilirubin, serum, total 0.20 mg/dL 0.00-1.00 sodium, serum 141 mmol/L 199-976 5894/01/14 potassium, serum 4.9 mmol/L 3.5-5.2 chloride, serum [...] % 11.6-14.8 platelet count 376 10^3/MM^3 10*3/mm3 435-558 7091/12/16 leukocyte count, blood 19.5 10^3/MM^3 10*3/mm3 4.6-10.2 [...] Panel - Chemistry sodium, serum 140 mmol/L 751-691 5093/07/13 potassium, serum 4.5 mmol/L 3.5-5.2 chloride, serum 106 mmol/L 98-107 carbon dioxide, venous blood 27.7 mmol/L 21.0-32.0 blood glucose 105 mg/dL 65-110 urea nitrogen, blood 14 mg/dL 7-18 creatinine, serum 0.90 mg/dL 0.60-1.30 alanine aminotransferase (SGPT), serum 29 U/L 12-78 aspartate aminotransferase (SGOT), serum 22 U/L 15-37 calcium, serum 9.4 mg/dL 8.5-10.1 bilirubin, serum, total 0.70 mg/dL 0.00-1.00 cholesterol, serum 160 mg/dL 439-995 3389/07/13 triglyceride, serum, fasting 63 mg/dL 30-200 HDL [...] Panel - Chemistry sodium, serum 141 mmol/L 608-639 7877/02/10 potassium, serum 5.2 mmol/L 3.5-5.2 chloride, serum 106 mmol/L 98-107 carbon dioxide, venous blood 27.8 mmol/L 21.0-32.0 blood glucose 111 mg/dL 65-110 urea nitrogen, blood 18 mg/dL 7-18 creatinine, serum 0.90 mg/dL 0.60-1.30 alanine aminotransferase (SGPT), serum 29 U/L 12-78 aspartate aminotransferase (SGOT), serum 21 U/L 15-37 calcium, serum 8.3 mg/dL 8.5-10.1 bilirubin, serum, total 0.40 mg/dL 0.00-1.00 Lab Report: VITAMIN D, 25-HYDROXY/74276 - Chemistry vitamin D 25-hydroxy, serum 24 ng/mL 30-100 Encounters Code Encounter Date Provider Facility CPT-76981 Level 3 Est. Patient 13:25:16 CDT Jennifer Chun MD PhD [facility] CPT-76130 Level 3 Est. Patient 17:31:22 CDT Solomon Alamo MD [facility] CPT-85924 Level 3 Est. Patient 08:02:14 CDT Solomon Alamo MD [facility] CPT-50134 Level 3 Est. Patient 17:23:53 CDT Rikki Stearns [facility] CPT-80903 Level 3 Est. Patient 11:22:41 CDT Darryn Hearn [facility] Procedures Code Procedure Name Date Entry Date Standard Description CPT-I/D I/D Abscess 09:43:13 CDT CPT-26612 Venipuncture Draw Fee 08:16:46 [employer] [place] MACHINE TENDER CPT-17872 Venipuncture Draw Fee 08:18:55 [employer] [place] MACHINE TENDER CPT-91102 Venipuncture Draw Fee 08:31:18 [employer] [place] MACHINE TENDER CPT-42114 Venipuncture Draw Fee 11:42:52 [employer] [place] MACHINE TENDER CPT-54679 Venipuncture Draw Fee 13:26:37 [employer] [place] MACHINE TENDER CPT-95663 Venipuncture Draw Fee 09:23:38 [employer] [place] MACHINE TENDER CPT-000 Give Appropriate Tetanus Booster 10:23:50 CDT CPT-00004 Bone Density 08:28:45 CDT CPT-54072 Bone Density 11:35:15 CDT CPT-PV Prev. Care Visit 12:19:00 CDT CPT-25652 Venipuncture Draw Fee 15:02:58 CDT
--- OUTSIDE RECORDS SUMMARY | 2018-01-19 07:33 | XMS REPORT | Clinical Summary ---
Author Author Admin, E Organization [facility] Address Unknown Phone Unavailable Allergies, Adverse Reactions, Alerts Allergy Name Reaction Description Start Date Severity Status Provider SULFA facial swelling Critical Active Jocelyne Naff SENIOR HR GENERALIST Conditions or Problems Problem Name Problem Code Onset Date Status Entry Date Provider Comment Standard Description Annotate G E R D 530.81 Active Jocelyne Naff SENIOR HR GENERALIST Esophageal reflux FH COLON CANCER V16.0 Active Jocelyne Naff SENIOR HR GENERALIST Family history of malignant neoplasm of gastrointestinal [...] NDC Status Provider Patient Instruction VITAMIN D3 88578 UNIT CAPS 1 qWeek x 4 months for vitamin D deficiency 04/09 CHOLECALCIFEROL 02316423789 Active Marta Viramontes APRN Active CEPHALEXIN 500 MG ORAL CAPS Take one four times a day CEPHALEXIN 48552406463 No Longer Active Marta Viramontes APRN Active BIOTIN 1000 MCG ORAL TABS Take one daily BIOTIN 33111081299 Active Rikki Daryn GRANADOS Active VITAMIN C 500 MG ORAL CAPS Take one daily ASCORBIC ACID 66325270404 Active Rikki Harms PA Active BENZONATATE 200 MG ORAL CAPS One capsule tid. BENZONATATE 05148245645 No Longer Active Rikki Harms PA Active FLONASE ALLERGY RELIEF 50 MCG/ACT NASAL SUSP spray twice in each nostril one time daily FLUTICASONE PROPIONATE 02419095954 No Longer Active Rikki Harms PA Active TUSSIONEX PENNKINETIC ER 10-8 MG/5ML LQCR 5ml po q12hr PRN Cough HYDROCOD POLST-CHLORPHEN POLST 30397784740 No Longer Active Rikki Harms PA Active NIACIN ER 500 MG ORAL CR-TABS Take one twice daily NIACIN 73045795932 Active Rikki Harms PA Active ALBUTEROL SULFATE 0.083 % NEBU SOLN one vial per nebulizer every 4-6 hours as needed ALBUTEROL SULFATE 56984888444 No Longer Active Rikki Harms PA Active MEDROL (CAROLYN) 4 MG TABS 6 tabs on day 1, 5 tabs on day 2, 4 tabs on day 3, 3 tabs on day 4, 2 tabs on day 5, 1 tab on day 6 METHYLPREDNISOLONE 77072028292 No Longer Active Rikki Harms PA Active LEVAQUIN 750 MG TABS 1 po qd x 7 days LEVOFLOXACIN 87398193300 No Longer Active Rikki Harms PA Active LEVAQUIN 500 MG ORAL TABS Take one tablet daily LEVOFLOXACIN 81157719828 No Longer Active Rikki Harms PA Active PROAIR HFA 108 (90 BASE) MCG/ACT AERS 2 puffs four times a day as needed 2014 ALBUTEROL SULFATE 43283439100 Active 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 LEVAQUIN 500 MG TAB 1 tablet by mouth daily LEVOFLOXACIN 30153999280 No Longer Active 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 CHERATUSSIN AC 100-10 MG/5ML SYRP 1 tsp by mouth every 4 hours as needed for cough GUAIFENESIN-CODEINE 21344389542 No Longer Active Rikki Harms PA Active MUPIROCIN 2 % EXT OINT Use in each nostril in am and pm MUPIROCIN 70171054163 No Longer Active Rikki Harms PA Active DOXYCYCLINE HYCLATE 100 MG ORAL CAPS Take one bid DOXYCYCLINE HYCLATE 81670560585 No Longer Active Rikki Harms PA Active CLARITIN 10 MG TABS 1prn LORATADINE 61945130890 No Longer Active Jocelyne Naff SENIOR HR GENERALIST Active ASPIRIN 81 MG TABS 1qd ASPIRIN 34437301544 No Longer Active Jocelyne Naff SENIOR HR GENERALIST Active DOXYCYCLINE HYCLATE 100 MG CAP 1 cap by mouth twice daily DOXYCYCLINE HYCLATE 86759974418 No Longer Active Rikki Harms PA Active VITAMIN D3 30581 UNIT CAPS 1 pill by mouth weekly, for vitamin D deficiency CHOLECALCIFEROL 61461206426 No Longer Active Jennifer Chun MD PhD Active ANASTROZOLE 1 MG ORAL TABS Take one by mouth daily ANASTROZOLE 71763205507 Active Jennifer Chun MD PhD Active ZITHROMAX 250 MG TAB 2 po today, then 1 po q days 2-5 AZITHROMYCIN 07415221362 No Longer Active Rikki Harms PA Active MECLIZINE HCL 25 MG TABS 1 prn MECLIZINE HCL 87339487248 No Longer Active Solomon Alamo MD Active CHERATUSSIN AC SYRP prn as directed GUAIFENESIN- CODEINE SYRP 82007625076 No Longer Active Rikki Harms PA Active MULTIVITAMINS TABS 1qd MULTIPLE VITAMIN 28308108592 No Longer Active Rikki Harms PA Active OMEPRAZOLE 20 MG CPDR 1 PO Q D OMEPRAZOLE 83485355207 Active Rikki Harms PA Active ZITHROMAX Z-CAROLYN 250 MG TABS 2x1day,[id number] AZITHROMYCIN 07010113734 No Longer Active Jocelyne Lovell SENIOR HR GENERALIST Active MULTIVITAMINS TABS 1qd MULTIVITAMINS TABS MULTIPLE VITAMIN Inactive CHERATUSSIN AC SYRP prn as directed CHERATUSSIN AC SYRP GUAIFENESIN-CODEINE SYRP Inactive MECLIZINE HCL 25 MG TABS 1 prn MECLIZINE HCL 25 MG TABS 203529 MECLIZINE HCL Inactive ASPIRIN 81 MG TABS 1qd ASPIRIN 81 MG TABS ASPIRIN Inactive CLARITIN 10 MG TABS 1prn CLARITIN 10 MG TABS 811413 LORATADINE Inactive DOXYCYCLINE HYCLATE 100 MG ORAL CAPS Take one bid DOXYCYCLINE HYCLATE 100 MG ORAL CAPS 4496558 DOXYCYCLINE HYCLATE Inactive MUPIROCIN 2 % EXT OINT Use in each nostril in am and pm MUPIROCIN 2 % EXT OINT 401968 MUPIROCIN Inactive CHERATUSSIN AC 100-10 MG/5ML SYRP 1 tsp by mouth every 4 hours as needed for cough CHERATUSSIN AC 100-10 MG/5ML SYRP 696060 GUAIFENESIN-CODEINE Inactive LEVAQUIN 500 MG TAB 1 tablet by mouth daily LEVAQUIN 500 MG TAB 042524 LEVOFLOXACIN Inactive LEVAQUIN 500 MG ORAL TABS Take one tablet daily LEVAQUIN 500 MG ORAL TABS 473186 LEVOFLOXACIN Inactive LEVAQUIN 750 MG TABS 1 po qd x 7 days LEVAQUIN 750 MG TABS 751664 LEVOFLOXACIN Inactive ALBUTEROL SULFATE 0.083 % NEBU SOLN one vial per nebulizer every 4-6 hours as needed ALBUTEROL SULFATE 0.083 % NEBU SOLN 670418 ALBUTEROL SULFATE Inactive TUSSIONEX PENNKINETIC ER 10-8 MG/5ML LQCR 5ml po q12hr PRN Cough TUSSIONEX PENNKINETIC ER 10-8 MG/5ML LQCR HYDROCOD POLST- CHLORPHEN POLST Inactive FLONASE ALLERGY RELIEF 50 MCG/ACT NASAL SUSP spray twice in each nostril one time daily FLONASE ALLERGY RELIEF 50 MCG/ACT NASAL SUSP 0684331 FLUTICASONE PROPIONATE Inactive BENZONATATE 200 MG ORAL CAPS One capsule tid. BENZONATATE 200 MG ORAL CAPS 091039 BENZONATATE Inactive CEPHALEXIN 500 MG ORAL CAPS Take one four times a day CEPHALEXIN 500 MG ORAL CAPS 844111 CEPHALEXIN Inactive ZITHROMAX Z-CAROLYN 250 MG TABS 2x1day,[id number] ZITHROMAX Z-CAROLYN 250 MG TABS 4793754 AZITHROMYCIN Inactive ZITHROMAX 250 MG TAB 2 po today, then 1 po q days 2-5 ZITHROMAX 250 MG TAB 9556255 AZITHROMYCIN Inactive VITAMIN D3 21222 UNIT CAPS 1 pill by mouth weekly, for vitamin D deficiency VITAMIN D3 04222 UNIT CAPS CHOLECALCIFEROL Inactive DOXYCYCLINE HYCLATE 100 MG CAP 1 cap by mouth twice daily DOXYCYCLINE HYCLATE 100 MG CAP 0728628 DOXYCYCLINE HYCLATE Inactive MEDROL (CAROLYN) 4 MG TABS 6 tabs on day 1, 5 tabs on day 2, 4 tabs on day 3, 3 tabs on day 4, 2 tabs on day 5, 1 tab on day 6 MEDROL ( CAROLYN) 4 MG TABS 060824 METHYLPREDNISOLONE Inactive Vital Signs Date Name Value [...] Panel - Chemistry sodium, serum 142 mmol/L 471-842 3080/07/25 potassium, serum 4.0 mmol/L 3.5-5.2 chloride, serum 107 mmol/L 98-107 carbon dioxide, venous blood 31.6 mmol/L 21.0-32.0 blood glucose 108 mg/dL 65-110 calcium, serum 9.2 mg/dL 8.5-10.1 urea nitrogen, blood 20 mg/dL 7-18 creatinine, serum 0.92 mg/dL 0.55-1.30 sodium, serum 141 mmol/L 914-978 2724/11/11 potassium, serum 4.2 mmol/L 3.5-5.2 chloride, serum [...] % 11.6-14.8 platelet count 269 10^3/MM^3 10*3/mm3 964-910 3530/12/16 leukocyte count, blood 3.2 10^3/MM^3 10*3/mm3 4.6-10.2 [...] % 11.6-14.8 platelet count 158 10^3/MM^3 10*3/mm3 114-565 2142/12/18 hemoglobin, blood 11.6 g/dL 12.0-16.0 hematocrit, blood 35.0 % 36.0-46.0 mean corpuscular volume, RBC 93 fL 80-97 mean corpuscular hemoglobin, RBC 30.9 pg 27.0-31.2 mean corpuscular hemoglobin concentration, RBC 33.3 G/DL % 31.8- 35.4 red blood cell distribution width 15.9 % 11.6-14.8 platelet count 207 10^3/MM^3 10*3/mm3 398-789 5343/12/23 leukocyte count, blood 6.2 10^3/MM^3 10*3/mm3 4.6-10.2 [...] % 11.6-14.8 platelet count 183 10^3/MM^3 10*3/mm3 460-843 7092/12/30 leukocyte count, blood 5.2 10^3/MM^3 10*3/mm3 4.6-10.2 neutrophils as percent of blood leukocytes 70.2 % 42.2-75.2 monocytes as percent of blood leukocytes 9.2 % 1.7-9.3 erythrocyte (RBC) count 3.76 10^6/MM^3 10*6/mm3 4.04-5.48 lymphocytes as percent of blood leukocytes 21.3 % 20.5-51.1 monocytes as percent of blood leukocytes 32.3 % 1.7-9.3 neutrophils as percent of blood leukocytes 37.0 % 42.2-75.2 leukocyte count, blood 8.8 10^3/MM^3 10*3/mm3 4.6-10.2 lymphocytes as percent of blood leukocytes 15.8 [...] Panel - Chemistry sodium, serum 142 mmol/L 156-089 6615/02/04 carbon dioxide, venous blood 24.9 mmol/L 21.0-32.0 potassium, serum 4.1 mmol/L 3.5-5.2 chloride, serum 106 mmol/L 98-107 blood glucose 103 mg/dL 65-110 urea nitrogen, blood 25 mg/dL 7-18 creatinine, serum 0.83 mg/dL 0.55-1.30 alanine aminotransferase (SGPT), serum 38 U/L -78 aspartate aminotransferase (SGOT), serum 26 U/L 15-37 calcium, serum 8.7 mg/dL 8.5-10.1 bilirubin, serum, total 0.30 mg/dL 0.00-1.00 sodium, serum 140 mmol/L 968-906 3169/01/06 carbon dioxide, venous blood 27.2 mmol/L 21.0-32.0 potassium, serum 4.1 mmol/L 3.5-5.2 chloride, serum 105 mmol/L 98-107 blood glucose 70 mg/dL 65-110 urea nitrogen, blood 25 mg/dL 7-18 creatinine, serum 0.90 mg/dL 0.55-1.30 alanine aminotransferase (SGPT), serum 28 U/L aspartate aminotransferase (SGOT), serum 20 U/L -37 calcium, serum 8.9 mg/dL 8.5-10.1 bilirubin, serum, total 0.40 mg/dL 0.00-1.00 sodium, serum 140 mmol/L 746-396 7600/01/13 carbon dioxide, venous blood 26.4 mmol/L 21.0-32.0 potassium, serum 4.2 mmol/L 3.5-5.2 chloride, serum 104 mmol/L 98-107 blood glucose 101 mg/dL 65-110 urea nitrogen, blood 18 mg/dL 7-18 creatinine, serum 0.80 mg/dL 0.55-1.30 alanine aminotransferase (SGPT), serum 28 U/L aspartate aminotransferase (SGOT), serum 24 U/L 15- calcium, serum 8.7 mg/dL 8.5-10.1 bilirubin, serum, [...] % 11.6-14.8 platelet count 271 10^3/MM^3 10*3/mm3 982-650 4322/01/13 leukocyte count, blood 5.2 10^3/MM^3 10*3/mm3 4.6-10.2 [...] % 11.6-14.8 platelet count 289 10^3/MM^3 10*3/mm3 167-961 8790/01/06 leukocyte count, blood 4.1 10^3/MM^3 10*3/mm3 4.6-10.2 [...] Panel - Chemistry sodium, serum 140 mmol/L 549-828 2096/12/16 carbon dioxide, venous blood 25.4 mmol/L 21.0-32.0 potassium, serum 4.1 mmol/L 3.5-5.2 chloride, serum 104 mmol/L 98-107 blood glucose 110 mg/dL 65-110 urea nitrogen, blood 24 mg/dL 7-18 creatinine, serum 0.87 mg/dL 0.55-1.30 alanine aminotransferase (SGPT), serum 35 U/L - aspartate aminotransferase (SGOT), serum 21 U/L - calcium, serum 8.4 mg/dL 8.5-10.1 bilirubin, serum, total 0.50 mg/dL 0.00-1.00 sodium, serum 139 mmol/L 675-101 5590/12/30 carbon dioxide, venous blood 28.2 mmol/L 21.0-32.0 potassium, serum 3.9 mmol/L 3.5-5.2 chloride, serum 105 mmol/L 98-107 blood glucose 91 mg/dL 65-110 urea nitrogen, blood 17 mg/dL 7-18 creatinine, serum 0.81 mg/dL 0.55-1.30 alanine aminotransferase (SGPT), serum 29 U/L aspartate aminotransferase (SGOT), serum 22 U/L - calcium, serum 8.8 mg/dL 8.5-10.1 bilirubin, serum, total 0.50 mg/dL 0.00-1.00 sodium, serum 143 mmol/L 314-795 0342/12/23 carbon dioxide, venous blood 24.6 mmol/L 21.0-32.0 [...] (L) - Chemistry cholesterol, serum 177 mg/dL 488-010 7490/10/31 triglyceride, serum, fasting 64 mg/dL 30-200 HDL cholesterol, serum 77 mg/dL 32-96 LDL cholesterol, serum 87 mg/dL 0-130 TSH 2.13 m[iU]/mL 0.36-3.74 Lab Report: VITAMIN D, 25-HYDROXY/36109 - Chemistry vitamin D 25-hydroxy, serum 25 ng/mL 30-100 Encounters Code Encounter Date Provider Facility CPT-74690 Level 4 Est. Patient 17:31:07 CDT Marta Viramontes [facility] CPT-94939 Level 3 Est. Patient 05:11:40 CDT Rikki GRANADOS [facility] CPT-10437 Level 2 Est. Patient 14:30:43 MOTION PICTURE COMMENTATOR Marta Viramontes [facility] CPT-51660 Level 4 Est. Patient 09:14:36 MOTION PICTURE COMMENTATOR Rikki GRANADOS [facility] CPT-76987 Level 2 Est. Patient 09:07:32 CDT Marta Viramontes [facility] CPT-85151 Level 4 Est. Patient 11:55:00 CDT Rikki GRANADOS [facility] CPT-17671 Level 3 Est. Patient 13:25:16 CDT Jennifer Chun MD PhD [facility] CPT-61627 Level 3 Est. Patient 17:31:22 CDT Solomon Alamo MD [facility] CPT-18971 Level 3 Est. Patient 08:02:14 CDT Solomon Alamo MD [facility] CPT-73909 Level 3 Est. Patient 17:23:53 CDT Rikki Stearns [facility] CPT-66600 Level 3 Est. Patient 11:22:41 CDT Darryn Hearn [facility] Procedures Code Procedure Name Date Entry Date Standard Description CPT-74379 BMP - LAB USE ONLY 10:32:33 MOTION PICTURE COMMENTATOR CPT-33147 Venipuncture Draw Fee 10:32:33 MOTION PICTURE COMMENTATOR CPT-78275 Magnesium - LAB USE ONLY 09:54:30 CDT CPT-58975 TSH - LAB USE ONLY 09:54:30 CDT CPT-56719 Lipid - LAB USE ONLY 09:54:30 CDT CPT-49616 Venipuncture Draw Fee 09:54:29 CDT CPT-13116 Venipuncture Draw Fee 18:27:04 CDT CPT-44125 Chest 2V Frontal and Lat 10:57:00 MOTION PICTURE COMMENTATOR CPT-91440 Venipuncture Draw Fee 10:56:59 MOTION PICTURE COMMENTATOR CPT-78810 Venipuncture Draw Fee 09:22:28 MOTION PICTURE COMMENTATOR CPT-52038 Chest 2V Frontal and Lat 09:22:27 MOTION PICTURE COMMENTATOR CPT-I/D I/D Abscess 09:43:13 CDT CPT-27417 Venipuncture Draw Fee 08:16:46 MOTION PICTURE COMMENTATOR CPT-29216 Venipuncture Draw Fee 08:18:55 MOTION PICTURE COMMENTATOR CPT-78539 Venipuncture Draw Fee 08:31:18 MOTION PICTURE COMMENTATOR CPT-48250 Venipuncture Draw Fee 11:42:52 MOTION PICTURE COMMENTATOR CPT-03173 Venipuncture Draw Fee 13:26:37 MOTION PICTURE COMMENTATOR CPT-36672 Venipuncture Draw Fee 09:23:38 MOTION PICTURE COMMENTATOR CPT-000 Give Appropriate Tetanus Booster 10:23:50 CDT CPT-29206 Bone Density 08:28:45 CDT CPT-70598 Bone Density 11:35:15 CDT CPT-PV Prev. Care Visit 12:19:00 CDT CPT-40807 Venipuncture Draw Fee 15:02:58 CDT
--- OUTSIDE RECORDS SUMMARY | 2018-01-19 07:34 | XMS REPORT | Clinical Summary ---
Author Author Admin, QUITA Organization [facility] [place] Address Unknown Phone Unavailable Allergies, Adverse Reactions, Alerts Allergy Name Reaction Description Start Date Severity Status Provider SULFA facial swelling Critical Active Jocelyne Naff [employer]HB[employer]HOOD PL[employer]NER Conditions or Problems Problem Name Problem Code Onset Date Status Entry Date Provider Comment Standard Description Annotate G E R D 530.81 Active Jocelyne Naff [employer]HBORHOOD PLANNER Esophageal reflux FH COLON CANCER V16.0 Active Jocelyne Naff NEIGHBORHOOD PLANNER Family history of malignant neoplasm of gastrointestinal [...] (natural) Breast cancer 174.9 Resolved Marta Viramontes [employer] WORKER Malignant neoplasm of breast (female), unspecified [...] Ingrown toenail, left 703.0 Resolved Marta Yokum [employer] ROOM WORKER Ingrowing nail cellulitis, finger, right 681.00 Resolved Marta Yokum [employer] RO[employer] WORKER Cellulitis and abscess of finger, unspecified Cough 786.2 Resolved Marta Yokum [employer] RO[employer] WORKER Cough Bronchitis, acute 466.0 Active Marta Yokum [employer] RO[employer] WORKER Acute bronchitis Breast microcalcification ICD-793.81 Inactive Jennifer Chun MD PhD Abnormal Mammogram ICD-793.80 Inactive Jennifer Chun MD PhD Breast cancer ICD-174.9 Inactive Marta Yokum [employer] RO[employer] WORKER Soft tissue infection ICD-528.9 Inactive Rikki Harms PA Abscess, skin ICD-682.9 Inactive Rikki Harms PA Cellulitis, 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 Rikki Harms PA Rash ICD-782.1 Inactive Rikki Harms PA Upper respiratory infection, acute ICD-465.9 Inactive Rikki Harms PA Chemotherapy ICD-V58.11 Inactive Rikki Harms PA Cough, chronic ICD-786.2 Inactive Rikki Harms PA Ingrown toenail, left ICD-703.0 Inactive Marta Yokum [employer] RO[employer] WORKER cellulitis, finger, right ICD-681.00 Inactive Marta Yokum [employer] ROOM WORKER Cough ICD-786.2 Inactive Marta Yokum [employer] RO[employer] WORKER Medication List Medication Instructions Start Date Stop Date Generic Name NDC Status Provider Patient Instruction PROAIR HFA 108 (90 BASE) MCG/ACT INHALATION AEROSOL SOLUTION 2 puffs four times a day as needed ALBUTEROL SULFATE 65082261733 No Longer Active Marta Yokum [employer] ROOM WORKER Active DOXYCYCLINE HYCLATE 100 MG ORAL CAPSULE 1 cap by mouth twice daily DOXYCYCLINE HYCLATE 01286134408 No Longer Active Marta Yokum [employer] RO[employer] WORKER Active PROAIR HFA 108 (90 BASE) MCG/ACT INHALATION AEROSOL SOLUTION 2 puffs four times a day as needed ALBUTEROL SULFATE 16358798838 Active Marta Yokum [employer] RO[employer] WORKER Active AUGMENTIN 875-125 MG ORAL TABLET Take one tablet twice a day with food 04/25 AMOXICILLIN-POT CLAVULANATE 60294703231 No Longer Active Marta Yokum [employer] RO[employer] WORKER Active TESSALON PERLES 100 MG ORAL CAPSULE 1 to 2 tablets by mouth 3 times daily as needed for cough BENZONATATE 84578988778 No Longer Active Marta Yokum [employer] ROOM WORKER Active AUGMENTIN 875-125 MG ORAL TABLET 1 po BID x 10 days AMOXICILLIN-POT CLAVULANATE 29189455001 No Longer Active Marta Yokum [employer] ROOM WORKER Active MEDROL 4 MG ORAL TABLET THERAPY PACK 6 tabs on day 1, 5 tabs on day 2, 4 tabs on day 3, 3 tabs on day 4, 2 tabs on day 5, 1 tab on day 6 METHYLPREDNISOLONE 56130451190 No Longer Active Marta Yokum [employer] ROOM WORKER Active TUSSIONEX PENNKINETIC ER 10-8 MG/5ML ORAL SUSPENSION EXTENDED RELEASE 5ml po q12hr PRN Cough HYDROCOD POLST-CHLORPHEN POLST 73183241377 Active Marta Yokum [employer] ROOM WORKER Active KEFLEX 500 MG ORAL CAPSULE 1 po qid CEPHALEXIN 34454152887 No Longer Active Marta Yokum [employer] ROOM WORKER Active B COMPLEX 50 ORAL TABLET EXTENDED RELEASE B COMPLEX VITAMINS 42727450689 Active Marta Yokum [employer] ROOM WORKER Active TUSSIONEX PENNKINETIC ER 10-8 MG/5ML ORAL SUSPENSION EXTENDED RELEASE 5ml po q12hr PRN Cough HYDROCOD POLST-CHLORPHEN POLST 62906563610 No Longer Active Marta Yokum [employer] RO[employer] WORKER Active VITAMIN D3 06168 UNIT ORAL CAPSULE 1 qWeek x 4 months for vitamin D deficiency CHOLECALCIFEROL 75596340126 Active Marta Yokum [employer] RO[employer] WORKER Active CEPHALEXIN 500 MG ORAL CAPSULE Take one four times a day CEPHALEXIN 45387772099 No Longer Active Marta Yokum [employer] ROOM WORKER Active BIOTIN 1000 MCG ORAL TABLET Take one daily BIOTIN 00814047787 Active Rikki Harms PA Active VITAMIN C 500 MG ORAL CAPSULE Take one daily ASCORBIC ACID 88859424278 Active Rikki Harms PA Active BENZONATATE 200 MG ORAL CAPSULE One capsule tid. BENZONATATE 37792144480 No Longer Active Rikki Harms PA Active FLONASE ALLERGY RELIEF 50 MCG/ACT NASAL SUSPENSION spray twice in each nostril one time daily FLUTICASONE PROPIONATE 54564820714 No Longer Active Rikki Harms PA Active TUSSIONEX PENNKINETIC ER 10-8 MG/5ML ORAL SUSPENSION EXTENDED RELEASE 5ml po q12hr PRN Cough HYDROCOD POLST-CHLORPHEN POLST 11340593060 No Longer Active Rikki Harms PA Active NIACIN ER 500 MG ORAL TABLET EXTENDED RELEASE Take one twice daily NIACIN 94240925058 Active Rikki Harms PA Active ALBUTEROL SULFATE (2.5 MG/3ML) 0.083% INHALATION NEBULIZATION SOLUTION one vial per nebulizer every 4-6 hours as needed ALBUTEROL SULFATE 25200377657 No Longer Active Rikki Harms PA Active MEDROL 4 MG ORAL TABLET THERAPY PACK 6 tabs on day 1, 5 tabs on day 2, 4 tabs on day 3, 3 tabs on day 4, 2 tabs on day 5, 1 tab on day 6 METHYLPREDNISOLONE 94618842389 No Longer Active Rikki Harms PA Active LEVAQUIN 750 MG ORAL TABLET 1 po qd x 7 days LEVOFLOXACIN 20015912412 No Longer Active Rikki Harms PA Active LEVAQUIN 500 MG ORAL TABLET Take one tablet daily LEVOFLOXACIN 34678804758 No Longer Active Rikki Harms PA Active LEVAQUIN 500 MG ORAL TABLET 1 tablet by mouth daily LEVOFLOXACIN 28422851725 No Longer Active Marta Viramontes APRN Active CHERATUSSIN AC 100-10 MG/5ML ORAL SYRUP 1 tsp by mouth every 4 hours as needed for cough GUAIFENESIN-CODEINE 76099157333 No Longer Active Rikki Harms PA Active MUPIROCIN 2 % EXTERNAL OINTMENT Use in each nostril in am and pm MUPIROCIN 65889498225 No Longer Active Rikki Harms PA Active DOXYCYCLINE HYCLATE 100 MG ORAL CAPSULE Take one bid DOXYCYCLINE HYCLATE 83002136999 No Longer Active Rikki Harms PA Active CLARITIN 10 MG ORAL TABLET 1prn LORATADINE 73302896629 No Longer Active Jocelyne Naff NEIGHBORHOOD PLANNER Active ASPIRIN 81 MG ORAL TABLET 1qd ASPIRIN 67047382771 No Longer Active Jocelyne Naff NEIGHBORHOOD PLANNER Active DOXYCYCLINE HYCLATE 100 MG ORAL CAPSULE 1 cap by mouth twice daily DOXYCYCLINE HYCLATE 42736809807 No Longer Active Rikki Harms PA Active VITAMIN D3 52022 UNIT ORAL CAPSULE 1 pill by mouth weekly, for vitamin D deficiency CHOLECALCIFEROL 16026233948 No Longer Active Jennifer Chun MD PhD Active ANASTROZOLE 1 MG ORAL TABLET Take one by mouth daily ANASTROZOLE 34622657876 Active Jennifer Chun MD PhD Active ZITHROMAX 250 MG ORAL TABLET 2 po today, then 1 po q days 2-5 AZITHROMYCIN 76492792752 No Longer Active Rikki Harms PA Active MECLIZINE HCL 25 MG ORAL TABLET 1 prn MECLIZINE HCL 07342697244 No Longer Active Solomon Alamo MD Active CHERATUSSIN AC SYRUP prn as directed GUAIFENESIN- CODEINE SYRP 14057728498 No Longer Active Rikki Harms PA Active MULTIVITAMINS TABS 1qd MULTIPLE VITAMIN 17169382167 No Longer Active Rikki Harms PA Active OMEPRAZOLE 20 MG ORAL CAPSULE DELAYED RELEASE 1 PO Q D OMEPRAZOLE 64214035549 Active Jocelyne Naff [employer]HBORHOOD PLANNER Active ZITHROMAX Z-CAROLYN 250 MG ORAL TABLET 2x1day,[id number] AZITHROMYCIN 80318143880 No Longer Active Jocelyne Naff NEIGHBORHOOD PLANNER Active MULTIVITAMINS TABS 1qd MULTIVITAMINS TABS MULTIPLE VITAMIN Inactive CHERATUSSIN AC SYRUP prn as directed CHERATUSSIN AC SYRUP GUAIFENESIN-CODEINE SYRP Inactive MECLIZINE HCL 25 MG ORAL TABLET 1 prn MECLIZINE HCL 25 MG ORAL TABLET 780107 MECLIZINE HCL Inactive ASPIRIN 81 MG ORAL TABLET 1qd ASPIRIN 81 MG ORAL TABLET 502346 ASPIRIN Inactive CLARITIN 10 MG ORAL TABLET 1prn CLARITIN 10 MG ORAL TABLET 543114 LORATADINE Inactive DOXYCYCLINE HYCLATE 100 MG ORAL CAPSULE Take one bid DOXYCYCLINE HYCLATE 100 MG ORAL CAPSULE 4014586 DOXYCYCLINE HYCLATE Inactive MUPIROCIN 2 % EXTERNAL OINTMENT Use in each nostril in am and pm MUPIROCIN 2 % EXTERNAL OINTMENT 773904 MUPIROCIN Inactive CHERATUSSIN AC 100-10 MG/5ML ORAL SYRUP 1 tsp by mouth every 4 hours as needed for cough CHERATUSSIN AC 100-10 MG/5ML ORAL SYRUP 485373 GUAIFENESIN-CODEINE Inactive LEVAQUIN 500 MG ORAL TABLET 1 tablet by mouth daily LEVAQUIN 500 MG ORAL TABLET 298771 LEVOFLOXACIN Inactive LEVAQUIN 500 MG ORAL TABLET Take one tablet daily LEVAQUIN 500 MG ORAL TABLET 710302 LEVOFLOXACIN Inactive LEVAQUIN 750 MG ORAL TABLET 1 po qd x 7 days LEVAQUIN 750 MG ORAL TABLET 755163 LEVOFLOXACIN Inactive ALBUTEROL SULFATE (2.5 MG/3ML) 0.083% INHALATION NEBULIZATION SOLUTION one vial per nebulizer every 4-6 hours as needed ALBUTEROL SULFATE (2.5 MG/3ML) 0.083% INHALATION NEBULIZATION SOLUTION 180558 ALBUTEROL SULFATE Inactive TUSSIONEX PENNKINETIC ER 10-8 MG/5ML ORAL SUSPENSION EXTENDED RELEASE 5ml po q12hr PRN Cough TUSSIONEX PENNKINETIC ER 10-8 MG/5ML ORAL SUSPENSION EXTENDED RELEASE HYDROCOD POLST-CHLORPHEN POLST Inactive FLONASE ALLERGY RELIEF 50 MCG/ACT NASAL SUSPENSION spray twice in each nostril one time daily FLONASE ALLERGY RELIEF 50 MCG/ ACT NASAL SUSPENSION 4690025 FLUTICASONE PROPIONATE Inactive BENZONATATE 200 MG ORAL CAPSULE One capsule tid. BENZONATATE 200 MG ORAL CAPSULE 387680 BENZONATATE Inactive CEPHALEXIN 500 MG ORAL CAPSULE Take one four times a day CEPHALEXIN 500 MG ORAL CAPSULE 118404 CEPHALEXIN Inactive TUSSIONEX PENNKINETIC ER 10-8 MG/5ML ORAL SUSPENSION EXTENDED RELEASE 5ml po q12hr PRN Cough TUSSIONEX PENNKINETIC ER 10-8 MG/5ML ORAL SUSPENSION EXTENDED RELEASE HYDROCOD POLST-CHLORPHEN POLST Inactive TESSALON PERLES 100 MG ORAL CAPSULE 1 to 2 tablets by mouth 3 times daily as needed for cough TESSALON PERLES 100 MG ORAL CAPSULE 067832 BENZONATATE Inactive PROAIR HFA 108 (90 BASE) MCG/ACT INHALATION AEROSOL SOLUTION 2 puffs four times a day as needed PROAIR HFA 108 (90 BASE) MCG/ACT INHALATION AEROSOL SOLUTION ALBUTEROL SULFATE Inactive ZITHROMAX Z-CAROLYN 250 MG ORAL TABLET 2x1day,2s1byfp ZITHROMAX Z-CAROLYN 250 MG ORAL TABLET 825978 AZITHROMYCIN Inactive ZITHROMAX 250 MG ORAL TABLET 2 po today, then 1 po q days 2-5 ZITHROMAX 250 MG ORAL TABLET 642316 AZITHROMYCIN Inactive VITAMIN D3 97733 UNIT ORAL CAPSULE 1 pill by mouth weekly, for vitamin D deficiency VITAMIN D3 07853 UNIT ORAL CAPSULE CHOLECALCIFEROL Inactive DOXYCYCLINE HYCLATE 100 MG ORAL CAPSULE 1 cap by mouth twice daily DOXYCYCLINE HYCLATE 100 MG ORAL CAPSULE 3595730 DOXYCYCLINE HYCLATE Inactive MEDROL 4 MG ORAL TABLET THERAPY PACK 6 tabs on day 1, 5 tabs on day 2, 4 tabs on day 3, 3 tabs on day 4, 2 tabs on day 5, 1 tab on day 6 MEDROL 4 MG ORAL TABLET THERAPY PACK 631223 METHYLPREDNISOLONE Inactive KEFLEX 500 MG ORAL CAPSULE 1 po qid KEFLEX 500 MG ORAL CAPSULE 873946 CEPHALEXIN Inactive MEDROL 4 MG ORAL TABLET THERAPY PACK 6 tabs on day 1, 5 tabs on day 2, 4 tabs on day 3, 3 tabs on day 4, 2 tabs on day 5, 1 tab on day 6 MEDROL 4 MG ORAL TABLET THERAPY PACK 069331 METHYLPREDNISOLONE Inactive AUGMENTIN 875-125 MG ORAL TABLET 1 po BID x 10 days AUGMENTIN 875-125 MG ORAL TABLET 910375 AMOXICILLIN-POT CLAVULANATE Inactive AUGMENTIN 875-125 MG ORAL TABLET Take one tablet twice a day with food 04/25 AUGMENTIN 875-125 MG ORAL TABLET 239307 AMOXICILLIN-POT CLAVULANATE Inactive DOXYCYCLINE HYCLATE 100 MG ORAL CAPSULE 1 cap by mouth twice daily DOXYCYCLINE HYCLATE 100 MG ORAL CAPSULE 4102633 DOXYCYCLINE HYCLATE Inactive Vital Signs Date Name [...] Measured Encounters Code Encounter Date Provider Facility CPT-15660 Level 3 Est. Patient 22:53:06 PRINTED CIRCUIT BOARDS LAMINATOR Marta Viramontes [facility]-70874 Level 3 Est. Patient 16:07:34 CDT Marta Ana M [facility] CPT-53168 Level 3 Est. Patient 15:39:01 [facility] Level 4 Est[facility] Patient 17:31:07 CD[facility] Patient 05:11:40 CDT Rikki GRANADOS [facility]-04167 Level 2 Est. Patient 14:30:43 [employer]INTED CIRCUIT BOARDS LAMINATOR Martacarlos Viramontes [facility] CPT-76712 Level 4 Est. Patient 09:14:36 PRINTED CIRCUIT BOARDS LAMINATOR Rikki GRANADOS [facility] CPT-34756 Level 2 Est. Patient 09:07:32 CDT Marta Caalluisblas [facility] CPT-92432 Level 4 Est. Patient 11:55:00 CDT Rikki GRANADOS [facility] CPT-55930 Level 3 Est. Patient 13:25:16 CDT Jennifer Chun MD PhD [facility] CPT-62307 Level 3 Est. Patient 17:31:22 CDT Solomon Alamo MD [facility] CPT-72840 Level 3 Est. Patient 08:02:14 CDT Solomon Alamo MD [facility]-53713 Level 3 Est. Patient 17:23:53 CDT Rikki Stearns [facility] CPT-84492 Level 3 Est. Patient 11:22:41 CDT Darryn Hearn [facility] Procedures Code Procedure Name Date Entry Date Standard Description CPT-29584 Venipuncture Draw Fee 16:09:39 CDT CPT-30732 Venipuncture Draw Fee 12:43:48 [employer]INTED CIRCUIT [employer]ARDS LAMINATOR CPT-79334 BMP - LAB USE ONLY 10:32:33 [employer]INTED CIRCUIT BOARDS LAMINATOR CPT-15901 Venipuncture Draw Fee 10:32:33 [employer]ED CIRCUIT BOARDS LAMINATOR CPT-34683 Magnesium - LAB USE ONLY 09:54:30 CDT CPT-51099 TSH - LAB USE ONLY 09:54:30 CDT CPT-37285 Lipid - LAB USE ONLY 09:54:30 CDT CPT-45830 Venipuncture Draw Fee 09:54:29 CDT CPT-78262 Venipuncture Draw Fee 18:27:04 CDT CPT-64763 Chest 2V Frontal and Lat 10:57:00 [employer]INTED CIRCUIT BOARDS LAMINATOR CPT-68112 Venipuncture Draw Fee 10:56:59 PRINTED CIRCUIT BOARDS LAMINATOR CPT-62622 Venipuncture Draw Fee 09:22:28 PRINTED CIRCUIT BOARDS LAMINATOR CPT-30551 Chest 2V Frontal and Lat 09:22:27 PRINTED CIRCUIT BOARDS LAMINATOR CPT-I/D I/D Abscess 09:43:13 CDT CPT-76226 Venipuncture Draw Fee 08:16:46 PRINTED CIRCUIT BOARDS LAMINATOR CPT-92097 Venipuncture Draw Fee 08:18:55 PRINTED CIRCUIT BOARDS LAMINATOR CPT-76187 Venipuncture Draw Fee 08:31:18 PRINTED CIRCUIT BOARDS LAMINATOR CPT-58074 Venipuncture Draw Fee 11:42:52 PRINTED CIRCUIT BOARDS LAMINATOR CPT-63350 Venipuncture Draw Fee 13:26:37 PRINTED CIRCUIT BOARDS LAMINATOR CPT-10791 Venipuncture Draw Fee 09:23:38 [employer]INTED CIRCUIT BOARDS LAMINATOR CPT-000 Give Appropriate Tetanus Booster 10:23:50 CDT CPT-56133 Bone Density 08:28:45 CDT CPT-36130 Bone Density 11:35:15 CDT CPT-PV Prev. Care Visit 12:19:00 CDT CPT-21274 Venipuncture Draw Fee 15:02:58 CDT
--- OUTSIDE RECORDS SUMMARY | 2018-01-19 07:34 | XMS REPORT | Clinical Summary ---
Author Author Admin, E Organization 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 Family history of malignant neoplasm of [...] (female), unspecified Vitamin D deficiency 268.9 Active Jennfier Chun MD PhD Unspecified vitamin D deficiency [...] Adenocarcinoma, fallopian tube, 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 Kailee Racehl RMA Malignant neoplasm of fallopian tube Adenocarcinoma, [...] Ingrown toenail, left 703.0 Resolved Marta Yokum [employer] Ingrowing nail cellulitis, finger, right 681.00 Active Marta Yokum [employer] Cellulitis and abscess of finger, unspecified Breast [...] Daryn GRANADOS Chemotherapy ICD-V58.11 Inactive Rikki Daryn PA Cough, chronic ICD-786.2 Inactive Rikki Daryn GRANADOS Ingrown toenail, left ICD-703.0 Inactive Marta Viramontes [place] Medication List Medication Instructions Start Date Stop Date Generic Name NDC Status Provider Patient Instruction KEFLEX 500 MG CAP 1 po qid CEPHALEXIN 18626582110 Active Marta Viramontes APRN Active B COMPLEX 50 ORAL CR-TABS B COMPLEX VITAMINS 69507326735 Active Marta Viramontes APRN Active TUSSIONEX PENNKINETIC ER 10-8 MG/5ML LQCR 5ml po q12hr PRN Cough HYDROCOD POLST-CHLORPHEN POLST 97004438563 No Longer Active Marta Viramontes APRN Active VITAMIN D3 99101 UNIT CAPS 1 qWeek x 4 months for vitamin D deficiency 04/09 CHOLECALCIFEROL 28815488205 Active Marta Viramontes APRN Active CEPHALEXIN 500 MG ORAL CAPS Take one four times a day CEPHALEXIN 48186867975 No Longer Active Marta Viramontes APRN Active BIOTIN 1000 MCG ORAL TABS Take one daily BIOTIN 95342413314 Active Rikki GRANADOS Active VITAMIN C 500 MG ORAL CAPS Take one daily ASCORBIC ACID 01962233568 Active Rikki GRANADOS Active BENZONATATE 200 MG ORAL CAPS One capsule tid. BENZONATATE 46552544058 No Longer Active Rikki GRANADOS Active FLONASE ALLERGY RELIEF 50 MCG/ACT NASAL SUSP spray twice in each nostril one time daily FLUTICASONE PROPIONATE 84334370548 No Longer Active Rikki Harms PA Active TUSSIONEX PENNKINETIC ER 10-8 MG/5ML LQCR 5ml po q12hr PRN Cough HYDROCOD POLST-CHLORPHEN POLST 51171056502 No Longer Active Rikki Harms PA Active NIACIN ER 500 MG ORAL CR-TABS Take one twice daily NIACIN 12753882468 Active Rikki Harms PA Active ALBUTEROL SULFATE 0.083 % NEBU SOLN one vial per nebulizer every 4-6 hours as needed ALBUTEROL SULFATE 47647271167 No Longer Active Rikki Harms PA Active MEDROL (CAROLYN) 4 MG TABS 6 tabs on day 1, 5 tabs on day 2, 4 tabs on day 3, 3 tabs on day 4, 2 tabs on day 5, 1 tab on day 6 METHYLPREDNISOLONE 02433162881 No Longer Active Rikki Harms PA Active LEVAQUIN 750 MG TABS 1 po qd x 7 days LEVOFLOXACIN 20617029301 No Longer Active Rikki Harms PA Active LEVAQUIN 500 MG ORAL TABS Take one tablet daily LEVOFLOXACIN 35067358381 No Longer Active Rikki Harms PA Active PROAIR HFA 108 (90 BASE) MCG/ACT AERS 2 puffs four times a day as needed 2014 ALBUTEROL SULFATE 61798046072 Active Marta Yokum [employer] Active LEVAQUIN 500 MG TAB 1 tablet by mouth daily LEVOFLOXACIN 42420720003 No Longer Active Marta Yokum [employer] Active CHERATUSSIN AC 100-10 MG/5ML SYRP 1 tsp by mouth every 4 hours as needed for cough GUAIFENESIN-CODEINE 55876704814 No Longer Active Rikki Harms PA Active MUPIROCIN 2 % EXT OINT Use in each nostril in am and pm MUPIROCIN 80228175944 No Longer Active Rikki Harms PA Active DOXYCYCLINE HYCLATE 100 MG ORAL CAPS Take one bid DOXYCYCLINE HYCLATE 35248991998 No Longer Active Rikki Harms PA Active CLARITIN 10 MG TABS 1prn LORATADINE 21935848689 No Longer Active Jocelyne Naff 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 INSPECTOR Active ASPIRIN 81 MG TABS 1qd ASPIRIN 03553046638 No Longer Active Jocelyne Naff CARTON INSPECTOR Active DOXYCYCLINE HYCLATE 100 MG CAP 1 cap by mouth twice daily DOXYCYCLINE HYCLATE 34722849903 No Longer Active Rikki Harms PA Active VITAMIN D3 31102 UNIT CAPS 1 pill by mouth weekly, for vitamin D deficiency CHOLECALCIFEROL 55684093691 No Longer Active Jennifer Chun MD PhD Active ANASTROZOLE 1 MG ORAL TABS Take one by mouth daily ANASTROZOLE 73192588881 Active Jennifer Chun MD PhD Active ZITHROMAX 250 MG TAB 2 po today, then 1 po q days 2-5 AZITHROMYCIN 17752558627 No Longer Active Rikki Harms PA Active MECLIZINE HCL 25 MG TABS 1 prn MECLIZINE HCL 60769140785 No Longer Active Solomon Alamo MD Active CHERATUSSIN AC SYRP prn as directed GUAIFENESIN- CODEINE SYRP 05566082903 No Longer Active Rikki Harms PA Active MULTIVITAMINS TABS 1qd MULTIPLE VITAMIN 07625998654 No Longer Active Rikki Harms PA Active OMEPRAZOLE 20 MG CPDR 1 PO Q D OMEPRAZOLE 85443515156 Active Jocelyne Naff 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 INSPECTOR Active ZITHROMAX Z-CAROLYN 250 MG TABS 2x1day,[id number] AZITHROMYCIN 78800336018 No Longer Active Jocelyne Naff CARTON INSPECTOR Active MULTIVITAMINS TABS 1qd MULTIVITAMINS TABS MULTIPLE VITAMIN Inactive CHERATUSSIN AC SYRP prn as directed CHERATUSSIN AC SYRP GUAIFENESIN-CODEINE SYRP Inactive MECLIZINE HCL 25 MG TABS 1 prn MECLIZINE HCL 25 MG TABS 262441 MECLIZINE HCL Inactive ASPIRIN 81 MG TABS 1qd ASPIRIN 81 MG TABS ASPIRIN Inactive CLARITIN 10 MG TABS 1prn CLARITIN 10 MG TABS 524738 LORATADINE Inactive DOXYCYCLINE HYCLATE 100 MG ORAL CAPS Take one bid DOXYCYCLINE HYCLATE 100 MG ORAL CAPS 8203115 DOXYCYCLINE HYCLATE Inactive MUPIROCIN 2 % EXT OINT Use in each nostril in am and pm MUPIROCIN 2 % EXT OINT 226327 MUPIROCIN Inactive CHERATUSSIN AC 100-10 MG/5ML SYRP 1 tsp by mouth every 4 hours as needed for cough CHERATUSSIN AC 100-10 MG/5ML SYRP 824592 GUAIFENESIN-CODEINE Inactive LEVAQUIN 500 MG TAB 1 tablet by mouth daily LEVAQUIN 500 MG TAB 942077 LEVOFLOXACIN Inactive LEVAQUIN 500 MG ORAL TABS Take one tablet daily LEVAQUIN 500 MG ORAL TABS 518380 LEVOFLOXACIN Inactive LEVAQUIN 750 MG TABS 1 po qd x 7 days LEVAQUIN 750 MG TABS 236255 LEVOFLOXACIN Inactive ALBUTEROL SULFATE 0.083 % NEBU SOLN one vial per nebulizer every 4-6 hours as needed ALBUTEROL SULFATE 0.083 % NEBU SOLN 048981 ALBUTEROL SULFATE Inactive TUSSIONEX PENNKINETIC ER 10-8 MG/5ML LQCR 5ml po q12hr PRN Cough TUSSIONEX PENNKINETIC ER 10-8 MG/5ML LQCR HYDROCOD POLST- CHLORPHEN POLST Inactive FLONASE ALLERGY RELIEF 50 MCG/ACT NASAL SUSP spray twice in each nostril one time daily FLONASE ALLERGY RELIEF 50 MCG/ACT NASAL SUSP 7620774 FLUTICASONE PROPIONATE Inactive BENZONATATE 200 MG ORAL CAPS One capsule tid. BENZONATATE 200 MG ORAL CAPS 078670 BENZONATATE Inactive CEPHALEXIN 500 MG ORAL CAPS Take one four times a day CEPHALEXIN 500 MG ORAL CAPS 378300 CEPHALEXIN Inactive TUSSIONEX PENNKINETIC ER 10-8 MG/5ML LQCR 5ml po q12hr PRN Cough TUSSIONEX PENNKINETIC ER 10-8 MG/5ML LQCR HYDROCOD POLST- CHLORPHEN POLST Inactive ZITHROMAX Z-CAROLYN 250 MG TABS 2x1day,8c1sofy ZITHROMAX Z-CAROLYN 250 MG TABS 6427541 AZITHROMYCIN Inactive ZITHROMAX 250 MG TAB 2 po today, then 1 po q days 2-5 ZITHROMAX 250 MG TAB 6937273 AZITHROMYCIN Inactive VITAMIN D3 97806 UNIT CAPS 1 pill by mouth weekly, for vitamin D deficiency VITAMIN D3 51070 UNIT CAPS CHOLECALCIFEROL Inactive DOXYCYCLINE HYCLATE 100 MG CAP 1 cap by mouth twice daily DOXYCYCLINE HYCLATE 100 MG CAP 8754387 DOXYCYCLINE HYCLATE Inactive MEDROL (CAROLYN) 4 MG TABS 6 tabs on day 1, 5 tabs on day 2, 4 tabs on day 3, 3 tabs on day 4, 2 tabs on day 5, 1 tab on day 6 MEDROL ( CAROLYN) 4 MG TABS 128494 METHYLPREDNISOLONE Inactive Vital Signs Date Name Value [...] mg/dL 8.5-10.1 urea nitrogen, blood 20 mg/dL 7- creatinine, serum 0.92 mg/dL 0.55-1.30 blood glucose 108 mg/dL 65-110 carbon dioxide, venous blood 31.6 mmol/L 21.0-32.0 chloride, serum 107 mmol/L 98-107 potassium, serum 4.0 mmol/L 3.5-5.2 sodium, serum 142 mmol/L 122-323 2120/11/11 potassium, serum 4.2 mmol/L 3.5-5.2 chloride, serum 106 mmol/L 98-107 carbon dioxide, venous blood 29.1 mmol/L 21.0-32.0 blood glucose 95 mg/dL 65-110 calcium, serum 8.6 mg/dL 8.5-10.1 urea nitrogen, blood 23 mg/dL 7-18 creatinine, serum 0.83 mg/dL 0.55-1.30 sodium, serum 141 mmol/L 136-145 Lab Report: Lipid Panel, Thyroid Stimulating Hormone (L) - Chemistry cholesterol, serum 177 mg/dL 675-764 0495/10/31 triglyceride, serum, fasting 64 mg/dL 30-200 HDL cholesterol, serum 77 mg/dL 32-96 LDL cholesterol, serum 87 mg/dL 0-130 TSH 2.13 m[iU]/mL 0.36-3.74 Lab Report: VITAMIN D, 25-HYDROXY/35420 - Chemistry vitamin D 25-hydroxy, serum 25 ng/mL 30-100 Encounters Code Encounter Date Provider Facility CPT-97218 Level 3 Est. Patient 15:39:01 CDT [facility] [place] CPT-13626 Level 4 Est. Patient 17:31:07 CDT Marta Viramontes [facility] [place] CPT-51487 Level 3 Est. Patient 05:11:40 CDT Rikki GRANADOS [facility] CPT-21618 Level 2 Est. Patient 14:30:43 CURBER Marta Viramontes [facility] CPT-56570 Level 4 Est. Patient 09:14:36 CURBER Rikki GRANADOS [facility] CPT-74449 Level 2 Est. Patient 09:07:32 CDT Marta Viramontes [facility] CPT-77005 Level 4 Est. Patient 11:55:00 CDT Rikki GRANADOS [facility] CPT-54616 Level 3 Est. Patient 13:25:16 CDT Jennifer Chun MD PhD [facility] CPT-48645 Level 3 Est. Patient 17:31:22 CDT Solomon Alamo MD [facility]-40075 Level 3 Est. Patient 08:02:14 CDT Solomon Alamo MD [facility] CPT-21578 Level 3 Est. Patient 17:23:53 CDT Rikki Harms [facility] CPT-06005 Level 3 Est. Patient 11:22:41 CDT Darryn Hearn [facility] Procedures Code Procedure Name Date Entry Date Standard Description CPT-39799 Venipuncture Draw Fee 12:43:48 CURBER CPT-16676 BMP - LAB USE ONLY 10:32:33 CURBER CPT-02103 Venipuncture Draw Fee 10:32:33 CURBER CPT-42176 Magnesium - LAB USE ONLY 09:54:30 CDT CPT-40852 TSH - LAB USE ONLY 09:54:30 CDT CPT-44399 Lipid - LAB USE ONLY 09:54:30 CDT CPT-69251 Venipuncture Draw Fee 09:54:29 CDT CPT-00663 Venipuncture Draw Fee 18:27:04 CDT CPT-61029 Chest 2V Frontal and Lat 10:57:00 CURBER CPT-39553 Venipuncture Draw Fee 10:56:59 CURBER CPT-68070 Venipuncture Draw Fee 09:22:28 CURBER CPT-10196 Chest 2V Frontal and Lat 09:22:27 CURBER CPT-I/D I/D Abscess 09:43:13 CDT CPT-13096 Venipuncture Draw Fee 08:16:46 CURBER CPT-62016 Venipuncture Draw Fee 08:18:55 CURBER CPT-34864 Venipuncture Draw Fee 08:31:18 CURBER CPT-80070 Venipuncture Draw Fee 11:42:52 CURBER CPT-87351 Venipuncture Draw Fee 13:26:37 CURBER CPT-19746 Venipuncture Draw Fee 09:23:38 CURBER CPT-000 Give Appropriate Tetanus Booster 10:23:50 CDT CPT-81421 Bone Density 08:28:45 CDT CPT-00968 Bone Density 11:35:15 CDT CPT-PV Prev. Care Visit 12:19:00 CDT CPT-64971 Venipuncture Draw Fee 15:02:58 CDT
--- OUTSIDE RECORDS SUMMARY | 2018-01-19 07:35 | XMS REPORT | Clinical Summary ---
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 CURE WORKER Conditions or Problems Problem Name Problem Code Onset Date Status Entry Date Provider Comment Standard Description Annotate G E R D 530.81 Active Jocelyne Naff DRY CURE WORKER Esophageal reflux FH COLON CANCER V16.0 Active Jocelyne Naff DRY CURE WORKER Family history of malignant neoplasm of [...] a day as needed 2014 ALBUTEROL SULFATE 72430214442 Active Marta Viramontes APRN Active TUSSIONEX PENNKINETIC ER 10-8 MG/5ML LQCR 5ml po q12hr PRN Cough HYDROCOD POLST-CHLORPHEN POLST 74524997034 Active Rikki GRANADOS Active LEVAQUIN 750 MG TABS 1 po qd x 7 days LEVOFLOXACIN 24623925324 Active Marta Viramontes CLINIC ASSISTANT Active FLONASE ALLERGY RELIEF 50 MCG/ACT NASAL SUSP spray twice in each nostril one time daily FLUTICASONE PROPIONATE 63655894776 Active Marta Maganaum CLINIC ASSISTANT Active LEVAQUIN 500 MG TAB 1 tablet by mouth daily LEVOFLOXACIN 25973212116 No Longer Active Marta Caalkum CLINIC ASSISTANT Active BENZONATATE 200 MG ORAL CAPS One capsule tid. BENZONATATE 48485151823 Active Martacarlos Maganaum CLINIC ASSISTANT Active CHERATUSSIN AC 100-10 MG/5ML SYRP 1 tsp by mouth every 4 hours as needed for cough GUAIFENESIN-CODEINE 28846781288 No Longer Active Rikki Harms PA Active MUPIROCIN 2 % EXT OINT Use in each nostril in am and pm MUPIROCIN 71916945548 No Longer Active Rikki Harms PA Active DOXYCYCLINE HYCLATE 100 MG ORAL CAPS Take one bid DOXYCYCLINE HYCLATE 22441601735 No Longer Active Rikki Harms PA Active CLARITIN 10 MG TABS 1prn LORATADINE 25802125412 No Longer Active Jocelyne Naff DRY CURE WORKER Active ASPIRIN 81 MG TABS 1qd ASPIRIN 98707045604 No Longer Active Jocelyne Naff DRY CURE WORKER Active DOXYCYCLINE HYCLATE 100 MG CAP 1 cap by mouth twice daily DOXYCYCLINE HYCLATE 12452063711 No Longer Active Rikki Harms PA Active VITAMIN D3 13273 UNIT CAPS 1 pill by mouth weekly, for vitamin D deficiency CHOLECALCIFEROL 06161245434 No Longer Active Jennifer Chun MD PhD Active ANASTROZOLE 1 MG ORAL TABS Take one by mouth daily ANASTROZOLE 21366479476 Active Jennifer Chun MD PhD Active ZITHROMAX 250 MG TAB 2 po today, then 1 po q days 2-5 AZITHROMYCIN 05567917612 No Longer Active Rikki Harms PA Active MECLIZINE HCL 25 MG TABS 1 prn MECLIZINE HCL 65398219818 No Longer Active Solomon Alamo MD Active CHERATUSSIN AC SYRP prn as directed GUAIFENESIN- CODEINE SYRP 19843537662 No Longer Active Rikki Harms PA Active MULTIVITAMINS TABS 1qd MULTIPLE VITAMIN 03892563519 No Longer Active Rikki Harms PA Active OMEPRAZOLE 20 MG CPDR 1 PO Q D OMEPRAZOLE 29538235012 Active Marta Yokum CLINIC ASSISTANT Active ZITHROMAX Z-CAROLYN 250 MG TABS 2x1day,[id number] AZITHROMYCIN 93543825259 No Longer Active Jocelyne Liliya DRY CURE WORKER Active MULTIVITAMINS TABS 1qd MULTIVITAMINS TABS MULTIPLE VITAMIN Inactive CHERATUSSIN AC SYRP prn as directed CHERATUSSIN AC SYRP GUAIFENESIN-CODEINE SYRP Inactive MECLIZINE HCL 25 MG TABS 1 prn MECLIZINE HCL 25 MG TABS 327431 MECLIZINE HCL Inactive ASPIRIN 81 MG TABS 1qd ASPIRIN 81 MG TABS 542746 ASPIRIN Inactive CLARITIN 10 MG TABS 1prn CLARITIN 10 MG TABS 436848 LORATADINE Inactive DOXYCYCLINE HYCLATE 100 MG ORAL CAPS Take one bid DOXYCYCLINE HYCLATE 100 MG ORAL CAPS 8067008 DOXYCYCLINE HYCLATE Inactive MUPIROCIN 2 % EXT OINT Use in each nostril in am and pm MUPIROCIN 2 % EXT OINT 937462 MUPIROCIN Inactive CHERATUSSIN AC 100-10 MG/5ML SYRP 1 tsp by mouth every 4 hours as needed for cough CHERATUSSIN AC 100-10 MG/5ML SYRP 427788 GUAIFENESIN-CODEINE Inactive LEVAQUIN 500 MG TAB 1 tablet by mouth daily LEVAQUIN 500 MG TAB 371830 LEVOFLOXACIN Inactive ZITHROMAX Z-CAROLYN 250 MG TABS 2x1day,7n7qgcq ZITHROMAX Z-CAROLYN 250 MG TABS 8876720 AZITHROMYCIN Inactive ZITHROMAX 250 MG TAB 2 po today, then 1 po q days 2-5 ZITHROMAX 250 MG TAB 9858166 AZITHROMYCIN Inactive VITAMIN D3 82205 UNIT CAPS 1 pill by mouth weekly, for vitamin D deficiency VITAMIN D3 22584 UNIT CAPS CHOLECALCIFEROL Inactive DOXYCYCLINE HYCLATE 100 MG CAP 1 cap by mouth twice daily DOXYCYCLINE HYCLATE 100 MG CAP 6100535 DOXYCYCLINE HYCLATE Inactive Vital Signs Date Name [...] CBC W/DIFF - Hematology leukocyte count, blood 11.9 10^3/MM^3 10*3/mm3 4.6-10.2 [...] % 11.6-14.8 platelet count 278 10^3/MM^3 10*3/mm3 515-271 2250/02/04 leukocyte count, blood 8.5 10^3/MM^3 10*3/mm3 4.6-10.2 [...] % 11.6-14.8 platelet count 326 10^3/MM^3 10*3/mm3 930-202 8727/02/10 leukocyte count, blood 2.3 10^3/MM^3 10*3/mm3 4.6-10.2 [...] % 11.6-14.8 platelet count 240 10^3/MM^3 10*3/mm3 926-492 2690/02/17 leukocyte count, blood 3.4 10^3/MM^3 10*3/mm3 4.6-10.2 [...] % 11.6-14.8 platelet count 308 10^3/MM^3 10*3/mm3 083-972 0279/02/25 leukocyte count, blood 6.6 10^3/MM^3 10*3/mm3 4.6-10.2 [...] % 11.6-14.8 platelet count 433 10^3/MM^3 10*3/mm3 933-231 5106/11/18 leukocyte count, blood 8.5 10^3/MM^3 10*3/mm3 4.6-10.2 [...] % 11.6-14.8 platelet count 143 10^3/MM^3 10*3/mm3 419-627 5640/11/25 leukocyte count, blood 2.1 10^3/MM^3 10*3/mm3 4.6-10.2 [...] % 11.6-14.8 platelet count 139 10^3/MM^3 10*3/mm3 289-908 9951/12/02 leukocyte count, blood 6.7 10^3/MM^3 10*3/mm3 4.6-10.2 [...] % 11.6-14.8 platelet count 258 10^3/MM^3 10*3/mm3 527-295 7753/12/09 leukocyte count, blood 5.3 10^3/MM^3 10*3/mm3 4.6-10.2 [...] % 11.6-14.8 platelet count 240 10^3/MM^3 10*3/mm3 970-438 9252/12/16 leukocyte count, blood 3.2 10^3/MM^3 10*3/mm3 4.6-10.2 [...] % 11.6-14.8 platelet count 158 10^3/MM^3 10*3/mm3 903-915 2644/12/18 leukocyte count, blood 8.8 10^3/MM^3 10*3/mm3 4.6-10.2 [...] % 11.6-14.8 platelet count 207 10^3/MM^3 10*3/mm3 074-191 5507/12/23 leukocyte count, blood 6.2 10^3/MM^3 10*3/mm3 4.6-10.2 [...] % 11.6-14.8 platelet count 183 10^3/MM^3 10*3/mm3 298-420 0870/11/11 leukocyte count, blood 2.0 10^3/MM^3 10*3/mm3 4.6-10.2 [...] % 11.6-14.8 platelet count 203 10^3/MM^3 10*3/mm3 839-229 5120/12/30 leukocyte count, blood 5.2 10^3/MM^3 10*3/mm3 4.6-10.2 [...] Panel - Chemistry sodium, serum 138 mmol/L 540-194 2204/11/04 carbon dioxide, venous blood 27.7 mmol/L 21.0-32.0 potassium, serum 4.9 mmol/L 3.5-5.2 chloride, serum 104 mmol/L 98-107 blood glucose 92 mg/dL 65-110 urea nitrogen, blood 24 mg/dL 7-18 creatinine, serum 0.95 mg/dL 0.55-1.30 alanine aminotransferase (SGPT), serum 34 U/L aspartate aminotransferase (SGOT), serum 23 U/L 15-37 calcium, serum 8.9 mg/dL 8.5-10.1 bilirubin, serum, total 0.70 mg/dL 0.00-1.00 sodium, serum 140 mmol/L 193-311 6606/01/06 carbon dioxide, venous blood 27.2 mmol/L 21.0-32.0 potassium, serum 4.1 mmol/L 3.5-5.2 chloride, serum 105 mmol/L 98-107 blood glucose 70 mg/dL 65-110 urea nitrogen, blood 25 mg/dL 7-18 creatinine, serum 0.90 mg/dL 0.55-1.30 alanine aminotransferase (SGPT), serum 28 U/L aspartate aminotransferase (SGOT), serum 20 U/L - calcium, serum 8.9 mg/dL 8.5-10.1 bilirubin, serum, total 0.40 mg/dL 0.00-1.00 sodium, serum 140 mmol/L 683-708 2063/01/13 carbon dioxide, venous blood 26.4 mmol/L 21.0-32.0 potassium, serum 4.2 mmol/L 3.5-5.2 chloride, serum 104 mmol/L 98-107 blood glucose 101 mg/dL 65-110 urea nitrogen, blood 18 mg/dL 7-18 creatinine, serum 0.80 mg/dL 0.55-1.30 alanine aminotransferase (SGPT), serum 28 U/L aspartate aminotransferase (SGOT), serum 24 U/L - calcium, serum 8.7 mg/dL 8.5-10.1 [...] % 11.6-14.8 platelet count 297 10^3/MM^3 10*3/mm3 210-227 6197/01/13 leukocyte count, blood 5.2 10^3/MM^3 10*3/mm3 4.6-10.2 [...] % 11.6-14.8 platelet count 289 10^3/MM^3 10*3/mm3 251-099 3478/11/04 leukocyte count, blood 3.8 10^3/MM^3 10*3/mm3 4.6-10.2 [...] Panel - Chemistry sodium, serum 140 mmol/L 477-767 3840/07/13 potassium, serum 4.5 mmol/L 3.5-5.2 chloride, serum 106 mmol/L 98-107 carbon dioxide, venous blood 27.7 mmol/L 21.0-32.0 blood glucose 105 mg/dL 65-110 urea nitrogen, blood 14 mg/dL 7-18 creatinine, serum 0.90 mg/dL 0.60-1.30 alanine aminotransferase (SGPT), serum 29 U/L 12-78 aspartate aminotransferase (SGOT), serum 22 U/L 15-37 calcium, serum 9.4 mg/dL 8.5-10.1 bilirubin, serum, total 0.70 mg/dL 0.00-1.00 cholesterol, serum 160 mg/dL 153-583 9095/07/13 triglyceride, serum, fasting 63 mg/dL 30-200 HDL [...] Panel - Chemistry sodium, serum 141 mmol/L 455-109 6477/02/10 potassium, serum 5.2 mmol/L 3.5-5.2 chloride, serum 106 mmol/L 98-107 carbon dioxide, venous blood 27.8 mmol/L 21.0-32.0 blood glucose 111 mg/dL 65-110 urea nitrogen, blood 18 mg/dL 7-18 creatinine, serum 0.90 mg/dL 0.60-1.30 alanine aminotransferase (SGPT), serum 29 U/L - aspartate aminotransferase (SGOT), serum 21 U/L 15-37 calcium, serum 8.3 mg/dL 8.5-10.1 bilirubin, serum, total 0.40 mg/dL 0.00-1.00 sodium, serum 141 mmol/L 780-522 6471/11/18 carbon dioxide, venous blood 26.2 mmol/L 21.0-32.0 potassium, serum 4.4 mmol/L 3.5-5.2 chloride, serum 106 mmol/L 98-107 blood glucose 102 mg/dL 65-110 urea nitrogen, blood 24 mg/dL 7-18 creatinine, serum 0.77 mg/dL 0.55-1.30 alanine aminotransferase (SGPT), serum 30 U/L aspartate aminotransferase (SGOT), serum 15 U/L 15-37 calcium, serum 8.3 mg/dL 8.5-10.1 bilirubin, serum, total 0.30 mg/dL 0.00-1.00 sodium, serum 139 mmol/L 645-394 1344/11/25 carbon dioxide, venous blood 27.9 mmol/L 21.0-32.0 potassium, serum 4.7 mmol/L 3.5-5.2 chloride, serum 105 mmol/L 98-107 blood glucose 94 mg/dL 65-110 urea nitrogen, blood 21 mg/dL 7-18 creatinine, serum 0.79 mg/dL 0.55-1.30 alanine aminotransferase (SGPT), serum 40 U/L aspartate aminotransferase (SGOT), serum 22 U/L 15-37 calcium, serum 8.5 mg/dL 8.5-10.1 bilirubin, serum, total 0.80 mg/dL 0.00-1.00 sodium, serum 139 mmol/L 499-862 3419/12/30 carbon dioxide, venous blood 28.2 mmol/L 21.0-32.0 potassium, serum 3.9 mmol/L 3.5-5.2 chloride, serum 105 mmol/L 98-107 blood glucose 91 mg/dL 65-110 urea nitrogen, blood 17 mg/dL 7-18 creatinine, serum 0.81 mg/dL 0.55-1.30 alanine aminotransferase (SGPT), serum 29 U/L -78 aspartate aminotransferase (SGOT), serum 22 U/L 15-37 calcium, serum 8.8 mg/dL 8.5-10.1 bilirubin, serum, total 0.50 mg/dL 0.00-1.00 sodium, serum 141 mmol/L 320-072 4016/11/11 carbon dioxide, venous blood 26.8 mmol/L 21.0-32.0 potassium, serum 4.2 mmol/L 3.5-5.2 chloride, serum 106 mmol/L 98-107 blood glucose 95 mg/dL 65-110 urea nitrogen, blood 18 mg/dL 7-18 creatinine, serum 0.70 mg/dL 0.55-1.30 alanine aminotransferase (SGPT), serum 33 U/L 78 aspartate aminotransferase (SGOT), serum 22 U/L 15-37 calcium, serum 8.5 mg/dL 8.5-10.1 bilirubin, serum, total 0.30 mg/dL 0.00-1.00 sodium, serum 143 mmol/L 223-857 4758/12/23 carbon dioxide, venous blood 24.6 mmol/L 21.0-32.0 potassium, serum 4.1 mmol/L 3.5-5.2 chloride, serum 107 mmol/L 98-107 blood glucose 98 mg/dL 65-110 urea nitrogen, blood 22 mg/dL 7-18 creatinine, serum 0.77 mg/dL 0.55-1.30 alanine aminotransferase (SGPT), serum 28 U/L aspartate aminotransferase (SGOT), serum 20 U/L 15-37 calcium, serum 8.6 mg/dL 8.5-10.1 bilirubin, serum, total 0.30 mg/dL 0.00-1.00 urea nitrogen, blood 27 mg/dL 7-18 creatinine, serum 0.88 mg/dL 0.55-1.30 alanine aminotransferase (SGPT), serum 31 U/L aspartate aminotransferase (SGOT), serum 18 U/L 15-37 calcium, serum 8.9 mg/dL 8.5-10.1 bilirubin, serum, total 0.40 mg/dL 0.00-1.00 blood glucose 91 mg/dL 65-110 chloride, serum 109 mmol/L 98-107 potassium, serum 5.0 mmol/L 3.5-5.2 carbon dioxide, venous blood 28.5 mmol/L 21.0-32.0 sodium, serum 142 mmol/L 256-114 3688/12/16 sodium, serum 140 mmol/L 912-265 6402/12/16 carbon dioxide, venous blood 25.4 mmol/L 21.0-32.0 potassium, serum 4.1 mmol/L 3.5-5.2 chloride, serum 104 mmol/L 98-107 blood glucose 110 mg/dL 65-110 urea nitrogen, blood 24 mg/dL 7-18 creatinine, serum 0.87 mg/dL 0.55-1.30 alanine aminotransferase (SGPT), serum 35 U/L 12-78 aspartate aminotransferase (SGOT), serum 21 U/L 15-37 calcium, serum 8.4 mg/dL 8.5-10.1 bilirubin, serum, total 0.50 mg/dL 0.00-1.00 sodium, serum 141 mmol/L 801-723 8267/12/02 carbon dioxide, venous blood 25.9 mmol/L 21.0-32.0 potassium, serum 4.7 mmol/L 3.5-5.2 chloride, serum 106 mmol/L 98-107 blood glucose 78 mg/dL 65-110 urea nitrogen, blood 24 mg/dL 7-18 creatinine, serum 0.75 mg/dL 0.55-1.30 alanine aminotransferase (SGPT), serum 31 U/L 12-78 aspartate aminotransferase (SGOT), serum 20 U/L 15-37 calcium, serum 8.7 mg/dL 8.5-10.1 bilirubin, serum, total 0.30 mg/dL 0.00-1.00 Lab Report: VITAMIN D, 25-HYDROXY/66644 - Chemistry vitamin D 25-hydroxy, serum 24 ng/mL 30-100 Encounters Code Encounter Date Provider Facility CPT-78056 Level 2 Est. 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 Patient 09:14:36 IRONING 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 Rikki GRANADOS [facility] CPT-44521 Level 2 Est. Patient 09:07:32 CDT Marta Viramontes [facility] CPT-57516 Level 4 Est. Patient 11:55:00 CDT Rikki GRANADOS [facility] CPT-27969 Level 3 Est. Patient 13:25:16 CDT Jennifer Chun MD PhD [facility] CPT-39033 Level 3 Est. Patient 17:31:22 CDT Solomon Alamo MD [facility] CPT-39899 Level 3 Est. Patient 08:02:14 CDT Solomon Alamo MD [facility] CPT-71183 Level 3 Est. Patient 17:23:53 CDT Rikki Stearns [facility] CPT-03025 Level 3 Est. Patient 11:22:41 CDT Darryn Hearn [facility] Procedures Code Procedure Name Date Entry Date Standard Description CPT-18316 Venipuncture Draw Fee 09:22:28 IRONING 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 CPT-08511 Chest 2V Frontal and Lat 09:22:27 IRONING 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 CPT-I/D I/D Abscess 09:43:13 CDT CPT-68041 Venipuncture Draw Fee 08:16:46 IRONING 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 CPT-68221 Venipuncture Draw Fee 08:18:55 IRONING 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 CPT-20956 Venipuncture Draw Fee 08:31:18 IRONING 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 CPT-77389 Venipuncture Draw Fee 11:42:52 IRONING 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 CPT-22342 Venipuncture Draw Fee 13:26:37 IRONING 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 CPT-56557 Venipuncture Draw Fee 09:23:38 IRONING 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 CPT-000 Give Appropriate Tetanus Booster 10:23:50 CDT CPT-52031 Bone Density 08:28:45 CDT CPT-40988 Bone Density 11:35:15 CDT CPT-PV Prev. Care Visit 12:19:00 CDT CPT-90650 Venipuncture Draw Fee 15:02:58 CDT
--- NOTE | 2018-01-19 07:36 | Progress Note-Pre Operative ---
Pre-Operative Progress Note H&P Reviewed The H&P was reviewed, patient examined and no changes noted. Date Seen by Provider: Jan 19, 2018 Time Seen by Provider: 07:35 Date H&P Reviewed: Jan 19, 2018 Time H&P Reviewed: 07:35 Pre-Operative Diagnosis: Hallux Rigidus right RENO NOWAK DPM Jan 19, 2018 7:36 am
--- OUTSIDE RECORDS SUMMARY | 2018-01-19 07:37 | XMS REPORT | Clinical Summary ---
Author Author Admin, E Organization [facility] [employer] Address Unknown Phone Unavailable Allergies, Adverse Reactions, Alerts Allergy Name Reaction Description Start Date Severity Status Provider SULFA facial swelling Critical Active Jocelyne Naff VESSEL CAPTAIN Conditions or Problems Problem Name Problem Code Onset Date Status Entry Date Provider Comment Standard Description Annotate G E R D 530.81 Active Jocelyne Naff VESSEL CAPTAIN Esophageal reflux FH COLON CANCER V16.0 Active Jocelyne Naff VESSEL CAPTAIN Family history of malignant neoplasm of gastrointestinal tract ESOPHAGEAL STRICTURE 530.3 Active Darryn Hearn PA Stricture and stenosis of esophagus CAROTID ARTERY STENOSIS, RIGHT 433.10 Active Rikki Stearns PA Occlusion and stenosis of carotid artery, without mention of cerebral infarction HEALTH SCREENING V70.0 Active Rose Darnell LPN Routine general medical examination at a health care facility Benign positional vertigo 386.11 Active Rikki GRANDAOS Benign paroxysmal positional vertigo Breast microcalcification 793.81 [...] MCG ORAL TABS Take one daily BIOTIN 54562533068 Active Rikki Harms PA Active VITAMIN C 500 MG ORAL CAPS Take one daily ASCORBIC ACID 13484348177 Active Rikki Harms PA Active BENZONATATE 200 MG ORAL CAPS One capsule tid. BENZONATATE 58033409941 No Longer Active Rikki Harms PA Active FLONASE ALLERGY RELIEF 50 MCG/ACT NASAL SUSP spray twice in each nostril one time daily FLUTICASONE PROPIONATE 63041878988 No Longer Active Rikki Harms PA Active TUSSIONEX PENNKINETIC ER 10-8 MG/5ML LQCR 5ml po q12hr PRN Cough HYDROCOD POLST-CHLORPHEN POLST 49546405569 No Longer Active Rikki Harms PA Active NIACIN ER 500 MG ORAL CR-TABS Take one twice daily NIACIN 91723981160 Active Rikki Harms PA Active ALBUTEROL SULFATE 0.083 % JOSEE SOLBarbra one vial per nebulizer every 4-6 hours as needed ALBUTEROL SULFATE 31190129325 No Longer Active Rikki Harms PA Active CEPHALEXIN 500 MG ORAL CAPS Take one four times a day CEPHALEXIN 60216783416 Active Rikki Harms PA Active MEDROL (CAROLYN) 4 MG TABS 6 tabs on day 1, 5 tabs on day 2, 4 tabs on day 3, 3 tabs on day 4, 2 tabs on day 5, 1 tab on day 6 METHYLPREDNISOLONE 83189024117 No Longer Active Rikki Harms PA Active LEVAQUIN 750 MG TABS 1 po qd x 7 days LEVOFLOXACIN 16978890834 No Longer Active Rikki Harms PA Active LEVAQUIN 500 MG ORAL TABS Take one tablet daily LEVOFLOXACIN 63745716876 No Longer Active Rikki Harms PA Active PROAIR HFA 108 (90 BASE) MCG/ACT AERS 2 puffs four times a day as needed 2014 ALBUTEROL SULFATE 16616155151 Active Marta Yokum CLIENT SERVICES ASSOCIATE Active LEVAQUIN 500 MG TAB 1 tablet by mouth daily LEVOFLOXACIN 72860487785 No Longer Active Marta Yokum CLIENT SERVICES ASSOCIATE Active CHERATUSSIN AC 100-10 MG/5ML SYRP 1 tsp by mouth every 4 hours as needed for cough GUAIFENESIN-CODEINE 04041808399 No Longer Active Rikki Harms PA Active MUPIROCIN 2 % EXT OINT Use in each nostril in am and pm MUPIROCIN 67517593884 No Longer Active Rikki Harms PA Active DOXYCYCLINE HYCLATE 100 MG ORAL CAPS Take one bid DOXYCYCLINE HYCLATE 96157675071 No Longer Active Rikki Harms PA Active CLARITIN 10 MG TABS 1prn LORATADINE 57308209586 No Longer Active Jocelyne Naff VESSEL CAPTAIN Active ASPIRIN 81 MG TABS 1qd ASPIRIN 89554812509 No Longer Active Jocelyne Naff VESSEL CAPTAIN Active DOXYCYCLINE HYCLATE 100 MG CAP 1 cap by mouth twice daily DOXYCYCLINE HYCLATE 86044548417 No Longer Active Rikki Harms PA Active VITAMIN D3 75345 UNIT CAPS 1 pill by mouth weekly, for vitamin D deficiency CHOLECALCIFEROL 65024222783 No Longer Active Jennifer Chun MD PhD Active ANASTROZOLE 1 MG ORAL TABS Take one by mouth daily ANASTROZOLE 82511632803 Active Jennifer Chun MD PhD Active ZITHROMAX 250 MG TAB 2 po today, then 1 po q days 2-5 AZITHROMYCIN 04497353470 No Longer Active Rikki Harms PA Active MECLIZINE HCL 25 MG TABS 1 prn MECLIZINE HCL 46676362309 No Longer Active Solomon Alamo MD Active CHERATUSSIN AC SYRP prn as directed GUAIFENESIN- CODEINE SYRP 42501976834 No Longer Active Rikki Harms PA Active MULTIVITAMINS TABS 1qd MULTIPLE VITAMIN 29195632475 No Longer Active Rikki Harms PA Active OMEPRAZOLE 20 MG CPDR 1 PO Q D OMEPRAZOLE 89855514513 Active Rikki Harms PA Active ZITHROMAX Z-CAROLYN 250 MG TABS 2x1day,5b1zaeh AZITHROMYCIN 50145573277 No Longer Active Jocelyne Lovell VESSEL CAPTAIN Active MULTIVITAMINS TABS 1qd MULTIVITAMINS TABS MULTIPLE VITAMIN Inactive CHERATUSSIN AC SYRP prn as directed CHERATUSSIN AC SYRP GUAIFENESIN-CODEINE SYRP Inactive MECLIZINE HCL 25 MG TABS 1 prn MECLIZINE HCL 25 MG TABS 579923 MECLIZINE HCL Inactive ASPIRIN 81 MG TABS 1qd ASPIRIN 81 MG TABS ASPIRIN Inactive CLARITIN 10 MG TABS 1prn CLARITIN 10 MG TABS 505732 LORATADINE Inactive DOXYCYCLINE HYCLATE 100 MG ORAL CAPS Take one bid DOXYCYCLINE HYCLATE 100 MG ORAL CAPS 5891518 DOXYCYCLINE HYCLATE Inactive MUPIROCIN 2 % EXT OINT Use in each nostril in am and pm MUPIROCIN 2 % EXT OINT 670118 MUPIROCIN Inactive CHERATUSSIN AC 100-10 MG/5ML SYRP 1 tsp by mouth every 4 hours as needed for cough CHERATUSSIN AC 100-10 MG/5ML SYRP 434236 GUAIFENESIN-CODEINE Inactive LEVAQUIN 500 MG TAB 1 tablet by mouth daily LEVAQUIN 500 MG TAB 799120 LEVOFLOXACIN Inactive LEVAQUIN 500 MG ORAL TABS Take one tablet daily LEVAQUIN 500 MG ORAL TABS 609629 LEVOFLOXACIN Inactive LEVAQUIN 750 MG TABS 1 po qd x 7 days LEVAQUIN 750 MG TABS 796949 LEVOFLOXACIN Inactive ALBUTEROL SULFATE 0.083 % NEBU SOLN one vial per nebulizer every 4-6 hours as needed ALBUTEROL SULFATE 0.083 % NEBU SOLN 188489 ALBUTEROL SULFATE Inactive TUSSIONEX PENNKINETIC ER 10-8 MG/5ML LQCR 5ml po q12hr PRN Cough TUSSIONEX PENNKINETIC ER 10-8 MG/5ML LQCR HYDROCOD POLST- CHLORPHEN POLST Inactive FLONASE ALLERGY RELIEF 50 MCG/ACT NASAL SUSP spray twice in each nostril one time daily FLONASE ALLERGY RELIEF 50 MCG/ACT NASAL SUSP 041192 FLUTICASONE PROPIONATE Inactive BENZONATATE 200 MG ORAL CAPS One capsule tid. BENZONATATE 200 MG ORAL CAPS 489290 BENZONATATE Inactive ZITHROMAX Z-CAROLYN 250 MG TABS 2x1day,5c9wkxc ZITHROMAX Z-CAROLYN 250 MG TABS 8627922 AZITHROMYCIN Inactive ZITHROMAX 250 MG TAB 2 po today, then 1 po q days 2-5 ZITHROMAX 250 MG TAB 8134484 AZITHROMYCIN Inactive VITAMIN D3 46197 UNIT CAPS 1 pill by mouth weekly, for vitamin D deficiency VITAMIN D3 95749 UNIT CAPS CHOLECALCIFEROL Inactive DOXYCYCLINE HYCLATE 100 MG CAP 1 cap by mouth twice daily DOXYCYCLINE HYCLATE 100 MG CAP 7395959 DOXYCYCLINE HYCLATE Inactive MEDROL (CAROLYN) 4 MG TABS 6 tabs on day 1, 5 tabs on day 2, 4 tabs on day 3, 3 tabs on day 4, 2 tabs on day 5, 1 tab on day 6 MEDROL ( CAROLYN) 4 MG TABS 593941 METHYLPREDNISOLONE Inactive Vital Signs Date Name Value [...] % 11.6-14.8 platelet count 143 10^3/MM^3 10*3/mm3 779-617 2935/11/25 leukocyte count, blood 2.1 10^3/MM^3 10*3/mm3 4.6-10.2 [...] % 11.6-14.8 platelet count 139 10^3/MM^3 10*3/mm3 691-502 2608/12/02 leukocyte count, blood 6.7 10^3/MM^3 10*3/mm3 4.6-10.2 [...] % 11.6-14.8 platelet count 258 10^3/MM^3 10*3/mm3 864-673 3758/12/09 leukocyte count, blood 5.3 10^3/MM^3 10*3/mm3 4.6-10.2 [...] % 11.6-14.8 platelet count 240 10^3/MM^3 10*3/mm3 530-432 7902/12/16 leukocyte count, blood 3.2 10^3/MM^3 10*3/mm3 4.6-10.2 [...] % 11.6-14.8 platelet count 158 10^3/MM^3 10*3/mm3 603-620 2058/12/18 leukocyte count, blood 8.8 10^3/MM^3 10*3/mm3 4.6-10.2 hematocrit, blood 35.0 % 36.0-46.0 mean corpuscular volume, RBC 93 fL 80-97 mean corpuscular hemoglobin, RBC 30.9 pg 27.0-31.2 mean corpuscular hemoglobin concentration, RBC 33.3 G/DL % 31.8- 35.4 red blood cell distribution width 15.9 % 11.6-14.8 platelet count 207 10^3/MM^3 10*3/mm3 129-265 8140/12/18 neutrophils as percent of blood leukocytes 37.0 % 42.2-75.2 monocytes as percent of blood leukocytes 32.3 % 1.7-9.3 lymphocytes as percent of blood leukocytes 21.3 % 20.5-51.1 erythrocyte (RBC) count 3.76 10^6/MM^3 10*6/mm3 4.04-5.48 hemoglobin, blood 11.6 g/dL 12.0-16.0 leukocyte count, blood 6.2 10^3/MM^3 10*3/mm3 4.6-10.2 hematocrit, blood 31.3 % 36.0-46.0 mean corpuscular volume, RBC 93 fL 80-97 mean corpuscular hemoglobin, RBC 31.7 pg 27.0-31.2 mean corpuscular hemoglobin concentration, RBC 34.1 G/DL % 31.8- 35.4 red blood cell distribution width 16.0 % 11.6-14.8 platelet count 183 10^3/MM^3 10*3/mm3 057-129 0663/12/23 neutrophils as percent of blood leukocytes 61.4 % 42.2-75.2 monocytes as percent of blood leukocytes 12.0 % 1.7-9.3 lymphocytes as percent of blood leukocytes 22.8 % 20.5-51.1 erythrocyte (RBC) count 3.37 10^6/MM^3 10*6/mm3 4.04-5.48 hemoglobin, blood 10.7 g/dL 12.0-16.0 leukocyte count, blood 2.0 10^3/MM^3 [...] % 11.6-14.8 platelet count 203 10^3/MM^3 10*3/mm3 891-771 2710/12/30 leukocyte count, blood 5.2 10^3/MM^3 10*3/mm3 4.6-10.2 [...] % 11.6-14.8 platelet count 200 10^3/MM^3 10*3/mm3 656-599 6444/03/02 leukocyte count, blood 5.1 10^3/MM^3 10*3/mm3 4.6-10.2 [...] CBC W/DIFF, Comp. Metabolic Panel - Chemistry chloride, serum 106 mmol/L 98-107 blood glucose 103 mg/dL 65-110 urea nitrogen, blood 25 mg/dL 7-18 creatinine, serum 0.83 mg/dL 0.55-1.30 alanine aminotransferase (SGPT), serum 38 U/L 12-78 aspartate aminotransferase (SGOT), serum 26 U/L 15-37 calcium, serum 8.7 mg/dL 8.5-10.1 bilirubin, serum, total 0.30 mg/dL 0.00-1.00 sodium, serum 140 mmol/L 616-159 6145/01/06 carbon dioxide, venous blood 27.2 mmol/L 21.0-32.0 potassium, serum 4.1 mmol/L 3.5-5.2 chloride, serum 105 mmol/L 98-107 blood glucose 70 mg/dL 65-110 urea nitrogen, blood 25 mg/dL 7-18 creatinine, serum 0.90 mg/dL 0.55-1.30 alanine aminotransferase (SGPT), serum 28 U/L -78 aspartate aminotransferase (SGOT), serum 20 U/L 15-37 calcium, serum 8.9 mg/dL 8.5-10.1 bilirubin, serum, total 0.40 mg/dL 0.00-1.00 sodium, serum 140 mmol/L 830-301 6584/01/13 carbon dioxide, venous blood 26.4 mmol/L 21.0-32.0 potassium, serum 4.2 mmol/L 3.5-5.2 chloride, serum 104 mmol/L 98-107 blood glucose 101 mg/dL 65-110 urea nitrogen, blood 18 mg/dL 7-18 creatinine, serum 0.80 mg/dL 0.55-1.30 alanine aminotransferase (SGPT), serum 28 U/L -78 aspartate aminotransferase (SGOT), serum 24 U/L 15-37 calcium, serum 8.7 mg/dL 8.5-10.1 bilirubin, serum, total 0.50 mg/dL 0.00-1.00 sodium, serum 138 mmol/L 981-985 6135/11/04 carbon dioxide, venous blood 27.7 mmol/L 21.0-32.0 potassium, serum 4.9 mmol/L 3.5-5.2 chloride, serum 104 mmol/L 98-107 blood glucose 92 mg/dL 65-110 urea nitrogen, blood 24 mg/dL 7-18 creatinine, serum 0.95 mg/dL 0.55-1.30 alanine aminotransferase (SGPT), serum 34 U/L 12-78 aspartate aminotransferase (SGOT), serum 23 U/L 15-37 calcium, serum 8.9 mg/dL 8.5-10.1 bilirubin, serum, total 0.70 mg/dL 0.00-1.00 sodium, serum 142 mmol/L 047-574 4503/02/04 carbon dioxide, venous blood 24.9 mmol/L 21.0-32.0 potassium, serum 4.1 mmol/L 3.5-5.2 Lab Report: CBC W/DIFF, Comp. Metabolic Panel [...] % 11.6-14.8 platelet count 216 10^3/MM^3 10*3/mm3 104-210 7404/01/13 neutrophils as percent of blood leukocytes 61.2 % 42.2-75.2 monocytes as percent of blood leukocytes 7.1 % 1.7-9.3 lymphocytes as percent of blood leukocytes 22.9 % 20.5-51.1 erythrocyte (RBC) count 3.79 10^6/MM^3 10*6/mm3 4.04-5.48 hemoglobin, blood 12.3 g/dL 12.0-16.0 neutrophils as percent of blood leukocytes 55.0 % 42.2-75.2 monocytes as percent of blood leukocytes 9.3 % 1.7-9.3 lymphocytes as percent of blood leukocytes 28.4 % 20.5-51.1 erythrocyte (RBC) count 3.59 10^6/MM^3 10*6/mm3 4.04-5.48 hemoglobin, blood 11.7 g/dL 12.0-16.0 leukocyte count, blood 5.2 10^3/MM^3 10*3/mm3 4.6-10.2 hematocrit, blood 36.2 % 36.0-46.0 mean corpuscular volume, RBC 96 fL 80-97 mean corpuscular hemoglobin, RBC 32.4 pg 27.0-31.2 mean corpuscular hemoglobin concentration, RBC 33.9 G/DL % 31.8- 35.4 red blood cell distribution width 20.5 % 11.6-14.8 platelet count 289 10^3/MM^3 10*3/mm3 202-947 3313/02/04 leukocyte count, blood 4.2 10^3/MM^3 10*3/mm3 4.6-10.2 [...] % 11.6-14.8 platelet count 271 10^3/MM^3 10*3/mm3 918-924 8203/01/06 leukocyte count, blood 4.1 10^3/MM^3 10*3/mm3 4.6-10.2 hematocrit, blood 34.3 % 36.0-46.0 mean corpuscular volume, RBC 96 fL 80-97 mean corpuscular hemoglobin, RBC 32.6 pg 27.0-31.2 mean corpuscular hemoglobin concentration, RBC 34.1 G/DL % 31.8- 35.4 red blood cell distribution width 17.9 % 11.6-14.8 platelet count 297 10^3/MM^3 10*3/mm3 142-424 Lab Report: CBC, Comp. Metabolic Panel, Lipid Panel - Chemistry sodium, serum 140 mmol/L 725-332 3520/07/13 potassium, serum 4.5 mmol/L 3.5-5.2 chloride, serum 106 mmol/L 98-107 carbon dioxide, venous blood 27.7 mmol/L 21.0-32.0 blood glucose 105 mg/dL 65-110 urea nitrogen, blood 14 mg/dL 7-18 creatinine, serum 0.90 mg/dL 0.60-1.30 alanine aminotransferase (SGPT), serum 29 U/L 12-78 aspartate aminotransferase (SGOT), serum 22 U/L 15-37 calcium, serum 9.4 mg/dL 8.5-10.1 bilirubin, serum, total 0.70 mg/dL 0.00-1.00 cholesterol, serum 160 mg/dL 633-921 4704/07/13 triglyceride, serum, fasting 63 mg/dL 30-200 HDL cholesterol, serum 68 mg/dL 32-96 LDL cholesterol, serum 79 mg/dL 0-130 Lab Report: CBC, Comp. Metabolic Panel, Lipid Panel - Hematology mean corpuscular volume, RBC 88 fL 80-97 mean corpuscular hemoglobin, RBC 29.1 pg 27.0-31.2 mean corpuscular hemoglobin concentration, RBC 33.0 G/DL % 31.8- 35.4 red blood cell distribution width 15.7 % 11.6-14.8 platelet count 263 10^3/MM^3 10*3/mm3 889-062 9006/07/13 hematocrit, blood 42.2 % 36.0-46.0 hemoglobin, blood 13.9 g/dL 12.0-16.0 erythrocyte (RBC) count 4.79 10^6/MM^3 10*6/mm3 4.04-5.48 leukocyte count, blood 5.0 10^3/MM^3 10*3/mm3 4.6-10.2 Lab Report: Comp. Metabolic Panel - Chemistry sodium, serum 141 mmol/L 198-013 9247/11/11 carbon dioxide, venous blood 26.8 mmol/L 21.0-32.0 potassium, serum 4.2 mmol/L 3.5-5.2 chloride, serum 106 mmol/L 98-107 blood glucose 95 mg/dL 65-110 urea nitrogen, blood 18 mg/dL 7-18 creatinine, serum 0.70 mg/dL 0.55-1.30 alanine aminotransferase (SGPT), serum 33 U/L 12-78 aspartate aminotransferase (SGOT), serum 22 U/L 15-37 calcium, serum 8.5 mg/dL 8.5-10.1 bilirubin, serum, total 0.30 mg/dL 0.00-1.00 sodium, serum 139 mmol/L 329-747 2184/12/30 carbon dioxide, venous blood 28.2 mmol/L 21.0-32.0 potassium, serum 3.9 mmol/L 3.5-5.2 chloride, serum 105 mmol/L 98-107 blood glucose 91 mg/dL 65-110 urea nitrogen, blood 17 mg/dL 7-18 creatinine, serum 0.81 mg/dL 0.55-1.30 alanine aminotransferase (SGPT), serum 29 U/L 12-78 aspartate aminotransferase (SGOT), serum 22 U/L 15-37 calcium, serum 8.8 mg/dL 8.5-10.1 bilirubin, serum, total 0.50 mg/dL 0.00-1.00 sodium, serum 143 mmol/L 990-663 4056/12/23 creatinine, serum 0.77 mg/dL 0.55-1.30 alanine aminotransferase (SGPT), serum 28 U/L 12-78 aspartate aminotransferase (SGOT), serum 20 U/L 15-37 calcium, serum 8.6 mg/dL 8.5-10.1 bilirubin, serum, total 0.30 mg/dL 0.00-1.00 carbon dioxide, venous blood 24.6 mmol/L 21.0-32.0 potassium, serum 4.1 mmol/L 3.5-5.2 chloride, serum 107 mmol/L 98-107 blood glucose 98 mg/dL 65-110 urea nitrogen, blood 22 mg/dL 7-18 sodium, serum 141 mmol/L 227-392 8890/11/18 carbon dioxide, venous blood 26.2 mmol/L 21.0-32.0 potassium, serum 4.4 mmol/L 3.5-5.2 chloride, serum 106 mmol/L 98-107 blood glucose 102 mg/dL 65-110 urea nitrogen, blood 24 mg/dL 7-18 creatinine, serum 0.77 mg/dL 0.55-1.30 alanine aminotransferase (SGPT), serum 30 U/L aspartate aminotransferase (SGOT), serum 15 U/L 15-37 calcium, serum 8.3 mg/dL 8.5-10.1 bilirubin, serum, total 0.30 mg/dL 0.00-1.00 sodium, serum 139 mmol/L 987-773 1731/11/25 carbon dioxide, venous blood 27.9 mmol/L 21.0-32.0 potassium, serum 4.7 mmol/L 3.5-5.2 chloride, serum 105 mmol/L 98-107 blood glucose 94 mg/dL 65-110 urea nitrogen, blood 21 mg/dL 7-18 creatinine, serum 0.79 mg/dL 0.55-1.30 alanine aminotransferase (SGPT), serum 40 U/L aspartate aminotransferase (SGOT), serum 22 U/L 15-37 calcium, serum 8.5 mg/dL 8.5-10.1 bilirubin, serum, total 0.80 mg/dL 0.00-1.00 urea nitrogen, blood 27 mg/dL 7-18 creatinine, serum 0.88 mg/dL 0.55-1.30 alanine aminotransferase (SGPT), serum 31 U/L aspartate aminotransferase (SGOT), serum 18 U/L 15-37 calcium, serum 8.9 mg/dL 8.5-10.1 bilirubin, serum, total 0.40 mg/dL 0.00-1.00 sodium, serum 140 mmol/L 309-545 7127/12/16 carbon dioxide, venous blood 25.4 mmol/L 21.0-32.0 potassium, serum 4.1 mmol/L 3.5-5.2 chloride, serum 104 mmol/L 98-107 blood glucose 110 mg/dL 65-110 urea nitrogen, blood 24 mg/dL 7-18 creatinine, serum 0.87 mg/dL 0.55-1.30 alanine aminotransferase (SGPT), serum 35 U/L aspartate aminotransferase (SGOT), serum 21 U/L 15-37 blood glucose 91 mg/dL 65-110 chloride, serum 109 mmol/L 98-107 potassium, serum 5.0 mmol/L 3.5-5.2 carbon dioxide, venous blood 28.5 mmol/L 21.0-32.0 sodium, serum 142 mmol/L 619-632 7988/12/16 calcium, serum 8.4 mg/dL 8.5-10.1 bilirubin, serum, total 0.50 mg/dL 0.00-1.00 sodium, serum 141 mmol/L 082-006 1439/12/02 carbon dioxide, venous blood 25.9 mmol/L 21.0-32.0 potassium, serum 4.7 mmol/L 3.5-5.2 chloride, serum 106 mmol/L 98-107 blood glucose 78 mg/dL 65-110 urea nitrogen, blood 24 mg/dL 7-18 creatinine, serum 0.75 mg/dL 0.55-1.30 alanine aminotransferase (SGPT), serum 31 U/L aspartate aminotransferase (SGOT), serum 20 U/L 15-37 calcium, serum 8.7 mg/dL 8.5-10.1 bilirubin, serum, total 0.30 mg/dL 0.00-1.00 Lab Report: VITAMIN D, 25-HYDROXY/62651 - Chemistry vitamin D 25-hydroxy, serum 24 ng/mL 30-100 Encounters Code Encounter Date Provider Facility CPT-73039 Level 3 Est. Patient 05:11:40 CDT Rikki GRANADOS [facility] CPT-14303 Level 2 Est. Patient 14:30:43 [employer]YWALL CARRIER Marta Viramontes [facility] CPT-44853 Level 4 Est. Patient 09:14:36 [employer]WALL [employer]RIER Rikki GRANADOS [facility] CPT-53325 Level 2 Est. Patient 09:07:32 CDT Marta Viramontes [facility] CPT-36008 Level 4 Est. Patient 11:55:00 CDT Rikki Stearns [facility] CPT-89825 Level 3 Est. Patient 13:25:16 CDT Jennifer Chun MD PhD [facility] CPT-00685 Level 3 Est. Patient 17:31:22 CDT Solomon Alamo MD [facility] CPT-72482 Level 3 Est. Patient 08:02:14 CDT Solomon Alamo MD [facility] CPT-08476 Level 3 Est. Patient 17:23:53 CDT Rikki Stearns [facility] CPT-97949 Level 3 Est. Patient 11:22:41 CDT Darryn Hearn [facility] Procedures Code Procedure Name Date Entry Date Standard Description CPT-21813 Chest 2V Frontal and Lat 10:57:00 [employer]YWALL [employer]ER CPT-36811 Venipuncture Draw Fee 10:56:59 [employer]YWALL CAR[employer]ER CPT-94253 Venipuncture Draw Fee 09:22:28 [employer]WALL [employer]ER CPT-26925 Chest 2V Frontal and Lat 09:22:27 [employer]YWALL CAR[employer]ER CPT-I/D I/D Abscess 09:43:13 CDT CPT-78107 Venipuncture Draw Fee 08:16:46 [employer]YWALL [employer]ER CPT-90758 Venipuncture Draw Fee 08:18:55 [employer]YWALL CAR[employer]ER CPT-20730 Venipuncture Draw Fee 08:31:18 [employer]YWALL CARRIER CPT-93210 Venipuncture Draw Fee 11:42:52 [employer]WALL [employer]ER CPT-62563 Venipuncture Draw Fee 13:26:37 [employer]WALL [employer]ER CPT-60744 Venipuncture Draw Fee 09:23:38 [employer]YWALL CAR[employer]ER CPT-000 Give Appropriate Tetanus Booster 10:23:50 CDT CPT-39938 Bone Density 08:28:45 CDT CPT-91755 Bone Density 11:35:15 CDT CPT-PV Prev. Care Visit 12:19:00 CDT CPT-63031 Venipuncture Draw Fee 15:02:58 CDT
--- OUTSIDE RECORDS SUMMARY | 2018-01-19 07:37 | XMS REPORT | Clinical Summary ---
Author Author Admin, E Organization [facility] Address Unknown Phone Unavailable Allergies, Adverse Reactions, Alerts Allergy Name Reaction Description Start Date Severity Status Provider SULFA facial swelling Critical Active Jocelyne Naff SAP SD ANALYST Conditions or Problems Problem Name Problem Code Onset Date Status Entry Date Provider Comment Standard Description Annotate G E R D 530.81 Active Jocelyne Naff SAP SD ANALYST Esophageal reflux FH COLON CANCER V16.0 Active Jocelyne Naff SAP SD ANALYST Family history of malignant neoplasm of [...] Ingrown toenail, left 703.0 Resolved Marta Yokum TELESCOPE OPERATOR Ingrowing nail cellulitis, finger, right 681.00 Active Marta Yokum TELESCOPE OPERATOR Cellulitis and abscess of finger, unspecified Cough 786.2 Active Marta Yokum TELESCOPE OPERATOR Cough Breast microcalcification ICD-793.81 Inactive Jennifer Chun [...] Ingrown toenail, left ICD-703.0 Inactive Marta Yokum TELESCOPE OPERATOR Medication List Medication Instructions Start Date Stop Date Generic Name NDC Status Provider Patient Instruction MEDROL (CAROLYN) 4 MG TABS 6 tabs on day 1, 5 tabs on day 2, 4 tabs on day 3, 3 tabs on day 4, 2 tabs on day 5, 1 tab on day 6 METHYLPREDNISOLONE 34582000528 Active Marta Yokum TELESCOPE OPERATOR Active TESSALON PERLES 100 MG CAP 1 to 2 tablets by mouth 3 times daily as needed for cough BENZONATATE 55371463611 Active Marta Yokum TELESCOPE OPERATOR Active TUSSIONEX PENNKINETIC ER 10-8 MG/5ML LQCR 5ml po q12hr PRN Cough HYDROCOD POLST-CHLORPHEN POLST 86385814172 Active Marta Yokum TELESCOPE OPERATOR Active KEFLEX 500 MG CAP 1 po qid CEPHALEXIN 34262172591 No Longer Active Marta Yokum TELESCOPE OPERATOR Active B COMPLEX 50 ORAL CR-TABS B COMPLEX VITAMINS 51593903114 Active Marta Yokum TELESCOPE OPERATOR Active TUSSIONEX PENNKINETIC ER 10-8 MG/5ML LQCR 5ml po q12hr PRN Cough HYDROCOD POLST-CHLORPHEN POLST 61509340799 No Longer Active Marta Viramontes APRN Active VITAMIN D3 43148 UNIT CAPS 1 qWeek x 4 months for vitamin D deficiency 04/09 CHOLECALCIFEROL 12432606794 Active Marta Viramontes APRN Active CEPHALEXIN 500 MG ORAL CAPS Take one four times a day CEPHALEXIN 66710290222 No Longer Active Marta Viramontes APRN Active BIOTIN 1000 MCG ORAL TABS Take one daily BIOTIN 75568369229 Active Rikki Harms PA Active VITAMIN C 500 MG ORAL CAPS Take one daily ASCORBIC ACID 17407271528 Active Rikki Harms PA Active BENZONATATE 200 MG ORAL CAPS One capsule tid. BENZONATATE 60582279125 No Longer Active Rikki Harms PA Active FLONASE ALLERGY RELIEF 50 MCG/ACT NASAL SUSP spray twice in each nostril one time daily FLUTICASONE PROPIONATE 11590441694 No Longer Active Rikki Harms PA Active TUSSIONEX PENNKINETIC ER 10-8 MG/5ML LQCR 5ml po q12hr PRN Cough HYDROCOD POLST-CHLORPHEN POLST 81877177046 No Longer Active Rikki Harms PA Active NIACIN ER 500 MG ORAL CR-TABS Take one twice daily NIACIN 15484232264 Active Rikki Harms PA Active ALBUTEROL SULFATE 0.083 % NEBU SOLN one vial per nebulizer every 4-6 hours as needed ALBUTEROL SULFATE 71435038343 No Longer Active Rikki Harms PA Active MEDROL (CAROLYN) 4 MG TABS 6 tabs on day 1, 5 tabs on day 2, 4 tabs on day 3, 3 tabs on day 4, 2 tabs on day 5, 1 tab on day 6 METHYLPREDNISOLONE 55145263738 No Longer Active Rikki Harms PA Active LEVAQUIN 750 MG TABS 1 po qd x 7 days LEVOFLOXACIN 83775036918 No Longer Active Rikki Harms PA Active LEVAQUIN 500 MG ORAL TABS Take one tablet daily LEVOFLOXACIN 01811442577 No Longer Active Rikki Harms PA Active PROAIR HFA 108 (90 BASE) MCG/ACT AERS 2 puffs four times a day as needed 2014 ALBUTEROL SULFATE 59105645670 Active Marta Yokum TELESCOPE OPERATOR Active LEVAQUIN 500 MG TAB 1 tablet by mouth daily LEVOFLOXACIN 67406260860 No Longer Active Marta Yokum TELESCOPE OPERATOR Active CHERATUSSIN AC 100-10 MG/5ML SYRP 1 tsp by mouth every 4 hours as needed for cough GUAIFENESIN-CODEINE 10297472585 No Longer Active Rikki Harms PA Active MUPIROCIN 2 % EXT OINT Use in each nostril in am and pm MUPIROCIN 02673413536 No Longer Active Rikki Harms PA Active DOXYCYCLINE HYCLATE 100 MG ORAL CAPS Take one bid DOXYCYCLINE HYCLATE 83948350567 No Longer Active Rikki Harms PA Active CLARITIN 10 MG TABS 1prn LORATADINE 33919418715 No Longer Active Jocelyne Naff SAP SD ANALYST Active ASPIRIN 81 MG TABS 1qd ASPIRIN 98341906658 No Longer Active Jocelyne Naff SAP SD ANALYST Active DOXYCYCLINE HYCLATE 100 MG CAP 1 cap by mouth twice daily DOXYCYCLINE HYCLATE 85762690539 No Longer Active Rikki Harms PA Active VITAMIN D3 55214 UNIT CAPS 1 pill by mouth weekly, for vitamin D deficiency CHOLECALCIFEROL 35206375913 No Longer Active Jennifer Chun MD PhD Active ANASTROZOLE 1 MG ORAL TABS Take one by mouth daily ANASTROZOLE 98377534012 Active Jennifer Chun MD PhD Active ZITHROMAX 250 MG TAB 2 po today, then 1 po q days 2-5 AZITHROMYCIN 03377967480 No Longer Active Rikki Harms PA Active MECLIZINE HCL 25 MG TABS 1 prn MECLIZINE HCL 33766705057 No Longer Active Solomon Alamo MD Active CHERATUSSIN AC SYRP prn as directed GUAIFENESIN- CODEINE SYRP 98710193881 No Longer Active Rikki Harms PA Active MULTIVITAMINS TABS 1qd MULTIPLE VITAMIN 78491598656 No Longer Active Rikki Harms PA Active OMEPRAZOLE 20 MG CPDR 1 PO Q D OMEPRAZOLE 29852457915 Active Jocelyne Naff SAP SD ANALYST Active ZITHROMAX Z-CAROLYN 250 MG TABS 2x1day,1f2iusu AZITHROMYCIN 61604286170 No Longer Active Jocelyne Naff SAP SD ANALYST Active MULTIVITAMINS TABS 1qd MULTIVITAMINS TABS MULTIPLE VITAMIN Inactive CHERATUSSIN AC SYRP prn as directed CHERATUSSIN AC SYRP GUAIFENESIN-CODEINE SYRP Inactive MECLIZINE HCL 25 MG TABS 1 prn MECLIZINE HCL 25 MG TABS 985994 MECLIZINE HCL Inactive ASPIRIN 81 MG TABS 1qd ASPIRIN 81 MG TABS ASPIRIN Inactive CLARITIN 10 MG TABS 1prn CLARITIN 10 MG TABS 224621 LORATADINE Inactive DOXYCYCLINE HYCLATE 100 MG ORAL CAPS Take one bid DOXYCYCLINE HYCLATE 100 MG ORAL CAPS 5782678 DOXYCYCLINE HYCLATE Inactive MUPIROCIN 2 % EXT OINT Use in each nostril in am and pm MUPIROCIN 2 % EXT OINT 363678 MUPIROCIN Inactive CHERATUSSIN AC 100-10 MG/5ML SYRP 1 tsp by mouth every 4 hours as needed for cough CHERATUSSIN AC 100-10 MG/5ML SYRP 752813 GUAIFENESIN-CODEINE Inactive LEVAQUIN 500 MG TAB 1 tablet by mouth daily LEVAQUIN 500 MG TAB 978988 LEVOFLOXACIN Inactive LEVAQUIN 500 MG ORAL TABS Take one tablet daily LEVAQUIN 500 MG ORAL TABS 19980111 LEVOFLOXACIN Inactive LEVAQUIN 750 MG TABS 1 po qd x 7 days LEVAQUIN 750 MG TABS 983150 LEVOFLOXACIN Inactive ALBUTEROL SULFATE 0.083 % NEBU SOLN one vial per nebulizer every 4-6 hours as needed ALBUTEROL SULFATE 0.083 % NEBU SOLN 673011 ALBUTEROL SULFATE Inactive TUSSIONEX PENNKINETIC ER 10-8 MG/5ML LQCR 5ml po q12hr PRN Cough TUSSIONEX PENNKINETIC ER 10-8 MG/5ML LQCR HYDROCOD POLST- CHLORPHEN POLST Inactive FLONASE ALLERGY RELIEF 50 MCG/ACT NASAL SUSP spray twice in each nostril one time daily FLONASE ALLERGY RELIEF 50 MCG/ACT NASAL SUSP 8422029 FLUTICASONE PROPIONATE Inactive BENZONATATE 200 MG ORAL CAPS One capsule tid. BENZONATATE 200 MG ORAL CAPS 273147 BENZONATATE Inactive CEPHALEXIN 500 MG ORAL CAPS Take one four times a day CEPHALEXIN 500 MG ORAL CAPS 454370 CEPHALEXIN Inactive TUSSIONEX PENNKINETIC ER 10-8 MG/5ML LQCR 5ml po q12hr PRN Cough TUSSIONEX PENNKINETIC ER 10-8 MG/5ML LQCR HYDROCOD POLST- CHLORPHEN POLST Inactive ZITHROMAX Z-ACROLYN 250 MG TABS 2x1day,0a0eaqu ZITHROMAX Z-CAROLYN 250 MG TABS 9526424 AZITHROMYCIN Inactive ZITHROMAX 250 MG TAB 2 po today, then 1 po q days 2-5 ZITHROMAX 250 MG TAB 4225703 AZITHROMYCIN Inactive VITAMIN D3 94594 UNIT CAPS 1 pill by mouth weekly, for vitamin D deficiency VITAMIN D3 41216 UNIT CAPS CHOLECALCIFEROL Inactive DOXYCYCLINE HYCLATE 100 MG CAP 1 cap by mouth twice daily DOXYCYCLINE HYCLATE 100 MG CAP 1382010 DOXYCYCLINE HYCLATE Inactive MEDROL (CAROLYN) 4 MG TABS 6 tabs on day 1, 5 tabs on day 2, 4 tabs on day 3, 3 tabs on day 4, 2 tabs on day 5, 1 tab on day 6 MEDROL ( CAROLYN) 4 MG TABS 999675 METHYLPREDNISOLONE Inactive KEFLEX 500 MG CAP 1 po qid KEFLEX 500 MG CAP 916799 CEPHALEXIN Inactive Vital Signs Date Name Value [...] Panel - Chemistry sodium, serum 142 mmol/L 943-143 4338/07/25 potassium, serum 4.0 mmol/L 3.5-5.2 chloride, serum 107 mmol/L 98-107 carbon dioxide, venous blood 31.6 mmol/L 21.0-32.0 blood glucose 108 mg/dL 65-110 calcium, serum 9.2 mg/dL 8.5-10.1 urea nitrogen, blood 20 mg/dL 7-18 creatinine, serum 0.92 mg/dL 0.55-1.30 sodium, serum 141 mmol/L 189-949 8560/11/11 potassium, serum 4.2 mmol/L 3.5-5.2 chloride, serum 106 mmol/L 98-107 carbon dioxide, venous blood 29.1 mmol/L 21.0-32.0 blood glucose 95 mg/dL 65-110 calcium, serum 8.6 mg/dL 8.5-10.1 urea nitrogen, blood 23 mg/dL 7-18 creatinine, serum 0.83 mg/dL 0.55-1.30 Lab Report: Lipid Panel, Thyroid Stimulating Hormone (L) - Chemistry cholesterol, serum 177 mg/dL [phone]/10/31 triglyceride, serum, fasting 64 mg/dL 30-200 HDL cholesterol, serum 77 mg/dL 32-96 LDL cholesterol, serum 87 mg/dL 0-130 TSH 2.13 m[iU]/mL 0.36-3.74 Lab Report: VITAMIN D, 25-HYDROXY/86317 - Chemistry vitamin D 25-hydroxy, serum 25 ng/mL 30-100 Encounters Code Encounter Date Provider Facility CPT-41792 Level 3 Est. Patient 16:07:34 CDT Marta Viramontes [facility] CPT-68738 Level 3 Est. Patient 15:39:01 CDT Marat Viramontes [facility] CPT-48861 Level 4 Est. Patient 17:31:07 CDT Marta Viramontes [facility] CPT-72001 Level 3 Est. Patient 05:11:40 CDT Rikki GRANADOS [facility] CPT-22596 Level 2 Est. Patient 14:30:43 SHADOWGRAPH SCALE OPERATOR Marta Viramontes [facility] CPT-78355 Level 4 Est. Patient 09:14:36 SHADOWGRAPH SCALE OPERATOR Rikki GRANADOS [facility] CPT-46133 Level 2 Est. Patient 09:07:32 CDT Marta Viramontes [facility] CPT-73505 Level 4 Est. Patient 11:55:00 CDT Rikki GRANADOS [facility] CPT-27548 Level 3 Est. Patient 13:25:16 CDT Jennifer Chun MD [facility] CPT-58163 Level 3 Est. Patient 17:31:22 CDT Solomon Alamo MD [facility] CPT-74460 Level 3 Est. Patient 08:02:14 CDT Solomon Alamo MD [facility] CPT-44109 Level 3 Est. Patient 17:23:53 CDT Rikki GRANADOS [facility] CPT-52473 Level 3 Est. Patient 11:22:41 CDT Darryn Hearn [facility] Procedures Code Procedure Name Date Entry Date Standard Description CPT-31948 Venipuncture Draw Fee 12:43:48 SHADOWGRAPH SCALE OPERATOR CPT-71699 BMP - LAB USE ONLY 10:32:33 SHADOWGRAPH SCALE OPERATOR CPT-77464 Venipuncture Draw Fee 10:32:33 SHADOWGRAPH SCALE OPERATOR CPT-25217 Magnesium - LAB USE ONLY 09:54:30 CDT CPT-79231 TSH - LAB USE ONLY 09:54:30 CDT CPT-60196 Lipid - LAB USE ONLY 09:54:30 CDT CPT-58606 Venipuncture Draw Fee 09:54:29 CDT CPT-51727 Venipuncture Draw Fee 18:27:04 CDT CPT-35829 Chest 2V Frontal and Lat 10:57:00 SHADOWGRAPH SCALE OPERATOR CPT-79318 Venipuncture Draw Fee 10:56:59 SHADOWGRAPH SCALE OPERATOR CPT-58585 Venipuncture Draw Fee 09:22:28 SHADOWGRAPH SCALE OPERATOR CPT-51333 Chest 2V Frontal and Lat 09:22:27 SHADOWGRAPH SCALE OPERATOR CPT-I/D I/D Abscess 09:43:13 CDT CPT-84780 Venipuncture Draw Fee 08:16:46 SHADOWGRAPH SCALE OPERATOR CPT-61043 Venipuncture Draw Fee 08:18:55 SHADOWGRAPH SCALE OPERATOR CPT-70852 Venipuncture Draw Fee 08:31:18 SHADOWGRAPH SCALE OPERATOR CPT-65765 Venipuncture Draw Fee 11:42:52 SHADOWGRAPH SCALE OPERATOR CPT-07287 Venipuncture Draw Fee 13:26:37 SHADOWGRAPH SCALE OPERATOR CPT-30343 Venipuncture Draw Fee 09:23:38 SHADOWGRAPH SCALE OPERATOR CPT-000 Give Appropriate Tetanus Booster 10:23:50 CDT CPT-95995 Bone Density 08:28:45 CDT CPT-57226 Bone Density 11:35:15 CDT CPT-PV Prev. Care Visit 12:19:00 CDT CPT-69701 Venipuncture Draw Fee 15:02:58 CDT
--- OUTSIDE RECORDS SUMMARY | 2018-01-19 07:38 | XMS REPORT | Clinical Summary ---
Author Author Admin, E Organization [facility] Address Unknown Phone Unavailable Allergies, Adverse Reactions, Alerts Allergy Name Reaction Description Start Date Severity Status Provider SULFA facial swelling Critical Active Jocelyne Naff GRAIN OPERATIONS MANAGER Conditions or Problems Problem Name Problem Code Onset Date Status Entry Date Provider Comment Standard Description Annotate G E R D 530.81 Active Jocelyne Naff GRAIN OPERATIONS MANAGER Esophageal reflux FH COLON CANCER V16.0 Active Jocelyne Naff GRAIN OPERATIONS MANAGER Family history of malignant neoplasm of gastrointestinal tract ESOPHAGEAL STRICTURE 530.3 Active Darryn Hearn PA Stricture and stenosis of esophagus CAROTID ARTERY STENOSIS, RIGHT 433.10 Active Rikki Stearns PA Occlusion and stenosis of carotid artery, without mention of cerebral infarction HEALTH SCREENING V70.0 Active Rose Darnell GRAIN OPERATIONS MANAGER Routine general medical examination at a [...] unspecified sites Rash 782.1 Active Marta Viramontes [employer]ERCISE 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 BENZONATATE 15521883903 Active Rikki GRANADOS Active CHERATUSSIN AC 100-10 MG/5ML SYRP 1 tsp by mouth every 4 hours as needed for cough GUAIFENESIN-CODEINE 12741978578 No Longer Active Rikki GRANADOS Active LEVAQUIN 500 MG TAB 1 tablet by mouth daily LEVOFLOXACIN 54818167947 Active Rikki Harms PA Active MUPIROCIN 2 % EXT OINT Use in each nostril in am and pm MUPIROCIN 07639937876 No Longer Active Rikki Harms PA Active DOXYCYCLINE HYCLATE 100 MG ORAL CAPS Take one bid DOXYCYCLINE HYCLATE 97983346909 No Longer Active Rikki Harms PA Active CLARITIN 10 MG TABS 1prn LORATADINE 20766876134 No Longer Active Jocelyne Naff GRAIN OPERATIONS MANAGER Active ASPIRIN 81 MG TABS 1qd ASPIRIN 50750574097 No Longer Active Jocelyne Naff GRAIN OPERATIONS MANAGER Active DOXYCYCLINE HYCLATE 100 MG CAP 1 cap by mouth twice daily DOXYCYCLINE HYCLATE 89136827982 No Longer Active Rikki Harms PA Active VITAMIN D3 32371 UNIT CAPS 1 pill by mouth weekly, for vitamin D deficiency CHOLECALCIFEROL 93177905110 No Longer Active Jennifer Chun MD PhD Active ANASTROZOLE 1 MG ORAL TABS Take one by mouth daily ANASTROZOLE 49479497853 Active Jennifer Chun MD PhD Active ZITHROMAX 250 MG TAB 2 po today, then 1 po q days 2-5 AZITHROMYCIN 35202711305 No Longer Active Rikki Harms PA Active MECLIZINE HCL 25 MG TABS 1 prn MECLIZINE HCL 19788476986 No Longer Active Solomon Alamo MD Active CHERATUSSIN AC SYRP prn as directed GUAIFENESIN- CODEINE SYRP 92066809301 No Longer Active Rikki Harms PA Active MULTIVITAMINS TABS 1qd MULTIPLE VITAMIN 37555710087 No Longer Active Rikki Harms PA Active OMEPRAZOLE 20 MG CPDR 1 PO Q D OMEPRAZOLE 54996738772 Active Rikik Harms PA Active ZITHROMAX Z-CAROLYN 250 MG TABS 2x1day,7u3elyw AZITHROMYCIN 52950368534 No Longer Active Jocelyne Naff GRAIN OPERATIONS MANAGER Active MULTIVITAMINS TABS 1qd MULTIVITAMINS TABS MULTIPLE VITAMIN Inactive CHERATUSSIN AC SYRP prn as directed CHERATUSSIN AC SYRP GUAIFENESIN-CODEINE SYRP Inactive MECLIZINE HCL 25 MG TABS 1 prn MECLIZINE HCL 25 MG TABS 500839 MECLIZINE HCL Inactive ASPIRIN 81 MG TABS 1qd ASPIRIN 81 MG TABS 274378 ASPIRIN Inactive CLARITIN 10 MG TABS 1prn CLARITIN 10 MG TABS 476528 LORATADINE Inactive DOXYCYCLINE HYCLATE 100 MG ORAL CAPS Take one bid DOXYCYCLINE HYCLATE 100 MG ORAL CAPS 9833125 DOXYCYCLINE HYCLATE Inactive MUPIROCIN 2 % EXT OINT Use in each nostril in am and pm MUPIROCIN 2 % EXT OINT 283299 MUPIROCIN Inactive CHERATUSSIN AC 100-10 MG/5ML SYRP 1 tsp by mouth every 4 hours as needed for cough CHERATUSSIN AC 100-10 MG/5ML SYRP 585205 GUAIFENESIN-CODEINE Inactive ZITHROMAX Z-CAROLYN 250 MG TABS 2x1day,3n8abjt ZITHROMAX Z-CAROLYN 250 MG TABS 8043488 AZITHROMYCIN Inactive ZITHROMAX 250 MG TAB 2 po today, then 1 po q days 2-5 ZITHROMAX 250 MG TAB 4164464 AZITHROMYCIN Inactive VITAMIN D3 49885 UNIT CAPS 1 pill by mouth weekly, for vitamin D deficiency VITAMIN D3 04433 UNIT CAPS CHOLECALCIFEROL Inactive DOXYCYCLINE HYCLATE 100 MG CAP 1 cap by mouth twice daily DOXYCYCLINE HYCLATE 100 MG CAP 1052132 DOXYCYCLINE HYCLATE Inactive Vital Signs Date Name [...] % 11.6-14.8 platelet count 195 10^3/MM^3 10*3/mm3 384-043 4043/01/28 leukocyte count, blood 11.9 10^3/MM^3 10*3/mm3 4.6-10.2 [...] % 11.6-14.8 platelet count 278 10^3/MM^3 10*3/mm3 250-468 9679/02/04 leukocyte count, blood 8.5 10^3/MM^3 10*3/mm3 4.6-10.2 [...] % 11.6-14.8 platelet count 326 10^3/MM^3 10*3/mm3 585-012 7873/02/10 leukocyte count, blood 2.3 10^3/MM^3 10*3/mm3 4.6-10.2 [...] % 11.6-14.8 platelet count 240 10^3/MM^3 10*3/mm3 341-841 3954/02/17 leukocyte count, blood 3.4 10^3/MM^3 10*3/mm3 4.6-10.2 [...] % 11.6-14.8 platelet count 308 10^3/MM^3 10*3/mm3 875-035 4872/02/25 leukocyte count, blood 6.6 10^3/MM^3 10*3/mm3 4.6-10.2 [...] % 11.6-14.8 platelet count 433 10^3/MM^3 10*3/mm3 817-631 5730/12/31 hemoglobin, blood 13.0 g/dL 12.0-16.0 hematocrit, blood 39.4 % 36.0-46.0 mean corpuscular volume, RBC 90 fL 80-97 mean corpuscular hemoglobin, RBC 29.8 pg 27.0-31.2 mean corpuscular hemoglobin concentration, RBC 33.0 G/DL % 31.8- 35.4 red blood cell distribution width 14.9 % 11.6-14.8 platelet count 222 10^3/MM^3 10*3/mm3 896-538 2756/01/07 leukocyte count, blood 11.7 10^3/MM^3 10*3/mm3 4.6-10.2 [...] % 11.6-14.8 platelet count 191 10^3/MM^3 10*3/mm3 091-509 4177/12/31 erythrocyte (RBC) count 4.37 10^6/MM^3 10*6/mm3 4.04-5.48 lymphocytes as percent of blood leukocytes 37.1 % 20.5-51.1 monocytes as percent of blood leukocytes 43.6 % 1.7-9.3 neutrophils as percent of blood leukocytes 8.8 % 42.2-75.2 leukocyte count, blood 5.3 10^3/MM^3 10*3/mm3 4.6-10.2 leukocyte count, blood 2.0 10^3/MM^3 10*3/mm3 4.6-10.2 [...] % 11.6-14.8 platelet count 203 10^3/MM^3 10*3/mm3 361-925 6617/11/18 leukocyte count, blood 8.5 10^3/MM^3 10*3/mm3 4.6-10.2 [...] % 11.6-14.8 platelet count 143 10^3/MM^3 10*3/mm3 446-676 1484/11/25 leukocyte count, blood 2.1 10^3/MM^3 10*3/mm3 4.6-10.2 [...] % 11.6-14.8 platelet count 139 10^3/MM^3 10*3/mm3 345-411 5747/12/02 leukocyte count, blood 6.7 10^3/MM^3 10*3/mm3 4.6-10.2 [...] % 11.6-14.8 platelet count 258 10^3/MM^3 10*3/mm3 722-114 7715/12/09 leukocyte count, blood 5.3 10^3/MM^3 10*3/mm3 4.6-10.2 [...] % 11.6-14.8 platelet count 240 10^3/MM^3 10*3/mm3 680-704 6002/12/16 leukocyte count, blood 3.2 10^3/MM^3 10*3/mm3 4.6-10.2 [...] % 11.6-14.8 platelet count 158 10^3/MM^3 10*3/mm3 166-178 8608/12/18 leukocyte count, blood 8.8 10^3/MM^3 10*3/mm3 4.6-10.2 [...] % 11.6-14.8 platelet count 207 10^3/MM^3 10*3/mm3 443-293 3288/12/23 leukocyte count, blood 6.2 10^3/MM^3 10*3/mm3 4.6-10.2 [...] Comp. Metabolic Panel - Chemistry chloride, serum 107 mmol/L 98-107 carbon dioxide, venous blood 28.9 mmol/L 21.0-32.0 blood glucose 100 mg/dL 65-110 urea nitrogen, blood 19 mg/dL 7-18 creatinine, serum 0.90 mg/dL 0.60-1.30 alanine aminotransferase (SGPT), serum 28 U/L 12-78 aspartate aminotransferase (SGOT), serum 24 U/L 15-37 calcium, serum 8.2 mg/dL 8.5-10.1 bilirubin, serum, total 0.40 mg/dL 0.00-1.00 sodium, serum 138 mmol/L 802-313 7359/11/04 carbon dioxide, venous blood 27.7 mmol/L 21.0-32.0 potassium, serum 4.9 mmol/L 3.5-5.2 chloride, serum 104 mmol/L 98-107 blood glucose 92 mg/dL 65-110 urea nitrogen, blood 24 mg/dL 7-18 creatinine, serum 0.95 mg/dL 0.55-1.30 alanine aminotransferase (SGPT), serum 34 U/L 12-78 aspartate aminotransferase (SGOT), serum 23 U/L 15-37 calcium, serum 8.9 mg/dL 8.5-10.1 bilirubin, serum, total 0.70 mg/dL 0.00-1.00 sodium, serum 141 mmol/L 652-952 0853/01/14 potassium, serum 4.9 mmol/L 3.5-5.2 Lab Report: CBC W/DIFF, Comp. [...] % 11.6-14.8 platelet count 216 10^3/MM^3 10*3/mm3 931-808 8308/01/14 leukocyte count, blood 6.7 10^3/MM^3 10*3/mm3 4.6-10.2 [...] Panel - Chemistry sodium, serum 140 mmol/L 967-884 9002/07/13 potassium, serum 4.5 mmol/L 3.5-5.2 chloride, serum 106 mmol/L 98-107 carbon dioxide, venous blood 27.7 mmol/L 21.0-32.0 blood glucose 105 mg/dL 65-110 urea nitrogen, blood 14 mg/dL 7-18 creatinine, serum 0.90 mg/dL 0.60-1.30 alanine aminotransferase (SGPT), serum 29 U/L 12-78 aspartate aminotransferase (SGOT), serum 22 U/L 15-37 calcium, serum 9.4 mg/dL 8.5-10.1 bilirubin, serum, total 0.70 mg/dL 0.00-1.00 cholesterol, serum 160 mg/dL 919-089 2006/07/13 triglyceride, serum, fasting 63 mg/dL 30-200 HDL [...] Panel - Chemistry sodium, serum 141 mmol/L 019-321 4437/02/10 potassium, serum 5.2 mmol/L 3.5-5.2 chloride, serum 106 mmol/L 98-107 carbon dioxide, venous blood 27.8 mmol/L 21.0-32.0 blood glucose 111 mg/dL 65-110 urea nitrogen, blood 18 mg/dL 7-18 creatinine, serum 0.90 mg/dL 0.60-1.30 alanine aminotransferase (SGPT), serum 29 U/L -78 aspartate aminotransferase (SGOT), serum 21 U/L 15-37 calcium, serum 8.3 mg/dL 8.5-10.1 bilirubin, serum, total 0.40 mg/dL 0.00-1.00 sodium, serum 141 mmol/L 557-020 6742/11/11 carbon dioxide, venous blood 26.8 mmol/L 21.0-32.0 potassium, serum 4.2 mmol/L 3.5-5.2 chloride, serum 106 mmol/L 98-107 blood glucose 95 mg/dL 65-110 urea nitrogen, blood 18 mg/dL 7-18 creatinine, serum 0.70 mg/dL 0.55-1.30 alanine aminotransferase (SGPT), serum 33 U/L aspartate aminotransferase (SGOT), serum 22 U/L 15-37 calcium, serum 8.5 mg/dL 8.5-10.1 bilirubin, serum, total 0.30 mg/dL 0.00-1.00 sodium, serum 143 mmol/L 637-359 7652/12/23 carbon dioxide, venous blood 24.6 mmol/L 21.0-32.0 potassium, serum 4.1 mmol/L 3.5-5.2 chloride, serum 107 mmol/L 98-107 blood glucose 98 mg/dL 65-110 urea nitrogen, blood 22 mg/dL 7-18 creatinine, serum 0.77 mg/dL 0.55-1.30 alanine aminotransferase (SGPT), serum 28 U/L 78 aspartate aminotransferase (SGOT), serum 20 U/L 15-37 calcium, serum 8.6 mg/dL 8.5-10.1 bilirubin, serum, total 0.30 mg/dL 0.00-1.00 sodium, serum 142 mmol/L 416-543 2990/12/09 carbon dioxide, venous blood 28.5 mmol/L 21.0-32.0 potassium, serum 5.0 mmol/L 3.5-5.2 chloride, serum 109 mmol/L 98-107 blood glucose 91 mg/dL 65-110 urea nitrogen, blood 27 mg/dL 7-18 creatinine, serum 0.88 mg/dL 0.55-1.30 alanine aminotransferase (SGPT), serum 31 U/L aspartate aminotransferase (SGOT), serum 18 U/L 15-37 calcium, serum 8.9 mg/dL 8.5-10.1 bilirubin, serum, total 0.40 mg/dL 0.00-1.00 sodium, serum 140 mmol/L 097-000 4013/12/16 carbon dioxide, venous blood 25.4 mmol/L 21.0-32.0 potassium, serum 4.1 mmol/L 3.5-5.2 chloride, serum 104 mmol/L 98-107 blood glucose 110 mg/dL 65-110 urea nitrogen, blood 24 mg/dL 7-18 creatinine, serum 0.87 mg/dL 0.55-1.30 alanine aminotransferase (SGPT), serum 35 U/L 12-78 aspartate aminotransferase (SGOT), serum 21 U/L 15-37 calcium, serum 8.4 mg/dL 8.5-10.1 bilirubin, serum, total 0.50 mg/dL 0.00-1.00 sodium, serum 141 mmol/L 469-239 0507/12/02 carbon dioxide, venous blood 25.9 mmol/L 21.0-32.0 potassium, serum 4.7 mmol/L 3.5-5.2 chloride, serum 106 mmol/L 98-107 blood glucose 78 mg/dL 65-110 urea nitrogen, blood 24 mg/dL 7- creatinine, serum 0.75 mg/dL 0.55-1.30 alanine aminotransferase (SGPT), serum 31 U/L aspartate aminotransferase (SGOT), serum 20 U/L -37 calcium, serum 8.7 mg/dL 8.5-10.1 bilirubin, serum, total 0.30 mg/dL 0.00-1.00 sodium, serum 141 mmol/L 026-236 7573/11/18 carbon dioxide, venous blood 26.2 mmol/L 21.0-32.0 potassium, serum 4.4 mmol/L 3.5-5.2 chloride, serum 106 mmol/L 98-107 blood glucose 102 mg/dL 65-110 urea nitrogen, blood 24 mg/dL 7- creatinine, serum 0.77 mg/dL 0.55-1.30 alanine aminotransferase (SGPT), serum 30 U/L aspartate aminotransferase (SGOT), serum 15 U/L 15-37 calcium, serum 8.3 mg/dL 8.5-10.1 bilirubin, serum, total 0.30 mg/dL 0.00-1.00 sodium, serum 139 mmol/L 472-415 3982/11/25 carbon dioxide, venous blood 27.9 mmol/L 21.0-32.0 potassium, serum 4.7 mmol/L 3.5-5.2 chloride, serum 105 mmol/L 98-107 blood glucose 94 mg/dL 65-110 urea nitrogen, blood 21 mg/dL 7-18 creatinine, serum 0.79 mg/dL 0.55-1.30 alanine aminotransferase (SGPT), serum 40 U/L 12-78 aspartate aminotransferase (SGOT), serum 22 U/L 15-37 calcium, serum 8.5 mg/dL 8.5-10.1 bilirubin, serum, total 0.80 mg/dL 0.00-1.00 Lab Report: VITAMIN D, 25-HYDROXY/61963 - Chemistry vitamin D 25-hydroxy, serum 24 ng/mL 30-100 Encounters Code Encounter Date Provider Facility CPT-29679 Level 4 Est. 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 Patient 09:07:32 CDT Marta Viramontes APRN [facility] CPT-29697 Level 4 Est. Patient 11:55:00 CDT Rikki GRANADOS [facility] CPT-25322 Level 3 Est. Patient 13:25:16 CDT Jennifer Chun MD PhD [facility] CPT-60102 Level 3 Est. Patient 17:31:22 CDT Solomon Alamo MD [facility] CPT-84340 Level 3 Est. Patient 08:02:14 CDT Solomon Alamo MD [facility] CPT-41853 Level 3 Est. Patient 17:23:53 CDT Rikki GRANADOS [facility] CPT-60896 Level 3 Est. Patient 11:22:41 CDT Darryn GRANADOS [facility] Procedures Code Procedure Name Date Entry Date Standard Description CPT-12692 Venipuncture Draw Fee 09:22:28 N[employer] CPT-76517 Chest 2V Frontal and Lat 09:22:27 [employer]OR CPT-I/D I/D Abscess 09:43:13 CDT CPT-08476 Venipuncture Draw Fee 08:16:46 [employer] W[employer] CPT-75938 Venipuncture Draw Fee 08:18:55 [employer] CPT-68088 Venipuncture Draw Fee 08:31:18 N[employer] CPT-32746 Venipuncture Draw Fee 11:42:52 [employer] CPT-40838 Venipuncture Draw Fee 13:26:37 N[employer]OR CPT-53546 Venipuncture Draw Fee 09:23:38 [employer] CPT-000 Give Appropriate Tetanus Booster 10:23:50 CDT CPT-64240 Bone Density 08:28:45 CDT CPT-25288 Bone Density 11:35:15 CDT CPT-PV Prev. Care Visit 12:19:00 CDT CPT-85532 Venipuncture Draw Fee 15:02:58 CDT
--- OUTSIDE RECORDS SUMMARY | 2018-01-19 07:39 | XMS REPORT | Clinical Summary ---
Author Author Admin, E Organization [facility] Address Unknown Phone Unavailable Allergies, Adverse Reactions, Alerts Allergy Name Reaction Description Start Date Severity Status Provider SULFA facial swelling Critical Active Jocelyne Naff MANAGER BEHAVIORAL Conditions or Problems Problem Name Problem Code Onset Date Status Entry Date Provider Comment Standard Description Annotate G E R D 530.81 Active Jocelyne Naff MANAGER BEHAVIORAL Esophageal reflux FH COLON CANCER V16.0 Active Jocelyne Naff MANAGER BEHAVIORAL Family history of malignant neoplasm of gastrointestinal [...] Ingrown toenail, left 703.0 Resolved Marta Yokum PRODUCTION TEAM MANAGER Ingrowing nail cellulitis, finger, right 681.00 Active Marta Yokum PRODUCTION TEAM MANAGER Cellulitis and abscess of finger, unspecified Cough 786.2 Active Marta Yokum PRODUCTION TEAM MANAGER Cough Breast microcalcification ICD-793.81 Inactive Jennifer [...] Ingrown toenail, left ICD-703.0 Inactive Martacarlos Maganaum PRODUCTION TEAM MANAGER Medication List Medication Instructions Start Date Stop Date Generic Name NDC Status Provider Patient Instruction AUGMENTIN 875-125 MG TAB 1 po BID x 10 days AMOXICILLIN-POT CLAVULANATE 36340480117 Active Marta Yokum PRODUCTION TEAM MANAGER Active MEDROL (CAROLYN) 4 MG TABS 6 tabs on day 1, 5 tabs on day 2, 4 tabs on day 3, 3 tabs on day 4, 2 tabs on day 5, 1 tab on day 6 METHYLPREDNISOLONE 21165540733 No Longer Active Marta Yokum PRODUCTION TEAM MANAGER Active TESSALON PERLES 100 MG CAP 1 to 2 tablets by mouth 3 times daily as needed for cough BENZONATATE 88279948860 Active Marta Yokum PRODUCTION TEAM MANAGER Active TUSSIONEX PENNKINETIC ER 10-8 MG/5ML LQCR 5ml po q12hr PRN Cough HYDROCOD POLST-CHLORPHEN POLST 69376076312 Active Marta Yokum PRODUCTION TEAM MANAGER Active KEFLEX 500 MG CAP 1 po qid CEPHALEXIN 85086815317 No Longer Active Marta Yokum PRODUCTION TEAM MANAGER Active B COMPLEX 50 ORAL CR-TABS B COMPLEX VITAMINS 83954546950 Active Marta Viramontes APRN Active TUSSIONEX PENNKINETIC ER 10-8 MG/5ML LQCR 5ml po q12hr PRN Cough HYDROCOD POLST-CHLORPHEN POLST 13145117089 No Longer Active Marta Viramontes APRN Active VITAMIN D3 86574 UNIT CAPS 1 qWeek x 4 months for vitamin D deficiency 04/09 CHOLECALCIFEROL 41905370109 Active Marta Viramontes PRODUCTION TEAM MANAGER Active CEPHALEXIN 500 MG ORAL CAPS Take one four times a day CEPHALEXIN 14745453280 No Longer Active Marta Viramontes PRODUCTION TEAM MANAGER Active BIOTIN 1000 MCG ORAL TABS Take one daily BIOTIN 45349849275 Active Rikki Harms PA Active VITAMIN C 500 MG ORAL CAPS Take one daily ASCORBIC ACID 71637836505 Active Rikki Harms PA Active BENZONATATE 200 MG ORAL CAPS One capsule tid. BENZONATATE 37724488238 No Longer Active Rikki Harms PA Active FLONASE ALLERGY RELIEF 50 MCG/ACT NASAL SUSP spray twice in each nostril one time daily FLUTICASONE PROPIONATE 91702186651 No Longer Active Rikki Harms PA Active TUSSIONEX PENNKINETIC ER 10-8 MG/5ML LQCR 5ml po q12hr PRN Cough HYDROCOD POLST-CHLORPHEN POLST 40047841935 No Longer Active Rikki Harms PA Active NIACIN ER 500 MG ORAL CR-TABS Take one twice daily NIACIN 44620506347 Active Rikki Harms PA Active ALBUTEROL SULFATE 0.083 % NEBU SOLN one vial per nebulizer every 4-6 hours as needed ALBUTEROL SULFATE 53913898701 No Longer Active Rikki Harms PA Active MEDROL (CAROLYN) 4 MG TABS 6 tabs on day 1, 5 tabs on day 2, 4 tabs on day 3, 3 tabs on day 4, 2 tabs on day 5, 1 tab on day 6 METHYLPREDNISOLONE 44357892864 No Longer Active Rikki Harms PA Active LEVAQUIN 750 MG TABS 1 po qd x 7 days LEVOFLOXACIN 77496087945 No Longer Active Rikki Harms PA Active LEVAQUIN 500 MG ORAL TABS Take one tablet daily LEVOFLOXACIN 40192997528 No Longer Active Rikki Harms PA Active PROAIR HFA 108 (90 BASE) MCG/ACT AERS 2 puffs four times a day as needed 2014 ALBUTEROL SULFATE 03466056915 Active Marta Yokum PRODUCTION TEAM MANAGER Active LEVAQUIN 500 MG TAB 1 tablet by mouth daily LEVOFLOXACIN 35436363868 No Longer Active Marta Yokum PRODUCTION TEAM MANAGER Active CHERATUSSIN AC 100-10 MG/5ML SYRP 1 tsp by mouth every 4 hours as needed for cough GUAIFENESIN-CODEINE 63761898073 No Longer Active Rikki Harms PA Active MUPIROCIN 2 % EXT OINT Use in each nostril in am and pm MUPIROCIN 71100192907 No Longer Active Rikki Harms PA Active DOXYCYCLINE HYCLATE 100 MG ORAL CAPS Take one bid DOXYCYCLINE HYCLATE 33539769120 No Longer Active Rikki Harms PA Active CLARITIN 10 MG TABS 1prn LORATADINE 13802158687 No Longer Active Jocelyne Naff MANAGER BEHAVIORAL Active ASPIRIN 81 MG TABS 1qd ASPIRIN 58234716304 No Longer Active Jocelyne Naff MANAGER BEHAVIORAL Active DOXYCYCLINE HYCLATE 100 MG CAP 1 cap by mouth twice daily DOXYCYCLINE HYCLATE 54099921673 No Longer Active Rikki Harms PA Active VITAMIN D3 36951 UNIT CAPS 1 pill by mouth weekly, for vitamin D deficiency CHOLECALCIFEROL 85486870695 No Longer Active Jennifer Chun MD PhD Active ANASTROZOLE 1 MG ORAL TABS Take one by mouth daily ANASTROZOLE 28305134719 Active Jennifer Chun MD PhD Active ZITHROMAX 250 MG TAB 2 po today, then 1 po q days 2-5 AZITHROMYCIN 27642498329 No Longer Active Rikki Harms PA Active MECLIZINE HCL 25 MG TABS 1 prn MECLIZINE HCL 16084275297 No Longer Active Solomon Alamo MD Active CHERATUSSIN AC SYRP prn as directed GUAIFENESIN- CODEINE SYRP 98991256590 No Longer Active Rikki Harms PA Active MULTIVITAMINS TABS 1qd MULTIPLE VITAMIN 27841992336 No Longer Active Rikki Harms PA Active OMEPRAZOLE 20 MG CPDR 1 PO Q D OMEPRAZOLE 56209256640 Active Jocelyne Naff MANAGER BEHAVIORAL Active ZITHROMAX Z-CAROLYN 250 MG TABS 2x1day,5l6ysdm AZITHROMYCIN 00326905891 No Longer Active Jocelyne Naff MANAGER BEHAVIORAL Active MULTIVITAMINS TABS 1qd MULTIVITAMINS TABS MULTIPLE VITAMIN Inactive CHERATUSSIN AC SYRP prn as directed CHERATUSSIN AC SYRP GUAIFENESIN-CODEINE SYRP Inactive MECLIZINE HCL 25 MG TABS 1 prn MECLIZINE HCL 25 MG TABS 384491 MECLIZINE HCL Inactive ASPIRIN 81 MG TABS 1qd ASPIRIN 81 MG TABS ASPIRIN Inactive CLARITIN 10 MG TABS 1prn CLARITIN 10 MG TABS 815299 LORATADINE Inactive DOXYCYCLINE HYCLATE 100 MG ORAL CAPS Take one bid DOXYCYCLINE HYCLATE 100 MG ORAL CAPS 9176646 DOXYCYCLINE HYCLATE Inactive MUPIROCIN 2 % EXT OINT Use in each nostril in am and pm MUPIROCIN 2 % EXT OINT 626320 MUPIROCIN Inactive CHERATUSSIN AC 100-10 MG/5ML SYRP 1 tsp by mouth every 4 hours as needed for cough CHERATUSSIN AC 100-10 MG/5ML SYRP 856127 GUAIFENESIN-CODEINE Inactive LEVAQUIN 500 MG TAB 1 tablet by mouth daily LEVAQUIN 500 MG TAB 480736 LEVOFLOXACIN Inactive LEVAQUIN 500 MG ORAL TABS Take one tablet daily LEVAQUIN 500 MG ORAL TABS 993079 LEVOFLOXACIN Inactive LEVAQUIN 750 MG TABS 1 po qd x 7 days LEVAQUIN 750 MG TABS 982645 LEVOFLOXACIN Inactive ALBUTEROL SULFATE 0.083 % NEBU SOLN one vial per nebulizer every 4-6 hours as needed ALBUTEROL SULFATE 0.083 % NEBU SOLN 642788 ALBUTEROL SULFATE Inactive TUSSIONEX PENNKINETIC ER 10-8 MG/5ML LQCR 5ml po q12hr PRN Cough TUSSIONEX PENNKINETIC ER 10-8 MG/5ML LQCR HYDROCOD POLST- CHLORPHEN POLST Inactive FLONASE ALLERGY RELIEF 50 MCG/ACT NASAL SUSP spray twice in each nostril one time daily FLONASE ALLERGY RELIEF 50 MCG/ACT NASAL SUSP 1198302 FLUTICASONE PROPIONATE Inactive BENZONATATE 200 MG ORAL CAPS One capsule tid. BENZONATATE 200 MG ORAL CAPS 975624 BENZONATATE Inactive CEPHALEXIN 500 MG ORAL CAPS Take one four times a day CEPHALEXIN 500 MG ORAL CAPS 241114 CEPHALEXIN Inactive TUSSIONEX PENNKINETIC ER 10-8 MG/5ML LQCR 5ml po q12hr PRN Cough TUSSIONEX PENNKINETIC ER 10-8 MG/5ML LQCR HYDROCOD POLST- CHLORPHEN POLST Inactive ZITHROMAX Z-CAROLYN 250 MG TABS 2x1day,1b5aidc ZITHROMAX Z-CAROLYN 250 MG TABS 0575911 AZITHROMYCIN Inactive ZITHROMAX 250 MG TAB 2 po today, then 1 po q days 2-5 ZITHROMAX 250 MG TAB 6176745 AZITHROMYCIN Inactive VITAMIN D3 70317 UNIT CAPS 1 pill by mouth weekly, for vitamin D deficiency VITAMIN D3 31152 UNIT CAPS CHOLECALCIFEROL Inactive DOXYCYCLINE HYCLATE 100 MG CAP 1 cap by mouth twice daily DOXYCYCLINE HYCLATE 100 MG CAP 2946314 DOXYCYCLINE HYCLATE Inactive MEDROL (CAROLYN) 4 MG TABS 6 tabs on day 1, 5 tabs on day 2, 4 tabs on day 3, 3 tabs on day 4, 2 tabs on day 5, 1 tab on day 6 MEDROL ( CAROLYN) 4 MG TABS 644637 METHYLPREDNISOLONE Inactive KEFLEX 500 MG CAP 1 po qid KEFLEX 500 MG CAP 259610 CEPHALEXIN Inactive MEDROL (CAROLYN) 4 MG TABS 6 tabs on day 1, 5 tabs on day 2, 4 tabs on day 3, 3 tabs on day 4, 2 tabs on day 5, 1 tab on day 6 MEDROL ( CAROLYN) 4 MG TABS 894601 METHYLPREDNISOLONE Inactive Vital Signs Date Name Value [...] 4.0 mmol/L 3.5-5.2 sodium, serum 142 mmol/L 446-588 2640/11/11 potassium, serum 4.2 mmol/L 3.5-5.2 chloride, serum 106 mmol/L 98-107 carbon dioxide, venous blood 29.1 mmol/L 21.0-32.0 blood glucose 95 mg/dL 65-110 calcium, serum 8.6 mg/dL 8.5-10.1 urea nitrogen, blood 23 mg/dL 7-18 creatinine, serum 0.83 mg/dL 0.55-1.30 sodium, serum 141 mmol/L 136-145 Lab Report: Lipid Panel, Thyroid Stimulating Hormone (L) - Chemistry cholesterol, serum 177 mg/dL [phone]/10/31 triglyceride, serum, fasting 64 mg/dL 30-200 HDL cholesterol, serum 77 mg/dL 32-96 LDL cholesterol, serum 87 mg/dL 0-130 TSH 2.13 m[iU]/mL 0.36-3.74 Lab Report: VITAMIN D, 25-HYDROXY/97528 - Chemistry vitamin D 25-hydroxy, serum 25 ng/mL 30-100 Encounters Code Encounter Date Provider Facility CPT-80049 Level 3 Est. Patient 16:07:34 CDT Marta Viramontes [facility] [place] CPT-78299 Level 3 Est. Patient 15:39:01 CDT Marta Viramontes [facility] [place] CPT-61048 Level 4 Est. Patient 17:31:07 CDT Marta Viramontes [facility] [place] CPT-90263 Level 3 Est. Patient 05:11:40 CDT Rikki GRANADOS [facility] CPT-65825 Level 2 Est. Patient 14:30:43 AUDIT CONSULTANT Marta Viramontes [facility] CPT-43170 Level 4 Est. Patient 09:14:36 AUDIT CONSULTANT Rikki GRANADOS [facility] CPT-54855 Level 2 Est. Patient 09:07:32 CDT Marta Viramontes [facility] CPT-66616 Level 4 Est. Patient 11:55:00 CDT Rikki GRANADOS [facility] CPT-05886 Level 3 Est. Patient 13:25:16 CDT Jennifer Chun MD [facility] CPT-24677 Level 3 Est. Patient 17:31:22 CDT Solomon Alamo MD [facility] CPT-26427 Level 3 Est. Patient 08:02:14 CDT Solomon Alamo MD [facility] CPT-51364 Level 3 Est. Patient 17:23:53 CDT Rikki GRANADOS [facility] CPT-54399 Level 3 Est. Patient 11:22:41 CDT Darryn Hearn [facility] Procedures Code Procedure Name Date Entry Date Standard Description CPT-38573 Venipuncture Draw Fee 12:43:48 AUDIT CONSULTANT CPT-57958 BMP - LAB USE ONLY 10:32:33 AUDIT CONSULTANT CPT-31043 Venipuncture Draw Fee 10:32:33 AUDIT CONSULTANT CPT-37308 Magnesium - LAB USE ONLY 09:54:30 CDT CPT-75505 TSH - LAB USE ONLY 09:54:30 CDT CPT-28524 Lipid - LAB USE ONLY 09:54:30 CDT CPT-23917 Venipuncture Draw Fee 09:54:29 CDT CPT-85600 Venipuncture Draw Fee 18:27:04 CDT CPT-08437 Chest 2V Frontal and Lat 10:57:00 AUDIT CONSULTANT CPT-35423 Venipuncture Draw Fee 10:56:59 AUDIT CONSULTANT CPT-31823 Venipuncture Draw Fee 09:22:28 AUDIT CONSULTANT CPT-71896 Chest 2V Frontal and Lat 09:22:27 AUDIT CONSULTANT CPT-I/D I/D Abscess 09:43:13 CDT CPT-99852 Venipuncture Draw Fee 08:16:46 AUDIT CONSULTANT CPT-03026 Venipuncture Draw Fee 08:18:55 AUDIT CONSULTANT CPT-02424 Venipuncture Draw Fee 08:31:18 AUDIT CONSULTANT CPT-31113 Venipuncture Draw Fee 11:42:52 AUDIT CONSULTANT CPT-44189 Venipuncture Draw Fee 13:26:37 AUDIT CONSULTANT CPT-20464 Venipuncture Draw Fee 09:23:38 AUDIT CONSULTANT CPT-000 Give Appropriate Tetanus Booster 10:23:50 CDT CPT-53420 Bone Density 08:28:45 CDT CPT-69726 Bone Density 11:35:15 CDT CPT-PV Prev. Care Visit 12:19:00 CDT CPT-85544 Venipuncture Draw Fee 15:02:58 CDT
--- OUTSIDE RECORDS SUMMARY | 2018-01-19 07:40 | XMS REPORT | Clinical Summary ---
Author Author Admin, E Organization [facility] [employer] Address Unknown Phone Unavailable Allergies, Adverse Reactions, Alerts Allergy Name Reaction Description Start Date Severity Status Provider SULFA facial swelling Critical Active Jocelyne Naff BOTTLE FILLER Conditions or Problems Problem Name Problem Code Onset Date Status Entry Date Provider Comment Standard Description Annotate G E R D 530.81 Active Jocelyne Naff BOTTLE FILLER Esophageal reflux FH COLON CANCER V16.0 Active Jocelyne Naff BOTTLE FILLER Family history of malignant neoplasm of gastrointestinal [...] NDC Status Provider Patient Instruction VITAMIN D3 41655 UNIT CAPS 1 qWeek x 4 months for vitamin D deficiency 04/09 CHOLECALCIFEROL 20263386787 Active Marta Viramontes APRN Active CEPHALEXIN 500 MG ORAL CAPS Take one four times a day CEPHALEXIN 58287466661 No Longer Active Marta Viramontes APRN Active BIOTIN 1000 MCG ORAL TABS Take one daily BIOTIN 79524247281 Active Rikki GRANADOS Active VITAMIN C 500 MG ORAL CAPS Take one daily ASCORBIC ACID 33238428950 Active Rikki Daryn PA Active BENZONATATE 200 MG ORAL CAPS One capsule tid. BENZONATATE 20159645828 No Longer Active Rikki Harms PA Active FLONASE ALLERGY RELIEF 50 MCG/ACT NASAL SUSP spray twice in each nostril one time daily FLUTICASONE PROPIONATE 51662388404 No Longer Active Rikki Harms PA Active TUSSIONEX PENNKINETIC ER 10-8 MG/5ML LQCR 5ml po q12hr PRN Cough HYDROCOD POLST-CHLORPHEN POLST 80722165566 No Longer Active Rikki Harms PA Active NIACIN ER 500 MG ORAL CR-TABS Take one twice daily NIACIN 42547167049 Active Rikki Daryn PA Active ALBUTEROL SULFATE 0.083 % NEBU SOLN one vial per nebulizer every 4-6 hours as needed ALBUTEROL SULFATE 47806444106 No Longer Active Rikki Harms PA Active MEDROL (CAROLYN) 4 MG TABS 6 tabs on day 1, 5 tabs on day 2, 4 tabs on day 3, 3 tabs on day 4, 2 tabs on day 5, 1 tab on day 6 METHYLPREDNISOLONE 07268976266 No Longer Active Rikki Harms PA Active LEVAQUIN 750 MG TABS 1 po qd x 7 days LEVOFLOXACIN 08990541842 No Longer Active Rikki Harms PA Active LEVAQUIN 500 MG ORAL TABS Take one tablet daily LEVOFLOXACIN 72941553605 No Longer Active Rikki Harms PA Active PROAIR HFA 108 (90 BASE) MCG/ACT AERS 2 puffs four times a day as needed 2014 ALBUTEROL SULFATE 24061646579 Active Marta Yokum [employer] CENTER RN Active LEVAQUIN 500 MG TAB 1 tablet by mouth daily LEVOFLOXACIN 16820093345 No Longer Active Marta Yokum CALL CENTER RN Active CHERATUSSIN AC 100-10 MG/5ML SYRP 1 tsp by mouth every 4 hours as needed for cough GUAIFENESIN-CODEINE 11928335326 No Longer Active Rikki Harms PA Active MUPIROCIN 2 % EXT OINT Use in each nostril in am and pm MUPIROCIN 64543706780 No Longer Active Rikki Harms PA Active DOXYCYCLINE HYCLATE 100 MG ORAL CAPS Take one bid DOXYCYCLINE HYCLATE 69160237037 No Longer Active Rikki Harms PA Active CLARITIN 10 MG TABS 1prn LORATADINE 84043060704 No Longer Active Jocelyne Naff BOTTLE FILLER Active ASPIRIN 81 MG TABS 1qd ASPIRIN 22850227094 No Longer Active Jocelyne Naff BOTTLE FILLER Active DOXYCYCLINE HYCLATE 100 MG CAP 1 cap by mouth twice daily DOXYCYCLINE HYCLATE 42069591912 No Longer Active Rikki Harms PA Active VITAMIN D3 26706 UNIT CAPS 1 pill by mouth weekly, for vitamin D deficiency CHOLECALCIFEROL 59961138619 No Longer Active Jennifer Chun MD PhD Active ANASTROZOLE 1 MG ORAL TABS Take one by mouth daily ANASTROZOLE 37270992489 Active Jennifer Chun MD PhD Active ZITHROMAX 250 MG TAB 2 po today, then 1 po q days 2-5 AZITHROMYCIN 61206613349 No Longer Active Rikki Harms PA Active MECLIZINE HCL 25 MG TABS 1 prn MECLIZINE HCL 77559609504 No Longer Active Solomon Alamo MD Active CHERATUSSIN AC SYRP prn as directed GUAIFENESIN- CODEINE SYRP 08715697819 No Longer Active Rikki Harms PA Active MULTIVITAMINS TABS 1qd MULTIPLE VITAMIN 19815979890 No Longer Active Rikki Harms PA Active OMEPRAZOLE 20 MG CPDR 1 PO Q D OMEPRAZOLE 70103572296 Active Rikki Harms PA Active ZITHROMAX Z-CAROLYN 250 MG TABS 2x1day,3h5zoju AZITHROMYCIN 71524826739 No Longer Active Jocelyne Naff BOTTLE FILLER Active MULTIVITAMINS TABS 1qd MULTIVITAMINS TABS MULTIPLE VITAMIN Inactive CHERATUSSIN AC SYRP prn as directed CHERATUSSIN AC SYRP GUAIFENESIN-CODEINE SYRP Inactive MECLIZINE HCL 25 MG TABS 1 prn MECLIZINE HCL 25 MG TABS 365328 MECLIZINE HCL Inactive ASPIRIN 81 MG TABS 1qd ASPIRIN 81 MG TABS ASPIRIN Inactive CLARITIN 10 MG TABS 1prn CLARITIN 10 MG TABS 255249 LORATADINE Inactive DOXYCYCLINE HYCLATE 100 MG ORAL CAPS Take one bid DOXYCYCLINE HYCLATE 100 MG ORAL CAPS 0859341 DOXYCYCLINE HYCLATE Inactive MUPIROCIN 2 % EXT OINT Use in each nostril in am and pm MUPIROCIN 2 % EXT OINT 511820 MUPIROCIN Inactive CHERATUSSIN AC 100-10 MG/5ML SYRP 1 tsp by mouth every 4 hours as needed for cough CHERATUSSIN AC 100-10 MG/5ML SYRP 549290 GUAIFENESIN-CODEINE Inactive LEVAQUIN 500 MG TAB 1 tablet by mouth daily LEVAQUIN 500 MG TAB 064843 LEVOFLOXACIN Inactive LEVAQUIN 500 MG ORAL TABS Take one tablet daily LEVAQUIN 500 MG ORAL TABS 556421 LEVOFLOXACIN Inactive LEVAQUIN 750 MG TABS 1 po qd x 7 days LEVAQUIN 750 MG TABS 968402 LEVOFLOXACIN Inactive ALBUTEROL SULFATE 0.083 % NEBU SOLN one vial per nebulizer every 4-6 hours as needed ALBUTEROL SULFATE 0.083 % NEBU SOLN 218965 ALBUTEROL SULFATE Inactive TUSSIONEX PENNKINETIC ER 10-8 MG/5ML LQCR 5ml po q12hr PRN Cough TUSSIONEX PENNKINETIC ER 10-8 MG/5ML LQCR HYDROCOD POLST- CHLORPHEN POLST Inactive FLONASE ALLERGY RELIEF 50 MCG/ACT NASAL SUSP spray twice in each nostril one time daily FLONASE ALLERGY RELIEF 50 MCG/ACT NASAL SUSP 3179197 FLUTICASONE PROPIONATE Inactive BENZONATATE 200 MG ORAL CAPS One capsule tid. BENZONATATE 200 MG ORAL CAPS 044364 BENZONATATE Inactive CEPHALEXIN 500 MG ORAL CAPS Take one four times a day CEPHALEXIN 500 MG ORAL CAPS 364517 CEPHALEXIN Inactive ZITHROMAX Z-CAROLYN 250 MG TABS 2x1day,3u1vxys ZITHROMAX Z-CAROLYN 250 MG TABS 2875427 AZITHROMYCIN Inactive ZITHROMAX 250 MG TAB 2 po today, then 1 po q days 2-5 ZITHROMAX 250 MG TAB 3392285 AZITHROMYCIN Inactive VITAMIN D3 77601 UNIT CAPS 1 pill by mouth weekly, for vitamin D deficiency VITAMIN D3 87871 UNIT CAPS CHOLECALCIFEROL Inactive DOXYCYCLINE HYCLATE 100 MG CAP 1 cap by mouth twice daily DOXYCYCLINE HYCLATE 100 MG CAP 8524637 DOXYCYCLINE HYCLATE Inactive MEDROL (CAROLYN) 4 MG TABS 6 tabs on day 1, 5 tabs on day 2, 4 tabs on day 3, 3 tabs on day 4, 2 tabs on day 5, 1 tab on day 6 MEDROL ( CAROLYN) 4 MG TABS 158677 METHYLPREDNISOLONE Inactive Vital Signs Date Name Value [...] Panel - Chemistry sodium, serum 142 mmol/L 253-384 7093/07/25 potassium, serum 4.0 mmol/L 3.5-5.2 chloride, serum [...] % 11.6-14.8 platelet count 269 10^3/MM^3 10*3/mm3 173-086 5946/12/16 leukocyte count, blood 3.2 10^3/MM^3 10*3/mm3 4.6-10.2 [...] % 11.6-14.8 platelet count 158 10^3/MM^3 10*3/mm3 284-791 0720/12/18 leukocyte count, blood 8.8 10^3/MM^3 10*3/mm3 4.6-10.2 [...] % 11.6-14.8 platelet count 207 10^3/MM^3 10*3/mm3 987-770 9974/12/23 leukocyte count, blood 6.2 10^3/MM^3 10*3/mm3 4.6-10.2 [...] % 11.6-14.8 platelet count 183 10^3/MM^3 10*3/mm3 188-532 0574/12/30 leukocyte count, blood 5.2 10^3/MM^3 10*3/mm3 4.6-10.2 [...] % 11.6-14.8 platelet count 200 10^3/MM^3 10*3/mm3 439-103 5701/11/11 leukocyte count, blood 2.0 10^3/MM^3 10*3/mm3 4.6-10.2 [...] % 11.6-14.8 platelet count 203 10^3/MM^3 10*3/mm3 831-551 5775/11/18 leukocyte count, blood 8.5 10^3/MM^3 10*3/mm3 4.6-10.2 [...] % 11.6-14.8 platelet count 143 10^3/MM^3 10*3/mm3 309-211 4195/11/25 leukocyte count, blood 2.1 10^3/MM^3 10*3/mm3 4.6-10.2 [...] % 11.6-14.8 platelet count 139 10^3/MM^3 10*3/mm3 474-330 7183/12/02 leukocyte count, blood 6.7 10^3/MM^3 10*3/mm3 4.6-10.2 [...] % 11.6-14.8 platelet count 258 10^3/MM^3 10*3/mm3 965-231 0284/12/09 leukocyte count, blood 5.3 10^3/MM^3 10*3/mm3 4.6-10.2 [...] Panel - Chemistry sodium, serum 138 mmol/L 603-654 5335/11/04 carbon dioxide, venous blood 27.7 mmol/L 21.0-32.0 potassium, serum 4.9 mmol/L 3.5-5.2 chloride, serum 104 mmol/L 98-107 blood glucose 92 mg/dL 65-110 urea nitrogen, blood 24 mg/dL 7-18 creatinine, serum 0.95 mg/dL 0.55-1.30 alanine aminotransferase (SGPT), serum 34 U/L aspartate aminotransferase (SGOT), serum 23 U/L 15-37 calcium, serum 8.9 mg/dL 8.5-10.1 bilirubin, serum, total 0.70 mg/dL 0.00-1.00 sodium, serum 140 mmol/L 552-407 2507/01/06 carbon dioxide, venous blood 27.2 mmol/L 21.0-32.0 potassium, serum 4.1 mmol/L 3.5-5.2 chloride, serum 105 mmol/L 98-107 blood glucose 70 mg/dL 65-110 urea nitrogen, blood 25 mg/dL 7-18 creatinine, serum 0.90 mg/dL 0.55-1.30 alanine aminotransferase (SGPT), serum 28 U/L -78 aspartate aminotransferase (SGOT), serum 20 U/L 15-37 calcium, serum 8.9 mg/dL 8.5-10.1 bilirubin, serum, total 0.40 mg/dL 0.00-1.00 sodium, serum 140 mmol/L 678-700 8180/01/13 carbon dioxide, venous blood 26.4 mmol/L 21.0-32.0 potassium, serum 4.2 mmol/L 3.5-5.2 chloride, serum 104 mmol/L 98-107 blood glucose 101 mg/dL 65-110 urea nitrogen, blood 18 mg/dL 7-18 creatinine, serum 0.80 mg/dL 0.55-1.30 alanine aminotransferase (SGPT), serum 28 U/L -78 aspartate aminotransferase (SGOT), serum 24 U/L 15-37 calcium, serum 8.7 mg/dL 8.5-10.1 bilirubin, serum, total 0.50 mg/dL 0.00-1.00 sodium, serum 142 mmol/L 293-625 3550/02/04 carbon dioxide, venous blood 24.9 mmol/L 21.0-32.0 [...] % 11.6-14.8 platelet count 297 10^3/MM^3 10*3/mm3 495-814 4546/02/04 leukocyte count, blood 4.2 10^3/MM^3 10*3/mm3 4.6-10.2 [...] % 11.6-14.8 platelet count 271 10^3/MM^3 10*3/mm3 961-165 6562/01/13 leukocyte count, blood 5.2 10^3/MM^3 10*3/mm3 4.6-10.2 [...] % 11.6-14.8 platelet count 289 10^3/MM^3 10*3/mm3 422-653 9661/11/04 leukocyte count, blood 3.8 10^3/MM^3 10*3/mm3 4.6-10.2 [...] Panel - Chemistry sodium, serum 141 mmol/L 651-785 7852/11/11 carbon dioxide, venous blood 26.8 mmol/L 21.0-32.0 potassium, serum 4.2 mmol/L 3.5-5.2 chloride, serum 106 mmol/L 98-107 blood glucose 95 mg/dL 65-110 urea nitrogen, blood 18 mg/dL 7-18 creatinine, serum 0.70 mg/dL 0.55-1.30 alanine aminotransferase (SGPT), serum 33 U/L - aspartate aminotransferase (SGOT), serum 22 U/L 15-37 calcium, serum 8.5 mg/dL 8.5-10.1 bilirubin, serum, total 0.30 mg/dL 0.00-1.00 sodium, serum 141 mmol/L 299-133 2410/11/18 carbon dioxide, venous blood 26.2 mmol/L 21.0-32.0 potassium, serum 4.4 mmol/L 3.5-5.2 chloride, serum 106 mmol/L 98-107 blood glucose 102 mg/dL 65-110 urea nitrogen, blood 24 mg/dL 7-18 creatinine, serum 0.77 mg/dL 0.55-1.30 alanine aminotransferase (SGPT), serum 30 U/L -78 aspartate aminotransferase (SGOT), serum 15 U/L 15-37 calcium, serum 8.3 mg/dL 8.5-10.1 bilirubin, serum, total 0.30 mg/dL 0.00-1.00 sodium, serum 139 mmol/L 008-525 7703/11/25 carbon dioxide, venous blood 27.9 mmol/L 21.0-32.0 potassium, serum 4.7 mmol/L 3.5-5.2 chloride, serum 105 mmol/L 98-107 blood glucose 94 mg/dL 65-110 urea nitrogen, blood 21 mg/dL 7-18 creatinine, serum 0.79 mg/dL 0.55-1.30 alanine aminotransferase (SGPT), serum 40 U/L -78 aspartate aminotransferase (SGOT), serum 22 U/L 15-37 calcium, serum 8.5 mg/dL 8.5-10.1 bilirubin, serum, total 0.80 mg/dL 0.00-1.00 sodium, serum 142 mmol/L 088-193 1463/12/09 carbon dioxide, venous blood 28.5 mmol/L 21.0-32.0 potassium, serum 5.0 mmol/L 3.5-5.2 chloride, serum 109 mmol/L 98-107 blood glucose 91 mg/dL 65-110 urea nitrogen, blood 27 mg/dL 7-18 creatinine, serum 0.88 mg/dL 0.55-1.30 alanine aminotransferase (SGPT), serum 31 U/L -78 aspartate aminotransferase (SGOT), serum 18 U/L 15-37 calcium, serum 8.9 mg/dL 8.5-10.1 bilirubin, serum, total 0.40 mg/dL 0.00-1.00 sodium, serum 140 mmol/L 326-327 7150/12/16 carbon dioxide, venous blood 25.4 mmol/L 21.0-32.0 potassium, serum 4.1 mmol/L 3.5-5.2 chloride, serum 104 mmol/L 98-107 blood glucose 110 mg/dL 65-110 urea nitrogen, blood 24 mg/dL 7-18 creatinine, serum 0.87 mg/dL 0.55-1.30 alanine aminotransferase (SGPT), serum 35 U/L aspartate aminotransferase (SGOT), serum 21 U/L 15-37 calcium, serum 8.4 mg/dL 8.5-10.1 bilirubin, serum, total 0.50 mg/dL 0.00-1.00 sodium, serum 141 mmol/L 270-544 2720/12/02 carbon dioxide, venous blood 25.9 mmol/L 21.0-32.0 potassium, serum 4.7 mmol/L 3.5-5.2 chloride, serum 106 mmol/L 98-107 blood glucose 78 mg/dL 65-110 urea nitrogen, blood 24 mg/dL 7- creatinine, serum 0.75 mg/dL 0.55-1.30 alanine aminotransferase (SGPT), serum 31 U/L aspartate aminotransferase (SGOT), serum 20 U/L 15-37 calcium, serum 8.7 mg/dL 8.5-10.1 bilirubin, serum, total 0.30 mg/dL 0.00-1.00 sodium, serum 139 mmol/L 585-634 4325/12/30 carbon dioxide, venous blood 28.2 mmol/L 21.0-32.0 potassium, serum 3.9 mmol/L 3.5-5.2 chloride, serum 105 mmol/L 98-107 blood glucose 91 mg/dL 65-110 urea nitrogen, blood 17 mg/dL 7-18 creatinine, serum 0.81 mg/dL 0.55-1.30 alanine aminotransferase (SGPT), serum 29 U/L aspartate aminotransferase (SGOT), serum 22 U/L -37 calcium, serum 8.8 mg/dL 8.5-10.1 bilirubin, serum, total 0.50 mg/dL 0.00-1.00 sodium, serum 143 mmol/L 426-435 1526/12/23 carbon dioxide, venous blood 24.6 mmol/L 21.0-32.0 [...] (L) - Chemistry cholesterol, serum 177 mg/dL 386-276 3691/10/31 triglyceride, serum, fasting 64 mg/dL 30-200 HDL cholesterol, serum 77 mg/dL 32-96 LDL cholesterol, serum 87 mg/dL 0-130 TSH 2.13 m[iU]/mL 0.36-3.74 Lab Report: VITAMIN D, 25-HYDROXY/00306 - Chemistry vitamin D 25-hydroxy, serum 25 ng/mL 30-100 Encounters Code Encounter Date Provider Facility CPT-12930 Level 4 Est. Patient 17:31:07 CDT Marta Viramontes [facility] CPT-47108 Level 3 Est. Patient 05:11:40 CDT Rikki GRANADOS [facility] CPT-36567 Level 2 Est. Patient 14:30:43 LOCKSTITCHER Marta Viramontes [facility] CPT-22481 Level 4 Est. Patient 09:14:36 LOCKSTITCHER Rikki GRANADOS [facility] CPT-83914 Level 2 Est. Patient 09:07:32 CDT Marta Viramontes CORONA [facility] CPT-81627 Level 4 Est. Patient 11:55:00 CDT Rikki GRANADOS [facility] CPT-80102 Level 3 Est. Patient 13:25:16 CDT Jennifer Chun MD PhD [facility] CPT-68638 Level 3 Est. Patient 17:31:22 CDT Solomon Alamo MD [facility] CPT-87709 Level 3 Est. Patient 08:02:14 CDT Solomon Alamo MD [facility] CPT-91641 Level 3 Est. Patient 17:23:53 CDT Rikki Stearns [facility] CPT-17476 Level 3 Est. Patient 11:22:41 CDT Darryn Hearn [facility] Procedures Code Procedure Name Date Entry Date Standard Description CPT-70013 Magnesium - LAB USE ONLY 09:54:30 CDT CPT-58318 TSH - LAB USE ONLY 09:54:30 CDT CPT-54706 Lipid - LAB USE ONLY 09:54:30 CDT CPT-07576 Venipuncture Draw Fee 09:54:29 CDT CPT-53128 Venipuncture Draw Fee 18:27:04 CDT CPT-34172 Chest 2V Frontal and Lat 10:57:00 LOCKSTITCHER CPT-18803 Venipuncture Draw Fee 10:56:59 LOCKSTITCHER CPT-40820 Venipuncture Draw Fee 09:22:28 LOCKSTITCHER CPT-55193 Chest 2V Frontal and Lat 09:22:27 LOCKSTITCHER CPT-I/D I/D Abscess 09:43:13 CDT CPT-79715 Venipuncture Draw Fee 08:16:46 LOCKSTITCHER CPT-63177 Venipuncture Draw Fee 08:18:55 LOCKSTITCHER CPT-50350 Venipuncture Draw Fee 08:31:18 LOCKSTITCHER CPT-86379 Venipuncture Draw Fee 11:42:52 LOCKSTITCHER CPT-42102 Venipuncture Draw Fee 13:26:37 LOCKSTITCHER CPT-61652 Venipuncture Draw Fee 09:23:38 LOCKSTITCHER CPT-000 Give Appropriate Tetanus Booster 10:23:50 CDT CPT-89358 Bone Density 08:28:45 CDT CPT-36654 Bone Density 11:35:15 CDT CPT-PV Prev. Care Visit 12:19:00 CDT CPT-62526 Venipuncture Draw Fee 15:02:58 CDT
--- OUTSIDE RECORDS SUMMARY | 2018-01-19 07:42 | XMS REPORT | Clinical Summary ---
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 INSTRUMENTATION ENGINEER Conditions or Problems Problem Name Problem Code Onset Date Status Entry Date Provider Comment Standard Description Annotate G E R D 530.81 Active Jocelyne Naff INSTRUMENTATION ENGINEER Esophageal reflux FH COLON CANCER V16.0 Active Jocelyne Naff INSTRUMENTATION ENGINEER Family history of malignant neoplasm of [...] Take one four times a day CEPHALEXIN 42939146999 No Longer Active Marta Viramontes APRN Active BIOTIN 1000 MCG ORAL TABS Take one daily BIOTIN 22698649006 Active Rikki Daryn PA Active VITAMIN C 500 MG ORAL CAPS Take one daily ASCORBIC ACID 90276231408 Active Rikki Daryn PA Active BENZONATATE 200 MG ORAL CAPS One capsule tid. BENZONATATE 42286931317 No Longer Active Rikki Harms PA Active FLONASE ALLERGY RELIEF 50 MCG/ACT NASAL SUSP spray twice in each nostril one time daily FLUTICASONE PROPIONATE 24158282929 No Longer Active Rikki Harms PA Active TUSSIONEX PENNKINETIC ER 10-8 MG/5ML LQCR 5ml po q12hr PRN Cough HYDROCOD POLST-CHLORPHEN POLST 54106210530 No Longer Active Rikki Harms PA Active NIACIN ER 500 MG ORAL CR-TABS Take one twice daily NIACIN 63870406553 Active Rikki Harms PA Active ALBUTEROL SULFATE 0.083 % NEBU SOLN one vial per nebulizer every 4-6 hours as needed ALBUTEROL SULFATE 04513700172 No Longer Active Rikki Harms DARWIN Active MEDROL (CAROLYN) 4 MG TABS 6 tabs on day 1, 5 tabs on day 2, 4 tabs on day 3, 3 tabs on day 4, 2 tabs on day 5, 1 tab on day 6 METHYLPREDNISOLONE 47496447940 No Longer Active Rikki Harms PA Active LEVAQUIN 750 MG TABS 1 po qd x 7 days LEVOFLOXACIN 04726677445 No Longer Active Rikki Harms PA Active LEVAQUIN 500 MG ORAL TABS Take one tablet daily LEVOFLOXACIN 11727314653 No Longer Active Rikki Harms PA Active PROAIR HFA 108 (90 BASE) MCG/ACT AERS 2 puffs four times a day as needed 2014 ALBUTEROL SULFATE 98910808447 Active Marta Yokum BOAT DECKHAND Active LEVAQUIN 500 MG TAB 1 tablet by mouth daily LEVOFLOXACIN 79991210966 No Longer Active Marta Yokum BOAT DECKHAND Active CHERATUSSIN AC 100-10 MG/5ML SYRP 1 tsp by mouth every 4 hours as needed for cough GUAIFENESIN-CODEINE 55672318524 No Longer Active Rikki Harms PA Active MUPIROCIN 2 % EXT OINT Use in each nostril in am and pm MUPIROCIN 86229018388 No Longer Active Rikki Harms PA Active DOXYCYCLINE HYCLATE 100 MG ORAL CAPS Take one bid DOXYCYCLINE HYCLATE 95611522475 No Longer Active Rikki Harms PA Active CLARITIN 10 MG TABS 1prn LORATADINE 65194032771 No Longer Active Jocelyne Naff INSTRUMENTATION ENGINEER Active ASPIRIN 81 MG TABS 1qd ASPIRIN 80957097929 No Longer Active Jocelyne Naff INSTRUMENTATION ENGINEER Active DOXYCYCLINE HYCLATE 100 MG CAP 1 cap by mouth twice daily DOXYCYCLINE HYCLATE 23476961914 No Longer Active Rikki Harms PA Active VITAMIN D3 88683 UNIT CAPS 1 pill by mouth weekly, for vitamin D deficiency CHOLECALCIFEROL 65385815357 No Longer Active Jennifer Chun MD PhD Active ANASTROZOLE 1 MG ORAL TABS Take one by mouth daily ANASTROZOLE 02076195013 Active Jennifer Chun MD PhD Active ZITHROMAX 250 MG TAB 2 po today, then 1 po q days 2-5 AZITHROMYCIN 47534623180 No Longer Active Rikki Harms PA Active MECLIZINE HCL 25 MG TABS 1 prn MECLIZINE HCL 09016913937 No Longer Active Solomon Alamo MD Active CHERATUSSIN AC SYRP prn as directed GUAIFENESIN- CODEINE SYRP 08219474090 No Longer Active Rikki Harms PA Active MULTIVITAMINS TABS 1qd MULTIPLE VITAMIN 14865745725 No Longer Active Rikki Harms PA Active OMEPRAZOLE 20 MG CPDR 1 PO Q D OMEPRAZOLE 93803452883 Active Rikki Harms PA Active ZITHROMAX Z-CAROLYN 250 MG TABS 2x1day,8v9tubp AZITHROMYCIN 05906255392 No Longer Active Jocelyne Lovell INSTRUMENTATION ENGINEER Active MULTIVITAMINS TABS 1qd MULTIVITAMINS TABS MULTIPLE VITAMIN Inactive CHERATUSSIN AC SYRP prn as directed CHERATUSSIN AC SYRP GUAIFENESIN-CODEINE SYRP Inactive MECLIZINE HCL 25 MG TABS 1 prn MECLIZINE HCL 25 MG TABS 113754 MECLIZINE HCL Inactive ASPIRIN 81 MG TABS 1qd ASPIRIN 81 MG TABS ASPIRIN Inactive CLARITIN 10 MG TABS 1prn CLARITIN 10 MG TABS 955638 LORATADINE Inactive DOXYCYCLINE HYCLATE 100 MG ORAL CAPS Take one bid DOXYCYCLINE HYCLATE 100 MG ORAL CAPS 2610592 DOXYCYCLINE HYCLATE Inactive MUPIROCIN 2 % EXT OINT Use in each nostril in am and pm MUPIROCIN 2 % EXT OINT 568673 MUPIROCIN Inactive CHERATUSSIN AC 100-10 MG/5ML SYRP 1 tsp by mouth every 4 hours as needed for cough CHERATUSSIN AC 100-10 MG/5ML SYRP 833364 GUAIFENESIN-CODEINE Inactive LEVAQUIN 500 MG TAB 1 tablet by mouth daily LEVAQUIN 500 MG TAB 150489 LEVOFLOXACIN Inactive LEVAQUIN 500 MG ORAL TABS Take one tablet daily LEVAQUIN 500 MG ORAL TABS 206485 LEVOFLOXACIN Inactive LEVAQUIN 750 MG TABS 1 po qd x 7 days LEVAQUIN 750 MG TABS 457205 LEVOFLOXACIN Inactive ALBUTEROL SULFATE 0.083 % NEBU SOLN one vial per nebulizer every 4-6 hours as needed ALBUTEROL SULFATE 0.083 % NEBU SOLN 997440 ALBUTEROL SULFATE Inactive TUSSIONEX PENNKINETIC ER 10-8 MG/5ML LQCR 5ml po q12hr PRN Cough TUSSIONEX PENNKINETIC ER 10-8 MG/5ML LQCR HYDROCOD POLST- CHLORPHEN POLST Inactive FLONASE ALLERGY RELIEF 50 MCG/ACT NASAL SUSP spray twice in each nostril one time daily FLONASE ALLERGY RELIEF 50 MCG/ACT NASAL SUSP 6824402 FLUTICASONE PROPIONATE Inactive BENZONATATE 200 MG ORAL CAPS One capsule tid. BENZONATATE 200 MG ORAL CAPS 548554 BENZONATATE Inactive CEPHALEXIN 500 MG ORAL CAPS Take one four times a day CEPHALEXIN 500 MG ORAL CAPS 104586 CEPHALEXIN Inactive ZITHROMAX Z-CAROLYN 250 MG TABS 2x1day,8y2umsu ZITHROMAX Z-CAROLYN 250 MG TABS 5466711 AZITHROMYCIN Inactive ZITHROMAX 250 MG TAB 2 po today, then 1 po q days 2-5 ZITHROMAX 250 MG TAB 5037657 AZITHROMYCIN Inactive VITAMIN D3 99855 UNIT CAPS 1 pill by mouth weekly, for vitamin D deficiency VITAMIN D3 13479 UNIT CAPS CHOLECALCIFEROL Inactive DOXYCYCLINE HYCLATE 100 MG CAP 1 cap by mouth twice daily DOXYCYCLINE HYCLATE 100 MG CAP 9932439 DOXYCYCLINE HYCLATE Inactive MEDROL (CAROLYN) 4 MG TABS 6 tabs on day 1, 5 tabs on day 2, 4 tabs on day 3, 3 tabs on day 4, 2 tabs on day 5, 1 tab on day 6 MEDROL ( CAROLYN) 4 MG TABS 044243 METHYLPREDNISOLONE Inactive Vital Signs Date Name Value [...] Panel - Chemistry sodium, serum 142 mmol/L 219-206 7357/07/25 potassium, serum 4.0 mmol/L 3.5-5.2 chloride, serum [...] % 11.6-14.8 platelet count 269 10^3/MM^3 10*3/mm3 227-049 7488/12/30 leukocyte count, blood 5.2 10^3/MM^3 10*3/mm3 4.6-10.2 neutrophils as percent of blood leukocytes 70.2 % 42.2-75.2 monocytes as percent of blood leukocytes 9.2 % 1.7-9.3 neutrophils as percent of blood leukocytes 37.0 % 42.2-75.2 monocytes as percent of blood leukocytes 32.3 % 1.7-9.3 lymphocytes as percent of blood leukocytes 21.3 % 20.5-51.1 erythrocyte (RBC) count 3.76 10^6/MM^3 10*6/mm3 4.04-5.48 hemoglobin, blood 11.6 g/dL 12.0-16.0 lymphocytes as percent of blood leukocytes 15.8 % 20.5-51.1 erythrocyte (RBC) count 3.57 10^6/MM^3 10*6/mm3 4.04-5.48 hemoglobin, blood 11.4 g/dL 12.0-16.0 hematocrit, blood 33.6 % 36.0-46.0 mean corpuscular volume, RBC 94 fL 80-97 mean corpuscular hemoglobin, RBC 31.8 pg 27.0-31.2 mean corpuscular hemoglobin concentration, RBC 33.8 G/DL % 31.8- 35.4 red blood cell distribution width 16.8 % 11.6-14.8 platelet count 200 10^3/MM^3 10*3/mm3 235-897 9840/11/18 leukocyte count, blood 8.5 10^3/MM^3 10*3/mm3 4.6-10.2 [...] % 11.6-14.8 platelet count 143 10^3/MM^3 10*3/mm3 235-373 8709/11/11 leukocyte count, blood 2.0 10^3/MM^3 10*3/mm3 4.6-10.2 [...] % 11.6-14.8 platelet count 203 10^3/MM^3 10*3/mm3 136-395 1510/11/25 leukocyte count, blood 2.1 10^3/MM^3 10*3/mm3 4.6-10.2 hematocrit, blood 37.1 % 36.0-46.0 mean corpuscular volume, RBC 90 fL 80-97 mean corpuscular hemoglobin, RBC 30.8 pg 27.0-31.2 mean corpuscular hemoglobin concentration, RBC 34.1 G/DL % 31.8- 35.4 red blood cell distribution width 14.6 % 11.6-14.8 platelet count 139 10^3/MM^3 10*3/mm3 684-266 9961/12/02 leukocyte count, blood 6.7 10^3/MM^3 10*3/mm3 4.6-10.2 [...] % 11.6-14.8 platelet count 258 10^3/MM^3 10*3/mm3 555-049 0522/11/25 neutrophils as percent of blood leukocytes 20.0 % 42.2-75.2 monocytes as percent of blood leukocytes 20.9 % 1.7-9.3 lymphocytes as percent of blood leukocytes 42.9 % 20.5-51.1 erythrocyte (RBC) count 4.11 10^6/MM^3 10*6/mm3 4.04-5.48 hemoglobin, blood 12.6 g/dL 12.0-16.0 leukocyte count, blood 5.3 10^3/MM^3 10*3/mm3 4.6-10.2 hematocrit, blood 35.3 % 36.0-46.0 mean corpuscular volume, RBC 93 fL 80-97 mean corpuscular hemoglobin, RBC 31.3 pg 27.0-31.2 mean corpuscular hemoglobin concentration, RBC 33.7 G/DL % 31.8- 35.4 red blood cell distribution width 15.6 % 11.6-14.8 platelet count 240 10^3/MM^3 10*3/mm3 801-586 5775/12/09 neutrophils as percent of blood leukocytes 67.9 [...] % 11.6-14.8 platelet count 158 10^3/MM^3 10*3/mm3 681-607 0871/12/18 leukocyte count, blood 8.8 10^3/MM^3 10*3/mm3 4.6-10.2 hematocrit, blood 35.0 % 36.0-46.0 mean corpuscular volume, RBC 93 fL 80-97 mean corpuscular hemoglobin, RBC 30.9 pg 27.0-31.2 mean corpuscular hemoglobin concentration, RBC 33.3 G/DL % 31.8- 35.4 red blood cell distribution width 15.9 % 11.6-14.8 platelet count 207 10^3/MM^3 10*3/mm3 041-772 9243/12/23 leukocyte count, blood 6.2 10^3/MM^3 10*3/mm3 4.6-10.2 [...] Panel - Chemistry sodium, serum 138 mmol/L 982-919 8789/11/04 carbon dioxide, venous blood 27.7 mmol/L 21.0-32.0 potassium, serum 4.9 mmol/L 3.5-5.2 chloride, serum 104 mmol/L 98-107 blood glucose 92 mg/dL 65-110 urea nitrogen, blood 24 mg/dL 7-18 creatinine, serum 0.95 mg/dL 0.55-1.30 alanine aminotransferase (SGPT), serum 34 U/L -78 aspartate aminotransferase (SGOT), serum 23 U/L 15-37 calcium, serum 8.9 mg/dL 8.5-10.1 bilirubin, serum, total 0.70 mg/dL 0.00-1.00 sodium, serum 140 mmol/L 629-774 5756/01/06 carbon dioxide, venous blood 27.2 mmol/L 21.0-32.0 potassium, serum 4.1 mmol/L 3.5-5.2 chloride, serum 105 mmol/L 98-107 blood glucose 70 mg/dL 65-110 urea nitrogen, blood 25 mg/dL 7-18 creatinine, serum 0.90 mg/dL 0.55-1.30 alanine aminotransferase (SGPT), serum 28 U/L -78 aspartate aminotransferase (SGOT), serum 20 U/L 15-37 calcium, serum 8.9 mg/dL 8.5-10.1 bilirubin, serum, total 0.40 mg/dL 0.00-1.00 sodium, serum 140 mmol/L 330-040 4114/01/13 carbon dioxide, venous blood 26.4 mmol/L 21.0-32.0 potassium, serum 4.2 mmol/L 3.5-5.2 chloride, serum 104 mmol/L 98-107 blood glucose 101 mg/dL 65-110 urea nitrogen, blood 18 mg/dL 7-18 creatinine, serum 0.80 mg/dL 0.55-1.30 alanine aminotransferase (SGPT), serum 28 U/L 12-78 aspartate aminotransferase (SGOT), serum 24 U/L 15-37 calcium, serum 8.7 mg/dL 8.5-10.1 bilirubin, serum, total 0.50 mg/dL 0.00-1.00 sodium, serum 142 mmol/L 946-403 5076/02/04 carbon dioxide, venous blood 24.9 mmol/L 21.0-32.0 [...] CBC W/DIFF, Comp. Metabolic Panel - Hematology hemoglobin, blood 13.8 g/dL 12.0-16.0 hematocrit, blood 41.4 % 36.0-46.0 mean corpuscular volume, RBC 90 fL 80-97 mean corpuscular hemoglobin, RBC 30.0 pg 27.0-31.2 mean corpuscular hemoglobin concentration, RBC 33.4 G/DL % 31.8- 35.4 red blood cell distribution width 14.4 % 11.6-14.8 platelet count 216 10^3/MM^3 10*3/mm3 274-659 1867/02/04 leukocyte count, blood 4.2 10^3/MM^3 10*3/mm3 4.6-10.2 [...] % 11.6-14.8 platelet count 271 10^3/MM^3 10*3/mm3 302-429 6737/01/13 leukocyte count, blood 5.2 10^3/MM^3 10*3/mm3 4.6-10.2 [...] % 11.6-14.8 platelet count 289 10^3/MM^3 10*3/mm3 045-210 6262/11/04 erythrocyte (RBC) count 4.61 10^6/MM^3 10*6/mm3 4.04-5.48 lymphocytes as percent of blood leukocytes 21.3 % 20.5-51.1 monocytes as percent of blood leukocytes 0.8 % 1.7-9.3 neutrophils as percent of blood leukocytes 71.6 % 42.2-75.2 leukocyte count, blood 3.8 10^3/MM^3 10*3/mm3 4.6-10.2 leukocyte count, blood 4.1 10^3/MM^3 10*3/mm3 4.6-10.2 [...] Lab Report: Comp. Metabolic Panel - Chemistry chloride, serum 106 mmol/L 98-107 blood glucose 95 mg/dL 65-110 urea nitrogen, blood 18 mg/dL 7-18 creatinine, serum 0.70 mg/dL 0.55-1.30 alanine aminotransferase (SGPT), serum 33 U/L 12-78 aspartate aminotransferase (SGOT), serum 22 U/L 15-37 calcium, serum 8.5 mg/dL 8.5-10.1 bilirubin, serum, total 0.30 mg/dL 0.00-1.00 sodium, serum 139 mmol/L 905-822 2683/12/30 carbon dioxide, venous blood 28.2 mmol/L 21.0-32.0 potassium, serum 3.9 mmol/L 3.5-5.2 chloride, serum 105 mmol/L 98-107 blood glucose 91 mg/dL 65-110 urea nitrogen, blood 17 mg/dL 7-18 creatinine, serum 0.81 mg/dL 0.55-1.30 alanine aminotransferase (SGPT), serum 29 U/L -78 aspartate aminotransferase (SGOT), serum 22 U/L 15-37 calcium, serum 8.8 mg/dL 8.5-10.1 bilirubin, serum, total 0.50 mg/dL 0.00-1.00 sodium, serum 141 mmol/L 241-613 0942/11/11 carbon dioxide, venous blood 26.8 mmol/L 21.0-32.0 potassium, serum 4.2 mmol/L 3.5-5.2 sodium, serum 141 mmol/L 681-749 9321/12/02 carbon dioxide, venous blood 25.9 mmol/L 21.0-32.0 potassium, serum 4.7 mmol/L 3.5-5.2 chloride, serum 106 mmol/L 98-107 blood glucose 78 mg/dL 65-110 urea nitrogen, blood 24 mg/dL 7-18 creatinine, serum 0.75 mg/dL 0.55-1.30 alanine aminotransferase (SGPT), serum 31 U/L - aspartate aminotransferase (SGOT), serum 20 U/L 15-37 calcium, serum 8.7 mg/dL 8.5-10.1 bilirubin, serum, total 0.30 mg/dL 0.00-1.00 sodium, serum 141 mmol/L 366-920 8454/11/18 carbon dioxide, venous blood 26.2 mmol/L 21.0-32.0 potassium, serum 4.4 mmol/L 3.5-5.2 chloride, serum 106 mmol/L 98-107 blood glucose 102 mg/dL 65-110 urea nitrogen, blood 24 mg/dL 7-18 creatinine, serum 0.77 mg/dL 0.55-1.30 alanine aminotransferase (SGPT), serum 30 U/L aspartate aminotransferase (SGOT), serum 15 U/L -37 calcium, serum 8.3 mg/dL 8.5-10.1 bilirubin, serum, total 0.30 mg/dL 0.00-1.00 urea nitrogen, blood 21 mg/dL 7-18 creatinine, serum 0.79 mg/dL 0.55-1.30 alanine aminotransferase (SGPT), serum 40 U/L aspartate aminotransferase (SGOT), serum 22 U/L 15-37 calcium, serum 8.5 mg/dL 8.5-10.1 bilirubin, serum, total 0.80 mg/dL 0.00-1.00 blood glucose 94 mg/dL 65-110 chloride, serum 105 mmol/L 98-107 potassium, serum 4.7 mmol/L 3.5-5.2 carbon dioxide, venous blood 27.9 mmol/L 21.0-32.0 sodium, serum 139 mmol/L 937-229 6801/12/23 sodium, serum 143 mmol/L 582-363 8707/12/23 carbon dioxide, venous blood 24.6 mmol/L 21.0-32.0 potassium, serum 4.1 mmol/L 3.5-5.2 chloride, serum 107 mmol/L 98-107 blood glucose 98 mg/dL 65-110 urea nitrogen, blood 22 mg/dL 7-18 creatinine, serum 0.77 mg/dL 0.55-1.30 alanine aminotransferase (SGPT), serum 28 U/L aspartate aminotransferase (SGOT), serum 20 U/L 15-37 calcium, serum 8.6 mg/dL 8.5-10.1 bilirubin, serum, total 0.30 mg/dL 0.00-1.00 carbon dioxide, venous blood 28.5 mmol/L 21.0-32.0 potassium, serum 5.0 mmol/L 3.5-5.2 chloride, serum 109 mmol/L 98-107 blood glucose 91 mg/dL 65-110 urea nitrogen, blood 27 mg/dL 7-18 sodium, serum 142 mmol/L 628-876 3568/12/09 creatinine, serum 0.88 mg/dL 0.55-1.30 alanine aminotransferase (SGPT), serum 31 U/L aspartate aminotransferase (SGOT), serum 18 U/L 15-37 calcium, serum 8.9 mg/dL 8.5-10.1 bilirubin, serum, total 0.40 mg/dL 0.00-1.00 sodium, serum 140 mmol/L 731-787 1381/12/16 carbon dioxide, venous blood 25.4 mmol/L 21.0-32.0 potassium, serum 4.1 mmol/L 3.5-5.2 chloride, serum 104 mmol/L 98-107 blood glucose 110 mg/dL 65-110 urea nitrogen, blood 24 mg/dL 7-18 creatinine, serum 0.87 mg/dL 0.55-1.30 alanine aminotransferase (SGPT), serum 35 U/L 12-78 aspartate aminotransferase (SGOT), serum 21 U/L 15-37 calcium, serum 8.4 mg/dL 8.5-10.1 bilirubin, serum, total 0.50 mg/dL 0.00-1.00 Encounters Code Encounter Date Provider Facility CPT-44991 Level 4 Est. Patient 17:31:07 CDT Marta Viramontes [facility] CPT-28511 Level 3 Est. Patient 05:11:40 CDT Rikki GRANADOS [facility] CPT-24677 Level 2 Est. 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 Patient 09:07:32 CDT Marta Viramontes [facility] CPT-21326 Level 4 Est. Patient 11:55:00 CDT Rikki GRANADOS [facility] CPT-87310 Level 3 Est. Patient 13:25:16 CDT Jennifer Chun MD PhD [facility] CPT-75435 Level 3 Est. Patient 17:31:22 CDT Solomon Alamo MD [facility]-78340 Level 3 Est. Patient 08:02:14 CDT Solomon Alamo MD [facility] CPT-59862 Level 3 Est. Patient 17:23:53 CDT Rikki Stearns [facility] CPT-12808 Level 3 Est. 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 FITNESS ASSISTANT 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 HEAD CPT-69603 Chest 2V Frontal and Lat 09:22:27 GROUP FITNESS ASSISTANT DEPARTMENT HEAD CPT-I/D I/D Abscess 09:43:13 CDT CPT-89681 Venipuncture Draw Fee 08:16:46 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 Care Visit 12:19:00 CDT CPT-90628 Venipuncture Draw Fee 15:02:58 CDT
--- OUTSIDE RECORDS SUMMARY | 2018-01-19 07:43 | XMS REPORT | Clinical Summary ---
Author Author Admin, E Organization [facility] Address Unknown Phone Unavailable Allergies, Adverse Reactions, Alerts Allergy Name Reaction Description Start Date Severity Status Provider SULFA facial swelling Critical Active Jocelyne Naff ECHOCARDIOGRAPHER Conditions or Problems Problem Name Problem Code Onset Date Status Entry Date Provider Comment Standard Description Annotate G E R D 530.81 Active Jocelyne Naff ECHOCARDIOGRAPHER Esophageal reflux FH COLON CANCER V16.0 Active Jocelyne Naff ECHOCARDIOGRAPHER Family history of malignant neoplasm of gastrointestinal [...] ORAL CAPS Take one bid DOXYCYCLINE HYCLATE 39207993689 Active Jocelyne Naff ECHOCARDIOGRAPHER Active DOXYCYCLINE HYCLATE 100 MG CAP 1 cap by mouth twice daily DOXYCYCLINE HYCLATE 47802194171 No Longer Active Rikki Daryn GRANADOS Active VITAMIN D3 87074 UNIT CAPS 1 pill by mouth weekly, for vitamin D deficiency CHOLECALCIFEROL 01700985277 Active Jennifer Chun MD PhD Active ANASTROZOLE 1 MG ORAL TABS Take one by mouth daily ANASTROZOLE 79482005404 Active Jennifer Chun MD PhD Active ZITHROMAX 250 MG TAB 2 po today, then 1 po q days 2-5 AZITHROMYCIN 22032932229 No Longer Active Rikki GRANADOS Active MECLIZINE HCL 25 MG TABS 1 prn MECLIZINE HCL 57361123272 No Longer Active Solomon Alamo MD Active CHERATUSSIN AC SYRP prn as directed GUAIFENESIN- CODEINE SYRP 65438962169 No Longer Active Rikki Daryn GRANADOS Active MULTIVITAMINS TABS 1qd MULTIPLE VITAMIN 32829360463 No Longer Active Rikki Daryn PA Active CLARITIN 10 MG TABS 1prn LORATADINE 90313375363 Active Jocelyne Naff ECHOCARDIOGRAPHER Active ASPIRIN 81 MG TABS 1qd ASPIRIN 20044241263 Active Jocelyne Naff ECHOCARDIOGRAPHER Active OMEPRAZOLE 20 MG CPDR 1 PO Q D OMEPRAZOLE 91829393479 Active Rikki Stearns PA Active ZITHROMAX Z-CAROLYN 250 MG TABS 2x1day,5m3bzio AZITHROMYCIN 48759247542 No Longer Active Jocelyne Lovell ECHOCARDIOGRAPHER Active MULTIVITAMINS TABS 1qd MULTIVITAMINS TABS MULTIPLE VITAMIN Inactive CHERATUSSIN AC SYRP prn as directed CHERATUSSIN AC SYRP GUAIFENESIN-CODEINE SYRP Inactive MECLIZINE HCL 25 MG TABS 1 prn MECLIZINE HCL 25 MG TABS 037866 MECLIZINE HCL Inactive ZITHROMAX Z-CAROLYN 250 MG TABS 2x1day,9h4ecsg ZITHROMAX Z-CAROLYN 250 MG TABS 1749975 AZITHROMYCIN Inactive ZITHROMAX 250 MG TAB 2 po today, then 1 po q days 2-5 ZITHROMAX 250 MG TAB 1732862 AZITHROMYCIN Inactive DOXYCYCLINE HYCLATE 100 MG CAP 1 cap by mouth twice daily DOXYCYCLINE HYCLATE 100 MG CAP 4950603 DOXYCYCLINE HYCLATE Inactive Vital Signs Date Name [...] % 11.6-14.8 platelet count 131 10^3/MM^3 10*3/mm3 695-092 2310/12/12 leukocyte count, blood 28.6 10^3/MM^3 10*3/mm3 4.6-10.2 [...] % 11.6-14.8 platelet count 237 10^3/MM^3 10*3/mm3 167-476 0616/12/10 erythrocyte (RBC) count 4.93 10^6/MM^3 10*6/mm3 4.04-5.48 [...] blood 14.8 g/dL 12.0-16.0 leukocyte count, blood 6.9 10^3/MM^3 10*3/mm3 4.6-10.2 [...] % 11.6-14.8 platelet count 360 10^3/MM^3 10*3/mm3 880-286 4403/12/31 leukocyte count, blood 5.3 10^3/MM^3 10*3/mm3 4.6-10.2 [...] % 11.6-14.8 platelet count 222 10^3/MM^3 10*3/mm3 882-692 8035/01/07 leukocyte count, blood 11.7 10^3/MM^3 10*3/mm3 4.6-10.2 [...] % 11.6-14.8 platelet count 191 10^3/MM^3 10*3/mm3 550-180 2499/01/20 leukocyte count, blood 9.8 10^3/MM^3 10*3/mm3 4.6-10.2 [...] % 11.6-14.8 platelet count 195 10^3/MM^3 10*3/mm3 349-294 5116/01/28 leukocyte count, blood 11.9 10^3/MM^3 10*3/mm3 4.6-10.2 [...] % 11.6-14.8 platelet count 278 10^3/MM^3 10*3/mm3 275-272 2933/02/04 leukocyte count, blood 8.5 10^3/MM^3 10*3/mm3 4.6-10.2 [...] % 11.6-14.8 platelet count 326 10^3/MM^3 10*3/mm3 356-738 8803/02/10 leukocyte count, blood 2.3 10^3/MM^3 10*3/mm3 4.6-10.2 [...] % 11.6-14.8 platelet count 240 10^3/MM^3 10*3/mm3 967-763 0939/02/17 leukocyte count, blood 3.4 10^3/MM^3 10*3/mm3 4.6-10.2 [...] % 11.6-14.8 platelet count 308 10^3/MM^3 10*3/mm3 077-167 1550/02/25 leukocyte count, blood 6.6 10^3/MM^3 10*3/mm3 4.6-10.2 [...] 0.20 mg/dL 0.00-1.00 sodium, serum 141 mmol/L 248-319 7981/01/14 potassium, serum 4.9 mmol/L 3.5-5.2 chloride, serum 107 mmol/L 98-107 carbon dioxide, venous blood 28.9 mmol/L 21.0-32.0 blood glucose 100 mg/dL 65-110 urea nitrogen, blood 19 mg/dL 7-18 creatinine, serum 0.90 mg/dL 0.60-1.30 alanine aminotransferase (SGPT), serum 28 U/L aspartate aminotransferase (SGOT), serum 24 U/L 15-37 calcium, serum 8.2 mg/dL 8.5-10.1 bilirubin, serum, total 0.40 mg/dL 0.00-1.00 sodium, serum 144 mmol/L 208-866 1248/12/16 potassium, serum 4.5 mmol/L 3.5-5.2 Lab Report: CBC W/DIFF, Comp. [...] % 11.6-14.8 platelet count 239 10^3/MM^3 10*3/mm3 816-168 0121/01/14 leukocyte count, blood 6.7 10^3/MM^3 10*3/mm3 4.6-10.2 [...] Panel - Chemistry sodium, serum 140 mmol/L 515-328 5323/07/13 potassium, serum 4.5 mmol/L 3.5-5.2 chloride, serum 106 mmol/L 98-107 carbon dioxide, venous blood 27.7 mmol/L 21.0-32.0 blood glucose 105 mg/dL 65-110 urea nitrogen, blood 14 mg/dL 7-18 creatinine, serum 0.90 mg/dL 0.60-1.30 alanine aminotransferase (SGPT), serum 29 U/L 12-78 aspartate aminotransferase (SGOT), serum 22 U/L 15-37 calcium, serum 9.4 mg/dL 8.5-10.1 bilirubin, serum, total 0.70 mg/dL 0.00-1.00 cholesterol, serum 160 mg/dL 610-027 6722/07/13 triglyceride, serum, fasting 63 mg/dL 30-200 HDL [...] Panel - Chemistry sodium, serum 141 mmol/L 421-355 4047/02/10 potassium, serum 5.2 mmol/L 3.5-5.2 chloride, serum 106 mmol/L 98-107 carbon dioxide, venous blood 27.8 mmol/L 21.0-32.0 blood glucose 111 mg/dL 65-110 urea nitrogen, blood 18 mg/dL 7-18 creatinine, serum 0.90 mg/dL 0.60-1.30 alanine aminotransferase (SGPT), serum 29 U/L 12-78 aspartate aminotransferase (SGOT), serum 21 U/L 15-37 calcium, serum 8.3 mg/dL 8.5-10.1 bilirubin, serum, total 0.40 mg/dL 0.00-1.00 Lab Report: VITAMIN D, 25-HYDROXY/31413 - Chemistry vitamin D 25-hydroxy, serum 24 ng/mL 30-100 Encounters Code Encounter Date Provider Facility CPT-84627 Level 3 Est. Patient 13:25:16 CDT Jennifer Chun MD PhD [facility] CPT-33233 Level 3 Est. Patient 17:31:22 CDT Solomon Alamo MD [facility] CPT-71569 Level 3 Est. Patient 08:02:14 CDT Solomon Alamo MD [facility] CPT-54173 Level 3 Est. Patient 17:23:53 CDT Rikki GRANADOS [facility] CPT-98747 Level 3 Est. Patient 11:22:41 CDT Darryn GRANADOS [facility] Procedures Code Procedure Name Date Entry Date Standard Description CPT-I/D I/D Abscess 09:43:13 CDT CPT-90655 Venipuncture Draw Fee 08:16:46 [facility] CPT-78698 Venipuncture Draw Fee 08:18:55 [facility] CPT-58006 Venipuncture Draw Fee 08:31:18 [facility] CPT-89906 Venipuncture Draw Fee 11:42:52 [facility] CPT-53056 Venipuncture Draw Fee 13:26:37 [facility] CPT-23422 Venipuncture Draw Fee 09:23:38 [facility] CPT-000 Give Appropriate Tetanus Booster 10:23:50 CDT CPT-82537 Bone Density 08:28:45 CDT CPT-93618 Bone Density 11:35:15 CDT CPT-PV Prev. Care Visit 12:19:00 CDT CPT-13728 Venipuncture Draw Fee 15:02:58 CDT
--- OUTSIDE RECORDS SUMMARY | 2018-01-19 07:43 | XMS REPORT | Clinical Summary ---
Author Author Admin, E Organization [facility] [employer] Address Unknown Phone Unavailable Allergies, Adverse Reactions, Alerts Allergy Name Reaction Description Start Date Severity Status Provider SULFA facial swelling Critical Active Jocelyne Naff CSR TECHNICIAN Conditions or Problems Problem Name Problem Code Onset Date Status Entry Date Provider Comment Standard Description Annotate G E R D 530.81 Active Jocelyne Naff CSR TECHNICIAN Esophageal reflux FH COLON CANCER V16.0 Active Jocelyne Naff CSR TECHNICIAN Family history of malignant neoplasm of [...] Ingrown toenail, left 703.0 Resolved Marta Yokum [employer] Ingrowing nail cellulitis, finger, right 681.00 Active Marta Yokum [employer] Cellulitis and abscess of finger, unspecified Cough 786.2 Active Marta Yokum [employer] Cough Breast microcalcification ICD-793.81 Inactive Jennifer Chun MD PhD Abnormal Mammogram ICD-793.80 Inactive Jennifer Chun MD PhD Soft tissue infection ICD-528.9 Inactive Rikki Stearns PA Abscess, skin ICD-682.9 Inactive Rikki Daryn GRANADOS Cellulitis, 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 Rikki Daryn PA Rash ICD-782.1 Inactive Rikki Daryn GRANADOS Upper respiratory infection, acute ICD-465.9 Inactive Rikki Daryn GRANADOS Chemotherapy ICD-V58.11 Inactive Rikki Daryn GRANADOS Cough, chronic ICD-786.2 Inactive Rikki Daryn GRANADOS Ingrown toenail, left ICD-703.0 Inactive Martacarlos Maganaum [employer] Medication List Medication Instructions Start Date Stop Date Generic Name NDC Status Provider Patient Instruction DOXYCYCLINE HYCLATE 100 MG ORAL CAPSULE 1 cap by mouth twice daily DOXYCYCLINE HYCLATE 15688653208 Active Marta Yokum [employer] Active PROAIR HFA 108 (90 BASE) MCG/ACT INHALATION AEROSOL SOLUTION 2 puffs four times a day as needed ALBUTEROL SULFATE 49862478054 Active Marta Yokum [employer] Active AUGMENTIN 875-125 MG ORAL TABLET Take one tablet twice a day with food 04/25 AMOXICILLIN-POT CLAVULANATE 21813737045 Active Marta Yokum [employer] Active TESSALON PERLES 100 MG ORAL CAPSULE 1 to 2 tablets by mouth 3 times daily as needed for cough BENZONATATE 56211398482 No Longer Active Marta Yokum [employer] Active AUGMENTIN 875-125 MG ORAL TABLET 1 po BID x 10 days AMOXICILLIN-POT CLAVULANATE 05651278956 No Longer Active Marta Yokum [employer] Active MEDROL 4 MG ORAL TABLET THERAPY PACK 6 tabs on day 1, 5 tabs on day 2, 4 tabs on day 3, 3 tabs on day 4, 2 tabs on day 5, 1 tab on day 6 METHYLPREDNISOLONE 24654092068 No Longer Active Marta Chinoum [employer] Active TUSSIONEX PENNKINETIC ER 10-8 MG/5ML ORAL SUSPENSION EXTENDED RELEASE 5ml po q12hr PRN Cough HYDROCOD POLST-CHLORPHEN POLST 99507629134 Active Marta Yokum [employer] Active KEFLEX 500 MG ORAL CAPSULE 1 po qid CEPHALEXIN 36338888135 No Longer Active Marta Yokum [employer] Active B COMPLEX 50 ORAL TABLET EXTENDED RELEASE B COMPLEX VITAMINS 03048446295 Active Marta Yokum [employer] Active TUSSIONEX PENNKINETIC ER 10-8 MG/5ML ORAL SUSPENSION EXTENDED RELEASE 5ml po q12hr PRN Cough HYDROCOD POLST-CHLORPHEN POLST 10727820393 No Longer Active Martacarlos Maganaum [employer] Active VITAMIN D3 72656 UNIT ORAL CAPSULE 1 qWeek x 4 months for vitamin D deficiency CHOLECALCIFEROL 28675386808 Active Martacarlos Maganaum [employer] Active CEPHALEXIN 500 MG ORAL CAPSULE Take one four times a day CEPHALEXIN 04452647001 No Longer Active Marta Chinoum [employer] Active BIOTIN 1000 MCG ORAL TABLET Take one daily BIOTIN 42082669024 Active Rikki Harms PA Active VITAMIN C 500 MG ORAL CAPSULE Take one daily ASCORBIC ACID 20802883438 Active Rikki Harms PA Active BENZONATATE 200 MG ORAL CAPSULE One capsule tid. BENZONATATE 60463677956 No Longer Active Rikki Harms PA Active FLONASE ALLERGY RELIEF 50 MCG/ACT NASAL SUSPENSION spray twice in each nostril one time daily FLUTICASONE PROPIONATE 85863598721 No Longer Active Rikki Harms PA Active TUSSIONEX PENNKINETIC ER 10-8 MG/5ML ORAL SUSPENSION EXTENDED RELEASE 5ml po q12hr PRN Cough HYDROCOD POLST-CHLORPHEN POLST 86096810662 No Longer Active Rikki Harms PA Active NIACIN ER 500 MG ORAL TABLET EXTENDED RELEASE Take one twice daily NIACIN 85035023535 Active Rikki Harms PA Active ALBUTEROL SULFATE (2.5 MG/3ML) 0.083% INHALATION NEBULIZATION SOLUTION one vial per nebulizer every 4-6 hours as needed ALBUTEROL SULFATE 25099571424 No Longer Active Rikki Harms PA Active MEDROL 4 MG ORAL TABLET THERAPY PACK 6 tabs on day 1, 5 tabs on day 2, 4 tabs on day 3, 3 tabs on day 4, 2 tabs on day 5, 1 tab on day 6 METHYLPREDNISOLONE 12005941179 No Longer Active Rikki Harms PA Active LEVAQUIN 750 MG ORAL TABLET 1 po qd x 7 days LEVOFLOXACIN 74905387420 No Longer Active Rikki Harms PA Active LEVAQUIN 500 MG ORAL TABLET Take one tablet daily LEVOFLOXACIN 05247401182 No Longer Active Rikki Harms PA Active PROAIR HFA 108 (90 Base) MCG/ACT INHALATION AEROSOL SOLUTION 2 puffs four times a day as needed ALBUTEROL SULFATE 33247096324 Active Marta Yokum [employer] Active LEVAQUIN 500 MG ORAL TABLET 1 tablet by mouth daily LEVOFLOXACIN 81939807947 No Longer Active Marta Yokum [employer] Active CHERATUSSIN AC 100-10 MG/5ML ORAL SYRUP 1 tsp by mouth every 4 hours as needed for cough GUAIFENESIN-CODEINE 90321989254 No Longer Active Rikki Harms PA Active MUPIROCIN 2 % EXTERNAL OINTMENT Use in each nostril in am and pm MUPIROCIN 95487367270 No Longer Active Rikki Harms PA Active DOXYCYCLINE HYCLATE 100 MG ORAL CAPSULE Take one bid DOXYCYCLINE HYCLATE 33353007266 No Longer Active Rikki Harms PA Active CLARITIN 10 MG ORAL TABLET 1prn LORATADINE 17026334337 No Longer Active Jocelyne Naff CSR TECHNICIAN Active ASPIRIN 81 MG ORAL TABLET 1qd ASPIRIN 67386742808 No Longer Active Jocelyne Naff CSR TECHNICIAN Active DOXYCYCLINE HYCLATE 100 MG ORAL CAPSULE 1 cap by mouth twice daily DOXYCYCLINE HYCLATE 42093744405 No Longer Active Rikki Harms PA Active VITAMIN D3 01136 UNIT ORAL CAPSULE 1 pill by mouth weekly, for vitamin D deficiency CHOLECALCIFEROL 36855353518 No Longer Active Jennifer Chun MD PhD Active ANASTROZOLE 1 MG ORAL TABLET Take one by mouth daily ANASTROZOLE 29095783311 Active Jennifer Chun MD PhD Active ZITHROMAX 250 MG ORAL TABLET 2 po today, then 1 po q days 2-5 AZITHROMYCIN 71599048424 No Longer Active Rikki Harms PA Active MECLIZINE HCL 25 MG ORAL TABLET 1 prn MECLIZINE HCL 19763464728 No Longer Active Solomon Alamo MD Active CHERATUSSIN AC SYRUP prn as directed GUAIFENESIN- CODEINE SYRP 84802358185 No Longer Active Rikki Harms PA Active MULTIVITAMINS TABS 1qd MULTIPLE VITAMIN 83664983058 No Longer Active Rikki Harms PA Active OMEPRAZOLE 20 MG ORAL CAPSULE DELAYED RELEASE 1 PO Q D OMEPRAZOLE 64761998203 Active Jocelyne Naff CSR TECHNICIAN Active ZITHROMAX Z-CAROLYN 250 MG ORAL TABLET 2x1day,7c9ltvg AZITHROMYCIN 26311261549 No Longer Active Jocelyne Naff CSR TECHNICIAN Active MULTIVITAMINS TABS 1qd MULTIVITAMINS TABS MULTIPLE VITAMIN Inactive CHERATUSSIN AC SYRUP prn as directed CHERATUSSIN AC SYRUP GUAIFENESIN-CODEINE SYRP Inactive MECLIZINE HCL 25 MG ORAL TABLET 1 prn MECLIZINE HCL 25 MG ORAL TABLET 363937 MECLIZINE HCL Inactive ASPIRIN 81 MG ORAL TABLET 1qd ASPIRIN 81 MG ORAL TABLET 764640 ASPIRIN Inactive CLARITIN 10 MG ORAL TABLET 1prn CLARITIN 10 MG ORAL TABLET 555077 LORATADINE Inactive DOXYCYCLINE HYCLATE 100 MG ORAL CAPSULE Take one bid DOXYCYCLINE HYCLATE 100 MG ORAL CAPSULE 8200374 DOXYCYCLINE HYCLATE Inactive MUPIROCIN 2 % EXTERNAL OINTMENT Use in each nostril in am and pm MUPIROCIN 2 % EXTERNAL OINTMENT 906999 MUPIROCIN Inactive CHERATUSSIN AC 100-10 MG/5ML ORAL SYRUP 1 tsp by mouth every 4 hours as needed for cough CHERATUSSIN AC 100-10 MG/5ML ORAL SYRUP 259943 GUAIFENESIN-CODEINE Inactive LEVAQUIN 500 MG ORAL TABLET 1 tablet by mouth daily LEVAQUIN 500 MG ORAL TABLET 363599 LEVOFLOXACIN Inactive LEVAQUIN 500 MG ORAL TABLET Take one tablet daily LEVAQUIN 500 MG ORAL TABLET 344948 LEVOFLOXACIN Inactive LEVAQUIN 750 MG ORAL TABLET 1 po qd x 7 days LEVAQUIN 750 MG ORAL TABLET 121842 LEVOFLOXACIN Inactive ALBUTEROL SULFATE (2.5 MG/3ML) 0.083% INHALATION NEBULIZATION SOLUTION one vial per nebulizer every 4-6 hours as needed ALBUTEROL SULFATE (2.5 MG/3ML) 0.083% INHALATION NEBULIZATION SOLUTION 595201 ALBUTEROL SULFATE Inactive TUSSIONEX PENNKINETIC ER 10-8 MG/5ML ORAL SUSPENSION EXTENDED RELEASE 5ml po q12hr PRN Cough TUSSIONEX PENNKINETIC ER 10-8 MG/5ML ORAL SUSPENSION EXTENDED RELEASE HYDROCOD POLST-CHLORPHEN POLST Inactive FLONASE ALLERGY RELIEF 50 MCG/ACT NASAL SUSPENSION spray twice in each nostril one time daily FLONASE ALLERGY RELIEF 50 MCG/ ACT NASAL SUSPENSION 1503462 FLUTICASONE PROPIONATE Inactive BENZONATATE 200 MG ORAL CAPSULE One capsule tid. BENZONATATE 200 MG ORAL CAPSULE 850568 BENZONATATE Inactive CEPHALEXIN 500 MG ORAL CAPSULE Take one four times a day CEPHALEXIN 500 MG ORAL CAPSULE 521914 CEPHALEXIN Inactive TUSSIONEX PENNKINETIC ER 10-8 MG/5ML ORAL SUSPENSION EXTENDED RELEASE 5ml po q12hr PRN Cough TUSSIONEX PENNKINETIC ER 10-8 MG/5ML ORAL SUSPENSION EXTENDED RELEASE HYDROCOD POLST-CHLORPHEN POLST Inactive TESSALON PERLES 100 MG ORAL CAPSULE 1 to 2 tablets by mouth 3 times daily as needed for cough TESSALON PERLES 100 MG ORAL CAPSULE 732418 BENZONATATE Inactive ZITHROMAX Z-CAROLYN 250 MG ORAL TABLET 2x1day,0u4xhwl ZITHROMAX Z-CAROLYN 250 MG ORAL TABLET 119993 AZITHROMYCIN Inactive ZITHROMAX 250 MG ORAL TABLET 2 po today, then 1 po q days 2-5 ZITHROMAX 250 MG ORAL TABLET 699832 AZITHROMYCIN Inactive VITAMIN D3 60447 UNIT ORAL CAPSULE 1 pill by mouth weekly, for vitamin D deficiency VITAMIN D3 98327 UNIT ORAL CAPSULE CHOLECALCIFEROL Inactive DOXYCYCLINE HYCLATE 100 MG ORAL CAPSULE 1 cap by mouth twice daily DOXYCYCLINE HYCLATE 100 MG ORAL CAPSULE 7269782 DOXYCYCLINE HYCLATE Inactive MEDROL 4 MG ORAL TABLET THERAPY PACK 6 tabs on day 1, 5 tabs on day 2, 4 tabs on day 3, 3 tabs on day 4, 2 tabs on day 5, 1 tab on day 6 MEDROL 4 MG ORAL TABLET THERAPY PACK 266586 METHYLPREDNISOLONE Inactive KEFLEX 500 MG ORAL CAPSULE 1 po qid KEFLEX 500 MG ORAL CAPSULE 753935 CEPHALEXIN Inactive MEDROL 4 MG ORAL TABLET THERAPY PACK 6 tabs on day 1, 5 tabs on day 2, 4 tabs on day 3, 3 tabs on day 4, 2 tabs on day 5, 1 tab on day 6 MEDROL 4 MG ORAL TABLET THERAPY PACK 256736 METHYLPREDNISOLONE Inactive AUGMENTIN 875-125 MG ORAL TABLET 1 po BID x 10 days AUGMENTIN 875-125 MG ORAL TABLET 063846 AMOXICILLIN-POT CLAVULANATE Inactive Vital Signs Date Name [...] Measured Encounters Code Encounter Date Provider Facility CPT-10845 Level 3 Est. Patient 16:07:34 CDT [facility] [place] CPT-71649 Level 3 Est. Patient 15:39:01 CDT [facility] [place] CPT-19762 Level 4 Est. Patient 17:31:07 [facility] Level 3 Est. Patient 05:11:40 CDT Rikki Stearns [facility] CPT-80595 Level 2 Est. Patient 14:30:43 LATHE SCALPER OPERATOR Marta Viramontes [facility] [place] [facility] CPT-81217 Level 4 Est. Patient 09:14:36 LATHE SCALPER OPERATOR [facility] Level 2 Est. Patient 09:07:32 CDT Marta Viramontes [facility] [place] CPT-48320 Level 4 Est. Patient 11:55:00 CDT [facility]01[facility] Level 3 Est. Patient 13:25:16 CDT Jennifer Chun MD PhD [facility] CPT-95560 Level 3 Est. Patient 17:31:22 CDT Solomon Alamo MD [facility] CPT-11222 Level 3 Est. Patient 08:02:14 CDT Solomon Alamo MD [facility] CPT-23973 Level 3 Est. Patient 17:23:53 CDT Rikki Stearns [facility] CPT-08155 Level 3 Est. Patient 11:22:41 CDT Darryn Hearn [facility] Procedures Code Procedure Name Date Entry Date Standard Description CPT-62928 Venipuncture Draw Fee 16:09:39 CDT CPT-07538 Venipuncture Draw Fee 12:43:48 LATHE SCALPER OPERATOR CPT-56584 BMP - LAB USE ONLY 10:32:33 LATHE SCALPER OPERATOR CPT-81997 Venipuncture Draw Fee 10:32:33 LATHE SCALPER OPERATOR CPT-75502 Magnesium - LAB USE ONLY 09:54:30 CDT CPT-01965 TSH - LAB USE ONLY 09:54:30 CDT CPT-87598 Lipid - LAB USE ONLY 09:54:30 CDT CPT-70151 Venipuncture Draw Fee 09:54:29 CDT CPT-47926 Venipuncture Draw Fee 18:27:04 CDT CPT-94688 Chest 2V Frontal and Lat 10:57:00 LATHE SCALPER OPERATOR CPT-06880 Venipuncture Draw Fee 10:56:59 LATHE SCALPER OPERATOR CPT-19493 Venipuncture Draw Fee 09:22:28 LATHE SCALPER OPERATOR CPT-57874 Chest 2V Frontal and Lat 09:22:27 LATHE SCALPER OPERATOR CPT-I/D I/D Abscess 09:43:13 CDT CPT-50273 Venipuncture Draw Fee 08:16:46 LATHE SCALPER OPERATOR CPT-36759 Venipuncture Draw Fee 08:18:55 LATHE SCALPER OPERATOR CPT-19960 Venipuncture Draw Fee 08:31:18 LATHE SCALPER OPERATOR CPT-83604 Venipuncture Draw Fee 11:42:52 LATHE SCALPER OPERATOR CPT-40018 Venipuncture Draw Fee 13:26:37 LATHE SCALPER OPERATOR CPT-58648 Venipuncture Draw Fee 09:23:38 LATHE SCALPER OPERATOR CPT-000 Give Appropriate Tetanus Booster 10:23:50 CDT CPT-16540 Bone Density 08:28:45 CDT CPT-42101 Bone Density 11:35:15 CDT CPT-PV Prev. Care Visit 12:19:00 CDT CPT-32680 Venipuncture Draw Fee 15:02:58 CDT
--- OUTSIDE RECORDS SUMMARY | 2018-01-19 07:44 | XMS REPORT | Clinical Summary ---
Author Author Admin, E Organization [facility] Address Unknown Phone Unavailable Allergies, Adverse Reactions, Alerts Allergy Name Reaction Description Start Date Severity Status Provider SULFA facial swelling Critical Active Jocelyne Naff PROJECT SCHEDULER Conditions or Problems Problem Name Problem Code Onset Date Status Entry Date Provider Comment Standard Description Annotate G E R D 530.81 Active Jocelyne Naff PROJECT SCHEDULER Esophageal reflux FH COLON CANCER V16.0 Active Jocelyne Naff PROJECT SCHEDULER Family history of malignant neoplasm of gastrointestinal [...] Ingrown toenail, left 703.0 Resolved Marta Yokum CLEANING ATTENDANT Ingrowing nail cellulitis, finger, right 681.00 Active Marta Yokum CLEANING ATTENDANT Cellulitis and abscess of finger, unspecified Cough 786.2 Active Marta Yokum CLEANING ATTENDANT Cough Breast microcalcification ICD-793.81 Inactive Jennifer Chun [...] DARWIN Ingrown toenail, left ICD-703.0 Inactive Marta Tenkum CLEANING ATTENDANT Medication List Medication Instructions Start Date Stop Date Generic Name NDC Status Provider Patient Instruction MEDROL (CAROLYN) 4 MG TABS 6 tabs on day 1, 5 tabs on day 2, 4 tabs on day 3, 3 tabs on day 4, 2 tabs on day 5, 1 tab on day 6 METHYLPREDNISOLONE 53647833532 Active Marta Yokum CLEANING ATTENDANT Active TESSALON PERLES 100 MG CAP 1 to 2 tablets by mouth 3 times daily as needed for cough BENZONATATE 33399022923 Active Marta Yokum CLEANING ATTENDANT Active TUSSIONEX PENNKINETIC ER 10-8 MG/5ML LQCR 5ml po q12hr PRN Cough HYDROCOD POLST-CHLORPHEN POLST 73935211705 Active Marta Yokum CLEANING ATTENDANT Active KEFLEX 500 MG CAP 1 po qid CEPHALEXIN 61322150196 No Longer Active Marta Yokum CLEANING ATTENDANT Active B COMPLEX 50 ORAL CR-TABS B COMPLEX VITAMINS 69904317764 Active Marta Yokum CLEANING ATTENDANT Active TUSSIONEX PENNKINETIC ER 10-8 MG/5ML LQCR 5ml po q12hr PRN Cough HYDROCOD POLST-CHLORPHEN POLST 19995374667 No Longer Active Marta Viramontes APRN Active VITAMIN D3 12944 UNIT CAPS 1 qWeek x 4 months for vitamin D deficiency 04/09 CHOLECALCIFEROL 49895038391 Active Marta Viramontes APRN Active CEPHALEXIN 500 MG ORAL CAPS Take one four times a day CEPHALEXIN 42710818796 No Longer Active Marta Viramontes APRN Active BIOTIN 1000 MCG ORAL TABS Take one daily BIOTIN 14656226505 Active Rikki Harms PA Active VITAMIN C 500 MG ORAL CAPS Take one daily ASCORBIC ACID 93089202928 Active Rikki Harms PA Active BENZONATATE 200 MG ORAL CAPS One capsule tid. BENZONATATE 07802070375 No Longer Active Rikki Harms PA Active FLONASE ALLERGY RELIEF 50 MCG/ACT NASAL SUSP spray twice in each nostril one time daily FLUTICASONE PROPIONATE 29376359874 No Longer Active Rikki Harms PA Active TUSSIONEX PENNKINETIC ER 10-8 MG/5ML LQCR 5ml po q12hr PRN Cough HYDROCOD POLST-CHLORPHEN POLST 22210751396 No Longer Active Rikki Harms PA Active NIACIN ER 500 MG ORAL CR-TABS Take one twice daily NIACIN 31801015165 Active Rikki Harms PA Active ALBUTEROL SULFATE 0.083 % NEBU SOLN one vial per nebulizer every 4-6 hours as needed ALBUTEROL SULFATE 52355547925 No Longer Active Rikki Harms PA Active MEDROL (CAROLYN) 4 MG TABS 6 tabs on day 1, 5 tabs on day 2, 4 tabs on day 3, 3 tabs on day 4, 2 tabs on day 5, 1 tab on day 6 METHYLPREDNISOLONE 21269773858 No Longer Active Rikki Harms PA Active LEVAQUIN 750 MG TABS 1 po qd x 7 days LEVOFLOXACIN 22438731978 No Longer Active Rikki Harms PA Active LEVAQUIN 500 MG ORAL TABS Take one tablet daily LEVOFLOXACIN 49378275765 No Longer Active Rikki Harms PA Active PROAIR HFA 108 (90 BASE) MCG/ACT AERS 2 puffs four times a day as needed 2014 ALBUTEROL SULFATE 83162652948 Active Marta Yokum CLEANING ATTENDANT Active LEVAQUIN 500 MG TAB 1 tablet by mouth daily LEVOFLOXACIN 29429151677 No Longer Active Marta Yokum CLEANING ATTENDANT Active CHERATUSSIN AC 100-10 MG/5ML SYRP 1 tsp by mouth every 4 hours as needed for cough GUAIFENESIN-CODEINE 96399391422 No Longer Active Rikki Harms PA Active MUPIROCIN 2 % EXT OINT Use in each nostril in am and pm MUPIROCIN 85335572310 No Longer Active Rikki Harms PA Active DOXYCYCLINE HYCLATE 100 MG ORAL CAPS Take one bid DOXYCYCLINE HYCLATE 62573905394 No Longer Active Rikki Harms PA Active CLARITIN 10 MG TABS 1prn LORATADINE 22423967908 No Longer Active Jocelyne Naff PROJECT SCHEDULER Active ASPIRIN 81 MG TABS 1qd ASPIRIN 23766927286 No Longer Active Jocelyne Naff PROJECT SCHEDULER Active DOXYCYCLINE HYCLATE 100 MG CAP 1 cap by mouth twice daily DOXYCYCLINE HYCLATE 20310555248 No Longer Active Rikki Harms PA Active VITAMIN D3 87367 UNIT CAPS 1 pill by mouth weekly, for vitamin D deficiency CHOLECALCIFEROL 29121619287 No Longer Active Jennifer Chun MD PhD Active ANASTROZOLE 1 MG ORAL TABS Take one by mouth daily ANASTROZOLE 98131963818 Active Jennifer Chun MD PhD Active ZITHROMAX 250 MG TAB 2 po today, then 1 po q days 2-5 AZITHROMYCIN 58146121510 No Longer Active Rikki Harms PA Active MECLIZINE HCL 25 MG TABS 1 prn MECLIZINE HCL 44446244667 No Longer Active Solomon Alamo MD Active CHERATUSSIN AC SYRP prn as directed GUAIFENESIN- CODEINE SYRP 28531611212 No Longer Active Rikki Harms PA Active MULTIVITAMINS TABS 1qd MULTIPLE VITAMIN 32766981102 No Longer Active Rikki Harms PA Active OMEPRAZOLE 20 MG CPDR 1 PO Q D OMEPRAZOLE 47132412378 Active Jocelyne Naff PROJECT SCHEDULER Active ZITHROMAX Z-CAROLYN 250 MG TABS 2x1day,[id number] AZITHROMYCIN 45379100451 No Longer Active Jocelyne Naff PROJECT SCHEDULER Active MULTIVITAMINS TABS 1qd MULTIVITAMINS TABS MULTIPLE VITAMIN Inactive CHERATUSSIN AC SYRP prn as directed CHERATUSSIN AC SYRP GUAIFENESIN-CODEINE SYRP Inactive MECLIZINE HCL 25 MG TABS 1 prn MECLIZINE HCL 25 MG TABS 490985 MECLIZINE HCL Inactive ASPIRIN 81 MG TABS 1qd ASPIRIN 81 MG TABS ASPIRIN Inactive CLARITIN 10 MG TABS 1prn CLARITIN 10 MG TABS 790241 LORATADINE Inactive DOXYCYCLINE HYCLATE 100 MG ORAL CAPS Take one bid DOXYCYCLINE HYCLATE 100 MG ORAL CAPS 8420882 DOXYCYCLINE HYCLATE Inactive MUPIROCIN 2 % EXT OINT Use in each nostril in am and pm MUPIROCIN 2 % EXT OINT 298545 MUPIROCIN Inactive CHERATUSSIN AC 100-10 MG/5ML SYRP 1 tsp by mouth every 4 hours as needed for cough CHERATUSSIN AC 100-10 MG/5ML SYRP 500941 GUAIFENESIN-CODEINE Inactive LEVAQUIN 500 MG TAB 1 tablet by mouth daily LEVAQUIN 500 MG TAB 123112 LEVOFLOXACIN Inactive LEVAQUIN 500 MG ORAL TABS Take one tablet daily LEVAQUIN 500 MG ORAL TABS 094350 LEVOFLOXACIN Inactive LEVAQUIN 750 MG TABS 1 po qd x 7 days LEVAQUIN 750 MG TABS 652831 LEVOFLOXACIN Inactive ALBUTEROL SULFATE 0.083 % NEBU SOLN one vial per nebulizer every 4-6 hours as needed ALBUTEROL SULFATE 0.083 % NEBU SOLN 299256 ALBUTEROL SULFATE Inactive TUSSIONEX PENNKINETIC ER 10-8 MG/5ML LQCR 5ml po q12hr PRN Cough TUSSIONEX PENNKINETIC ER 10-8 MG/5ML LQCR HYDROCOD POLST- CHLORPHEN POLST Inactive FLONASE ALLERGY RELIEF 50 MCG/ACT NASAL SUSP spray twice in each nostril one time daily FLONASE ALLERGY RELIEF 50 MCG/ACT NASAL SUSP 5061577 FLUTICASONE PROPIONATE Inactive BENZONATATE 200 MG ORAL CAPS One capsule tid. BENZONATATE 200 MG ORAL CAPS 798705 BENZONATATE Inactive CEPHALEXIN 500 MG ORAL CAPS Take one four times a day CEPHALEXIN 500 MG ORAL CAPS 545673 CEPHALEXIN Inactive TUSSIONEX PENNKINETIC ER 10-8 MG/5ML LQCR 5ml po q12hr PRN Cough TUSSIONEX PENNKINETIC ER 10-8 MG/5ML LQCR HYDROCOD POLST- CHLORPHEN POLST Inactive ZITHROMAX Z-CAROLYN 250 MG TABS 2x1day,4n6hkfa ZITHROMAX Z-CAROLYN 250 MG TABS 0367356 AZITHROMYCIN Inactive ZITHROMAX 250 MG TAB 2 po today, then 1 po q days 2-5 ZITHROMAX 250 MG TAB 2201036 AZITHROMYCIN Inactive VITAMIN D3 16023 UNIT CAPS 1 pill by mouth weekly, for vitamin D deficiency VITAMIN D3 14835 UNIT CAPS CHOLECALCIFEROL Inactive DOXYCYCLINE HYCLATE 100 MG CAP 1 cap by mouth twice daily DOXYCYCLINE HYCLATE 100 MG CAP 8443051 DOXYCYCLINE HYCLATE Inactive MEDROL (CAROLYN) 4 MG TABS 6 tabs on day 1, 5 tabs on day 2, 4 tabs on day 3, 3 tabs on day 4, 2 tabs on day 5, 1 tab on day 6 MEDROL ( CAROLYN) 4 MG TABS 627613 METHYLPREDNISOLONE Inactive KEFLEX 500 MG CAP 1 po qid KEFLEX 500 MG CAP 303075 CEPHALEXIN Inactive Vital Signs Date Name Value [...] Panel - Chemistry sodium, serum 142 mmol/L 980-751 0261/07/25 potassium, serum 4.0 mmol/L 3.5-5.2 chloride, serum 107 mmol/L 98-107 carbon dioxide, venous blood 31.6 mmol/L 21.0-32.0 blood glucose 108 mg/dL 65-110 calcium, serum 9.2 mg/dL 8.5-10.1 urea nitrogen, blood 20 mg/dL 7-18 creatinine, serum 0.92 mg/dL 0.55-1.30 sodium, serum 141 mmol/L 400-376 6921/11/11 potassium, serum 4.2 mmol/L 3.5-5.2 chloride, serum 106 mmol/L 98-107 carbon dioxide, venous blood 29.1 mmol/L 21.0-32.0 blood glucose 95 mg/dL 65-110 calcium, serum 8.6 mg/dL 8.5-10.1 urea nitrogen, blood 23 mg/dL 7-18 creatinine, serum 0.83 mg/dL 0.55-1.30 Lab Report: Lipid Panel, Thyroid Stimulating Hormone (L) - Chemistry cholesterol, serum 177 mg/dL 740-352 6848/10/31 triglyceride, serum, fasting 64 mg/dL 30-200 HDL cholesterol, serum 77 mg/dL 32-96 LDL cholesterol, serum 87 mg/dL 0-130 TSH 2.13 m[iU]/mL 0.36-3.74 Lab Report: VITAMIN D, 25-HYDROXY/02459 - Chemistry vitamin D 25-hydroxy, serum 25 ng/mL 30-100 Encounters Code Encounter Date Provider Facility CPT-77625 Level 3 Est. Patient 16:07:34 CDT Marta Viramontes [facility] CPT-82847 Level 3 Est. Patient 15:39:01 CDT Marta Viramontes [facility] CPT-71171 Level 4 Est. Patient 17:31:07 CDT Marta Viramontes [facility] CPT-16202 Level 3 Est. Patient 05:11:40 CDT Rikki GRANADOS [facility] CPT-03968 Level 2 Est. Patient 14:30:43 WAITER/WAITRESS COUNTER Marta Viramontes [facility] CPT-81565 Level 4 Est. Patient 09:14:36 WAITER/WAITRESS COUNTER Rikki GRANADOS [facility] CPT-83714 Level 2 Est. Patient 09:07:32 CDT Marta Viramontes [facility] CPT-81612 Level 4 Est. Patient 11:55:00 CDT Rikki GRANADOS [facility] CPT-48790 Level 3 Est. Patient 13:25:16 CDT Jennifer Chun MD [facility] CPT-49939 Level 3 Est. Patient 17:31:22 CDT Solomon Alamo MD [facility] CPT-51359 Level 3 Est. Patient 08:02:14 CDT Solomon Alamo MD [facility] CPT-23213 Level 3 Est. Patient 17:23:53 CDT Rikki GRANADOS [facility] CPT-05208 Level 3 Est. Patient 11:22:41 CDT Darryn Hearn [facility] Procedures Code Procedure Name Date Entry Date Standard Description CPT-18153 Venipuncture Draw Fee 12:43:48 WAITER/WAITRESS COUNTER CPT-76014 BMP - LAB USE ONLY 10:32:33 WAITER/WAITRESS COUNTER CPT-01787 Venipuncture Draw Fee 10:32:33 WAITER/WAITRESS COUNTER CPT-08343 Magnesium - LAB USE ONLY 09:54:30 CDT CPT-24922 TSH - LAB USE ONLY 09:54:30 CDT CPT-67196 Lipid - LAB USE ONLY 09:54:30 CDT CPT-16104 Venipuncture Draw Fee 09:54:29 CDT CPT-21353 Venipuncture Draw Fee 18:27:04 CDT CPT-08155 Chest 2V Frontal and Lat 10:57:00 WAITER/WAITRESS COUNTER CPT-75343 Venipuncture Draw Fee 10:56:59 WAITER/WAITRESS COUNTER CPT-83121 Venipuncture Draw Fee 09:22:28 WAITER/WAITRESS COUNTER CPT-49586 Chest 2V Frontal and Lat 09:22:27 WAITER/WAITRESS COUNTER CPT-I/D I/D Abscess 09:43:13 CDT CPT-27480 Venipuncture Draw Fee 08:16:46 WAITER/WAITRESS COUNTER CPT-16697 Venipuncture Draw Fee 08:18:55 WAITER/WAITRESS COUNTER CPT-68838 Venipuncture Draw Fee 08:31:18 WAITER/WAITRESS COUNTER CPT-77849 Venipuncture Draw Fee 11:42:52 WAITER/WAITRESS COUNTER CPT-08866 Venipuncture Draw Fee 13:26:37 WAITER/WAITRESS COUNTER CPT-37348 Venipuncture Draw Fee 09:23:38 WAITER/WAITRESS COUNTER CPT-000 Give Appropriate Tetanus Booster 10:23:50 CDT CPT-58710 Bone Density 08:28:45 CDT CPT-01190 Bone Density 11:35:15 CDT CPT-PV Prev. Care Visit 12:19:00 CDT CPT-75649 Venipuncture Draw Fee 15:02:58 CDT
--- OUTSIDE RECORDS SUMMARY | 2018-01-19 07:45 | XMS REPORT | Clinical Summary ---
Author Author Admin, E Organization [facility] Address Unknown Phone Unavailable Allergies, Adverse Reactions, Alerts Allergy Name Reaction Description Start Date Severity Status Provider SULFA facial swelling Critical Active Jocelyne Naff CLOTH SHADER Conditions or Problems Problem Name Problem Code Onset Date Status Entry Date Provider Comment Standard Description Annotate G E R D 530.81 Active Jocelyne Naff CLOTH SHADER Esophageal reflux FH COLON CANCER V16.0 Active Jocelyne Naff CLOTH SHADER Family history of malignant neoplasm of gastrointestinal [...] ORAL CAPS Take one bid DOXYCYCLINE HYCLATE 47868850905 Active Jocelyne Naff CLOTH SHADER Active DOXYCYCLINE HYCLATE 100 MG CAP 1 cap by mouth twice daily DOXYCYCLINE HYCLATE 40408552351 No Longer Active Rikki Daryn GRANADOS Active VITAMIN D3 89474 UNIT CAPS 1 pill by mouth weekly, for vitamin D deficiency CHOLECALCIFEROL 94884035262 Active Jennifer Chun MD PhD Active ANASTROZOLE 1 MG ORAL TABS Take one by mouth daily ANASTROZOLE 77514759917 Active Jennifer Chun MD PhD Active ZITHROMAX 250 MG TAB 2 po today, then 1 po q days 2-5 AZITHROMYCIN 50929010600 No Longer Active Rikki GRANADOS Active MECLIZINE HCL 25 MG TABS 1 prn MECLIZINE HCL 40077611523 No Longer Active Solomon Alamo MD Active CHERATUSSIN AC SYRP prn as directed GUAIFENESIN- CODEINE SYRP 39764671791 No Longer Active Rikki Daryn GRANADOS Active MULTIVITAMINS TABS 1qd MULTIPLE VITAMIN 38433354243 No Longer Active Rikki Daryn PA Active CLARITIN 10 MG TABS 1prn LORATADINE 84178768215 Active Jocelyne Naff CLOTH SHADER Active ASPIRIN 81 MG TABS 1qd ASPIRIN 11110141863 Active Jocelyne Naff CLOTH SHADER Active OMEPRAZOLE 20 MG CPDR 1 PO Q D OMEPRAZOLE 49613157853 Active Rikki Stearns PA Active ZITHROMAX Z-CAROLYN 250 MG TABS 2x1day,[id number] AZITHROMYCIN 08704424479 No Longer Active Jocelyne Lovell CLOTH SHADER Active MULTIVITAMINS TABS 1qd MULTIVITAMINS TABS MULTIPLE VITAMIN Inactive CHERATUSSIN AC SYRP prn as directed CHERATUSSIN AC SYRP GUAIFENESIN-CODEINE SYRP Inactive MECLIZINE HCL 25 MG TABS 1 prn MECLIZINE HCL 25 MG TABS 921967 MECLIZINE HCL Inactive ZITHROMAX Z-CAROLYN 250 MG TABS 2x1day,0f6jrqi ZITHROMAX Z-CAROLYN 250 MG TABS 5563766 AZITHROMYCIN Inactive ZITHROMAX 250 MG TAB 2 po today, then 1 po q days 2-5 ZITHROMAX 250 MG TAB 3182587 AZITHROMYCIN Inactive DOXYCYCLINE HYCLATE 100 MG CAP 1 cap by mouth twice daily DOXYCYCLINE HYCLATE 100 MG CAP 1524797 DOXYCYCLINE HYCLATE Inactive Vital Signs Date Name [...] % 11.6-14.8 platelet count 131 10^3/MM^3 10*3/mm3 403-865 9495/12/12 leukocyte count, blood 28.6 10^3/MM^3 10*3/mm3 4.6-10.2 [...] % 11.6-14.8 platelet count 237 10^3/MM^3 10*3/mm3 730-034 1891/12/23 leukocyte count, blood 6.9 10^3/MM^3 10*3/mm3 4.6-10.2 [...] % 11.6-14.8 platelet count 360 10^3/MM^3 10*3/mm3 090-856 6509/12/31 leukocyte count, blood 5.3 10^3/MM^3 10*3/mm3 4.6-10.2 [...] % 11.6-14.8 platelet count 222 10^3/MM^3 10*3/mm3 270-254 9422/01/07 leukocyte count, blood 11.7 10^3/MM^3 10*3/mm3 4.6-10.2 [...] % 11.6-14.8 platelet count 191 10^3/MM^3 10*3/mm3 815-085 2619/01/20 leukocyte count, blood 9.8 10^3/MM^3 10*3/mm3 4.6-10.2 [...] % 11.6-14.8 platelet count 195 10^3/MM^3 10*3/mm3 885-732 5497/01/28 leukocyte count, blood 11.9 10^3/MM^3 10*3/mm3 4.6-10.2 [...] % 11.6-14.8 platelet count 278 10^3/MM^3 10*3/mm3 273-107 8846/02/04 leukocyte count, blood 8.5 10^3/MM^3 10*3/mm3 4.6-10.2 [...] % 11.6-14.8 platelet count 326 10^3/MM^3 10*3/mm3 270-952 4157/02/10 leukocyte count, blood 2.3 10^3/MM^3 10*3/mm3 4.6-10.2 [...] % 11.6-14.8 platelet count 240 10^3/MM^3 10*3/mm3 145-649 4295/02/17 leukocyte count, blood 3.4 10^3/MM^3 10*3/mm3 4.6-10.2 [...] % 11.6-14.8 platelet count 308 10^3/MM^3 10*3/mm3 918-876 4253/02/25 leukocyte count, blood 6.6 10^3/MM^3 10*3/mm3 4.6-10.2 [...] Panel - Chemistry sodium, serum 144 mmol/L 030-105 7685/12/16 potassium, serum 4.5 mmol/L 3.5-5.2 chloride, serum 107 mmol/L 98-107 carbon dioxide, venous blood 31.4 mmol/L 21.0-32.0 blood glucose 104 mg/dL 65-110 urea nitrogen, blood 17 mg/dL 7-18 creatinine, serum 1.10 mg/dL 0.60-1.30 alanine aminotransferase (SGPT), serum 25 U/L aspartate aminotransferase (SGOT), serum 24 U/L 15-37 calcium, serum 8.4 mg/dL 8.5-10.1 bilirubin, serum, total 0.20 mg/dL 0.00-1.00 sodium, serum 141 mmol/L 775-458 9065/01/14 potassium, serum 4.9 mmol/L 3.5-5.2 chloride, serum [...] % 11.6-14.8 platelet count 376 10^3/MM^3 10*3/mm3 255-611 6365/12/16 leukocyte count, blood 19.5 10^3/MM^3 10*3/mm3 4.6-10.2 [...] Panel - Chemistry sodium, serum 140 mmol/L 228-813 1569/07/13 potassium, serum 4.5 mmol/L 3.5-5.2 chloride, serum 106 mmol/L 98-107 carbon dioxide, venous blood 27.7 mmol/L 21.0-32.0 blood glucose 105 mg/dL 65-110 urea nitrogen, blood 14 mg/dL 7-18 creatinine, serum 0.90 mg/dL 0.60-1.30 alanine aminotransferase (SGPT), serum 29 U/L 12-78 aspartate aminotransferase (SGOT), serum 22 U/L 15-37 calcium, serum 9.4 mg/dL 8.5-10.1 bilirubin, serum, total 0.70 mg/dL 0.00-1.00 cholesterol, serum 160 mg/dL 182-821 9553/07/13 triglyceride, serum, fasting 63 mg/dL 30-200 HDL [...] Panel - Chemistry sodium, serum 141 mmol/L 557-863 0846/02/10 potassium, serum 5.2 mmol/L 3.5-5.2 chloride, serum 106 mmol/L 98-107 carbon dioxide, venous blood 27.8 mmol/L 21.0-32.0 blood glucose 111 mg/dL 65-110 urea nitrogen, blood 18 mg/dL 7-18 creatinine, serum 0.90 mg/dL 0.60-1.30 alanine aminotransferase (SGPT), serum 29 U/L 12-78 aspartate aminotransferase (SGOT), serum 21 U/L 15-37 calcium, serum 8.3 mg/dL 8.5-10.1 bilirubin, serum, total 0.40 mg/dL 0.00-1.00 Lab Report: VITAMIN D, 25-HYDROXY/61675 - Chemistry vitamin D 25-hydroxy, serum 24 ng/mL 30-100 Encounters Code Encounter Date Provider Facility CPT-40549 Level 3 Est. Patient 13:25:16 CDT Jennifer Chun MD PhD [facility] CPT-52346 Level 3 Est. Patient 17:31:22 CDT Solomon Alamo MD [facility] CPT-45490 Level 3 Est. Patient 08:02:14 CDT Solomon Alamo MD [facility] CPT-60870 Level 3 Est. Patient 17:23:53 CDT Rikki GRANADOS [facility] CPT-24520 Level 3 Est. Patient 11:22:41 CDT Darryn GRANADOS [facility] Procedures Code Procedure Name Date Entry Date Standard Description CPT-I/D I/D Abscess 09:43:13 CDT CPT-78295 Venipuncture Draw Fee 08:16:46 NITRIC ACID PLANT OPERATOR CPT-35472 Venipuncture Draw Fee 08:18:55 NITRIC ACID PLANT OPERATOR CPT-39390 Venipuncture Draw Fee 08:31:18 NITRIC ACID PLANT OPERATOR CPT-38143 Venipuncture Draw Fee 11:42:52 NITRIC ACID PLANT OPERATOR CPT-79943 Venipuncture Draw Fee 13:26:37 NITRIC ACID PLANT OPERATOR CPT-67272 Venipuncture Draw Fee 09:23:38 NITRIC ACID PLANT OPERATOR CPT-000 Give Appropriate Tetanus Booster 10:23:50 CDT CPT-89472 Bone Density 08:28:45 CDT CPT-59392 Bone Density 11:35:15 CDT CPT-PV Prev. Care Visit 12:19:00 CDT CPT-24751 Venipuncture Draw Fee 15:02:58 CDT
--- OUTSIDE RECORDS SUMMARY | 2018-01-19 07:46 | XMS REPORT | Clinical Summary ---
Author Author Admin, E Organization [facility] Address Unknown Phone Unavailable Allergies, Adverse Reactions, Alerts Allergy Name Reaction Description Start Date Severity Status Provider SULFA facial swelling Critical Active Jocelyne Naff EPIC ANESTHESIA ANALYST Conditions or Problems Problem Name Problem Code Onset Date Status Entry Date Provider Comment Standard Description Annotate G E R D 530.81 Active Jocelyne Naff EPIC ANESTHESIA ANALYST Esophageal reflux FH COLON CANCER V16.0 Active Jocelyne Naff EPIC ANESTHESIA ANALYST Family history of malignant neoplasm of gastrointestinal tract ESOPHAGEAL STRICTURE 530.3 Active Darryn Hearn PA Stricture and stenosis of esophagus CAROTID ARTERY STENOSIS, RIGHT 433.10 Active Rikki Stearns PA Occlusion and stenosis of carotid artery, without mention of cerebral infarction HEALTH SCREENING V70.0 Active Rose Darnell EPIC ANESTHESIA ANALYST Routine general medical examination at a [...] unspecified sites Rash 782.1 Active Marta Viramontes MAINTENANCE TECHNICIAN 3RD SHIFT Rash and other nonspecific skin eruption Adenocarcinoma, fallopian tube, 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 Kailee Rachel RMA Malignant neoplasm of fallopian tube Adenocarcinoma, right breast 174.9 Active Alfreda Anthony RMA Malignant neoplasm of breast (female), unspecified Female breast cancer, right upper-outer quadrant 174.4 Active Kailee Rachel RMA Malignant neoplasm of upper-outer quadrant of female breast Upper respiratory infection, acute 465.9 Active iRkki GRANADOS Acute upper respiratory infections of unspecified site Chemotherapy V58.11 Active Rikki GRANADOS Encounter for antineoplastic chemotherapy Cough, chronic 786.2 Active Rikki GRANADOS Cough Abnormal Mammogram ICD-793.80 Inactive Jennifer Chun MD [...] 5, 1 tab on day 6 METHYLPREDNISOLONE 02601691764 No Longer Active Rikki GRANADOS Active ALBUTEROL SULFATE 0.083 % NEBU SOLN one vial per nebulizer every 4-6 hours as needed ALBUTEROL SULFATE 38376100221 Active Rikki Harms PA Active LEVAQUIN 750 MG TABS 1 po qd x 7 days LEVOFLOXACIN 12021593814 No Longer Active Rikki Harms PA Active LEVAQUIN 500 MG ORAL TABS Take one tablet daily LEVOFLOXACIN 04068788350 No Longer Active Rikki Harms PA Active PROAIR HFA 108 (90 BASE) MCG/ACT AERS 2 puffs four times a day as needed 2014 ALBUTEROL SULFATE 60142659062 Active Marta Yokum MAINTENANCE TECHNICIAN 3RD SHIFT Active TUSSIONEX PENNKINETIC ER 10-8 MG/5ML LQCR 5ml po q12hr PRN Cough HYDROCOD POLST-CHLORPHEN POLST 21994237845 Active Rikki Harms PA Active FLONASE ALLERGY RELIEF 50 MCG/ACT NASAL SUSP spray twice in each nostril one time daily FLUTICASONE PROPIONATE 62875496387 Active Marta Yokum MAINTENANCE TECHNICIAN 3RD SHIFT Active LEVAQUIN 500 MG TAB 1 tablet by mouth daily LEVOFLOXACIN 62047998337 No Longer Active Marta Yokum MAINTENANCE TECHNICIAN 3RD SHIFT Active BENZONATATE 200 MG ORAL CAPS One capsule tid. BENZONATATE 90126228245 Active Marta Yokum MAINTENANCE TECHNICIAN 3RD SHIFT Active CHERATUSSIN AC 100-10 MG/5ML SYRP 1 tsp by mouth every 4 hours as needed for cough GUAIFENESIN-CODEINE 59040683860 No Longer Active Rikki Harms PA Active MUPIROCIN 2 % EXT OINT Use in each nostril in am and pm MUPIROCIN 02601984971 No Longer Active Rikki Harms PA Active DOXYCYCLINE HYCLATE 100 MG ORAL CAPS Take one bid DOXYCYCLINE HYCLATE 46108209582 No Longer Active Rikki Harms PA Active CLARITIN 10 MG TABS 1prn LORATADINE 10030049385 No Longer Active Jocelyne Naff EPIC ANESTHESIA ANALYST Active ASPIRIN 81 MG TABS 1qd ASPIRIN 62944849662 No Longer Active Jocelyne Naff EPIC ANESTHESIA ANALYST Active DOXYCYCLINE HYCLATE 100 MG CAP 1 cap by mouth twice daily DOXYCYCLINE HYCLATE 22482554266 No Longer Active Rikki Harms PA Active VITAMIN D3 64723 UNIT CAPS 1 pill by mouth weekly, for vitamin D deficiency CHOLECALCIFEROL 50107695367 No Longer Active Jennifer Chun MD PhD Active ANASTROZOLE 1 MG ORAL TABS Take one by mouth daily ANASTROZOLE 24760922466 Active Jennifer Chun MD PhD Active ZITHROMAX 250 MG TAB 2 po today, then 1 po q days 2-5 AZITHROMYCIN 15748316907 No Longer Active Rikki Harms PA Active MECLIZINE HCL 25 MG TABS 1 prn MECLIZINE HCL 62286187921 No Longer Active Solomon Alamo MD Active CHERATUSSIN AC SYRP prn as directed GUAIFENESIN- CODEINE SYRP 38662689622 No Longer Active Rikki Harms PA Active MULTIVITAMINS TABS 1qd MULTIPLE VITAMIN 61679281201 No Longer Active Rikki Harms PA Active OMEPRAZOLE 20 MG CPDR 1 PO Q D OMEPRAZOLE 88874637646 Active Rikki Harms PA Active ZITHROMAX Z-CAROLYN 250 MG TABS 2x1day,3m5ghqq AZITHROMYCIN 70092392842 No Longer Active Jocelyne Naff EPIC ANESTHESIA ANALYST Active CHERATUSSIN AC SYRP prn as directed CHERATUSSIN AC SYRP GUAIFENESIN-CODEINE SYRP Inactive CHERATUSSIN AC 100-10 MG/5ML SYRP 1 tsp by mouth every 4 hours as needed for cough CHERATUSSIN AC 100-10 MG/5ML SYRP 735467 GUAIFENESIN-CODEINE Inactive CLARITIN 10 MG TABS 1prn CLARITIN 10 MG TABS 020381 LORATADINE Inactive DOXYCYCLINE HYCLATE 100 MG ORAL CAPS Take one bid DOXYCYCLINE HYCLATE 100 MG ORAL CAPS 7758123 DOXYCYCLINE HYCLATE Inactive DOXYCYCLINE HYCLATE 100 MG CAP 1 cap by mouth twice daily DOXYCYCLINE HYCLATE 100 MG CAP 7625449 DOXYCYCLINE HYCLATE Inactive MULTIVITAMINS TABS 1qd MULTIVITAMINS TABS MULTIPLE VITAMIN Inactive ASPIRIN 81 MG TABS 1qd ASPIRIN 81 MG TABS 238783 ASPIRIN Inactive MUPIROCIN 2 % EXT OINT Use in each nostril in am and pm MUPIROCIN 2 % EXT OINT 001513 MUPIROCIN Inactive MECLIZINE HCL 25 MG TABS 1 prn MECLIZINE HCL 25 MG TABS 312549 MECLIZINE HCL Inactive MEDROL (CAROLYN) 4 MG TABS 6 tabs on day 1, 5 tabs on day 2, 4 tabs on day 3, 3 tabs on day 4, 2 tabs on day 5, 1 tab on day 6 MEDROL ( CAROLYN) 4 MG TABS METHYLPREDNISOLONE Inactive LEVAQUIN 500 MG TAB 1 tablet by mouth daily LEVAQUIN 500 MG TAB 327198 LEVOFLOXACIN Inactive LEVAQUIN 500 MG ORAL TABS Take one tablet daily LEVAQUIN 500 MG ORAL TABS 791063 LEVOFLOXACIN Inactive ZITHROMAX 250 MG TAB 2 po today, then 1 po q days 2-5 ZITHROMAX 250 MG TAB 8643691 AZITHROMYCIN Inactive LEVAQUIN 750 MG TABS 1 po qd x 7 days LEVAQUIN 750 MG TABS 647150 LEVOFLOXACIN Inactive ZITHROMAX Z-CAROLYN 250 MG TABS 2x1day,7g2ayut ZITHROMAX Z-CAROLYN 250 MG TABS 2683873 AZITHROMYCIN Inactive VITAMIN D3 72519 UNIT CAPS 1 pill by mouth weekly, for vitamin D deficiency VITAMIN D3 16653 UNIT CAPS CHOLECALCIFEROL Inactive Vital Signs Date Name Value Unit [...] % 11.6-14.8 platelet count 143 10^3/MM^3 10*3/mm3 610-064 9165/11/25 leukocyte count, blood 2.1 10^3/MM^3 10*3/mm3 4.6-10.2 [...] % 11.6-14.8 platelet count 139 10^3/MM^3 10*3/mm3 252-996 9272/12/02 leukocyte count, blood 6.7 10^3/MM^3 10*3/mm3 4.6-10.2 [...] % 11.6-14.8 platelet count 258 10^3/MM^3 10*3/mm3 481-522 4860/12/09 leukocyte count, blood 5.3 10^3/MM^3 10*3/mm3 4.6-10.2 [...] % 11.6-14.8 platelet count 240 10^3/MM^3 10*3/mm3 670-863 6850/12/16 leukocyte count, blood 3.2 10^3/MM^3 10*3/mm3 4.6-10.2 [...] % 11.6-14.8 platelet count 158 10^3/MM^3 10*3/mm3 202-839 5558/12/18 leukocyte count, blood 8.8 10^3/MM^3 10*3/mm3 4.6-10.2 [...] % 11.6-14.8 platelet count 207 10^3/MM^3 10*3/mm3 175-549 0650/12/23 leukocyte count, blood 6.2 10^3/MM^3 10*3/mm3 4.6-10.2 [...] % 11.6-14.8 platelet count 183 10^3/MM^3 10*3/mm3 012-335 9031/11/11 leukocyte count, blood 2.0 10^3/MM^3 10*3/mm3 4.6-10.2 [...] % 11.6-14.8 platelet count 203 10^3/MM^3 10*3/mm3 769-202 5797/12/30 leukocyte count, blood 5.2 10^3/MM^3 10*3/mm3 4.6-10.2 [...] % 11.6-14.8 platelet count 200 10^3/MM^3 10*3/mm3 878-913 4211/03/02 leukocyte count, blood 5.1 10^3/MM^3 10*3/mm3 4.6-10.2 [...] Panel - Chemistry sodium, serum 142 mmol/L 397-713 1061/02/04 carbon dioxide, venous blood 24.9 mmol/L 21.0-32.0 potassium, serum 4.1 mmol/L 3.5-5.2 chloride, serum 106 mmol/L 98-107 blood glucose 103 mg/dL 65-110 urea nitrogen, blood 25 mg/dL 7-18 creatinine, serum 0.83 mg/dL 0.55-1.30 alanine aminotransferase (SGPT), serum 38 U/L 12-78 aspartate aminotransferase (SGOT), serum 26 U/L 15-37 calcium, serum 8.7 mg/dL 8.5-10.1 bilirubin, serum, total 0.30 mg/dL 0.00-1.00 sodium, serum 140 mmol/L 590-670 9823/01/13 carbon dioxide, venous blood 26.4 mmol/L 21.0-32.0 potassium, serum 4.2 mmol/L 3.5-5.2 chloride, serum 104 mmol/L 98-107 blood glucose 101 mg/dL 65-110 urea nitrogen, blood 18 mg/dL 7-18 creatinine, serum 0.80 mg/dL 0.55-1.30 alanine aminotransferase (SGPT), serum 28 U/L aspartate aminotransferase (SGOT), serum 24 U/L 15-37 calcium, serum 8.7 mg/dL 8.5-10.1 bilirubin, serum, total 0.50 mg/dL 0.00-1.00 sodium, serum 138 mmol/L 679-560 5969/11/04 carbon dioxide, venous blood 27.7 mmol/L 21.0-32.0 potassium, serum 4.9 mmol/L 3.5-5.2 chloride, serum 104 mmol/L 98-107 blood glucose 92 mg/dL 65-110 urea nitrogen, blood 24 mg/dL 7-18 creatinine, serum 0.95 mg/dL 0.55-1.30 alanine aminotransferase (SGPT), serum 34 U/L aspartate aminotransferase (SGOT), serum 23 U/L - calcium, serum 8.9 mg/dL 8.5-10.1 bilirubin, serum, total 0.70 mg/dL 0.00-1.00 sodium, serum 140 mmol/L 264-164 4384/01/06 carbon dioxide, venous blood 27.2 mmol/L 21.0-32.0 [...] % 11.6-14.8 platelet count 289 10^3/MM^3 10*3/mm3 044-975 7187/01/06 leukocyte count, blood 4.1 10^3/MM^3 10*3/mm3 4.6-10.2 [...] % 11.6-14.8 platelet count 297 10^3/MM^3 10*3/mm3 120-016 1925/02/04 leukocyte count, blood 4.2 10^3/MM^3 10*3/mm3 4.6-10.2 [...] % 11.6-14.8 platelet count 271 10^3/MM^3 10*3/mm3 694-056 6208/11/04 leukocyte count, blood 3.8 10^3/MM^3 10*3/mm3 4.6-10.2 [...] Panel - Chemistry sodium, serum 140 mmol/L 633-482 9267/07/13 potassium, serum 4.5 mmol/L 3.5-5.2 chloride, serum 106 mmol/L 98-107 carbon dioxide, venous blood 27.7 mmol/L 21.0-32.0 blood glucose 105 mg/dL 65-110 urea nitrogen, blood 14 mg/dL 7-18 creatinine, serum 0.90 mg/dL 0.60-1.30 alanine aminotransferase (SGPT), serum 29 U/L 12-78 aspartate aminotransferase (SGOT), serum 22 U/L 15-37 calcium, serum 9.4 mg/dL 8.5-10.1 bilirubin, serum, total 0.70 mg/dL 0.00-1.00 cholesterol, serum 160 mg/dL 506-724 5787/07/13 triglyceride, serum, fasting 63 mg/dL 30-200 HDL [...] Panel - Chemistry sodium, serum 141 mmol/L 500-439 7773/11/18 carbon dioxide, venous blood 26.2 mmol/L 21.0-32.0 potassium, serum 4.4 mmol/L 3.5-5.2 chloride, serum 106 mmol/L 98-107 blood glucose 102 mg/dL 65-110 urea nitrogen, blood 24 mg/dL 7-18 creatinine, serum 0.77 mg/dL 0.55-1.30 alanine aminotransferase (SGPT), serum 30 U/L 12-78 aspartate aminotransferase (SGOT), serum 15 U/L 15-37 calcium, serum 8.3 mg/dL 8.5-10.1 bilirubin, serum, total 0.30 mg/dL 0.00-1.00 sodium, serum 139 mmol/L 524-033 8729/11/25 carbon dioxide, venous blood 27.9 mmol/L 21.0-32.0 potassium, serum 4.7 mmol/L 3.5-5.2 chloride, serum 105 mmol/L 98-107 blood glucose 94 mg/dL 65-110 urea nitrogen, blood 21 mg/dL 7-18 creatinine, serum 0.79 mg/dL 0.55-1.30 alanine aminotransferase (SGPT), serum 40 U/L aspartate aminotransferase (SGOT), serum 22 U/L 15-37 calcium, serum 8.5 mg/dL 8.5-10.1 bilirubin, serum, total 0.80 mg/dL 0.00-1.00 sodium, serum 142 mmol/L 650-339 8640/12/09 carbon dioxide, venous blood 28.5 mmol/L 21.0-32.0 potassium, serum 5.0 mmol/L 3.5-5.2 chloride, serum 109 mmol/L 98-107 blood glucose 91 mg/dL 65-110 urea nitrogen, blood 27 mg/dL - creatinine, serum 0.88 mg/dL 0.55-1.30 alanine aminotransferase (SGPT), serum 31 U/L aspartate aminotransferase (SGOT), serum 18 U/L 15-37 calcium, serum 8.9 mg/dL 8.5-10.1 bilirubin, serum, total 0.40 mg/dL 0.00-1.00 sodium, serum 140 mmol/L 419-210 3124/12/16 carbon dioxide, venous blood 25.4 mmol/L 21.0-32.0 potassium, serum 4.1 mmol/L 3.5-5.2 chloride, serum 104 mmol/L 98-107 blood glucose 110 mg/dL 65-110 urea nitrogen, blood 24 mg/dL - creatinine, serum 0.87 mg/dL 0.55-1.30 alanine aminotransferase (SGPT), serum 35 U/L aspartate aminotransferase (SGOT), serum 21 U/L 15-37 calcium, serum 8.4 mg/dL 8.5-10.1 bilirubin, serum, total 0.50 mg/dL 0.00-1.00 sodium, serum 141 mmol/L 699-931 9548/12/02 carbon dioxide, venous blood 25.9 mmol/L 21.0-32.0 potassium, serum 4.7 mmol/L 3.5-5.2 chloride, serum 106 mmol/L 98-107 blood glucose 78 mg/dL 65-110 urea nitrogen, blood 24 mg/dL 7-18 creatinine, serum 0.75 mg/dL 0.55-1.30 alanine aminotransferase (SGPT), serum 31 U/L aspartate aminotransferase (SGOT), serum 20 U/L - calcium, serum 8.7 mg/dL 8.5-10.1 bilirubin, serum, total 0.30 mg/dL 0.00-1.00 sodium, serum 139 mmol/L 863-860 5961/12/30 carbon dioxide, venous blood 28.2 mmol/L 21.0-32.0 potassium, serum 3.9 mmol/L 3.5-5.2 chloride, serum 105 mmol/L 98-107 blood glucose 91 mg/dL 65-110 urea nitrogen, blood 17 mg/dL 7-18 creatinine, serum 0.81 mg/dL 0.55-1.30 alanine aminotransferase (SGPT), serum 29 U/L aspartate aminotransferase (SGOT), serum 22 U/L 15-37 calcium, serum 8.8 mg/dL 8.5-10.1 bilirubin, serum, total 0.50 mg/dL 0.00-1.00 sodium, serum 141 mmol/L 766-545 5701/11/11 carbon dioxide, venous blood 26.8 mmol/L 21.0-32.0 potassium, serum 4.2 mmol/L 3.5-5.2 chloride, serum 106 mmol/L 98-107 blood glucose 95 mg/dL 65-110 urea nitrogen, blood 18 mg/dL 7-18 creatinine, serum 0.70 mg/dL 0.55-1.30 alanine aminotransferase (SGPT), serum 33 U/L -78 aspartate aminotransferase (SGOT), serum 22 U/L 15-37 calcium, serum 8.5 mg/dL 8.5-10.1 bilirubin, serum, total 0.30 mg/dL 0.00-1.00 sodium, serum 143 mmol/L 004-776 8569/12/23 carbon dioxide, venous blood 24.6 mmol/L 21.0-32.0 potassium, serum 4.1 mmol/L 3.5-5.2 chloride, serum 107 mmol/L 98-107 blood glucose 98 mg/dL 65-110 urea nitrogen, blood 22 mg/dL 7-18 creatinine, serum 0.77 mg/dL 0.55-1.30 alanine aminotransferase (SGPT), serum 28 U/L -78 aspartate aminotransferase (SGOT), serum 20 U/L 15-37 calcium, serum 8.6 mg/dL 8.5-10.1 bilirubin, serum, total 0.30 mg/dL 0.00-1.00 Lab Report: VITAMIN D, 25-HYDROXY/76403 - Chemistry vitamin D 25-hydroxy, serum 24 ng/mL 30-100 Encounters Code Encounter Date Provider Facility CPT-91396 Level 2 Est. Patient 14:30:43 CHAIN REPAIRER Marta Viramontes [facility] CPT-54113 Level 4 Est. Patient 09:14:36 CHAIN REPAIRER Rikki GRANADOS [facility] CPT-27860 Level 2 Est. Patient 09:07:32 CDT Marta Viramontes MAINTENANCE TECHNICIAN 3RD SHIFT [facility] CPT-52195 Level 4 Est. Patient 11:55:00 CDT Rikki GRANADOS [facility] CPT-91341 Level 3 Est. Patient 13:25:16 CDT Jennifer Chun MD PhD [facility] CPT-84552 Level 3 Est. Patient 17:31:22 CDT Solomon Alamo MD [facility] CPT-65047 Level 3 Est. Patient 08:02:14 CDT Solomon Alamo MD [facility] CPT-10199 Level 3 Est. Patient 17:23:53 CDT Rikki GRANADOS [facility] CPT-52608 Level 3 Est. Patient 11:22:41 CDT Darryn Hearn [facility] Procedures Code Procedure Name Date Entry Date Standard Description CPT-12228 Chest 2V Frontal and Lat 10:57:00 CHAIN REPAIRER CPT-10888 Venipuncture Draw Fee 10:56:59 CHAIN REPAIRER CPT-39284 Venipuncture Draw Fee 09:22:28 CHAIN REPAIRER CPT-19624 Chest 2V Frontal and Lat 09:22:27 CHAIN REPAIRER CPT-I/D I/D Abscess 09:43:13 CDT CPT-42898 Venipuncture Draw Fee 08:16:46 CHAIN REPAIRER CPT-51787 Venipuncture Draw Fee 08:18:55 CHAIN REPAIRER CPT-73097 Venipuncture Draw Fee 08:31:18 CHAIN REPAIRER CPT-38518 Venipuncture Draw Fee 11:42:52 CHAIN REPAIRER CPT-54847 Venipuncture Draw Fee 13:26:37 CHAIN REPAIRER CPT-14184 Venipuncture Draw Fee 09:23:38 CHAIN REPAIRER CPT-000 Give Appropriate Tetanus Booster 10:23:50 CDT CPT-62940 Bone Density 08:28:45 CDT CPT-65811 Bone Density 11:35:15 CDT CPT-PV Prev. Care Visit 12:19:00 CDT CPT-01760 Venipuncture Draw Fee 15:02:58 CDT
--- OUTSIDE RECORDS SUMMARY | 2018-01-19 07:47 | XMS REPORT | Clinical Summary ---
Author Author Admin, E Organization [facility] Address Unknown Phone Unavailable Allergies, Adverse Reactions, Alerts Allergy Name Reaction Description Start Date Severity Status Provider SULFA facial swelling Critical Active Jocelyne Naff ANALYSIS CONSULTANT Conditions or Problems Problem Name Problem Code Onset Date Status Entry Date Provider Comment Standard Description Annotate G E R D 530.81 Active Jocelyne Naff ANALYSIS CONSULTANT Esophageal reflux FH COLON CANCER V16.0 Active Jocelyne Naff ANALYSIS CONSULTANT Family history of malignant neoplasm of gastrointestinal tract ESOPHAGEAL STRICTURE 530.3 Active Darryn Hearn PA Stricture and stenosis of esophagus CAROTID ARTERY STENOSIS, RIGHT 433.10 Active Rikki Stearns PA Occlusion and stenosis of carotid artery, without mention of cerebral infarction HEALTH SCREENING V70.0 Active Rose Darnell ANALYSIS CONSULTANT Routine general medical examination at a health [...] a day as needed 2014 ALBUTEROL SULFATE 32244657585 Active Marta Yokum ELECTROMATIC TYPIST Active TUSSIONEX PENNKINETIC ER 10-8 MG/5ML LQCR 5ml po q12hr PRN Cough HYDROCOD POLST-CHLORPHEN POLST 40181710311 Active Marta Yokum ELECTROMATIC TYPIST Active LEVAQUIN 750 MG TABS 1 po qd x 7 days LEVOFLOXACIN 17385888456 Active Marta Viramontes ELECTROMATIC TYPIST Active FLONASE ALLERGY RELIEF 50 MCG/ACT NASAL SUSP spray twice in each nostril one time daily FLUTICASONE PROPIONATE 03690375752 Active Marta Maganaum ELECTROMATIC TYPIST Active LEVAQUIN 500 MG TAB 1 tablet by mouth daily LEVOFLOXACIN 74971403195 No Longer Active Marta Maganaum ELECTROMATIC TYPIST Active BENZONATATE 200 MG ORAL CAPS One capsule tid. BENZONATATE 24872795639 Active Marta Maganaum ELECTROMATIC TYPIST Active CHERATUSSIN AC 100-10 MG/5ML SYRP 1 tsp by mouth every 4 hours as needed for cough GUAIFENESIN-CODEINE 45129998290 No Longer Active Rikki Harms PA Active MUPIROCIN 2 % EXT OINT Use in each nostril in am and pm MUPIROCIN 14484550146 No Longer Active Rikki Harms PA Active DOXYCYCLINE HYCLATE 100 MG ORAL CAPS Take one bid DOXYCYCLINE HYCLATE 54979826280 No Longer Active Rikki Harms PA Active CLARITIN 10 MG TABS 1prn LORATADINE 00966762444 No Longer Active Jocelyne Naff ANALYSIS CONSULTANT Active ASPIRIN 81 MG TABS 1qd ASPIRIN 05332360333 No Longer Active Jocelyne Naff ANALYSIS CONSULTANT Active DOXYCYCLINE HYCLATE 100 MG CAP 1 cap by mouth twice daily DOXYCYCLINE HYCLATE 87204872709 No Longer Active Rikki Harms PA Active VITAMIN D3 36362 UNIT CAPS 1 pill by mouth weekly, for vitamin D deficiency CHOLECALCIFEROL 94276100848 No Longer Active Jennifer Chun MD PhD Active ANASTROZOLE 1 MG ORAL TABS Take one by mouth daily ANASTROZOLE 17633404571 Active Jennifer Chun MD PhD Active ZITHROMAX 250 MG TAB 2 po today, then 1 po q days 2-5 AZITHROMYCIN 52120268895 No Longer Active Rikki Harms PA Active MECLIZINE HCL 25 MG TABS 1 prn MECLIZINE HCL 73689956433 No Longer Active Solomon Alamo MD Active CHERATUSSIN AC SYRP prn as directed GUAIFENESIN- CODEINE SYRP 55575511039 No Longer Active Rikki Harms PA Active MULTIVITAMINS TABS 1qd MULTIPLE VITAMIN 30320263920 No Longer Active Rikki Harms PA Active OMEPRAZOLE 20 MG CPDR 1 PO Q D OMEPRAZOLE 41505917255 Active Marta Yokum ELECTROMATIC TYPIST Active ZITHROMAX Z-CAROLYN 250 MG TABS 2x1day,7h2affw AZITHROMYCIN 35646306931 No Longer Active Jocelyne Lovell ANALYSIS CONSULTANT Active MULTIVITAMINS TABS 1qd MULTIVITAMINS TABS MULTIPLE VITAMIN Inactive CHERATUSSIN AC SYRP prn as directed CHERATUSSIN AC SYRP GUAIFENESIN-CODEINE SYRP Inactive MECLIZINE HCL 25 MG TABS 1 prn MECLIZINE HCL 25 MG TABS 517907 MECLIZINE HCL Inactive ASPIRIN 81 MG TABS 1qd ASPIRIN 81 MG TABS 786548 ASPIRIN Inactive CLARITIN 10 MG TABS 1prn CLARITIN 10 MG TABS 150451 LORATADINE Inactive DOXYCYCLINE HYCLATE 100 MG ORAL CAPS Take one bid DOXYCYCLINE HYCLATE 100 MG ORAL CAPS 2918091 DOXYCYCLINE HYCLATE Inactive MUPIROCIN 2 % EXT OINT Use in each nostril in am and pm MUPIROCIN 2 % EXT OINT 286307 MUPIROCIN Inactive CHERATUSSIN AC 100-10 MG/5ML SYRP 1 tsp by mouth every 4 hours as needed for cough CHERATUSSIN AC 100-10 MG/5ML SYRP 943770 GUAIFENESIN-CODEINE Inactive LEVAQUIN 500 MG TAB 1 tablet by mouth daily LEVAQUIN 500 MG TAB 540310 LEVOFLOXACIN Inactive ZITHROMAX Z-CAROLYN 250 MG TABS 2x1day,5c0ksyg ZITHROMAX Z-CAROLYN 250 MG TABS 8563091 AZITHROMYCIN Inactive ZITHROMAX 250 MG TAB 2 po today, then 1 po q days 2-5 ZITHROMAX 250 MG TAB 0086694 AZITHROMYCIN Inactive VITAMIN D3 83439 UNIT CAPS 1 pill by mouth weekly, for vitamin D deficiency VITAMIN D3 02918 UNIT CAPS CHOLECALCIFEROL Inactive DOXYCYCLINE HYCLATE 100 MG CAP 1 cap by mouth twice daily DOXYCYCLINE HYCLATE 100 MG CAP 9639207 DOXYCYCLINE HYCLATE Inactive Vital Signs Date Name [...] % 11.6-14.8 platelet count 222 10^3/MM^3 10*3/mm3 087-636 2720/01/07 leukocyte count, blood 11.7 10^3/MM^3 10*3/mm3 4.6-10.2 [...] % 11.6-14.8 platelet count 191 10^3/MM^3 10*3/mm3 981-886 6894/01/20 leukocyte count, blood 9.8 10^3/MM^3 10*3/mm3 4.6-10.2 [...] % 11.6-14.8 platelet count 195 10^3/MM^3 10*3/mm3 689-451 8558/01/28 leukocyte count, blood 11.9 10^3/MM^3 10*3/mm3 4.6-10.2 [...] % 11.6-14.8 platelet count 278 10^3/MM^3 10*3/mm3 009-702 1612/02/04 leukocyte count, blood 8.5 10^3/MM^3 10*3/mm3 4.6-10.2 [...] % 11.6-14.8 platelet count 326 10^3/MM^3 10*3/mm3 345-850 8634/02/10 leukocyte count, blood 2.3 10^3/MM^3 10*3/mm3 4.6-10.2 [...] % 11.6-14.8 platelet count 240 10^3/MM^3 10*3/mm3 916-503 5760/02/17 leukocyte count, blood 3.4 10^3/MM^3 10*3/mm3 4.6-10.2 [...] % 11.6-14.8 platelet count 308 10^3/MM^3 10*3/mm3 029-048 0700/02/25 leukocyte count, blood 6.6 10^3/MM^3 10*3/mm3 4.6-10.2 [...] % 11.6-14.8 platelet count 433 10^3/MM^3 10*3/mm3 428-054 5435/11/18 leukocyte count, blood 8.5 10^3/MM^3 10*3/mm3 4.6-10.2 [...] % 11.6-14.8 platelet count 143 10^3/MM^3 10*3/mm3 187-044 9642/11/25 leukocyte count, blood 2.1 10^3/MM^3 10*3/mm3 4.6-10.2 [...] % 11.6-14.8 platelet count 139 10^3/MM^3 10*3/mm3 666-864 0086/12/02 leukocyte count, blood 6.7 10^3/MM^3 10*3/mm3 4.6-10.2 [...] % 11.6-14.8 platelet count 258 10^3/MM^3 10*3/mm3 066-804 5577/12/09 leukocyte count, blood 5.3 10^3/MM^3 10*3/mm3 4.6-10.2 [...] % 11.6-14.8 platelet count 240 10^3/MM^3 10*3/mm3 316-399 9822/12/16 leukocyte count, blood 3.2 10^3/MM^3 10*3/mm3 4.6-10.2 [...] % 11.6-14.8 platelet count 158 10^3/MM^3 10*3/mm3 535-532 0160/12/18 leukocyte count, blood 8.8 10^3/MM^3 10*3/mm3 4.6-10.2 [...] % 11.6-14.8 platelet count 207 10^3/MM^3 10*3/mm3 165-539 7750/12/23 leukocyte count, blood 6.2 10^3/MM^3 10*3/mm3 4.6-10.2 [...] % 11.6-14.8 platelet count 183 10^3/MM^3 10*3/mm3 028-941 2414/11/11 leukocyte count, blood 2.0 10^3/MM^3 10*3/mm3 4.6-10.2 [...] % 11.6-14.8 platelet count 203 10^3/MM^3 10*3/mm3 907-534 0446/12/30 leukocyte count, blood 5.2 10^3/MM^3 10*3/mm3 4.6-10.2 [...] Panel - Chemistry sodium, serum 138 mmol/L 172-371 1411/11/04 carbon dioxide, venous blood 27.7 mmol/L 21.0-32.0 potassium, serum 4.9 mmol/L 3.5-5.2 chloride, serum 104 mmol/L 98-107 blood glucose 92 mg/dL 65-110 urea nitrogen, blood 24 mg/dL 7-18 creatinine, serum 0.95 mg/dL 0.55-1.30 alanine aminotransferase (SGPT), serum 34 U/L 12-78 aspartate aminotransferase (SGOT), serum 23 U/L 15-37 calcium, serum 8.9 mg/dL 8.5-10.1 bilirubin, serum, total 0.70 mg/dL 0.00-1.00 sodium, serum 141 mmol/L 125-420 0735/01/14 potassium, serum 4.9 mmol/L 3.5-5.2 chloride, serum [...] % 11.6-14.8 platelet count 216 10^3/MM^3 10*3/mm3 995-497 2727/01/14 leukocyte count, blood 6.7 10^3/MM^3 10*3/mm3 4.6-10.2 [...] Panel - Chemistry sodium, serum 140 mmol/L 730-830 3940/07/13 potassium, serum 4.5 mmol/L 3.5-5.2 chloride, serum 106 mmol/L 98-107 carbon dioxide, venous blood 27.7 mmol/L 21.0-32.0 blood glucose 105 mg/dL 65-110 urea nitrogen, blood 14 mg/dL 7-18 creatinine, serum 0.90 mg/dL 0.60-1.30 alanine aminotransferase (SGPT), serum 29 U/L 12-78 aspartate aminotransferase (SGOT), serum 22 U/L 15-37 calcium, serum 9.4 mg/dL 8.5-10.1 bilirubin, serum, total 0.70 mg/dL 0.00-1.00 cholesterol, serum 160 mg/dL 677-529 1571/07/13 triglyceride, serum, fasting 63 mg/dL 30-200 [...] Panel - Chemistry sodium, serum 141 mmol/L 517-843 1262/02/10 potassium, serum 5.2 mmol/L 3.5-5.2 chloride, serum 106 mmol/L 98-107 carbon dioxide, venous blood 27.8 mmol/L 21.0-32.0 blood glucose 111 mg/dL 65-110 urea nitrogen, blood 18 mg/dL 7-18 creatinine, serum 0.90 mg/dL 0.60-1.30 alanine aminotransferase (SGPT), serum 29 U/L 12-78 aspartate aminotransferase (SGOT), serum 21 U/L 15-37 calcium, serum 8.3 mg/dL 8.5-10.1 bilirubin, serum, total 0.40 mg/dL 0.00-1.00 sodium, serum 143 mmol/L 168-250 2313/12/23 carbon dioxide, venous blood 24.6 mmol/L 21.0-32.0 potassium, serum 4.1 mmol/L 3.5-5.2 chloride, serum 107 mmol/L 98-107 blood glucose 98 mg/dL 65-110 urea nitrogen, blood 22 mg/dL 7-18 creatinine, serum 0.77 mg/dL 0.55-1.30 alanine aminotransferase (SGPT), serum 28 U/L 78 aspartate aminotransferase (SGOT), serum 20 U/L 15-37 calcium, serum 8.6 mg/dL 8.5-10.1 bilirubin, serum, total 0.30 mg/dL 0.00-1.00 sodium, serum 142 mmol/L 779-630 6908/12/09 carbon dioxide, venous blood 28.5 mmol/L 21.0-32.0 potassium, serum 5.0 mmol/L 3.5-5.2 chloride, serum 109 mmol/L 98-107 blood glucose 91 mg/dL 65-110 urea nitrogen, blood 27 mg/dL 7-18 creatinine, serum 0.88 mg/dL 0.55-1.30 alanine aminotransferase (SGPT), serum 31 U/L 78 aspartate aminotransferase (SGOT), serum 18 U/L 15-37 calcium, serum 8.9 mg/dL 8.5-10.1 bilirubin, serum, total 0.40 mg/dL 0.00-1.00 sodium, serum 140 mmol/L 026-919 5258/12/16 carbon dioxide, venous blood 25.4 mmol/L 21.0-32.0 potassium, serum 4.1 mmol/L 3.5-5.2 chloride, serum 104 mmol/L 98-107 blood glucose 110 mg/dL 65-110 urea nitrogen, blood 24 mg/dL 7-18 creatinine, serum 0.87 mg/dL 0.55-1.30 alanine aminotransferase (SGPT), serum 35 U/L aspartate aminotransferase (SGOT), serum 21 U/L 15-37 calcium, serum 8.4 mg/dL 8.5-10.1 bilirubin, serum, total 0.50 mg/dL 0.00-1.00 sodium, serum 141 mmol/L 903-068 7538/12/02 carbon dioxide, venous blood 25.9 mmol/L 21.0-32.0 potassium, serum 4.7 mmol/L 3.5-5.2 chloride, serum 106 mmol/L 98-107 blood glucose 78 mg/dL 65-110 urea nitrogen, blood 24 mg/dL 7- creatinine, serum 0.75 mg/dL 0.55-1.30 alanine aminotransferase (SGPT), serum 31 U/L aspartate aminotransferase (SGOT), serum 20 U/L 15-37 calcium, serum 8.7 mg/dL 8.5-10.1 bilirubin, serum, total 0.30 mg/dL 0.00-1.00 sodium, serum 141 mmol/L 773-596 9498/11/18 carbon dioxide, venous blood 26.2 mmol/L 21.0-32.0 potassium, serum 4.4 mmol/L 3.5-5.2 chloride, serum 106 mmol/L 98-107 blood glucose 102 mg/dL 65-110 urea nitrogen, blood 24 mg/dL 7-18 creatinine, serum 0.77 mg/dL 0.55-1.30 alanine aminotransferase (SGPT), serum 30 U/L aspartate aminotransferase (SGOT), serum 15 U/L - calcium, serum 8.3 mg/dL 8.5-10.1 bilirubin, serum, total 0.30 mg/dL 0.00-1.00 sodium, serum 139 mmol/L 465-326 5519/11/25 carbon dioxide, venous blood 27.9 mmol/L 21.0-32.0 potassium, serum 4.7 mmol/L 3.5-5.2 chloride, serum 105 mmol/L 98-107 blood glucose 94 mg/dL 65-110 urea nitrogen, blood 21 mg/dL 7-18 creatinine, serum 0.79 mg/dL 0.55-1.30 alanine aminotransferase (SGPT), serum 40 U/L -78 aspartate aminotransferase (SGOT), serum 22 U/L 15-37 calcium, serum 8.5 mg/dL 8.5-10.1 bilirubin, serum, total 0.80 mg/dL 0.00-1.00 sodium, serum 139 mmol/L 233-836 9626/12/30 carbon dioxide, venous blood 28.2 mmol/L 21.0-32.0 potassium, serum 3.9 mmol/L 3.5-5.2 chloride, serum 105 mmol/L 98-107 blood glucose 91 mg/dL 65-110 urea nitrogen, blood 17 mg/dL 7-18 creatinine, serum 0.81 mg/dL 0.55-1.30 alanine aminotransferase (SGPT), serum 29 U/L 78 aspartate aminotransferase (SGOT), serum 22 U/L 15-37 calcium, serum 8.8 mg/dL 8.5-10.1 bilirubin, serum, total 0.50 mg/dL 0.00-1.00 sodium, serum 141 mmol/L 112-574 0803/11/11 carbon dioxide, venous blood 26.8 mmol/L 21.0-32.0 potassium, serum 4.2 mmol/L 3.5-5.2 chloride, serum 106 mmol/L 98-107 blood glucose 95 mg/dL 65-110 urea nitrogen, blood 18 mg/dL 7-18 creatinine, serum 0.70 mg/dL 0.55-1.30 alanine aminotransferase (SGPT), serum 33 U/L 12-78 aspartate aminotransferase (SGOT), serum 22 U/L 15-37 calcium, serum 8.5 mg/dL 8.5-10.1 bilirubin, serum, total 0.30 mg/dL 0.00-1.00 Lab Report: VITAMIN D, 25-HYDROXY/39264 - Chemistry vitamin D 25-hydroxy, serum 24 ng/mL 30-100 Encounters Code Encounter Date Provider Facility CPT-71999 Level 2 Est. Patient 14:30:43 CURRICULUM AND INSTRUCTION DIRECTOR [facility] Level 4 Est. Patient 09:14:36 CURRICULUM AND INSTRUCTION DIRECTOR Rikki GRANADOS [facility] CPT-16522 Level 2 Est. Patient 09:07:32 CDT Marta Viramontes [facility] CPT-54108 Level 4 Est. Patient 11:55:00 CDT Rikki GRANADOS [facility] CPT-33308 Level 3 Est. Patient 13:25:16 CDT Jennifer Chun MD PhD [facility] CPT-14315 Level 3 Est. Patient 17:31:22 CDT Solomon Alamo MD [facility] CPT-93172 Level 3 Est. Patient 08:02:14 CDT Solomon Alamo MD [facility] CPT-44644 Level 3 Est. Patient 17:23:53 CDT Rikki GRANADOS [facility] CPT-54889 Level 3 Est. Patient 11:22:41 CDT Darryn Hearn [facility] Procedures Code Procedure Name Date Entry Date Standard Description CPT-70949 Venipuncture Draw Fee 09:22:28 CURRICULUM AND INSTRUCTION DIRECTOR CPT-41194 Chest 2V Frontal and Lat 09:22:27 CURRICULUM AND INSTRUCTION DIRECTOR CPT-I/D I/D Abscess 09:43:13 CDT CPT-64016 Venipuncture Draw Fee 08:16:46 CURRICULUM AND INSTRUCTION DIRECTOR CPT-41129 Venipuncture Draw Fee 08:18:55 CURRICULUM AND INSTRUCTION DIRECTOR CPT-01963 Venipuncture Draw Fee 08:31:18 CURRICULUM AND INSTRUCTION DIRECTOR CPT-20290 Venipuncture Draw Fee 11:42:52 CURRICULUM AND INSTRUCTION DIRECTOR CPT-83418 Venipuncture Draw Fee 13:26:37 CURRICULUM AND INSTRUCTION DIRECTOR CPT-40638 Venipuncture Draw Fee 09:23:38 CURRICULUM AND INSTRUCTION DIRECTOR CPT-000 Give Appropriate Tetanus Booster 10:23:50 CDT CPT-10908 Bone Density 08:28:45 CDT CPT-50587 Bone Density 11:35:15 CDT CPT-PV Prev. Care Visit 12:19:00 CDT CPT-33889 Venipuncture Draw Fee 15:02:58 CDT
--- OUTSIDE RECORDS SUMMARY | 2018-01-19 07:48 | XMS REPORT | Clinical Summary ---
Author Author Admin, E Organization [facility] Address Unknown Phone Unavailable Allergies, Adverse Reactions, Alerts Allergy Name Reaction Description Start Date Severity Status Provider SULFA facial swelling Critical Active Jocelyne Naff PUMP STITCHER Conditions or Problems Problem Name Problem Code Onset Date Status Entry Date Provider Comment Standard Description Annotate G E R D 530.81 Active Jocelyne Naff PUMP STITCHER Esophageal reflux FH COLON CANCER V16.0 Active Jocelyne Naff PUMP STITCHER Family history of malignant neoplasm of gastrointestinal [...] Instruction CLARITIN 10 MG TABS 1prn LORATADINE 80421672207 No Longer Active Jocelyne Naff PUMP STITCHER Active ASPIRIN 81 MG TABS 1qd ASPIRIN 66233040306 No Longer Active Jocelyne Naff PUMP STITCHER Active DOXYCYCLINE HYCLATE 100 MG ORAL CAPS Take one bid DOXYCYCLINE HYCLATE 56787011288 Active Jocelyne Naff PUMP STITCHER Active DOXYCYCLINE HYCLATE 100 MG CAP 1 cap by mouth twice daily DOXYCYCLINE HYCLATE 01798935708 No Longer Active Rikki GRANADOS Active VITAMIN D3 59269 UNIT CAPS 1 pill by mouth weekly, for vitamin D deficiency CHOLECALCIFEROL 71727435439 Active Jennifer Chun MD PhD Active ANASTROZOLE 1 MG ORAL TABS Take one by mouth daily ANASTROZOLE 28761843387 Active Jennifer Chun MD PhD Active ZITHROMAX 250 MG TAB 2 po today, then 1 po q days 2-5 AZITHROMYCIN 86678635659 No Longer Active Rikki GRANADOS Active MECLIZINE HCL 25 MG TABS 1 prn MECLIZINE HCL 07154914934 No Longer Active Solomon Alamo MD Active CHERATUSSIN AC SYRP prn as directed GUAIFENESIN- CODEINE SYRP 85963197761 No Longer Active Rikki Harms PA Active MULTIVITAMINS TABS 1qd MULTIPLE VITAMIN 92910889891 No Longer Active Rikki Harms PA Active OMEPRAZOLE 20 MG CPDR 1 PO Q D OMEPRAZOLE 61924106380 Active Rikki Harms PA Active ZITHROMAX Z-CAROLYN 250 MG TABS 2x1day,3c1bupi AZITHROMYCIN 44963603221 No Longer Active Jocelyne Liliya PUMP STITCHER Active MULTIVITAMINS TABS 1qd MULTIVITAMINS TABS MULTIPLE VITAMIN Inactive CHERATUSSIN AC SYRP prn as directed CHERATUSSIN AC SYRP GUAIFENESIN-CODEINE SYRP Inactive MECLIZINE HCL 25 MG TABS 1 prn MECLIZINE HCL 25 MG TABS 463389 MECLIZINE HCL Inactive ASPIRIN 81 MG TABS 1qd ASPIRIN 81 MG TABS 344358 ASPIRIN Inactive CLARITIN 10 MG TABS 1prn CLARITIN 10 MG TABS 144715 LORATADINE Inactive ZITHROMAX Z-CAROLYN 250 MG TABS 2x1day,6v4jhto ZITHROMAX Z-CAROLYN 250 MG TABS 4813379 AZITHROMYCIN Inactive ZITHROMAX 250 MG TAB 2 po today, then 1 po q days 2-5 ZITHROMAX 250 MG TAB 2341701 AZITHROMYCIN Inactive DOXYCYCLINE HYCLATE 100 MG CAP 1 cap by mouth twice daily DOXYCYCLINE HYCLATE 100 MG CAP 1049258 DOXYCYCLINE HYCLATE Inactive Vital Signs Date Name [...] % 11.6-14.8 platelet count 131 10^3/MM^3 10*3/mm3 980-411 6813/12/12 leukocyte count, blood 28.6 10^3/MM^3 10*3/mm3 4.6-10.2 [...] % 11.6-14.8 platelet count 237 10^3/MM^3 10*3/mm3 109-426 8283/12/23 leukocyte count, blood 6.9 10^3/MM^3 10*3/mm3 4.6-10.2 [...] % 11.6-14.8 platelet count 360 10^3/MM^3 10*3/mm3 786-994 4813/12/31 leukocyte count, blood 5.3 10^3/MM^3 10*3/mm3 4.6-10.2 [...] % 11.6-14.8 platelet count 222 10^3/MM^3 10*3/mm3 770-101 8225/01/07 leukocyte count, blood 11.7 10^3/MM^3 10*3/mm3 4.6-10.2 [...] % 11.6-14.8 platelet count 191 10^3/MM^3 10*3/mm3 088-704 8777/01/20 leukocyte count, blood 9.8 10^3/MM^3 10*3/mm3 4.6-10.2 [...] % 11.6-14.8 platelet count 195 10^3/MM^3 10*3/mm3 166-828 6148/01/28 leukocyte count, blood 11.9 10^3/MM^3 10*3/mm3 4.6-10.2 [...] % 11.6-14.8 platelet count 278 10^3/MM^3 10*3/mm3 055-286 5764/02/04 leukocyte count, blood 8.5 10^3/MM^3 10*3/mm3 4.6-10.2 [...] % 11.6-14.8 platelet count 326 10^3/MM^3 10*3/mm3 136-580 4847/02/10 leukocyte count, blood 2.3 10^3/MM^3 10*3/mm3 4.6-10.2 [...] % 11.6-14.8 platelet count 240 10^3/MM^3 10*3/mm3 505-482 5324/02/17 leukocyte count, blood 3.4 10^3/MM^3 10*3/mm3 4.6-10.2 [...] % 11.6-14.8 platelet count 308 10^3/MM^3 10*3/mm3 930-062 3267/02/25 leukocyte count, blood 6.6 10^3/MM^3 10*3/mm3 4.6-10.2 [...] Panel - Chemistry sodium, serum 144 mmol/L 972-565 8926/12/16 potassium, serum 4.5 mmol/L 3.5-5.2 chloride, serum 107 mmol/L 98-107 carbon dioxide, venous blood 31.4 mmol/L 21.0-32.0 blood glucose 104 mg/dL 65-110 urea nitrogen, blood 17 mg/dL 7-18 creatinine, serum 1.10 mg/dL 0.60-1.30 alanine aminotransferase (SGPT), serum 25 U/L 12-78 aspartate aminotransferase (SGOT), serum 24 U/L 15-37 calcium, serum 8.4 mg/dL 8.5-10.1 bilirubin, serum, total 0.20 mg/dL 0.00-1.00 sodium, serum 141 mmol/L 141-690 1613/01/14 potassium, serum 4.9 mmol/L 3.5-5.2 chloride, serum [...] % 11.6-14.8 platelet count 376 10^3/MM^3 10*3/mm3 402-830 6094/12/16 leukocyte count, blood 19.5 10^3/MM^3 10*3/mm3 4.6-10.2 [...] Panel - Chemistry sodium, serum 140 mmol/L 862-682 3027/07/13 potassium, serum 4.5 mmol/L 3.5-5.2 chloride, serum 106 mmol/L 98-107 carbon dioxide, venous blood 27.7 mmol/L 21.0-32.0 blood glucose 105 mg/dL 65-110 urea nitrogen, blood 14 mg/dL 7-18 creatinine, serum 0.90 mg/dL 0.60-1.30 alanine aminotransferase (SGPT), serum 29 U/L 12-78 aspartate aminotransferase (SGOT), serum 22 U/L 15-37 calcium, serum 9.4 mg/dL 8.5-10.1 bilirubin, serum, total 0.70 mg/dL 0.00-1.00 cholesterol, serum 160 mg/dL 279-404 1903/07/13 triglyceride, serum, fasting 63 mg/dL 30-200 HDL [...] Panel - Chemistry sodium, serum 141 mmol/L 821-948 7310/02/10 potassium, serum 5.2 mmol/L 3.5-5.2 chloride, serum 106 mmol/L 98-107 carbon dioxide, venous blood 27.8 mmol/L 21.0-32.0 blood glucose 111 mg/dL 65-110 urea nitrogen, blood 18 mg/dL 7-18 creatinine, serum 0.90 mg/dL 0.60-1.30 alanine aminotransferase (SGPT), serum 29 U/L 12-78 aspartate aminotransferase (SGOT), serum 21 U/L 15-37 calcium, serum 8.3 mg/dL 8.5-10.1 bilirubin, serum, total 0.40 mg/dL 0.00-1.00 Lab Report: VITAMIN D, 25-HYDROXY/35057 - Chemistry vitamin D 25-hydroxy, serum 24 ng/mL 30-100 Encounters Code Encounter Date Provider Facility CPT-24207 Level 4 Est. Patient 11:55:00 CDT Rikki Stearns [facility] CPT-11064 Level 3 Est. Patient 13:25:16 CDT Jennifer Chun MD [facility] CPT-90106 Level 3 Est. Patient 17:31:22 CDT Solomon Alamo MD [facility] CPT-66379 Level 3 Est. Patient 08:02:14 CDT Solomon Alamo MD [facility] CPT-23915 Level 3 Est. Patient 17:23:53 CDT Rikki Stearns [facility] CPT-84211 Level 3 Est. Patient 11:22:41 CDT Darryn Hearn [facility] Procedures Code Procedure Name Date Entry Date Standard Description CPT-I/D I/D Abscess 09:43:13 CDT CPT-92220 Venipuncture Draw Fee 08:16:46 TELEPHONE INTERVIEWER CPT-86837 Venipuncture Draw Fee 08:18:55 TELEPHONE INTERVIEWER CPT-10821 Venipuncture Draw Fee 08:31:18 TELEPHONE INTERVIEWER CPT-94082 Venipuncture Draw Fee 11:42:52 TELEPHONE INTERVIEWER CPT-64861 Venipuncture Draw Fee 13:26:37 TELEPHONE INTERVIEWER CPT-44136 Venipuncture Draw Fee 09:23:38 TELEPHONE INTERVIEWER CPT-000 Give Appropriate Tetanus Booster 10:23:50 CDT CPT-99092 Bone Density 08:28:45 CDT CPT-51720 Bone Density 11:35:15 CDT CPT-PV Prev. Care Visit 12:19:00 CDT CPT-59649 Venipuncture Draw Fee 15:02:58 CDT
--- OUTSIDE RECORDS SUMMARY | 2018-01-19 07:48 | XMS REPORT | Clinical Summary ---
Author Author Admin, E Organization [facility] Address Unknown Phone Unavailable Allergies, Adverse Reactions, Alerts Allergy Name Reaction Description Start Date Severity Status Provider SULFA facial swelling Critical Active Jocelyne Naff [employer] Conditions or Problems Problem Name Problem Code Onset Date Status Entry Date Provider Comment Standard Description Annotate G E R D 530.81 Active Jocelyne Naff [employer] Esophageal reflux FH COLON CANCER V16.0 Active Jocelyne Naff [employer] Family history of malignant neoplasm of gastrointestinal [...] each nostril in am and pm MUPIROCIN 21268247958 Active Jocelyne Naff [employer] Active CLARITIN 10 MG TABS 1prn LORATADINE 57279737880 No Longer Active Jocelyne Naff [employer] Active ASPIRIN 81 MG TABS 1qd ASPIRIN 85474538384 No Longer Active Jocelyne Naff [employer] Active DOXYCYCLINE HYCLATE 100 MG ORAL CAPS Take one bid DOXYCYCLINE HYCLATE 24530203763 Active Jocelyne Naff [employer] Active DOXYCYCLINE HYCLATE 100 MG CAP 1 cap by mouth twice daily DOXYCYCLINE HYCLATE 15082876078 No Longer Active Rikki GRANADOS Active VITAMIN D3 68679 UNIT CAPS 1 pill by mouth weekly, for vitamin D deficiency CHOLECALCIFEROL 80761772608 Active Jennifer Chun MD PhD Active ANASTROZOLE 1 MG ORAL TABS Take one by mouth daily ANASTROZOLE 47384528450 Active Jennifer Chun MD PhD Active ZITHROMAX 250 MG TAB 2 po today, then 1 po q days 2-5 AZITHROMYCIN 54967668821 No Longer Active Rikki GRANADOS Active MECLIZINE HCL 25 MG TABS 1 prn MECLIZINE HCL 62232245908 No Longer Active Solomon Alamo MD Active CHERATUSSIN AC SYRP prn as directed GUAIFENESIN- CODEINE SYRP 08975963354 No Longer Active Rikki Harms PA Active MULTIVITAMINS TABS 1qd MULTIPLE VITAMIN 04546251228 No Longer Active Rikki Harms PA Active OMEPRAZOLE 20 MG CPDR 1 PO Q D OMEPRAZOLE 97065490533 Active Rikki Harms PA Active ZITHROMAX Z-CAROLYN 250 MG TABS 2x1day,[id number] AZITHROMYCIN 73953821863 No Longer Active Jocelyne Naff [employer] Active MULTIVITAMINS TABS 1qd MULTIVITAMINS TABS MULTIPLE VITAMIN Inactive CHERATUSSIN AC SYRP prn as directed CHERATUSSIN AC SYRP GUAIFENESIN-CODEINE SYRP Inactive MECLIZINE HCL 25 MG TABS 1 prn MECLIZINE HCL 25 MG TABS 858169 MECLIZINE HCL Inactive ASPIRIN 81 MG TABS 1qd ASPIRIN 81 MG TABS 390514 ASPIRIN Inactive CLARITIN 10 MG TABS 1prn CLARITIN 10 MG TABS 193698 LORATADINE Inactive ZITHROMAX Z-CAROLYN 250 MG TABS 2x1day,[id number] ZITHROMAX Z-CAROLYN 250 MG TABS 5008081 AZITHROMYCIN Inactive ZITHROMAX 250 MG TAB 2 po today, then 1 po q days 2-5 ZITHROMAX 250 MG TAB 4584596 AZITHROMYCIN Inactive DOXYCYCLINE HYCLATE 100 MG CAP 1 cap by mouth twice daily DOXYCYCLINE HYCLATE 100 MG CAP 3858662 DOXYCYCLINE HYCLATE Inactive Vital Signs Date Name [...] Report: CBC W/DIFF - Hematology hemoglobin, blood 14.8 g/dL 12.0-16.0 hematocrit, blood 44.3 % 36.0-46.0 mean corpuscular volume, RBC 90 fL 80-97 mean corpuscular hemoglobin, RBC 30.1 pg 27.0-31.2 mean corpuscular hemoglobin concentration, RBC 33.5 G/DL % 31.8- 35.4 red blood cell distribution width 14.5 % 11.6-14.8 platelet count 131 10^3/MM^3 10*3/mm3 098-050 1696/12/10 erythrocyte (RBC) count 4.93 10^6/MM^3 10*6/mm3 4.04-5.48 [...] % 11.6-14.8 platelet count 237 10^3/MM^3 10*3/mm3 178-541 2729/12/12 neutrophils as percent of blood leukocytes 19.0 % 42.2-75.2 monocytes as percent of blood leukocytes 54.1 % 1.7-9.3 lymphocytes as percent of blood leukocytes 20.4 % 20.5-51.1 erythrocyte (RBC) count 5.08 10^6/MM^3 10*6/mm3 4.04-5.48 hemoglobin, blood 15.2 g/dL 12.0-16.0 leukocyte count, blood 6.9 10^3/MM^3 10*3/mm3 4.6-10.2 hematocrit, blood 39.0 % 36.0-46.0 mean corpuscular volume, RBC 90 fL 80-97 mean corpuscular hemoglobin, RBC 30.5 pg 27.0-31.2 mean corpuscular hemoglobin concentration, RBC 33.9 G/DL % 31.8- 35.4 red blood cell distribution width 14.4 % 11.6-14.8 platelet count 360 10^3/MM^3 10*3/mm3 692-327 1073/12/23 neutrophils as percent of blood leukocytes 57.3 % 42.2-75.2 monocytes as percent of blood leukocytes 8.6 % 1.7-9.3 lymphocytes as percent of blood leukocytes 30.4 % 20.5-51.1 erythrocyte (RBC) count 4.35 10^6/MM^3 10*6/mm3 4.04-5.48 hemoglobin, blood 13.2 g/dL 12.0-16.0 leukocyte count, blood 5.3 10^3/MM^3 10*3/mm3 4.6-10.2 hematocrit, blood 39.4 % 36.0-46.0 mean corpuscular volume, RBC 90 fL 80-97 mean corpuscular hemoglobin, RBC 29.8 pg 27.0-31.2 mean corpuscular hemoglobin concentration, RBC 33.0 G/DL % 31.8- 35.4 red blood cell distribution width 14.9 % 11.6-14.8 platelet count 222 10^3/MM^3 10*3/mm3 954-576 8646/12/31 neutrophils as percent of blood leukocytes 8.8 % 42.2-75.2 monocytes as percent of blood leukocytes 43.6 % 1.7-9.3 lymphocytes as percent of blood leukocytes 37.1 % 20.5-51.1 erythrocyte (RBC) count 4.37 10^6/MM^3 10*6/mm3 4.04-5.48 hemoglobin, blood 13.0 g/dL 12.0-16.0 leukocyte count, blood 11.7 10^3/MM^3 10*3/mm3 4.6-10.2 hematocrit, blood 41.2 % 36.0-46.0 mean corpuscular volume, RBC 90 fL 80-97 mean corpuscular hemoglobin, RBC 29.7 pg 27.0-31.2 mean corpuscular hemoglobin concentration, RBC 32.9 G/DL % 31.8- 35.4 red blood cell distribution width 15.5 % 11.6-14.8 platelet count 191 10^3/MM^3 10*3/mm3 277-450 6060/01/07 neutrophils as percent of blood leukocytes 67.9 [...] % 11.6-14.8 platelet count 195 10^3/MM^3 10*3/mm3 954-613 4347/01/20 neutrophils as percent of blood leukocytes 78.4 [...] % 11.6-14.8 platelet count 278 10^3/MM^3 10*3/mm3 809-690 0337/02/04 leukocyte count, blood 8.5 10^3/MM^3 10*3/mm3 4.6-10.2 [...] % 11.6-14.8 platelet count 326 10^3/MM^3 10*3/mm3 765-587 7919/01/28 neutrophils as percent of blood leukocytes 53.5 [...] % 11.6-14.8 platelet count 240 10^3/MM^3 10*3/mm3 246-393 8960/02/10 neutrophils as percent of blood leukocytes 63.7 [...] % 11.6-14.8 platelet count 308 10^3/MM^3 10*3/mm3 709-931 7429/02/25 leukocyte count, blood 6.6 10^3/MM^3 10*3/mm3 4.6-10.2 hematocrit, blood 36.9 % 36.0-46.0 mean corpuscular volume, RBC 92 fL 80-97 mean corpuscular hemoglobin, RBC 30.5 pg 27.0-31.2 mean corpuscular hemoglobin concentration, RBC 33.2 G/DL % 31.8- 35.4 red blood cell distribution width 19.2 % 11.6-14.8 platelet count 433 10^3/MM^3 10*3/mm3 463-269 9007/02/25 neutrophils as percent of blood leukocytes 61.9 % 42.2-75.2 monocytes as percent of blood leukocytes 8.9 % 1.7-9.3 lymphocytes as percent of blood leukocytes 27.4 % 20.5-51.1 erythrocyte (RBC) count 4.02 10^6/MM^3 10*6/mm3 4.04-5.48 hemoglobin, blood 12.2 g/dL 12.0-16.0 Lab Report: CBC W/DIFF, Comp. Metabolic Panel - Chemistry sodium, serum 144 mmol/L 677-929 3984/12/16 potassium, serum 4.5 mmol/L 3.5-5.2 chloride, serum 107 mmol/L 98-107 carbon dioxide, venous blood 31.4 mmol/L 21.0-32.0 blood glucose 104 mg/dL 65-110 urea nitrogen, blood 17 mg/dL 7-18 creatinine, serum 1.10 mg/dL 0.60-1.30 alanine aminotransferase (SGPT), serum 25 U/L 12-78 aspartate aminotransferase (SGOT), serum 24 U/L 15-37 calcium, serum 8.4 mg/dL 8.5-10.1 bilirubin, serum, total 0.20 mg/dL 0.00-1.00 sodium, serum 141 mmol/L 010-662 0577/01/14 potassium, serum 4.9 mmol/L 3.5-5.2 chloride, serum [...] 10*6/mm3 4.04-5.48 hemoglobin, blood 14.0 g/dL 12.0-16.0 leukocyte count, blood 19.5 10^3/MM^3 10*3/mm3 4.6-10.2 hematocrit, blood 42.8 % 36.0-46.0 mean corpuscular volume, RBC 90 fL 80-97 mean corpuscular hemoglobin, RBC 29.6 pg 27.0-31.2 mean corpuscular hemoglobin concentration, RBC 32.8 G/DL % 31.8- 35.4 red blood cell distribution width 14.4 % 11.6-14.8 platelet count 239 10^3/MM^3 10*3/mm3 243-777 7475/01/14 leukocyte count, blood 6.7 10^3/MM^3 10*3/mm3 4.6-10.2 [...] Panel - Chemistry sodium, serum 140 mmol/L 304-912 1679/07/13 potassium, serum 4.5 mmol/L 3.5-5.2 chloride, serum 106 mmol/L 98-107 carbon dioxide, venous blood 27.7 mmol/L 21.0-32.0 blood glucose 105 mg/dL 65-110 urea nitrogen, blood 14 mg/dL 7-18 creatinine, serum 0.90 mg/dL 0.60-1.30 alanine aminotransferase (SGPT), serum 29 U/L 12-78 aspartate aminotransferase (SGOT), serum 22 U/L 15-37 calcium, serum 9.4 mg/dL 8.5-10.1 bilirubin, serum, total 0.70 mg/dL 0.00-1.00 cholesterol, serum 160 mg/dL 893-097 2806/07/13 triglyceride, serum, fasting 63 mg/dL 30-200 HDL [...] Lab Report: Comp. Metabolic Panel - Chemistry potassium, serum 5.2 mmol/L 3.5-5.2 chloride, serum 106 mmol/L 98-107 carbon dioxide, venous blood 27.8 mmol/L 21.0-32.0 blood glucose 111 mg/dL 65-110 urea nitrogen, blood 18 mg/dL 7-18 sodium, serum 141 mmol/L 091-796 4569/02/10 creatinine, serum 0.90 mg/dL 0.60-1.30 alanine aminotransferase (SGPT), serum 29 U/L 12-78 aspartate aminotransferase (SGOT), serum 21 U/L 15-37 calcium, serum 8.3 mg/dL 8.5-10.1 bilirubin, serum, total 0.40 mg/dL 0.00-1.00 Lab Report: VITAMIN D, 25-HYDROXY/39118 - Chemistry vitamin D 25-hydroxy, serum 24 ng/mL 30-100 Encounters Code Encounter Date Provider Facility CPT-33049 Level 4 Est. Patient 11:55:00 CDT Rikki GRANADOS [facility] CPT-01558 Level 3 Est. Patient 13:25:16 CDT Jennifer Chun MD [facility] CPT-11929 Level 3 Est. Patient 17:31:22 CDT Solomon Alamo MD [facility] CPT-87213 Level 3 Est. Patient 08:02:14 CDT Solomon Alamo MD [facility] CPT-78955 Level 3 Est. Patient 17:23:53 CDT Rikki GRANADOS [facility] CPT-37177 Level 3 Est. Patient 11:22:41 CDT Darryn Hearn [facility] Procedures Code Procedure Name Date Entry Date Standard Description CPT-I/D I/D Abscess 09:43:13 CDT CPT-71323 Venipuncture Draw Fee 08:16:46 [employer] CPT-82228 Venipuncture Draw Fee 08:18:55 [employer] CPT-55523 Venipuncture Draw Fee 08:31:18 [employer] CPT-28816 Venipuncture Draw Fee 11:42:52 [employer] CPT-54977 Venipuncture Draw Fee 13:26:37 [employer]OR [employer] CPT-50296 Venipuncture Draw Fee 09:23:38 [employer]OR [employer] CPT-000 Give Appropriate Tetanus Booster 10:23:50 CDT CPT-57991 Bone Density 08:28:45 CDT CPT-92778 Bone Density 11:35:15 CDT CPT-PV Prev. Care Visit 12:19:00 CDT CPT-86410 Venipuncture Draw Fee 15:02:58 CDT
--- OUTSIDE RECORDS SUMMARY | 2018-01-19 07:49 | XMS REPORT | Clinical Summary ---
Author Author Admin, E Organization [facility] Address Unknown Phone Unavailable Allergies, Adverse Reactions, Alerts Allergy Name Reaction Description Start Date Severity Status Provider SULFA facial swelling Critical Active Jocelyne Naff [employer] Conditions or Problems Problem Name Problem Code Onset Date Status Entry Date Provider Comment Standard Description Annotate G E R D 530.81 Active Jocelyne Naff [employer] Esophageal reflux FH COLON CANCER V16.0 Active Jocelyne Naff [employer] Family history of malignant neoplasm of [...] Ingrown toenail, left 703.0 Resolved Marta Yokum [employer] Ingrowing nail cellulitis, finger, right 681.00 Active Marta Yokum [employer] Cellulitis and abscess of finger, unspecified Cough 786.2 Active Marta Yokum [employer] Cough Breast microcalcification ICD-793.81 Inactive Jennifer Chun [...] Ingrown toenail, left ICD-703.0 Inactive Martacarlos Maganaum [employer] Medication List Medication Instructions Start Date Stop Date Generic Name NDC Status Provider Patient Instruction AUGMENTIN 875-125 MG ORAL TABLET 1 po BID x 10 days AMOXICILLIN-POT CLAVULANATE 31805276499 No Longer Active Marta Yokum [employer] Active MEDROL 4 MG ORAL TABLET THERAPY PACK 6 tabs on day 1, 5 tabs on day 2, 4 tabs on day 3, 3 tabs on day 4, 2 tabs on day 5, 1 tab on day 6 METHYLPREDNISOLONE 88423807993 No Longer Active Marta Yokum [employer] Active TESSALON PERLES 100 MG ORAL CAPSULE 1 to 2 tablets by mouth 3 times daily as needed for cough BENZONATATE 56826412996 Active Marta Yokum [employer] Active TUSSIONEX PENNKINETIC ER 10-8 MG/5ML ORAL SUSPENSION EXTENDED RELEASE 5ml po q12hr PRN Cough HYDROCOD POLST-CHLORPHEN POLST 64311834965 Active Marta Yokum [employer] Active KEFLEX 500 MG ORAL CAPSULE 1 po qid CEPHALEXIN 52915150847 No Longer Active Marta Yokum [employer] Active B COMPLEX 50 ORAL TABLET EXTENDED RELEASE B COMPLEX VITAMINS 01483676507 Active Marta Viramontes APRN Active TUSSIONEX PENNKINETIC ER 10-8 MG/5ML ORAL SUSPENSION EXTENDED RELEASE 5ml po q12hr PRN Cough HYDROCOD POLST-CHLORPHEN POLST 87882674608 No Longer Active Marta Viramontes APRN Active VITAMIN D3 84835 UNIT ORAL CAPSULE 1 qWeek x 4 months for vitamin D deficiency CHOLECALCIFEROL 46830616125 Active Marta Viramontes [employer] Active CEPHALEXIN 500 MG ORAL CAPSULE Take one four times a day CEPHALEXIN 68033119052 No Longer Active Marta Viramontes APRN Active BIOTIN 1000 MCG ORAL TABLET Take one daily BIOTIN 24031284377 Active Rikki Harms PA Active VITAMIN C 500 MG ORAL CAPSULE Take one daily ASCORBIC ACID 01866992424 Active Rikki Harms PA Active BENZONATATE 200 MG ORAL CAPSULE One capsule tid. BENZONATATE 31374185125 No Longer Active Rikki Harms PA Active FLONASE ALLERGY RELIEF 50 MCG/ACT NASAL SUSPENSION spray twice in each nostril one time daily FLUTICASONE PROPIONATE 50277384054 No Longer Active Rikki Harms PA Active TUSSIONEX PENNKINETIC ER 10-8 MG/5ML ORAL SUSPENSION EXTENDED RELEASE 5ml po q12hr PRN Cough HYDROCOD POLST-CHLORPHEN POLST 00136834136 No Longer Active Rikki Harms PA Active NIACIN ER 500 MG ORAL TABLET EXTENDED RELEASE Take one twice daily NIACIN 00614735381 Active Rikki Harms PA Active ALBUTEROL SULFATE (2.5 MG/3ML) 0.083% INHALATION NEBULIZATION SOLUTION one vial per nebulizer every 4-6 hours as needed ALBUTEROL SULFATE 70914561876 No Longer Active Rikki Harms PA Active MEDROL 4 MG ORAL TABLET THERAPY PACK 6 tabs on day 1, 5 tabs on day 2, 4 tabs on day 3, 3 tabs on day 4, 2 tabs on day 5, 1 tab on day 6 METHYLPREDNISOLONE 07422654012 No Longer Active Rikki Harms PA Active LEVAQUIN 750 MG ORAL TABLET 1 po qd x 7 days LEVOFLOXACIN 81742314419 No Longer Active Rikki Harms PA Active LEVAQUIN 500 MG ORAL TABLET Take one tablet daily LEVOFLOXACIN 14244292984 No Longer Active Rikki Harms PA Active PROAIR HFA 108 (90 Base) MCG/ACT INHALATION AEROSOL SOLUTION 2 puffs four times a day as needed ALBUTEROL SULFATE 15694342802 Active Marta Yokum [employer] Active LEVAQUIN 500 MG ORAL TABLET 1 tablet by mouth daily LEVOFLOXACIN 95178706923 No Longer Active Marta Yokum [employer] Active CHERATUSSIN AC 100-10 MG/5ML ORAL SYRUP 1 tsp by mouth every 4 hours as needed for cough GUAIFENESIN-CODEINE 04151674161 No Longer Active Rikki Harms PA Active MUPIROCIN 2 % EXTERNAL OINTMENT Use in each nostril in am and pm MUPIROCIN 61858121712 No Longer Active Rikki Harms PA Active DOXYCYCLINE HYCLATE 100 MG ORAL CAPSULE Take one bid DOXYCYCLINE HYCLATE 53884265972 No Longer Active Rikki Harms PA Active CLARITIN 10 MG ORAL TABLET 1prn LORATADINE 52821451928 No Longer Active Jocelyne Naff [employer] Active ASPIRIN 81 MG ORAL TABLET 1qd ASPIRIN 09947466472 No Longer Active Jocelyne Naff [employer] Active DOXYCYCLINE HYCLATE 100 MG ORAL CAPSULE 1 cap by mouth twice daily DOXYCYCLINE HYCLATE 25779960428 No Longer Active Rikki Harms PA Active VITAMIN D3 10336 UNIT ORAL CAPSULE 1 pill by mouth weekly, for vitamin D deficiency CHOLECALCIFEROL 36119767289 No Longer Active Jennifer Chun MD PhD Active ANASTROZOLE 1 MG ORAL TABLET Take one by mouth daily ANASTROZOLE 64046976395 Active Jennifer Chun MD PhD Active ZITHROMAX 250 MG ORAL TABLET 2 po today, then 1 po q days 2-5 AZITHROMYCIN 21774353691 No Longer Active Rikki Harms PA Active MECLIZINE HCL 25 MG ORAL TABLET 1 prn MECLIZINE HCL 34323803059 No Longer Active Solomon Alamo MD Active CHERATUSSIN AC SYRUP prn as directed GUAIFENESIN- CODEINE SYRP 84364217945 No Longer Active Rikki Harms PA Active MULTIVITAMINS TABS 1qd MULTIPLE VITAMIN 18982123077 No Longer Active Rikki Harms PA Active OMEPRAZOLE 20 MG ORAL CAPSULE DELAYED RELEASE 1 PO Q D OMEPRAZOLE 18463701201 Active Jocelyne Naff [employer] Active ZITHROMAX Z-CAROLYN 250 MG ORAL TABLET 2x1day,[id number] AZITHROMYCIN 04903771984 No Longer Active Jocelyne Naff [employer] Active MULTIVITAMINS TABS 1qd MULTIVITAMINS TABS MULTIPLE VITAMIN Inactive CHERATUSSIN AC SYRUP prn as directed CHERATUSSIN AC SYRUP GUAIFENESIN-CODEINE SYRP Inactive MECLIZINE HCL 25 MG ORAL TABLET 1 prn MECLIZINE HCL 25 MG ORAL TABLET 516227 MECLIZINE HCL Inactive ASPIRIN 81 MG ORAL TABLET 1qd ASPIRIN 81 MG ORAL TABLET 378220 ASPIRIN Inactive CLARITIN 10 MG ORAL TABLET 1prn CLARITIN 10 MG ORAL TABLET 612541 LORATADINE Inactive DOXYCYCLINE HYCLATE 100 MG ORAL CAPSULE Take one bid DOXYCYCLINE HYCLATE 100 MG ORAL CAPSULE 1288861 DOXYCYCLINE HYCLATE Inactive MUPIROCIN 2 % EXTERNAL OINTMENT Use in each nostril in am and pm MUPIROCIN 2 % EXTERNAL OINTMENT 789630 MUPIROCIN Inactive CHERATUSSIN AC 100-10 MG/5ML ORAL SYRUP 1 tsp by mouth every 4 hours as needed for cough CHERATUSSIN AC 100-10 MG/5ML ORAL SYRUP 044639 GUAIFENESIN-CODEINE Inactive LEVAQUIN 500 MG ORAL TABLET 1 tablet by mouth daily LEVAQUIN 500 MG ORAL TABLET 295622 LEVOFLOXACIN Inactive LEVAQUIN 500 MG ORAL TABLET Take one tablet daily LEVAQUIN 500 MG ORAL TABLET 107385 LEVOFLOXACIN Inactive LEVAQUIN 750 MG ORAL TABLET 1 po qd x 7 days LEVAQUIN 750 MG ORAL TABLET 596732 LEVOFLOXACIN Inactive ALBUTEROL SULFATE (2.5 MG/3ML) 0.083% INHALATION NEBULIZATION SOLUTION one vial per nebulizer every 4-6 hours as needed ALBUTEROL SULFATE (2.5 MG/3ML) 0.083% INHALATION NEBULIZATION SOLUTION 039457 ALBUTEROL SULFATE Inactive TUSSIONEX PENNKINETIC ER 10-8 MG/5ML ORAL SUSPENSION EXTENDED RELEASE 5ml po q12hr PRN Cough TUSSIONEX PENNKINETIC ER 10-8 MG/5ML ORAL SUSPENSION EXTENDED RELEASE HYDROCOD POLST-CHLORPHEN POLST Inactive FLONASE ALLERGY RELIEF 50 MCG/ACT NASAL SUSPENSION spray twice in each nostril one time daily FLONASE ALLERGY RELIEF 50 MCG/ ACT NASAL SUSPENSION 4651476 FLUTICASONE PROPIONATE Inactive BENZONATATE 200 MG ORAL CAPSULE One capsule tid. BENZONATATE 200 MG ORAL CAPSULE 721653 BENZONATATE Inactive CEPHALEXIN 500 MG ORAL CAPSULE Take one four times a day CEPHALEXIN 500 MG ORAL CAPSULE 489065 CEPHALEXIN Inactive TUSSIONEX PENNKINETIC ER 10-8 MG/5ML ORAL SUSPENSION EXTENDED RELEASE 5ml po q12hr PRN Cough TUSSIONEX PENNKINETIC ER 10-8 MG/5ML ORAL SUSPENSION EXTENDED RELEASE HYDROCOD POLST-CHLORPHEN POLST Inactive ZITHROMAX Z-CAROLYN 250 MG ORAL TABLET 2x1day,1m2gmap ZITHROMAX Z-CAROLYN 250 MG ORAL TABLET 998412 AZITHROMYCIN Inactive ZITHROMAX 250 MG ORAL TABLET 2 po today, then 1 po q days 2-5 ZITHROMAX 250 MG ORAL TABLET 761827 AZITHROMYCIN Inactive VITAMIN D3 50493 UNIT ORAL CAPSULE 1 pill by mouth weekly, for vitamin D deficiency VITAMIN D3 21204 UNIT ORAL CAPSULE CHOLECALCIFEROL Inactive DOXYCYCLINE HYCLATE 100 MG ORAL CAPSULE 1 cap by mouth twice daily DOXYCYCLINE HYCLATE 100 MG ORAL CAPSULE 9338755 DOXYCYCLINE HYCLATE Inactive MEDROL 4 MG ORAL TABLET THERAPY PACK 6 tabs on day 1, 5 tabs on day 2, 4 tabs on day 3, 3 tabs on day 4, 2 tabs on day 5, 1 tab on day 6 MEDROL 4 MG ORAL TABLET THERAPY PACK 692979 METHYLPREDNISOLONE Inactive KEFLEX 500 MG ORAL CAPSULE 1 po qid KEFLEX 500 MG ORAL CAPSULE 881776 CEPHALEXIN Inactive MEDROL 4 MG ORAL TABLET THERAPY PACK 6 tabs on day 1, 5 tabs on day 2, 4 tabs on day 3, 3 tabs on day 4, 2 tabs on day 5, 1 tab on day 6 MEDROL 4 MG ORAL TABLET THERAPY PACK 364858 METHYLPREDNISOLONE Inactive AUGMENTIN 875-125 MG ORAL TABLET 1 po BID x 10 days AUGMENTIN 875-125 MG ORAL TABLET 067998 AMOXICILLIN-POT CLAVULANATE Inactive Vital Signs Date Name [...] Measured Encounters Code Encounter Date Provider Facility CPT-84939 Level 3 Est. Patient 16:07:34 CDT Marta Viramontes [facility] CPT-44991 Level 3 Est. Patient 15:39:01 CDT Marta Viramontes [facility] [place] CPT-33129 Level 4 Est. Patient 17:31:07 CDT Marta Viramontes [facility] [place] CPT-61057 Level 3 Est. Patient 05:11:40 CDT Rikki GRANADOS [facility] CPT-57893 Level 2 Est. 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 Patient 09:07:32 CDT Marta Viramontes [facility] CPT-34790 Level 4 Est. Patient 11:55:00 CDT Rikki GRANADOS [facility] CPT-16455 Level 3 Est. Patient 13:25:16 CDT Jennifer Chun MD PhD [facility] CPT-61083 Level 3 Est. Patient 17:31:22 CDT Solomon Alamo MD [facility] CPT-11522 Level 3 Est. Patient 08:02:14 CDT Solomon Alamo MD [facility] CPT-68846 Level 3 Est. Patient 17:23:53 CDT Rikki GRANADOS [facility] CPT-35623 Level 3 Est. Patient 11:22:41 CDT Darryn Hearn [facility] Procedures Code Procedure Name Date Entry Date Standard Description CPT-10929 Venipuncture Draw Fee 16:09:39 CDT CPT-73652 Venipuncture Draw Fee 12:43:48 [employer] CPT-04663 BMP - LAB USE ONLY 10:32:33 [employer]ED [employer] INSPECTOR CPT-20486 Venipuncture Draw Fee 10:32:33 [employer] INS[employer] CPT-08904 Magnesium - LAB USE ONLY 09:54:30 CDT CPT-42960 TSH - LAB USE ONLY 09:54:30 CDT CPT-42826 Lipid - LAB USE ONLY 09:54:30 CDT CPT-45637 Venipuncture Draw Fee 09:54:29 CDT CPT-51726 Venipuncture Draw Fee 18:27:04 CDT CPT-78521 Chest 2V Frontal and Lat 10:57:00 [employer] CPT-28822 Venipuncture Draw Fee 10:56:59 [employer]ED [employer] INSPECTOR CPT-11795 Venipuncture Draw Fee 09:22:28 [employer]ED [employer] INSPECTOR CPT-62481 Chest 2V Frontal and Lat 09:22:27 [employer]ILED [employer]IL INSPECTOR CPT-I/D I/D Abscess 09:43:13 CDT CPT-25705 Venipuncture Draw Fee 08:16:46 [employer] INS[employer] CPT-43463 Venipuncture Draw Fee 08:18:55 [employer]ED [employer]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 Care Visit 12:19:00 CDT CPT-42387 Venipuncture Draw Fee 15:02:58 CDT
--- OUTSIDE RECORDS SUMMARY | 2018-01-19 07:50 | XMS REPORT | Clinical Summary ---
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 DEVELOPER Conditions or Problems Problem Name Problem Code Onset Date Status Entry Date Provider Comment Standard Description Annotate G E R D 530.81 Active Jocelyne Naff SENIOR TERADATA DEVELOPER Esophageal reflux FH COLON CANCER V16.0 Active Jocelyne Naff SENIOR TERADATA DEVELOPER Family history of malignant neoplasm of gastrointestinal tract ESOPHAGEAL STRICTURE 530.3 Active Darryn Hearn PA Stricture and stenosis of esophagus CAROTID ARTERY STENOSIS, RIGHT 433.10 Active Rikik Stearns PA Occlusion and stenosis of carotid [...] MCG ORAL TABS Take one daily BIOTIN 52916833560 Active Rikki Harms PA Active VITAMIN C 500 MG ORAL CAPS Take one daily ASCORBIC ACID 46689885400 Active Rikki Harms PA Active BENZONATATE 200 MG ORAL CAPS One capsule tid. BENZONATATE 97745379215 No Longer Active Rikki Harms PA Active FLONASE ALLERGY RELIEF 50 MCG/ACT NASAL SUSP spray twice in each nostril one time daily FLUTICASONE PROPIONATE 87094533615 No Longer Active Rikki Harms PA Active TUSSIONEX PENNKINETIC ER 10-8 MG/5ML LQCR 5ml po q12hr PRN Cough HYDROCOD POLST-CHLORPHEN POLST 62081946606 No Longer Active Rikki Harms PA Active NIACIN ER 500 MG ORAL CR-TABS Take one twice daily NIACIN 59902442778 Active Rikki Harms PA Active ALBUTEROL SULFATE 0.083 % JOSEE SOLBarbra one vial per nebulizer every 4-6 hours as needed ALBUTEROL SULFATE 85583651957 No Longer Active Rikki Harms PA Active CEPHALEXIN 500 MG ORAL CAPS Take one four times a day CEPHALEXIN 88046307578 Active Rikki Harms PA Active MEDROL (CAROLYN) 4 MG TABS 6 tabs on day 1, 5 tabs on day 2, 4 tabs on day 3, 3 tabs on day 4, 2 tabs on day 5, 1 tab on day 6 METHYLPREDNISOLONE 17551252441 No Longer Active Rikki Harms PA Active LEVAQUIN 750 MG TABS 1 po qd x 7 days LEVOFLOXACIN 98975656100 No Longer Active Rikki Harms PA Active LEVAQUIN 500 MG ORAL TABS Take one tablet daily LEVOFLOXACIN 80479413350 No Longer Active Rikki Harms PA Active PROAIR HFA 108 (90 BASE) MCG/ACT AERS 2 puffs four times a day as needed 2014 ALBUTEROL SULFATE 16682010901 Active Marta Yokum [employer]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 LEVAQUIN 500 MG TAB 1 tablet by mouth daily LEVOFLOXACIN 87707277443 No Longer Active Marta Yokum V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 CHERATUSSIN AC 100-10 MG/5ML SYRP 1 tsp by mouth every 4 hours as needed for cough GUAIFENESIN-CODEINE 73257165021 No Longer Active Rikki Harms PA Active MUPIROCIN 2 % EXT OINT Use in each nostril in am and pm MUPIROCIN 33793296458 No Longer Active Rikki Harms PA Active DOXYCYCLINE HYCLATE 100 MG ORAL CAPS Take one bid DOXYCYCLINE HYCLATE 40125779630 No Longer Active Rikki Harms PA Active CLARITIN 10 MG TABS 1prn LORATADINE 50479987071 No Longer Active Jocelyne Naff SENIOR TERADATA DEVELOPER Active ASPIRIN 81 MG TABS 1qd ASPIRIN 26508385453 No Longer Active Jocelyne Naff SENIOR TERADATA DEVELOPER Active DOXYCYCLINE HYCLATE 100 MG CAP 1 cap by mouth twice daily DOXYCYCLINE HYCLATE 11599946700 No Longer Active Rikki Harms PA Active VITAMIN D3 90546 UNIT CAPS 1 pill by mouth weekly, for vitamin D deficiency CHOLECALCIFEROL 31248203637 No Longer Active Jennifer Chun MD PhD Active ANASTROZOLE 1 MG ORAL TABS Take one by mouth daily ANASTROZOLE 40046309985 Active Jennifer Chun MD PhD Active ZITHROMAX 250 MG TAB 2 po today, then 1 po q days 2-5 AZITHROMYCIN 06944696562 No Longer Active Rikki Harms PA Active MECLIZINE HCL 25 MG TABS 1 prn MECLIZINE HCL 23241667599 No Longer Active Solomon Alamo MD Active CHERATUSSIN AC SYRP prn as directed GUAIFENESIN- CODEINE SYRP 90515836232 No Longer Active Rikki Harms PA Active MULTIVITAMINS TABS 1qd MULTIPLE VITAMIN 67994587818 No Longer Active Rikki Harms PA Active OMEPRAZOLE 20 MG CPDR 1 PO Q D OMEPRAZOLE 11510737535 Active Rikki Harms PA Active ZITHROMAX Z-CAROLYN 250 MG TABS 2x1day,6u7bmal AZITHROMYCIN 82099789907 No Longer Active Jocelyne Lovell SENIOR TERADATA DEVELOPER Active MULTIVITAMINS TABS 1qd MULTIVITAMINS TABS MULTIPLE VITAMIN Inactive CHERATUSSIN AC SYRP prn as directed CHERATUSSIN AC SYRP GUAIFENESIN-CODEINE SYRP Inactive MECLIZINE HCL 25 MG TABS 1 prn MECLIZINE HCL 25 MG TABS 559559 MECLIZINE HCL Inactive ASPIRIN 81 MG TABS 1qd ASPIRIN 81 MG TABS ASPIRIN Inactive CLARITIN 10 MG TABS 1prn CLARITIN 10 MG TABS 947049 LORATADINE Inactive DOXYCYCLINE HYCLATE 100 MG ORAL CAPS Take one bid DOXYCYCLINE HYCLATE 100 MG ORAL CAPS 2329617 DOXYCYCLINE HYCLATE Inactive MUPIROCIN 2 % EXT OINT Use in each nostril in am and pm MUPIROCIN 2 % EXT OINT 522918 MUPIROCIN Inactive CHERATUSSIN AC 100-10 MG/5ML SYRP 1 tsp by mouth every 4 hours as needed for cough CHERATUSSIN AC 100-10 MG/5ML SYRP 667408 GUAIFENESIN-CODEINE Inactive LEVAQUIN 500 MG TAB 1 tablet by mouth daily LEVAQUIN 500 MG TAB 003944 LEVOFLOXACIN Inactive LEVAQUIN 500 MG ORAL TABS Take one tablet daily LEVAQUIN 500 MG ORAL TABS 931070 LEVOFLOXACIN Inactive LEVAQUIN 750 MG TABS 1 po qd x 7 days LEVAQUIN 750 MG TABS 523474 LEVOFLOXACIN Inactive ALBUTEROL SULFATE 0.083 % NEBU SOLN one vial per nebulizer every 4-6 hours as needed ALBUTEROL SULFATE 0.083 % NEBU SOLN 917252 ALBUTEROL SULFATE Inactive TUSSIONEX PENNKINETIC ER 10-8 MG/5ML LQCR 5ml po q12hr PRN Cough TUSSIONEX PENNKINETIC ER 10-8 MG/5ML LQCR HYDROCOD POLST- CHLORPHEN POLST Inactive FLONASE ALLERGY RELIEF 50 MCG/ACT NASAL SUSP spray twice in each nostril one time daily FLONASE ALLERGY RELIEF 50 MCG/ACT NASAL SUSP 323910 FLUTICASONE PROPIONATE Inactive BENZONATATE 200 MG ORAL CAPS One capsule tid. BENZONATATE 200 MG ORAL CAPS 776703 BENZONATATE Inactive ZITHROMAX Z-CAROLYN 250 MG TABS 2x1day,[id number] ZITHROMAX Z-CAROLYN 250 MG TABS 7831942 AZITHROMYCIN Inactive ZITHROMAX 250 MG TAB 2 po today, then 1 po q days 2-5 ZITHROMAX 250 MG TAB 4530469 AZITHROMYCIN Inactive VITAMIN D3 25196 UNIT CAPS 1 pill by mouth weekly, for vitamin D deficiency VITAMIN D3 83213 UNIT CAPS CHOLECALCIFEROL Inactive DOXYCYCLINE HYCLATE 100 MG CAP 1 cap by mouth twice daily DOXYCYCLINE HYCLATE 100 MG CAP 6469902 DOXYCYCLINE HYCLATE Inactive MEDROL (CAROLYN) 4 MG TABS 6 tabs on day 1, 5 tabs on day 2, 4 tabs on day 3, 3 tabs on day 4, 2 tabs on day 5, 1 tab on day 6 MEDROL ( CAROLYN) 4 MG TABS 297846 METHYLPREDNISOLONE Inactive Vital Signs Date Name Value [...] % 11.6-14.8 platelet count 143 10^3/MM^3 10*3/mm3 805-345 8958/11/25 leukocyte count, blood 2.1 10^3/MM^3 10*3/mm3 4.6-10.2 [...] % 11.6-14.8 platelet count 139 10^3/MM^3 10*3/mm3 996-821 4251/12/02 leukocyte count, blood 6.7 10^3/MM^3 10*3/mm3 4.6-10.2 [...] % 11.6-14.8 platelet count 258 10^3/MM^3 10*3/mm3 678-473 8919/12/09 leukocyte count, blood 5.3 10^3/MM^3 10*3/mm3 4.6-10.2 [...] % 11.6-14.8 platelet count 240 10^3/MM^3 10*3/mm3 642-627 8788/12/16 leukocyte count, blood 3.2 10^3/MM^3 10*3/mm3 4.6-10.2 [...] % 11.6-14.8 platelet count 158 10^3/MM^3 10*3/mm3 869-634 5575/12/18 leukocyte count, blood 8.8 10^3/MM^3 10*3/mm3 4.6-10.2 [...] % 11.6-14.8 platelet count 207 10^3/MM^3 10*3/mm3 882-902 4064/12/23 leukocyte count, blood 6.2 10^3/MM^3 10*3/mm3 4.6-10.2 [...] % 11.6-14.8 platelet count 183 10^3/MM^3 10*3/mm3 495-106 3051/11/11 leukocyte count, blood 2.0 10^3/MM^3 10*3/mm3 4.6-10.2 [...] % 11.6-14.8 platelet count 203 10^3/MM^3 10*3/mm3 637-564 8241/12/30 leukocyte count, blood 5.2 10^3/MM^3 10*3/mm3 4.6-10.2 [...] % 11.6-14.8 platelet count 200 10^3/MM^3 10*3/mm3 006-615 8338/03/02 leukocyte count, blood 5.1 10^3/MM^3 10*3/mm3 4.6-10.2 [...] Panel - Chemistry sodium, serum 142 mmol/L 309-317 7064/02/04 carbon dioxide, venous blood 24.9 mmol/L 21.0-32.0 potassium, serum 4.1 mmol/L 3.5-5.2 chloride, serum 106 mmol/L 98-107 blood glucose 103 mg/dL 65-110 urea nitrogen, blood 25 mg/dL 7-18 creatinine, serum 0.83 mg/dL 0.55-1.30 alanine aminotransferase (SGPT), serum 38 U/L 12-78 aspartate aminotransferase (SGOT), serum 26 U/L 15-37 calcium, serum 8.7 mg/dL 8.5-10.1 bilirubin, serum, total 0.30 mg/dL 0.00-1.00 sodium, serum 140 mmol/L 729-253 7368/01/13 carbon dioxide, venous blood 26.4 mmol/L 21.0-32.0 potassium, serum 4.2 mmol/L 3.5-5.2 chloride, serum 104 mmol/L 98-107 blood glucose 101 mg/dL 65-110 urea nitrogen, blood 18 mg/dL 7-18 creatinine, serum 0.80 mg/dL 0.55-1.30 alanine aminotransferase (SGPT), serum 28 U/L -78 aspartate aminotransferase (SGOT), serum 24 U/L 15-37 calcium, serum 8.7 mg/dL 8.5-10.1 bilirubin, serum, total 0.50 mg/dL 0.00-1.00 sodium, serum 138 mmol/L 331-790 6813/11/04 carbon dioxide, venous blood 27.7 mmol/L 21.0-32.0 potassium, serum 4.9 mmol/L 3.5-5.2 chloride, serum 104 mmol/L 98-107 blood glucose 92 mg/dL 65-110 urea nitrogen, blood 24 mg/dL 7-18 creatinine, serum 0.95 mg/dL 0.55-1.30 alanine aminotransferase (SGPT), serum 34 U/L -78 aspartate aminotransferase (SGOT), serum 23 U/L 15-37 calcium, serum 8.9 mg/dL 8.5-10.1 bilirubin, serum, total 0.70 mg/dL 0.00-1.00 sodium, serum 140 mmol/L 876-106 5420/01/06 carbon dioxide, venous blood 27.2 mmol/L 21.0-32.0 [...] % 11.6-14.8 platelet count 289 10^3/MM^3 10*3/mm3 486-593 2372/01/06 leukocyte count, blood 4.1 10^3/MM^3 10*3/mm3 4.6-10.2 [...] % 11.6-14.8 platelet count 297 10^3/MM^3 10*3/mm3 019-505 8889/02/04 leukocyte count, blood 4.2 10^3/MM^3 10*3/mm3 4.6-10.2 [...] % 11.6-14.8 platelet count 271 10^3/MM^3 10*3/mm3 281-756 7874/11/04 leukocyte count, blood 3.8 10^3/MM^3 10*3/mm3 4.6-10.2 [...] Panel - Chemistry sodium, serum 140 mmol/L 604-953 7260/07/13 potassium, serum 4.5 mmol/L 3.5-5.2 chloride, serum 106 mmol/L 98-107 carbon dioxide, venous blood 27.7 mmol/L 21.0-32.0 blood glucose 105 mg/dL 65-110 urea nitrogen, blood 14 mg/dL 7-18 creatinine, serum 0.90 mg/dL 0.60-1.30 alanine aminotransferase (SGPT), serum 29 U/L 12-78 aspartate aminotransferase (SGOT), serum 22 U/L 15-37 calcium, serum 9.4 mg/dL 8.5-10.1 bilirubin, serum, total 0.70 mg/dL 0.00-1.00 cholesterol, serum 160 mg/dL 925-808 5358/07/13 triglyceride, serum, fasting 63 mg/dL 30-200 HDL [...] Panel - Chemistry sodium, serum 141 mmol/L 737-590 7816/11/18 carbon dioxide, venous blood 26.2 mmol/L 21.0-32.0 potassium, serum 4.4 mmol/L 3.5-5.2 chloride, serum 106 mmol/L 98-107 blood glucose 102 mg/dL 65-110 urea nitrogen, blood 24 mg/dL 7-18 creatinine, serum 0.77 mg/dL 0.55-1.30 alanine aminotransferase (SGPT), serum 30 U/L 12-78 aspartate aminotransferase (SGOT), serum 15 U/L 15-37 calcium, serum 8.3 mg/dL 8.5-10.1 bilirubin, serum, total 0.30 mg/dL 0.00-1.00 sodium, serum 139 mmol/L 384-388 5268/11/25 carbon dioxide, venous blood 27.9 mmol/L 21.0-32.0 potassium, serum 4.7 mmol/L 3.5-5.2 chloride, serum 105 mmol/L 98-107 blood glucose 94 mg/dL 65-110 urea nitrogen, blood 21 mg/dL 7-18 creatinine, serum 0.79 mg/dL 0.55-1.30 alanine aminotransferase (SGPT), serum 40 U/L aspartate aminotransferase (SGOT), serum 22 U/L 15-37 calcium, serum 8.5 mg/dL 8.5-10.1 bilirubin, serum, total 0.80 mg/dL 0.00-1.00 sodium, serum 142 mmol/L 034-379 8490/12/09 carbon dioxide, venous blood 28.5 mmol/L 21.0-32.0 potassium, serum 5.0 mmol/L 3.5-5.2 chloride, serum 109 mmol/L 98-107 blood glucose 91 mg/dL 65-110 urea nitrogen, blood 27 mg/dL 7-18 creatinine, serum 0.88 mg/dL 0.55-1.30 alanine aminotransferase (SGPT), serum 31 U/L aspartate aminotransferase (SGOT), serum 18 U/L 15-37 calcium, serum 8.9 mg/dL 8.5-10.1 bilirubin, serum, total 0.40 mg/dL 0.00-1.00 sodium, serum 140 mmol/L 067-865 8344/12/16 carbon dioxide, venous blood 25.4 mmol/L 21.0-32.0 potassium, serum 4.1 mmol/L 3.5-5.2 chloride, serum 104 mmol/L 98-107 blood glucose 110 mg/dL 65-110 urea nitrogen, blood 24 mg/dL 7-18 creatinine, serum 0.87 mg/dL 0.55-1.30 alanine aminotransferase (SGPT), serum 35 U/L -78 aspartate aminotransferase (SGOT), serum 21 U/L 15-37 calcium, serum 8.4 mg/dL 8.5-10.1 bilirubin, serum, total 0.50 mg/dL 0.00-1.00 sodium, serum 141 mmol/L 601-434 4247/12/02 carbon dioxide, venous blood 25.9 mmol/L 21.0-32.0 potassium, serum 4.7 mmol/L 3.5-5.2 chloride, serum 106 mmol/L 98-107 blood glucose 78 mg/dL 65-110 urea nitrogen, blood 24 mg/dL 7-18 creatinine, serum 0.75 mg/dL 0.55-1.30 alanine aminotransferase (SGPT), serum 31 U/L 78 aspartate aminotransferase (SGOT), serum 20 U/L 15-37 calcium, serum 8.7 mg/dL 8.5-10.1 bilirubin, serum, total 0.30 mg/dL 0.00-1.00 sodium, serum 139 mmol/L 129-397 8432/12/30 carbon dioxide, venous blood 28.2 mmol/L 21.0-32.0 potassium, serum 3.9 mmol/L 3.5-5.2 chloride, serum 105 mmol/L 98-107 blood glucose 91 mg/dL 65-110 urea nitrogen, blood 17 mg/dL 7-18 creatinine, serum 0.81 mg/dL 0.55-1.30 alanine aminotransferase (SGPT), serum 29 U/L aspartate aminotransferase (SGOT), serum 22 U/L 15- calcium, serum 8.8 mg/dL 8.5-10.1 bilirubin, serum, total 0.50 mg/dL 0.00-1.00 sodium, serum 141 mmol/L 061-105 2469/11/11 carbon dioxide, venous blood 26.8 mmol/L 21.0-32.0 potassium, serum 4.2 mmol/L 3.5-5.2 chloride, serum 106 mmol/L 98-107 blood glucose 95 mg/dL 65-110 urea nitrogen, blood 18 mg/dL 7-18 creatinine, serum 0.70 mg/dL 0.55-1.30 alanine aminotransferase (SGPT), serum 33 U/L aspartate aminotransferase (SGOT), serum 22 U/L - calcium, serum 8.5 mg/dL 8.5-10.1 bilirubin, serum, total 0.30 mg/dL 0.00-1.00 sodium, serum 143 mmol/L 025-475 6593/12/23 carbon dioxide, venous blood 24.6 mmol/L 21.0-32.0 potassium, serum 4.1 mmol/L 3.5-5.2 chloride, serum 107 mmol/L 98-107 blood glucose 98 mg/dL 65-110 urea nitrogen, blood 22 mg/dL 7-18 creatinine, serum 0.77 mg/dL 0.55-1.30 alanine aminotransferase (SGPT), serum 28 U/L aspartate aminotransferase (SGOT), serum 20 U/L - calcium, serum 8.6 mg/dL 8.5-10.1 bilirubin, serum, total 0.30 mg/dL 0.00-1.00 Lab Report: VITAMIN D, 25-HYDROXY/42671 - Chemistry vitamin D 25-hydroxy, serum 24 ng/mL 30-100 Encounters Code Encounter Date Provider Facility CPT-95894 Level 3 Est. Patient 05:11:40 CDT Rikki GRANADOS [facility] CPT-85750 Level 2 Est. Patient 14:30:43 [employer]USS BUIL[employer] Marta Viramontes [facility] CPT-69163 Level 4 Est. 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 Patient 09:07:32 CDT Marta Viramontes [facility] CPT-69869 Level 4 Est. Patient 11:55:00 CDT Rikki Stearns [facility] CPT-77940 Level 3 Est. Patient 13:25:16 CDT Jennifer Chun MD PhD [facility] CPT-54216 Level 3 Est. Patient 17:31:22 CDT Solomon Alamo MD [facility] CPT-84482 Level 3 Est. Patient 08:02:14 CDT Solomon Alamo MD [facility] CPT-93874 Level 3 Est. Patient 17:23:53 CDT Rikki Stearns [facility] CPT-46621 Level 3 Est. Patient 11:22:41 CDT Darryn Hearn [facility] Procedures Code Procedure Name Date Entry Date Standard Description CPT-59303 Chest 2V Frontal and Lat 10:57:00 [employer]IL[employer] CPT-15954 Venipuncture Draw Fee 10:56:59 [employer] CPT-99168 Venipuncture Draw Fee 09:22:28 [employer] CPT-83830 Chest 2V Frontal and Lat 09:22:27 [employer]USS BUIL[employer] CPT-I/D I/D Abscess 09:43:13 CDT CPT-16757 Venipuncture Draw Fee 08:16:46 [employer]IL[employer] CPT-79747 Venipuncture Draw Fee 08:18:55 [employer] CPT-45101 Venipuncture Draw Fee 08:31:18 [employer] CPT-78188 Venipuncture Draw Fee 11:42:52 [employer] CPT-57867 Venipuncture Draw Fee 13:26:37 [employer] CPT-77997 Venipuncture Draw Fee 09:23:38 [employer]USS BUIL[employer] CPT-000 Give Appropriate Tetanus Booster 10:23:50 CDT CPT-19380 Bone Density 08:28:45 CDT CPT-03979 Bone Density 11:35:15 CDT CPT-PV Prev. Care Visit 12:19:00 CDT CPT-44725 Venipuncture Draw Fee 15:02:58 CDT
--- OUTSIDE RECORDS SUMMARY | 2018-01-19 07:51 | XMS REPORT | Clinical Summary ---
Author Author Admin, E Organization [facility] Address Unknown Phone Unavailable Allergies, Adverse Reactions, Alerts Allergy Name Reaction Description Start Date Severity Status Provider SULFA facial swelling Critical Active Jocelyne Naff SCHEDULER MAINTENANCE Conditions or Problems Problem Name Problem Code Onset Date Status Entry Date Provider Comment Standard Description Annotate G E R D 530.81 Active Jocelyne Naff SCHEDULER MAINTENANCE Esophageal reflux FH COLON CANCER V16.0 Active Jocelyne Naff SCHEDULER MAINTENANCE Family history of malignant neoplasm of gastrointestinal [...] po q12hr PRN Cough HYDROCOD POLST-CHLORPHEN POLST 32571619142 Active Marta Viramontes APRN Active VITAMIN D3 06730 UNIT CAPS 1 qWeek x 4 months for vitamin D deficiency 04/09 CHOLECALCIFEROL 91339760771 Active Marta Viramontes APRN Active CEPHALEXIN 500 MG ORAL CAPS Take one four times a day CEPHALEXIN 27182825836 No Longer Active Marta Viramontes APRN Active BIOTIN 1000 MCG ORAL TABS Take one daily BIOTIN 15325153008 Active Rikki Harms PA Active VITAMIN C 500 MG ORAL CAPS Take one daily ASCORBIC ACID 43602908251 Active Rikki Harms PA Active BENZONATATE 200 MG ORAL CAPS One capsule tid. BENZONATATE 27058358332 No Longer Active Rikki Harms PA Active FLONASE ALLERGY RELIEF 50 MCG/ACT NASAL SUSP spray twice in each nostril one time daily FLUTICASONE PROPIONATE 70842104803 No Longer Active Rikki Harms PA Active TUSSIONEX PENNKINETIC ER 10-8 MG/5ML LQCR 5ml po q12hr PRN Cough HYDROCOD POLST-CHLORPHEN POLST 21525177319 No Longer Active Rikki Harms PA Active NIACIN ER 500 MG ORAL CR-TABS Take one twice daily NIACIN 72135770255 Active Rikki Harms PA Active ALBUTEROL SULFATE 0.083 % NEBU SOLN one vial per nebulizer every 4-6 hours as needed ALBUTEROL SULFATE 11231589100 No Longer Active Rikki Harms PA Active MEDROL (CAROLYN) 4 MG TABS 6 tabs on day 1, 5 tabs on day 2, 4 tabs on day 3, 3 tabs on day 4, 2 tabs on day 5, 1 tab on day 6 METHYLPREDNISOLONE 23746024356 No Longer Active Rikki Harms PA Active LEVAQUIN 750 MG TABS 1 po qd x 7 days LEVOFLOXACIN 42044804061 No Longer Active Rikki Harms PA Active LEVAQUIN 500 MG ORAL TABS Take one tablet daily LEVOFLOXACIN 87129905511 No Longer Active Rikki Harms PA Active PROAIR HFA 108 (90 BASE) MCG/ACT AERS 2 puffs four times a day as needed 2014 ALBUTEROL SULFATE 77520716121 Active Marta Yokum CHILD PROTECTIVE SERVICES SOCIAL WORKER Active LEVAQUIN 500 MG TAB 1 tablet by mouth daily LEVOFLOXACIN 57040573867 No Longer Active Marta Yokum CHILD PROTECTIVE SERVICES SOCIAL WORKER Active CHERATUSSIN AC 100-10 MG/5ML SYRP 1 tsp by mouth every 4 hours as needed for cough GUAIFENESIN-CODEINE 14212110039 No Longer Active Rikki Harms PA Active MUPIROCIN 2 % EXT OINT Use in each nostril in am and pm MUPIROCIN 95339934465 No Longer Active Rikki Harms PA Active DOXYCYCLINE HYCLATE 100 MG ORAL CAPS Take one bid DOXYCYCLINE HYCLATE 64641010575 No Longer Active Rikki Harms PA Active CLARITIN 10 MG TABS 1prn LORATADINE 55103784977 No Longer Active Jocelyne Naff SCHEDULER MAINTENANCE Active ASPIRIN 81 MG TABS 1qd ASPIRIN 33374437431 No Longer Active Jocelyne Naff SCHEDULER MAINTENANCE Active DOXYCYCLINE HYCLATE 100 MG CAP 1 cap by mouth twice daily DOXYCYCLINE HYCLATE 78016883479 No Longer Active Rikki Harms PA Active VITAMIN D3 20624 UNIT CAPS 1 pill by mouth weekly, for vitamin D deficiency CHOLECALCIFEROL 15931339504 No Longer Active Jennifer Chun MD PhD Active ANASTROZOLE 1 MG ORAL TABS Take one by mouth daily ANASTROZOLE 67929528395 Active Jennifer Chun MD PhD Active ZITHROMAX 250 MG TAB 2 po today, then 1 po q days 2-5 AZITHROMYCIN 96356533774 No Longer Active Rikki Harms PA Active MECLIZINE HCL 25 MG TABS 1 prn MECLIZINE HCL 17270451711 No Longer Active Solomon Alamo MD Active CHERATUSSIN AC SYRP prn as directed GUAIFENESIN- CODEINE SYRP 32543894479 No Longer Active Rikki Harms PA Active MULTIVITAMINS TABS 1qd MULTIPLE VITAMIN 40053877824 No Longer Active Rikki Harms PA Active OMEPRAZOLE 20 MG CPDR 1 PO Q D OMEPRAZOLE 17932566772 Active Marta Maganaum CHILD PROTECTIVE SERVICES SOCIAL WORKER Active ZITHROMAX Z-CAROLYN 250 MG TABS 2x1day,9o8lrfx AZITHROMYCIN 71948158182 No Longer Active Jocelyne Lovell SCHEDULER MAINTENANCE Active MULTIVITAMINS TABS 1qd MULTIVITAMINS TABS MULTIPLE VITAMIN Inactive CHERATUSSIN AC SYRP prn as directed CHERATUSSIN AC SYRP GUAIFENESIN-CODEINE SYRP Inactive MECLIZINE HCL 25 MG TABS 1 prn MECLIZINE HCL 25 MG TABS 771312 MECLIZINE HCL Inactive ASPIRIN 81 MG TABS 1qd ASPIRIN 81 MG TABS ASPIRIN Inactive CLARITIN 10 MG TABS 1prn CLARITIN 10 MG TABS 271771 LORATADINE Inactive DOXYCYCLINE HYCLATE 100 MG ORAL CAPS Take one bid DOXYCYCLINE HYCLATE 100 MG ORAL CAPS 0773978 DOXYCYCLINE HYCLATE Inactive MUPIROCIN 2 % EXT OINT Use in each nostril in am and pm MUPIROCIN 2 % EXT OINT 010555 MUPIROCIN Inactive CHERATUSSIN AC 100-10 MG/5ML SYRP 1 tsp by mouth every 4 hours as needed for cough CHERATUSSIN AC 100-10 MG/5ML SYRP 404825 GUAIFENESIN-CODEINE Inactive LEVAQUIN 500 MG TAB 1 tablet by mouth daily LEVAQUIN 500 MG TAB 239082 LEVOFLOXACIN Inactive LEVAQUIN 500 MG ORAL TABS Take one tablet daily LEVAQUIN 500 MG ORAL TABS 075290 LEVOFLOXACIN Inactive LEVAQUIN 750 MG TABS 1 po qd x 7 days LEVAQUIN 750 MG TABS 574088 LEVOFLOXACIN Inactive ALBUTEROL SULFATE 0.083 % NEBU SOLN one vial per nebulizer every 4-6 hours as needed ALBUTEROL SULFATE 0.083 % NEBU SOLN 126163 ALBUTEROL SULFATE Inactive TUSSIONEX PENNKINETIC ER 10-8 MG/5ML LQCR 5ml po q12hr PRN Cough TUSSIONEX PENNKINETIC ER 10-8 MG/5ML LQCR HYDROCOD POLST- CHLORPHEN POLST Inactive FLONASE ALLERGY RELIEF 50 MCG/ACT NASAL SUSP spray twice in each nostril one time daily FLONASE ALLERGY RELIEF 50 MCG/ACT NASAL SUSP 7467218 FLUTICASONE PROPIONATE Inactive BENZONATATE 200 MG ORAL CAPS One capsule tid. BENZONATATE 200 MG ORAL CAPS 305596 BENZONATATE Inactive CEPHALEXIN 500 MG ORAL CAPS Take one four times a day CEPHALEXIN 500 MG ORAL CAPS 727793 CEPHALEXIN Inactive ZITHROMAX Z-CAROLYN 250 MG TABS 2x1day,1f0ydca ZITHROMAX Z-CAROLYN 250 MG TABS 8053996 AZITHROMYCIN Inactive ZITHROMAX 250 MG TAB 2 po today, then 1 po q days 2-5 ZITHROMAX 250 MG TAB 6619530 AZITHROMYCIN Inactive VITAMIN D3 39140 UNIT CAPS 1 pill by mouth weekly, for vitamin D deficiency VITAMIN D3 58629 UNIT CAPS CHOLECALCIFEROL Inactive DOXYCYCLINE HYCLATE 100 MG CAP 1 cap by mouth twice daily DOXYCYCLINE HYCLATE 100 MG CAP 9928763 DOXYCYCLINE HYCLATE Inactive MEDROL (CAROLYN) 4 MG TABS 6 tabs on day 1, 5 tabs on day 2, 4 tabs on day 3, 3 tabs on day 4, 2 tabs on day 5, 1 tab on day 6 MEDROL ( CAROLYN) 4 MG TABS 286498 METHYLPREDNISOLONE Inactive Vital Signs Date Name Value [...] Panel - Chemistry sodium, serum 142 mmol/L 008-366 1153/07/25 potassium, serum 4.0 mmol/L 3.5-5.2 chloride, serum 107 mmol/L 98-107 carbon dioxide, venous blood 31.6 mmol/L 21.0-32.0 blood glucose 108 mg/dL 65-110 calcium, serum 9.2 mg/dL 8.5-10.1 urea nitrogen, blood 20 mg/dL 7-18 creatinine, serum 0.92 mg/dL 0.55-1.30 sodium, serum 141 mmol/L 117-190 6127/11/11 potassium, serum 4.2 mmol/L 3.5-5.2 chloride, serum [...] count 269 10^3/MM^3 10*3/mm3 142-424 Lab Report: Lipid Panel, Thyroid Stimulating Hormone (L) - Chemistry cholesterol, serum 177 mg/dL 412-097 9392/10/31 triglyceride, serum, fasting 64 mg/dL 30-200 HDL cholesterol, serum 77 mg/dL 32-96 LDL cholesterol, serum 87 mg/dL 0-130 TSH 2.13 m[iU]/mL 0.36-3.74 Lab Report: VITAMIN D, 25-HYDROXY/92578 - Chemistry vitamin D 25-hydroxy, serum 25 ng/mL 30-100 Encounters Code Encounter Date Provider Facility CPT-33112 Level 4 Est. Patient 17:31:07 CDT Marta Viramontes [facility] CPT-68233 Level 3 Est. Patient 05:11:40 CDT [facility] Level 2 Est. Patient 14:30:43 SHUTTLE INSPECTOR [facility] CPT-54525 Level 4 Est. Patient 09:14:36 SHUTTLE INSPECTOR [facility]30174 Level 2 Est. Patient 09:07:32 CDT [facility] CPT-44573 Level 4 Est. Patient 11:55:00 CDT [facility] CPT-00426 Level 3 Est. Patient 13:25:16 CDT Jennifer Chun MD PhD [facility] CPT-05526 Level 3 Est. Patient 17:31:22 CDT Solomno Alamo MD [facility] CPT-01860 Level 3 Est. Patient 08:02:14 CDT Solomon Alamo MD [facility] CPT-10587 Level 3 Est. Patient 17:23:53 CDT Rikki Stearns PA [facility] CPT-72126 Level 3 Est. Patient 11:22:41 CDT Darryn Hearn [facility] Procedures Code Procedure Name Date Entry Date Standard Description CPT-48006 Venipuncture Draw Fee 12:43:48 SHUTTLE INSPECTOR CPT-39369 BMP - LAB USE ONLY 10:32:33 SHUTTLE INSPECTOR CPT-22427 Venipuncture Draw Fee 10:32:33 SHUTTLE INSPECTOR CPT-19879 Magnesium - LAB USE ONLY 09:54:30 CDT CPT-72321 TSH - LAB USE ONLY 09:54:30 CDT CPT-17290 Lipid - LAB USE ONLY 09:54:30 CDT CPT-83937 Venipuncture Draw Fee 09:54:29 CDT CPT-28414 Venipuncture Draw Fee 18:27:04 CDT CPT-64232 Chest 2V Frontal and Lat 10:57:00 SHUTTLE INSPECTOR CPT-95711 Venipuncture Draw Fee 10:56:59 SHUTTLE INSPECTOR CPT-82726 Venipuncture Draw Fee 09:22:28 SHUTTLE INSPECTOR CPT-12530 Chest 2V Frontal and Lat 09:22:27 SHUTTLE INSPECTOR CPT-I/D I/D Abscess 09:43:13 CDT CPT-08524 Venipuncture Draw Fee 08:16:46 SHUTTLE INSPECTOR CPT-10108 Venipuncture Draw Fee 08:18:55 SHUTTLE INSPECTOR CPT-04213 Venipuncture Draw Fee 08:31:18 SHUTTLE INSPECTOR CPT-39946 Venipuncture Draw Fee 11:42:52 SHUTTLE INSPECTOR CPT-57731 Venipuncture Draw Fee 13:26:37 SHUTTLE INSPECTOR CPT-79027 Venipuncture Draw Fee 09:23:38 SHUTTLE INSPECTOR CPT-000 Give Appropriate Tetanus Booster 10:23:50 CDT CPT-16075 Bone Density 08:28:45 CDT CPT-96533 Bone Density 11:35:15 CDT CPT-PV Prev. Care Visit 12:19:00 CDT CPT-82748 Venipuncture Draw Fee 15:02:58 CDT
--- OUTSIDE RECORDS SUMMARY | 2018-01-19 07:53 | XMS REPORT | Clinical Summary ---
Author Author Admin, E Organization [facility] Address Unknown Phone Unavailable Allergies, Adverse Reactions, Alerts Allergy Name Reaction Description Start Date Severity Status Provider SULFA facial swelling Critical Active Jocelyne Naff CUT OFF OPERATOR SCORER Conditions or Problems Problem Name Problem Code Onset Date Status Entry Date Provider Comment Standard Description Annotate G E R D 530.81 Active Jocelyne Naff CUT OFF OPERATOR SCORER Esophageal reflux FH COLON CANCER V16.0 Active Jocelyne Naff CUT OFF OPERATOR SCORER Family history of malignant neoplasm of gastrointestinal tract ESOPHAGEAL STRICTURE 530.3 Active Darryn Hearn PA Stricture and stenosis of esophagus CAROTID ARTERY STENOSIS, RIGHT 433.10 Active Rikki Stearns PA Occlusion and stenosis of carotid artery, without mention of cerebral infarction HEALTH SCREENING V70.0 Active Rose Darnell CUT OFF OPERATOR SCORER Routine general medical examination at a health [...] unspecified Vitamin D deficiency 268.9 Active Jennifer Chnu MD PhD Unspecified vitamin D deficiency Soft [...] Instruction CLARITIN 10 MG TABS 1prn LORATADINE 73923433425 No Longer Active Jocelyne Naff CUT OFF OPERATOR SCORER Active ASPIRIN 81 MG TABS 1qd ASPIRIN 99707428925 No Longer Active Jocelyne Naff CUT OFF OPERATOR SCORER Active DOXYCYCLINE HYCLATE 100 MG ORAL CAPS Take one bid DOXYCYCLINE HYCLATE 27724786929 Active Jocelyne Naff CUT OFF OPERATOR SCORER Active DOXYCYCLINE HYCLATE 100 MG CAP 1 cap by mouth twice daily DOXYCYCLINE HYCLATE 57618342973 No Longer Active Rikki GRANADOS Active VITAMIN D3 12223 UNIT CAPS 1 pill by mouth weekly, for vitamin D deficiency CHOLECALCIFEROL 51551281414 Active Jennifer Chun MD PhD Active ANASTROZOLE 1 MG ORAL TABS Take one by mouth daily ANASTROZOLE 33626347969 Active Jennifer Chun MD PhD Active ZITHROMAX 250 MG TAB 2 po today, then 1 po q days 2-5 AZITHROMYCIN 51594003435 No Longer Active Rikki GRANADOS Active MECLIZINE HCL 25 MG TABS 1 prn MECLIZINE HCL 33724521983 No Longer Active Solomon Alamo MD Active CHERATUSSIN AC SYRP prn as directed GUAIFENESIN- CODEINE SYRP 59927814587 No Longer Active Rikki GRANADOS Active MULTIVITAMINS TABS 1qd MULTIPLE VITAMIN 90846558135 No Longer Active Rikki Stearns PA Active OMEPRAZOLE 20 MG CPDR 1 PO Q D OMEPRAZOLE 39150210734 Active Rikki Daryn PA Active ZITHROMAX Z-CAROLYN 250 MG TABS 2x1day,4x0iwka AZITHROMYCIN 99186515142 No Longer Active Jocelyne Lovell CUT OFF OPERATOR SCORER Active MULTIVITAMINS TABS 1qd MULTIVITAMINS TABS MULTIPLE VITAMIN Inactive CHERATUSSIN AC SYRP prn as directed CHERATUSSIN AC SYRP GUAIFENESIN-CODEINE SYRP Inactive MECLIZINE HCL 25 MG TABS 1 prn MECLIZINE HCL 25 MG TABS 502554 MECLIZINE HCL Inactive ASPIRIN 81 MG TABS 1qd ASPIRIN 81 MG TABS 024710 ASPIRIN Inactive CLARITIN 10 MG TABS 1prn CLARITIN 10 MG TABS 070996 LORATADINE Inactive ZITHROMAX Z-CAROLYN 250 MG TABS 2x1day,6i2xdvr ZITHROMAX Z-CAROLYN 250 MG TABS 3651267 AZITHROMYCIN Inactive ZITHROMAX 250 MG TAB 2 po today, then 1 po q days 2-5 ZITHROMAX 250 MG TAB 4409567 AZITHROMYCIN Inactive DOXYCYCLINE HYCLATE 100 MG CAP 1 cap by mouth twice daily DOXYCYCLINE HYCLATE 100 MG CAP 7879621 DOXYCYCLINE HYCLATE Inactive Vital Signs Date Name [...] % 11.6-14.8 platelet count 131 10^3/MM^3 10*3/mm3 287-530 2960/12/12 leukocyte count, blood 28.6 10^3/MM^3 10*3/mm3 4.6-10.2 [...] % 11.6-14.8 platelet count 237 10^3/MM^3 10*3/mm3 913-228 1989/12/23 leukocyte count, blood 6.9 10^3/MM^3 10*3/mm3 4.6-10.2 [...] % 11.6-14.8 platelet count 360 10^3/MM^3 10*3/mm3 568-579 1743/12/31 leukocyte count, blood 5.3 10^3/MM^3 10*3/mm3 4.6-10.2 [...] % 11.6-14.8 platelet count 222 10^3/MM^3 10*3/mm3 948-077 2381/01/07 leukocyte count, blood 11.7 10^3/MM^3 10*3/mm3 4.6-10.2 [...] % 11.6-14.8 platelet count 191 10^3/MM^3 10*3/mm3 169-181 9080/01/20 leukocyte count, blood 9.8 10^3/MM^3 10*3/mm3 4.6-10.2 [...] % 11.6-14.8 platelet count 195 10^3/MM^3 10*3/mm3 733-635 3602/01/28 leukocyte count, blood 11.9 10^3/MM^3 10*3/mm3 4.6-10.2 [...] % 11.6-14.8 platelet count 278 10^3/MM^3 10*3/mm3 336-460 3776/02/04 leukocyte count, blood 8.5 10^3/MM^3 10*3/mm3 4.6-10.2 [...] % 11.6-14.8 platelet count 326 10^3/MM^3 10*3/mm3 032-121 0091/02/10 leukocyte count, blood 2.3 10^3/MM^3 10*3/mm3 4.6-10.2 [...] % 11.6-14.8 platelet count 240 10^3/MM^3 10*3/mm3 517-384 1359/02/17 leukocyte count, blood 3.4 10^3/MM^3 10*3/mm3 4.6-10.2 [...] % 11.6-14.8 platelet count 308 10^3/MM^3 10*3/mm3 658-094 1081/02/25 leukocyte count, blood 6.6 10^3/MM^3 10*3/mm3 4.6-10.2 [...] Panel - Chemistry sodium, serum 144 mmol/L 619-079 4783/12/16 potassium, serum 4.5 mmol/L 3.5-5.2 chloride, serum 107 mmol/L 98-107 carbon dioxide, venous blood 31.4 mmol/L 21.0-32.0 blood glucose 104 mg/dL 65-110 urea nitrogen, blood 17 mg/dL 7-18 creatinine, serum 1.10 mg/dL 0.60-1.30 alanine aminotransferase (SGPT), serum 25 U/L -78 aspartate aminotransferase (SGOT), serum 24 U/L 15-37 calcium, serum 8.4 mg/dL 8.5-10.1 bilirubin, serum, total 0.20 mg/dL 0.00-1.00 sodium, serum 141 mmol/L 621-984 6744/01/14 potassium, serum 4.9 mmol/L 3.5-5.2 chloride, serum [...] % 11.6-14.8 platelet count 376 10^3/MM^3 10*3/mm3 062-624 9893/12/16 leukocyte count, blood 19.5 10^3/MM^3 10*3/mm3 4.6-10.2 [...] Panel - Chemistry sodium, serum 140 mmol/L 398-712 7299/07/13 potassium, serum 4.5 mmol/L 3.5-5.2 chloride, serum 106 mmol/L 98-107 carbon dioxide, venous blood 27.7 mmol/L 21.0-32.0 blood glucose 105 mg/dL 65-110 urea nitrogen, blood 14 mg/dL 7-18 creatinine, serum 0.90 mg/dL 0.60-1.30 alanine aminotransferase (SGPT), serum 29 U/L 12-78 aspartate aminotransferase (SGOT), serum 22 U/L 15-37 calcium, serum 9.4 mg/dL 8.5-10.1 bilirubin, serum, total 0.70 mg/dL 0.00-1.00 cholesterol, serum 160 mg/dL 775-818 4808/07/13 triglyceride, serum, fasting 63 mg/dL 30-200 HDL [...] Panel - Chemistry sodium, serum 141 mmol/L 185-693 2412/02/10 potassium, serum 5.2 mmol/L 3.5-5.2 chloride, serum 106 mmol/L 98-107 carbon dioxide, venous blood 27.8 mmol/L 21.0-32.0 blood glucose 111 mg/dL 65-110 urea nitrogen, blood 18 mg/dL 7-18 creatinine, serum 0.90 mg/dL 0.60-1.30 alanine aminotransferase (SGPT), serum 29 U/L 12-78 aspartate aminotransferase (SGOT), serum 21 U/L 15-37 calcium, serum 8.3 mg/dL 8.5-10.1 bilirubin, serum, total 0.40 mg/dL 0.00-1.00 Lab Report: VITAMIN D, 25-HYDROXY/42624 - Chemistry vitamin D 25-hydroxy, serum 24 ng/mL 30-100 Encounters Code Encounter Date Provider Facility CPT-29264 Level 3 Est. Patient 13:25:16 CDT Jennifer Chun MD PhD [facility] CPT-26887 Level 3 Est. Patient 17:31:22 CDT Solomon Alamo MD [facility] CPT-92419 Level 3 Est. Patient 08:02:14 CDT Solomon Alamo MD [facility] CPT-62491 Level 3 Est. Patient 17:23:53 CDT Rikki GRANADOS [facility] CPT-76116 Level 3 Est. Patient 11:22:41 CDT Darryn Hearn [facility] Procedures Code Procedure Name Date Entry Date Standard Description CPT-I/D I/D Abscess 09:43:13 CDT CPT-76184 Venipuncture Draw Fee 08:16:46 PARK MAINTAINER CPT-11177 Venipuncture Draw Fee 08:18:55 PARK MAINTAINER CPT-86563 Venipuncture Draw Fee 08:31:18 PARK MAINTAINER CPT-61198 Venipuncture Draw Fee 11:42:52 PARK MAINTAINER CPT-29647 Venipuncture Draw Fee 13:26:37 PARK MAINTAINER CPT-93838 Venipuncture Draw Fee 09:23:38 PARK MAINTAINER CPT-000 Give Appropriate Tetanus Booster 10:23:50 CDT CPT-55040 Bone Density 08:28:45 CDT CPT-51841 Bone Density 11:35:15 CDT CPT-PV Prev. Care Visit 12:19:00 CDT CPT-96613 Venipuncture Draw Fee 15:02:58 CDT
--- OUTSIDE RECORDS SUMMARY | 2018-01-19 07:54 | XMS REPORT | Clinical Summary ---
Author Author Admin, E Organization [facility]– [place][note 2] Address Unknown Phone Unavailable Allergies, Adverse Reactions, Alerts Allergy Name Reaction Description Start Date Severity Status Provider SULFA facial swelling Critical Active Jocelyne Naff FIELD PARTY MANAGER Conditions or Problems Problem Name Problem Code Onset Date Status Entry Date Provider Comment Standard Description Annotate G E R D 530.81 Active Jocelyne Naff FIELD PARTY MANAGER Esophageal reflux FH COLON CANCER V16.0 Active Jocelyne Naff FIELD PARTY MANAGER Family history of malignant neoplasm of [...] a day as needed 2014 ALBUTEROL SULFATE 44733978498 Active Marta Yokum SPA ATTENDANT Active TUSSIONEX PENNKINETIC ER 10-8 MG/5ML LQCR 5ml po q12hr PRN Cough HYDROCOD POLST-CHLORPHEN POLST 65905413442 Active Marta Yokum SPA ATTENDANT Active LEVAQUIN 750 MG TABS 1 po qd x 7 days LEVOFLOXACIN 77209253748 Active Marta Viramontes SPA ATTENDANT Active FLONASE ALLERGY RELIEF 50 MCG/ACT NASAL SUSP spray twice in each nostril one time daily FLUTICASONE PROPIONATE 89264907293 Active Marta Chinoum SPA ATTENDANT Active LEVAQUIN 500 MG TAB 1 tablet by mouth daily LEVOFLOXACIN 79073048518 No Longer Active Marta Tenkum SPA ATTENDANT Active BENZONATATE 200 MG ORAL CAPS One capsule tid. BENZONATATE 11328420505 Active Marta Tenkum SPA ATTENDANT Active CHERATUSSIN AC 100-10 MG/5ML SYRP 1 tsp by mouth every 4 hours as needed for cough GUAIFENESIN-CODEINE 96428956477 No Longer Active Rikki Harms PA Active MUPIROCIN 2 % EXT OINT Use in each nostril in am and pm MUPIROCIN 88079204365 No Longer Active Rikki Harms PA Active DOXYCYCLINE HYCLATE 100 MG ORAL CAPS Take one bid DOXYCYCLINE HYCLATE 40368981163 No Longer Active Rikki Harms PA Active CLARITIN 10 MG TABS 1prn LORATADINE 85457594469 No Longer Active Jocelyne Naff FIELD PARTY MANAGER Active ASPIRIN 81 MG TABS 1qd ASPIRIN 00617341396 No Longer Active Jocelyne Naff FIELD PARTY MANAGER Active DOXYCYCLINE HYCLATE 100 MG CAP 1 cap by mouth twice daily DOXYCYCLINE HYCLATE 57195226150 No Longer Active Rikki Harms PA Active VITAMIN D3 61641 UNIT CAPS 1 pill by mouth weekly, for vitamin D deficiency CHOLECALCIFEROL 03244070570 No Longer Active Jennifer Chun MD PhD Active ANASTROZOLE 1 MG ORAL TABS Take one by mouth daily ANASTROZOLE 36042388721 Active Jennifer Chun MD PhD Active ZITHROMAX 250 MG TAB 2 po today, then 1 po q days 2-5 AZITHROMYCIN 76371389197 No Longer Active Rikki Harms PA Active MECLIZINE HCL 25 MG TABS 1 prn MECLIZINE HCL 36289009654 No Longer Active Solomon Alamo MD Active CHERATUSSIN AC SYRP prn as directed GUAIFENESIN- CODEINE SYRP 49531457833 No Longer Active Rikki Harms PA Active MULTIVITAMINS TABS 1qd MULTIPLE VITAMIN 82637051086 No Longer Active Rikki Harms PA Active OMEPRAZOLE 20 MG CPDR 1 PO Q D OMEPRAZOLE 46324887135 Active Marta Yokum SPA ATTENDANT Active ZITHROMAX Z-CAROLYN 250 MG TABS 2x1day,6z0dkgh AZITHROMYCIN 22077216515 No Longer Active Jocelyne Lovell FIELD PARTY MANAGER Active MULTIVITAMINS TABS 1qd MULTIVITAMINS TABS MULTIPLE VITAMIN Inactive CHERATUSSIN AC SYRP prn as directed CHERATUSSIN AC SYRP GUAIFENESIN-CODEINE SYRP Inactive MECLIZINE HCL 25 MG TABS 1 prn MECLIZINE HCL 25 MG TABS 768204 MECLIZINE HCL Inactive ASPIRIN 81 MG TABS 1qd ASPIRIN 81 MG TABS 530747 ASPIRIN Inactive CLARITIN 10 MG TABS 1prn CLARITIN 10 MG TABS 717954 LORATADINE Inactive DOXYCYCLINE HYCLATE 100 MG ORAL CAPS Take one bid DOXYCYCLINE HYCLATE 100 MG ORAL CAPS 5294964 DOXYCYCLINE HYCLATE Inactive MUPIROCIN 2 % EXT OINT Use in each nostril in am and pm MUPIROCIN 2 % EXT OINT 828373 MUPIROCIN Inactive CHERATUSSIN AC 100-10 MG/5ML SYRP 1 tsp by mouth every 4 hours as needed for cough CHERATUSSIN AC 100-10 MG/5ML SYRP 359187 GUAIFENESIN-CODEINE Inactive LEVAQUIN 500 MG TAB 1 tablet by mouth daily LEVAQUIN 500 MG TAB 490993 LEVOFLOXACIN Inactive ZITHROMAX Z-CAROLYN 250 MG TABS 2x1day,4a2jefa ZITHROMAX Z-CAROLYN 250 MG TABS 9131732 AZITHROMYCIN Inactive ZITHROMAX 250 MG TAB 2 po today, then 1 po q days 2-5 ZITHROMAX 250 MG TAB 9726948 AZITHROMYCIN Inactive VITAMIN D3 78196 UNIT CAPS 1 pill by mouth weekly, for vitamin D deficiency VITAMIN D3 35714 UNIT CAPS CHOLECALCIFEROL Inactive DOXYCYCLINE HYCLATE 100 MG CAP 1 cap by mouth twice daily DOXYCYCLINE HYCLATE 100 MG CAP 2418584 DOXYCYCLINE HYCLATE Inactive Vital Signs Date Name [...] % 11.6-14.8 platelet count 195 10^3/MM^3 10*3/mm3 283-530 1040/01/28 leukocyte count, blood 11.9 10^3/MM^3 10*3/mm3 4.6-10.2 [...] % 11.6-14.8 platelet count 278 10^3/MM^3 10*3/mm3 496-389 1791/02/04 leukocyte count, blood 8.5 10^3/MM^3 10*3/mm3 4.6-10.2 [...] % 11.6-14.8 platelet count 326 10^3/MM^3 10*3/mm3 586-971 2295/02/10 leukocyte count, blood 2.3 10^3/MM^3 10*3/mm3 4.6-10.2 [...] % 11.6-14.8 platelet count 240 10^3/MM^3 10*3/mm3 406-159 9662/02/17 leukocyte count, blood 3.4 10^3/MM^3 10*3/mm3 4.6-10.2 [...] % 11.6-14.8 platelet count 308 10^3/MM^3 10*3/mm3 583-249 9468/02/25 leukocyte count, blood 6.6 10^3/MM^3 10*3/mm3 4.6-10.2 [...] % 11.6-14.8 platelet count 433 10^3/MM^3 10*3/mm3 916-564 8071/01/07 leukocyte count, blood 11.7 10^3/MM^3 10*3/mm3 4.6-10.2 [...] % 11.6-14.8 platelet count 191 10^3/MM^3 10*3/mm3 305-648 3239/11/11 leukocyte count, blood 2.0 10^3/MM^3 10*3/mm3 4.6-10.2 [...] % 11.6-14.8 platelet count 203 10^3/MM^3 10*3/mm3 208-177 7535/11/18 leukocyte count, blood 8.5 10^3/MM^3 10*3/mm3 4.6-10.2 [...] % 11.6-14.8 platelet count 143 10^3/MM^3 10*3/mm3 167-007 8193/11/25 leukocyte count, blood 2.1 10^3/MM^3 10*3/mm3 4.6-10.2 [...] % 11.6-14.8 platelet count 139 10^3/MM^3 10*3/mm3 074-202 8213/12/02 leukocyte count, blood 6.7 10^3/MM^3 10*3/mm3 4.6-10.2 [...] % 11.6-14.8 platelet count 258 10^3/MM^3 10*3/mm3 917-140 6597/12/09 leukocyte count, blood 5.3 10^3/MM^3 10*3/mm3 4.6-10.2 [...] % 11.6-14.8 platelet count 240 10^3/MM^3 10*3/mm3 129-207 1729/12/16 leukocyte count, blood 3.2 10^3/MM^3 10*3/mm3 4.6-10.2 [...] % 11.6-14.8 platelet count 158 10^3/MM^3 10*3/mm3 810-360 0798/12/18 leukocyte count, blood 8.8 10^3/MM^3 10*3/mm3 4.6-10.2 [...] % 11.6-14.8 platelet count 207 10^3/MM^3 10*3/mm3 732-574 6544/12/23 leukocyte count, blood 6.2 10^3/MM^3 10*3/mm3 4.6-10.2 [...] % 11.6-14.8 platelet count 183 10^3/MM^3 10*3/mm3 254-161 5309/12/30 leukocyte count, blood 5.2 10^3/MM^3 10*3/mm3 4.6-10.2 [...] Panel - Chemistry sodium, serum 138 mmol/L 593-483 7743/11/04 carbon dioxide, venous blood 27.7 mmol/L 21.0-32.0 potassium, serum 4.9 mmol/L 3.5-5.2 chloride, serum 104 mmol/L 98-107 blood glucose 92 mg/dL 65-110 urea nitrogen, blood 24 mg/dL 7-18 creatinine, serum 0.95 mg/dL 0.55-1.30 alanine aminotransferase (SGPT), serum 34 U/L -78 aspartate aminotransferase (SGOT), serum 23 U/L 15-37 calcium, serum 8.9 mg/dL 8.5-10.1 bilirubin, serum, total 0.70 mg/dL 0.00-1.00 sodium, serum 140 mmol/L 891-086 6683/01/06 carbon dioxide, venous blood 27.2 mmol/L 21.0-32.0 potassium, serum 4.1 mmol/L 3.5-5.2 chloride, serum 105 mmol/L 98-107 blood glucose 70 mg/dL 65-110 urea nitrogen, blood 25 mg/dL 7-18 creatinine, serum 0.90 mg/dL 0.55-1.30 alanine aminotransferase (SGPT), serum 28 U/L aspartate aminotransferase (SGOT), serum 20 U/L 15-37 calcium, serum 8.9 mg/dL 8.5-10.1 bilirubin, serum, total 0.40 mg/dL 0.00-1.00 sodium, serum 141 mmol/L 108-257 0512/01/14 potassium, serum 4.9 mmol/L 3.5-5.2 chloride, serum [...] % 11.6-14.8 platelet count 216 10^3/MM^3 10*3/mm3 344-004 1458/01/14 leukocyte count, blood 6.7 10^3/MM^3 10*3/mm3 4.6-10.2 [...] % 11.6-14.8 platelet count 376 10^3/MM^3 10*3/mm3 997-142 3160/01/06 leukocyte count, blood 4.1 10^3/MM^3 10*3/mm3 4.6-10.2 [...] Panel - Chemistry sodium, serum 140 mmol/L 663-062 6222/07/13 potassium, serum 4.5 mmol/L 3.5-5.2 chloride, serum 106 mmol/L 98-107 carbon dioxide, venous blood 27.7 mmol/L 21.0-32.0 blood glucose 105 mg/dL 65-110 urea nitrogen, blood 14 mg/dL 7-18 creatinine, serum 0.90 mg/dL 0.60-1.30 alanine aminotransferase (SGPT), serum 29 U/L 12-78 aspartate aminotransferase (SGOT), serum 22 U/L 15-37 calcium, serum 9.4 mg/dL 8.5-10.1 bilirubin, serum, total 0.70 mg/dL 0.00-1.00 cholesterol, serum 160 mg/dL 021-919 2240/07/13 triglyceride, serum, fasting 63 mg/dL 30-200 HDL [...] Panel - Chemistry sodium, serum 141 mmol/L 624-580 3682/02/10 potassium, serum 5.2 mmol/L 3.5-5.2 chloride, serum 106 mmol/L 98-107 carbon dioxide, venous blood 27.8 mmol/L 21.0-32.0 blood glucose 111 mg/dL 65-110 urea nitrogen, blood 18 mg/dL 7-18 creatinine, serum 0.90 mg/dL 0.60-1.30 alanine aminotransferase (SGPT), serum 29 U/L 12-78 aspartate aminotransferase (SGOT), serum 21 U/L 15-37 calcium, serum 8.3 mg/dL 8.5-10.1 bilirubin, serum, total 0.40 mg/dL 0.00-1.00 sodium, serum 141 mmol/L 037-438 7457/11/11 carbon dioxide, venous blood 26.8 mmol/L 21.0-32.0 potassium, serum 4.2 mmol/L 3.5-5.2 chloride, serum 106 mmol/L 98-107 blood glucose 95 mg/dL 65-110 urea nitrogen, blood 18 mg/dL 7-18 creatinine, serum 0.70 mg/dL 0.55-1.30 alanine aminotransferase (SGPT), serum 33 U/L -78 aspartate aminotransferase (SGOT), serum 22 U/L 15-37 calcium, serum 8.5 mg/dL 8.5-10.1 bilirubin, serum, total 0.30 mg/dL 0.00-1.00 sodium, serum 143 mmol/L 831-747 3812/12/23 carbon dioxide, venous blood 24.6 mmol/L 21.0-32.0 potassium, serum 4.1 mmol/L 3.5-5.2 chloride, serum 107 mmol/L 98-107 blood glucose 98 mg/dL 65-110 urea nitrogen, blood 22 mg/dL 7-18 creatinine, serum 0.77 mg/dL 0.55-1.30 alanine aminotransferase (SGPT), serum 28 U/L aspartate aminotransferase (SGOT), serum 20 U/L 15-37 calcium, serum 8.6 mg/dL 8.5-10.1 bilirubin, serum, total 0.30 mg/dL 0.00-1.00 sodium, serum 142 mmol/L 664-331 5505/12/09 carbon dioxide, venous blood 28.5 mmol/L 21.0-32.0 potassium, serum 5.0 mmol/L 3.5-5.2 chloride, serum 109 mmol/L 98-107 blood glucose 91 mg/dL 65-110 urea nitrogen, blood 27 mg/dL 7-18 creatinine, serum 0.88 mg/dL 0.55-1.30 alanine aminotransferase (SGPT), serum 31 U/L aspartate aminotransferase (SGOT), serum 18 U/L - calcium, serum 8.9 mg/dL 8.5-10.1 bilirubin, serum, total 0.40 mg/dL 0.00-1.00 sodium, serum 140 mmol/L 240-493 0022/12/16 carbon dioxide, venous blood 25.4 mmol/L 21.0-32.0 potassium, serum 4.1 mmol/L 3.5-5.2 chloride, serum 104 mmol/L 98-107 blood glucose 110 mg/dL 65-110 urea nitrogen, blood 24 mg/dL 7-18 creatinine, serum 0.87 mg/dL 0.55-1.30 alanine aminotransferase (SGPT), serum 35 U/L aspartate aminotransferase (SGOT), serum 21 U/L - calcium, serum 8.4 mg/dL 8.5-10.1 bilirubin, serum, total 0.50 mg/dL 0.00-1.00 sodium, serum 141 mmol/L 577-994 4994/12/02 carbon dioxide, venous blood 25.9 mmol/L 21.0-32.0 potassium, serum 4.7 mmol/L 3.5-5.2 chloride, serum 106 mmol/L 98-107 blood glucose 78 mg/dL 65-110 urea nitrogen, blood 24 mg/dL 7-18 creatinine, serum 0.75 mg/dL 0.55-1.30 alanine aminotransferase (SGPT), serum 31 U/L -78 aspartate aminotransferase (SGOT), serum 20 U/L 15-37 calcium, serum 8.7 mg/dL 8.5-10.1 bilirubin, serum, total 0.30 mg/dL 0.00-1.00 sodium, serum 141 mmol/L 920-773 8668/11/18 carbon dioxide, venous blood 26.2 mmol/L 21.0-32.0 potassium, serum 4.4 mmol/L 3.5-5.2 chloride, serum 106 mmol/L 98-107 blood glucose 102 mg/dL 65-110 urea nitrogen, blood 24 mg/dL 7-18 creatinine, serum 0.77 mg/dL 0.55-1.30 alanine aminotransferase (SGPT), serum 30 U/L 78 aspartate aminotransferase (SGOT), serum 15 U/L 15-37 calcium, serum 8.3 mg/dL 8.5-10.1 bilirubin, serum, total 0.30 mg/dL 0.00-1.00 sodium, serum 139 mmol/L 562-955 4189/11/25 carbon dioxide, venous blood 27.9 mmol/L 21.0-32.0 potassium, serum 4.7 mmol/L 3.5-5.2 chloride, serum 105 mmol/L 98-107 blood glucose 94 mg/dL 65-110 urea nitrogen, blood 21 mg/dL 7-18 creatinine, serum 0.79 mg/dL 0.55-1.30 alanine aminotransferase (SGPT), serum 40 U/L 12-78 aspartate aminotransferase (SGOT), serum 22 U/L 15-37 calcium, serum 8.5 mg/dL 8.5-10.1 bilirubin, serum, total 0.80 mg/dL 0.00-1.00 sodium, serum 139 mmol/L 482-521 7336/12/30 carbon dioxide, venous blood 28.2 mmol/L 21.0-32.0 potassium, serum 3.9 mmol/L 3.5-5.2 chloride, serum 105 mmol/L 98-107 blood glucose 91 mg/dL 65-110 urea nitrogen, blood 17 mg/dL 7-18 creatinine, serum 0.81 mg/dL 0.55-1.30 alanine aminotransferase (SGPT), serum 29 U/L -78 aspartate aminotransferase (SGOT), serum 22 U/L 15-37 calcium, serum 8.8 mg/dL 8.5-10.1 bilirubin, serum, total 0.50 mg/dL 0.00-1.00 Lab Report: VITAMIN D, 25-HYDROXY/64829 - Chemistry vitamin D 25-hydroxy, serum 24 ng/mL 30-100 Encounters Code Encounter Date Provider Facility CPT-51081 Level 2 Est. Patient 14:30:43 BUSINESS PROFESSOR Marta Viramontes [facility] CPT-27515 Level 4 Est. Patient 09:14:36 BUSINESS PROFESSOR Rikki GRANADOS [facility] [place][note 2] CPT-94452 Level 2 Est. Patient 09:07:32 CDT Marta Viramontes [facility] CPT-87420 Level 4 Est. Patient 11:55:00 CDT Rikki GRANADOS [facility] [place][note 2] CPT-59019 Level 3 Est. Patient 13:25:16 CDT Jennifer Chun MD PhD [facility] CPT-87298 Level 3 Est. Patient 17:31:22 CDT Solomon Alamo MD [facility] CPT-85470 Level 3 Est. Patient 08:02:14 CDT Solomon lAamo MD [facility] CPT-72797 Level 3 Est. Patient 17:23:53 CDT Rikki GRANADOS [facility] [place][note 2] CPT-32569 Level 3 Est. Patient 11:22:41 CDT Darryn Hearn [facility] Procedures Code Procedure Name Date Entry Date Standard Description CPT-39224 Venipuncture Draw Fee 09:22:28 BUSINESS PROFESSOR CPT-35703 Chest 2V Frontal and Lat 09:22:27 BUSINESS PROFESSOR CPT-I/D I/D Abscess 09:43:13 CDT CPT-83963 Venipuncture Draw Fee 08:16:46 BUSINESS PROFESSOR CPT-95215 Venipuncture Draw Fee 08:18:55 BUSINESS PROFESSOR CPT-77199 Venipuncture Draw Fee 08:31:18 BUSINESS PROFESSOR CPT-97896 Venipuncture Draw Fee 11:42:52 BUSINESS PROFESSOR CPT-59270 Venipuncture Draw Fee 13:26:37 BUSINESS PROFESSOR CPT-96446 Venipuncture Draw Fee 09:23:38 BUSINESS PROFESSOR CPT-000 Give Appropriate Tetanus Booster 10:23:50 CDT CPT-11724 Bone Density 08:28:45 CDT CPT-84169 Bone Density 11:35:15 CDT CPT-PV Prev. Care Visit 12:19:00 CDT CPT-58078 Venipuncture Draw Fee 15:02:58 CDT
--- OUTSIDE RECORDS SUMMARY | 2018-01-19 07:57 | XMS REPORT | Clinical Summary ---
Author Author Admin, E Organization [facility] Address Unknown Phone Unavailable Allergies, Adverse Reactions, Alerts Allergy Name Reaction Description Start Date Severity Status Provider SULFA facial swelling Critical Active Jocelyne Naff SPECIAL NEEDS CAREGIVER Conditions or Problems Problem Name Problem Code Onset Date Status Entry Date Provider Comment Standard Description Annotate G E R D 530.81 Active Jocelyne Naff SPECIAL NEEDS CAREGIVER Esophageal reflux FH COLON CANCER V16.0 Active Jocelyne Naff SPECIAL NEEDS CAREGIVER Family history of malignant neoplasm of gastrointestinal [...] unspecified sites Rash 782.1 Active Marta Viramontes AREA COUNSELOR Rash and other nonspecific skin eruption Adenocarcinoma, [...] 5, 1 tab on day 6 METHYLPREDNISOLONE 53999380005 No Longer Active Rikki GRANADOS Active ALBUTEROL SULFATE 0.083 % NEBU SOLN one vial per nebulizer every 4-6 hours as needed ALBUTEROL SULFATE 65754674420 Active Rikki Harms PA Active LEVAQUIN 750 MG TABS 1 po qd x 7 days LEVOFLOXACIN 38211999314 No Longer Active Rikki Harms PA Active LEVAQUIN 500 MG ORAL TABS Take one tablet daily LEVOFLOXACIN 05826828099 No Longer Active Rikki Harms PA Active PROAIR HFA 108 (90 BASE) MCG/ACT AERS 2 puffs four times a day as needed 2014 ALBUTEROL SULFATE 37216394147 Active Marta Yokum AREA COUNSELOR Active TUSSIONEX PENNKINETIC ER 10-8 MG/5ML LQCR 5ml po q12hr PRN Cough HYDROCOD POLST-CHLORPHEN POLST 39471731626 Active Rikki Harms PA Active FLONASE ALLERGY RELIEF 50 MCG/ACT NASAL SUSP spray twice in each nostril one time daily FLUTICASONE PROPIONATE 29626270271 Active Marta Yokum AREA COUNSELOR Active LEVAQUIN 500 MG TAB 1 tablet by mouth daily LEVOFLOXACIN 77980883251 No Longer Active Marta Yokum AREA COUNSELOR Active BENZONATATE 200 MG ORAL CAPS One capsule tid. BENZONATATE 32357779978 Active Marta Yokum AREA COUNSELOR Active CHERATUSSIN AC 100-10 MG/5ML SYRP 1 tsp by mouth every 4 hours as needed for cough GUAIFENESIN-CODEINE 55644976530 No Longer Active Rikki Harms PA Active MUPIROCIN 2 % EXT OINT Use in each nostril in am and pm MUPIROCIN 19733995794 No Longer Active Rikki Harms PA Active DOXYCYCLINE HYCLATE 100 MG ORAL CAPS Take one bid DOXYCYCLINE HYCLATE 59103174258 No Longer Active Rikki Harms PA Active CLARITIN 10 MG TABS 1prn LORATADINE 85121125957 No Longer Active Jocelyne Naff SPECIAL NEEDS CAREGIVER Active ASPIRIN 81 MG TABS 1qd ASPIRIN 76495712528 No Longer Active Jocelyne Naff SPECIAL NEEDS CAREGIVER Active DOXYCYCLINE HYCLATE 100 MG CAP 1 cap by mouth twice daily DOXYCYCLINE HYCLATE 98169863746 No Longer Active Rikki Harms PA Active VITAMIN D3 01726 UNIT CAPS 1 pill by mouth weekly, for vitamin D deficiency CHOLECALCIFEROL 86321211924 No Longer Active Jennfier Chun MD PhD Active ANASTROZOLE 1 MG ORAL TABS Take one by mouth daily ANASTROZOLE 16034193093 Active Jennifer Chun MD PhD Active ZITHROMAX 250 MG TAB 2 po today, then 1 po q days 2-5 AZITHROMYCIN 56877290539 No Longer Active Rikki Harms PA Active MECLIZINE HCL 25 MG TABS 1 prn MECLIZINE HCL 28507287854 No Longer Active Solomon Alamo MD Active CHERATUSSIN AC SYRP prn as directed GUAIFENESIN- CODEINE SYRP 24663333328 No Longer Active Rikki Harms PA Active MULTIVITAMINS TABS 1qd MULTIPLE VITAMIN 42138167120 No Longer Active Rikki Harms PA Active OMEPRAZOLE 20 MG CPDR 1 PO Q D OMEPRAZOLE 19108205740 Active Rikki Harms PA Active ZITHROMAX Z-CAROLYN 250 MG TABS 2x1day,9s7xicx AZITHROMYCIN 91051650994 No Longer Active Jocelyne Naff SPECIAL NEEDS CAREGIVER Active MULTIVITAMINS TABS 1qd MULTIVITAMINS TABS MULTIPLE VITAMIN Inactive CHERATUSSIN AC SYRP prn as directed CHERATUSSIN AC SYRP GUAIFENESIN-CODEINE SYRP Inactive MECLIZINE HCL 25 MG TABS 1 prn MECLIZINE HCL 25 MG TABS 355864 MECLIZINE HCL Inactive ASPIRIN 81 MG TABS 1qd ASPIRIN 81 MG TABS 670722 ASPIRIN Inactive CLARITIN 10 MG TABS 1prn CLARITIN 10 MG TABS 428406 LORATADINE Inactive DOXYCYCLINE HYCLATE 100 MG ORAL CAPS Take one bid DOXYCYCLINE HYCLATE 100 MG ORAL CAPS 8123178 DOXYCYCLINE HYCLATE Inactive MUPIROCIN 2 % EXT OINT Use in each nostril in am and pm MUPIROCIN 2 % EXT OINT 665196 MUPIROCIN Inactive CHERATUSSIN AC 100-10 MG/5ML SYRP 1 tsp by mouth every 4 hours as needed for cough CHERATUSSIN AC 100-10 MG/5ML SYRP 746307 GUAIFENESIN-CODEINE Inactive LEVAQUIN 500 MG TAB 1 tablet by mouth daily LEVAQUIN 500 MG TAB 657674 LEVOFLOXACIN Inactive LEVAQUIN 500 MG ORAL TABS Take one tablet daily LEVAQUIN 500 MG ORAL TABS 886761 LEVOFLOXACIN Inactive LEVAQUIN 750 MG TABS 1 po qd x 7 days LEVAQUIN 750 MG TABS 354759 LEVOFLOXACIN Inactive ZITHROMAX Z-CAROLYN 250 MG TABS 2x1day,9l4ngca ZITHROMAX Z-CAROLYN 250 MG TABS 2412271 AZITHROMYCIN Inactive ZITHROMAX 250 MG TAB 2 po today, then 1 po q days 2-5 ZITHROMAX 250 MG TAB 9492688 AZITHROMYCIN Inactive VITAMIN D3 47139 UNIT CAPS 1 pill by mouth weekly, for vitamin D deficiency VITAMIN D3 53078 UNIT CAPS CHOLECALCIFEROL Inactive DOXYCYCLINE HYCLATE 100 MG CAP 1 cap by mouth twice daily DOXYCYCLINE HYCLATE 100 MG CAP 0278043 DOXYCYCLINE HYCLATE Inactive MEDROL (CAROLYN) 4 MG [...] % 11.6-14.8 platelet count 143 10^3/MM^3 10*3/mm3 302-955 4682/11/25 leukocyte count, blood 2.1 10^3/MM^3 10*3/mm3 4.6-10.2 [...] % 11.6-14.8 platelet count 139 10^3/MM^3 10*3/mm3 237-377 3626/12/02 leukocyte count, blood 6.7 10^3/MM^3 10*3/mm3 4.6-10.2 [...] % 11.6-14.8 platelet count 258 10^3/MM^3 10*3/mm3 429-961 3181/12/09 leukocyte count, blood 5.3 10^3/MM^3 10*3/mm3 4.6-10.2 [...] % 11.6-14.8 platelet count 240 10^3/MM^3 10*3/mm3 443-187 0806/12/16 leukocyte count, blood 3.2 10^3/MM^3 10*3/mm3 4.6-10.2 [...] % 11.6-14.8 platelet count 158 10^3/MM^3 10*3/mm3 525-696 0692/12/18 leukocyte count, blood 8.8 10^3/MM^3 10*3/mm3 4.6-10.2 [...] % 11.6-14.8 platelet count 207 10^3/MM^3 10*3/mm3 418-782 3090/12/23 leukocyte count, blood 6.2 10^3/MM^3 10*3/mm3 4.6-10.2 [...] % 11.6-14.8 platelet count 183 10^3/MM^3 10*3/mm3 270-660 9356/11/11 leukocyte count, blood 2.0 10^3/MM^3 10*3/mm3 4.6-10.2 [...] % 11.6-14.8 platelet count 203 10^3/MM^3 10*3/mm3 401-206 1717/12/30 leukocyte count, blood 5.2 10^3/MM^3 10*3/mm3 4.6-10.2 [...] % 11.6-14.8 platelet count 200 10^3/MM^3 10*3/mm3 215-658 9564/03/02 leukocyte count, blood 5.1 10^3/MM^3 10*3/mm3 4.6-10.2 [...] Panel - Chemistry sodium, serum 142 mmol/L 167-618 2218/02/04 carbon dioxide, venous blood 24.9 mmol/L 21.0-32.0 potassium, serum 4.1 mmol/L 3.5-5.2 chloride, serum 106 mmol/L 98-107 blood glucose 103 mg/dL 65-110 urea nitrogen, blood 25 mg/dL 7-18 creatinine, serum 0.83 mg/dL 0.55-1.30 alanine aminotransferase (SGPT), serum 38 U/L 12-78 aspartate aminotransferase (SGOT), serum 26 U/L 15-37 calcium, serum 8.7 mg/dL 8.5-10.1 bilirubin, serum, total 0.30 mg/dL 0.00-1.00 sodium, serum 140 mmol/L 076-785 0813/01/13 carbon dioxide, venous blood 26.4 mmol/L 21.0-32.0 potassium, serum 4.2 mmol/L 3.5-5.2 chloride, serum 104 mmol/L 98-107 blood glucose 101 mg/dL 65-110 urea nitrogen, blood 18 mg/dL 7-18 creatinine, serum 0.80 mg/dL 0.55-1.30 alanine aminotransferase (SGPT), serum 28 U/L aspartate aminotransferase (SGOT), serum 24 U/L 15-37 calcium, serum 8.7 mg/dL 8.5-10.1 bilirubin, serum, total 0.50 mg/dL 0.00-1.00 sodium, serum 138 mmol/L 790-038 9531/11/04 carbon dioxide, venous blood 27.7 mmol/L 21.0-32.0 potassium, serum 4.9 mmol/L 3.5-5.2 chloride, serum 104 mmol/L 98-107 blood glucose 92 mg/dL 65-110 urea nitrogen, blood 24 mg/dL 7-18 creatinine, serum 0.95 mg/dL 0.55-1.30 alanine aminotransferase (SGPT), serum 34 U/L aspartate aminotransferase (SGOT), serum 23 U/L - calcium, serum 8.9 mg/dL 8.5-10.1 bilirubin, serum, total 0.70 mg/dL 0.00-1.00 sodium, serum 140 mmol/L 162-932 4035/01/06 carbon dioxide, venous blood 27.2 mmol/L 21.0-32.0 [...] % 11.6-14.8 platelet count 289 10^3/MM^3 10*3/mm3 732-334 2027/01/06 leukocyte count, blood 4.1 10^3/MM^3 10*3/mm3 4.6-10.2 [...] % 11.6-14.8 platelet count 297 10^3/MM^3 10*3/mm3 909-454 0932/02/04 leukocyte count, blood 4.2 10^3/MM^3 10*3/mm3 4.6-10.2 [...] % 11.6-14.8 platelet count 271 10^3/MM^3 10*3/mm3 370-882 3752/11/04 leukocyte count, blood 3.8 10^3/MM^3 10*3/mm3 4.6-10.2 [...] Panel - Chemistry sodium, serum 140 mmol/L 082-089 3425/07/13 potassium, serum 4.5 mmol/L 3.5-5.2 chloride, serum 106 mmol/L 98-107 carbon dioxide, venous blood 27.7 mmol/L 21.0-32.0 blood glucose 105 mg/dL 65-110 urea nitrogen, blood 14 mg/dL 7-18 creatinine, serum 0.90 mg/dL 0.60-1.30 alanine aminotransferase (SGPT), serum 29 U/L 12-78 aspartate aminotransferase (SGOT), serum 22 U/L 15-37 calcium, serum 9.4 mg/dL 8.5-10.1 bilirubin, serum, total 0.70 mg/dL 0.00-1.00 cholesterol, serum 160 mg/dL 555-115 9365/07/13 triglyceride, serum, fasting 63 mg/dL 30-200 HDL [...] Panel - Chemistry sodium, serum 141 mmol/L 297-191 4804/11/18 carbon dioxide, venous blood 26.2 mmol/L 21.0-32.0 potassium, serum 4.4 mmol/L 3.5-5.2 chloride, serum 106 mmol/L 98-107 blood glucose 102 mg/dL 65-110 urea nitrogen, blood 24 mg/dL 7-18 creatinine, serum 0.77 mg/dL 0.55-1.30 alanine aminotransferase (SGPT), serum 30 U/L 12-78 aspartate aminotransferase (SGOT), serum 15 U/L 15-37 calcium, serum 8.3 mg/dL 8.5-10.1 bilirubin, serum, total 0.30 mg/dL 0.00-1.00 sodium, serum 139 mmol/L 887-591 4335/11/25 carbon dioxide, venous blood 27.9 mmol/L 21.0-32.0 potassium, serum 4.7 mmol/L 3.5-5.2 chloride, serum 105 mmol/L 98-107 blood glucose 94 mg/dL 65-110 urea nitrogen, blood 21 mg/dL 7-18 creatinine, serum 0.79 mg/dL 0.55-1.30 alanine aminotransferase (SGPT), serum 40 U/L aspartate aminotransferase (SGOT), serum 22 U/L 15-37 calcium, serum 8.5 mg/dL 8.5-10.1 bilirubin, serum, total 0.80 mg/dL 0.00-1.00 sodium, serum 142 mmol/L 399-477 7398/12/09 carbon dioxide, venous blood 28.5 mmol/L 21.0-32.0 potassium, serum 5.0 mmol/L 3.5-5.2 chloride, serum 109 mmol/L 98-107 blood glucose 91 mg/dL 65-110 urea nitrogen, blood 27 mg/dL - creatinine, serum 0.88 mg/dL 0.55-1.30 alanine aminotransferase (SGPT), serum 31 U/L aspartate aminotransferase (SGOT), serum 18 U/L 15-37 calcium, serum 8.9 mg/dL 8.5-10.1 bilirubin, serum, total 0.40 mg/dL 0.00-1.00 sodium, serum 140 mmol/L 755-237 0253/12/16 carbon dioxide, venous blood 25.4 mmol/L 21.0-32.0 potassium, serum 4.1 mmol/L 3.5-5.2 chloride, serum 104 mmol/L 98-107 blood glucose 110 mg/dL 65-110 urea nitrogen, blood 24 mg/dL 7- creatinine, serum 0.87 mg/dL 0.55-1.30 alanine aminotransferase (SGPT), serum 35 U/L aspartate aminotransferase (SGOT), serum 21 U/L 15-37 calcium, serum 8.4 mg/dL 8.5-10.1 bilirubin, serum, total 0.50 mg/dL 0.00-1.00 sodium, serum 141 mmol/L 258-822 1885/12/02 carbon dioxide, venous blood 25.9 mmol/L 21.0-32.0 potassium, serum 4.7 mmol/L 3.5-5.2 chloride, serum 106 mmol/L 98-107 blood glucose 78 mg/dL 65-110 urea nitrogen, blood 24 mg/dL 7-18 creatinine, serum 0.75 mg/dL 0.55-1.30 alanine aminotransferase (SGPT), serum 31 U/L aspartate aminotransferase (SGOT), serum 20 U/L -37 calcium, serum 8.7 mg/dL 8.5-10.1 bilirubin, serum, total 0.30 mg/dL 0.00-1.00 sodium, serum 139 mmol/L 932-108 0901/12/30 carbon dioxide, venous blood 28.2 mmol/L 21.0-32.0 potassium, serum 3.9 mmol/L 3.5-5.2 chloride, serum 105 mmol/L 98-107 blood glucose 91 mg/dL 65-110 urea nitrogen, blood 17 mg/dL 7-18 creatinine, serum 0.81 mg/dL 0.55-1.30 alanine aminotransferase (SGPT), serum 29 U/L aspartate aminotransferase (SGOT), serum 22 U/L 15-37 calcium, serum 8.8 mg/dL 8.5-10.1 bilirubin, serum, total 0.50 mg/dL 0.00-1.00 sodium, serum 141 mmol/L 877-353 5983/11/11 carbon dioxide, venous blood 26.8 mmol/L 21.0-32.0 potassium, serum 4.2 mmol/L 3.5-5.2 chloride, serum 106 mmol/L 98-107 blood glucose 95 mg/dL 65-110 urea nitrogen, blood 18 mg/dL 7-18 creatinine, serum 0.70 mg/dL 0.55-1.30 alanine aminotransferase (SGPT), serum 33 U/L 12-78 aspartate aminotransferase (SGOT), serum 22 U/L 15-37 calcium, serum 8.5 mg/dL 8.5-10.1 bilirubin, serum, total 0.30 mg/dL 0.00-1.00 sodium, serum 143 mmol/L 191-370 9240/12/23 carbon dioxide, venous blood 24.6 mmol/L 21.0-32.0 potassium, serum 4.1 mmol/L 3.5-5.2 chloride, serum 107 mmol/L 98-107 blood glucose 98 mg/dL 65-110 urea nitrogen, blood 22 mg/dL 7-18 creatinine, serum 0.77 mg/dL 0.55-1.30 alanine aminotransferase (SGPT), serum 28 U/L -78 aspartate aminotransferase (SGOT), serum 20 U/L 15-37 calcium, serum 8.6 mg/dL 8.5-10.1 bilirubin, serum, total 0.30 mg/dL 0.00-1.00 Lab Report: VITAMIN D, 25-HYDROXY/78007 - Chemistry vitamin D 25-hydroxy, serum 24 ng/mL 30-100 Encounters Code Encounter Date Provider Facility CPT-63486 Level 2 Est. Patient 14:30:43 PILE DRIVER OPERATOR HELPER Marta Viramontes [facility] CPT-49893 Level 4 Est. Patient 09:14:36 PILE DRIVER OPERATOR HELPER Rikki GRANADOS [facility] CPT-42133 Level 2 Est. Patient 09:07:32 CDT Marta Viramontes AREA COUNSELOR [facility] CPT-53448 Level 4 Est. Patient 11:55:00 CDT Rikki GRANADOS [facility] CPT-01634 Level 3 Est. Patient 13:25:16 CDT Jennifer Chun MD PhD [facility] CPT-34195 Level 3 Est. Patient 17:31:22 CDT Solomon Alamo MD [facility] CPT-84829 Level 3 Est. Patient 08:02:14 CDT Solomon Alamo MD [facility] CPT-53378 Level 3 Est. Patient 17:23:53 CDT Rikki GRANADOS [facility] CPT-93846 Level 3 Est. Patient 11:22:41 CDT Darryn Hearn [facility] Procedures Code Procedure Name Date Entry Date Standard Description CPT-71939 Chest 2V Frontal and Lat 10:57:00 PILE DRIVER OPERATOR HELPER CPT-92796 Venipuncture Draw Fee 10:56:59 PILE DRIVER OPERATOR HELPER CPT-03909 Venipuncture Draw Fee 09:22:28 PILE DRIVER OPERATOR HELPER CPT-66225 Chest 2V Frontal and Lat 09:22:27 PILE DRIVER OPERATOR HELPER CPT-I/D I/D Abscess 09:43:13 CDT CPT-55241 Venipuncture Draw Fee 08:16:46 PILE DRIVER OPERATOR HELPER CPT-82631 Venipuncture Draw Fee 08:18:55 PILE DRIVER OPERATOR HELPER CPT-92577 Venipuncture Draw Fee 08:31:18 PILE DRIVER OPERATOR HELPER CPT-65365 Venipuncture Draw Fee 11:42:52 PILE DRIVER OPERATOR HELPER CPT-38887 Venipuncture Draw Fee 13:26:37 PILE DRIVER OPERATOR HELPER CPT-96563 Venipuncture Draw Fee 09:23:38 PILE DRIVER OPERATOR HELPER CPT-000 Give Appropriate Tetanus Booster 10:23:50 CDT CPT-11035 Bone Density 08:28:45 CDT CPT-58199 Bone Density 11:35:15 CDT CPT-PV Prev. Care Visit 12:19:00 CDT CPT-61662 Venipuncture Draw Fee 15:02:58 CDT
--- OUTSIDE RECORDS SUMMARY | 2018-01-19 07:58 | XMS REPORT | Clinical Summary ---
Author Author Admin, QUITA Organization [facility] Address Unknown Phone Unavailable Allergies, Adverse Reactions, Alerts Allergy Name Reaction Description Start Date Severity Status Provider SULFA facial swelling Critical Active Jocelyne Naff [employer] FINANCING SPECIALIST Conditions or Problems Problem Name Problem Code Onset Date Status Entry Date Provider Comment Standard Description Annotate G E R D 530.81 Active Jocelyne Naff [employer]TERNATIVE FINANCING SPECIALIST Esophageal reflux FH COLON CANCER V16.0 Active Jocelyne Naff ALTERNATIVE FINANCING SPECIALIST Family history of malignant neoplasm of [...] (natural) Breast cancer 174.9 Resolved Marta Viramontes [employer]IST Malignant neoplasm of breast (female), unspecified Vitamin [...] Ingrown toenail, left 703.0 Resolved Marta Yokum [employer]ORING SPECIALIST Ingrowing nail cellulitis, finger, right 681.00 Resolved Marta Yokum [employer]ORING SPECIALIST Cellulitis and abscess of finger, unspecified Cough 786.2 Resolved Marta Yokum [employer] FLOORING SPECIALIST Cough Bronchitis, acute 466.0 Active Marta Yokum [employer]ORING SPECIALIST Acute bronchitis Breast microcalcification ICD-793.81 Inactive Jennifer Chun MD PhD Abnormal Mammogram ICD-793.80 Inactive Jennifer Chun MD PhD Breast cancer ICD-174.9 Inactive Marta Yokum [employer]ING SPECIALIST Soft tissue infection ICD-528.9 Inactive Rikki Harms PA Abscess, skin ICD-682.9 Inactive Rikki Harms PA Cellulitis, 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 Rikki Harms PA Rash ICD-782.1 Inactive Rikki Harms PA Upper respiratory infection, acute ICD-465.9 Inactive Rikki Harms PA Chemotherapy ICD-V58.11 Inactive Rikki Harms PA Cough, chronic ICD-786.2 Inactive Rikki Harms PA Ingrown toenail, left ICD-703.0 Inactive Marta Yokum [employer]ORING SPECIALIST cellulitis, finger, right ICD-681.00 Inactive Marta Yokum [employer]WO[employer] FLOORING SPECIALIST Cough ICD-786.2 Inactive Marta Yokum [employer]ORING SPECIALIST Medication List Medication Instructions Start Date Stop Date Generic Name NDC Status Provider Patient Instruction PROAIR HFA 108 (90 BASE) MCG/ACT INHALATION AEROSOL SOLUTION 2 puffs four times a day as needed ALBUTEROL SULFATE 69141495387 No Longer Active Marta Yokum [employer] F[employer]ORING SPECIALIST Active DOXYCYCLINE HYCLATE 100 MG ORAL CAPSULE 1 cap by mouth twice daily DOXYCYCLINE HYCLATE 31239043964 No Longer Active Marta Yokum [employer] F[employer]ORING SPECIALIST Active PROAIR HFA 108 (90 BASE) MCG/ACT INHALATION AEROSOL SOLUTION 2 puffs four times a day as needed ALBUTEROL SULFATE 52624843012 Active Marta Yokum [employer]ORING SPECIALIST Active AUGMENTIN 875-125 MG ORAL TABLET Take one tablet twice a day with food 04/25 AMOXICILLIN-POT CLAVULANATE 39626412704 No Longer Active Marta Yokum [employer]ORING SPECIALIST Active TESSALON PERLES 100 MG ORAL CAPSULE 1 to 2 tablets by mouth 3 times daily as needed for cough BENZONATATE 94125062597 No Longer Active Marta Yokum [employer]WO[employer] FLOORING SPECIALIST Active AUGMENTIN 875-125 MG ORAL TABLET 1 po BID x 10 days AMOXICILLIN-POT CLAVULANATE 61311423782 No Longer Active Marta Yokum [employer]LOORING SPECIALIST Active MEDROL 4 MG ORAL TABLET THERAPY PACK 6 tabs on day 1, 5 tabs on day 2, 4 tabs on day 3, 3 tabs on day 4, 2 tabs on day 5, 1 tab on day 6 METHYLPREDNISOLONE 97217108643 No Longer Active Marta Yokum [employer]ING SPECIALIST Active TUSSIONEX PENNKINETIC ER 10-8 MG/5ML ORAL SUSPENSION EXTENDED RELEASE 5ml po q12hr PRN Cough HYDROCOD POLST-CHLORPHEN POLST 94636181707 Active Marta Yokum [employer]ORING SPECIALIST Active KEFLEX 500 MG ORAL CAPSULE 1 po qid CEPHALEXIN 35778402163 No Longer Active Marta Yokum [employer]WO[employer] FLOORING SPECIALIST Active B COMPLEX 50 ORAL TABLET EXTENDED RELEASE B COMPLEX VITAMINS 39820150956 Active Marta Yokum [employer] F[employer]ORING SPECIALIST Active TUSSIONEX PENNKINETIC ER 10-8 MG/5ML ORAL SUSPENSION EXTENDED RELEASE 5ml po q12hr PRN Cough HYDROCOD POLST-CHLORPHEN POLST 81215586986 No Longer Active Marta Yokum [employer]WO[employer] FLOORING SPECIALIST Active VITAMIN D3 71784 UNIT ORAL CAPSULE 1 qWeek x 4 months for vitamin D deficiency CHOLECALCIFEROL 17489091771 Active Marta Yokum [employer]WO[employer] FLOORING SPECIALIST Active CEPHALEXIN 500 MG ORAL CAPSULE Take one four times a day CEPHALEXIN 44507072793 No Longer Active Marta Yokum [employer] F[employer]ORING SPECIALIST Active BIOTIN 1000 MCG ORAL TABLET Take one daily BIOTIN 77712288328 Active Rikki Harms PA Active VITAMIN C 500 MG ORAL CAPSULE Take one daily ASCORBIC ACID 85077572898 Active Rikki Harms PA Active BENZONATATE 200 MG ORAL CAPSULE One capsule tid. BENZONATATE 93331093127 No Longer Active Rikki Harms PA Active FLONASE ALLERGY RELIEF 50 MCG/ACT NASAL SUSPENSION spray twice in each nostril one time daily FLUTICASONE PROPIONATE 63658428474 No Longer Active Rikki Harms PA Active TUSSIONEX PENNKINETIC ER 10-8 MG/5ML ORAL SUSPENSION EXTENDED RELEASE 5ml po q12hr PRN Cough HYDROCOD POLST-CHLORPHEN POLST 84283460960 No Longer Active Rikki Harms PA Active NIACIN ER 500 MG ORAL TABLET EXTENDED RELEASE Take one twice daily NIACIN 22413058977 Active Rikki Harms PA Active ALBUTEROL SULFATE (2.5 MG/3ML) 0.083% INHALATION NEBULIZATION SOLUTION one vial per nebulizer every 4-6 hours as needed ALBUTEROL SULFATE 32718976018 No Longer Active Rikki Harms PA Active MEDROL 4 MG ORAL TABLET THERAPY PACK 6 tabs on day 1, 5 tabs on day 2, 4 tabs on day 3, 3 tabs on day 4, 2 tabs on day 5, 1 tab on day 6 METHYLPREDNISOLONE 05430087742 No Longer Active Rikki Harms PA Active LEVAQUIN 750 MG ORAL TABLET 1 po qd x 7 days LEVOFLOXACIN 58022327969 No Longer Active Rikki Harms PA Active LEVAQUIN 500 MG ORAL TABLET Take one tablet daily LEVOFLOXACIN 87041178587 No Longer Active Rikki Harms PA Active LEVAQUIN 500 MG ORAL TABLET 1 tablet by mouth daily LEVOFLOXACIN 74192852956 No Longer Active Marta Viramontes APRN Active CHERATUSSIN AC 100-10 MG/5ML ORAL SYRUP 1 tsp by mouth every 4 hours as needed for cough GUAIFENESIN-CODEINE 85152899804 No Longer Active Rikki Harms PA Active MUPIROCIN 2 % EXTERNAL OINTMENT Use in each nostril in am and pm MUPIROCIN 84584563756 No Longer Active Rikki Harms PA Active DOXYCYCLINE HYCLATE 100 MG ORAL CAPSULE Take one bid DOXYCYCLINE HYCLATE 43640175637 No Longer Active Rikki Harms PA Active CLARITIN 10 MG ORAL TABLET 1prn LORATADINE 61932521415 No Longer Active Jocelyne Naff ALTERNATIVE FINANCING SPECIALIST Active ASPIRIN 81 MG ORAL TABLET 1qd ASPIRIN 86446676146 No Longer Active Jocelyne Naff ALTERNATIVE FINANCING SPECIALIST Active DOXYCYCLINE HYCLATE 100 MG ORAL CAPSULE 1 cap by mouth twice daily DOXYCYCLINE HYCLATE 65172835926 No Longer Active Rikki Harms PA Active VITAMIN D3 92478 UNIT ORAL CAPSULE 1 pill by mouth weekly, for vitamin D deficiency CHOLECALCIFEROL 09901076704 No Longer Active Jennifer Chun MD PhD Active ANASTROZOLE 1 MG ORAL TABLET Take one by mouth daily ANASTROZOLE 48234831469 Active Jennifer Chun MD PhD Active ZITHROMAX 250 MG ORAL TABLET 2 po today, then 1 po q days 2-5 AZITHROMYCIN 55236499449 No Longer Active Rikki Harms PA Active MECLIZINE HCL 25 MG ORAL TABLET 1 prn MECLIZINE HCL 05202879958 No Longer Active Solomon Alamo MD Active CHERATUSSIN AC SYRUP prn as directed GUAIFENESIN- CODEINE SYRP 80249652857 No Longer Active Rikki Harms PA Active MULTIVITAMINS TABS 1qd MULTIPLE VITAMIN 36073017162 No Longer Active Rikki Harms PA Active OMEPRAZOLE 20 MG ORAL CAPSULE DELAYED RELEASE 1 PO Q D OMEPRAZOLE 17322041246 Active AMY Snow Active ZITHROMAX Z-CAROLYN 250 MG ORAL TABLET 2x1day,0g2hrhs AZITHROMYCIN 78713944737 No Longer Active Jocelyne Naff ALTERNATIVE FINANCING SPECIALIST Active MULTIVITAMINS TABS 1qd MULTIVITAMINS TABS MULTIPLE VITAMIN Inactive CHERATUSSIN AC SYRUP prn as directed CHERATUSSIN AC SYRUP GUAIFENESIN-CODEINE SYRP Inactive MECLIZINE HCL 25 MG ORAL TABLET 1 prn MECLIZINE HCL 25 MG ORAL TABLET 395640 MECLIZINE HCL Inactive ASPIRIN 81 MG ORAL TABLET 1qd ASPIRIN 81 MG ORAL TABLET 352863 ASPIRIN Inactive CLARITIN 10 MG ORAL TABLET 1prn CLARITIN 10 MG ORAL TABLET 481832 LORATADINE Inactive DOXYCYCLINE HYCLATE 100 MG ORAL CAPSULE Take one bid DOXYCYCLINE HYCLATE 100 MG ORAL CAPSULE 2430050 DOXYCYCLINE HYCLATE Inactive MUPIROCIN 2 % EXTERNAL OINTMENT Use in each nostril in am and pm MUPIROCIN 2 % EXTERNAL OINTMENT 711648 MUPIROCIN Inactive CHERATUSSIN AC 100-10 MG/5ML ORAL SYRUP 1 tsp by mouth every 4 hours as needed for cough CHERATUSSIN AC 100-10 MG/5ML ORAL SYRUP 951267 GUAIFENESIN-CODEINE Inactive LEVAQUIN 500 MG ORAL TABLET 1 tablet by mouth daily LEVAQUIN 500 MG ORAL TABLET 829757 LEVOFLOXACIN Inactive LEVAQUIN 500 MG ORAL TABLET Take one tablet daily LEVAQUIN 500 MG ORAL TABLET 081528 LEVOFLOXACIN Inactive LEVAQUIN 750 MG ORAL TABLET 1 po qd x 7 days LEVAQUIN 750 MG ORAL TABLET 811128 LEVOFLOXACIN Inactive ALBUTEROL SULFATE (2.5 MG/3ML) 0.083% INHALATION NEBULIZATION SOLUTION one vial per nebulizer every 4-6 hours as needed ALBUTEROL SULFATE (2.5 MG/3ML) 0.083% INHALATION NEBULIZATION SOLUTION 653233 ALBUTEROL SULFATE Inactive TUSSIONEX PENNKINETIC ER 10-8 MG/5ML ORAL SUSPENSION EXTENDED RELEASE 5ml po q12hr PRN Cough TUSSIONEX PENNKINETIC ER 10-8 MG/5ML ORAL SUSPENSION EXTENDED RELEASE HYDROCOD POLST-CHLORPHEN POLST Inactive FLONASE ALLERGY RELIEF 50 MCG/ACT NASAL SUSPENSION spray twice in each nostril one time daily FLONASE ALLERGY RELIEF 50 MCG/ ACT NASAL SUSPENSION 2502527 FLUTICASONE PROPIONATE Inactive BENZONATATE 200 MG ORAL CAPSULE One capsule tid. BENZONATATE 200 MG ORAL CAPSULE 449816 BENZONATATE Inactive CEPHALEXIN 500 MG ORAL CAPSULE Take one four times a day CEPHALEXIN 500 MG ORAL CAPSULE 392490 CEPHALEXIN Inactive TUSSIONEX PENNKINETIC ER 10-8 MG/5ML ORAL SUSPENSION EXTENDED RELEASE 5ml po q12hr PRN Cough TUSSIONEX PENNKINETIC ER 10-8 MG/5ML ORAL SUSPENSION EXTENDED RELEASE HYDROCOD POLST-CHLORPHEN POLST Inactive TESSALON PERLES 100 MG ORAL CAPSULE 1 to 2 tablets by mouth 3 times daily as needed for cough TESSALON PERLES 100 MG ORAL CAPSULE 929117 BENZONATATE Inactive PROAIR HFA 108 (90 BASE) MCG/ACT INHALATION AEROSOL SOLUTION 2 puffs four times a day as needed PROAIR HFA 108 (90 BASE) MCG/ACT INHALATION AEROSOL SOLUTION ALBUTEROL SULFATE Inactive ZITHROMAX Z-CAROLYN 250 MG ORAL TABLET 2x1day,[id number] ZITHROMAX Z-CAROLYN 250 MG ORAL TABLET 742974 AZITHROMYCIN Inactive ZITHROMAX 250 MG ORAL TABLET 2 po today, then 1 po q days 2-5 ZITHROMAX 250 MG ORAL TABLET 182992 AZITHROMYCIN Inactive VITAMIN D3 61646 UNIT ORAL CAPSULE 1 pill by mouth weekly, for vitamin D deficiency VITAMIN D3 88555 UNIT ORAL CAPSULE CHOLECALCIFEROL Inactive DOXYCYCLINE HYCLATE 100 MG ORAL CAPSULE 1 cap by mouth twice daily DOXYCYCLINE HYCLATE 100 MG ORAL CAPSULE 3061905 DOXYCYCLINE HYCLATE Inactive MEDROL 4 MG ORAL TABLET THERAPY PACK 6 tabs on day 1, 5 tabs on day 2, 4 tabs on day 3, 3 tabs on day 4, 2 tabs on day 5, 1 tab on day 6 MEDROL 4 MG ORAL TABLET THERAPY PACK 557521 METHYLPREDNISOLONE Inactive KEFLEX 500 MG ORAL CAPSULE 1 po qid KEFLEX 500 MG ORAL CAPSULE 917658 CEPHALEXIN Inactive MEDROL 4 MG ORAL TABLET THERAPY PACK 6 tabs on day 1, 5 tabs on day 2, 4 tabs on day 3, 3 tabs on day 4, 2 tabs on day 5, 1 tab on day 6 MEDROL 4 MG ORAL TABLET THERAPY PACK 861661 METHYLPREDNISOLONE Inactive AUGMENTIN 875-125 MG ORAL TABLET 1 po BID x 10 days AUGMENTIN 875-125 MG ORAL TABLET 779523 AMOXICILLIN-POT CLAVULANATE Inactive AUGMENTIN 875-125 MG ORAL TABLET Take one tablet twice a day with food 04/25 AUGMENTIN 875-125 MG ORAL TABLET 915227 AMOXICILLIN-POT CLAVULANATE Inactive DOXYCYCLINE HYCLATE 100 MG ORAL CAPSULE 1 cap by mouth twice daily DOXYCYCLINE HYCLATE 100 MG ORAL CAPSULE 7178617 DOXYCYCLINE HYCLATE Inactive Vital Signs Date Name [...] Measured Encounters Code Encounter Date Provider Facility CPT-60126 Level 3 Est. 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 Patient 16:07:34 CDT Marta Ana M [facility] CPT-01567 Level 3 Est. Patient 15:39:01 [facility] Patient 17:31:07 CD[facility] Est[facility] Patient 05:11:40 CDT Rikki GRANADOS [facility]-97932 Level 2 Est. 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 CPT-71162 Level 4 Est. Patient 09:14:36 VICE PRESIDENT SALES AND MARKETING Rikki GRANADOS [facility] CPT-20556 Level 2 Est. Patient 09:07:32 CDT Marta Caalluisblas [facility] CPT-33214 Level 4 Est. Patient 11:55:00 CDT Rikki GRANADOS [facility] CPT-71381 Level 3 Est. Patient 13:25:16 CDT Jennifer Chun MD PhD [facility] CPT-90937 Level 3 Est. Patient 17:31:22 CDT Solomon Alamo MD [facility] CPT-23826 Level 3 Est. Patient 08:02:14 CDT Solomon Alamo MD [facility]-07239 Level 3 Est. Patient 17:23:53 CDT Rikki Stearns [facility] CPT-79787 Level 3 Est. Patient 11:22:41 CDT Darryn Hearn [facility] Procedures Code Procedure Name Date Entry Date Standard Description CPT-71897 Venipuncture Draw Fee 16:09:39 CDT CPT-30528 Venipuncture Draw Fee 12:43:48 VICE PRESIDENT [employer]ETING CPT-51351 BMP - LAB USE ONLY 10:32:33 VICE PRESIDENT [employer] MARKETING CPT-95983 Venipuncture Draw Fee 10:32:33 VICE PRESIDENT [employer]ETING CPT-03234 Magnesium - LAB USE ONLY 09:54:30 CDT CPT-12157 TSH - LAB USE ONLY 09:54:30 CDT CPT-44166 Lipid - LAB USE ONLY 09:54:30 CDT CPT-60020 Venipuncture Draw Fee 09:54:29 CDT CPT-52586 Venipuncture Draw Fee 18:27:04 CDT CPT-05819 Chest 2V Frontal and Lat 10:57:00 VICE PRESIDENT [employer] MARKETING CPT-65558 Venipuncture Draw Fee 10:56:59 VICE PRESIDENT [employer] MARKETING CPT-41721 Venipuncture Draw Fee 09:22:28 VICE PRESIDENT [employer] MARKETING CPT-78755 Chest 2V Frontal and Lat 09:22:27 VICE PRESIDENT [employer] MARKETING CPT-I/D I/D Abscess 09:43:13 CDT CPT-52604 Venipuncture Draw Fee 08:16:46 VICE PRESIDENT [employer] MARKETING CPT-63923 Venipuncture Draw Fee 08:18:55 VICE PRESIDENT [employer] MARKETING CPT-72315 Venipuncture Draw Fee 08:31:18 VICE PRESIDENT [employer] MARKETING CPT-27710 Venipuncture Draw Fee 11:42:52 VICE PRESIDENT [employer] MARKETING CPT-56565 Venipuncture Draw Fee 13:26:37 VICE PRESIDENT [employer] MARKETING CPT-58258 Venipuncture Draw Fee 09:23:38 VICE PRESIDENT [employer] MARKETING CPT-000 Give Appropriate Tetanus Booster 10:23:50 CDT CPT-15784 Bone Density 08:28:45 CDT CPT-83254 Bone Density 11:35:15 CDT CPT-PV Prev. Care Visit 12:19:00 CDT CPT-73094 Venipuncture Draw Fee 15:02:58 CDT
--- OUTSIDE RECORDS SUMMARY | 2018-01-19 08:01 | XMS REPORT | Clinical Summary ---
Author Author Admin, E Organization [facility] [place] Address Unknown Phone Unavailable Allergies, Adverse Reactions, Alerts Allergy Name Reaction Description Start Date Severity Status Provider SULFA facial swelling Critical Active Jocelyne Naff [employer]IN[employer] Conditions or Problems Problem Name Problem Code Onset Date Status Entry Date Provider Comment Standard Description Annotate G E R D 530.81 Active Jocelyne Naff [employer]UDY ABROAD COORDINATOR Esophageal reflux FH COLON CANCER V16.0 Active Jocelyne Naff STUDY ABROAD COORDINATOR Family history of malignant neoplasm of [...] unspecified sites Rash 782.1 Active Marta Viramontes [employer] Rash and other nonspecific skin eruption Adenocarcinoma, fallopian tube, 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 Kailee Rachel RMA Malignant neoplasm of fallopian tube Adenocarcinoma, right breast 174.9 Active Alfreda Anthony RMA Malignant neoplasm of breast (female), unspecified Female breast cancer, right upper-outer quadrant 174.4 Active Kailee Rachel RMA Malignant neoplasm of upper-outer quadrant of female breast Upper respiratory infection, acute 465.9 Active Rikki GRANDAOS Acute upper respiratory infections of unspecified site [...] 5, 1 tab on day 6 METHYLPREDNISOLONE 86991966010 No Longer Active Rikki GRANADOS Active ALBUTEROL SULFATE 0.083 % NEBU SOLN one vial per nebulizer every 4-6 hours as needed ALBUTEROL SULFATE 21042359205 Active Rikki Harms PA Active LEVAQUIN 750 MG TABS 1 po qd x 7 days LEVOFLOXACIN 21183013294 No Longer Active Rikki Harms PA Active LEVAQUIN 500 MG ORAL TABS Take one tablet daily LEVOFLOXACIN 29760707118 No Longer Active Rikki Harms PA Active PROAIR HFA 108 (90 BASE) MCG/ACT AERS 2 puffs four times a day as needed 2014 ALBUTEROL SULFATE 41789721064 Active Marta Yokum SEASONER HAND Active TUSSIONEX PENNKINETIC ER 10-8 MG/5ML LQCR 5ml po q12hr PRN Cough HYDROCOD POLST-CHLORPHEN POLST 25162764762 Active Rikki Harms PA Active FLONASE ALLERGY RELIEF 50 MCG/ACT NASAL SUSP spray twice in each nostril one time daily FLUTICASONE PROPIONATE 41781980667 Active Marta Yokum [employer] Active LEVAQUIN 500 MG TAB 1 tablet by mouth daily LEVOFLOXACIN 64860005830 No Longer Active Marta Yokum [employer] Active BENZONATATE 200 MG ORAL CAPS One capsule tid. BENZONATATE 59391088498 Active Marta Yokum [employer] Active CHERATUSSIN AC 100-10 MG/5ML SYRP 1 tsp by mouth every 4 hours as needed for cough GUAIFENESIN-CODEINE 60223246407 No Longer Active Rikki Harms PA Active MUPIROCIN 2 % EXT OINT Use in each nostril in am and pm MUPIROCIN 59120259112 No Longer Active Rikki Harms PA Active DOXYCYCLINE HYCLATE 100 MG ORAL CAPS Take one bid DOXYCYCLINE HYCLATE 66035082701 No Longer Active Rikki Harms PA Active CLARITIN 10 MG TABS 1prn LORATADINE 00904536369 No Longer Active Jocelyne Naff STUDY ABROAD COORDINATOR Active ASPIRIN 81 MG TABS 1qd ASPIRIN 77197032086 No Longer Active Jocelyne Naff STUDY ABROAD COORDINATOR Active DOXYCYCLINE HYCLATE 100 MG CAP 1 cap by mouth twice daily DOXYCYCLINE HYCLATE 47005165406 No Longer Active Rikki Harms PA Active VITAMIN D3 78819 UNIT CAPS 1 pill by mouth weekly, for vitamin D deficiency CHOLECALCIFEROL 83341465279 No Longer Active Jennifer Chun MD PhD Active ANASTROZOLE 1 MG ORAL TABS Take one by mouth daily ANASTROZOLE 93477322640 Active Jennifer Chun MD PhD Active ZITHROMAX 250 MG TAB 2 po today, then 1 po q days 2-5 AZITHROMYCIN 35519714220 No Longer Active Rikki Harms PA Active MECLIZINE HCL 25 MG TABS 1 prn MECLIZINE HCL 26577038996 No Longer Active Solomon Alamo MD Active CHERATUSSIN AC SYRP prn as directed GUAIFENESIN- CODEINE SYRP 74220681863 No Longer Active Rikki Harms PA Active MULTIVITAMINS TABS 1qd MULTIPLE VITAMIN 51412091074 No Longer Active Rikki Harms PA Active OMEPRAZOLE 20 MG CPDR 1 PO Q D OMEPRAZOLE 73978785740 Active Rikki Harms PA Active ZITHROMAX Z-CAROLYN 250 MG TABS 2x1day,5n8krsd AZITHROMYCIN 17910349526 No Longer Active Jocelyne Naff STUDY ABROAD COORDINATOR Active MULTIVITAMINS TABS 1qd MULTIVITAMINS TABS MULTIPLE VITAMIN Inactive CHERATUSSIN AC SYRP prn as directed CHERATUSSIN AC SYRP GUAIFENESIN-CODEINE SYRP Inactive MECLIZINE HCL 25 MG TABS 1 prn MECLIZINE HCL 25 MG TABS 836002 MECLIZINE HCL Inactive ASPIRIN 81 MG TABS 1qd ASPIRIN 81 MG TABS 152820 ASPIRIN Inactive CLARITIN 10 MG TABS 1prn CLARITIN 10 MG TABS 044497 LORATADINE Inactive DOXYCYCLINE HYCLATE 100 MG ORAL CAPS Take one bid DOXYCYCLINE HYCLATE 100 MG ORAL CAPS 8184793 DOXYCYCLINE HYCLATE Inactive MUPIROCIN 2 % EXT OINT Use in each nostril in am and pm MUPIROCIN 2 % EXT OINT 901630 MUPIROCIN Inactive CHERATUSSIN AC 100-10 MG/5ML SYRP 1 tsp by mouth every 4 hours as needed for cough CHERATUSSIN AC 100-10 MG/5ML SYRP 075461 GUAIFENESIN-CODEINE Inactive LEVAQUIN 500 MG TAB 1 tablet by mouth daily LEVAQUIN 500 MG TAB 281341 LEVOFLOXACIN Inactive LEVAQUIN 500 MG ORAL TABS Take one tablet daily LEVAQUIN 500 MG ORAL TABS 302896 LEVOFLOXACIN Inactive LEVAQUIN 750 MG TABS 1 po qd x 7 days LEVAQUIN 750 MG TABS 343002 LEVOFLOXACIN Inactive ZITHROMAX Z-CAROLYN 250 MG TABS 2x1day,2c6xvkl ZITHROMAX Z-CAROLYN 250 MG TABS 3013143 AZITHROMYCIN Inactive ZITHROMAX 250 MG TAB 2 po today, then 1 po q days 2-5 ZITHROMAX 250 MG TAB 0869679 AZITHROMYCIN Inactive VITAMIN D3 92354 UNIT CAPS 1 pill by mouth weekly, for vitamin D deficiency VITAMIN D3 71020 UNIT CAPS CHOLECALCIFEROL Inactive DOXYCYCLINE HYCLATE 100 MG CAP 1 cap by mouth twice daily DOXYCYCLINE HYCLATE 100 MG CAP 7683537 DOXYCYCLINE HYCLATE Inactive MEDROL (CAROLYN) 4 MG [...] % 11.6-14.8 platelet count 143 10^3/MM^3 10*3/mm3 573-374 6620/11/25 leukocyte count, blood 2.1 10^3/MM^3 10*3/mm3 4.6-10.2 [...] % 11.6-14.8 platelet count 139 10^3/MM^3 10*3/mm3 592-056 4968/12/02 leukocyte count, blood 6.7 10^3/MM^3 10*3/mm3 [...] % 11.6-14.8 platelet count 258 10^3/MM^3 10*3/mm3 996-910 5783/12/09 leukocyte count, blood 5.3 10^3/MM^3 10*3/mm3 4.6-10.2 [...] % 11.6-14.8 platelet count 240 10^3/MM^3 10*3/mm3 841-044 8287/12/16 leukocyte count, blood 3.2 10^3/MM^3 10*3/mm3 4.6-10.2 [...] % 11.6-14.8 platelet count 158 10^3/MM^3 10*3/mm3 583-564 8009/12/18 leukocyte count, blood 8.8 10^3/MM^3 10*3/mm3 4.6-10.2 [...] % 11.6-14.8 platelet count 207 10^3/MM^3 10*3/mm3 297-065 9655/12/23 leukocyte count, blood 6.2 10^3/MM^3 10*3/mm3 4.6-10.2 [...] % 11.6-14.8 platelet count 183 10^3/MM^3 10*3/mm3 174-239 2329/11/11 leukocyte count, blood 2.0 10^3/MM^3 10*3/mm3 4.6-10.2 [...] % 11.6-14.8 platelet count 203 10^3/MM^3 10*3/mm3 744-906 2943/12/30 leukocyte count, blood 5.2 10^3/MM^3 10*3/mm3 4.6-10.2 [...] % 11.6-14.8 platelet count 200 10^3/MM^3 10*3/mm3 226-322 2913/03/02 leukocyte count, blood 5.1 10^3/MM^3 10*3/mm3 4.6-10.2 [...] Panel - Chemistry sodium, serum 142 mmol/L 213-049 0609/02/04 carbon dioxide, venous blood 24.9 mmol/L 21.0-32.0 potassium, serum 4.1 mmol/L 3.5-5.2 chloride, serum 106 mmol/L 98-107 blood glucose 103 mg/dL 65-110 urea nitrogen, blood 25 mg/dL 7-18 creatinine, serum 0.83 mg/dL 0.55-1.30 alanine aminotransferase (SGPT), serum 38 U/L 12-78 aspartate aminotransferase (SGOT), serum 26 U/L 15-37 calcium, serum 8.7 mg/dL 8.5-10.1 bilirubin, serum, total 0.30 mg/dL 0.00-1.00 sodium, serum 140 mmol/L 847-237 4312/01/13 carbon dioxide, venous blood 26.4 mmol/L 21.0-32.0 potassium, serum 4.2 mmol/L 3.5-5.2 chloride, serum 104 mmol/L 98-107 blood glucose 101 mg/dL 65-110 urea nitrogen, blood 18 mg/dL 7-18 creatinine, serum 0.80 mg/dL 0.55-1.30 alanine aminotransferase (SGPT), serum 28 U/L aspartate aminotransferase (SGOT), serum 24 U/L 15-37 calcium, serum 8.7 mg/dL 8.5-10.1 bilirubin, serum, total 0.50 mg/dL 0.00-1.00 sodium, serum 138 mmol/L 446-151 0472/11/04 carbon dioxide, venous blood 27.7 mmol/L 21.0-32.0 potassium, serum 4.9 mmol/L 3.5-5.2 chloride, serum 104 mmol/L 98-107 blood glucose 92 mg/dL 65-110 urea nitrogen, blood 24 mg/dL 7-18 creatinine, serum 0.95 mg/dL 0.55-1.30 alanine aminotransferase (SGPT), serum 34 U/L aspartate aminotransferase (SGOT), serum 23 U/L - calcium, serum 8.9 mg/dL 8.5-10.1 bilirubin, serum, total 0.70 mg/dL 0.00-1.00 sodium, serum 140 mmol/L 756-675 3710/01/06 carbon dioxide, venous blood 27.2 mmol/L 21.0-32.0 [...] % 11.6-14.8 platelet count 289 10^3/MM^3 10*3/mm3 871-876 0951/01/06 leukocyte count, blood 4.1 10^3/MM^3 10*3/mm3 4.6-10.2 [...] % 11.6-14.8 platelet count 297 10^3/MM^3 10*3/mm3 571-991 3011/02/04 leukocyte count, blood 4.2 10^3/MM^3 10*3/mm3 4.6-10.2 [...] % 11.6-14.8 platelet count 271 10^3/MM^3 10*3/mm3 237-241 8036/11/04 leukocyte count, blood 3.8 10^3/MM^3 10*3/mm3 4.6-10.2 [...] Panel - Chemistry sodium, serum 140 mmol/L 337-519 2106/07/13 potassium, serum 4.5 mmol/L 3.5-5.2 chloride, serum 106 mmol/L 98-107 carbon dioxide, venous blood 27.7 mmol/L 21.0-32.0 blood glucose 105 mg/dL 65-110 urea nitrogen, blood 14 mg/dL 7-18 creatinine, serum 0.90 mg/dL 0.60-1.30 alanine aminotransferase (SGPT), serum 29 U/L 12-78 aspartate aminotransferase (SGOT), serum 22 U/L 15-37 calcium, serum 9.4 mg/dL 8.5-10.1 bilirubin, serum, total 0.70 mg/dL 0.00-1.00 cholesterol, serum 160 mg/dL 465-234 9567/07/13 triglyceride, serum, fasting 63 mg/dL 30-200 HDL [...] Panel - Chemistry sodium, serum 141 mmol/L 893-939 0531/11/18 carbon dioxide, venous blood 26.2 mmol/L 21.0-32.0 potassium, serum 4.4 mmol/L 3.5-5.2 chloride, serum 106 mmol/L 98-107 blood glucose 102 mg/dL 65-110 urea nitrogen, blood 24 mg/dL 7-18 creatinine, serum 0.77 mg/dL 0.55-1.30 alanine aminotransferase (SGPT), serum 30 U/L 12-78 aspartate aminotransferase (SGOT), serum 15 U/L 15-37 calcium, serum 8.3 mg/dL 8.5-10.1 bilirubin, serum, total 0.30 mg/dL 0.00-1.00 sodium, serum 139 mmol/L 327-828 8422/11/25 carbon dioxide, venous blood 27.9 mmol/L 21.0-32.0 potassium, serum 4.7 mmol/L 3.5-5.2 chloride, serum 105 mmol/L 98-107 blood glucose 94 mg/dL 65-110 urea nitrogen, blood 21 mg/dL 7-18 creatinine, serum 0.79 mg/dL 0.55-1.30 alanine aminotransferase (SGPT), serum 40 U/L aspartate aminotransferase (SGOT), serum 22 U/L 15-37 calcium, serum 8.5 mg/dL 8.5-10.1 bilirubin, serum, total 0.80 mg/dL 0.00-1.00 sodium, serum 142 mmol/L 113-080 1579/12/09 carbon dioxide, venous blood 28.5 mmol/L 21.0-32.0 potassium, serum 5.0 mmol/L 3.5-5.2 chloride, serum 109 mmol/L 98-107 blood glucose 91 mg/dL 65-110 urea nitrogen, blood 27 mg/dL - creatinine, serum 0.88 mg/dL 0.55-1.30 alanine aminotransferase (SGPT), serum 31 U/L aspartate aminotransferase (SGOT), serum 18 U/L 15-37 calcium, serum 8.9 mg/dL 8.5-10.1 bilirubin, serum, total 0.40 mg/dL 0.00-1.00 sodium, serum 140 mmol/L 688-783 9084/12/16 carbon dioxide, venous blood 25.4 mmol/L 21.0-32.0 potassium, serum 4.1 mmol/L 3.5-5.2 chloride, serum 104 mmol/L 98-107 blood glucose 110 mg/dL 65-110 urea nitrogen, blood 24 mg/dL 7- creatinine, serum 0.87 mg/dL 0.55-1.30 alanine aminotransferase (SGPT), serum 35 U/L aspartate aminotransferase (SGOT), serum 21 U/L 15-37 calcium, serum 8.4 mg/dL 8.5-10.1 bilirubin, serum, total 0.50 mg/dL 0.00-1.00 sodium, serum 141 mmol/L 854-901 6581/12/02 carbon dioxide, venous blood 25.9 mmol/L 21.0-32.0 potassium, serum 4.7 mmol/L 3.5-5.2 chloride, serum 106 mmol/L 98-107 blood glucose 78 mg/dL 65-110 urea nitrogen, blood 24 mg/dL 7-18 creatinine, serum 0.75 mg/dL 0.55-1.30 alanine aminotransferase (SGPT), serum 31 U/L aspartate aminotransferase (SGOT), serum 20 U/L -37 calcium, serum 8.7 mg/dL 8.5-10.1 bilirubin, serum, total 0.30 mg/dL 0.00-1.00 sodium, serum 139 mmol/L 517-736 3083/12/30 carbon dioxide, venous blood 28.2 mmol/L 21.0-32.0 potassium, serum 3.9 mmol/L 3.5-5.2 chloride, serum 105 mmol/L 98-107 blood glucose 91 mg/dL 65-110 urea nitrogen, blood 17 mg/dL 7-18 creatinine, serum 0.81 mg/dL 0.55-1.30 alanine aminotransferase (SGPT), serum 29 U/L aspartate aminotransferase (SGOT), serum 22 U/L 15-37 calcium, serum 8.8 mg/dL 8.5-10.1 bilirubin, serum, total 0.50 mg/dL 0.00-1.00 sodium, serum 141 mmol/L 299-081 0375/11/11 carbon dioxide, venous blood 26.8 mmol/L 21.0-32.0 potassium, serum 4.2 mmol/L 3.5-5.2 chloride, serum 106 mmol/L 98-107 blood glucose 95 mg/dL 65-110 urea nitrogen, blood 18 mg/dL 7-18 creatinine, serum 0.70 mg/dL 0.55-1.30 alanine aminotransferase (SGPT), serum 33 U/L 12-78 aspartate aminotransferase (SGOT), serum 22 U/L 15-37 calcium, serum 8.5 mg/dL 8.5-10.1 bilirubin, serum, total 0.30 mg/dL 0.00-1.00 sodium, serum 143 mmol/L 789-792 8634/12/23 carbon dioxide, venous blood 24.6 mmol/L 21.0-32.0 potassium, serum 4.1 mmol/L 3.5-5.2 chloride, serum 107 mmol/L 98-107 blood glucose 98 mg/dL 65-110 urea nitrogen, blood 22 mg/dL 7-18 creatinine, serum 0.77 mg/dL 0.55-1.30 alanine aminotransferase (SGPT), serum 28 U/L -78 aspartate aminotransferase (SGOT), serum 20 U/L 15-37 calcium, serum 8.6 mg/dL 8.5-10.1 bilirubin, serum, total 0.30 mg/dL 0.00-1.00 Lab Report: VITAMIN D, 25-HYDROXY/12016 - Chemistry vitamin D 25-hydroxy, serum 24 ng/mL 30-100 Encounters Code Encounter Date Provider Facility CPT-90903 Level 2 Est. Patient 14:30:43 [employer] Marta Viramontes [facility] [place][note 2] CPT-01119 Level 4 Est. Patient 09:14:36 [employer] Rikki GRANADOS [facility] [place] CPT-01540 Level 2 Est. Patient 09:07:32 CDT Marta Viramontes SE[employer] [facility] [place] CPT-58926 Level 4 Est. Patient 11:55:00 CDT Rikki GRANADOS [facility] [place] CPT-20593 Level 3 Est. Patient 13:25:16 CDT Jennifer Chun MD PhD [facility] CPT-86492 Level 3 Est. Patient 17:31:22 CDT Solomon Alamo MD [facility] CPT-87483 Level 3 Est. Patient 08:02:14 CDT Solomon Alamo MD [facility] CPT-25477 Level 3 Est. Patient 17:23:53 CDT Rikki GRANADOS [facility] [place] CPT-85548 Level 3 Est. Patient 11:22:41 CDT Darryn Hearn [facility] [place] Procedures Code Procedure Name Date Entry Date Standard Description CPT-79659 Chest 2V Frontal and Lat 10:57:00 [employer] CPT-64771 Venipuncture Draw Fee 10:56:59 [employer] CPT-17406 Venipuncture Draw Fee 09:22:28 [employer] CPT-65160 Chest 2V Frontal and Lat 09:22:27 [employer] CPT-I/D I/D Abscess 09:43:13 CDT CPT-24073 Venipuncture Draw Fee 08:16:46 [employer] CPT-58043 Venipuncture Draw Fee 08:18:55 [employer] CPT-80928 Venipuncture Draw Fee 08:31:18 [employer] CPT-82436 Venipuncture Draw Fee 11:42:52 [employer] CPT-95866 Venipuncture Draw Fee 13:26:37 [employer] CPT-30925 Venipuncture Draw Fee 09:23:38 [employer] CPT-000 Give Appropriate Tetanus Booster 10:23:50 CDT CPT-44833 Bone Density 08:28:45 CDT CPT-80065 Bone Density 11:35:15 CDT CPT-PV Prev. Care Visit 12:19:00 CDT CPT-17211 Venipuncture Draw Fee 15:02:58 CDT
--- OUTSIDE RECORDS SUMMARY | 2018-01-19 08:03 | XMS REPORT | Clinical Summary ---
Author Author Admin, E Organization [facility] [place] Address Unknown Phone Unavailable Allergies, Adverse Reactions, Alerts Allergy Name Reaction Description Start Date Severity Status Provider SULFA facial swelling Critical Active Jocelyne Naff PURCHASING MANAGER Conditions or Problems Problem Name Problem Code Onset Date Status Entry Date Provider Comment Standard Description Annotate G E R D 530.81 Active Jocelyne Naff PURCHASING MANAGER Esophageal reflux FH COLON CANCER V16.0 Active Jocelyne Naff PURCHASING MANAGER Family history of malignant neoplasm of [...] po q12hr PRN Cough HYDROCOD POLST-CHLORPHEN POLST 26302185825 Active Marta Viramontes APRN Active VITAMIN D3 69561 UNIT CAPS 1 qWeek x 4 months for vitamin D deficiency 04/09 CHOLECALCIFEROL 71786718782 Active Marta Viramontes APRN Active CEPHALEXIN 500 MG ORAL CAPS Take one four times a day CEPHALEXIN 74691448091 No Longer Active Marta Viramontes APRN Active BIOTIN 1000 MCG ORAL TABS Take one daily BIOTIN 66609272577 Active Rikki Harms PA Active VITAMIN C 500 MG ORAL CAPS Take one daily ASCORBIC ACID 71288971789 Active Rikki Harms PA Active BENZONATATE 200 MG ORAL CAPS One capsule tid. BENZONATATE 46858433915 No Longer Active Rikki Harms PA Active FLONASE ALLERGY RELIEF 50 MCG/ACT NASAL SUSP spray twice in each nostril one time daily FLUTICASONE PROPIONATE 81024189953 No Longer Active Rikki Harms PA Active TUSSIONEX PENNKINETIC ER 10-8 MG/5ML LQCR 5ml po q12hr PRN Cough HYDROCOD POLST-CHLORPHEN POLST 73044223871 No Longer Active Rikki Harms PA Active NIACIN ER 500 MG ORAL CR-TABS Take one twice daily NIACIN 23682432078 Active Rikki Harms PA Active ALBUTEROL SULFATE 0.083 % NEBU SOLN one vial per nebulizer every 4-6 hours as needed ALBUTEROL SULFATE 53701486565 No Longer Active Rikki Harms PA Active MEDROL (CAROLYN) 4 MG TABS 6 tabs on day 1, 5 tabs on day 2, 4 tabs on day 3, 3 tabs on day 4, 2 tabs on day 5, 1 tab on day 6 METHYLPREDNISOLONE 93246240965 No Longer Active Rikki Harms PA Active LEVAQUIN 750 MG TABS 1 po qd x 7 days LEVOFLOXACIN 27823282282 No Longer Active Rikki Harms PA Active LEVAQUIN 500 MG ORAL TABS Take one tablet daily LEVOFLOXACIN 06282569031 No Longer Active Rikki Harms PA Active PROAIR HFA 108 (90 BASE) MCG/ACT AERS 2 puffs four times a day as needed 2014 ALBUTEROL SULFATE 14224357419 Active Marta Yokum MEDICAL RECORDS COORDINATOR Active LEVAQUIN 500 MG TAB 1 tablet by mouth daily LEVOFLOXACIN 20879736181 No Longer Active Marta Yokum MEDICAL RECORDS COORDINATOR Active CHERATUSSIN AC 100-10 MG/5ML SYRP 1 tsp by mouth every 4 hours as needed for cough GUAIFENESIN-CODEINE 71421622458 No Longer Active Rikki Harms PA Active MUPIROCIN 2 % EXT OINT Use in each nostril in am and pm MUPIROCIN 02093207799 No Longer Active Rikki Harms PA Active DOXYCYCLINE HYCLATE 100 MG ORAL CAPS Take one bid DOXYCYCLINE HYCLATE 66374405971 No Longer Active Rikki Harms PA Active CLARITIN 10 MG TABS 1prn LORATADINE 95766251137 No Longer Active Jocelyne Naff PURCHASING MANAGER Active ASPIRIN 81 MG TABS 1qd ASPIRIN 11321695165 No Longer Active Jocelyne Naff PURCHASING MANAGER Active DOXYCYCLINE HYCLATE 100 MG CAP 1 cap by mouth twice daily DOXYCYCLINE HYCLATE 69623864015 No Longer Active Rikki Harms PA Active VITAMIN D3 80094 UNIT CAPS 1 pill by mouth weekly, for vitamin D deficiency CHOLECALCIFEROL 51974561049 No Longer Active Jennifer Chun MD PhD Active ANASTROZOLE 1 MG ORAL TABS Take one by mouth daily ANASTROZOLE 43578089336 Active Jennifer Chun MD PhD Active ZITHROMAX 250 MG TAB 2 po today, then 1 po q days 2-5 AZITHROMYCIN 51342105111 No Longer Active Rikki Harms PA Active MECLIZINE HCL 25 MG TABS 1 prn MECLIZINE HCL 34852792549 No Longer Active Solomon Alamo MD Active CHERATUSSIN AC SYRP prn as directed GUAIFENESIN- CODEINE SYRP 44860458403 No Longer Active Rikki Harms PA Active MULTIVITAMINS TABS 1qd MULTIPLE VITAMIN 15870315199 No Longer Active Rikki Harms PA Active OMEPRAZOLE 20 MG CPDR 1 PO Q D OMEPRAZOLE 00205379922 Active Marta Viramontes MEDICAL RECORDS COORDINATOR Active ZITHROMAX Z-CAROLYN 250 MG TABS 2x1day,1g2qibi AZITHROMYCIN 10851553975 No Longer Active Jocelyne Lovell PURCHASING MANAGER Active MULTIVITAMINS TABS 1qd MULTIVITAMINS TABS MULTIPLE VITAMIN Inactive CHERATUSSIN AC SYRP prn as directed CHERATUSSIN AC SYRP GUAIFENESIN-CODEINE SYRP Inactive MECLIZINE HCL 25 MG TABS 1 prn MECLIZINE HCL 25 MG TABS 759524 MECLIZINE HCL Inactive ASPIRIN 81 MG TABS 1qd ASPIRIN 81 MG TABS ASPIRIN Inactive CLARITIN 10 MG TABS 1prn CLARITIN 10 MG TABS 187017 LORATADINE Inactive DOXYCYCLINE HYCLATE 100 MG ORAL CAPS Take one bid DOXYCYCLINE HYCLATE 100 MG ORAL CAPS 6762861 DOXYCYCLINE HYCLATE Inactive MUPIROCIN 2 % EXT OINT Use in each nostril in am and pm MUPIROCIN 2 % EXT OINT 073191 MUPIROCIN Inactive CHERATUSSIN AC 100-10 MG/5ML SYRP 1 tsp by mouth every 4 hours as needed for cough CHERATUSSIN AC 100-10 MG/5ML SYRP 595113 GUAIFENESIN-CODEINE Inactive LEVAQUIN 500 MG TAB 1 tablet by mouth daily LEVAQUIN 500 MG TAB 883566 LEVOFLOXACIN Inactive LEVAQUIN 500 MG ORAL TABS Take one tablet daily LEVAQUIN 500 MG ORAL TABS 19980111 LEVOFLOXACIN Inactive LEVAQUIN 750 MG TABS 1 po qd x 7 days LEVAQUIN 750 MG TABS 595473 LEVOFLOXACIN Inactive ALBUTEROL SULFATE 0.083 % NEBU SOLN one vial per nebulizer every 4-6 hours as needed ALBUTEROL SULFATE 0.083 % NEBU SOLN 293542 ALBUTEROL SULFATE Inactive TUSSIONEX PENNKINETIC ER 10-8 MG/5ML LQCR 5ml po q12hr PRN Cough TUSSIONEX PENNKINETIC ER 10-8 MG/5ML LQCR HYDROCOD POLST- CHLORPHEN POLST Inactive FLONASE ALLERGY RELIEF 50 MCG/ACT NASAL SUSP spray twice in each nostril one time daily FLONASE ALLERGY RELIEF 50 MCG/ACT NASAL SUSP 8763790 FLUTICASONE PROPIONATE Inactive BENZONATATE 200 MG ORAL CAPS One capsule tid. BENZONATATE 200 MG ORAL CAPS 850369 BENZONATATE Inactive CEPHALEXIN 500 MG ORAL CAPS Take one four times a day CEPHALEXIN 500 MG ORAL CAPS 692096 CEPHALEXIN Inactive ZITHROMAX Z-CAROLYN 250 MG TABS 2x1day,8n2ucjr ZITHROMAX Z-CAROLYN 250 MG TABS 7596128 AZITHROMYCIN Inactive ZITHROMAX 250 MG TAB 2 po today, then 1 po q days 2-5 ZITHROMAX 250 MG TAB 5365529 AZITHROMYCIN Inactive VITAMIN D3 07791 UNIT CAPS 1 pill by mouth weekly, for vitamin D deficiency VITAMIN D3 02278 UNIT CAPS CHOLECALCIFEROL Inactive DOXYCYCLINE HYCLATE 100 MG CAP 1 cap by mouth twice daily DOXYCYCLINE HYCLATE 100 MG CAP 0756910 DOXYCYCLINE HYCLATE Inactive MEDROL (CAROLYN) 4 MG TABS 6 tabs on day 1, 5 tabs on day 2, 4 tabs on day 3, 3 tabs on day 4, 2 tabs on day 5, 1 tab on day 6 MEDROL ( CAROLYN) 4 MG TABS 340866 METHYLPREDNISOLONE Inactive Vital Signs Date Name Value [...] Panel - Chemistry sodium, serum 142 mmol/L 765-951 0288/07/25 potassium, serum 4.0 mmol/L 3.5-5.2 chloride, serum 107 mmol/L 98-107 carbon dioxide, venous blood 31.6 mmol/L 21.0-32.0 blood glucose 108 mg/dL 65-110 calcium, serum 9.2 mg/dL 8.5-10.1 urea nitrogen, blood 20 mg/dL 7-18 creatinine, serum 0.92 mg/dL 0.55-1.30 sodium, serum 141 mmol/L 710-922 5097/11/11 potassium, serum 4.2 mmol/L 3.5-5.2 chloride, serum 106 mmol/L 98-107 carbon dioxide, venous blood 29.1 mmol/L 21.0-32.0 blood glucose 95 mg/dL 65-110 calcium, serum 8.6 mg/dL 8.5-10.1 urea nitrogen, blood 23 mg/dL 7-18 creatinine, serum 0.83 mg/dL 0.55-1.30 Lab Report: Lipid Panel, Thyroid Stimulating Hormone (L) - Chemistry cholesterol, serum 177 mg/dL 418-731 3932/10/31 triglyceride, serum, fasting 64 mg/dL 30-200 HDL cholesterol, serum 77 mg/dL 32-96 LDL cholesterol, serum 87 mg/dL 0-130 TSH 2.13 m[iU]/mL 0.36-3.74 Lab Report: VITAMIN D, 25-HYDROXY/49412 - Chemistry vitamin D 25-hydroxy, serum 25 ng/mL 30-100 Encounters Code Encounter Date Provider Facility CPT-35873 Level 4 Est. Patient 17:31:07 CDT Marta Viramontes [facility] CPT-92134 Level 3 Est. Patient 05:11:40 CDT Rikki GRANADOS [facility] CPT-59059 Level 2 Est. Patient 14:30:43 RAIL FILLER Marta Viramontes [facility][note 3] CPT-18814 Level 4 Est. Patient 09:14:36 RAIL FILLER Rikki GRANADOS [facility] CPT-29658 Level 2 Est. Patient 09:07:32 CDT Marta Viramontes [place] [facility] CPT-45555 Level 4 Est. Patient 11:55:00 CDT Rikki GRANADOS [facility] CPT-38856 Level 3 Est. Patient 13:25:16 CDT Jennifer Chun MD, PhD [facility] CPT-31274 Level 3 Est. Patient 17:31:22 CDT Solomon Alamo MD [facility] CPT-70150 Level 3 Est. Patient 08:02:14 CDT Solomon Alamo MD [facility] CPT-89324 Level 3 Est. Patient 17:23:53 CDT Rikki GRANADOS [facility] CPT-30103 Level 3 Est. Patient 11:22:41 CDT Darryn Hearn [facility] Procedures Code Procedure Name Date Entry Date Standard Description CPT-81617 Venipuncture Draw Fee 12:43:48 RAIL FILLER CPT-32635 BMP - LAB USE ONLY 10:32:33 RAIL FILLER CPT-77026 Venipuncture Draw Fee 10:32:33 RAIL FILLER CPT-85517 Magnesium - LAB USE ONLY 09:54:30 CDT CPT-69117 TSH - LAB USE ONLY 09:54:30 CDT CPT-53517 Lipid - LAB USE ONLY 09:54:30 CDT CPT-15450 Venipuncture Draw Fee 09:54:29 CDT CPT-29992 Venipuncture Draw Fee 18:27:04 CDT CPT-67768 Chest 2V Frontal and Lat 10:57:00 RAIL FILLER CPT-62418 Venipuncture Draw Fee 10:56:59 RAIL FILLER CPT-43359 Venipuncture Draw Fee 09:22:28 RAIL FILLER CPT-03628 Chest 2V Frontal and Lat 09:22:27 RAIL FILLER CPT-I/D I/D Abscess 09:43:13 CDT CPT-64074 Venipuncture Draw Fee 08:16:46 RAIL FILLER CPT-65541 Venipuncture Draw Fee 08:18:55 RAIL FILLER CPT-34295 Venipuncture Draw Fee 08:31:18 RAIL FILLER CPT-78714 Venipuncture Draw Fee 11:42:52 RAIL FILLER CPT-30726 Venipuncture Draw Fee 13:26:37 RAIL FILLER CPT-24998 Venipuncture Draw Fee 09:23:38 RAIL FILLER CPT-000 Give Appropriate Tetanus Booster 10:23:50 CDT CPT-23370 Bone Density 08:28:45 CDT CPT-44891 Bone Density 11:35:15 CDT CPT-PV Prev. Care Visit 12:19:00 CDT CPT-33328 Venipuncture Draw Fee 15:02:58 CDT
--- OUTSIDE RECORDS SUMMARY | 2018-01-19 08:04 | XMS REPORT | Clinical Summary ---
Author Author Admin, E Organization [facility] Address Unknown Phone Unavailable Allergies, Adverse Reactions, Alerts Allergy Name Reaction Description Start Date Severity Status Provider SULFA facial swelling Critical Active Jocelyne Naff [employer] Conditions or Problems Problem Name Problem Code Onset Date Status Entry Date Provider Comment Standard Description Annotate G E R D 530.81 Active Jocelyne Naff [employer] Esophageal reflux FH COLON CANCER V16.0 Active Jocelyne Naff [employer] Family history of malignant neoplasm of gastrointestinal [...] (natural) Breast cancer 174.9 Resolved Marta Viramontes [employer]GRAM[employer] Malignant neoplasm of breast (female), unspecified Vitamin [...] abscess of unspecified sites Rash 782.1 Resolved Rkiki Harms PA Rash and other nonspecific skin [...] Ingrown toenail, left 703.0 Resolved Marta Yokum [employer] PROGRAMMER Ingrowing nail cellulitis, finger, right 681.00 Resolved Marta Yokum [employer] PROGRAMMER Cellulitis and abscess of finger, unspecified Cough 786.2 Resolved Marta Yokum [employer] SOFTWARE PROGRAMMER Cough Bronchitis, acute 466.0 Active Marta Yokum [employer] SOFTWARE PROGRAMMER Acute bronchitis Breast microcalcification ICD-793.81 Inactive Jennifer Chun MD PhD Abnormal Mammogram ICD-793.80 Inactive Jennifer Chun MD PhD Breast cancer ICD-174.9 Inactive Marta Yokum [employer] Soft tissue infection ICD-528.9 Inactive Rikki Daryn PA Abscess, skin ICD-682.9 Inactive Rikki Harms PA Cellulitis, 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 Rikki Harms PA Rash ICD-782.1 Inactive Rikki Harms PA Upper respiratory infection, acute ICD-465.9 Inactive Rikki Harms PA Chemotherapy ICD-V58.11 Inactive Rikki Daryn PA Cough, chronic ICD-786.2 Inactive Rikki Daryn PA Ingrown toenail, left ICD-703.0 Inactive Marta Yokum [employer] PROGRAMMER cellulitis, finger, right ICD-681.00 Inactive Marta Yokum [employer] SOFTWARE PROGRAMMER Cough ICD-786.2 Inactive Marta Yokum [employer] SOFTWARE PROGRAMMER Medication List Medication Instructions Start Date Stop Date Generic Name NDC Status Provider Patient Instruction PROAIR HFA 108 (90 BASE) MCG/ACT INHALATION AEROSOL SOLUTION 2 puffs four times a day as needed ALBUTEROL SULFATE 83469364357 No Longer Active Marta Yokum [employer] SOFTWARE PROGRAMMER Active DOXYCYCLINE HYCLATE 100 MG ORAL CAPSULE 1 cap by mouth twice daily DOXYCYCLINE HYCLATE 16320878982 No Longer Active Marta Yokum [employer] SOFTWARE PROGRAMMER Active PROAIR HFA 108 (90 BASE) MCG/ACT INHALATION AEROSOL SOLUTION 2 puffs four times a day as needed ALBUTEROL SULFATE 27108247791 Active Marta Yokum [employer] SOFTWARE PROGRAMMER Active AUGMENTIN 875-125 MG ORAL TABLET Take one tablet twice a day with food 04/25 AMOXICILLIN-POT CLAVULANATE 18118256635 No Longer Active Marta Yokum [employer] SOFTWARE PROGRAMMER Active TESSALON PERLES 100 MG ORAL CAPSULE 1 to 2 tablets by mouth 3 times daily as needed for cough BENZONATATE 82567593633 No Longer Active Marta Yokum [employer] SOFTWARE PROGRAMMER Active AUGMENTIN 875-125 MG ORAL TABLET 1 po BID x 10 days AMOXICILLIN-POT CLAVULANATE 61422616424 No Longer Active Marta Yokum [employer] SOFTWARE PROGRAMMER Active MEDROL 4 MG ORAL TABLET THERAPY PACK 6 tabs on day 1, 5 tabs on day 2, 4 tabs on day 3, 3 tabs on day 4, 2 tabs on day 5, 1 tab on day 6 METHYLPREDNISOLONE 24308254187 No Longer Active Marta Yokum [employer] PROGRAMMER Active TUSSIONEX PENNKINETIC ER 10-8 MG/5ML ORAL SUSPENSION EXTENDED RELEASE 5ml po q12hr PRN Cough HYDROCOD POLST-CHLORPHEN POLST 13789609382 Active Marta Yokum [employer] SOFTWARE PROGRAMMER Active KEFLEX 500 MG ORAL CAPSULE 1 po qid CEPHALEXIN 69761006309 No Longer Active Marta Yokum [employer] SOFTWARE PROGRAMMER Active B COMPLEX 50 ORAL TABLET EXTENDED RELEASE B COMPLEX VITAMINS 92799566106 Active Marta Yokum [employer] SOFTWARE PROGRAMMER Active TUSSIONEX PENNKINETIC ER 10-8 MG/5ML ORAL SUSPENSION EXTENDED RELEASE 5ml po q12hr PRN Cough HYDROCOD POLST-CHLORPHEN POLST 35061647872 No Longer Active Marta Yokum [employer] SOFTWARE PROGRAMMER Active VITAMIN D3 48056 UNIT ORAL CAPSULE 1 qWeek x 4 months for vitamin D deficiency CHOLECALCIFEROL 38080496070 Active Marta Yokum [employer] SOFTWARE PROGRAMMER Active CEPHALEXIN 500 MG ORAL CAPSULE Take one four times a day CEPHALEXIN 34696078787 No Longer Active Marta Yokum [employer] SOFTWARE PROGRAMMER Active BIOTIN 1000 MCG ORAL TABLET Take one daily BIOTIN 95728012591 Active Rikki Harms PA Active VITAMIN C 500 MG ORAL CAPSULE Take one daily ASCORBIC ACID 08694524502 Active Rikki Harms PA Active BENZONATATE 200 MG ORAL CAPSULE One capsule tid. BENZONATATE 73808204745 No Longer Active Rikki Harms PA Active FLONASE ALLERGY RELIEF 50 MCG/ACT NASAL SUSPENSION spray twice in each nostril one time daily FLUTICASONE PROPIONATE 57354219574 No Longer Active Rikki Harms PA Active TUSSIONEX PENNKINETIC ER 10-8 MG/5ML ORAL SUSPENSION EXTENDED RELEASE 5ml po q12hr PRN Cough HYDROCOD POLST-CHLORPHEN POLST 52324780959 No Longer Active Rikki Harms PA Active NIACIN ER 500 MG ORAL TABLET EXTENDED RELEASE Take one twice daily NIACIN 87820343723 Active Rikki Harms PA Active ALBUTEROL SULFATE (2.5 MG/3ML) 0.083% INHALATION NEBULIZATION SOLUTION one vial per nebulizer every 4-6 hours as needed ALBUTEROL SULFATE 63685837249 No Longer Active Rikki Harms PA Active MEDROL 4 MG ORAL TABLET THERAPY PACK 6 tabs on day 1, 5 tabs on day 2, 4 tabs on day 3, 3 tabs on day 4, 2 tabs on day 5, 1 tab on day 6 METHYLPREDNISOLONE 17449053157 No Longer Active Rikki Harms PA Active LEVAQUIN 750 MG ORAL TABLET 1 po qd x 7 days LEVOFLOXACIN 22428223012 No Longer Active Rikki Harms PA Active LEVAQUIN 500 MG ORAL TABLET Take one tablet daily LEVOFLOXACIN 87453762767 No Longer Active Rikki Harms PA Active LEVAQUIN 500 MG ORAL TABLET 1 tablet by mouth daily LEVOFLOXACIN 27518367318 No Longer Active Marta Viramontes APRN Active CHERATUSSIN AC 100-10 MG/5ML ORAL SYRUP 1 tsp by mouth every 4 hours as needed for cough GUAIFENESIN-CODEINE 20389583922 No Longer Active Rikki Harms PA Active MUPIROCIN 2 % EXTERNAL OINTMENT Use in each nostril in am and pm MUPIROCIN 16989549213 No Longer Active Rikki Harms PA Active DOXYCYCLINE HYCLATE 100 MG ORAL CAPSULE Take one bid DOXYCYCLINE HYCLATE 04564499043 No Longer Active Rikki Harms PA Active CLARITIN 10 MG ORAL TABLET 1prn LORATADINE 96552314089 No Longer Active Jocelyne Naff [employer] Active ASPIRIN 81 MG ORAL TABLET 1qd ASPIRIN 64611541352 No Longer Active Jocelyne Naff [employer] Active DOXYCYCLINE HYCLATE 100 MG ORAL CAPSULE 1 cap by mouth twice daily DOXYCYCLINE HYCLATE 95036604116 No Longer Active Rikki Harms PA Active VITAMIN D3 60273 UNIT ORAL CAPSULE 1 pill by mouth weekly, for vitamin D deficiency CHOLECALCIFEROL 40323626685 No Longer Active Jennifer Chun MD PhD Active ANASTROZOLE 1 MG ORAL TABLET Take one by mouth daily ANASTROZOLE 83807151330 Active Jennifer Chun MD PhD Active ZITHROMAX 250 MG ORAL TABLET 2 po today, then 1 po q days 2-5 AZITHROMYCIN 49682542257 No Longer Active Rikki Harms PA Active MECLIZINE HCL 25 MG ORAL TABLET 1 prn MECLIZINE HCL 21591127641 No Longer Active Solomon Alamo MD Active CHERATUSSIN AC SYRUP prn as directed GUAIFENESIN- CODEINE SYRP 46705642035 No Longer Active Rikki Harms PA Active MULTIVITAMINS TABS 1qd MULTIPLE VITAMIN 26231474128 No Longer Active Rikki Harms PA Active OMEPRAZOLE 20 MG ORAL CAPSULE DELAYED RELEASE 1 PO Q D OMEPRAZOLE 82644019179 Active Jocelyne Naff [employer] Active ZITHROMAX Z-CAROLYN 250 MG ORAL TABLET 2x1day,1k2gnpb AZITHROMYCIN 97840059786 No Longer Active Jocelyne Naff [employer] Active MULTIVITAMINS TABS 1qd MULTIVITAMINS TABS MULTIPLE VITAMIN Inactive CHERATUSSIN AC SYRUP prn as directed CHERATUSSIN AC SYRUP GUAIFENESIN-CODEINE SYRP Inactive MECLIZINE HCL 25 MG ORAL TABLET 1 prn MECLIZINE HCL 25 MG ORAL TABLET 964598 MECLIZINE HCL Inactive ASPIRIN 81 MG ORAL TABLET 1qd ASPIRIN 81 MG ORAL TABLET 058246 ASPIRIN Inactive CLARITIN 10 MG ORAL TABLET 1prn CLARITIN 10 MG ORAL TABLET 268735 LORATADINE Inactive DOXYCYCLINE HYCLATE 100 MG ORAL CAPSULE Take one bid DOXYCYCLINE HYCLATE 100 MG ORAL CAPSULE 8815348 DOXYCYCLINE HYCLATE Inactive MUPIROCIN 2 % EXTERNAL OINTMENT Use in each nostril in am and pm MUPIROCIN 2 % EXTERNAL OINTMENT 768433 MUPIROCIN Inactive CHERATUSSIN AC 100-10 MG/5ML ORAL SYRUP 1 tsp by mouth every 4 hours as needed for cough CHERATUSSIN AC 100-10 MG/5ML ORAL SYRUP 660029 GUAIFENESIN-CODEINE Inactive LEVAQUIN 500 MG ORAL TABLET 1 tablet by mouth daily LEVAQUIN 500 MG ORAL TABLET 079158 LEVOFLOXACIN Inactive LEVAQUIN 500 MG ORAL TABLET Take one tablet daily LEVAQUIN 500 MG ORAL TABLET 209856 LEVOFLOXACIN Inactive LEVAQUIN 750 MG ORAL TABLET 1 po qd x 7 days LEVAQUIN 750 MG ORAL TABLET 856447 LEVOFLOXACIN Inactive ALBUTEROL SULFATE (2.5 MG/3ML) 0.083% INHALATION NEBULIZATION SOLUTION one vial per nebulizer every 4-6 hours as needed ALBUTEROL SULFATE (2.5 MG/3ML) 0.083% INHALATION NEBULIZATION SOLUTION 756269 ALBUTEROL SULFATE Inactive TUSSIONEX PENNKINETIC ER 10-8 MG/5ML ORAL SUSPENSION EXTENDED RELEASE 5ml po q12hr PRN Cough TUSSIONEX PENNKINETIC ER 10-8 MG/5ML ORAL SUSPENSION EXTENDED RELEASE HYDROCOD POLST-CHLORPHEN POLST Inactive FLONASE ALLERGY RELIEF 50 MCG/ACT NASAL SUSPENSION spray twice in each nostril one time daily FLONASE ALLERGY RELIEF 50 MCG/ ACT NASAL SUSPENSION 6832773 FLUTICASONE PROPIONATE Inactive BENZONATATE 200 MG ORAL CAPSULE One capsule tid. BENZONATATE 200 MG ORAL CAPSULE 504153 BENZONATATE Inactive CEPHALEXIN 500 MG ORAL CAPSULE Take one four times a day CEPHALEXIN 500 MG ORAL CAPSULE 587171 CEPHALEXIN Inactive TUSSIONEX PENNKINETIC ER 10-8 MG/5ML ORAL SUSPENSION EXTENDED RELEASE 5ml po q12hr PRN Cough TUSSIONEX PENNKINETIC ER 10-8 MG/5ML ORAL SUSPENSION EXTENDED RELEASE HYDROCOD POLST-CHLORPHEN POLST Inactive TESSALON PERLES 100 MG ORAL CAPSULE 1 to 2 tablets by mouth 3 times daily as needed for cough TESSALON PERLES 100 MG ORAL CAPSULE 752596 BENZONATATE Inactive PROAIR HFA 108 (90 BASE) MCG/ACT INHALATION AEROSOL SOLUTION 2 puffs four times a day as needed PROAIR HFA 108 (90 BASE) MCG/ACT INHALATION AEROSOL SOLUTION ALBUTEROL SULFATE Inactive ZITHROMAX Z-CAROLYN 250 MG ORAL TABLET 2x1day,[id number] ZITHROMAX Z-CAROLYN 250 MG ORAL TABLET 003707 AZITHROMYCIN Inactive ZITHROMAX 250 MG ORAL TABLET 2 po today, then 1 po q days 2-5 ZITHROMAX 250 MG ORAL TABLET 767584 AZITHROMYCIN Inactive VITAMIN D3 93916 UNIT ORAL CAPSULE 1 pill by mouth weekly, for vitamin D deficiency VITAMIN D3 59074 UNIT ORAL CAPSULE CHOLECALCIFEROL Inactive DOXYCYCLINE HYCLATE 100 MG ORAL CAPSULE 1 cap by mouth twice daily DOXYCYCLINE HYCLATE 100 MG ORAL CAPSULE 9147225 DOXYCYCLINE HYCLATE Inactive MEDROL 4 MG ORAL TABLET THERAPY PACK 6 tabs on day 1, 5 tabs on day 2, 4 tabs on day 3, 3 tabs on day 4, 2 tabs on day 5, 1 tab on day 6 MEDROL 4 MG ORAL TABLET THERAPY PACK 777464 METHYLPREDNISOLONE Inactive KEFLEX 500 MG ORAL CAPSULE 1 po qid KEFLEX 500 MG ORAL CAPSULE 342202 CEPHALEXIN Inactive MEDROL 4 MG ORAL TABLET THERAPY PACK 6 tabs on day 1, 5 tabs on day 2, 4 tabs on day 3, 3 tabs on day 4, 2 tabs on day 5, 1 tab on day 6 MEDROL 4 MG ORAL TABLET THERAPY PACK 890786 METHYLPREDNISOLONE Inactive AUGMENTIN 875-125 MG ORAL TABLET 1 po BID x 10 days AUGMENTIN 875-125 MG ORAL TABLET 977607 AMOXICILLIN-POT CLAVULANATE Inactive AUGMENTIN 875-125 MG ORAL TABLET Take one tablet twice a day with food 04/25 AUGMENTIN 875-125 MG ORAL TABLET 757452 AMOXICILLIN-POT CLAVULANATE Inactive DOXYCYCLINE HYCLATE 100 MG ORAL CAPSULE 1 cap by mouth twice daily DOXYCYCLINE HYCLATE 100 MG ORAL CAPSULE 6891758 DOXYCYCLINE HYCLATE Inactive Vital Signs Date Name [...] Measured Encounters Code Encounter Date Provider Facility CPT-75049 Level 3 Est. Patient 22:53:06 [employer]PLE PACKING HEADER Marta Viramontes [facility]-03259 Level 3 Est. Patient 16:07:34 CDT Marta Ana M [facility] CPT-56017 Level 3 Est. Patient 15:39:01 [address] [facility] Level 4 Est. Patient 17:31:07 CDT Marta Viramontes [facility]-91562 Level 3 Est. Patient 05:11:40 CDT Rikki GRANADOS [facility]-51799 Level 2 Est. Patient 14:30:43 APPLE PACKING HEADER Marta Viramontes [facility] CPT-73342 Level 4 Est. Patient 09:14:36 APPLE PACKING HEADER Rikki GRANADOS [facility] CPT-98591 Level 2 Est. Patient 09:07:32 CDT Marta Caalluisblas [facility] CPT-42111 Level 4 Est. Patient 11:55:00 CDT Rikki GRANADOS [facility] CPT-97257 Level 3 Est. Patient 13:25:16 CDT Jennifer Chun MD PhD [facility]-12669 Level 3 Est. Patient 17:31:22 CDT Solomon Alamo MD [facility]-37270 Level 3 Est. Patient 08:02:14 CDT Solomon Alamo MD [facility]-59411 Level 3 Est. Patient 17:23:53 CDT Rikki Stearns [facility] CPT-58464 Level 3 Est. Patient 11:22:41 CDT Darryn Hearn [facility] Procedures Code Procedure Name Date Entry Date Standard Description CPT-69980 Venipuncture Draw Fee 16:09:39 CDT CPT-64982 Venipuncture Draw Fee 12:43:48 [employer]PLE [employer]ING HEADER CPT-69867 BMP - LAB USE ONLY 10:32:33 APPLE PACKING HEADER CPT-98552 Venipuncture Draw Fee 10:32:33 APPLE PACKING HEADER CPT-01750 Magnesium - LAB USE ONLY 09:54:30 CDT CPT-92178 TSH - LAB USE ONLY 09:54:30 CDT CPT-84421 Lipid - LAB USE ONLY 09:54:30 CDT CPT-45922 Venipuncture Draw Fee 09:54:29 CDT CPT-80073 Venipuncture Draw Fee 18:27:04 CDT CPT-81406 Chest 2V Frontal and Lat 10:57:00 APPLE P[employer]ING HEADER CPT-86683 Venipuncture Draw Fee 10:56:59 APPLE PACKING HEADER CPT-08738 Venipuncture Draw Fee 09:22:28 APPLE PACKING HEADER CPT-47250 Chest 2V Frontal and Lat 09:22:27 APPLE PACKING HEADER CPT-I/D I/D Abscess 09:43:13 CDT CPT-46036 Venipuncture Draw Fee 08:16:46 APPLE PACKING HEADER CPT-23824 Venipuncture Draw Fee 08:18:55 APPLE PACKING HEADER CPT-56508 Venipuncture Draw Fee 08:31:18 APPLE PACKING HEADER CPT-26768 Venipuncture Draw Fee 11:42:52 APPLE PACKING HEADER CPT-27720 Venipuncture Draw Fee 13:26:37 APPLE PACKING HEADER CPT-50793 Venipuncture Draw Fee 09:23:38 APPLE PACKING HEADER CPT-000 Give Appropriate Tetanus Booster 10:23:50 CDT CPT-66507 Bone Density 08:28:45 CDT CPT-25117 Bone Density 11:35:15 CDT CPT-PV Prev. Care Visit 12:19:00 CDT CPT-03866 Venipuncture Draw Fee 15:02:58 CDT
--- OUTSIDE RECORDS SUMMARY | 2018-01-19 08:06 | XMS REPORT | Clinical Summary ---
Author Author Admin, E Organization [facility] [place] Address Unknown Phone Unavailable Allergies, Adverse Reactions, Alerts Allergy Name Reaction Description Start Date Severity Status Provider SULFA facial swelling Critical Active Jocelyne Naff [employer] Conditions or Problems Problem Name Problem Code Onset Date Status Entry Date Provider Comment Standard Description Annotate G E R D 530.81 Active Jocelyne Naff [employer] Esophageal reflux FH COLON CANCER V16.0 Active Jocelyne Naff [employer] C[employer] Family history of malignant neoplasm of gastrointestinal tract ESOPHAGEAL STRICTURE 530.3 Active Darryn Hearn PA Stricture and stenosis of esophagus CAROTID ARTERY STENOSIS, RIGHT 433.10 Active Rikki Stearns PA Occlusion and stenosis of carotid artery, without mention of cerebral infarction HEALTH SCREENING V70.0 Active Rose Darnell [employer] Routine general medical examination at a health [...] unspecified sites Rash 782.1 Active Marta Viramontes [employer]ITCH[employer] WORK[employer] Rash and other nonspecific skin eruption [...] Take one four times a day CEPHALEXIN 50536087626 Active Rikki GRANADOS Active MEDROL (CAROLYN) 4 MG TABS 6 tabs on day 1, 5 tabs on day 2, 4 tabs on day 3, 3 tabs on day 4, 2 tabs on day 5, 1 tab on day 6 METHYLPREDNISOLONE 35384744261 No Longer Active Rikki Harms PA Active ALBUTEROL SULFATE 0.083 % NEBU SOLN one vial per nebulizer every 4-6 hours as needed ALBUTEROL SULFATE 01170281857 Active Rikki Harms PA Active LEVAQUIN 750 MG TABS 1 po qd x 7 days LEVOFLOXACIN 09356396335 No Longer Active Rikki Harms PA Active LEVAQUIN 500 MG ORAL TABS Take one tablet daily LEVOFLOXACIN 13747843558 No Longer Active Rikki Harms PA Active PROAIR HFA 108 (90 BASE) MCG/ACT AERS 2 puffs four times a day as needed 2014 ALBUTEROL SULFATE 24753568072 Active Marta Yokum [employer] Active TUSSIONEX PENNKINETIC ER 10-8 MG/5ML LQCR 5ml po q12hr PRN Cough HYDROCOD POLST-CHLORPHEN POLST 49079579234 Active Rikki Harms PA Active FLONASE ALLERGY RELIEF 50 MCG/ACT NASAL SUSP spray twice in each nostril one time daily FLUTICASONE PROPIONATE 29424431640 Active Marta Yokum [employer] WORK[employer] Active LEVAQUIN 500 MG TAB 1 tablet by mouth daily LEVOFLOXACIN 07982566268 No Longer Active Marta Yokum [employer] WORK[employer] Active BENZONATATE 200 MG ORAL CAPS One capsule tid. 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 ASPIRIN 81 MG TABS 1qd ASPIRIN 21834555083 No Longer Active Jocelyne 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 DOXYCYCLINE HYCLATE 100 MG CAP 1 cap by mouth twice daily DOXYCYCLINE HYCLATE 49759715028 No Longer Active Rikki Harms PA Active VITAMIN D3 25059 UNIT CAPS 1 pill by mouth weekly, for vitamin D deficiency CHOLECALCIFEROL 13353616456 No Longer Active Jennifer Chun MD PhD Active ANASTROZOLE 1 MG ORAL TABS Take one by mouth daily ANASTROZOLE 17846282045 Active Jennifer Chun MD PhD Active ZITHROMAX 250 MG TAB 2 po today, then 1 po q days 2-5 AZITHROMYCIN 01353455257 No Longer Active Rikki Harms PA Active MECLIZINE HCL 25 MG TABS 1 prn MECLIZINE HCL 94028024489 No Longer Active Solomon Alamo MD Active CHERATUSSIN AC SYRP prn as directed GUAIFENESIN- CODEINE SYRP 19503984053 No Longer Active Rikki Harms PA Active MULTIVITAMINS TABS 1qd MULTIPLE VITAMIN 79300272064 No Longer Active Rikki Harms PA Active OMEPRAZOLE 20 MG CPDR 1 PO Q D OMEPRAZOLE 94184404717 Active Rikki Harms PA Active ZITHROMAX Z-CAROLYN 250 MG TABS 2x1day,6h6bdsr AZITHROMYCIN 54175819828 No Longer Active Jocelyne 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 MULTIVITAMINS TABS 1qd MULTIVITAMINS TABS MULTIPLE VITAMIN Inactive CHERATUSSIN AC SYRP prn as directed CHERATUSSIN AC SYRP GUAIFENESIN-CODEINE SYRP Inactive MECLIZINE HCL 25 MG TABS 1 prn MECLIZINE HCL 25 MG TABS 387284 MECLIZINE HCL Inactive ASPIRIN 81 MG TABS 1qd ASPIRIN 81 MG TABS 670193 ASPIRIN Inactive CLARITIN 10 MG TABS 1prn CLARITIN 10 MG TABS 663742 LORATADINE Inactive DOXYCYCLINE HYCLATE 100 MG ORAL CAPS Take one bid DOXYCYCLINE HYCLATE 100 MG ORAL CAPS 9666037 DOXYCYCLINE HYCLATE Inactive MUPIROCIN 2 % EXT OINT Use in each nostril in am and pm MUPIROCIN 2 % EXT OINT 712321 MUPIROCIN Inactive CHERATUSSIN AC 100-10 MG/5ML SYRP 1 tsp by mouth every 4 hours as needed for cough CHERATUSSIN AC 100-10 MG/5ML SYRP 121835 GUAIFENESIN-CODEINE Inactive LEVAQUIN 500 MG TAB 1 tablet by mouth daily LEVAQUIN 500 MG TAB 159539 LEVOFLOXACIN Inactive LEVAQUIN 500 MG ORAL TABS Take one tablet daily LEVAQUIN 500 MG ORAL TABS 853889 LEVOFLOXACIN Inactive LEVAQUIN 750 MG TABS 1 po qd x 7 days LEVAQUIN 750 MG TABS 995808 LEVOFLOXACIN Inactive ZITHROMAX Z-CAROLYN 250 MG TABS 2x1day,0y8ymoc ZITHROMAX Z-CAROLYN 250 MG TABS 2096487 AZITHROMYCIN Inactive ZITHROMAX 250 MG TAB 2 po today, then 1 po q days 2-5 ZITHROMAX 250 MG TAB 7662078 AZITHROMYCIN Inactive VITAMIN D3 49274 UNIT CAPS 1 pill by mouth weekly, for vitamin D deficiency VITAMIN D3 00907 UNIT CAPS CHOLECALCIFEROL Inactive DOXYCYCLINE HYCLATE 100 MG CAP 1 cap by mouth twice daily DOXYCYCLINE HYCLATE 100 MG CAP 1249416 DOXYCYCLINE HYCLATE Inactive MEDROL (CAROLYN) 4 MG TABS 6 tabs on day 1, 5 tabs on day 2, 4 tabs on day 3, 3 tabs on day 4, 2 tabs on day 5, 1 tab on day 6 MEDROL ( CAROLYN) 4 MG TABS 976518 METHYLPREDNISOLONE Inactive Vital Signs Date Name Value [...] % 11.6-14.8 platelet count 143 10^3/MM^3 10*3/mm3 615-068 9232/11/25 leukocyte count, blood 2.1 10^3/MM^3 10*3/mm3 4.6-10.2 [...] % 11.6-14.8 platelet count 139 10^3/MM^3 10*3/mm3 006-117 0954/12/02 leukocyte count, blood 6.7 10^3/MM^3 10*3/mm3 [...] % 11.6-14.8 platelet count 258 10^3/MM^3 10*3/mm3 352-245 5813/12/09 leukocyte count, blood 5.3 10^3/MM^3 10*3/mm3 4.6-10.2 [...] % 11.6-14.8 platelet count 240 10^3/MM^3 10*3/mm3 302-872 7394/12/16 leukocyte count, blood 3.2 10^3/MM^3 10*3/mm3 4.6-10.2 [...] % 11.6-14.8 platelet count 158 10^3/MM^3 10*3/mm3 412-715 2892/12/18 leukocyte count, blood 8.8 10^3/MM^3 10*3/mm3 4.6-10.2 [...] % 11.6-14.8 platelet count 207 10^3/MM^3 10*3/mm3 960-195 1491/12/23 leukocyte count, blood 6.2 10^3/MM^3 10*3/mm3 4.6-10.2 [...] % 11.6-14.8 platelet count 183 10^3/MM^3 10*3/mm3 678-297 2181/11/11 leukocyte count, blood 2.0 10^3/MM^3 10*3/mm3 4.6-10.2 [...] % 11.6-14.8 platelet count 203 10^3/MM^3 10*3/mm3 221-069 8874/12/30 leukocyte count, blood 5.2 10^3/MM^3 10*3/mm3 4.6-10.2 [...] % 11.6-14.8 platelet count 200 10^3/MM^3 10*3/mm3 244-888 6054/03/02 leukocyte count, blood 5.1 10^3/MM^3 10*3/mm3 4.6-10.2 [...] Panel - Chemistry sodium, serum 142 mmol/L 930-107 7674/02/04 carbon dioxide, venous blood 24.9 mmol/L 21.0-32.0 potassium, serum 4.1 mmol/L 3.5-5.2 chloride, serum 106 mmol/L 98-107 blood glucose 103 mg/dL 65-110 urea nitrogen, blood 25 mg/dL 7-18 creatinine, serum 0.83 mg/dL 0.55-1.30 alanine aminotransferase (SGPT), serum 38 U/L 12-78 aspartate aminotransferase (SGOT), serum 26 U/L 15-37 calcium, serum 8.7 mg/dL 8.5-10.1 bilirubin, serum, total 0.30 mg/dL 0.00-1.00 sodium, serum 140 mmol/L 307-219 5844/01/13 carbon dioxide, venous blood 26.4 mmol/L 21.0-32.0 potassium, serum 4.2 mmol/L 3.5-5.2 chloride, serum 104 mmol/L 98-107 blood glucose 101 mg/dL 65-110 urea nitrogen, blood 18 mg/dL 7-18 creatinine, serum 0.80 mg/dL 0.55-1.30 alanine aminotransferase (SGPT), serum 28 U/L -78 aspartate aminotransferase (SGOT), serum 24 U/L 15-37 calcium, serum 8.7 mg/dL 8.5-10.1 bilirubin, serum, total 0.50 mg/dL 0.00-1.00 sodium, serum 138 mmol/L 571-657 1090/11/04 carbon dioxide, venous blood 27.7 mmol/L 21.0-32.0 potassium, serum 4.9 mmol/L 3.5-5.2 chloride, serum 104 mmol/L 98-107 blood glucose 92 mg/dL 65-110 urea nitrogen, blood 24 mg/dL 7-18 creatinine, serum 0.95 mg/dL 0.55-1.30 alanine aminotransferase (SGPT), serum 34 U/L aspartate aminotransferase (SGOT), serum 23 U/L - calcium, serum 8.9 mg/dL 8.5-10.1 bilirubin, serum, total 0.70 mg/dL 0.00-1.00 sodium, serum 140 mmol/L 086-544 5979/01/06 carbon dioxide, venous blood 27.2 mmol/L 21.0-32.0 [...] % 11.6-14.8 platelet count 289 10^3/MM^3 10*3/mm3 840-412 2811/01/06 leukocyte count, blood 4.1 10^3/MM^3 10*3/mm3 4.6-10.2 [...] % 11.6-14.8 platelet count 297 10^3/MM^3 10*3/mm3 724-414 2342/02/04 leukocyte count, blood 4.2 10^3/MM^3 10*3/mm3 4.6-10.2 [...] % 11.6-14.8 platelet count 271 10^3/MM^3 10*3/mm3 372-786 1059/11/04 leukocyte count, blood 3.8 10^3/MM^3 10*3/mm3 4.6-10.2 [...] Panel - Chemistry sodium, serum 140 mmol/L 791-312 7929/07/13 potassium, serum 4.5 mmol/L 3.5-5.2 chloride, serum 106 mmol/L 98-107 carbon dioxide, venous blood 27.7 mmol/L 21.0-32.0 blood glucose 105 mg/dL 65-110 urea nitrogen, blood 14 mg/dL 7-18 creatinine, serum 0.90 mg/dL 0.60-1.30 alanine aminotransferase (SGPT), serum 29 U/L 12-78 aspartate aminotransferase (SGOT), serum 22 U/L 15-37 calcium, serum 9.4 mg/dL 8.5-10.1 bilirubin, serum, total 0.70 mg/dL 0.00-1.00 cholesterol, serum 160 mg/dL 231-012 7058/07/13 triglyceride, serum, fasting 63 mg/dL 30-200 HDL [...] Panel - Chemistry sodium, serum 141 mmol/L 827-368 5670/11/18 carbon dioxide, venous blood 26.2 mmol/L 21.0-32.0 potassium, serum 4.4 mmol/L 3.5-5.2 chloride, serum 106 mmol/L 98-107 blood glucose 102 mg/dL 65-110 urea nitrogen, blood 24 mg/dL 7-18 creatinine, serum 0.77 mg/dL 0.55-1.30 alanine aminotransferase (SGPT), serum 30 U/L 12-78 aspartate aminotransferase (SGOT), serum 15 U/L 15-37 calcium, serum 8.3 mg/dL 8.5-10.1 bilirubin, serum, total 0.30 mg/dL 0.00-1.00 sodium, serum 139 mmol/L 547-709 4786/11/25 carbon dioxide, venous blood 27.9 mmol/L 21.0-32.0 potassium, serum 4.7 mmol/L 3.5-5.2 chloride, serum 105 mmol/L 98-107 blood glucose 94 mg/dL 65-110 urea nitrogen, blood 21 mg/dL 7-18 creatinine, serum 0.79 mg/dL 0.55-1.30 alanine aminotransferase (SGPT), serum 40 U/L aspartate aminotransferase (SGOT), serum 22 U/L 15-37 calcium, serum 8.5 mg/dL 8.5-10.1 bilirubin, serum, total 0.80 mg/dL 0.00-1.00 sodium, serum 142 mmol/L 899-313 5837/12/09 carbon dioxide, venous blood 28.5 mmol/L 21.0-32.0 potassium, serum 5.0 mmol/L 3.5-5.2 chloride, serum 109 mmol/L 98-107 blood glucose 91 mg/dL 65-110 urea nitrogen, blood 27 mg/dL 7-18 creatinine, serum 0.88 mg/dL 0.55-1.30 alanine aminotransferase (SGPT), serum 31 U/L aspartate aminotransferase (SGOT), serum 18 U/L 15-37 calcium, serum 8.9 mg/dL 8.5-10.1 bilirubin, serum, total 0.40 mg/dL 0.00-1.00 sodium, serum 140 mmol/L 477-319 0789/12/16 carbon dioxide, venous blood 25.4 mmol/L 21.0-32.0 potassium, serum 4.1 mmol/L 3.5-5.2 chloride, serum 104 mmol/L 98-107 blood glucose 110 mg/dL 65-110 urea nitrogen, blood 24 mg/dL 7-18 creatinine, serum 0.87 mg/dL 0.55-1.30 alanine aminotransferase (SGPT), serum 35 U/L aspartate aminotransferase (SGOT), serum 21 U/L 15-37 calcium, serum 8.4 mg/dL 8.5-10.1 bilirubin, serum, total 0.50 mg/dL 0.00-1.00 sodium, serum 141 mmol/L 618-313 9161/12/02 carbon dioxide, venous blood 25.9 mmol/L 21.0-32.0 potassium, serum 4.7 mmol/L 3.5-5.2 chloride, serum 106 mmol/L 98-107 blood glucose 78 mg/dL 65-110 urea nitrogen, blood 24 mg/dL 7-18 creatinine, serum 0.75 mg/dL 0.55-1.30 alanine aminotransferase (SGPT), serum 31 U/L aspartate aminotransferase (SGOT), serum 20 U/L - calcium, serum 8.7 mg/dL 8.5-10.1 bilirubin, serum, total 0.30 mg/dL 0.00-1.00 sodium, serum 139 mmol/L 716-443 2206/12/30 carbon dioxide, venous blood 28.2 mmol/L 21.0-32.0 potassium, serum 3.9 mmol/L 3.5-5.2 chloride, serum 105 mmol/L 98-107 blood glucose 91 mg/dL 65-110 urea nitrogen, blood 17 mg/dL 7-18 creatinine, serum 0.81 mg/dL 0.55-1.30 alanine aminotransferase (SGPT), serum 29 U/L aspartate aminotransferase (SGOT), serum 22 U/L - calcium, serum 8.8 mg/dL 8.5-10.1 bilirubin, serum, total 0.50 mg/dL 0.00-1.00 sodium, serum 141 mmol/L 426-470 1773/11/11 carbon dioxide, venous blood 26.8 mmol/L 21.0-32.0 potassium, serum 4.2 mmol/L 3.5-5.2 chloride, serum 106 mmol/L 98-107 blood glucose 95 mg/dL 65-110 urea nitrogen, blood 18 mg/dL 7-18 creatinine, serum 0.70 mg/dL 0.55-1.30 alanine aminotransferase (SGPT), serum 33 U/L 12-78 aspartate aminotransferase (SGOT), serum 22 U/L 15-37 calcium, serum 8.5 mg/dL 8.5-10.1 bilirubin, serum, total 0.30 mg/dL 0.00-1.00 sodium, serum 143 mmol/L 603-557 5495/12/23 carbon dioxide, venous blood 24.6 mmol/L 21.0-32.0 potassium, serum 4.1 mmol/L 3.5-5.2 chloride, serum 107 mmol/L 98-107 blood glucose 98 mg/dL 65-110 urea nitrogen, blood 22 mg/dL 7-18 creatinine, serum 0.77 mg/dL 0.55-1.30 alanine aminotransferase (SGPT), serum 28 U/L 78 aspartate aminotransferase (SGOT), serum 20 U/L 15-37 calcium, serum 8.6 mg/dL 8.5-10.1 bilirubin, serum, total 0.30 mg/dL 0.00-1.00 Lab Report: VITAMIN D, 25-HYDROXY/46914 - Chemistry vitamin D 25-hydroxy, serum 24 ng/mL 30-100 Encounters Code Encounter Date Provider Facility CPT-11659 Level 2 Est. Patient 14:30:43 [employer] Marta Viramontes APRN [facility] [place] CPT-94315 Level 4 Est. 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 [place] CPT-97907 Level 2 Est. Patient 09:07:32 CDT Marta Viramontes APRN [facility] [place] CPT-12716 Level 4 Est. Patient 11:55:[address] [facility] [place] CPT-47541 Level 3 Est. Patient 13:25:16 CDT Jennifer Chun MD PhD [facility] CPT-69483 Level 3 Est. Patient 17:31:22 CDT Solomon Alamo MD [facility] CPT-24919 Level 3 Est. Patient 08:02:14 CDT Solomon Alamo MD [facility] CPT-04812 Level 3 Est. Patient 17:23:[address] [facility] [place] CPT-58215 Level 3 Est. Patient 11:22:[address] [facility] [place] Procedures Code Procedure Name Date Entry Date Standard Description CPT-22404 Chest 2V Frontal and Lat 10:57:00 [employer] CPT-81549 Venipuncture Draw Fee 10:56:59 [employer] CPT-72748 Venipuncture Draw Fee 09:22:28 [employer] CPT-13337 Chest 2V Frontal and Lat 09:22:27 [employer] CPT-I/D I/D Abscess 09:43:13 CDT CPT-34109 Venipuncture Draw Fee 08:16:46 [employer] CPT-92969 Venipuncture Draw Fee 08:18:55 [employer] CPT-42151 Venipuncture Draw Fee 08:31:18 [employer] CPT-60976 Venipuncture Draw Fee 11:42:52 [employer] CPT-02295 Venipuncture Draw Fee 13:26:37 [employer] CPT-10254 Venipuncture Draw Fee 09:23:38 [employer] CPT-000 Give Appropriate Tetanus Booster 10:23:50 CDT CPT-19420 Bone Density 08:28:45 CDT CPT-56509 Bone Density 11:35:15 CDT CPT-PV Prev. Care Visit 12:19:00 CDT CPT-25668 Venipuncture Draw Fee 15:02:58 CDT
--- OUTSIDE RECORDS SUMMARY | 2018-01-19 08:07 | XMS REPORT | Clinical Summary ---
Author Author Admin, E Organization [facility] Address Unknown Phone Unavailable Allergies, Adverse Reactions, Alerts Allergy Name Reaction Description Start Date Severity Status Provider SULFA facial swelling Critical Active Jocelyne Naff [employer] Conditions or Problems Problem Name Problem Code Onset Date Status Entry Date Provider Comment Standard Description Annotate G E R D 530.81 Active Jocelyne Naff [employer] Esophageal reflux FH COLON CANCER V16.0 Active Jocelyne Naff [employer] Family history of malignant neoplasm of gastrointestinal [...] Ingrown toenail, left 703.0 Resolved Marta Yokum [employer] Ingrowing nail cellulitis, finger, right 681.00 Active Marta Yokum [employer] Cellulitis and abscess of finger, unspecified Cough 786.2 Active Marta Yokum [employer] Cough Breast microcalcification ICD-793.81 Inactive Jennifer Chun [...] Ingrown toenail, left ICD-703.0 Inactive Marta Yokum [employer] Medication List Medication Instructions Start Date Stop Date Generic Name NDC Status Provider Patient Instruction MEDROL (CAROLYN) 4 MG TABS 6 tabs on day 1, 5 tabs on day 2, 4 tabs on day 3, 3 tabs on day 4, 2 tabs on day 5, 1 tab on day 6 METHYLPREDNISOLONE 84412286582 Active Marta Yokum [employer] Active TESSALON PERLES 100 MG CAP 1 to 2 tablets by mouth 3 times daily as needed for cough BENZONATATE 56989385971 Active Marta Yokum [employer] Active TUSSIONEX PENNKINETIC ER 10-8 MG/5ML LQCR 5ml po q12hr PRN Cough HYDROCOD POLST-CHLORPHEN POLST 74886382694 Active Marta Yokum [employer] Active KEFLEX 500 MG CAP 1 po qid CEPHALEXIN 17670339244 No Longer Active Marta Yokum [employer] Active B COMPLEX 50 ORAL CR-TABS B COMPLEX VITAMINS 02996465478 Active Marta Yokum [employer] Active TUSSIONEX PENNKINETIC ER 10-8 MG/5ML LQCR 5ml po q12hr PRN Cough HYDROCOD POLST-CHLORPHEN POLST 09801417295 No Longer Active Marta Viramontes APRN Active VITAMIN D3 26559 UNIT CAPS 1 qWeek x 4 months for vitamin D deficiency 04/09 CHOLECALCIFEROL 80791782625 Active Marta Viramontes APRN Active CEPHALEXIN 500 MG ORAL CAPS Take one four times a day CEPHALEXIN 30478711452 No Longer Active Marta Viramontes APRN Active BIOTIN 1000 MCG ORAL TABS Take one daily BIOTIN 27004620982 Active Rikki Harms PA Active VITAMIN C 500 MG ORAL CAPS Take one daily ASCORBIC ACID 74333530535 Active Rikki Harms PA Active BENZONATATE 200 MG ORAL CAPS One capsule tid. BENZONATATE 67292988692 No Longer Active Rikki Harms PA Active FLONASE ALLERGY RELIEF 50 MCG/ACT NASAL SUSP spray twice in each nostril one time daily FLUTICASONE PROPIONATE 64327381269 No Longer Active Rikki Harms PA Active TUSSIONEX PENNKINETIC ER 10-8 MG/5ML LQCR 5ml po q12hr PRN Cough HYDROCOD POLST-CHLORPHEN POLST 02299951107 No Longer Active Rikki Harms PA Active NIACIN ER 500 MG ORAL CR-TABS Take one twice daily NIACIN 10984939509 Active Rikki Harms PA Active ALBUTEROL SULFATE 0.083 % NEBU SOLN one vial per nebulizer every 4-6 hours as needed ALBUTEROL SULFATE 78159085864 No Longer Active Rikki Harms PA Active MEDROL (CAROLYN) 4 MG TABS 6 tabs on day 1, 5 tabs on day 2, 4 tabs on day 3, 3 tabs on day 4, 2 tabs on day 5, 1 tab on day 6 METHYLPREDNISOLONE 07510833995 No Longer Active Rikki Harms PA Active LEVAQUIN 750 MG TABS 1 po qd x 7 days LEVOFLOXACIN 70570377031 No Longer Active Rikki Harms PA Active LEVAQUIN 500 MG ORAL TABS Take one tablet daily LEVOFLOXACIN 54386782245 No Longer Active Rikki Harms PA Active PROAIR HFA 108 (90 BASE) MCG/ACT AERS 2 puffs four times a day as needed 2014 ALBUTEROL SULFATE 20572470087 Active Marta Yokum [employer] Active LEVAQUIN 500 MG TAB 1 tablet by mouth daily LEVOFLOXACIN 69816594193 No Longer Active Marta Yokum [employer] Active CHERATUSSIN AC 100-10 MG/5ML SYRP 1 tsp by mouth every 4 hours as needed for cough GUAIFENESIN-CODEINE 11333124365 No Longer Active Rikki Harms PA Active MUPIROCIN 2 % EXT OINT Use in each nostril in am and pm MUPIROCIN 25835483016 No Longer Active Rikki Harms PA Active DOXYCYCLINE HYCLATE 100 MG ORAL CAPS Take one bid DOXYCYCLINE HYCLATE 51547011634 No Longer Active Rikki Harms PA Active CLARITIN 10 MG TABS 1prn LORATADINE 28471542768 No Longer Active Jocelyne Naff [employer] Active ASPIRIN 81 MG TABS 1qd ASPIRIN 60249816750 No Longer Active Jocelyne Naff [employer] Active DOXYCYCLINE HYCLATE 100 MG CAP 1 cap by mouth twice daily DOXYCYCLINE HYCLATE 98129695767 No Longer Active Rikki Harms PA Active VITAMIN D3 88095 UNIT CAPS 1 pill by mouth weekly, for vitamin D deficiency CHOLECALCIFEROL 81043902133 No Longer Active Jennifer Chun MD PhD Active ANASTROZOLE 1 MG ORAL TABS Take one by mouth daily ANASTROZOLE 49127885161 Active Jennifer Chun MD PhD Active ZITHROMAX 250 MG TAB 2 po today, then 1 po q days 2-5 AZITHROMYCIN 65316279139 No Longer Active Rikki Harms PA Active MECLIZINE HCL 25 MG TABS 1 prn MECLIZINE HCL 20576850046 No Longer Active Solomon Alamo MD Active CHERATUSSIN AC SYRP prn as directed GUAIFENESIN- CODEINE SYRP 13512530404 No Longer Active Rikki Harms PA Active MULTIVITAMINS TABS 1qd MULTIPLE VITAMIN 01973985197 No Longer Active Rikki Harms PA Active OMEPRAZOLE 20 MG CPDR 1 PO Q D OMEPRAZOLE 85525359937 Active Jocelyne Naff [employer] Active ZITHROMAX Z-CAROLYN 250 MG TABS 2x1day,5l2cfoa AZITHROMYCIN 33104538909 No Longer Active Jocelyne Naff [employer] Active MULTIVITAMINS TABS 1qd MULTIVITAMINS TABS MULTIPLE VITAMIN Inactive CHERATUSSIN AC SYRP prn as directed CHERATUSSIN AC SYRP GUAIFENESIN-CODEINE SYRP Inactive MECLIZINE HCL 25 MG TABS 1 prn MECLIZINE HCL 25 MG TABS 735653 MECLIZINE HCL Inactive ASPIRIN 81 MG TABS 1qd ASPIRIN 81 MG TABS ASPIRIN Inactive CLARITIN 10 MG TABS 1prn CLARITIN 10 MG TABS 125074 LORATADINE Inactive DOXYCYCLINE HYCLATE 100 MG ORAL CAPS Take one bid DOXYCYCLINE HYCLATE 100 MG ORAL CAPS 1500975 DOXYCYCLINE HYCLATE Inactive MUPIROCIN 2 % EXT OINT Use in each nostril in am and pm MUPIROCIN 2 % EXT OINT 829152 MUPIROCIN Inactive CHERATUSSIN AC 100-10 MG/5ML SYRP 1 tsp by mouth every 4 hours as needed for cough CHERATUSSIN AC 100-10 MG/5ML SYRP 969703 GUAIFENESIN-CODEINE Inactive LEVAQUIN 500 MG TAB 1 tablet by mouth daily LEVAQUIN 500 MG TAB 205357 LEVOFLOXACIN Inactive LEVAQUIN 500 MG ORAL TABS Take one tablet daily LEVAQUIN 500 MG ORAL TABS 19980111 LEVOFLOXACIN Inactive LEVAQUIN 750 MG TABS 1 po qd x 7 days LEVAQUIN 750 MG TABS 664805 LEVOFLOXACIN Inactive ALBUTEROL SULFATE 0.083 % NEBU SOLN one vial per nebulizer every 4-6 hours as needed ALBUTEROL SULFATE 0.083 % NEBU SOLN 678757 ALBUTEROL SULFATE Inactive TUSSIONEX PENNKINETIC ER 10-8 MG/5ML LQCR 5ml po q12hr PRN Cough TUSSIONEX PENNKINETIC ER 10-8 MG/5ML LQCR HYDROCOD POLST- CHLORPHEN POLST Inactive FLONASE ALLERGY RELIEF 50 MCG/ACT NASAL SUSP spray twice in each nostril one time daily FLONASE ALLERGY RELIEF 50 MCG/ACT NASAL SUSP 5556097 FLUTICASONE PROPIONATE Inactive BENZONATATE 200 MG ORAL CAPS One capsule tid. BENZONATATE 200 MG ORAL CAPS 674833 BENZONATATE Inactive CEPHALEXIN 500 MG ORAL CAPS Take one four times a day CEPHALEXIN 500 MG ORAL CAPS 577655 CEPHALEXIN Inactive TUSSIONEX PENNKINETIC ER 10-8 MG/5ML LQCR 5ml po q12hr PRN Cough TUSSIONEX PENNKINETIC ER 10-8 MG/5ML LQCR HYDROCOD POLST- CHLORPHEN POLST Inactive ZITHROMAX Z-CAROLYN 250 MG TABS 2x1day,9f3ytow ZITHROMAX Z-CAROLYN 250 MG TABS 9659289 AZITHROMYCIN Inactive ZITHROMAX 250 MG TAB 2 po today, then 1 po q days 2-5 ZITHROMAX 250 MG TAB 2421480 AZITHROMYCIN Inactive VITAMIN D3 26741 UNIT CAPS 1 pill by mouth weekly, for vitamin D deficiency VITAMIN D3 51267 UNIT CAPS CHOLECALCIFEROL Inactive DOXYCYCLINE HYCLATE 100 MG CAP 1 cap by mouth twice daily DOXYCYCLINE HYCLATE 100 MG CAP 8317803 DOXYCYCLINE HYCLATE Inactive MEDROL (CAROLYN) 4 MG TABS 6 tabs on day 1, 5 tabs on day 2, 4 tabs on day 3, 3 tabs on day 4, 2 tabs on day 5, 1 tab on day 6 MEDROL ( CAROLYN) 4 MG TABS 285010 METHYLPREDNISOLONE Inactive KEFLEX 500 MG CAP 1 po qid KEFLEX 500 MG CAP 357066 CEPHALEXIN Inactive Vital Signs Date Name Value [...] Panel - Chemistry sodium, serum 142 mmol/L 449-300 4465/07/25 potassium, serum 4.0 mmol/L 3.5-5.2 chloride, serum 107 mmol/L 98-107 carbon dioxide, venous blood 31.6 mmol/L 21.0-32.0 blood glucose 108 mg/dL 65-110 calcium, serum 9.2 mg/dL 8.5-10.1 urea nitrogen, blood 20 mg/dL 7-18 creatinine, serum 0.92 mg/dL 0.55-1.30 sodium, serum 141 mmol/L 494-523 4738/11/11 potassium, serum 4.2 mmol/L 3.5-5.2 chloride, serum 106 mmol/L 98-107 carbon dioxide, venous blood 29.1 mmol/L 21.0-32.0 blood glucose 95 mg/dL 65-110 calcium, serum 8.6 mg/dL 8.5-10.1 urea nitrogen, blood 23 mg/dL 7-18 creatinine, serum 0.83 mg/dL 0.55-1.30 Lab Report: Lipid Panel, Thyroid Stimulating Hormone (L) - Chemistry cholesterol, serum 177 mg/dL 513-079 9886/10/31 triglyceride, serum, fasting 64 mg/dL 30-200 HDL cholesterol, serum 77 mg/dL 32-96 LDL cholesterol, serum 87 mg/dL 0-130 TSH 2.13 m[iU]/mL 0.36-3.74 Lab Report: VITAMIN D, 25-HYDROXY/18655 - Chemistry vitamin D 25-hydroxy, serum 25 ng/mL 30-100 Encounters Code Encounter Date Provider Facility CPT-11880 Level 3 Est. Patient 16:07:34 CDT Marta Viramontes [facility] CPT-02227 Level 3 Est. Patient 15:39:01 CDT Marta iVramontes [facility] CPT-03543 Level 4 Est. Patient 17:31:07 CDT Marta Viramontes [facility] CPT-99592 Level 3 Est. Patient 05:11:40 CDT Rikki GRANADOS [facility] CPT-07573 Level 2 Est. Patient 14:30:43 [employer]AKING [employer] Marta Viramontes [facility] CPT-70708 Level 4 Est. Patient 09:14:36 [employer]AKING [employer]ER Rikki GRANADOS [facility] CPT-43648 Level 2 Est. Patient 09:07:32 CDT Marta Viramontes [facility] CPT-14069 Level 4 Est. Patient 11:55:00 CDT Rikki GRANADOS [facility] CPT-10756 Level 3 Est. Patient 13:25:16 CDT Jennifer Chun MD [facility] CPT-78679 Level 3 Est. Patient 17:31:22 CDT Solomon Alamo MD [facility] CPT-00002 Level 3 Est. Patient 08:02:14 CDT Solomon Alamo MD [facility] CPT-49631 Level 3 Est. Patient 17:23:53 CDT Rikki GRANADOS [facility] CPT-56098 Level 3 Est. Patient 11:22:41 CDT Darryn Hearn [facility] Procedures Code Procedure Name Date Entry Date Standard Description CPT-31634 Venipuncture Draw Fee 12:43:48 [employer] CPT-35153 BMP - LAB USE ONLY 10:32:33 [employer] CPT-44277 Venipuncture Draw Fee 10:32:33 [employer]AKING [employer] CPT-22938 Magnesium - LAB USE ONLY 09:54:30 CDT CPT-76200 TSH - LAB USE ONLY 09:54:30 CDT CPT-93292 Lipid - LAB USE ONLY 09:54:30 CDT CPT-47139 Venipuncture Draw Fee 09:54:29 CDT CPT-42935 Venipuncture Draw Fee 18:27:04 CDT CPT-14739 Chest 2V Frontal and Lat 10:57:00 [employer] CPT-05445 Venipuncture Draw Fee 10:56:59 [employer]AKING [employer] CPT-76122 Venipuncture Draw Fee 09:22:28 [employer]AKING [employer] CPT-54756 Chest 2V Frontal and Lat 09:22:27 [employer]AKING [employer]ER CPT-I/D I/D Abscess 09:43:13 CDT CPT-69395 Venipuncture Draw Fee 08:16:46 [employer]AKING [employer]IT [employer] CPT-41019 Venipuncture Draw Fee 08:18:55 [employer]AKING [employer]IT [employer]ER CPT-93116 Venipuncture Draw Fee 08:31:18 [employer]AKING [employer]IT AS[employer]ER CPT-09102 Venipuncture Draw Fee 11:42:52 [employer]AKING [employer]IT [employer]ER CPT-61063 Venipuncture Draw Fee 13:26:37 [employer]AKING [employer]IT [employer]ER CPT-60375 Venipuncture Draw Fee 09:23:38 [employer]AKING [employer]IT [employer]ER CPT-000 Give Appropriate Tetanus Booster 10:23:50 CDT CPT-45527 Bone Density 08:28:45 CDT CPT-88216 Bone Density 11:35:15 CDT CPT-PV Prev. Care Visit 12:19:00 CDT CPT-72725 Venipuncture Draw Fee 15:02:58 CDT
--- OUTSIDE RECORDS SUMMARY | 2018-01-19 08:09 | XMS REPORT | Clinical Summary ---
Author Author Admin, E Organization [facility] Address Unknown Phone Unavailable Allergies, Adverse Reactions, Alerts Allergy Name Reaction Description Start Date Severity Status Provider SULFA facial swelling Critical Active Jocelyne Naff GETTERER Conditions or Problems Problem Name Problem Code Onset Date Status Entry Date Provider Comment Standard Description Annotate G E R D 530.81 Active Jocelyne Naff GETTERER Esophageal reflux FH COLON CANCER V16.0 Active Jocelyne Naff GETTERER Family history of malignant neoplasm of gastrointestinal [...] MCG ORAL TABS Take one daily BIOTIN 30380053052 Active Rikki Harms PA Active VITAMIN C 500 MG ORAL CAPS Take one daily ASCORBIC ACID 33419144968 Active Rikki Harms PA Active BENZONATATE 200 MG ORAL CAPS One capsule tid. BENZONATATE 85506362896 No Longer Active Rikki Harms PA Active FLONASE ALLERGY RELIEF 50 MCG/ACT NASAL SUSP spray twice in each nostril one time daily FLUTICASONE PROPIONATE 69598906402 No Longer Active Rikki Harms PA Active TUSSIONEX PENNKINETIC ER 10-8 MG/5ML LQCR 5ml po q12hr PRN Cough HYDROCOD POLST-CHLORPHEN POLST 31760312375 No Longer Active Rikki Harms PA Active NIACIN ER 500 MG ORAL CR-TABS Take one twice daily NIACIN 04850795781 Active Rikki Harms PA Active ALBUTEROL SULFATE 0.083 % JOSEE REED one vial per nebulizer every 4-6 hours as needed ALBUTEROL SULFATE 69000312522 No Longer Active Rikki Harms PA Active CEPHALEXIN 500 MG ORAL CAPS Take one four times a day CEPHALEXIN 45839275670 Active Rikki Harms PA Active MEDROL (CAROLYN) 4 MG TABS 6 tabs on day 1, 5 tabs on day 2, 4 tabs on day 3, 3 tabs on day 4, 2 tabs on day 5, 1 tab on day 6 METHYLPREDNISOLONE 81053293409 No Longer Active Rikki Harms PA Active LEVAQUIN 750 MG TABS 1 po qd x 7 days LEVOFLOXACIN 90752221807 No Longer Active Rikki Harms PA Active LEVAQUIN 500 MG ORAL TABS Take one tablet daily LEVOFLOXACIN 30485646041 No Longer Active Rikki Harms PA Active PROAIR HFA 108 (90 BASE) MCG/ACT AERS 2 puffs four times a day as needed 2014 ALBUTEROL SULFATE 26912364715 Active Marta Yokum WOOD DRILL OPERATOR Active LEVAQUIN 500 MG TAB 1 tablet by mouth daily LEVOFLOXACIN 55893367932 No Longer Active Marta Yokum WOOD DRILL OPERATOR Active CHERATUSSIN AC 100-10 MG/5ML SYRP 1 tsp by mouth every 4 hours as needed for cough GUAIFENESIN-CODEINE 99560711810 No Longer Active Rikki Harms PA Active MUPIROCIN 2 % EXT OINT Use in each nostril in am and pm MUPIROCIN 38681740881 No Longer Active Rikki Harms PA Active DOXYCYCLINE HYCLATE 100 MG ORAL CAPS Take one bid DOXYCYCLINE HYCLATE 38161848382 No Longer Active Rikki Harms PA Active CLARITIN 10 MG TABS 1prn LORATADINE 83434011110 No Longer Active Jocelyne Naff GETTERER Active ASPIRIN 81 MG TABS 1qd ASPIRIN 76814572606 No Longer Active Jocelyne Naff GETTERER Active DOXYCYCLINE HYCLATE 100 MG CAP 1 cap by mouth twice daily DOXYCYCLINE HYCLATE 93213966483 No Longer Active Rikki Harms PA Active VITAMIN D3 40935 UNIT CAPS 1 pill by mouth weekly, for vitamin D deficiency CHOLECALCIFEROL 65596297568 No Longer Active Jennifer Chun MD PhD Active ANASTROZOLE 1 MG ORAL TABS Take one by mouth daily ANASTROZOLE 26363526761 Active Jennifer Chun MD PhD Active ZITHROMAX 250 MG TAB 2 po today, then 1 po q days 2-5 AZITHROMYCIN 42204956176 No Longer Active Rikki Harms PA Active MECLIZINE HCL 25 MG TABS 1 prn MECLIZINE HCL 35178624432 No Longer Active Solomon Alamo MD Active CHERATUSSIN AC SYRP prn as directed GUAIFENESIN- CODEINE SYRP 75906518939 No Longer Active Rikki Harms PA Active MULTIVITAMINS TABS 1qd MULTIPLE VITAMIN 40744600120 No Longer Active Rikki Harms PA Active OMEPRAZOLE 20 MG CPDR 1 PO Q D OMEPRAZOLE 75315542686 Active Rikki Harms PA Active ZITHROMAX Z-CAROLYN 250 MG TABS 2x1day,6i0awkz AZITHROMYCIN 41188749972 No Longer Active Jocelynederic Lovell GETTERER Active MULTIVITAMINS TABS 1qd MULTIVITAMINS TABS MULTIPLE VITAMIN Inactive CHERATUSSIN AC SYRP prn as directed CHERATUSSIN AC SYRP GUAIFENESIN-CODEINE SYRP Inactive MECLIZINE HCL 25 MG TABS 1 prn MECLIZINE HCL 25 MG TABS 732887 MECLIZINE HCL Inactive ASPIRIN 81 MG TABS 1qd ASPIRIN 81 MG TABS 957184 ASPIRIN Inactive CLARITIN 10 MG TABS 1prn CLARITIN 10 MG TABS 984659 LORATADINE Inactive DOXYCYCLINE HYCLATE 100 MG ORAL CAPS Take one bid DOXYCYCLINE HYCLATE 100 MG ORAL CAPS 0956027 DOXYCYCLINE HYCLATE Inactive MUPIROCIN 2 % EXT OINT Use in each nostril in am and pm MUPIROCIN 2 % EXT OINT 989312 MUPIROCIN Inactive CHERATUSSIN AC 100-10 MG/5ML SYRP 1 tsp by mouth every 4 hours as needed for cough CHERATUSSIN AC 100-10 MG/5ML SYRP 577201 GUAIFENESIN-CODEINE Inactive LEVAQUIN 500 MG TAB 1 tablet by mouth daily LEVAQUIN 500 MG TAB 801748 LEVOFLOXACIN Inactive LEVAQUIN 500 MG ORAL TABS Take one tablet daily LEVAQUIN 500 MG ORAL TABS 183919 LEVOFLOXACIN Inactive LEVAQUIN 750 MG TABS 1 po qd x 7 days LEVAQUIN 750 MG TABS 022426 LEVOFLOXACIN Inactive ALBUTEROL SULFATE 0.083 % NEBU SOLN one vial per nebulizer every 4-6 hours as needed ALBUTEROL SULFATE 0.083 % NEBU SOLN 881419 ALBUTEROL SULFATE Inactive TUSSIONEX PENNKINETIC ER 10-8 MG/5ML LQCR 5ml po q12hr PRN Cough TUSSIONEX PENNKINETIC ER 10-8 MG/5ML LQCR HYDROCOD POLST- CHLORPHEN POLST Inactive FLONASE ALLERGY RELIEF 50 MCG/ACT NASAL SUSP spray twice in each nostril one time daily FLONASE ALLERGY RELIEF 50 MCG/ACT NASAL SUSP 317448 FLUTICASONE PROPIONATE Inactive BENZONATATE 200 MG ORAL CAPS One capsule tid. BENZONATATE 200 MG ORAL CAPS 243476 BENZONATATE Inactive ZITHROMAX Z-CAROLYN 250 MG TABS 2x1day,9b6dvcl ZITHROMAX Z-CAROLYN 250 MG TABS 4180066 AZITHROMYCIN Inactive ZITHROMAX 250 MG TAB 2 po today, then 1 po q days 2-5 ZITHROMAX 250 MG TAB 8337076 AZITHROMYCIN Inactive VITAMIN D3 96996 UNIT CAPS 1 pill by mouth weekly, for vitamin D deficiency VITAMIN D3 44601 UNIT CAPS CHOLECALCIFEROL Inactive DOXYCYCLINE HYCLATE 100 MG CAP 1 cap by mouth twice daily DOXYCYCLINE HYCLATE 100 MG CAP 6523942 DOXYCYCLINE HYCLATE Inactive MEDROL (CAROLYN) 4 MG TABS 6 tabs on day 1, 5 tabs on day 2, 4 tabs on day 3, 3 tabs on day 4, 2 tabs on day 5, 1 tab on day 6 MEDROL ( CAROLYN) 4 MG TABS 124436 METHYLPREDNISOLONE Inactive Vital Signs Date Name Value [...] % 11.6-14.8 platelet count 143 10^3/MM^3 10*3/mm3 948-804 4706/11/25 leukocyte count, blood 2.1 10^3/MM^3 10*3/mm3 4.6-10.2 [...] % 11.6-14.8 platelet count 139 10^3/MM^3 10*3/mm3 610-776 3304/12/02 leukocyte count, blood 6.7 10^3/MM^3 10*3/mm3 4.6-10.2 [...] % 11.6-14.8 platelet count 258 10^3/MM^3 10*3/mm3 800-691 0623/12/09 leukocyte count, blood 5.3 10^3/MM^3 10*3/mm3 4.6-10.2 [...] % 11.6-14.8 platelet count 240 10^3/MM^3 10*3/mm3 170-284 9824/12/16 leukocyte count, blood 3.2 10^3/MM^3 10*3/mm3 4.6-10.2 [...] % 11.6-14.8 platelet count 158 10^3/MM^3 10*3/mm3 620-443 8720/12/18 leukocyte count, blood 8.8 10^3/MM^3 10*3/mm3 4.6-10.2 [...] % 11.6-14.8 platelet count 207 10^3/MM^3 10*3/mm3 116-354 3503/12/23 leukocyte count, blood 6.2 10^3/MM^3 10*3/mm3 4.6-10.2 [...] % 11.6-14.8 platelet count 183 10^3/MM^3 10*3/mm3 272-290 7919/11/11 leukocyte count, blood 2.0 10^3/MM^3 10*3/mm3 4.6-10.2 [...] % 11.6-14.8 platelet count 203 10^3/MM^3 10*3/mm3 939-526 5222/12/30 leukocyte count, blood 5.2 10^3/MM^3 10*3/mm3 4.6-10.2 [...] % 11.6-14.8 platelet count 200 10^3/MM^3 10*3/mm3 998-126 0821/03/02 leukocyte count, blood 5.1 10^3/MM^3 10*3/mm3 4.6-10.2 [...] Panel - Chemistry sodium, serum 142 mmol/L 688-888 4774/02/04 carbon dioxide, venous blood 24.9 mmol/L 21.0-32.0 potassium, serum 4.1 mmol/L 3.5-5.2 chloride, serum 106 mmol/L 98-107 blood glucose 103 mg/dL 65-110 urea nitrogen, blood 25 mg/dL 7-18 creatinine, serum 0.83 mg/dL 0.55-1.30 alanine aminotransferase (SGPT), serum 38 U/L 12-78 aspartate aminotransferase (SGOT), serum 26 U/L 15-37 calcium, serum 8.7 mg/dL 8.5-10.1 bilirubin, serum, total 0.30 mg/dL 0.00-1.00 sodium, serum 140 mmol/L 228-621 6889/01/13 carbon dioxide, venous blood 26.4 mmol/L 21.0-32.0 potassium, serum 4.2 mmol/L 3.5-5.2 chloride, serum 104 mmol/L 98-107 blood glucose 101 mg/dL 65-110 urea nitrogen, blood 18 mg/dL 7-18 creatinine, serum 0.80 mg/dL 0.55-1.30 alanine aminotransferase (SGPT), serum 28 U/L -78 aspartate aminotransferase (SGOT), serum 24 U/L 15-37 calcium, serum 8.7 mg/dL 8.5-10.1 bilirubin, serum, total 0.50 mg/dL 0.00-1.00 sodium, serum 138 mmol/L 035-606 5267/11/04 carbon dioxide, venous blood 27.7 mmol/L 21.0-32.0 potassium, serum 4.9 mmol/L 3.5-5.2 chloride, serum 104 mmol/L 98-107 blood glucose 92 mg/dL 65-110 urea nitrogen, blood 24 mg/dL 7-18 creatinine, serum 0.95 mg/dL 0.55-1.30 alanine aminotransferase (SGPT), serum 34 U/L -78 aspartate aminotransferase (SGOT), serum 23 U/L 15-37 calcium, serum 8.9 mg/dL 8.5-10.1 bilirubin, serum, total 0.70 mg/dL 0.00-1.00 sodium, serum 140 mmol/L 559-910 1686/01/06 carbon dioxide, venous blood 27.2 mmol/L 21.0-32.0 [...] % 11.6-14.8 platelet count 289 10^3/MM^3 10*3/mm3 231-995 4600/01/06 leukocyte count, blood 4.1 10^3/MM^3 10*3/mm3 4.6-10.2 [...] % 11.6-14.8 platelet count 297 10^3/MM^3 10*3/mm3 736-379 9847/02/04 leukocyte count, blood 4.2 10^3/MM^3 10*3/mm3 4.6-10.2 [...] % 11.6-14.8 platelet count 271 10^3/MM^3 10*3/mm3 404-807 8504/11/04 leukocyte count, blood 3.8 10^3/MM^3 10*3/mm3 4.6-10.2 [...] Panel - Chemistry sodium, serum 140 mmol/L 664-621 0207/07/13 potassium, serum 4.5 mmol/L 3.5-5.2 chloride, serum 106 mmol/L 98-107 carbon dioxide, venous blood 27.7 mmol/L 21.0-32.0 blood glucose 105 mg/dL 65-110 urea nitrogen, blood 14 mg/dL 7-18 creatinine, serum 0.90 mg/dL 0.60-1.30 alanine aminotransferase (SGPT), serum 29 U/L 12-78 aspartate aminotransferase (SGOT), serum 22 U/L 15-37 calcium, serum 9.4 mg/dL 8.5-10.1 bilirubin, serum, total 0.70 mg/dL 0.00-1.00 cholesterol, serum 160 mg/dL 469-892 9301/07/13 triglyceride, serum, fasting 63 mg/dL 30-200 HDL [...] Panel - Chemistry sodium, serum 141 mmol/L 765-591 0565/11/18 carbon dioxide, venous blood 26.2 mmol/L 21.0-32.0 potassium, serum 4.4 mmol/L 3.5-5.2 chloride, serum 106 mmol/L 98-107 blood glucose 102 mg/dL 65-110 urea nitrogen, blood 24 mg/dL 7-18 creatinine, serum 0.77 mg/dL 0.55-1.30 alanine aminotransferase (SGPT), serum 30 U/L 12-78 aspartate aminotransferase (SGOT), serum 15 U/L 15-37 calcium, serum 8.3 mg/dL 8.5-10.1 bilirubin, serum, total 0.30 mg/dL 0.00-1.00 sodium, serum 139 mmol/L 221-524 8564/11/25 carbon dioxide, venous blood 27.9 mmol/L 21.0-32.0 potassium, serum 4.7 mmol/L 3.5-5.2 chloride, serum 105 mmol/L 98-107 blood glucose 94 mg/dL 65-110 urea nitrogen, blood 21 mg/dL 7-18 creatinine, serum 0.79 mg/dL 0.55-1.30 alanine aminotransferase (SGPT), serum 40 U/L aspartate aminotransferase (SGOT), serum 22 U/L - calcium, serum 8.5 mg/dL 8.5-10.1 bilirubin, serum, total 0.80 mg/dL 0.00-1.00 sodium, serum 142 mmol/L 548-021 4698/12/09 carbon dioxide, venous blood 28.5 mmol/L 21.0-32.0 potassium, serum 5.0 mmol/L 3.5-5.2 chloride, serum 109 mmol/L 98-107 blood glucose 91 mg/dL 65-110 urea nitrogen, blood 27 mg/dL 7-18 creatinine, serum 0.88 mg/dL 0.55-1.30 alanine aminotransferase (SGPT), serum 31 U/L aspartate aminotransferase (SGOT), serum 18 U/L - calcium, serum 8.9 mg/dL 8.5-10.1 bilirubin, serum, total 0.40 mg/dL 0.00-1.00 sodium, serum 140 mmol/L 602-637 6985/12/16 carbon dioxide, venous blood 25.4 mmol/L 21.0-32.0 potassium, serum 4.1 mmol/L 3.5-5.2 chloride, serum 104 mmol/L 98-107 blood glucose 110 mg/dL 65-110 urea nitrogen, blood 24 mg/dL 7-18 creatinine, serum 0.87 mg/dL 0.55-1.30 alanine aminotransferase (SGPT), serum 35 U/L -78 aspartate aminotransferase (SGOT), serum 21 U/L 15-37 calcium, serum 8.4 mg/dL 8.5-10.1 bilirubin, serum, total 0.50 mg/dL 0.00-1.00 sodium, serum 141 mmol/L 576-404 8573/12/02 carbon dioxide, venous blood 25.9 mmol/L 21.0-32.0 potassium, serum 4.7 mmol/L 3.5-5.2 chloride, serum 106 mmol/L 98-107 blood glucose 78 mg/dL 65-110 urea nitrogen, blood 24 mg/dL 7-18 creatinine, serum 0.75 mg/dL 0.55-1.30 alanine aminotransferase (SGPT), serum 31 U/L 78 aspartate aminotransferase (SGOT), serum 20 U/L 15-37 calcium, serum 8.7 mg/dL 8.5-10.1 bilirubin, serum, total 0.30 mg/dL 0.00-1.00 sodium, serum 139 mmol/L 626-922 4686/12/30 carbon dioxide, venous blood 28.2 mmol/L 21.0-32.0 potassium, serum 3.9 mmol/L 3.5-5.2 chloride, serum 105 mmol/L 98-107 blood glucose 91 mg/dL 65-110 urea nitrogen, blood 17 mg/dL 7-18 creatinine, serum 0.81 mg/dL 0.55-1.30 alanine aminotransferase (SGPT), serum 29 U/L aspartate aminotransferase (SGOT), serum 22 U/L 15-37 calcium, serum 8.8 mg/dL 8.5-10.1 bilirubin, serum, total 0.50 mg/dL 0.00-1.00 sodium, serum 141 mmol/L 034-261 1138/11/11 carbon dioxide, venous blood 26.8 mmol/L 21.0-32.0 potassium, serum 4.2 mmol/L 3.5-5.2 chloride, serum 106 mmol/L 98-107 blood glucose 95 mg/dL 65-110 urea nitrogen, blood 18 mg/dL 7-18 creatinine, serum 0.70 mg/dL 0.55-1.30 alanine aminotransferase (SGPT), serum 33 U/L aspartate aminotransferase (SGOT), serum 22 U/L - calcium, serum 8.5 mg/dL 8.5-10.1 bilirubin, serum, total 0.30 mg/dL 0.00-1.00 sodium, serum 143 mmol/L 024-790 4651/12/23 carbon dioxide, venous blood 24.6 mmol/L 21.0-32.0 potassium, serum 4.1 mmol/L 3.5-5.2 chloride, serum 107 mmol/L 98-107 blood glucose 98 mg/dL 65-110 urea nitrogen, blood 22 mg/dL 7-18 creatinine, serum 0.77 mg/dL 0.55-1.30 alanine aminotransferase (SGPT), serum 28 U/L aspartate aminotransferase (SGOT), serum 20 U/L 15-37 calcium, serum 8.6 mg/dL 8.5-10.1 bilirubin, serum, total 0.30 mg/dL 0.00-1.00 Lab Report: VITAMIN D, 25-HYDROXY/28836 - Chemistry vitamin D 25-hydroxy, serum 24 ng/mL 30-100 Encounters Code Encounter Date Provider Facility CPT-92583 Level 3 Est. Patient 05:11:40 CDT Rikki GRANADOS [facility] CPT-66142 Level 2 Est. Patient 14:30:43 FIELD SPEC Marta Viramontes [facility] CPT-41854 Level 4 Est. Patient 09:14:36 FIELD SPEC Rikki GRANADOS [facility] CPT-62510 Level 2 Est. Patient 09:07:32 CDT Marta Viramontes [facility] CPT-45504 Level 4 Est. Patient 11:55:00 CDT Rikki Stearns [facility] CPT-82005 Level 3 Est. Patient 13:25:16 CDT Jennifer Chun MD PhD [facility] CPT-24654 Level 3 Est. Patient 17:31:22 CDT Solomon Alamo MD [facility] CPT-22997 Level 3 Est. Patient 08:02:14 CDT Solomon Alamo MD [facility] CPT-75359 Level 3 Est. Patient 17:23:53 CDT Rikki GRANADOS [facility] CPT-51916 Level 3 Est. Patient 11:22:41 CDT Darryn Hearn [facility] Procedures Code Procedure Name Date Entry Date Standard Description CPT-04180 Chest 2V Frontal and Lat 10:57:00 FIELD SPEC CPT-97631 Venipuncture Draw Fee 10:56:59 FIELD SPEC CPT-97824 Venipuncture Draw Fee 09:22:28 FIELD SPEC CPT-38530 Chest 2V Frontal and Lat 09:22:27 FIELD SPEC CPT-I/D I/D Abscess 09:43:13 CDT CPT-83886 Venipuncture Draw Fee 08:16:46 FIELD SPEC CPT-42215 Venipuncture Draw Fee 08:18:55 FIELD SPEC CPT-43759 Venipuncture Draw Fee 08:31:18 FIELD SPEC CPT-73556 Venipuncture Draw Fee 11:42:52 FIELD SPEC CPT-15782 Venipuncture Draw Fee 13:26:37 FIELD SPEC CPT-13859 Venipuncture Draw Fee 09:23:38 FIELD SPEC CPT-000 Give Appropriate Tetanus Booster 10:23:50 CDT CPT-55272 Bone Density 08:28:45 CDT CPT-90813 Bone Density 11:35:15 CDT CPT-PV Prev. Care Visit 12:19:00 CDT CPT-51346 Venipuncture Draw Fee 15:02:58 CDT
--- OUTSIDE RECORDS SUMMARY | 2018-01-19 08:12 | XMS REPORT | Clinical Summary ---
Author Author Admin, E Organization [facility] Address Unknown Phone Unavailable Allergies, Adverse Reactions, Alerts Allergy Name Reaction Description Start Date Severity Status Provider SULFA facial swelling Critical Active Jocelyne Naff LEAN ENGINEER Conditions or Problems Problem Name Problem Code Onset Date Status Entry Date Provider Comment Standard Description Annotate G E R D 530.81 Active Jocelyne Naff LEAN ENGINEER Esophageal reflux FH COLON CANCER V16.0 Active Jocelyne Naff LEAN ENGINEER Family history of malignant neoplasm of [...] unspecified diseases of the oral soft tissues Breast microcalcification ICD-793.81 Inactive Jennifer Chun MD PhD Abnormal Mammogram ICD-793.80 Inactive Jennifer Chun MD PhD Medication List Medication Instructions Start Date Stop Date Generic Name NDC Status Provider Patient Instruction DOXYCYCLINE HYCLATE 100 MG CAP 1 cap by mouth twice daily DOXYCYCLINE HYCLATE 34371354540 Active Rikki Daryn GRANADOS Active VITAMIN D3 62339 UNIT CAPS 1 pill by mouth weekly, for vitamin D deficiency CHOLECALCIFEROL 91009688483 Active Jennifer Chun MD PhD Active ANASTROZOLE 1 MG ORAL TABS Take one by mouth daily ANASTROZOLE 06040858829 Active Jennifer Chun MD PhD Active ZITHROMAX 250 MG TAB 2 po today, then 1 po q days 2-5 AZITHROMYCIN 20162700906 No Longer Active Rikki Daryn GRANADOS Active MECLIZINE HCL 25 MG TABS 1 prn MECLIZINE HCL 95701102926 No Longer Active Solomon Alamo MD Active CHERATUSSIN AC SYRP prn as directed GUAIFENESIN- CODEINE SYRP 49938485036 No Longer Active Rikki GRANADOS Active MULTIVITAMINS TABS 1qd MULTIPLE VITAMIN 93869484571 No Longer Active Rikki Daryn PA Active CLARITIN 10 MG TABS 1prn LORATADINE 71007072545 Active Jocelyne Naff LEAN ENGINEER Active ASPIRIN 81 MG TABS 1qd ASPIRIN 39083049245 Active Jocelyne Naff LEAN ENGINEER Active OMEPRAZOLE 20 MG CPDR 1 PO Q D OMEPRAZOLE 24151559472 Active Rikki Daryn PA Active ZITHROMAX Z-CAROLYN 250 MG TABS 2x1day,5e6sgrh AZITHROMYCIN 49740832033 No Longer Active Jocelyne Naff LEAN ENGINEER Active MULTIVITAMINS TABS 1qd MULTIVITAMINS TABS MULTIPLE VITAMIN Inactive CHERATUSSIN AC SYRP prn as directed CHERATUSSIN AC SYRP GUAIFENESIN-CODEINE SYRP Inactive MECLIZINE HCL 25 MG TABS 1 prn MECLIZINE HCL 25 MG TABS 162945 MECLIZINE HCL Inactive ZITHROMAX Z-CAROLYN 250 MG TABS 2x1day,9i2cand ZITHROMAX Z-CAROLYN 250 MG TABS 8575162 AZITHROMYCIN Inactive ZITHROMAX 250 MG TAB 2 po today, then 1 po q days 2-5 ZITHROMAX 250 MG TAB 9105392 AZITHROMYCIN Inactive Vital Signs Date Name Value [...] % 11.6-14.8 platelet count 360 10^3/MM^3 10*3/mm3 763-147 6931/12/31 leukocyte count, blood 5.3 10^3/MM^3 10*3/mm3 4.6-10.2 [...] % 11.6-14.8 platelet count 222 10^3/MM^3 10*3/mm3 325-131 7345/01/07 leukocyte count, blood 11.7 10^3/MM^3 10*3/mm3 4.6-10.2 [...] % 11.6-14.8 platelet count 191 10^3/MM^3 10*3/mm3 552-146 9733/12/10 hemoglobin, blood 14.8 g/dL 12.0-16.0 hematocrit, blood 44.3 % 36.0-46.0 mean corpuscular volume, RBC 90 fL 80-97 mean corpuscular hemoglobin, RBC 30.1 pg 27.0-31.2 mean corpuscular hemoglobin concentration, RBC 33.5 G/DL % 31.8- 35.4 red blood cell distribution width 14.5 % 11.6-14.8 platelet count 131 10^3/MM^3 10*3/mm3 449-107 8721/12/12 leukocyte count, blood 28.6 10^3/MM^3 10*3/mm3 4.6-10.2 [...] % 11.6-14.8 platelet count 237 10^3/MM^3 10*3/mm3 450-652 7674/12/10 erythrocyte (RBC) count 4.93 10^6/MM^3 10*6/mm3 4.04-5.48 [...] % 11.6-14.8 platelet count 195 10^3/MM^3 10*3/mm3 482-865 1146/01/28 leukocyte count, blood 11.9 10^3/MM^3 10*3/mm3 4.6-10.2 [...] % 11.6-14.8 platelet count 278 10^3/MM^3 10*3/mm3 288-905 9001/02/04 leukocyte count, blood 8.5 10^3/MM^3 10*3/mm3 4.6-10.2 [...] % 11.6-14.8 platelet count 326 10^3/MM^3 10*3/mm3 128-196 9185/02/10 leukocyte count, blood 2.3 10^3/MM^3 10*3/mm3 4.6-10.2 [...] % 11.6-14.8 platelet count 240 10^3/MM^3 10*3/mm3 074-625 3654/02/17 hemoglobin, blood 11.6 g/dL 12.0-16.0 hematocrit, blood 35.2 % 36.0-46.0 mean corpuscular volume, RBC 91 fL 80-97 mean corpuscular hemoglobin, RBC 30.0 pg 27.0-31.2 mean corpuscular hemoglobin concentration, RBC 32.9 G/DL % 31.8- 35.4 red blood cell distribution width 18.8 % 11.6-14.8 platelet count 308 10^3/MM^3 10*3/mm3 156-999 4074/02/25 leukocyte count, blood 6.6 10^3/MM^3 10*3/mm3 4.6-10.2 [...] % 11.6-14.8 platelet count 433 10^3/MM^3 10*3/mm3 064-920 1530/02/17 erythrocyte (RBC) count 3.86 10^6/MM^3 10*6/mm3 4.04-5.48 lymphocytes as percent of blood leukocytes 46.9 % 20.5-51.1 monocytes as percent of blood leukocytes 31.9 % 1.7-9.3 neutrophils as percent of blood leukocytes 20.2 % 42.2-75.2 leukocyte count, blood 3.4 10^3/MM^3 10*3/mm3 4.6-10.2 Lab Report: CBC W/DIFF, [...] 0.20 mg/dL 0.00-1.00 sodium, serum 141 mmol/L 718-514 0177/01/14 potassium, serum 4.9 mmol/L 3.5-5.2 chloride, serum 107 mmol/L 98-107 carbon dioxide, venous blood 28.9 mmol/L 21.0-32.0 blood glucose 100 mg/dL 65-110 urea nitrogen, blood 19 mg/dL 7-18 creatinine, serum 0.90 mg/dL 0.60-1.30 alanine aminotransferase (SGPT), serum 28 U/L 12-78 aspartate aminotransferase (SGOT), serum 24 U/L 15-37 calcium, serum 8.2 mg/dL 8.5-10.1 bilirubin, serum, total 0.40 mg/dL 0.00-1.00 sodium, serum 144 mmol/L 270-409 2774/12/16 potassium, serum 4.5 mmol/L 3.5-5.2 Lab Report: [...] % 11.6-14.8 platelet count 239 10^3/MM^3 10*3/mm3 823-311 9895/01/14 leukocyte count, blood 6.7 10^3/MM^3 10*3/mm3 4.6-10.2 [...] Comp. Metabolic Panel, Lipid Panel - Chemistry urea nitrogen, blood 14 mg/dL 7-18 creatinine, serum 0.90 mg/dL 0.60-1.30 alanine aminotransferase (SGPT), serum 29 U/L 12-78 aspartate aminotransferase (SGOT), serum 22 U/L 15-37 calcium, serum 9.4 mg/dL 8.5-10.1 bilirubin, serum, total 0.70 mg/dL 0.00-1.00 cholesterol, serum 160 mg/dL 902-529 0084/07/13 triglyceride, serum, fasting 63 mg/dL 30-200 HDL cholesterol, serum 68 mg/dL 32-96 LDL cholesterol, serum 79 mg/dL 0-130 sodium, serum 140 mmol/L 023-087 3218/07/13 potassium, serum 4.5 mmol/L 3.5-5.2 chloride, serum 106 mmol/L 98-107 carbon dioxide, venous blood 27.7 mmol/L 21.0-32.0 blood glucose 105 mg/dL 65-110 Lab Report: CBC, Comp. Metabolic Panel, Lipid [...] Panel - Chemistry sodium, serum 141 mmol/L 293-190 4693/02/10 potassium, serum 5.2 mmol/L 3.5-5.2 chloride, serum 106 mmol/L 98-107 carbon dioxide, venous blood 27.8 mmol/L 21.0-32.0 blood glucose 111 mg/dL 65-110 urea nitrogen, blood 18 mg/dL 7-18 creatinine, serum 0.90 mg/dL 0.60-1.30 alanine aminotransferase (SGPT), serum 29 U/L 12-78 aspartate aminotransferase (SGOT), serum 21 U/L 15-37 calcium, serum 8.3 mg/dL 8.5-10.1 bilirubin, serum, total 0.40 mg/dL 0.00-1.00 Lab Report: VITAMIN D, 25-HYDROXY/86210 - Chemistry vitamin D 25-hydroxy, serum 24 ng/mL 30-100 Encounters Code Encounter Date Provider Facility CPT-64310 Level 3 Est. Patient 13:25:16 CDT Jennifer Chun MD PhD [facility] CPT-97274 Level 3 Est. Patient 17:31:22 CDT Solomon Alamo MD [facility] CPT-18093 Level 3 Est. Patient 08:02:14 CDT Solomon Alamo MD [facility] CPT-03343 Level 3 Est. Patient 17:23:[address] [facility] CPT-72406 Level 3 Est. Patient 11:22:[address] [facility] Procedures Code Procedure Name Date Entry Date Standard Description CPT-I/D I/D Abscess 09:43:13 CDT CPT-15243 Venipuncture Draw Fee 08:16:46 [employer]OB[employer] ATTENDANT CPT-23074 Venipuncture Draw Fee 08:18:55 LOBBY ATTENDANT CPT-57202 Venipuncture Draw Fee 08:31:18 LOBBY ATTENDANT CPT-04874 Venipuncture Draw Fee 11:42:52 LOBBY ATTENDANT CPT-45233 Venipuncture Draw Fee 13:26:37 LOBBY ATTENDANT CPT-34644 Venipuncture Draw Fee 09:23:38 LOBBY ATTENDANT CPT-000 Give Appropriate Tetanus Booster 10:23:50 CDT CPT-91937 Bone Density 08:28:45 CDT CPT-16070 Bone Density 11:35:15 CDT CPT-PV Prev. Care Visit 12:19:00 CDT CPT-01849 Venipuncture Draw Fee 15:02:58 CDT
--- OUTSIDE RECORDS SUMMARY | 2018-01-19 08:15 | XMS REPORT | Clinical Summary ---
Author Author Admin, E Organization [facility] Address Unknown Phone Unavailable Allergies, Adverse Reactions, Alerts Allergy Name Reaction Description Start Date Severity Status Provider SULFA facial swelling Critical Active Jocelyne Naff [employer] Conditions or Problems Problem Name Problem Code Onset Date Status Entry Date Provider Comment Standard Description Annotate G E R D 530.81 Active Jocelyne Naff [employer] Esophageal reflux FH COLON CANCER V16.0 Active Jocelyne Naff [employer] Family history of malignant neoplasm of [...] unspecified sites Breast microcalcification ICD-793.81 Inactive Jennifer Cuhn MD PhD Abnormal Mammogram ICD-793.80 Inactive Jennifer Chun MD PhD Medication List Medication Instructions Start Date Stop Date Generic Name NDC Status Provider Patient Instruction CLARITIN 10 MG TABS 1prn LORATADINE 32275964975 No Longer Active 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 ASPIRIN 81 MG TABS 1qd ASPIRIN 92032072878 No Longer Active 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 DOXYCYCLINE HYCLATE 100 MG ORAL CAPS Take one bid DOXYCYCLINE HYCLATE 35222223095 Active 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 DOXYCYCLINE HYCLATE 100 MG CAP 1 cap by mouth twice daily DOXYCYCLINE HYCLATE 92674193978 No Longer Active Rikki GRANADOS Active VITAMIN D3 88919 UNIT CAPS 1 pill by mouth weekly, for vitamin D deficiency CHOLECALCIFEROL 28019147172 Active Jennifer Chun MD PhD Active ANASTROZOLE 1 MG ORAL TABS Take one by mouth daily ANASTROZOLE 91314648884 Active Jennifer Chun MD PhD Active ZITHROMAX 250 MG TAB 2 po today, then 1 po q days 2-5 AZITHROMYCIN 19296257300 No Longer Active Rikki GRANADOS Active MECLIZINE HCL 25 MG TABS 1 prn MECLIZINE HCL 13749309763 No Longer Active Solomon Alamo MD Active CHERATUSSIN AC SYRP prn as directed GUAIFENESIN- CODEINE SYRP 99389329695 No Longer Active Rikki Harms PA Active MULTIVITAMINS TABS 1qd MULTIPLE VITAMIN 84254575631 No Longer Active Rikki Harms PA Active OMEPRAZOLE 20 MG CPDR 1 PO Q D OMEPRAZOLE 67392691036 Active Rikki Harms PA Active ZITHROMAX Z-CAROLYN 250 MG TABS 2x1day,[id number] AZITHROMYCIN 08033436462 No Longer Active Jocelyne Liliya [employer]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 MULTIVITAMINS TABS 1qd MULTIVITAMINS TABS MULTIPLE VITAMIN Inactive CHERATUSSIN AC SYRP prn as directed CHERATUSSIN AC SYRP GUAIFENESIN-CODEINE SYRP Inactive MECLIZINE HCL 25 MG TABS 1 prn MECLIZINE HCL 25 MG TABS 677248 MECLIZINE HCL Inactive ASPIRIN 81 MG TABS 1qd ASPIRIN 81 MG TABS 896693 ASPIRIN Inactive CLARITIN 10 MG TABS 1prn CLARITIN 10 MG TABS 698904 LORATADINE Inactive ZITHROMAX Z-CAROLYN 250 MG TABS 2x1day,[id number] ZITHROMAX Z-CAROLYN 250 MG TABS 4271572 AZITHROMYCIN Inactive ZITHROMAX 250 MG TAB 2 po today, then 1 po q days 2-5 ZITHROMAX 250 MG TAB 9358515 AZITHROMYCIN Inactive DOXYCYCLINE HYCLATE 100 MG CAP 1 cap by mouth twice daily DOXYCYCLINE HYCLATE 100 MG CAP 5157436 DOXYCYCLINE HYCLATE Inactive Vital Signs Date Name [...] % 11.6-14.8 platelet count 131 10^3/MM^3 10*3/mm3 551-501 3173/12/12 leukocyte count, blood 28.6 10^3/MM^3 10*3/mm3 4.6-10.2 [...] % 11.6-14.8 platelet count 237 10^3/MM^3 10*3/mm3 717-563 7589/12/23 leukocyte count, blood 6.9 10^3/MM^3 10*3/mm3 4.6-10.2 [...] % 11.6-14.8 platelet count 360 10^3/MM^3 10*3/mm3 909-839 1298/12/31 leukocyte count, blood 5.3 10^3/MM^3 10*3/mm3 4.6-10.2 [...] % 11.6-14.8 platelet count 222 10^3/MM^3 10*3/mm3 076-891 0625/01/07 leukocyte count, blood 11.7 10^3/MM^3 10*3/mm3 4.6-10.2 [...] % 11.6-14.8 platelet count 191 10^3/MM^3 10*3/mm3 922-698 3542/01/20 leukocyte count, blood 9.8 10^3/MM^3 10*3/mm3 4.6-10.2 [...] % 11.6-14.8 platelet count 195 10^3/MM^3 10*3/mm3 708-310 7901/01/28 leukocyte count, blood 11.9 10^3/MM^3 10*3/mm3 4.6-10.2 [...] % 11.6-14.8 platelet count 278 10^3/MM^3 10*3/mm3 288-130 9173/02/04 leukocyte count, blood 8.5 10^3/MM^3 10*3/mm3 4.6-10.2 [...] % 11.6-14.8 platelet count 326 10^3/MM^3 10*3/mm3 197-900 6560/02/10 leukocyte count, blood 2.3 10^3/MM^3 10*3/mm3 4.6-10.2 [...] % 11.6-14.8 platelet count 240 10^3/MM^3 10*3/mm3 262-249 2850/02/17 leukocyte count, blood 3.4 10^3/MM^3 10*3/mm3 4.6-10.2 [...] % 11.6-14.8 platelet count 308 10^3/MM^3 10*3/mm3 623-347 8024/02/25 leukocyte count, blood 6.6 10^3/MM^3 10*3/mm3 4.6-10.2 [...] Panel - Chemistry sodium, serum 144 mmol/L 454-540 2949/12/16 potassium, serum 4.5 mmol/L 3.5-5.2 chloride, serum 107 mmol/L 98-107 carbon dioxide, venous blood 31.4 mmol/L 21.0-32.0 blood glucose 104 mg/dL 65-110 urea nitrogen, blood 17 mg/dL 7-18 creatinine, serum 1.10 mg/dL 0.60-1.30 alanine aminotransferase (SGPT), serum 25 U/L 12-78 aspartate aminotransferase (SGOT), serum 24 U/L 15-37 calcium, serum 8.4 mg/dL 8.5-10.1 bilirubin, serum, total 0.20 mg/dL 0.00-1.00 sodium, serum 141 mmol/L 486-733 9074/01/14 potassium, serum 4.9 mmol/L 3.5-5.2 chloride, serum [...] % 11.6-14.8 platelet count 376 10^3/MM^3 10*3/mm3 418-581 4953/12/16 leukocyte count, blood 19.5 10^3/MM^3 10*3/mm3 4.6-10.2 [...] Panel - Chemistry sodium, serum 140 mmol/L 766-411 0553/07/13 potassium, serum 4.5 mmol/L 3.5-5.2 chloride, serum 106 mmol/L 98-107 carbon dioxide, venous blood 27.7 mmol/L 21.0-32.0 blood glucose 105 mg/dL 65-110 urea nitrogen, blood 14 mg/dL 7-18 creatinine, serum 0.90 mg/dL 0.60-1.30 alanine aminotransferase (SGPT), serum 29 U/L 12-78 aspartate aminotransferase (SGOT), serum 22 U/L 15-37 calcium, serum 9.4 mg/dL 8.5-10.1 bilirubin, serum, total 0.70 mg/dL 0.00-1.00 cholesterol, serum 160 mg/dL 847-583 3717/07/13 triglyceride, serum, fasting 63 mg/dL 30-200 HDL [...] Panel - Chemistry sodium, serum 141 mmol/L 238-038 4144/02/10 potassium, serum 5.2 mmol/L 3.5-5.2 chloride, serum 106 mmol/L 98-107 carbon dioxide, venous blood 27.8 mmol/L 21.0-32.0 blood glucose 111 mg/dL 65-110 urea nitrogen, blood 18 mg/dL 7-18 creatinine, serum 0.90 mg/dL 0.60-1.30 alanine aminotransferase (SGPT), serum 29 U/L 12-78 aspartate aminotransferase (SGOT), serum 21 U/L 15-37 calcium, serum 8.3 mg/dL 8.5-10.1 bilirubin, serum, total 0.40 mg/dL 0.00-1.00 Lab Report: VITAMIN D, 25-HYDROXY/[id number] - Chemistry vitamin D 25-hydroxy, serum 24 ng/mL 30-100 Encounters Code Encounter Date Provider Facility CPT-45600 Level 4 Est. Patient 11:55:00 CDT Rikki Stearns [facility] CPT-25500 Level 3 Est. Patient 13:25:16 CDT Jennifer Chun MD [facility] CPT-61715 Level 3 Est. Patient 17:31:22 CDT Solomon Alamo MD [facility] CPT-59026 Level 3 Est. Patient 08:02:14 CDT Solomon Alamo MD [facility] CPT-76385 Level 3 Est. Patient 17:23:53 CDT Rikki Stearns [facility] CPT-16139 Level 3 Est. Patient 11:22:41 CDT Darryn Hearn [facility] Procedures Code Procedure Name Date Entry Date Standard Description CPT-I/D I/D Abscess 09:43:13 CDT CPT-42585 Venipuncture Draw Fee 08:16:46 FISCAL OFFICER CPT-74558 Venipuncture Draw Fee 08:18:55 FISCAL OFFICER CPT-46411 Venipuncture Draw Fee 08:31:18 FISCAL OFFICER CPT-88775 Venipuncture Draw Fee 11:42:52 FISCAL OFFICER CPT-97219 Venipuncture Draw Fee 13:26:37 FISCAL OFFICER CPT-01678 Venipuncture Draw Fee 09:23:38 FISCAL OFFICER CPT-000 Give Appropriate Tetanus Booster 10:23:50 CDT CPT-49025 Bone Density 08:28:45 CDT CPT-89691 Bone Density 11:35:15 CDT CPT-PV Prev. Care Visit 12:19:00 CDT CPT-49164 Venipuncture Draw Fee 15:02:58 CDT
--- OUTSIDE RECORDS SUMMARY | 2018-01-19 08:15 | XMS REPORT | Clinical Summary ---
Author Author Admin, E Organization [facility] Address Unknown Phone Unavailable Allergies, Adverse Reactions, Alerts Allergy Name Reaction Description Start Date Severity Status Provider SULFA facial swelling Critical Active Jocelyne Naff [employer] Conditions or Problems Problem Name Problem Code Onset Date Status Entry Date Provider Comment Standard Description Annotate G E R D 530.81 Active Jocelyne Naff [employer]SCAPE [employer] Esophageal reflux FH COLON CANCER V16.0 Active Jocelyne Naff [employer]SCAPE [employer]OR Family history of malignant neoplasm of gastrointestinal tract ESOPHAGEAL STRICTURE 530.3 Active Darryn Hearn PA Stricture and stenosis of esophagus CAROTID ARTERY STENOSIS, RIGHT 433.10 Active Rikki Stearns PA Occlusion and stenosis of carotid artery, without mention of cerebral infarction HEALTH SCREENING V70.0 Active Rose Darnell [employer]ANDSCAPE [employer]OR Routine general medical examination at a health [...] a day as needed 2014 ALBUTEROL SULFATE 97277701328 Active Marta Viramontes APRN Active TUSSIONEX PENNKINETIC ER 10-8 MG/5ML LQCR 5ml po q12hr PRN Cough HYDROCOD POLST-CHLORPHEN POLST 62640453120 Active Rikki GRANADOS Active LEVAQUIN 750 MG TABS 1 po qd x 7 days LEVOFLOXACIN 75797498520 Active Marta [address] [employer] COMMISSIONER Active FLONASE ALLERGY RELIEF 50 MCG/ACT NASAL SUSP spray twice in each nostril one time daily FLUTICASONE PROPIONATE 62941570009 Active Marta Chinoum COURT COMMISSIONER Active LEVAQUIN 500 MG TAB 1 tablet by mouth daily LEVOFLOXACIN 69974695661 No Longer Active Marta Tenkum COURT COMMISSIONER Active BENZONATATE 200 MG ORAL CAPS One capsule tid. 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 ASPIRIN 81 MG TABS 1qd ASPIRIN 54504617846 No Longer Active Jocelyne Naff [employer]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 CONTRACTOR 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 DOXYCYCLINE HYCLATE 100 MG CAP 1 cap by mouth twice daily DOXYCYCLINE HYCLATE 91038360368 No Longer Active Rikki Harms PA Active VITAMIN D3 41599 UNIT CAPS 1 pill by mouth weekly, for vitamin D deficiency CHOLECALCIFEROL 56556906631 No Longer Active Jennifer Chun MD PhD Active ANASTROZOLE 1 MG ORAL TABS Take one by mouth daily ANASTROZOLE 32176464727 Active Jennifer Chun MD PhD Active ZITHROMAX 250 MG TAB 2 po today, then 1 po q days 2-5 AZITHROMYCIN 96666295840 No Longer Active Rikki Harms PA Active MECLIZINE HCL 25 MG TABS 1 prn MECLIZINE HCL 98831565942 No Longer Active Solomon Alamo MD Active CHERATUSSIN AC SYRP prn as directed GUAIFENESIN- CODEINE SYRP 52002888778 No Longer Active Rikki Harms PA Active MULTIVITAMINS TABS 1qd MULTIPLE VITAMIN 13032898224 No Longer Active Rikki Harms PA Active OMEPRAZOLE 20 MG CPDR 1 PO Q D OMEPRAZOLE 71766151916 Active Rikki Harms PA Active ZITHROMAX Z-CAROLYN 250 MG TABS 2x1day,8a5oxdm AZITHROMYCIN 55839009804 No Longer Active Jocelyne Lovell [employer]ANDSCAPE CONTRACTOR Active MULTIVITAMINS TABS 1qd MULTIVITAMINS TABS MULTIPLE VITAMIN Inactive CHERATUSSIN AC SYRP prn as directed CHERATUSSIN AC SYRP GUAIFENESIN-CODEINE SYRP Inactive MECLIZINE HCL 25 MG TABS 1 prn MECLIZINE HCL 25 MG TABS 264484 MECLIZINE HCL Inactive ASPIRIN 81 MG TABS 1qd ASPIRIN 81 MG TABS 816379 ASPIRIN Inactive CLARITIN 10 MG TABS 1prn CLARITIN 10 MG TABS 153197 LORATADINE Inactive DOXYCYCLINE HYCLATE 100 MG ORAL CAPS Take one bid DOXYCYCLINE HYCLATE 100 MG ORAL CAPS 5131767 DOXYCYCLINE HYCLATE Inactive MUPIROCIN 2 % EXT OINT Use in each nostril in am and pm MUPIROCIN 2 % EXT OINT 085098 MUPIROCIN Inactive CHERATUSSIN AC 100-10 MG/5ML SYRP 1 tsp by mouth every 4 hours as needed for cough CHERATUSSIN AC 100-10 MG/5ML SYRP 311822 GUAIFENESIN-CODEINE Inactive LEVAQUIN 500 MG TAB 1 tablet by mouth daily LEVAQUIN 500 MG TAB 796555 LEVOFLOXACIN Inactive ZITHROMAX Z-CAROLYN 250 MG TABS 2x1day,6t1exdd ZITHROMAX Z-CAROLYN 250 MG TABS 9436470 AZITHROMYCIN Inactive ZITHROMAX 250 MG TAB 2 po today, then 1 po q days 2-5 ZITHROMAX 250 MG TAB 9456604 AZITHROMYCIN Inactive VITAMIN D3 62643 UNIT CAPS 1 pill by mouth weekly, for vitamin D deficiency VITAMIN D3 38236 UNIT CAPS CHOLECALCIFEROL Inactive DOXYCYCLINE HYCLATE 100 MG CAP 1 cap by mouth twice daily DOXYCYCLINE HYCLATE 100 MG CAP 2314803 DOXYCYCLINE HYCLATE Inactive Vital Signs Date Name [...] Report: CBC W/DIFF - Hematology hemoglobin, blood 12.2 g/dL 12.0-16.0 hematocrit, blood 36.8 % 36.0-46.0 mean corpuscular volume, RBC 93 fL 80-97 mean corpuscular hemoglobin, RBC 30.8 pg 27.0-31.2 mean corpuscular hemoglobin concentration, RBC 33.3 G/DL % 31.8- 35.4 red blood cell distribution width 17.3 % 11.6-14.8 platelet count 326 10^3/MM^3 10*3/mm3 052-419 4517/02/10 leukocyte count, blood 2.3 10^3/MM^3 10*3/mm3 4.6-10.2 [...] % 11.6-14.8 platelet count 240 10^3/MM^3 10*3/mm3 751-518 5283/02/04 erythrocyte (RBC) count 3.97 10^6/MM^3 10*6/mm3 4.04-5.48 lymphocytes as percent of blood leukocytes 23.3 % 20.5-51.1 monocytes as percent of blood leukocytes 8.2 % 1.7-9.3 neutrophils as percent of blood leukocytes 66.7 % 42.2-75.2 leukocyte count, blood 8.5 10^3/MM^3 10*3/mm3 4.6-10.2 leukocyte count, blood 3.4 10^3/MM^3 10*3/mm3 4.6-10.2 [...] % 11.6-14.8 platelet count 308 10^3/MM^3 10*3/mm3 489-996 2631/02/25 leukocyte count, blood 6.6 10^3/MM^3 10*3/mm3 4.6-10.2 hematocrit, blood 36.9 % 36.0-46.0 mean corpuscular volume, RBC 92 fL 80-97 mean corpuscular hemoglobin, RBC 30.5 pg 27.0-31.2 mean corpuscular hemoglobin concentration, RBC 33.2 G/DL % 31.8- 35.4 red blood cell distribution width 19.2 % 11.6-14.8 platelet count 433 10^3/MM^3 10*3/mm3 372-187 5350/02/25 neutrophils as percent of blood leukocytes 61.9 [...] % 11.6-14.8 platelet count 203 10^3/MM^3 10*3/mm3 565-110 7995/11/11 neutrophils as percent of blood leukocytes 21.1 [...] % 11.6-14.8 platelet count 143 10^3/MM^3 10*3/mm3 271-758 9476/11/18 neutrophils as percent of blood leukocytes 62.1 [...] % 11.6-14.8 platelet count 139 10^3/MM^3 10*3/mm3 872-801 1285/11/25 neutrophils as percent of blood leukocytes 20.0 % 42.2-75.2 monocytes as percent of blood leukocytes 20.9 % 1.7-9.3 lymphocytes as percent of blood leukocytes 42.9 % 20.5-51.1 erythrocyte (RBC) count 4.11 10^6/MM^3 10*6/mm3 4.04-5.48 hemoglobin, blood 12.6 g/dL 12.0-16.0 leukocyte count, blood 6.7 10^3/MM^3 10*3/mm3 4.6-10.2 hematocrit, blood 35.1 % 36.0-46.0 mean corpuscular volume, RBC 92 fL 80-97 mean corpuscular hemoglobin, RBC 30.5 pg 27.0-31.2 mean corpuscular hemoglobin concentration, RBC 33.2 G/DL % 31.8- 35.4 red blood cell distribution width 15.4 % 11.6-14.8 platelet count 258 10^3/MM^3 10*3/mm3 264-523 4078/12/02 neutrophils as percent of blood leukocytes 52.8 [...] % 11.6-14.8 platelet count 240 10^3/MM^3 10*3/mm3 523-648 0000/12/16 leukocyte count, blood 3.2 10^3/MM^3 10*3/mm3 4.6-10.2 hematocrit, blood 33.8 % 36.0-46.0 mean corpuscular volume, RBC 93 fL 80-97 mean corpuscular hemoglobin, RBC 31.2 pg 27.0-31.2 mean corpuscular hemoglobin concentration, RBC 33.7 G/DL % 31.8- 35.4 red blood cell distribution width 15.3 % 11.6-14.8 platelet count 158 10^3/MM^3 10*3/mm3 872-887 0597/12/16 neutrophils as percent of blood leukocytes 34.6 % 42.2-75.2 monocytes as percent of blood leukocytes 33.5 % 1.7-9.3 lymphocytes as percent of blood leukocytes 25.6 % 20.5-51.1 erythrocyte (RBC) count 3.65 10^6/MM^3 10*6/mm3 4.04-5.48 hemoglobin, blood 11.4 g/dL 12.0-16.0 leukocyte count, blood 8.8 10^3/MM^3 10*3/mm3 4.6-10.2 hematocrit, blood 35.0 % 36.0-46.0 mean corpuscular volume, RBC 93 fL 80-97 mean corpuscular hemoglobin, RBC 30.9 pg 27.0-31.2 mean corpuscular hemoglobin concentration, RBC 33.3 G/DL % 31.8- 35.4 red blood cell distribution width 15.9 % 11.6-14.8 platelet count 207 10^3/MM^3 10*3/mm3 662-431 4081/12/18 neutrophils as percent of blood leukocytes 37.0 [...] % 11.6-14.8 platelet count 183 10^3/MM^3 10*3/mm3 970-907 6192/12/23 neutrophils as percent of blood leukocytes 61.4 % 42.2-75.2 monocytes as percent of blood leukocytes 12.0 % 1.7-9.3 lymphocytes as percent of blood leukocytes 22.8 % 20.5-51.1 erythrocyte (RBC) count 3.37 10^6/MM^3 10*6/mm3 4.04-5.48 hemoglobin, blood 10.7 g/dL 12.0-16.0 leukocyte count, blood 5.2 10^3/MM^3 10*3/mm3 4.6-10.2 hematocrit, blood 33.6 % 36.0-46.0 mean corpuscular volume, RBC 94 fL 80-97 mean corpuscular hemoglobin, RBC 31.8 pg 27.0-31.2 mean corpuscular hemoglobin concentration, RBC 33.8 G/DL % 31.8- 35.4 red blood cell distribution width 16.8 % 11.6-14.8 platelet count 200 10^3/MM^3 10*3/mm3 290-071 7600/12/30 neutrophils as percent of blood leukocytes 70.2 % 42.2-75.2 monocytes as percent of blood leukocytes 9.2 % 1.7-9.3 lymphocytes as percent of blood leukocytes 15.8 % 20.5-51.1 erythrocyte (RBC) count 3.57 10^6/MM^3 10*6/mm3 4.04-5.48 hemoglobin, blood 11.4 g/dL 12.0-16.0 Lab Report: CBC W/DIFF, Comp. Metabolic Panel - Chemistry sodium, serum 140 mmol/L 592-754 0467/01/06 carbon dioxide, venous blood 27.2 mmol/L 21.0-32.0 potassium, serum 4.1 mmol/L 3.5-5.2 chloride, serum 105 mmol/L 98-107 blood glucose 70 mg/dL 65-110 urea nitrogen, blood 25 mg/dL 7-18 creatinine, serum 0.90 mg/dL 0.55-1.30 alanine aminotransferase (SGPT), serum 28 U/L -78 aspartate aminotransferase (SGOT), serum 20 U/L 15-37 calcium, serum 8.9 mg/dL 8.5-10.1 bilirubin, serum, total 0.40 mg/dL 0.00-1.00 sodium, serum 138 mmol/L 124-886 5157/11/04 carbon dioxide, venous blood 27.7 mmol/L 21.0-32.0 potassium, serum 4.9 mmol/L 3.5-5.2 chloride, serum 104 mmol/L 98-107 blood glucose 92 mg/dL 65-110 urea nitrogen, blood 24 mg/dL 7-18 creatinine, serum 0.95 mg/dL 0.55-1.30 alanine aminotransferase (SGPT), serum 34 U/L -78 aspartate aminotransferase (SGOT), serum 23 U/L 15-37 calcium, serum 8.9 mg/dL 8.5-10.1 bilirubin, serum, total 0.70 mg/dL 0.00-1.00 sodium, serum 140 mmol/L 702-217 6892/01/13 carbon dioxide, venous blood 26.4 mmol/L 21.0-32.0 [...] Hematology neutrophils as percent of blood leukocytes 61.2 % 42.2-75.2 monocytes as percent of blood leukocytes 7.1 % 1.7-9.3 lymphocytes as percent of blood leukocytes 22.9 % 20.5-51.1 erythrocyte (RBC) count 3.79 10^6/MM^3 10*6/mm3 4.04-5.48 hemoglobin, blood 12.3 g/dL 12.0-16.0 hemoglobin, blood 13.8 g/dL 12.0-16.0 hematocrit, blood 41.4 % 36.0-46.0 mean corpuscular volume, RBC 90 fL 80-97 mean corpuscular hemoglobin, RBC 30.0 pg 27.0-31.2 mean corpuscular hemoglobin concentration, RBC 33.4 G/DL % 31.8- 35.4 red blood cell distribution width 14.4 % 11.6-14.8 platelet count 216 10^3/MM^3 10*3/mm3 557-798 7739/01/06 leukocyte count, blood 4.1 10^3/MM^3 10*3/mm3 4.6-10.2 hematocrit, blood 34.3 % 36.0-46.0 mean corpuscular volume, RBC 96 fL 80-97 mean corpuscular hemoglobin, RBC 32.6 pg 27.0-31.2 mean corpuscular hemoglobin concentration, RBC 34.1 G/DL % 31.8- 35.4 red blood cell distribution width 17.9 % 11.6-14.8 platelet count 297 10^3/MM^3 10*3/mm3 299-341 2491/11/04 leukocyte count, blood 3.8 10^3/MM^3 10*3/mm3 4.6-10.2 neutrophils as percent of blood leukocytes 71.6 % 42.2-75.2 monocytes as percent of blood leukocytes 0.8 % 1.7-9.3 lymphocytes as percent of blood leukocytes 21.3 % 20.5-51.1 erythrocyte (RBC) count 4.61 10^6/MM^3 10*6/mm3 4.04-5.48 neutrophils as percent of blood leukocytes 55.0 [...] Panel - Chemistry sodium, serum 140 mmol/L 675-910 4678/07/13 potassium, serum 4.5 mmol/L 3.5-5.2 chloride, serum 106 mmol/L 98-107 carbon dioxide, venous blood 27.7 mmol/L 21.0-32.0 blood glucose 105 mg/dL 65-110 urea nitrogen, blood 14 mg/dL 7-18 creatinine, serum 0.90 mg/dL 0.60-1.30 alanine aminotransferase (SGPT), serum 29 U/L 12-78 aspartate aminotransferase (SGOT), serum 22 U/L 15-37 calcium, serum 9.4 mg/dL 8.5-10.1 bilirubin, serum, total 0.70 mg/dL 0.00-1.00 cholesterol, serum 160 mg/dL 350-684 9916/07/13 triglyceride, serum, fasting 63 mg/dL 30-200 HDL [...] 18 mg/dL 7-18 sodium, serum 141 mmol/L 792-088 7895/02/10 creatinine, serum 0.90 mg/dL 0.60-1.30 alanine aminotransferase (SGPT), serum 29 U/L 12-78 aspartate aminotransferase (SGOT), serum 21 U/L 15-37 calcium, serum 8.3 mg/dL 8.5-10.1 bilirubin, serum, total 0.40 mg/dL 0.00-1.00 sodium, serum 141 mmol/L 462-446 9551/11/11 carbon dioxide, venous blood 26.8 mmol/L 21.0-32.0 potassium, serum 4.2 mmol/L 3.5-5.2 chloride, serum 106 mmol/L 98-107 blood glucose 95 mg/dL 65-110 urea nitrogen, blood 18 mg/dL 7-18 creatinine, serum 0.70 mg/dL 0.55-1.30 alanine aminotransferase (SGPT), serum 33 U/L 12-78 aspartate aminotransferase (SGOT), serum 22 U/L 15-37 calcium, serum 8.5 mg/dL 8.5-10.1 bilirubin, serum, total 0.30 mg/dL 0.00-1.00 sodium, serum 141 mmol/L 892-552 4022/11/18 carbon dioxide, venous blood 26.2 mmol/L 21.0-32.0 potassium, serum 4.4 mmol/L 3.5-5.2 chloride, serum 106 mmol/L 98-107 blood glucose 102 mg/dL 65-110 urea nitrogen, blood 24 mg/dL 7-18 creatinine, serum 0.77 mg/dL 0.55-1.30 alanine aminotransferase (SGPT), serum 30 U/L aspartate aminotransferase (SGOT), serum 15 U/L -37 calcium, serum 8.3 mg/dL 8.5-10.1 bilirubin, serum, total 0.30 mg/dL 0.00-1.00 sodium, serum 139 mmol/L 108-010 9275/11/25 carbon dioxide, venous blood 27.9 mmol/L 21.0-32.0 potassium, serum 4.7 mmol/L 3.5-5.2 chloride, serum 105 mmol/L 98-107 blood glucose 94 mg/dL 65-110 urea nitrogen, blood 21 mg/dL 7-18 creatinine, serum 0.79 mg/dL 0.55-1.30 alanine aminotransferase (SGPT), serum 40 U/L aspartate aminotransferase (SGOT), serum 22 U/L 15-37 calcium, serum 8.5 mg/dL 8.5-10.1 bilirubin, serum, total 0.80 mg/dL 0.00-1.00 sodium, serum 139 mmol/L 778-605 9032/12/30 creatinine, serum 0.81 mg/dL 0.55-1.30 alanine aminotransferase (SGPT), serum 29 U/L aspartate aminotransferase (SGOT), serum 22 U/L 15-37 calcium, serum 8.8 mg/dL 8.5-10.1 bilirubin, serum, total 0.50 mg/dL 0.00-1.00 carbon dioxide, venous blood 28.2 mmol/L 21.0-32.0 potassium, serum 3.9 mmol/L 3.5-5.2 chloride, serum 105 mmol/L 98-107 blood glucose 91 mg/dL 65-110 urea nitrogen, blood 17 mg/dL 7-18 sodium, serum 143 mmol/L 407-325 6562/12/23 carbon dioxide, venous blood 24.6 mmol/L 21.0-32.0 potassium, serum 4.1 mmol/L 3.5-5.2 chloride, serum 107 mmol/L 98-107 blood glucose 98 mg/dL 65-110 urea nitrogen, blood 22 mg/dL 7-18 creatinine, serum 0.77 mg/dL 0.55-1.30 alanine aminotransferase (SGPT), serum 28 U/L aspartate aminotransferase (SGOT), serum 20 U/L - calcium, serum 8.6 mg/dL 8.5-10.1 bilirubin, serum, total 0.30 mg/dL 0.00-1.00 sodium, serum 142 mmol/L 415-928 7789/12/09 creatinine, serum 0.88 mg/dL 0.55-1.30 alanine aminotransferase (SGPT), serum 31 U/L aspartate aminotransferase (SGOT), serum 18 U/L - calcium, serum 8.9 mg/dL 8.5-10.1 bilirubin, serum, total 0.40 mg/dL 0.00-1.00 carbon dioxide, venous blood 28.5 mmol/L 21.0-32.0 potassium, serum 5.0 mmol/L 3.5-5.2 chloride, serum 109 mmol/L 98-107 blood glucose 91 mg/dL 65-110 urea nitrogen, blood 27 mg/dL 7-18 sodium, serum 140 mmol/L 944-103 6819/12/16 creatinine, serum 0.87 mg/dL 0.55-1.30 alanine aminotransferase (SGPT), serum 35 U/L 78 aspartate aminotransferase (SGOT), serum 21 U/L 15-37 calcium, serum 8.4 mg/dL 8.5-10.1 bilirubin, serum, total 0.50 mg/dL 0.00-1.00 carbon dioxide, venous blood 25.4 mmol/L 21.0-32.0 potassium, serum 4.1 mmol/L 3.5-5.2 chloride, serum 104 mmol/L 98-107 blood glucose 110 mg/dL 65-110 urea nitrogen, blood 24 mg/dL 7-18 sodium, serum 141 mmol/L 002-240 6938/12/02 creatinine, serum 0.75 mg/dL 0.55-1.30 alanine aminotransferase (SGPT), serum 31 U/L aspartate aminotransferase (SGOT), serum 20 U/L 15-37 calcium, serum 8.7 mg/dL 8.5-10.1 bilirubin, serum, total 0.30 mg/dL 0.00-1.00 carbon dioxide, venous blood 25.9 mmol/L 21.0-32.0 potassium, serum 4.7 mmol/L 3.5-5.2 chloride, serum 106 mmol/L 98-107 blood glucose 78 mg/dL 65-110 urea nitrogen, blood 24 mg/dL 7-18 Lab Report: VITAMIN D, 25-HYDROXY/95958 - Chemistry vitamin D 25-hydroxy, serum 24 ng/mL 30-100 Encounters Code Encounter Date Provider Facility CPT-75173 Level 2 Est. Patient 14:30:43 [employer] SERVICE [employer] Marta Viramontes [facility] CPT-72357 Level 4 Est. 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 Patient 09:07:32 CDT Marta Viramontes [facility] CPT-32805 Level 4 Est. Patient 11:55:00 CDT Rikki GRANADOS [facility] CPT-19463 Level 3 Est. Patient 13:25:16 CDT Jennifer Chun MD [facility] CPT-88423 Level 3 Est. Patient 17:31:22 CDT Solomon Alamo MD [facility] CPT-01685 Level 3 Est. Patient 08:02:14 CDT Solomon Alamo MD [facility] CPT-54545 Level 3 Est. Patient 17:23:53 CDT Rikki GRANADOS [facility] CPT-29924 Level 3 Est. Patient 11:22:41 CDT Darryn Hearn [facility] Procedures Code Procedure Name Date Entry Date Standard Description CPT-92764 Venipuncture Draw Fee 09:22:28 [employer]ICE [employer] CPT-36835 Chest 2V Frontal and Lat 09:22:27 [employer]ICE [employer] CPT-I/D I/D Abscess 09:43:13 CDT CPT-90001 Venipuncture Draw Fee 08:16:46 [employer] SERVICE [employer]OTER CPT-59993 Venipuncture Draw Fee 08:18:55 [employer]ES SERVICE [employer]OTER CPT-63454 Venipuncture Draw Fee 08:31:18 [employer]ES SERVICE [employer]OTER CPT-17622 Venipuncture Draw Fee 11:42:52 [employer] SERVICE [employer]OTER CPT-79906 Venipuncture Draw Fee 13:26:37 [employer]ES SERVICE [employer]OTER CPT-12575 Venipuncture Draw Fee 09:23:38 [employer]ES SERVICE [employer]OTER CPT-000 Give Appropriate Tetanus Booster 10:23:50 CDT CPT-02283 Bone Density 08:28:45 CDT CPT-45593 Bone Density 11:35:15 CDT CPT-PV Prev. Care Visit 12:19:00 CDT CPT-83873 Venipuncture Draw Fee 15:02:58 CDT
--- OUTSIDE RECORDS SUMMARY | 2018-01-19 08:17 | XMS REPORT | Clinical Summary ---
Author Author Admin, E Organization [facility] Address Unknown Phone Unavailable Allergies, Adverse Reactions, Alerts Allergy Name Reaction Description Start Date Severity Status Provider SULFA facial swelling Critical Active Jocelyne Naff RIM ROLLER OPERATOR Conditions or Problems Problem Name Problem Code Onset Date Status Entry Date Provider Comment Standard Description Annotate G E R D 530.81 Active Jocelyne Naff RIM ROLLER OPERATOR Esophageal reflux FH COLON CANCER V16.0 Active Jocelyne Naff RIM ROLLER OPERATOR Family history of malignant neoplasm of [...] Ingrown toenail, left 703.0 Resolved Marta Yokum SILK EXAMINER Ingrowing nail cellulitis, finger, right 681.00 Active Marta Yokum SILK EXAMINER Cellulitis and abscess of finger, unspecified Cough 786.2 Active Marta Yokum SILK EXAMINER Cough Breast microcalcification ICD-793.81 Inactive Jennifer Chun [...] Ingrown toenail, left ICD-703.0 Inactive Marta Yokum SILK EXAMINER Medication List Medication Instructions Start Date Stop Date Generic Name NDC Status Provider Patient Instruction MEDROL (CAROLYN) 4 MG TABS 6 tabs on day 1, 5 tabs on day 2, 4 tabs on day 3, 3 tabs on day 4, 2 tabs on day 5, 1 tab on day 6 METHYLPREDNISOLONE 62715589919 Active Marta Yokum SILK EXAMINER Active TESSALON PERLES 100 MG CAP 1 to 2 tablets by mouth 3 times daily as needed for cough BENZONATATE 09137051968 Active Marta Yokum SILK EXAMINER Active TUSSIONEX PENNKINETIC ER 10-8 MG/5ML LQCR 5ml po q12hr PRN Cough HYDROCOD POLST-CHLORPHEN POLST 81068076559 Active Marta Yokum SILK EXAMINER Active KEFLEX 500 MG CAP 1 po qid CEPHALEXIN 35618491893 No Longer Active Marta Yokum SILK EXAMINER Active B COMPLEX 50 ORAL CR-TABS B COMPLEX VITAMINS 04280878138 Active Marta Yokum SILK EXAMINER Active TUSSIONEX PENNKINETIC ER 10-8 MG/5ML LQCR 5ml po q12hr PRN Cough HYDROCOD POLST-CHLORPHEN POLST 57253351799 No Longer Active Marta Viramontes APRN Active VITAMIN D3 39804 UNIT CAPS 1 qWeek x 4 months for vitamin D deficiency 04/09 CHOLECALCIFEROL 06652485016 Active Marta Viramontes APRN Active CEPHALEXIN 500 MG ORAL CAPS Take one four times a day CEPHALEXIN 78626070936 No Longer Active Marta Viramontes APRN Active BIOTIN 1000 MCG ORAL TABS Take one daily BIOTIN 74971670909 Active Rikki Harms PA Active VITAMIN C 500 MG ORAL CAPS Take one daily ASCORBIC ACID 82958475494 Active Rikki Harms PA Active BENZONATATE 200 MG ORAL CAPS One capsule tid. BENZONATATE 47738950656 No Longer Active Rikki Harms PA Active FLONASE ALLERGY RELIEF 50 MCG/ACT NASAL SUSP spray twice in each nostril one time daily FLUTICASONE PROPIONATE 16070732460 No Longer Active Rikki Harms PA Active TUSSIONEX PENNKINETIC ER 10-8 MG/5ML LQCR 5ml po q12hr PRN Cough HYDROCOD POLST-CHLORPHEN POLST 17984444252 No Longer Active Rikki Harms PA Active NIACIN ER 500 MG ORAL CR-TABS Take one twice daily NIACIN 41258552019 Active Rikki Harms PA Active ALBUTEROL SULFATE 0.083 % NEBU SOLN one vial per nebulizer every 4-6 hours as needed ALBUTEROL SULFATE 55944998547 No Longer Active Rikki Harms PA Active MEDROL (CAROLYN) 4 MG TABS 6 tabs on day 1, 5 tabs on day 2, 4 tabs on day 3, 3 tabs on day 4, 2 tabs on day 5, 1 tab on day 6 METHYLPREDNISOLONE 42024865097 No Longer Active Rikki Harms PA Active LEVAQUIN 750 MG TABS 1 po qd x 7 days LEVOFLOXACIN 84800013770 No Longer Active Rikki Harms PA Active LEVAQUIN 500 MG ORAL TABS Take one tablet daily LEVOFLOXACIN 86889474876 No Longer Active Rikki Harms PA Active PROAIR HFA 108 (90 BASE) MCG/ACT AERS 2 puffs four times a day as needed 2014 ALBUTEROL SULFATE 24087663807 Active Marta Yokum SILK EXAMINER Active LEVAQUIN 500 MG TAB 1 tablet by mouth daily LEVOFLOXACIN 70492813220 No Longer Active Marta Yokum SILK EXAMINER Active CHERATUSSIN AC 100-10 MG/5ML SYRP 1 tsp by mouth every 4 hours as needed for cough GUAIFENESIN-CODEINE 93532852550 No Longer Active Rikki Harms PA Active MUPIROCIN 2 % EXT OINT Use in each nostril in am and pm MUPIROCIN 22167502715 No Longer Active Rikki Harms PA Active DOXYCYCLINE HYCLATE 100 MG ORAL CAPS Take one bid DOXYCYCLINE HYCLATE 81782576730 No Longer Active Rikki Harms PA Active CLARITIN 10 MG TABS 1prn LORATADINE 14048627676 No Longer Active Jocelyne Naff RIM ROLLER OPERATOR Active ASPIRIN 81 MG TABS 1qd ASPIRIN 95720022875 No Longer Active Jocelyne Naff RIM ROLLER OPERATOR Active DOXYCYCLINE HYCLATE 100 MG CAP 1 cap by mouth twice daily DOXYCYCLINE HYCLATE 96946775483 No Longer Active Rikki Harms PA Active VITAMIN D3 73652 UNIT CAPS 1 pill by mouth weekly, for vitamin D deficiency CHOLECALCIFEROL 83204931360 No Longer Active Jennifer Chun MD PhD Active ANASTROZOLE 1 MG ORAL TABS Take one by mouth daily ANASTROZOLE 77780803605 Active Jennifer Chun MD PhD Active ZITHROMAX 250 MG TAB 2 po today, then 1 po q days 2-5 AZITHROMYCIN 58001142091 No Longer Active Rikki Harms PA Active MECLIZINE HCL 25 MG TABS 1 prn MECLIZINE HCL 16174554993 No Longer Active Solomon Alamo MD Active CHERATUSSIN AC SYRP prn as directed GUAIFENESIN- CODEINE SYRP 94258376130 No Longer Active Rikki Harms PA Active MULTIVITAMINS TABS 1qd MULTIPLE VITAMIN 09037700743 No Longer Active Rikki Harms PA Active OMEPRAZOLE 20 MG CPDR 1 PO Q D OMEPRAZOLE 97025961873 Active Jocelyne Naff RIM ROLLER OPERATOR Active ZITHROMAX Z-CAROLYN 250 MG TABS 2x1day,6p5fmeu AZITHROMYCIN 28041635892 No Longer Active Jocelyne Naff RIM ROLLER OPERATOR Active MULTIVITAMINS TABS 1qd MULTIVITAMINS TABS MULTIPLE VITAMIN Inactive CHERATUSSIN AC SYRP prn as directed CHERATUSSIN AC SYRP GUAIFENESIN-CODEINE SYRP Inactive MECLIZINE HCL 25 MG TABS 1 prn MECLIZINE HCL 25 MG TABS 779187 MECLIZINE HCL Inactive ASPIRIN 81 MG TABS 1qd ASPIRIN 81 MG TABS ASPIRIN Inactive CLARITIN 10 MG TABS 1prn CLARITIN 10 MG TABS 619903 LORATADINE Inactive DOXYCYCLINE HYCLATE 100 MG ORAL CAPS Take one bid DOXYCYCLINE HYCLATE 100 MG ORAL CAPS 5434673 DOXYCYCLINE HYCLATE Inactive MUPIROCIN 2 % EXT OINT Use in each nostril in am and pm MUPIROCIN 2 % EXT OINT 408870 MUPIROCIN Inactive CHERATUSSIN AC 100-10 MG/5ML SYRP 1 tsp by mouth every 4 hours as needed for cough CHERATUSSIN AC 100-10 MG/5ML SYRP 256709 GUAIFENESIN-CODEINE Inactive LEVAQUIN 500 MG TAB 1 tablet by mouth daily LEVAQUIN 500 MG TAB 079857 LEVOFLOXACIN Inactive LEVAQUIN 500 MG ORAL TABS Take one tablet daily LEVAQUIN 500 MG ORAL TABS 19980111 LEVOFLOXACIN Inactive LEVAQUIN 750 MG TABS 1 po qd x 7 days LEVAQUIN 750 MG TABS 184327 LEVOFLOXACIN Inactive ALBUTEROL SULFATE 0.083 % NEBU SOLN one vial per nebulizer every 4-6 hours as needed ALBUTEROL SULFATE 0.083 % NEBU SOLN 353326 ALBUTEROL SULFATE Inactive TUSSIONEX PENNKINETIC ER 10-8 MG/5ML LQCR 5ml po q12hr PRN Cough TUSSIONEX PENNKINETIC ER 10-8 MG/5ML LQCR HYDROCOD POLST- CHLORPHEN POLST Inactive FLONASE ALLERGY RELIEF 50 MCG/ACT NASAL SUSP spray twice in each nostril one time daily FLONASE ALLERGY RELIEF 50 MCG/ACT NASAL SUSP 0466243 FLUTICASONE PROPIONATE Inactive BENZONATATE 200 MG ORAL CAPS One capsule tid. BENZONATATE 200 MG ORAL CAPS 170344 BENZONATATE Inactive CEPHALEXIN 500 MG ORAL CAPS Take one four times a day CEPHALEXIN 500 MG ORAL CAPS 297800 CEPHALEXIN Inactive TUSSIONEX PENNKINETIC ER 10-8 MG/5ML LQCR 5ml po q12hr PRN Cough TUSSIONEX PENNKINETIC ER 10-8 MG/5ML LQCR HYDROCOD POLST- CHLORPHEN POLST Inactive ZITHROMAX Z-CAROLYN 250 MG TABS 2x1day,5k8pfhp ZITHROMAX Z-CAROLYN 250 MG TABS 7420179 AZITHROMYCIN Inactive ZITHROMAX 250 MG TAB 2 po today, then 1 po q days 2-5 ZITHROMAX 250 MG TAB 2798972 AZITHROMYCIN Inactive VITAMIN D3 44831 UNIT CAPS 1 pill by mouth weekly, for vitamin D deficiency VITAMIN D3 03236 UNIT CAPS CHOLECALCIFEROL Inactive DOXYCYCLINE HYCLATE 100 MG CAP 1 cap by mouth twice daily DOXYCYCLINE HYCLATE 100 MG CAP 7802894 DOXYCYCLINE HYCLATE Inactive MEDROL (CAROLYN) 4 MG TABS 6 tabs on day 1, 5 tabs on day 2, 4 tabs on day 3, 3 tabs on day 4, 2 tabs on day 5, 1 tab on day 6 MEDROL ( CAROLYN) 4 MG TABS 360984 METHYLPREDNISOLONE Inactive KEFLEX 500 MG CAP 1 po qid KEFLEX 500 MG CAP 921678 CEPHALEXIN Inactive Vital Signs Date Name Value [...] Panel - Chemistry sodium, serum 142 mmol/L 705-777 1660/07/25 potassium, serum 4.0 mmol/L 3.5-5.2 chloride, serum 107 mmol/L 98-107 carbon dioxide, venous blood 31.6 mmol/L 21.0-32.0 blood glucose 108 mg/dL 65-110 calcium, serum 9.2 mg/dL 8.5-10.1 urea nitrogen, blood 20 mg/dL 7-18 creatinine, serum 0.92 mg/dL 0.55-1.30 sodium, serum 141 mmol/L 043-560 7996/11/11 potassium, serum 4.2 mmol/L 3.5-5.2 chloride, serum 106 mmol/L 98-107 carbon dioxide, venous blood 29.1 mmol/L 21.0-32.0 blood glucose 95 mg/dL 65-110 calcium, serum 8.6 mg/dL 8.5-10.1 urea nitrogen, blood 23 mg/dL 7-18 creatinine, serum 0.83 mg/dL 0.55-1.30 Lab Report: Lipid Panel, Thyroid Stimulating Hormone (L) - Chemistry cholesterol, serum 177 mg/dL 932-589 1442/10/31 triglyceride, serum, fasting 64 mg/dL 30-200 HDL cholesterol, serum 77 mg/dL 32-96 LDL cholesterol, serum 87 mg/dL 0-130 TSH 2.13 m[iU]/mL 0.36-3.74 Lab Report: VITAMIN D, 25-HYDROXY/49808 - Chemistry vitamin D 25-hydroxy, serum 25 ng/mL 30-100 Encounters Code Encounter Date Provider Facility CPT-23137 Level 3 Est. Patient 16:07:34 CDT Marta Viramontes [facility] CPT-25644 Level 3 Est. Patient 15:39:01 CDT Marta Viramontes [facility] CPT-66360 Level 4 Est. Patient 17:31:07 CDT Marta Viramontes [facility] CPT-87401 Level 3 Est. Patient 05:11:40 CDT Rikki GRANADOS [facility] CPT-62963 Level 2 Est. Patient 14:30:43 GRAVURE PRESS SET UP OPERATOR Marta Viramontes [facility] CPT-63130 Level 4 Est. Patient 09:14:36 GRAVURE PRESS SET UP OPERATOR Rikki GRANADOS [facility] CPT-49253 Level 2 Est. Patient 09:07:32 CDT Marta Viramontes [facility] CPT-63709 Level 4 Est. Patient 11:55:00 CDT Rikki GRANADOS [facility] CPT-17576 Level 3 Est. Patient 13:25:16 CDT Jennifer Chun MD [facility] CPT-14038 Level 3 Est. Patient 17:31:22 CDT Solomon Alamo MD [facility] CPT-90960 Level 3 Est. Patient 08:02:14 CDT Solomon Alamo MD [facility] CPT-22781 Level 3 Est. Patient 17:23:53 CDT Rikki GRANADOS [facility] CPT-59170 Level 3 Est. Patient 11:22:41 CDT Darryn Hearn [facility] Procedures Code Procedure Name Date Entry Date Standard Description CPT-37856 Venipuncture Draw Fee 12:43:48 GRAVURE PRESS SET UP OPERATOR CPT-25754 BMP - LAB USE ONLY 10:32:33 GRAVURE PRESS SET UP OPERATOR CPT-44618 Venipuncture Draw Fee 10:32:33 GRAVURE PRESS SET UP OPERATOR CPT-31424 Magnesium - LAB USE ONLY 09:54:30 CDT CPT-14087 TSH - LAB USE ONLY 09:54:30 CDT CPT-72929 Lipid - LAB USE ONLY 09:54:30 CDT CPT-68611 Venipuncture Draw Fee 09:54:29 CDT CPT-67354 Venipuncture Draw Fee 18:27:04 CDT CPT-94347 Chest 2V Frontal and Lat 10:57:00 GRAVURE PRESS SET UP OPERATOR CPT-24363 Venipuncture Draw Fee 10:56:59 GRAVURE PRESS SET UP OPERATOR CPT-19640 Venipuncture Draw Fee 09:22:28 GRAVURE PRESS SET UP OPERATOR CPT-68259 Chest 2V Frontal and Lat 09:22:27 GRAVURE PRESS SET UP OPERATOR CPT-I/D I/D Abscess 09:43:13 CDT CPT-53441 Venipuncture Draw Fee 08:16:46 GRAVURE PRESS SET UP OPERATOR CPT-07664 Venipuncture Draw Fee 08:18:55 GRAVURE PRESS SET UP OPERATOR CPT-82183 Venipuncture Draw Fee 08:31:18 GRAVURE PRESS SET UP OPERATOR CPT-94951 Venipuncture Draw Fee 11:42:52 GRAVURE PRESS SET UP OPERATOR CPT-41387 Venipuncture Draw Fee 13:26:37 GRAVURE PRESS SET UP OPERATOR CPT-24246 Venipuncture Draw Fee 09:23:38 GRAVURE PRESS SET UP OPERATOR CPT-000 Give Appropriate Tetanus Booster 10:23:50 CDT CPT-52251 Bone Density 08:28:45 CDT CPT-89815 Bone Density 11:35:15 CDT CPT-PV Prev. Care Visit 12:19:00 CDT CPT-44554 Venipuncture Draw Fee 15:02:58 CDT
--- OUTSIDE RECORDS SUMMARY | 2018-01-19 08:18 | XMS REPORT | Clinical Summary ---
Author Author Admin, E Organization [facility] Address Unknown Phone Unavailable Allergies, Adverse Reactions, Alerts Allergy Name Reaction Description Start Date Severity Status Provider SULFA facial swelling Critical Active Jocelyne Naff [employer]ATE [employer]NERSHIPS Conditions or Problems Problem Name Problem Code Onset Date Status Entry Date Provider Comment Standard Description Annotate G E R D 530.81 Active Jocelyne Naff [employer]ATE [employer]NERSHIPS Esophageal reflux FH COLON CANCER V16.0 Active Jocelyne Naff VP [employer]PORATE [employer]NERSHIPS Family history of malignant neoplasm of gastrointestinal tract ESOPHAGEAL STRICTURE 530.3 Active Darryn eHarn PA Stricture and stenosis of esophagus CAROTID ARTERY STENOSIS, RIGHT 433.10 Active Rikki Stearns PA Occlusion and stenosis of carotid artery, without mention of cerebral infarction HEALTH SCREENING V70.0 Active Rose Darenll LPN Routine general medical examination at a [...] Stearns PA Ingrown toenail, left ICD-703.0 Inactive Matra Viramontes [place] Medication List Medication Instructions Start Date Stop Date Generic Name NDC Status Provider Patient Instruction TUSSIONEX PENNKINETIC ER 10-8 MG/5ML LQCR 5ml po q12hr PRN Cough HYDROCOD POLST-CHLORPHEN POLST 66245636790 Active Marta Viramontes APRN Active VITAMIN D3 05095 UNIT CAPS 1 qWeek x 4 months for vitamin D deficiency 04/09 CHOLECALCIFEROL 82400538828 Active Marta Viramontes APRN Active CEPHALEXIN 500 MG ORAL CAPS Take one four times a day CEPHALEXIN 90811027235 No Longer Active Marta Viramontes APRN Active BIOTIN 1000 MCG ORAL TABS Take one daily BIOTIN 17006097441 Active Rikki Harms PA Active VITAMIN C 500 MG ORAL CAPS Take one daily ASCORBIC ACID 42988625443 Active Rikki Harms PA Active BENZONATATE 200 MG ORAL CAPS One capsule tid. BENZONATATE 74683698834 No Longer Active Rikki Harms PA Active FLONASE ALLERGY RELIEF 50 MCG/ACT NASAL SUSP spray twice in each nostril one time daily FLUTICASONE PROPIONATE 93952333095 No Longer Active Rikki Harms PA Active TUSSIONEX PENNKINETIC ER 10-8 MG/5ML LQCR 5ml po q12hr PRN Cough HYDROCOD POLST-CHLORPHEN POLST 69073020869 No Longer Active Rikki Harms PA Active NIACIN ER 500 MG ORAL CR-TABS Take one twice daily NIACIN 19108043503 Active Rikki Harms PA Active ALBUTEROL SULFATE 0.083 % NEBU SOLN one vial per nebulizer every 4-6 hours as needed ALBUTEROL SULFATE 92526249990 No Longer Active Rikki Harms PA Active MEDROL (CAROLYN) 4 MG TABS 6 tabs on day 1, 5 tabs on day 2, 4 tabs on day 3, 3 tabs on day 4, 2 tabs on day 5, 1 tab on day 6 METHYLPREDNISOLONE 69774966043 No Longer Active Rikki Harms PA Active LEVAQUIN 750 MG TABS 1 po qd x 7 days LEVOFLOXACIN 95177908471 No Longer Active Rikki Harms PA Active LEVAQUIN 500 MG ORAL TABS Take one tablet daily LEVOFLOXACIN 12414467197 No Longer Active Rikki Harms PA Active PROAIR HFA 108 (90 BASE) MCG/ACT AERS 2 puffs four times a day as needed 2014 ALBUTEROL SULFATE 25031852154 Active Marta Yokum INSTALLATIONS INSPECTOR Active LEVAQUIN 500 MG TAB 1 tablet by mouth daily LEVOFLOXACIN 75886005168 No Longer Active Marta Yokum INSTALLATIONS INSPECTOR Active CHERATUSSIN AC 100-10 MG/5ML SYRP 1 tsp by mouth every 4 hours as needed for cough GUAIFENESIN-CODEINE 53798604888 No Longer Active Rikki Harms PA Active MUPIROCIN 2 % EXT OINT Use in each nostril in am and pm MUPIROCIN 91143277530 No Longer Active Rikki Harms PA Active DOXYCYCLINE HYCLATE 100 MG ORAL CAPS Take one bid DOXYCYCLINE HYCLATE 95455538808 No Longer Active Rikki Harms PA Active CLARITIN 10 MG TABS 1prn LORATADINE 00360379829 No Longer Active Jocelyne Naff VP CORPORATE PARTNERSHIPS Active ASPIRIN 81 MG TABS 1qd ASPIRIN 60153855056 No Longer Active Jocelyne Naff VP CORPORATE PARTNERSHIPS Active DOXYCYCLINE HYCLATE 100 MG CAP 1 cap by mouth twice daily DOXYCYCLINE HYCLATE 15054955598 No Longer Active Rikki Harms PA Active VITAMIN D3 49003 UNIT CAPS 1 pill by mouth weekly, for vitamin D deficiency CHOLECALCIFEROL 05861727125 No Longer Active Jennifer Chun MD PhD Active ANASTROZOLE 1 MG ORAL TABS Take one by mouth daily ANASTROZOLE 72735063385 Active Jennifer Chun MD PhD Active ZITHROMAX 250 MG TAB 2 po today, then 1 po q days 2-5 AZITHROMYCIN 48544686171 No Longer Active Rikki Harms PA Active MECLIZINE HCL 25 MG TABS 1 prn MECLIZINE HCL 36731082495 No Longer Active Solomon Alamo MD Active CHERATUSSIN AC SYRP prn as directed GUAIFENESIN- CODEINE SYRP 73850040844 No Longer Active Rikki Harms PA Active MULTIVITAMINS TABS 1qd MULTIPLE VITAMIN 11036422858 No Longer Active Rikki Harms PA Active OMEPRAZOLE 20 MG CPDR 1 PO Q D OMEPRAZOLE 42314331468 Active Marta Maganaum INSTALLATIONS INSPECTOR Active ZITHROMAX Z-CAROLYN 250 MG TABS 2x1day,9d0tezx AZITHROMYCIN 37303632187 No Longer Active Jocelyne Lovell VP [employer]ATE [employer]NERSHIPS Active MULTIVITAMINS TABS 1qd MULTIVITAMINS TABS MULTIPLE VITAMIN Inactive CHERATUSSIN AC SYRP prn as directed CHERATUSSIN AC SYRP GUAIFENESIN-CODEINE SYRP Inactive MECLIZINE HCL 25 MG TABS 1 prn MECLIZINE HCL 25 MG TABS 602238 MECLIZINE HCL Inactive ASPIRIN 81 MG TABS 1qd ASPIRIN 81 MG TABS ASPIRIN Inactive CLARITIN 10 MG TABS 1prn CLARITIN 10 MG TABS 105713 LORATADINE Inactive DOXYCYCLINE HYCLATE 100 MG ORAL CAPS Take one bid DOXYCYCLINE HYCLATE 100 MG ORAL CAPS 2796391 DOXYCYCLINE HYCLATE Inactive MUPIROCIN 2 % EXT OINT Use in each nostril in am and pm MUPIROCIN 2 % EXT OINT 918434 MUPIROCIN Inactive CHERATUSSIN AC 100-10 MG/5ML SYRP 1 tsp by mouth every 4 hours as needed for cough CHERATUSSIN AC 100-10 MG/5ML SYRP 673338 GUAIFENESIN-CODEINE Inactive LEVAQUIN 500 MG TAB 1 tablet by mouth daily LEVAQUIN 500 MG TAB 966644 LEVOFLOXACIN Inactive LEVAQUIN 500 MG ORAL TABS Take one tablet daily LEVAQUIN 500 MG ORAL TABS 823434 LEVOFLOXACIN Inactive LEVAQUIN 750 MG TABS 1 po qd x 7 days LEVAQUIN 750 MG TABS 508764 LEVOFLOXACIN Inactive ALBUTEROL SULFATE 0.083 % NEBU SOLN one vial per nebulizer every 4-6 hours as needed ALBUTEROL SULFATE 0.083 % NEBU SOLN 320598 ALBUTEROL SULFATE Inactive TUSSIONEX PENNKINETIC ER 10-8 MG/5ML LQCR 5ml po q12hr PRN Cough TUSSIONEX PENNKINETIC ER 10-8 MG/5ML LQCR HYDROCOD POLST- CHLORPHEN POLST Inactive FLONASE ALLERGY RELIEF 50 MCG/ACT NASAL SUSP spray twice in each nostril one time daily FLONASE ALLERGY RELIEF 50 MCG/ACT NASAL SUSP 4195598 FLUTICASONE PROPIONATE Inactive BENZONATATE 200 MG ORAL CAPS One capsule tid. BENZONATATE 200 MG ORAL CAPS 220050 BENZONATATE Inactive CEPHALEXIN 500 MG ORAL CAPS Take one four times a day CEPHALEXIN 500 MG ORAL CAPS 622403 CEPHALEXIN Inactive ZITHROMAX Z-CAROLYN 250 MG TABS 2x1day,0v0rohy ZITHROMAX Z-CAROLYN 250 MG TABS 9815596 AZITHROMYCIN Inactive ZITHROMAX 250 MG TAB 2 po today, then 1 po q days 2-5 ZITHROMAX 250 MG TAB 0899685 AZITHROMYCIN Inactive VITAMIN D3 53313 UNIT CAPS 1 pill by mouth weekly, for vitamin D deficiency VITAMIN D3 05352 UNIT CAPS CHOLECALCIFEROL Inactive DOXYCYCLINE HYCLATE 100 MG CAP 1 cap by mouth twice daily DOXYCYCLINE HYCLATE 100 MG CAP 3575100 DOXYCYCLINE HYCLATE Inactive MEDROL (CAROLYN) 4 MG TABS 6 tabs on day 1, 5 tabs on day 2, 4 tabs on day 3, 3 tabs on day 4, 2 tabs on day 5, 1 tab on day 6 MEDROL ( CAROLYN) 4 MG TABS 933346 METHYLPREDNISOLONE Inactive Vital Signs Date Name Value [...] Panel - Chemistry sodium, serum 142 mmol/L 573-946 1525/07/25 potassium, serum 4.0 mmol/L 3.5-5.2 chloride, serum 107 mmol/L 98-107 carbon dioxide, venous blood 31.6 mmol/L 21.0-32.0 blood glucose 108 mg/dL 65-110 calcium, serum 9.2 mg/dL 8.5-10.1 urea nitrogen, blood 20 mg/dL 7-18 creatinine, serum 0.92 mg/dL 0.55-1.30 sodium, serum 141 mmol/L 880-999 5950/11/11 potassium, serum 4.2 mmol/L 3.5-5.2 chloride, serum [...] (L) - Chemistry cholesterol, serum 177 mg/dL 716-555 2845/10/31 triglyceride, serum, fasting 64 mg/dL 30-200 HDL cholesterol, serum 77 mg/dL 32-96 LDL cholesterol, serum 87 mg/dL 0-130 TSH 2.13 m[iU]/mL 0.36-3.74 Lab Report: VITAMIN D, 25-HYDROXY/21682 - Chemistry vitamin D 25-hydroxy, serum 25 ng/mL 30-100 Encounters Code Encounter Date Provider Facility CPT-17986 Level 4 Est. Patient 17:31:07 CDT Marta Viramontes [facility] CPT-12293 Level 3 Est. Patient 05:11:40 CDT Rikki GRANADOS [facility] CPT-03326 Level 2 Est. Patient 14:30:43 ASSISTANT HAIRSTYLIST [facility] CPT-47589 Level 4 Est. Patient 09:14:36 ASSISTANT HAIRSTYLIST [facility] CPT-41001 Level 2 Est. Patient 09:07:32 CDT [facility] CPT-09913 Level 4 Est. Patient 11:55:00 CDT Rikki [facility]RANADOS [facility] CPT-79225 Level 3 Est. Patient 13:25:16 CDT Jennifer Chun MD PhD [facility] CPT-13313 Level 3 Est. Patient 17:31:22 CDT Solomon Alamo MD [facility] CPT-32793 Level 3 Est. Patient 08:02:14 CDT Solomon Alamo MD [facility] CPT-26430 Level 3 Est. Patient 17:23:53 CDT Rikki Stearns PA [facility] CPT-66616 Level 3 Est. Patient 11:22:41 CDT Darryn Hearn [facility] Procedures Code Procedure Name Date Entry Date Standard Description CPT-28177 Venipuncture Draw Fee 12:43:48 ASSISTANT HAIRSTYLIST CPT-93597 BMP - LAB USE ONLY 10:32:33 ASSISTANT HAIRSTYLIST CPT-70469 Venipuncture Draw Fee 10:32:33 ASSISTANT HAIRSTYLIST CPT-97482 Magnesium - LAB USE ONLY 09:54:30 CDT CPT-93568 TSH - LAB USE ONLY 09:54:30 CDT CPT-31038 Lipid - LAB USE ONLY 09:54:30 CDT CPT-90890 Venipuncture Draw Fee 09:54:29 CDT CPT-72898 Venipuncture Draw Fee 18:27:04 CDT CPT-88083 Chest 2V Frontal and Lat 10:57:00 ASSISTANT HAIRSTYLIST CPT-64401 Venipuncture Draw Fee 10:56:59 ASSISTANT HAIRSTYLIST CPT-75761 Venipuncture Draw Fee 09:22:28 ASSISTANT HAIRSTYLIST CPT-40038 Chest 2V Frontal and Lat 09:22:27 ASSISTANT HAIRSTYLIST CPT-I/D I/D Abscess 09:43:13 CDT CPT-04335 Venipuncture Draw Fee 08:16:46 ASSISTANT HAIRSTYLIST CPT-88939 Venipuncture Draw Fee 08:18:55 ASSISTANT HAIRSTYLIST CPT-66525 Venipuncture Draw Fee 08:31:18 ASSISTANT HAIRSTYLIST CPT-39334 Venipuncture Draw Fee 11:42:52 ASSISTANT HAIRSTYLIST CPT-38949 Venipuncture Draw Fee 13:26:37 ASSISTANT HAIRSTYLIST CPT-53383 Venipuncture Draw Fee 09:23:38 ASSISTANT HAIRSTYLIST CPT-000 Give Appropriate Tetanus Booster 10:23:50 CDT CPT-09778 Bone Density 08:28:45 CDT CPT-92331 Bone Density 11:35:15 CDT CPT-PV Prev. Care Visit 12:19:00 CDT CPT-85656 Venipuncture Draw Fee 15:02:58 CDT
--- OUTSIDE RECORDS SUMMARY | 2018-01-19 08:19 | XMS REPORT | Clinical Summary ---
Author Author Admin, E Organization [facility] Address Unknown Phone Unavailable Allergies, Adverse Reactions, Alerts Allergy Name Reaction Description Start Date Severity Status Provider SULFA facial swelling Critical Active Jocelyne Liliya DOCUMENTATION MANAGER Conditions or Problems Problem Name Problem Code Onset Date Status Entry Date Provider Comment Standard Description Annotate G E R D 530.81 Active Jocelyne Naff DOCUMENTATION MANAGER Esophageal reflux FH COLON CANCER V16.0 Active Jocelyne Naff DOCUMENTATION MANAGER Family history of malignant neoplasm of [...] TABS Take one by mouth daily ANASTROZOLE 38603729621 Active Jennifer Chun MD PhD Active ZITHROMAX 250 MG TAB 2 po today, then 1 po q days 2-5 AZITHROMYCIN 95355318301 No Longer Active Rikki Harms PA Active MECLIZINE HCL 25 MG TABS 1 prn MECLIZINE HCL 46356388733 No Longer Active Solomon Alamo MD Active CHERATUSSIN AC SYRP prn as directed GUAIFENESIN- CODEINE SYRP 92006173242 No Longer Active Rikki Harms PA Active MULTIVITAMINS TABS 1qd MULTIPLE VITAMIN 86244354632 No Longer Active Rikki Harms PA Active CLARITIN 10 MG TABS 1prn LORATADINE 48890485725 Active Jocelyne Naff DOCUMENTATION MANAGER Active ASPIRIN 81 MG TABS 1qd ASPIRIN 47758737725 Active Jocelyne Naff DOCUMENTATION MANAGER Active OMEPRAZOLE 20 MG CPDR 1 PO Q D OMEPRAZOLE 75850448340 Active Rikki Harms PA Active ZITHROMAX Z-CAROLYN 250 MG TABS 2x1day,4s2yudl AZITHROMYCIN 93832186245 No Longer Active Jocelyne Naff DOCUMENTATION MANAGER Active MULTIVITAMINS TABS 1qd MULTIVITAMINS TABS MULTIPLE VITAMIN Inactive CHERATUSSIN AC SYRP prn as directed CHERATUSSIN AC SYRP GUAIFENESIN-CODEINE SYRP Inactive MECLIZINE HCL 25 MG TABS 1 prn MECLIZINE HCL 25 MG TABS 395581 MECLIZINE HCL Inactive ZITHROMAX Z-CAROLYN 250 MG TABS 2x1day,4q8ksyw ZITHROMAX Z-CAROLYN 250 MG TABS 8576407 AZITHROMYCIN Inactive ZITHROMAX 250 MG TAB 2 po today, then 1 po q days 2-5 ZITHROMAX 250 MG TAB 3160151 AZITHROMYCIN Inactive Vital Signs Date Name Value [...] % 11.6-14.8 platelet count 131 10^3/MM^3 10*3/mm3 912-621 2748/12/12 leukocyte count, blood 28.6 10^3/MM^3 10*3/mm3 4.6-10.2 [...] % 11.6-14.8 platelet count 237 10^3/MM^3 10*3/mm3 685-616 8175/12/23 leukocyte count, blood 6.9 10^3/MM^3 10*3/mm3 4.6-10.2 [...] % 11.6-14.8 platelet count 360 10^3/MM^3 10*3/mm3 653-090 9042/12/31 leukocyte count, blood 5.3 10^3/MM^3 10*3/mm3 4.6-10.2 [...] % 11.6-14.8 platelet count 222 10^3/MM^3 10*3/mm3 891-793 5419/01/07 leukocyte count, blood 11.7 10^3/MM^3 10*3/mm3 4.6-10.2 [...] % 11.6-14.8 platelet count 191 10^3/MM^3 10*3/mm3 652-021 4319/01/20 leukocyte count, blood 9.8 10^3/MM^3 10*3/mm3 4.6-10.2 [...] % 11.6-14.8 platelet count 195 10^3/MM^3 10*3/mm3 421-503 4114/01/28 leukocyte count, blood 11.9 10^3/MM^3 10*3/mm3 4.6-10.2 [...] % 11.6-14.8 platelet count 278 10^3/MM^3 10*3/mm3 890-235 3175/02/04 leukocyte count, blood 8.5 10^3/MM^3 10*3/mm3 4.6-10.2 [...] % 11.6-14.8 platelet count 326 10^3/MM^3 10*3/mm3 311-678 8326/02/10 leukocyte count, blood 2.3 10^3/MM^3 10*3/mm3 4.6-10.2 [...] % 11.6-14.8 platelet count 240 10^3/MM^3 10*3/mm3 667-746 9286/02/17 leukocyte count, blood 3.4 10^3/MM^3 10*3/mm3 4.6-10.2 [...] % 11.6-14.8 platelet count 308 10^3/MM^3 10*3/mm3 050-456 9967/02/25 leukocyte count, blood 6.6 10^3/MM^3 10*3/mm3 4.6-10.2 [...] Panel - Chemistry sodium, serum 144 mmol/L 777-100 4158/12/16 potassium, serum 4.5 mmol/L 3.5-5.2 chloride, serum 107 mmol/L 98-107 carbon dioxide, venous blood 31.4 mmol/L 21.0-32.0 blood glucose 104 mg/dL 65-110 urea nitrogen, blood 17 mg/dL 7-18 creatinine, serum 1.10 mg/dL 0.60-1.30 alanine aminotransferase (SGPT), serum 25 U/L 12-78 aspartate aminotransferase (SGOT), serum 24 U/L 15-37 calcium, serum 8.4 mg/dL 8.5-10.1 bilirubin, serum, total 0.20 mg/dL 0.00-1.00 sodium, serum 141 mmol/L 421-861 2568/01/14 potassium, serum 4.9 mmol/L 3.5-5.2 chloride, serum [...] % 11.6-14.8 platelet count 376 10^3/MM^3 10*3/mm3 547-669 0323/12/16 leukocyte count, blood 19.5 10^3/MM^3 10*3/mm3 4.6-10.2 [...] count 239 10^3/MM^3 10*3/mm3 142-424 Lab Report: Comp. Metabolic Panel - Chemistry sodium, serum 141 mmol/L 263-933 3425/02/10 potassium, serum 5.2 mmol/L 3.5-5.2 chloride, serum [...] 0.00-1.00 Encounters Code Encounter Date Provider Facility CPT-13214 Level 3 Est. Patient 13:25:16 CDT Jennifer Chun MD PhD [facility] CPT-50802 Level 3 Est. Patient 17:31:22 CDT Solomon Alamo MD [facility] CPT-76332 Level 3 Est. Patient 08:02:14 CDT Solomon Alamo MD [facility] CPT-17345 Level 3 Est. Patient 17:23:53 CDT Rikki Stearns [facility] CPT-05891 Level 3 Est. Patient 11:22:41 CDT Darryn Hearn [facility] Procedures Code Procedure Name Date Entry Date Standard Description CPT-60147 Venipuncture Draw Fee 08:16:46 DEVELOPMENTAL THERAPIST CPT-79240 Venipuncture Draw Fee 08:18:55 DEVELOPMENTAL THERAPIST CPT-13799 Venipuncture Draw Fee 08:31:18 DEVELOPMENTAL THERAPIST CPT-79053 Venipuncture Draw Fee 11:42:52 DEVELOPMENTAL THERAPIST CPT-34747 Venipuncture Draw Fee 13:26:37 DEVELOPMENTAL THERAPIST CPT-62263 Venipuncture Draw Fee 09:23:38 DEVELOPMENTAL THERAPIST CPT-000 Give Appropriate Tetanus Booster 10:23:50 CDT CPT-27809 Bone Density 08:28:45 CDT CPT-47008 Bone Density 11:35:15 CDT CPT-PV Prev. Care Visit 12:19:00 CDT CPT-31415 Venipuncture Draw Fee 15:02:58 CDT
--- OUTSIDE RECORDS SUMMARY | 2018-01-19 08:21 | XMS REPORT | Clinical Summary ---
Author Author Admin, E Organization [facility] Address Unknown Phone Unavailable Allergies, Adverse Reactions, Alerts Allergy Name Reaction Description Start Date Severity Status Provider SULFA facial swelling Critical Active Jocelyne Naff ETHYLBENZENE CONVERTER OPERATOR Conditions or Problems Problem Name Problem Code Onset Date Status Entry Date Provider Comment Standard Description Annotate G E R D 530.81 Active Jocelyne Naff ETHYLBENZENE CONVERTER OPERATOR Esophageal reflux FH COLON CANCER V16.0 Active Jocelyne Naff ETHYLBENZENE CONVERTER OPERATOR Family history of malignant neoplasm of [...] deficiency Soft tissue infection 528.9 Active Rikki Daryn GRANADOS Other and unspecified diseases of the [...] cap by mouth twice daily DOXYCYCLINE HYCLATE 98597225435 No Longer Active Rikki Daryn PA Active VITAMIN D3 76209 UNIT CAPS 1 pill by mouth weekly, for vitamin D deficiency CHOLECALCIFEROL 57208964747 Active Jennifer Chun MD PhD Active ANASTROZOLE 1 MG ORAL TABS Take one by mouth daily ANASTROZOLE 02691876759 Active Jennifer Chun MD PhD Active ZITHROMAX 250 MG TAB 2 po today, then 1 po q days 2-5 AZITHROMYCIN 04212895875 No Longer Active Rikki Harms PA Active MECLIZINE HCL 25 MG TABS 1 prn MECLIZINE HCL 80512738531 No Longer Active Solomon Alamo MD Active CHERATUSSIN AC SYRP prn as directed GUAIFENESIN- CODEINE SYRP 77370869492 No Longer Active Rikki Harms PA Active MULTIVITAMINS TABS 1qd MULTIPLE VITAMIN 10143391012 No Longer Active Rikki Harms PA Active CLARITIN 10 MG TABS 1prn LORATADINE 60752126090 Active Jocelyne Naff ETHYLBENZENE CONVERTER OPERATOR Active ASPIRIN 81 MG TABS 1qd ASPIRIN 21168300919 Active Jocelyne Naff ETHYLBENZENE CONVERTER OPERATOR Active OMEPRAZOLE 20 MG CPDR 1 PO Q D OMEPRAZOLE 01664519910 Active Rikki Harms PA Active ZITHROMAX Z-CAROLYN 250 MG TABS 2x1day,1p2laev AZITHROMYCIN 60953480890 No Longer Active Jocelyne Lovell ETHYLBENZENE CONVERTER OPERATOR Active MULTIVITAMINS TABS 1qd MULTIVITAMINS TABS MULTIPLE VITAMIN Inactive CHERATUSSIN AC SYRP prn as directed CHERATUSSIN AC SYRP GUAIFENESIN-CODEINE SYRP Inactive MECLIZINE HCL 25 MG TABS 1 prn MECLIZINE HCL 25 MG TABS 968201 MECLIZINE HCL Inactive ZITHROMAX Z-CAROLYN 250 MG TABS 2x1day,8v7kzof ZITHROMAX Z-CAROLYN 250 MG TABS 2929331 AZITHROMYCIN Inactive ZITHROMAX 250 MG TAB 2 po today, then 1 po q days 2-5 ZITHROMAX 250 MG TAB 3571251 AZITHROMYCIN Inactive DOXYCYCLINE HYCLATE 100 MG CAP 1 cap by mouth twice daily DOXYCYCLINE HYCLATE 100 MG CAP 4795731 DOXYCYCLINE HYCLATE Inactive Vital Signs Date Name [...] % 11.6-14.8 platelet count 360 10^3/MM^3 10*3/mm3 344-561 3742/12/31 leukocyte count, blood 5.3 10^3/MM^3 10*3/mm3 4.6-10.2 [...] % 11.6-14.8 platelet count 222 10^3/MM^3 10*3/mm3 735-185 9423/01/07 leukocyte count, blood 11.7 10^3/MM^3 10*3/mm3 4.6-10.2 [...] % 11.6-14.8 platelet count 191 10^3/MM^3 10*3/mm3 912-941 1106/12/10 hemoglobin, blood 14.8 g/dL 12.0-16.0 hematocrit, blood 44.3 % 36.0-46.0 mean corpuscular volume, RBC 90 fL 80-97 mean corpuscular hemoglobin, RBC 30.1 pg 27.0-31.2 mean corpuscular hemoglobin concentration, RBC 33.5 G/DL % 31.8- 35.4 red blood cell distribution width 14.5 % 11.6-14.8 platelet count 131 10^3/MM^3 10*3/mm3 253-391 0978/12/12 leukocyte count, blood 28.6 10^3/MM^3 10*3/mm3 4.6-10.2 [...] % 11.6-14.8 platelet count 237 10^3/MM^3 10*3/mm3 474-888 5327/12/10 erythrocyte (RBC) count 4.93 10^6/MM^3 10*6/mm3 4.04-5.48 [...] % 11.6-14.8 platelet count 195 10^3/MM^3 10*3/mm3 217-871 1160/01/28 leukocyte count, blood 11.9 10^3/MM^3 10*3/mm3 4.6-10.2 [...] % 11.6-14.8 platelet count 278 10^3/MM^3 10*3/mm3 298-336 9324/02/04 leukocyte count, blood 8.5 10^3/MM^3 10*3/mm3 4.6-10.2 [...] % 11.6-14.8 platelet count 326 10^3/MM^3 10*3/mm3 153-963 3867/02/10 leukocyte count, blood 2.3 10^3/MM^3 10*3/mm3 4.6-10.2 [...] % 11.6-14.8 platelet count 240 10^3/MM^3 10*3/mm3 263-664 9175/02/17 leukocyte count, blood 3.4 10^3/MM^3 10*3/mm3 4.6-10.2 [...] % 11.6-14.8 platelet count 308 10^3/MM^3 10*3/mm3 588-661 0520/02/25 leukocyte count, blood 6.6 10^3/MM^3 10*3/mm3 4.6-10.2 [...] 0.20 mg/dL 0.00-1.00 sodium, serum 141 mmol/L 241-047 6663/01/14 potassium, serum 4.9 mmol/L 3.5-5.2 chloride, serum 107 mmol/L 98-107 carbon dioxide, venous blood 28.9 mmol/L 21.0-32.0 blood glucose 100 mg/dL 65-110 urea nitrogen, blood 19 mg/dL 7-18 creatinine, serum 0.90 mg/dL 0.60-1.30 alanine aminotransferase (SGPT), serum 28 U/L -78 aspartate aminotransferase (SGOT), serum 24 U/L 15-37 calcium, serum 8.2 mg/dL 8.5-10.1 bilirubin, serum, total 0.40 mg/dL 0.00-1.00 sodium, serum 144 mmol/L 172-747 4351/12/16 potassium, serum 4.5 mmol/L 3.5-5.2 Lab Report: [...] % 11.6-14.8 platelet count 239 10^3/MM^3 10*3/mm3 755-953 2911/01/14 leukocyte count, blood 6.7 10^3/MM^3 10*3/mm3 4.6-10.2 [...] Panel - Chemistry sodium, serum 140 mmol/L 278-291 5327/07/13 potassium, serum 4.5 mmol/L 3.5-5.2 chloride, serum 106 mmol/L 98-107 carbon dioxide, venous blood 27.7 mmol/L 21.0-32.0 blood glucose 105 mg/dL 65-110 urea nitrogen, blood 14 mg/dL 7-18 creatinine, serum 0.90 mg/dL 0.60-1.30 alanine aminotransferase (SGPT), serum 29 U/L 12-78 aspartate aminotransferase (SGOT), serum 22 U/L 15-37 calcium, serum 9.4 mg/dL 8.5-10.1 bilirubin, serum, total 0.70 mg/dL 0.00-1.00 cholesterol, serum 160 mg/dL 107-676 1134/07/13 triglyceride, serum, fasting 63 mg/dL 30-200 HDL [...] Panel - Chemistry sodium, serum 141 mmol/L 551-657 7263/02/10 potassium, serum 5.2 mmol/L 3.5-5.2 chloride, serum 106 mmol/L 98-107 carbon dioxide, venous blood 27.8 mmol/L 21.0-32.0 blood glucose 111 mg/dL 65-110 urea nitrogen, blood 18 mg/dL 7-18 creatinine, serum 0.90 mg/dL 0.60-1.30 alanine aminotransferase (SGPT), serum 29 U/L 12-78 aspartate aminotransferase (SGOT), serum 21 U/L 15-37 calcium, serum 8.3 mg/dL 8.5-10.1 bilirubin, serum, total 0.40 mg/dL 0.00-1.00 Lab Report: VITAMIN D, 25-HYDROXY/38634 - Chemistry vitamin D 25-hydroxy, serum 24 ng/mL 30-100 Encounters Code Encounter Date Provider Facility CPT-58925 Level 3 Est. Patient 13:25:16 CDT Jennifer Chun MD PhD [facility] CPT-36507 Level 3 Est. Patient 17:31:22 CDT Solomon Alamo MD [facility] CPT-10277 Level 3 Est. Patient 08:02:14 CDT Solomon Alamo MD [facility] CPT-55296 Level 3 Est. Patient 17:23:53 CDT Rikki GRANADOS [facility] CPT-70954 Level 3 Est. Patient 11:22:41 CDT Darryn Hearn [facility] Procedures Code Procedure Name Date Entry Date Standard Description CPT-I/D I/D Abscess 09:43:13 CDT CPT-30232 Venipuncture Draw Fee 08:16:46 SHANK CUTTER CPT-13572 Venipuncture Draw Fee 08:18:55 SHANK CUTTER CPT-09870 Venipuncture Draw Fee 08:31:18 SHANK CUTTER CPT-73990 Venipuncture Draw Fee 11:42:52 SHANK CUTTER CPT-78878 Venipuncture Draw Fee 13:26:37 SHANK CUTTER CPT-76263 Venipuncture Draw Fee 09:23:38 SHANK CUTTER CPT-000 Give Appropriate Tetanus Booster 10:23:50 CDT CPT-39490 Bone Density 08:28:45 CDT CPT-07852 Bone Density 11:35:15 CDT CPT-PV Prev. Care Visit 12:19:00 CDT CPT-13288 Venipuncture Draw Fee 15:02:58 CDT
--- OUTSIDE RECORDS SUMMARY | 2018-01-19 08:22 | XMS REPORT | Clinical Summary ---
Author Author Admin, E Organization 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 BENZONATATE 05947295477 No Longer Active Rikki Harms PA Active FLONASE ALLERGY RELIEF 50 MCG/ACT NASAL SUSP spray twice in each nostril one time daily FLUTICASONE PROPIONATE 41975360027 No Longer Active Rikki Harms PA Active TUSSIONEX PENNKINETIC ER 10-8 MG/5ML LQCR 5ml po q12hr PRN Cough HYDROCOD POLST-CHLORPHEN POLST 95526091696 No Longer Active Rikki Harms PA Active NIACIN ER 500 MG ORAL CR-TABS Take one twice daily NIACIN 98400938720 Active Rikki Harms PA Active ALBUTEROL SULFATE 0.083 % JOSEE REED one vial per nebulizer every 4-6 hours as needed ALBUTEROL SULFATE 42470596926 No Longer Active Rikki Harms PA Active CEPHALEXIN 500 MG ORAL CAPS Take one four times a day CEPHALEXIN 45925110710 Active Rikki Harms PA Active MEDROL (CAROLYN) 4 MG TABS 6 tabs on day 1, 5 tabs on day 2, 4 tabs on day 3, 3 tabs on day 4, 2 tabs on day 5, 1 tab on day 6 METHYLPREDNISOLONE 12755247603 No Longer Active Rikki Harms PA Active LEVAQUIN 750 MG TABS 1 po qd x 7 days LEVOFLOXACIN 18491087854 No Longer Active Rikki Harms PA Active LEVAQUIN 500 MG ORAL TABS Take one tablet daily LEVOFLOXACIN 43013030773 No Longer Active Rikki Harms PA Active PROAIR HFA 108 (90 BASE) MCG/ACT AERS 2 puffs four times a day as needed 2014 ALBUTEROL SULFATE 87711582424 Active Marta Yokum KEY ENTRY OPERATOR Active LEVAQUIN 500 MG TAB 1 tablet by mouth daily LEVOFLOXACIN 95820728285 No Longer Active Marta Yokum KEY ENTRY OPERATOR Active CHERATUSSIN AC 100-10 MG/5ML SYRP 1 tsp by mouth every 4 hours as needed for cough GUAIFENESIN-CODEINE 51190812067 No Longer Active Rikki Harms PA Active MUPIROCIN 2 % EXT OINT Use in each nostril in am and pm MUPIROCIN 24595774398 No Longer Active Rikki Harms PA Active DOXYCYCLINE HYCLATE 100 MG ORAL CAPS Take one bid DOXYCYCLINE HYCLATE 92417172975 No Longer Active Rikki Harms PA Active CLARITIN 10 MG TABS 1prn LORATADINE 71253147066 No Longer Active Jocelyne Naff ACCOUNTING MANAGER ASSISTANT CONTROLLER Active ASPIRIN 81 MG TABS 1qd ASPIRIN 90999979023 No Longer Active Jocelyne Naff ACCOUNTING MANAGER ASSISTANT CONTROLLER Active DOXYCYCLINE HYCLATE 100 MG CAP 1 cap by mouth twice daily DOXYCYCLINE HYCLATE 53759787254 No Longer Active Rikki Harms PA Active VITAMIN D3 54239 UNIT CAPS 1 pill by mouth weekly, for vitamin D deficiency CHOLECALCIFEROL 01880263188 No Longer Active Jennifer Chun MD PhD Active ANASTROZOLE 1 MG ORAL TABS Take one by mouth daily ANASTROZOLE 25855809238 Active Jennifer Chun MD PhD Active ZITHROMAX 250 MG TAB 2 po today, then 1 po q days 2-5 AZITHROMYCIN 21771656761 No Longer Active Rikki Harms PA Active MECLIZINE HCL 25 MG TABS 1 prn MECLIZINE HCL 36845136265 No Longer Active Solomon Alamo MD Active CHERATUSSIN AC SYRP prn as directed GUAIFENESIN- CODEINE SYRP 42818318678 No Longer Active Rikki Harms PA Active MULTIVITAMINS TABS 1qd MULTIPLE VITAMIN 20484500924 No Longer Active Rikki Harms PA Active OMEPRAZOLE 20 MG CPDR 1 PO Q D OMEPRAZOLE 95814711307 Active Rikki Harms PA Active ZITHROMAX Z-CAROLYN 250 MG TABS 2x1day,4e5ilvu AZITHROMYCIN 58141053556 No Longer Active Jocelynederic Lovell ACCOUNTING MANAGER ASSISTANT CONTROLLER Active MULTIVITAMINS TABS 1qd MULTIVITAMINS TABS MULTIPLE VITAMIN Inactive CHERATUSSIN AC SYRP prn as directed CHERATUSSIN AC SYRP GUAIFENESIN-CODEINE SYRP Inactive MECLIZINE HCL 25 MG TABS 1 prn MECLIZINE HCL 25 MG TABS 195266 MECLIZINE HCL Inactive ASPIRIN 81 MG TABS 1qd ASPIRIN 81 MG TABS ASPIRIN Inactive CLARITIN 10 MG TABS 1prn CLARITIN 10 MG TABS 822420 LORATADINE Inactive DOXYCYCLINE HYCLATE 100 MG ORAL CAPS Take one bid DOXYCYCLINE HYCLATE 100 MG ORAL CAPS 3050719 DOXYCYCLINE HYCLATE Inactive MUPIROCIN 2 % EXT OINT Use in each nostril in am and pm MUPIROCIN 2 % EXT OINT 394160 MUPIROCIN Inactive CHERATUSSIN AC 100-10 MG/5ML SYRP 1 tsp by mouth every 4 hours as needed for cough CHERATUSSIN AC 100-10 MG/5ML SYRP 257869 GUAIFENESIN-CODEINE Inactive LEVAQUIN 500 MG TAB 1 tablet by mouth daily LEVAQUIN 500 MG TAB 124799 LEVOFLOXACIN Inactive LEVAQUIN 500 MG ORAL TABS Take one tablet daily LEVAQUIN 500 MG ORAL TABS 169573 LEVOFLOXACIN Inactive LEVAQUIN 750 MG TABS 1 po qd x 7 days LEVAQUIN 750 MG TABS 998593 LEVOFLOXACIN Inactive ALBUTEROL SULFATE 0.083 % NEBU SOLN one vial per nebulizer every 4-6 hours as needed ALBUTEROL SULFATE 0.083 % NEBU SOLN 379342 ALBUTEROL SULFATE Inactive TUSSIONEX PENNKINETIC ER 10-8 MG/5ML LQCR 5ml po q12hr PRN Cough TUSSIONEX PENNKINETIC ER 10-8 MG/5ML LQCR HYDROCOD POLST- CHLORPHEN POLST Inactive FLONASE ALLERGY RELIEF 50 MCG/ACT NASAL SUSP spray twice in each nostril one time daily FLONASE ALLERGY RELIEF 50 MCG/ACT NASAL SUSP 643866 FLUTICASONE PROPIONATE Inactive BENZONATATE 200 MG ORAL CAPS One capsule tid. BENZONATATE 200 MG ORAL CAPS 583423 BENZONATATE Inactive ZITHROMAX Z-CAROLYN 250 MG TABS 2x1day,0f6paqt ZITHROMAX Z-CAROLYN 250 MG TABS 0632746 AZITHROMYCIN Inactive ZITHROMAX 250 MG TAB 2 po today, then 1 po q days 2-5 ZITHROMAX 250 MG TAB 3438161 AZITHROMYCIN Inactive VITAMIN D3 96281 UNIT CAPS 1 pill by mouth weekly, for vitamin D deficiency VITAMIN D3 34478 UNIT CAPS CHOLECALCIFEROL Inactive DOXYCYCLINE HYCLATE 100 MG CAP 1 cap by mouth twice daily DOXYCYCLINE HYCLATE 100 MG CAP 3152999 DOXYCYCLINE HYCLATE Inactive MEDROL (CAROLYN) 4 MG TABS 6 tabs on day 1, 5 tabs on day 2, 4 tabs on day 3, 3 tabs on day 4, 2 tabs on day 5, 1 tab on day 6 MEDROL ( CAROLYN) 4 MG TABS 473415 METHYLPREDNISOLONE Inactive Vital Signs Date Name Value [...] Panel - Chemistry sodium, serum 142 mmol/L 548-671 8790/07/25 potassium, serum 4.0 mmol/L 3.5-5.2 chloride, serum [...] % 11.6-14.8 platelet count 269 10^3/MM^3 10*3/mm3 043-680 1524/12/30 leukocyte count, blood 5.2 10^3/MM^3 10*3/mm3 4.6-10.2 [...] % 11.6-14.8 platelet count 200 10^3/MM^3 10*3/mm3 629-420 0942/11/18 leukocyte count, blood 8.5 10^3/MM^3 10*3/mm3 4.6-10.2 [...] % 11.6-14.8 platelet count 143 10^3/MM^3 10*3/mm3 594-653 8523/11/11 erythrocyte (RBC) count 3.87 10^6/MM^3 10*6/mm3 4.04-5.48 lymphocytes as percent of blood leukocytes 50.0 % 20.5-51.1 monocytes as percent of blood leukocytes 14.8 % 1.7-9.3 neutrophils as percent of blood leukocytes 21.1 % 42.2-75.2 leukocyte count, blood 2.0 10^3/MM^3 10*3/mm3 4.6-10.2 hemoglobin, blood 11.7 g/dL 12.0-16.0 hematocrit, blood 34.9 % 36.0-46.0 mean corpuscular volume, RBC 90 fL 80-97 mean corpuscular hemoglobin, RBC 30.4 pg 27.0-31.2 mean corpuscular hemoglobin concentration, RBC 33.6 G/DL % 31.8- 35.4 red blood cell distribution width 13.9 % 11.6-14.8 platelet count 203 10^3/MM^3 10*3/mm3 646-358 3513/11/25 leukocyte count, blood 2.1 10^3/MM^3 10*3/mm3 4.6-10.2 hematocrit, blood 37.1 % 36.0-46.0 mean corpuscular volume, RBC 90 fL 80-97 mean corpuscular hemoglobin, RBC 30.8 pg 27.0-31.2 mean corpuscular hemoglobin concentration, RBC 34.1 G/DL % 31.8- 35.4 red blood cell distribution width 14.6 % 11.6-14.8 platelet count 139 10^3/MM^3 10*3/mm3 369-847 8063/12/02 leukocyte count, blood 6.7 10^3/MM^3 10*3/mm3 4.6-10.2 [...] % 11.6-14.8 platelet count 258 10^3/MM^3 10*3/mm3 435-648 0329/11/25 neutrophils as percent of blood leukocytes 20.0 [...] % 11.6-14.8 platelet count 240 10^3/MM^3 10*3/mm3 153-838 9763/12/09 neutrophils as percent of blood leukocytes 67.9 [...] % 11.6-14.8 platelet count 158 10^3/MM^3 10*3/mm3 073-383 6163/12/16 neutrophils as percent of blood leukocytes 34.6 [...] % 11.6-14.8 platelet count 207 10^3/MM^3 10*3/mm3 081-527 2551/12/18 neutrophils as percent of blood leukocytes 37.0 [...] % 11.6-14.8 platelet count 183 10^3/MM^3 10*3/mm3 194-900 3811/12/23 neutrophils as percent of blood leukocytes 61.4 % 42.2-75.2 monocytes as percent of blood leukocytes 12.0 % 1.7-9.3 lymphocytes as percent of blood leukocytes 22.8 % 20.5-51.1 erythrocyte (RBC) count 3.37 10^6/MM^3 10*6/mm3 4.04-5.48 hemoglobin, blood 10.7 g/dL 12.0-16.0 Lab Report: CBC W/DIFF, Comp. Metabolic Panel - Chemistry sodium, serum 138 mmol/L 357-120 2282/11/04 carbon dioxide, venous blood 27.7 mmol/L 21.0-32.0 potassium, serum 4.9 mmol/L 3.5-5.2 chloride, serum 104 mmol/L 98-107 blood glucose 92 mg/dL 65-110 urea nitrogen, blood 24 mg/dL 7-18 creatinine, serum 0.95 mg/dL 0.55-1.30 alanine aminotransferase (SGPT), serum 34 U/L 12-78 aspartate aminotransferase (SGOT), serum 23 U/L 15-37 calcium, serum 8.9 mg/dL 8.5-10.1 bilirubin, serum, total 0.70 mg/dL 0.00-1.00 sodium, serum 140 mmol/L 155-841 2433/01/06 carbon dioxide, venous blood 27.2 mmol/L 21.0-32.0 potassium, serum 4.1 mmol/L 3.5-5.2 chloride, serum 105 mmol/L 98-107 blood glucose 70 mg/dL 65-110 urea nitrogen, blood 25 mg/dL 7-18 creatinine, serum 0.90 mg/dL 0.55-1.30 alanine aminotransferase (SGPT), serum 28 U/L - aspartate aminotransferase (SGOT), serum 20 U/L - calcium, serum 8.9 mg/dL 8.5-10.1 bilirubin, serum, total 0.40 mg/dL 0.00-1.00 sodium, serum 140 mmol/L 909-215 4518/01/13 carbon dioxide, venous blood 26.4 mmol/L 21.0-32.0 potassium, serum 4.2 mmol/L 3.5-5.2 chloride, serum 104 mmol/L 98-107 blood glucose 101 mg/dL 65-110 urea nitrogen, blood 18 mg/dL 7-18 creatinine, serum 0.80 mg/dL 0.55-1.30 alanine aminotransferase (SGPT), serum 28 U/L aspartate aminotransferase (SGOT), serum 24 U/L calcium, serum 8.7 mg/dL 8.5-10.1 bilirubin, serum, total 0.50 mg/dL 0.00-1.00 sodium, serum 142 mmol/L 469-370 3980/02/04 carbon dioxide, venous blood 24.9 mmol/L 21.0-32.0 [...] % 11.6-14.8 platelet count 216 10^3/MM^3 10*3/mm3 295-972 6405/01/13 leukocyte count, blood 5.2 10^3/MM^3 10*3/mm3 4.6-10.2 hematocrit, blood 36.2 % 36.0-46.0 mean corpuscular volume, RBC 96 fL 80-97 mean corpuscular hemoglobin, RBC 32.4 pg 27.0-31.2 mean corpuscular hemoglobin concentration, RBC 33.9 G/DL % 31.8- 35.4 red blood cell distribution width 20.5 % 11.6-14.8 platelet count 289 10^3/MM^3 10*3/mm3 286-908 4644/02/04 neutrophils as percent of blood leukocytes 58.7 % 42.2-75.2 monocytes as percent of blood leukocytes 6.8 % 1.7-9.3 lymphocytes as percent of blood leukocytes 28.5 % 20.5-51.1 erythrocyte (RBC) count 3.86 10^6/MM^3 10*6/mm3 4.04-5.48 hemoglobin, blood 12.7 g/dL 12.0-16.0 neutrophils as percent of blood leukocytes 61.2 % 42.2-75.2 monocytes as percent of blood leukocytes 7.1 % 1.7-9.3 lymphocytes as percent of blood leukocytes 22.9 % 20.5-51.1 erythrocyte (RBC) count 3.79 10^6/MM^3 10*6/mm3 4.04-5.48 hemoglobin, blood 12.3 g/dL 12.0-16.0 leukocyte count, blood 4.2 10^3/MM^3 10*3/mm3 4.6-10.2 hematocrit, blood 37.4 % 36.0-46.0 mean corpuscular volume, RBC 97 fL 80-97 mean corpuscular hemoglobin, RBC 32.8 pg 27.0-31.2 mean corpuscular hemoglobin concentration, RBC 33.9 G/DL % 31.8- 35.4 red blood cell distribution width 15.9 % 11.6-14.8 platelet count 271 10^3/MM^3 10*3/mm3 710-260 2105/11/04 erythrocyte (RBC) count 4.61 10^6/MM^3 10*6/mm3 4.04-5.48 [...] Lab Report: Comp. Metabolic Panel - Chemistry aspartate aminotransferase (SGOT), serum 22 U/L 15-37 calcium, serum 8.5 mg/dL 8.5-10.1 bilirubin, serum, total 0.30 mg/dL 0.00-1.00 carbon dioxide, venous blood 24.6 mmol/L 21.0-32.0 potassium, serum 4.1 mmol/L 3.5-5.2 chloride, serum 107 mmol/L 98-107 blood glucose 98 mg/dL 65-110 urea nitrogen, blood 22 mg/dL 7-18 sodium, serum 139 mmol/L 449-902 3137/12/30 creatinine, serum 0.81 mg/dL 0.55-1.30 alanine aminotransferase (SGPT), serum 29 U/L 12-78 aspartate aminotransferase (SGOT), serum 22 U/L 15-37 calcium, serum 8.8 mg/dL 8.5-10.1 bilirubin, serum, total 0.50 mg/dL 0.00-1.00 carbon dioxide, venous blood 28.2 mmol/L 21.0-32.0 potassium, serum 3.9 mmol/L 3.5-5.2 chloride, serum 105 mmol/L 98-107 blood glucose 91 mg/dL 65-110 urea nitrogen, blood 17 mg/dL 7-18 sodium, serum 141 mmol/L 006-147 4216/11/11 carbon dioxide, venous blood 26.8 mmol/L 21.0-32.0 potassium, serum 4.2 mmol/L 3.5-5.2 chloride, serum 106 mmol/L 98-107 blood glucose 95 mg/dL 65-110 urea nitrogen, blood 18 mg/dL 7-18 creatinine, serum 0.70 mg/dL 0.55-1.30 alanine aminotransferase (SGPT), serum 33 U/L sodium, serum 141 mmol/L 608-237 8834/12/02 carbon dioxide, venous blood 25.9 mmol/L 21.0-32.0 potassium, serum 4.7 mmol/L 3.5-5.2 chloride, serum 106 mmol/L 98-107 blood glucose 78 mg/dL 65-110 urea nitrogen, blood 24 mg/dL 7-18 creatinine, serum 0.75 mg/dL 0.55-1.30 alanine aminotransferase (SGPT), serum 31 U/L aspartate aminotransferase (SGOT), serum 20 U/L 15-37 calcium, serum 8.7 mg/dL 8.5-10.1 bilirubin, serum, total 0.30 mg/dL 0.00-1.00 urea nitrogen, blood 24 mg/dL 7- creatinine, serum 0.77 mg/dL 0.55-1.30 alanine aminotransferase (SGPT), serum 30 U/L aspartate aminotransferase (SGOT), serum 15 U/L 15-37 calcium, serum 8.3 mg/dL 8.5-10.1 bilirubin, serum, total 0.30 mg/dL 0.00-1.00 sodium, serum 139 mmol/L 613-075 5418/11/25 carbon dioxide, venous blood 27.9 mmol/L 21.0-32.0 potassium, serum 4.7 mmol/L 3.5-5.2 chloride, serum 105 mmol/L 98-107 blood glucose 94 mg/dL 65-110 urea nitrogen, blood 21 mg/dL 7-18 creatinine, serum 0.79 mg/dL 0.55-1.30 alanine aminotransferase (SGPT), serum 40 U/L aspartate aminotransferase (SGOT), serum 22 U/L -37 calcium, serum 8.5 mg/dL 8.5-10.1 bilirubin, serum, total 0.80 mg/dL 0.00-1.00 blood glucose 102 mg/dL 65-110 chloride, serum 106 mmol/L 98-107 potassium, serum 4.4 mmol/L 3.5-5.2 carbon dioxide, venous blood 26.2 mmol/L 21.0-32.0 sodium, serum 141 mmol/L 540-448 8024/12/23 sodium, serum 143 mmol/L 225-209 7916/12/23 creatinine, serum 0.77 mg/dL 0.55-1.30 alanine aminotransferase (SGPT), serum 28 U/L aspartate aminotransferase (SGOT), serum 20 U/L - calcium, serum 8.6 mg/dL 8.5-10.1 bilirubin, serum, total 0.30 mg/dL 0.00-1.00 sodium, serum 142 mmol/L 394-042 9020/12/09 creatinine, serum 0.88 mg/dL 0.55-1.30 alanine aminotransferase (SGPT), serum 31 U/L aspartate aminotransferase (SGOT), serum 18 U/L 15-37 calcium, serum 8.9 mg/dL 8.5-10.1 bilirubin, serum, total 0.40 mg/dL 0.00-1.00 sodium, serum 140 mmol/L 301-682 8471/12/16 carbon dioxide, venous blood 25.4 mmol/L 21.0-32.0 potassium, serum 4.1 mmol/L 3.5-5.2 chloride, serum 104 mmol/L 98-107 blood glucose 110 mg/dL 65-110 urea nitrogen, blood 24 mg/dL 7-18 creatinine, serum 0.87 mg/dL 0.55-1.30 alanine aminotransferase (SGPT), serum 35 U/L 12-78 aspartate aminotransferase (SGOT), serum 21 U/L 15-37 calcium, serum 8.4 mg/dL 8.5-10.1 bilirubin, serum, total 0.50 mg/dL 0.00-1.00 carbon dioxide, venous blood 28.5 mmol/L 21.0-32.0 potassium, serum 5.0 mmol/L 3.5-5.2 chloride, serum 109 mmol/L 98-107 blood glucose 91 mg/dL 65-110 urea nitrogen, blood 27 mg/dL 7-18 Encounters Code Encounter Date Provider Facility CPT-38426 Level 3 Est. Patient 05:11:40 CDT Rikki GRANADOS [facility] CPT-51373 Level 2 Est. Patient 14:30:43 DIRECTOR OF ASSESSING Marta Viramontes [facility] CPT-14344 Level 4 Est. Patient 09:14:36 DIRECTOR OF ASSESSING Rikki GRANADOS [facility] CPT-23382 Level 2 Est. Patient 09:07:32 CDT Marta Viramontes [facility] CPT-22845 Level 4 Est. Patient 11:55:00 CDT Rikki GRANADOS [facility] CPT-92714 Level 3 Est. Patient 13:25:16 CDT Jennifer Chun MD PhD [facility] CPT-20137 Level 3 Est. Patient 17:31:22 CDT Solomon Alamo MD [facility] CPT-32837 Level 3 Est. Patient 08:02:14 CDT Solomon Alamo MD [facility] CPT-85069 Level 3 Est. Patient 17:23:53 CDT Rikki GRANADOS [facility] CPT-22615 Level 3 Est. Patient 11:22:[address] [facility] Procedures Code Procedure Name Date Entry Date Standard Description CPT-12896 Venipuncture Draw Fee 18:27:04 CDT CPT-16303 Chest 2V Frontal and Lat 10:57:00 DIRECTOR OF ASSESSING CPT-23599 Venipuncture Draw Fee 10:56:59 DIRECTOR OF ASSESSING CPT-96501 Venipuncture Draw Fee 09:22:28 DIRECTOR OF ASSESSING CPT-75939 Chest 2V Frontal and Lat 09:22:27 DIRECTOR OF ASSESSING CPT-I/D I/D Abscess 09:43:13 CDT CPT-03277 Venipuncture Draw Fee 08:16:46 DIRECTOR OF ASSESSING CPT-64571 Venipuncture Draw Fee 08:18:55 DIRECTOR OF ASSESSING CPT-20600 Venipuncture Draw Fee 08:31:18 DIRECTOR OF ASSESSING CPT-09153 Venipuncture Draw Fee 11:42:52 DIRECTOR OF ASSESSING CPT-19596 Venipuncture Draw Fee 13:26:37 DIRECTOR OF ASSESSING CPT-02208 Venipuncture Draw Fee 09:23:38 DIRECTOR OF ASSESSING CPT-000 Give Appropriate Tetanus Booster 10:23:50 CDT CPT-66806 Bone Density 08:28:45 CDT CPT-87731 Bone Density 11:35:15 CDT CPT-PV Prev. Care Visit 12:19:00 CDT CPT-97673 Venipuncture Draw Fee 15:02:58 CDT
--- OUTSIDE RECORDS SUMMARY | 2018-01-19 08:23 | XMS REPORT | Clinical Summary ---
Author Author Admin, E Organization [facility] Address Unknown Phone Unavailable Allergies, Adverse Reactions, Alerts Allergy Name Reaction Description Start Date Severity Status Provider SULFA facial swelling Critical Active Jocelynederic Lovell LEADERSHIP DEVELOPMENT CONSULTANT Conditions or Problems Problem Name Problem Code Onset Date Status Entry Date Provider Comment Standard Description Annotate G E R D 530.81 Active Jocelyne Naff LEADERSHIP DEVELOPMENT CONSULTANT Esophageal reflux FH COLON CANCER V16.0 Active Jocelyne Naff LEADERSHIP DEVELOPMENT CONSULTANT Family history of malignant neoplasm of [...] TABS Take one by mouth daily ANASTROZOLE 83343981914 Active Jennifer Chun MD PhD Active ZITHROMAX 250 MG TAB 2 po today, then 1 po q days 2-5 AZITHROMYCIN 12672832975 No Longer Active Rikki Harms PA Active MECLIZINE HCL 25 MG TABS 1 prn MECLIZINE HCL 06400282488 No Longer Active Solomon Alamo MD Active CHERATUSSIN AC SYRP prn as directed GUAIFENESIN- CODEINE SYRP 21573314027 No Longer Active Rikki Harms PA Active MULTIVITAMINS TABS 1qd MULTIPLE VITAMIN 19973741028 No Longer Active Rikki Harms PA Active CLARITIN 10 MG TABS 1prn LORATADINE 79373685752 Active Jocelyne Naff LEADERSHIP DEVELOPMENT CONSULTANT Active ASPIRIN 81 MG TABS 1qd ASPIRIN 71907647480 Active Jocelyne Naff LEADERSHIP DEVELOPMENT CONSULTANT Active OMEPRAZOLE 20 MG CPDR 1 PO Q D OMEPRAZOLE 20396670888 Active Rikki Harms PA Active ZITHROMAX Z-CAROLYN 250 MG TABS 2x1day,2j5mdxp AZITHROMYCIN 20848149174 No Longer Active Jocelyne Naff LEADERSHIP DEVELOPMENT CONSULTANT Active MULTIVITAMINS TABS 1qd MULTIVITAMINS TABS MULTIPLE VITAMIN Inactive CHERATUSSIN AC SYRP prn as directed CHERATUSSIN AC SYRP GUAIFENESIN-CODEINE SYRP Inactive MECLIZINE HCL 25 MG TABS 1 prn MECLIZINE HCL 25 MG TABS 203050 MECLIZINE HCL Inactive ZITHROMAX Z-CAROLYN 250 MG TABS 2x1day,0f8whwe ZITHROMAX Z-CAROLYN 250 MG TABS 4843502 AZITHROMYCIN Inactive ZITHROMAX 250 MG TAB 2 po today, then 1 po q days 2-5 ZITHROMAX 250 MG TAB 7515319 AZITHROMYCIN Inactive Vital Signs Date Name Value [...] % 11.6-14.8 platelet count 131 10^3/MM^3 10*3/mm3 233-745 0350/12/12 leukocyte count, blood 28.6 10^3/MM^3 10*3/mm3 4.6-10.2 [...] % 11.6-14.8 platelet count 237 10^3/MM^3 10*3/mm3 709-172 8150/12/23 hemoglobin, blood 13.2 g/dL 12.0-16.0 hematocrit, blood 39.0 % 36.0-46.0 mean corpuscular volume, RBC 90 fL 80-97 mean corpuscular hemoglobin, RBC 30.5 pg 27.0-31.2 mean corpuscular hemoglobin concentration, RBC 33.9 G/DL % 31.8- 35.4 red blood cell distribution width 14.4 % 11.6-14.8 platelet count 360 10^3/MM^3 10*3/mm3 006-534 1278/12/31 leukocyte count, blood 5.3 10^3/MM^3 10*3/mm3 4.6-10.2 [...] % 11.6-14.8 platelet count 222 10^3/MM^3 10*3/mm3 652-831 9565/01/07 leukocyte count, blood 11.7 10^3/MM^3 10*3/mm3 4.6-10.2 [...] % 11.6-14.8 platelet count 191 10^3/MM^3 10*3/mm3 703-251 5450/12/23 erythrocyte (RBC) count 4.35 10^6/MM^3 10*6/mm3 4.04-5.48 lymphocytes as percent of blood leukocytes 30.4 % 20.5-51.1 monocytes as percent of blood leukocytes 8.6 % 1.7-9.3 neutrophils as percent of blood leukocytes 57.3 % 42.2-75.2 leukocyte count, blood 6.9 10^3/MM^3 10*3/mm3 4.6-10.2 leukocyte count, blood 9.8 10^3/MM^3 10*3/mm3 4.6-10.2 hematocrit, blood 39.0 % 36.0-46.0 mean corpuscular volume, RBC 90 fL 80-97 mean corpuscular hemoglobin, RBC 30.0 pg 27.0-31.2 mean corpuscular hemoglobin concentration, RBC 33.3 G/DL % 31.8- 35.4 red blood cell distribution width 15.9 % 11.6-14.8 platelet count 195 10^3/MM^3 10*3/mm3 803-893 9401/01/28 leukocyte count, blood 11.9 10^3/MM^3 10*3/mm3 4.6-10.2 [...] % 11.6-14.8 platelet count 278 10^3/MM^3 10*3/mm3 259-257 3874/01/20 neutrophils as percent of blood leukocytes 78.4 % 42.2-75.2 monocytes as percent of blood leukocytes 7.4 % 1.7-9.3 lymphocytes as percent of blood leukocytes 10.0 % 20.5-51.1 erythrocyte (RBC) count 4.32 10^6/MM^3 10*6/mm3 4.04-5.48 hemoglobin, blood 13.0 g/dL 12.0-16.0 leukocyte count, blood 8.5 10^3/MM^3 10*3/mm3 4.6-10.2 hematocrit, blood 36.8 % 36.0-46.0 mean corpuscular volume, RBC 93 fL 80-97 mean corpuscular hemoglobin, RBC 30.8 pg 27.0-31.2 mean corpuscular hemoglobin concentration, RBC 33.3 G/DL % 31.8- 35.4 red blood cell distribution width 17.3 % 11.6-14.8 platelet count 326 10^3/MM^3 10*3/mm3 147-773 0340/02/10 leukocyte count, blood 2.3 10^3/MM^3 10*3/mm3 4.6-10.2 [...] % 11.6-14.8 platelet count 240 10^3/MM^3 10*3/mm3 279-555 4509/02/17 leukocyte count, blood 3.4 10^3/MM^3 10*3/mm3 4.6-10.2 [...] 10*6/mm3 4.04-5.48 hemoglobin, blood 12.2 g/dL 12.0-16.0 lymphocytes as percent of blood leukocytes 46.9 % 20.5-51.1 erythrocyte (RBC) count 3.86 10^6/MM^3 10*6/mm3 4.04-5.48 hemoglobin, blood 11.6 g/dL 12.0-16.0 hematocrit, blood 35.2 % 36.0-46.0 mean corpuscular volume, RBC 91 fL 80-97 mean corpuscular hemoglobin, RBC 30.0 pg 27.0-31.2 mean corpuscular hemoglobin concentration, RBC 32.9 G/DL % 31.8- 35.4 red blood cell distribution width 18.8 % 11.6-14.8 platelet count 308 10^3/MM^3 10*3/mm3 535-265 3607/02/25 leukocyte count, blood 6.6 10^3/MM^3 10*3/mm3 4.6-10.2 [...] Panel - Chemistry sodium, serum 141 mmol/L 184-512 2751/01/14 potassium, serum 4.9 mmol/L 3.5-5.2 chloride, serum 107 mmol/L 98-107 carbon dioxide, venous blood 28.9 mmol/L 21.0-32.0 blood glucose 100 mg/dL 65-110 urea nitrogen, blood 19 mg/dL 7-18 creatinine, serum 0.90 mg/dL 0.60-1.30 alanine aminotransferase (SGPT), serum 28 U/L 12-78 aspartate aminotransferase (SGOT), serum 24 U/L 15-37 calcium, serum 8.2 mg/dL 8.5-10.1 bilirubin, serum, total 0.40 mg/dL 0.00-1.00 sodium, serum 144 mmol/L 069-337 0040/12/16 potassium, serum 4.5 mmol/L 3.5-5.2 chloride, serum [...] % 11.6-14.8 platelet count 376 10^3/MM^3 10*3/mm3 191-009 9973/12/16 leukocyte count, blood 19.5 10^3/MM^3 10*3/mm3 4.6-10.2 [...] Panel - Chemistry sodium, serum 141 mmol/L 824-289 9788/02/10 potassium, serum 5.2 mmol/L 3.5-5.2 chloride, serum [...] 0.00-1.00 Encounters Code Encounter Date Provider Facility CPT-71758 Level 3 Est. Patient 13:25:16 CDT Jennifer Chun MD PhD [facility] CPT-63447 Level 3 Est. Patient 17:31:22 CDT Solomon Alamo MD [facility] CPT-13260 Level 3 Est. Patient 08:02:14 CDT Solomon Alamo MD [facility] CPT-49139 Level 3 Est. Patient 17:23:53 CDT Rikki Stearns [facility] CPT-62303 Level 3 Est. Patient 11:22:41 CDT Darryn Hearn [facility] Procedures Code Procedure Name Date Entry Date Standard Description CPT-60301 Venipuncture Draw Fee 08:16:46 [facility] DRIVER CPT-17625 Venipuncture Draw Fee 08:18:55 [facility] DRIVER CPT-52213 Venipuncture Draw Fee 08:31:18 [facility] DRIVER CPT-70012 Venipuncture Draw Fee 11:42:52 [facility] DRIVER CPT-08806 Venipuncture Draw Fee 13:26:37 [facility] DRIVER CPT-84323 Venipuncture Draw Fee 09:23:38 [facility] DRIVER CPT-000 Give Appropriate Tetanus Booster 10:23:50 CDT CPT-58554 Bone Density 08:28:45 CDT CPT-78103 Bone Density 11:35:15 CDT CPT-PV Prev. Care Visit 12:19:00 CDT CPT-63080 Venipuncture Draw Fee 15:02:58 CDT
--- OUTSIDE RECORDS SUMMARY | 2018-01-19 08:24 | XMS REPORT | Clinical Summary ---
Author Author Admin, E Organization [facility] Address Unknown Phone Unavailable Allergies, Adverse Reactions, Alerts Allergy Name Reaction Description Start Date Severity Status Provider SULFA facial swelling Critical Active Jocelyne Naff HEALTH SAFETY ENGINEER Conditions or Problems Problem Name Problem Code Onset Date Status Entry Date Provider Comment Standard Description Annotate G E R D 530.81 Active Jocelyne Naff HEALTH SAFETY ENGINEER Esophageal reflux FH COLON CANCER V16.0 Active Jocelyne Naff HEALTH SAFETY ENGINEER Family history of malignant neoplasm of [...] Ingrown toenail, left 703.0 Resolved Marta Yokum VIDEO GAME PRODUCER Ingrowing nail cellulitis, finger, right 681.00 Active Marta Yokum VIDEO GAME PRODUCER Cellulitis and abscess of finger, unspecified Cough 786.2 Active Marta Yokum VIDEO GAME PRODUCER Cough Breast microcalcification ICD-793.81 Inactive Jennifer Chun [...] times a day as needed ALBUTEROL SULFATE 32259766208 Active Marta Yokum VIDEO GAME PRODUCER Active AUGMENTIN 875-125 MG ORAL TABLET Take one tablet twice a day with food 04/25 AMOXICILLIN-POT CLAVULANATE 67747318714 Active Marta Yokum VIDEO GAME PRODUCER Active TESSALON PERLES 100 MG ORAL CAPSULE 1 to 2 tablets by mouth 3 times daily as needed for cough BENZONATATE 23293737119 No Longer Active Marta Yokum VIDEO GAME PRODUCER Active AUGMENTIN 875-125 MG ORAL TABLET 1 po BID x 10 days AMOXICILLIN-POT CLAVULANATE 49270937188 No Longer Active Marta Yokum VIDEO GAME PRODUCER Active MEDROL 4 MG ORAL TABLET THERAPY PACK 6 tabs on day 1, 5 tabs on day 2, 4 tabs on day 3, 3 tabs on day 4, 2 tabs on day 5, 1 tab on day 6 METHYLPREDNISOLONE 51210387501 No Longer Active Marta Yokum VIDEO GAME PRODUCER Active TUSSIONEX PENNKINETIC ER 10-8 MG/5ML ORAL SUSPENSION EXTENDED RELEASE 5ml po q12hr PRN Cough HYDROCOD POLST-CHLORPHEN POLST 75174179487 Active Marta Viramontes APRN Active KEFLEX 500 MG ORAL CAPSULE 1 po qid CEPHALEXIN 91145300182 No Longer Active Marta Viramontes VIDEO GAME PRODUCER Active B COMPLEX 50 ORAL TABLET EXTENDED RELEASE B COMPLEX VITAMINS 03775159463 Active Marta Viramontes VIDEO GAME PRODUCER Active TUSSIONEX PENNKINETIC ER 10-8 MG/5ML ORAL SUSPENSION EXTENDED RELEASE 5ml po q12hr PRN Cough HYDROCOD POLST-CHLORPHEN POLST 65049756872 No Longer Active Marta Viramontes APRN Active VITAMIN D3 83427 UNIT ORAL CAPSULE 1 qWeek x 4 months for vitamin D deficiency CHOLECALCIFEROL 74119150825 Active Marta Viramontes APRN Active CEPHALEXIN 500 MG ORAL CAPSULE Take one four times a day CEPHALEXIN 26389007003 No Longer Active Marta Viramontes APRN Active BIOTIN 1000 MCG ORAL TABLET Take one daily BIOTIN 49918494105 Active Rikki Harms PA Active VITAMIN C 500 MG ORAL CAPSULE Take one daily ASCORBIC ACID 68200067896 Active Rikki Harms PA Active BENZONATATE 200 MG ORAL CAPSULE One capsule tid. BENZONATATE 39534697235 No Longer Active Rikki Harms PA Active FLONASE ALLERGY RELIEF 50 MCG/ACT NASAL SUSPENSION spray twice in each nostril one time daily FLUTICASONE PROPIONATE 05331488271 No Longer Active Rikki Harms PA Active TUSSIONEX PENNKINETIC ER 10-8 MG/5ML ORAL SUSPENSION EXTENDED RELEASE 5ml po q12hr PRN Cough HYDROCOD POLST-CHLORPHEN POLST 02143369807 No Longer Active Rikki Harms PA Active NIACIN ER 500 MG ORAL TABLET EXTENDED RELEASE Take one twice daily NIACIN 21138516187 Active Rikki Harms PA Active ALBUTEROL SULFATE (2.5 MG/3ML) 0.083% INHALATION NEBULIZATION SOLUTION one vial per nebulizer every 4-6 hours as needed ALBUTEROL SULFATE 51050942938 No Longer Active Rikki Harms PA Active MEDROL 4 MG ORAL TABLET THERAPY PACK 6 tabs on day 1, 5 tabs on day 2, 4 tabs on day 3, 3 tabs on day 4, 2 tabs on day 5, 1 tab on day 6 METHYLPREDNISOLONE 33789453410 No Longer Active Rikki Harms PA Active LEVAQUIN 750 MG ORAL TABLET 1 po qd x 7 days LEVOFLOXACIN 64615225272 No Longer Active Rikki Harms PA Active LEVAQUIN 500 MG ORAL TABLET Take one tablet daily LEVOFLOXACIN 71614568890 No Longer Active Rikki Harms PA Active PROAIR HFA 108 (90 Base) MCG/ACT INHALATION AEROSOL SOLUTION 2 puffs four times a day as needed ALBUTEROL SULFATE 59377050287 Active Marta Yokum VIDEO GAME PRODUCER Active LEVAQUIN 500 MG ORAL TABLET 1 tablet by mouth daily LEVOFLOXACIN 80553797916 No Longer Active Marta Yokum VIDEO GAME PRODUCER Active CHERATUSSIN AC 100-10 MG/5ML ORAL SYRUP 1 tsp by mouth every 4 hours as needed for cough GUAIFENESIN-CODEINE 88862095660 No Longer Active Rikik Harms PA Active MUPIROCIN 2 % EXTERNAL OINTMENT Use in each nostril in am and pm MUPIROCIN 70139322186 No Longer Active Rikki Harms PA Active DOXYCYCLINE HYCLATE 100 MG ORAL CAPSULE Take one bid DOXYCYCLINE HYCLATE 18759804742 No Longer Active Rikki Harms PA Active CLARITIN 10 MG ORAL TABLET 1prn LORATADINE 74260147480 No Longer Active Jocelyne Naff HEALTH SAFETY ENGINEER Active ASPIRIN 81 MG ORAL TABLET 1qd ASPIRIN 01680921504 No Longer Active Jocelyne Naff HEALTH SAFETY ENGINEER Active DOXYCYCLINE HYCLATE 100 MG ORAL CAPSULE 1 cap by mouth twice daily DOXYCYCLINE HYCLATE 96422363743 No Longer Active Rikki Harms PA Active VITAMIN D3 97561 UNIT ORAL CAPSULE 1 pill by mouth weekly, for vitamin D deficiency CHOLECALCIFEROL 68866232783 No Longer Active Jennifer Chun MD PhD Active ANASTROZOLE 1 MG ORAL TABLET Take one by mouth daily ANASTROZOLE 60684706953 Active Jennifer Chun MD PhD Active ZITHROMAX 250 MG ORAL TABLET 2 po today, then 1 po q days 2-5 AZITHROMYCIN 54346443566 No Longer Active Rikki Harms PA Active MECLIZINE HCL 25 MG ORAL TABLET 1 prn MECLIZINE HCL 26661966087 No Longer Active Solomon Alamo MD Active CHERATUSSIN AC SYRUP prn as directed GUAIFENESIN- CODEINE SYRP 60764864309 No Longer Active Rikki Harms PA Active MULTIVITAMINS TABS 1qd MULTIPLE VITAMIN 85748920906 No Longer Active Rikki Harms PA Active OMEPRAZOLE 20 MG ORAL CAPSULE DELAYED RELEASE 1 PO Q D OMEPRAZOLE 55461774881 Active Jocelyne Naff HEALTH SAFETY ENGINEER Active ZITHROMAX Z-CAROLYN 250 MG ORAL TABLET 2x1day,7b8enwp AZITHROMYCIN 43563396822 No Longer Active Jocelyne Naff HEALTH SAFETY ENGINEER Active MULTIVITAMINS TABS 1qd MULTIVITAMINS TABS MULTIPLE VITAMIN Inactive CHERATUSSIN AC SYRUP prn as directed CHERATUSSIN AC SYRUP GUAIFENESIN-CODEINE SYRP Inactive MECLIZINE HCL 25 MG ORAL TABLET 1 prn MECLIZINE HCL 25 MG ORAL TABLET 425203 MECLIZINE HCL Inactive ASPIRIN 81 MG ORAL TABLET 1qd ASPIRIN 81 MG ORAL TABLET 587792 ASPIRIN Inactive CLARITIN 10 MG ORAL TABLET 1prn CLARITIN 10 MG ORAL TABLET 148158 LORATADINE Inactive DOXYCYCLINE HYCLATE 100 MG ORAL CAPSULE Take one bid DOXYCYCLINE HYCLATE 100 MG ORAL CAPSULE 2668640 DOXYCYCLINE HYCLATE Inactive MUPIROCIN 2 % EXTERNAL OINTMENT Use in each nostril in am and pm MUPIROCIN 2 % EXTERNAL OINTMENT 029467 MUPIROCIN Inactive CHERATUSSIN AC 100-10 MG/5ML ORAL SYRUP 1 tsp by mouth every 4 hours as needed for cough CHERATUSSIN AC 100-10 MG/5ML ORAL SYRUP 167154 GUAIFENESIN-CODEINE Inactive LEVAQUIN 500 MG ORAL TABLET 1 tablet by mouth daily LEVAQUIN 500 MG ORAL TABLET 151107 LEVOFLOXACIN Inactive LEVAQUIN 500 MG ORAL TABLET Take one tablet daily LEVAQUIN 500 MG ORAL TABLET 144248 LEVOFLOXACIN Inactive LEVAQUIN 750 MG ORAL TABLET 1 po qd x 7 days LEVAQUIN 750 MG ORAL TABLET 116658 LEVOFLOXACIN Inactive ALBUTEROL SULFATE (2.5 MG/3ML) 0.083% INHALATION NEBULIZATION SOLUTION one vial per nebulizer every 4-6 hours as needed ALBUTEROL SULFATE (2.5 MG/3ML) 0.083% INHALATION NEBULIZATION SOLUTION 869119 ALBUTEROL SULFATE Inactive TUSSIONEX PENNKINETIC ER 10-8 MG/5ML ORAL SUSPENSION EXTENDED RELEASE 5ml po q12hr PRN Cough TUSSIONEX PENNKINETIC ER 10-8 MG/5ML ORAL SUSPENSION EXTENDED RELEASE HYDROCOD POLST-CHLORPHEN POLST Inactive FLONASE ALLERGY RELIEF 50 MCG/ACT NASAL SUSPENSION spray twice in each nostril one time daily FLONASE ALLERGY RELIEF 50 MCG/ ACT NASAL SUSPENSION 6847431 FLUTICASONE PROPIONATE Inactive BENZONATATE 200 MG ORAL CAPSULE One capsule tid. BENZONATATE 200 MG ORAL CAPSULE 569316 BENZONATATE Inactive CEPHALEXIN 500 MG ORAL CAPSULE Take one four times a day CEPHALEXIN 500 MG ORAL CAPSULE 932832 CEPHALEXIN Inactive TUSSIONEX PENNKINETIC ER 10-8 MG/5ML ORAL SUSPENSION EXTENDED RELEASE 5ml po q12hr PRN Cough TUSSIONEX PENNKINETIC ER 10-8 MG/5ML ORAL SUSPENSION EXTENDED RELEASE HYDROCOD POLST-CHLORPHEN POLST Inactive TESSALON PERLES 100 MG ORAL CAPSULE 1 to 2 tablets by mouth 3 times daily as needed for cough TESSALON PERLES 100 MG ORAL CAPSULE 321868 BENZONATATE Inactive ZITHROMAX Z-CAROLYN 250 MG ORAL TABLET 2x1day,9k2yxbl ZITHROMAX Z-CAROLYN 250 MG ORAL TABLET 746407 AZITHROMYCIN Inactive ZITHROMAX 250 MG ORAL TABLET 2 po today, then 1 po q days 2-5 ZITHROMAX 250 MG ORAL TABLET 970345 AZITHROMYCIN Inactive VITAMIN D3 04847 UNIT ORAL CAPSULE 1 pill by mouth weekly, for vitamin D deficiency VITAMIN D3 12704 UNIT ORAL CAPSULE CHOLECALCIFEROL Inactive DOXYCYCLINE HYCLATE 100 MG ORAL CAPSULE 1 cap by mouth twice daily DOXYCYCLINE HYCLATE 100 MG ORAL CAPSULE 8541989 DOXYCYCLINE HYCLATE Inactive MEDROL 4 MG ORAL TABLET THERAPY PACK 6 tabs on day 1, 5 tabs on day 2, 4 tabs on day 3, 3 tabs on day 4, 2 tabs on day 5, 1 tab on day 6 MEDROL 4 MG ORAL TABLET THERAPY PACK 445252 METHYLPREDNISOLONE Inactive KEFLEX 500 MG ORAL CAPSULE 1 po qid KEFLEX 500 MG ORAL CAPSULE 394345 CEPHALEXIN Inactive MEDROL 4 MG ORAL TABLET THERAPY PACK 6 tabs on day 1, 5 tabs on day 2, 4 tabs on day 3, 3 tabs on day 4, 2 tabs on day 5, 1 tab on day 6 MEDROL 4 MG ORAL TABLET THERAPY PACK 576101 METHYLPREDNISOLONE Inactive AUGMENTIN 875-125 MG ORAL TABLET 1 po BID x 10 days AUGMENTIN 875-125 MG ORAL TABLET 373939 AMOXICILLIN-POT CLAVULANATE Inactive Vital Signs Date Name [...] Measured Encounters Code Encounter Date Provider Facility CPT-72877 Level 3 Est. Patient 16:07:34 CDT [facility] CPT-03305 Level 3 Est. Patient 15:39:01 CDT [facility] [place] CPT-44404 Level 4 Est. Patient 17:31:07 [facility] Level 3 Est. Patient 05:11:40 CDT Rikki GRANADOS [facility] CPT-63177 Level 2 Est. Patient 14:30:43 DETENTION ATTENDANT Marta Viramontes [facility] [place] [facility] CPT-68630 Level 4 Est. Patient 09:14:36 DETENTION ATTENDANT Rikki GRANADOS [facility] CPT-27229 Level 2 Est. Patient 09:07:32 CDT Marta Ana M [facility] CPT-65214 Level 4 Est. Patient 11:55:00 CDT Rikki GRANADOS [facility] CPT-53770 Level 3 Est. Patient 13:25:16 CDT Jennifer Chun MD [facility] CPT-64000 Level 3 Est. Patient 17:31:22 CDT Solomon Alamo MD [facility] CPT-96400 Level 3 Est. Patient 08:02:14 CDT Solomon Alamo MD [facility] CPT-50404 Level 3 Est. Patient 17:23:53 CDT Rikki GRANADOS [facility] CPT-68281 Level 3 Est. Patient 11:22:41 CDT Darryn Hearn [facility] Procedures Code Procedure Name Date Entry Date Standard Description CPT-98625 Venipuncture Draw Fee 16:09:39 CDT CPT-31117 Venipuncture Draw Fee 12:43:48 DETENTION ATTENDANT CPT-24707 BMP - LAB USE ONLY 10:32:33 DETENTION ATTENDANT CPT-60867 Venipuncture Draw Fee 10:32:33 DETENTION ATTENDANT CPT-64862 Magnesium - LAB USE ONLY 09:54:30 CDT CPT-22788 TSH - LAB USE ONLY 09:54:30 CDT CPT-86886 Lipid - LAB USE ONLY 09:54:30 CDT CPT-54661 Venipuncture Draw Fee 09:54:29 CDT CPT-98023 Venipuncture Draw Fee 18:27:04 CDT CPT-16277 Chest 2V Frontal and Lat 10:57:00 DETENTION ATTENDANT CPT-92335 Venipuncture Draw Fee 10:56:59 DETENTION ATTENDANT CPT-06300 Venipuncture Draw Fee 09:22:28 DETENTION ATTENDANT CPT-26514 Chest 2V Frontal and Lat 09:22:27 DETENTION ATTENDANT CPT-I/D I/D Abscess 09:43:13 CDT CPT-02564 Venipuncture Draw Fee 08:16:46 DETENTION ATTENDANT CPT-36744 Venipuncture Draw Fee 08:18:55 DETENTION ATTENDANT CPT-61638 Venipuncture Draw Fee 08:31:18 DETENTION ATTENDANT CPT-07319 Venipuncture Draw Fee 11:42:52 DETENTION ATTENDANT CPT-02461 Venipuncture Draw Fee 13:26:37 DETENTION ATTENDANT CPT-07624 Venipuncture Draw Fee 09:23:38 DETENTION ATTENDANT CPT-000 Give Appropriate Tetanus Booster 10:23:50 CDT CPT-38299 Bone Density 08:28:45 CDT CPT-08680 Bone Density 11:35:15 CDT CPT-PV Prev. Care Visit 12:19:00 CDT CPT-42282 Venipuncture Draw Fee 15:02:58 CDT
--- OUTSIDE RECORDS SUMMARY | 2018-01-19 08:24 | XMS REPORT | Clinical Summary ---
Author Author Admin, E Organization [facility] Address Unknown Phone Unavailable Allergies, Adverse Reactions, Alerts Allergy Name Reaction Description Start Date Severity Status Provider SULFA facial swelling Critical Active Jocelyne Naff [employer] Conditions or Problems Problem Name Problem Code Onset Date Status Entry Date Provider Comment Standard Description Annotate G E R D 530.81 Active Jocelyne Naff [employer] Esophageal reflux FH COLON CANCER V16.0 Active Jocelyne Naff [employer] Family history of malignant neoplasm of gastrointestinal [...] Ingrown toenail, left 703.0 Resolved Marta Yokum DRIP MOLDER Ingrowing nail cellulitis, finger, right 681.00 Active Marta Yokum DRIP MOLDER Cellulitis and abscess of finger, unspecified Cough 786.2 Active Marta Yokum DRIP MOLDER Cough Breast microcalcification ICD-793.81 Inactive Jennifer Chun [...] Ingrown toenail, left ICD-703.0 Inactive Marta Yokum DRIP MOLDER Medication List Medication Instructions Start Date Stop Date Generic Name NDC Status Provider Patient Instruction AUGMENTIN 875-125 MG TAB 1 po BID x 10 days AMOXICILLIN-POT CLAVULANATE 61975202519 No Longer Active Marta Yokum DRIP MOLDER Active MEDROL (CAROLYN) 4 MG TABS 6 tabs on day 1, 5 tabs on day 2, 4 tabs on day 3, 3 tabs on day 4, 2 tabs on day 5, 1 tab on day 6 METHYLPREDNISOLONE [id number] No Longer Active Marta Yokum DRIP MOLDER Active TESSALON PERLES 100 MG CAP 1 to 2 tablets by mouth 3 times daily as needed for cough BENZONATATE 83247071021 Active Marta Yokum DRIP MOLDER Active TUSSIONEX PENNKINETIC ER 10-8 MG/5ML LQCR 5ml po q12hr PRN Cough HYDROCOD POLST-CHLORPHEN POLST 83139669104 Active Marta Yokum DRIP MOLDER Active KEFLEX 500 MG CAP 1 po qid CEPHALEXIN 27639305486 No Longer Active Marta Yokum DRIP MOLDER Active B COMPLEX 50 ORAL CR-TABS B COMPLEX VITAMINS 96366468128 Active Marta Viramontes DRIP MOLDER Active TUSSIONEX PENNKINETIC ER 10-8 MG/5ML LQCR 5ml po q12hr PRN Cough HYDROCOD POLST-CHLORPHEN POLST 59087547599 No Longer Active Marta Viramontes DRIP MOLDER Active VITAMIN D3 21642 UNIT CAPS 1 qWeek x 4 months for vitamin D deficiency 04/09 CHOLECALCIFEROL 14935331445 Active Marta Yoluisum DRIP MOLDER Active CEPHALEXIN 500 MG ORAL CAPS Take one four times a day CEPHALEXIN 99917380235 No Longer Active Marta Yoluisum DRIP MOLDER Active BIOTIN 1000 MCG ORAL TABS Take one daily BIOTIN 75594260543 Active Rikki Harms PA Active VITAMIN C 500 MG ORAL CAPS Take one daily ASCORBIC ACID 61478414409 Active Rikki Harms PA Active BENZONATATE 200 MG ORAL CAPS One capsule tid. BENZONATATE 35464219222 No Longer Active Rikki Harms PA Active FLONASE ALLERGY RELIEF 50 MCG/ACT NASAL SUSP spray twice in each nostril one time daily FLUTICASONE PROPIONATE 60341821896 No Longer Active Rikki Harms PA Active TUSSIONEX PENNKINETIC ER 10-8 MG/5ML LQCR 5ml po q12hr PRN Cough HYDROCOD POLST-CHLORPHEN POLST 86933335910 No Longer Active Rikki Harms PA Active NIACIN ER 500 MG ORAL CR-TABS Take one twice daily NIACIN 48905766347 Active Rikki Harms PA Active ALBUTEROL SULFATE 0.083 % NEBU SOLN one vial per nebulizer every 4-6 hours as needed ALBUTEROL SULFATE 13587093793 No Longer Active Rikki Harms PA Active MEDROL (CAROLYN) 4 MG TABS 6 tabs on day 1, 5 tabs on day 2, 4 tabs on day 3, 3 tabs on day 4, 2 tabs on day 5, 1 tab on day 6 METHYLPREDNISOLONE 80950177336 No Longer Active Rikki Harms PA Active LEVAQUIN 750 MG TABS 1 po qd x 7 days LEVOFLOXACIN 94900566013 No Longer Active Rikki Harms PA Active LEVAQUIN 500 MG ORAL TABS Take one tablet daily LEVOFLOXACIN 96581574881 No Longer Active Rikki Harms PA Active PROAIR HFA 108 (90 BASE) MCG/ACT AERS 2 puffs four times a day as needed 2014 ALBUTEROL SULFATE 78954366976 Active Marta Yokum DRIP MOLDER Active LEVAQUIN 500 MG TAB 1 tablet by mouth daily LEVOFLOXACIN 26869082246 No Longer Active Marta Yokum DRIP MOLDER Active CHERATUSSIN AC 100-10 MG/5ML SYRP 1 tsp by mouth every 4 hours as needed for cough GUAIFENESIN-CODEINE 98030326694 No Longer Active Rikki Harms PA Active MUPIROCIN 2 % EXT OINT Use in each nostril in am and pm MUPIROCIN 48826049061 No Longer Active Rikki Harms PA Active DOXYCYCLINE HYCLATE 100 MG ORAL CAPS Take one bid DOXYCYCLINE HYCLATE 39400392113 No Longer Active Rikki Harms PA Active CLARITIN 10 MG TABS 1prn LORATADINE 35021952652 No Longer Active Jocelyne Naff [employer] Active ASPIRIN 81 MG TABS 1qd ASPIRIN 17509817019 No Longer Active Jocelyne Naff [employer] Active DOXYCYCLINE HYCLATE 100 MG CAP 1 cap by mouth twice daily DOXYCYCLINE HYCLATE 56690878305 No Longer Active Rikki Harms PA Active VITAMIN D3 16169 UNIT CAPS 1 pill by mouth weekly, for vitamin D deficiency CHOLECALCIFEROL 51699014408 No Longer Active Jennifer Chun MD PhD Active ANASTROZOLE 1 MG ORAL TABS Take one by mouth daily ANASTROZOLE 61198565247 Active Jennifer Chun MD PhD Active ZITHROMAX 250 MG TAB 2 po today, then 1 po q days 2-5 AZITHROMYCIN 72681294015 No Longer Active Rikki Harms PA Active MECLIZINE HCL 25 MG TABS 1 prn MECLIZINE HCL 51902241420 No Longer Active Solomon Alamo MD Active CHERATUSSIN AC SYRP prn as directed GUAIFENESIN- CODEINE SYRP 28081539290 No Longer Active Rikki Harms PA Active MULTIVITAMINS TABS 1qd MULTIPLE VITAMIN 93601786488 No Longer Active Rikki Harms PA Active OMEPRAZOLE 20 MG CPDR 1 PO Q D OMEPRAZOLE 32918884037 Active Jocelyne Naff [employer] Active ZITHROMAX Z-CAROLYN 250 MG TABS 2x1day,[id number] AZITHROMYCIN 18907348804 No Longer Active Jocelyne Naff [employer] Active MULTIVITAMINS TABS 1qd MULTIVITAMINS TABS MULTIPLE VITAMIN Inactive CHERATUSSIN AC SYRP prn as directed CHERATUSSIN AC SYRP GUAIFENESIN-CODEINE SYRP Inactive MECLIZINE HCL 25 MG TABS 1 prn MECLIZINE HCL 25 MG TABS 534660 MECLIZINE HCL Inactive ASPIRIN 81 MG TABS 1qd ASPIRIN 81 MG TABS ASPIRIN Inactive CLARITIN 10 MG TABS 1prn CLARITIN 10 MG TABS 462757 LORATADINE Inactive DOXYCYCLINE HYCLATE 100 MG ORAL CAPS Take one bid DOXYCYCLINE HYCLATE 100 MG ORAL CAPS 7170836 DOXYCYCLINE HYCLATE Inactive MUPIROCIN 2 % EXT OINT Use in each nostril in am and pm MUPIROCIN 2 % EXT OINT 259644 MUPIROCIN Inactive CHERATUSSIN AC 100-10 MG/5ML SYRP 1 tsp by mouth every 4 hours as needed for cough CHERATUSSIN AC 100-10 MG/5ML SYRP 051314 GUAIFENESIN-CODEINE Inactive LEVAQUIN 500 MG TAB 1 tablet by mouth daily LEVAQUIN 500 MG TAB 786751 LEVOFLOXACIN Inactive LEVAQUIN 500 MG ORAL TABS Take one tablet daily LEVAQUIN 500 MG ORAL TABS 487946 LEVOFLOXACIN Inactive LEVAQUIN 750 MG TABS 1 po qd x 7 days LEVAQUIN 750 MG TABS 041293 LEVOFLOXACIN Inactive ALBUTEROL SULFATE 0.083 % NEBU SOLN one vial per nebulizer every 4-6 hours as needed ALBUTEROL SULFATE 0.083 % NEBU SOLN 549209 ALBUTEROL SULFATE Inactive TUSSIONEX PENNKINETIC ER 10-8 MG/5ML LQCR 5ml po q12hr PRN Cough TUSSIONEX PENNKINETIC ER 10-8 MG/5ML LQCR HYDROCOD POLST- CHLORPHEN POLST Inactive FLONASE ALLERGY RELIEF 50 MCG/ACT NASAL SUSP spray twice in each nostril one time daily FLONASE ALLERGY RELIEF 50 MCG/ACT NASAL SUSP 7762775 FLUTICASONE PROPIONATE Inactive BENZONATATE 200 MG ORAL CAPS One capsule tid. BENZONATATE 200 MG ORAL CAPS 347399 BENZONATATE Inactive CEPHALEXIN 500 MG ORAL CAPS Take one four times a day CEPHALEXIN 500 MG ORAL CAPS 828220 CEPHALEXIN Inactive TUSSIONEX PENNKINETIC ER 10-8 MG/5ML LQCR 5ml po q12hr PRN Cough TUSSIONEX PENNKINETIC ER 10-8 MG/5ML LQCR HYDROCOD POLST- CHLORPHEN POLST Inactive ZITHROMAX Z-CAROLYN 250 MG TABS 2x1day,6i3atpe ZITHROMAX Z-CAROLYN 250 MG TABS 7669864 AZITHROMYCIN Inactive ZITHROMAX 250 MG TAB 2 po today, then 1 po q days 2-5 ZITHROMAX 250 MG TAB 9863547 AZITHROMYCIN Inactive VITAMIN D3 97564 UNIT CAPS 1 pill by mouth weekly, for vitamin D deficiency VITAMIN D3 73014 UNIT CAPS CHOLECALCIFEROL Inactive DOXYCYCLINE HYCLATE 100 MG CAP 1 cap by mouth twice daily DOXYCYCLINE HYCLATE 100 MG CAP 7100532 DOXYCYCLINE HYCLATE Inactive MEDROL (CAROLYN) 4 MG TABS 6 tabs on day 1, 5 tabs on day 2, 4 tabs on day 3, 3 tabs on day 4, 2 tabs on day 5, 1 tab on day 6 MEDROL ( CAROLYN) 4 MG TABS 416816 METHYLPREDNISOLONE Inactive KEFLEX 500 MG CAP 1 po qid KEFLEX 500 MG CAP 915430 CEPHALEXIN Inactive MEDROL (CAROLYN) 4 MG TABS 6 tabs on day 1, 5 tabs on day 2, 4 tabs on day 3, 3 tabs on day 4, 2 tabs on day 5, 1 tab on day 6 MEDROL ( CAROLYN) 4 MG TABS 714276 METHYLPREDNISOLONE Inactive AUGMENTIN 875-125 MG TAB 1 po BID x 10 days AUGMENTIN 875-125 MG TAB 865274 AMOXICILLIN-POT CLAVULANATE Inactive Vital Signs Date Name [...] Panel - Chemistry sodium, serum 142 mmol/L 716-550 7767/07/25 potassium, serum 4.0 mmol/L 3.5-5.2 chloride, serum 107 mmol/L 98-107 carbon dioxide, venous blood 31.6 mmol/L 21.0-32.0 blood glucose 108 mg/dL 65-110 calcium, serum 9.2 mg/dL 8.5-10.1 urea nitrogen, blood 20 mg/dL 7-18 creatinine, serum 0.92 mg/dL 0.55-1.30 sodium, serum 141 mmol/L 045-890 4234/11/11 potassium, serum 4.2 mmol/L 3.5-5.2 chloride, serum 106 mmol/L 98-107 carbon dioxide, venous blood 29.1 mmol/L 21.0-32.0 blood glucose 95 mg/dL 65-110 calcium, serum 8.6 mg/dL 8.5-10.1 urea nitrogen, blood 23 mg/dL 7-18 creatinine, serum 0.83 mg/dL 0.55-1.30 Lab Report: Lipid Panel, Thyroid Stimulating Hormone (L) - Chemistry cholesterol, serum 177 mg/dL [phone]/10/31 triglyceride, serum, fasting 64 mg/dL 30-200 HDL cholesterol, serum 77 mg/dL 32-96 LDL cholesterol, serum 87 mg/dL 0-130 TSH 2.13 m[iU]/mL 0.36-3.74 Lab Report: VITAMIN D, 25-HYDROXY/61115 - Chemistry vitamin D 25-hydroxy, serum 25 ng/mL 30-100 Encounters Code Encounter Date Provider Facility CPT-09075 Level 3 Est. Patient 16:07:34 CDT Marta Viramontes [facility] CPT-47931 Level 3 Est. Patient 15:39:01 CDT Marta Viramontes [facility] CPT-54832 Level 4 Est. Patient 17:31:07 CDT Marta Caalelizabeth [facility] CPT-42030 Level 3 Est. Patient 05:11:40 CDT Rikki GRANADOS [facility]-29508 Level 2 Est. Patient 14:30:43 MANAGER MANAGED CARE Marta Viramontes [facility] CPT-77380 Level 4 Est. Patient 09:14:36 MANAGER MANAGED CARE Rikki GRANADOS [facility] CPT-27262 Level 2 Est. Patient 09:07:32 CDT Marta Viramontes [facility] CPT-52552 Level 4 Est. Patient 11:55:00 CDT Rikki Stearns [facility] CPT-34455 Level 3 Est. Patient 13:25:16 CDT Jennifer Chun MD PhD [facility] CPT-07376 Level 3 Est. Patient 17:31:22 CDT Solomon Alamo MD [facility] CPT-22081 Level 3 Est. Patient 08:02:14 CDT Solomon Alamo MD [facility] CPT-63416 Level 3 Est. Patient 17:23:53 CDT Rikki GRANADOS [facility] CPT-68878 Level 3 Est. Patient 11:22:41 CDT Darryn Hearn PA [facility] Procedures Code Procedure Name Date Entry Date Standard Description CPT-22410 Venipuncture Draw Fee 16:09:39 CDT CPT-56581 Venipuncture Draw Fee 12:43:48 MANAGER [employer]NA[employer] CPT-03340 BMP - LAB USE ONLY 10:32:33 MANAGER MANAG[employer] CPT-58566 Venipuncture Draw Fee 10:32:33 MANAGER [employer]NAG[employer] CPT-22777 Magnesium - LAB USE ONLY 09:54:30 CDT CPT-01407 TSH - LAB USE ONLY 09:54:30 CDT CPT-22685 Lipid - LAB USE ONLY 09:54:30 CDT CPT-54647 Venipuncture Draw Fee 09:54:29 CDT CPT-50095 Venipuncture Draw Fee 18:27:04 CDT CPT-23812 Chest 2V Frontal and Lat 10:57:00 MANAGER [employer]NA[employer] CPT-91898 Venipuncture Draw Fee 10:56:59 MANAGER MANAG[employer]ARE CPT-84342 Venipuncture Draw Fee 09:22:28 MANAGER MANAG[employer] CPT-57519 Chest 2V Frontal and Lat 09:22:27 MANAGER MANAGED CARE CPT-I/D I/D Abscess 09:43:13 CDT CPT-85529 Venipuncture Draw Fee 08:16:46 MANAGER MANAGED CARE CPT-13190 Venipuncture Draw Fee 08:18:55 MANAGER MANAGED CARE CPT-32818 Venipuncture Draw Fee 08:31:18 MANAGER MANAGED CARE CPT-95158 Venipuncture Draw Fee 11:42:52 MANAGER MANAGED [employer]ARE CPT-08710 Venipuncture Draw Fee 13:26:37 MANAGER MANAG[employer]ARE CPT-44546 Venipuncture Draw Fee 09:23:38 MANAGER MANAG[employer]ARE CPT-000 Give Appropriate Tetanus Booster 10:23:50 CDT CPT-84850 Bone Density 08:28:45 CDT CPT-40721 Bone Density 11:35:15 CDT CPT-PV Prev. Care Visit 12:19:00 CDT CPT-35020 Venipuncture Draw Fee 15:02:58 CDT
--- OUTSIDE RECORDS SUMMARY | 2018-01-19 08:25 | XMS REPORT | Clinical Summary ---
Author Author Admin, E Organization [facility] Address Unknown Phone Unavailable Allergies, Adverse Reactions, Alerts Allergy Name Reaction Description Start Date Severity Status Provider SULFA facial swelling Critical Active Jocelyne Naff [employer]INTENDENT Conditions or Problems Problem Name Problem Code Onset Date Status Entry Date Provider Comment Standard Description Annotate G E R D 530.81 Active Jocelyne Naff [employer] SUPERINTENDENT Esophageal reflux FH COLON CANCER V16.0 Active Jocelyne Naff [employer]ING SUPERINTENDENT Family history of malignant neoplasm of gastrointestinal [...] NDC Status Provider Patient Instruction VITAMIN D3 19686 UNIT CAPS 1 qWeek x 4 months for vitamin D deficiency 04/09 CHOLECALCIFEROL 35728574670 Active Marta Viramontes APRN Active CEPHALEXIN 500 MG ORAL CAPS Take one four times a day CEPHALEXIN 35807766610 No Longer Active Marta Viramontes APRN Active BIOTIN 1000 MCG ORAL TABS Take one daily BIOTIN 53684021688 Active Rikki Daryn GRANADOS Active VITAMIN C 500 MG ORAL CAPS Take one daily ASCORBIC ACID 53464683196 Active Rikki Harms PA Active BENZONATATE 200 MG ORAL CAPS One capsule tid. BENZONATATE 50304313739 No Longer Active Rikki Harms PA Active FLONASE ALLERGY RELIEF 50 MCG/ACT NASAL SUSP spray twice in each nostril one time daily FLUTICASONE PROPIONATE 56896705542 No Longer Active Rikki Harms PA Active TUSSIONEX PENNKINETIC ER 10-8 MG/5ML LQCR 5ml po q12hr PRN Cough HYDROCOD POLST-CHLORPHEN POLST 24599862106 No Longer Active Rikki Harms PA Active NIACIN ER 500 MG ORAL CR-TABS Take one twice daily NIACIN 10640123382 Active Rikki Harms PA Active ALBUTEROL SULFATE 0.083 % NEBU SOLN one vial per nebulizer every 4-6 hours as needed ALBUTEROL SULFATE 49794766425 No Longer Active Rikki Harms PA Active MEDROL (CAROLYN) 4 MG TABS 6 tabs on day 1, 5 tabs on day 2, 4 tabs on day 3, 3 tabs on day 4, 2 tabs on day 5, 1 tab on day 6 METHYLPREDNISOLONE 96989764939 No Longer Active Rikki Harms PA Active LEVAQUIN 750 MG TABS 1 po qd x 7 days LEVOFLOXACIN 99424372538 No Longer Active Rikki Harms PA Active LEVAQUIN 500 MG ORAL TABS Take one tablet daily LEVOFLOXACIN 38377549509 No Longer Active Rikki Harms PA Active PROAIR HFA 108 (90 BASE) MCG/ACT AERS 2 puffs four times a day as needed 2014 ALBUTEROL SULFATE 82436118099 Active Marta Yokum [employer] Active LEVAQUIN 500 MG TAB 1 tablet by mouth daily LEVOFLOXACIN 19132321468 No Longer Active Marta Yokum [employer] Active CHERATUSSIN AC 100-10 MG/5ML SYRP 1 tsp by mouth every 4 hours as needed for cough GUAIFENESIN-CODEINE 67900463492 No Longer Active Rikki Harms PA Active MUPIROCIN 2 % EXT OINT Use in each nostril in am and pm MUPIROCIN 54467990371 No Longer Active Rikki Harms PA Active DOXYCYCLINE HYCLATE 100 MG ORAL CAPS Take one bid DOXYCYCLINE HYCLATE 41864144201 No Longer Active Rikki Harms PA Active CLARITIN 10 MG TABS 1prn LORATADINE 67423887692 No Longer Active 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 ASPIRIN 81 MG TABS 1qd ASPIRIN 81041971055 No Longer Active 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 DOXYCYCLINE HYCLATE 100 MG CAP 1 cap by mouth twice daily DOXYCYCLINE HYCLATE 61358777532 No Longer Active Rikki Harms PA Active VITAMIN D3 76967 UNIT CAPS 1 pill by mouth weekly, for vitamin D deficiency CHOLECALCIFEROL 78595066722 No Longer Active Jennifer Chun MD PhD Active ANASTROZOLE 1 MG ORAL TABS Take one by mouth daily ANASTROZOLE 72039135200 Active Jennifer Chun MD PhD Active ZITHROMAX 250 MG TAB 2 po today, then 1 po q days 2-5 AZITHROMYCIN 61936488240 No Longer Active Rikki Harms PA Active MECLIZINE HCL 25 MG TABS 1 prn MECLIZINE HCL 75094163846 No Longer Active Solomon Alamo MD Active CHERATUSSIN AC SYRP prn as directed GUAIFENESIN- CODEINE SYRP 54576875326 No Longer Active Rikki Harms PA Active MULTIVITAMINS TABS 1qd MULTIPLE VITAMIN 65225237123 No Longer Active Rikki Harms PA Active OMEPRAZOLE 20 MG CPDR 1 PO Q D OMEPRAZOLE 25330926187 Active Rikki Harms PA Active ZITHROMAX Z-CAROLYN 250 MG TABS 2x1day,3e1duwb AZITHROMYCIN 36245890090 No Longer Active Jocelyne Lovell [employer]ILLING SUPERINTENDENT Active MULTIVITAMINS TABS 1qd MULTIVITAMINS TABS MULTIPLE VITAMIN Inactive CHERATUSSIN AC SYRP prn as directed CHERATUSSIN AC SYRP GUAIFENESIN-CODEINE SYRP Inactive MECLIZINE HCL 25 MG TABS 1 prn MECLIZINE HCL 25 MG TABS 449373 MECLIZINE HCL Inactive ASPIRIN 81 MG TABS 1qd ASPIRIN 81 MG TABS ASPIRIN Inactive CLARITIN 10 MG TABS 1prn CLARITIN 10 MG TABS 751639 LORATADINE Inactive DOXYCYCLINE HYCLATE 100 MG ORAL CAPS Take one bid DOXYCYCLINE HYCLATE 100 MG ORAL CAPS 1452912 DOXYCYCLINE HYCLATE Inactive MUPIROCIN 2 % EXT OINT Use in each nostril in am and pm MUPIROCIN 2 % EXT OINT 566283 MUPIROCIN Inactive CHERATUSSIN AC 100-10 MG/5ML SYRP 1 tsp by mouth every 4 hours as needed for cough CHERATUSSIN AC 100-10 MG/5ML SYRP 188751 GUAIFENESIN-CODEINE Inactive LEVAQUIN 500 MG TAB 1 tablet by mouth daily LEVAQUIN 500 MG TAB 886291 LEVOFLOXACIN Inactive LEVAQUIN 500 MG ORAL TABS Take one tablet daily LEVAQUIN 500 MG ORAL TABS 294006 LEVOFLOXACIN Inactive LEVAQUIN 750 MG TABS 1 po qd x 7 days LEVAQUIN 750 MG TABS 656959 LEVOFLOXACIN Inactive ALBUTEROL SULFATE 0.083 % NEBU SOLN one vial per nebulizer every 4-6 hours as needed ALBUTEROL SULFATE 0.083 % NEBU SOLN 615052 ALBUTEROL SULFATE Inactive TUSSIONEX PENNKINETIC ER 10-8 MG/5ML LQCR 5ml po q12hr PRN Cough TUSSIONEX PENNKINETIC ER 10-8 MG/5ML LQCR HYDROCOD POLST- CHLORPHEN POLST Inactive FLONASE ALLERGY RELIEF 50 MCG/ACT NASAL SUSP spray twice in each nostril one time daily FLONASE ALLERGY RELIEF 50 MCG/ACT NASAL SUSP 1559483 FLUTICASONE PROPIONATE Inactive BENZONATATE 200 MG ORAL CAPS One capsule tid. BENZONATATE 200 MG ORAL CAPS 862026 BENZONATATE Inactive CEPHALEXIN 500 MG ORAL CAPS Take one four times a day CEPHALEXIN 500 MG ORAL CAPS 465524 CEPHALEXIN Inactive ZITHROMAX Z-CAROLYN 250 MG TABS 2x1day,2l1akek ZITHROMAX Z-CAROLYN 250 MG TABS 6927926 AZITHROMYCIN Inactive ZITHROMAX 250 MG TAB 2 po today, then 1 po q days 2-5 ZITHROMAX 250 MG TAB 3380873 AZITHROMYCIN Inactive VITAMIN D3 91852 UNIT CAPS 1 pill by mouth weekly, for vitamin D deficiency VITAMIN D3 01142 UNIT CAPS CHOLECALCIFEROL Inactive DOXYCYCLINE HYCLATE 100 MG CAP 1 cap by mouth twice daily DOXYCYCLINE HYCLATE 100 MG CAP 2464102 DOXYCYCLINE HYCLATE Inactive MEDROL (CAROLYN) 4 MG TABS 6 tabs on day 1, 5 tabs on day 2, 4 tabs on day 3, 3 tabs on day 4, 2 tabs on day 5, 1 tab on day 6 MEDROL ( CAROLYN) 4 MG TABS 210624 METHYLPREDNISOLONE Inactive Vital Signs Date Name Value [...] Panel - Chemistry sodium, serum 142 mmol/L 665-133 9700/07/25 potassium, serum 4.0 mmol/L 3.5-5.2 chloride, serum [...] % 11.6-14.8 platelet count 269 10^3/MM^3 10*3/mm3 604-367 2001/12/16 leukocyte count, blood 3.2 10^3/MM^3 10*3/mm3 4.6-10.2 [...] % 11.6-14.8 platelet count 158 10^3/MM^3 10*3/mm3 665-099 0027/12/18 leukocyte count, blood 8.8 10^3/MM^3 10*3/mm3 4.6-10.2 [...] % 11.6-14.8 platelet count 207 10^3/MM^3 10*3/mm3 966-851 7854/12/23 leukocyte count, blood 6.2 10^3/MM^3 10*3/mm3 4.6-10.2 [...] % 11.6-14.8 platelet count 183 10^3/MM^3 10*3/mm3 364-849 1058/12/30 leukocyte count, blood 5.2 10^3/MM^3 10*3/mm3 4.6-10.2 [...] % 11.6-14.8 platelet count 200 10^3/MM^3 10*3/mm3 338-299 8445/11/11 leukocyte count, blood 2.0 10^3/MM^3 10*3/mm3 4.6-10.2 [...] % 11.6-14.8 platelet count 203 10^3/MM^3 10*3/mm3 569-393 8453/11/18 leukocyte count, blood 8.5 10^3/MM^3 10*3/mm3 4.6-10.2 [...] % 11.6-14.8 platelet count 143 10^3/MM^3 10*3/mm3 969-308 1489/11/25 leukocyte count, blood 2.1 10^3/MM^3 10*3/mm3 4.6-10.2 [...] % 11.6-14.8 platelet count 139 10^3/MM^3 10*3/mm3 761-892 5632/12/02 leukocyte count, blood 6.7 10^3/MM^3 10*3/mm3 4.6-10.2 [...] % 11.6-14.8 platelet count 258 10^3/MM^3 10*3/mm3 836-417 2916/12/09 leukocyte count, blood 5.3 10^3/MM^3 10*3/mm3 4.6-10.2 [...] Panel - Chemistry sodium, serum 138 mmol/L 256-247 2818/11/04 carbon dioxide, venous blood 27.7 mmol/L 21.0-32.0 potassium, serum 4.9 mmol/L 3.5-5.2 chloride, serum 104 mmol/L 98-107 blood glucose 92 mg/dL 65-110 urea nitrogen, blood 24 mg/dL 7-18 creatinine, serum 0.95 mg/dL 0.55-1.30 alanine aminotransferase (SGPT), serum 34 U/L aspartate aminotransferase (SGOT), serum 23 U/L 15-37 calcium, serum 8.9 mg/dL 8.5-10.1 bilirubin, serum, total 0.70 mg/dL 0.00-1.00 sodium, serum 140 mmol/L 738-583 2788/01/06 carbon dioxide, venous blood 27.2 mmol/L 21.0-32.0 potassium, serum 4.1 mmol/L 3.5-5.2 chloride, serum 105 mmol/L 98-107 blood glucose 70 mg/dL 65-110 urea nitrogen, blood 25 mg/dL 7-18 creatinine, serum 0.90 mg/dL 0.55-1.30 alanine aminotransferase (SGPT), serum 28 U/L -78 aspartate aminotransferase (SGOT), serum 20 U/L 15-37 calcium, serum 8.9 mg/dL 8.5-10.1 bilirubin, serum, total 0.40 mg/dL 0.00-1.00 sodium, serum 140 mmol/L 862-056 5971/01/13 carbon dioxide, venous blood 26.4 mmol/L 21.0-32.0 potassium, serum 4.2 mmol/L 3.5-5.2 chloride, serum 104 mmol/L 98-107 blood glucose 101 mg/dL 65-110 urea nitrogen, blood 18 mg/dL 7-18 creatinine, serum 0.80 mg/dL 0.55-1.30 alanine aminotransferase (SGPT), serum 28 U/L -78 aspartate aminotransferase (SGOT), serum 24 U/L 15-37 calcium, serum 8.7 mg/dL 8.5-10.1 bilirubin, serum, total 0.50 mg/dL 0.00-1.00 sodium, serum 142 mmol/L 299-895 1266/02/04 carbon dioxide, venous blood 24.9 mmol/L 21.0-32.0 [...] % 11.6-14.8 platelet count 297 10^3/MM^3 10*3/mm3 785-218 4328/02/04 leukocyte count, blood 4.2 10^3/MM^3 10*3/mm3 4.6-10.2 [...] % 11.6-14.8 platelet count 271 10^3/MM^3 10*3/mm3 419-889 9859/01/13 leukocyte count, blood 5.2 10^3/MM^3 10*3/mm3 4.6-10.2 [...] % 11.6-14.8 platelet count 289 10^3/MM^3 10*3/mm3 839-498 7418/11/04 leukocyte count, blood 3.8 10^3/MM^3 10*3/mm3 4.6-10.2 [...] Panel - Chemistry sodium, serum 141 mmol/L 054-443 2389/11/11 carbon dioxide, venous blood 26.8 mmol/L 21.0-32.0 potassium, serum 4.2 mmol/L 3.5-5.2 chloride, serum 106 mmol/L 98-107 blood glucose 95 mg/dL 65-110 urea nitrogen, blood 18 mg/dL 7-18 creatinine, serum 0.70 mg/dL 0.55-1.30 alanine aminotransferase (SGPT), serum 33 U/L - aspartate aminotransferase (SGOT), serum 22 U/L 15-37 calcium, serum 8.5 mg/dL 8.5-10.1 bilirubin, serum, total 0.30 mg/dL 0.00-1.00 sodium, serum 141 mmol/L 528-889 5829/11/18 carbon dioxide, venous blood 26.2 mmol/L 21.0-32.0 potassium, serum 4.4 mmol/L 3.5-5.2 chloride, serum 106 mmol/L 98-107 blood glucose 102 mg/dL 65-110 urea nitrogen, blood 24 mg/dL 7-18 creatinine, serum 0.77 mg/dL 0.55-1.30 alanine aminotransferase (SGPT), serum 30 U/L -78 aspartate aminotransferase (SGOT), serum 15 U/L 15-37 calcium, serum 8.3 mg/dL 8.5-10.1 bilirubin, serum, total 0.30 mg/dL 0.00-1.00 sodium, serum 139 mmol/L 781-073 7539/11/25 carbon dioxide, venous blood 27.9 mmol/L 21.0-32.0 potassium, serum 4.7 mmol/L 3.5-5.2 chloride, serum 105 mmol/L 98-107 blood glucose 94 mg/dL 65-110 urea nitrogen, blood 21 mg/dL 7-18 creatinine, serum 0.79 mg/dL 0.55-1.30 alanine aminotransferase (SGPT), serum 40 U/L -78 aspartate aminotransferase (SGOT), serum 22 U/L 15-37 calcium, serum 8.5 mg/dL 8.5-10.1 bilirubin, serum, total 0.80 mg/dL 0.00-1.00 sodium, serum 142 mmol/L 113-754 6365/12/09 carbon dioxide, venous blood 28.5 mmol/L 21.0-32.0 potassium, serum 5.0 mmol/L 3.5-5.2 chloride, serum 109 mmol/L 98-107 blood glucose 91 mg/dL 65-110 urea nitrogen, blood 27 mg/dL 7-18 creatinine, serum 0.88 mg/dL 0.55-1.30 alanine aminotransferase (SGPT), serum 31 U/L -78 aspartate aminotransferase (SGOT), serum 18 U/L 15-37 calcium, serum 8.9 mg/dL 8.5-10.1 bilirubin, serum, total 0.40 mg/dL 0.00-1.00 sodium, serum 140 mmol/L 427-128 6834/12/16 carbon dioxide, venous blood 25.4 mmol/L 21.0-32.0 potassium, serum 4.1 mmol/L 3.5-5.2 chloride, serum 104 mmol/L 98-107 blood glucose 110 mg/dL 65-110 urea nitrogen, blood 24 mg/dL 7-18 creatinine, serum 0.87 mg/dL 0.55-1.30 alanine aminotransferase (SGPT), serum 35 U/L aspartate aminotransferase (SGOT), serum 21 U/L - calcium, serum 8.4 mg/dL 8.5-10.1 bilirubin, serum, total 0.50 mg/dL 0.00-1.00 sodium, serum 141 mmol/L 840-602 2316/12/02 carbon dioxide, venous blood 25.9 mmol/L 21.0-32.0 potassium, serum 4.7 mmol/L 3.5-5.2 chloride, serum 106 mmol/L 98-107 blood glucose 78 mg/dL 65-110 urea nitrogen, blood 24 mg/dL 7- creatinine, serum 0.75 mg/dL 0.55-1.30 alanine aminotransferase (SGPT), serum 31 U/L aspartate aminotransferase (SGOT), serum 20 U/L -37 calcium, serum 8.7 mg/dL 8.5-10.1 bilirubin, serum, total 0.30 mg/dL 0.00-1.00 sodium, serum 139 mmol/L 107-030 0073/12/30 carbon dioxide, venous blood 28.2 mmol/L 21.0-32.0 potassium, serum 3.9 mmol/L 3.5-5.2 chloride, serum 105 mmol/L 98-107 blood glucose 91 mg/dL 65-110 urea nitrogen, blood 17 mg/dL 7-18 creatinine, serum 0.81 mg/dL 0.55-1.30 alanine aminotransferase (SGPT), serum 29 U/L aspartate aminotransferase (SGOT), serum 22 U/L -37 calcium, serum 8.8 mg/dL 8.5-10.1 bilirubin, serum, total 0.50 mg/dL 0.00-1.00 sodium, serum 143 mmol/L 053-521 8554/12/23 carbon dioxide, venous blood 24.6 mmol/L 21.0-32.0 [...] (L) - Chemistry cholesterol, serum 177 mg/dL 830-916 1095/10/31 triglyceride, serum, fasting 64 mg/dL 30-200 HDL cholesterol, serum 77 mg/dL 32-96 LDL cholesterol, serum 87 mg/dL 0-130 TSH 2.13 m[iU]/mL 0.36-3.74 Lab Report: VITAMIN D, 25-HYDROXY/89283 - Chemistry vitamin D 25-hydroxy, serum 25 ng/mL 30-100 Encounters Code Encounter Date Provider Facility CPT-82631 Level 4 Est. Patient 17:31:07 CDT Marta [facility] CPT-61953 Level 3 Est. Patient 05:11:40 CDT Rikki GRANADOS [facility] CPT-58525 Level 2 Est. Patient 14:30:43 [employer] Marta Viramontes [facility] CPT-51546 Level 4 Est. Patient 09:14:36 [employer] Rikki GRANADOS [facility] CPT-26175 Level 2 Est. Patient 09:07:32 CDT Marta Viramontes [place] [facility] CPT-87873 Level 4 Est. Patient 11:55:00 CDT Rikki GRANADOS [facility] CPT-19741 Level 3 Est. Patient 13:25:16 CDT Jennifer Chun MD PhD [facility] CPT-23281 Level 3 Est. Patient 17:31:22 CDT Solomon Alamo MD [facility] CPT-79929 Level 3 Est. Patient 08:02:14 CDT Solomon Alamo MD [facility] CPT-91046 Level 3 Est. Patient 17:23:53 CDT Rikki Stearns [facility] CPT-74561 Level 3 Est. Patient 11:22:41 CDT Darryn Hearn [facility] Procedures Code Procedure Name Date Entry Date Standard Description CPT-52798 Magnesium - LAB USE ONLY 09:54:30 CDT CPT-26570 TSH - LAB USE ONLY 09:54:30 CDT CPT-55245 Lipid - LAB USE ONLY 09:54:30 CDT CPT-44434 Venipuncture Draw Fee 09:54:29 CDT CPT-01832 Venipuncture Draw Fee 18:27:04 CDT CPT-36765 Chest 2V Frontal and Lat 10:57:00 [employer]ER [employer] CPT-11354 Venipuncture Draw Fee 10:56:59 [employer] CPT-61649 Venipuncture Draw Fee 09:22:28 T[employer]ER OFF [employer] CPT-59085 Chest 2V Frontal and Lat 09:22:27 TAKER OFF [employer] CPT-I/D I/D Abscess 09:43:13 CDT CPT-99754 Venipuncture Draw Fee 08:16:46 TAKER OFF [employer] CPT-71838 Venipuncture Draw Fee 08:18:55 T[employer]ER OFF [employer] CPT-32163 Venipuncture Draw Fee 08:31:18 TAKER OFF [employer] CPT-54431 Venipuncture Draw Fee 11:42:52 TAKER OFF [employer] CPT-97484 Venipuncture Draw Fee 13:26:37 TAKER OFF [employer] CPT-40147 Venipuncture Draw Fee 09:23:38 TAKER OFF [employer] CPT-000 Give Appropriate Tetanus Booster 10:23:50 CDT CPT-88602 Bone Density 08:28:45 CDT CPT-18676 Bone Density 11:35:15 CDT CPT-PV Prev. Care Visit 12:19:00 CDT CPT-39096 Venipuncture Draw Fee 15:02:58 CDT
--- OUTSIDE RECORDS SUMMARY | 2018-01-19 08:26 | XMS REPORT | Clinical Summary ---
Author Author Admin, E Organization [facility] Address Unknown Phone Unavailable Allergies, Adverse Reactions, Alerts Allergy Name Reaction Description Start Date Severity Status Provider SULFA facial swelling Critical Active Jocelyne Naff CAN PUSHER Conditions or Problems Problem Name Problem Code Onset Date Status Entry Date Provider Comment Standard Description Annotate G E R D 530.81 Active Jocelyne Naff CAN PUSHER Esophageal reflux FH COLON CANCER V16.0 Active Jocelyne Naff CAN PUSHER Family history of malignant neoplasm of gastrointestinal [...] Ingrown toenail, left 703.0 Resolved Marta Yokum SR. [employer] MANAGEMENT ASSOCIATE Ingrowing nail cellulitis, finger, right 681.00 Active Marta Yokum SR. V[employer]OR MANAGEMENT ASSOCIATE Cellulitis and abscess of finger, unspecified Breast [...] 500 MG CAP 1 po qid CEPHALEXIN 89982557236 Active Marta Viramontes APRN Active B COMPLEX 50 ORAL CR-TABS B COMPLEX VITAMINS 56166642305 Active Marta Viramontes APRN Active TUSSIONEX PENNKINETIC ER 10-8 MG/5ML LQCR 5ml po q12hr PRN Cough HYDROCOD POLST-CHLORPHEN POLST 94580995344 No Longer Active Marta Viramontes APRN Active VITAMIN D3 89688 UNIT CAPS 1 qWeek x 4 months for vitamin D deficiency 04/09 CHOLECALCIFEROL 48472772504 Active Marta Viramontes APRN Active CEPHALEXIN 500 MG ORAL CAPS Take one four times a day CEPHALEXIN 89767432765 No Longer Active Marta Viramontes APRN Active BIOTIN 1000 MCG ORAL TABS Take one daily BIOTIN 15020657398 Active Rikki GRANADOS Active VITAMIN C 500 MG ORAL CAPS Take one daily ASCORBIC ACID 70068437597 Active Rikki GRANADOS Active BENZONATATE 200 MG ORAL CAPS One capsule tid. BENZONATATE 97408340401 No Longer Active Rikki GRANADOS Active FLONASE ALLERGY RELIEF 50 MCG/ACT NASAL SUSP spray twice in each nostril one time daily FLUTICASONE PROPIONATE 65169259685 No Longer Active Rikki Harms PA Active TUSSIONEX PENNKINETIC ER 10-8 MG/5ML LQCR 5ml po q12hr PRN Cough HYDROCOD POLST-CHLORPHEN POLST 69571980191 No Longer Active Rikki Harms PA Active NIACIN ER 500 MG ORAL CR-TABS Take one twice daily NIACIN 33459450508 Active Rikki Harms PA Active ALBUTEROL SULFATE 0.083 % NEBU SOLN one vial per nebulizer every 4-6 hours as needed ALBUTEROL SULFATE 57913051673 No Longer Active Rikki Harms PA Active MEDROL (CAROLYN) 4 MG TABS 6 tabs on day 1, 5 tabs on day 2, 4 tabs on day 3, 3 tabs on day 4, 2 tabs on day 5, 1 tab on day 6 METHYLPREDNISOLONE 14536112344 No Longer Active Rikki Harms PA Active LEVAQUIN 750 MG TABS 1 po qd x 7 days LEVOFLOXACIN 21323426739 No Longer Active Rikki Harms PA Active LEVAQUIN 500 MG ORAL TABS Take one tablet daily LEVOFLOXACIN 99522057013 No Longer Active Rikki Harms PA Active PROAIR HFA 108 (90 BASE) MCG/ACT AERS 2 puffs four times a day as needed 2014 ALBUTEROL SULFATE 93154509219 Active Marta Yokum SR. VENDOR MANAGEMENT ASSOCIATE Active LEVAQUIN 500 MG TAB 1 tablet by mouth daily LEVOFLOXACIN 16500422224 No Longer Active Marta Yokum SR. VENDOR MANAGEMENT ASSOCIATE Active CHERATUSSIN AC 100-10 MG/5ML SYRP 1 tsp by mouth every 4 hours as needed for cough GUAIFENESIN-CODEINE 34811401568 No Longer Active Rikki Harms PA Active MUPIROCIN 2 % EXT OINT Use in each nostril in am and pm MUPIROCIN 89942629513 No Longer Active Rikki Harms PA Active DOXYCYCLINE HYCLATE 100 MG ORAL CAPS Take one bid DOXYCYCLINE HYCLATE 90265600386 No Longer Active Rikki Harms PA Active CLARITIN 10 MG TABS 1prn LORATADINE 55973208699 No Longer Active Jocelyne Naff CAN PUSHER Active ASPIRIN 81 MG TABS 1qd ASPIRIN 21780843077 No Longer Active Jocelyne Naff CAN PUSHER Active DOXYCYCLINE HYCLATE 100 MG CAP 1 cap by mouth twice daily DOXYCYCLINE HYCLATE 61857366701 No Longer Active Rikki Harms PA Active VITAMIN D3 73740 UNIT CAPS 1 pill by mouth weekly, for vitamin D deficiency CHOLECALCIFEROL 35210440347 No Longer Active Jennifer Chun MD PhD Active ANASTROZOLE 1 MG ORAL TABS Take one by mouth daily ANASTROZOLE 31259239753 Active Jennifer Chun MD PhD Active ZITHROMAX 250 MG TAB 2 po today, then 1 po q days 2-5 AZITHROMYCIN 98590181733 No Longer Active Rikki Harms PA Active MECLIZINE HCL 25 MG TABS 1 prn MECLIZINE HCL 52611766337 No Longer Active Solomon Alamo MD Active CHERATUSSIN AC SYRP prn as directed GUAIFENESIN- CODEINE SYRP 53359631605 No Longer Active Rikki Harms PA Active MULTIVITAMINS TABS 1qd MULTIPLE VITAMIN 64630854180 No Longer Active Rikki Harms PA Active OMEPRAZOLE 20 MG CPDR 1 PO Q D OMEPRAZOLE 62914037100 Active Jocelyne Naff CAN PUSHER Active ZITHROMAX Z-CAROLYN 250 MG TABS 2x1day,2i3iwpo AZITHROMYCIN 98628057652 No Longer Active Jocelyne Naff CAN PUSHER Active MULTIVITAMINS TABS 1qd MULTIVITAMINS TABS MULTIPLE VITAMIN Inactive CHERATUSSIN AC SYRP prn as directed CHERATUSSIN AC SYRP GUAIFENESIN-CODEINE SYRP Inactive MECLIZINE HCL 25 MG TABS 1 prn MECLIZINE HCL 25 MG TABS 240098 MECLIZINE HCL Inactive ASPIRIN 81 MG TABS 1qd ASPIRIN 81 MG TABS ASPIRIN Inactive CLARITIN 10 MG TABS 1prn CLARITIN 10 MG TABS 427412 LORATADINE Inactive DOXYCYCLINE HYCLATE 100 MG ORAL CAPS Take one bid DOXYCYCLINE HYCLATE 100 MG ORAL CAPS 8323066 DOXYCYCLINE HYCLATE Inactive MUPIROCIN 2 % EXT OINT Use in each nostril in am and pm MUPIROCIN 2 % EXT OINT 109815 MUPIROCIN Inactive CHERATUSSIN AC 100-10 MG/5ML SYRP 1 tsp by mouth every 4 hours as needed for cough CHERATUSSIN AC 100-10 MG/5ML SYRP 884309 GUAIFENESIN-CODEINE Inactive LEVAQUIN 500 MG TAB 1 tablet by mouth daily LEVAQUIN 500 MG TAB 227048 LEVOFLOXACIN Inactive LEVAQUIN 500 MG ORAL TABS Take one tablet daily LEVAQUIN 500 MG ORAL TABS 102508 LEVOFLOXACIN Inactive LEVAQUIN 750 MG TABS 1 po qd x 7 days LEVAQUIN 750 MG TABS 345681 LEVOFLOXACIN Inactive ALBUTEROL SULFATE 0.083 % NEBU SOLN one vial per nebulizer every 4-6 hours as needed ALBUTEROL SULFATE 0.083 % NEBU SOLN 541609 ALBUTEROL SULFATE Inactive TUSSIONEX PENNKINETIC ER 10-8 MG/5ML LQCR 5ml po q12hr PRN Cough TUSSIONEX PENNKINETIC ER 10-8 MG/5ML LQCR HYDROCOD POLST- CHLORPHEN POLST Inactive FLONASE ALLERGY RELIEF 50 MCG/ACT NASAL SUSP spray twice in each nostril one time daily FLONASE ALLERGY RELIEF 50 MCG/ACT NASAL SUSP 1493409 FLUTICASONE PROPIONATE Inactive BENZONATATE 200 MG ORAL CAPS One capsule tid. BENZONATATE 200 MG ORAL CAPS 590839 BENZONATATE Inactive CEPHALEXIN 500 MG ORAL CAPS Take one four times a day CEPHALEXIN 500 MG ORAL CAPS 102041 CEPHALEXIN Inactive TUSSIONEX PENNKINETIC ER 10-8 MG/5ML LQCR 5ml po q12hr PRN Cough TUSSIONEX PENNKINETIC ER 10-8 MG/5ML LQCR HYDROCOD POLST- CHLORPHEN POLST Inactive ZITHROMAX Z-CAROLYN 250 MG TABS 2x1day,5o8vxgg ZITHROMAX Z-CAROLYN 250 MG TABS 8714599 AZITHROMYCIN Inactive ZITHROMAX 250 MG TAB 2 po today, then 1 po q days 2-5 ZITHROMAX 250 MG TAB 5566159 AZITHROMYCIN Inactive VITAMIN D3 74686 UNIT CAPS 1 pill by mouth weekly, for vitamin D deficiency VITAMIN D3 07699 UNIT CAPS CHOLECALCIFEROL Inactive DOXYCYCLINE HYCLATE 100 MG CAP 1 cap by mouth twice daily DOXYCYCLINE HYCLATE 100 MG CAP 1804797 DOXYCYCLINE HYCLATE Inactive MEDROL (CAROLYN) 4 MG TABS 6 tabs on day 1, 5 tabs on day 2, 4 tabs on day 3, 3 tabs on day 4, 2 tabs on day 5, 1 tab on day 6 MEDROL ( CAROLYN) 4 MG TABS 241401 METHYLPREDNISOLONE Inactive Vital Signs Date Name Value [...] Panel - Chemistry sodium, serum 142 mmol/L 509-794 5569/07/25 potassium, serum 4.0 mmol/L 3.5-5.2 chloride, serum 107 mmol/L 98-107 carbon dioxide, venous blood 31.6 mmol/L 21.0-32.0 blood glucose 108 mg/dL 65-110 calcium, serum 9.2 mg/dL 8.5-10.1 urea nitrogen, blood 20 mg/dL 7-18 creatinine, serum 0.92 mg/dL 0.55-1.30 sodium, serum 141 mmol/L 117-943 6687/11/11 potassium, serum 4.2 mmol/L 3.5-5.2 chloride, serum 106 mmol/L 98-107 carbon dioxide, venous blood 29.1 mmol/L 21.0-32.0 blood glucose 95 mg/dL 65-110 calcium, serum 8.6 mg/dL 8.5-10.1 urea nitrogen, blood 23 mg/dL 7-18 creatinine, serum 0.83 mg/dL 0.55-1.30 Lab Report: Lipid Panel, Thyroid Stimulating Hormone (L) - Chemistry cholesterol, serum 177 mg/dL 433-855 1920/10/31 triglyceride, serum, fasting 64 mg/dL 30-200 HDL cholesterol, serum 77 mg/dL 32-96 LDL cholesterol, serum 87 mg/dL 0-130 TSH 2.13 m[iU]/mL 0.36-3.74 Lab Report: VITAMIN D, 25-HYDROXY/46068 - Chemistry vitamin D 25-hydroxy, serum 25 ng/mL 30-100 Encounters Code Encounter Date Provider Facility CPT-20803 Level 3 Est. Patient 15:39:01 CDT [facility] [place] CPT-65021 Level 4 Est. Patient 17:31:07 CDT Marta Viramontes [facility] [place] CPT-54715 Level 3 Est. Patient 05:11:40 CDT Rikki GRANADOS [facility] CPT-37992 Level 2 Est. Patient 14:30:43 [employer]CTIONAL SUPERVIS[employer] Marta Viramontes [facility] CPT-87722 Level 4 Est. Patient 09:14:36 [employer]CTIONAL SUPER[employer] Rikki GRANADOS [facility] CPT-73412 Level 2 Est. Patient 09:07:32 CDT Marta Viramontes [facility] CPT-23578 Level 4 Est. Patient 11:55:00 CDT Rikki GRANADOS [facility] CPT-39141 Level 3 Est. Patient 13:25:16 CDT Jennifer Chun MD PhD [facility] CPT-97827 Level 3 Est. Patient 17:31:22 CDT Solomon Alamo MD [facility]-97846 Level 3 Est. Patient 08:02:14 CDT Solomon Alamo MD [facility] CPT-31719 Level 3 Est. Patient 17:23:53 CDT Rikki Harms [facility] CPT-39482 Level 3 Est. Patient 11:22:41 CDT Darryn Hearn [facility] Procedures Code Procedure Name Date Entry Date Standard Description CPT-06341 Venipuncture Draw Fee 12:43:48 [employer] CPT-20637 BMP - LAB USE ONLY 10:32:33 [employer]AL [employer] CPT-86706 Venipuncture Draw Fee 10:32:33 [employer]AL [employer] CPT-56017 Magnesium - LAB USE ONLY 09:54:30 CDT CPT-48914 TSH - LAB USE ONLY 09:54:30 CDT CPT-30902 Lipid - LAB USE ONLY 09:54:30 CDT CPT-96986 Venipuncture Draw Fee 09:54:29 CDT CPT-13116 Venipuncture Draw Fee 18:27:04 CDT CPT-58759 Chest 2V Frontal and Lat 10:57:00 [employer] CPT-84000 Venipuncture Draw Fee 10:56:59 [employer] CPT-39573 Venipuncture Draw Fee 09:22:28 [employer]AL [employer] CPT-90317 Chest 2V Frontal and Lat 09:22:27 [employer]AL [employer] CPT-I/D I/D Abscess 09:43:13 CDT CPT-41082 Venipuncture Draw Fee 08:16:46 [employer] CPT-73501 Venipuncture Draw Fee 08:18:55 [employer]AL [employer] CPT-03671 Venipuncture Draw Fee 08:31:18 [employer]AL [employer] CPT-28801 Venipuncture Draw Fee 11:42:52 [employer]AL [employer] CPT-08757 Venipuncture Draw Fee 13:26:37 [employer]AL [employer] CPT-22057 Venipuncture Draw Fee 09:23:38 [employer]CTIONAL SU[employer] CPT-000 Give Appropriate Tetanus Booster 10:23:50 CDT CPT-98474 Bone Density 08:28:45 CDT CPT-14021 Bone Density 11:35:15 CDT CPT-PV Prev. Care Visit 12:19:00 CDT CPT-95334 Venipuncture Draw Fee 15:02:58 CDT
--- OUTSIDE RECORDS SUMMARY | 2018-01-19 08:27 | XMS REPORT | Clinical Summary ---
Author Author Admin, E Organization [facility] Address Unknown Phone Unavailable Allergies, Adverse Reactions, Alerts Allergy Name Reaction Description Start Date Severity Status Provider SULFA facial swelling Critical Active Jocelyne Naff CONTINUOUS IMPROVEMENT COACH Conditions or Problems Problem Name Problem Code Onset Date Status Entry Date Provider Comment Standard Description Annotate G E R D 530.81 Active Jocelyne Naff CONTINUOUS IMPROVEMENT COACH Esophageal reflux FH COLON CANCER V16.0 Active Jocelyne Naff CONTINUOUS IMPROVEMENT COACH Family history of malignant neoplasm of [...] (natural) Breast cancer 174.9 Resolved Marta Viramontes HOURLY MANAGER Malignant neoplasm of breast (female), unspecified Vitamin [...] Ingrown toenail, left 703.0 Resolved Marta Yokum HOURLY MANAGER Ingrowing nail cellulitis, finger, right 681.00 Resolved Marta Yokum HOURLY MANAGER Cellulitis and abscess of finger, unspecified Cough 786.2 Resolved Marta Yokum HOURLY MANAGER Cough Bronchitis, acute 466.0 Active Marta Yokum HOURLY MANAGER Acute bronchitis Breast microcalcification ICD-793.81 Inactive Jennifer Chun MD PhD Abnormal Mammogram ICD-793.80 Inactive Jennifer Chun MD PhD Breast cancer ICD-174.9 Inactive Marta Yokum HOURLY MANAGER Soft tissue infection ICD-528.9 Inactive Rikki Daryn PA Abscess, skin ICD-682.9 Inactive Rikki Harms PA Cellulitis, 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 Rikki Harms PA Rash ICD-782.1 Inactive Rikki Harms PA Upper respiratory infection, acute ICD-465.9 Inactive Rikki Harms PA Chemotherapy ICD-V58.11 Inactive Rikki Daryn PA Cough, chronic ICD-786.2 Inactive Rikki Daryn PA Ingrown toenail, left ICD-703.0 Inactive Marta Yokum HOURLY MANAGER cellulitis, finger, right ICD-681.00 Inactive Marta Yokum HOURLY MANAGER Cough ICD-786.2 Inactive Marta Yokum HOURLY MANAGER Medication List Medication Instructions Start Date Stop Date Generic Name NDC Status Provider Patient Instruction PROAIR HFA 108 (90 BASE) MCG/ACT INHALATION AEROSOL SOLUTION 2 puffs four times a day as needed ALBUTEROL SULFATE 86418335318 No Longer Active Marta Yokum HOURLY MANAGER Active DOXYCYCLINE HYCLATE 100 MG ORAL CAPSULE 1 cap by mouth twice daily DOXYCYCLINE HYCLATE 80297788446 No Longer Active Marta Yokum HOURLY MANAGER Active PROAIR HFA 108 (90 BASE) MCG/ACT INHALATION AEROSOL SOLUTION 2 puffs four times a day as needed ALBUTEROL SULFATE 89489369459 Active Marta Yokum HOURLY MANAGER Active AUGMENTIN 875-125 MG ORAL TABLET Take one tablet twice a day with food 04/25 AMOXICILLIN-POT CLAVULANATE 72787809284 No Longer Active Marta Yokum HOURLY MANAGER Active TESSALON PERLES 100 MG ORAL CAPSULE 1 to 2 tablets by mouth 3 times daily as needed for cough BENZONATATE 56407110606 No Longer Active Marta Yokum HOURLY MANAGER Active AUGMENTIN 875-125 MG ORAL TABLET 1 po BID x 10 days AMOXICILLIN-POT CLAVULANATE 57747713165 No Longer Active Marta Yokum HOURLY MANAGER Active MEDROL 4 MG ORAL TABLET THERAPY PACK 6 tabs on day 1, 5 tabs on day 2, 4 tabs on day 3, 3 tabs on day 4, 2 tabs on day 5, 1 tab on day 6 METHYLPREDNISOLONE 34100380642 No Longer Active Marta Yokum HOURLY MANAGER Active TUSSIONEX PENNKINETIC ER 10-8 MG/5ML ORAL SUSPENSION EXTENDED RELEASE 5ml po q12hr PRN Cough HYDROCOD POLST-CHLORPHEN POLST 02016268367 Active Marta Yokum HOURLY MANAGER Active KEFLEX 500 MG ORAL CAPSULE 1 po qid CEPHALEXIN 81889630079 No Longer Active Marta Yokum HOURLY MANAGER Active B COMPLEX 50 ORAL TABLET EXTENDED RELEASE B COMPLEX VITAMINS 71720905384 Active Marta Yokum HOURLY MANAGER Active TUSSIONEX PENNKINETIC ER 10-8 MG/5ML ORAL SUSPENSION EXTENDED RELEASE 5ml po q12hr PRN Cough HYDROCOD POLST-CHLORPHEN POLST 52100274021 No Longer Active Marta Yokum HOURLY MANAGER Active VITAMIN D3 27466 UNIT ORAL CAPSULE 1 qWeek x 4 months for vitamin D deficiency CHOLECALCIFEROL 91589521423 Active Marta Yokum HOURLY MANAGER Active CEPHALEXIN 500 MG ORAL CAPSULE Take one four times a day CEPHALEXIN 70988080530 No Longer Active Marta Yokum HOURLY MANAGER Active BIOTIN 1000 MCG ORAL TABLET Take one daily BIOTIN 77160703775 Active Rikki Harms PA Active VITAMIN C 500 MG ORAL CAPSULE Take one daily ASCORBIC ACID 16279827730 Active Rikki Harms PA Active BENZONATATE 200 MG ORAL CAPSULE One capsule tid. BENZONATATE 57930737729 No Longer Active Rikki Harms PA Active FLONASE ALLERGY RELIEF 50 MCG/ACT NASAL SUSPENSION spray twice in each nostril one time daily FLUTICASONE PROPIONATE 72003433298 No Longer Active Rikki Harms PA Active TUSSIONEX PENNKINETIC ER 10-8 MG/5ML ORAL SUSPENSION EXTENDED RELEASE 5ml po q12hr PRN Cough HYDROCOD POLST-CHLORPHEN POLST 60636016100 No Longer Active Rikki Harms PA Active NIACIN ER 500 MG ORAL TABLET EXTENDED RELEASE Take one twice daily NIACIN 20742549307 Active Rikki Harms PA Active ALBUTEROL SULFATE (2.5 MG/3ML) 0.083% INHALATION NEBULIZATION SOLUTION one vial per nebulizer every 4-6 hours as needed ALBUTEROL SULFATE 80744117808 No Longer Active Rikki Harms PA Active MEDROL 4 MG ORAL TABLET THERAPY PACK 6 tabs on day 1, 5 tabs on day 2, 4 tabs on day 3, 3 tabs on day 4, 2 tabs on day 5, 1 tab on day 6 METHYLPREDNISOLONE 30692670981 No Longer Active Rikki Harms PA Active LEVAQUIN 750 MG ORAL TABLET 1 po qd x 7 days LEVOFLOXACIN 20264429211 No Longer Active Rikki Harms PA Active LEVAQUIN 500 MG ORAL TABLET Take one tablet daily LEVOFLOXACIN 31644599030 No Longer Active Rikki Harms PA Active LEVAQUIN 500 MG ORAL TABLET 1 tablet by mouth daily LEVOFLOXACIN 89926556326 No Longer Active Marta Viramontes APRN Active CHERATUSSIN AC 100-10 MG/5ML ORAL SYRUP 1 tsp by mouth every 4 hours as needed for cough GUAIFENESIN-CODEINE 78036406401 No Longer Active Rikki Harms PA Active MUPIROCIN 2 % EXTERNAL OINTMENT Use in each nostril in am and pm MUPIROCIN 05603968912 No Longer Active Rikki Harms PA Active DOXYCYCLINE HYCLATE 100 MG ORAL CAPSULE Take one bid DOXYCYCLINE HYCLATE 84539386756 No Longer Active Rikki Harms PA Active CLARITIN 10 MG ORAL TABLET 1prn LORATADINE 74663520109 No Longer Active Jocelyne Naff CONTINUOUS IMPROVEMENT COACH Active ASPIRIN 81 MG ORAL TABLET 1qd ASPIRIN 90987402396 No Longer Active Jocelyne Naff CONTINUOUS IMPROVEMENT COACH Active DOXYCYCLINE HYCLATE 100 MG ORAL CAPSULE 1 cap by mouth twice daily DOXYCYCLINE HYCLATE 27897908569 No Longer Active Rikki Harms PA Active VITAMIN D3 61189 UNIT ORAL CAPSULE 1 pill by mouth weekly, for vitamin D deficiency CHOLECALCIFEROL 65491290013 No Longer Active Jennifer Chun MD PhD Active ANASTROZOLE 1 MG ORAL TABLET Take one by mouth daily ANASTROZOLE 23713699507 Active Jennifer Chun MD PhD Active ZITHROMAX 250 MG ORAL TABLET 2 po today, then 1 po q days 2-5 AZITHROMYCIN 40913436146 No Longer Active Rikki Harms PA Active MECLIZINE HCL 25 MG ORAL TABLET 1 prn MECLIZINE HCL 52211291959 No Longer Active Solomon Alamo MD Active CHERATUSSIN AC SYRUP prn as directed GUAIFENESIN- CODEINE SYRP 62615994609 No Longer Active Rikki Harms PA Active MULTIVITAMINS TABS 1qd MULTIPLE VITAMIN 49187728223 No Longer Active Rikki Harms PA Active OMEPRAZOLE 20 MG ORAL CAPSULE DELAYED RELEASE 1 PO Q D OMEPRAZOLE 27118153361 Active AMY Snow Active ZITHROMAX Z-CAROLYN 250 MG ORAL TABLET 2x1day,6a2dtnb AZITHROMYCIN 66065592761 No Longer Active Jocelyne Naff CONTINUOUS IMPROVEMENT COACH Active MULTIVITAMINS TABS 1qd MULTIVITAMINS TABS MULTIPLE VITAMIN Inactive CHERATUSSIN AC SYRUP prn as directed CHERATUSSIN AC SYRUP GUAIFENESIN-CODEINE SYRP Inactive MECLIZINE HCL 25 MG ORAL TABLET 1 prn MECLIZINE HCL 25 MG ORAL TABLET 048833 MECLIZINE HCL Inactive ASPIRIN 81 MG ORAL TABLET 1qd ASPIRIN 81 MG ORAL TABLET 428330 ASPIRIN Inactive CLARITIN 10 MG ORAL TABLET 1prn CLARITIN 10 MG ORAL TABLET 063333 LORATADINE Inactive DOXYCYCLINE HYCLATE 100 MG ORAL CAPSULE Take one bid DOXYCYCLINE HYCLATE 100 MG ORAL CAPSULE 6709273 DOXYCYCLINE HYCLATE Inactive MUPIROCIN 2 % EXTERNAL OINTMENT Use in each nostril in am and pm MUPIROCIN 2 % EXTERNAL OINTMENT 863085 MUPIROCIN Inactive CHERATUSSIN AC 100-10 MG/5ML ORAL SYRUP 1 tsp by mouth every 4 hours as needed for cough CHERATUSSIN AC 100-10 MG/5ML ORAL SYRUP 303349 GUAIFENESIN-CODEINE Inactive LEVAQUIN 500 MG ORAL TABLET 1 tablet by mouth daily LEVAQUIN 500 MG ORAL TABLET 974830 LEVOFLOXACIN Inactive LEVAQUIN 500 MG ORAL TABLET Take one tablet daily LEVAQUIN 500 MG ORAL TABLET 943552 LEVOFLOXACIN Inactive LEVAQUIN 750 MG ORAL TABLET 1 po qd x 7 days LEVAQUIN 750 MG ORAL TABLET 397548 LEVOFLOXACIN Inactive ALBUTEROL SULFATE (2.5 MG/3ML) 0.083% INHALATION NEBULIZATION SOLUTION one vial per nebulizer every 4-6 hours as needed ALBUTEROL SULFATE (2.5 MG/3ML) 0.083% INHALATION NEBULIZATION SOLUTION 409280 ALBUTEROL SULFATE Inactive TUSSIONEX PENNKINETIC ER 10-8 MG/5ML ORAL SUSPENSION EXTENDED RELEASE 5ml po q12hr PRN Cough TUSSIONEX PENNKINETIC ER 10-8 MG/5ML ORAL SUSPENSION EXTENDED RELEASE HYDROCOD POLST-CHLORPHEN POLST Inactive FLONASE ALLERGY RELIEF 50 MCG/ACT NASAL SUSPENSION spray twice in each nostril one time daily FLONASE ALLERGY RELIEF 50 MCG/ ACT NASAL SUSPENSION 3909459 FLUTICASONE PROPIONATE Inactive BENZONATATE 200 MG ORAL CAPSULE One capsule tid. BENZONATATE 200 MG ORAL CAPSULE 844864 BENZONATATE Inactive CEPHALEXIN 500 MG ORAL CAPSULE Take one four times a day CEPHALEXIN 500 MG ORAL CAPSULE 874189 CEPHALEXIN Inactive TUSSIONEX PENNKINETIC ER 10-8 MG/5ML ORAL SUSPENSION EXTENDED RELEASE 5ml po q12hr PRN Cough TUSSIONEX PENNKINETIC ER 10-8 MG/5ML ORAL SUSPENSION EXTENDED RELEASE HYDROCOD POLST-CHLORPHEN POLST Inactive TESSALON PERLES 100 MG ORAL CAPSULE 1 to 2 tablets by mouth 3 times daily as needed for cough TESSALON PERLES 100 MG ORAL CAPSULE 559552 BENZONATATE Inactive PROAIR HFA 108 (90 BASE) MCG/ACT INHALATION AEROSOL SOLUTION 2 puffs four times a day as needed PROAIR HFA 108 (90 BASE) MCG/ACT INHALATION AEROSOL SOLUTION ALBUTEROL SULFATE Inactive ZITHROMAX Z-CAROLYN 250 MG ORAL TABLET 2x1day,6r5ptib ZITHROMAX Z-CAROLYN 250 MG ORAL TABLET 095048 AZITHROMYCIN Inactive ZITHROMAX 250 MG ORAL TABLET 2 po today, then 1 po q days 2-5 ZITHROMAX 250 MG ORAL TABLET 771330 AZITHROMYCIN Inactive VITAMIN D3 77231 UNIT ORAL CAPSULE 1 pill by mouth weekly, for vitamin D deficiency VITAMIN D3 18500 UNIT ORAL CAPSULE CHOLECALCIFEROL Inactive DOXYCYCLINE HYCLATE 100 MG ORAL CAPSULE 1 cap by mouth twice daily DOXYCYCLINE HYCLATE 100 MG ORAL CAPSULE 5706047 DOXYCYCLINE HYCLATE Inactive MEDROL 4 MG ORAL TABLET THERAPY PACK 6 tabs on day 1, 5 tabs on day 2, 4 tabs on day 3, 3 tabs on day 4, 2 tabs on day 5, 1 tab on day 6 MEDROL 4 MG ORAL TABLET THERAPY PACK 914087 METHYLPREDNISOLONE Inactive KEFLEX 500 MG ORAL CAPSULE 1 po qid KEFLEX 500 MG ORAL CAPSULE 039151 CEPHALEXIN Inactive MEDROL 4 MG ORAL TABLET THERAPY PACK 6 tabs on day 1, 5 tabs on day 2, 4 tabs on day 3, 3 tabs on day 4, 2 tabs on day 5, 1 tab on day 6 MEDROL 4 MG ORAL TABLET THERAPY PACK 333657 METHYLPREDNISOLONE Inactive AUGMENTIN 875-125 MG ORAL TABLET 1 po BID x 10 days AUGMENTIN 875-125 MG ORAL TABLET 560623 AMOXICILLIN-POT CLAVULANATE Inactive AUGMENTIN 875-125 MG ORAL TABLET Take one tablet twice a day with food 04/25 AUGMENTIN 875-125 MG ORAL TABLET 648421 AMOXICILLIN-POT CLAVULANATE Inactive DOXYCYCLINE HYCLATE 100 MG ORAL CAPSULE 1 cap by mouth twice daily DOXYCYCLINE HYCLATE 100 MG ORAL CAPSULE 6597850 DOXYCYCLINE HYCLATE Inactive Vital Signs Date Name [...] Measured Encounters Code Encounter Date Provider Facility CPT-80549 Level 3 Est. Patient 22:53:06 APARTMENT MAINTENANCE MANAGER Marta Viramontes [facility]-96790 Level 3 Est. Patient 16:07:34 CDT Marta [facility] CPT-63471 Level 3 Est. Patient 15:39:01 [facility] Patient 17:31:07 CDT Marta Viramontes [facility]-94789 Level 3 Est. Patient 05:11:40 CDT Rikki GRANADOS [facility]-[address]80 Level 2 Est. Patient 14:30:43 APARTMENT MAINTENANCE MANAGER Marta Viramontes [facility] CPT-39082 Level 4 Est. Patient 09:14:36 APARTMENT MAINTENANCE MANAGER Rikki GRANADOS [facility] CPT-56702 Level 2 Est. Patient 09:07:32 CDT Marta Caalluisblas [facility] CPT-00545 Level 4 Est. Patient 11:55:00 CDT Rikki GRANADOS [facility] CPT-55802 Level 3 Est. Patient 13:25:16 CDT Jennifer Chun MD PhD [facility]-48417 Level 3 Est. Patient 17:31:22 CDT Solomon Alamo MD [facility]-57026 Level 3 Est. Patient 08:02:14 CDT Solomon Alamo MD [facility]-59995 Level 3 Est. Patient 17:23:53 CDT Rikki Stearns [facility] CPT-81138 Level 3 Est. Patient 11:22:41 CDT Darryn Hearn [facility] Procedures Code Procedure Name Date Entry Date Standard Description CPT-64358 Venipuncture Draw Fee 16:09:39 CDT CPT-92294 Venipuncture Draw Fee 12:43:48 APARTMENT MAINTENANCE MANAGER CPT-12615 BMP - LAB USE ONLY 10:32:33 APARTMENT MAINTENANCE MANAGER CPT-23313 Venipuncture Draw Fee 10:32:33 APARTMENT MAINTENANCE MANAGER CPT-02730 Magnesium - LAB USE ONLY 09:54:30 CDT CPT-97502 TSH - LAB USE ONLY 09:54:30 CDT CPT-24583 Lipid - LAB USE ONLY 09:54:30 CDT CPT-84669 Venipuncture Draw Fee 09:54:29 CDT CPT-63171 Venipuncture Draw Fee 18:27:04 CDT CPT-29930 Chest 2V Frontal and Lat 10:57:00 APARTMENT MAINTENANCE MANAGER CPT-26435 Venipuncture Draw Fee 10:56:59 APARTMENT MAINTENANCE MANAGER CPT-89571 Venipuncture Draw Fee 09:22:28 APARTMENT MAINTENANCE MANAGER CPT-47866 Chest 2V Frontal and Lat 09:22:27 APARTMENT MAINTENANCE MANAGER CPT-I/D I/D Abscess 09:43:13 CDT CPT-25410 Venipuncture Draw Fee 08:16:46 APARTMENT MAINTENANCE MANAGER CPT-67219 Venipuncture Draw Fee 08:18:55 APARTMENT MAINTENANCE MANAGER CPT-95616 Venipuncture Draw Fee 08:31:18 APARTMENT MAINTENANCE MANAGER CPT-59100 Venipuncture Draw Fee 11:42:52 APARTMENT MAINTENANCE MANAGER CPT-39186 Venipuncture Draw Fee 13:26:37 APARTMENT MAINTENANCE MANAGER CPT-90734 Venipuncture Draw Fee 09:23:38 APARTMENT MAINTENANCE MANAGER CPT-000 Give Appropriate Tetanus Booster 10:23:50 CDT CPT-82674 Bone Density 08:28:45 CDT CPT-34082 Bone Density 11:35:15 CDT CPT-PV Prev. Care Visit 12:19:00 CDT CPT-91541 Venipuncture Draw Fee 15:02:58 CDT
--- OUTSIDE RECORDS SUMMARY | 2018-01-19 08:27 | XMS REPORT | Clinical Summary ---
Author Author Admin, E Organization [facility] Address Unknown Phone Unavailable Allergies, Adverse Reactions, Alerts Allergy Name Reaction Description Start Date Severity Status Provider SULFA facial swelling Critical Active Jocelyne Liliya LEATHER CRAFTER Conditions or Problems Problem Name Problem Code Onset Date Status Entry Date Provider Comment Standard Description Annotate G E R D 530.81 Active Jocelyne Naff LEATHER CRAFTER Esophageal reflux FH COLON CANCER V16.0 Active Jocelyne Naff LEATHER CRAFTER Family history of malignant neoplasm of gastrointestinal [...] TABS Take one by mouth daily ANASTROZOLE 09542917878 Active Jennifer Chun MD PhD Active ZITHROMAX 250 MG TAB 2 po today, then 1 po q days 2-5 AZITHROMYCIN 23416992609 No Longer Active Rikki Harms PA Active MECLIZINE HCL 25 MG TABS 1 prn MECLIZINE HCL 29519138212 No Longer Active Solomon Alamo MD Active CHERATUSSIN AC SYRP prn as directed GUAIFENESIN- CODEINE SYRP 54989133624 No Longer Active Rikki Harms PA Active MULTIVITAMINS TABS 1qd MULTIPLE VITAMIN 71750140339 No Longer Active Rikki Harms PA Active CLARITIN 10 MG TABS 1prn LORATADINE 80186523428 Active Jocelyne Naff LEATHER CRAFTER Active ASPIRIN 81 MG TABS 1qd ASPIRIN 13370447687 Active Jocelyne Naff LEATHER CRAFTER Active OMEPRAZOLE 20 MG CPDR 1 PO Q D OMEPRAZOLE 72386769548 Active Rikki Harms PA Active ZITHROMAX Z-CAROLYN 250 MG TABS 2x1day,5j3mbna AZITHROMYCIN 45967358663 No Longer Active Jocelyne Naff LEATHER CRAFTER Active MULTIVITAMINS TABS 1qd MULTIVITAMINS TABS MULTIPLE VITAMIN Inactive CHERATUSSIN AC SYRP prn as directed CHERATUSSIN AC SYRP GUAIFENESIN-CODEINE SYRP Inactive MECLIZINE HCL 25 MG TABS 1 prn MECLIZINE HCL 25 MG TABS 339276 MECLIZINE HCL Inactive ZITHROMAX Z-CAROLYN 250 MG TABS 2x1day,6d9dnoz ZITHROMAX Z-CAROLYN 250 MG TABS 9626854 AZITHROMYCIN Inactive ZITHROMAX 250 MG TAB 2 po today, then 1 po q days 2-5 ZITHROMAX 250 MG TAB 4193653 AZITHROMYCIN Inactive Vital Signs Date Name Value [...] % 11.6-14.8 platelet count 131 10^3/MM^3 10*3/mm3 070-172 8220/12/12 leukocyte count, blood 28.6 10^3/MM^3 10*3/mm3 4.6-10.2 [...] % 11.6-14.8 platelet count 237 10^3/MM^3 10*3/mm3 991-245 6924/12/23 leukocyte count, blood 6.9 10^3/MM^3 10*3/mm3 4.6-10.2 [...] % 11.6-14.8 platelet count 360 10^3/MM^3 10*3/mm3 308-176 6489/12/31 leukocyte count, blood 5.3 10^3/MM^3 10*3/mm3 4.6-10.2 [...] % 11.6-14.8 platelet count 222 10^3/MM^3 10*3/mm3 032-407 5810/01/07 leukocyte count, blood 11.7 10^3/MM^3 10*3/mm3 4.6-10.2 [...] % 11.6-14.8 platelet count 191 10^3/MM^3 10*3/mm3 469-969 3242/01/20 leukocyte count, blood 9.8 10^3/MM^3 10*3/mm3 4.6-10.2 [...] % 11.6-14.8 platelet count 195 10^3/MM^3 10*3/mm3 778-794 8253/01/28 leukocyte count, blood 11.9 10^3/MM^3 10*3/mm3 4.6-10.2 [...] % 11.6-14.8 platelet count 278 10^3/MM^3 10*3/mm3 274-796 3952/02/04 leukocyte count, blood 8.5 10^3/MM^3 10*3/mm3 4.6-10.2 [...] % 11.6-14.8 platelet count 326 10^3/MM^3 10*3/mm3 249-714 7617/02/10 leukocyte count, blood 2.3 10^3/MM^3 10*3/mm3 4.6-10.2 [...] % 11.6-14.8 platelet count 240 10^3/MM^3 10*3/mm3 170-289 9228/02/17 leukocyte count, blood 3.4 10^3/MM^3 10*3/mm3 4.6-10.2 [...] % 11.6-14.8 platelet count 308 10^3/MM^3 10*3/mm3 133-440 3310/02/25 leukocyte count, blood 6.6 10^3/MM^3 10*3/mm3 4.6-10.2 [...] Panel - Chemistry sodium, serum 144 mmol/L 347-742 7910/12/16 potassium, serum 4.5 mmol/L 3.5-5.2 chloride, serum 107 mmol/L 98-107 carbon dioxide, venous blood 31.4 mmol/L 21.0-32.0 blood glucose 104 mg/dL 65-110 urea nitrogen, blood 17 mg/dL 7-18 creatinine, serum 1.10 mg/dL 0.60-1.30 alanine aminotransferase (SGPT), serum 25 U/L -78 aspartate aminotransferase (SGOT), serum 24 U/L 15-37 calcium, serum 8.4 mg/dL 8.5-10.1 bilirubin, serum, total 0.20 mg/dL 0.00-1.00 sodium, serum 141 mmol/L 114-362 2736/01/14 potassium, serum 4.9 mmol/L 3.5-5.2 chloride, serum [...] % 11.6-14.8 platelet count 376 10^3/MM^3 10*3/mm3 131-950 2413/12/16 leukocyte count, blood 19.5 10^3/MM^3 10*3/mm3 4.6-10.2 [...] Panel - Chemistry sodium, serum 140 mmol/L 051-810 0458/07/13 potassium, serum 4.5 mmol/L 3.5-5.2 chloride, serum 106 mmol/L 98-107 carbon dioxide, venous blood 27.7 mmol/L 21.0-32.0 blood glucose 105 mg/dL 65-110 urea nitrogen, blood 14 mg/dL 7-18 creatinine, serum 0.90 mg/dL 0.60-1.30 alanine aminotransferase (SGPT), serum 29 U/L 12-78 aspartate aminotransferase (SGOT), serum 22 U/L 15-37 calcium, serum 9.4 mg/dL 8.5-10.1 bilirubin, serum, total 0.70 mg/dL 0.00-1.00 cholesterol, serum 160 mg/dL 313-594 2446/07/13 triglyceride, serum, fasting 63 mg/dL 30-200 HDL [...] Panel - Chemistry sodium, serum 141 mmol/L 687-423 0877/02/10 potassium, serum 5.2 mmol/L 3.5-5.2 chloride, serum [...] 0.00-1.00 Encounters Code Encounter Date Provider Facility CPT-16319 Level 3 Est. Patient 13:25:16 CDT Jennifer Chun MD PhD [facility] CPT-54461 Level 3 Est. Patient 17:31:22 CDT Solomon Alamo MD [facility] CPT-42193 Level 3 Est. Patient 08:02:14 CDT Solomon Alamo MD [facility] CPT-29738 Level 3 Est. Patient 17:23:53 CDT Rikki GRANADOS [facility] [place] CPT-12073 Level 3 Est. Patient 11:22:41 CDT Darryn GRANADOS [facility] Procedures Code Procedure Name Date Entry Date Standard Description CPT-48920 Venipuncture Draw Fee 08:16:46 CAR SALESMAN CPT-35819 Venipuncture Draw Fee 08:18:55 CAR SALESMAN CPT-87835 Venipuncture Draw Fee 08:31:18 CAR SALESMAN CPT-69354 Venipuncture Draw Fee 11:42:52 CAR SALESMAN CPT-35869 Venipuncture Draw Fee 13:26:37 CAR SALESMAN CPT-39287 Venipuncture Draw Fee 09:23:38 CAR SALESMAN CPT-000 Give Appropriate Tetanus Booster 10:23:50 CDT CPT-67074 Bone Density 08:28:45 CDT CPT-39124 Bone Density 11:35:15 CDT CPT-PV Prev. Care Visit 12:19:00 CDT CPT-26148 Venipuncture Draw Fee 15:02:58 CDT
--- OUTSIDE RECORDS SUMMARY | 2018-01-19 08:29 | XMS REPORT | Clinical Summary ---
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 RELATIONSHIP MANAGER Conditions or Problems Problem Name Problem Code Onset Date Status Entry Date Provider Comment Standard Description Annotate G E R D 530.81 Active Jocelyne Naff SENIOR RELATIONSHIP MANAGER Esophageal reflux FH COLON CANCER V16.0 Active Jocelyne Naff SENIOR RELATIONSHIP MANAGER Family history of malignant neoplasm of [...] Ingrown toenail, left 703.0 Resolved Marta Yokum [employer] DIRECTOR Ingrowing nail cellulitis, finger, right 681.00 Active Marta Yokum [employer]DR[employer]IST[employer] DIRECTOR Cellulitis and abscess of finger, unspecified Breast [...] 500 MG CAP 1 po qid CEPHALEXIN 36739422503 Active Marta Viramontes APRN Active B COMPLEX 50 ORAL CR-TABS B COMPLEX VITAMINS 62772769317 Active Marta Viramontes APRN Active TUSSIONEX PENNKINETIC ER 10-8 MG/5ML LQCR 5ml po q12hr PRN Cough HYDROCOD POLST-CHLORPHEN POLST 93370332398 No Longer Active Marta Viramontes APRN Active VITAMIN D3 70671 UNIT CAPS 1 qWeek x 4 months for vitamin D deficiency 04/09 CHOLECALCIFEROL 53250856202 Active Marta Viramontes APRN Active CEPHALEXIN 500 MG ORAL CAPS Take one four times a day CEPHALEXIN 46406473106 No Longer Active Marta Viramontes APRN Active BIOTIN 1000 MCG ORAL TABS Take one daily BIOTIN 03525926752 Active Rikki GRANADOS Active VITAMIN C 500 MG ORAL CAPS Take one daily ASCORBIC ACID 63313566583 Active Rikki GRANADOS Active BENZONATATE 200 MG ORAL CAPS One capsule tid. BENZONATATE 55598593408 No Longer Active Rikki GRANADOS Active FLONASE ALLERGY RELIEF 50 MCG/ACT NASAL SUSP spray twice in each nostril one time daily FLUTICASONE PROPIONATE 51363463269 No Longer Active Rikki Harms PA Active TUSSIONEX PENNKINETIC ER 10-8 MG/5ML LQCR 5ml po q12hr PRN Cough HYDROCOD POLST-CHLORPHEN POLST 24744409659 No Longer Active Rikki Harms PA Active NIACIN ER 500 MG ORAL CR-TABS Take one twice daily NIACIN 88235210780 Active Rikki Harms PA Active ALBUTEROL SULFATE 0.083 % NEBU SOLN one vial per nebulizer every 4-6 hours as needed ALBUTEROL SULFATE 40939397444 No Longer Active Rikki Harms PA Active MEDROL (CAROLYN) 4 MG TABS 6 tabs on day 1, 5 tabs on day 2, 4 tabs on day 3, 3 tabs on day 4, 2 tabs on day 5, 1 tab on day 6 METHYLPREDNISOLONE 34295262436 No Longer Active Rikki Harms PA Active LEVAQUIN 750 MG TABS 1 po qd x 7 days LEVOFLOXACIN 45087559138 No Longer Active Rikki Harms PA Active LEVAQUIN 500 MG ORAL TABS Take one tablet daily LEVOFLOXACIN 75773302525 No Longer Active Rikki Harms PA Active PROAIR HFA 108 (90 BASE) MCG/ACT AERS 2 puffs four times a day as needed 2014 ALBUTEROL SULFATE 61394833291 Active Marta Yokum [employer]IL[employer] DIRECTOR Active LEVAQUIN 500 MG TAB 1 tablet by mouth daily LEVOFLOXACIN 81417811443 No Longer Active Marta Yokum [employer]ILDR[employer]S MINISTRI[employer] DIRECTOR Active CHERATUSSIN AC 100-10 MG/5ML SYRP 1 tsp by mouth every 4 hours as needed for cough GUAIFENESIN-CODEINE 03985587187 No Longer Active Rikki Harms PA Active MUPIROCIN 2 % EXT OINT Use in each nostril in am and pm MUPIROCIN 51032969096 No Longer Active Rikki Harms PA Active DOXYCYCLINE HYCLATE 100 MG ORAL CAPS Take one bid DOXYCYCLINE HYCLATE 77893223643 No Longer Active Rikki Harms PA Active CLARITIN 10 MG TABS 1prn LORATADINE 04298751585 No Longer Active Jocelyne Naff SENIOR RELATIONSHIP MANAGER Active ASPIRIN 81 MG TABS 1qd ASPIRIN 62885405211 No Longer Active Jocelyne Naff SENIOR RELATIONSHIP MANAGER Active DOXYCYCLINE HYCLATE 100 MG CAP 1 cap by mouth twice daily DOXYCYCLINE HYCLATE 28427924368 No Longer Active Rikki Harms PA Active VITAMIN D3 38831 UNIT CAPS 1 pill by mouth weekly, for vitamin D deficiency CHOLECALCIFEROL 72725143587 No Longer Active Jennifer Chun MD PhD Active ANASTROZOLE 1 MG ORAL TABS Take one by mouth daily ANASTROZOLE 26176622448 Active Jennifer Chun MD PhD Active ZITHROMAX 250 MG TAB 2 po today, then 1 po q days 2-5 AZITHROMYCIN 55845594966 No Longer Active Rikki Harms PA Active MECLIZINE HCL 25 MG TABS 1 prn MECLIZINE HCL 11076376572 No Longer Active Solomon Alamo MD Active CHERATUSSIN AC SYRP prn as directed GUAIFENESIN- CODEINE SYRP 96940884113 No Longer Active Rikki Harms PA Active MULTIVITAMINS TABS 1qd MULTIPLE VITAMIN 25865910128 No Longer Active Rikki Harms PA Active OMEPRAZOLE 20 MG CPDR 1 PO Q D OMEPRAZOLE 64697386875 Active Jocelyne Naff SENIOR RELATIONSHIP MANAGER Active ZITHROMAX Z-CAROLYN 250 MG TABS 2x1day,3i6prwi AZITHROMYCIN 45833299198 No Longer Active Jocelyne Naff SENIOR RELATIONSHIP MANAGER Active MULTIVITAMINS TABS 1qd MULTIVITAMINS TABS MULTIPLE VITAMIN Inactive CHERATUSSIN AC SYRP prn as directed CHERATUSSIN AC SYRP GUAIFENESIN-CODEINE SYRP Inactive MECLIZINE HCL 25 MG TABS 1 prn MECLIZINE HCL 25 MG TABS 359648 MECLIZINE HCL Inactive ASPIRIN 81 MG TABS 1qd ASPIRIN 81 MG TABS ASPIRIN Inactive CLARITIN 10 MG TABS 1prn CLARITIN 10 MG TABS 180316 LORATADINE Inactive DOXYCYCLINE HYCLATE 100 MG ORAL CAPS Take one bid DOXYCYCLINE HYCLATE 100 MG ORAL CAPS 4596143 DOXYCYCLINE HYCLATE Inactive MUPIROCIN 2 % EXT OINT Use in each nostril in am and pm MUPIROCIN 2 % EXT OINT 087844 MUPIROCIN Inactive CHERATUSSIN AC 100-10 MG/5ML SYRP 1 tsp by mouth every 4 hours as needed for cough CHERATUSSIN AC 100-10 MG/5ML SYRP 165838 GUAIFENESIN-CODEINE Inactive LEVAQUIN 500 MG TAB 1 tablet by mouth daily LEVAQUIN 500 MG TAB 335264 LEVOFLOXACIN Inactive LEVAQUIN 500 MG ORAL TABS Take one tablet daily LEVAQUIN 500 MG ORAL TABS 571305 LEVOFLOXACIN Inactive LEVAQUIN 750 MG TABS 1 po qd x 7 days LEVAQUIN 750 MG TABS 293157 LEVOFLOXACIN Inactive ALBUTEROL SULFATE 0.083 % NEBU SOLN one vial per nebulizer every 4-6 hours as needed ALBUTEROL SULFATE 0.083 % NEBU SOLN 340936 ALBUTEROL SULFATE Inactive TUSSIONEX PENNKINETIC ER 10-8 MG/5ML LQCR 5ml po q12hr PRN Cough TUSSIONEX PENNKINETIC ER 10-8 MG/5ML LQCR HYDROCOD POLST- CHLORPHEN POLST Inactive FLONASE ALLERGY RELIEF 50 MCG/ACT NASAL SUSP spray twice in each nostril one time daily FLONASE ALLERGY RELIEF 50 MCG/ACT NASAL SUSP 3373808 FLUTICASONE PROPIONATE Inactive BENZONATATE 200 MG ORAL CAPS One capsule tid. BENZONATATE 200 MG ORAL CAPS 242631 BENZONATATE Inactive CEPHALEXIN 500 MG ORAL CAPS Take one four times a day CEPHALEXIN 500 MG ORAL CAPS 196368 CEPHALEXIN Inactive TUSSIONEX PENNKINETIC ER 10-8 MG/5ML LQCR 5ml po q12hr PRN Cough TUSSIONEX PENNKINETIC ER 10-8 MG/5ML LQCR HYDROCOD POLST- CHLORPHEN POLST Inactive ZITHROMAX Z-CAROLYN 250 MG TABS 2x1day,3n7twwy ZITHROMAX Z-CAROLYN 250 MG TABS 1733580 AZITHROMYCIN Inactive ZITHROMAX 250 MG TAB 2 po today, then 1 po q days 2-5 ZITHROMAX 250 MG TAB 1835806 AZITHROMYCIN Inactive VITAMIN D3 38716 UNIT CAPS 1 pill by mouth weekly, for vitamin D deficiency VITAMIN D3 63107 UNIT CAPS CHOLECALCIFEROL Inactive DOXYCYCLINE HYCLATE 100 MG CAP 1 cap by mouth twice daily DOXYCYCLINE HYCLATE 100 MG CAP 9581362 DOXYCYCLINE HYCLATE Inactive MEDROL (CAROLYN) 4 MG TABS 6 tabs on day 1, 5 tabs on day 2, 4 tabs on day 3, 3 tabs on day 4, 2 tabs on day 5, 1 tab on day 6 MEDROL ( CAROLYN) 4 MG TABS 702981 METHYLPREDNISOLONE Inactive Vital Signs Date Name Value [...] Panel - Chemistry sodium, serum 142 mmol/L 515-527 2999/07/25 potassium, serum 4.0 mmol/L 3.5-5.2 chloride, serum 107 mmol/L 98-107 carbon dioxide, venous blood 31.6 mmol/L 21.0-32.0 blood glucose 108 mg/dL 65-110 calcium, serum 9.2 mg/dL 8.5-10.1 urea nitrogen, blood 20 mg/dL 7-18 creatinine, serum 0.92 mg/dL 0.55-1.30 sodium, serum 141 mmol/L 331-604 6334/11/11 potassium, serum 4.2 mmol/L 3.5-5.2 chloride, serum 106 mmol/L 98-107 carbon dioxide, venous blood 29.1 mmol/L 21.0-32.0 blood glucose 95 mg/dL 65-110 calcium, serum 8.6 mg/dL 8.5-10.1 urea nitrogen, blood 23 mg/dL 7-18 creatinine, serum 0.83 mg/dL 0.55-1.30 Lab Report: Lipid Panel, Thyroid Stimulating Hormone (L) - Chemistry cholesterol, serum 177 mg/dL 464-196 8892/10/31 triglyceride, serum, fasting 64 mg/dL 30-200 HDL cholesterol, serum 77 mg/dL 32-96 LDL cholesterol, serum 87 mg/dL 0-130 TSH 2.13 m[iU]/mL 0.36-3.74 Lab Report: VITAMIN D, 25-HYDROXY/49602 - Chemistry vitamin D 25-hydroxy, serum 25 ng/mL 30-100 Encounters Code Encounter Date Provider Facility CPT-19916 Level 3 Est. Patient 15:39:01 CDT [facility] CPT-76177 Level 4 Est. Patient 17:31:07 CDT Marta Viramontes [facility] CPT-00405 Level 3 Est. Patient 05:11:40 CDT Rikki GRANADOS [facility] CPT-44489 Level 2 Est. 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 Patient 09:14:36 SUPERVISOR [employer]UR[employer] CUTTING Rikki GRANADOS [facility] CPT-55973 Level 2 Est. Patient 09:07:32 CDT Marta Viramontes [facility] CPT-06511 Level 4 Est. Patient 11:55:00 CDT Rikki GRANADOS [facility] CPT-77234 Level 3 Est. Patient 13:25:16 CDT Jennifer Chun MD PhD [facility] CPT-86661 Level 3 Est. Patient 17:31:22 CDT Solomon Alamo MD [facility]-12395 Level 3 Est. Patient 08:02:14 CDT Solomon Alamo MD [facility] CPT-57736 Level 3 Est. Patient 17:23:53 CDT Rikki Harms [facility] CPT-26619 Level 3 Est. Patient 11:22:41 CDT Darryn Hearn [facility] Procedures Code Procedure Name Date Entry Date Standard Description CPT-98375 Venipuncture Draw Fee 12:43:48 SUPERVISOR [employer]TING CPT-41692 BMP - LAB USE ONLY 10:32:33 SUPERVISOR [employer] C[employer]TING CPT-11104 Venipuncture Draw Fee 10:32:33 SUPERVISOR [employer] CUTTING CPT-85871 Magnesium - LAB USE ONLY 09:54:30 CDT CPT-13147 TSH - LAB USE ONLY 09:54:30 CDT CPT-31394 Lipid - LAB USE ONLY 09:54:30 CDT CPT-08227 Venipuncture Draw Fee 09:54:29 CDT CPT-25852 Venipuncture Draw Fee 18:27:04 CDT CPT-48438 Chest 2V Frontal and Lat 10:57:00 SUPERVISOR [employer] C[employer]TING CPT-35244 Venipuncture Draw Fee 10:56:59 SUPERVISOR [employer] CUTTING CPT-02430 Venipuncture Draw Fee 09:22:28 SUPERVISOR [employer] CUTTING CPT-15140 Chest 2V Frontal and Lat 09:22:27 SUPERVISOR [employer] CUTTING CPT-I/D I/D Abscess 09:43:13 CDT CPT-30918 Venipuncture Draw Fee 08:16:46 SUPERVISOR [employer] CUTTING CPT-49568 Venipuncture Draw Fee 08:18:55 SUPERVISOR [employer] CUTTING CPT-77160 Venipuncture Draw Fee 08:31:18 SUPERVISOR [employer] CUTTING CPT-76246 Venipuncture Draw Fee 11:42:52 SUPERVISOR [employer] CUTTING CPT-77460 Venipuncture Draw Fee 13:26:37 SUPERVISOR [employer] CUTTING CPT-33750 Venipuncture Draw Fee 09:23:38 SUPERVISOR [employer] CUTTING CPT-000 Give Appropriate Tetanus Booster 10:23:50 CDT CPT-08388 Bone Density 08:28:45 CDT CPT-25922 Bone Density 11:35:15 CDT CPT-PV Prev. Care Visit 12:19:00 CDT CPT-50657 Venipuncture Draw Fee 15:02:58 CDT
--- OUTSIDE RECORDS SUMMARY | 2018-01-19 08:30 | XMS REPORT ---
Author Author [employer] [facility] Medical Staff Organization [employer] [facility] Address [address], [place] [id number] Phone [phone] Care Team Providers Care Audit Clerks Supervisor Name Role Phone ALIX DAVILA, FERMÍN PP [phone] Summary purpose TRANSITION OF CARE AUTO GENERATION Chief Complaint and Reason for Visit Admit Diagnosis 1 LUMP OR MASS IN BREAST Problem list No authorized problems tracked for continuity of care are available for this visit. Encounters The following conditions tracked for encounter diagnoses were recorded for this visit: Finding or Diagnosis Status Certainty Chronicity Onset *COLONOSCOPY Active Medications Home Medications Medication Directions Started Status Source Risedronate (Actonel) 1/0.5 tablet oral 1 Daily 1/2 tab Discont Doctor's office aspirin 81 mg tablet 81mg tablet oral 1 Daily Current Doctor's office Ascorbic Acid (Vitamin C) 1000mg tablet oral 1 Daily Discont Doctor's office Cyanocobalamin (Vitamin B-12) 100mcg tablet oral 1 Daily Discont Doctor 's office Estrogens,conjugated (Premarin) 1 Daily Discont Patient recall omeprazole oral 1 tablet oral 1 Daily Current Patient medication list Allergies, adverse reactions, alerts Allergen Category Ingredient Status Reaction Severity Onset Sulfa (Sulfonamide Antibiotics) Drug Allergy Sulfa (Sulfonamide Antibiotics) Confirmed or Verified Immunizations No immunizations recorded for this patient visit Relevant diagnostic tests and/or laboratory data No authorized results are available for this patient visit History of procedures Procedure Code Code Type Description Date Performed Performing Physician 85.11 ICD9-CM CLOSED BIOPSY OF BREAST 02-22-2014 SEEMA HAILE 85.19 ICD9-CM BREAST DX PROCEDURE NEC 02-22-2014 SEEMA HAILE 70718 CPT-4 BX BREAST 1ST LESION STRTCTC 02-22-2014 SEEMA HAILE J7120 CPT-4 RINGERS LACTATE INFUSION 02-22-2014 SEEMA HAILE J7040 CPT-4 NORMAL SALINE SOLUTION INFUS 02-22-2014 SEEMA HAILE J2250 CPT-4 INJ MIDAZOLAM HYDROCHLORIDE 02-22-2014 SEEMA HAILE Functional status Functional Status Finding Observation Time Hearing Prob Loc none 49-93-063136:03 Vision Problems yes :03 Vision Correct Dev glasses 14-10-403175:03 Ambulation Asst Dev none 93-00-325013:03 Range of Motion full 24-14-875240:00 Muscle Strength RUE 5 ROM full resist 03-27-733806:00 Muscle Strength RLE 5 ROM full resist :00 Muscle Strength LUE 5 ROM full resist :00 Muscle Strength LLE 5 ROM full resist 69-81-951558:00 Transfers independent 29-64-047991:00 Ambulation up ad fredi :00 Balance steady :00 Bathing Assistance none 10-81-733937:03 Eating Assistance none :03 Dressing Assistance none 41-83-395155:03 Toileting Assistance minimal :03 Transfer Assistance minimal :03 Decline Slf Care/Mob no :03 Phys Cond Stable yes :03 Cognitive Status Finding Observation Time Learning Ability comprehends well : Neurological no 69-29-339422:00 Psychological no 68-89-666524:00 Physical no 57-24-430642:00 Hearing no :00 Specimen Boss Needed no :00 Sign Language no :00 Emotional no :00 Vision yes 73-98-459328:00 [place] no 71-77-939400:00 Financial no 48-94-742434:00 Vital signs Type Value Date Respiration Rate 18breaths per minute 75-06-126256:45 Pulse 60beats per minute :45 Oxygen Saturation 100% 71-97-288720:45 BP Systolic 141mmHg 65-97-596529:45 BP Diastolic 48mmHg 23-71-940581:45 Temperature 96.3F 73-62-345185:00 Height 62inches 21-08-470644:00 Weight 202LB 23-74-028188:00 Social history Type Value Smoking Status NEVER SMOKER Treatment Plan No treatment plan text is available for this visit. Hospital discharge instructions Valuables no
--- OUTSIDE RECORDS SUMMARY | 2018-01-19 08:30 | XMS REPORT | Clinical Summary ---
Author Author Admin, E Organization [facility] Address Unknown Phone Unavailable Allergies, Adverse Reactions, Alerts Allergy Name Reaction Description Start Date Severity Status Provider SULFA facial swelling Critical Active Jocelyne Naff PHOTORESIST PRINTER Conditions or Problems Problem Name Problem Code Onset Date Status Entry Date Provider Comment Standard Description Annotate G E R D 530.81 Active Jocelyne Naff PHOTORESIST PRINTER Esophageal reflux FH COLON CANCER V16.0 Active Jocelyne Naff PHOTORESIST PRINTER Family history of malignant neoplasm of gastrointestinal [...] Ingrown toenail, left 703.0 Resolved Marta Yokum LOAN COLLECTOR Ingrowing nail cellulitis, finger, right 681.00 Active Marta Yokum LOAN COLLECTOR Cellulitis and abscess of finger, unspecified Cough 786.2 Active Marta Yokum LOAN COLLECTOR Cough Soft tissue infection ICD-528.9 Inactive Rikki Harms PA Abscess, skin ICD-682.9 Inactive Rikki Harms PA Cellulitis, 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 Rikki Harms PA Rash ICD-782.1 Inactive Rikki GRANADOS Upper respiratory infection, acute ICD-465.9 Inactive Rikki GRANADOS Chemotherapy ICD-V58.11 Inactive Rikki GRANADOS Cough, chronic ICD-786.2 Inactive Rikki GRANADOS Breast microcalcification ICD-793.81 Inactive Jennifer Chun MD PhD Abnormal Mammogram ICD-793.80 Inactive Jennifer Chun MD PhD Ingrown toenail, left ICD-703.0 Inactive Marta Viramontes APRN Medication List Medication Instructions Start Date Stop Date Generic Name NDC Status Provider Patient Instruction AUGMENTIN 875-125 MG TAB 1 po BID x 10 days AMOXICILLIN-POT CLAVULANATE 38117864647 Active Marta Yokum LOAN COLLECTOR Active MEDROL (CAROLYN) 4 MG TABS 6 tabs on day 1, 5 tabs on day 2, 4 tabs on day 3, 3 tabs on day 4, 2 tabs on day 5, 1 tab on day 6 METHYLPREDNISOLONE 33393841400 No Longer Active Marta Yokum LOAN COLLECTOR Active TESSALON PERLES 100 MG CAP 1 to 2 tablets by mouth 3 times daily as needed for cough BENZONATATE 93849977218 Active Marta Yokum LOAN COLLECTOR Active TUSSIONEX PENNKINETIC ER 10-8 MG/5ML LQCR 5ml po q12hr PRN Cough HYDROCOD POLST-CHLORPHEN POLST 29495155851 Active Marta Yokum LOAN COLLECTOR Active KEFLEX 500 MG CAP 1 po qid CEPHALEXIN 12741027786 No Longer Active Marta Yokum LOAN COLLECTOR Active B COMPLEX 50 ORAL CR-TABS B COMPLEX VITAMINS 32667796856 Active Marta Viramontes APRN Active TUSSIONEX PENNKINETIC ER 10-8 MG/5ML LQCR 5ml po q12hr PRN Cough HYDROCOD POLST-CHLORPHEN POLST 78859497721 No Longer Active Marta Viramontes APRN Active VITAMIN D3 19553 UNIT CAPS 1 qWeek x 4 months for vitamin D deficiency 04/09 CHOLECALCIFEROL 08355589285 Active Marta Viramontes LOAN COLLECTOR Active CEPHALEXIN 500 MG ORAL CAPS Take one four times a day CEPHALEXIN 79858392436 No Longer Active Marta Viramontes LOAN COLLECTOR Active BIOTIN 1000 MCG ORAL TABS Take one daily BIOTIN 52573061773 Active Rikki Harms PA Active VITAMIN C 500 MG ORAL CAPS Take one daily ASCORBIC ACID 13128853284 Active Rikki Harms PA Active BENZONATATE 200 MG ORAL CAPS One capsule tid. BENZONATATE 73964471934 No Longer Active Rikki Harms PA Active FLONASE ALLERGY RELIEF 50 MCG/ACT NASAL SUSP spray twice in each nostril one time daily FLUTICASONE PROPIONATE 58005393906 No Longer Active Rikki Harms PA Active TUSSIONEX PENNKINETIC ER 10-8 MG/5ML LQCR 5ml po q12hr PRN Cough HYDROCOD POLST-CHLORPHEN POLST 97767447154 No Longer Active Rikki Harms PA Active NIACIN ER 500 MG ORAL CR-TABS Take one twice daily NIACIN 44010391602 Active Rikki Harms PA Active ALBUTEROL SULFATE 0.083 % NEBU SOLN one vial per nebulizer every 4-6 hours as needed ALBUTEROL SULFATE 29316079969 No Longer Active Rikki Harms PA Active MEDROL (CAROLYN) 4 MG TABS 6 tabs on day 1, 5 tabs on day 2, 4 tabs on day 3, 3 tabs on day 4, 2 tabs on day 5, 1 tab on day 6 METHYLPREDNISOLONE 56603694347 No Longer Active Rikki Harms PA Active LEVAQUIN 750 MG TABS 1 po qd x 7 days LEVOFLOXACIN 28238007981 No Longer Active Rikki Harms PA Active LEVAQUIN 500 MG ORAL TABS Take one tablet daily LEVOFLOXACIN 74836759677 No Longer Active Rikki Harms PA Active PROAIR HFA 108 (90 BASE) MCG/ACT AERS 2 puffs four times a day as needed 2014 ALBUTEROL SULFATE 64368068733 Active Marta Yokum LOAN COLLECTOR Active LEVAQUIN 500 MG TAB 1 tablet by mouth daily LEVOFLOXACIN 13650459063 No Longer Active Marta Yokum LOAN COLLECTOR Active CHERATUSSIN AC 100-10 MG/5ML SYRP 1 tsp by mouth every 4 hours as needed for cough GUAIFENESIN-CODEINE 64110735588 No Longer Active Rikki Harms PA Active MUPIROCIN 2 % EXT OINT Use in each nostril in am and pm MUPIROCIN 71812784248 No Longer Active Rikki Harms PA Active DOXYCYCLINE HYCLATE 100 MG ORAL CAPS Take one bid DOXYCYCLINE HYCLATE 39170247155 No Longer Active Rikki Harms PA Active CLARITIN 10 MG TABS 1prn LORATADINE 80582120860 No Longer Active Jocelyne Naff PHOTORESIST PRINTER Active ASPIRIN 81 MG TABS 1qd ASPIRIN 03468642220 No Longer Active Jocelyne Naff PHOTORESIST PRINTER Active DOXYCYCLINE HYCLATE 100 MG CAP 1 cap by mouth twice daily DOXYCYCLINE HYCLATE 75548568995 No Longer Active Rikki Harms PA Active VITAMIN D3 25210 UNIT CAPS 1 pill by mouth weekly, for vitamin D deficiency CHOLECALCIFEROL 65605734099 No Longer Active Jennifer Chun MD PhD Active ANASTROZOLE 1 MG ORAL TABS Take one by mouth daily ANASTROZOLE 11688765118 Active Jennifer Chun MD PhD Active ZITHROMAX 250 MG TAB 2 po today, then 1 po q days 2-5 AZITHROMYCIN 32023652418 No Longer Active Rikki Harms PA Active MECLIZINE HCL 25 MG TABS 1 prn MECLIZINE HCL 71884222165 No Longer Active Solomon Alamo MD Active CHERATUSSIN AC SYRP prn as directed GUAIFENESIN- CODEINE SYRP 31481578426 No Longer Active Rikki Harms PA Active MULTIVITAMINS TABS 1qd MULTIPLE VITAMIN 84031970600 No Longer Active Rikki Harms PA Active OMEPRAZOLE 20 MG CPDR 1 PO Q D OMEPRAZOLE 83344580343 Active Jocelyne Naff PHOTORESIST PRINTER Active ZITHROMAX Z-CAROLYN 250 MG TABS 2x1day,4m3coya AZITHROMYCIN 27368262358 No Longer Active Jocelyne Naff PHOTORESIST PRINTER Active MULTIVITAMINS TABS 1qd MULTIVITAMINS TABS MULTIPLE VITAMIN Inactive CHERATUSSIN AC SYRP prn as directed CHERATUSSIN AC SYRP GUAIFENESIN-CODEINE SYRP Inactive MECLIZINE HCL 25 MG TABS 1 prn MECLIZINE HCL 25 MG TABS 202194 MECLIZINE HCL Inactive ASPIRIN 81 MG TABS 1qd ASPIRIN 81 MG TABS ASPIRIN Inactive CLARITIN 10 MG TABS 1prn CLARITIN 10 MG TABS 186085 LORATADINE Inactive DOXYCYCLINE HYCLATE 100 MG ORAL CAPS Take one bid DOXYCYCLINE HYCLATE 100 MG ORAL CAPS 3028400 DOXYCYCLINE HYCLATE Inactive MUPIROCIN 2 % EXT OINT Use in each nostril in am and pm MUPIROCIN 2 % EXT OINT 822508 MUPIROCIN Inactive CHERATUSSIN AC 100-10 MG/5ML SYRP 1 tsp by mouth every 4 hours as needed for cough CHERATUSSIN AC 100-10 MG/5ML SYRP 329106 GUAIFENESIN-CODEINE Inactive LEVAQUIN 500 MG TAB 1 tablet by mouth daily LEVAQUIN 500 MG TAB 868703 LEVOFLOXACIN Inactive LEVAQUIN 500 MG ORAL TABS Take one tablet daily LEVAQUIN 500 MG ORAL TABS 349537 LEVOFLOXACIN Inactive LEVAQUIN 750 MG TABS 1 po qd x 7 days LEVAQUIN 750 MG TABS 760075 LEVOFLOXACIN Inactive ALBUTEROL SULFATE 0.083 % NEBU SOLN one vial per nebulizer every 4-6 hours as needed ALBUTEROL SULFATE 0.083 % NEBU SOLN 388447 ALBUTEROL SULFATE Inactive TUSSIONEX PENNKINETIC ER 10-8 MG/5ML LQCR 5ml po q12hr PRN Cough TUSSIONEX PENNKINETIC ER 10-8 MG/5ML LQCR HYDROCOD POLST- CHLORPHEN POLST Inactive FLONASE ALLERGY RELIEF 50 MCG/ACT NASAL SUSP spray twice in each nostril one time daily FLONASE ALLERGY RELIEF 50 MCG/ACT NASAL SUSP 1994800 FLUTICASONE PROPIONATE Inactive BENZONATATE 200 MG ORAL CAPS One capsule tid. BENZONATATE 200 MG ORAL CAPS 189634 BENZONATATE Inactive CEPHALEXIN 500 MG ORAL CAPS Take one four times a day CEPHALEXIN 500 MG ORAL CAPS 750569 CEPHALEXIN Inactive TUSSIONEX PENNKINETIC ER 10-8 MG/5ML LQCR 5ml po q12hr PRN Cough TUSSIONEX PENNKINETIC ER 10-8 MG/5ML LQCR HYDROCOD POLST- CHLORPHEN POLST Inactive ZITHROMAX Z-CAROLYN 250 MG TABS 2x1day,0c9vnmt ZITHROMAX Z-CAROLYN 250 MG TABS 4094318 AZITHROMYCIN Inactive ZITHROMAX 250 MG TAB 2 po today, then 1 po q days 2-5 ZITHROMAX 250 MG TAB 3340631 AZITHROMYCIN Inactive VITAMIN D3 79983 UNIT CAPS 1 pill by mouth weekly, for vitamin D deficiency VITAMIN D3 31253 UNIT CAPS CHOLECALCIFEROL Inactive DOXYCYCLINE HYCLATE 100 MG CAP 1 cap by mouth twice daily DOXYCYCLINE HYCLATE 100 MG CAP 2546014 DOXYCYCLINE HYCLATE Inactive MEDROL (CAROLYN) 4 MG TABS 6 tabs on day 1, 5 tabs on day 2, 4 tabs on day 3, 3 tabs on day 4, 2 tabs on day 5, 1 tab on day 6 MEDROL ( CAROLYN) 4 MG TABS 947209 METHYLPREDNISOLONE Inactive KEFLEX 500 MG CAP 1 po qid KEFLEX 500 MG CAP 541310 CEPHALEXIN Inactive MEDROL (CAROLYN) 4 MG TABS 6 tabs on day 1, 5 tabs on day 2, 4 tabs on day 3, 3 tabs on day 4, 2 tabs on day 5, 1 tab on day 6 MEDROL ( CAROLYN) 4 MG TABS 538534 METHYLPREDNISOLONE Inactive Vital Signs Date Name Value [...] Panel - Chemistry sodium, serum 142 mmol/L 026-999 3526/07/25 potassium, serum 4.0 mmol/L 3.5-5.2 chloride, serum 107 mmol/L 98-107 carbon dioxide, venous blood 31.6 mmol/L 21.0-32.0 blood glucose 108 mg/dL 65-110 calcium, serum 9.2 mg/dL 8.5-10.1 urea nitrogen, blood 20 mg/dL 7-18 creatinine, serum 0.92 mg/dL 0.55-1.30 sodium, serum 141 mmol/L 191-315 7655/11/11 potassium, serum 4.2 mmol/L 3.5-5.2 chloride, serum 106 mmol/L 98-107 carbon dioxide, venous blood 29.1 mmol/L 21.0-32.0 blood glucose 95 mg/dL 65-110 calcium, serum 8.6 mg/dL 8.5-10.1 urea nitrogen, blood 23 mg/dL 7-18 creatinine, serum 0.83 mg/dL 0.55-1.30 Lab Report: Lipid Panel, Thyroid Stimulating Hormone (L) - Chemistry cholesterol, serum 177 mg/dL 079-357 7640/10/31 triglyceride, serum, fasting 64 mg/dL 30-200 HDL cholesterol, serum 77 mg/dL 32-96 LDL cholesterol, serum 87 mg/dL 0-130 TSH 2.13 m[iU]/mL 0.36-3.74 Lab Report: VITAMIN D, 25-HYDROXY/54952 - Chemistry vitamin D 25-hydroxy, serum 25 ng/mL 30-100 Encounters Code Encounter Date Provider Facility CPT-04891 Level 3 Est. Patient 16:07:34 CDT [facility]a [facility] CPT-93614 Level 3 Est. Patient 15:39:01 CDT Marta [facility] CPT-64161 Level 4 Est. Patient 17:31:07 CDT Marta [facility] CPT-09520 Level 3 Est. Patient 05:11:40 CDT Rikki GRANADOS [facility] CPT-91029 Level 2 Est. Patient 14:30:43 CORPORATE MEETING PLANNER Marta Viramontes [facility] CPT-83004 Level 4 Est. Patient 09:14:36 CORPORATE MEETING PLANNER Rikki GRANADOS [facility] CPT-86219 Level 2 Est. Patient 09:07:32 CDT Marta Viramontes [facility] CPT-41808 Level 4 Est. Patient 11:55:00 CDT Rikki GRANADOS [facility] CPT-20252 Level 3 Est. Patient 13:25:16 CDT Jennifer Chun MD [facility] CPT-32821 Level 3 Est. Patient 17:31:22 CDT Solomon Alamo MD [facility] CPT-73130 Level 3 Est. Patient 08:02:14 CDT Solomon Alamo MD [facility] CPT-80328 Level 3 Est. Patient 17:23:53 CDT Rikki GRANADOS [facility] CPT-46945 Level 3 Est. Patient 11:22:41 CDT Darryn Hearn [facility] Procedures Code Procedure Name Date Entry Date Standard Description CPT-55828 Venipuncture Draw Fee 12:43:48 CORPORATE MEETING PLANNER CPT-16464 BMP - LAB USE ONLY 10:32:33 CORPORATE MEETING PLANNER CPT-66894 Venipuncture Draw Fee 10:32:33 CORPORATE MEETING PLANNER CPT-20778 Magnesium - LAB USE ONLY 09:54:30 CDT CPT-13476 TSH - LAB USE ONLY 09:54:30 CDT CPT-45118 Lipid - LAB USE ONLY 09:54:30 CDT CPT-68602 Venipuncture Draw Fee 09:54:29 CDT CPT-59726 Venipuncture Draw Fee 18:27:04 CDT CPT-20908 Chest 2V Frontal and Lat 10:57:00 CORPORATE MEETING PLANNER CPT-50306 Venipuncture Draw Fee 10:56:59 CORPORATE MEETING PLANNER CPT-07833 Venipuncture Draw Fee 09:22:28 CORPORATE MEETING PLANNER CPT-70444 Chest 2V Frontal and Lat 09:22:27 CORPORATE MEETING PLANNER CPT-I/D I/D Abscess 09:43:13 CDT CPT-65122 Venipuncture Draw Fee 08:16:46 CORPORATE MEETING PLANNER CPT-72589 Venipuncture Draw Fee 08:18:55 CORPORATE MEETING PLANNER CPT-62186 Venipuncture Draw Fee 08:31:18 CORPORATE MEETING PLANNER CPT-65127 Venipuncture Draw Fee 11:42:52 CORPORATE MEETING PLANNER CPT-69469 Venipuncture Draw Fee 13:26:37 CORPORATE MEETING PLANNER CPT-36036 Venipuncture Draw Fee 09:23:38 CORPORATE MEETING PLANNER CPT-000 Give Appropriate Tetanus Booster 10:23:50 CDT CPT-65750 Bone Density 08:28:45 CDT CPT-58442 Bone Density 11:35:15 CDT CPT-PV Prev. Care Visit 12:19:00 CDT CPT-87674 Venipuncture Draw Fee 15:02:58 CDT
--- OUTSIDE RECORDS SUMMARY | 2018-01-19 08:31 | XMS REPORT | Clinical Summary ---
Author Author Admin, E Organization [facility] Address Unknown Phone Unavailable Allergies, Adverse Reactions, Alerts Allergy Name Reaction Description Start Date Severity Status Provider SULFA facial swelling Critical Active Jocelyne Naff ASSISTANT FINANCE DIRECTOR Conditions or Problems Problem Name Problem Code Onset Date Status Entry Date Provider Comment Standard Description Annotate G E R D 530.81 Active Jocelyne Naff ASSISTANT FINANCE DIRECTOR Esophageal reflux FH COLON CANCER V16.0 Active Jocelyne Naff ASSISTANT FINANCE DIRECTOR Family history of malignant neoplasm of gastrointestinal [...] Chante REYES Asymptomatic postmenopausal status (age-related) (natural) Medication List Medication Instructions Start Date Stop Date Generic Name NDC Status Provider Patient Instruction MECLIZINE HCL 25 MG TABS 1 prn MECLIZINE HCL 07599744817 No Longer Active Solomon Alamo MD Active CHERATUSSIN AC SYRP prn as directed GUAIFENESIN- CODEINE SYRP 10482255485 No Longer Active Rikki Stearns DARWIN Active MULTIVITAMINS TABS 1qd MULTIPLE VITAMIN 18001983467 No Longer Active Rikki Stearns PA Active CLARITIN 10 MG TABS 1prn LORATADINE 10977522662 Active Jocelyne Naff ASSISTANT FINANCE DIRECTOR Active ASPIRIN 81 MG TABS 1qd ASPIRIN 33250053894 Active Jocelyne Naff ASSISTANT FINANCE DIRECTOR Active OMEPRAZOLE 20 MG CPDR 1 PO Q D OMEPRAZOLE 94647836382 Active Rikki Stearns PA Active ZITHROMAX Z-CAROLYN 250 MG TABS 2x1day,1t5rxlq AZITHROMYCIN 11550712664 No Longer Active Jocelyne Naff ASSISTANT FINANCE DIRECTOR Active MULTIVITAMINS TABS 1qd MULTIVITAMINS TABS MULTIPLE VITAMIN Inactive CHERATUSSIN AC SYRP prn as directed CHERATUSSIN AC SYRP GUAIFENESIN-CODEINE SYRP Inactive MECLIZINE HCL 25 MG TABS 1 prn MECLIZINE HCL 25 MG TABS 418228 MECLIZINE HCL Inactive ZITHROMAX Z-CAROLYN 250 MG TABS 2x1day,1w3dyiq ZITHROMAX Z-CAROLYN 250 MG TABS 4356500 AZITHROMYCIN Inactive Vital Signs Date Name Value [...] E&M - 3141-9 200 [lb_av] Weight Measured Encounters Code Encounter Date Provider Facility CPT-37091 Level 3 Est. Patient 08:02:14 CDT Solomon Alamo MD [facility] CPT-98935 Level 3 Est. Patient 17:23:53 CDT Rikki Stearns [facility] CPT-58722 Level 3 Est. Patient 11:22:41 CDT Darryn Hearn [facility] Procedures Code Procedure Name Date Entry Date Standard Description CPT-04547 Bone Density 11:35:15 CDT CPT-PV Prev. Care Visit 12:19:00 CDT CPT-44556 Venipuncture Draw Fee 15:02:58 CDT
--- OUTSIDE RECORDS SUMMARY | 2018-01-19 08:31 | XMS REPORT | Clinical Summary ---
Author Author Admin, E Organization [facility] Address Unknown Phone Unavailable Allergies, Adverse Reactions, Alerts Allergy Name Reaction Description Start Date Severity Status Provider SULFA facial swelling Critical Active Jocelyne Lovell LPN Conditions or Problems Problem Name Problem Code Onset Date Status Entry Date Provider Comment Standard Description Annotate G E R D 530.81 Active Jocelyne Tsaif PLASTIC SHEETS FINISHING SUPERVISOR Esophageal reflux FH COLON CANCER V16.0 Active Jocelyne Naff PLASTIC SHEETS FINISHING SUPERVISOR Family history of malignant neoplasm of [...] then 1 po q days 2-5 AZITHROMYCIN 88611942883 No Longer Active Rikki Harms PA Active MECLIZINE HCL 25 MG TABS 1 prn MECLIZINE HCL 80461734789 No Longer Active Solomon Alamo MD Active CHERATUSSIN AC SYRP prn as directed GUAIFENESIN- CODEINE SYRP 92471493734 No Longer Active Rikki Harms PA Active MULTIVITAMINS TABS 1qd MULTIPLE VITAMIN 33048325984 No Longer Active Rikki Harms PA Active CLARITIN 10 MG TABS 1prn LORATADINE 36686341381 Active Jocelyne Naff PLASTIC SHEETS FINISHING SUPERVISOR Active ASPIRIN 81 MG TABS 1qd ASPIRIN 24207876517 Active Jocelyne Naff PLASTIC SHEETS FINISHING SUPERVISOR Active OMEPRAZOLE 20 MG CPDR 1 PO Q D OMEPRAZOLE 13994763832 Active Rikki Harms PA Active ZITHROMAX Z-CAROLYN 250 MG TABS 2x1day,7r0dtff AZITHROMYCIN 96953949133 No Longer Active Jocelyne Naff PLASTIC SHEETS FINISHING SUPERVISOR Active MULTIVITAMINS TABS 1qd MULTIVITAMINS TABS MULTIPLE VITAMIN Inactive CHERATUSSIN AC SYRP prn as directed CHERATUSSIN AC SYRP GUAIFENESIN-CODEINE SYRP Inactive MECLIZINE HCL 25 MG TABS 1 prn MECLIZINE HCL 25 MG TABS 397207 MECLIZINE HCL Inactive ZITHROMAX Z-CAROLYN 250 MG TABS 2x1day,1i8ewuz ZITHROMAX Z-CAROLYN 250 MG TABS 2587226 AZITHROMYCIN Inactive ZITHROMAX 250 MG TAB 2 po today, then 1 po q days 2-5 ZITHROMAX 250 MG TAB 2986282 AZITHROMYCIN Inactive Vital Signs Date Name Value Unit Range Description blood pressure, diastolic 78 mm[Hg] BP rivera blood pressure, systolic 143 mm[Hg] BP sys pulse rate E&M 84 /min Heart rate temperature E&M 98.1 [degF] Body temperature weight E&M 200.6 [lb_av] Weight Measured blood pressure, diastolic 74 mm[Hg] BP rivera blood pressure, systolic 147 mm[Hg] BP sys pulse rate E&M 73 /min Heart rate temperature E&M 98.6 [degF] Body temperature weight E&M 200 [lb_av] Weight Measured blood pressure, diastolic 82 mm[Hg] BP rivera blood pressure, systolic 134 mm[Hg] BP sys height E&M 61.5 [in_us] Bdy height pulse rate E&M 75 /min Heart rate temperature E&M 99.5 [degF] Body temperature weight E&M 202.50 [lb_av] Weight Measured blood pressure, diastolic 72 mm[Hg] BP rivera blood pressure, systolic 122 mm[Hg] BP sys pulse rate E&M 80 /min Heart rate temperature E&M 99.1 [degF] Body temperature weight E&M 200 [lb_av] Weight Measured Encounters Code Encounter Date Provider Facility CPT-26649 Level 3 Est. Patient 17:31:22 CDT Solomon Alamo MD [facility] CPT-17125 Level 3 Est. Patient 08:02:14 CDT Solomon Alamo MD [facility] CPT-43818 Level 3 Est. Patient 17:23:53 CDT Rikki Stearns [facility] CPT-75153 Level 3 Est. Patient 11:22:41 CDT Darryn Hearn [facility] Procedures Code Procedure Name Date Entry Date Standard Description CPT-000 Give Appropriate Tetanus Booster 10:23:50 CDT CPT-77142 Bone Density 08:28:45 CDT CPT-96849 Bone Density 11:35:15 CDT CPT-PV Prev. Care Visit 12:19:00 CDT CPT-94645 Venipuncture Draw Fee 15:02:58 CDT
--- OUTSIDE RECORDS SUMMARY | 2018-01-19 08:31 | XMS REPORT | Clinical Summary ---
Author Author Admin, E Organization [facility] Address Unknown Phone Unavailable Allergies, Adverse Reactions, Alerts Allergy Name Reaction Description Start Date Severity Status Provider SULFA facial swelling Critical Active Jocelyne Naff PHYSICIAN INDUSTRIAL Conditions or Problems Problem Name Problem Code Onset Date Status Entry Date Provider Comment Standard Description Annotate G E R D 530.81 Active Jocelyne Naff PHYSICIAN INDUSTRIAL Esophageal reflux FH COLON CANCER V16.0 Active Jocelyne Naff PHYSICIAN INDUSTRIAL Family history of malignant neoplasm of gastrointestinal tract ESOPHAGEAL STRICTURE 530.3 Active Darryn GRANADOS Stricture and stenosis of esophagus CAROTID ARTERY STENOSIS, RIGHT 433.10 Active Rikki GRANADOS Occlusion and stenosis of carotid artery, without mention of cerebral infarction HEALTH SCREENING V70.0 Active Rose Darnell LPN Routine general medical examination at a health care facility Benign positional vertigo 386.11 Active Rikki GRANADOS Benign paroxysmal positional vertigo Medication List Medication Instructions Start Date Stop Date Generic Name NDC Status Provider Patient Instruction MECLIZINE HCL 25 MG TABS 1 prn MECLIZINE HCL 16183587044 Active Rikki GRANADOS Active CHERATUSSIN AC SYRP prn as directed GUAIFENESIN- CODEINE SYRP 87837324749 No Longer Active Rikki GRANADOS Active MULTIVITAMINS TABS 1qd MULTIPLE VITAMIN 31103781612 No Longer Active Rikki GRANADOS Active CLARITIN 10 MG TABS 1prn LORATADINE 29434572935 Active Jocelyne Tsaif PHYSICIAN INDUSTRIAL Active ASPIRIN 81 MG TABS 1qd ASPIRIN 71137650961 Active Jocelyne Naff PHYSICIAN INDUSTRIAL Active OMEPRAZOLE 20 MG CPDR 1 PO Q D OMEPRAZOLE 91623719415 Active Rikki GRANADOS Active ZITHROMAX Z-CAROLYN 250 MG TABS 2x1day,8g7cyny AZITHROMYCIN 06881929700 No Longer Active Jocelyne Lovell PHYSICIAN INDUSTRIAL Active MULTIVITAMINS TABS 1qd MULTIVITAMINS TABS MULTIPLE VITAMIN Inactive CHERATUSSIN AC SYRP prn as directed CHERATUSSIN AC SYRP GUAIFENESIN-CODEINE SYRP Inactive ZITHROMAX Z-CAROLYN 250 MG TABS 2x1day,2i7lnxn ZITHROMAX Z-CAROLYN 250 MG TABS 1276431 AZITHROMYCIN Inactive Vital Signs Date Name Value Unit Range Description blood pressure, diastolic - 8462-4 72 mm[Hg] BP rivera blood pressure, systolic - 8480-6 122 mm[Hg] BP sys pulse rate E&M - 8867-4 80 /min Heart rate temperature E&M 99.1 [degF] Body temperature weight E&M - 3141-9 200 [lb_av] Weight Measured Encounters Code Encounter Date Provider Facility CPT-39038 Level 3 Est. Patient 17:23:53 CDT Rikki GRANADOS [facility] CPT-85456 Level 3 Est. Patient 11:22:41 CDT Darryn Hearn [facility] [place] Procedures Code Procedure Name Date Entry Date Standard Description CPT-59980 Venipuncture Draw Fee 15:02:58 CDT
--- OUTSIDE RECORDS SUMMARY | 2018-01-19 08:31 | XMS REPORT | Clinical Summary ---
Author Author Admin, E Organization [facility][note 3] Address Unknown Phone Unavailable Allergies, Adverse Reactions, Alerts Allergy Name Reaction Description Start Date Severity Status Provider SULFA facial swelling Critical Active Jocelyne Naff FRONT DESK MONITOR Conditions or Problems Problem Name Problem Code Onset Date Status Entry Date Provider Comment Standard Description Annotate G E R D 530.81 Active Jocelyne Naff FRONT DESK MONITOR Esophageal reflux FH COLON CANCER V16.0 Active Jocelyne Naff FRONT DESK MONITOR Family history of malignant neoplasm of gastrointestinal [...] Mammographic microcalcification Abnormal Mammogram 793.80 Active Solomon lAamo MD Abnormal mammogram, unspecified Routine gynecological examination V72.31 Active Jennifer Chun MD PhD Routine gynecological examination Postmenopausal status V49.81 Active Chante REYES Asymptomatic postmenopausal status (age-related) (natural) Medication List Medication Instructions Start Date Stop Date Generic Name NDC Status Provider Patient Instruction MECLIZINE HCL 25 MG TABS 1 prn MECLIZINE HCL 63444286655 No Longer Active Solomon Alamo MD Active CHERATUSSIN AC SYRP prn as directed GUAIFENESIN- CODEINE SYRP 26355830477 No Longer Active Rikki Stearns DARWIN Active MULTIVITAMINS TABS 1qd MULTIPLE VITAMIN 13357409168 No Longer Active Rikki Stearns PA Active CLARITIN 10 MG TABS 1prn LORATADINE 48305318065 Active Jocelyne Naff FRONT DESK MONITOR Active ASPIRIN 81 MG TABS 1qd ASPIRIN 22043162944 Active Jocelyne Naff FRONT DESK MONITOR Active OMEPRAZOLE 20 MG CPDR 1 PO Q D OMEPRAZOLE 57155504280 Active Rikki Stearns PA Active ZITHROMAX Z-CAROLYN 250 MG TABS 2x1day,0u1ykfz AZITHROMYCIN 12973764811 No Longer Active Jocelyne Naff FRONT DESK MONITOR Active MULTIVITAMINS TABS 1qd MULTIVITAMINS TABS MULTIPLE VITAMIN Inactive CHERATUSSIN AC SYRP prn as directed CHERATUSSIN AC SYRP GUAIFENESIN-CODEINE SYRP Inactive MECLIZINE HCL 25 MG TABS 1 prn MECLIZINE HCL 25 MG TABS 968944 MECLIZINE HCL Inactive ZITHROMAX Z-CAROLYN 250 MG TABS 2x1day,8s3buow ZITHROMAX Z-CAROLYN 250 MG TABS 0845494 AZITHROMYCIN Inactive Vital Signs Date Name Value [...] Measured Encounters Code Encounter Date Provider Facility CPT-38407 Level 3 Est. Patient 08:02:14 CDT Solomon Alamo MD [facility] CPT-02405 Level 3 Est. Patient 17:23:53 CDT Rikki Stearns [facility] CPT-38757 Level 3 Est. Patient 11:22:41 CDT Darryn Hearn [facility] Procedures Code Procedure Name Date Entry Date Standard Description CPT-58932 Bone Density 11:35:15 CDT CPT-PV Prev. Care Visit 12:19:00 CDT CPT-87629 Venipuncture Draw Fee 15:02:58 CDT
--- OUTSIDE RECORDS SUMMARY | 2018-01-19 08:31 | XMS REPORT | Clinical Summary ---
Author Author Admin, E Organization [facility] Address Unknown Phone Unavailable Allergies, Adverse Reactions, Alerts Allergy Name Reaction Description Start Date Severity Status Provider SULFA facial swelling Critical Active Jocelyne Lovell LPN Conditions or Problems Problem Name Problem Code Onset Date Status Entry Date Provider Comment Standard Description Annotate G E R D 530.81 Active Jocelyne Tsaif CARDIOGRAPH OPERATOR Esophageal reflux FH COLON CANCER V16.0 Active Jocelyne Naff CARDIOGRAPH OPERATOR Family history of malignant neoplasm of [...] then 1 po q days 2-5 AZITHROMYCIN 65534221998 No Longer Active Rikki Harms PA Active MECLIZINE HCL 25 MG TABS 1 prn MECLIZINE HCL 27199830768 No Longer Active Solomon Alamo MD Active CHERATUSSIN AC SYRP prn as directed GUAIFENESIN- CODEINE SYRP 75856558996 No Longer Active Rikki Harms PA Active MULTIVITAMINS TABS 1qd MULTIPLE VITAMIN 50914494520 No Longer Active Rikki Harms PA Active CLARITIN 10 MG TABS 1prn LORATADINE 45808848148 Active Jocelyne Naff CARDIOGRAPH OPERATOR Active ASPIRIN 81 MG TABS 1qd ASPIRIN 20185469654 Active Jocelyne Naff CARDIOGRAPH OPERATOR Active OMEPRAZOLE 20 MG CPDR 1 PO Q D OMEPRAZOLE 24902990357 Active Rikki Harms PA Active ZITHROMAX Z-CAROLYN 250 MG TABS 2x1day,4g8egpl AZITHROMYCIN 61799942637 No Longer Active Jocelyne Naff CARDIOGRAPH OPERATOR Active MULTIVITAMINS TABS 1qd MULTIVITAMINS TABS MULTIPLE VITAMIN Inactive CHERATUSSIN AC SYRP prn as directed CHERATUSSIN AC SYRP GUAIFENESIN-CODEINE SYRP Inactive MECLIZINE HCL 25 MG TABS 1 prn MECLIZINE HCL 25 MG TABS 558860 MECLIZINE HCL Inactive ZITHROMAX Z-CAROLYN 250 MG TABS 2x1day,3i3lvkn ZITHROMAX Z-CAROLYN 250 MG TABS 4782196 AZITHROMYCIN Inactive ZITHROMAX 250 MG TAB 2 po today, then 1 po q days 2-5 ZITHROMAX 250 MG TAB 3187890 AZITHROMYCIN Inactive Vital Signs Date Name Value [...] % 11.6-14.8 platelet count 131 10^3/MM^3 10*3/mm3 918-941 8227/12/10 erythrocyte (RBC) count 4.93 10^6/MM^3 10*6/mm3 4.04-5.48 [...] % 11.6-14.8 platelet count 237 10^3/MM^3 10*3/mm3 198-673 7594/12/12 neutrophils as percent of blood leukocytes 19.0 [...] % 11.6-14.8 platelet count 360 10^3/MM^3 10*3/mm3 142-424 Lab Report: CBC W/DIFF, Comp. Metabolic Panel - Chemistry sodium, serum 144 mmol/L 820-399 9495/12/16 potassium, serum 4.5 mmol/L 3.5-5.2 chloride, serum [...] 11.6-14.8 platelet count 239 10^3/MM^3 10*3/mm3 142-424 Encounters Code Encounter Date Provider Facility CPT-70110 Level 3 Est. Patient 17:31:22 CDT Solomon Alamo MD [facility] CPT-45482 Level 3 Est. Patient 08:02:14 CDT Solomon Alamo MD [facility] CPT-70490 Level 3 Est. Patient 17:23:53 CDT Rikki Stearns [facility] CPT-02788 Level 3 Est. Patient 11:22:41 CDT Darryn Hearn [facility] Procedures Code Procedure Name Date Entry Date Standard Description CPT-94602 Venipuncture Draw Fee 11:42:52 CREMATORY ATTENDANT CPT-72904 Venipuncture Draw Fee 13:26:37 CREMATORY ATTENDANT CPT-09407 Venipuncture Draw Fee 09:23:38 CREMATORY ATTENDANT CPT-000 Give Appropriate Tetanus Booster 10:23:50 CDT CPT-64258 Bone Density 08:28:45 CDT CPT-83127 Bone Density 11:35:15 CDT CPT-PV Prev. Care Visit 12:19:00 CDT CPT-43994 Venipuncture Draw Fee 15:02:58 CDT
--- OUTSIDE RECORDS SUMMARY | 2018-01-19 08:32 | XMS REPORT | Clinical Summary ---
Author Author Admin, E Organization [facility] Address Unknown Phone Unavailable Allergies, Adverse Reactions, Alerts Allergy Name Reaction Description Start Date Severity Status Provider SULFA facial swelling Critical Active Jocelynemax Lovell LPN Conditions or Problems Problem Name Problem Code Onset Date Status Entry Date Provider Comment Standard Description Annotate G E R D 530.81 Active Jocelyne Naff SPECIALTY PERSON Esophageal reflux FH COLON CANCER V16.0 Active Jocelyne Naff SPECIALTY PERSON Family history of malignant neoplasm of gastrointestinal [...] then 1 po q days 2-5 AZITHROMYCIN 69747820585 No Longer Active Rikik Harms PA Active MECLIZINE HCL 25 MG TABS 1 prn MECLIZINE HCL 44698505837 No Longer Active Solomon Alamo MD Active CHERATUSSIN AC SYRP prn as directed GUAIFENESIN- CODEINE SYRP 95613167793 No Longer Active Rikki Harms PA Active MULTIVITAMINS TABS 1qd MULTIPLE VITAMIN 88322646878 No Longer Active Rikki Harms PA Active CLARITIN 10 MG TABS 1prn LORATADINE 71948487763 Active Jocelyne Naff SPECIALTY PERSON Active ASPIRIN 81 MG TABS 1qd ASPIRIN 42258066801 Active Jocelyne Naff SPECIALTY PERSON Active OMEPRAZOLE 20 MG CPDR 1 PO Q D OMEPRAZOLE 02031625436 Active Rikki Harms PA Active ZITHROMAX Z-CAROLYN 250 MG TABS 2x1day,2a2awvh AZITHROMYCIN 61515387765 No Longer Active Jocelyne Naff SPECIALTY PERSON Active MULTIVITAMINS TABS 1qd MULTIVITAMINS TABS MULTIPLE VITAMIN Inactive CHERATUSSIN AC SYRP prn as directed CHERATUSSIN AC SYRP GUAIFENESIN-CODEINE SYRP Inactive MECLIZINE HCL 25 MG TABS 1 prn MECLIZINE HCL 25 MG TABS 898722 MECLIZINE HCL Inactive ZITHROMAX Z-CAROLYN 250 MG TABS 2x1day,4v7cxqx ZITHROMAX Z-CAROLYN 250 MG TABS 3962143 AZITHROMYCIN Inactive ZITHROMAX 250 MG TAB 2 po today, then 1 po q days 2-5 ZITHROMAX 250 MG TAB 9525521 AZITHROMYCIN Inactive Vital Signs Date Name Value [...] % 11.6-14.8 platelet count 131 10^3/MM^3 10*3/mm3 613-557 5524/12/12 leukocyte count, blood 28.6 10^3/MM^3 10*3/mm3 4.6-10.2 [...] % 11.6-14.8 platelet count 237 10^3/MM^3 10*3/mm3 142-424 Lab Report: CBC W/DIFF, Comp. Metabolic Panel - Chemistry sodium, serum 144 mmol/L 403-697 6487/12/16 potassium, serum 4.5 mmol/L 3.5-5.2 chloride, serum [...] 142-424 Encounters Code Encounter Date Provider Facility CPT-78049 Level 3 Est. Patient 17:31:22 CDT Solomon Alamo MD [facility] CPT-00580 Level 3 Est. Patient 08:02:14 CDT Solomon Alamo MD [facility] CPT-43827 Level 3 Est. Patient 17:23:53 CDT Rikki Stearns [facility] CPT-16052 Level 3 Est. Patient 11:22:41 CDT Darryn Hearn [facility] Procedures Code Procedure Name Date Entry Date Standard Description CPT-10188 Venipuncture Draw Fee 11:42:52 DOG SHOW JUDGE CPT-22892 Venipuncture Draw Fee 13:26:37 DOG SHOW JUDGE CPT-62497 Venipuncture Draw Fee 09:23:38 DOG SHOW JUDGE CPT-000 Give Appropriate Tetanus Booster 10:23:50 CDT CPT-83983 Bone Density 08:28:45 CDT CPT-01668 Bone Density 11:35:15 CDT CPT-PV Prev. Care Visit 12:19:00 CDT CPT-52922 Venipuncture Draw Fee 15:02:58 CDT
--- OUTSIDE RECORDS SUMMARY | 2018-01-19 08:32 | XMS REPORT | Clinical Summary ---
Author Author Admin, E Organization [facility] Address Unknown Phone Unavailable Allergies, Adverse Reactions, Alerts Allergy Name Reaction Description Start Date Severity Status Provider SULFA facial swelling Critical Active Jocelyne Lovell LPN Conditions or Problems Problem Name Problem Code Onset Date Status Entry Date Provider Comment Standard Description Annotate G E R D 530.81 Active Jocelyne Naff MACHINE FUR CLEANER Esophageal reflux FH COLON CANCER V16.0 Active Jocelyne Naff MACHINE FUR CLEANER Family history of malignant neoplasm of gastrointestinal [...] then 1 po q days 2-5 AZITHROMYCIN 29232271013 No Longer Active Rikki Harms PA Active MECLIZINE HCL 25 MG TABS 1 prn MECLIZINE HCL 24781081786 No Longer Active Solomon Alamo MD Active CHERATUSSIN AC SYRP prn as directed GUAIFENESIN- CODEINE SYRP 07989355299 No Longer Active Rikki Harms PA Active MULTIVITAMINS TABS 1qd MULTIPLE VITAMIN 45050660576 No Longer Active Rikki Harms PA Active CLARITIN 10 MG TABS 1prn LORATADINE 14039169096 Active Jocelyne Naff MACHINE FUR CLEANER Active ASPIRIN 81 MG TABS 1qd ASPIRIN 07744288165 Active Jocelyne Naff MACHINE FUR CLEANER Active OMEPRAZOLE 20 MG CPDR 1 PO Q D OMEPRAZOLE 93882026402 Active Rikki Harms PA Active ZITHROMAX Z-CAROLYN 250 MG TABS 2x1day,0q3qexc AZITHROMYCIN 18462577962 No Longer Active Jocelyne Naff MACHINE FUR CLEANER Active MULTIVITAMINS TABS 1qd MULTIVITAMINS TABS MULTIPLE VITAMIN Inactive CHERATUSSIN AC SYRP prn as directed CHERATUSSIN AC SYRP GUAIFENESIN-CODEINE SYRP Inactive MECLIZINE HCL 25 MG TABS 1 prn MECLIZINE HCL 25 MG TABS 055444 MECLIZINE HCL Inactive ZITHROMAX Z-CAROLYN 250 MG TABS 2x1day,1y2kmnz ZITHROMAX Z-CAROLYN 250 MG TABS 3029476 AZITHROMYCIN Inactive ZITHROMAX 250 MG TAB 2 po today, then 1 po q days 2-5 ZITHROMAX 250 MG TAB 2787135 AZITHROMYCIN Inactive Vital Signs Date Name Value [...] % 11.6-14.8 platelet count 131 10^3/MM^3 10*3/mm3 557-501 1221/12/12 leukocyte count, blood 28.6 10^3/MM^3 10*3/mm3 4.6-10.2 [...] % 11.6-14.8 platelet count 237 10^3/MM^3 10*3/mm3 411-428 3540/12/10 mean corpuscular hemoglobin concentration, RBC 33.5 G/DL % 31.8- 35.4 mean corpuscular hemoglobin, RBC 30.1 pg 27.0-31.2 mean corpuscular volume, RBC 90 fL 80-97 hematocrit, blood 44.3 % 36.0-46.0 hemoglobin, blood 14.8 g/dL 12.0-16.0 erythrocyte (RBC) count 4.93 10^6/MM^3 10*6/mm3 4.04-5.48 lymphocytes as percent of blood leukocytes 65.9 % 20.5-51.1 monocytes as percent of blood leukocytes 25.7 % 1.7-9.3 neutrophils as percent of blood leukocytes 1.4 % 42.2-75.2 leukocyte count, blood 1.3 10^3/MM^3 10*3/mm3 4.6-10.2 leukocyte count, blood 6.9 10^3/MM^3 10*3/mm3 4.6-10.2 [...] % 11.6-14.8 platelet count 360 10^3/MM^3 10*3/mm3 022-189 4540/12/31 leukocyte count, blood 5.3 10^3/MM^3 10*3/mm3 4.6-10.2 [...] % 11.6-14.8 platelet count 222 10^3/MM^3 10*3/mm3 142-424 Lab Report: CBC W/DIFF, Comp. Metabolic Panel - Chemistry sodium, serum 144 mmol/L 106-421 0444/12/16 potassium, serum 4.5 mmol/L 3.5-5.2 chloride, serum [...] 142-424 Encounters Code Encounter Date Provider Facility CPT-42464 Level 3 Est. Patient 17:31:22 CDT Solomon Alamo MD [facility] CPT-19464 Level 3 Est. Patient 08:02:14 CDT Solomon Alamo MD [facility] CPT-50016 Level 3 Est. Patient 17:23:53 CDT Rikki Stearns [facility] CPT-25848 Level 3 Est. Patient 11:22:41 CDT Darryn Hearn [facility] Procedures Code Procedure Name Date Entry Date Standard Description CPT-90577 Venipuncture Draw Fee 08:31:18 BLUEPRINT DEVELOPER CPT-30411 Venipuncture Draw Fee 11:42:52 BLUEPRINT DEVELOPER CPT-36703 Venipuncture Draw Fee 13:26:37 BLUEPRINT DEVELOPER CPT-31837 Venipuncture Draw Fee 09:23:38 BLUEPRINT DEVELOPER CPT-000 Give Appropriate Tetanus Booster 10:23:50 CDT CPT-55968 Bone Density 08:28:45 CDT CPT-01831 Bone Density 11:35:15 CDT CPT-PV Prev. Care Visit 12:19:00 CDT CPT-71659 Venipuncture Draw Fee 15:02:58 CDT
--- OUTSIDE RECORDS SUMMARY | 2018-01-19 08:32 | XMS REPORT | Clinical Summary ---
Author Author Admin, E Organization [facility] Address Unknown Phone Unavailable Allergies, Adverse Reactions, Alerts Allergy Name Reaction Description Start Date Severity Status Provider SULFA facial swelling Critical Active Jocelyne Quinf DIRECTOR OF TEACHING AND LEARNING Conditions or Problems Problem Name Problem Code Onset Date Status Entry Date Provider Comment Standard Description Annotate G E R D 530.81 Active Jocelyne Naff DIRECTOR OF TEACHING AND LEARNING Esophageal reflux FH COLON CANCER V16.0 Active Jocelyne Naff DIRECTOR OF TEACHING AND LEARNING Family history of malignant neoplasm of gastrointestinal [...] Active Jennifer Chun MD PhD Mammographic microcalcification Medication List Medication Instructions Start Date Stop Date Generic Name HIC Status Provider Patient Instruction MECLIZINE HCL 25 MG TABS 1 prn MECLIZINE HCL 32365133131 Active Rikki Stearns PA Active CHERATUSSIN AC SYRP prn as directed GUAIFENESIN- CODEINE SYRP 24039657021 No Longer Active Rikki GRANADOS Active MULTIVITAMINS TABS 1qd MULTIPLE VITAMIN 36987250524 No Longer Active Rikki Stearns PA Active CLARITIN 10 MG TABS 1prn LORATADINE 08359827813 Active Jocelyne Quinf DIRECTOR OF TEACHING AND LEARNING Active ASPIRIN 81 MG TABS 1qd ASPIRIN 04021453654 Active Jocelyne Lovell DIRECTOR OF TEACHING AND LEARNING Active OMEPRAZOLE 20 MG CPDR 1 PO Q D OMEPRAZOLE 35333771299 Active Rikki GRANADOS Active ZITHROMAX Z-CAROLYN 250 MG TABS 2x1day,9t4uhdo AZITHROMYCIN 19192232539 No Longer Active Jocelyne Lovell DIRECTOR OF TEACHING AND LEARNING Active MULTIVITAMINS TABS 1qd MULTIVITAMINS TABS MULTIPLE VITAMIN Inactive CHERATUSSIN AC SYRP prn as directed CHERATUSSIN AC SYRP GUAIFENESIN-CODEINE SYRP Inactive ZITHROMAX Z-CAROLYN 250 MG TABS 2x1day,1a0pmge ZITHROMAX Z-CAROLYN 250 MG TABS 3603118 AZITHROMYCIN Inactive Vital Signs Date Name Value Unit Range Description blood pressure, diastolic - 8462-4 72 mm[Hg] BP rivera blood pressure, systolic - 8480-6 122 mm[Hg] BP sys pulse rate E&M - 8867-4 80 /min Heart rate temperature E&M 99.1 [degF] Body temperature weight E&M - 3141-9 200 [lb_av] Weight Measured Encounters Code Encounter Date Provider Facility CPT-85847 Level 3 Est. Patient 17:23:53 CDT Rikki GRANADOS [facility] CPT-26860 Level 3 Est. Patient 11:22:41 CDT Darryn Hearn [facility] Procedures Code Procedure Name Date Entry Date Standard Description CPT-11665 Venipuncture Draw Fee 15:02:58 CDT
--- OUTSIDE RECORDS SUMMARY | 2018-01-19 08:32 | XMS REPORT | Clinical Summary ---
Author Author Admin, E Organization [facility] Address Unknown Phone Unavailable Allergies, Adverse Reactions, Alerts Allergy Name Reaction Description Start Date Severity Status Provider SULFA facial swelling Critical Active Jocelyne Naff COOK'S ASSISTANT Conditions or Problems Problem Name Problem Code Onset Date Status Entry Date Provider Comment Standard Description Annotate G E R D 530.81 Active Jocelyne Naff COOK'S ASSISTANT Esophageal reflux FH COLON CANCER V16.0 Active Jocelyne Naff COOK'S ASSISTANT Family history of malignant neoplasm of [...] gynecological examination Postmenopausal status V49.81 Active Chante RYEES Asymptomatic postmenopausal status (age-related) (natural) Medication List Medication Instructions Start Date Stop Date Generic Name NDC Status Provider Patient Instruction MECLIZINE HCL 25 MG TABS 1 prn MECLIZINE HCL 32775488668 No Longer Active Solomon Alamo MD Active CHERATUSSIN AC SYRP prn as directed GUAIFENESIN- CODEINE SYRP 80721736286 No Longer Active Rikki Stearns DARWIN Active MULTIVITAMINS TABS 1qd MULTIPLE VITAMIN 49571693947 No Longer Active Rikki Stearns PA Active CLARITIN 10 MG TABS 1prn LORATADINE 15152908068 Active Jocelyne Naff COOK'S ASSISTANT Active ASPIRIN 81 MG TABS 1qd ASPIRIN 57075622262 Active Jocelyne Naff COOK'S ASSISTANT Active OMEPRAZOLE 20 MG CPDR 1 PO Q D OMEPRAZOLE 87863959442 Active Rikki Stearns PA Active ZITHROMAX Z-CAROLYN 250 MG TABS 2x1day,4q5gmik AZITHROMYCIN 75981034946 No Longer Active Jocelyne Naff COOK'S ASSISTANT Active MULTIVITAMINS TABS 1qd MULTIVITAMINS TABS MULTIPLE VITAMIN Inactive CHERATUSSIN AC SYRP prn as directed CHERATUSSIN AC SYRP GUAIFENESIN-CODEINE SYRP Inactive MECLIZINE HCL 25 MG TABS 1 prn MECLIZINE HCL 25 MG TABS 923632 MECLIZINE HCL Inactive ZITHROMAX Z-CAROLYN 250 MG TABS 2x1day,5h2jfmo ZITHROMAX Z-CAROLYN 250 MG TABS 2930440 AZITHROMYCIN Inactive Vital Signs Date Name Value [...] Measured Encounters Code Encounter Date Provider Facility CPT-23884 Level 3 Est. Patient 08:02:14 CDT Solomon Alamo MD [facility] CPT-16576 Level 3 Est. Patient 17:23:53 CDT Rikki Stearns [facility] CPT-75522 Level 3 Est. Patient 11:22:41 CDT Darryn Hearn [facility] Procedures Code Procedure Name Date Entry Date Standard Description CPT-47001 Bone Density 08:28:45 CDT CPT-60124 Bone Density 11:35:15 CDT CPT-PV Prev. Care Visit 12:19:00 CDT CPT-20408 Venipuncture Draw Fee 15:02:58 CDT
--- OUTSIDE RECORDS SUMMARY | 2018-01-19 08:32 | XMS REPORT | Clinical Summary ---
Author Author Admin, E Organization [facility] Address Unknown Phone Unavailable Allergies, Adverse Reactions, Alerts Allergy Name Reaction Description Start Date Severity Status Provider SULFA facial swelling Critical Active Jocelynemax Lovell LPN Conditions or Problems Problem Name Problem Code Onset Date Status Entry Date Provider Comment Standard Description Annotate G E R D 530.81 Active Jocelyne Naff MAIL SORTING SUPERVISOR Esophageal reflux FH COLON CANCER V16.0 Active Jocelyne Naff MAIL SORTING SUPERVISOR Family history of malignant neoplasm of [...] then 1 po q days 2-5 AZITHROMYCIN 44463856750 No Longer Active Rikki Harms PA Active MECLIZINE HCL 25 MG TABS 1 prn MECLIZINE HCL 23024959164 No Longer Active Solomon Alamo MD Active CHERATUSSIN AC SYRP prn as directed GUAIFENESIN- CODEINE SYRP 23535530515 No Longer Active Rikki Harms PA Active MULTIVITAMINS TABS 1qd MULTIPLE VITAMIN 60309244844 No Longer Active Rikki Harms PA Active CLARITIN 10 MG TABS 1prn LORATADINE 80045535687 Active Jocelyne Naff MAIL SORTING SUPERVISOR Active ASPIRIN 81 MG TABS 1qd ASPIRIN 48195911345 Active Jocelyne Naff MAIL SORTING SUPERVISOR Active OMEPRAZOLE 20 MG CPDR 1 PO Q D OMEPRAZOLE 46535248425 Active Rikki Harms PA Active ZITHROMAX Z-CAROLYN 250 MG TABS 2x1day,8z1wlzt AZITHROMYCIN 21502001056 No Longer Active Jocelyne Naff MAIL SORTING SUPERVISOR Active MULTIVITAMINS TABS 1qd MULTIVITAMINS TABS MULTIPLE VITAMIN Inactive CHERATUSSIN AC SYRP prn as directed CHERATUSSIN AC SYRP GUAIFENESIN-CODEINE SYRP Inactive MECLIZINE HCL 25 MG TABS 1 prn MECLIZINE HCL 25 MG TABS 508213 MECLIZINE HCL Inactive ZITHROMAX Z-CAROLYN 250 MG TABS 2x1day,5t2rqwb ZITHROMAX Z-CAROLYN 250 MG TABS 7232844 AZITHROMYCIN Inactive ZITHROMAX 250 MG TAB 2 po today, then 1 po q days 2-5 ZITHROMAX 250 MG TAB 1918289 AZITHROMYCIN Inactive Vital Signs Date Name Value [...] % 11.6-14.8 platelet count 131 10^3/MM^3 10*3/mm3 398-950 4458/12/12 leukocyte count, blood 28.6 10^3/MM^3 10*3/mm3 4.6-10.2 [...] % 11.6-14.8 platelet count 237 10^3/MM^3 10*3/mm3 213-082 7820/12/23 leukocyte count, blood 6.9 10^3/MM^3 10*3/mm3 4.6-10.2 [...] Panel - Chemistry sodium, serum 144 mmol/L 319-187 5133/12/16 potassium, serum 4.5 mmol/L 3.5-5.2 chloride, serum [...] 142-424 Encounters Code Encounter Date Provider Facility CPT-78923 Level 3 Est. Patient 17:31:22 CDT Solomon Alamo MD [facility] CPT-63165 Level 3 Est. Patient 08:02:14 CDT Solomon Alamo MD [facility] CPT-21930 Level 3 Est. Patient 17:23:53 CDT Rikki Stearns [facility] CPT-23069 Level 3 Est. Patient 11:22:41 CDT Darryn Hearn [facility] Procedures Code Procedure Name Date Entry Date Standard Description CPT-20831 Venipuncture Draw Fee 11:42:52 PESTICIDE CHEMIST CPT-12953 Venipuncture Draw Fee 13:26:37 PESTICIDE CHEMIST CPT-02600 Venipuncture Draw Fee 09:23:38 PESTICIDE CHEMIST CPT-000 Give Appropriate Tetanus Booster 10:23:50 CDT CPT-36286 Bone Density 08:28:45 CDT CPT-40294 Bone Density 11:35:15 CDT CPT-PV Prev. Care Visit 12:19:00 CDT CPT-16986 Venipuncture Draw Fee 15:02:58 CDT
--- OUTSIDE RECORDS SUMMARY | 2018-01-19 08:32 | XMS REPORT | Clinical Summary ---
Author Author Admin, E Organization [facility] Address Unknown Phone Unavailable Allergies, Adverse Reactions, Alerts Allergy Name Reaction Description Start Date Severity Status Provider SULFA facial swelling Critical Active Jocelyne Naff LINE RUNNER Conditions or Problems Problem Name Problem Code Onset Date Status Entry Date Provider Comment Standard Description Annotate G E R D 530.81 Active Jocelyne Naff LINE RUNNER Esophageal reflux FH COLON CANCER V16.0 Active Jocelyne Naff LINE RUNNER Family history of malignant neoplasm of gastrointestinal [...] 25 MG TABS 1 prn MECLIZINE HCL 70992041766 Active Rikki GRANADOS Active CHERATUSSIN AC SYRP prn as directed GUAIFENESIN- CODEINE SYRP 45549020555 No Longer Active Rikki GRANADOS Active MULTIVITAMINS TABS 1qd MULTIPLE VITAMIN 65126507332 No Longer Active Rikki GRANADOS Active CLARITIN 10 MG TABS 1prn LORATADINE 29337146445 Active Jocelyne Tsaif LINE RUNNER Active ASPIRIN 81 MG TABS 1qd ASPIRIN 91384035202 Active Jocelyne Naff LINE RUNNER Active OMEPRAZOLE 20 MG CPDR 1 PO Q D OMEPRAZOLE 46630510332 Active Rikki GRANADOS Active ZITHROMAX Z-CAROLYN 250 MG TABS 2x1day,6p3tgcw AZITHROMYCIN 75905537513 No Longer Active Jocelyne Lovell LINE RUNNER Active MULTIVITAMINS TABS 1qd MULTIVITAMINS TABS MULTIPLE VITAMIN Inactive CHERATUSSIN AC SYRP prn as directed CHERATUSSIN AC SYRP GUAIFENESIN-CODEINE SYRP Inactive ZITHROMAX Z-CAROLYN 250 MG TABS 2x1day,9k9ryee ZITHROMAX Z-CAROLYN 250 MG TABS 5300659 AZITHROMYCIN Inactive Vital Signs Date Name Value Unit Range Description blood pressure, diastolic - 8462-4 72 mm[Hg] BP rivera blood pressure, systolic - 8480-6 122 mm[Hg] BP sys pulse rate E&M - 8867-4 80 /min Heart rate temperature E&M 99.1 [degF] Body temperature weight E&M - 3141-9 200 [lb_av] Weight Measured Encounters Code Encounter Date Provider Facility CPT-90373 Level 3 Est. Patient 17:23:53 CDT Rikki GRANADOS [facility] CPT-27625 Level 3 Est. Patient 11:22:41 CDT Darryn Hearn [facility] Procedures Code Procedure Name Date Entry Date Standard Description CPT-44424 Venipuncture Draw Fee 15:02:58 CDT
--- OUTSIDE RECORDS SUMMARY | 2018-01-19 08:33 | XMS REPORT | Clinical Summary ---
[...] E R D 530.81 Active Jocelyne Naff OFFICE ENGINEER Esophageal reflux FH COLON CANCER V16.0 Active Jocelyne Naff OFFICE ENGINEER Family history of malignant neoplasm of [...] then 1 po q days 2-5 AZITHROMYCIN 83998778489 No Longer Active Rikki Harms PA Active MECLIZINE HCL 25 MG TABS 1 prn MECLIZINE HCL 30727296773 No Longer Active Solomon Alamo MD Active CHERATUSSIN AC SYRP prn as directed GUAIFENESIN- CODEINE SYRP 66618321874 No Longer Active Rikki Harms PA Active MULTIVITAMINS TABS 1qd MULTIPLE VITAMIN 93671733817 No Longer Active Rikki Harms PA Active CLARITIN 10 MG TABS 1prn LORATADINE 64663828835 Active Jocelyne Naff OFFICE ENGINEER Active ASPIRIN 81 MG TABS 1qd ASPIRIN 93799368408 Active Jocelyne Naff OFFICE ENGINEER Active OMEPRAZOLE 20 MG CPDR 1 PO Q D OMEPRAZOLE 99201068030 Active Rikki Harms PA Active ZITHROMAX Z-CAROLYN 250 MG TABS 2x1day,9g7gygc AZITHROMYCIN 13068511744 No Longer Active Jocelyne Naff OFFICE ENGINEER Active MULTIVITAMINS TABS 1qd MULTIVITAMINS TABS MULTIPLE VITAMIN Inactive CHERATUSSIN AC SYRP prn as directed CHERATUSSIN AC SYRP GUAIFENESIN-CODEINE SYRP Inactive MECLIZINE HCL 25 MG TABS 1 prn MECLIZINE HCL 25 MG TABS 131341 MECLIZINE HCL Inactive ZITHROMAX Z-CAROLYN 250 MG TABS 2x1day,4w8gwas ZITHROMAX Z-CAROLYN 250 MG TABS 0629635 AZITHROMYCIN Inactive ZITHROMAX 250 MG TAB 2 po today, then 1 po q days 2-5 ZITHROMAX 250 MG TAB 5523234 AZITHROMYCIN Inactive Vital Signs Date Name Value [...] % 11.6-14.8 platelet count 360 10^3/MM^3 10*3/mm3 603-569 8134/12/31 leukocyte count, blood 5.3 10^3/MM^3 10*3/mm3 4.6-10.2 [...] % 11.6-14.8 platelet count 222 10^3/MM^3 10*3/mm3 575-361 9174/01/07 leukocyte count, blood 11.7 10^3/MM^3 10*3/mm3 4.6-10.2 [...] % 11.6-14.8 platelet count 191 10^3/MM^3 10*3/mm3 788-009 9671/12/10 red blood cell distribution width 14.5 % 11.6-14.8 platelet count 131 10^3/MM^3 10*3/mm3 034-274 1197/12/10 erythrocyte (RBC) count 4.93 10^6/MM^3 10*6/mm3 4.04-5.48 [...] % 11.6-14.8 platelet count 237 10^3/MM^3 10*3/mm3 051-462 5303/12/10 mean corpuscular hemoglobin concentration, RBC 33.5 G/DL % 31.8- 35.4 mean corpuscular hemoglobin, RBC 30.1 pg 27.0-31.2 mean corpuscular volume, RBC 90 fL 80-97 hematocrit, blood 44.3 % 36.0-46.0 hemoglobin, blood 14.8 g/dL 12.0-16.0 leukocyte count, blood 9.8 10^3/MM^3 [...] % 11.6-14.8 platelet count 195 10^3/MM^3 10*3/mm3 290-277 0094/01/28 leukocyte count, blood 11.9 10^3/MM^3 10*3/mm3 4.6-10.2 [...] % 11.6-14.8 platelet count 278 10^3/MM^3 10*3/mm3 689-849 9796/02/04 leukocyte count, blood 8.5 10^3/MM^3 10*3/mm3 4.6-10.2 [...] % 11.6-14.8 platelet count 326 10^3/MM^3 10*3/mm3 818-467 7485/02/10 leukocyte count, blood 2.3 10^3/MM^3 10*3/mm3 4.6-10.2 [...] % 11.6-14.8 platelet count 240 10^3/MM^3 10*3/mm3 769-867 3788/02/17 leukocyte count, blood 3.4 10^3/MM^3 10*3/mm3 4.6-10.2 [...] % 11.6-14.8 platelet count 308 10^3/MM^3 10*3/mm3 142-424 Lab Report: CBC W/DIFF, Comp. Metabolic Panel - Chemistry sodium, serum 144 mmol/L 037-699 6498/12/16 potassium, serum 4.5 mmol/L 3.5-5.2 chloride, serum 107 mmol/L 98-107 carbon dioxide, venous blood 31.4 mmol/L 21.0-32.0 blood glucose 104 mg/dL 65-110 urea nitrogen, blood 17 mg/dL 7-18 creatinine, serum 1.10 mg/dL 0.60-1.30 alanine aminotransferase (SGPT), serum 25 U/L 12-78 aspartate aminotransferase (SGOT), serum 24 U/L 15-37 calcium, serum 8.4 mg/dL 8.5-10.1 bilirubin, serum, total 0.20 mg/dL 0.00-1.00 sodium, serum 141 mmol/L 034-953 0788/01/14 potassium, serum 4.9 mmol/L 3.5-5.2 chloride, serum [...] % 11.6-14.8 platelet count 239 10^3/MM^3 10*3/mm3 872-810 4224/01/14 leukocyte count, blood 6.7 10^3/MM^3 10*3/mm3 4.6-10.2 [...] Panel - Chemistry sodium, serum 141 mmol/L 956-722 2027/02/10 potassium, serum 5.2 mmol/L 3.5-5.2 chloride, serum [...] 0.00-1.00 Encounters Code Encounter Date Provider Facility CPT-96141 Level 3 Est. Patient 17:31:22 CDT Solomon Alamo MD [facility] CPT-85510 Level 3 Est. Patient 08:02:14 CDT Solomon Alamo MD [facility] CPT-74453 Level 3 Est. Patient 17:23:53 CDT Rikki GRANADOS [facility] CPT-04047 Level 3 Est. Patient 11:22:41 CDT Darryn Hearn [facility] Procedures Code Procedure Name Date Entry Date Standard Description CPT-46609 Venipuncture Draw Fee 08:16:46 QA CONSULTANT CPT-70869 Venipuncture Draw Fee 08:18:55 QA CONSULTANT CPT-64062 Venipuncture Draw Fee 08:31:18 QA CONSULTANT CPT-07911 Venipuncture Draw Fee 11:42:52 QA CONSULTANT CPT-75712 Venipuncture Draw Fee 13:26:37 QA CONSULTANT CPT-37820 Venipuncture Draw Fee 09:23:38 QA CONSULTANT CPT-000 Give Appropriate Tetanus Booster 10:23:50 CDT CPT-65255 Bone Density 08:28:45 CDT CPT-13942 Bone Density 11:35:15 CDT CPT-PV Prev. Care Visit 12:19:00 CDT CPT-88817 Venipuncture Draw Fee 15:02:58 CDT
--- OUTSIDE RECORDS SUMMARY | 2018-01-19 08:33 | XMS REPORT | Clinical Summary ---
Author Author Admin, E Organization [facility] Address Unknown Phone Unavailable Allergies, Adverse Reactions, Alerts Allergy Name Reaction Description Start Date Severity Status Provider SULFA facial swelling Critical Active Jocelyne Quindomenica FIELD SERVICE TECHNICIAN POULTRY Conditions or Problems Problem Name Problem Code Onset Date Status Entry Date Provider Comment Standard Description Annotate G E R D 530.81 Active Jocelyne Naff FIELD SERVICE TECHNICIAN POULTRY Esophageal reflux FH COLON CANCER V16.0 Active Jocelyne Naff FIELD SERVICE TECHNICIAN POULTRY Family history of malignant neoplasm of gastrointestinal [...] then 1 po q days 2-5 AZITHROMYCIN 93860918620 No Longer Active Rikki Harms PA Active MECLIZINE HCL 25 MG TABS 1 prn MECLIZINE HCL 86434736141 No Longer Active Solomon Alamo MD Active CHERATUSSIN AC SYRP prn as directed GUAIFENESIN- CODEINE SYRP 71580988791 No Longer Active Rikki Harms PA Active MULTIVITAMINS TABS 1qd MULTIPLE VITAMIN 55360549723 No Longer Active Rikki Harms PA Active CLARITIN 10 MG TABS 1prn LORATADINE 66499436743 Active Jocelyne Naff FIELD SERVICE TECHNICIAN POULTRY Active ASPIRIN 81 MG TABS 1qd ASPIRIN 48743744673 Active Jocelyne Naff FIELD SERVICE TECHNICIAN POULTRY Active OMEPRAZOLE 20 MG CPDR 1 PO Q D OMEPRAZOLE 61813798193 Active Rikki Harms PA Active ZITHROMAX Z-CAROLYN 250 MG TABS 2x1day,6d4hadi AZITHROMYCIN 73703417448 No Longer Active Jocelyne Naff FIELD SERVICE TECHNICIAN POULTRY Active MULTIVITAMINS TABS 1qd MULTIVITAMINS TABS MULTIPLE VITAMIN Inactive CHERATUSSIN AC SYRP prn as directed CHERATUSSIN AC SYRP GUAIFENESIN-CODEINE SYRP Inactive MECLIZINE HCL 25 MG TABS 1 prn MECLIZINE HCL 25 MG TABS 117085 MECLIZINE HCL Inactive ZITHROMAX Z-CAROLYN 250 MG TABS 2x1day,3n0obhk ZITHROMAX Z-CAROLYN 250 MG TABS 7592704 AZITHROMYCIN Inactive ZITHROMAX 250 MG TAB 2 po today, then 1 po q days 2-5 ZITHROMAX 250 MG TAB 7300041 AZITHROMYCIN Inactive Vital Signs Date Name Value [...] % 11.6-14.8 platelet count 131 10^3/MM^3 10*3/mm3 144-169 0812/12/12 leukocyte count, blood 28.6 10^3/MM^3 10*3/mm3 4.6-10.2 [...] % 11.6-14.8 platelet count 237 10^3/MM^3 10*3/mm3 449-460 3180/12/23 leukocyte count, blood 6.9 10^3/MM^3 10*3/mm3 4.6-10.2 [...] % 11.6-14.8 platelet count 360 10^3/MM^3 10*3/mm3 945-917 7801/12/31 leukocyte count, blood 5.3 10^3/MM^3 10*3/mm3 4.6-10.2 [...] % 11.6-14.8 platelet count 222 10^3/MM^3 10*3/mm3 626-502 9444/01/07 leukocyte count, blood 11.7 10^3/MM^3 10*3/mm3 4.6-10.2 [...] % 11.6-14.8 platelet count 191 10^3/MM^3 10*3/mm3 553-687 1185/01/20 leukocyte count, blood 9.8 10^3/MM^3 10*3/mm3 4.6-10.2 [...] % 11.6-14.8 platelet count 195 10^3/MM^3 10*3/mm3 811-737 3928/01/28 leukocyte count, blood 11.9 10^3/MM^3 10*3/mm3 4.6-10.2 [...] % 11.6-14.8 platelet count 278 10^3/MM^3 10*3/mm3 835-039 9002/02/04 leukocyte count, blood 8.5 10^3/MM^3 10*3/mm3 4.6-10.2 [...] % 11.6-14.8 platelet count 326 10^3/MM^3 10*3/mm3 332-369 4313/02/10 leukocyte count, blood 2.3 10^3/MM^3 10*3/mm3 4.6-10.2 [...] % 11.6-14.8 platelet count 240 10^3/MM^3 10*3/mm3 610-887 8730/02/17 leukocyte count, blood 3.4 10^3/MM^3 10*3/mm3 4.6-10.2 [...] Panel - Chemistry sodium, serum 144 mmol/L 868-618 6935/12/16 potassium, serum 4.5 mmol/L 3.5-5.2 chloride, serum 107 mmol/L 98-107 carbon dioxide, venous blood 31.4 mmol/L 21.0-32.0 blood glucose 104 mg/dL 65-110 urea nitrogen, blood 17 mg/dL 7-18 creatinine, serum 1.10 mg/dL 0.60-1.30 alanine aminotransferase (SGPT), serum 25 U/L 12-78 aspartate aminotransferase (SGOT), serum 24 U/L 15-37 calcium, serum 8.4 mg/dL 8.5-10.1 bilirubin, serum, total 0.20 mg/dL 0.00-1.00 sodium, serum 141 mmol/L 422-467 3929/01/14 potassium, serum 4.9 mmol/L 3.5-5.2 chloride, serum [...] % 11.6-14.8 platelet count 376 10^3/MM^3 10*3/mm3 760-391 7008/12/16 leukocyte count, blood 19.5 10^3/MM^3 10*3/mm3 4.6-10.2 [...] Panel - Chemistry sodium, serum 141 mmol/L 369-785 1095/02/10 potassium, serum 5.2 mmol/L 3.5-5.2 chloride, serum [...] 0.00-1.00 Encounters Code Encounter Date Provider Facility CPT-04704 Level 3 Est. Patient 17:31:22 CDT Solomon Alamo MD [facility] CPT-41594 Level 3 Est. Patient 08:02:14 CDT Solomon Alamo MD [facility] CPT-78235 Level 3 Est. Patient 17:23:53 CDT Rikki GRANADOS [facility] CPT-37722 Level 3 Est. Patient 11:22:41 CDT Darryn Hearn [facility] Procedures Code Procedure Name Date Entry Date Standard Description CPT-06133 Venipuncture Draw Fee 08:16:46 RETAIL AGENT CPT-38037 Venipuncture Draw Fee 08:18:55 RETAIL AGENT CPT-84991 Venipuncture Draw Fee 08:31:18 RETAIL AGENT CPT-11293 Venipuncture Draw Fee 11:42:52 RETAIL AGENT CPT-02164 Venipuncture Draw Fee 13:26:37 RETAIL AGENT CPT-91029 Venipuncture Draw Fee 09:23:38 RETAIL AGENT CPT-000 Give Appropriate Tetanus Booster 10:23:50 CDT CPT-90691 Bone Density 08:28:45 CDT CPT-20732 Bone Density 11:35:15 CDT CPT-PV Prev. Care Visit 12:19:00 CDT CPT-65205 Venipuncture Draw Fee 15:02:58 CDT
--- OUTSIDE RECORDS SUMMARY | 2018-01-19 08:34 | XMS REPORT | Clinical Summary ---
Author Author Admin, E Organization [facility] Address Unknown Phone Unavailable Allergies, Adverse Reactions, Alerts Allergy Name Reaction Description Start Date Severity Status Provider SULFA facial swelling Critical Active Jocelyne Naff DATA REVIEW SPECIALIST Conditions or Problems Problem Name Problem Code Onset Date Status Entry Date Provider Comment Standard Description Annotate G E R D 530.81 Active Jocelyne Naff DATA REVIEW SPECIALIST Esophageal reflux FH COLON CANCER V16.0 Active Jocelyne Naff DATA REVIEW SPECIALIST Family history of malignant neoplasm of [...] then 1 po q days 2-5 AZITHROMYCIN 71551429916 No Longer Active Rikki Harms PA Active MECLIZINE HCL 25 MG TABS 1 prn MECLIZINE HCL 03425057748 No Longer Active Solomon Alamo MD Active CHERATUSSIN AC SYRP prn as directed GUAIFENESIN- CODEINE SYRP 29483262500 No Longer Active Rikki Harms PA Active MULTIVITAMINS TABS 1qd MULTIPLE VITAMIN 83206811230 No Longer Active Rikki Harms PA Active CLARITIN 10 MG TABS 1prn LORATADINE 01318548626 Active Jocelyne Naff DATA REVIEW SPECIALIST Active ASPIRIN 81 MG TABS 1qd ASPIRIN 85350437185 Active Jocelyne Naff DATA REVIEW SPECIALIST Active OMEPRAZOLE 20 MG CPDR 1 PO Q D OMEPRAZOLE 63365279854 Active Rikki Harms PA Active ZITHROMAX Z-CAROLYN 250 MG TABS 2x1day,2f7fsln AZITHROMYCIN 72988757300 No Longer Active Jocelyne Naff DATA REVIEW SPECIALIST Active MULTIVITAMINS TABS 1qd MULTIVITAMINS TABS MULTIPLE VITAMIN Inactive CHERATUSSIN AC SYRP prn as directed CHERATUSSIN AC SYRP GUAIFENESIN-CODEINE SYRP Inactive MECLIZINE HCL 25 MG TABS 1 prn MECLIZINE HCL 25 MG TABS 067485 MECLIZINE HCL Inactive ZITHROMAX Z-CAROLYN 250 MG TABS 2x1day,2s6aeyl ZITHROMAX Z-CAROLYN 250 MG TABS 3398613 AZITHROMYCIN Inactive ZITHROMAX 250 MG TAB 2 po today, then 1 po q days 2-5 ZITHROMAX 250 MG TAB 0956874 AZITHROMYCIN Inactive Vital Signs Date Name Value [...] Description Lab Report: CBC W/DIFF - Hematology neutrophils as percent of blood leukocytes 19.0 [...] % 11.6-14.8 platelet count 360 10^3/MM^3 10*3/mm3 060-640 9022/12/23 neutrophils as percent of blood leukocytes 57.3 % 42.2-75.2 monocytes as percent of blood leukocytes 8.6 % 1.7-9.3 lymphocytes as percent of blood leukocytes 30.4 % 20.5-51.1 erythrocyte (RBC) count 4.35 10^6/MM^3 10*6/mm3 4.04-5.48 erythrocyte (RBC) count 4.37 10^6/MM^3 10*6/mm3 4.04-5.48 hemoglobin, blood 13.0 g/dL 12.0-16.0 hematocrit, blood 39.4 % 36.0-46.0 mean corpuscular volume, RBC 90 fL 80-97 mean corpuscular hemoglobin, RBC 29.8 pg 27.0-31.2 mean corpuscular hemoglobin concentration, RBC 33.0 G/DL % 31.8- 35.4 red blood cell distribution width 14.9 % 11.6-14.8 platelet count 222 10^3/MM^3 10*3/mm3 905-017 3312/01/07 leukocyte count, blood 11.7 10^3/MM^3 10*3/mm3 4.6-10.2 [...] % 11.6-14.8 platelet count 191 10^3/MM^3 10*3/mm3 210-154 8893/12/23 hemoglobin, blood 13.2 g/dL 12.0-16.0 leukocyte count, blood 5.3 10^3/MM^3 10*3/mm3 4.6-10.2 hemoglobin, blood 14.8 g/dL 12.0-16.0 hematocrit, blood 44.3 % 36.0-46.0 mean corpuscular volume, RBC 90 fL 80-97 mean corpuscular hemoglobin, RBC 30.1 pg 27.0-31.2 mean corpuscular hemoglobin concentration, RBC 33.5 G/DL % 31.8- 35.4 red blood cell distribution width 14.5 % 11.6-14.8 platelet count 131 10^3/MM^3 10*3/mm3 654-578 4451/12/10 erythrocyte (RBC) count 4.93 10^6/MM^3 10*6/mm3 4.04-5.48 [...] % 11.6-14.8 platelet count 237 10^3/MM^3 10*3/mm3 152-136 7650/01/20 leukocyte count, blood 9.8 10^3/MM^3 10*3/mm3 4.6-10.2 hematocrit, blood 39.0 % 36.0-46.0 mean corpuscular volume, RBC 90 fL 80-97 mean corpuscular hemoglobin, RBC 30.0 pg 27.0-31.2 mean corpuscular hemoglobin concentration, RBC 33.3 G/DL % 31.8- 35.4 red blood cell distribution width 15.9 % 11.6-14.8 platelet count 195 10^3/MM^3 10*3/mm3 705-202 2805/01/28 leukocyte count, blood 11.9 10^3/MM^3 10*3/mm3 4.6-10.2 [...] % 11.6-14.8 platelet count 278 10^3/MM^3 10*3/mm3 682-798 2795/01/20 neutrophils as percent of blood leukocytes 78.4 % 42.2-75.2 monocytes as percent of blood leukocytes 7.4 % 1.7-9.3 lymphocytes as percent of blood leukocytes 10.0 % 20.5-51.1 erythrocyte (RBC) count 4.32 10^6/MM^3 10*6/mm3 4.04-5.48 hemoglobin, blood 13.0 g/dL 12.0-16.0 neutrophils as percent of blood leukocytes 8.8 % 42.2-75.2 monocytes as percent of blood leukocytes 43.6 % 1.7-9.3 lymphocytes as percent of blood leukocytes 37.1 % 20.5-51.1 Lab Report: CBC W/DIFF, Comp. Metabolic Panel - Chemistry sodium, serum 144 mmol/L 726-775 8291/12/16 potassium, serum 4.5 mmol/L 3.5-5.2 chloride, serum 107 mmol/L 98-107 carbon dioxide, venous blood 31.4 mmol/L 21.0-32.0 blood glucose 104 mg/dL 65-110 urea nitrogen, blood 17 mg/dL 7-18 creatinine, serum 1.10 mg/dL 0.60-1.30 alanine aminotransferase (SGPT), serum 25 U/L 12-78 aspartate aminotransferase (SGOT), serum 24 U/L 15-37 calcium, serum 8.4 mg/dL 8.5-10.1 bilirubin, serum, total 0.20 mg/dL 0.00-1.00 sodium, serum 141 mmol/L 213-894 9624/01/14 potassium, serum 4.9 mmol/L 3.5-5.2 chloride, serum [...] % 11.6-14.8 platelet count 239 10^3/MM^3 10*3/mm3 523-730 3114/01/14 monocytes as percent of blood leukocytes 6.3 [...] % 11.6-14.8 platelet count 376 10^3/MM^3 10*3/mm3 625-328 2718/01/14 leukocyte count, blood 6.7 10^3/MM^3 10*3/mm3 4.6-10.2 neutrophils as percent of blood leukocytes 66.4 % 42.2-75.2 Encounters Code Encounter Date Provider Facility CPT-63451 Level 3 Est. Patient 17:31:22 CDT Solomon lAamo MD [facility] CPT-61394 Level 3 Est. Patient 08:02:14 CDT Solomon Alamo MD [facility] CPT-31703 Level 3 Est. Patient 17:23:53 CDT Rikki GRANADOS [facility] CPT-27503 Level 3 Est. Patient 11:22:41 CDT Darryn Hearn [email or web address] Procedures Code Procedure Name Date Entry Date Standard Description CPT-40137 Venipuncture Draw Fee 08:16:46 MOTOR VEHICLE EXAMINER CPT-62217 Venipuncture Draw Fee 08:18:55 MOTOR VEHICLE EXAMINER CPT-31523 Venipuncture Draw Fee 08:31:18 MOTOR VEHICLE EXAMINER CPT-67551 Venipuncture Draw Fee 11:42:52 MOTOR VEHICLE EXAMINER CPT-80825 Venipuncture Draw Fee 13:26:37 MOTOR VEHICLE EXAMINER CPT-01739 Venipuncture Draw Fee 09:23:38 MOTOR VEHICLE EXAMINER CPT-000 Give Appropriate Tetanus Booster 10:23:50 CDT CPT-92796 Bone Density 08:28:45 CDT CPT-76433 Bone Density 11:35:15 CDT CPT-PV Prev. Care Visit 12:19:00 CDT CPT-06566 Venipuncture Draw Fee 15:02:58 CDT
--- OUTSIDE RECORDS SUMMARY | 2018-01-19 08:34 | XMS REPORT | Clinical Summary ---
Author Author Admin, E Organization [facility] Address Unknown Phone Unavailable Allergies, Adverse Reactions, Alerts Allergy Name Reaction Description Start Date Severity Status Provider SULFA facial swelling Critical Active Jocelyne Naff PROJECT ANALYST Conditions or Problems Problem Name Problem Code Onset Date Status Entry Date Provider Comment Standard Description Annotate G E R D 530.81 Active Jocelyne Naff PROJECT ANALYST Esophageal reflux FH COLON CANCER V16.0 Active Jocelyne Naff PROJECT ANALYST Family history of malignant neoplasm of [...] then 1 po q days 2-5 AZITHROMYCIN 71100922518 No Longer Active Rikki Harms PA Active MECLIZINE HCL 25 MG TABS 1 prn MECLIZINE HCL 22642236114 No Longer Active Solomon Alamo MD Active CHERATUSSIN AC SYRP prn as directed GUAIFENESIN- CODEINE SYRP 35008774901 No Longer Active Rikki Harms PA Active MULTIVITAMINS TABS 1qd MULTIPLE VITAMIN 05113874003 No Longer Active Rikki Harms PA Active CLARITIN 10 MG TABS 1prn LORATADINE 92948306803 Active Jocelyne Naff PROJECT ANALYST Active ASPIRIN 81 MG TABS 1qd ASPIRIN 13625302925 Active Jocelyne Naff PROJECT ANALYST Active OMEPRAZOLE 20 MG CPDR 1 PO Q D OMEPRAZOLE 84415024919 Active Rikki Harms PA Active ZITHROMAX Z-CAROLYN 250 MG TABS 2x1day,8x6mvat AZITHROMYCIN 00738347571 No Longer Active Jocelyne Naff PROJECT ANALYST Active MULTIVITAMINS TABS 1qd MULTIVITAMINS TABS MULTIPLE VITAMIN Inactive CHERATUSSIN AC SYRP prn as directed CHERATUSSIN AC SYRP GUAIFENESIN-CODEINE SYRP Inactive MECLIZINE HCL 25 MG TABS 1 prn MECLIZINE HCL 25 MG TABS 442895 MECLIZINE HCL Inactive ZITHROMAX Z-CAROLYN 250 MG TABS 2x1day,8m9fyby ZITHROMAX Z-CAROLYN 250 MG TABS 3538248 AZITHROMYCIN Inactive ZITHROMAX 250 MG TAB 2 po today, then 1 po q days 2-5 ZITHROMAX 250 MG TAB 9174865 AZITHROMYCIN Inactive Vital Signs Date Name Value [...] % 11.6-14.8 platelet count 131 10^3/MM^3 10*3/mm3 003-132 3942/12/10 erythrocyte (RBC) count 4.93 10^6/MM^3 10*6/mm3 4.04-5.48 [...] % 11.6-14.8 platelet count 237 10^3/MM^3 10*3/mm3 903-864 5516/12/12 neutrophils as percent of blood leukocytes 19.0 [...] % 11.6-14.8 platelet count 360 10^3/MM^3 10*3/mm3 296-382 3382/12/31 leukocyte count, blood 5.3 10^3/MM^3 10*3/mm3 4.6-10.2 hematocrit, blood 39.4 % 36.0-46.0 mean corpuscular volume, RBC 90 fL 80-97 mean corpuscular hemoglobin, RBC 29.8 pg 27.0-31.2 mean corpuscular hemoglobin concentration, RBC 33.0 G/DL % 31.8- 35.4 red blood cell distribution width 14.9 % 11.6-14.8 platelet count 222 10^3/MM^3 10*3/mm3 702-270 8424/12/31 neutrophils as percent of blood leukocytes 8.8 [...] % 11.6-14.8 platelet count 191 10^3/MM^3 10*3/mm3 503-466 3126/01/07 neutrophils as percent of blood leukocytes 67.9 [...] % 11.6-14.8 platelet count 195 10^3/MM^3 10*3/mm3 822-457 6355/01/28 leukocyte count, blood 11.9 10^3/MM^3 10*3/mm3 4.6-10.2 hematocrit, blood 37.0 % 36.0-46.0 mean corpuscular volume, RBC 93 fL 80-97 mean corpuscular hemoglobin, RBC 31.1 pg 27.0-31.2 mean corpuscular hemoglobin concentration, RBC 33.5 G/DL % 31.8- 35.4 red blood cell distribution width 16.4 % 11.6-14.8 platelet count 278 10^3/MM^3 10*3/mm3 943-032 3667/01/28 neutrophils as percent of blood leukocytes 53.5 % 42.2-75.2 monocytes as percent of blood leukocytes 22.4 % 1.7-9.3 lymphocytes as percent of blood leukocytes 21.9 % 20.5-51.1 erythrocyte (RBC) count 3.99 10^6/MM^3 10*6/mm3 4.04-5.48 hemoglobin, blood 12.4 g/dL 12.0-16.0 Lab Report: CBC W/DIFF, Comp. Metabolic Panel - Chemistry sodium, serum 144 mmol/L 478-351 1305/12/16 potassium, serum 4.5 mmol/L 3.5-5.2 chloride, serum 107 mmol/L 98-107 carbon dioxide, venous blood 31.4 mmol/L 21.0-32.0 blood glucose 104 mg/dL 65-110 urea nitrogen, blood 17 mg/dL 7-18 creatinine, serum 1.10 mg/dL 0.60-1.30 alanine aminotransferase (SGPT), serum 25 U/L 12-78 aspartate aminotransferase (SGOT), serum 24 U/L 15-37 calcium, serum 8.4 mg/dL 8.5-10.1 bilirubin, serum, total 0.20 mg/dL 0.00-1.00 sodium, serum 141 mmol/L 299-291 4651/01/14 potassium, serum 4.9 mmol/L 3.5-5.2 chloride, serum [...] % 11.6-14.8 platelet count 376 10^3/MM^3 10*3/mm3 775-057 7004/12/16 neutrophils as percent of blood leukocytes 56.5 [...] % 11.6-14.8 platelet count 239 10^3/MM^3 10*3/mm3 620-952 2851/01/14 neutrophils as percent of blood leukocytes 66.4 % 42.2-75.2 monocytes as percent of blood leukocytes 6.3 % 1.7-9.3 lymphocytes as percent of blood leukocytes 25.5 % 20.5-51.1 erythrocyte (RBC) count 4.29 10^6/MM^3 10*6/mm3 4.04-5.48 hemoglobin, blood 12.7 g/dL 12.0-16.0 Encounters Code Encounter Date Provider Facility CPT-89020 Level 3 Est. Patient 17:31:22 CDT Solomon Alamo MD [facility] CPT-18893 Level 3 Est. Patient 08:02:14 CDT Solomon Alamo MD [facility] CPT-02773 Level 3 Est. Patient 17:23:53 CDT Rikki GRANADOS [facility] [place] CPT-60166 Level 3 Est. Patient 11:22:41 CDT Darryn Hearn [facility] [place] Procedures Code Procedure Name Date Entry Date Standard Description CPT-16214 Venipuncture Draw Fee 08:16:46 ELECTRONIC BENCH TECHNICIAN CPT-80955 Venipuncture Draw Fee 08:18:55 ELECTRONIC BENCH TECHNICIAN CPT-13942 Venipuncture Draw Fee 08:31:18 ELECTRONIC BENCH TECHNICIAN CPT-26081 Venipuncture Draw Fee 11:42:52 ELECTRONIC BENCH TECHNICIAN CPT-18326 Venipuncture Draw Fee 13:26:37 ELECTRONIC BENCH TECHNICIAN CPT-24162 Venipuncture Draw Fee 09:23:38 ELECTRONIC BENCH TECHNICIAN CPT-000 Give Appropriate Tetanus Booster 10:23:50 CDT CPT-53975 Bone Density 08:28:45 CDT CPT-44900 Bone Density 11:35:15 CDT CPT-PV Prev. Care Visit 12:19:00 CDT CPT-96358 Venipuncture Draw Fee 15:02:58 CDT
--- OUTSIDE RECORDS SUMMARY | 2018-01-19 08:35 | XMS REPORT ---
Author Author [facility] Medical Staff Organization [facility] Address [address] [place], [place] [id number] Phone [phone] Care Team Providers Care Lube Worker Name Role Phone FERMÍN THOMSON MD PP [phone] Summary purpose TRANSITION OF CARE AUTO GENERATION Chief Complaint and Reason for Visit No authorized Reason for Visit (Admitting Diagnosis) is available for this visit. Problem list No authorized problems tracked for continuity of care are available for this visit. Encounters No authorized problems tracked for encounter diagnoses are available for this visit. Medications No home medications recorded for this patient visit Allergies, [...]
--- OUTSIDE RECORDS SUMMARY | 2018-01-19 08:35 | XMS REPORT | Clinical Summary ---
Author Author Admin, E Organization [facility] [place] Address Unknown Phone Unavailable Allergies, Adverse Reactions, Alerts Allergy Name Reaction Description Start Date Severity Status Provider SULFA facial swelling Critical Active Jocelyne Naff [employer]ESS[employer] Conditions or Problems Problem Name Problem Code Onset Date Status Entry Date Provider Comment Standard Description Annotate G E R D 530.81 Active Jocelyne Naff [employer]ESS[employer] Esophageal reflux FH COLON CANCER V16.0 Active Jocelyne Naff [employer] Family history of malignant neoplasm of gastrointestinal [...] then 1 po q days 2-5 AZITHROMYCIN 38346632787 No Longer Active Rikki Harms PA Active MECLIZINE HCL 25 MG TABS 1 prn MECLIZINE HCL 61969757687 No Longer Active Solomon Alamo MD Active CHERATUSSIN AC SYRP prn as directed GUAIFENESIN- CODEINE SYRP 36554964569 No Longer Active Rikki Harms PA Active MULTIVITAMINS TABS 1qd MULTIPLE VITAMIN 85247183329 No Longer Active Rikki Harms PA Active CLARITIN 10 MG TABS 1prn LORATADINE 80265596457 Active Jocelyne Naff [employer]ESS[employer] Active ASPIRIN 81 MG TABS 1qd ASPIRIN 13930924636 Active Jocelyne Naff [employer]ESS[employer] Active OMEPRAZOLE 20 MG CPDR 1 PO Q D OMEPRAZOLE 39417315230 Active Rikki Harms PA Active ZITHROMAX Z-CAROLYN 250 MG TABS 2x1day,0k3mujm AZITHROMYCIN 49418501564 No Longer Active Jocelyne Naff [employer]ESS[employer] Active MULTIVITAMINS TABS 1qd MULTIVITAMINS TABS MULTIPLE VITAMIN Inactive CHERATUSSIN AC SYRP prn as directed CHERATUSSIN AC SYRP GUAIFENESIN-CODEINE SYRP Inactive MECLIZINE HCL 25 MG TABS 1 prn MECLIZINE HCL 25 MG TABS 223780 MECLIZINE HCL Inactive ZITHROMAX Z-CAROLYN 250 MG TABS 2x1day,0x2xfqo ZITHROMAX Z-CAROLYN 250 MG TABS 4167687 AZITHROMYCIN Inactive ZITHROMAX 250 MG TAB 2 po today, then 1 po q days 2-5 ZITHROMAX 250 MG TAB 3805433 AZITHROMYCIN Inactive Vital Signs Date Name Value Unit Range Description blood pressure, diastolic - 8462-4 78 mm[Hg] BP rivera blood pressure, systolic - 8480-6 143 mm[Hg] BP sys pulse rate E&M - 8867-4 84 /min Heart rate temperature E&M 98.1 [degF] Body temperature weight E&M - 3141-9 200.6 [lb_av] Weight Measured blood pressure, diastolic - 8462-4 74 mm[Hg] BP rievra blood pressure, systolic - 8480-6 147 mm[Hg] [...] % 11.6-14.8 platelet count 131 10^3/MM^3 10*3/mm3 554-798 5773/12/12 leukocyte count, blood 28.6 10^3/MM^3 10*3/mm3 4.6-10.2 [...] % 11.6-14.8 platelet count 237 10^3/MM^3 10*3/mm3 384-970 5088/12/23 hemoglobin, blood 13.2 g/dL 12.0-16.0 hematocrit, blood 39.0 % 36.0-46.0 mean corpuscular volume, RBC 90 fL 80-97 mean corpuscular hemoglobin, RBC 30.5 pg 27.0-31.2 mean corpuscular hemoglobin concentration, RBC 33.9 G/DL % 31.8- 35.4 red blood cell distribution width 14.4 % 11.6-14.8 platelet count 360 10^3/MM^3 10*3/mm3 047-929 5496/12/31 leukocyte count, blood 5.3 10^3/MM^3 10*3/mm3 4.6-10.2 [...] % 11.6-14.8 platelet count 222 10^3/MM^3 10*3/mm3 182-935 1254/01/07 leukocyte count, blood 11.7 10^3/MM^3 10*3/mm3 4.6-10.2 [...] % 11.6-14.8 platelet count 191 10^3/MM^3 10*3/mm3 945-197 6456/12/23 erythrocyte (RBC) count 4.35 10^6/MM^3 10*6/mm3 4.04-5.48 [...] % 11.6-14.8 platelet count 195 10^3/MM^3 10*3/mm3 142-424 Lab Report: CBC W/DIFF, Comp. Metabolic Panel - Chemistry sodium, serum 141 mmol/L 598-837 4674/01/14 potassium, serum 4.9 mmol/L 3.5-5.2 chloride, serum 107 mmol/L 98-107 carbon dioxide, venous blood 28.9 mmol/L 21.0-32.0 blood glucose 100 mg/dL 65-110 urea nitrogen, blood 19 mg/dL 7-18 creatinine, serum 0.90 mg/dL 0.60-1.30 alanine aminotransferase (SGPT), serum 28 U/L -78 aspartate aminotransferase (SGOT), serum 24 U/L 15-37 calcium, serum 8.2 mg/dL 8.5-10.1 bilirubin, serum, total 0.40 mg/dL 0.00-1.00 sodium, serum 144 mmol/L 493-150 7181/12/16 potassium, serum 4.5 mmol/L 3.5-5.2 chloride, serum [...] % 11.6-14.8 platelet count 376 10^3/MM^3 10*3/mm3 854-056 5145/01/14 leukocyte count, blood 6.7 10^3/MM^3 10*3/mm3 4.6-10.2 [...] 142-424 Encounters Code Encounter Date Provider Facility CPT-78076 Level 3 Est. Patient 17:31:22 CDT Solomon Alamo MD [facility] CPT-78673 Level 3 Est. Patient 08:02:14 CDT Solomon Alamo MD [facility] CPT-04033 Level 3 Est. Patient 17:23:53 CDT Rikki Stearns [facility] CPT-67120 Level 3 Est. Patient 11:22:41 CDT Darryn Hearn [facility] Procedures Code Procedure Name Date Entry Date Standard Description CPT-19755 Venipuncture Draw Fee 08:16:46 EMERGENCY SPILL RESPONSE TECHNICIAN CPT-47238 Venipuncture Draw Fee 08:18:55 EMERGENCY SPILL RESPONSE TECHNICIAN CPT-81009 Venipuncture Draw Fee 08:31:18 EMERGENCY SPILL RESPONSE TECHNICIAN CPT-75883 Venipuncture Draw Fee 11:42:52 EMERGENCY SPILL RESPONSE TECHNICIAN CPT-63751 Venipuncture Draw Fee 13:26:37 EMERGENCY SPILL RESPONSE TECHNICIAN CPT-97980 Venipuncture Draw Fee 09:23:38 EMERGENCY SPILL RESPONSE TECHNICIAN CPT-000 Give Appropriate Tetanus Booster 10:23:50 CDT CPT-44882 Bone Density 08:28:45 CDT CPT-85959 Bone Density 11:35:15 CDT CPT-PV Prev. Care Visit 12:19:00 CDT [facility]-37835 Venipuncture Draw Fee 15:02:58 CDT
--- OUTSIDE RECORDS SUMMARY | 2018-01-19 08:35 | XMS REPORT | Clinical Summary ---
Author Author Admin, E Organization [facility] Address Unknown Phone Unavailable Allergies, Adverse Reactions, Alerts Allergy Name Reaction Description Start Date Severity Status Provider SULFA facial swelling Critical Active Jocelynemax Lovell LPN Conditions or Problems Problem Name Problem Code Onset Date Status Entry Date Provider Comment Standard Description Annotate G E R D 530.81 Active Jocelyne Naff BLACKSMITH APPRENTICE Esophageal reflux FH COLON CANCER V16.0 Active Jocelyne Naff BLACKSMITH APPRENTICE Family history of malignant neoplasm of gastrointestinal [...] then 1 po q days 2-5 AZITHROMYCIN 60326783624 No Longer Active Rikki Harms PA Active MECLIZINE HCL 25 MG TABS 1 prn MECLIZINE HCL 86527667352 No Longer Active Solomon Alamo MD Active CHERATUSSIN AC SYRP prn as directed GUAIFENESIN- CODEINE SYRP 52597053227 No Longer Active Rikki Harms PA Active MULTIVITAMINS TABS 1qd MULTIPLE VITAMIN 16656553682 No Longer Active Rikki Harms PA Active CLARITIN 10 MG TABS 1prn LORATADINE 89789163907 Active Jocelyne Naff BLACKSMITH APPRENTICE Active ASPIRIN 81 MG TABS 1qd ASPIRIN 12936436092 Active Jocelyne Naff BLACKSMITH APPRENTICE Active OMEPRAZOLE 20 MG CPDR 1 PO Q D OMEPRAZOLE 31188879459 Active Rikki Harms PA Active ZITHROMAX Z-CAROLYN 250 MG TABS 2x1day,7u3txrz AZITHROMYCIN 79561891032 No Longer Active Jocelyne Naff BLACKSMITH APPRENTICE Active MULTIVITAMINS TABS 1qd MULTIVITAMINS TABS MULTIPLE VITAMIN Inactive CHERATUSSIN AC SYRP prn as directed CHERATUSSIN AC SYRP GUAIFENESIN-CODEINE SYRP Inactive MECLIZINE HCL 25 MG TABS 1 prn MECLIZINE HCL 25 MG TABS 311531 MECLIZINE HCL Inactive ZITHROMAX Z-CAROLYN 250 MG TABS 2x1day,9r4evzr ZITHROMAX Z-CAROLYN 250 MG TABS 9717546 AZITHROMYCIN Inactive ZITHROMAX 250 MG TAB 2 po today, then 1 po q days 2-5 ZITHROMAX 250 MG TAB 8851213 AZITHROMYCIN Inactive Vital Signs Date Name Value [...] % 11.6-14.8 platelet count 131 10^3/MM^3 10*3/mm3 991-136 6444/12/12 leukocyte count, blood 28.6 10^3/MM^3 10*3/mm3 4.6-10.2 [...] % 11.6-14.8 platelet count 237 10^3/MM^3 10*3/mm3 850-422 9539/12/23 leukocyte count, blood 6.9 10^3/MM^3 10*3/mm3 4.6-10.2 [...] % 11.6-14.8 platelet count 360 10^3/MM^3 10*3/mm3 097-324 9674/12/31 leukocyte count, blood 5.3 10^3/MM^3 10*3/mm3 4.6-10.2 [...] % 11.6-14.8 platelet count 222 10^3/MM^3 10*3/mm3 057-577 7382/01/07 leukocyte count, blood 11.7 10^3/MM^3 10*3/mm3 4.6-10.2 [...] % 11.6-14.8 platelet count 191 10^3/MM^3 10*3/mm3 873-678 1624/01/20 leukocyte count, blood 9.8 10^3/MM^3 10*3/mm3 4.6-10.2 [...] % 11.6-14.8 platelet count 195 10^3/MM^3 10*3/mm3 454-899 9532/01/28 leukocyte count, blood 11.9 10^3/MM^3 10*3/mm3 4.6-10.2 [...] % 11.6-14.8 platelet count 278 10^3/MM^3 10*3/mm3 868-260 7173/02/04 leukocyte count, blood 8.5 10^3/MM^3 10*3/mm3 4.6-10.2 [...] % 11.6-14.8 platelet count 326 10^3/MM^3 10*3/mm3 516-515 5153/02/10 leukocyte count, blood 2.3 10^3/MM^3 10*3/mm3 4.6-10.2 [...] % 11.6-14.8 platelet count 240 10^3/MM^3 10*3/mm3 240-005 0266/02/17 leukocyte count, blood 3.4 10^3/MM^3 10*3/mm3 4.6-10.2 [...] % 11.6-14.8 platelet count 308 10^3/MM^3 10*3/mm3 841-789 1741/02/25 leukocyte count, blood 6.6 10^3/MM^3 10*3/mm3 4.6-10.2 [...] Panel - Chemistry sodium, serum 144 mmol/L 225-955 6982/12/16 potassium, serum 4.5 mmol/L 3.5-5.2 chloride, serum 107 mmol/L 98-107 carbon dioxide, venous blood 31.4 mmol/L 21.0-32.0 blood glucose 104 mg/dL 65-110 urea nitrogen, blood 17 mg/dL 7-18 creatinine, serum 1.10 mg/dL 0.60-1.30 alanine aminotransferase (SGPT), serum 25 U/L -78 aspartate aminotransferase (SGOT), serum 24 U/L 15-37 calcium, serum 8.4 mg/dL 8.5-10.1 bilirubin, serum, total 0.20 mg/dL 0.00-1.00 sodium, serum 141 mmol/L 267-952 5032/01/14 potassium, serum 4.9 mmol/L 3.5-5.2 chloride, serum [...] % 11.6-14.8 platelet count 376 10^3/MM^3 10*3/mm3 861-240 8296/12/16 leukocyte count, blood 19.5 10^3/MM^3 10*3/mm3 4.6-10.2 [...] Panel - Chemistry sodium, serum 141 mmol/L 538-597 2558/02/10 potassium, serum 5.2 mmol/L 3.5-5.2 chloride, serum [...] 0.00-1.00 Encounters Code Encounter Date Provider Facility CPT-37006 Level 3 Est. Patient 17:31:22 CDT Solomon Alamo MD [facility] CPT-18463 Level 3 Est. Patient 08:02:14 CDT Solomon Alamo MD [facility] CPT-98116 Level 3 Est. Patient 17:23:53 CDT Rikki Stearns [facility] CPT-95198 Level 3 Est. Patient 11:22:41 CDT Darryn Hearn [facility] Procedures Code Procedure Name Date Entry Date Standard Description CPT-50933 Venipuncture Draw Fee 08:16:46 SERVICENOW ADMINISTRATOR CPT-33863 Venipuncture Draw Fee 08:18:55 SERVICENOW ADMINISTRATOR CPT-54945 Venipuncture Draw Fee 08:31:18 SERVICENOW ADMINISTRATOR CPT-96364 Venipuncture Draw Fee 11:42:52 SERVICENOW ADMINISTRATOR CPT-72553 Venipuncture Draw Fee 13:26:37 SERVICENOW ADMINISTRATOR CPT-61206 Venipuncture Draw Fee 09:23:38 SERVICENOW ADMINISTRATOR CPT-000 Give Appropriate Tetanus Booster 10:23:50 CDT CPT-59803 Bone Density 08:28:45 CDT CPT-52500 Bone Density 11:35:15 CDT CPT-PV Prev. Care Visit 12:19:00 CDT CPT-81509 Venipuncture Draw Fee 15:02:58 CDT
--- OUTSIDE RECORDS SUMMARY | 2018-01-19 08:35 | XMS REPORT ---
Author Author [facility] Medical Staff Organization [facility] Address [address], [place] [id number] Phone [phone] Care Team Providers Care Mud Trucker Name Role Phone FERMÍN THOMSON MD PP [phone] Summary purpose TRANSITION OF CARE AUTO GENERATION [...]
--- OUTSIDE RECORDS SUMMARY | 2018-01-19 08:36 | XMS REPORT | Clinical Summary ---
[...] E R D 530.81 Active Jocelyne Naff MAINTENANCE OF WAY SUPERVISOR Esophageal reflux FH COLON CANCER V16.0 Active Jocelyne Naff MAINTENANCE OF WAY SUPERVISOR Family history of malignant neoplasm of [...] then 1 po q days 2-5 AZITHROMYCIN 68561061696 No Longer Active Rikki Harms PA Active MECLIZINE HCL 25 MG TABS 1 prn MECLIZINE HCL 64554846096 No Longer Active Solomon Alamo MD Active CHERATUSSIN AC SYRP prn as directed GUAIFENESIN- CODEINE SYRP 48558209959 No Longer Active Rikki Harms PA Active MULTIVITAMINS TABS 1qd MULTIPLE VITAMIN 30314186433 No Longer Active Rikki Harms PA Active CLARITIN 10 MG TABS 1prn LORATADINE 45232035855 Active Jocelyne Naff MAINTENANCE OF WAY SUPERVISOR Active ASPIRIN 81 MG TABS 1qd ASPIRIN 51620534179 Active Jocelyne Naff MAINTENANCE OF WAY SUPERVISOR Active OMEPRAZOLE 20 MG CPDR 1 PO Q D OMEPRAZOLE 11352076324 Active Rikki Harms PA Active ZITHROMAX Z-CAROLYN 250 MG TABS 2x1day,8o0nhvm AZITHROMYCIN 90570180088 No Longer Active Jocelyne Naff MAINTENANCE OF WAY SUPERVISOR Active MULTIVITAMINS TABS 1qd MULTIVITAMINS TABS MULTIPLE VITAMIN Inactive CHERATUSSIN AC SYRP prn as directed CHERATUSSIN AC SYRP GUAIFENESIN-CODEINE SYRP Inactive MECLIZINE HCL 25 MG TABS 1 prn MECLIZINE HCL 25 MG TABS 580150 MECLIZINE HCL Inactive ZITHROMAX Z-CAROLYN 250 MG TABS 2x1day,2q9fcws ZITHROMAX Z-CAROLYN 250 MG TABS 3584269 AZITHROMYCIN Inactive ZITHROMAX 250 MG TAB 2 po today, then 1 po q days 2-5 ZITHROMAX 250 MG TAB 0505885 AZITHROMYCIN Inactive Vital Signs Date Name Value [...] % 11.6-14.8 platelet count 131 10^3/MM^3 10*3/mm3 531-692 3427/12/12 leukocyte count, blood 28.6 10^3/MM^3 10*3/mm3 4.6-10.2 [...] % 11.6-14.8 platelet count 237 10^3/MM^3 10*3/mm3 091-199 5189/12/23 leukocyte count, blood 6.9 10^3/MM^3 10*3/mm3 4.6-10.2 [...] % 11.6-14.8 platelet count 360 10^3/MM^3 10*3/mm3 875-803 8046/12/31 leukocyte count, blood 5.3 10^3/MM^3 10*3/mm3 4.6-10.2 [...] % 11.6-14.8 platelet count 222 10^3/MM^3 10*3/mm3 685-245 8033/01/07 leukocyte count, blood 11.7 10^3/MM^3 10*3/mm3 4.6-10.2 [...] % 11.6-14.8 platelet count 191 10^3/MM^3 10*3/mm3 302-381 8176/01/20 leukocyte count, blood 9.8 10^3/MM^3 10*3/mm3 4.6-10.2 [...] % 11.6-14.8 platelet count 195 10^3/MM^3 10*3/mm3 525-818 8636/01/28 leukocyte count, blood 11.9 10^3/MM^3 10*3/mm3 4.6-10.2 [...] % 11.6-14.8 platelet count 278 10^3/MM^3 10*3/mm3 608-447 3338/02/04 leukocyte count, blood 8.5 10^3/MM^3 10*3/mm3 4.6-10.2 [...] % 11.6-14.8 platelet count 326 10^3/MM^3 10*3/mm3 404-527 5540/02/10 leukocyte count, blood 2.3 10^3/MM^3 10*3/mm3 4.6-10.2 [...] % 11.6-14.8 platelet count 240 10^3/MM^3 10*3/mm3 034-471 0235/02/17 leukocyte count, blood 3.4 10^3/MM^3 10*3/mm3 4.6-10.2 [...] % 11.6-14.8 platelet count 308 10^3/MM^3 10*3/mm3 291-832 9666/02/25 leukocyte count, blood 6.6 10^3/MM^3 10*3/mm3 4.6-10.2 [...] Panel - Chemistry sodium, serum 144 mmol/L 354-049 7084/12/16 potassium, serum 4.5 mmol/L 3.5-5.2 chloride, serum 107 mmol/L 98-107 carbon dioxide, venous blood 31.4 mmol/L 21.0-32.0 blood glucose 104 mg/dL 65-110 urea nitrogen, blood 17 mg/dL 7-18 creatinine, serum 1.10 mg/dL 0.60-1.30 alanine aminotransferase (SGPT), serum 25 U/L -78 aspartate aminotransferase (SGOT), serum 24 U/L 15-37 calcium, serum 8.4 mg/dL 8.5-10.1 bilirubin, serum, total 0.20 mg/dL 0.00-1.00 sodium, serum 141 mmol/L 352-520 2761/01/14 potassium, serum 4.9 mmol/L 3.5-5.2 chloride, serum [...] % 11.6-14.8 platelet count 376 10^3/MM^3 10*3/mm3 273-338 4282/12/16 leukocyte count, blood 19.5 10^3/MM^3 10*3/mm3 4.6-10.2 [...] Panel - Chemistry sodium, serum 141 mmol/L 897-462 8204/02/10 potassium, serum 5.2 mmol/L 3.5-5.2 chloride, serum [...] 0.00-1.00 Encounters Code Encounter Date Provider Facility CPT-76060 Level 3 Est. Patient 17:31:22 CDT Solomon Alamo MD [facility] CPT-13625 Level 3 Est. Patient 08:02:14 CDT Solomon Alamo MD [facility] CPT-26468 Level 3 Est. Patient 17:23:53 CDT Rikki Stearns [facility] CPT-78948 Level 3 Est. Patient 11:22:41 CDT Darryn Hearn [facility] Procedures Code Procedure Name Date Entry Date Standard Description CPT-78680 Venipuncture Draw Fee 08:16:46 TURBINE BLADE ASSEMBLER CPT-89371 Venipuncture Draw Fee 08:18:55 TURBINE BLADE ASSEMBLER CPT-78295 Venipuncture Draw Fee 08:31:18 TURBINE BLADE ASSEMBLER CPT-74956 Venipuncture Draw Fee 11:42:52 TURBINE BLADE ASSEMBLER CPT-35147 Venipuncture Draw Fee 13:26:37 TURBINE BLADE ASSEMBLER CPT-18737 Venipuncture Draw Fee 09:23:38 TURBINE BLADE ASSEMBLER CPT-000 Give Appropriate Tetanus Booster 10:23:50 CDT CPT-05065 Bone Density 08:28:45 CDT CPT-55506 Bone Density 11:35:15 CDT CPT-PV Prev. Care Visit 12:19:00 CDT CPT-33077 Venipuncture Draw Fee 15:02:58 CDT
--- OUTSIDE RECORDS SUMMARY | 2018-01-19 08:36 | XMS REPORT | Clinical Summary ---
Author Author Admin, E Organization [facility] Address Unknown Phone Unavailable Allergies, Adverse Reactions, Alerts Allergy Name Reaction Description Start Date Severity Status Provider SULFA facial swelling Critical Active Jocelyne Lovell LPN Conditions or Problems Problem Name Problem Code Onset Date Status Entry Date Provider Comment Standard Description Annotate G E R D 530.81 Active Jocelyne Tsaif RADIO DIVISION OFFICER Esophageal reflux FH COLON CANCER V16.0 Active Jocelyne Naff RADIO DIVISION OFFICER Family history of malignant neoplasm of gastrointestinal [...] then 1 po q days 2-5 AZITHROMYCIN 27986133238 No Longer Active Rikki Harms PA Active MECLIZINE HCL 25 MG TABS 1 prn MECLIZINE HCL 47777773774 No Longer Active Solomon Alamo MD Active CHERATUSSIN AC SYRP prn as directed GUAIFENESIN- CODEINE SYRP 93698751053 No Longer Active Rikki Harms PA Active MULTIVITAMINS TABS 1qd MULTIPLE VITAMIN 60934728741 No Longer Active Rikki Harms PA Active CLARITIN 10 MG TABS 1prn LORATADINE 97789080033 Active Jocelyne Naff RADIO DIVISION OFFICER Active ASPIRIN 81 MG TABS 1qd ASPIRIN 72629446321 Active Jocelyne Naff RADIO DIVISION OFFICER Active OMEPRAZOLE 20 MG CPDR 1 PO Q D OMEPRAZOLE 34766025000 Active Rikki Harms PA Active ZITHROMAX Z-CAROLYN 250 MG TABS 2x1day,5i7xmju AZITHROMYCIN 58987666773 No Longer Active Jocelyne Naff RADIO DIVISION OFFICER Active MULTIVITAMINS TABS 1qd MULTIVITAMINS TABS MULTIPLE VITAMIN Inactive CHERATUSSIN AC SYRP prn as directed CHERATUSSIN AC SYRP GUAIFENESIN-CODEINE SYRP Inactive MECLIZINE HCL 25 MG TABS 1 prn MECLIZINE HCL 25 MG TABS 367768 MECLIZINE HCL Inactive ZITHROMAX Z-CAROLYN 250 MG TABS 2x1day,9k5cvel ZITHROMAX Z-CAROLYN 250 MG TABS 2002698 AZITHROMYCIN Inactive ZITHROMAX 250 MG TAB 2 po today, then 1 po q days 2-5 ZITHROMAX 250 MG TAB 4708954 AZITHROMYCIN Inactive Vital Signs Date Name Value Unit Range Description blood pressure, diastolic 74 mm[Hg] BP rivera [...] Measured Encounters Code Encounter Date Provider Facility CPT-89041 Level 3 Est. Patient 08:02:14 CDT Solomon Alamo MD [facility] CPT-44454 Level 3 Est. Patient 17:23:53 CDT Rikki Stearns [facility] CPT-90850 Level 3 Est. Patient 11:22:41 CDT Darryn Hearn [facility] Procedures Code Procedure Name Date Entry Date Standard Description CPT-000 Give Appropriate Tetanus Booster 10:23:50 CDT CPT-40438 Bone Density 08:28:45 CDT CPT-04162 Bone Density 11:35:15 CDT CPT-PV Prev. Care Visit 12:19:00 CDT CPT-67115 Venipuncture Draw Fee 15:02:58 CDT
--- OUTSIDE RECORDS SUMMARY | 2018-01-19 08:36 | XMS REPORT | Clinical Summary ---
Author Author Admin, E Organization [facility] Address Unknown Phone Unavailable Allergies, Adverse Reactions, Alerts Allergy Name Reaction Description Start Date Severity Status Provider SULFA facial swelling Critical Active Jocelyne Quindomenica PRIMER BOXER Conditions or Problems Problem Name Problem Code Onset Date Status Entry Date Provider Comment Standard Description Annotate G E R D 530.81 Active Jocelyne Naff PRIMER BOXER Esophageal reflux FH COLON CANCER V16.0 Active Jocelyne Naff PRIMER BOXER Family history of malignant neoplasm of gastrointestinal [...] then 1 po q days 2-5 AZITHROMYCIN 46817829302 No Longer Active Rikki Harms PA Active MECLIZINE HCL 25 MG TABS 1 prn MECLIZINE HCL 26189180794 No Longer Active Solomon Alamo MD Active CHERATUSSIN AC SYRP prn as directed GUAIFENESIN- CODEINE SYRP 23146767165 No Longer Active Rikki Harms PA Active MULTIVITAMINS TABS 1qd MULTIPLE VITAMIN 69790374428 No Longer Active Rikki Harms PA Active CLARITIN 10 MG TABS 1prn LORATADINE 74657027670 Active Jocelyne Naff PRIMER BOXER Active ASPIRIN 81 MG TABS 1qd ASPIRIN 57477970027 Active Jocelyne Naff PRIMER BOXER Active OMEPRAZOLE 20 MG CPDR 1 PO Q D OMEPRAZOLE 61053371440 Active Rikki Harms PA Active ZITHROMAX Z-CAROLYN 250 MG TABS 2x1day,9b4uwga AZITHROMYCIN 17880157429 No Longer Active Jocelyne Naff PRIMER BOXER Active MULTIVITAMINS TABS 1qd MULTIVITAMINS TABS MULTIPLE VITAMIN Inactive CHERATUSSIN AC SYRP prn as directed CHERATUSSIN AC SYRP GUAIFENESIN-CODEINE SYRP Inactive MECLIZINE HCL 25 MG TABS 1 prn MECLIZINE HCL 25 MG TABS 162787 MECLIZINE HCL Inactive ZITHROMAX Z-CAROLYN 250 MG TABS 2x1day,1n4ohlh ZITHROMAX Z-CAROLYN 250 MG TABS 1353774 AZITHROMYCIN Inactive ZITHROMAX 250 MG TAB 2 po today, then 1 po q days 2-5 ZITHROMAX 250 MG TAB 1278485 AZITHROMYCIN Inactive Vital Signs Date Name Value [...] % 11.6-14.8 platelet count 131 10^3/MM^3 10*3/mm3 627-648 1234/12/10 erythrocyte (RBC) count 4.93 10^6/MM^3 10*6/mm3 4.04-5.48 [...] % 11.6-14.8 platelet count 237 10^3/MM^3 10*3/mm3 238-902 7749/12/10 mean corpuscular hemoglobin concentration, RBC 33.5 G/DL % 31.8- 35.4 mean corpuscular hemoglobin, RBC 30.1 pg 27.0-31.2 mean corpuscular volume, RBC 90 fL 80-97 hematocrit, blood 44.3 % 36.0-46.0 hemoglobin, blood 14.8 g/dL 12.0-16.0 neutrophils as percent of blood leukocytes 19.0 % 42.2-75.2 monocytes as percent of blood leukocytes 54.1 % 1.7-9.3 lymphocytes as percent of blood leukocytes 20.4 % 20.5-51.1 erythrocyte (RBC) count 5.08 10^6/MM^3 10*6/mm3 4.04-5.48 hemoglobin, blood 15.2 g/dL 12.0-16.0 leukocyte count, blood 6.9 10^3/MM^3 10*3/mm3 4.6-10.2 platelet count 360 10^3/MM^3 10*3/mm3 470-926 1777/12/31 leukocyte count, blood 5.3 10^3/MM^3 10*3/mm3 4.6-10.2 [...] % 11.6-14.8 platelet count 222 10^3/MM^3 10*3/mm3 996-810 4505/12/23 hematocrit, blood 39.0 % 36.0-46.0 mean corpuscular volume, RBC 90 fL 80-97 mean corpuscular hemoglobin, RBC 30.5 pg 27.0-31.2 mean corpuscular hemoglobin concentration, RBC 33.9 G/DL % 31.8- 35.4 red blood cell distribution width 14.4 % 11.6-14.8 leukocyte count, blood 11.7 10^3/MM^3 10*3/mm3 4.6-10.2 hematocrit, blood 41.2 % 36.0-46.0 mean corpuscular volume, RBC 90 fL 80-97 mean corpuscular hemoglobin, RBC 29.7 pg 27.0-31.2 mean corpuscular hemoglobin concentration, RBC 32.9 G/DL % 31.8- 35.4 red blood cell distribution width 15.5 % 11.6-14.8 platelet count 191 10^3/MM^3 10*3/mm3 497-647 4091/01/07 neutrophils as percent of blood leukocytes 67.9 % 42.2-75.2 monocytes as percent of blood leukocytes 8.8 % 1.7-9.3 neutrophils as percent of blood leukocytes 57.3 % 42.2-75.2 monocytes as percent of blood leukocytes 8.6 % 1.7-9.3 lymphocytes as percent of blood leukocytes 30.4 % 20.5-51.1 erythrocyte (RBC) count 4.35 10^6/MM^3 10*6/mm3 4.04-5.48 hemoglobin, blood 13.2 g/dL 12.0-16.0 lymphocytes as percent of blood leukocytes 21.3 [...] % 11.6-14.8 platelet count 195 10^3/MM^3 10*3/mm3 516-202 4843/01/28 leukocyte count, blood 11.9 10^3/MM^3 10*3/mm3 4.6-10.2 [...] % 11.6-14.8 platelet count 278 10^3/MM^3 10*3/mm3 935-849 0777/02/04 leukocyte count, blood 8.5 10^3/MM^3 10*3/mm3 4.6-10.2 [...] % 11.6-14.8 platelet count 326 10^3/MM^3 10*3/mm3 728-503 8768/01/20 neutrophils as percent of blood leukocytes 78.4 % 42.2-75.2 monocytes as percent of blood leukocytes 7.4 % 1.7-9.3 lymphocytes as percent of blood leukocytes 10.0 % 20.5-51.1 erythrocyte (RBC) count 4.32 10^6/MM^3 10*6/mm3 4.04-5.48 hemoglobin, blood 13.0 g/dL 12.0-16.0 leukocyte count, blood 2.3 10^3/MM^3 10*3/mm3 4.6-10.2 hematocrit, blood 35.3 % 36.0-46.0 mean corpuscular volume, RBC 92 fL 80-97 mean corpuscular hemoglobin, RBC 31.1 pg 27.0-31.2 mean corpuscular hemoglobin concentration, RBC 33.8 G/DL % 31.8- 35.4 red blood cell distribution width 18.0 % 11.6-14.8 platelet count 240 10^3/MM^3 10*3/mm3 941-080 9792/02/10 neutrophils as percent of blood leukocytes 63.7 [...] % 11.6-14.8 platelet count 308 10^3/MM^3 10*3/mm3 996-444 4738/02/25 erythrocyte (RBC) count 4.02 10^6/MM^3 10*6/mm3 4.04-5.48 hemoglobin, blood 12.2 g/dL 12.0-16.0 hematocrit, blood 36.9 % 36.0-46.0 mean corpuscular volume, RBC 92 fL 80-97 mean corpuscular hemoglobin, RBC 30.5 pg 27.0-31.2 mean corpuscular hemoglobin concentration, RBC 33.2 G/DL % 31.8- 35.4 red blood cell distribution width 19.2 % 11.6-14.8 platelet count 433 10^3/MM^3 10*3/mm3 078-543 3680/02/25 neutrophils as percent of blood leukocytes 61.9 % 42.2-75.2 monocytes as percent of blood leukocytes 8.9 % 1.7-9.3 lymphocytes as percent of blood leukocytes 27.4 % 20.5-51.1 leukocyte count, blood 6.6 10^3/MM^3 10*3/mm3 4.6-10.2 Lab Report: CBC W/DIFF, Comp. Metabolic Panel - Chemistry sodium, serum 141 mmol/L 848-661 9886/01/14 potassium, serum 4.9 mmol/L 3.5-5.2 chloride, serum 107 mmol/L 98-107 carbon dioxide, venous blood 28.9 mmol/L 21.0-32.0 blood glucose 100 mg/dL 65-110 urea nitrogen, blood 19 mg/dL 7-18 creatinine, serum 0.90 mg/dL 0.60-1.30 alanine aminotransferase (SGPT), serum 28 U/L -78 aspartate aminotransferase (SGOT), serum 24 U/L 15-37 calcium, serum 8.2 mg/dL 8.5-10.1 bilirubin, serum, total 0.40 mg/dL 0.00-1.00 sodium, serum 144 mmol/L 587-626 9832/12/16 potassium, serum 4.5 mmol/L 3.5-5.2 chloride, serum [...] % 11.6-14.8 platelet count 239 10^3/MM^3 10*3/mm3 584-065 6523/01/14 leukocyte count, blood 6.7 10^3/MM^3 10*3/mm3 4.6-10.2 hematocrit, blood 38.9 % 36.0-46.0 mean corpuscular volume, RBC 91 fL 80-97 mean corpuscular hemoglobin, RBC 29.6 pg 27.0-31.2 mean corpuscular hemoglobin concentration, RBC 32.7 G/DL % 31.8- 35.4 red blood cell distribution width 15.6 % 11.6-14.8 platelet count 376 10^3/MM^3 10*3/mm3 743-625 8470/01/14 neutrophils as percent of blood leukocytes 66.4 % 42.2-75.2 monocytes as percent of blood leukocytes 6.3 % 1.7-9.3 lymphocytes as percent of blood leukocytes 25.5 % 20.5-51.1 erythrocyte (RBC) count 4.29 10^6/MM^3 10*6/mm3 4.04-5.48 hemoglobin, blood 12.7 g/dL 12.0-16.0 Lab Report: Comp. Metabolic Panel - Chemistry sodium, serum 141 mmol/L 042-044 2295/02/10 potassium, serum 5.2 mmol/L 3.5-5.2 chloride, serum 106 mmol/L 98-107 carbon dioxide, venous blood 27.8 mmol/L 21.0-32.0 urea nitrogen, blood 18 mg/dL 7-18 creatinine, serum 0.90 mg/dL 0.60-1.30 alanine aminotransferase (SGPT), serum 29 U/L 12-78 aspartate aminotransferase (SGOT), serum 21 U/L 15-37 calcium, serum 8.3 mg/dL 8.5-10.1 bilirubin, serum, total 0.40 mg/dL 0.00-1.00 blood glucose 111 mg/dL 65-110 Encounters Code Encounter Date Provider Facility CPT-73380 Level 3 Est. Patient 17:31:22 CDT Solomon Alamo MD [facility] CPT-89647 Level 3 Est. Patient 08:02:14 CDT Solomon Alamo MD [facility] CPT-84317 Level 3 Est. Patient 17:23:53 CDT Rikki Stearns [facility] CPT-81152 Level 3 Est. Patient 11:22:41 CDT Darryn Hearn [facility] Procedures Code Procedure Name Date Entry Date Standard Description CPT-21881 Venipuncture Draw Fee 08:16:46 COMMERCIAL SALES DIRECTOR CPT-31750 Venipuncture Draw Fee 08:18:55 COMMERCIAL SALES DIRECTOR CPT-28809 Venipuncture Draw Fee 08:31:18 COMMERCIAL SALES DIRECTOR CPT-72287 Venipuncture Draw Fee 11:42:52 COMMERCIAL SALES DIRECTOR CPT-25520 Venipuncture Draw Fee 13:26:37 COMMERCIAL SALES DIRECTOR CPT-86173 Venipuncture Draw Fee 09:23:38 COMMERCIAL SALES DIRECTOR CPT-000 Give Appropriate Tetanus Booster 10:23:50 CDT CPT-16128 Bone Density 08:28:45 CDT CPT-77996 Bone Density 11:35:15 CDT CPT-PV Prev. Care Visit 12:19:00 CDT CPT-69139 Venipuncture Draw Fee 15:02:58 CDT
--- OUTSIDE RECORDS SUMMARY | 2018-01-19 08:37 | XMS REPORT | Clinical Summary ---
Author Author Admin, E Organization [facility] Address Unknown Phone Unavailable Allergies, Adverse Reactions, Alerts Allergy Name Reaction Description Start Date Severity Status Provider SULFA facial swelling Critical Active Jocelyne Lovell LPN Conditions or Problems Problem Name Problem Code Onset Date Status Entry Date Provider Comment Standard Description Annotate G E R D 530.81 Active Jocelyne Tsaif STACKER STRAIGHTENER Esophageal reflux FH COLON CANCER V16.0 Active Jocelyne Naff STACKER STRAIGHTENER Family history of malignant neoplasm of gastrointestinal [...] then 1 po q days 2-5 AZITHROMYCIN 27606491409 No Longer Active Rikki Harms PA Active MECLIZINE HCL 25 MG TABS 1 prn MECLIZINE HCL 61266812577 No Longer Active Solomon Alamo MD Active CHERATUSSIN AC SYRP prn as directed GUAIFENESIN- CODEINE SYRP 65321481017 No Longer Active Rikki Harms PA Active MULTIVITAMINS TABS 1qd MULTIPLE VITAMIN 50003225026 No Longer Active Rikki Harms PA Active CLARITIN 10 MG TABS 1prn LORATADINE 71846723586 Active Jocelyne Naff STACKER STRAIGHTENER Active ASPIRIN 81 MG TABS 1qd ASPIRIN 44221896268 Active Jocelyne Naff STACKER STRAIGHTENER Active OMEPRAZOLE 20 MG CPDR 1 PO Q D OMEPRAZOLE 39166073095 Active Rikki Harms PA Active ZITHROMAX Z-CAROLYN 250 MG TABS 2x1day,7r0sdjb AZITHROMYCIN 15666039631 No Longer Active Jocelyne Naff STACKER STRAIGHTENER Active MULTIVITAMINS TABS 1qd MULTIVITAMINS TABS MULTIPLE VITAMIN Inactive CHERATUSSIN AC SYRP prn as directed CHERATUSSIN AC SYRP GUAIFENESIN-CODEINE SYRP Inactive MECLIZINE HCL 25 MG TABS 1 prn MECLIZINE HCL 25 MG TABS 975024 MECLIZINE HCL Inactive ZITHROMAX Z-CAROLYN 250 MG TABS 2x1day,8a6qgsf ZITHROMAX Z-CAROLYN 250 MG TABS 8671804 AZITHROMYCIN Inactive ZITHROMAX 250 MG TAB 2 po today, then 1 po q days 2-5 ZITHROMAX 250 MG TAB 4390424 AZITHROMYCIN Inactive Vital Signs Date Name Value [...] Measured Encounters Code Encounter Date Provider Facility CPT-16982 Level 3 Est. Patient 08:02:14 CDT Solomon Alamo MD [facility] CPT-78162 Level 3 Est. Patient 17:23:53 CDT Rikki Stearns [facility] CPT-68693 Level 3 Est. Patient 11:22:41 CDT Darryn Hearn [facility] Procedures Code Procedure Name Date Entry Date Standard Description CPT-000 Give Appropriate Tetanus Booster 10:23:50 CDT CPT-00988 Bone Density 08:28:45 CDT CPT-40517 Bone Density 11:35:15 CDT CPT-PV Prev. Care Visit 12:19:00 CDT CPT-04121 Venipuncture Draw Fee 15:02:58 CDT
--- OUTSIDE RECORDS SUMMARY | 2018-01-19 08:37 | XMS REPORT | Clinical Summary ---
Author Author Admin, E Organization [facility] Address Unknown Phone Unavailable Allergies, Adverse Reactions, Alerts Allergy Name Reaction Description Start Date Severity Status Provider SULFA facial swelling Critical Active Jocelynemax Lovell LPN Conditions or Problems Problem Name Problem Code Onset Date Status Entry Date Provider Comment Standard Description Annotate G E R D 530.81 Active Jocelyne Naff LAUNDRY ROOM ATTENDANT Esophageal reflux FH COLON CANCER V16.0 Active Jocelyne Naff LAUNDRY ROOM ATTENDANT Family history of malignant neoplasm of gastrointestinal [...] then 1 po q days 2-5 AZITHROMYCIN 95888573346 No Longer Active Rikki Harms PA Active MECLIZINE HCL 25 MG TABS 1 prn MECLIZINE HCL 22471403965 No Longer Active Solomon Alamo MD Active CHERATUSSIN AC SYRP prn as directed GUAIFENESIN- CODEINE SYRP 93215247945 No Longer Active Rikki Harms PA Active MULTIVITAMINS TABS 1qd MULTIPLE VITAMIN 69726561008 No Longer Active Rikki Harms PA Active CLARITIN 10 MG TABS 1prn LORATADINE 92796047117 Active Jocelyne Naff LAUNDRY ROOM ATTENDANT Active ASPIRIN 81 MG TABS 1qd ASPIRIN 51699127885 Active Jocelyne Naff LAUNDRY ROOM ATTENDANT Active OMEPRAZOLE 20 MG CPDR 1 PO Q D OMEPRAZOLE 77312231750 Active Rikki Harms PA Active ZITHROMAX Z-CAROLYN 250 MG TABS 2x1day,2q5boxi AZITHROMYCIN 36418132287 No Longer Active Jocelyne Naff LAUNDRY ROOM ATTENDANT Active MULTIVITAMINS TABS 1qd MULTIVITAMINS TABS MULTIPLE VITAMIN Inactive CHERATUSSIN AC SYRP prn as directed CHERATUSSIN AC SYRP GUAIFENESIN-CODEINE SYRP Inactive MECLIZINE HCL 25 MG TABS 1 prn MECLIZINE HCL 25 MG TABS 965339 MECLIZINE HCL Inactive ZITHROMAX Z-CAROLYN 250 MG TABS 2x1day,3o4yvdd ZITHROMAX Z-CAROLYN 250 MG TABS 4732486 AZITHROMYCIN Inactive ZITHROMAX 250 MG TAB 2 po today, then 1 po q days 2-5 ZITHROMAX 250 MG TAB 3337695 AZITHROMYCIN Inactive Vital Signs Date Name Value [...] % 11.6-14.8 platelet count 131 10^3/MM^3 10*3/mm3 335-787 2377/12/12 leukocyte count, blood 28.6 10^3/MM^3 10*3/mm3 4.6-10.2 [...] % 11.6-14.8 platelet count 237 10^3/MM^3 10*3/mm3 686-688 9201/12/23 leukocyte count, blood 6.9 10^3/MM^3 10*3/mm3 4.6-10.2 [...] Panel - Chemistry sodium, serum 144 mmol/L 195-097 6420/12/16 potassium, serum 4.5 mmol/L 3.5-5.2 chloride, serum [...] 142-424 Encounters Code Encounter Date Provider Facility CPT-37012 Level 3 Est. Patient 17:31:22 CDT Solomon Alamo MD [facility] CPT-32651 Level 3 Est. Patient 08:02:14 CDT Solomon Alamo MD [facility] CPT-16731 Level 3 Est. Patient 17:23:53 CDT Rikki Stearns [facility] CPT-22769 Level 3 Est. Patient 11:22:41 CDT Darryn Hearn [facility] Procedures Code Procedure Name Date Entry Date Standard Description CPT-83505 Venipuncture Draw Fee 11:42:52 PET CARE TECHNICIAN CPT-83705 Venipuncture Draw Fee 13:26:37 PET CARE TECHNICIAN CPT-33619 Venipuncture Draw Fee 09:23:38 PET CARE TECHNICIAN CPT-000 Give Appropriate Tetanus Booster 10:23:50 CDT CPT-71835 Bone Density 08:28:45 CDT CPT-37645 Bone Density 11:35:15 CDT CPT-PV Prev. Care Visit 12:19:00 CDT CPT-52563 Venipuncture Draw Fee 15:02:58 CDT
--- OUTSIDE RECORDS SUMMARY | 2018-01-19 08:37 | XMS REPORT | Clinical Summary ---
Author Author Admin, E Organization [facility] Address Unknown Phone Unavailable Allergies, Adverse Reactions, Alerts Allergy Name Reaction Description Start Date Severity Status Provider SULFA facial swelling Critical Active Jocelyne Lovell LPN Conditions or Problems Problem Name Problem Code Onset Date Status Entry Date Provider Comment Standard Description Annotate G E R D 530.81 Active Jocelyne Naff REGISTERED NURSE OBSTETRICS Esophageal reflux FH COLON CANCER V16.0 Active Jocelyne Naff REGISTERED NURSE OBSTETRICS Family history of malignant neoplasm of gastrointestinal [...] then 1 po q days 2-5 AZITHROMYCIN 68030498615 No Longer Active Rikki Harms PA Active MECLIZINE HCL 25 MG TABS 1 prn MECLIZINE HCL 36120113903 No Longer Active Solomon Alamo MD Active CHERATUSSIN AC SYRP prn as directed GUAIFENESIN- CODEINE SYRP 87175035498 No Longer Active Rikki Harms PA Active MULTIVITAMINS TABS 1qd MULTIPLE VITAMIN 98577097679 No Longer Active Rikki Harms PA Active CLARITIN 10 MG TABS 1prn LORATADINE 11259758973 Active Jocelyne Naff REGISTERED NURSE OBSTETRICS Active ASPIRIN 81 MG TABS 1qd ASPIRIN 59255465034 Active Jocelyne Naff REGISTERED NURSE OBSTETRICS Active OMEPRAZOLE 20 MG CPDR 1 PO Q D OMEPRAZOLE 46301479945 Active Rikki Harms PA Active ZITHROMAX Z-CAROLYN 250 MG TABS 2x1day,8j9reks AZITHROMYCIN 52768694478 No Longer Active Jocelyne Naff REGISTERED NURSE OBSTETRICS Active MULTIVITAMINS TABS 1qd MULTIVITAMINS TABS MULTIPLE VITAMIN Inactive CHERATUSSIN AC SYRP prn as directed CHERATUSSIN AC SYRP GUAIFENESIN-CODEINE SYRP Inactive MECLIZINE HCL 25 MG TABS 1 prn MECLIZINE HCL 25 MG TABS 769804 MECLIZINE HCL Inactive ZITHROMAX Z-CAROLYN 250 MG TABS 2x1day,8r6ulgv ZITHROMAX Z-CAROLYN 250 MG TABS 8182625 AZITHROMYCIN Inactive ZITHROMAX 250 MG TAB 2 po today, then 1 po q days 2-5 ZITHROMAX 250 MG TAB 2355674 AZITHROMYCIN Inactive Vital Signs Date Name Value [...] % 11.6-14.8 platelet count 131 10^3/MM^3 10*3/mm3 703-584 8576/12/12 leukocyte count, blood 28.6 10^3/MM^3 10*3/mm3 4.6-10.2 [...] 11.6-14.8 platelet count 237 10^3/MM^3 10*3/mm3 142-424 Encounters Code Encounter Date Provider Facility CPT-81013 Level 3 Est. Patient 17:31:22 CDT Solomon Alamo MD [facility] CPT-69118 Level 3 Est. Patient 08:02:14 CDT Solomon Alamo MD [facility] CPT-20219 Level 3 Est. Patient 17:23:53 CDT Rikki Stearns [facility] CPT-15176 Level 3 Est. Patient 11:22:41 CDT Darryn Hearn [facility] Procedures Code Procedure Name Date Entry Date Standard Description CPT-81331 Venipuncture Draw Fee 13:26:37 MANAGER OF HOSPITAL CPT-20419 Venipuncture Draw Fee 09:23:38 MANAGER OF HOSPITAL CPT-000 Give Appropriate Tetanus Booster 10:23:50 CDT CPT-68980 Bone Density 08:28:45 CDT CPT-45039 Bone Density 11:35:15 CDT CPT-PV Prev. Care Visit 12:19:00 CDT CPT-16423 Venipuncture Draw Fee 15:02:58 CDT
--- OUTSIDE RECORDS SUMMARY | 2018-01-19 08:37 | XMS REPORT | Clinical Summary ---
Author Author Admin, E Organization [facility] Address Unknown Phone Unavailable Allergies, Adverse Reactions, Alerts Allergy Name Reaction Description Start Date Severity Status Provider SULFA facial swelling Critical Active Jocelyne Lovell EMERGENCY DISPATCH OPERATOR Conditions or Problems Problem Name Problem Code Onset Date Status Entry Date Provider Comment Standard Description Annotate G E R D 530.81 Active Jocelyne Naff EMERGENCY DISPATCH OPERATOR Esophageal reflux FH COLON CANCER V16.0 Active Jocelyne Naff EMERGENCY DISPATCH OPERATOR Family history of malignant neoplasm of [...] then 1 po q days 2-5 AZITHROMYCIN 58106431873 No Longer Active Rikki Harms PA Active MECLIZINE HCL 25 MG TABS 1 prn MECLIZINE HCL 80173055393 No Longer Active Solomon Alamo MD Active CHERATUSSIN AC SYRP prn as directed GUAIFENESIN- CODEINE SYRP 38466498667 No Longer Active Rikki Harms PA Active MULTIVITAMINS TABS 1qd MULTIPLE VITAMIN 04568668511 No Longer Active Rikki Harms PA Active CLARITIN 10 MG TABS 1prn LORATADINE 47496742820 Active Jocelyne Naff EMERGENCY DISPATCH OPERATOR Active ASPIRIN 81 MG TABS 1qd ASPIRIN 55395890908 Active Jocelyne Naff EMERGENCY DISPATCH OPERATOR Active OMEPRAZOLE 20 MG CPDR 1 PO Q D OMEPRAZOLE 58608742809 Active Rikki Harms PA Active ZITHROMAX Z-CAROLYN 250 MG TABS 2x1day,9s1qufl AZITHROMYCIN 62312880878 No Longer Active Jocelyne Naff EMERGENCY DISPATCH OPERATOR Active MULTIVITAMINS TABS 1qd MULTIVITAMINS TABS MULTIPLE VITAMIN Inactive CHERATUSSIN AC SYRP prn as directed CHERATUSSIN AC SYRP GUAIFENESIN-CODEINE SYRP Inactive MECLIZINE HCL 25 MG TABS 1 prn MECLIZINE HCL 25 MG TABS 735092 MECLIZINE HCL Inactive ZITHROMAX Z-CAROLYN 250 MG TABS 2x1day,9w1fnmj ZITHROMAX Z-CAROLYN 250 MG TABS 8518036 AZITHROMYCIN Inactive ZITHROMAX 250 MG TAB 2 po today, then 1 po q days 2-5 ZITHROMAX 250 MG TAB 2015109 AZITHROMYCIN Inactive Vital Signs Date Name Value Unit Range Description blood pressure, diastolic - 8462-4 78 mm[Hg] BP rivrea blood pressure, systolic - 8480-6 143 mm[Hg] [...] % 11.6-14.8 platelet count 131 10^3/MM^3 10*3/mm3 133-287 2478/12/12 leukocyte count, blood 28.6 10^3/MM^3 10*3/mm3 4.6-10.2 [...] % 11.6-14.8 platelet count 237 10^3/MM^3 10*3/mm3 963-637 1824/12/23 leukocyte count, blood 6.9 10^3/MM^3 10*3/mm3 4.6-10.2 [...] % 11.6-14.8 platelet count 360 10^3/MM^3 10*3/mm3 780-363 8925/12/31 leukocyte count, blood 5.3 10^3/MM^3 10*3/mm3 4.6-10.2 [...] Panel - Chemistry sodium, serum 144 mmol/L 990-838 4007/12/16 potassium, serum 4.5 mmol/L 3.5-5.2 chloride, serum [...] 142-424 Encounters Code Encounter Date Provider Facility CPT-87761 Level 3 Est. Patient 17:31:22 CDT Solomon Alamo MD [facility] CPT-26613 Level 3 Est. Patient 08:02:14 CDT Solomon Alamo MD [facility] CPT-27912 Level 3 Est. Patient 17:23:53 CDT Rikki Stearns [facility] CPT-01390 Level 3 Est. Patient 11:22:41 CDT Darryn Hearn [facility] Procedures Code Procedure Name Date Entry Date Standard Description CPT-55019 Venipuncture Draw Fee 11:42:52 SHEET METAL SHOP SUPERVISOR CPT-55874 Venipuncture Draw Fee 13:26:37 SHEET METAL SHOP SUPERVISOR CPT-80900 Venipuncture Draw Fee 09:23:38 SHEET METAL SHOP SUPERVISOR CPT-000 Give Appropriate Tetanus Booster 10:23:50 CDT CPT-75775 Bone Density 08:28:45 CDT CPT-02121 Bone Density 11:35:15 CDT CPT-PV Prev. Care Visit 12:19:00 CDT CPT-90438 Venipuncture Draw Fee 15:02:58 CDT
--- OUTSIDE RECORDS SUMMARY | 2018-01-19 08:38 | XMS REPORT | Clinical Summary ---
Author Author Admin, E Organization [facility] Address Unknown Phone Unavailable Allergies, Adverse Reactions, Alerts Allergy Name Reaction Description Start Date Severity Status Provider SULFA facial swelling Critical Active Jocelyne Liliya MANAGER RESOURCE Conditions or Problems Problem Name Problem Code Onset Date Status Entry Date Provider Comment Standard Description Annotate G E R D 530.81 Active Jocelyne Naff MANAGER RESOURCE Esophageal reflux FH COLON CANCER V16.0 Active Jocelyne Naff MANAGER RESOURCE Family history of malignant neoplasm of gastrointestinal [...] then 1 po q days 2-5 AZITHROMYCIN 95635678419 Active Rikki Harms PA Active MECLIZINE HCL 25 MG TABS 1 prn MECLIZINE HCL 25447381160 No Longer Active Solomon Alamo MD Active CHERATUSSIN AC SYRP prn as directed GUAIFENESIN- CODEINE SYRP 18517042621 No Longer Active Rikki Daryn PA Active MULTIVITAMINS TABS 1qd MULTIPLE VITAMIN 33146672451 No Longer Active Rikki Daryn PA Active CLARITIN 10 MG TABS 1prn LORATADINE 36003740555 Active Jocelyne Naff MANAGER RESOURCE Active ASPIRIN 81 MG TABS 1qd ASPIRIN 61662346714 Active Jocelyne Naff MANAGER RESOURCE Active OMEPRAZOLE 20 MG CPDR 1 PO Q D OMEPRAZOLE 79658728961 Active Rikki Daryn PA Active ZITHROMAX Z-CAROLYN 250 MG TABS 2x1day,6a2abtr AZITHROMYCIN 44681965411 No Longer Active Jocelyne Naff MANAGER RESOURCE Active MULTIVITAMINS TABS 1qd MULTIVITAMINS TABS MULTIPLE VITAMIN Inactive CHERATUSSIN AC SYRP prn as directed CHERATUSSIN AC SYRP GUAIFENESIN-CODEINE SYRP Inactive MECLIZINE HCL 25 MG TABS 1 prn MECLIZINE HCL 25 MG TABS 684730 MECLIZINE HCL Inactive ZITHROMAX Z-CAROLYN 250 MG TABS 2x1day,1n6pcub ZITHROMAX Z-CAROLYN 250 MG TABS 7457380 AZITHROMYCIN Inactive Vital Signs Date Name Value [...] Measured Encounters Code Encounter Date Provider Facility CPT-59129 Level 3 Est. Patient 08:02:14 CDT Solomon Alamo MD [facility] CPT-70959 Level 3 Est. Patient 17:23:53 CDT Rikki Stearns [facility][note 2] CPT-68748 Level 3 Est. Patient 11:22:41 CDT Darryn Hearn [facility][note 2] Procedures Code Procedure Name Date Entry Date Standard Description CPT-78708 Bone Density 08:28:45 CDT CPT-07380 Bone Density 11:35:15 CDT CPT-PV Prev. Care Visit 12:19:00 CDT CPT-94470 Venipuncture Draw Fee 15:02:58 CDT
--- OUTSIDE RECORDS SUMMARY | 2018-01-19 08:38 | XMS REPORT | Clinical Summary ---
Author Author Admin, E Organization [facility] Address Unknown Phone Unavailable Allergies, Adverse Reactions, Alerts Allergy Name Reaction Description Start Date Severity Status Provider SULFA facial swelling Critical Active Jocelyne Lovell LPN Conditions or Problems Problem Name Problem Code Onset Date Status Entry Date Provider Comment Standard Description Annotate G E R D 530.81 Active Jocelyne Tsaif ART EDUCATOR Esophageal reflux FH COLON CANCER V16.0 Active Jocelyne Naff ART EDUCATOR Family history of malignant neoplasm of gastrointestinal [...] then 1 po q days 2-5 AZITHROMYCIN 66638561536 No Longer Active Rikki Harms PA Active MECLIZINE HCL 25 MG TABS 1 prn MECLIZINE HCL 47903378486 No Longer Active Solomon Alamo MD Active CHERATUSSIN AC SYRP prn as directed GUAIFENESIN- CODEINE SYRP 62256947627 No Longer Active Rikki Harms PA Active MULTIVITAMINS TABS 1qd MULTIPLE VITAMIN 93729653575 No Longer Active Rikki Harms PA Active CLARITIN 10 MG TABS 1prn LORATADINE 14670576901 Active Jocelyne Naff ART EDUCATOR Active ASPIRIN 81 MG TABS 1qd ASPIRIN 60259925263 Active Jocelyne Naff ART EDUCATOR Active OMEPRAZOLE 20 MG CPDR 1 PO Q D OMEPRAZOLE 13983829514 Active Rikki Harms PA Active ZITHROMAX Z-CAROLYN 250 MG TABS 2x1day,9b7hqqg AZITHROMYCIN 05605674091 No Longer Active Jocelyne Naff ART EDUCATOR Active MULTIVITAMINS TABS 1qd MULTIVITAMINS TABS MULTIPLE VITAMIN Inactive CHERATUSSIN AC SYRP prn as directed CHERATUSSIN AC SYRP GUAIFENESIN-CODEINE SYRP Inactive MECLIZINE HCL 25 MG TABS 1 prn MECLIZINE HCL 25 MG TABS 403531 MECLIZINE HCL Inactive ZITHROMAX Z-CAROLYN 250 MG TABS 2x1day,8h2aifu ZITHROMAX Z-CAROLYN 250 MG TABS 7343232 AZITHROMYCIN Inactive ZITHROMAX 250 MG TAB 2 po today, then 1 po q days 2-5 ZITHROMAX 250 MG TAB 0551236 AZITHROMYCIN Inactive Vital Signs Date Name Value [...] Measured Encounters Code Encounter Date Provider Facility CPT-93950 Level 3 Est. Patient 17:31:22 CDT Solomon Alamo MD [facility] CPT-70628 Level 3 Est. Patient 08:02:14 CDT Solomon Alamo MD [facility] CPT-32358 Level 3 Est. Patient 17:23:53 CDT [address] [facility] [place] CPT-63497 Level 3 Est. Patient 11:22:41 CDT Darryn GRANADOS [facility] Procedures Code Procedure Name Date Entry Date Standard Description CPT-97709 Venipuncture Draw Fee 09:23:38 CORONARY CLINICAL SPECIALIST CPT-000 Give Appropriate Tetanus Booster 10:23:50 CDT CPT-44514 Bone Density 08:28:45 CDT CPT-26597 Bone Density 11:35:15 CDT CPT-PV Prev. Care Visit 12:19:00 CDT CPT-82975 Venipuncture Draw Fee 15:02:58 CDT
--- OUTSIDE RECORDS SUMMARY | 2018-01-19 08:38 | XMS REPORT | Clinical Summary ---
[...] E R D 530.81 Active Jocelyne Tsaif PAEDIATRIC SURGEON Esophageal reflux FH COLON CANCER V16.0 Active Jocelyne Naff PAEDIATRIC SURGEON Family history of malignant neoplasm of gastrointestinal [...] then 1 po q days 2-5 AZITHROMYCIN 74395095524 No Longer Active Rikki Harms PA Active MECLIZINE HCL 25 MG TABS 1 prn MECLIZINE HCL 91472845550 No Longer Active Solomon Alamo MD Active CHERATUSSIN AC SYRP prn as directed GUAIFENESIN- CODEINE SYRP 47894048593 No Longer Active Rikki Harms PA Active MULTIVITAMINS TABS 1qd MULTIPLE VITAMIN 27805132045 No Longer Active Rikki Harms PA Active CLARITIN 10 MG TABS 1prn LORATADINE 97516226780 Active Jocelyne Naff PAEDIATRIC SURGEON Active ASPIRIN 81 MG TABS 1qd ASPIRIN 45226905664 Active Jocelyne Naff PAEDIATRIC SURGEON Active OMEPRAZOLE 20 MG CPDR 1 PO Q D OMEPRAZOLE 27867528030 Active Rikki Harms PA Active ZITHROMAX Z-CAROLYN 250 MG TABS 2x1day,7i7xvoj AZITHROMYCIN 45287833614 No Longer Active Jocelyne Naff PAEDIATRIC SURGEON Active MULTIVITAMINS TABS 1qd MULTIVITAMINS TABS MULTIPLE VITAMIN Inactive CHERATUSSIN AC SYRP prn as directed CHERATUSSIN AC SYRP GUAIFENESIN-CODEINE SYRP Inactive MECLIZINE HCL 25 MG TABS 1 prn MECLIZINE HCL 25 MG TABS 116024 MECLIZINE HCL Inactive ZITHROMAX Z-CAROLYN 250 MG TABS 2x1day,1a0cros ZITHROMAX Z-CAROLYN 250 MG TABS 9937781 AZITHROMYCIN Inactive ZITHROMAX 250 MG TAB 2 po today, then 1 po q days 2-5 ZITHROMAX 250 MG TAB 3148610 AZITHROMYCIN Inactive Vital Signs Date Name Value [...] Measured Encounters Code Encounter Date Provider Facility CPT-46333 Level 3 Est. Patient 17:31:22 CDT Solomon Alamo MD [facility] CPT-59453 Level 3 Est. Patient 08:02:14 CDT Solomon Alamo MD [facility] CPT-02189 Level 3 Est. Patient 17:23:53 CDT Rikki Stearns [facility] CPT-24594 Level 3 Est. Patient 11:22:41 CDT Darryn Hearn [facility] Procedures Code Procedure Name Date Entry Date Standard Description CPT-000 Give Appropriate Tetanus Booster 10:23:50 CDT CPT-37611 Bone Density 08:28:45 CDT CPT-02701 Bone Density 11:35:15 CDT CPT-PV Prev. Care Visit 12:19:00 CDT CPT-33475 Venipuncture Draw Fee 15:02:58 CDT
--- OUTSIDE RECORDS SUMMARY | 2018-01-19 08:38 | XMS REPORT | Clinical Summary ---
Author Author Admin, E Organization [facility] Address Unknown Phone Unavailable Allergies, Adverse Reactions, Alerts Allergy Name Reaction Description Start Date Severity Status Provider SULFA facial swelling Critical Active Jocelyne Naff CORPORATE HUMAN RESOURCES MANAGER Conditions or Problems Problem Name Problem Code Onset Date Status Entry Date Provider Comment Standard Description Annotate G E R D 530.81 Active Jocelyne Naff CORPORATE HUMAN RESOURCES MANAGER Esophageal reflux FH COLON CANCER V16.0 Active Jocelyne Naff CORPORATE HUMAN RESOURCES MANAGER Family history of malignant neoplasm of [...] 25 MG TABS 1 prn MECLIZINE HCL 88082155300 No Longer Active Solomon Alamo MD Active CHERATUSSIN AC SYRP prn as directed GUAIFENESIN- CODEINE SYRP 94039139335 No Longer Active Rikki Stearns DARWIN Active MULTIVITAMINS TABS 1qd MULTIPLE VITAMIN 82164881124 No Longer Active Rikki Stearns PA Active CLARITIN 10 MG TABS 1prn LORATADINE 56571331931 Active Jocelyne Naff CORPORATE HUMAN RESOURCES MANAGER Active ASPIRIN 81 MG TABS 1qd ASPIRIN 13256515871 Active Jocelyne Naff CORPORATE HUMAN RESOURCES MANAGER Active OMEPRAZOLE 20 MG CPDR 1 PO Q D OMEPRAZOLE 62896586945 Active Rikki Stearns PA Active ZITHROMAX Z-CAROLYN 250 MG TABS 2x1day,3p0vawi AZITHROMYCIN 05993967125 No Longer Active Jocelyne Naff CORPORATE HUMAN RESOURCES MANAGER Active MULTIVITAMINS TABS 1qd MULTIVITAMINS TABS MULTIPLE VITAMIN Inactive CHERATUSSIN AC SYRP prn as directed CHERATUSSIN AC SYRP GUAIFENESIN-CODEINE SYRP Inactive MECLIZINE HCL 25 MG TABS 1 prn MECLIZINE HCL 25 MG TABS 269240 MECLIZINE HCL Inactive ZITHROMAX Z-CAROLYN 250 MG TABS 2x1day,1c8trjl ZITHROMAX Z-CAROLYN 250 MG TABS 3691519 AZITHROMYCIN Inactive Vital Signs Date Name Value [...] Measured Encounters Code Encounter Date Provider Facility CPT-17308 Level 3 Est. Patient 08:02:14 CDT Solomon Alamo MD [facility] CPT-25727 Level 3 Est. Patient 17:23:53 CDT Rikki Stearns [facility] CPT-48997 Level 3 Est. Patient 11:22:41 CDT Darryn Hearn [facility] Procedures Code Procedure Name Date Entry Date Standard Description CPT-41960 Bone Density 11:35:15 CDT CPT-PV Prev. Care Visit 12:19:00 CDT CPT-53331 Venipuncture Draw Fee 15:02:58 CDT
--- OUTSIDE RECORDS SUMMARY | 2018-01-19 08:38 | XMS REPORT | Clinical Summary ---
Author Author Admin, E Organization [facility] Address Unknown Phone Unavailable Allergies, Adverse Reactions, Alerts Allergy Name Reaction Description Start Date Severity Status Provider SULFA facial swelling Critical Active Jocelyne Naff CLINICAL SAFETY SPECIALIST Conditions or Problems Problem Name Problem Code Onset Date Status Entry Date Provider Comment Standard Description Annotate G E R D 530.81 Active Jocelyne Naff CLINICAL SAFETY SPECIALIST Esophageal reflux FH COLON CANCER V16.0 Active Jocelyne Naff CLINICAL SAFETY SPECIALIST Family history of malignant neoplasm of [...] 25 MG TABS 1 prn MECLIZINE HCL 61905933651 No Longer Active Solomon Alamo MD Active CHERATUSSIN AC SYRP prn as directed GUAIFENESIN- CODEINE SYRP 82734798179 No Longer Active Rikki Stearns DARWIN Active MULTIVITAMINS TABS 1qd MULTIPLE VITAMIN 85871822180 No Longer Active Rikki Stearns PA Active CLARITIN 10 MG TABS 1prn LORATADINE 71812498866 Active Jocelyne Naff CLINICAL SAFETY SPECIALIST Active ASPIRIN 81 MG TABS 1qd ASPIRIN 45228043242 Active Jocelyne Naff CLINICAL SAFETY SPECIALIST Active OMEPRAZOLE 20 MG CPDR 1 PO Q D OMEPRAZOLE 58069137507 Active Rikki Stearns PA Active ZITHROMAX Z-CAROLYN 250 MG TABS 2x1day,8n5nepa AZITHROMYCIN 58843710923 No Longer Active Jocelyne Naff CLINICAL SAFETY SPECIALIST Active MULTIVITAMINS TABS 1qd MULTIVITAMINS TABS MULTIPLE VITAMIN Inactive CHERATUSSIN AC SYRP prn as directed CHERATUSSIN AC SYRP GUAIFENESIN-CODEINE SYRP Inactive MECLIZINE HCL 25 MG TABS 1 prn MECLIZINE HCL 25 MG TABS 794906 MECLIZINE HCL Inactive ZITHROMAX Z-CAROLYN 250 MG TABS 2x1day,0z2nweo ZITHROMAX Z-CAROLYN 250 MG TABS 4963670 AZITHROMYCIN Inactive Vital Signs Date Name Value [...] pressure, diastolic - 8462-4 72 mm[Hg] BP rivrea blood pressure, systolic - 8480-6 122 mm[Hg] BP sys pulse rate E&M - 8867-4 80 /min Heart rate temperature E&M 99.1 [degF] Body temperature weight E&M - 3141-9 200 [lb_av] Weight Measured Encounters Code Encounter Date Provider Facility CPT-59555 Level 3 Est. Patient 08:02:14 CDT Solomon Alamo MD [facility] CPT-77562 Level 3 Est. Patient 17:23:53 CDT Rikki Stearns [facility] CPT-64345 Level 3 Est. Patient 11:22:41 CDT Darryn Hearn [facility] Procedures Code Procedure Name Date Entry Date Standard Description CPT-13448 Bone Density 11:35:15 CDT CPT-PV Prev. Care Visit 12:19:00 CDT CPT-84631 Venipuncture Draw Fee 15:02:58 CDT
--- OUTSIDE RECORDS SUMMARY | 2018-01-19 08:38 | XMS REPORT | Clinical Summary ---
Author Author Admin, E Organization [facility] Address Unknown Phone Unavailable Allergies, Adverse Reactions, Alerts Allergy Name Reaction Description Start Date Severity Status Provider SULFA facial swelling Critical Active Jocelyne Naff CLINICAL QUALITY MANAGER Conditions or Problems Problem Name Problem Code Onset Date Status Entry Date Provider Comment Standard Description Annotate G E R D 530.81 Active Jocelyne Naff CLINICAL QUALITY MANAGER Esophageal reflux FH COLON CANCER V16.0 Active Jocelyne Naff CLINICAL QUALITY MANAGER Family history of malignant neoplasm of [...] 25 MG TABS 1 prn MECLIZINE HCL 04679160697 No Longer Active Solomon Alamo MD Active CHERATUSSIN AC SYRP prn as directed GUAIFENESIN- CODEINE SYRP 70746773563 No Longer Active Rikki Stearns DARWIN Active MULTIVITAMINS TABS 1qd MULTIPLE VITAMIN 65882936560 No Longer Active Rikki Stearns PA Active CLARITIN 10 MG TABS 1prn LORATADINE 30589704581 Active Jocelyne Naff CLINICAL QUALITY MANAGER Active ASPIRIN 81 MG TABS 1qd ASPIRIN 81419447313 Active Jocelyne Naff CLINICAL QUALITY MANAGER Active OMEPRAZOLE 20 MG CPDR 1 PO Q D OMEPRAZOLE 18235905126 Active Rikki Stearns PA Active ZITHROMAX Z-CAROLYN 250 MG TABS 2x1day,5m4ivdl AZITHROMYCIN 23928189973 No Longer Active Jocelyne Naff CLINICAL QUALITY MANAGER Active MULTIVITAMINS TABS 1qd MULTIVITAMINS TABS MULTIPLE VITAMIN Inactive CHERATUSSIN AC SYRP prn as directed CHERATUSSIN AC SYRP GUAIFENESIN-CODEINE SYRP Inactive MECLIZINE HCL 25 MG TABS 1 prn MECLIZINE HCL 25 MG TABS 074605 MECLIZINE HCL Inactive ZITHROMAX Z-CAROLYN 250 MG TABS 2x1day,5l9bybh ZITHROMAX Z-CAROLYN 250 MG TABS 3369728 AZITHROMYCIN Inactive Vital Signs Date Name Value [...] Measured Encounters Code Encounter Date Provider Facility CPT-13129 Level 3 Est. Patient 08:02:14 CDT Solomon Alamo MD [facility] CPT-85944 Level 3 Est. Patient 17:23:53 CDT Rikki Stearns [facility] CPT-60422 Level 3 Est. Patient 11:22:41 CDT Darryn Hearn [facility] Procedures Code Procedure Name Date Entry Date Standard Description CPT-PV Prev. Care Visit 12:19:00 CDT CPT-69750 Venipuncture Draw Fee 15:02:58 CDT
--- OUTSIDE RECORDS SUMMARY | 2018-01-19 08:39 | XMS REPORT | Clinical Summary ---
Author Author Admin, E Organization [facility] Address Unknown Phone Unavailable Allergies, Adverse Reactions, Alerts Allergy Name Reaction Description Start Date Severity Status Provider SULFA facial swelling Critical Active Jocelyne Naff METER ATTENDANT Conditions or Problems Problem Name Problem Code Onset Date Status Entry Date Provider Comment Standard Description Annotate G E R D 530.81 Active Jocelyne Naff METER ATTENDANT Esophageal reflux FH COLON CANCER V16.0 Active Jocelyne Naff METER ATTENDANT Family history of malignant neoplasm of [...] status (age-related) (natural) Breast cancer 174.9 Active aKilee Rachel RMA Malignant neoplasm of breast (female), unspecified Medication List Medication Instructions Start Date Stop Date Generic Name NDC Status Provider Patient Instruction ZITHROMAX 250 MG TAB 2 po today, then 1 po q days 2-5 AZITHROMYCIN 83180710193 No Longer Active Rikki Harms PA Active MECLIZINE HCL 25 MG TABS 1 prn MECLIZINE HCL 07183037943 No Longer Active Solomon Alamo MD Active CHERATUSSIN AC SYRP prn as directed GUAIFENESIN- CODEINE SYRP 28234146502 No Longer Active Rikki Harms PA Active MULTIVITAMINS TABS 1qd MULTIPLE VITAMIN 79682062445 No Longer Active Rikki Harms PA Active CLARITIN 10 MG TABS 1prn LORATADINE 60625375541 Active Jocelyne Naff METER ATTENDANT Active ASPIRIN 81 MG TABS 1qd ASPIRIN 24414546903 Active Jocelyne Naff METER ATTENDANT Active OMEPRAZOLE 20 MG CPDR 1 PO Q D OMEPRAZOLE 72774324440 Active Rikki Harms PA Active ZITHROMAX Z-CAROLYN 250 MG TABS 2x1day,8i2vkao AZITHROMYCIN 68731604032 No Longer Active Jocelyne Naff METER ATTENDANT Active MULTIVITAMINS TABS 1qd MULTIVITAMINS TABS MULTIPLE VITAMIN Inactive CHERATUSSIN AC SYRP prn as directed CHERATUSSIN AC SYRP GUAIFENESIN-CODEINE SYRP Inactive MECLIZINE HCL 25 MG TABS 1 prn MECLIZINE HCL 25 MG TABS 488752 MECLIZINE HCL Inactive ZITHROMAX Z-CAROLYN 250 MG TABS 2x1day,9o9mujy ZITHROMAX Z-CAROLYN 250 MG TABS 3693510 AZITHROMYCIN Inactive ZITHROMAX 250 MG TAB 2 po today, then 1 po q days 2-5 ZITHROMAX 250 MG TAB 1147008 AZITHROMYCIN Inactive Vital Signs Date Name Value [...] % 11.6-14.8 platelet count 131 10^3/MM^3 10*3/mm3 606-446 6368/12/12 leukocyte count, blood 28.6 10^3/MM^3 10*3/mm3 4.6-10.2 [...] % 11.6-14.8 platelet count 237 10^3/MM^3 10*3/mm3 959-404 4612/12/23 leukocyte count, blood 6.9 10^3/MM^3 10*3/mm3 4.6-10.2 [...] % 11.6-14.8 platelet count 360 10^3/MM^3 10*3/mm3 334-201 2598/12/31 leukocyte count, blood 5.3 10^3/MM^3 10*3/mm3 4.6-10.2 [...] % 11.6-14.8 platelet count 222 10^3/MM^3 10*3/mm3 085-187 3790/01/07 leukocyte count, blood 11.7 10^3/MM^3 10*3/mm3 4.6-10.2 [...] % 11.6-14.8 platelet count 191 10^3/MM^3 10*3/mm3 142-424 Lab Report: CBC W/DIFF, Comp. Metabolic Panel - Chemistry sodium, serum 144 mmol/L 729-159 8106/12/16 potassium, serum 4.5 mmol/L 3.5-5.2 chloride, serum 107 mmol/L 98-107 carbon dioxide, venous blood 31.4 mmol/L 21.0-32.0 blood glucose 104 mg/dL 65-110 urea nitrogen, blood 17 mg/dL 7-18 creatinine, serum 1.10 mg/dL 0.60-1.30 alanine aminotransferase (SGPT), serum 25 U/L 12-78 aspartate aminotransferase (SGOT), serum 24 U/L 15-37 calcium, serum 8.4 mg/dL 8.5-10.1 bilirubin, serum, total 0.20 mg/dL 0.00-1.00 sodium, serum 141 mmol/L 145-769 5194/01/14 potassium, serum 4.9 mmol/L 3.5-5.2 chloride, serum [...] % 11.6-14.8 platelet count 376 10^3/MM^3 10*3/mm3 958-672 5280/12/16 leukocyte count, blood 19.5 10^3/MM^3 10*3/mm3 4.6-10.2 [...] 142-424 Encounters Code Encounter Date Provider Facility CPT-18881 Level 3 Est. Patient 17:31:22 CDT Solomon Alamo MD [facility] CPT-60263 Level 3 Est. Patient 08:02:14 CDT Solomon Alamo MD [facility] CPT-78514 Level 3 Est. Patient 17:23:53 CDT Rikki Stearns [facility] CPT-31432 Level 3 Est. Patient 11:22:41 CDT Darryn Hearn [facility] Procedures Code Procedure Name Date Entry Date Standard Description CPT-89780 Venipuncture Draw Fee 08:18:55 [employer] CPT-09314 Venipuncture Draw Fee 08:31:18 [employer] CPT-16633 Venipuncture Draw Fee 11:42:52 [employer] CPT-52665 Venipuncture Draw Fee 13:26:37 [employer] CPT-13652 Venipuncture Draw Fee 09:23:38 [employer] CPT-000 Give Appropriate Tetanus Booster 10:23:50 CDT CPT-49620 Bone Density 08:28:45 CDT CPT-78636 Bone Density 11:35:15 CDT CPT-PV Prev. Care Visit 12:19:00 CDT CPT-80680 Venipuncture Draw Fee 15:02:58 CDT
--- OUTSIDE RECORDS SUMMARY | 2018-01-19 08:39 | XMS REPORT | Clinical Summary ---
Author Author Admin, E Organization [facility] Address Unknown Phone Unavailable Allergies, Adverse Reactions, Alerts Allergy Name Reaction Description Start Date Severity Status Provider SULFA facial swelling Critical Active Jocelyne Naff PLUSH CUTTER Conditions or Problems Problem Name Problem Code Onset Date Status Entry Date Provider Comment Standard Description Annotate G E R D 530.81 Active Jocelyne Naff PLUSH CUTTER Esophageal reflux FH COLON CANCER V16.0 Active Jocelyne Naff PLUSH CUTTER Family history of malignant neoplasm of [...] 25 MG TABS 1 prn MECLIZINE HCL 04410915744 No Longer Active Solomon Alamo MD Active CHERATUSSIN AC SYRP prn as directed GUAIFENESIN- CODEINE SYRP 79224240321 No Longer Active Rikki Stearns DARWIN Active MULTIVITAMINS TABS 1qd MULTIPLE VITAMIN 43259792860 No Longer Active Rikki Stearns PA Active CLARITIN 10 MG TABS 1prn LORATADINE 57350235734 Active Jocelyne Naff PLUSH CUTTER Active ASPIRIN 81 MG TABS 1qd ASPIRIN 46366982336 Active Jocelyne Naff PLUSH CUTTER Active OMEPRAZOLE 20 MG CPDR 1 PO Q D OMEPRAZOLE 42051725391 Active Rikki Stearns PA Active ZITHROMAX Z-CAROLYN 250 MG TABS 2x1day,0e1fhim AZITHROMYCIN 76487120298 No Longer Active Jocelyne Naff PLUSH CUTTER Active MULTIVITAMINS TABS 1qd MULTIVITAMINS TABS MULTIPLE VITAMIN Inactive CHERATUSSIN AC SYRP prn as directed CHERATUSSIN AC SYRP GUAIFENESIN-CODEINE SYRP Inactive MECLIZINE HCL 25 MG TABS 1 prn MECLIZINE HCL 25 MG TABS 513784 MECLIZINE HCL Inactive ZITHROMAX Z-CAROLYN 250 MG TABS 2x1day,8d6bmat ZITHROMAX Z-CAROLYN 250 MG TABS 1877146 AZITHROMYCIN Inactive Vital Signs Date Name Value [...] Measured Encounters Code Encounter Date Provider Facility CPT-13186 Level 3 Est. Patient 08:02:14 CDT Solomon Alamo MD [facility] CPT-56044 Level 3 Est. Patient 17:23:53 CDT Rikki Stearns [facility] CPT-26049 Level 3 Est. Patient 11:22:41 CDT Darryn Hearn [facility] Procedures Code Procedure Name Date Entry Date Standard Description CPT-PV Prev. Care Visit 12:19:00 CDT CPT-99344 Venipuncture Draw Fee 15:02:58 CDT
--- OUTSIDE RECORDS SUMMARY | 2018-01-19 08:39 | XMS REPORT | Clinical Summary ---
Author Author Admin, E Organization [facility] Address Unknown Phone Unavailable Allergies, Adverse Reactions, Alerts Allergy Name Reaction Description Start Date Severity Status Provider SULFA facial swelling Critical Active Jocelyne Naff SOUND RANGING CREWMEMBER Conditions or Problems Problem Name Problem Code Onset Date Status Entry Date Provider Comment Standard Description Annotate G E R D 530.81 Active Jocelyne Naff SOUND RANGING CREWMEMBER Esophageal reflux FH COLON CANCER V16.0 Active Jocelyne Naff SOUND RANGING CREWMEMBER Family history of malignant neoplasm of gastrointestinal [...] 25 MG TABS 1 prn MECLIZINE HCL 15809601081 Active Rikki GRANADOS Active CHERATUSSIN AC SYRP prn as directed GUAIFENESIN- CODEINE SYRP 81957635438 No Longer Active Rikki GRANADOS Active MULTIVITAMINS TABS 1qd MULTIPLE VITAMIN 25955987447 No Longer Active Rikki GRANADOS Active CLARITIN 10 MG TABS 1prn LORATADINE 44596024221 Active Jocelyne Tsaif SOUND RANGING CREWMEMBER Active ASPIRIN 81 MG TABS 1qd ASPIRIN 88214007482 Active Jocelyne Naff SOUND RANGING CREWMEMBER Active OMEPRAZOLE 20 MG CPDR 1 PO Q D OMEPRAZOLE 44238467785 Active Rikki GRANADOS Active ZITHROMAX Z-CAROLYN 250 MG TABS 2x1day,1c4vtzy AZITHROMYCIN 49604562557 No Longer Active Jocelyne Lovell SOUND RANGING CREWMEMBER Active MULTIVITAMINS TABS 1qd MULTIVITAMINS TABS MULTIPLE VITAMIN Inactive CHERATUSSIN AC SYRP prn as directed CHERATUSSIN AC SYRP GUAIFENESIN-CODEINE SYRP Inactive ZITHROMAX Z-CAROLYN 250 MG TABS 2x1day,6n3tgsd ZITHROMAX Z-CAROLYN 250 MG TABS 1946425 AZITHROMYCIN Inactive Vital Signs Date Name Value Unit Range Description blood pressure, diastolic - 8462-4 72 mm[Hg] BP rivera blood pressure, systolic - 8480-6 122 mm[Hg] BP sys pulse rate E&M - 8867-4 80 /min Heart rate temperature E&M 99.1 [degF] Body temperature weight E&M - 3141-9 200 [lb_av] Weight Measured Encounters Code Encounter Date Provider Facility CPT-46039 Level 3 Est. Patient 17:23:53 CDT Rikki GRANADOS [facility] CPT-65235 Level 3 Est. Patient 11:22:41 CDT Darryn Hearn [facility] Procedures Code Procedure Name Date Entry Date Standard Description CPT-30344 Venipuncture Draw Fee 15:02:58 CDT
--- OUTSIDE RECORDS SUMMARY | 2018-01-19 08:39 | XMS REPORT | Clinical Summary ---
Author Author Admin, E Organization [facility] Address Unknown Phone Unavailable Allergies, Adverse Reactions, Alerts Allergy Name Reaction Description Start Date Severity Status Provider SULFA facial swelling Critical Active Jocelyne Naff TOASTER OPERATOR Conditions or Problems Problem Name Problem Code Onset Date Status Entry Date Provider Comment Standard Description Annotate G E R D 530.81 Active Jocelyne Naff TOASTER OPERATOR Esophageal reflux FH COLON CANCER V16.0 Active Jocelyne Naff TOASTER OPERATOR Family history of malignant neoplasm of [...] 25 MG TABS 1 prn MECLIZINE HCL 13535882161 No Longer Active Solomon Alamo MD Active CHERATUSSIN AC SYRP prn as directed GUAIFENESIN- CODEINE SYRP 47071766169 No Longer Active Rikki Stearns DARWIN Active MULTIVITAMINS TABS 1qd MULTIPLE VITAMIN 87796129229 No Longer Active Rikki Stearns PA Active CLARITIN 10 MG TABS 1prn LORATADINE 00655668795 Active Jocelyne Naff TOASTER OPERATOR Active ASPIRIN 81 MG TABS 1qd ASPIRIN 37109167188 Active Jocelyne Naff TOASTER OPERATOR Active OMEPRAZOLE 20 MG CPDR 1 PO Q D OMEPRAZOLE 22065430301 Active Rikki Stearns PA Active ZITHROMAX Z-CAROLYN 250 MG TABS 2x1day,4o2ypcp AZITHROMYCIN 46032843837 No Longer Active Jocelyne Naff TOASTER OPERATOR Active MULTIVITAMINS TABS 1qd MULTIVITAMINS TABS MULTIPLE VITAMIN Inactive CHERATUSSIN AC SYRP prn as directed CHERATUSSIN AC SYRP GUAIFENESIN-CODEINE SYRP Inactive MECLIZINE HCL 25 MG TABS 1 prn MECLIZINE HCL 25 MG TABS 567275 MECLIZINE HCL Inactive ZITHROMAX Z-CAROLYN 250 MG TABS 2x1day,9l8hnap ZITHROMAX Z-CAROLYN 250 MG TABS 1601147 AZITHROMYCIN Inactive Vital Signs Date Name Value [...] Measured Encounters Code Encounter Date Provider Facility CPT-32278 Level 3 Est. Patient 08:02:14 CDT Solomon Alamo MD [facility] CPT-15097 Level 3 Est. Patient 17:23:53 CDT Rikki Stearns [facility] CPT-87031 Level 3 Est. Patient 11:22:41 CDT Darryn Hearn [facility] Procedures Code Procedure Name Date Entry Date Standard Description CPT-PV Prev. Care Visit 12:19:00 CDT CPT-30049 Venipuncture Draw Fee 15:02:58 CDT
--- OUTSIDE RECORDS SUMMARY | 2018-01-19 08:39 | XMS REPORT | Clinical Summary ---
[...] E R D 530.81 Active Jocelyne Tsaif RETAIL COSMETICS SALES COUNTER MANAGER Esophageal reflux FH COLON CANCER V16.0 Active Jocelyne Naff [employer] COS[employer] SALES COUNTER MANAGER Family history of malignant neoplasm of gastrointestinal tract ESOPHAGEAL STRICTURE 530.3 Active Darryn Haern PA Stricture and stenosis of esophagus CAROTID [...] then 1 po q days 2-5 AZITHROMYCIN 40825389886 No Longer Active Rikki Harms PA Active MECLIZINE HCL 25 MG TABS 1 prn MECLIZINE HCL 26930086823 No Longer Active Solomon Alamo MD Active CHERATUSSIN AC SYRP prn as directed GUAIFENESIN- CODEINE SYRP 71003557801 No Longer Active Rikki Harms PA Active MULTIVITAMINS TABS 1qd MULTIPLE VITAMIN 15187034556 No Longer Active Rikki Harms PA Active CLARITIN 10 MG TABS 1prn LORATADINE 78870914233 Active Jocelyne Naff RETAIL COSMETICS SALES COUNTER MANAGER Active ASPIRIN 81 MG TABS 1qd ASPIRIN 12446715886 Active Jocelyne Naff RETAIL COSMETICS SALES COUNTER MANAGER Active OMEPRAZOLE 20 MG CPDR 1 PO Q D OMEPRAZOLE 36999001551 Active Rikki Harms PA Active ZITHROMAX Z-CAROLYN 250 MG TABS 2x1day,5h2xsnc AZITHROMYCIN 78063787918 No Longer Active Jocelyne Naff RETAIL COSMETICS SALES COUNTER MANAGER Active MULTIVITAMINS TABS 1qd MULTIVITAMINS TABS MULTIPLE VITAMIN Inactive CHERATUSSIN AC SYRP prn as directed CHERATUSSIN AC SYRP GUAIFENESIN-CODEINE SYRP Inactive MECLIZINE HCL 25 MG TABS 1 prn MECLIZINE HCL 25 MG TABS 443988 MECLIZINE HCL Inactive ZITHROMAX Z-CAROLYN 250 MG TABS 2x1day,1b3yeia ZITHROMAX Z-CAROLYN 250 MG TABS 6572068 AZITHROMYCIN Inactive ZITHROMAX 250 MG TAB 2 po today, then 1 po q days 2-5 ZITHROMAX 250 MG TAB 0711066 AZITHROMYCIN Inactive Vital Signs Date Name Value [...] Measured Encounters Code Encounter Date Provider Facility CPT-01676 Level 3 Est. Patient 17:31:22 CDT Solomon Alamo MD [facility] CPT-57603 Level 3 Est. Patient 08:02:14 CDT Solomon Alamo MD [facility] CPT-77738 Level 3 Est. Patient 17:23:53 CDT Rikki GRANADOS [facility] CPT-01386 Level 3 Est. Patient 11:22:41 CDT Darryn GRANADOS [facility] Procedures Code Procedure Name Date Entry Date Standard Description CPT-74819 Venipuncture Draw Fee 13:26:37 TABLE ASSEMBLER CPT-12321 Venipuncture Draw Fee 09:23:38 TABLE ASSEMBLER CPT-000 Give Appropriate Tetanus Booster 10:23:50 CDT CPT-97614 Bone Density 08:28:45 CDT CPT-94217 Bone Density 11:35:15 CDT CPT-PV Prev. Care Visit 12:19:00 CDT CPT-50906 Venipuncture Draw Fee 15:02:58 CDT
--- OUTSIDE RECORDS SUMMARY | 2018-01-19 08:39 | XMS REPORT | Clinical Summary ---
Author Author Admin, E Organization [facility] Address Unknown Phone Unavailable Allergies, Adverse Reactions, Alerts Allergy Name Reaction Description Start Date Severity Status Provider SULFA facial swelling Critical Active Jocelyne Liliya SHIFT STACKER Conditions or Problems Problem Name Problem Code Onset Date Status Entry Date Provider Comment Standard Description Annotate G E R D 530.81 Active Jocelyne Naff SHIFT STACKER Esophageal reflux FH COLON CANCER V16.0 Active Jocelyne Naff SHIFT STACKER Family history of malignant neoplasm of gastrointestinal [...] Active Solomon Alamo MD Abnormal mammogram, unspecified Medication List Medication Instructions Start Date Stop Date Generic Name NDC Status Provider Patient Instruction MECLIZINE HCL 25 MG TABS 1 prn MECLIZINE HCL 85825458643 No Longer Active Solomon Alamo MD Active CHERATUSSIN AC SYRP prn as directed GUAIFENESIN- CODEINE SYRP 32741684472 No Longer Active Rikki GRANADOS Active MULTIVITAMINS TABS 1qd MULTIPLE VITAMIN 22659050205 No Longer Active Rikki GRANADOS Active CLARITIN 10 MG TABS 1prn LORATADINE 36476242782 Active Jocelyne Naff SHIFT STACKER Active ASPIRIN 81 MG TABS 1qd ASPIRIN 94676407958 Active Jocelyne Naff SHIFT STACKER Active OMEPRAZOLE 20 MG CPDR 1 PO Q D OMEPRAZOLE 17555586434 Active Rikki Stearns PA Active ZITHROMAX Z-CAROLYN 250 MG TABS 2x1day,7e1emyu AZITHROMYCIN 97604065476 No Longer Active Jocelyne Lovell SHIFT STACKER Active MULTIVITAMINS TABS 1qd MULTIVITAMINS TABS MULTIPLE VITAMIN Inactive CHERATUSSIN AC SYRP prn as directed CHERATUSSIN AC SYRP GUAIFENESIN-CODEINE SYRP Inactive MECLIZINE HCL 25 MG TABS 1 prn MECLIZINE HCL 25 MG TABS 493512 MECLIZINE HCL Inactive ZITHROMAX Z-CAROLYN 250 MG TABS 2x1day,2c5cmtr ZITHROMAX Z-CAROLYN 250 MG TABS 5192095 AZITHROMYCIN Inactive Vital Signs Date Name Value [...] Measured Encounters Code Encounter Date Provider Facility CPT-91124 Level 3 Est. Patient 08:02:14 CDT Solomon Alamo MD [facility] CPT-88979 Level 3 Est. Patient 17:23:53 CDT Rikki GRANADOS [facility] CPT-89281 Level 3 Est. Patient 11:22:41 CDT Darryn Hearn [facility] Procedures Code Procedure Name Date Entry Date Standard Description CPT-51678 Venipuncture Draw Fee 15:02:58 CDT
--- OUTSIDE RECORDS SUMMARY | 2018-01-19 08:40 | XMS REPORT | Clinical Summary ---
Author Author Admin, E Organization [facility] Address Unknown Phone Unavailable Allergies, Adverse Reactions, Alerts Allergy Name Reaction Description Start Date Severity Status Provider SULFA facial swelling Critical Active Jocelyne Naff PIPE OUT WORKER Conditions or Problems Problem Name Problem Code Onset Date Status Entry Date Provider Comment Standard Description Annotate G E R D 530.81 Active Jocelyne Naff PIPE OUT WORKER Esophageal reflux FH COLON CANCER V16.0 Active Jocelyne Naff PIPE OUT WORKER Family history of malignant neoplasm of [...] 25 MG TABS 1 prn MECLIZINE HCL 51641813942 Active Rikki GRANADOS Active CHERATUSSIN AC SYRP prn as directed GUAIFENESIN- CODEINE SYRP 21551804626 No Longer Active Rikki GRANADOS Active MULTIVITAMINS TABS 1qd MULTIPLE VITAMIN 13988537887 No Longer Active Rikki GRANADOS Active CLARITIN 10 MG TABS 1prn LORATADINE 87244693755 Active Jocelyne Tsaif PIPE OUT WORKER Active ASPIRIN 81 MG TABS 1qd ASPIRIN 04789610462 Active Jocelyne Naff PIPE OUT WORKER Active OMEPRAZOLE 20 MG CPDR 1 PO Q D OMEPRAZOLE 59961744362 Active Rikki GRANADOS Active ZITHROMAX Z-CAROLYN 250 MG TABS 2x1day,1d7pofx AZITHROMYCIN 54580332457 No Longer Active Jocelyne Lovell PIPE OUT WORKER Active MULTIVITAMINS TABS 1qd MULTIVITAMINS TABS MULTIPLE VITAMIN Inactive CHERATUSSIN AC SYRP prn as directed CHERATUSSIN AC SYRP GUAIFENESIN-CODEINE SYRP Inactive ZITHROMAX Z-CAROLYN 250 MG TABS 2x1day,3e4vrel ZITHROMAX Z-CAROLYN 250 MG TABS 2883495 AZITHROMYCIN Inactive Vital Signs Date Name Value Unit Range Description blood pressure, diastolic - 8462-4 72 mm[Hg] BP rivera blood pressure, systolic - 8480-6 122 mm[Hg] BP sys pulse rate E&M - 8867-4 80 /min Heart rate temperature E&M 99.1 [degF] Body temperature weight E&M - 3141-9 200 [lb_av] Weight Measured Encounters Code Encounter Date Provider Facility CPT-19142 Level 3 Est. Patient 17:23:53 CDT Rikki GRANADOS [facility] CPT-55428 Level 3 Est. Patient 11:22:41 CDT Darryn Hearn [facility] Procedures Code Procedure Name Date Entry Date Standard Description CPT-72692 Venipuncture Draw Fee 15:02:58 CDT
--- OUTSIDE RECORDS SUMMARY | 2018-01-19 08:40 | XMS REPORT | Clinical Summary ---
Author Author Admin, E Organization [facility] Address Unknown Phone Unavailable Allergies, Adverse Reactions, Alerts Allergy Name Reaction Description Start Date Severity Status Provider SULFA facial swelling Critical Active Jocelyne Quinf OFFICE MACHINES SALES REPRESENTATIVE Conditions or Problems Problem Name Problem Code Onset Date Status Entry Date Provider Comment Standard Description Annotate G E R D 530.81 Active Jocelyne Naff OFFICE MACHINES SALES REPRESENTATIVE Esophageal reflux FH COLON CANCER V16.0 Active Jocelyne Naff OFFICE MACHINES SALES REPRESENTATIVE Family history of malignant neoplasm of [...] Instructions Start Date Stop Date Generic Name KYC Status Provider Patient Instruction MECLIZINE HCL 25 MG TABS 1 prn MECLIZINE HCL 09029406193 Active Rikki Stearns PA Active CHERATUSSIN AC SYRP prn as directed GUAIFENESIN- CODEINE SYRP 75317993902 No Longer Active Rikki GRANADOS Active MULTIVITAMINS TABS 1qd MULTIPLE VITAMIN 31638530806 No Longer Active Rikki Stearns PA Active CLARITIN 10 MG TABS 1prn LORATADINE 19846443944 Active Jocelyne Quinf OFFICE MACHINES SALES REPRESENTATIVE Active ASPIRIN 81 MG TABS 1qd ASPIRIN 66374333496 Active Jocelyne Lovell OFFICE MACHINES SALES REPRESENTATIVE Active OMEPRAZOLE 20 MG CPDR 1 PO Q D OMEPRAZOLE 06307042067 Active Rikki GRANADOS Active ZITHROMAX Z-CAROLYN 250 MG TABS 2x1day,3z0fyoz AZITHROMYCIN 32291097128 No Longer Active Jocelyne Lovell OFFICE MACHINES SALES REPRESENTATIVE Active MULTIVITAMINS TABS 1qd MULTIVITAMINS TABS MULTIPLE VITAMIN Inactive CHERATUSSIN AC SYRP prn as directed CHERATUSSIN AC SYRP GUAIFENESIN-CODEINE SYRP Inactive ZITHROMAX Z-CAROLYN 250 MG TABS 2x1day,9y9vmpr ZITHROMAX Z-CAROLYN 250 MG TABS 3505369 AZITHROMYCIN Inactive Vital Signs Date Name Value Unit Range Description blood pressure, diastolic - 8462-4 72 mm[Hg] BP rivera blood pressure, systolic - 8480-6 122 mm[Hg] BP sys pulse rate E&M - 8867-4 80 /min Heart rate temperature E&M 99.1 [degF] Body temperature weight E&M - 3141-9 200 [lb_av] Weight Measured Encounters Code Encounter Date Provider Facility CPT-81821 Level 3 Est. Patient 17:23:53 CDT Rikki GRANADOS [facility] CPT-35959 Level 3 Est. Patient 11:22:[address] [facility] Procedures Code Procedure Name Date Entry Date Standard Description CPT-07278 Venipuncture Draw Fee 15:02:58 CDT
--- OUTSIDE RECORDS SUMMARY | 2018-01-19 08:40 | XMS REPORT | Clinical Summary ---
Author Author Admin, E Organization [facility] Address Unknown Phone Unavailable Allergies, Adverse Reactions, Alerts Allergy Name Reaction Description Start Date Severity Status Provider SULFA facial swelling Critical Active Jocelyne Naff PHOTOGRAPHY ASSISTANT Conditions or Problems Problem Name Problem Code Onset Date Status Entry Date Provider Comment Standard Description Annotate G E R D 530.81 Active Jocelyne Naff PHOTOGRAPHY ASSISTANT Esophageal reflux FH COLON CANCER V16.0 Active Jocelyne Naff PHOTOGRAPHY ASSISTANT Family history of malignant neoplasm of [...] 25 MG TABS 1 prn MECLIZINE HCL 62655671957 No Longer Active Solomon Alamo MD Active CHERATUSSIN AC SYRP prn as directed GUAIFENESIN- CODEINE SYRP 24385914354 No Longer Active Rikki Stearns DARWIN Active MULTIVITAMINS TABS 1qd MULTIPLE VITAMIN 92210180866 No Longer Active Rikki Stearns PA Active CLARITIN 10 MG TABS 1prn LORATADINE 84336825612 Active Jocelyne Naff PHOTOGRAPHY ASSISTANT Active ASPIRIN 81 MG TABS 1qd ASPIRIN 03283355820 Active Jocelyne Naff PHOTOGRAPHY ASSISTANT Active OMEPRAZOLE 20 MG CPDR 1 PO Q D OMEPRAZOLE 41488106964 Active Rikki Stearns PA Active ZITHROMAX Z-CAROLYN 250 MG TABS 2x1day,7y6zwbo AZITHROMYCIN 37018797882 No Longer Active Jocelyne Naff PHOTOGRAPHY ASSISTANT Active MULTIVITAMINS TABS 1qd MULTIVITAMINS TABS MULTIPLE VITAMIN Inactive CHERATUSSIN AC SYRP prn as directed CHERATUSSIN AC SYRP GUAIFENESIN-CODEINE SYRP Inactive MECLIZINE HCL 25 MG TABS 1 prn MECLIZINE HCL 25 MG TABS 595274 MECLIZINE HCL Inactive ZITHROMAX Z-CAROLYN 250 MG TABS 2x1day,9n3awdo ZITHROMAX Z-CAROLYN 250 MG TABS 1801149 AZITHROMYCIN Inactive Vital Signs Date Name Value [...] pressure, diastolic - 8462-4 72 mm[Hg] BP irvera blood pressure, systolic - 8480-6 122 mm[Hg] BP sys pulse rate E&M - 8867-4 80 /min Heart rate temperature E&M 99.1 [degF] Body temperature weight E&M - 3141-9 200 [lb_av] Weight Measured Encounters Code Encounter Date Provider Facility CPT-38748 Level 3 Est. Patient 08:02:14 CDT Solomon Alamo MD [facility] CPT-53625 Level 3 Est. Patient 17:23:53 CDT Rikki Stearns [facility] CPT-84391 Level 3 Est. Patient 11:22:41 CDT Darryn Hearn [facility] Procedures Code Procedure Name Date Entry Date Standard Description CPT-PV Prev. Care Visit 12:19:00 CDT CPT-92812 Venipuncture Draw Fee 15:02:58 CDT
--- OUTSIDE RECORDS SUMMARY | 2018-01-19 08:40 | XMS REPORT | Clinical Summary ---
Author Author Admin, E Organization [facility] Address Unknown Phone Unavailable Allergies, Adverse Reactions, Alerts Allergy Name Reaction Description Start Date Severity Status Provider SULFA facial swelling Critical Active Jocelyne Lovell LPN Conditions or Problems Problem Name Problem Code Onset Date Status Entry Date Provider Comment Standard Description Annotate G E R D 530.81 Active Jocelyne Tsaif TWO NEEDLE 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 Esophageal reflux FH COLON CANCER V16.0 Active Jocelyne Naff TWO NEEDLE 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 Family history of malignant neoplasm [...] then 1 po q days 2-5 AZITHROMYCIN 84855848840 No Longer Active Rikki Harms PA Active MECLIZINE HCL 25 MG TABS 1 prn MECLIZINE HCL 05828006562 No Longer Active Solomon Alamo MD Active CHERATUSSIN AC SYRP prn as directed GUAIFENESIN- CODEINE SYRP 42900457517 No Longer Active Rikki Harms PA Active MULTIVITAMINS TABS 1qd MULTIPLE VITAMIN 61396385941 No Longer Active Rikki Harms PA Active CLARITIN 10 MG TABS 1prn LORATADINE 07896748844 Active Jocelyne Naff TWO NEEDLE 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 Active ASPIRIN 81 MG TABS 1qd ASPIRIN 52249015312 Active Jocelyne Naff TWO NEEDLE 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 Active OMEPRAZOLE 20 MG CPDR 1 PO Q D OMEPRAZOLE 57475968572 Active Rikki Harms PA Active ZITHROMAX Z-CAROLYN 250 MG TABS 2x1day,4l0ztgg AZITHROMYCIN 75841947465 No Longer Active Jocelyne Naff TWO NEEDLE 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 Active MULTIVITAMINS TABS 1qd MULTIVITAMINS TABS MULTIPLE VITAMIN Inactive CHERATUSSIN AC SYRP prn as directed CHERATUSSIN AC SYRP GUAIFENESIN-CODEINE SYRP Inactive MECLIZINE HCL 25 MG TABS 1 prn MECLIZINE HCL 25 MG TABS 467802 MECLIZINE HCL Inactive ZITHROMAX Z-CAROLYN 250 MG TABS 2x1day,3i5izru ZITHROMAX Z-CAROLYN 250 MG TABS 3075281 AZITHROMYCIN Inactive ZITHROMAX 250 MG TAB 2 po today, then 1 po q days 2-5 ZITHROMAX 250 MG TAB 4194829 AZITHROMYCIN Inactive Vital Signs Date Name Value [...] Measured Encounters Code Encounter Date Provider Facility CPT-22051 Level 3 Est. Patient 17:31:22 CDT Solomon Alamo MD [facility] CPT-54074 Level 3 Est. Patient 08:02:14 CDT Solomon Alamo MD [facility] CPT-95249 Level 3 Est. Patient 17:23:53 CDT Rikki Stearns [facility] CPT-31719 Level 3 Est. Patient 11:22:41 CDT Darryn Hearn [facility] Procedures Code Procedure Name Date Entry Date Standard Description CPT-000 Give Appropriate Tetanus Booster 10:23:50 CDT CPT-88376 Bone Density 08:28:45 CDT CPT-09236 Bone Density 11:35:15 CDT CPT-PV Prev. Care Visit 12:19:00 CDT CPT-45561 Venipuncture Draw Fee 15:02:58 CDT
--- OUTSIDE RECORDS SUMMARY | 2018-01-19 08:40 | XMS REPORT | Clinical Summary ---
Author Author Admin, E Organization [facility] Address Unknown Phone Unavailable Allergies, Adverse Reactions, Alerts Allergy Name Reaction Description Start Date Severity Status Provider SULFA facial swelling Critical Active Jocelyne Quinf SHOVEL OILER Conditions or Problems Problem Name Problem Code Onset Date Status Entry Date Provider Comment Standard Description Annotate G E R D 530.81 Active Jocelyne Naff SHOVEL OILER Esophageal reflux FH COLON CANCER V16.0 Active Jocelyne Naff SHOVEL OILER Family history of malignant neoplasm of gastrointestinal [...] Instructions Start Date Stop Date Generic Name TXC Status Provider Patient Instruction MECLIZINE HCL 25 MG TABS 1 prn MECLIZINE HCL 04925125444 Active Rikki GRANADOS Active CHERATUSSIN AC SYRP prn as directed GUAIFENESIN- CODEINE SYRP 55354263491 No Longer Active Rikki GRANADOS Active MULTIVITAMINS TABS 1qd MULTIPLE VITAMIN 38597929804 No Longer Active Rikki Stearns PA Active CLARITIN 10 MG TABS 1prn LORATADINE 84063110615 Active Jocelyne Quinf SHOVEL OILER Active ASPIRIN 81 MG TABS 1qd ASPIRIN 67966064612 Active Jocelyne Lovell SHOVEL OILER Active OMEPRAZOLE 20 MG CPDR 1 PO Q D OMEPRAZOLE 90277899671 Active Rikki GRANADOS Active ZITHROMAX Z-CAROLYN 250 MG TABS 2x1day,9d5oeqw AZITHROMYCIN 52713416525 No Longer Active Jocelyne Lovell SHOVEL OILER Active MULTIVITAMINS TABS 1qd MULTIVITAMINS TABS MULTIPLE VITAMIN Inactive CHERATUSSIN AC SYRP prn as directed CHERATUSSIN AC SYRP GUAIFENESIN-CODEINE SYRP Inactive ZITHROMAX Z-CAROLYN 250 MG TABS 2x1day,4m6nfvv ZITHROMAX Z-CAROLYN 250 MG TABS 4480554 AZITHROMYCIN Inactive Vital Signs Date Name Value Unit Range Description blood pressure, diastolic - 8462-4 72 mm[Hg] BP rivera blood pressure, systolic - 8480-6 122 mm[Hg] BP sys pulse rate E&M - 8867-4 80 /min Heart rate temperature E&M 99.1 [degF] Body temperature weight E&M - 3141-9 200 [lb_av] Weight Measured Encounters Code Encounter Date Provider Facility CPT-68543 Level 3 Est. Patient 17:23:[address] [facility] CPT-16299 Level 3 Est. Patient 11:22:41 CDT Darryn Hearn [facility] Procedures Code Procedure Name Date Entry Date Standard Description CPT-66965 Venipuncture Draw Fee 15:02:58 CDT
--- OUTSIDE RECORDS SUMMARY | 2018-01-19 08:41 | XMS REPORT | Clinical Summary ---
Author Author Admin, E Organization [facility] Address Unknown Phone Unavailable Allergies, Adverse Reactions, Alerts Allergy Name Reaction Description Start Date Severity Status Provider SULFA facial swelling Critical Active Jocelyne Quindomenica GAS WELDING EQUIPMENT MECHANIC Conditions or Problems Problem Name Problem Code Onset Date Status Entry Date Provider Comment Standard Description Annotate G E R D 530.81 Active Jocelyne Naff GAS WELDING EQUIPMENT MECHANIC Esophageal reflux FH COLON CANCER V16.0 Active Jocelyne Naff GAS WELDING EQUIPMENT MECHANIC Family history of malignant neoplasm of [...] then 1 po q days 2-5 AZITHROMYCIN 35932158883 No Longer Active Rikki Harms PA Active MECLIZINE HCL 25 MG TABS 1 prn MECLIZINE HCL 89838788716 No Longer Active Solomon Alamo MD Active CHERATUSSIN AC SYRP prn as directed GUAIFENESIN- CODEINE SYRP 18896406062 No Longer Active Rikki Harms PA Active MULTIVITAMINS TABS 1qd MULTIPLE VITAMIN 15192572441 No Longer Active Rikki Harms PA Active CLARITIN 10 MG TABS 1prn LORATADINE 36968071118 Active Jocelyne Naff GAS WELDING EQUIPMENT MECHANIC Active ASPIRIN 81 MG TABS 1qd ASPIRIN 98751242079 Active Jocelyne Naff GAS WELDING EQUIPMENT MECHANIC Active OMEPRAZOLE 20 MG CPDR 1 PO Q D OMEPRAZOLE 33927460845 Active Rikki Harms PA Active ZITHROMAX Z-CAROLYN 250 MG TABS 2x1day,3l7lssm AZITHROMYCIN 59347933030 No Longer Active Jocelyne Naff GAS WELDING EQUIPMENT MECHANIC Active MULTIVITAMINS TABS 1qd MULTIVITAMINS TABS MULTIPLE VITAMIN Inactive CHERATUSSIN AC SYRP prn as directed CHERATUSSIN AC SYRP GUAIFENESIN-CODEINE SYRP Inactive MECLIZINE HCL 25 MG TABS 1 prn MECLIZINE HCL 25 MG TABS 371041 MECLIZINE HCL Inactive ZITHROMAX Z-CAROLYN 250 MG TABS 2x1day,4r8uegf ZITHROMAX Z-CAROLYN 250 MG TABS 1187721 AZITHROMYCIN Inactive ZITHROMAX 250 MG TAB 2 po today, then 1 po q days 2-5 ZITHROMAX 250 MG TAB 6626055 AZITHROMYCIN Inactive Vital Signs Date Name Value [...] % 11.6-14.8 platelet count 360 10^3/MM^3 10*3/mm3 705-829 6945/12/31 leukocyte count, blood 5.3 10^3/MM^3 10*3/mm3 4.6-10.2 [...] % 11.6-14.8 platelet count 222 10^3/MM^3 10*3/mm3 757-608 6466/01/07 leukocyte count, blood 11.7 10^3/MM^3 10*3/mm3 4.6-10.2 [...] % 11.6-14.8 platelet count 191 10^3/MM^3 10*3/mm3 734-187 8044/12/10 hemoglobin, blood 14.8 g/dL 12.0-16.0 hematocrit, blood 44.3 % 36.0-46.0 mean corpuscular volume, RBC 90 fL 80-97 mean corpuscular hemoglobin, RBC 30.1 pg 27.0-31.2 mean corpuscular hemoglobin concentration, RBC 33.5 G/DL % 31.8- 35.4 red blood cell distribution width 14.5 % 11.6-14.8 platelet count 131 10^3/MM^3 10*3/mm3 556-468 0965/12/12 leukocyte count, blood 28.6 10^3/MM^3 10*3/mm3 4.6-10.2 [...] % 11.6-14.8 platelet count 237 10^3/MM^3 10*3/mm3 219-995 5951/12/10 erythrocyte (RBC) count 4.93 10^6/MM^3 10*6/mm3 4.04-5.48 [...] % 11.6-14.8 platelet count 195 10^3/MM^3 10*3/mm3 707-370 7745/01/28 leukocyte count, blood 11.9 10^3/MM^3 10*3/mm3 4.6-10.2 [...] % 11.6-14.8 platelet count 278 10^3/MM^3 10*3/mm3 367-355 7605/02/04 leukocyte count, blood 8.5 10^3/MM^3 10*3/mm3 4.6-10.2 [...] % 11.6-14.8 platelet count 326 10^3/MM^3 10*3/mm3 352-002 3511/02/10 leukocyte count, blood 2.3 10^3/MM^3 10*3/mm3 4.6-10.2 [...] % 11.6-14.8 platelet count 240 10^3/MM^3 10*3/mm3 975-236 7628/02/17 leukocyte count, blood 3.4 10^3/MM^3 10*3/mm3 4.6-10.2 [...] Panel - Chemistry sodium, serum 144 mmol/L 899-608 4656/12/16 potassium, serum 4.5 mmol/L 3.5-5.2 chloride, serum 107 mmol/L 98-107 carbon dioxide, venous blood 31.4 mmol/L 21.0-32.0 blood glucose 104 mg/dL 65-110 urea nitrogen, blood 17 mg/dL 7-18 creatinine, serum 1.10 mg/dL 0.60-1.30 alanine aminotransferase (SGPT), serum 25 U/L 12-78 aspartate aminotransferase (SGOT), serum 24 U/L 15-37 calcium, serum 8.4 mg/dL 8.5-10.1 bilirubin, serum, total 0.20 mg/dL 0.00-1.00 sodium, serum 141 mmol/L 534-953 2940/01/14 potassium, serum 4.9 mmol/L 3.5-5.2 chloride, serum [...] % 11.6-14.8 platelet count 239 10^3/MM^3 10*3/mm3 535-190 0796/01/14 leukocyte count, blood 6.7 10^3/MM^3 10*3/mm3 4.6-10.2 [...] Panel - Chemistry sodium, serum 141 mmol/L 519-892 8346/02/10 potassium, serum 5.2 mmol/L 3.5-5.2 chloride, serum [...] 0.00-1.00 Encounters Code Encounter Date Provider Facility CPT-40643 Level 3 Est. Patient 17:31:22 CDT Solomon Alamo MD [facility] CPT-06084 Level 3 Est. Patient 08:02:14 CDT Solomon Alamo MD [facility] CPT-61670 Level 3 Est. Patient 17:23:53 CDT Rikki GRANADOS [facility] CPT-39863 Level 3 Est. Patient 11:22:41 CDT Darryn Hearn [facility] Procedures Code Procedure Name Date Entry Date Standard Description CPT-50659 Venipuncture Draw Fee 08:16:46 SUPERVISOR IRRIGATION CPT-33580 Venipuncture Draw Fee 08:18:55 SUPERVISOR IRRIGATION CPT-77755 Venipuncture Draw Fee 08:31:18 SUPERVISOR IRRIGATION CPT-95002 Venipuncture Draw Fee 11:42:52 SUPERVISOR IRRIGATION CPT-91794 Venipuncture Draw Fee 13:26:37 SUPERVISOR IRRIGATION CPT-93124 Venipuncture Draw Fee 09:23:38 SUPERVISOR IRRIGATION CPT-000 Give Appropriate Tetanus Booster 10:23:50 CDT CPT-83177 Bone Density 08:28:45 CDT CPT-05997 Bone Density 11:35:15 CDT CPT-PV Prev. Care Visit 12:19:00 CDT CPT-13640 Venipuncture Draw Fee 15:02:58 CDT
--- OUTSIDE RECORDS SUMMARY | 2018-01-19 08:41 | XMS REPORT | Clinical Summary ---
Author Author Admin, E Organization 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 PROCESSING LABOURER Esophageal reflux FH COLON CANCER V16.0 Active Jocelyne Naff MINERAL ORE PROCESSING LABOURER Family history of malignant neoplasm of gastrointestinal [...] then 1 po q days 2-5 AZITHROMYCIN 23466721340 No Longer Active Rikki Harms PA Active MECLIZINE HCL 25 MG TABS 1 prn MECLIZINE HCL 62476294902 No Longer Active Solomon Alamo MD Active CHERATUSSIN AC SYRP prn as directed GUAIFENESIN- CODEINE SYRP 19676263564 No Longer Active Rikki Harms PA Active MULTIVITAMINS TABS 1qd MULTIPLE VITAMIN 88122478519 No Longer Active Rikki Harms PA Active CLARITIN 10 MG TABS 1prn LORATADINE 54878782010 Active Jocelyne Naff MINERAL ORE PROCESSING LABOURER Active ASPIRIN 81 MG TABS 1qd ASPIRIN 55234912126 Active Jocelyne Naff MINERAL ORE PROCESSING LABOURER Active OMEPRAZOLE 20 MG CPDR 1 PO Q D OMEPRAZOLE 57039378316 Active Rikki Harms PA Active ZITHROMAX Z-CAROLYN 250 MG TABS 2x1day,0d4kzht AZITHROMYCIN 96083495951 No Longer Active Jocelyne Naff MINERAL ORE PROCESSING LABOURER Active MULTIVITAMINS TABS 1qd MULTIVITAMINS TABS MULTIPLE VITAMIN Inactive CHERATUSSIN AC SYRP prn as directed CHERATUSSIN AC SYRP GUAIFENESIN-CODEINE SYRP Inactive MECLIZINE HCL 25 MG TABS 1 prn MECLIZINE HCL 25 MG TABS 903038 MECLIZINE HCL Inactive ZITHROMAX Z-CAROLYN 250 MG TABS 2x1day,7p5lejt ZITHROMAX Z-CAROLYN 250 MG TABS 1215395 AZITHROMYCIN Inactive ZITHROMAX 250 MG TAB 2 po today, then 1 po q days 2-5 ZITHROMAX 250 MG TAB 9445804 AZITHROMYCIN Inactive Vital Signs Date Name Value [...] % 11.6-14.8 platelet count 131 10^3/MM^3 10*3/mm3 906-307 4108/12/12 leukocyte count, blood 28.6 10^3/MM^3 10*3/mm3 4.6-10.2 [...] % 11.6-14.8 platelet count 237 10^3/MM^3 10*3/mm3 660-376 8773/12/10 erythrocyte (RBC) count 4.93 10^6/MM^3 10*6/mm3 4.04-5.48 lymphocytes as percent of blood leukocytes 65.9 % 20.5-51.1 monocytes as percent of blood leukocytes 25.7 % 1.7-9.3 neutrophils as percent of blood leukocytes 1.4 % 42.2-75.2 leukocyte count, blood 1.3 10^3/MM^3 10*3/mm3 4.6-10.2 Encounters Code Encounter Date Provider Facility CPT-68666 Level 3 Est. Patient 17:31:22 CDT Solomon Alamo MD [facility] CPT-35581 Level 3 Est. Patient 08:02:14 CDT Solomon Alamo MD [facility] CPT-85878 Level 3 Est. Patient 17:23:53 CDT Rikki Stearns [facility] CPT-37818 Level 3 Est. Patient 11:22:41 CDT Darryn Hearn [facility] Procedures Code Procedure Name Date Entry Date Standard Description CPT-78351 Venipuncture Draw Fee 11:42:52 CHIN STRAP CUTTER CPT-54962 Venipuncture Draw Fee 13:26:37 CHIN STRAP CUTTER CPT-78207 Venipuncture Draw Fee 09:23:38 CHIN STRAP CUTTER CPT-000 Give Appropriate Tetanus Booster 10:23:50 CDT CPT-78379 Bone Density 08:28:45 CDT CPT-10313 Bone Density 11:35:15 CDT CPT-PV Prev. Care Visit 12:19:00 CDT CPT-12421 Venipuncture Draw Fee 15:02:58 CDT
--- OUTSIDE RECORDS SUMMARY | 2018-01-19 08:41 | XMS REPORT | Clinical Summary ---
Author Author Admin, E Organization [facility] Address Unknown Phone Unavailable Allergies, Adverse Reactions, Alerts Allergy Name Reaction Description Start Date Severity Status Provider SULFA facial swelling Critical Active Jocelyne Naff EXERCISE PHYSIOLOGIST CERTIFIED Conditions or Problems Problem Name Problem Code Onset Date Status Entry Date Provider Comment Standard Description Annotate G E R D 530.81 Active Jocelyne Naff EXERCISE PHYSIOLOGIST CERTIFIED Esophageal reflux FH COLON CANCER V16.0 Active Jocelyne Naff EXERCISE PHYSIOLOGIST CERTIFIED Family history of malignant neoplasm of gastrointestinal [...] 25 MG TABS 1 prn MECLIZINE HCL 12101556730 No Longer Active Solomon Alamo MD Active CHERATUSSIN AC SYRP prn as directed GUAIFENESIN- CODEINE SYRP 81485135852 No Longer Active Rikki Stearns DARWIN Active MULTIVITAMINS TABS 1qd MULTIPLE VITAMIN 61911678815 No Longer Active Rikki Stearns PA Active CLARITIN 10 MG TABS 1prn LORATADINE 64226951897 Active Jocelyne Naff EXERCISE PHYSIOLOGIST CERTIFIED Active ASPIRIN 81 MG TABS 1qd ASPIRIN 91542343745 Active Jocelyne Naff EXERCISE PHYSIOLOGIST CERTIFIED Active OMEPRAZOLE 20 MG CPDR 1 PO Q D OMEPRAZOLE 21977656806 Active Rikki Stearns PA Active ZITHROMAX Z-CAROLYN 250 MG TABS 2x1day,0y5gzec AZITHROMYCIN 39065145872 No Longer Active Jocelyne Naff EXERCISE PHYSIOLOGIST CERTIFIED Active MULTIVITAMINS TABS 1qd MULTIVITAMINS TABS MULTIPLE VITAMIN Inactive CHERATUSSIN AC SYRP prn as directed CHERATUSSIN AC SYRP GUAIFENESIN-CODEINE SYRP Inactive MECLIZINE HCL 25 MG TABS 1 prn MECLIZINE HCL 25 MG TABS 569048 MECLIZINE HCL Inactive ZITHROMAX Z-CAROLYN 250 MG TABS 2x1day,8b7yucv ZITHROMAX Z-CAROLYN 250 MG TABS 0817810 AZITHROMYCIN Inactive Vital Signs Date Name Value [...] Measured Encounters Code Encounter Date Provider Facility CPT-10494 Level 3 Est. Patient 08:02:14 CDT Solomon Alamo MD [facility] CPT-68645 Level 3 Est. Patient 17:23:53 CDT Rikki Stearns [facility] CPT-87026 Level 3 Est. Patient 11:22:41 CDT Darryn Hearn [facility] Procedures Code Procedure Name Date Entry Date Standard Description CPT-89409 Bone Density 11:35:15 CDT CPT-PV Prev. Care Visit 12:19:00 CDT CPT-08749 Venipuncture Draw Fee 15:02:58 CDT
--- OUTSIDE RECORDS SUMMARY | 2018-01-19 08:41 | XMS REPORT | Clinical Summary ---
Author Author Admin, E Organization [facility] Address Unknown Phone Unavailable Allergies, Adverse Reactions, Alerts Allergy Name Reaction Description Start Date Severity Status Provider SULFA facial swelling Critical Active Jocelyne Naff PROOFING 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 Conditions or Problems Problem Name Problem Code Onset Date Status Entry Date Provider Comment Standard Description Annotate G E R D 530.81 Active Jocelyne Naff PROOFING 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 Esophageal reflux FH COLON CANCER V16.0 Active Jocelyne Naff PROOFING 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 Family history of malignant neoplasm [...] Jennifer Chun MD PhD Routine gynecological examination Medication List Medication Instructions Start Date Stop Date Generic Name NDC Status Provider Patient Instruction MECLIZINE HCL 25 MG TABS 1 prn MECLIZINE HCL 74886634200 No Longer Active Solomon Alamo MD Active CHERATUSSIN AC SYRP prn as directed GUAIFENESIN- CODEINE SYRP 16646804535 No Longer Active Rikki Harms PA Active MULTIVITAMINS TABS 1qd MULTIPLE VITAMIN 80934772410 No Longer Active Rikki Harms PA Active CLARITIN 10 MG TABS 1prn LORATADINE 45629428582 Active Jocelyne Tsaif PROOFING 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 Active ASPIRIN 81 MG TABS 1qd ASPIRIN 39127646527 Active Jocelyne Naff PROOFING 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 Active OMEPRAZOLE 20 MG CPDR 1 PO Q D OMEPRAZOLE 70934615194 Active Rikki Harms PA Active ZITHROMAX Z-CAROLYN 250 MG TABS 2x1day,3n4mfda AZITHROMYCIN 53507290367 No Longer Active Joceylne Tsaif PROOFING 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 Active MULTIVITAMINS TABS 1qd MULTIVITAMINS TABS MULTIPLE VITAMIN Inactive CHERATUSSIN AC SYRP prn as directed CHERATUSSIN AC SYRP GUAIFENESIN-CODEINE SYRP Inactive MECLIZINE HCL 25 MG TABS 1 prn MECLIZINE HCL 25 MG TABS 924702 MECLIZINE HCL Inactive ZITHROMAX Z-CAROLYN 250 MG TABS 2x1day,7y2cvyk ZITHROMAX Z-CAROLYN 250 MG TABS 3744518 AZITHROMYCIN Inactive Vital Signs Date Name Value [...] Measured Encounters Code Encounter Date Provider Facility CPT-61587 Level 3 Est. Patient 08:02:14 CDT Solomon Alamo MD [facility] CPT-95626 Level 3 Est. Patient 17:23:53 CDT Rikki Stearns [facility] CPT-15453 Level 3 Est. Patient 11:22:41 CDT Darryn Hearn [facility] Procedures Code Procedure Name Date Entry Date Standard Description CPT-PV Prev. Care Visit 12:19:00 CDT CPT-48333 Venipuncture Draw Fee 15:02:58 CDT
--- OUTSIDE RECORDS SUMMARY | 2018-01-19 08:42 | XMS REPORT | Clinical Summary ---
[...] E R D 530.81 Active Jocelyne Naff ENTRY LEVEL PROGRAMMER Esophageal reflux FH COLON CANCER V16.0 Active Jocelyne Naff ENTRY LEVEL PROGRAMMER Family history of malignant neoplasm of gastrointestinal [...] then 1 po q days 2-5 AZITHROMYCIN 74367708827 No Longer Active Rikki Harms PA Active MECLIZINE HCL 25 MG TABS 1 prn MECLIZINE HCL 26305702046 No Longer Active Solomon Alamo MD Active CHERATUSSIN AC SYRP prn as directed GUAIFENESIN- CODEINE SYRP 14451141796 No Longer Active Rikki Harms PA Active MULTIVITAMINS TABS 1qd MULTIPLE VITAMIN 56428660924 No Longer Active Rikki Harms PA Active CLARITIN 10 MG TABS 1prn LORATADINE 49646447936 Active Jocelyne Naff ENTRY LEVEL PROGRAMMER Active ASPIRIN 81 MG TABS 1qd ASPIRIN 23364946609 Active Jocelyne Naff ENTRY LEVEL PROGRAMMER Active OMEPRAZOLE 20 MG CPDR 1 PO Q D OMEPRAZOLE 53422562011 Active Rikki Harms PA Active ZITHROMAX Z-CAROLYN 250 MG TABS 2x1day,4n1ftqz AZITHROMYCIN 61236208509 No Longer Active Jocelyne Naff ENTRY LEVEL PROGRAMMER Active MULTIVITAMINS TABS 1qd MULTIVITAMINS TABS MULTIPLE VITAMIN Inactive CHERATUSSIN AC SYRP prn as directed CHERATUSSIN AC SYRP GUAIFENESIN-CODEINE SYRP Inactive MECLIZINE HCL 25 MG TABS 1 prn MECLIZINE HCL 25 MG TABS 171443 MECLIZINE HCL Inactive ZITHROMAX Z-CAROYLN 250 MG TABS 2x1day,9j0kudm ZITHROMAX Z-CAROLYN 250 MG TABS 2475160 AZITHROMYCIN Inactive ZITHROMAX 250 MG TAB 2 po today, then 1 po q days 2-5 ZITHROMAX 250 MG TAB 1498635 AZITHROMYCIN Inactive Vital Signs Date Name Value [...] % 11.6-14.8 platelet count 360 10^3/MM^3 10*3/mm3 100-536 7416/12/31 leukocyte count, blood 5.3 10^3/MM^3 10*3/mm3 4.6-10.2 [...] % 11.6-14.8 platelet count 222 10^3/MM^3 10*3/mm3 417-562 9678/01/07 leukocyte count, blood 11.7 10^3/MM^3 10*3/mm3 4.6-10.2 [...] % 11.6-14.8 platelet count 191 10^3/MM^3 10*3/mm3 998-844 3618/12/10 hemoglobin, blood 14.8 g/dL 12.0-16.0 hematocrit, blood 44.3 % 36.0-46.0 mean corpuscular volume, RBC 90 fL 80-97 mean corpuscular hemoglobin, RBC 30.1 pg 27.0-31.2 mean corpuscular hemoglobin concentration, RBC 33.5 G/DL % 31.8- 35.4 red blood cell distribution width 14.5 % 11.6-14.8 platelet count 131 10^3/MM^3 10*3/mm3 694-482 7321/12/10 erythrocyte (RBC) count 4.93 10^6/MM^3 10*6/mm3 4.04-5.48 [...] Panel - Chemistry sodium, serum 144 mmol/L 422-276 5139/12/16 potassium, serum 4.5 mmol/L 3.5-5.2 chloride, serum [...] 142-424 Encounters Code Encounter Date Provider Facility CPT-21795 Level 3 Est. Patient 17:31:22 CDT Solomon Alamo MD [facility] CPT-57029 Level 3 Est. Patient 08:02:14 CDT Solomon Alamo MD [facility] CPT-97648 Level 3 Est. Patient 17:23:53 CDT Rikki Stearns [facility] CPT-67976 Level 3 Est. Patient 11:22:41 CDT Darryn Hearn [facility] Procedures Code Procedure Name Date Entry Date Standard Description CPT-77843 Venipuncture Draw Fee 08:18:55 FLIPPING 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 CPT-56246 Venipuncture Draw Fee 08:31:18 FLIPPING 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 CPT-31489 Venipuncture Draw Fee 11:42:52 FLIPPING 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 CPT-59455 Venipuncture Draw Fee 13:26:37 FLIPPING 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 CPT-53847 Venipuncture Draw Fee 09:23:38 FLIPPING 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 CPT-000 Give Appropriate Tetanus Booster 10:23:50 CDT CPT-54958 Bone Density 08:28:45 CDT CPT-50996 Bone Density 11:35:15 CDT CPT-PV Prev. Care Visit 12:19:00 CDT CPT-00006 Venipuncture Draw Fee 15:02:58 CDT
--- OUTSIDE RECORDS SUMMARY | 2018-01-19 08:42 | XMS REPORT | Continuity of Care Document ---
Demographics x Preferred Language Unknown Marital Status Unknown Voodoo Affiliation Unknown Race Unknown Ethnic Group Unknown Author Author [facility] Organization [facility] Address Unknown Phone Unavailable Allergies Active Description Code Type Severity Reaction Onset Reported/Identified Relationship to Patient Clinical Status Yes No known drug allergies 05345217 Drug Allergy N/A N/A Confirmed but inactive Yes Sulfa (Sulfonamide Antibiotics) 491 Drug Allergy N/A N/A Confirmed or Verified Yes Sulfa (Sulfonamide Antibiotics) [id number] Drug Allergy Unknown facial swelling 12/22/2017 Medications There is no data. Problems Date Dx Coded Attending Type Code Diagnosis Diagnosed By 05/10/2017 J20.9 Bronchitis, acute Procedures Code [place] [address] ROUTINE VENIPUNCTURE 10/10/[address] ABDOMEN&PELVIS W/ CONTRAST 10/10/2015 77473 METABOLIC PANEL TOTAL CA 10/10/2015 02788 IMMUNOASSAY, TUMOR, CA 125 10/10/2015 Results Test Result Range CBC WITH DIFF - 11/23/13 00:00 BASO% 0.7 % 0-2 EOS% 4.4 % 0-7.0 HCT 42.1 % 36.9-47.0 HGB 14.1 G/DL 12.0-16.0 LYMPH% 32.8 % 20-40 MCH 29.2 PG 27-31 MCHC 33.5 G/DL 33-37 MCV 87.2 FL 81-99 MONO% 7.9 % 0-10.0 MPV 10.2 FL 7.3-10.4 NEUTRO% 54.2 % 40-70 PLT 312 10^3u 130-400 RBC 4.8 10^6u 4.2-5.4 RDW 13.3 % 11.5-15.5 WBC 9.5 10^3u 4.8-10.8 NEUTRO# 5.1 10^3u 1.5-7.5 LYMPH# 3.1 10^3u 0.9-4.0 MONO# 0.8 10^3u 0-0.8 EOS# 0.4 10^3u 0-0.6 BASO# 0.1 10^3u 0-0.1 CMP - 06/17/14 00:00 ALB 3.9 G/DL 3.5-5 ALP 102 IU/L 32-92 ALT 26 IU/L 12-65 AST 22 IU/L 10-42 BCR 15.7 10-20 BUN 17 MG/DL 7-18 CA 9.3 MG/DL 8.4-10.2 CL 104 MEQ/L 98-107 CO2 21.4 MEQ/L 22-28 CREA 1.08 MG/DL 0.6-1.0 EGFR 51 eGFR >=60 GLU 129 MG/DL 70-105 K 3.5 MEQ/L 3.5-5.1 NA 139 MEQ/L 134-145 OSMSC 280.8 MOSML 280-300 TBIL 0.4 MG/DL 0.1-1.0 TP 7.1 G/DL 6.0-8.3 Albumin/Globulin Ratio 1.2 0-8 Anion Gap 13.6 8-16 UA - 11/23/13 00:00 PH 7.0 4.5-8.0 SG 1.010 1.003-1.035 UABILI NEGATIVE UABLD NEGATIVE UACOLOR STRAW UAGLU NEGATIVE UAKET NEGATIVE UALEUK NEGATIVE UANIT NEGATIVE UAURO 0.2 0-0.2 CLARITY CL PROTEIN NEGATIVE UA WBC NOWBC UA RBC NORBC SQUAMOUS EPITHELIAL CELLS NOSQUAM CBC WITH DIFF - 11/24/13 00:00 BASO% 0.4 % 0-2 EOS% 1.7 % 0-7.0 HCT 40.1 % 36.9-47.0 HGB 13.2 G/DL 12.0-16.0 LYMPH% 36.0 % 20-40 MCH 29.1 PG 27-31 MCHC 32.9 G/DL 33-37 MCV 88.5 FL 81-99 MONO% 8.3 % 0-10.0 MPV 10.1 FL 7.3-10.4 NEUTRO% 53.6 % 40-70 PLT 247 10^3u 130-400 RBC 4.5 10^6u 4.2-5.4 RDW 13.4 % 11.5-15.5 WBC 9.8 10^3u 4.8-10.8 NEUTRO# 5.2 10^3u 1.5-7.5 LYMPH# 3.5 10^3u 0.9-4.0 MONO# 0.8 10^3u 0-0.8 EOS# 0.2 10^3u 0-0.6 BASO# 0.0 10^3u 0-0.1 CMP - 11/24/13 00:00 ALB 3.1 G/DL 3.5-5 ALP 90 IU/L 32-92 ALT 26 IU/L 12-65 AST 19 IU/L 10-42 BCR 13.4 10-20 BUN 13 MG/DL 7-18 CA 8.7 MG/DL 8.4-10.2 CL 113 MEQ/L 98-107 CO2 24.9 MEQ/L 22-28 CREA 0.97 MG/DL 0.6-1.0 EGFR 58 eGFR >=60 GLU 120 MG/DL 70-105 K 4.1 MEQ/L 3.5-5.1 NA 145 MEQ/L 134-145 OSMSC 290.0 MOSML 280-300 TBIL 0.5 MG/DL 0.1-1.0 TP 5.7 G/DL 6.0-8.3 Albumin/Globulin Ratio 1.2 0-8 Anion Gap 7.1 8-16 BMP - 10/10/15 00:00 BCR 29.5 10-20 BUN 23 MG/DL 7-18 CA 9.0 MG/DL 8.4-10.2 CL 104 MEQ/L 98-107 CO2 26.7 MEQ/L 22-28 CREA 0.78 MG/DL 0.6-1.0 EGFR 74 eGFR >=60 GLU 94 MG/DL 70-105 K 4.3 MEQ/L 3.5-5.1 NA 138 MEQ/L 134-145 OSMSC 279.1 MOSML 280-300 Anion Gap 7.3 8-16 CA125 - 10/10/15 00:00 CA125 8 U/mL <35 Methicillin resistant Staphylococcus aureus (MRSA) screening culture - 11:25 MRSA SCREEN RESULT MRSA ISOLATED NRG Encounters ACCT No. Visit Date/Time Discharge Status Pt. Type Provider Facility Loc./Unit Complaint [id number] 01/02/2016 08:06:00 01/02/2016 08:06:00 DIS Outpatient MARIELLE TOLEDO [facility] RAD [id number] 10/10/2015 12:12:00 10/10/2015 12:12:00 DIS Outpatient MARIELLE TOLEDO [facility] RAD [id number] 07/14/2015 08:06:00 07/14/2015 08:06:00 DIS Outpatient MARIELLE TOLEDO [facility] RAD [id number] 04/22/2015 13:06:00 04/23/2015 13:18:00 DIS Outpatient MARIELLE TOLEDO [facility] OBS [id number] 04/22/2015 13:00:00 04/22/2015 13:00:00 CAN Outpatient MARIELLE TOLEDO [facility] OBS [id number] 02/02/2014 09:50:00 02/02/2014 09:50:[address] OLIVAS [facility] RAD [id number] 01/27/2014 08:02:00 01/27/2014 08:02:00 DIS Outpatient ZULEYKAFERMÍN Lai [facility] RAD [id number] 11/23/2013 17:36:00 11/24/2013 10:05:[address] OLIVAS [facility] OBS [id number] 11/23/2013 00:00:00 11/23/2013 00:00:[address] OLIVAS [facility] EMR [id number] 05/08/2015 00:00:00 Document Registration [id number] 02/22/2014 06:45:00 ACT Inpatient MICSEEMA [facility] OPS [id number] 05/08/2013 00:00:00 Document Registration [id number] 01/01/2018 17:52:26 ACT Document Registration [id number] 12/29/2017 11:27:00 ACT Unknown [id number] 12/22/2017 10:56:00 12/22/2017 11:30:00 DIS Outpatient ELIU DPM, R[place] Q [facility] PREOP PLANTAR FASCIAL FIBROMETOSIS [id number] 01/19/2018 10:00:00 PEN Preadmit ELIU DPM, RENO Q [facility] SDC HALLUX RIGIDUS RIGHT
--- NOTE | 2018-01-19 09:24 | Diagnostic Imaging Report ---
INDICATION: Right foot surgery Fluoroscopy was utilized in the operating room during pin placement into the great toe. AP and lateral digital images reveal K-wire which appears to transfix the narrowed first metatarsal phalangeal joint. Overall alignment is unremarkable. IMPRESSION: First metatarsophalangeal joint fusion without evidence of complication. Dictated by: Dictated on workstation # [id number]
[2018-01-19] MEDS ORDERED: LACTATED RINGERS 1,000 ML IV SCH (09:38)
--- NOTE | 2018-01-19 09:38 | Progress Note-Post Operative ---
Post-Operative Progess Note Surgeon (s)/Line Runner (s) Surgeon RENO NOWAK DPM Line Runner: none Pre-Operative Diagnosis Hallux Rigidus right Post-Operative Diagnosis same Procedure & Operative Findings Date of Procedure 01/19/18 Procedure Performed/Findings Cheilectomy with Cartiva implant, right Anesthesia Type General Estimated Blood Loss Estimated blood loss (mL): Minimal Specimens/Packing Specimens Removed Bone and Soft Tissue from right 1st MTPJ RENO NOWAK DPM Jan 19, 2018 9:38 am
[2018-01-19] MEDS ORDERED: CEPH500C PO (09:42)
[2018-01-19] MEDS ORDERED: ACHD5005 PO (09:42)
[2018-01-19] MEDS ORDERED: HYDROcodone/APAP 5 MG/325 MG (LORTAB) TAB PO PRN (09:45)
[2018-01-19] MEDS ORDERED: morphine INJ 10 MG/ML 1ML (SYR OR VIAL) IVP PRN ×2 (10:00)
[2018-01-19] MEDS ORDERED: ONDANSETRON 4 MG/2 ML (SDV) Z0FRAN IVP PRN ×2 (10:00)
[2018-01-19 10:35] VITALS: BP 144/89
--- NOTE | 2018-01-19 10:46 | Anesthesia-General Post-Op ---
General Patient Condition Mental Status/LOC: Same as Preop Cardiovascular: Satisfactory Nausea/Vomiting: Absent Respiratory: Satisfactory Pain: Controlled Complications: Absent Post Op Complications Complications None Follow Up Care/Instructions Patient Instructions None needed. Anesthesia/Patient Condition Patient Condition Patient is doing well, no complaints, stable vital signs, no apparent adverse anesthesia problems. No complications reported per nursing. DES BARKER CRNA Jan 19, 2018 10:46
[2018-01-19 11:05] VITALS: BP 136/66
[2018-01-19 11:35] VITALS: BP 129/70
[2018-01-19 11:50] VITALS: BP 129/70
--- NOTE | 2018-01-19 14:27 | OPERATIVE REPORT ---
DATE OF SERVICE: 01/19/2018 SURGEON: Kalie Nowak DPM. PREOPERATIVE DIAGNOSIS: Hallux rigidus, right. POSTOPERATIVE DIAGNOSIS: Hallux rigidus, right. PROCEDURE: Cheilectomy with implant right first metatarsophalangeal joint. WOUND CLASS: Clean. ANESTHESIA: General. HEMOSTASIS: Pneumatic thigh tourniquet at 300 mmHg. INDICATIONS: This 67-year-old female presents complaining of painful right great toe joint. Conservative therapy was met with unsatisfactory results and the patient was agreeable to surgical intervention after risks and complications were discussed at length. No guarantees were extended to the patient and she is willing to proceed. DESCRIPTION OF PROCEDURE: The patient was brought back to the operating table, placed in a secure supine position. Appropriate time out was performed. General anesthetic was then induced. Pneumatic thigh tourniquet was placed on the right lower extremity over several layers of padding. The right foot was then anesthetized utilizing 10 mL of 0.5% Marcaine and a Britt block. The right foot was then prepped and draped in normal sterile manner. The right leg was then elevated, allowed to exsanguinate after which the tourniquet was inflated to 300 mmHg. Attention was then directed to the dorsal aspect of the right first metatarsophalangeal joint where a 6 cm longitudinal linear incision was created. The incision was deepened in the same plane with great care to identify and retract all vital neurovascular structures. The incision was deepened down to capsule where a longitudinal capsulotomy was performed. This exposed the hypertrophic dorsal, medial and lateral eminence to the first metatarsal head and base of the proximal phalanx. A power sagittal saw was utilized to reduce those bony eminences to the first metatarsal head area followed by a contouring with a power bur. Within the first metatarsophalangeal joint was a soft tissue mass, which was sent for gross and microscopic evaluation. The dorsal osteophytes were also sent for gross and microscopic evaluation. A rongeur was utilized to reduce the spurring to the base of the proximal phalanx. The wound was flushed with copious amounts of normal saline. There was less than 20% of the articular cartilage remaining to the head of the first metatarsal and approximately 30% to the base of the proximal phalanx. It was then decided that the Cartiva joint implant should be implemented. Measured out to be the 10 mm size. Utilizing standard technique for the Cartiva implant a guidewire was administered to the first metatarsal head with the central portion and guided by C-arm proximally. Next, the cannulated drill was introduced, and the cavity created to the head of the first metatarsal. The Cartiva implant was then introduced into this deficit to the first metatarsal head and sat approximately 3 mm proud to the remaining surface of the first metatarsal head, which is what is recommended. The wound was flushed with copious amounts of normal saline throughout the procedure. Excellent range of motion was appreciated at the right first metatarsophalangeal joint with approximately 45 degrees of dorsiflexion. The wound was flushed once again, and closure was then performed in layers. Deep closure was performed with 3-0 Vicryl, superficial with 4-0 Vicryl, skin closure with 4-0 Prolene in a horizontal mattress type stitch. Postoperative injection consisted of 8 mL of 0.5% Marcaine plain as well as 10 mg of dexamethasone. Postoperative dressing consisted of Betadine soaked Adaptic, sterile 4 x 4, sterile Kerlix all secured with a Coban wrap. The patient tolerated the anesthesia and procedure well and was transported from the operating room to the recovery area with vital signs stable and vascular status intact to all digits of the right foot. She was given a prescription for Keflex and Vicodin. She is to follow up in my office in 10 days' period of time or sooner if necessary. Job ID: [id number] DocumentID: [id number] Dictated Date: 01/19/2018 09:51:32 Inspector Fabric Date: 01/19/2018 14:26:26 Dictated By: KALIE NOWAK DPM
== END 2018-01-19 11:50 | disposition home or self-care (01) ==
LOC: SDC 06:25
PROVIDERS: ATTEND Podiatrist Foot & Ankle Surgery
DX: M20.21 Hallux rigidus, right foot (principal); K21.9 Gastro-esophageal reflux disease without esophagitis; J45.909 Unspecified asthma, uncomplicated; E55.9 Vitamin D deficiency, unspecified; G62.9 Polyneuropathy, unspecified; Z79.82 Long term (current) use of aspirin; Z85.3 Personal history of malignant neoplasm of breast; Z85.44 Personal history of malignant neoplasm of other female genital organs; Z85.828 Personal history of other malignant neoplasm of skin